=== PATIENT | female | born 1985 | race Caucasian/White ===

== ENCOUNTER 2016-12-15 10:30 | Outpatient (RCR) | payer MEDICAID, SELFPAY | END 2016-12-20 | disposition home or self-care (01) | LOC: DC 10:30 | PROVIDERS: Family Provider Student in an Organized Health Care Education/Training Program; PCP Student in an Organized Health Care Education/Training Program; Visit Provider Obstetrics & Gynecology | DX: O24.410 Gestational diabetes mellitus in pregnancy, diet controlled (principal); Z3A.00 Weeks of gestation of pregnancy not specified; Z71.3 Dietary counseling and surveillance | CPT/HCPCS: 97802; G0108 ==

== ENCOUNTER 2017-05-26 07:15 | Inpatient (IN) | payer MEDICAID, SELFPAY ==
[2017-05-26] VITALS (8 sets, daily range): BP systolic 101–162; BP diastolic 57–87; PULSE 74–90; RESP 16–20; TEMP 36.1–36.6; O2SAT 93–97; BMI 40.2
[2017-05-26] MEDS: Lactated Ringers 1,000 ML 50 ML IV (07:40)
[2017-05-26] MEDS: Oxytocin 30 units/NS 500 ml 30 UNITS/500 ML IV.SOLN IV (07:50)
[2017-05-26 07:51] LABS: Hemoglobin 11.7 g/dl (12.0-15.0); Mean Corp Hgb Conc 33.4 g/gl (32-36); Mean Corpuscular Hgb 29.2 pg (27.0-32.0); Mean Corpuscular Volume 87.3 fL (81-99); Mean Platelet Vol. 9.9 fl (6.2-12.0); Platelet Count 323 K/mm3 (150-450); RBC Distribution Width CV 14.9 % (11.6-14.6); RBC Distribution Width SD 47.1 fl (35.1-43.9); Red Blood Count 4.01 M/mm3 (4.2-5.4); White Blood Count 20.8 K/mm3 (4.4-11.0)
[2017-05-26 07:52] LABS: Scan Indicated on CBC? Y/N NO
[2017-05-26 08:21] LABS: Bedside Glucose 97 mg/dL (70-110)
[2017-05-26] MEDS: Amnioinfusion- 0.9% NS 1,000 ML IV.SOLN. INTRA-UTER (11:00)
[2017-05-26] MEDS: Oxytocin 10 UNITS/ML Vial IM (11:20)
--- NOTE | 2017-05-26 11:30 | PLAC_PTH ---
PATIENT: TRENA LOC: [facility] U#:[id number] AGE/SX: 31/F ROOM: WP001 RE05/26/[address]: Dr. Leatha Kumar MD : [id number] BED: 1 DIS: 05/28/2017 SPEC #: [id number] RECD: 05/26/17 12:02 STATUS: DAYSI JAIRO #: [id number] MONA: 05/26/17 11:[address]: Leatha Kumar DEPT: SURGICAL PATHOLOGY RECD BY: Umesh Fong ENTERED: 05/26/17 13:35 SP TYPE: PLACENTA OTHR DR: Dr. Bertin Pearson, DO Tissues: Placenta, NOS Procedures: Surgery Specimen Level V HEADER OPERATION: Vaginal delivery PRE-OP DIAGNOSIS: Gestational diabetes, TISSUE SUBMITTED: Placenta MICROSCOPIC DIAGNOSIS Zhong placenta (469 gm): Umbilical cord ? trivascular with no inflammation. Placental membranes ? mild chronic deciduitis. Placental disc ? Shane-Salas change and mildly increased intraparenchymal microcalcifications. AM:nuris 05/27/17 MICROSCOPIC DESCRIPTION Slides are reviewed. GROSS DESCRIPTION SPECIMEN: PLACENTA / CLINICAL INFORMATION: A. Weight: 3.227 kg B. Gestational Age: 39 weeks C. Sex: Male PLACENTAL WEIGHT (POST FIXATION): 469 gm PLACENTAL DIMENSIONS: 18 x 13 x 2.8 cm PLACENTAL SHAPE: Usual ovoid PLACENTAL WEIGHT FOR GESTATIONAL AGE: Within 10-99th percentile MEMBRANES - Present A. Insertion: Marginal B. Site of rupture from edge: 4 cm from edge of placental disc C. Color of membrane: [place] D. Abnormalities: None UMBILICAL CORD ? Present. The cord is received in two fragments. The largest fragment contains a true knot. A. Color: [place] B. Insertion: Near central C. Length: 46 cm D. Diameter: 1.3 cm E. Number of vessels: Three F. Abnormalities: None PLACENTAL DISC - Present A. Color of surface: [place] B. surface abnormalities: None C. Maternal cotyledons: Intact with minimal tears D. Attached retro placental clot: No clot E. Cut surface: Dark red and spongy F. Lesions: None G. Separate clot: Absent SECTIONS SUBMITTED: 1. Membrane roll and umbilical cord ( end notched) 2. Placental disc, and maternal surfaces 3. Placental disc, and maternal surfaces 4. Placental disc, and maternal surfaces AM:nuris 05/26/17 TC:3 CPT: 52549
--- NOTE | 2017-05-26 11:45 | PCM.HP.OB ---
History Date of Admission: 05/26/17 Final JENNIFER: 06/02/17 Final JENNIFER Source: US <20 weeks Gestational age: 39 Weeks and 0 Days History of this : 31-year-old 7 para 5 AB 1 female presents at 39 weeks gestation with EDC of 06/02/2017 by LMP confirmed by first trimester ultrasound presents for induction of labor due to gestational diabetes. She is class A1 gestational diabetic, but she has had some elevated blood sugars and has not been lately adherent to the diabetic diet. She denies any headache, visual changes, or epigastric pain. He had good movements and irregular contractions. Past medical history is significant for obesity, nicotine dependence, and vomiting of , gestational diabetes class A1, history of depression, headaches. She also has a history of abnormal Pap smears and gestational hypertension with 1 of her previous pregnancies. Family medical history is noncontributory. Obstetrical history: She has had 5 previous vaginal deliveries and 1 spontaneous miscarriage largest infant was 9 lbs. 1 oz. without complications. Surgical history: D&C for miscarriage Allergies Bleach (Sodium Hypochlorite) Allergy (Verified 07/12/16 09:06) Hives citalopram hydrobromide [From Celexa] Allergy (Verified 07/12/16 09:06) Mood mood changes amoxicillin [Amoxicillin] Adverse Reaction (Verified 07/12/16 09:06) Rash Current Medications Acetaminophen (Tylenol) 325 - 650 mg PO Q4H PRN PRN PRN Reason: PAIN OR FEVER >100.4F Al Hydroxide/Mg Hydroxide (Mylanta Ii) 15 - 30 ml PO Q4H PRN PRN PRN Reason: INDIGESTION Citric Acid/Sodium Citrate (Bicitra) 30 ml PO UD PRN Dextrose (D50w Syringe) 0 gm IV X1 PRN; Protocol PRN Reason: Hypoglycemia Glucagon () 1 mg IM .X1 PRN PRN Reason: Hypoglycemia Lactated Ringer's () 1,000 mls @ 50 mls/hr IV .Q20H [facility] Last Admin: 05/26/17 07:40 Dose: 50 mls/hr Oxytocin/Sodium Chloride () 30 units in 500 mls @ 1 mls/hr IV .Q500H [facility] Last Admin: 05/26/17 07:50 Dose: 1 mls/hr Naloxone HCl 4 mg/ Dextrose 504 mls @ 0 mls/hr IV PRN PRN; Protocol PRN Reason: TO MAINTAIN RR>10 Nalbuphine HCl (Nubain) 5 - 10 mg IV Q3H PRN PRN PRN Reason: PAIN (4-10/10) Nalbuphine HCl (Nubain) 5 mg IV Q3H PRN PRN Reason: ITCHING Stop: 05/27/17 11:00 Naloxone HCl (Narcan) 0.2 mg IV Q1M PRN PRN Reason: RR<10 AND PT UNRESPONSIVE Stop: 05/27/17 11:00 Ondansetron HCl (Zofran) 4 mg IV Q8H PRN PRN PRN Reason: NAUSEA Promethazine HCl (Phenergan (Ll)) 6.25 - 12.5 mg IV Q4H PRN PRN; Protocol PRN Reason: IF NAUSEA PERSISTS Sodium Chloride () 5 - 15 ml IV UD KEELY Smoking Status: Current every day smoker Alcohol: None Drug Use: none Number of Fetus(es): 1 Review of Systems Constitutional: Denies: Chills, Fever Eyes: Denies: Blurred vision Cardiovascular: Denies: Chest Pain Respiratory: Denies: Cough Gastrointestinal: Reports: Abdominal Pain Skin: Denies: Rash Physical Exam General: Alert, Cooperative, No apparent distress Cardiovascular: Regular rate Lungs: Normal air movement Abdomen: Soft, Non Tender, Non-Distended, Appropriate for Gestational Age Extremities:: Other - edema 1+ Estimated gestational size: Appropriate for gestational size Presentation: Cephalic Cervix Dilation (cm): 3 - arom w/ moderate clear fluid Station: -2 Effacement (%): 70 Assessment/Plan 81-year-old 7 para 5 AB 1 female at 39 weeks gestation for induction due to gestational diabetes. May weight is less than 4500 g and pelvis is clinically adequate to expect vaginal delivery. Will proceed with Pitocin and AROM induction of labor. Epidural if desires. Desires sterilization. Will see with OR team and manager immunology if we will be able to accommodate this today after delivery.
--- NOTE | 2017-05-26 11:52 | HP.PCM_ITS ---
History Date of Admission: 05/26/17 Final JENNIFER: 06/02/17 Final JENNIFER Source: US <20 weeks Gestational age: 39 Weeks and 0 Days History of this : 31-year-old 7 para 5 AB 1 female presents at 39 weeks gestation with EDC of 06/02/2017 by LMP confirmed by first trimester ultrasound presents for induction of labor due to gestational diabetes. She is class A1 gestational diabetic, but she has had some elevated blood sugars and has not been lately adherent to the diabetic diet. She denies any headache, visual changes, or epigastric pain. He had good movements and irregular contractions. Past medical history is significant for obesity, nicotine dependence, and vomiting of , gestational diabetes class A1, history of depression, headaches. She also has a history of abnormal Pap smears and gestational hypertension with 1 of her previous pregnancies. Family medical history is noncontributory. Obstetrical history: She has had 5 previous vaginal deliveries and 1 spontaneous miscarriage largest infant was 9 lbs. 1 oz. without complications. Surgical history: D&C for miscarriage Allergies Bleach (Sodium Hypochlorite) Allergy (Verified 07/12/16 09:06) Hives citalopram hydrobromide [From Celexa] Allergy (Verified 07/12/16 09:06) Mood mood changes amoxicillin [Amoxicillin] Adverse Reaction (Verified 07/12/16 09:06) Rash Current Medications Acetaminophen (Tylenol) 325 - 650 mg PO Q4H PRN PRN PRN Reason: PAIN OR FEVER >100.4F Al Hydroxide/Mg Hydroxide (Mylanta Ii) 15 - 30 ml PO Q4H PRN PRN PRN Reason: INDIGESTION Citric Acid/Sodium Citrate (Bicitra) 30 ml PO UD PRN Dextrose (D50w Syringe) 0 gm IV X1 PRN; Protocol PRN Reason: Hypoglycemia Glucagon () 1 mg IM .X1 PRN PRN Reason: Hypoglycemia Lactated Ringer's () 1,000 mls @ 50 mls/hr IV .Q20H [facility] Last Admin: 05/26/17 07:40 Dose: 50 mls/hr Oxytocin/Sodium Chloride () 30 units in 500 mls @ 1 mls/hr IV .Q500H [facility] Last Admin: 05/26/17 07:50 Dose: 1 mls/hr Naloxone HCl 4 mg/ Dextrose 504 mls @ 0 mls/hr IV PRN PRN; Protocol PRN Reason: TO MAINTAIN RR>10 Nalbuphine HCl (Nubain) 5 - 10 mg IV Q3H PRN PRN PRN Reason: PAIN (4-10/10) Nalbuphine HCl (Nubain) 5 mg IV Q3H PRN PRN Reason: ITCHING Stop: 05/27/17 11:00 Naloxone HCl (Narcan) 0.2 mg IV Q1M PRN PRN Reason: RR<10 AND PT UNRESPONSIVE Stop: 05/27/17 11:00 Ondansetron HCl (Zofran) 4 mg IV Q8H PRN PRN PRN Reason: NAUSEA Promethazine HCl (Phenergan (Ll)) 6.25 - 12.5 mg IV Q4H PRN PRN; Protocol PRN Reason: IF NAUSEA PERSISTS Sodium Chloride () 5 - 15 ml IV UD KEELY Smoking Status: Current every day smoker Alcohol: None Drug Use: none Number of Fetus(es): 1 Review of Systems Constitutional: Denies: Chills, Fever Eyes: Denies: Blurred vision Cardiovascular: Denies: Chest Pain Respiratory: Denies: Cough Gastrointestinal: Reports: Abdominal Pain Skin: Denies: Rash Physical Exam General: Alert, Cooperative, No apparent distress Cardiovascular: Regular rate Lungs: Normal air movement Abdomen: Soft, Non Tender, Non-Distended, Appropriate for Gestational Age Extremities:: Other - edema 1+ Estimated gestational size: Appropriate for gestational size Presentation: Cephalic Cervix Dilation (cm): 3 - arom w/ moderate clear fluid Station: -2 Effacement (%): 70 Assessment/Plan 81-year-old 7 para 5 AB 1 female at 39 weeks gestation for induction due to gestational diabetes. May weight is less than 4500 g and pelvis is clinically adequate to expect vaginal delivery. Will proceed with Pitocin and AROM induction of labor. Epidural if desires. Desires sterilization. Will see with OR team and market relationship manager if we will be able to accommodate this today after delivery.
--- NOTE | 2017-05-26 11:52 | PCM.OB.VAG ---
Vaginal Delivery Maternal Presentation: Medically Indicated Induction Method of Induction: Pitocin, Amniotomy Medical Reason for Induction: - - Gest DM Amniotic Membrane Rupture Type: Artificial Amniotic Fluid Description: Clear Final JENNIFER: 06/02/17 Final JENNIFER Source: US <20 weeks Gestational age: 39 Weeks and 0 Days Date of Procedure: 05/26/17 Pre-Operative Diagnosis: labor, GDM A1 Post-Operative Diagnosis: same Surgery/ Procedure Performed: Spontaneous Vaginal Delivery Type of Anesthesia: Epidural Description of Procedure: A vigorous male infant was delivered [CAROLINA] over intact perineum.. The remainder the infant was delivered with maternal pushing and gentle traction only in less than 15 seconds after repositioning the maternal legs. The cord was clamped and cut [after 1 minute]. The was attended to by the waiting nursing staff. The placenta was delivered spontaneously and intact. A true knot ?1 in the cord was visible. A section of cord gases were clamped and cord glasses were collected. The cervix and vagina were intact. Sponge and needle counts were correct. A vaginal sweep was completed by me. Presentation: CAROLINA Placental Delivery Description: Spontaneous Placenta Disposition: [facility] Cord Vessel Description: 3 Vessels Cord Entanglement: True Knot(s) - x1 Drain: Dunbar to straight drain Estimated Blood Loss: 300cc A gender: Male Episiotomy Description: None Laceration: None Medications given after delivery: IV Pitocin Complications: None
[2017-05-26 14:36] LABS: Bedside Glucose 89 mg/dL (70-110)
[2017-05-26] MEDS: Bupivacaine Mpf 0.5% 30 ML VIAL (17:18)
--- NOTE | 2017-05-26 17:26 | PCM.OPRPT ---
Report of Operation Date of Procedure: 05/26/17 Pre-Operative Diagnosis: sterilization request Post-Operative Diagnosis: same Surgery/Procedure Performed:: tubal ligation with filshie clips Description of Surgical Findings:: normal tubes and ovaries electroplating worker: alex Recio Type of Anesthesia:: Epidural/Supplement Anesthesiologist: Tanmay Awan Special Medications: none Specimen's removed: none Drains: none Estimated Blood Loss (mL): 10 Fluids Replaced: 400 cc lR Description of Procedure: Patient was taken to the operating room where she is prepped and draped in dorsal supine position epidural was dosed. She was given some supplemental medications and her IV and half percent Marcaine was used to infiltrate the skin under the umbilicus. 4 cm incision was made under the umbilicus in a U-shaped fashion and carried through to underlying layer fascia with scalpel and Bovie. The fascia was grasped with clamps and tented up and entered sharply with the scalpel. The incision was extended laterally and it was tagged with 0 Vicryl sutures. The patient was placed in Trendelenburg and tilted to one side and the right tube was identified and followed out to the fimbriated end. It was then tented up with a Leming clamp and the Filshie clip was placed across the tubal lumen ensuring that the entire tubal lumen was contained within the clip. It was clamped down slowly and steadily and gentle pressure was held for 5 seconds and then the clip applicator was removed gently. Adequate placement was noted and the site was hemostatic. The procedure is performed on the contralateral side and again excellent placement was noted is near to the cornual insertion of the tube is possible. The site was hemostatic. The fascia was then closed with 0 Vicryl suture in a running standard fashion. Subcutaneous tissue was hemostatic and the skin was closed in subcuticular fashion. I performed the entire procedure with assistance. The needle counts were correct. Steri-Strips and bandage were placed on by the surgical scrub the patient was taken to the recovery room in stable condition. Grafts/Implants Used: filshie clips - Complications none - Admit VTE Documentation VTE Present on Admission: No VTE Mechan Device Prophylaxis: SCD's VTE Pharm Prophylaxis ordered?: No Reason prophylaxis not ordered:: Procedure Not Indicated
--- NOTE | 2017-05-26 17:32 | OP.PCM_ITS ---
Report of Operation Date of Procedure: 05/26/17 Pre-Operative Diagnosis: sterilization request Post-Operative Diagnosis: same Surgery/Procedure Performed:: tubal ligation with filshie clips Description of Surgical Findings:: normal tubes and ovaries outpatient surgery rn: alex Recio Type of Anesthesia:: Epidural/Supplement Anesthesiologist: Tanmay Awan Special Medications: none Specimen's removed: none Drains: none Estimated Blood Loss (mL): 10 Fluids Replaced: 400 cc lR Description of Procedure: Patient was taken to the operating room where she is prepped and draped in dorsal supine position epidural was dosed. She was given some supplemental medications and her IV and half percent Marcaine was used to infiltrate the skin under the umbilicus. 4 cm incision was made under the umbilicus in a U- shaped fashion and carried through to underlying layer fascia with scalpel and Bovie. The fascia was grasped with clamps and tented up and entered sharply with the scalpel. The incision was extended laterally and it was tagged with 0 Vicryl sutures. The patient was placed in Trendelenburg and tilted to one side and the right tube was identified and followed out to the fimbriated end. It was then tented up with a Ami clamp and the Filshie clip was placed across the tubal lumen ensuring that the entire tubal lumen was contained within the clip. It was clamped down slowly and steadily and gentle pressure was held for 5 seconds and then the clip applicator was removed gently. Adequate placement was noted and the site was hemostatic. The procedure is performed on the contralateral side and again excellent placement was noted is near to the cornual insertion of the tube is possible. The site was hemostatic. The fascia was then closed with 0 Vicryl suture in a running standard fashion. Subcutaneous tissue was hemostatic and the skin was closed in subcuticular fashion. I performed the entire procedure with assistance. The needle counts were correct. Steri-Strips and bandage were placed on by the surgical scrub the patient was taken to the recovery room in stable condition. Grafts/Implants Used: filshie clips - Complications none - Admit VTE Documentation VTE Present on Admission: No VTE Mechan Device Prophylaxis: SCD's VTE Pharm Prophylaxis ordered?: No Reason prophylaxis not ordered:: Procedure Not Indicated
[2017-05-26] MEDS: oxyCODONE 5 MG Tablet 10 MG PO (19:00)
--- NOTE | 2017-05-26 20:49 | NURSING ---
Dr. Kumar updated on elevated bp's x3, and pt wanting to go outside to smoke. Orders given to give Labatelol 100mg PO and then recheck bp in 30 mins, if stable ok to go outside to smoke.
[2017-05-26] MEDS: Labetalol 100 MG Tablet PO (20:53)
--- NOTE | 2017-05-26 23:07 | DCINST_ITS ---
Discharge Diet: No Restrictions Discharge Activity: Return to Normal Activity, May not drive while taking narcotic pain medications., May Shower May shower in (days): 0 May resume sexual activity in: 4-6 weeks Additional Activity Instructions:: Nothing in the vagina for 4-6 weeks. You may return to work/school in 6 weeks. Call your doctor if your incision/area has: Continuous Slow Oozing, Sudden Increased Bleeding, Increased Pain/ Swelling, Increased Redness, Foul Smelling Discharge Remove Dressing in (days):: 7 - steri strips off in 7 days Cleanse incision/area with: Soap & Water Additional Instructions: If you experience any of the following, contact your healthcare provider. * Bleeding that soaks a pad every hour for 2 hours * Fever 100.4 or higher * Unrelieved incision or abdominal pain * Swelling, redness, discharge or bleeding from your incision or episiotomy site * Your incision begins to separate * Problems urinating (including inability to urinate or burning while urinating) . * Visual changes * Severe headache * Flu-like symptoms * Pain or redness in one of both of your breasts * Pain, warmth, tenderness or swelling in your legs, especially the calf area * Frequent nausea and vomiting * Symptoms of depression or anxiety If you experience any of the following, call 911 or go to the nearest Emergency Room. * Chest pain * Problems breathing * Seizure activity * Partial or complete paralysis of a body part, slurred speech, weakness or drooping of the face, or a sudden inability to walk or hold your balance Allergies/Adverse Reactions: Allergies Bleach (Sodium Hypochlorite) Allergy (Verified 07/12/16 09:06) Hives citalopram hydrobromide [From Celexa] Allergy (Verified 07/12/16 09:06) Mood mood changes amoxicillin [Amoxicillin] Adverse Reaction (Verified 07/12/16 09:06) Rash Medications to take at Discharge Fluoxetine HCl 40 mg PO DAILY 06/30/16 Propranolol HCl [Inderal LA (Beta Vandana)] 60 mg PO DAILY 06/30/16 Folic Acid 05/26/17 Ibuprofen [Motrin] 600 mg PO Q6H PRN #60 tab 05/26/17 Oxycodone HCl/Acetaminophen [Percocet 5/325] 1 - 2 tablet PO Q8 PRN 4 Days #14 tablet 05/26/17 The following prescriptions were given: Oxycodone HCl/Acetaminophen [Percocet 5/325] 1 - 2 tablet PO Q8 PRN 4 Days #14 tablet PRN Reason: Pain Ibuprofen [Motrin] 600 mg PO Q6H PRN #60 tab PRN Reason: Pain Please Follow Up With: Leatha Kumar MD - [phone] When: Call to make an appointment with your doctor in 6 weeks. If you had elevated Blood Pressure or 4th degree laceration you will need to be seen in 2 weeks. Primary Care Physician: Bertin Pearson DO [Primary Care Provider] -
[2017-05-27 00:17] VITALS: BP 133/64
[2017-05-27 02:00] VITALS: BP 130/60; PULSE 79; RESP 20; TEMP 36.6
[2017-05-27] MEDS: Senna/Docusate Sodium 1 Tablet PO (03:23)
[2017-05-27] MEDS: oxyCODONE 5 MG Tablet 10 MG PO ×4 (03:24→22:11)
--- NOTE | 2017-05-27 09:09 | PN.OBGYN_ITS ---
Subjective: pain controlled, average lochia, no N/V - Physical Exam General: Alert, Cooperative, No apparent distress Abdomen: Soft, Distended - moderately, Tender - appropriately Extremities: Edema - 1+ Skin: Incision - bandage clean, dry and intact Vital Signs Temp Pulse Resp BP Pulse Ox 97.9 F 79 20 H 130/60 H 97 05/27/17 02:00 05/27/17 02:00 05/27/17 02:00 05/27/17 02:00 05/26/17 19:36 Oxygen Delivery Method Room Air Weight: 116.573 kg Body Mass Index (BMI) 40.2 Intake and Output for Last 24 Hours 05/25/17 05/26/17 05/27/17 23:59 23:59 23:59 Intake Total 1200 / 1200 Output Total 950 / 950 Balance 250 / 250 Laboratory Tests Past 24 Hrs 05/26/17 07:40 Blood Type O POSITIVE Antibody Screen NEGATIVE POC Glucose 05/26/17 14:30 POC Glucose 89 Assessment/Plan POD#1 s/p tubal, PPD#1 s/p routine care infant in [facility] for hypogylcemia
[2017-05-27 10:05] VITALS: BP 143/89; PULSE 91; RESP 20; TEMP 35.9
[2017-05-27] MEDS: Labetalol 100 MG Tablet PO ×2 (10:05→22:10)
[2017-05-27] MEDS: FLUoxetine 20 MG Capsule 40 MG PO (10:06)
[2017-05-27] MEDS: Naproxen 250 MG Tablet PO (11:30)
[2017-05-27 14:05] VITALS: BP 133/83; PULSE 89; TEMP 35.9
[2017-05-27 15:48] LABS: Pathology Specimen OB SEE PATHOLOGY REPORT
[2017-05-27 20:45] VITALS: BP 138/65; PULSE 84; RESP 18; TEMP 36.4; O2SAT 97
[2017-05-28 02:10] VITALS: BP 140/58; PULSE 89; RESP 18; TEMP 36.4; O2SAT 97
--- NOTE | 2017-05-28 07:32 | DCINST_ITS ---
Discharge Diet: No Restrictions Discharge Activity: Return to Normal Activity, May not drive while taking narcotic pain medications., May Shower May shower in (days): 0 May resume sexual activity in: 4-6 weeks Additional Activity Instructions:: Nothing in the vagina for 4-6 weeks. You may return to work/school in 6 weeks. Call your doctor if your incision/area has: Continuous Slow Oozing, Sudden Increased Bleeding, Increased Pain/ Swelling, Increased Redness, Foul Smelling Discharge Remove Dressing in (days):: 7 - steri strips off in 7 days Cleanse incision/area with: Soap & Water Additional Instructions: If you experience any of the following, contact your healthcare provider. * Bleeding that soaks a pad every hour for 2 hours * Fever 100.4 or higher * Unrelieved incision or abdominal pain * Swelling, redness, discharge or bleeding from your incision or episiotomy site * Your incision begins to separate * Problems urinating (including inability to urinate or burning while urinating) . * Visual changes * Severe headache * Flu-like symptoms * Pain or redness in one of both of your breasts * Pain, warmth, tenderness or swelling in your legs, especially the calf area * Frequent nausea and vomiting * Symptoms of depression or anxiety If you experience any of the following, call 911 or go to the nearest Emergency Room. * Chest pain * Problems breathing * Seizure activity * Partial or complete paralysis of a body part, slurred speech, weakness or drooping of the face, or a sudden inability to walk or hold your balance Allergies/Adverse Reactions: Allergies Bleach (Sodium Hypochlorite) Allergy (Verified 07/12/16 09:06) Hives citalopram hydrobromide [From Celexa] Allergy (Verified 07/12/16 09:06) Mood mood changes amoxicillin [Amoxicillin] Adverse Reaction (Verified 07/12/16 09:06) Rash Medications to take at Discharge Fluoxetine HCl 40 mg PO DAILY 06/30/16 Propranolol HCl [Inderal LA (Beta Vandana)] 60 mg PO DAILY 06/30/16 Folic Acid 05/26/17 Ibuprofen [Motrin] 600 mg PO Q6H PRN #60 tab 05/26/17 Oxycodone HCl/Acetaminophen [Percocet 5/325] 1 - 2 tablet PO Q8 PRN 4 Days #14 tablet 05/26/17 Ibuprofen [Motrin] 600 mg PO Q6H PRN #60 tab 05/28/17 Oxycodone HCl/Acetaminophen [Percocet 5/325] 1 - 2 tablet PO Q6H PRN PRN 3 Days #12 tablet 05/28/17 The following prescriptions were given: Oxycodone HCl/Acetaminophen [Percocet 5/325] 1 - 2 tablet PO Q6H PRN PRN 3 Days #12 tablet PRN Reason: Pain Oxycodone HCl/Acetaminophen [Percocet 5/325] 1 - 2 tablet PO Q8 PRN 4 Days #14 tablet PRN Reason: Pain Ibuprofen [Motrin] 600 mg PO Q6H PRN #60 tab PRN Reason: Pain Ibuprofen [Motrin] 600 mg PO Q6H PRN #60 tab PRN Reason: Pain Please Follow Up With: Leatha Kumar MD - [phone] When: Call to make an appointment with your doctor in 6 weeks. If you had elevated Blood Pressure or 4th degree laceration you will need to be seen in 2 weeks. Primary Care Physician: Bertin Pearson DO [Primary Care Provider] -
--- NOTE | 2017-05-28 07:32 | PCM.PN.OB ---
Subjective: pain controlled, average lochia, - Physical Exam General: Alert, Cooperative, No apparent distress Abdomen: Soft, Distended - moderately, Tender - appropriately Extremities: Edema - 1+ Skin: Incision - bandage clean, dry and intact Vital Signs Temp Pulse Resp BP Pulse Ox 97.5 F L 89 18 140/58 H 97 05/28/17 02:10 05/28/17 02:10 05/28/17 02:10 05/28/17 02:10 05/28/17 02:10 Oxygen Delivery Method Room Air Weight: 116.573 kg Body Mass Index (BMI) 40.2 Intake and Output for Last 24 Hours 05/26/17 05/27/17 05/28/17 23:59 23:59 23:59 Intake Total 1200 / 1200 Output Total 950 / 950 Balance 250 / 250 Assessment/Plan POD#2 s/p tubal PPD#2 s/p doing well routine care d/c to [facility]
[2017-05-28] MEDS: oxyCODONE 5 MG Tablet 10 MG PO (08:07)
[2017-05-28 08:18] VITALS: BP 141/88; PULSE 82; RESP 16; TEMP 36.2
[2017-05-28] MEDS: FLUoxetine 20 MG Capsule 40 MG PO (10:58)
[2017-05-28] MEDS: Propranolol LA 60 MG Capsule PO (10:58)
[2017-05-28 14:30] VITALS: BP 154/77; PULSE 83; RESP 18; TEMP 36.6
--- NOTE | 2017-05-28 16:00 | CASEMGMT ---
Social Work - Labor and Delivery Unit Social Work Assessment completed today. Reason for referral: Verbal referral from nursing staff regarding mother of baby (MOB) history of depression, currently on medication. Second notification from nursing staff that MOB triggered need for PHQ9 due to answers given on PHQ2. PSYCHOSOCIAL HISTORY: Presenting situation: Patient/mother of baby (MOB) delivered 6th baby at [facility]. MOB with a PHQ9 score of 8 at this time, with a no answer to thoughts of suicide. MOB's baby, Daniel Nickerson, was admitted to [facility] after for hypoglycemia issues. History obtained from: Medical record and MOB. Educated MOB that this senior writer is the social work nurse for the labor and delivery unit at the hospital of delivery, and for continuity of care for families on the [facility] this senior writer also provides the social work to the [facility]. Educated MOB that assessment information being gathered for both [facility] and [facility] Household composition: MOB, father of baby (FOB) Gonzalez Portillo, and Daniel's 5 older siblings. MOB reports home situation is safe and adequate. Patient's parent/guardian status: MOB (age 33) and FOB (age 37) have been together for 3 years. MOB denies any safety concerns in this marriage, denies any form of abuse. Daniel is the second child for MOB and FOB together. Minor children in the home are: Cate (born 10/1999) Channing (born 2004) Tayler (born 12/2005) Lisbet (born 06/2008) Jeffry Portillo (born 12/29/2014) The 4 older children have the same father, and go to visit their father every other weekend. Medical History: MOB is G7, P5 to 6 after delivering Daniel. History of one previous miscarriage in 2003. care started at 10 weeks gestation. Daniel was born weighing 7 pounds 2 ounces, with Apgars of 6 and 8 at 1 and 5 minutes of life. MOB with gestational diabetes this . Educational Status: MOB reports graduated from high school, denies any problems with learning, reading, or writing. 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 Supplies: MOB reports to have needed supplies including crib, bassinet, car seat, formula, bottles, clothing, diapers, and wipes. Childcare/Caregiver(s): MOB will be primary caregiver to . Transportation: No reported issues. Programs/Agencies Involved: S for food and medical. Involved with WIC. Denies any current or past involvement with children services. History: The counseling center for counseling, not current. Behavioral Health Issues: MOB reports history of depression and anxiety since 2008. MOB admits to depression after each , so knows there is strong likelihood of this happening again. MOB denies any history of suicidal thoughts, plans, or attempts; denies any such thoughts during or since delivery. MOB reports has tried counseling in the past, but did not find this really to be helpful. MOB admits has been having some depression during this , that this was the hardest for MOB of all the pregnancies. MOB currently on Prozac and Buspar, and plans to remain on this medication in the period. MOB reports to feel currently managing depression and anxiety. MOB denies any substance use or abuse issues. MOB reports to have a sister who is a heroin addict, which reinforces to MOB importance of not getting involved in substance use. Family Stressors: MOB is now a mother to 6 children, reports limited support from family and friend, but that does get some support from FOB and MOB's older children. MOB reports to have stresses at times, vague as to what stressors may be, but denies any current stressors at this time. MOB indicates that times for self is one thing that is limited for MOB, usually getting time alone each day when the kids go to bed. Support Systems: MOB reports FOB is a support, and MOB's older children are a support. MOB reports there are family members around, but MOB does not rely on them. MOB reports to have a neighbor who has also offered to help out. Assessment MOB cooperative with social work visit, answered questions. MOB acknowledges to have a limited support, and indicates time is something that MOB doesn't perceive to have, to do extra things for self. MOB reports to feel managing her depression at this time, reports plan to stay on medication, as well denies any thoughts of suicide. MOB reports depression history came in the form of feeling overwhelmed and usually lasted for a couple of months, but depends on what else is going on at the time in personal life. At this time MOB is not reporting any new or current stressors, other than worry for Baby Daniel and when may be able to go home. MOB did hold appropriate eye contact, appropriate affect to content. MOB reports receptivity to having some information on community resources, and did appear interested when social work nurse educated MOB to some online resources and supports for depression, which MOB could access from home and not have to worry about childcare. MOB not interested in referral to counseling at this time. Plan Will follow up with MOB on 05-29-17 with resource information, as MOB remains in a courtesy room on the labor and delivery unit while baby is hospitalized in the [facility]. -SNEHA Ross, INSURANCE HEALTHCARE CONSULTANT
--- NOTE | 2017-05-29 12:10 | CASEMGMT ---
Social Work - Labor and Delivery Unit Reason for follow-up:Communication with patient/mother of baby (MOB) Martina Nickerson Summary of Family/Staff/Agency Contact: Followed up with MOB to provide resources for community support after discharge. Met with MOB at infant's bedside to discuss and review local mom's support group, community action program services, and home based therapy services through [email or web address], should MOB ever want to pursue counseling again. Assessment: MOB holding baby, attentive, smiling at baby, and working on feeding baby a bottle. MOB with appropriate affect and mood to content. MOB expressed interest in resources given today. MOB denies other needs, reports hope for baby to be discharged later today, and reports to feel ready for discharge. Plan: Continue to follow patient and family, No further intervention indicated MOB has been given resource lists for services in Psychiatric MOB has been given a packet on depression and services/support for such Information on home based therapy options locally Information on home based early intervention services for baby and toddler sibling; moms support group information also given -SNEHA Ross, POLICE GUARD
== END 2017-05-28 14:30 | disposition home or self-care (01) | DRG 374 ==
PROVIDERS: Admitting Provider Obstetrics & Gynecology; Family Provider Student in an Organized Health Care Education/Training Program; PCP Student in an Organized Health Care Education/Training Program; Visit Provider Obstetrics & Gynecology
PROC: 0UL70ZZ Occlusion of Bilateral Fallopian Tubes, Open Approach (ICD-10-PCS; principal; 2017-05-26 15:45)
DX: O99.334 Smoking (tobacco) complicating childbirth (principal); Z68.41 Body mass index [BMI] 40.0-44.9, adult; O24.429 Gestational diabetes mellitus in childbirth, unspecified control; F41.9 Anxiety disorder, unspecified; O99.344 Other mental disorders complicating childbirth; O99.214 Obesity complicating childbirth; O69.2XX0 Labor and delivery complicated by other cord entanglement, with compression, not applicable or unspecified; Z3A.39 39 weeks gestation of pregnancy; Z37.0 Single live birth; Z79.899 Other long term (current) drug therapy
CPT/HCPCS: 59025; 59050; 82962; 85027; 86850; 86900; 88307; 99218; J7030; J7120; G0378; J2405

== ENCOUNTER 2017-12-15 13:03 | Outpatient (RCR) | payer MEDICAID, SELFPAY ==
--- NOTE | 2017-12-15 14:03 | HP.PTEVAL ---
Patient's Visit Information JEAN MARIE JERONIMO is a 32 year old F referred to Physical Therapy by Mireya Burton NP with a diagnosis of TENDONITIS. Date of Evaluation: 12/15/17 Physical Therapist: Megan Clemens - Visit Plan Frequency: 2-3x /Week Duration: 4-6 Weeks Plan: POSTURE CORRECTION/STRENGTHENING, INSTRUCTION IN APPROPRIATE BODY MECHANICS AND ACTIVITY MODIFICATIONS. RIGHT UE ROM, STRETCHING AND STRENGTHENING. HEP INSTRUCTION. - Subjective Subjective: Diagnosis: RIGHT ARM TENDONITIS. 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 Disability: NO - FILED THOUGH FOR OTHER HEALTH ISSUES. Present symptoms: RIGHT SHOULDER PAIN THAT SHOOTS DOWN ARM TO FOREARM (NOT HAND) AND UP INTO NECK - ITS HORRIBLE. RIGHT HAND GOES TO SLEEP. WHOLE RIGHT UE GOES NUMB. Present since: ABOUT 6 MONTHS AGO. Pain Scale: Worst - 8/10Least - 5/10. Currently: 09/29. Commenced as a result of: NO APPARENT REASON. WOKE UP WITH IT ONE MORNING AND PATIENT REPORTS SHE THOUGHT SHE JUST SLEPT ON IT WRONG. Symptoms at onset: RIGHT SHOULDER. Worse: USING IT FOR ANYTHING, DRIVING/USING THE STEARING WHEEL. LIFTING, PUSHING, PULLING, EVEN LETTING ARM HANG. Better: NOTHING. Disturbed sleep: YES. Previous history/Previous treatment: NO HISTORY OF RIGHT ARM PROBLEMS IN THE PAST. PATIENT ALSO DENIES ANY HISTORY OF NECK PROBLEMS OR TREATMENTS. Dizziness: SOMETIMES. Tinnitis: A LITTLE BIT. Nausea: SOMETIMES - PATIENT REPORTS IT IS MAYBE FROM SOME OF HER MEDICATIONS. ALSO WHEN HER ARM PAIN GETS BAD IT MAKES HER SICK TO HER STOMACH. Difficulty Swollowing: NO. Gait: INDEP GAIT WITHOUT ASSISTIVE DEVICES. Accidents: NO. Unexplained weight loss: NO. Imaging: RIGHT ARM X-RAY ABOUT A MONTH AGO AT [facility]. PATIENT REPORTS THEY TOLD HER THEY DIDN'T SEE ANYTHING ON THE X-RAY. NO MRI. NO NECK X-RAY. PMH/Recent major surgery: ANXIETY, DEPRESSION, HTN, CHRONIC MIGRAINES. NO MAJOR SURGERIES. OTHER: PATIENT REPORTS SHE HAS BEEN PRESCRIBED MALOXACAM BUT SHE ISN'T TAKING IT BECAUSE IT DOESN'T WORK. PATIENT STATES SHE WAS FIRST SEEN FOR THIS IN URGENT CARE. - Objective Sitting Posture/Standing Posture: POOR. Active Correction of posture: BETTER - RELIEVES RIGHT UE SX'S A LITTLE BIT PER PATIENT REPORT. Other Observations: INDEP GAIT INTO PT HOLDING RIGHT UE AGAINST ABDOMEN. PATIENT OBSERVED RUBBING RIGHT SHOULDER OFF AND ON DURING SESSION. Motor deficit: (PATIENT IS RIGHT HAND DOMINANT). RIGHT UE WFL. 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 PATIENT DENIES PAIN WITH LUE TESTING. Sensory deficit: DECREASED LIGHT TOUCH SENSATION OF RIGHT ARM AND FOREARM COMPARED TO LEFT BUT LIGHT TOUCH OF DAYANNA HANDS IS INTACT AND SYMMETRICAL. ROM deficit: LEFT UE WFL. RIGHT SHOULDER ACTIVE FLEX IN SITTING TO 140 DEG. ACTIVE RIGHT SHOULDER ABD TO 115. PAIN DURING MVMT AND AT END RANGE WITH RIGHT SHOULDER ROM TESTING. PATIENTS AROM OF HER RIGHT ELBOW, FOREARM, WRIST AND HAND IS FULL BUT PATIENT C/O INCRASED RIGHT ARM PAIN WITH AROM TESTING OF RIGHT ELBOW, FOREARM AND WRIST. Reflexes: LEFT UE 2/3,. Dural Signs: POSSIBLE POSSITIVE RIGHT UE BUT DIFFICULT TO TEST DUE TO PATIENTS C/O'S OF PAIN. Cervical Mvmt Loss: Flex: NIL +. Pro: NIL. Ext: MIN +. Ret: MOD +. RSB: MIN +. LSB: NIL. R Rot: NIL. L Rot: MIN +. (+ = PRODUCES INCREASED PAIN IN RIGHT UE). Postural strength: POOR. Palpation: PATIENT WITH COMPLAINT OF TENDERNESS WITH PALPATION THROUGHOUT THE ENTIRE RIGHT UE EXCEPT HER HAND. SHE IS ALSO TENDER WITH LIGHT PALPATION FROM HER UPPER THORACIC SPINE INTO HER CERVICAL SPINE AND THE ENTRIE RIGHT SHOULDER REGION AND UPPER ARM. SHE IS NOT TENDER ALONG THE OCCIPUT. OTHER: INSTRUCTED PATIENT TO RETURN TO THE DOCTOR IF HER SX'S WORSEN. DISTRACTION: UNABLE TO TEST CERVICAL DISTRACTION DUE TO PATIENTS C/O INCREASED PAIN JUST WITH HAND PLACEMENT FOR TESTING. - Goals Goal 1:: DECREASE C/O NECK AND RIGHT UE SX'S. Goal Time Frame: 4-6 Weeks Goal 2:: IMPROVE SLEEP, RIGHT UE REACHING, PUSHING, PULLIING AND LIFTING FUNCTION. Goal Time Frame: 4-6 Weeks Goal 3:: INSTRUCT IN PROPHYLAXIS Goal Time Frame: 4-6 Weeks - Rehabilitation Potential Rehabilitation Potential: Fair - Anticipated Interventions Patient/Client Instruction: Educate patient on: Condition, Plan of Care, Risk Factors, Benefits of Fitness Program For the Purpose of:: To improve self management Therapeutic Exercise to Include: Strength training, Body mechanics, Postural training, Active ROM, Scapular Strength/Stabilization For the Purpose of:: To decrease pain, To increase ROM, To improve muscle performance and motor function, To increase tolerance to activity/condition/position, To improve ability of physical actions for home/community/work/leisure Manual Therapy Techniques to Include: Passive ROM, Soft tissue mobilization For the Purpose of:: To decrease pain, To increase ROM, To improve nutrient delivery to tissue TENS: Yes IF ES: Yes Cryotherapy (ice pack, ice massage): Yes Thermo therapy (hot pack): Yes Ultrasound (thermal/non thermal): Yes For the Purpose of:: To decrease pain, To increase ROM, To improve nutrient delivery to tissue Thank you for the opportunity to evaluate your patient. For Medicare and Medicare HMO plans, please review the plan of care and approve it. It will need to be FAXED BACK to us at [phone] for Medicare purposes. Please let me know if there are questions or concerns regarding this plan of care. Physician Signature: Date:
--- NOTE | 2018-01-07 11:48 | HP.PTDCNRP_ITS ---
HP - Discharge Summary (1) - Patient Information JEAN MARIE JERONIMO was seen in my office for initial evaluation on 12/15/17. The following Plan of Care was established for this patient: Initial Frequency: 2-3x /Week Initial Duration: 4-6 Weeks - Anticipated Interventions Patient/Client Instruction: Educate patient on: Condition, Plan of Care, Risk Factors, Benefits of Fitness Program For the Purpose of:: To improve self management Therapeutic Exercise to Include: Strength training, Body mechanics, Postural training, Active ROM, Scapular Strength/Stabilization For the Purpose of:: To decrease pain, To increase ROM, To improve muscle performance and motor function, To increase tolerance to activity/condition/position, To improve ability of physical actions for ho me/community/work/leisure Manual Therapy Techniques to Include: Passive ROM, Soft tissue mobilization For the Purpose of:: To decrease pain, To increase ROM, To improve nutrient delivery to tissue TENS: Yes IF ES: Yes Cryotherapy (ice pack, ice massage): Yes Thermo therapy (hot pack): Yes Ultrasound (thermal/non thermal): Yes For the Purpose of:: To decrease pain, To increase ROM, To improve nutrient delivery to tissue This patient was last seen in our office . Pertinent comments regarding their Physical therapy will appear below: This patient has not returned to Physical Therapy and is appropriate to return to MD for further follow-up as needed. At this point I will be discontinuing this patient from physical therapy. I would be happy to see this patient again in the future if found appropriate by the physician. Thank you! Megan Clemens
== END 2017-12-15 19:00 | disposition home or self-care (01) ==
LOC: PT 13:03
PROVIDERS: Family Provider Student in an Organized Health Care Education/Training Program; PCP Student in an Organized Health Care Education/Training Program; Visit Provider Nurse Practitioner Adult Health
DX: M77.9 Enthesopathy, unspecified (principal)
CPT/HCPCS: 97162; 97530

== ENCOUNTER 2018-07-15 05:34 | Day surgery (SDC) | payer MEDICAID, SELFPAY ==
--- NOTE | 2018-06-14 17:01 | PCM.HP.BLA ---
History and Physical Date of Admission: 06/24/18 Pre-Op History and Physical HPI: The patient is a 32 year old female presenting for pre-operative visit. She is scheduled for LAVH, for LAVH on 06/24/18. Procedure discussed along with risks, benefits and complications. Other alternatives discussed for management. Consent form signed? Yes. PAST MEDICAL HISTORY Diagnosis Date ? Anxiety ? Dysthymic disorder Depression (non-psychotic) ? Gestational diabetes mellitus, class A1 11/17/2016 ? gestational hypertension ? Pap smear abnormality of cervix with ASCUS favoring benign 02/05/2015 ? depression ? Tobacco abuse 04/12/2012 PAST SURGICAL HISTORY Procedure Laterality Date ? D&C, DIAG AND/OR THERAPEUTIC 2004 Dilation & curettage ? TUBAL LIGATION 2018 w/ Filshie clips Current Outpatient Medications: propranolol ER (INDERAL LA) 60 mg 24 hr capsule Take 1 capsule by mouth once daily. Disp: 90 capsule Rfl: 1 albuterol HFA (VENTOLIN HFA) 90 mcg/actuation inhaler Inhale 2 Puffs as instructed every 4 hours as needed for Wheezing/Shortness of Breath. Disp: 1 Inhaler Rfl: 5 naproxen (NAPROSYN) 500 mg tablet Take 1 tablet by mouth twice daily as needed. Take with food. Disp: 60 tablet Rfl: 0 loratadine (CLARITIN) 10 mg tablet TAKE 1 TABLET ONCE DAILY NEEDED FOR ALLERGY SYMPTOMS Disp: 30 tablet Rfl: 3 rosuvastatin (CRESTOR) 5 mg tablet Take 1 tablet by mouth daily at bedtime. Disp: 30 tablet Rfl: 5 amitriptyline (ELAVIL) 10 mg tablet Take 1 tablet by mouth daily at bedtime. Disp: 30 tablet Rfl: 3 rOPINIRole (REQUIP) 0.5 mg tablet 1/2 tablet at bedtime for 2 days; then increase to a whole pill at bedtime X 5 days. If still not controlled, can take 2 pills at bedtime. Disp: 60 tablet Rfl: 1 Cholecalciferol, Vitamin D3, 5,000 unit cap Take 1 capsule by mouth once daily. Disp: 90 capsule Rfl: 1 fluticasone (FLONASE) 50 mcg/actuation nasal spray Use 2 Sprays in each nostril once daily. Rinse mouth after use. Disp: 1 Bottle Rfl: 0 FLUoxetine HCl (PROZAC) 40 mg capsule TAKE 1 CAPSULE EVERY DAY Disp: 90 capsule Rfl: 1 SUMAtriptan (IMITREX) 50 mg tablet take 1 tablet as needed. May repeat in 2 hours if needed Disp: 9 tablet Rfl: 1 No current facility-administered medications for this visit. 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 PT COUNSELED ADL RESPONSE: No ADL RESPONSE: No ADL RESPONSE: Yes DOES SBE. PT COUNSELED Social History Narrative had vasectomy for BC FAMILY HISTORY: FAMILY HISTORY Problem Relation Age of Onset ? Thyroid Mother Hypothyroidism ? Diabetes Mother ? other (cellulitis) Mother ? Diabetes Maternal Grandfather ? Hypertension Maternal Grandfather ? Heart Maternal Grandfather PACEMAKER ? Hypertension Maternal Aunt REVIEW OF SYMPTOMS: GENERAL: denies fevers or chills ENDOCRINOLOGY: has not been on steroids Cardiology : denies palpitations or chest pain Respiratory: denies SOB or cough Hematology: denies history of prolonged bleeding or easy bruising or VTE Allergy: Denies history of personal or family history of allergy to anesthesia PHYSICAL EXAMINATION: VITALS: Height 5' 7.5 (1.715 m), weight 254 lb (115.2 kg), last menstrual period 05/03/2018, not currently . GENERAL: The patient is well nourished, well hydrated in no acute distress. , The patient is oriented to time, place, and person. NECK: Supple. No lynphadenopathy, normal thyroid, no thyromegaly. LUNGS: Clear to auscultation bilaterally. no wheezes, rhonchi or rales HEART: Regular rate and rhythm, Normal heart sounds and No murmurs or gallops GENITALIA: Normal external genitalia, Urethral meatus normal, Bladder nontender, normal vagina and normal vaginal tone, normal cervix, normal uterus, size and consistency, normal adnexa without masses or tenderness, perineum WNL and first degree uterine prolapse IMPRESSION: menorrhagia, dysmenorrhea PLAN: The risks/benefits/alternatives and personal involved for the planned LAVH were reviewed with the patient. Her questions were answered to her satisfaction and she desires to proceed. Consent was signed. I reviewed with her postop instructions and expectations. I have reviewed and updated past medical and surgical history, medications and allergies H&P performed in my office 06/09/18 Leatha Kumar M.D.
--- NOTE | 2018-07-14 13:48 | PCM.HP.BLA ---
History and Physical Date of Admission: 07/15/18 32-year-old female who's completed her childbearing and undergone a previous tubal ligation presents today for hysterectomy due to chronic pelvic pain, dysmenorrhea and menorrhagia. She's had to take tramadol along with anti-inflammatories because of the severity of her pain. Seems to be getting worse with each cycle. She denies any fevers or chills, abnormal vaginal discharge, itching or burning. Review of systems: General: No fevers or chills Heme: No history of prolonged bleeding or easy bruising Cardiac: No chest pain or palpitations Respiratory: No shortness of breath or chest pain. Physical exam: Gen.: Awake and alert in no acute distress Skin: Warm dry and intact Lungs: Clear to all station bilaterally Heart: S1 and S2 regular rate and rhythm PIT SUPERVISOR: Not repeated from previous exam see previous H&P Assessment and plan: 32-year-old female who's completed her childbearing and undergone previous sterilization procedure presents for definitive therapy for her chronic pelvic pain, dysmenorrhea and menorrhagia in the form of total vaginal hysterectomy. Possible uterosacral ligament fixation for uterine prolapse. Risk benefits and alternatives to this is been discussed with the patient, questions were answered to her satisfaction and consent was signed. No clinically relevant updates since entered. Plan TVH, possible USLF and cystoscopy.
--- NOTE | 2018-07-14 13:51 | HP.PCM_ITS ---
History and Physical Date of Admission: 07/15/18 32-year-old female who's completed her childbearing and undergone a previous tubal ligation presents today for hysterectomy due to chronic pelvic pain, dysmenorrhea and menorrhagia. She's had to take tramadol along with anti- inflammatories because of the severity of her pain. Seems to be getting worse with each cycle. She denies any fevers or chills, abnormal vaginal discharge, itching or burning. Review of systems: General: No fevers or chills Heme: No history of prolonged bleeding or easy bruising Cardiac: No chest pain or palpitations Respiratory: No shortness of breath or chest pain. 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 Possible uterosacral ligament fixation for uterine prolapse. Risk benefits and alternatives to this is been discussed with the patient, questions were answered to her satisfaction and consent was signed. No clinically relevant updates since entered. Plan TVH, possible USLF and cystoscopy.
[2018-07-15] VITALS (9 sets, daily range): BP systolic 92–133; BP diastolic 52–93; PULSE 61–102; RESP 16–18; TEMP 35.7–37.6; O2SAT 95–100; BMI 40.3
--- NOTE | 2018-07-15 | HYST_PTH ---
PATIENT: TRENA LOC: [facility] [place] U#:[id number] AGE/SX: 32/F ROOM: RE07/15/[address]: Dr. Leatha Kumar MD : [id number] BED: DIS: 07/15/2018 SPEC #: [id number] RECD: 07/15/18 09:56 STATUS: DAYSI JAIRO #: [id number] MONA: 07/15/18 00:[address]: Leatha Kumar DEPT: SURGICAL PATHOLOGY RECD BY: Miguel Quinteros ENTERED: 07/15/18 12:47 SP TYPE: HYSTERECT OTHR DR: Dr. Bertin Pearson DO Tissues: Uterus, NOS Procedures: Surgery Specimen Level V HEADER OPERATION: ERAS, vaginal hysterectomy PRE-OP DIAGNOSIS: Chronic pelvic pain; dysmenorrhea; menorrhagia TISSUE SUBMITTED: Uterus, cervix MICROSCOPIC DIAGNOSIS Uterus and cervix, vaginal hysterectomy: Cervix - chronic cystic cervicitis and squamous metaplasia. Endometrium - proliferative endometrium with focal cystic changes. Myometrium - focal superficial adenomyosis. - An intramural leiomyoma (0.7 cm in diameter). JOHNY:nuris 07/16/18 MICROSCOPIC DESCRIPTION Slides are reviewed. GROSS DESCRIPTION Received in fixative is one container labeled with the patient's name and designated uterus, cervix. The specimen consists of a hysterectomy specimen consisting of uterus with cervix weighing 125 gm and measures 10 x 7 x 5 cm. The serosal surface is ragged with numerous instrumentation mcconnell with focal area of defect at the serosal surface. The ectocervical mucosa is unremarkable. The external os is oval and patulous in contour. The endocervical canal measures 4.5 cm in length and the endocervical mucosa is robin, glistening and unremarkable. Sections of the cervix reveal a cyst filled with mucoid material. The triangular endometrial cavity measures 5 cm in length and up to 4 cm in width. The endometrium is congested without any lesion and measures 0.1 cm in thickness. Sections of the uterine wall do not reveal any mass lesion and it measures up to 2.5 cm in thickness. Automatic Buffer sections are submitted in six cassettes as follows: 1 - anterior cervix, 2 - posterior cervix, 3 & 4 - anterior uterine wall, 5 & 6 - posterior uterine wall. / JOHNY:nuris 07/15/18 TC:5 CPT: 39192
[2018-07-15 05:55] LABS: Internal QC Validated? YES +Cl - CLEAR BKGD; Pregnancy, Urine Negative Negative
[2018-07-15] MEDS: Acetaminophen 500 MG Tablet 1000 MG PO (06:09)
[2018-07-15] MEDS: Celecoxib 200 MG Capsule 400 MG PO (06:10)
[2018-07-15] MEDS: Phenazopyridine 95 MG Tablet 190 MG PO (06:11)
[2018-07-15] MEDS: Gabapentin 600 MG Tablet PO (06:11)
[2018-07-15] MEDS: Scopolamine 1mg/72hr Patch 1 PATCH TRANSDERM. (06:12)
[2018-07-15] MEDS: Enoxaparin 40 MG/0.4 ML Syringe SC (06:12)
[2018-07-15 06:20] LABS: Hematocrit 42.8 % (37-47); Hemoglobin 14.3 g/dl (12.0-15.0); Mean Corp Hgb Conc 33.4 g/gl (32-36); Mean Corpuscular Hgb 28.6 pg (27.0-32.0); Mean Corpuscular Volume 85.6 fL (81-99); Mean Platelet Vol. 9.9 fl (6.2-12.0); Platelet Count 254 K/mm3 (150-450); RBC Distribution Width CV 14.3 % (11.6-14.6); RBC Distribution Width SD 43.7 fl (35.1-43.9); White Blood Count 10.2 K/mm3 (4.4-11.0)
[2018-07-15 06:26] LABS: Scan Indicated on CBC? Y/N NO
[2018-07-15] MEDS: Magnesium Sulfate 4gm/100mL 4 GM/100 ML IV.SOLN. IV (06:41)
[2018-07-15] MEDS: Lactated Ringers 1,000 ML 40 ML IV (06:42)
[2018-07-15 07:11] LABS: Bedside Glucose 79 mg/dL (70-110)
[2018-07-15] MEDS: Cefazolin 2 GM in 0.9% Normal Saline 100 ML IV (07:33)
--- NOTE | 2018-07-15 09:12 | OP.PCM_ITS ---
Report of Operation Date of Procedure: 07/15/18 Pre-Operative Diagnosis: menorrhagia, dysmenorrhea, pelvic pain Post-Operative Diagnosis: same Surgery/Procedure Performed:: Total vaginal hysterectomy with cystoscopy office nurse practitioner: Jacy Rodriguez office nurse practitioner: Migel Hendrickson Type of Anesthesia:: General Special Medications: none Specimen's removed: uterus Drains: none Estimated Blood Loss (mL): 50 Fluids Replaced: 1000cc LR Description of Procedure: The patient was taken to the operating room where she was prepped and draped in the normal sterile fashion in the dorsal lithotomy position. A weighted speculum was placed in the vagina and the anterior lip of the cervix was grasped with a Clement clamp. There is a lot of redundancy of the lower vagina, but there was actually very minimal prolapse of the uterine cervix and the decision was made that we would not proceed with a uterosacral ligament fixation, but a Dotterline type hysterectomy to leave as much apical support as possible. The vaginal epithelium was infiltrated circumferentially around the cervix with 1% Xylocaine solution. An incision was made across the anterior cervix from 3-9 o'clock with a scalpel and the vaginal epithelium was dissected back with blunt and sharp dissection. The anterior colpotomy incision was made sharply. Entry into the anterior cul-de-sac was confirmed by visualization of the uterine fundus and bowel behind the uterus. The first pedicle of the vaginal epithelium around the posterior cervix and lateral cervix was taken with Brooke clamp, it was clamped, transected and suture-ligated. On the left side the tissue was so attenuated that the suture actually tore through the vaginal tissue itself and another attempt was made to place a suture around the area. It took 3 attempts to get a suture to stay around the tissue and not completely pulled through the tissue. A second Brooke clamp was placed slightly more cephalad containing the uterine arteries clamped directly up against the uterus, was transected and suture-ligated. The pedicles were hemostatic. Again, had to be very careful that the clamps did not pull away from the tissue because of the tissue quality. I brought the uterine fundus through the anterior colpotomy incision. The utero-ovarian ligaments on each side were clamped, transected and suture-ligated. The uterosacral ligaments and the remainder of the broad ligament were clamped with Brooke clamps, transected and suture-ligated in the uterus and cervix were removed from the uterus. Is noted that we incidentally ruptured a small right ovarian cyst. This was hemostatic by the time the cuff was closed. Because of the tissue quality and redundancy of the vaginal hurst, and very cephalad location of the ovaries and tubes, I did not remove the remaining fimbria from the ovaries. Was felt that the risk of bleeding or the tissue tearing through with higher than the risk of leaving the tubal remnants. The pedicles were all examined again and found to be hemostatic. The vaginal cuff was then reapproximated horizontally with interrupted 0 Vicryl [id number] sutures. Care was taken to make sure that the vaginal cuff was secured to the uterosacral ligaments. the vaginal cuff was hemostatic and excellent support was noted. The Dunbar catheter was removed, a cystoscopy was performed. The bladder itself was intact. Both ureteral jets were noted. The bladder otherwise was normal and the cystoscope and fluid was removed. Dunbar was replaced. The vaginal sweep was completed by me. All sponge lap and needle counts were correct. Patient was awakened and taken to theher recovery room in stable condition. Grafts/Implants Used: none - Complications none - Admit VTE Documentation VTE Present on Admission: No VTE Mechan Device Prophylaxis: SCD's VTE Pharm Prophylaxis ordered?: No Reason prophylaxis not ordered:: Procedure Not Indicated
[2018-07-15] MEDS: Ondansetron 4 MG/2 ML Vial IV (09:24)
[2018-07-15] MEDS: HYDROcodone Bitartrate/Apap 5/325 Tablet PO (10:57)
--- NOTE | 2018-07-15 11:41 | DCINST_ITS ---
Discharge Diet: No Restrictions Discharge Activity: Return to Normal Activity, May Not Drive - while taking narcotic pain medications., May Shower May resume sexual activity in: 6-8 weeks Call your doctor if your incision/area has: Continuous Slow Oozing, Sudden Increased Bleeding, Increased Pain/ Swelling, Increased Redness, Foul Smelling Discharge Call your doctor if you observe: Fever of 101 or Higher, Inability to urinate, Inability to have a bowel movement, Using more than one pad per hour Additional Instructions: no lifting > 20 lbs x 6 weeks Allergies/Adverse Reactions: Allergies Bleach (Sodium Hypochlorite) Allergy (Verified 06/17/18 16:00) Hives citalopram hydrobromide [From Celexa] Allergy (Verified 06/17/18 16:00) Mood mood changes amoxicillin [Amoxicillin] Adverse Reaction (Verified 06/17/18 16:00) Rash Medications to take at Discharge Fluoxetine HCl 40 mg PO DAILY 06/30/16 Propranolol HCl [Inderal LA (Beta Vandana)] 60 mg PO DAILY 06/30/16 Albuterol Sulfate [Ventolin Hfa] 2 puff IH 4X/DAY PRN PRN 06/17/18 Amitriptyline HCl [Elavil] 10 mg PO QHS 06/17/18 Cholecalciferol (Vitamin D3) [Vitamin D3] 5,000 unit PO DAILY 06/17/18 Fluticasone 0.05% [Flonase Nasal [place]] 1 spray NASAL DAILY PRN 06/17/18 Loratadine [Claritin] 10 mg PO DAILY 06/17/18 Ropinirole HCl [Requip] 2 tab PO QHS 06/17/18 Rosuvastatin Calcium [Crestor] 5 mg PO QHS 06/17/18 Ibuprofen [Motrin] 600 mg PO Q6H PRN #60 tablet 07/15/18 Oxycodone HCl/Acetaminophen [Percocet 5-325] 1 - 2 tablet PO Q8 PRN 7 Days #28 tablet 07/15/18 The following prescriptions were given: Oxycodone HCl/Acetaminophen [Percocet 5-325] 1 - 2 tablet PO Q8 PRN 7 Days #28 tablet PRN Reason: Moderate-Severe pain Ibuprofen [Motrin] 600 mg PO Q6H PRN #60 tablet PRN Reason: Pain Primary Care Physician: Bertin Pearson DO [Primary Care Provider] - Test Results: Test results from this visit will be discussed in further detail at your follow- up appointment, if applicable. Please Follow Up With: Leatha Kumar MD - [phone] When: 1-2 and 6 weeks or as needed
[2018-07-15 12:02] LABS: Hematocrit 41.3 % (37-47); Hemoglobin 13.5 g/dl (12.0-15.0); Mean Corp Hgb Conc 32.7 g/gl (32-36); Mean Corpuscular Hgb 28.8 pg (27.0-32.0); Mean Corpuscular Volume 88.1 fL (81-99); Mean Platelet Vol. 9.6 fl (6.2-12.0); Platelet Count 237 K/mm3 (150-450); RBC Distribution Width CV 14.5 % (11.6-14.6); RBC Distribution Width SD 46.1 fl (35.1-43.9); Red Blood Count 4.69 M/mm3 (4.2-5.4); White Blood Count 16.2 K/mm3 (4.4-11.0)
[2018-07-15 12:08] LABS: Scan Indicated on CBC? Y/N NO
== END 2018-07-15 12:35 | disposition home or self-care (01) ==
LOC: SDC 05:34 → AC 05:36
PROVIDERS: Family Provider Student in an Organized Health Care Education/Training Program; PCP Student in an Organized Health Care Education/Training Program; Referring Provider Obstetrics & Gynecology; Visit Provider Obstetrics & Gynecology
PROC: (CPT 58260; principal; 2018-07-15 07:10)
DX: N92.0 Excessive and frequent menstruation with regular cycle (principal); N94.6 Dysmenorrhea, unspecified; N72 Inflammatory disease of cervix uteri; N87.9 Dysplasia of cervix uteri, unspecified; N80.0 Endometriosis of uterus; D25.1 Intramural leiomyoma of uterus; N83.291 Other ovarian cyst, right side; R10.2 Pelvic and perineal pain; G89.29 Other chronic pain; I10 Essential (primary) hypertension; E78.00 Pure hypercholesterolemia, unspecified; F41.9 Anxiety disorder, unspecified; G25.81 Restless legs syndrome; F17.210 Nicotine dependence, cigarettes, uncomplicated; Z79.899 Other long term (current) drug therapy
CPT/HCPCS: 00944; 58260; 81025; 82962; 85027; 86850; 86900; 88307; J7120; J2405

== ENCOUNTER 2018-07-16 17:04 | Emergency (ER) | payer MEDICAID, SELFPAY ==
[2018-07-15 05:57] VITALS: BMI 40.3
[2018-07-16] VITALS (14 sets, daily range): BP systolic 81–208; BP diastolic 55–131; PULSE 72–110; RESP 12–60; TEMP 37.4–39.6; O2SAT 47–93; BMI 36.8
--- NOTE | 2018-07-16 17:21 | EKG12_ITS ---
Test Reason : SOB Blood Pressure : / mmHG Vent. Rate : 104 BPM Atrial Rate : 104 BPM P-R Int : 154 ms QRS Dur : 084 ms QT Int : 352 ms P-R-T Axes : 039 -15 002 degrees QTc Int : 462 ms Sinus tachycardia Leftward [place] Poor R-Wave Progression Confirmed by VIDHYA WYMAN, NAI ([id number]), web editor ANDRE ABDUL ([id number]) on 07/19/2018 11:46:08 AM Referred By: SHYAM Confirmed By:NAI KEE MD
[2018-07-16] MEDS: 0.9% Normal Saline 1,000 ML 1000 ML IV (17:25)
--- NOTE | 2018-07-16 17:25 | RAD_ITS ---
STUDY: X-RAY CHEST REASON FOR EXAM: Female, 32 years old. Extreme dyspnea. TECHNIQUE: Single AP portable view of the chest. COMPARISON: Prior comparison studies are not available for review at this time. FINDINGS: Limited by patient's size and underexposure. Low lung volumes. Marked diffuse pulmonary density consistent with pulmonary edema and/or multifocal pneumonia. Effusions are not excluded. Heart size cannot be determined because of the adjacent RAD/Chest 1 View (Portable) IMPRESSION: Low lung volumes with diffuse pulmonary density. Electronically Signed: Reinaldo Prasad MD at 18:01 EDT , Service support ,
[2018-07-16] MEDS: LORazepam 2 MG/ML Syringe 1 MG IV (17:26)
[2018-07-16 17:35] LABS: Bedside Glucose 157 mg/dL (70-110)
--- NOTE | 2018-07-16 17:45 | RAD_ITS ---
STUDY: X-RAY CHEST REASON FOR EXAM: Female, 32 years old. RESPIRATORY DISTRESS, REEVALUATE POSSIBLE FLASH EDEMA PER ORDERING DOCTOR DUE TO EXPOSURE FACTORS OF PREVIOUS CHEST XRAY TECHNIQUE: Single AP portable view of the chest. COMPARISON: Radiograph of the same day, 3 minutes prior. FINDINGS: Improved exposure but the study is still limited by patient's size and some under exposure. As indicated on the prior exam, there is extensive widespread pulmonary density most consistent with extensive pulmonary edema. Multifocal pneumonia not excluded. Effusion is not excluded. There is mild cardiac enlargement. Normal visualized thoracic spine. Normal visualized ribs, clavicles, and shoulders. There is no demonstrated abnormality of the visualized soft tissue structures of the upper abdomen. RAD/Chest 1 View (Portable) IMPRESSION: Continued suboptimal exam because of patient size. Widespread pulmonary infiltrates most likely pulmonary edema. Electronically Signed: Reinaldo Prasad MD at 18:24 EDT , Service support ,
[2018-07-16 17:50] LABS: Anion Gap 15 (5-15); BUN 21 mg/dL (7-18); BUN/Creat Ratio 16.4 RATIO (10-20); Calcium,Total 8.4 mg/dL (8.5-10.1); Chloride 101 mmol/L (98-107); Creatinine, Serum 1.28 mg/dL (0.55-1.02); EST Glomerular Filtration Rate 51 mL/min (>60); Est Glom Filt Rate - Afr Amer 61 mL/min (>60); Estimated Creatinine Clearance 60.22 ml/min; Glucose 175 mg/dL (74-106); Potassium 5.4 mmol/L (3.5-5.1); Sodium Level 133 mmol/L (136-145)
[2018-07-16 17:55] LABS: Base Excess -10 mmol/L (-2 to +2); Bicarbonate 16.2 mmol/L (22-26); Blood Gas Specimen Type ART; O2 Delivery Device NRB Mask; PO2 35 mmHG (75-100); SITE L Brachial; SO2 64 % (95-99); Time Given 1733; Total Carbon Dioxide 17 mmol/L; pCO2 31.3 mmHg (35-45); pH 7.32 (7.35-7.45)
--- NOTE | 2018-07-16 18:00 | ED.RN ---
KVO IV FLUIDS.
[2018-07-16 18:04] LABS: Hematocrit 42.7 % (37-47); Hemoglobin 14.1 g/dl (12.0-15.0); Mean Corpuscular Hgb 28.7 pg (27.0-32.0); Mean Platelet Vol. 10.2 fl (6.2-12.0); Platelet Count 317 K/mm3 (150-450); RBC Distribution Width CV 14.9 % (11.6-14.6); RBC Distribution Width SD 47.1 fl (35.1-43.9); Red Blood Count 4.91 M/mm3 (4.2-5.4)
[2018-07-16] MEDS: Furosemide 20 MG/2 ML VIAL IV (18:09)
[2018-07-16 18:11] LABS: Lactic Acid 8.8 mmol/L (0.4-2.0)
[2018-07-16 18:25] LABS: Differential Indicated MANUAL DIFF; POSITIVE COUNT YES; POSITIVE DIFFERENTIAL YES; POSITIVE MORPHOLOGY YES
[2018-07-16 18:26] LABS: White Blood Count 32.6 K/mm3 (4.4-11.0)
--- NOTE | 2018-07-16 18:26 | ED.RN ---
LAB RESULTED WBC IS 32.2, PHYSICIAN NOTIFIED
[2018-07-16 18:32] LABS: Basophil 1 % (0-1); Blast 1 % (0-0); Lymphocyte 12 % (19-41); Metamyelocyte 1 % (0-1); Myelocyte 2 (0-0); Neutrophil-Band 1 % (0-5); Neutrophil-Segmented 82 % (47-70); Total Cells Counted 100 (MANUAL DIFF)
[2018-07-16 18:37] LABS: Anisocytosis RARE; Differential Comment SEE COMMENTS; Platelet Estimate ADEQUATE (ADEQ)
[2018-07-16 18:40] LABS: Absolute Neutrophil Count 27.1 X10^3/uL (2.0-7.7)
--- NOTE | 2018-07-16 18:54 | PCM.HP.STD ---
Problem List (1) Septic shock Status: Acute (2) Acute respiratory failure with hypoxia Status: Acute (3) Pneumonia Status: Acute Qualifiers: Pneumonia type: due to unspecified organism Laterality: bilateral (4) SANTANA (acute kidney injury) Status: Acute (5) Cardiac enzymes elevated Status: Acute (6) HLD (hyperlipidemia) Status: Chronic Qualifiers: Hyperlipidemia type: pure hypercholesterolemia Qualified Code(s): E78.00 - Pure hypercholesterolemia, unspecified; E78.0 - Pure hypercholesterolemia (7) Hypertension Status: Chronic Qualifiers: Hypertension type: essential hypertension Qualified Code(s): I10 - Essential (primary) hypertension (8) Anxiety Status: Chronic History of Present Illness Date of Admission: 07/16/18 Chief Complaint: Fatigue, Weakness, Dyspnea, Recent Cough, F/C The patient is a 32 y/o F w/ PMHx: HTN, HLD, Obesity, Anxiety and Depression, Tobacco use, Chronic Pelvic Pain s/p 07/15/18 Total vaginal hysterectomy with cystoscopy who now presents to the [facility] ED on 07/16/18 with severe dyspnea, fatigue, lethargy, confusion w/ family reported 2-3 history prior to recent surgery onset cough, mildly productive but not bringing anything up, subjective fever and chills, congestion, worsened cough following operative intervention on day prior but no marked coughing on day of current presentation but worsened appearance. Discussed case with Solar System Designer and they noted operative intervention went well with no untoward events with minimal blood loss. Work-up in the ED included T up to 103, heart rate 110, BP initially 121/55 but decreased to 81/66, respiratory rate up to 60, initially 80% on a nonrebreather--> transition to CPAP with ongoing tachypnea, maintaining maximally 88 to 93% on this current regimen, CBC with WBC 32.6, heme globin 14.1, platelet 317 without differential resulted as of yet, ABG with pH 7.32, Bicarb 16.2, O2 saturation 64, pCO2 31.3, pO2 35, NRB 15, BMP w/ Na 133, K 5.4, CO2 17, BUN/Cr 21/1.28, glucose 175, LA 8.8, trop 0.051, EKG with sinus tachycardia without acute evidence of ischemia, CXR w/ widespread pulmonary infiltrates versus pulmonary edema. Discussed case and updated patient information services manager, Leatha Kumar about patient admission and current events as courtesy, physician not formally consulted. Past Medical History Past Medical History (Chronic Problems): Chronic Problems HLD (hyperlipidemia) (Chronic) Pre-syncope (Chronic) Pure hypercholesterolemia (Chronic) Hypertension (Chronic) Anxiety (Chronic) Allergies Bleach (Sodium Hypochlorite) Allergy (Verified 07/16/18 17:14) Hives amoxicillin [Amoxicillin] Adverse Reaction (Verified 07/16/18 17:14) Rash citalopram hydrobromide [From Celexa] Adverse Reaction (Verified 07/16/18 18:46) Mood mood changes Home Medications: Ambulatory Orders Medication Instructions Recorded Fluoxetine HCl 40 mg PO DAILY 06/30/16 Propranolol HCl [Inderal LA (Beta 60 mg PO DAILY 06/30/16 Vandana)] Albuterol Sulfate [Ventolin Hfa] 2 puff IH 4X/DAY PRN PRN 06/17/18 Amitriptyline HCl [Elavil] 10 mg PO QHS 06/17/18 Cholecalciferol (Vitamin D3) 5,000 unit PO DAILY 06/17/18 [Vitamin D3] Fluticasone 0.05% [Flonase Nasal 1 spray NASAL DAILY PRN 06/17/18 [place]] Loratadine [Claritin] 10 mg PO DAILY 06/17/18 Ropinirole HCl [Requip] 2 tab PO QHS 06/17/18 Rosuvastatin Calcium [Crestor] 5 mg PO QHS 06/17/18 Ibuprofen [Motrin] 600 mg PO Q6H PRN #60 tablet 07/15/18 Oxycodone HCl/Acetaminophen 1 - 2 tablet PO Q8 PRN 7 Days #28 07/15/18 [Percocet 5-325] tablet Surgical History: dilatation and curettage, - - Recent total vaginal hysterectomy, D&C, bilateral tubal ligation. Psychiatric History: Anxiety, Depression RELIEF OPERATOR History: No pertinent RELIEF OPERATOR history Lives: Spouse/ Significant Other Smoking Status: Current every day smoker - 1 pack/day cigarette tobacco usage. Tobacco Use: Cigarettes Alcohol: Occasional Drugs: None - *Family History Maternal History Items: Diabetes, - Paternal History Items: - - Patient denies any paternal family history including heart disease, diabetes or cancer. Review of Systems Constitutional: Reports: Anorexia, Chills, Fever, Malaise, Weakness, Fatigue. Denies: Weight Change HEENT: Reports: Nasal Congestion, Sinus Congestion, Sinus Drainage. Denies: Head Aches Cardiovascular: Denies: Chest Pain, Palpitations Respiratory: Reports: Cough, Shortness of Breath, Shortness of breath at rest, Shortness of breath upon exertion, Sputum production Gastrointestinal: Reports: Abdominal Pain. Denies: Nausea, Vomiting Genitourinary: Denies: Dysuria Gynecological: Reports: Vaginal bleeding, - Musculoskeletal: Reports: Back Pain, Joint Pain. Denies: Joint Tenderness Skin: Denies: Rash, Wounds Neurological: Reports: Confusion. Denies: Focal weakness, Numbness, Tingling Psychiatric: Reports: Anxiety, Depression. Denies: Homicidal Ideations, Suicidal Ideations Hematologic/ Lymphatic: Denies: Easy Bruising, Easy Bleeding VTE Information - Inpt Only VTE Present on Admission: No VTE Mechan Device Prophylaxis: SCD's VTE Pharm Prophylaxis ordered?: Yes Patient Problems: Active and Suspected Problems Septic shock (Acute) Acute respiratory failure with hypoxia (Acute) Pneumonia (Acute) SANTANA (acute kidney injury) (Acute) Cardiac enzymes elevated (Acute) Subjective: Seated upright in ED bed, obvious acute respiratory distress, increased respiratory rate, accessory muscle usage, unable to speak in full sentences, lethargic and confused. Objective: Physical Examination: General: awake, markedly alert, lethargic, unable to answer orientation questions well, remains mildly cooperative, seated upright in ED bed, increased respiratory rate, accessory muscle usage, currently on CPAP but pending arrangement for intubation. Skin: normal color, turgor, no icterus, cyanosis. HEENT: AT/NC, EOMI, PERRLA, dry MM, no carotid bruits or JVD noted; however thickened neck makes examination difficult. Lungs: Diffusely diminished breath sounds throughout, coarse, rhonchorous, increased respiratory rate, accessory muscle usage, CPAP currently placed but pending intubation. Heart: Tachycardic with regular rhythm; no gallop, rub audible. Abdomen: soft, obese, expected tenderness given recent hysterectomy (vaginal), difficult to assess distention given habitus, normal bowel sounds, difficult to assess HSM secondary to habitus. Extremities: no cyanosis, clubbing, or edema. Neurological: awake, markedly alert, lethargic, unable to answer orientation questions well, remains mildly cooperative, seated upright in ED bed, increased respiratory rate, accessory muscle usage, currently on CPAP but pending arrangement for intubation; cognitive function not baseline intact; pupils equally reactive to light and accomodation; cranial nerves II-XII grossly normal, moving all 4 extremities, strength severely global decrease secondary to her acute presentation. Psychiatric: affect appears fatigued, lethargic, no acute evidence of depressive or anxiety feelings. - Physical Exam Vital Signs Temp Pulse Resp BP Pulse Ox 103 F H 99 58 H 81/66 L 91 07/16/18 18:31 07/16/18 18:31 07/16/18 18:31 07/16/18 18:31 07/16/18 18:31 Oxygen Flow Rate (L/min) 15 Oxygen Delivery Method CPAP Weight: 235 lb Body Mass Index (BMI) 36.8 Laboratory Tests Past 24 Hrs 07/16/18 07/16/18 07/16/18 17:15 17:15 17:15 WBC 32.6 H* RBC 4.91 Hgb 14.1 Hct 42.7 MCV 87.0 MCH 28.7 MCHC 33.0 RDW 14.9 H RDW Differential 47.1 H Plt Count 317 MPV 10.2 Neut % (Auto) Not Reportable Absolute Neuts (auto) 27.1 H Absolute Lymphs (auto) 3.90 Total Counted 100 Neutrophils % (Manual) 82 H Band Neutrophils % 1 Lymphocytes % (Manual) 12 L Basophils % (Manual) 1 Metamyelocytes % 1 Myelocytes % 2 H Blast Cells % 1 H* Differential Comment SEE COMMENTS Diff Path Review May foll Platelet Estimate ADEQUATE Anisocytosis RARE Specimen Type Sample Site pH Bicarbonate Actual POC Total CO2 Base Excess O2 Saturation ABG pCO2 ABG pO2 Homero Test O2 Delivery Device Liter Flow Blood Gas Notified Whom Blood Gas Notified Time Sodium 133 L Potassium 5.4 H Chloride 101 Carbon Dioxide 17.0 L Anion Gap 15 BUN 21 H Creatinine 1.28 H Estim Creat Clear Calc 60.22 Est GFR (MDRD) Af Amer 61 Est GFR (MDRD) Non-Af 51 L BUN/Creatinine Ratio 16.4 Glucose 175 H Lactic Acid 8.8 H* Calcium 8.4 L Troponin I 0.051 H B-Natriuretic Peptide 07/16/18 07/16/18 17:15 17:34 WBC RBC Hgb Hct MCV MCH MCHC RDW RDW Differential Plt Count MPV Neut % (Auto) Absolute Neuts (auto) Absolute Lymphs (auto) Total Counted Neutrophils % (Manual) Band Neutrophils % Lymphocytes % (Manual) Basophils % (Manual) Metamyelocytes % Myelocytes % Blast Cells % Differential Comment Diff Path Review Platelet Estimate Anisocytosis Specimen Type ART Sample Site L Brachial pH 7.32 L Bicarbonate Actual 16.2 L POC Total CO2 17 Base Excess -10 L O2 Saturation 64 L ABG pCO2 31.3 L ABG pO2 35 L* Homero Test NA O2 Delivery Device NRB Mask Liter Flow 15.0 Blood Gas Notified Whom ED MD Blood Gas Notified Time 1733 Sodium Potassium Chloride Carbon Dioxide Anion Gap BUN Creatinine Estim Creat Clear Calc Est GFR (MDRD) Af Amer Est GFR (MDRD) Non-Af BUN/Creatinine Ratio Glucose Lactic Acid Calcium Troponin I B-Natriuretic Peptide Pending POC Glucose 07/16/18 17:30 POC Glucose 157 H Assessment/Plan All Active Problems Septic shock (Acute) Acute respiratory failure with hypoxia (Acute) Pneumonia (Acute) SANTANA (acute kidney injury) (Acute) Cardiac enzymes elevated (Acute) UTI (urinary tract infection) (Acute) The patient is a 32 y/o F w/ PMHx: HTN, HLD, Obesity, Anxiety and Depression, Tobacco use, Chronic Pelvic Pain s/p 07/15/18 Total vaginal hysterectomy with cystoscopy who now presents to the [facility] ED on 07/16/18 with severe dyspnea, fatigue, lethargy, confusion w/ family reported 2-3 history prior to recent surgery onset cough, mildly productive but not bringing anything up, subjective fever and chills, congestion, worsened cough following operative intervention on day prior but no marked coughing on day of current presentation but worsened appearance. (1) Acute Septic Shock secondary to Acute Encephalopathy (Infectious, Metabolic) secondary to Acute Hypoxic Respiratory Failure secondary to Suspected Pneumonia with possible ARDS component: Evidence of sepsis-induced organ dysfunction/tissue hypoperfusion and sepsis induced hypotension. Work-up in the ED included T up to 103, heart rate 110, BP initially 121/55 but decreased to 81/66, respiratory rate up to 60, initially 80% on a nonrebreather--> transition to CPAP with ongoing tachypnea, maintaining maximally 88 to 93% on this current regimen, CBC with WBC 32.6, heme globin 14.1, platelet 317 without differential resulted as of yet, ABG with pH 7.32, Bicarb 16.2, O2 saturation 64, pCO2 31.3, pO2 35, NRB 15, BMP w/ Na 133, K 5.4, CO2 17, BUN/Cr 21/1.28, glucose 175, LA 8.8, trop 0.051, EKG with sinus tachycardia without acute evidence of ischemia, CXR w/ widespread pulmonary infiltrates versus pulmonary edema. Currently being intubated in the ED. Will admit patient to the ICU, maintain on cardiac monitoring, continue IVF bolus per protocol (30 ml/kg within 3 hours of initial septic shock presentation) per discussion with ED following ED intubation, trend LA, if following bolus BP remains low would initiate pressor therapy, maintain on IV abx regimen w/ vanc and zosyn, Bld Cx x 2 obtained in the ED, will obtain urine antigens as well as sputum Cx. Following intubation will initiate propofol as well as fentanyl with alterations as needed pending BP response. ICU physician consulted and discussed case. (2) Acute kidney injury: Secondary to acute presentation, #1. Admission BUN/Cr 21/1.28, prior baseline creatinine noted to be 0.5. Will hydrate, hold nephrotoxic medications and repeat chemistry in AM. If no improvement would plan FeNa and renal US assessment. (3) indeterminate cardiac enzymes w/ Elevated BNP, ? Pulmonary Edema Component: EKG in ED sinus tachycardia with no acute evidence of ischemia, CXR w/ diffuse infiltrates versus volume overload as noted suspected more likely etiology of pneumonia with possible ARDS, initial trop 0.051. Dr. Castro currently in the emergency room performing a bedside echocardiogram. Will place on a monitored bed to assure no acute myocardial infarction with serial cardiac enzymes and EKGs. Ordered formal ECHO also. ASA, NG, morphine. FLP in AM. Mag pending. Chronic Pelvic Pain: Recent hysterectomy as noted on day prior to current presentation, review of hemoglobin similar to prior, updated patient information services manager of current status. Formal consult not placed as from a surgical post hysterectomy standpoint no discharge, lochia minimal but if needed may place consultation. (4) Hypertension: Given acute presentation as noted #1, holding. (5) Hyperlipidemia: Holding oral regimen. (6) Obesity: Weight loss and lifestyle changes encouraged. (7) Tobacco Abuse: Encouraged cessation, inpatient consultation per RT, NR if desired. Critical Care Time: 55 minutes, time from 6:30 pm-7:25 pm, were spent addressing patients acute presentation, discussion with specialists, discussion with ED with transition to intubated, sedated status, alteration of abx therapy, update to Field Control Inspector, review of all data in collaboration with care team in addition to discussion with family. Code Visit Procedures: [id number] [facility]
[2018-07-16] MEDS: 0.9% Normal Saline 1,000 ML 999 ML IV ×2 (19:00→19:26)
[2018-07-16] MEDS: Etomidate 20 MG/10 ML Vial IV (19:01)
[2018-07-16] MEDS: Succinylcholine Chloride 200 MG/10 ML Vial 100 MG IV (19:02)
[2018-07-16 19:08] LABS: BNP,B-Type NATRIURETIC PEPTIDE 239.7 pg/mL (0-100)
[2018-07-16] MEDS: LORazepam 2 MG/ML Syringe IV (19:12)
--- NOTE | 2018-07-16 19:12 | HP.PCM_ITS ---
Problem List (1) Septic shock Status: Acute (2) Acute respiratory failure with hypoxia Status: Acute (3) Pneumonia Status: Acute Qualifiers: Pneumonia type: due to unspecified organism Laterality: bilateral (4) SANTANA (acute kidney injury) Status: Acute (5) Cardiac enzymes elevated Status: Acute (6) HLD (hyperlipidemia) Status: Chronic Qualifiers: Hyperlipidemia type: pure hypercholesterolemia Qualified Code(s): E78.00 - Pure hypercholesterolemia, unspecified; E78.0 - Pure hypercholesterolemia (7) Hypertension Status: Chronic Qualifiers: Hypertension type: essential hypertension Qualified Code(s): I10 - Essential (primary) hypertension (8) Anxiety Status: Chronic History of Present Illness Date of Admission: 07/16/18 Chief Complaint: Fatigue, Weakness, Dyspnea, Recent Cough, F/C The patient is a 32 y/o F w/ PMHx: HTN, HLD, Obesity, Anxiety and Depression, Tobacco use, Chronic Pelvic Pain s/p 07/15/18 Total vaginal hysterectomy with cystoscopy who now presents to the [facility] ED on 07/16/18 with severe dyspnea, fatigue, lethargy, confusion w/ family reported 2-3 history prior to recent surgery onset cough, mildly productive but not bringing anything up, subjective fever and chills, congestion, worsened cough following operative intervention on day prior but no marked coughing on day of current presentation but worsened appearance. Discussed case with School Based Therapist and they noted operative intervention went well with no untoward events with minimal blood loss. Work-up in the ED included T up to 103, heart rate 110, BP initially 121/55 but decreased to 81/66, respiratory rate up to 60, initially 80% on a nonrebreather--> transition to CPAP with ongoing tachypnea, maintaining maximally 88 to 93% on this current regimen, CBC with WBC 32.6, heme globin 14.1, platelet 317 without differential resulted as of yet, ABG with pH 7.32, Bicarb 16.2, O2 saturation 64, pCO2 31.3, pO2 35, NRB 15, BMP w/ Na 133, K 5.4, CO2 17, BUN/Cr 21/1.28, glucose 175, LA 8.8, trop 0.051, EKG with sinus tachycardia without acute evidence of ischemia, CXR w/ widespread pulmonary infiltrates versus pulmonary edema. Discussed case and updated patient dental associate, Leatha Kumar about patient admission and c urrent events as courtesy, physician not formally consulted. Past Medical History Past Medical History (Chronic Problems): Chronic Problems HLD (hyperlipidemia) (Chronic) Pre-syncope (Chronic) Pure hypercholesterolemia (Chronic) Hypertension (Chronic) Anxiety (Chronic) Allergies Bleach (Sodium Hypochlorite) Allergy (Verified 07/16/18 17:14) Hives amoxicillin [Amoxicillin] Adverse Reaction (Verified 07/16/18 17:14) Rash citalopram hydrobromide [From Celexa] Adverse Reaction (Verified 07/16/18 18:46) Mood mood changes Home Medications: Ambulatory Orders Medication Instructions Recorded Fluoxetine HCl 40 mg PO DAILY 06/30/16 Propranolol HCl [Inderal LA (Beta 60 mg PO DAILY 06/30/16 Vandana)] Albuterol Sulfate [Ventolin Hfa] 2 puff IH 4X/DAY PRN PRN 06/17/18 Amitriptyline HCl [Elavil] 10 mg PO QHS 06/17/18 Cholecalciferol (Vitamin D3) 5,000 unit PO DAILY 06/17/18 [Vitamin D3] Fluticasone 0.05% [Flonase Nasal 1 spray NASAL DAILY PRN 06/17/18 [place]] Loratadine [Claritin] 10 mg PO DAILY 06/17/18 Ropinirole HCl [Requip] 2 tab PO QHS 06/17/18 Rosuvastatin Calcium [Crestor] 5 mg PO QHS 06/17/18 Ibuprofen [Motrin] 600 mg PO Q6H PRN #60 tablet 07/15/18 Oxycodone HCl/Acetaminophen 1 - 2 tablet PO Q8 PRN 7 Days #28 07/15/18 [Percocet 5-325] tablet Surgical History: dilatation and curettage, - - Recent total vaginal hysterectomy, D&C, bilateral tubal ligation. Psychiatric History: Anxiety, Depression [employer]PER[employer] History: No pertinent [employer] history Lives: Spouse/ Significant Other Smoking Status: Current every day smoker - 1 pack/day cigarette tobacco usage. Tobacco Use: Cigarettes Alcohol: Occasional Drugs: None - *Family History Maternal History Items: Diabetes, - Paternal History Items: - - Patient denies any paternal family history including heart disease, diabetes or cancer. Review of Systems Constitutional: Reports: Anorexia, Chills, Fever, Malaise, Weakness, Fatigue. Denies: Weight Change HEENT: Reports: Nasal Congestion, Sinus Congestion, Sinus Drainage. Denies: Head Aches Cardiovascular: Denies: Chest Pain, Palpitations Respiratory: Reports: Cough, Shortness of Breath, Shortness of breath at rest, Shortness of breath upon exertion, Sputum production Gastrointestinal: Reports: Abdominal Pain. Denies: Nausea, Vomiting Genitourinary: Denies: Dysuria Gynecological: Reports: Vaginal bleeding, - Musculoskeletal: Reports: Back Pain, Joint Pain. Denies: Joint Tenderness Skin: Denies: Rash, Wounds Neurological: Reports: Confusion. Denies: Focal weakness, Numbness, Tingling Psychiatric: Reports: Anxiety, Depression. Denies: Homicidal Ideations, Suicidal Ideations Hematologic/ Lymphatic: Denies: Easy Bruising, Easy Bleeding VTE Information - Inpt Only VTE Present on Admission: No VTE Mechan Device Prophylaxis: SCD's VTE Pharm Prophylaxis ordered?: Yes Patient Problems: Active and Suspected Problems Septic shock (Acute) Acute respiratory failure with hypoxia (Acute) Pneumonia (Acute) SANTANA (acute kidney injury) (Acute) Cardiac enzymes elevated (Acute) Subjective: Seated upright in ED bed, obvious acute respiratory distress, increased respiratory rate, accessory muscle usage, unable to speak in full sentences, lethargic and confused. Objective: Physical Examination: General: awake, markedly alert, lethargic, unable to answer orientation question s well, remains mildly cooperative, seated upright in ED bed, increased respiratory rate, accessory muscle usage, currently on CPAP but pending arrangement for intubation. Skin: normal color, turgor, no icterus, cyanosis. HEENT: AT/NC, EOMI, PERRLA, dry MM, no carotid bruits or JVD noted; however thickened neck makes examination difficult. Lungs: Diffusely diminished breath sounds throughout, coarse, rhonchorous, increased respiratory rate, accessory muscle usage, CPAP currently placed but pending intubation. Heart: Tachycardic with regular rhythm; no gallop, rub audible. Abdomen: soft, obese, expected tenderness given recent hysterectomy (vaginal), difficult to assess distention given habitus, normal bowel sounds, difficult to assess HSM secondary to habitus. Extremities: no cyanosis, clubbing, or edema. Neurological: awake, markedly alert, lethargic, unable to answer orientation questions well, remains mildly cooperative, seated upright in ED bed, increased respiratory rate, accessory muscle usage, currently on CPAP but pending arrangement for intubation; cognitive function not baseline intact; pupils equally reactive to light and accomodation; cranial nerves II-XII grossly no rmal, moving all 4 extremities, strength severely global decrease secondary to her acute presentation. Psychiatric: affect appears fatigued, lethargic, no acute evidence of depressive or anxiety feelings. - Physical Exam Vital Signs Temp Pulse Resp BP Pulse Ox 103 F H 99 58 H 81/66 L 91 07/16/18 18:31 07/16/18 18:31 07/16/18 18:31 07/16/18 18:31 07/16/18 18:31 Oxygen Flow Rate (L/min) 15 Oxygen Delivery Method CPAP Weight: 235 lb Body Mass Index (BMI) 36.8 Laboratory Tests Past 24 Hrs 07/16/18 07/16/18 07/16/18 17:15 17:15 17:15 WBC 32.6 H* RBC 4.91 Hgb 14.1 Hct 42.7 MCV 87.0 MCH 28.7 MCHC 33.0 RDW 14.9 H RDW Differential 47.1 H Plt Count 317 MPV 10.2 Neut % (Auto) Not Reportable Absolute Neuts (auto) 27.1 H Absolute Lymphs (auto) 3.90 Total Counted 100 Neutrophils % (Manual) 82 H Band Neutrophils % 1 Lymphocytes % (Manual) 12 L Basophils % (Manual) 1 Metamyelocytes % 1 Myelocytes % 2 H Blast Cells % 1 H* Differential Comment SEE COMMENTS Diff Path Review May foll Platelet Estimate ADEQUATE Anisocytosis RARE Specimen Type Sample Site pH Bicarbonate Actual POC Total CO2 Base Excess O2 Saturation ABG pCO2 ABG pO2 Homero Test O2 Delivery Device Liter Flow Blood Gas Notified Whom Blood Gas Notified Time Sodium 133 L Potassium 5.4 H Chloride 101 Carbon Dioxide 17.0 L Anion Gap 15 BUN 21 H Creatinine 1.28 H Estim Creat Clear Calc 60.22 Est GFR (MDRD) Af Amer 61 Est GFR (MDRD) Non-Af 51 L BUN/Creatinine Ratio 16.4 Glucose 175 H Lactic Acid 8.8 H* Calcium 8.4 L Troponin I 0.051 H B-Natriuretic Peptide 07/16/18 07/16/18 17:15 17:34 WBC RBC Hgb Hct MCV MCH MCHC RDW RDW Differential Plt Count MPV Neut % (Auto) Absolute Neuts (auto) Absolute Lymphs (auto) Total Counted Neutrophils % (Manual) Band Neutrophils % Lymphocytes % (Manual) Basophils % (Manual) Metamyelocytes % Myelocytes % Blast Cells % Differential Comment Diff Path Review Platelet Estimate Anisocytosis Specimen Type ART Sample Site L Brachial pH 7.32 L Bicarbonate Actual 16.2 L POC Total CO2 17 Base Excess -10 L O2 Saturation 64 L ABG pCO2 31.3 L ABG pO2 35 L* Homero Test NA O2 Delivery Device NRB Mask Liter Flow 15.0 Blood Gas Notified Whom ED MD Blood Gas Notified Time 1733 Sodium Potassium Chloride Carbon Dioxide Anion Gap BUN Creatinine Estim Creat Clear Calc Est GFR (MDRD) Af Amer Est GFR (MDRD) Non-Af BUN/Creatinine Ratio Glucose Lactic Acid Calcium Troponin I B-Natriuretic Peptide Pending POC Glucose 07/16/18 17:30 POC Glucose 157 H Assessment/Plan All Active Problems Septic shock (Acute) Acute respiratory failure with hypoxia (Acute) Pneumonia (Acute) SANTANA (acute kidney injury) (Acute) Cardiac enzymes elevated (Acute) UTI (urinary tract infection) (Acute) The patient is a 32 y/o F w/ PMHx: HTN, HLD, Obesity, Anxiety and Depression, Tobacco use, Chronic Pelvic Pain s/p 07/15/18 Total vaginal hysterectomy with cystoscopy who now presents to the [facility] ED on 07/16/18 with severe dyspnea, fatigue, lethargy, confusion w/ family reported 2-3 history prior to recent surgery onset cough, mildly productive but not bringing anything up, subjective fever and chills, congestion, worsened cough following operative intervention on day prior but no marked coughing on day of current presentation but worsened appearance. (1) Acute Septic Shock secondary to Acute Encephalopathy (Infectious, Metabolic) secondary to Acute Hypoxic Respiratory Failure secondary to Suspected Pneumonia with possible ARDS component: Evidence of sepsis-induced organ dysfunction/tissue hypoperfusion and sepsis induced hypotension. Work-up in the ED included T up to 103, heart rate 110, BP initially 121/55 but decreased to 81/66, respiratory rate up to 60, initially 80% on a nonrebreather--> transition to CPAP with ongoing tachypnea, maintaining maximally 88 to 93% on this current regimen, CBC with WBC 32.6, heme globin 14.1, platelet 317 without differential resulted as of yet, ABG with pH 7.32, Bicarb 16.2, O2 saturation 64, pCO2 31.3, pO2 35, NRB 15, BMP w/ Na 133, K 5.4, CO2 17, BUN/Cr 21/1.28, glucose 175, LA 8.8, trop 0.051, EKG with sinus tachycardia without acute evidence of ischemia, CXR w/ widespread pulmonary infiltrates versus pulmonary edema. Currently being intubated in the ED. Will admit patient to the ICU, maintain on cardiac monitoring, continue IVF bolus per protocol (30 ml/kg within 3 hours of initial septic shock presentation) per discussion with ED following ED intubation, trend LA, if following bolus BP remains low would initiate pressor therapy, maintain on IV abx regimen w/ vanc and zosyn, Bld Cx x 2 obtained in the ED, will obtain urine antigens as well as sputum Cx. Following intubation will initiate propofol as well as fentanyl with alterations as needed pending BP response. ICU physician consulted and discussed case. (2) Acute kidney injury: Secondary to acute presentation, #1. Admission BUN/Cr 21/1.28, prior baseline creatinine noted to be 0.5. Will hydrate, hold nephrotoxic medications and repeat chemistry in AM. If no improvement would plan FeNa and renal US assessment. (3) indeterminate cardiac enzymes w/ Elevated BNP, ? Pulmonary Edema Component: EKG in ED sinus tachycardia with no acute evidence of ischemia, CXR w/ diffuse infiltrates versus volume overload as noted suspected more likely etiology of pneumonia with possible ARDS, initial trop 0.051. Dr. Castro currently in the emergency room performing a bedside echocardiogram. Will place on a monitored bed to assure no acute myocardial infarction with serial cardiac enzymes and EKGs. Ordered formal ECHO also. ASA, NG, morphine. FLP in AM. Mag pending. Chronic Pelvic Pain: Recent hysterectomy as noted on day prior to current presentation, review of hemoglobin similar to prior, updated patient dental associate of current status. Formal consult not placed as from a surgical post hysterectomy standpoint no discharge, lochia minimal but if needed may place consultation. (4) Hypertension: Given acute presentation as noted #1, holding. (5) Hyperlipidemia: Holding oral regimen. (6) Obesity: Weight loss and lifestyle changes encouraged. (7) Tobacco Abuse: Encouraged cessation, inpatient consultation per RT, NR if desired. Critical Care Time: 55 minutes, time from 6:30 pm-7:25 pm, were spent addressing patients acute presentation, discussion with specialists, discussion with ED with transition to intubated, sedated status, alteration of abx therapy, update to Slot Operations Manager, review of all data in collaboration with care team in addition to discussion with family. Code Visit Procedures: [id number] [facility] 1st Hr
--- NOTE | 2018-07-16 19:20 | RAD_ITS ---
STUDY: X-RAY CHEST REASON FOR EXAM: Female, 32 years old. Endotracheal tube placement. TECHNIQUE: Single AP portable view of the chest. COMPARISON: Same day, 5:48 PM. FINDINGS: Endotracheal tube terminates 4.6 cm above the jeovany. Nasogastric tube is seen through the esophagus and into the stomach. The tip is not seen. Bilateral diffuse pulmonary densities seen consistent with pulmonary edema, improved since previous exam of earlier today. Electronically Signed: Reinaldo Prasad MD at 19:40 EDT , Service support , RAD/Chest 1 View (Portable)
--- NOTE | 2018-07-16 19:22 | ED.VISSUMM ---
- ER Visit Summary Date of Service: 07/16/18 Chief Complaint: Shortness of breath History of Present Illness: The patient is a 32 F past medical history of hypertension and anxiety. Patient underwent a vaginal hysterectomy yesterday. Did well during the course of surgery and at discharge. Last night her said she was restless. And then today she was confused and seems short of breath. He does state that she had a cough prior to surgery for the last several days. No chest pain. No hemoptysis. Reportedly she was treated with Lovenox at the time of surgery. Physical Examination: Young female initial blood pressure was 121/55. Temperature 99.4 heart rate 110. Respiratory 38. Her pulse ox was in the 60s. Obviously hypoxic. She was in respiratory distress. HEENT exam unremarkable. Airway patent. No swelling of the lips or tongue. Neck nontender no JVD no lymphadenopathy. Lungs diminished bilaterally. But no obvious rales, rhonchi or wheezing. Heart tachycardic rate about 110 no murmur. Abdomen soft and nontender. No peritoneal signs. Nondistended. Extremities moving all 4. Calves nontender without edema. Equal symmetrical radial pulses. Neurologically she is awake. She is very anxious. She answers limited questions and is confused. Test Results: Initial white count is 32,600. Hemoglobin 14. Electrolytes: sodium of 133. Potassium of 5.4. BUN 21 creatinine 1.2. Troponin slightly elevated 0.051. Lactic acid elevated 8.8. EKG sinus tachycardia rate of 104 no signs of NC or ischemia. Initial chest x-ray portable one view shows bilateral either pulmonary edema or bilateral severe pneumonias and/or ARDS. Almost a white out bilaterally. . ABG showed a pH 7.32 with a PCO2 of 31 and PO2 of 35 and a bicarb of 16 that was with a sat of 64%. Patient was placed on BiPAP was having labored breathing and decision was made to have her intubated. I discussed this with her and her family. Also with the hospitalist. She was given etomidate and succinylcholine. Intubated on the first attempt with a 7.5 ET tube at about 24-25 at the lips and was pulled back 1 cm. She had bilateral breath sounds. Stomach was nondistended. And good vapor change. On chest x-ray post intubation the infiltrates and/or edema is slightly improved. With positive pressure. ET tube in good position above the jeovany. Emergency Department Course and Treatment: Patient is being treated for septic shock. She is receiving IV fluids. Initially she did get a small dose of IV Lasix thinking this was pulmonary edema but as she had a Dunbar catheter with a thermometer she developed a fever of 103. The chest x-ray findings I am now more concerned now that this is bilateral severe pneumonia with ARDS. She will be started on IV Zosyn and vancomycin weight-based. She is also receiving Tylenol. Ativan for sedation. She did receive succinylcholine and etomidate. She will be placed on a propofol drip for sedation now that her pressure is well above 100 systolically. Treatment Plan: ICU admission. I have already spoken to the hospitalist. She has spoken to the boat patcher plastic Dr. Godwin. I had Dr. Castro design drafter on-call come down evaluate the patient and he does not see any obvious signs of a poor ejection fraction on portable ultrasound. Due to the patient's severe respiratory status and her pulse ox being in the 60s this quite different ventilation management changes I feel she needs a care of a higher level ICU I spoken to the hospitalist about this and a design drafter and were all in agreement. I also discussed this with the family. I spoke to [facility] Dr. Chan and he has accepted her and she will go there by [employer] helicopter per his request. Disposition: ICU admission transferred to [facility]. Impression: Septic shock Respiratory failure Intubated by ER Bilateral pneumonia ARDS Lactic acidosis 8.8. Critical care time 35 minutes Leukocytosis Fever This note was generated with [employer] dictation software. It may contain incorrect words, spelling, and punctuation that were not noted in review of the chart prior to signing ED Disposition - Plan for ED Patient: Disposition: [facility] Referrals: Bertin Pearson DO [Primary Care Provider] -
[2018-07-16] MEDS: Vecuronium Bromide 10 MG/10 ML Vial IV (19:28)
[2018-07-16 19:34] LABS: International Normalized Ratio 1.1; Prothrombin Time (Protime)PT. 14.3 SECONDS (11.7-14.9)
--- NOTE | 2018-07-16 19:34 | ED.DCSUM_ITS ---
- ER Visit Summary Date of Service: 07/16/18 Chief Complaint: Shortness of breath History of Present Illness: The patient is a 32 F past medical history of hypertension and anxiety. Patient underwent a vaginal hysterectomy yesterday. Did well during the course of surgery and at discharge. Last night her said she was restless. And then today she was confused and seems short of breath. He does state that she had a cough prior to surgery for the last several days. No chest pain. No hemoptysis. Reportedly she was treated with Lovenox at the time of surgery. Physical Examination: Young female initial blood pressure was 121/55. Temperature 99.4 heart rate 110. Respiratory 38. Her pulse ox was in the 60s. Obviously hypoxic. She was in respiratory distress. HEENT exam unremarkable. Airway patent. No swelling of the lips or tongue. Neck nontender no JVD no l ymphadenopathy. Lungs diminished bilaterally. But no obvious rales, rhonchi or wheezing. Heart tachycardic rate about 110 no murmur. Abdomen soft and nontender. No peritoneal signs. Nondistended. Extremities moving all 4. Calves nontender without edema. Equal symmetrical radial pulses. Neurologically she is awake. She is very anxious. She answers limited questions and is confused. Test Results: Initial white count is 32,600. Hemoglobin 14. Electrolytes: sodium of 133. Potassium of 5.4. BUN 21 creatinine 1.2. Troponin slightly elevated 0.051. Lactic acid elevated 8.8. EKG sinus tachycardia rate of [address] or ischemia. Initial chest x-ray portable one view shows bilateral either pulmonary edema or bilateral severe pneumonias and/or ARDS. Almost a white out bilaterally. . ABG showed a pH 7.32 with a PCO2 of 31 and PO2 of 35 and a bicarb of 16 that was with a sat of 64%. Patient was placed on BiPAP was having labored breathing and decision was made to have her intubated. I discussed this with her and her family. Also with the hospitalist. She was given etomidate and succinylcholine. Intubated on the first attempt with a 7.5 ET tube at about 24-25 at the lips and was pulled back 1 cm. She had bilateral breath sounds. Stomach was nondistended. And good vapor change. On chest x-ray post intubation the infiltrates and/or edema is slightly improved. With positive pressure. ET tube in good position above the jeovany. Emergency Department Course and Treatment: Patient is being treated for septic shock. She is receiving IV fluids. Initially she did get a small dose of IV Lasix thinking this was pulmonary edema but as she had a Dunbar catheter with a thermometer she developed a fever of 103. The chest x-ray findings I am now more concerned now that this is bilateral severe pneumonia with ARDS. She will be started on IV Zosyn and vancomycin weight-based. She is also receiving Tylenol. Ativan for sedation. She did receive succinylcholine and etomidate. She will be placed on a propofol drip for sedation now that her pressure is well above 100 systolically. Treatment Plan: ICU admission. I have already spoken to the hospitalist. She has spoken to the chainstitch hemmer Dr. Godwin. I had Dr. Castro test manager on- call come down evaluate the patient and he does not see any obvious signs of a poor ejection fraction on portable ultrasound. Due to the patient's severe respiratory status and her pulse ox being in the 60s this quite different ventilation management changes I feel she needs a care of a higher level ICU I spoken to the hospitalist about this and a test manager and were all in agreement. I also discussed this with the family. I spoke to [facility] Dr. Chan and he has accepted her and she will go there by [employer] helicopter per his request. Disposition: ICU admission transferred to [facility]. Impression: Septic shock Respiratory failure Intubated by ER Bilateral pneumonia ARDS Lactic acidosis 8.8. Critical care time 35 minutes Leukocytosis Fever This note was generated with [employer] dictation software. It may contain incorrect words, spelling, and punctuation that were not noted in review of the chart prior to signing ED Disposition - Plan for ED Patient: Disposition: [facility] Referrals: Bertin Pearson DO [Primary Care Provider] -
[2018-07-16 19:35] LABS: Partial Thromboplast Time 21.9 Seconds (24.1-36.2)
--- NOTE | 2018-07-16 19:40 | PCM.CONS.C ---
Problem List (1) Septic shock Status: Acute (2) Acute respiratory failure with hypoxia Status: Acute (3) Pneumonia Status: Acute Qualifiers: Pneumonia type: due to unspecified organism Laterality: bilateral (4) SANTANA (acute kidney injury) Status: Acute (5) Cardiac enzymes elevated Status: Acute (6) Pure hypercholesterolemia Status: Chronic (7) HLD (hyperlipidemia) Status: Chronic Qualifiers: Hyperlipidemia type: pure hypercholesterolemia Qualified Code(s): E78.00 - Pure hypercholesterolemia, unspecified; E78.0 - Pure hypercholesterolemia (8) S/P hysterectomy Status: Acute Reason for Consult Date of Consultation: 07/16/18 History of Present Illness: The patient is a 32 year old white female who was referred by the [facility] emergency department staff for evaluation of sepsis, acute respiratory failure with hypoxia, pneumonia/possible ARDS, acute renal insufficiency, indeterminate cardiac enzymes/troponin I level, hyperlipidemia, hypertension, status post vaginal hysterectomy (07-15-18) for cardiovascular evaluation. The patient, status post history from the patient and the [facility] medical staff present, apparently, in retrospect, has noted a cough and potentially subjective fevers recently. However she presented to [facility] on 07-15-18 for her vaginal hysterectomy procedure which was reported as proceeding without obvious adverse concerns/complication. She was released home for continued outpatient follow-up. However today she has had progressive shortness of breath/dyspnea, fatigue, and confusion. She presented to the [facility] emergency department for further evaluation. Status post evaluation she was found to be in acute respiratory failure with hypoxia, a fever of approximately 103, an elevated WBC of approximately 32,000 with elevated neutrophils and 1% blasts, and elevated creatinine level, indeterminate troponin I level (0.051), and BNP of 239.7, elevated lactic acid level, and ECG demonstrating sinus tachycardia with a leftward axis with poor R wave progression, and a chest x-ray demonstrating bilateral pulmonary infiltrates. The patient was treated medically. She was given IV antibiotics. She received IV diuretics. She was noted to have subsequent transient hypotension requiring IV fluids. Based upon her acute respiratory failure/hypoxemia she subsequently required mechanical intubation/ventilation. A quick look bedside hand-held limited transthoracic echocardiogram was attempted to evaluate the patient's left ventricular wall motion and systolic function. This was considered a very technically diminished quality study secondary to the patient's body habitus and her underlying pulmonary disease process. Based upon the limited views obtained there appeared to be grossly normal left ventricular size, wall motion, and systolic function, however, not all LV wall segments were well visualized and thus additional comments regarding regional wall motion abnormalities and/or overall LV systolic function could not be made. The patient has denied any concerns of ongoing chest discomfort or pain. There has been no report of previous orthopnea or PND or worsening peripheral pitting edema. There is been no report of near syncope or syncope. Of note, it appears the patient did have a transthoracic echocardiogram performed on 09-20-12. At that time per the report the patient was noted to have normal left ventricular size, wall motion, and systolic function with an estimated LVEF of 60% with no valvular abnormalities being reported. [] Past Medical History Allergies/Adverse Reactions: Allergies Bleach (Sodium Hypochlorite) Allergy (Verified 07/16/18 17:14) Hives amoxicillin [Amoxicillin] Adverse Reaction (Verified 07/16/18 17:14) Rash citalopram hydrobromide [From Celexa] Adverse Reaction (Verified 07/16/18 18:46) Mood mood changes Home Medications: Ambulatory Orders Medication Instructions Recorded Fluoxetine HCl 40 mg PO DAILY 06/30/16 Propranolol HCl [Inderal LA (Beta 60 mg PO DAILY 06/30/16 [place])] Albuterol Sulfate [Ventolin Hfa] 2 puff IH 4X/DAY PRN PRN 06/17/18 Amitriptyline HCl [Elavil] 10 mg PO QHS 06/17/18 Cholecalciferol (Vitamin D3) 5,000 unit PO DAILY 06/17/18 [Vitamin D3] Fluticasone 0.05% [Flonase Nasal 1 spray NASAL DAILY PRN 06/17/18 [place]] Loratadine [Claritin] 10 mg PO DAILY 06/17/18 Ropinirole HCl [Requip] 2 tab PO QHS 06/17/18 Rosuvastatin Calcium [Crestor] 5 mg PO QHS 06/17/18 Ibuprofen [Motrin] 600 mg PO Q6H PRN #60 tablet 07/15/18 Oxycodone HCl/Acetaminophen 1 - 2 tablet PO Q8 PRN 7 Days #28 07/15/18 [Percocet 5-325] tablet Past Medical History (Chronic Problems): Chronic Problems HLD (hyperlipidemia) (Chronic) Pre-syncope (Chronic) Pure hypercholesterolemia (Chronic) Hypertension (Chronic) Anxiety (Chronic) Surgical History: dilatation and curettage, - - Recent total vaginal hysterectomy, D&C, bilateral tubal ligation. 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 Lives: Spouse/ Significant Other Smoking Status: Current every day smoker Tobacco Use: Cigarettes Alcohol: Occasional Drugs: None Review of Systems - Review of Systems General: Reports: Fever, Fatigue. Denies: Night Sweats Cardiovascular: Reports: Shortness of Breath. Denies: Chest Discomfort, Orthopnea, PND, Peripheral Edema, Palpitations, Lightheadedness, Dizziness, Near Syncope, Syncope Respiratory: Reports: Cough, Shortness of Breath. Denies: Hemoptysis Gastrointestinal: Denies: Hematemesis, Hematochezia, Melena Genitourinary: Denies: Dysuria, Hematuria Skin: Denies: Rash Subjectve: This is a 32-year-old obese white female who is now mechanically intubated and ventilated. Objective: Vital Signs Temp Pulse Resp BP Pulse Ox 102.9 F H 72 33 H 139/126 H 47 07/16/18 19:00 07/16/18 19:00 07/16/18 19:00 07/16/18 19:00 07/16/18 19:00 Oxygen Flow Rate (L/min) 15 Oxygen Delivery Method Bi-pap Weight: 235 lb Body Mass Index (BMI) 36.8 Lungs: Rhonchi - Scattered Cardiovascular: Regular Rhythm, Normal S1, Normal S2 - Diminished heart tones Abdomen: Bowel Sounds Present, Soft, Non Tender Extremities: No edema 07/16/18 17:15: WBC 32.6 H*, RBC 4.91, Hgb 14.1, Hct 42.7, MCV 87.0, MCH 28.7, MCHC 33.0, RDW 14.9 H, RDW Differential 47.1 H, Plt Count 317, MPV 10.2, Neut % (Auto) Not Reportable, Absolute Neuts (auto) 27.1 H, Total Counted 100, Neutrophils % (Manual) 82 H, Band Neutrophils % 1, Lymphocytes % (Manual) 12 L, Basophils % (Manual) 1, Metamyelocytes % 1, Myelocytes % 2 H, Blast Cells % 1 H* 07/16/18 17:15: Sodium 133 L, Potassium 5.4 H, Chloride 101, Carbon Dioxide 17.0 L, Anion Gap 15, BUN 21 H, Creatinine 1.28 H, Est GFR (MDRD) Af Amer 61, Est GFR (MDRD) Non-Af 51 L, BUN/Creatinine Ratio 16.4, Glucose 175 H, Calcium 8.4 L, Troponin I 0.051 H 07/16/18 17:15: Lactic Acid 8.8 H* 07/16/18 17:15: B-Natriuretic Peptide 239.7 H 07/16/18 17:15: PT 14.3, INR 1.1, APTT 21.9 L 07/16/18 17:34: pH 7.32 L, Bicarbonate Actual 16.2 L, POC Total CO2 17, Base Excess -10 L, O2 Saturation 64 L, ABG pCO2 31.3 L, ABG pO2 35 L*, Homero Test NA Rhythm: Sinus rhythm/sinus tachycardia EKG: As noted above ECHO: As noted above CXR: As noted above Assessment/Plan 1. Sepsis syndrome Based upon the history obtained and the objective data obtained there is concern that patient has developed an underlying infectious disease process and subsequently has sepsis syndrome. The concern is the patient developed an underlying pulmonary infectious disease process and potentially has ARDS. At the present time the patient is being supported with IV fluids. She may require, depending upon her hemodynamics, IV vasopressor agents. She is currently mechanically intubated and ventilated. She is receiving IV antibiotics. 2. Acute respiratory failure/hypoxemia Again based upon the history obtained and the objective data the concern is the patient has demonstrated an underlying infectious disease process with a form of a pneumonitis and potentially development of ARDS. At the present time she continues her evaluation. She is being supported with mechanical intubation/ventilation. She has been placed on IV antibiotics. However, if the patient does not respond with respect to her oxygenation level in an appropriate manner despite aggressive medical support/ventilator support, etc. she may have to be considered for transfer to a tertiary care center for alternative systems to assist with oxygenation such as ECMO. 3. Pneumonia Again the concern is the patient has developed a form of underlying pneumonia and possibly ARDS. She is being evaluated by the emerge department staff and internal medicine. The emergency department staff has discussed her case with Dr. Godwin of pulmonology and critical care medicine. She is receiving IV antibiotics. She is receiving mechanical intubation/ventilation. However, as noted above, if the patient does not improve with her oxygenation that she may need to be considered for evaluation at tertiary care center for other forms to assist with oxygenation such as ECMO. 4. Acute renal insufficiency The patient's creatinine level is somewhat elevated. This may be secondary to her acute illness and a sepsis process. Her renal function will need to be followed during her hospitalization. 5. Indeterminate cardiac enzyme levels The patient's troponin I level is indeterminate. Her ECG does not appear to demonstrate any acute ECG changes. There would be concerned that her indeterminate troponin I levels may be secondary to her ongoing noncardiac related illness and a subsequent supply demand related effect. Her cardiac enzymes will be followed. Her ECG will be followed. A request has been placed for a formal transthoracic echocardiogram for additional evaluation and care. In the interim she will continue medical management and support for her underlying concerns of sepsis syndrome and an underlying pulmonary related process. Of note, the patient's home medications list that the patient has been on medical therapy with Inderal LA/propranolol long-acting. This reportedly is being used for noncardiovascular conditions. However this may impact the patient's cardiac rate, etc. The present time, as she is not receiving her beta-robin therapy, based upon her current acute condition with alteration in her pulmonary status and her hemodynamics, her cardiac rate and rhythm and blood pressures will need to be monitored. 6. Hyperlipidemia She reportedly has a history of hyperlipidemia. She will need further evaluation care as deemed appropriate as her clinical course progresses. 7. Hypertension She reportedly has a history of hypertension. Her blood pressures will be followed. 8. Status post hysterectomy The patient is now status post hysterectomy. She will continue evaluation care by WOOD PANEL INSPECTOR as deemed appropriate. Comment: The patient's case was discussed and reviewed with Dr. Ramírez from the [facility] emergency department staff and Dr. Haney from the [facility] staff. This note was generated with [employer] software. It may contain incorrect words, spelling, and punctuation that were not noted in checking the note before signing.
[2018-07-16 19:48] LABS: Bacteria 0 SEEN /hpf (None Seen); Mucous, Urine 0 SEEN /hpf (<or=2+); Squamous Epithelial Cells - UA 0 SEEN /hpf (5-10); White Blood Cells 0 SEEN /hpf (0-5)
--- NOTE | 2018-07-16 19:49 | CON.PCM_ITS ---
Problem List (1) Septic shock Status: Acute (2) Acute respiratory failure with hypoxia Status: Acute (3) Pneumonia Status: Acute Qualifiers: Pneumonia type: due to unspecified organism Laterality: bilateral (4) SANTANA (acute kidney injury) Status: Acute (5) Cardiac enzymes elevated Status: Acute (6) Pure hypercholesterolemia Status: Chronic (7) HLD (hyperlipidemia) Status: Chronic Qualifiers: Hyperlipidemia type: pure hypercholesterolemia Qualified Code(s): E78.00 - Pure hypercholesterolemia, unspecified; E78.0 - Pure hypercholesterolemia (8) S/P hysterectomy Status: Acute Reason for Consult Date of Consultation: 07/16/18 History of Present Illness: The patient is a 32 year old white female who was referred by the [facility] emergency department staff for evaluation of sepsis, acute respiratory failure with hypoxia, pneumonia/possible ARDS, acute renal insufficiency, indeterminate cardiac enzymes/troponin I level, hyperlipidemia, hypertension, status post vaginal hysterectomy (07-15-18) for cardiovascular evaluation. The patient, status post history from the patient and the [facility] medical staff present, apparently, in retrospect, has noted a cough and potentially subjective fevers recently. However she presented to [facility] on 07-15-18 for her vaginal hysterectomy procedure which was reported as proceeding without obvious adverse concerns/complication. She was released home for continued outpatient follow-up. However today she has had progressive shortness of breath/dyspnea, fatigue, and confusion. She presented to the [facility] emergency department for further evaluation. Status post evaluation she was found to be in acute respiratory failure with hypoxia, a fever of approximately 103, an elevated WBC of approximately 32,000 with elevated neutrophils and 1% blasts, and elevated creatinine level, indeterminate troponin I level (0.051), and BNP of 239.7, elevated lactic acid level, and ECG demonstrating sinus tachycardia with a leftward axis with poor R wave progression, and a chest x-ray demonstrating bilateral pulmonary infiltrates. The patient was treated medically. She was given IV antibiotics. She received IV diuretics. She was noted to have subsequent transient hypotension requiring IV fluids. Based upon her acute respiratory failure/hypoxemia she subsequently required mechanical intubation/ventilation. A quick look bedside hand-held limited transthoracic echocardiogram was attempted to evaluate the patient's left ventricular wall motion and systolic function. This was considered a very technically diminished quality study secondary to the patient's body habitus and her underlying pulmonary disease process. Based upon the limited views obtained there appeared to be grossly normal left ventricular size, wall motion, and systolic function, however, not all LV wall segments were well visualized and thus additional comments regarding regional wall motion abnormalities and/or overall LV systolic function could not be made. The patient has denied any concerns of ongoing chest discomfort or pain. There has been no report of previous orthopnea or PND or worsening peripheral pitting edema. There is been no report of near syncope or syncope. Of note, it appears the patient did have a transthoracic echocardiogram performed on 09-20-12. At that time per the report the patient was noted to have normal left ventricular size, wall motion, and systolic function with an estimated LVEF of 60% with no valvular abnormalities being reported. [] Past Medical History Allergies/Adverse Reactions: Allergies Bleach (Sodium Hypochlorite) Allergy (Verified 07/16/18 17:14) Hives amoxicillin [Amoxicillin] Adverse Reaction (Verified 07/16/18 17:14) Rash citalopram hydrobromide [From Celexa] Adverse Reaction (Verified 07/16/18 18:46) Mood mood changes Home Medications: Ambulatory Orders Medication Instructions Recorded Fluoxetine HCl 40 mg PO DAILY 06/30/16 Propranolol HCl [Inderal LA (Beta 60 mg PO DAILY 06/30/16 [place])] Albuterol Sulfate [Ventolin Hfa] 2 puff IH 4X/DAY PRN PRN 06/17/18 Amitriptyline HCl [Elavil] 10 mg PO QHS 06/17/18 Cholecalciferol (Vitamin D3) 5,000 unit PO DAILY 06/17/18 [Vitamin D3] Fluticasone 0.05% [Flonase Nasal 1 spray NASAL DAILY PRN 06/17/18 [place]] Loratadine [Claritin] 10 mg PO DAILY 06/17/18 Ropinirole HCl [Requip] 2 tab PO QHS 06/17/18 Rosuvastatin Calcium [Crestor] 5 mg PO QHS 06/17/18 Ibuprofen [Motrin] 600 mg PO Q6H PRN #60 tablet 07/15/18 Oxycodone HCl/Acetaminophen 1 - 2 tablet PO Q8 PRN 7 Days #28 07/15/18 [Percocet 5-325] tablet Past Medical History (Chronic Problems): Chronic Problems HLD (hyperlipidemia) (Chronic) Pre-syncope (Chronic) Pure hypercholesterolemia (Chronic) Hypertension (Chronic) Anxiety (Chronic) Surgical History: dilatation and curettage, - - Recent total vaginal hysterectomy, D&C, bilateral tubal ligation. 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 Lives: Spouse/ Significant Other Smoking Status: Current every day smoker Tobacco Use: Cigarettes Alcohol: Occasional Drugs: None Review of Systems - Review of Systems General: Reports: Fever, Fatigue. Denies: Night Sweats Cardiovascular: Reports: Shortness of Breath. Denies: Chest Discomfort, Orthopnea, PND, Peripheral Edema, Palpitations, Lightheadedness, Dizziness, Near Syncope, Syncope Respiratory: Reports: Cough, Shortness of Breath. Denies: Hemoptysis Gastrointestinal: Denies: Hematemesis, Hematochezia, Melena Genitourinary: Denies: Dysuria, Hematuria Skin: Denies: Rash Subjectve: This is a 32-year-old obese white female who is now mechanically intubated and ventilated. Objective: Vital Signs Temp Pulse Resp BP Pulse Ox 102.9 F H 72 33 H 139/126 H 47 07/16/18 19:00 07/16/18 19:00 07/16/18 19:00 07/16/18 19:00 07/16/18 19:00 Oxygen Flow Rate (L/min) 15 Oxygen Delivery Method Bi-pap Weight: 235 lb Body Mass Index (BMI) 36.8 Lungs: Rhonchi - Scattered Cardiovascular: Regular Rhythm, Normal S1, Normal S2 - Diminished heart tones Abdomen: Bowel Sounds Present, Soft, Non Tender Extremities: No edema 07/16/18 17:15: WBC 32.6 H*, RBC 4.91, Hgb 14.1, Hct 42.7, MCV 87.0, MCH 28.7, MCHC 33.0, RDW 14.9 H, RDW Differential 47.1 H, Plt Count 317, MPV 10.2, Neut % (Auto) Not Reportable, Absolute Neuts (auto) 27.1 H, Total Counted 100, Neut rophils % (Manual) 82 H, Band Neutrophils % 1, Lymphocytes % (Manual) 12 L, Basophils % (Manual) 1, Metamyelocytes % 1, Myelocytes % 2 H, Blast Cells % 1 H* 07/16/18 17:15: Sodium 133 L, Potassium 5.4 H, Chloride 101, Carbon Dioxide 17.0 L, Anion Gap 15, BUN 21 H, Creatinine 1.28 H, Est GFR (MDRD) Af Amer 61, Est GFR (MDRD) Non-Af 51 L, BUN/Creatinine Ratio 16.4, Glucose 175 H, Calcium 8.4 L, Troponin I 0.051 H 07/16/18 17:15: Lactic Acid 8.8 H* 07/16/18 17:15: B-Natriuretic Peptide 239.7 H 07/16/18 17:15: PT 14.3, INR 1.1, APTT 21.9 L 07/16/18 17:34: pH 7.32 L, Bicarbonate Actual 16.2 L, POC Total CO2 17, Base Excess -10 L, O2 Saturation 64 L, ABG pCO2 31.3 L, ABG pO2 35 L*, Homero Test NA Rhythm: Sinus rhythm/sinus tachycardia EKG: As noted above ECHO: As noted above CXR: As noted above Assessment/Plan 1. Sepsis syndrome Based upon the history obtained and the objective data obtained there is concern that patient has developed an underlying infectious disease process and subsequently has sepsis syndrome. The concern is the patient developed an underlying pulmonary infectious disease process and potentially has ARDS. At the present time the patient is being supported with IV fluids. She may require, depending upon her hemodynamics, IV vasopressor agents. She is currently mechanically intubated and ventilated. She is receiving IV antibiotics. 2. Acute respiratory failure/hypoxemia Again based upon the history obtained and the objective data the concern is the patient has demonstrated an underlying infectious disease process with a form of a pneumonitis and potentially development of ARDS. At the present time she continues her evaluation. She is being supported with mechanical intubation/ventilation. She has been placed on IV antibiotics. However, if the patient does not respond with respect to her oxygenation level in an appropriate manner despite aggressive medical support/ventilator support, etc. she may have to be considered for transfer to a tertiary care center for alternative systems to assist with oxygenation such as ECMO. 3. Pneumonia Again the concern is the patient has developed a form of underlying pneumonia and possibly ARDS. She is being evaluated by the emerge department staff and internal medicine. The emergency department staff has discussed her case with Dr. Godwin of pulmonology and critical care medicine. She is receiving IV antibiotics. She is receiving mechanical intubation/ventilation. However, as noted above, if the patient does not improve with her oxygenation that she may need to be considered for evaluation at tertiary care center for other forms to assist with oxygenation such as ECMO. 4. Acute renal insufficiency The patient's creatinine level is somewhat elevated. This may be secondary to her acute illness and a sepsis process. Her renal function will need to be followed during her hospitalization. 5. Indeterminate cardiac enzyme levels The patient's troponin I level is indeterminate. Her ECG does not appear to demonstrate any acute ECG changes. There would be concerned that her indeterminate troponin I levels may be secondary to her ongoing noncardiac related illness and a subsequent supply demand related effect. Her cardiac enzymes will be followed. Her ECG will be followed. A request has been placed for a formal transthoracic echocardiogram for additional evaluation and care. In the interim she will continue medical management and support for her underlying concerns of sepsis syndrome and an underlying pulmonary related process. Of note, the patient's home medications list that the patient has been on medical therapy with Inderal LA/propranolol long-acting. This reportedly is being used for noncardiovascular conditions. However this may impact the patient's cardiac rate, etc. The present time, as she is not receiving her beta-robin therapy, based upon her current acute condition with alteration in her pulmonary status and her hemodynamics, her cardiac rate and rhythm and blood pressures will need to be monitored. 6. Hyperlipidemia She reportedly has a history of hyperlipidemia. She will need further evaluation care as deemed appropriate as her clinical course progresses. 7. Hypertension She reportedly has a history of hypertension. Her blood pressures will be followed. 8. Status post hysterectomy The patient is now status post hysterectomy. She will continue evaluation care by CORE ASSEMBLY SUPERVISOR as deemed appropriate. Comment: The patient's case was discussed and reviewed with Dr. Raímrez from the [facility] emergency department staff and Dr. Haney from the [facility] staff. This note was generated with [employer] software. It may contain incorrect words, spelling, and punctuation that were not noted in checking the note before signing.
[2018-07-16 19:52] LABS: Color, Urine Yellow (Yellow); Glucose, Dipstick Normal (Normal); Ketone-Dipstick Negative (Negative); Leukocyte Esterase-Dipstick Negative /ul (Negative); Nitrite-Dipstick Negative (Negative); Occult Blood-Urine 25 /ul (Negative); Protein-Dipstick 30 mg/dl (Negative); Urine Bilirubin Dipstick Negative (Negative); Urine Clarity Clear (Clear); Urine Urobilinogen Normal (Normal)
[2018-07-16 19:55] LABS: Allen Test POS; Base Excess -6 mmol/L (-2 to +2); Blood Gas Specimen Type ART; FI02 100; Mode A-C; O2 Delivery Device Vent; PEEP 15; PO2 39 mmHG (75-100); RR 16; SITE R Brachial; SO2 60 % (95-99); Time Given 1940; Total Carbon Dioxide 24 mmol/L; Vt 400; pCO2 56.5 mmHg (35-45)
[2018-07-16] MEDS: Propofol 10MG/Ml 1,000 MG/100 ML Bottle 6.396 MG CONT INF (19:57)
[2018-07-16 19:58] LABS: Red Blood Cells-Urine 0-5 SEEN /hpf (0-5)
--- NOTE | 2018-07-16 20:57 | ED.RN ---
BEDSIDE REPORT GIVEN TO [facility]. PT TRANSFERRED TO THEIR CARE
[2018-07-16 21:28] LABS: Reflex Lactate? Y
[2018-07-19 14:37] LABS: Pathologist Review Reviewed
== END 2018-07-16 20:57 | disposition short-term general hospital (02) ==
LOC: ED 17:54
PROVIDERS: Emergency Provider Emergency Medicine; Family Provider Student in an Organized Health Care Education/Training Program; PCP Student in an Organized Health Care Education/Training Program; Visit Provider Family Medicine
DX: A41.9 Sepsis, unspecified organism (principal); J18.9 Pneumonia, unspecified organism; J96.01 Acute respiratory failure with hypoxia; J81.1 Chronic pulmonary edema; R65.21 Severe sepsis with septic shock; N17.9 Acute kidney failure, unspecified; E87.2 Acidosis; D72.829 Elevated white blood cell count, unspecified; E78.00 Pure hypercholesterolemia, unspecified; R74.8 Abnormal levels of other serum enzymes; I10 Essential (primary) hypertension; I95.89 Other hypotension; F41.9 Anxiety disorder, unspecified; F17.210 Nicotine dependence, cigarettes, uncomplicated; Z90.710 Acquired absence of both cervix and uterus; Z79.899 Other long term (current) drug therapy
CPT/HCPCS: 31500; 31720; 36600; 51702; 71045; 80048; 81001; 82803; 82962; 83605; 83880; 84484; 85025; 85610; 85730; 87040; 87804; 93005; 94002; 96361; 96365; 96367; 96375; 99251; 99285; J7030; J7040; A4216; G0463; J0330; J1940

== ENCOUNTER → 2018-10-26 17:09 | Outpatient (CLI) | payer MEDICAID, SELFPAY ==
[2018-07-16 17:06] VITALS: BMI 36.8
[2018-10-26 17:45] LABS: International Normalized Ratio 1.6; Prothrombin Time (Protime)PT. 19.1 SECONDS (11.7-14.9)
== END ==
PROVIDERS: Family Provider Student in an Organized Health Care Education/Training Program; PCP Student in an Organized Health Care Education/Training Program; Referring Provider Family Medicine; Visit Provider Family Medicine
DX: I82.4Y9 Acute embolism and thrombosis of unspecified deep veins of unspecified proximal lower extremity (principal)
CPT/HCPCS: 85610

== ENCOUNTER 2018-12-03 18:07 | Emergency (ER) | payer MEDICAID, SELFPAY ==
[2018-07-16 17:06] VITALS: BMI 36.8
[2018-12-03 18:08] VITALS: BP 161/101; PULSE 104; RESP 19; TEMP 37.3; O2SAT 97; BMI 36.0
--- NOTE | 2018-12-03 18:29 | RAD_ITS ---
STUDY: X-RAY CHEST REASON FOR EXAM: Female, 32 years old. Chest pain TECHNIQUE: Single AP portable view of the chest. COMPARISON: Prior chest radiograph of November 15, 2018. FINDINGS: Bilateral diffuse infiltrates thought to be pulmonary edema have essentially resolved from the prior exam. However, there remains a rounded opacity in the axillary portion of the right lung base which measures approximately 2.3 cm with somewhat ill-defined borders and a zone of atelectasis just below. This was not visualized on the preceding exam. Negative for substantial pleural effusion. Normal size heart. Normal mediastinum and araceli. Normal visualized pulmonary arteries. Normal visualized aortic arch and descending thoracic aorta. Normal visualized thoracic spine. Normal visualized ribs, clavicles, and shoulders. There is no demonstrated abnormality of the visualized soft tissue structures of the upper abdomen. RAD/Chest 1 View (Portable) IMPRESSION: Roundish opacity at the right lung base in the axillary region with adjacent atelectatic changes. Likely to be a rounded pneumonia. Otherwise the diffuse process present on the prior exam has resolved. Heart size is within normal limits. Negative for substantial pleural effusion. Electronically Signed: Zarina Brooks MD at 18:50 EDT , Service support ,
--- NOTE | 2018-12-03 18:29 | EKG12_ITS ---
Test Reason : CP Blood Pressure : / mmHG Vent. Rate : 099 BPM Atrial Rate : 099 BPM P-R Int : 182 ms QRS Dur : 082 ms QT Int : 366 ms P-R-T Axes : 032 -14 106 degrees QTc Int : 469 ms Normal sinus rhythm Nonspecific T wave abnormality Prolonged QT Abnormal ECG Confirmed by MYRIAM WYMAN, DAVIAN ([id number]), image editor MACIEJ NOLAN ([id number]) on 12/07/2018 12:00:58 PM Referred By: CARIDAD/JOLENE Confirmed By:SIOBHAN MIGUEL MD
--- NOTE | 2018-12-03 18:29 | ED.VIS.GEN ---
History of Present Illness Chief Complaint: Chest Pain Informant: Patient Onset: Days - 3 Current Severity: Moderate Maximum Severity: Moderate Narrative: Patient presents with intermittent chest pain over the past 3 days. It is in her neck, left upper chest region and back. There is some shoulder pain. She has no trauma. She has no fever chills cough or congestion. She has no difficulty breathing. She has no leg pain or calf pain she has no travel history. No back pain or tearing sensation Past Medical History - Allergies and Home Meds Allergies/Adverse Reactions: Allergies Bleach (Sodium Hypochlorite) Allergy (Verified 07/16/18 17:14) Hives amoxicillin [Amoxicillin] Adverse Reaction (Verified 07/16/18 17:14) Rash citalopram hydrobromide [From Celexa] Adverse Reaction (Verified 07/16/18 18:46) Mood mood changes Primary Care Physician: Bertin Pearson DO [NON CLINICAL AFFILIATE] - Past Medical History: - - Patient had a recent hospitalization to an ICU for respiratory failure status post a hysterectomy Surgical History: dilatation and curettage, - - Recent total vaginal hysterectomy, D&C, bilateral tubal ligation. Smoking Status: Former smoker - Family History Maternal Family History: Reports: Diabetes, - Paternal Family History: Reports: - - Patient denies any paternal family history including heart disease, diabetes or cancer. Review of Systems All systems negative except as indicated General: Denies: Fever Eyes: Denies: Visual changes - bilaterally Cardiovascular: Reports: Chest pain. Denies: Palpitations Respiratory: Denies: Dyspnea, Cough Gastrointestinal: Denies: Nausea Musculoskeletal: Reports: Neck pain Skin: Denies: Wounds Neurological: Denies: Weakness Psych: Reports: Anxiety Physical Exam Vital Signs/Narrative: Vital Signs Temp Pulse Resp BP Pulse Ox 12/03/18 18:08 99.2 F H 104 H 19 H 161/101 H 97 General: Well nourished, Well developed Head: Normocephalic Eyes: Perrl, EOMI ENT: Moist mucous membranes Neck: Supple Cardiovascular: Regular rate, Regular rhythm Respiratory: No distress, CTA bilaterally Abdomen: Soft, Nontender, Nondistended Back: Nontender, Normal Inspection Extremities: Nontender, No edema. Negative for: Tenderness Skin: Normal color Neurological: Alert, Oriented x3, Normal Sensation Diagnostic/Tx/Re-eval - Rhythm Strip Rhythm Strip: Sinus Rhythm Rate: 99 Ectopy: None - EKG Initial EKG Interpretation: Sinus Rhythm, - - Normal [place] normal QTC intervals. Nonspecific ST changes. Interpreted by emergency doctor - Medical Decision Making Patient has a normal work-up. She improved with Ativan. I am unsure about the etiology of her symptoms but she has a normal troponin chest x-ray and blood work. I believe she is stable for discharge she ambulates quite well around the emergency department. Discharge stable condition ED Disposition - Plan for ED Patient: Disposition: Home or Assisted Living Instructions: CHEST PAIN, Uncertain Cause Referrals: Bertin Pearson DO [NON CLINICAL AFFILIATE] - 3-5 Days
[2018-12-03 18:48] VITALS: O2SAT 99
[2018-12-03 18:48] LABS: Absolute Lymphocyte Count 10.12 X10^3/uL (0.83-4.51); Absolute Neutrophil Count 5.2 X10^3/uL (2.0-7.7); Basophil# 0.07 X10^3/uL; Basophil% 0.4 % (0-1); Eosinophils% 1.2 % (0-5); Hematocrit 39.2 % (37-47); Lymphocyte # 10.12 X10^3/ul (4.0); Lymphocyte % 60.5 % (19-41); Mean Corp Hgb Conc 33.2 g/dL (32-36); Mean Corpuscular Hgb 28.6 pg (27.0-32.0); Mean Corpuscular Volume 86.3 fL (81-99); Mean Platelet Vol. 9.3 fl (6.2-12.0); Monocyte# 0.84 X10^3/uL; NRBC Flagged by Analyzer 0 % (0-5); Neutrophil # 5.18 X10^3/uL (2.7-7.7); POSITIVE DIFFERENTIAL YES; Platelet Count 361 K/mm3 (150-450); RBC Distribution Width CV 13.2 % (11.6-14.6); RBC Distribution Width SD 41.2 fl (35.1-43.9); Red Blood Count 4.54 M/mm3 (4.2-5.4); White Blood Count 16.7 K/mm3 (4.4-11.0)
[2018-12-03] MEDS: LORazepam 2 MG/ML Syringe 0.5 MG IV (18:53)
[2018-12-03] MEDS: Aspirin 81 MG TAB.CHEW 324 MG PO (18:54)
[2018-12-03 19:03] LABS: Anion Gap 5 (5-15); BUN 16 mg/dL (7-18); BUN/Creat Ratio 13.9 RATIO (10-20); Calcium,Total 9.3 mg/dL (8.5-10.1); Chloride 105 mmol/L (98-107); Creatinine, Serum 1.15 mg/dL (0.55-1.02); EST Glomerular Filtration Rate 57 mL/min (>60); Est Glom Filt Rate - Afr Amer 69 mL/min (>60); Estimated Creatinine Clearance 67.03 ml/min; Glucose 150 mg/dL (74-106); Potassium 3.4 mmol/L (3.5-5.1); Sodium Level 136 mmol/L (136-145)
[2018-12-03 19:08] VITALS: BP 121/80; PULSE 95; RESP 20; O2SAT 100
[2018-12-03 19:30] LABS: Differential Indicated SCAN CRITERIA MET
[2018-12-03 19:32] LABS: Platelet Estimate ADEQUATE (ADEQ)
[2018-12-03 19:33] LABS: Anisocytosis 1+; Red Cell Morphology N CHROM NORMAL (NORM C&C)
[2018-12-03 19:37] VITALS: BP 115/78; PULSE 87; RESP 17; O2SAT 100
[2018-12-03 19:57] VITALS: BP 115/78; PULSE 87; RESP 17; O2SAT 100
== END 2018-12-03 19:58 | disposition home or self-care (01) ==
PROVIDERS: Emergency Provider Emergency Medicine; Family Provider Family Medicine; PCP Family Medicine
DX: R07.9 Chest pain, unspecified (principal); Z87.891 Personal history of nicotine dependence
CPT/HCPCS: 71045; 80048; 84484; 85025; 93005; 96374; 99285; A4216

== ENCOUNTER 2019-03-07 16:21 | Emergency (ER) | payer MEDICAID, SELFPAY ==
[2019-03-07 16:23] VITALS: BP 125/81; PULSE 110; RESP 16; TEMP 36.9; O2SAT 96; BMI 39.9
--- NOTE | 2019-03-07 16:40 | RAD_ITS ---
STUDY: X-RAY - LEFT TIBIA AND FIBULA REASON FOR EXAM: Female, 33 years old. Trauma TECHNIQUE: 2 view(s) of the tibia and fibula were obtained. COMPARISON: Prior study of 06/30/2016 FINDINGS: Normal visualized tibia. Normal visualized fibula. The soft tissue structures are unremarkable. RAD/Tibia & Fibula 2 Views IMPRESSION: Normal x-ray examination of the tibia and fibula. Electronically Signed: Dante Elmore MD at 17:20 EST , Service support ,
--- NOTE | 2019-03-07 16:41 | RAD_ITS ---
STUDY: X-RAY - LEFT FOOT CLINICAL: Female, 33 years old. Trauma TECHNIQUE: 3 view(s) of the foot. COMPARISON: Prior study of 06/30/2016 FINDINGS: Normal talus, calcaneus, and tarsal bones. Normal visualized subtalar, talonavicular, calcaneocuboid, tarsal and tarsometatarsal articulations. Normal metatarsi. Normal metatarsophalangeal joint of the great toe. Normal tibial and fibular sesamoid bones. Normal interphalangeal joint of the great toe. Normal phalanges of the great toe. Normal second through fifth metatarsophalangeal joints. Normal interphalangeal joints and phalanges of the lesser toes. The soft tissue structures are unremarkable. RAD/Foot min 3 Views IMPRESSION: Normal x-ray examination of the foot. Electronically Signed: Dante Elmore MD at 17:18 EST , Service support ,
--- NOTE | 2019-03-07 17:48 | ED.DCSUM_ITS ---
- ER Visit Summary Date of Service: 03/07/19 Chief Complaint: Fall History of Present Illness: The patient is a [address] Hines. She reports that this morning she was walking the dog and she is not sure what happened. She thinks she may have tripped over the leash. She fell onto her left leg. She reports that she has left knee pain is 7 out of 10 in severity, left ankle pain that is 10 out of 10 severity, and left foot pain that is 10 out of 10 in severity. She denies any blow to the head or loss of consciousness. She is not on anticoagulants. She denies any neck, back, shoulder, wrist, or hip pain. Physical Examination: Vitals: Stable. Afebrile. Neck: No vertebral tenderness. Full ROM without difficulty. Cleared by NEXUS criteria. Back: No vertebral tenderness. General: A&O x 3. NAD. Cardiovascular exam: Regular rate and rhythm, no murmur, rub or gallop. Respiratory exam: Chest nontender. No crepitus. Clear to auscultation bilaterally. No wheezes or stridor. Abdominal exam: Soft, nontender, nondistended, normal bowel sounds. No pain in RUQ or LUQ specifically. No peritoneal signs. Extremity: Abrasion to the anterior lateral left knee. Is moderately tender to palpation. No appreciable joint effusion. She has full range of motion without difficulty. Pain, but no ligamentous instability with anterior/posterior drawer and medial/lateral stress. She has mild diffuse tenderness palpation over her tibia. Moderate tenderness palpation over the lateral malleolus. No pain over the medial malleolus. She has mild diffuse pain over her foot. There is a contusion to her third toe. 2+ dorsalis pedis pulse. Test Results: Clinical Impression(s) from Imaging Studies Tibia/Fibula X-Ray 03/07/19 16:40 IMPRESSION: Normal x-ray examination of the tibia and fibula. Electronically Signed: Dante Elmore MD at 17:20 EST , Service support , Foot X-Ray 03/07/19 16:41 IMPRESSION: Normal x-ray examination of the foot. Electronically Signed: Dante Elmore MD at 17:18 EST , Service support , Emergency Department Course and Treatment: Patient refused pain medications. She is resting comfortably. Treatment Plan: Patient will be discharged with a walking boot. Instructed to follow-up with her primary care physician and/or Dr. Guillermo in 1 week if not improving. Return to the emergency department for any worsening symptoms. Disposition: To home in improved and stable condition. Impression: 1. Fall. 2. Left knee pain, acute. 3. Left ankle sprain. 4. Left foot sprain. This note was generated with [employer] dictation software. It may contain incorrect words, spelling, and punctuation that were not noted in review of the chart prior to signing ED Disposition - Plan for ED Patient: Instructions: KNEE PAIN, Uncertain Cause, Sprain, Ankle, with X-Ray Referrals: Peter Robertson MD [Primary Care Provider] - 1 Week if not improving Keon Guillermo DPM [STAFF PHYSICIAN] - As Needed
== END 2019-03-07 18:18 | disposition home or self-care (01) ==
LOC: ED 17:04
PROVIDERS: Emergency Provider Emergency Medicine; Family Provider Family Medicine; PCP Family Medicine
DX: S93.402A Sprain of unspecified ligament of left ankle, initial encounter (principal); S93.602A Unspecified sprain of left foot, initial encounter; M25.562 Pain in left knee; W18.09XA Striking against other object with subsequent fall, initial encounter; Y93.K1 Activity, walking an animal; I10 Essential (primary) hypertension; Z79.899 Other long term (current) drug therapy
CPT/HCPCS: 73590; 73630; 99285

== ENCOUNTER 2019-08-27 16:47 | Emergency (ER) | payer MEDICAID, SELFPAY ==
[2019-08-27 16:48] VITALS: BP 159/99; PULSE 118; RESP 16; TEMP 36.9; O2SAT 98; BMI 40.7
--- NOTE | 2019-08-27 17:05 | EKG12_ITS ---
Test Reason : DIZZINESS Blood Pressure : / mmHG Vent. Rate : 095 BPM Atrial Rate : 095 BPM P-R Int : 178 ms QRS Dur : 092 ms QT Int : 378 ms P-R-T Axes : 050 -15 063 degrees QTc Int : 475 ms Normal sinus rhythm Nonspecific T wave abnormality Prolonged QT Abnormal ECG Confirmed by STACY WYMAN, TERENCE ([id number]), restaurant expeditor ANDRE ABDUL ([id number]) on 08/29/2019 1:21:43 PM Referred By: LINDA Confirmed By:TERENCE KUMAR MD
--- NOTE | 2019-08-27 17:07 | ED.VIS.GEN ---
History of Present Illness Informant: Patient Onset: Today Context: Sudden Onset Timing: Continuous Quality: near syncope Location: head Current Severity: Moderate Maximum Severity: Severe Worsened by: being outside in heat Relieved by: nothing Associated Symptoms: lightheaded Narrative: 33-year-old female presents complaining of near syncope. She was at her daughter's baby shower. She felt like she was in a pass out like her heart was racing she was having palpitations and was nauseated. She had to go inside and rest. At first she thought it was due to the heat but symptoms did not resolve and now she presents to the emergency department. She denies any current chest pain she does not feel short of breath she has been feeling well up until this other than being diagnosed with a UTI last week which she took her last antibiotic today. She is no longer having urinary symptoms. No vomiting or diarrhea. No symptoms of bleeding. No fevers. No myalgias. No cough. Patient not concerned for coronavirus and she states that she has not been around anyone who is tested positive for coronavirus Prior similar symptoms: Yes Recent Illness/Hospitalization: No <Ramos Bergeron - Last Filed: 08/27/19 17:18> <Caden Braden - Last Filed: 08/27/19 18:13> Chief Complaint: Anxiety Past Medical History Prior records reviewed: Yes Past Medical History: - - anxiety Surgical History: dilatation and curettage, hysterectomy, - - Recent total vaginal hysterectomy, D&C, bilateral tubal ligation. Smoking Status: Former smoker - Family History Maternal Family History: Reports: Diabetes, - Paternal Family History: Reports: - - Patient denies any paternal family history including heart disease, diabetes or cancer. <Ramos Bergeron - Last Filed: 08/27/19 17:18> <Caden Braden - Last Filed: 08/27/19 18:13> - Allergies and Home Meds Allergies/Adverse Reactions: Allergies Bleach (Sodium Hypochlorite) Allergy (Verified 08/27/19 16:48) Hives heparin Allergy (Verified 08/27/19 16:48) Other amoxicillin [Amoxicillin] Adverse Reaction (Verified 08/27/19 16:48) Rash citalopram hydrobromide [From Celexa] Adverse Reaction (Verified 08/27/19 16:48) Mood mood changes Primary Care Physician: Peter Robertson MD [Primary Care Provider] - Review of Systems All systems negative except as indicated General: Denies: Chills, Fever, Sweats Eyes: Denies: Visual changes - bilaterally, Diplopia ENT: Denies: Rhinorrhea, Sore throat Cardiovascular: Denies: Chest pain, Palpitations Respiratory: Denies: Dyspnea, Cough, Dyspnea on exertion Gastrointestinal: Denies: Abdominal pain, Nausea, Vomiting, Diarrhea, Melena, Hematochezia Genitourinary: Denies: Dysuria, Hematuria, Frequency Musculoskeletal: Denies: Back pain, Extremity Pain Skin: Denies: Rash, Wounds Neurological: Denies: Headache, Weakness, Numbness <Ramos Bergeron - Last Filed: 08/27/19 17:18> Physical Exam Vital Signs/Narrative: Vital Signs Temp Pulse Resp BP Pulse Ox 08/27/19 16:48 98.5 F 118 H 16 159/99 H 98 Inital Vital Signs reviewed: Yes General: Well nourished, Well developed, Obese, No Acute Distress Head: Normocephalic, Atraumatic Eyes: Perrl, EOMI ENT: Moist mucous membranes, No rhinorrhea Neck: Supple, Nontender Cardiovascular: Regular rate, Regular rhythm, No murmurs Respiratory: No distress, CTA bilaterally, Chest nontender Abdomen: Soft, Nontender, Nondistended, Normal bowel sounds Back: Nontender, Normal Inspection Extremities: Nontender, No edema Skin: Normal color, No rash Neurological: Alert, Oriented x3, Cranial nerves II-XII grossly intact, Normal Strength, Normal Sensation, Normal Gait Psychological: Normal affect, Normal Mood <Ramos Bergeron - Last Filed: 08/27/19 17:18> Vital Signs/Narrative: Vital Signs Temp Pulse Resp BP Pulse Ox 08/27/19 16:48 98.5 F 118 H 16 159/99 H 98 <Caden Braden - Last Filed: 08/27/19 18:13> Diagnostic/Tx/Re-eval - Medical Decision Making Dr. Braden dictating patient seen with Ramos agree with history and physical as above presents with basically feeling lightheaded was out in the heat lit very little to eat or drink, no head neck chest or abdominal pain, on exam her vital signs she is slightly tachycardic to 110 she denies fever cough chest pain shortness of breath or abdominal pain her physical exam shows an unremarkable HEENT head neck chest abdominal exam abdomen soft nontender upper lower extremities normal she is awake alert moving all 4 extremities this time she underwent ED evaluation her EKG showed a sinus rhythm rate 95 no acute injury pattern, her screening ED evaluation labs and chest x-ray are unremarkable she is had no exposures to coronavirus she is received IV fluids her creatinine returned slightly elevated at 1.2 potassium 3.0 supplemented, she is comfortable with discharge home to continue to follow with her outpatient providers and avoid the heat exposure Home stable Impression transient lightheadedness dehydration heat exposure <Caden Braden - Last Filed: 08/27/19 18:13> ED Disposition <Ramos Bergeron - Last Filed: 08/27/19 17:18> <Caden Braden - Last Filed: 08/27/19 18:13> - Plan for ED Patient: Diagnosis: Lightheaded, Pre-syncope Instructions: ED Near Syncope Vasovagal, ED Fainting Uncertain Cause, First Aid: Heat Exposure Referrals: Peter Robertson MD [Primary Care Provider] -
[2019-08-27] MEDS: 0.9% Normal Saline 1,000 ML 1000 ML IV (17:25)
--- NOTE | 2019-08-27 17:30 | RAD_ITS ---
STUDY: X-RAY CHEST REASON FOR EXAM: Female, 33 years old. ANXIETY -- HX OF DOUBLE PNEUMONIA LAST YEAR- HOSPITALIZED FOR 2.5 MONTHS TECHNIQUE: Single AP portable view of the chest. COMPARISON: 07/16/2018 FINDINGS: Interval removal of endotracheal tube and nasogastric tube. The lungs are clear and expanded. There is no demonstrated pleural abnormality. Normal size heart. Normal mediastinum and araceli. Normal visualized pulmonary arteries. Normal visualized aortic arch and descending thoracic aorta. Normal visualized thoracic spine. Normal visualized ribs, clavicles, and shoulders. There is no demonstrated abnormality of the visualized soft tissue structures of the upper abdomen. RAD/Chest 1 View (Portable) IMPRESSION: Normal x-ray examination of the chest. Electronically Signed: Karl Lucio MD at 17:43 EDT Tel , Service support ,
[2019-08-27 17:31] LABS: Absolute Lymphocyte Count 8.16 X10^3/uL (0.83-4.51); Absolute Neutrophil Count 4.4 X10^3/uL (2.0-7.7); Basophil# 0.05 X10^3/uL; Basophil% 0.4 % (0-1); Eosinophil# 0.22 X10^3/uL; Eosinophils% 1.6 % (0-5); Hematocrit 40.4 % (37-47); Hemoglobin 13.7 g/dL (12.0-15.0); Lymphocyte # 8.16 X10^3/ul (4.0); Lymphocyte % 59.6 % (19-41); Mean Corp Hgb Conc 33.9 g/dL (32-36); Mean Corpuscular Volume 88.4 fL (81-99); Mean Platelet Vol. 9.7 fl (6.2-12.0); Monocyte# 0.68 X10^3/uL; NRBC Flagged by Analyzer 0 % (0-5); Neutrophil # 4.43 X10^3/uL (2.7-7.7); Neutrophil % 32.2 % (47-70); POSITIVE DIFFERENTIAL YES; POSITIVE MORPHOLOGY YES; Platelet Count 271 K/mm3 (150-450); RBC Distribution Width SD 41.9 fl (35.1-43.9); Red Blood Count 4.57 M/mm3 (4.2-5.4); White Blood Count 13.7 K/mm3 (4.4-11.0)
[2019-08-27] MEDS: LORazepam 2 MG/ML Syringe 0.5 MG IV (17:36)
[2019-08-27 17:39] LABS: Differential Indicated SCAN CRITERIA MET
[2019-08-27 17:53] LABS: Anion Gap 10 (5-15); BUN 14 mg/dL (7-18); BUN/Creat Ratio 12.6 RATIO (10-20); Calcium,Total 8.8 mg/dL (8.5-10.1); Chloride 102 mmol/L (98-107); Creatinine, Serum 1.11 mg/dL (0.55-1.02); EST Glomerular Filtration Rate 59 mL/min (>60); Est Glom Filt Rate - Afr Amer 72 mL/min (>60); Estimated Creatinine Clearance 68.79 ml/min; Glucose 127 mg/dL (74-106); Sodium Level 136 mmol/L (136-145)
[2019-08-27 17:54] LABS: Red Blood Cells-Urine 0 SEEN /hpf (0-5)
[2019-08-27 18:04] LABS: Color, Urine Yellow (Yellow); Glucose, Dipstick Normal (Normal); Ketone-Dipstick 5 mg/dl (Negative); Leukocyte Esterase-Dipstick Negative /ul (Negative); Nitrite-Dipstick Negative (Negative); Occult Blood-Urine Negative /ul (Negative); Protein-Dipstick 30 mg/dl (Negative); Specific Gravity, Urine 1.015 (1.002-1.030); Urine Bilirubin Dipstick Negative (Negative); Urine Clarity Cloudy (Clear); Urine Urobilinogen Normal (Normal)
[2019-08-27 18:08] LABS: Differential Comment SCANNED
[2019-08-27 18:13] LABS: Squamous Epithelial Cells - UA 5-10 SEEN /hpf (5-10)
[2019-08-27 18:14] LABS: Bacteria 1+ /hpf (None Seen); Mucous, Urine RARE /hpf (<or=2+)
[2019-08-27 19:22] LABS: White Blood Cells 0 SEEN /hpf (0-5)
[2019-08-27 19:31] VITALS: PULSE 81; RESP 16; O2SAT 99
== END 2019-08-27 19:35 | disposition home or self-care (01) ==
LOC: ED 18:01
PROVIDERS: Emergency Provider Physician Assistant Medical; PCP Family Medicine
DX: R42 Dizziness and giddiness (principal); R55 Syncope and collapse; E66.9 Obesity, unspecified; Z87.891 Personal history of nicotine dependence
CPT/HCPCS: 71045; 80048; 81001; 85025; 93005; 96361; 96374; 99283; J7030

== ENCOUNTER 2019-10-13 15:09 | Emergency (ER) | payer MEDICAID, SELFPAY ==
[2019-10-13 15:11] VITALS: BP 126/92; PULSE 109; RESP 16; TEMP 36.6; O2SAT 97; BMI 40.7
--- NOTE | 2019-10-13 16:00 | RAD_ITS ---
STUDY: X-RAY - LEFT KNEE REASON FOR EXAM: Female, 33 years old. Fall 3 weeks ago. Generalized left knee pain. TECHNIQUE: 4 view(s) of the knee. COMPARISON: None. FINDINGS: Normal visualized distal femur. Normal visualized proximal tibia and fibula. Normal proximal tibiofibular articulation. Normal medial femorotibial compartment. Normal lateral femorotibial compartment. Normal patellofemoral articulation. The soft tissue structures are unremarkable. RAD/Knee 4 or More Views IMPRESSION: Normal x-ray examination of the knee. Electronically Signed: Karl Lucio MD at 16:23 EDT Tel , Service support ,
--- NOTE | 2019-10-13 16:23 | ED.VISSUMM ---
- ER Visit Summary Date of Service: 10/13/19 Chief Complaint: Bilateral leg pain and right breast abscess History of Present Illness: The patient is a 33 F presenting with bilateral leg pain which has been ongoing for over a year. She states she has been diagnosed with neuropathy but does not believe this diagnosis. She states she has been on multiple medications such as gabapentin in the past but was taken off of it. She is now taking Tylenol and ibuprofen. She states she developed a boil on her right breast 3 days ago. History of same. She denies fever. States she fell approximately 3 weeks ago and has been having left knee pain. She is able to ambulate. She denies bowel or bladder incontinence. Denies other complaints. Physical Examination: Vitals are stable. Patient is afebrile. Alert no acute distress. HEENT exam is unremarkable. Neck is supple. Lungs are clear and equal bilaterally. Right breast abscess 2.5 cm with fluctuance Heart is regular rate and rhythm. Abdomen is soft nontender nondistended. Extremities mild left anterior knee tenderness with active full range of motion. Normal distal pulses bilaterally Skin is warm and dry. No focal neurologic deficit. Remainder of exam is unremarkable. Emergency Department Course and Treatment: Discussed with Dr. Oliva and she will see her for follow-up. I&D was performed. Anesthetized with lidocaine. Abscess was aspirated with 18-gauge needle. Moderate amount of pus was drained. Area was irrigated. She was put on Bactrim and Keflex. She will follow-up. She is advised return to ED for worsening complaints. Disposition: Discharge home Impression: Chronic bilateral lower extremity pain, right breast abscess, I&D This note was generated with [employer] dictation software. It may contain incorrect words, spelling, and punctuation that were not noted in review of the chart prior to signing ED Disposition - Plan for ED Patient: Instructions: ED Abscess Incision And Drainage, ED Chronic Pain Prescriptions: Smz/Tmp Ds [Bactrim Ds] 1 tab PO BID #14 tab Prescription Printed Cephalexin [Keflex] 500 mg PO Q6 #40 cap Prescription Printed Referrals: Peter Robertson MD [Primary Care Provider] - Lydia Ayala MD [STAFF PHYSICIAN] -
--- NOTE | 2019-10-13 16:37 | ED.DEP ---
ED Disposition - Plan for ED Patient: Instructions: ED Abscess Incision And Drainage, ED Chronic Pain Prescriptions: Smz/Tmp Ds [Bactrim Ds] 1 tablet PO BID #14 tablet Cephalexin [Keflex] 500 mg PO Q6 #40 capsule Referrals: Peter Robertson MD [Primary Care Provider] - Lydia Ayala MD [STAFF PHYSICIAN] -
--- NOTE | 2019-10-13 16:48 | ED.DEP ---
ED Disposition - Plan for ED Patient: Instructions: ED Abscess Incision And Drainage, ED Chronic Pain Prescriptions: Smz/Tmp Ds [Bactrim Ds] 1 tab PO BID #14 tab Prescription Printed Ibuprofen 600 mg PO TID PRN PRN #30 tablet PRN Reason: Pain Or Fever Cephalexin [Keflex] 500 mg PO Q6 #40 cap Prescription Printed Referrals: Peter Robertson MD [Primary Care Provider] - Lydia Ayala MD [STAFF PHYSICIAN] -
== END 2019-10-13 16:58 | disposition home or self-care (01) ==
LOC: ED 15:54
PROVIDERS: Emergency Provider Emergency Medicine; PCP Family Medicine
DX: M79.605 Pain in left leg (principal); M79.604 Pain in right leg; G89.29 Other chronic pain; N61.1 Abscess of the breast and nipple; I10 Essential (primary) hypertension; E11.9 Type 2 diabetes mellitus without complications
CPT/HCPCS: 10060; 73564; 99283

== ENCOUNTER 2020-01-11 18:45 | Emergency (ER) | payer MEDICAID, SELFPAY ==
[2020-01-11 18:46] VITALS: BP 157/118; PULSE 121; RESP 16; TEMP 36.1; O2SAT 99; BMI 43.8
--- NOTE | 2020-01-11 19:56 | ED.DCSUM_ITS ---
- ER Visit Summary Date of Service: 01/11/20 Chief Complaint: Bilateral rib pain and neck pain History of Present Illness: The patient is a 34 F who presents with bilateral rib pain and neck pain that has been getting worse over the past 4 to 5 days. Patient saw her primary care physician who prescribed her doxycycline for sinus infection. Patient is currently taking doxycycline. Patient states that the pain is over the mid and lower ribs bilaterally but worse in the back. Patient states pain radiates up into the left side of her neck. Patient states nothing makes it better or worse. Patient denies any cough or shortness of breath. Patient does admit to some rhinorrhea. Physical Examination: Vital signs are stable. Patient is afebrile. Patient is in no acute distress. Oral mucosa is pink and moist. Oropharynx is clear. Neck is supple. Trachea is midline. There is no JVD. Heart was regular rate and rhythm. Lungs were diminished in the bases bilaterally. There is adequate respiratory effort. Abdomen is soft. Bowel sounds are normal. There is no tenderness. Cranial nerves II through XII are intact. There are no focal motor or sensory deficits noted. There is mild tenderness over the thoracic paraspinal muscles. There is no midline tenderness. There is no bony crepitance or step-off. Test Results: Portable chest x-ray was obtained. There is no acute cardiopulmonary process noted. This was interpreted by the radiologist and reviewed by myself. Emergency Department Course and Treatment: Patient was advised of her findings. Patient was instructed to take Tylenol or ibuprofen as needed for pain. Patient was instructed to continue her doxycycline as prescribed until gone. Patient was instructed to follow-up with her primary care physician in 5 to 7 days. Patient understood and was agreeable with the plan. All questions were answered. Disposition: Discharge home Impression: Chest wall pain This note was generated with [employer] dictation software. It may contain incorrect words, spelling, and punctuation that were not noted in review of the chart prior to signing ED Disposition - Plan for ED Patient: Disposition: Home or Assisted Living Diagnosis: Chest wall pain Instructions: ED Back Pain Acute or Chronic Referrals: Peter Robertson MD [Primary Care Provider] - 5-7 Days
--- NOTE | 2020-01-11 19:56 | RAD_ITS ---
HISTORY: RIB PAIN THAT RADIATES TO LEFT SIDE OF NECK EXAM: XR Chest 1 View: COMPARISON: August 27, 2019 FINDINGS: # of images incl. paperwork: 1 Lungs are clear. Heart is not enlarged. No acute osseous pathology perceived. Pulmonary vascularity is distinct. No effusions. RAD/Chest 1 View (Portable) IMPRESSION: Normal. at 2020 Reported and signed by: Paulino Leiva MD Electronically Signed: Paulino Leiva MD at 20:19 EDT Tel , Service support ,
== END 2020-01-11 21:22 | disposition home or self-care (01) ==
PROVIDERS: Emergency Provider Emergency Medicine; PCP Family Medicine
DX: R07.89 Other chest pain (principal); Z72.0 Tobacco use
CPT/HCPCS: 71045; 99282

== ENCOUNTER 2020-03-02 15:03 | Emergency (ER) | payer MEDICAID, SELFPAY ==
[2020-03-02 15:04] VITALS: BP 144/92; PULSE 105; RESP 18; TEMP 36.3; O2SAT 99; BMI 43.8
--- NOTE | 2020-03-02 15:26 | ED.DCSUM_ITS ---
History of Present Illness Informant: Patient Onset: Days Narrative: 34-year-old female with past medical history of hypertension presents with fatigue and dry mouth. She states for the last week she has been fatigued and had no energy. Over the last few days she had a dry mouth and she was treated for thrush with nystatin mouth wash and oral diflucan and she states it improved. Occasionally she has nausea and had 2-3 episodes of diarrhea this week but none today. She is still eating and drinking a normal amount. She was tested for Covid when symptoms started 1 week ago and it was negative. 3 days ago she increased her amitriptyline from 25 mg to 50 mg which she takes at bedtime for sleep. Denies fevers, chills, loss of taste or smell, vomiting, chest pain, shortness of breath, cough, abdominal pain, urinary symptoms, or blood in stool. <Carlyn Lara - Last Filed: 03/02/20 17:28> <Peggy Solitario - Last Filed: 03/02/20 23:37> Chief Complaint: General Illness Past Medical History Surgical History: dilatation and curettage, hysterectomy, - - Recent total vaginal hysterectomy, D&C, bilateral tubal ligation. Smoking Status: Current some day smoker - Family History Maternal Family History: Reports: Diabetes, - Paternal Family History: Reports: - - Patient denies any paternal family history including heart disease, diabetes or cancer. <Carlyn Lara - Last Filed: 03/02/20 17:28> <Peggy Solitario - Last Filed: 03/02/20 23:37> - Allergies and Home Meds Allergies/Adverse Reactions: Allergies Bleach (Sodium Hypochlorite) Allergy (Verified 03/02/20 15:07) Hives heparin Allergy (Verified 03/02/20 15:07) Other amoxicillin [Amoxicillin] Adverse Reaction (Verified 03/02/20 15:07) Rash citalopram hydrobromide [From Celexa] Adverse Reaction (Verified 03/02/20 15:07) Mood mood changes Primary Care Physician: Peter Robertson MD [Primary Care Provider] - Vanita Sheppard MD [STAFF PHYSICIAN] - Review of Systems General: Reports: Malaise. Denies: Chills, Fever, Sweats Eyes: Denies: Visual changes - bilaterally, Diplopia ENT: Reports: Bilateral ear pain. Denies: Rhinorrhea, Sore throat Cardiovascular: Denies: Chest pain, Palpitations Respiratory: Denies: Dyspnea, Cough, Dyspnea on exertion Gastrointestinal: Reports: Nausea, Diarrhea. Denies: Abdominal pain, Vomiting, Constipation, Melena, Hematochezia Genitourinary: Denies: Dysuria, Hematuria, Frequency Musculoskeletal: Denies: Back pain, Extremity Pain Skin: Denies: Rash, Wounds Neurological: Denies: Headache, Weakness, Parasthesia, Numbness <Carlyn Lara - Last Filed: 03/02/20 17:28> Physical Exam Vital Signs/Narrative: Vital Signs Temp Pulse Resp BP Pulse Ox 03/02/20 15:04 97.3 F L 105 H 18 144/92 H 99 General: Well nourished, Well developed, No Acute Distress Head: Normocephalic, Atraumatic Eyes: Perrl, EOMI ENT: Moist mucous membranes, No rhinorrhea, TM's clear, - Neck: Supple, Nontender Cardiovascular: Regular rate, Regular rhythm, No murmurs Respiratory: No distress, CTA bilaterally, Chest nontender Abdomen: Soft, Nontender, Nondistended, Normal bowel sounds Back: Normal Inspection Extremities: Nontender, No edema Skin: Normal color, No rash Neurological: Alert, Oriented x3, Cranial nerves II-XII grossly intact, Normal Strength, Normal Sensation Psychological: Normal affect, Normal Mood <Carlyn Lara - Last Filed: 03/02/20 17:28> Diagnostic/Tx/Re-eval Laboratory Data 03/02/20 03/02/20 03/02/20 15:45 15:45 15:45 WBC 15.1 H RBC 5.17 Hgb 16.1 H Hct 46.2 MCV 89.4 MCH 31.1 MCHC 34.8 RDW Std Deviation 42.8 RDW Coeff of Kendra 13.1 Plt Count 278 MPV 11.1 Immature Gran % (Auto) 0.900 Neut % (Auto) 35.6 L Lymph % (Auto) 56.3 H [place] % (Auto) 5.5 Eos % (Auto) 1.2 Baso % (Auto) 0.5 Absolute Neuts (auto) 5.4 Absolute Lymphs (auto) 8.51 H Nucleated RBC % 0 Sodium 136 Potassium 3.2 L Chloride 102 Carbon Dioxide 27.0 Anion Gap 7 BUN 16 Creatinine 1.07 H Estim Creat Clear Calc 70.68 Est GFR (MDRD) Af Amer 75 Est GFR (MDRD) Non-Af 62 BUN/Creatinine Ratio 15.0 Glucose 119 H Calcium 8.9 Urine Color Yellow Urine Clarity Clear Urine pH 6.0 Ur Specific [place] 1.010 Urine Protein 30 H Urine Glucose (UA) Normal Urine Ketones Negative Urine Occult Blood Negative Urine Nitrite Negative Urine Bilirubin Negative Urine Urobilinogen Normal Ur Leukocyte Esterase Negative Urine RBC 0 SEEN Urine WBC 0 SEEN Ur Squamous Epith Cells 0-5 SEEN Urine Bacteria 1+ Urine Mucus 0 SEEN - Medical Decision Making Patient presented with generalized fatigue, nausea, and dry mouth that started several days ago. She appears well nontoxic. Vital signs show tachycardia of 105, otherwise normal. Labs show leukocytosis of 15 which is within her baseline. Hgb mildly elevated at 16.1, hypokalemia of 3.2, otherwise normal electrolytes and renal function. Urinalysis negative. She has no respiratory symptoms or indication for imaging. She was given oral potassium replacement. She was advised to increase oral hydration and decrease her amitriptyline back to 25 mg as symptoms occurred around dosage increase and may be anticholinergic side effects. Follow up with PCP on Thursday. She was also given hematology referral for chronic leukocytosis. She was agreeable with this plan and discharged home in stable condition. <Carlyn Lara - Last Filed: 03/02/20 17:28> - Medical Decision Making Patient seen and evaluated with physicians regulatory affairs assistant. Patient was independently interviewed and examined. Patient presents with fatigue and dry mouth for the past several days. She was noted to have a recent increase in her amitriptyline dose. Patient sitting upright in bed no acute distress. She appears anxious and intermittently tearful. Head neck examination is unremarkable. Heart is regular rate and rhythm. Lung sounds are clear. Abdomen is soft and nontender. Lab work is reviewed with the patient. She does have an elevated white count to 15, however on review of her prior labs her white count has always been elevated. She states she is never seen a internal combustion engineer but I do recommend she follow-up with one regarding this. She also tells me that her mother has a chronically elevated white count of 18. Patient's potassium level is slightly low. This is replaced. I recommended decreasing her amitriptyline back down through the weekend and contacting her physician on Thursday for further in structions. <Peggy Solitario - Last Filed: 03/02/20 23:37> ED Disposition <Carlyn Lara - Last Filed: 03/02/20 17:28> <Peggy Solitario - Last Filed: 03/02/20 23:37> - Plan for ED Patient: Disposition: Home or Assisted Living Diagnosis: Fatigue, Dry mouth, unspecified, Medication side effects, Leukocytosis Instructions: ED ADVERSE DRUG REACTION Allergic Referrals: Peter Robertson MD [Primary Care Provider] - Vanita Sheppard MD [STAFF PHYSICIAN] -
[2020-03-02 16:14] LABS: Mucous, Urine 0 SEEN /hpf (<or=2+); Red Blood Cells-Urine 0 SEEN /hpf (0-5); White Blood Cells 0 SEEN /hpf (0-5)
[2020-03-02 16:19] LABS: Color, Urine Yellow (Yellow); Glucose, Dipstick Normal (Normal); Ketone-Dipstick Negative (Negative); Leukocyte Esterase-Dipstick Negative /ul (Negative); Nitrite-Dipstick Negative (Negative); Occult Blood-Urine Negative /ul (Negative); Protein-Dipstick 30 mg/dl (Negative); Urine Bilirubin Dipstick Negative (Negative); Urine Clarity Clear (Clear); Urine Urobilinogen Normal (Normal)
[2020-03-02 16:34] LABS: Anion Gap 7 (5-15); BUN 16 mg/dL (7-18); Calcium,Total 8.9 mg/dL (8.5-10.1); Chloride 102 mmol/L (98-107); Creatinine, Serum 1.07 mg/dL (0.55-1.02); EST Glomerular Filtration Rate 62 mL/min (>60); Est Glom Filt Rate - Afr Amer 75 mL/min (>60); Estimated Creatinine Clearance 70.68 ml/min; Glucose 119 mg/dL (74-106); Potassium 3.2 mmol/L (3.5-5.1); Sodium Level 136 mmol/L (136-145)
[2020-03-02 16:49] LABS: Absolute Lymphocyte Count 8.51 X10^3/uL (0.83-4.51); Absolute Neutrophil Count 5.4 X10^3/uL (2.0-7.7); Basophil# 0.07 X10^3/uL; Basophil% 0.5 % (0-1); Eosinophil# 0.18 X10^3/uL; Eosinophils% 1.2 % (0-5); Hematocrit 46.2 % (37-47); Hemoglobin 16.1 g/dL (12.0-15.0); Lymphocyte # 8.51 X10^3/ul (4.0); Lymphocyte % 56.3 % (19-41); Mean Corp Hgb Conc 34.8 g/dL (32-36); Mean Corpuscular Hgb 31.1 pg (27.0-32.0); Mean Corpuscular Volume 89.4 fL (81-99); Mean Platelet Vol. 11.1 fl (6.2-12.0); Monocyte# 0.83 X10^3/uL; Monocyte% 5.5 % (0-10); NRBC Flagged by Analyzer 0 % (0-5); Neutrophil # 5.39 X10^3/uL (2.7-7.7); Neutrophil % 35.6 % (47-70); POSITIVE DIFFERENTIAL YES; POSITIVE MORPHOLOGY YES; Platelet Count 278 K/mm3 (150-450); RBC Distribution Width CV 13.1 % (11.6-14.6); RBC Distribution Width SD 42.8 fl (35.1-43.9); Red Blood Count 5.17 M/mm3 (4.2-5.4); White Blood Count 15.1 K/mm3 (4.4-11.0)
[2020-03-02 16:50] LABS: Bacteria 1+ /hpf (None Seen); Squamous Epithelial Cells - UA 0-5 SEEN /hpf (5-10)
[2020-03-02 16:54] LABS: Differential Indicated SCAN CRITERIA MET
[2020-03-02 17:24] VITALS: BP 144/88; PULSE 89; RESP 16; O2SAT 98
[2020-03-02 17:49] LABS: Reactive Lymphocyte 2+
== END 2020-03-02 17:43 | disposition home or self-care (01) ==
PROVIDERS: Emergency Provider Physician Assistant; PCP Family Medicine
DX: R53.83 Other fatigue (principal); R68.2 Dry mouth, unspecified; T43.015A Adverse effect of tricyclic antidepressants, initial encounter; E87.6 Hypokalemia; D72.829 Elevated white blood cell count, unspecified; I10 Essential (primary) hypertension; F17.200 Nicotine dependence, unspecified, uncomplicated
CPT/HCPCS: 80048; 81001; 85025; 99282

== ENCOUNTER 2020-06-10 22:19 | Emergency (ER) | payer MEDICAID, SELFPAY ==
[2020-04-19 14:16] VITALS: BMI 43.7
[2020-06-10 22:20] VITALS: BP 141/93; PULSE 92; RESP 18; TEMP 36.2; O2SAT 95; BMI 43.2
--- NOTE | 2020-06-10 22:28 | ED.DCSUM_ITS ---
History of Present Illness Chief Complaint: Hypoglycemia Informant: Patient Onset: Today Context: Gradual Onset Timing: Continuous Current Severity: Mild Maximum Severity: Mild Narrative: The patient is a 34-year-old female with medical history significant for insulin-dependent diabetes who presents to the emergency department concern for low blood sugar. The patient states her blood sugar normally runs 90-1 10. She states that she did eat tonight at about 7:00. She states that shortly after, she took her blood pressure was 98. She then repeated it was down to 80. She states that she was very nervous because it has never been this low. She denies weakness, lightheadedness, or change in medications. She states she is otherwise been in her normal state of health. Prior similar symptoms: No Recent Illness/Hospitalization: No Past Medical History - Allergies and Home Meds Allergies/Adverse Reactions: Allergies Bleach (Sodium Hypochlorite) Allergy (Verified 04/19/20 14:13) Hives heparin Allergy (Verified 04/19/20 14:13) Other amoxicillin [Amoxicillin] Adverse Reaction (Verified 04/19/20 14:13) Rash citalopram hydrobromide [From Celexa] Adverse Reaction (Verified 04/19/20 14:13) Mood mood changes Primary Care Physician: Nallely Butler NP, SCREENING TECHNICIAN-C [Primary Care Provider] - Prior records reviewed: Yes Past Medical History: - - Diabetes, hypertension, anxiety, depression Surgical History: dilatation and curettage, hysterectomy, - - Recent total vaginal hysterectomy, D&C, bilateral tubal ligation. Smoking Status: Current some day smoker - Family History Maternal Family History: Family History (Last Reviewed 04/19/20 @ 14:13 by Cate Enamorado) Mother Diabetes Hypertension Asthma Sister Prediabetes Grandmother Kidney failure Family History: Reports: Diabetes, - Paternal Family History: Family History (Last Reviewed 04/19/20 @ 14:13 by Cate Enamorado) Mother Diabetes Hypertension Asthma Sister Prediabetes Grandmother Kidney failure Family History: Reports: - - Patient denies any paternal family history including heart disease, diabetes or cancer. Review of Systems General: Denies: Chills, Fever, Sweats Eyes: Denies: Visual changes - bilaterally, Diplopia ENT: Denies: Rhinorrhea, Sore throat Cardiovascular: Denies: Chest pain, Palpitations Respiratory: Denies: Dyspnea, Cough, Dyspnea on exertion Gastrointestinal: Denies: Abdominal pain, Nausea, Vomiting, Diarrhea, Melena, Hematochezia Genitourinary: Denies: Dysuria, Hematuria, Frequency Musculoskeletal: Denies: Back pain, Extremity Pain Skin: Denies: Rash, Wounds Neurological: Denies: Headache, Weakness, Numbness Physical Exam Vital Signs/Narrative: Vital Signs Temp Pulse Resp BP Pulse Ox 06/10/20 22:20 97.2 F L 92 18 141/93 H 95 Inital Vital Signs reviewed: Yes General: Well nourished, Well developed, No Acute Distress Head: Normocephalic, Atraumatic Eyes: Perrl, EOMI ENT: Moist mucous membranes, No rhinorrhea Neck: Supple, Nontender Cardiovascular: Regular rate, Regular rhythm, No murmurs Respiratory: No distress, CTA bilaterally, Chest nontender Abdomen: Soft, Nontender, Nondistended, Normal bowel sounds Back: Nontender, Normal Inspection Extremities: Nontender, No edema Skin: Normal color, No rash Neurological: Alert, Oriented x3, Cranial nerves II-XII grossly intact, Normal Strength, Normal Sensation Psychological: Normal affect, Normal Mood Diagnostic/Tx/Re-eval Abnormal Lab Results 06/10/20 06/10/20 22:35 22:35 WBC 21.7 H RBC 5.09 Hgb 15.8 H Hct 45.9 MCV 90.2 MCH 31.0 MCHC 34.4 RDW Std Deviation 43.5 RDW Coeff of Kendra 13.2 Plt Count 330 MPV 10.4 Immature Gran % (Auto) 1.500 H Neut % (Auto) 43.9 L Lymph % (Auto) 48.4 H [place] % (Auto) 4.6 Eos % (Auto) 1.1 Baso % (Auto) 0.5 Absolute Neuts (auto) 9.5 H Absolute Lymphs (auto) 10.51 H Nucleated RBC % 0 Differential Comment SCANNED Sodium 139 Potassium 3.2 L Chloride 102 Carbon Dioxide 28.0 Anion Gap 9 BUN 29 H Creatinine 1.40 H Estim Creat Clear Calc 54.02 Est GFR (MDRD) Af Amer 55 L Est GFR (MDRD) Non-Af 45 L BUN/Creatinine Ratio 20.7 H Glucose 94 Calcium 9.9 - Medical Decision Making The patient presents concerned that her blood sugar was low. She states the lowest reading she got was 80. I did consult with her that this is in the normal range. She states however she normally runs 90-1 10. She is totally asymptomatic. I did do blood work. She has mild chronic renal disease with no significant change. She does have a significant leukocytosis with lymphocytic predominance. In review of the records, she has had this multiple times. She is actually seen heme-onc as an outpatient with no significant cause found. The patient states that 10 days ago, she was prescribed a burst of prednisone for allergic reaction. She states she took it for 4 days but stopped because her sugars were going high. I do feel this is likely also contributing to her leukocytosis. Her blood sugar is 94. She is resting comfortably. At this point, I do not suspect a dangerous process. She is on no other renally cleared long acting antihyperglycemics. The patient be discharged home. Impression 1. Reported hypoglycemia ED Disposition - Plan for ED Patient: Instructions: ED DIABETES Hypoglycemia Oral Agent Referrals: Nallely Butler NP, SCREENING TECHNICIAN-C [Primary Care Provider] -
[2020-06-10 22:42] LABS: Absolute Lymphocyte Count 10.51 X10^3/uL (0.83-4.51); Absolute Neutrophil Count 9.5 X10^3/uL (2.0-7.7); Basophil# 0.11 X10^3/uL; Basophil% 0.5 % (0-1); Eosinophil# 0.23 X10^3/uL; Eosinophils% 1.1 % (0-5); Hematocrit 45.9 % (37-47); Hemoglobin 15.8 g/dL (12.0-15.0); Lymphocyte # 10.51 X10^3/ul (4.0); Lymphocyte % 48.4 % (19-41); Mean Corp Hgb Conc 34.4 g/dL (32-36); Mean Corpuscular Volume 90.2 fL (81-99); Mean Platelet Vol. 10.4 fl (6.2-12.0); Monocyte# 0.99 X10^3/uL; Monocyte% 4.6 % (0-10); NRBC Flagged by Analyzer 0 % (0-5); Neutrophil # 9.54 X10^3/uL (2.7-7.7); Neutrophil % 43.9 % (47-70); POSITIVE DIFFERENTIAL YES; Platelet Count 330 K/mm3 (150-450); RBC Distribution Width CV 13.2 % (11.6-14.6); RBC Distribution Width SD 43.5 fl (35.1-43.9); Red Blood Count 5.09 M/mm3 (4.2-5.4); White Blood Count 21.7 K/mm3 (4.4-11.0)
[2020-06-10 22:44] LABS: Differential Indicated SCAN CRITERIA MET
[2020-06-10 22:56] LABS: Differential Comment SCANNED
[2020-06-10 23:02] LABS: Anion Gap 9 (5-15); BUN 29 mg/dL (7-18); BUN/Creat Ratio 20.7 RATIO (10-20); Calcium,Total 9.9 mg/dL (8.5-10.1); Chloride 102 mmol/L (98-107); EST Glomerular Filtration Rate 45 mL/min (>60); Est Glom Filt Rate - Afr Amer 55 mL/min (>60); Estimated Creatinine Clearance 54.02 ml/min; Glucose 94 mg/dL (74-106); Potassium 3.2 mmol/L (3.5-5.1); Sodium Level 139 mmol/L (136-145)
[2020-06-10 23:23] VITALS: BP 142/65; PULSE 82; RESP 16; O2SAT 99
== END 2020-06-10 23:24 | disposition home or self-care (01) ==
LOC: ED 22:51
PROVIDERS: Emergency Provider Emergency Medicine; PCP Registered Nurse
DX: E11.649 Type 2 diabetes mellitus with hypoglycemia without coma (principal); I10 Essential (primary) hypertension; F17.200 Nicotine dependence, unspecified, uncomplicated; Z79.4 Long term (current) use of insulin
CPT/HCPCS: 80048; 85025; 96360; 99282; J7040; A4216

== ENCOUNTER 2020-09-03 15:25 | Emergency (ER) | payer MEDICAID, SELFPAY ==
[2020-09-03 15:26] VITALS: BP 131/95; PULSE 104; RESP 18; TEMP 36.1; O2SAT 97; BMI 44.0
--- NOTE | 2020-09-03 15:47 | EKG12_ITS ---
Test Reason : CP Blood Pressure : / mmHG Vent. Rate : 098 BPM Atrial Rate : 098 BPM P-R Int : 178 ms QRS Dur : 088 ms QT Int : 358 ms P-R-T Axes : 029 -19 014 degrees QTc Int : 457 ms Normal sinus rhythm Normal ECG Confirmed by STACY WYMAN, TERENCE ([id number]), managing editor ANDRE ABDUL ([id number]) on 09/06/2020 9:58:20 AM Referred By: DANGELO Confirmed By:TERENCE KUMAR MD
--- NOTE | 2020-09-03 16:15 | ED.VIS.CHEST ---
HPI History of Present Illness Chief Complaint: Chest Pain Onset/Context/Timing Onset: Days (3) Timing: Intermittent Quality: Positive for Sharp Location: Substernal and Right Chest Worsened By: Nothing Relieved By: Nothing Associated Symptoms: Negative for Nausea Narrative Narrative: Patient presenting for evaluation secondary chest pain. Patient states that over the course the last 3 days she has been having intermittent issues with chest pain. Is a sharp type pain that will be substernal and radiate to her right shoulder. No real exacerbating relieving factors this will happen both with exertion and at rest on its not associated with any sort of lightheadedness palpitations or shortness of breath. States she is never really had any prior similar episodes in the past she initially thought it was from her anxiety she was taking her Xanax for this. She denies any recent infectious signs or symptoms associated with this. Patient does have a history of hypertension diabetes and obesity and she smokes. No prior history of cardiovascular disease. She does have a prior history of a provoked DVT after a prolonged stay in the hospital after hysterectomy. She not currently anticoagulated. Patient also states that she was started on Topamax and Adipex about 3 weeks ago. [facility] Medical History DVT (deep venous thrombosis) Fatty liver Gallbladder problem Type 2 diabetes mellitus Home Medications albuterol sulfate [Ventolin HFA] 2 puff IH 4X/DAY PRN PRN 06/17/18 [History Last Taken Unknown] fluticasone propionate 1 spray NASAL DAILY PRN 06/17/18 [History Last Taken Unknown] atorvastatin 20 mg PO QHS 12/03/18 [History Last Taken Unknown] buspirone 7.5 mg PO BID 12/03/18 [History Last Taken Unknown] cetirizine 10 mg PO DAILY 12/03/18 [History Last Taken Unknown] famotidine 20 mg PO DAILY 12/03/18 [History Last Taken Unknown] ferrous sulfate 325 mg PO DAILY 12/03/18 [History Last Taken Unknown] hydrochlorothiazide 50 mg PO DAILY 12/03/18 [History Last Taken Unknown] metoprolol tartrate 12.5 mg PO BID 12/03/18 [History Last Taken Unknown] amitriptyline 10 mg PO QHS 08/27/19 [History Last Taken Unknown] pregabalin 75 mg PO BID 01/11/20 [History Last Taken Unknown] metformin 500 mg PO BID 03/29/20 [History Last Taken Unknown] ondansetron HCl 8 mg PO Q8H PRN PRN 03/29/20 [History Last Taken Unknown] sertraline 50 mg PO DAILY 04/19/20 [History Last Taken Unknown] alprazolam 0.5 mg PO QHS 06/10/20 [History Last Taken Unknown] Allergy/AdvReac Type Severity Reaction Status Date / Time Bleach (Sodium Hypochlorite) Allergy Hives Verified 09/03/20 15:26 heparin Allergy Other Verified 09/03/20 15:26 amoxicillin [Amoxicillin] AdvReac Rash Verified 09/03/20 15:26 citalopram hydrobromide AdvReac Mood Verified 09/03/20 15:26 [From Celexa] Family History Mother Diabetes Hypertension Asthma Sister Prediabetes Grandmother Kidney failure maternal Surgical History H/O dilation and curettage H/O tubal ligation History of partial hysterectomy Social History Smoking Status: Current every day smoker tobacco type: cigarettes ROS ROS ED Constitutional Constitutional ED: Denies fever(s) Eyes Eyes: Denies change in vision ENT ENT ED: Denies rhinorrhea or sore throat Cardiovascular Cardiovascular: Reports as per HPI Respiratory/Chest Respiratory/Chest: Denies cough, dyspnea or dyspnea on exertion Gastrointestinal Gastrointestinal: Denies abdominal pain, nausea or vomiting Genitourinary Genitourinary ED: Denies dysuria Musculoskeletal Musculoskeletal: Denies myalgias or neck pain Integumentary Denies rash Neurologic Neurologic: Denies headache(s), paresthesias or weakness Psychiatric Psychiatric: Denies depression Endocrine Endocrinology: Denies polydipsia or polyuria Hematologic/Lymphatic Hematologic/Lymphatic: Denies easy bleeding or easy bruising Allergic/Immunologic Allergic/Immunologic ED: Denies urticaria EXAM Physical Exam Const Vital Signs: 09/03/20 15:26 09/03/20 16:56 09/03/20 17:02 Temperature 97 F L Temperature Source Temporal Pulse Rate 104 H 99 Respiratory Rate 18 18 Blood Pressure 131/95 H 154/91 H Blood Pressure Mean 107 112 Pulse Ox 97 100 Oxygen Delivery Method Room Air Room Air Room Air Positive well nourished, well developed and obese General Appearance ED: well developed and NAD Nutritional Appearance: obese HEENT Reports moist mucous membranes normocephalic and atraumatic Eyes EOMs intact bilaterally Neck no lymphadenopathy, supple and no JVD Chest Wall inspection of chest normal and palpation of chest normal Chest Narrative: No evidence of vesicular rash Resp normal respiratory effort and clear to auscultation bilaterally Auscultation: Negative for rales, rhonchi or wheezes Cardio regular rate, regular rhythm, S1 normal heart sound, S2 normal heart sound and no murmurs Peripheral Pulses: radial pulses present and posterior tibial pulses present GI normal to inspection, nondistended, normoactive bowel sounds, soft to palpation and non-tender Extremity normal to inspection Extremity Narrative: Calves are supple no palpable cord General Extremety ED: Negative for edema or tenderness General Extremity: Negative for edema Neuro oriented x3 and no sensory deficits noted Sensorium / Orientation: awake and alert Motor Exam: strength abnormal Psych mental status grossly normal Skin no rashes or lesions noted Heart Score History: Slightly/Non-Suspicious ECG: Normal Age: </= 45 years Risk Factors: >/= 3 Risk Factors or History of CAD Troponin: </= Normal Limit Score: 2 MDM MDM MDM Narrative Medical decision making narrative: Patient presented with atypical sounding chest pain. EKG was found to be unremarkable. CBC unremarkable, chemistry shows the patient's creatinine at baseline at 1.4 no evidence of significant electrolyte derangements potassium mildly low at 3.3 troponin found to be negative. Chest x-ray by my personal review as well as radiology is found to be negative. Patient's heart score is a maximum of 2, this seems really atypical. I do not think this is cardiac chest pain. Patient does not have hypoxia or tachycardia do not think that this is a presentation of a PE and her last blood clot was a provoked blood clot and she has no provoking factors. I believe the patient can safely be discharged. Patient was given reassurance she was discharged in stable condition. Lab Data Labs: Laboratory Results - last 24 hr 09/03/20 09/03/20 16:05 16:05 WBC 11.0 RBC 5.10 Hgb 15.3 H Hct 45.6 MCV 89.4 MCH 30.0 MCHC 33.6 RDW Std Deviation 42.6 RDW Coeff of Kendra 13.0 Plt Count 311 MPV 10.0 Immature Gran % (Auto) 1.600 H Neut % (Auto) 37.5 L Lymph % (Auto) 53.5 H [place] % (Auto) 5.5 Eos % (Auto) 1.4 Baso % (Auto) 0.5 Absolute Neuts (auto) 4.1 Absolute Lymphs (auto) 5.89 H Nucleated RBC % 0 Differential Comment Platelet Estimate ADEQUATE RBC Morphology NORM C+C Sodium 139 Potassium 3.3 L Chloride 105 Carbon Dioxide 25.0 Anion Gap 9 BUN 18 Creatinine 1.43 H Estim Creat Clear Calc 52.89 Est GFR (MDRD) Af Amer 53 L Est GFR (MDRD) Non-Af 44 L BUN/Creatinine Ratio 12.6 Glucose 82 Calcium 9.8 Troponin I < 0.015 Radiography Chest X-Ray - ED: Read by ED Physician and Normal Diagnostic Testing: Radiology Impression Chest X-Ray 09/03/20 16:20 IMPRESSION: Normal x-ray examination of the chest. Electronically Signed: Karl Lucio MD at 16:37 EDT Tel , Service support , Discharge Plan Triage Chief Complaint: Chest Pain ED Provider: Gonzalez Crawford Dx/Rx/DC Orders Clinical Impression: Chest pain Instructions: ED Chest Pain, Noncardiac Prescriptions: No Action albuterol sulfate [Ventolin HFA] 18 GM HFA aerosol inhaler 2 puff IH 4X/DAY PRN PRN (Reason: Allergies) RF: 0 fluticasone propionate 1 SPRAY spray,suspension 1 spray NASAL DAILY PRN (Reason: Allergies) RF: 0 buspirone 5 MG tablet 7.5 mg PO BID RF: 0 atorvastatin 20 MG tablet 20 mg PO QHS RF: 0 famotidine 20 MG tablet 20 mg PO DAILY RF: 0 ferrous sulfate 325 MG tablet 325 mg PO DAILY RF: 0 hydrochlorothiazide 25 MG tablet 50 mg PO DAILY RF: 0 metoprolol tartrate 25 MG tablet 12.5 mg PO BID RF: 0 cetirizine 10 MG capsule 10 mg PO DAILY RF: 0 amitriptyline 10 MG tablet 10 mg PO QHS RF: 0 pregabalin 75 MG capsule 75 mg PO BID RF: 0 metformin 500 MG tablet 500 mg PO BID RF: 0 ondansetron HCl 8 MG tablet 8 mg PO Q8H PRN PRN (Reason: Nausea) RF: 0 sertraline 50 MG tablet 50 mg PO DAILY RF: 0 alprazolam 0.5 MG tablet 0.5 mg PO QHS RF: 0 Primary Care Provider: Nallely Butler NP Referrals: Nallely Butler NP, LEGAL TRANSCRIPTIONIST-C [Primary Care Provider] - 3-5 Days Disposition Disposition: Home, self care
[2020-09-03 16:17] LABS: Absolute Lymphocyte Count 5.89 X10^3/uL (0.83-4.51); Absolute Neutrophil Count 4.1 X10^3/uL (2.0-7.7); Basophil# 0.06 X10^3/uL; Basophil% 0.5 % (0-1); Eosinophil# 0.15 X10^3/uL; Eosinophils% 1.4 % (0-5); Hematocrit 45.6 % (37-47); Hemoglobin 15.3 g/dL (12.0-15.0); Lymphocyte # 5.89 X10^3/ul (0.83-4.51); Lymphocyte % 53.5 % (19-41); Mean Corp Hgb Conc 33.6 g/dL (32-36); Mean Corpuscular Volume 89.4 fL (81-99); Monocyte# 0.61 X10^3/uL; Monocyte% 5.5 % (0-10); NRBC Flagged by Analyzer 0 % (0-5); Neutrophil # 4.11 X10^3/uL (2.7-7.7); Neutrophil % 37.5 % (47-70); POSITIVE DIFFERENTIAL YES; Platelet Count 311 K/mm3 (150-450); RBC Distribution Width SD 42.6 fl (35.1-43.9)
[2020-09-03 16:19] LABS: Differential Indicated SCAN CRITERIA MET
--- NOTE | 2020-09-03 16:20 | RAD_ITS ---
STUDY: X-RAY CHEST REASON FOR EXAM: Female, 34 years old. chest pain TECHNIQUE: Single AP portable view of the chest. COMPARISON: 01/11/2020 FINDINGS: The lungs are clear and expanded. There is no demonstrated pleural abnormality. Normal size heart. Normal mediastinum and araceli. Normal visualized pulmonary arteries. Normal visualized aortic arch and descending thoracic aorta. Normal visualized thoracic spine. Normal visualized ribs, clavicles, and shoulders. There is no demonstrated abnormality of the visualized soft tissue structures of the upper abdomen. RAD/Chest 1 View (Portable) IMPRESSION: Normal x-ray examination of the chest. Electronically Signed: Karl Lucio MD at 16:37 EDT Tel , Service support ,
[2020-09-03 16:36] LABS: Anion Gap 9 (5-15); BUN 18 mg/dL (7-18); BUN/Creat Ratio 12.6 RATIO (10-20); Calcium,Total 9.8 mg/dL (8.5-10.1); Chloride 105 mmol/L (98-107); Creatinine, Serum 1.43 mg/dL (0.55-1.02); EST Glomerular Filtration Rate 44 mL/min (>60); Est Glom Filt Rate - Afr Amer 53 mL/min (>60); Estimated Creatinine Clearance 52.89 ml/min; Glucose 82 mg/dL (74-106); Potassium 3.3 mmol/L (3.5-5.1); Sodium Level 139 mmol/L (136-145)
[2020-09-03 17:02] VITALS: BP 154/91; PULSE 99; RESP 18; O2SAT 100
[2020-09-03 17:04] LABS: Platelet Estimate ADEQUATE (ADEQ); Red Cell Morphology NORM C+C NORMAL (NORM C&C)
[2020-09-03 18:14] VITALS: BP 131/60; PULSE 90; RESP 18; O2SAT 99
== END 2020-09-03 18:16 | disposition home or self-care (01) ==
PROVIDERS: Emergency Provider Emergency Medicine; PCP Registered Nurse
DX: R07.89 Other chest pain (principal); Z79.84 Long term (current) use of oral hypoglycemic drugs; Z79.899 Other long term (current) drug therapy; M25.511 Pain in right shoulder; E11.9 Type 2 diabetes mellitus without complications; I10 Essential (primary) hypertension; F41.9 Anxiety disorder, unspecified; E66.9 Obesity, unspecified; F17.210 Nicotine dependence, cigarettes, uncomplicated; Z86.718 Personal history of other venous thrombosis and embolism
CPT/HCPCS: 71045; 80048; 84484; 85025; 93005; 99284; A4216

== ENCOUNTER 2020-11-26 12:27 | Emergency (ER) | payer MEDICAID, SELFPAY ==
[2020-11-26 12:28] VITALS: BP 129/91; PULSE 87; RESP 16; TEMP 36.2; O2SAT 97; BMI 41.3
[2020-11-26 14:36] VITALS: BP 163/102; PULSE 87; RESP 18; O2SAT 99
--- NOTE | 2020-11-26 14:36 | RAD_ITS ---
INDICATION: sob EXAMINATION/TECHNIQUE: X-RAY - XR Chest 1 View COMPARISON: 09/03/2020. FINDINGS: Subtle patchy airspace opacities in the bilateral lower lobes. The cardiomediastinal silhouette is unremarkable. No pleural effusion or pneumothorax. No acute osseous abnormalities. RAD/Chest 1 View (Portable) IMPRESSION: Very subtle patchy airspace opacities in the bilateral lower lobes could represent infection and/or edema. Electronically Signed: Avtar Pop MD at 16:47 EDT Tel , Service support ,
--- NOTE | 2020-11-26 14:55 | EDS_ITS ---
HPI History of Present Illness Chief Complaint: General Illness Informant: patient Narrative Narrative: 34-year-old female presents to the emergency room out of concern that she may have COVID-19. Patient states that she has been feeling short of breath. She denies any significant cough or diarrhea. No fevers. She notes an earache. She has had 2 Covid test in the past 2 weeks. She states that she has had some Covid exposures. She is due to have another Covid test tomorrow and would like to not have one done today. [facility] Medical History DVT (deep venous thrombosis) Fatty liver Gallbladder problem Type 2 diabetes mellitus Home Medications albuterol sulfate [Ventolin HFA] 2 puff IH 4X/DAY PRN PRN 06/17/18 [History Last Taken Unknown] fluticasone propionate 1 spray NASAL DAILY PRN 06/17/18 [History Last Taken Unknown] atorvastatin 20 mg PO QHS 12/03/18 [History Last Taken Unknown] buspirone 7.5 mg PO BID 12/03/18 [History Last Taken Unknown] cetirizine 10 mg PO DAILY 12/03/18 [History Last Taken Unknown] famotidine 20 mg PO DAILY 12/03/18 [History Last Taken Unknown] ferrous sulfate 325 mg PO DAILY 12/03/18 [History Last Taken Unknown] hydrochlorothiazide 50 mg PO DAILY 12/03/18 [History Last Taken Unknown] metoprolol tartrate 12.5 mg PO BID 12/03/18 [History Last Taken Unknown] amitriptyline 10 mg PO QHS 08/27/19 [History Last Taken Unknown] pregabalin 75 mg PO BID 01/11/20 [History Last Taken Unknown] metformin 500 mg PO BID 03/29/20 [History Last Taken Unknown] ondansetron HCl 8 mg PO Q8H PRN PRN 03/29/20 [History Last Taken Unknown] sertraline 50 mg PO DAILY 04/19/20 [History Last Taken Unknown] alprazolam 0.5 mg PO QHS 06/10/20 [History Last Taken Unknown] Allergy/AdvReac Type Severity Reaction Status Date / Time Bleach (Sodium Hypochlorite) Allergy Hives Verified 11/26/20 12:28 heparin Allergy Other Verified 11/26/20 12:28 amoxicillin [Amoxicillin] AdvReac Rash Verified 11/26/20 12:28 citalopram hydrobromide AdvReac Mood Verified 11/26/20 12:28 [From Celexa] Family History Mother Diabetes Hypertension Asthma Sister Prediabetes Grandmother Kidney failure maternal Surgical History H/O dilation and curettage H/O tubal ligation History of partial hysterectomy Social History (Updated 11/26/20 @ 14:[address] Pramod Rivero DO) Smoking Status: Current every day smoker tobacco type: cigarettes substance use type: does not use ROS ROS ED Constitutional Constitutional ED: Denies chills or weight loss Eyes Eyes: Denies change in vision or diplopia ENT ENT ED: Denies ear pain, rhinorrhea or sore throat Cardiovascular Cardiovascular: Denies chest pain, orthopnea, palpitations or racing heartbeat Respiratory/Chest Respiratory/Chest: Denies cough, dyspnea or orthopnea Gastrointestinal Gastrointestinal: Denies abdominal pain, diarrhea, nausea or vomiting Genitourinary Genitourinary ED: Denies dysuria, hematuria or urinary frequency Musculoskeletal Musculoskeletal: Denies arthralgias or myalgias Integumentary Denies abscess or rash Neurologic Neurologic: Denies headache(s) or weakness Psychiatric Psychiatric: Denies anxiety, depression, suicidal ideation or suicidal thoughts Endocrine Endocrinology: Denies polydipsia, polyphagia or polyuria Allergic/Immunologic Allergic/Immunologic ED: Denies mouth swelling, tongue swelling or urticaria EXAM Physical Exam Const Vital Signs: 11/26/20 12:28 11/26/20 14:36 Temperature 97.1 F L Temperature Source Temporal Pulse Rate 87 87 Respiratory Rate 16 18 Blood Pressure 129/91 H 163/102 H Blood Pressure Mean 103 122 Pulse Ox 97 99 Oxygen Delivery Method Room Air Room Air Positive well nourished, well developed and obese General Appearance ED: well developed Nutritional Appearance: obese HEENT Reports normocephalic, head/scalp atraumatic and moist mucous membranes Eyes PERRL and EOMs intact bilaterally Neck no lymphadenopathy, supple and no JVD Resp normal respiratory effort and clear to auscultation bilaterally Cardio regular rate, regular rhythm and no murmurs GI normal to inspection, nondistended, normoactive bowel sounds and non-tender Palpation: soft Back/Spine no CVA tenderness and normal ROM Extremity normal to inspection General Extremety ED: Negative for edema General Extremity: Negative for edema Neuro oriented x3 and CN's II-XII intact bilaterally Sensorium / Orientation: alert Motor Exam: strength 5/5 throughout Psych mental status grossly normal Mood & Affect: Negative for depressed or tearful Skin no rashes or lesions noted and no wounds MDM MDM MDM Narrative Medical decision making narrative: My interpretation of the chest x-ray is no acute process. Think it is reasonable to wait on doing a another Covid test as the patient is to have 1 done tomorrow. Discharge Plan Triage Chief Complaint: General Illness ED Provider: Pramod Rivero Dx/Rx/DC Orders Clinical Impression: Acute dyspnea Instructions: ED Dyspnea Prescriptions: No Action albuterol sulfate [Ventolin HFA] 18 GM HFA aerosol inhaler 2 puff IH 4X/DAY PRN PRN (Reason: Allergies) RF: 0 fluticasone propionate 1 SPRAY spray,suspension 1 spray NASAL DAILY PRN (Reason: Allergies) RF: 0 buspirone 5 MG tablet 7.5 mg PO BID RF: 0 atorvastatin 20 MG tablet 20 mg PO QHS RF: 0 famotidine 20 MG tablet 20 mg PO DAILY RF: 0 ferrous sulfate 325 MG tablet 325 mg PO DAILY RF: 0 hydrochlorothiazide 25 MG tablet 50 mg PO DAILY RF: 0 metoprolol tartrate 25 MG tablet 12.5 mg PO BID RF: 0 cetirizine 10 MG capsule 10 mg PO DAILY RF: 0 amitriptyline 10 MG tablet 10 mg PO QHS RF: 0 pregabalin 75 MG capsule 75 mg PO BID RF: 0 metformin 500 MG tablet 500 mg PO BID RF: 0 ondansetron HCl 8 MG tablet 8 mg PO Q8H PRN PRN (Reason: Nausea) RF: 0 sertraline 50 MG tablet 50 mg PO DAILY RF: 0 alprazolam 0.5 MG tablet 0.5 mg PO QHS RF: 0 Primary Care Provider: Nallely Butler NP Referrals: Nallely Butler NP, [employer] [Primary Care Provider] - 1-2 Days if not improving Disposition Disposition: Home, Self Care
== END 2020-11-26 15:06 | disposition home or self-care (01) ==
LOC: ED 15:03
PROVIDERS: Emergency Provider Emergency Medicine; PCP Registered Nurse
DX: R06.02 Shortness of breath (principal); E11.9 Type 2 diabetes mellitus without complications; F17.210 Nicotine dependence, cigarettes, uncomplicated; Z20.822 Contact with and (suspected) exposure to COVID-19; Z79.84 Long term (current) use of oral hypoglycemic drugs
CPT/HCPCS: 71045; 99282

== ENCOUNTER 2021-05-17 07:17 | Emergency (ER) | payer MEDICAID, SELFPAY ==
[2021-05-17 07:18] VITALS: BP 141/87; PULSE 84; RESP 18; TEMP 36.2; O2SAT 96; BMI 42.3
--- NOTE | 2021-05-17 07:26 | EDS_ITS ---
HPI History of Present Illness HPI Narrative: Patient presents with right ankle injury that occurred this morning. Patient states she was walking down her steps when she fell and inverted her right ankle. Patient states she felt some snapping sensation in her ankle. Patient states her pain radiates up her right leg. Patient describes her pain as sharp and throbbing. Patient states it is worse with ambulation and weightbearing. Patient states nothing seems to help with the pain. Patient denies any paresthesias or weakness. Patient denies any head injury or loss of consciousness. Patient denies any other injuries. Chief Complaint: Lower Extremity Injury Informant: patient Onset/Context/Timing Onset: Today Context: Sudden Onset Timing: Continuous Quality of Pain: Sharp and Throbbing Worsened by: Ambulation Relieved by: Nothing PFSH PFSH Medical History DVT (deep venous thrombosis) Fatty liver Gallbladder problem Leukocytosis Type 2 diabetes mellitus Home Medications albuterol sulfate [Ventolin HFA] 2 puff IH 4X/DAY PRN PRN 06/17/18 [History Last Taken Unknown] ferrous sulfate 325 mg PO DAILY 12/03/18 [History Last Taken Unknown] metoprolol tartrate 12.5 mg PO BID 12/03/18 [History Last Taken Unknown] ondansetron HCl 8 mg PO Q8H PRN PRN 03/29/20 [History Last Taken Unknown] atorvastatin 40 mg tablet 40 mg PO QHS 05/15/21 [History Last Taken Unknown] cholecalciferol (vitamin D3) 1,250 mcg (50,000 unit) capsule 1,250 mcg PO QWEEK 05/15/21 [History Last Taken Unknown] fenofibrate nanocrystallized 145 mg tablet 145 mg PO DAILY 05/15/21 [History Last Taken Unknown] gabapentin 100 mg capsule 100 mg PO DAILY PRN 05/15/21 [History Last Taken Unknown] gabapentin 400 mg capsule 400 mg PO 4X/DAY cap 05/15/21 [History Last Taken Unknown] lorazepam 0.5 mg tablet 0.5 mg PO DAILY PRN 05/15/21 [History Last Taken Unknown] magnesium oxide 400 mg PO DAILY 05/15/21 [History Last Taken Unknown] quetiapine 50 mg tablet 50 mg PO QHS 05/15/21 [History Last Taken Unknown] riboflavin (vitamin B2) 400 mg tablet 400 mg PO DAILY 05/15/21 [History Last Taken Unknown] Allergy/AdvReac Type Severity Reaction Status Date / Time Bleach (Sodium Hypochlorite) Allergy Hives Verified 05/17/21 07:19 heparin Allergy Other Verified 05/17/21 07:19 amoxicillin [Amoxicillin] AdvReac Rash Verified 05/17/21 07:19 citalopram hydrobromide AdvReac Mood Verified 05/17/21 07:19 [From Celexa] Family History Mother Diabetes Hypertension Asthma Sister Prediabetes Grandmother Kidney failure maternal Surgical History H/O dilation and curettage H/O tubal ligation History of partial hysterectomy Social History Smoking Status: Current every day smoker tobacco type: cigarettes substance use type: does not use ROS ROS ED Constitutional Constitutional ED: Denies chills or fever(s) Eyes Eyes: Denies blurry vision or change in vision ENT ENT ED: Denies rhinorrhea or sore throat Cardiovascular Cardiovascular: Denies chest pain or palpitations Respiratory/Chest Respiratory/Chest: Denies cough or dyspnea Gastrointestinal Gastrointestinal: Reports nausea; Denies vomiting Genitourinary Genitourinary ED: Denies dysuria or hematuria Musculoskeletal Musculoskeletal: Denies back pain or neck pain Integumentary Denies abscess or rash Neurologic Neurologic: Denies headache(s) or weakness Allergic/Immunologic Allergic/Immunologic ED: Denies mouth swelling or urticaria EXAM Physical Exam Const Vital Signs: 05/17/21 07:18 Temperature 97.1 F L Temperature Source Temporal Pulse Rate 84 Respiratory Rate 18 Blood Pressure 141/87 H Blood Pressure Mean 105 Pulse Ox 96 Oxygen Delivery Method Room Air Positive well nourished, well developed and obese General Appearance ED: well developed and NAD Nutritional Appearance: obese HEENT Reports moist mucous membranes Neck full ROM Extremity Extremity Narrative: There is tenderness some mild edema over the lateral aspect of the right ankle. There is no ecchymosis. There is no obvious deformity noted. Range of motion was limited in all motions of the right ankle secondary to pain. There is no tenderness over the proximal fibula. There is some mild tenderness over the fifth metatarsal. There is 2+ pedal pulse noted. Sensation was intact to light touch in all digits. Capillary refill was less than 2 seconds in all digits. Neuro oriented x3, CN's II-XII intact bilaterally, moves all extremities and no sensory deficits noted Sensorium / Orientation: alert Motor Exam: strength 5/5 throughout Psych mental status grossly normal MDM MDM MDM Narrative Medical decision making narrative: Patient was given a dose of [place] here. X- rays of the right ankle were obtained. There are 3 views. On my interpretation, there is no acute fracture. There is no dislocation. There is some mild soft tissue swelling. Radiologist also interpreted the x-rays and agrees. Patient was given an Aircast. Patient was instructed to ice and elevate the right ankle. Patient was instructed to weight-bear as tolerated. Patient was instructed to take Tylenol or ibuprofen as needed for pain. Patient was instructed to follow-up with her primary care physician in 5 to 7 days. Patient understood and was agreeable with the plan. All questions were answer ed. Radiography Diagnostic Testing: Clinical Impression(s) from Imaging Studies Ankle X-Ray 05/17/21 07:35 IMPRESSION: Soft tissue swelling. Electronically Signed: Abilio Gutierrez MD at 7:47 EST , Discharge Plan Triage Chief Complaint: Lower Extremity Injury ED Provider: Maynor Garcia Dx/Rx/DC Orders Clinical Impression: Right ankle sprain Instructions: ED Ankle Sprain (Adult) Prescriptions: No Action magnesium oxide 400 mg magnesium capsule 400 mg PO DAILY RF: 0 cholecalciferol (vitamin D3) 1,250 mcg (50,000 unit) capsule 1,250 mcg PO QWEEK RF: 0 fenofibrate nanocrystallized [Tricor] 145 mg tablet 145 mg PO DAILY RF: 0 atorvastatin [Lipitor] 40 mg tablet 40 mg PO QHS RF: 0 riboflavin (vitamin B2) 400 mg tablet 400 mg PO DAILY RF: 0 quetiapine [Seroquel] 50 mg tablet 50 mg PO QHS RF: 0 gabapentin 100 mg capsule 100 mg PO DAILY PRNRF: 0 gabapentin 400 mg capsule 400 mg PO 4X/DAY RF: 0 lorazepam [Ativan] 0.5 mg tablet 0.5 mg PO DAILY PRNRF: 0 albuterol sulfate [Ventolin HFA] 18 GM HFA aerosol inhaler 2 puff IH 4X/DAY PRN PRN (Reason: Allergies) RF: 0 ferrous sulfate 325 MG tablet 325 mg PO DAILY RF: 0 metoprolol tartrate 25 MG tablet 12.5 mg PO BID RF: 0 ondansetron HCl 8 MG tablet 8 mg PO Q8H PRN PRN (Reason: Nausea) RF: 0 Primary Care Provider: Nallely Butler NP Referrals: Nallely Butler NP, [employer]ISTRATOR[employer] [Primary Care Provider] - 5-7 Days Disposition Disposition: Home, Self Care
--- NOTE | 2021-05-17 07:35 | RAD_ITS ---
STUDY: X-RAY - RIGHT ANKLE REASON FOR EXAM: Female, 35 years old. Injury/Pain TECHNIQUE: 3 view(s) of the ankle. COMPARISON: None. FINDINGS: Normal visualized distal tibia and fibula. Normal medial and lateral malleoli. Normal tibiotalar articulation and ankle mortise. A spur is seen at the insertion of the Achilles tendon. The visualized subtalar, talonavicular, calcaneocuboid and tarsal articulations are normal. Soft tissue swelling. RAD/Ankle min 3 Views IMPRESSION: Soft tissue swelling. Electronically Signed: Abilio Gutierrez MD at 7:47 EST ,
[2021-05-17] MEDS: HYDROcodone Bitartrate/Apap 5/325 Tablet PO (07:38)
[2021-05-17 08:24] VITALS: RESP 18
== END 2021-05-17 08:24 | disposition home or self-care (01) ==
PROVIDERS: Emergency Provider Emergency Medicine; PCP Registered Nurse; Visit Provider Emergency Medicine
DX: S93.401A Sprain of unspecified ligament of right ankle, initial encounter (principal); Z68.41 Body mass index [BMI] 40.0-44.9, adult; W10.9XXA Fall (on) (from) unspecified stairs and steps, initial encounter; Y93.01 Activity, walking, marching and hiking; Y99.8 Other external cause status; Y92.009 Unspecified place in unspecified non-institutional (private) residence as the place of occurrence of the external cause; E66.9 Obesity, unspecified; F17.210 Nicotine dependence, cigarettes, uncomplicated
CPT/HCPCS: 73610; 99285

== ENCOUNTER 2023-02-26 22:32 | Inpatient (IN) | payer MEDICAID, SELFPAY ==
--- NOTE | 2023-02-26 00:08 | RAD_ITS ---
INDICATION: Cough, shortness of breath, wheezing, RSV+ EXAMINATION: Frontal and lateral views of the chest. COMPARISON: Chest x-ray November 26, 2020. FINDINGS: Frontal and lateral views of the chest were obtained. The cardiac silhouette is not enlarged. Patchy opacities in the mid and lower lungs bilaterally. No pleural effusion or pneumothorax. RAD/Chest PA and Lateral IMPRESSION: Bilateral pulmonary opacities concerning for infection. Electronically Signed: Terence Braxton MD at 0:45 EST ,
[2023-02-26 22:33] VITALS: BP 126/94; PULSE 95; RESP 19; TEMP 36.6; O2SAT 94; BMI 36.0
[2023-02-26 22:52] VITALS: BP 165/96; PULSE 94; RESP 24; TEMP 37.6; O2SAT 86; O2SAT 93
[2023-02-26 22:56] VITALS: PULSE 111; RESP 34
[2023-02-26] MEDS: Ipratropium/Albuterol Sulfate 3 ML AMPUL.NEB INHALATION (22:56)
[2023-02-26 23:03] LABS: Absolute Lymphocyte Count 4.99 X10^3/uL (0.83-4.51); Absolute Neutrophil Count 13.5 X10^3/uL (2.0-7.7); Basophil# 0.05 X10^3/uL; Basophil% 0.3 % (0-1); Eosinophil# 0.14 X10^3/uL; Eosinophils% 0.7 % (0-5); Hematocrit 41.4 % (37-47); Hemoglobin 13.6 g/dL (12.0-15.0); Lymphocyte # 4.99 X10^3/ul (0.83-4.51); Lymphocyte % 25.6 % (19-41); Mean Corp Hgb Conc 32.9 g/dL (32-36); Mean Corpuscular Hgb 29.4 pg (27.0-32.0); Mean Corpuscular Volume 89.6 fL (81-99); Mean Platelet Vol. 10.4 fl (6.2-12.0); Monocyte# 0.66 X10^3/uL; Monocyte% 3.4 % (0-10); NRBC Flagged by Analyzer 0 % (0-5); Neutrophil # 13.47 X10^3/uL (2.7-7.7); Neutrophil % 69.2 % (47-70); Platelet Count 265 K/mm3 (150-450); RBC Distribution Width CV 13.8 % (11.6-14.6); RBC Distribution Width SD 45.1 fl (35.1-43.9); Red Blood Count 4.62 M/mm3 (4.2-5.4); White Blood Count 19.5 K/mm3 (4.4-11.0)
--- NOTE | 2023-02-26 23:14 | ED.VIS.DYS ---
HPI History of Present Illness Chief Complaint: Shortness of Breath Detail of Chief Complaint: Shortness of breath, cough, wheezing Informant: patient Onset/Context/Timing Onset: Weeks (Onset approximately 1 week ago) Context: sudden Timing: Continuous and Waxes and wanes Quality: Positive for Dyspnea on exertion and Wheezing; Negative for Orthopnea or PND Current Severity: Mild Maximum Severity: Severe Worsened by: Exertion and Coughing Relieved by: Nothing Associated Symptoms cough, rhinorrhea, post nasal drip, fever, sore throat, chills and clear sputum; Negative for ear pain, subjective, sweats, white sputum, yellow sputum or green sputum Chest Pain: Positive for None Narrative Narrative: Patient is a 37-year-old female with history of hypercholesterolemia, hypertension and anxiety who presents with shortness of breath that is gotten worse over the past week. She was diagnosed with RSV 1 week ago. She is a smoker of 1 pack/day. She smoked very little the last 2 days. She denies headache. She denies double vision, blurred vision or loss of vision. Eyes photophobia. Denies neck pain or neck stiffness. She does endorse rhinorrhea, congestion postnasal drainage and sore throat. Her cough is productive of colored sputum. She denies chest discomfort. She denies nausea, vomit or diarrhea. She denies dysuria, frequency, urgency or hematuria. She does endorse myalgias and arthralgias. She has not noted a rash. She denies history of diabetes. She reports allergy to amoxicillin with rash. PE Risk Factors: Positive for Prior DVT or PE; Negative for Cancer, OCP + Smoking + > 35, Recent immobilization, Recent surgery or Recent travel Prior similar symptoms: Yes Recent Illness/Hospitalization: Yes (Positive RSV) [facility] Medical History DVT (deep venous thrombosis) Fatty liver Gallbladder problem Leukocytosis Type 2 diabetes mellitus Home Medications albuterol sulfate 90 mcg/actuation aerosol inhaler (Ventolin HFA) 2 puff IH 4X/DAY PRN PRN Allergies 06/17/18 [History Last Taken Unknown] ferrous sulfate 325 mg (65 mg iron) tablet 325 mg PO DAILY 12/03/18 [History Last Taken Unknown] metoprolol tartrate 25 mg tablet 12.5 mg PO BID 09/13/19 [History Last Taken Unknown] ondansetron HCl 8 mg tablet 8 mg PO Q8H PRN PRN Nausea 03/29/20 [History Last Taken Unknown] atorvastatin 40 mg tablet (Lipitor) 40 mg PO QHS 05/15/21 [History Last Taken Unknown] cholecalciferol (vitamin D3) 1,250 mcg (50,000 unit) capsule 1,250 mcg PO QWEEK 05/15/21 [History Last Taken Unknown] fenofibrate nanocrystallized 145 mg tablet (Tricor) 145 mg PO DAILY 05/15/21 [History Last Taken Unknown] gabapentin 100 mg capsule 100 mg PO DAILY PRN 05/15/21 [History Last Taken Unknown] gabapentin 400 mg capsule 400 mg PO 4X/DAY 05/15/21 [History Last Taken Unknown] lorazepam 0.5 mg tablet (Ativan) 0.5 mg PO DAILY PRN 05/15/21 [History Last Taken Unknown] magnesium oxide 400 mg PO DAILY 05/15/21 [History Last Taken Unknown] quetiapine 50 mg tablet (Seroquel) 50 mg PO QHS 05/15/21 [History Last Taken Unknown] riboflavin (vitamin B2) 400 mg tablet 400 mg PO DAILY 05/15/21 [History Last Taken Unknown] Allergy/AdvReac Type Severity Reaction Status Date / Time Bleach (Sodium Hypochlorite) Allergy Hives Verified 05/17/21 07:19 heparin Allergy Other Verified 05/17/21 07:19 amoxicillin [Amoxicillin] AdvReac Rash Verified 05/17/21 07:19 citalopram hydrobromide AdvReac Mood Verified 05/17/21 07:19 [From Celexa] Family History Mother Diabetes Hypertension Asthma Sister Prediabetes Grandmother Kidney failure maternal Surgical History H/O dilation and curettage H/O tubal ligation History of partial hysterectomy Social History (Updated 02/26/23 @ 23:[address] Adithya Chan MD) household members: significant other and children Smoking Status: Current every day smoker tobacco type: cigarettes substance use type: does not use ROS ROS ED Constitutional Constitutional ED: Reports chills, fever(s) and sweats; Denies weight loss Eyes Eyes: Denies blurry vision, change in vision or diplopia ENT ENT ED: Reports rhinorrhea and sore throat; Denies ear pain Cardiovascular Cardiovascular: Denies chest pain, orthopnea, palpitations, paroxysmal nocturnal dyspnea or racing heartbeat Respiratory/Chest Respiratory/Chest: Reports cough, dyspnea, dyspnea on exertion and sputum; Denies orthopnea or paroxysmal nocturnal dyspnea Gastrointestinal Gastrointestinal: Denies abdominal pain, diarrhea, nausea or vomiting Genitourinary Genitourinary ED: Reports other Details: Patient endorses decreased urine output. ; Denies dysuria, hematuria or urinary frequency Musculoskeletal Musculoskeletal: Reports arthralgias and myalgias; Denies back pain or neck pain Integumentary Denies abscess or rash Neurologic Neurologic: Reports headache(s) and weakness; Denies paresthesias Psychiatric Psychiatric: Denies anxiety or depression Endocrine Endocrinology: Denies cold intolerance or heat intolerance Hematologic/Lymphatic Hematologic/Lymphatic: Denies easy bleeding or easy bruising EXAM Physical Exam Const Vital Signs: 02/26/23 22:33 02/26/23 22:52 02/26/23 22:52 Temperature 97.9 F 99.7 F H Temperature Source Temporal Oral Pulse Rate 95 94 Respiratory Rate 19 H 24 H Respiratory Effort Respiratory Depth Respiratory Pattern Blood Pressure 126/94 H 165/96 H Blood Pressure Mean 104 119 Pulse Ox 94 86 93 Oxygen Delivery Method Room Air Room Air Room Air Oxygen Flow Rate (L/min) 2 02/26/23 23:23 02/26/23 22:56 Temperature Temperature Source Pulse Rate 111 H Respiratory Rate 34 H Respiratory Effort Short of Breath Labored Accessory Muscle Use Respiratory Depth Shallow Respiratory Pattern Tachypnea Tachypnea Blood Pressure Blood Pressure Mean Pulse Ox Oxygen Delivery Method Room Air Oxygen Flow Rate (L/min) Positive well nourished, well developed and obese Constitutional Narrative: Patient is tachypneic but in 30+ times a minute and not 19 as document by triage. Her pulse ox was 86% on room air per bedside nurse. Patient is awake. She is slightly sleepy. General Appearance ED: well developed; Negative for pallor Nutritional Appearance: obese HEENT Reports moist mucous membranes HEENT Narrative: Ears are normal. Nares patent with clear discharge. Posterior pharynx out erythema or exudate. atraumatic Eyes PERRL and EOMs intact bilaterally General Eye ED: Negative for pale conjunctiva or scleral icterus Neck no lymphadenopathy, supple, no meningeal signs and no JVD Neck Narrative: Trachea is midline. There is no inspiratory or expiratory stridor. Resp No normal respiratory effort and No clear to auscultation bilaterally Resp Narrative: There is expiratory wheezing with forced expiration and prolonged expiratory phase. There is no rales or rhonchi noted. There are no retractions. Breath sounds are diminished bilaterally. Cardio regular rate, regular rhythm, S1 normal heart sound, S2 normal heart sound and no murmurs GI non-tender, non-distended and no masses Auscultation: normoactive bowel sounds Palpation: soft; Negative for hepatomegaly or splenomegaly Back/Spine no CVA tenderness and normal to inspection Extremity normal to inspection Extremity Narrative: There is no asymmetry, swelling, discoloration, leg vein distention, palpable cords or tenderness along the distribution of the deep venous system. General Extremety ED: Negative for edema or tenderness General Extremity: Negative for edema Neuro oriented x3, CN's II-XII intact bilaterally and no sensory deficits noted [place] Coma Scale: document GCS findings Spontaneous Obeys Commands Oriented 15 Speech: speech normal Psych mental status grossly normal Thought Process: normal thought process Skin no wounds and skin turgor normal General Skin Exam: Negative for jaundice or pallor Lesions: no lesions Rashes: no rashes MDM MDM MDM Narrative Medical decision making narrative: With history of positive RSV this may be acute bronchospasm/hyperactive airway disease due to to RSV. She was diagnosed over a week ago did also need to can consider bacterial superimposed pneumonia. Prior records were reviewed. She has history of dyspnea. She also has history of DVT. CBC was obtained to assess white count as well as H&H. Basic metabolic panel to assess for any endorgan dysfunction. Patient was treated with Solu-Medrol since she is tachypneic and DuoNeb followed by 2 albuterol treatments. Chest x-ray was obtained to assess for pneumonia. History & Record Review Additional record(s) reviewed:: Prior outpatient record, Prior ED visit and Prior labs Lab Data Attestation: I reviewed the patient's lab results. Lab results narrative: White count is elevated 19.5 thousand with no shift. Of note patient's had several elevated white counts. Basic metabolic panel reveals an elevated creatinine of 1.42 which is patient's baseline for over the past year. Glucose is slightly elevated 114 with a normal CO2 anion gap. Labs: Laboratory Results - last 24 hr 02/26/23 22:55 WBC 19.5 H RBC 4.62 Hgb 13.6 Hct 41.4 MCV 89.6 MCH 29.4 MCHC 32.9 RDW Std Deviation 45.1 H RDW Coeff of Kendra 13.8 Plt Count 265 MPV 10.4 Immature Gran % (Auto) 0.800 Neut % (Auto) 69.2 Lymph % (Auto) 25.6 [place] % (Auto) 3.4 Eos % (Auto) 0.7 Baso % (Auto) 0.3 Absolute Neuts (auto) 13.5 H Absolute Lymphs (auto) 4.99 H Nucleated RBC % 0 Sodium 136 Potassium 3.7 Chloride 107 Carbon Dioxide 21.0 Anion Gap 8 BUN 19 H Creatinine 1.42 H Estim Creat Clear Calc 51.72 Est GFR (MDRD) Af Amer 53 L Est GFR (MDRD) Non-Af 44 L BUN/Creatinine Ratio 13.4 Glucose 114 H Calcium 8.4 L Radiography Chest X-Ray - ED: 2 View (2 view chest x-ray was independent reviewed by me and compared to chest x-ray that was obtained September 03, 2020. Patient has a right middle lobe and left lower lobe infiltrate. Cardiac silhouette is obscured on the right. Cardiac size is normal. Perihilar region is normal. Osseous structures are ) EKG Initial EKG: Attestation: I personally reviewed and interpreted this EKG as follows: Interpretation: Sinus Tachycardia (Rate is 102. The EKG other than sinus tach is normal. [place] interval is 160 ms. QRS durations 82 ms. QT durations 120 ms. Grabill is normal.) Management Discussion w/another healthcare provider: Hospitalist (Hospitalist was paged for admission. Since patient is tachypneic, tachycardic, with high white count and bilateral pneumonia she will require admission. She is presently on oxygen.) Treatment and Re-Evaluation :: Because patient has 3 SIRS criteria lactate, blood cultures were ordered as well as antibiotics for community-acquired pneumonia. This most likely represents a post RSV and infectious pneumonia. Because she was hypoxic will call hospitalist for admission. Discharge Plan Dx/Rx/DC Orders Clinical Impression: Acute hypoxemic respiratory failure, Pure hypercholesterolemia, Sepsis without acute organ dysfunction, Bilateral interstitial pneumonia, Acute bronchospasm, Sinus tachycardia, History of hypertension Disposition Disposition: Acute Care Hospital [facility]
[2023-02-26 23:16] LABS: Anion Gap 8 (5-15); BUN 19 mg/dL (7-18); BUN/Creat Ratio 13.4 RATIO (10-20); Calcium,Total 8.4 mg/dL (8.5-10.1); Chloride 107 mmol/L (98-107); Creatinine, Serum 1.42 mg/dL (0.55-1.02); EST Glomerular Filtration Rate 44 mL/min (>60); Est Glom Filt Rate - Afr Amer 53 mL/min (>60); Estimated Creatinine Clearance 51.72 ml/min; Glucose 114 mg/dL (74-106); Potassium 3.7 mmol/L (3.5-5.1); Sodium Level 136 mmol/L (136-145)
[2023-02-26 23:23] VITALS: O2SAT 88
[2023-02-26] MEDS: Albuterol 2.5 MG/3 ML VIAL.NEB. INHALATION ×3 (23:24→23:52)
[2023-02-26] MEDS: MethylPREDNISolone 125 MG/2 ML Vial IV (23:36)
[2023-02-27] VITALS (33 sets, daily range): BP systolic 97–151; BP diastolic 32–137; PULSE 72–108; RESP 15–38; TEMP 35.9–38.1; O2SAT 90–100; BMI 39.9
--- NOTE | 2023-02-27 00:06 | CPS ---
x3 Albuterol given to pt. in ER as well
--- NOTE | 2023-02-27 00:33 | PCM.HP.STD ---
[facility] - General General Date of Admission: 02/27/23 Date of Service: 02/27/23 Chief Complaint: Shortness of breath and wheezing HPI Narrative JEAN MARIE PORTILLO, is a 37 F with past medical history of essential hypertension, hyperlipidemia, diabetes mellitus type 2; of unknown control, obesity with a BMI of 36 this admission, history of DVT, history of fatty liver disease, restless leg syndrome, iron deficiency anemia, depression with anxiety, ongoing tobacco abuse, history of pneumonia complicated by sepsis with septic shock requiring intubation and tracheostomy after being life flighted from here to a tertiary care hospital with a protracted and teodoro hospital course (2020) and recently diagnosed acute RSV infection about 1 week ago who presents to [facility] ER complaining of shortness of breath and wheezing. Ms. Portillo reports her symptoms began approximately 1 week prior to admission with the abrupt onset of a viral upper respiratory infection. Once she was diagnosed with RSV she was was not able to smoke her typical 1 pack/day and was down to only a few cigarettes. She admits to associated fever, chills, rhinorrhea postnasal drainage, sore throat and chest congestion. She also admits to a congested cough productive of yellowish sputum along with myalgias, arthralgias and malaise. She denies a history of nausea, vomiting, diarrhea, dysuria or rash. She verbally denies a history of diabetes but her chart shows she has been diagnosed with diabetes in the past. In the ER her x-rays were positive for multifocal pneumonia (with right middle lobe and left lower lobe infiltrates) that is likely a bacterial superinfection complicating her subacute RSV infection with leukocytosis of 19.5 present on admission in the unfortunate setting of ongoing tobacco abuse with clinical evidence of acute hypoxic respiratory insufficiency with a respiratory rate of approximately 30-35 breaths/min and oxygen saturations of 86% recorded in the ER with 3 positive SIRS criteria present on admission so lactate and blood cultures were ordered for suspected community-acquired pneumonia with clinical evidence of early sepsis. She was then admitted to the general medical floor for ongoing care for stay that is expected to be greater than 48 hours. [facility] Medical History DVT (deep venous thrombosis) Fatty liver Gallbladder problem Leukocytosis Type 2 diabetes mellitus Home Medications albuterol sulfate 90 mcg/actuation aerosol inhaler (Ventolin HFA) 2 puff IH 4X/DAY PRN PRN Allergies 06/17/18 [History Last Taken Unknown] ferrous sulfate 325 mg (65 mg iron) tablet 325 mg PO DAILY 12/03/18 [History Last Taken Unknown] metoprolol tartrate 25 mg tablet 12.5 mg PO BID 12/03/18 [History Last Taken Unknown] ondansetron HCl 8 mg tablet 8 mg PO Q8H PRN PRN Nausea 03/29/20 [History Last Taken Unknown] atorvastatin 40 mg tablet (Lipitor) 40 mg PO QHS 05/15/21 [History Last Taken Unknown] cholecalciferol (vitamin D3) 1,250 mcg (50,000 unit) capsule 1,250 mcg PO QWEEK 05/15/21 [History Last Taken Unknown] fenofibrate nanocrystallized 145 mg tablet (Tricor) 145 mg PO DAILY 05/15/21 [History Last Taken Unknown] gabapentin 100 mg capsule 100 mg PO DAILY PRN 05/15/21 [History Last Taken Unknown] gabapentin 400 mg capsule 400 mg PO 4X/DAY 05/15/21 [History Last Taken Unknown] lorazepam 0.5 mg tablet (Ativan) 0.5 mg PO DAILY PRN 05/15/21 [History Last Taken Unknown] magnesium oxide 400 mg PO DAILY 05/15/21 [History Last Taken Unknown] quetiapine 50 mg tablet (Seroquel) 50 mg PO QHS 05/15/21 [History Last Taken Unknown] riboflavin (vitamin B2) 400 mg tablet 400 mg PO DAILY 05/15/21 [History Last Taken Unknown] Allergy/AdvReac Type Severity Reaction Status Date / Time Bleach (Sodium Hypochlorite) Allergy Hives Verified 05/17/21 07:19 heparin Allergy Other Verified 05/17/21 07:19 amoxicillin [Amoxicillin] AdvReac Rash Verified 05/17/21 07:19 citalopram hydrobromide AdvReac Mood Verified 05/17/21 07:19 [From Celexa] Family History Mother Diabetes Hypertension Asthma Sister Prediabetes Grandmother Kidney failure maternal Surgical History H/O dilation and curettage H/O tubal ligation History of partial hysterectomy Social History household members: significant other and children Smoking Status: Current every day smoker tobacco type: cigarettes substance use type: does not use ROS ROS Narrative Review of systems: General: Patient admits to fevers, chills, sweats and malaise. HENT: Patient admits to rhinorrhea and sore throat. EYES: Denies changes in vision Resp: Admits to shortness of breath and cough productive of yellowish sputum. Cardiac: Denies chest pain GI: Denies abdominal pain, denies changes in bowel, had some nausea : Patient admits to decreased urinary output but denies dysuria, hematuria or urinary frequency. Extremity: Denies swelling Musculoskeletal: Patient admits to arthralgias and myalgias. Neuro: Patient admits to generalized tension type headache. Heme: Denies any bleeding or bruising Skin: Denies rashes Psychiatric: Patient is anxious about the declining state of her health and potentially repeating her previous multifocal pneumonia with sepsis admission from 2020 Endocrine: No polyuria The rest of the 14 point ROS was negative except for positives in HPI. Vital Signs Vital Signs Vital Signs: 02/26/23 22:33 02/26/23 22:52 02/26/23 22:52 Temperature 97.9 F 99.7 F H Temperature Source Temporal Oral Pulse Rate 95 94 Respiratory Rate 19 H 24 H Respiratory Effort Respiratory Depth Respiratory Pattern Blood Pressure 126/94 H 165/96 H Blood Pressure Mean 104 119 Pulse Ox 94 86 93 Oxygen Delivery Method Room Air Room Air Room Air Oxygen Flow Rate (L/min) 2 02/26/23 23:23 02/26/23 22:56 Temperature Temperature Source Pulse Rate 111 H Respiratory Rate 34 H Respiratory Effort Short of Breath Labored Accessory Muscle Use Respiratory Depth Shallow Respiratory Pattern Tachypnea Tachypnea Blood Pressure Blood Pressure Mean Pulse Ox Oxygen Delivery Method Room Air Oxygen Flow Rate (L/min) Weight Weight: 230 lb Body Mass Index (BMI) 36.0 Physical Exam Const alert and oriented x3 Constitutional Narrative: Patient is tachypneic breathing 30+ times per minute with obvious anxiety and [id number] lethargy. General Appearance: cooperative Orientation / Consciousness: lethargic HEENT normocephalic, head/scalp atraumatic, hearing grossly normal bilaterally and moist oral mucous membranes Eyes PERRL, EOMs intact bilaterally and conjunctivae normal Neck no lymphadenopathy and supple Resp Resp Narrative: Diminished breath sounds throughout with scattered rhonchi and wheezes. She also was noted to have prolonged expiratory phase. Cardio regular rate and regular rhythm GI normal to inspection, nondistended, normoactive bowel sounds, soft to palpation, non-tender and non-distended GI Narrative: Obese. Extremity normal to inspection, full ROM and no clubbing, cyanosis or edema Skin Skin Narrative: Patient has no evidence of rash at this time. Neuro oriented x3, CN's II-XII intact bilaterally, moves all extremities and no focal motor deficits Sensorium / Orientation: awake, alert, oriented to person, oriented to place and oriented to time Speech: speech normal Motor Exam: strength 5/5 throughout Psych Mood & Affect: anxious Results Medical Records Data Attestation: I reviewed the patient's medical records Lab / Micro Data Attestation: I reviewed the patient's lab results. 02/27/23 04:05 02/27/23 04:05 Labs: Laboratory Results - last 24 hr 02/26/23 22:55: WBC 19.5 H, RBC 4.62, Hgb 13.6, Hct 41.4, MCV 89.6, MCH 29.4, MCHC 32.9, RDW Std Deviation 45.1 H, RDW Coeff of Kendra 13.8, Plt Count 265, MPV 10.4, Immature Gran % (Auto) 0.800, Neut % (Auto) 69.2, Lymph % (Auto) 25.6, [place] % (Auto) 3.4, Eos % (Auto) 0.7, Baso % (Auto) 0.3, Absolute Neuts (auto) 13.5 H, Absolute Lymphs (auto) 4.99 H, Nucleated RBC % 0, Sodium 136, Potassium 3.7, Chloride 107, Carbon Dioxide 21.0, Anion Gap 8, BUN 19 H, Creatinine 1.42 H, Estim Creat Clear Calc 51.72, Est GFR (MDRD) Af Amer 53 L, Est GFR (MDRD) Non-Af 44 L, BUN/Creatinine Ratio 13.4, Glucose 114 H, Calcium 8.4 L Assessment & Plan Assessment/Plan (1) Sepsis without acute organ dysfunction: QUALIFIERS: Sepsis type: sepsis due to unspecified organism Qualified Code(s): A41.9 - Sepsis, unspecified organism (2) Bilateral interstitial pneumonia: (3) RSV (respiratory syncytial virus infection): (4) Acute bronchospasm: (5) Acute hypoxemic respiratory failure: PLAN: Plan 1. Sepsis due to multifocal bacterial pneumonia superinfection in the setting of subacute RSV pneumonitis and ongoing tobacco abuse - Admit to ICU for treatment under the sepsis protocol on contact and droplet precautions. Patient responded well to fluid bolus in the ER along with IV Rocephin and IV azithromycin plus nebulizer treatments. We will await culture and sensitivity data to potentially narrow antibiotic spectrum. Serial as lactates to ensure positive response to treatment regimen. Give scheduled Mucinex to mobilize secretions. Give Tylenol as needed pain or fever. Patient was very strongly encouraged to quit smoking with nicotine patch offered to control cravings. 2. Acute exacerbation of asthma causing severe persistent bronchospasm complicating #1 - Continue IV Solu-Medrol along with scheduled and as needed nebulizer treatments. 3. Acute hypoxic respiratory insufficiency arising from #1 & #2 - Wean supplemental oxygen as tolerated. 4. History of pneumonia complicated by sepsis with septic shock requiring intubation and tracheostomy after being life flighted from here to a tertiary care hospital with a protracted and teodoro hospital course (2020) causing significant anxiety about a potential repeat of a dark chapter of her medical history - She was strongly encouraged to come to the hospital and seek medical attention before she becomes critically ill in the future to minimize the risk of potential sepsis and respiratory failure. Her fianc? also was educated and encouraged to help her to seek medical attention sooner rather than later in the future. 5. Essential hypertension - Hold scheduled antihypertensives in light of #1. Give IV hydralazine as needed for systolic blood pressure greater than 160 mmHg. 6. Hyperlipidemia - Resume statin and check lipid profile this admission. 7. Diabetes mellitus type 2; of unknown control - ADA diet. Fingerstick blood sugars before every meal and at bedtime plus sliding scale insulin. Check hemoglobin A1c to objectively evaluate quality of diabetic control. 8. Obesity with a BMI of 36 this admission - Weight loss will be recommended. Check TSH. 9. History of DVT - Noted. 10. History of fatty liver disease - Stable. 11. Restless leg syndrome - Continue Requip as previous. 12. Iron deficiency anemia - Resume iron supplementation. 13. Depression with anxiety - Continue current regimen plus give prn Xanax for breakthrough symptoms. 14. DVT prophylaxis - Lovenox 40 mg sq daily plus SCD's. Total time: Approximately 75 minutes. Sepsis Attestation Sepsis Alert: Yes Sepsis Attestation: Agree w/Sepsis Date exam was performed: 02/27/23 Time exam was performed: 00:35 Possible Source of Sepsis: Pulmonary Sepsis Organ Dysfunction Criteria Present: Lactic Acid > 2 mmol/L Fluid Resuscitation Fluid resuscitation indicated?: Yes Fluid Resuscitation ordered: 30 ml/kg fluid bolus ordered Amount of fluid ordered: 3 Sepsis Note Date exam was performed: 02/27/23 Time exam was performed: 04:35 Sepsis Attestation: Sepsis re-evaluation was performed Response to fluids: Fluid responsive hypotension Charges/Coding Visit Charges Inpatient E&M: 58226 Init Hosp L3
[2023-02-27] MEDS: Acetaminophen 325 MG Tablet 650 MG PO (01:02)
[2023-02-27] MEDS: guaiFENesin/Codeine 5 ML UDC PO (01:03)
[2023-02-27] MEDS: Ceftriaxone 2 GM in 0.9% Normal Saline (50mL MB+) 50 ML IV (01:30)
[2023-02-27 01:32] LABS: Allen Test Positive; Base Excess -6 mmol/L (-2 to +2); Bicarbonate 18.5 mmol/L (22-26); Blood Gas Specimen Type ART; Mode Not entered; O2 Delivery Device Cannula; PO2 58 mmHG (75-100); SITE L Radial; SO2 91 % (95-99); Total Carbon Dioxide 19 mmol/L; pH 7.44 (7.35-7.45)
[2023-02-27 01:42] LABS: Lactic Acid 1.5 mmol/L (0.4-1.9)
[2023-02-27] MEDS: Azithromycin 500 MG in Dextrose 5%-Water (250mL Bag) 250 ML 250 MG IV ×2 (02:04→20:43)
[2023-02-27] MEDS: LORazepam 0.5 MG Tablet PO (02:48)
[2023-02-27] MEDS: Lactated Ringers 1,000 ML 999 ML IV ×3 (02:52→05:17)
[2023-02-27] MEDS: 0.9% Saline Lock 10 ML Syringe IV (04:04)
[2023-02-27 04:16] LABS: Absolute Lymphocyte Count 2.11 X10^3/uL (0.83-4.51); Absolute Neutrophil Count 19.8 X10^3/uL (2.0-7.7); Basophil# 0.05 X10^3/uL; Basophil% 0.2 % (0-1); Eosinophil# 0.01 X10^3/uL; Hematocrit 37.7 % (37-47); Hemoglobin 12.1 g/dL (12.0-15.0); Lymphocyte # 2.11 X10^3/ul (0.83-4.51); Lymphocyte % 9.4 % (19-41); Mean Corp Hgb Conc 32.1 g/dL (32-36); Mean Corpuscular Hgb 29.7 pg (27.0-32.0); Mean Corpuscular Volume 92.4 fL (81-99); Mean Platelet Vol. 10.4 fl (6.2-12.0); Monocyte% 1.3 % (0-10); NRBC Flagged by Analyzer 0 % (0-5); Neutrophil # 19.79 X10^3/uL (2.7-7.7); Neutrophil % 88.5 % (47-70); Platelet Count 270 K/mm3 (150-450); RBC Distribution Width CV 13.8 % (11.6-14.6); RBC Distribution Width SD 47.1 fl (35.1-43.9); Red Blood Count 4.08 M/mm3 (4.2-5.4); White Blood Count 22.4 K/mm3 (4.4-11.0)
[2023-02-27 04:44] LABS: ALB/GLOB Ratio 0.7 RATIO (0.9-2.4); AST(SGOT) 34 U/L (15-37); Alanine Aminotransfer ALT/SGPT 18 U/L (13-56); Albumin, Serum 2.6 g/dL (3.2-5.0); Alkaline Phosphatase 46 U/L (45-117); Anion Gap 9 (5-15); BUN 16 mg/dL (7-18); BUN/Creat Ratio 11.3 RATIO (10-20); Calcium,Total 7.9 mg/dL (8.5-10.1); Chloride 109 mmol/L (98-107); Creatinine, Serum 1.42 mg/dL (0.55-1.02); EST Glomerular Filtration Rate 44 mL/min (>60); Est Glom Filt Rate - Afr Amer 53 mL/min (>60); Estimated Creatinine Clearance 51.72 ml/min; Globulin 3.9 g/dL (2.2-4.2); Glucose 223 mg/dL (74-106); Potassium 3.5 mmol/L (3.5-5.1); Protein, Total 6.5 g/dL (6.4-8.2); Sodium Level 137 mmol/L (136-145)
[2023-02-27 05:02] LABS: Cholesterol 129 mg/dL (200); High Density Lipoprotein 14 mg/dL; Thyroid Stim Hormone (TSH) 0.55 uIU/mL (0.358-3.74); Triglycerides 210 mg/dL; Very Low Density Lipoprotein 42 mg/dL (5-40)
--- NOTE | 2023-02-27 05:23 | RAD_ITS ---
STUDY: X-RAY CHEST REASON FOR EXAM: Female, 37 years old. Fever and cough TECHNIQUE: Single AP portable view of the chest. COMPARISON: 02/26/2023 FINDINGS: EKG leads overlie the chest Lungs are expanded with progression/worsening of diffuse airspace opacifications in both lung aguiar since the previous study. Follow-up recommended to show resolution Normal size heart. Normal mediastinum and araceli. Normal visualized pulmonary arteries. Normal visualized aortic arch and descending thoracic aorta. Normal visualized thoracic spine. Normal visualized ribs, clavicles, and shoulders. There is no demonstrated abnormality of the visualized soft tissue structures of the upper abdomen. RAD/Chest 1 View (Portable) IMPRESSION: Progression/worsening of diffuse airspace opacifications in both lung aguiar without pleural effusions. This pattern of opacification can often be seen with Covid pneumonia. Follow-up recommended to assure resolution Electronically Signed: Junior Barcenas MD at 10:40 EST ,
[2023-02-27] MEDS: Albuterol 2.5 MG/3 ML VIAL.NEB. INHALATION (07:13)
--- NOTE | 2023-02-27 07:28 | PCM.PN.HOSP ---
Reason for Visit Reason for Visit: Diagnoses Sepsis, unspecified organism (02/27/23) Other specified viral diseases (02/27/23) Interstitial pulmonary disease, unspecified (02/27/23) Acute respiratory failure with hypoxia (02/27/23) Acute bronchospasm (02/27/23) Subjective Subjective 37-year-old lady with recent diagnosis of RSV presented with shortness of breath. Imaging studies demonstrated bilateral pulmonary opacities patient was also found to have leukocytosis. Admitted to a monitored bed for subsequent manage Objective Data Objective Data Vital Signs: Vital Signs Temp Pulse Resp BP Pulse Ox O2 Del Method O2 Flow Rate 97.3 F L 91 29 H 113/73 96 High Flow 10 02/27/23 02:35 02/27/23 07:18 02/27/23 07:18 02/27/23 07:00 02/27/23 07:18 02/27/23 07:18 02/27/23 07:18 Oxygen Flow Rate (L/min) 10 Oxygen Delivery Method High Flow Weight: 115.7 kg Body Mass Index (BMI) 39.9 Intake & Output: Intake and Output for Last 24 Hours 02/25/23 02/26/23 02/27/23 23:59 23:59 23:59 Intake Total 3505 / 3505 Output Total 1400 / 1400 Balance 2105 / 2105 Lab / Micro Data 02/27/23 04:05 02/27/23 04:05 Labs: Laboratory Results - last 24 hr 02/26/23 22:55: WBC 19.5 H, RBC 4.62, Hgb 13.6, Hct 41.4, MCV 89.6, MCH 29.4, MCHC 32.9, RDW Std Deviation 45.1 H, RDW Coeff of Kendra 13.8, Plt Count 265, MPV 10.4, Immature Gran % (Auto) 0.800, Neut % (Auto) 69.2, Lymph % (Auto) 25.6, [place] % (Auto) 3.4, Eos % (Auto) 0.7, Baso % (Auto) 0.3, Absolute Neuts (auto) 13.5 H, Absolute Lymphs (auto) 4.99 H, Nucleated RBC % 0, Sodium 136, Potassium 3.7, Chloride 107, Carbon Dioxide 21.0, Anion Gap 8, BUN 19 H, Creatinine 1.42 H, Estim Creat Clear Calc 51.72, Est GFR (MDRD) Af Amer 53 L, Est GFR (MDRD) Non-Af 44 L, BUN/Creatinine Ratio 13.4, Glucose 114 H, Calcium 8.4 L 02/27/23 01:12: Lactic Acid 1.5 02/27/23 04:05: WBC 22.4 H, RBC 4.08 L, Hgb 12.1, Hct 37.7, MCV 92.4, MCH 29.7, MCHC 32.1, RDW Std Deviation 47.1 H, RDW Coeff of Kendra 13.8, Plt Count 270, MPV 10.4, Immature Gran % (Auto) 0.600, Neut % (Auto) 88.5 H, Lymph % (Auto) 9.4 L, [place] % (Auto) 1.3, Eos % (Auto) 0.0, Baso % (Auto) 0.2, Absolute Neuts (auto) 19.8 H, Absolute Lymphs (auto) 2.11, Nucleated RBC % 0, Sodium 137, Potassium 3.5, Chloride 109 H, Carbon Dioxide 19.0 L, Anion Gap 9, BUN 16, Creatinine 1.42 H, Estim Creat Clear Calc 51.72, Est GFR (MDRD) Af Amer 53 L, Est GFR (MDRD) Non-Af 44 L, BUN/Creatinine Ratio 11.3, Glucose 223 H, Calcium 7.9 L, Total Bilirubin 0.30, AST 34, ALT 18, Alkaline Phosphatase 46, Total Protein 6.5, Albumin 2.6 L, Globulin 3.9, Albumin/Globulin Ratio 0.7 L, Triglycerides 210 H, Cholesterol 129, LDL Cholesterol 73, VLDL Cholesterol 42 H, HDL Cholesterol 14 L, TSH 0.55 Micro: Microbiology 02/27/23 02:55 Mucosa - Nasopharyngeal Respiratory Panel (PCR) - Final RSV B 02/27/23 03:25 Urine, Clean Catch Legionella Antigen - Final 02/27/23 03:25 Urine, Clean Catch Streptococcus pneumoniae Antigen (M - Final ABG Data ABG results: ABG 02/27/23 01:28 Specimen Type ART Sample Site L Radial pH 7.44 Bicarbonate Actual 18.5 L Total CO2 19 Base Excess -6 L O2 Saturation 91 L O2 % 2.0 ABG pCO2 27.0 L ABG pO2 58 L Homero Test Positive O2 Delivery Device Cannula Vent Mode Not entered Radiography Diagnostic Testing: Radiology Impression Chest X-Ray 02/26/23 00:08 IMPRESSION: Bilateral pulmonary opacities concerning for infection. Electronically Signed: Terence Braxton MD at 0:45 EST , Physical Exam Narrative GENERAL: cooperative but tachypneic at rest HEENT: Atraumatic; normocephalic EYES; Anicteric, Normal Conjunctiva NECK; supple, normal thyroid, RESPIRATORY: Diminished to auscultation tachypneic at rest CARDIOVASCULAR: Regular S1 S2, tachycardic GI: soft, normoactive bowel sounds, : No Renal angle tenderness; EXTREMITIES: No edema, no clubbing, MUSCULOSKELETAL: no muscle wasting NEURO: Awake; no lateralizing signs. SKIN: No Rash PSYCH; Flat affect Assessment & Plan Assessment/Plan (1) RSV (respiratory syncytial virus infection): PLAN: Plan 37-year-old lady with recent diagnosis of RSV presented with shortness of breath. Imaging studies demonstrated bilateral pulmonary opacities patient was also found to have leukocytosis. Admitted to a monitored bed for subsequent management 1. Sepsis secondary to RSV infection with superimposed pneumonia ? Evidence of sepsis leukocytosis, tachypnea as well as evidence of endorgan respiratory failure acute hypoxic respiratory failure 2. Recent RSV infection ? With suspected superimposed bacterial pneumonia. Patient admitted for symptomatic management in addition to antibiotic therapy with Rocephin and azithromycin in addition to supplemental oxygen 3. Acute hypoxic respiratory respiratory failure ? Secondary to RSV infection with superimposed bacterial pneumonia, asthma with acute exacerbation evidenced by patient being tachypneic with heart rate greater than 30, patient requiring 10 L flow of oxygen to maintain adequate saturation. Patient placed on supplemental oxygen consult placed to pulmonary medicine 4. Acute asthma exacerbation ? Per stated by patient's recent RSV infection manage bronchodilator treatments in addition to systemic steroids 5. Dyslipidemia -Patient is on statin therapy, continued at home dose 6. Hypertension - Blood pressure controlled, home medications continued with dose adjustment as needed 7. Class II obesity with BMI of 39.9 ? Complicating care weight loss advised 8. History of DVT ? Currently not any systemic anticoagulation 9. Nonalcoholic fatty liver disease ? Patient to follow-up with PCP for subsequent care 10. Depression with anxiety ? Did continue home meds 11. DVT prophylaxis - On enoxaparin Time spent in the patient's overall evaluation,decision-making process, review of diagnostic data, adjustment of management, discussion with other providers, nursing nursing and ancillary staff involved in patient's care documentation, 50 Minutes . Charges/Coding Visit Charges Inpatient E&M: [address] [facility] Hosp L3
[2023-02-27 09:03] LABS: M R Staph aureus DNA By PCR Negative (Negative); Probe Check PASS; Specimen Processing Control PASS
--- NOTE | 2023-02-27 10:08 | CON.PCM.CC_ITS ---
Assessment & Plan Assessment/Plan (1) RSV (respiratory syncytial virus infection): (2) Acute hypoxemic respiratory failure: (3) Bilateral interstitial pneumonia: (4) Sepsis without acute organ dysfunction: QUALIFIERS: Sepsis type: sepsis due to unspecified organism Anuragprince roman Code(s): A41.9 - Sepsis, unspecified organism PLAN: Plan RECOMMENDATIONS: 1. Transition to Airvo. CPAP with sleep 2. Continue empiric antibiotics pending cultures 3. Initiate scheduled bronchodilators 4. Initiate sliding scale insulin 5. No waylon given MRSA swab negative IMPRESSIONS: 1. Sepsis secondary to bilateral pneumonia Patient with 3 SIRS criteria and has been noted to have fever. Clinical course is suggestive of a secondary bacterial infection with RSV as an initiating factor. Patient is still positive for RSV, but 1 would expect this to be improving given clinical course. Patient's creatinine is slightly elevated, but this appears to be close to her baseline. Unfortunately, patient is developing respiratory failure as evidence of endorgan damage. Patient's blood pressure has been doing well at this time, so we will hold off on any pressors. 2. Acute hypoxic respiratory failure Patient with significant bilateral infiltrates. Patient's oxygen requirements have significantly worsened over the last 12 to 24 hours. Patient has been initiated on steroids, bronchodilators and antibiotics. Cultures are currently pending. Patient does have a history of tracheostomy, but does not appear to have a history of stridor or upper airway obstruction. Patient does have an extensive smoking history, so there is concern about an underlying obstructive lung disease such as asthma or COPD. Patient is on steroids at this time, but this does complicate her recovery and prognosis. Patient would b enefit from outpatient workup including pulmonary function test. Patient will need a walking oximetry prior to discharge. 3. Diabetes mellitus Patient reportedly has a history of type 2 diabetes mellitus that is under diet control. Unfortunately, patient does require steroids secondary to problem #2. Patient will be placed on a sliding scale insulin at this time, but cannot exclude the need for basal insulin moving forward. 4. ELLEN/hyperlipidemia/obesity/delayed presentation/anxiety/restless legs/history of fatty liver disease/iron deficiency anemia Complicates care, management, recovery and prognosis. Patient is on her baseline medications. Patient will be initiated on CPAP with sleep, but this may need to be transition to BiPAP given patient's current respiratory status. TIME: 32 minutes critical care time spent addressing patient's acute hypoxic respiratory failure, sepsis review of all data and collaboration with care team HPI Consult Data Date of Consult: 02/27/23 HPI Narrative Reason for Consultation: Respiratory failure HPI Narrative: JEAN MARIE ALBRECHT is a 37 F, with past medical history listed below, who presents to [facility] on 02/26/2023 secondary to approximately 1 week of sh ortness of breath, cough and wheezing that is progressing. Patient reportedly had been diagnosed with RSV a week ago and was using conservative therapy. Patient does have a significant smoking history despite young age. Patient stated that she had some rhinorrhea, postnasal drip and sore throat. Patient did have a cough productive of green to yellow sputum. Patient had denied any dysuria, frequency, urgency or hematuria. Patient did have myalgias. Patient reportedly has had issues with a rash with amoxicillin previously. Patient does use albuterol as needed, but no daily inhaler therapy. In the ER, patient was noted to have a temperature of 99.7 ?F and normotensive. Patient was also noted to be tachypneic at 34 breaths/min and had to be placed on supplemental oxygen to maintain saturations. Laboratory workup showed a white blood cell count of 19.5 with hemoglobin of 13.6 and platelets of 265. Chemistry showed a creatinine of 1.42 with a bicarbonate of 21 and glucose of 114. Chest x-ray showed right lower lobe infiltrate. Given concerns for superimposed bacterial infection, patient was placed on antibiotics, Solu-Medrol and bronchodilators. Patient was admitted to the intensive care unit for further evaluation. Since being in the intensive care unit, patient's oxygen requirements have significantly worsened. Patient did have a fever of 38.1 ?C overnight and oxyg en requirements have increased to 10 L/min. Chest x-ray does show progression of bilateral infiltrates. Patient's blood sugars have also been elevated at over 200. Patient reports initiation of smoking in her teens. Patient does have a history of previous respiratory failure requiring tracheostomy for 2 to 3 months. Patient states this was discontinued. Patient does not follow with a pulmono logist at baseline. Patient is not on any maintenance inhalers. Patient is unaware of any previous PFT. Patient does not use supplemental oxygen at baseline. Patient does report a history of ELLEN and uses CPAP of 7 cm of water. Patient reportedly is compliant with this therapy. Review of systems otherwise negative from a constitutional, HEENT, respiratory, cardiovascular, GI, genitourinary, musculoskeletal, skin, neurologic, psychiatric and hematologic system unless stated above. [facility]LY [facility] Medical History DVT (deep venous thrombosis) Fatty liver Gallbladder problem Leukocytosis Type 2 diabetes mellitus Home Medications albuterol sulfate 90 mcg/actuation aerosol inhaler (Ventolin HFA) 2 puff IH 4X/DAY PRN PRN Allergies 06/17/18 [History Last Taken Unknown] ferrous sulfate 325 mg (65 mg iron) tablet 325 mg PO DAILY 12/03/18 [History Last Taken Unknown] metoprolol tartrate 25 mg tablet 12.5 mg PO BID 12/03/18 [History Last Taken U nknown] ondansetron HCl 8 mg tablet 8 mg PO Q8H PRN PRN Nausea 03/29/20 [History Last Taken Unknown] atorvastatin 40 mg tablet (Lipitor) 40 mg PO QHS 05/15/21 [History Last Taken Unknown] cholecalciferol (vitamin D3) 1,250 mcg (50,000 unit) capsule 1,250 mcg PO QWEEK 05/15/21 [History Last Taken Unknown] fenofibrate nanocrystallized 145 mg tablet (Tricor) 145 mg PO DAILY 05/15/21 [History Last Taken Unknown] gabapentin 100 mg capsule 100 mg PO DAILY PRN 05/15/21 [History Last Taken Unknown] gabapentin 400 mg capsule 400 mg PO 4X/DAY 05/15/21 [History Last Taken Unknown] lorazepam 0.5 mg tablet (Ativan) 0.5 mg PO DAILY PRN 05/15/21 [History Last Taken Unknown] magnesium oxide 400 mg PO DAILY 05/15/21 [History Last Taken Unknown] quetiapine 50 mg tablet (Seroquel) 50 mg PO QHS 05/15/21 [History Last Taken Unknown] riboflavin (vitamin B2) 400 mg tablet 400 mg PO DAILY 05/15/21 [History Last Taken Unknown] Allergy/AdvReac Type Severity Reaction Status Date / Time Bleach (Sodium Hypochlorite) Allergy Hives Verified 05/17/21 07:19 heparin Allergy Other Verified 05/17/21 07:19 amoxicillin [Amoxicillin] AdvReac Rash Verified 05/17/21 07:19 citalopram hydrobromide AdvReac Mood Verified 05/17/21 07:19 [From Celexa] Family History Mother Diabetes Hypertension Asthma Sister Prediabetes Grandmother Kidney failure maternal Surgical History H/O dilation and curettage H/O tubal ligation History of partial hysterectomy Social History household members: significant other and children Smoking Status: Current every day smoker tobacco type: cigarettes substance use type: does not use ROS ROS Narrative See HPI Physical Exam Const alert and oriented x3 Constitutional Narrative: Patient is tachypneic with noted conversational dyspnea. Patient's mentation appears to be slightly improved compared to presentation General Appearance: cooperative HEENT normocephalic, head/scalp atraumatic, hearing grossly normal bilaterally and moist oral mucous membranes HEENT Narrative: Crowded posterior pharynx Eyes PERRL, EOMs intact bilaterally and conjunctivae normal Eyes Narrative: Glasses in place Neck no lymphadenopathy and supple Lymph Lymphatic Narrative: Cervical lymphadenopathy appreciated Resp Resp Narrative: No stridor appreciated Effort and Inspection: tachypneic Auscultation: rhonchi throughout, wheezes and diminished lung sounds Cardio regular rate, regular rhythm, S1 normal heart sound, S2 normal heart sound, no murmurs, no rub and no gallops GI normal to inspection, nondistended, normoactive bowel sounds Extremity normal to inspection, full ROM and no clubbing, cyanosis or edema Skin no rashes or lesions noted Neuro oriented x3, CN's II-XII intact bilaterally, moves all extremities and no focal motor deficits Psych Mood & Affect: anxious Medical Records Data Attestation: I reviewed the patient's medical records Lab / Micro Data Attestation: I reviewed the patient's lab results. 02/27/23 04:05 02/27/23 04:05 Labs: Laboratory Results - last 24 hr 02/26/23 22:55: WBC 19.5 H, RBC 4.62, Hgb 13.6, Hct 41.4, MCV 89.6, MCH 29.4, MCHC 32.9, RDW Std Deviation 45.1 H, RDW Coeff of Kendra 13.8, Plt Count 265, MPV 10.4, Immature Gran % (Auto) 0.800, Neut % (Auto) 69.2, Lymph % (Auto) 25.6, [place] % (Auto) 3.4, Eos % (Auto) 0.7, Baso % (Auto) 0.3, Absolute Neuts (auto) 13.5 H, Absolute Lymphs (auto) 4.99 H, Nucleated RBC % 0, Sodium 136, Potassium 3.7, Chloride 107, Carbon Dioxide 21.0, Anion Gap 8, BUN 19 H, Creatinine 1.42 H , Estim Creat Clear Calc 51.72, Est GFR (MDRD) Af Amer 53 L, Est GFR (MDRD) Non- Af 44 L, BUN/Creatinine Ratio 13.4, Glucose 114 H, Calcium 8.4 L 02/27/23 01:12: Lactic Acid 1.5 02/27/23 04:05: WBC 22.4 H, RBC 4.08 L, Hgb 12.1, Hct 37.7, MCV 92.4, MCH 29.7, MCHC 32.1, RDW Std Deviation 47.1 H, RDW Coeff of Kendra 13.8, Plt Count 270, MPV 10.4, Immature Gran % (Auto) 0.600, Neut % (Auto) 88.5 H, Lymph % (Auto) 9.4 L, [place] % (Auto) 1.3, Eos % (Auto) 0.0, Baso % (Auto) 0.2, Absolute Neuts (auto) 19.8 H, Absolute Lymphs (auto) 2.11, Nucleated RBC % 0, Sodium 137, Potassium 3.5, Chloride 109 H, Carbon Dioxide 19.0 L, Anion Gap 9, BUN 16, Creatinine 1.42 H, Estim Creat Clear Calc 51.72, Est GFR (MDRD) Af Amer 53 L, Est GFR (MDRD) Non-Af 44 L, BUN/Creatinine Ratio 11.3, Glucose 223 H, Calcium 7.9 L, Total Bilirubin 0.30, AST 34, ALT 18, Alkaline Phosphatase 46, Total Protein 6.5, Albumin 2.6 L, Globulin 3.9, Albumin/Globulin Ratio 0.7 L, Triglycerides 210 H, Cholesterol 129, LDL Cholesterol 73, VLDL Cholesterol 42 H, HDL Cholesterol 14 L , TSH 0.55 02/27/23 06:30: MRSA (PCR) Negative Micro: Microbiology 02/27/23 02:55 Mucosa - Nasopharyngeal Respiratory Panel (PCR) - Final RSV B 02/27/23 03:25 Urine, Clean Catch Legionella Antigen - Final 02/27/23 03:25 Urine, Clean Catch Streptococcus pneumoniae Antigen (M - Final ABG Data ABG results: ABG 02/27/23 01:28 Specimen Type ART Sample Site L Radial pH 7.44 Bicarbonate Actual 18.5 L Total CO2 19 Base Excess -6 L O2 Saturation 91 L O2 % 2.0 ABG pCO2 27.0 L ABG pO2 58 L Homero Test Positive O2 Delivery Device Cannula Vent Mode Not entered Attestation: I personally reviewed and interpreted this ABG as follows: (Partially compensated metabolic acidosis with increased AA gradient) Rhythm Strip Rhythm Strip: Sinus Rhythm Rate: 88 Ectopy: None Imagaing Radiology Impression Chest X-Ray 02/26/23 00:08 IMPRESSION: Bilateral pulmonary opacities concerning for infection. Electronically Signed: Terence Braxton MD at 0:45 EST , Charges/Coding Procedures Hospitalists Procedures: [id number] Critial Care 1st Hr
[2023-02-27] MEDS: Acetaminophen 500 MG Tablet 1000 MG PO ×2 (10:09→22:25)
[2023-02-27] MEDS: Ferrous Sulfate 325 MG Tablet PO (10:10)
[2023-02-27] MEDS: Fenofibrate 145 MG Tablet PO (10:11)
[2023-02-27] MEDS: Ascorbic Acid 500 MG Tablet 1000 MG PO (10:12)
[2023-02-27] MEDS: Gabapentin 400 MG Capsule PO ×3 (10:18→20:38)
[2023-02-27] MEDS: Enoxaparin 40 MG/0.4 ML Syringe SC (10:18)
--- NOTE | 2023-02-27 10:45 | ECHOCS_ITS ---
Reason For Study: Arrhythmia Procedure This was a 2D Doppler, Color Flow transthoracic echocardiogram. The study was technically difficult. Contrast injection was performed. Exam performed portable in ICU/CCU. Left Ventricle Normal size and thickness. The left ventricular ejection fraction is 55 %. No evidence for diastolic dysfunction. Right Ventricle Mildly dilated right ventricle. Mild global right ventricular systolic dysfunction. Atria The left and right atria are normal. Mitral Valve Trivial mitral valve insufficiency. Tricuspid Valve The tricuspid valve is not well visualized. No tricuspid valve insufficiency. Aortic Valve The aortic valve is not well visualized in the short axis view. There is no aortic stenosis. No aortic valve insufficiency. Pulmonic Valve The pulmonic valve is not well visualized. Great Vessels Normal sized aortic root. Pericardium/Pleural No pericardial effusion. Medication Diluted definity 3ml given slow IV push to enhance endocardial definition. MMode/2D Measurements & Calculations LVIDd: 5.0 cm IVSd: 1.1 cm Ao root diam: 3.4 cm LVIDs: 3.2 cm LVPWd: 1.1 cm LA dimension: 3.8 cm RVDd: 4.0 cm FS: 35.0 % LAV(MOD-bp): 31.4 ml LVAd ap4: 35.1 cm2 SV(MOD-sp4): 69.8 ml LAV(MOD-bp) Indexed: 14.0 ml/m2 LVLd ap4: 8.8 cm LAV(MOD-sp2): 36.4 ml EDV(MOD-sp4): 114.7 ml LAV(MOD-sp4): 23.4 ml EDV(sp4-el): 118.6 ml LVAs ap4: 18.9 cm2 LVLs ap4: 6.7 cm ESV(MOD-sp4): 44.9 ml ESV(sp4-el): 44.8 ml EF(MOD-sp4): 60.9 % EF(sp4-el): 62.2 % SV(sp4-el): 73.8 ml LA A4 area: 12.1 cm2 RA A4 area: 12.5 cm2 TAPSE: 2.1 cm Time Measurements MV dec time: 0.19 sec Doppler Measurements & Calculations MV E max ezequiel: 101.0 cm/sec Lat Peak E' Ezequiel: 15.0 cm/sec Med Peak E' Ezequiel: 13.9 cm/sec MV A max ezequiel: 84.6 cm/sec E/E' lat: 6.8 E/E' med: 7.3 MV E/A: 1.2 MV V2 max: 120.9 cm/sec MV P1/2t max ezequiel: 120.9 cm/sec Ao V2 max: 116.1 cm/sec MV max P.8 mmHg MV P1/2t: 67.5 msec Ao max P.4 mmHg MV V2 mean: 66.3 cm/sec Ao V2 mean: 86.6 cm/sec MV mean P.1 mmHg MV dec slope: 524.3 cm/sec2 Ao mean P.4 mmHg MV V2 VTI: 32.5 cm MVA(P1/2t): 3.3 cm2 Ao V2 VTI: 24.1 cm AV (velocity ratio): 1.1 LV V1 max: 118.6 cm/sec PA V2 max: 88.8 cm/sec LV V1 max P.6 mmHg LV V1 mean P.5 mmHg LV V1 mean: 89.0 cm/sec LV V1 VTI: 26.0 cm ECHO/Echo Complete W/ Contrast Interpretation Summary The left ventricular ejection fraction is 55 %. Mildly dilated right ventricle. Mild global right ventricular systolic dysfunction. The study was technically difficult. Ordering Physician: Lupillo Jovel Performed By: Miko Del Castillo RCS
[2023-02-27] MEDS: Ipratropium/Albuterol Sulfate 3 ML AMPUL.NEB INHALATION ×4 (11:08→22:42)
--- NOTE | 2023-02-27 11:30 | CASEMGMT ---
RN CM Face to Face with patient for initial transition planning/care coordination assessment. RN CM introduced self and role at [facility]. Patient lying in bed, alert and oriented. Patient willing to participate in assessment and is able to answer all questions appropriately. Care providers, pharmacy, and demographics verified. Patient wishes to discharge home, denies need for home health at this time. Patient states she has no further needs or concerns at this time. CM to follow for discharge planning needs that may arise. PCP: No PCP, list provided with information for [facility] Specialists: none Preferred Pharmacy: [facility] Insurance: [place] Prescription Benefit: yes Living Will/HPOA: none LNOK: fiance Living Arrangements: Patient lives fiance in a mobile home with 5 steps and railing to enter the home. Patient states she is independent at home. Transportation: self, fiance DME/HHC: Patient has cpap at home. No previous HHC or SNF. Will monitor for home oxygen and glucometer at discharge. Patient prefers [employer] for DME. Disposition Plan: Patient to discharge home with family support and follow-up plans in place. Luisana HERRERA, RN, CM
[2023-02-27 17:16] LABS: Bedside Glucose 147 mg/dL (74-106)
[2023-02-27] MEDS: Atorvastatin Calcium 40 MG Tablet PO (20:38)
[2023-02-27] MEDS: QUEtiapine 25 MG Tablet 50 MG PO (20:38)
[2023-02-27] MEDS: Ceftriaxone 1 GM in 0.9% Normal Saline (50mL MB+) 50 ML IV (20:38)
[2023-02-27 21:03] LABS: Bedside Glucose 98 mg/dL (74-106)
[2023-02-27] MEDS: guaiFENesin 10 ML UDC (200MG/10ML) PO (22:12)
--- NOTE | 2023-02-27 23:31 | CPS ---
Attempted CPAP with patient at current home settings. CPAP of 7 and nasal mask, however patient didn't tolerate this. Patient wanting to go back on airvo 50L and 60%
[2023-02-28] VITALS (32 sets, daily range): BP systolic 79–135; BP diastolic 46–87; PULSE 60–109; RESP 20–38; TEMP 36.4–37.8; O2SAT 30–96; BMI 40.2
[2023-02-28 03:48] LABS: Absolute Lymphocyte Count 3.19 X10^3/uL (0.83-4.51); Absolute Neutrophil Count 22.5 X10^3/uL (2.0-7.7); Basophil# 0.08 X10^3/uL; Basophil% 0.3 % (0-1); Differential Indicated SCAN CRITERIA MET; Hematocrit 38.2 % (37-47); Hemoglobin 12.2 g/dL (12.0-15.0); Lymphocyte # 3.19 X10^3/ul (0.83-4.51); Mean Corp Hgb Conc 31.9 g/dL (32-36); Mean Corpuscular Hgb 29.3 pg (27.0-32.0); Mean Corpuscular Volume 91.8 fL (81-99); Mean Platelet Vol. 10.3 fl (6.2-12.0); Monocyte# 0.45 X10^3/uL; Monocyte% 1.7 % (0-10); NRBC Flagged by Analyzer 0 % (0-5); Neutrophil % 84.5 % (47-70); POSITIVE DIFFERENTIAL YES; Platelet Count 305 K/mm3 (150-450); RBC Distribution Width CV 14.3 % (11.6-14.6); RBC Distribution Width SD 48.2 fl (35.1-43.9); Red Blood Count 4.16 M/mm3 (4.2-5.4); White Blood Count 26.6 K/mm3 (4.4-11.0)
[2023-02-28] MEDS: Ipratropium/Albuterol Sulfate 3 ML AMPUL.NEB INHALATION ×6 (03:48→22:30)
[2023-02-28 04:05] LABS: AST(SGOT) 34 U/L (15-37); Alanine Aminotransfer ALT/SGPT 18 U/L (13-56); Albumin, Serum 2.7 g/dL (3.2-5.0); Alkaline Phosphatase 49 U/L (45-117); Anion Gap 5 (5-15); BUN 15 mg/dL (7-18); BUN/Creat Ratio 14.2 RATIO (10-20); Bilirubin, Direct 0.17 mg/dL (0.00-0.30); Calcium,Total 8.8 mg/dL (8.5-10.1); Chloride 110 mmol/L (98-107); Creatinine, Serum 1.06 mg/dL (0.55-1.02); EST Glomerular Filtration Rate 61 mL/min (>60); Est Glom Filt Rate - Afr Amer 74 mL/min (>60); Estimated Creatinine Clearance 69.29 ml/min; Globulin 4.4 g/dL (2.2-4.2); Glucose 174 mg/dL (74-106); Magnesium 2.4 mg/dL (1.6-2.6); Phosphorus 3.5 mg/dL (2.5-4.9); Potassium 4.6 mmol/L (3.5-5.1); Protein, Total 7.1 g/dL (6.4-8.2); Sodium Level 137 mmol/L (136-145)
[2023-02-28 04:49] LABS: Differential Comment SCANNED
[2023-02-28] MEDS: 0.9% Saline Lock 10 ML Syringe IV ×3 (06:30→09:42)
--- NOTE | 2023-02-28 07:37 | PN.CC_ITS ---
Assessment & Plan Assessment/Plan (1) RSV (respiratory syncytial virus infection): (2) Acute hypoxemic respiratory failure: (3) Bilateral interstitial pneumonia: (4) Sepsis without acute organ dysfunction: QUALIFIERS: Sepsis type: sepsis due to unspecified organism Anurag roman Code(s): A41.9 - Sepsis, unspecified organism PLAN: Plan RECOMMENDATIONS: 1. Continue Airvo. Encourage CPAP with sleep 2. Continue empiric antibiotics pending cultures 3. Continue scheduled bronchodilators 4. Initiate sliding scale insulin 5. No vancomycin given MRSA swab negative IMPRESSIONS: 1. Sepsis secondary to bilateral pneumonia Patient with 3 SIRS criteria and has been noted to have fever. Clinical course is suggestive of a secondary bacterial infection with RSV as an initiating factor. Patient is still positive for RSV, but 1 would expect this to be improving given clinical course. Patient's creatinine is slightly elevated, but this appears to be close to her baseline. Unfortunately, patient is developing respiratory failure as evidence of endorgan damage. Patient's blood pressure has been doing well at this time, so we will hold off on any pressors. Blood pressure has dropped slightly with antibiotics, suggesting a possible bacterial component, but cultures are negative to this point. 2. Acute hypoxic respiratory failure Patient with significant bilateral infiltrates. Patient's oxygen requirements have significantly worsened over the last 12 to 24 hours. Patient has been initiated on steroids, bronchodilators and antibiotics. Cultures are currently pending. Patient does have a history of tracheostomy, but does not appear to have a history of stridor or upper airway obstruction. Patient does have an extensive smoking history, so there is concern about an underlying obstructive lung disease such as asthma or COPD. Patient is on empiric steroids at this time, but this does complicate her recovery and prognosis. Patient would benefit from outpatient workup including pulmonary function test. Patient will need a walking oximetry prior to discharge. 3. Diabetes mellitus Patient reportedly has a history of type 2 diabetes mellitus that is under diet control. Unfortunately, patient does require steroids secondary to problem #2. Patient will be placed on a sliding scale insulin at this time, but cannot exclude the need for basal insulin moving forward. 4. ELLEN/hyperlipidemia/obesity/delayed presentation/anxiety/restless legs/history of fatty liver disease/iron deficiency anemia Complicates care, management, recovery and prognosis. Patient is on her baseline medications. Patient will be initiated on CPAP with sleep, but this may need to be transition to BiPAP given patient's current respiratory status. Subjective Subjective Patient did okay overnight. Patient did refuse CPAP despite reported compliance at home. Patient states she feels much improved, but is requiring 50% FiO2 on Airvo to maintain saturations. Patient was able to make it to the chair yesterday. Objective Data Objective Data Vital Signs: Vital Signs Temp Pulse Resp BP Pulse Ox O2 Del Method O2 Flow Rate 36.6 C 72 29 H 111/74 30 Airvo 50 02/28/23 04:00 02/28/23 07:00 02/28/23 07:00 02/28/23 07:00 02/28/23 07:00 02/28/23 07:00 02/28/23 07:00 FiO2 65 02/28/23 07:00 Oxygen Flow Rate (L/min) 50 Oxygen Delivery Method Airvo Weight: 116.3 kg Body Mass Index (BMI) 40.2 Intake & Output: Intake and Output for Last 24 Hours 02/26/23 02/27/23 02/28/23 23:59 23:59 23:59 Intake Total 3810 / 4110 500 / 500 Output Total 1700 / 1700 Balance 2110 / 2410 500 / 500 Lab / Micro Data Attestation: I reviewed the patient's lab results. 02/28/23 03:39 02/28/23 03:39 Labs: Laboratory Results - last 24 hr 02/27/23 06:30: MRSA (PCR) Negative 02/27/23 16:52: POC Glucose 147 H 02/27/23 20:37: POC Glucose 98 02/28/23 03:39: WBC 26.6 H, RBC 4.16 L, Hgb 12.2, Hct 38.2, MCV 91.8, MCH 29.3, MCHC 31.9 L, RDW Std Deviation 48.2 H, RDW Coeff of Kendra 14.3, Plt Count 305, MPV 10.3, Immature Gran % (Auto) 1.500 H, Neut % (Auto) 84.5 H, Lymph % (Auto) 12.0 L, [place] % (Auto) 1.7, Eos % (Auto) 0.0, Baso % (Auto) 0.3, Absolute Neuts (auto) 22.5 H, Absolute Lymphs (auto) 3.19, Nucleated RBC % 0, Differential Comment SCANNED, Sodium 137, Potassium 4.6, Chloride 110 H, Carbon Dioxide 22.0, Anion Gap 5, BUN 15, Creatinine 1.06 H, Estim Creat Clear Calc 69.29, Est GFR (MDRD) Af Amer 74, Est GFR (MDRD) Non-Af 61, BUN/Creatinine Ratio 14.2, Glucose 174 H, Calcium 8.8, Phosphorus 3.5, Magnesium 2.4, Total Bilirubin 0.40, Direct Bilirubin 0.17, AST 34, ALT 18, Alkaline Phosphatase 49, Total Protein 7.1, Albumin 2.7 L, Globulin 4.4 H Micro: Microbiology 02/27/23 15:24 Mucosa - Nasopharyngeal Coronavirus COVID-19 PCR - Final 02/27/23 02:55 Mucosa - Nasopharyngeal Respiratory Panel (PCR) - Final RSV B 02/27/23 03:25 Urine, Clean Catch Legionella Antigen - Final 02/27/23 03:25 Urine, Clean Catch Streptococcus pneumoniae Antigen (M - Final Radiography Diagnostic Testing: Radiology Impression Chest X-Ray 02/27/23 05:23 IMPRESSION: Progression/worsening of diffuse airspace opacifications in both lung aguiar without pleural effusions. This pattern of opacification can often be seen with Covid pneumonia. Follow-up recommended to assure resolution Electronically Signed: Junior Barcenas MD at 10:40 EST , Echocardiogram 02/27/23 10:45 Interpretation Summary The left ventricular ejection fraction is 55 %. Mildly dilated right ventricle. Mild global right ventricular systolic dysfunction. The study was technically difficult. Ordering Physician: Lupillo Jovel Performed By: Miko Del Castillo RCS Rhythm Strip Rhythm Strip: Sinus Rhythm Rate: 88 Ectopy: None Physical Exam Const alert and oriented x3 Constitutional Narrative: On Airvo during my evaluation General Appearance: cooperative HEENT normocephalic, head/scalp atraumatic, hearing grossly normal bilaterally and moist oral mucous membranes Eyes PERRL, EOMs intact bilaterally and conjunctivae normal Eyes Narrative: Glasses in place Neck no lymphadenopathy and supple Lymph Lymphatic Narrative: Cervical lymphadenopathy appreciated Resp Resp Narrative: No stridor appreciated Effort and Inspection: Negative for tachypneic Auscultation: rhonchi throughout, wheezes and diminished lung sounds Cardio regular rate, regular rhythm, S1 normal heart sound, S2 normal heart sound, no murmurs, no rub and no gallops GI normal to inspection, nondistended, normoactive bowel sounds Extremity normal to inspection, full ROM and no clubbing, cyanosis or edema Skin no rashes or lesions noted Neuro oriented x3, CN's II-XII intact bilaterally, moves all extremities and no focal motor deficits Psych Mood & Affect: anxious Charges/Coding Visit Charges Inpatient E&M: 79462 Subs Hosp L3
--- NOTE | 2023-02-28 07:42 | PCM.PN.HOSP ---
Reason for Visit Reason for Visit: Diagnoses Sepsis, unspecified organism (02/27/23) Other specified viral diseases (02/27/23) Interstitial pulmonary disease, unspecified (02/27/23) Acute respiratory failure with hypoxia (02/27/23) Acute bronchospasm (02/27/23) Subjective Subjective Patient seen remains tachypneic with rising WBC count patient was placed on Airvo Objective Data Objective Data Vital Signs: Vital Signs Temp Pulse Resp BP Pulse Ox O2 Del Method O2 Flow Rate 97.9 F 72 29 H 111/74 30 Airvo 50 02/28/23 04:00 02/28/23 07:00 02/28/23 07:00 02/28/23 07:00 02/28/23 07:00 02/28/23 07:00 02/28/23 07:00 FiO2 65 02/28/23 07:00 Oxygen Flow Rate (L/min) 50 Oxygen Delivery Method Airvo Weight: 116.3 kg Body Mass Index (BMI) 40.2 Intake & Output: Intake and Output for Last 24 Hours 02/26/23 02/27/23 02/28/23 23:59 23:59 23:59 Intake Total 3810 / 4110 500 / 500 Output Total 1700 / 1700 Balance 2110 / 2410 500 / 500 Lab / Micro Data 02/28/23 03:39 02/28/23 03:39 Labs: Laboratory Results - last 24 hr 02/27/23 06:30: MRSA (PCR) Negative 02/27/23 16:52: POC Glucose 147 H 02/27/23 20:37: POC Glucose 98 02/28/23 03:39: WBC 26.6 H, RBC 4.16 L, Hgb 12.2, Hct 38.2, MCV 91.8, MCH 29.3, MCHC 31.9 L, RDW Std Deviation 48.2 H, RDW Coeff of Kendra 14.3, Plt Count 305, MPV 10.3, Immature Gran % (Auto) 1.500 H, Neut % (Auto) 84.5 H, Lymph % (Auto) 12.0 L, [place] % (Auto) 1.7, Eos % (Auto) 0.0, Baso % (Auto) 0.3, Absolute Neuts (auto) 22.5 H, Absolute Lymphs (auto) 3.19, Nucleated RBC % 0, Differential Comment SCANNED, Sodium 137, Potassium 4.6, Chloride 110 H, Carbon Dioxide 22.0, Anion Gap 5, BUN 15, Creatinine 1.06 H, Estim Creat Clear Calc 69.29, Est GFR (MDRD) Af Amer 74, Est GFR (MDRD) Non-Af 61, BUN/Creatinine Ratio 14.2, Glucose 174 H, Calcium 8.8, Phosphorus 3.5, Magnesium 2.4, Total Bilirubin 0.40, Direct Bilirubin 0.17, AST 34, ALT 18, Alkaline Phosphatase 49, Total Protein 7.1, Albumin 2.7 L, Globulin 4.4 H Micro: Microbiology 02/27/23 15:24 Mucosa - Nasopharyngeal Coronavirus COVID-19 PCR - Final 02/27/23 02:55 Mucosa - Nasopharyngeal Respiratory Panel (PCR) - Final RSV B 02/27/23 03:25 Urine, Clean Catch Legionella Antigen - Final 02/27/23 03:25 Urine, Clean Catch Streptococcus pneumoniae Antigen (M - Final Radiography Diagnostic Testing: Radiology Impression Chest X-Ray 02/27/23 05:23 IMPRESSION: Progression/worsening of diffuse airspace opacifications in both lung aguiar without pleural effusions. This pattern of opacification can often be seen with Covid pneumonia. Follow-up recommended to assure resolution Electronically Signed: Junior Barcenas MD at 10:40 EST , Echocardiogram 02/27/23 10:45 Interpretation Summary The left ventricular ejection fraction is 55 %. Mildly dilated right ventricle. Mild global right ventricular systolic dysfunction. The study was technically difficult. Ordering Physician: Lupillo Jovel Performed By: Miko Del Castillo RCS Rhythm Strip Rhythm Strip: Sinus Rhythm Rate: 88 Ectopy: None Physical Exam Narrative GENERAL: cooperative but tachypneic at rest HEENT: Atraumatic; normocephalic EYES; Anicteric, Normal Conjunctiva NECK; supple, normal thyroid, RESPIRATORY: Diminished to auscultation tachypneic at rest CARDIOVASCULAR: Regular S1 S2, tachycardic GI: soft, normoactive bowel sounds, : No Renal angle tenderness; EXTREMITIES: No edema, no clubbing, MUSCULOSKELETAL: no muscle wasting NEURO: Awake; no lateralizing signs. SKIN: No Rash PSYCH; Flat affect Assessment & Plan Assessment/Plan (1) RSV (respiratory syncytial virus infection): PLAN: Plan 37-year-old lady with recent diagnosis of RSV presented with shortness of breath. Imaging studies demonstrated bilateral pulmonary opacities patient was also found to have leukocytosis. Admitted to a monitored bed for subsequent management 1. Sepsis secondary to RSV infection with superimposed pneumonia ? Evidence of sepsis leukocytosis, tachypnea as well as evidence of endorgan respiratory failure acute hypoxic respiratory failure 2. Recent RSV infection ? With suspected superimposed bacterial pneumonia. Patient admitted for symptomatic management in addition to antibiotic therapy with Rocephin and azithromycin in addition to supplemental oxygen 3. Acute hypoxic respiratory respiratory failure ? Secondary to RSV infection with superimposed bacterial pneumonia, asthma with acute exacerbation evidenced by patient being tachypneic with heart rate greater than 30, patient requiring 10 L flow of oxygen to maintain adequate saturation. Patient placed on supplemental oxygen consult placed to pulmonary medicine ? 02/28/2023 patient placed on Airvo 4. Acute asthma exacerbation ? Per stated by patient's recent RSV infection manage bronchodilator treatments in addition to systemic steroids 5. Dyslipidemia -Patient is on statin therapy, continued at home dose 6. Hypertension - Blood pressure controlled, home medications continued with dose adjustment as needed 7. Class II obesity with BMI of 39.9 ? Complicating care weight loss advised 8. History of DVT ? Currently not any systemic anticoagulation 9. Nonalcoholic fatty liver disease ? Patient to follow-up with PCP for subsequent care 10. Depression with anxiety ? Did continue home meds 11. DVT prophylaxis - On enoxaparin Time spent in the patient's overall evaluation,decision-making process, review of diagnostic data, adjustment of management, discussion with other providers, nursing nursing and ancillary staff involved in patient's care documentation, 50 Minutes . Charges/Coding Visit Charges Inpatient E&M: 33434 Subs Hosp L3
[2023-02-28] MEDS: Enoxaparin 40 MG/0.4 ML Syringe SC (08:26)
[2023-02-28] MEDS: Fenofibrate 145 MG Tablet PO (08:26)
[2023-02-28] MEDS: LORazepam 0.5 MG Tablet PO (08:26)
[2023-02-28] MEDS: Gabapentin 400 MG Capsule PO ×4 (08:26→21:00)
[2023-02-28] MEDS: Ferrous Sulfate 325 MG Tablet PO (08:26)
[2023-02-28] MEDS: guaiFENesin 10 ML UDC (200MG/10ML) PO ×4 (08:27→21:09)
[2023-02-28 08:53] LABS: Bedside Glucose 144 mg/dL (74-106)
[2023-02-28] MEDS: Ondansetron 4 MG/2 ML Vial IV ×2 (09:42→21:09)
[2023-02-28] MEDS: Acetaminophen 500 MG Tablet 1000 MG PO (16:48)
[2023-02-28] MEDS: Atorvastatin Calcium 40 MG Tablet PO (21:00)
[2023-02-28] MEDS: QUEtiapine 25 MG Tablet 50 MG PO (21:00)
[2023-02-28] MEDS: Ceftriaxone 1 GM in 0.9% Normal Saline (50mL MB+) 50 ML IV (21:01)
[2023-02-28 21:22] LABS: Bedside Glucose 113 mg/dL (74-106)
[2023-02-28] MEDS: Azithromycin 500 MG in Dextrose 5%-Water (250mL Bag) 250 ML 250 MG IV (22:26)
--- NOTE | 2023-02-28 22:52 | CPS ---
Patient wearing Home CPAP with 4L Oxygen bled in
[2023-03-01] VITALS (35 sets, daily range): BP systolic 95–131; BP diastolic 55–87; PULSE 67–97; RESP 16–38; TEMP 36.7–37.2; O2SAT 85–98; BMI 39.4
--- NOTE | 2023-03-01 02:23 | CPS ---
Patient RR increase, [employer] requested Patient wear Home CPAP while asleep, 7L oxygen bled in at this time
--- NOTE | 2023-03-01 02:25 | CPS ---
7L oxygen bled into Home CPAP
[2023-03-01] MEDS: Acetaminophen 500 MG Tablet 1000 MG PO ×2 (05:05→15:37)
[2023-03-01 05:46] LABS: Absolute Neutrophil Count 17.9 X10^3/uL (2.0-7.7); Basophil# 0.13 X10^3/uL; Basophil% 0.6 % (0-1); Eosinophil# 0.04 X10^3/uL; Eosinophils% 0.2 % (0-5); Hematocrit 38.1 % (37-47); Hemoglobin 12.3 g/dL (12.0-15.0); Lymphocyte % 17.7 % (19-41); Mean Corp Hgb Conc 32.3 g/dL (32-36); Mean Corpuscular Hgb 29.4 pg (27.0-32.0); Mean Corpuscular Volume 90.9 fL (81-99); Mean Platelet Vol. 10.3 fl (6.2-12.0); Monocyte# 0.35 X10^3/uL; Monocyte% 1.5 % (0-10); NRBC Flagged by Analyzer 0 % (0-5); Neutrophil # 17.91 X10^3/uL (2.7-7.7); Neutrophil % 77.4 % (47-70); Platelet Count 358 K/mm3 (150-450); RBC Distribution Width CV 14.2 % (11.6-14.6); RBC Distribution Width SD 47.7 fl (35.1-43.9); Red Blood Count 4.19 M/mm3 (4.2-5.4); White Blood Count 23.1 K/mm3 (4.4-11.0)
[2023-03-01 05:59] LABS: Anion Gap 3 (5-15); BUN 20 mg/dL (7-18); BUN/Creat Ratio 17.2 RATIO (10-20); Calcium,Total 8.9 mg/dL (8.5-10.1); Chloride 107 mmol/L (98-107); Creatinine, Serum 1.16 mg/dL (0.55-1.02); EST Glomerular Filtration Rate 55 mL/min (>60); Est Glom Filt Rate - Afr Amer 67 mL/min (>60); Estimated Creatinine Clearance 63.32 ml/min; Glucose 154 mg/dL (74-106); Potassium 4.2 mmol/L (3.5-5.1); Sodium Level 137 mmol/L (136-145)
--- NOTE | 2023-03-01 07:06 | PCM.PN.INT ---
Assessment & Plan Assessment/Plan (1) RSV (respiratory syncytial virus infection): (2) Acute hypoxemic respiratory failure: (3) Bilateral interstitial pneumonia: (4) Sepsis without acute organ dysfunction: QUALIFIERS: Sepsis type: sepsis due to unspecified organism Qualified Code(s): A41.9 - Sepsis, unspecified organism PLAN: Plan RECOMMENDATIONS: 1. Attempt high flow nasal cannula during the day. Encourage CPAP with sleep 2. Continue empiric antibiotics to complete a 5-day course 3. Continue scheduled bronchodilators 4. Continue sliding scale insulin 5. Walking oximetry prior to discharge 6. Possible transfer from the intensive care unit pending response to nasal cannula during the day 7. Outpatient pulmonary follow-up following discharge. IMPRESSIONS: 1. Sepsis secondary to bilateral pneumonia Patient with 3 SIRS criteria and has been noted to have fever. Clinical course is suggestive of a secondary bacterial infection with RSV as an initiating factor. Patient is still positive for RSV, but 1 would expect this to be improving given clinical course. Patient's creatinine was slightly elevated, but this appears to be close to her baseline. Unfortunately, patient is developing respiratory failure as evidence of endorgan damage. Patient has not required any pressors during hospitalization. Blood pressure has dropped slightly with antibiotics, suggesting a possible bacterial component, but cultures are negative to this point. Anticipate a 5-day course of antibiotics is likely sufficient as RSV may be leading to respiratory status. 2. Acute hypoxic respiratory failure Patient with significant bilateral infiltrates. Patient's oxygen requirements have significantly worsened over the last 12 to 24 hours. Patient has been initiated on steroids, bronchodilators and antibiotics. Cultures are currently pending. Patient does have a history of tracheostomy, but does not appear to have a history of stridor or upper airway obstruction. Patient does have an extensive smoking history, so there is concern about an underlying obstructive lung disease such as asthma or COPD. Patient is on empiric steroids at this time, but this does complicate her recovery and prognosis. Likely wean steroids once patient starts to improve from an oxygenation standpoint. Patient would benefit from outpatient workup including pulmonary function test. Patient will need a walking oximetry prior to discharge. 3. Diabetes mellitus Patient reportedly has a history of type 2 diabetes mellitus that is under diet control. Unfortunately, patient does require steroids secondary to problem #2. Patient will be placed on a sliding scale insulin at this time, but cannot exclude the need for basal insulin moving forward. 4. ELLEN/hyperlipidemia/obesity/delayed presentation/anxiety/restless legs/history of fatty liver disease/iron deficiency anemia Complicates care, management, recovery and prognosis. Patient is on her baseline medications. Patient will be continued on CPAP with sleep. Lower concern for BiPAP requirements given hospital course. Subjective Subjective Patient did okay over the last 24 hours. Patient continues to have a cough and was on Airvo during the day. Patient did tolerate her nasal CPAP overnight, but had to have a 10 L bleed. Patient subjectively feels improved compared to yesterday. Patient has had some intermittent nausea, but associates this with the use of steroids. Objective Data Objective Data Vital Signs: Vital Signs Temp Pulse Resp BP Pulse Ox O2 Del Method O2 Flow Rate 36.9 C 69 28 H 107/71 94 CPAP 10 03/01/23 05:00 03/01/23 06:00 03/01/23 06:00 03/01/23 06:00 03/01/23 06:00 03/01/23 06:00 03/01/23 04:12 FiO2 76 03/01/23 01:55 Oxygen Flow Rate (L/min) 10 Oxygen Delivery Method CPAP Weight: 114.2 kg Body Mass Index (BMI) 39.4 Intake & Output: Intake and Output for Last 24 Hours 02/27/23 02/28/23 03/01/23 23:59 23:59 23:59 Intake Total 3810 / 4110 1900 / 1900 255 / 255 Output Total 1700 / 1700 Balance 2110 / 2410 1900 / 1900 255 / 255 Lab / Micro Data Attestation: I reviewed the patient's lab results. 03/01/23 05:35 03/01/23 05:35 Labs: Laboratory Results - last 24 hr 02/28/23 08:23: POC Glucose 144 H 02/28/23 20:58: POC Glucose 113 H 03/01/23 05:35: WBC 23.1 H, RBC 4.19 L, Hgb 12.3, Hct 38.1, MCV 90.9, MCH 29.4, MCHC 32.3, RDW Std Deviation 47.7 H, RDW Coeff of Kendra 14.2, Plt Count 358, MPV 10.3, Immature Gran % (Auto) 2.600 H, Neut % (Auto) 77.4 H, Lymph % (Auto) 17.7 L, [place] % (Auto) 1.5, Eos % (Auto) 0.2, Baso % (Auto) 0.6, Absolute Neuts (auto) 17.9 H, Absolute Lymphs (auto) 4.10, Nucleated RBC % 0, Sodium 137, Potassium 4.2, Chloride 107, Carbon Dioxide 27.0, Anion Gap 3 L, BUN 20 H, Creatinine 1.16 H, Estim Creat Clear Calc 63.32, Est GFR (MDRD) Af Amer 67, Est GFR (MDRD) Non-Af 55 L, BUN/Creatinine Ratio 17.2, Glucose 154 H, Calcium 8.9 Micro: Microbiology 02/27/23 15:24 Mucosa - Nasopharyngeal Coronavirus COVID-19 PCR - Final 02/27/23 02:55 Mucosa - Nasopharyngeal Respiratory Panel (PCR) - Final RSV B 02/27/23 03:25 Urine, Clean Catch Legionella Antigen - Final 02/27/23 03:25 Urine, Clean Catch Streptococcus pneumoniae Antigen (M - Final Rhythm Strip Rhythm Strip: Sinus Rhythm Rate: 82 Ectopy: None Physical Exam Const alert and oriented x3 Constitutional Narrative: On nasal CPAP during my evaluation. General Appearance: cooperative HEENT normocephalic, head/scalp atraumatic, hearing grossly normal bilaterally and moist oral mucous membranes Eyes PERRL, EOMs intact bilaterally and conjunctivae normal Eyes Narrative: Glasses in place Neck no lymphadenopathy and supple Lymph Lymphatic Narrative: Cervical lymphadenopathy appreciated Resp Resp Narrative: No stridor appreciated Effort and Inspection: Negative for tachypneic Auscultation: diminished lung sounds; Negative for rhonchi or wheezes Cardio regular rate, regular rhythm, S1 normal heart sound, S2 normal heart sound, no murmurs, no rub and no gallops GI normal to inspection, nondistended, normoactive bowel sounds Extremity normal to inspection, full ROM and no clubbing, cyanosis or edema Skin no rashes or lesions noted Neuro oriented x3, CN's II-XII intact bilaterally, moves all extremities and no focal motor deficits Psych Mood & Affect: anxious Charges/Coding Visit Charges Inpatient E&M: 26864 Subs Hosp L3
--- NOTE | 2023-03-01 07:13 | PCM.PN.HOSP ---
Reason for Visit Reason for Visit: Diagnoses Sepsis, unspecified organism (02/27/23) Other specified viral diseases (02/27/23) Interstitial pulmonary disease, unspecified (02/27/23) Acute respiratory failure with hypoxia (02/27/23) Acute bronchospasm (02/27/23) Subjective Subjective Patient seen WBC count remains elevated. Patient was on her CPAP at night and Airvo during the day. She requested resumption of her psychotropic medications. Did resume her Topamax, diazepam and Prozac. Objective Data Objective Data Vital Signs: Vital Signs Temp Pulse Resp BP Pulse Ox O2 Del Method O2 Flow Rate 98.5 F 69 26 H 105/68 97 CPAP 10 03/01/23 05:00 03/01/23 07:00 03/01/23 07:00 03/01/23 07:00 03/01/23 07:00 03/01/23 07:00 03/01/23 04:12 FiO2 76 03/01/23 01:55 Oxygen Flow Rate (L/min) 10 Oxygen Delivery Method CPAP Weight: 114.2 kg Body Mass Index (BMI) 39.4 Intake & Output: Intake and Output for Last 24 Hours 02/27/23 02/28/23 03/01/23 23:59 23:59 23:59 Intake Total 3810 / 4110 1900 / 1900 255 / 255 Output Total 1700 / 1700 Balance 2110 / 2410 1900 / 1900 255 / 255 Lab / Micro Data 03/01/23 05:35 03/01/23 05:35 Labs: Laboratory Results - last 24 hr 02/28/23 08:23: POC Glucose 144 H 02/28/23 20:58: POC Glucose 113 H 03/01/23 05:35: WBC 23.1 H, RBC 4.19 L, Hgb 12.3, Hct 38.1, MCV 90.9, MCH 29.4, MCHC 32.3, RDW Std Deviation 47.7 H, RDW Coeff of Kendra 14.2, Plt Count 358, MPV 10.3, Immature Gran % (Auto) 2.600 H, Neut % (Auto) 77.4 H, Lymph % (Auto) 17.7 L, [place] % (Auto) 1.5, Eos % (Auto) 0.2, Baso % (Auto) 0.6, Absolute Neuts (auto) 17.9 H, Absolute Lymphs (auto) 4.10, Nucleated RBC % 0, Sodium 137, Potassium 4.2, Chloride 107, Carbon Dioxide 27.0, Anion Gap 3 L, BUN 20 H, Creatinine 1.16 H, Estim Creat Clear Calc 63.32, Est GFR (MDRD) Af Amer 67, Est GFR (MDRD) Non-Af 55 L, BUN/Creatinine Ratio 17.2, Glucose 154 H, Calcium 8.9 Micro: Microbiology 02/27/23 15:24 Mucosa - Nasopharyngeal Coronavirus COVID-19 PCR - Final 02/27/23 02:55 Mucosa - Nasopharyngeal Respiratory Panel (PCR) - Final RSV B 02/27/23 03:25 Urine, Clean Catch Legionella Antigen - Final 02/27/23 03:25 Urine, Clean Catch Streptococcus pneumoniae Antigen (M - Final Rhythm Strip Rhythm Strip: Sinus Rhythm Rate: 82 Ectopy: None Physical Exam Narrative GENERAL: cooperative but tachypneic at rest HEENT: Atraumatic; normocephalic EYES; Anicteric, Normal Conjunctiva NECK; supple, normal thyroid, RESPIRATORY: Diminished to auscultation tachypneic at rest CARDIOVASCULAR: Regular S1 S2, tachycardic GI: soft, normoactive bowel sounds, : No Renal angle tenderness; EXTREMITIES: No edema, no clubbing, MUSCULOSKELETAL: no muscle wasting NEURO: Awake; no lateralizing signs. SKIN: No Rash PSYCH; Flat affect Assessment & Plan Assessment/Plan (1) RSV (respiratory syncytial virus infection): PLAN: Plan 37-year-old lady with recent diagnosis of RSV presented with shortness of breath. Imaging studies demonstrated bilateral pulmonary opacities patient was also found to have leukocytosis. Admitted to a monitored bed for subsequent management 1. Sepsis secondary to RSV infection with superimposed pneumonia ? Evidence of sepsis leukocytosis, tachypnea as well as evidence of endorgan respiratory failure acute hypoxic respiratory failure. ? 03/01/2023 patient WBC count remains elevated. Cultures pending so far negative to date except for being positive for RSV B 2. Recent RSV infection ? With suspected superimposed bacterial pneumonia. Patient admitted for symptomatic management in addition to antibiotic therapy with Rocephin and azithromycin in addition to supplemental oxygen 3. Acute hypoxic respiratory respiratory failure ? Secondary to RSV infection with superimposed bacterial pneumonia, asthma with acute exacerbation evidenced by patient being tachypneic with heart rate greater than 30, patient requiring 10 L flow of oxygen to maintain adequate saturation. Patient placed on supplemental oxygen consult placed to pulmonary medicine ? 02/28/2023 patient placed on Airvo ? 03/01/2023;Patient seen WBC count remains elevated. Patient was on her CPAP at night and Airvo during the day 4. Acute asthma exacerbation ? Per stated by patient's recent RSV infection manage bronchodilator treatments in addition to systemic steroids 5. Dyslipidemia -Patient is on statin therapy, continued at home dose 6. Hypertension - Blood pressure controlled, home medications continued with dose adjustment as needed 7. Class II obesity with BMI of 39.9 ? Complicating care weight loss advised 8. History of DVT ? Currently not any systemic anticoagulation 9. Nonalcoholic fatty liver disease ? Patient to follow-up with PCP for subsequent care 10. Depression with anxiety ? Did continue home meds 11. DVT prophylaxis - On enoxaparin Time spent in the patient's overall evaluation,decision-making process, review of diagnostic data, adjustment of management, discussion with other providers, nursing nursing and ancillary staff involved in patient's care documentation, 50 Minutes . Charges/Coding Visit Charges Inpatient E&M: 97820 [facility] Hosp L3
[2023-03-01] MEDS: Ipratropium/Albuterol Sulfate 3 ML AMPUL.NEB INHALATION ×5 (07:40→23:13)
[2023-03-01 08:25] LABS: Bedside Glucose 121 mg/dL (74-106)
[2023-03-01 08:37] LABS: Bedside Glucose 110 mg/dL (74-106)
[2023-03-01] MEDS: Ondansetron 4 MG/2 ML Vial IV ×2 (09:36→20:58)
[2023-03-01] MEDS: 0.9% Saline Lock 10 ML Syringe IV (09:43)
[2023-03-01] MEDS: Enoxaparin 40 MG/0.4 ML Syringe SC (09:44)
[2023-03-01] MEDS: guaiFENesin 10 ML UDC (200MG/10ML) PO ×3 (09:44→20:57)
[2023-03-01] MEDS: Fenofibrate 145 MG Tablet PO (09:44)
[2023-03-01] MEDS: Gabapentin 400 MG Capsule PO ×4 (09:44→20:59)
[2023-03-01] MEDS: LORazepam 0.5 MG Tablet PO (09:44)
[2023-03-01] MEDS: Ferrous Sulfate 325 MG Tablet PO (09:48)
[2023-03-01] MEDS: Topiramate 50 MG Tablet PO (10:42)
[2023-03-01] MEDS: Sodium Chloride 0.65% 1 SPRAY SPRAY.BTL NASAL (10:42)
[2023-03-01] MEDS: Famotidine 20 MG Tablet PO (10:42)
[2023-03-01] MEDS: Fluoxetine HCl 40 MG CAPSULE PO (10:42)
[2023-03-01 12:21] LABS: Bedside Glucose 103 mg/dL (74-106)
[2023-03-01] MEDS: Atorvastatin Calcium 40 MG Tablet PO (20:59)
[2023-03-01] MEDS: Ceftriaxone 1 GM/50 mL Premix Q24 IV (20:59)
[2023-03-01] MEDS: QUEtiapine 25 MG Tablet 50 MG PO (20:59)
[2023-03-01] MEDS: diazePAM 5 MG Tablet 2.5 MG PO (20:59)
[2023-03-01] MEDS: Azithromycin 500 MG in Dextrose 5%-Water (250mL Bag) 250 ML 250 MG IV (21:46)
--- NOTE | 2023-03-01 23:19 | CPS ---
10L oxygen ran through Home CPAP
[2023-03-02] VITALS (19 sets, daily range): BP systolic 93–127; BP diastolic 49–82; PULSE 63–84; RESP 18–30; TEMP 36.4–36.8; O2SAT 92–98; BMI 39.3
[2023-03-02 03:30] LABS: Hematocrit 37.6 % (37-47); Hemoglobin 11.9 g/dL (12.0-15.0); Mean Corp Hgb Conc 31.6 g/dL (32-36); Mean Corpuscular Hgb 29.6 pg (27.0-32.0); Mean Corpuscular Volume 93.5 fL (81-99); Mean Platelet Vol. 10.4 fl (6.2-12.0); POSITIVE COUNT YES; POSITIVE MORPHOLOGY YES; Platelet Count 379 K/mm3 (150-450); RBC Distribution Width CV 14.1 % (11.6-14.6); RBC Distribution Width SD 48.4 fl (35.1-43.9); Red Blood Count 4.02 M/mm3 (4.2-5.4); White Blood Count 16.8 K/mm3 (4.4-11.0)
[2023-03-02 03:35] LABS: Differential Indicated MANUAL DIFF
[2023-03-02 03:43] LABS: Anion Gap 5 (5-15); BUN 20 mg/dL (7-18); Calcium,Total 8.4 mg/dL (8.5-10.1); Chloride 107 mmol/L (98-107); Creatinine, Serum 1.11 mg/dL (0.55-1.02); EST Glomerular Filtration Rate 58 mL/min (>60); Est Glom Filt Rate - Afr Amer 70 mL/min (>60); Estimated Creatinine Clearance 66.17 ml/min; Glucose 148 mg/dL (74-106); Potassium 4.3 mmol/L (3.5-5.1); Sodium Level 139 mmol/L (136-145)
[2023-03-02] MEDS: Ipratropium/Albuterol Sulfate 3 ML AMPUL.NEB INHALATION ×6 (03:51→23:12)
[2023-03-02 03:54] LABS: Myelocyte 1 % (0-0); Neutrophil-Segmented 71 % (47-70); Total Cells Counted 100 (MANUAL DIFF)
[2023-03-02 03:55] LABS: Eosinophil 1 % (0-5); Lymphocyte 22 % (19-41); Monocyte 2 % (0-10)
[2023-03-02 03:57] LABS: Absolute Neutrophil Count 12.4 X10^3/uL (2.0-7.7)
--- NOTE | 2023-03-02 07:50 | PN.CC_ITS ---
Assessment & Plan Assessment/Plan (1) RSV (respiratory syncytial virus infection): (2) Acute hypoxemic respiratory failure: (3) Bilateral interstitial pneumonia: (4) Sepsis without acute organ dysfunction: QUALIFIERS: Sepsis type: sepsis due to unspecified organism Anurag lified Code(s): A41.9 - Sepsis, unspecified organism PLAN: Plan RECOMMENDATIONS: 1. Continue to wean supplemental oxygen to maintain saturations at or above 90%. 2. Continue nocturnal CPAP therapy. 3. Continue antimicrobials to complete treatment course. 4. Continue bronchodilators and steroids. Okay from my perspective to transition to prednisone today. 5. Perform walking oximetry study prior to consideration for discharge home. IMPRESSIONS: 1. Sepsis secondary to bilateral pneumonia The patient continues to demonstrate favorable clinical response to antimic robials, which will be continued to complete treatment course for underlying pneumonia. The patient remains hemodynamically stable. 2. Acute hypoxic respiratory failure Appears to be multifactorial with RSV and bacterial pneumonia contributing. The patient is responding favorably to antibiotics, bronchodilators and steroids. Plan to transition from IV Solu-Medrol to prednisone 40 mg daily today. The patient does have an extensive tobacco abuse history so there would be concern for underlying obstructive lung disease and/or asthma. Continue supplemental oxygen to maintain saturations at or above 90%. The patient would benefit from outpatient pulmonary workup after discharge. 3. Diabetes mellitus/ELLEN/hyperlipidemia/obesity/delayed present ation/anxiety/restless legs/history of fatty liver disease/iron deficiency anemia Complicates care, management, recovery and prognosis. Continue home medications as indicated. This note was generated with [employer] dictation software. It may contain incorrect words, spelling, and punctuation that were not noted in checking the note before signing. Subjective Subjective The patient was seen and examined at the bedside this morning. Events from the last 24 hours have been reviewed. The patient is currently afebrile, hemodynamically stable and maintaining appropriate oxygen saturations on her home CPAP therapy. Previously, the patient was on 10 L/min high flow nasal cannula. Despite this, she does report feeling less short of breath with improvement in her cough. She is currently documented to be overall net +4.8 L for the hospitalization. White count has improved to 16,000. Objective Data Objective Data The patient's most recent lab work, culture data and imaging studies have all been personally reviewed. Surface echocardiogram demonstrated normal LV size and function with an ejection fraction of 55%. Respiratory viral panel was positive for RSV on February 27. COVID PCR was negative. Strep and urine Legionella antigens were negative. Vital Signs: Vital Signs Temp Pulse Resp BP Pulse Ox O2 Del Method O2 Flow Rate 98 F 67 20 H 118/70 98 CPAP 10 03/02/23 03:00 03/02/23 07:18 03/02/23 07:18 03/02/23 07:00 03/02/23 07:17 03/02/23 07:17 03/02/23 07:17 FiO2 10 03/01/23 23:00 Oxygen Flow Rate (L/min) 10 Oxygen Delivery Method CPAP Weight: 251 lb 1.704 oz Body Mass Index (BMI) 39.3 Intake & Output: Intake and Output for Last 24 Hours 02/28/23 03/01/23 03/02/23 23:59 23:59 23:59 Intake Total 1900 / 1900 1060 / 1060 Output Total 200 / 200 Balance 1900 / 1900 860 / 860 Lab / Micro Data 03/02/23 03:15 03/02/23 03:15 Labs: Laboratory Results - last 24 hr 02/28/23 16:42: POC Glucose 110 H 03/01/23 08:05: POC Glucose 121 H 03/01/23 12:03: POC Glucose 103 03/02/23 03:15: WBC 16.8 H, RBC 4.02 L, Hgb 11.9 L, Hct 37.6, MCV 93.5, MCH 29.6, MCHC 31.6 L, RDW Std Deviation 48.4 H, RDW Coeff of Kendra 14.1, Plt Count 379, MPV 10.4, Neut % (Auto) Not Reportable, Absolute Neuts (auto) 12.4 H, Absolute Lymphs (auto) 3.70, Total Counted 100, Neutrophils % (Manual) 71 H, Lymphocytes % (Manual) 22, Monocytes % (Manual) 2, Eosinophils % (Manual) 1, Myelocytes % 1 H, Diff Path Review July, Sodium 139, Potassium 4.3, Chloride 107, Carbon Dioxide 27.0, Anion Gap 5, BUN 20 H, Creatinine 1.11 H, Estim Creat Clear Calc 66.17, Est GFR (MDRD) Af Amer 70, Est GFR (MDRD) Non-Af 58 L, BUN/Creatinine Ratio 18.0, Glucose 148 H, Calcium 8.4 L Micro: Microbiology 02/27/23 01:22 Blood Culture (Wb) - Right Forearm Blood Culture - Preliminary No growth in 48 hours. 02/27/23 01:12 Blood Culture (Wb) - Anticubital Left Blood Culture - Preliminary No growth in 48 hours. 02/27/23 15:24 Mucosa - Nasopharyngeal Coronavirus COVID-19 PCR - Final 02/27/23 02:55 Mucosa - Nasopharyngeal Respiratory Panel (PCR) - Final RSV B 02/27/23 03:25 Urine, Clean Catch Legionella Antigen - Final 02/27/23 03:25 Urine, Clean Catch Streptococcus pneumoniae Antigen (M - Fin al Rhythm Strip Rhythm Strip: Sinus Rhythm Rate: 82 Ectopy: None Physical Exam Const alert and no apparent distress General Appearance: cooperative HEENT normocephalic, head/scalp atraumatic and moist oral mucous membranes Eyes PERRL, EOMs intact bilaterally and conjunctivae normal Neck supple General: trachea midline Chest inspection of chest normal Resp normal respiratory effort Auscultation: Negative for rales, rhonchi or wheezes Cardio regular rate and regular rhythm GI normal to inspection, nondistended, normoactive bowel sounds Extremity no clubbing, cyanosis or edema Skin no rashes or lesions noted Neuro oriented x3, CN's II-XII intact bilaterally and moves all extremities Psych cooperative and affect normal Charges/Coding Visit Charges Inpatient E&M: 89392 Subs Hosp L2
[2023-03-02] MEDS: diazePAM 5 MG Tablet 2.5 MG PO ×2 (08:59→20:51)
[2023-03-02] MEDS: Zinc Sulfate 50 mg zinc (220 mg) ORAL capsule PO (09:00)
[2023-03-02] MEDS: Ferrous Sulfate 325 MG Tablet PO (09:00)
[2023-03-02] MEDS: Topiramate 50 MG Tablet PO (09:00)
[2023-03-02] MEDS: Fluoxetine HCl 40 MG CAPSULE PO (09:00)
[2023-03-02] MEDS: Fenofibrate 145 MG Tablet PO (09:00)
[2023-03-02] MEDS: Gabapentin 400 MG Capsule PO ×4 (09:01→20:51)
[2023-03-02] MEDS: Ondansetron 4 MG/2 ML Vial IV ×2 (09:01→21:02)
[2023-03-02] MEDS: Famotidine 20 MG Tablet PO (09:01)
[2023-03-02] MEDS: Magnesium Chloride 64 MG Delay Rel.Tablet 128 MG PO (09:01)
[2023-03-02] MEDS: guaiFENesin 10 ML UDC (200MG/10ML) PO ×2 (09:01→22:11)
[2023-03-02] MEDS: 0.9% Saline Lock 10 ML Syringe IV ×3 (09:02→21:06)
[2023-03-02] MEDS: Enoxaparin 40 MG/0.4 ML Syringe SC (09:02)
[2023-03-02] MEDS: predniSONE 20 MG Tablet 40 MG PO (09:02)
[2023-03-02] MEDS: oxyCODONE 5 MG Tablet PO (11:31)
--- NOTE | 2023-03-02 11:36 | PN_ITS ---
Subjective Subjective Patient seen an examined. She complained of headache. She feels her breathing is improving. She denies any cough, chest pain, palpitations, dizziness, nausea, vomiting or any other symptoms. REview of systems is otherwise negative. She was on 10L of oxygen at time I reviewed her this morning, but she is now down to 8L. Review of systems is otherwise negative. Objective Data Objective Data Vital Signs: Vital Signs Temp Pulse Resp BP Pulse Ox O2 Del Method O2 Flow Rate 97.9 F 81 20 H 118/70 97 Nasal Cannula 8 03/02/23 07:00 03/02/23 10:57 03/02/23 10:57 03/02/23 07:00 03/02/23 10:57 03/02/23 10:57 03/02/23 10:57 FiO2 10 03/01/23 23:00 Oxygen Flow Rate (L/min) 8 Oxygen Delivery Method Nasal Cannula Weight: 251 lb 1.704 oz Body Mass Index (BMI) 39.3 Intake & Output: Intake and Output for Last 24 Hours 02/28/23 03/01/23 03/02/23 23:59 23:59 23:59 Intake Total 1900 / 1900 1060 / 1060 Output Total 200 / 200 Balance 1900 / 1900 860 / 860 Lab / Micro Data 03/02/23 03:15 03/02/23 03:15 Labs: Laboratory Results - last 24 hr 03/01/23 12:03: POC Glucose 103 03/02/23 03:15: WBC 16.8 H, RBC 4.02 L, Hgb 11.9 L, Hct 37.6, MCV 93.5, MCH 29.6, MCHC 31.6 L, RDW Std Deviation 48.4 H, RDW Coeff of Kendra 14.1, Plt Count 379, MPV 10.4, Neut % (Auto) Not Reportable, Absolute Neuts (auto) 12.4 H, Absolute Lymphs (auto) 3.70, Total Counted 100, Neutrophils % (Manual) 71 H, Lymphocytes % (Manual) 22, Monocytes % (Manual) 2, Eosinophils % (Manual) 1, Myelocytes % 1 H, Diff Path Review July, Sodium 139, Potassium 4.3, Chloride 107, Carbon Dioxide 27.0, Anion Gap 5, BUN 20 H, Creatinine 1.11 H, Estim Creat Clear Calc 66.17, Est GFR (MDRD) Af Amer 70, Est GFR (MDRD) Non-Af 58 L, BUN/Creatinine Ratio 18.0, Glucose 148 H, Calcium 8.4 L Micro: Microbiology 02/27/23 01:22 Blood Culture (Wb) - Right Forearm Blood Culture - Preliminary No growth in 48 hours. 02/27/23 01:12 Blood Culture (Wb) - Anticubital Left Blood Culture - Preliminary No growth in 48 hours. 02/27/23 15:24 Mucosa - Nasopharyngeal Coronavirus COVID-19 PCR - Final 02/27/23 02:55 Mucosa - Nasopharyngeal Respiratory Panel (PCR) - Final RSV B 02/27/23 03:25 Urine, Clean Catch Legionella Antigen - Final 02/27/23 03:25 Urine, Clean Catch Streptococcus pneumoniae Antigen (M - Final Rhythm Strip Rhythm Strip: Sinus Rhythm Rate: 82 Ectopy: None Physical Exam Const alert, oriented x3 and no apparent distress General Appearance: cooperative HEENT normocephalic, head/scalp atraumatic, moist oral mucous membranes and oropharynx normal Eyes PERRL and EOMs intact bilaterally Neck no lymphadenopathy and supple Lymph Lymphatic: no lymphadenopathy noted and no lymphedema noted Resp Resp Narrative: diminished breath sounds bibasally, no wheezes, few crackles. On 8L of oxygen by nasal canula Cardio regular rate, regular rhythm, S1 normal heart sound, S2 normal heart sound and no murmurs GI normal to inspection, nondistended, normoactive bowel sounds, soft to palpation, non-tender and non-distended Extremity normal capillary refill, no clubbing, cyanosis or edema and no calf tenderness General Extremity: no tenderness to palpation of joints or extremities Skin General Skin Exam: no breakdown Neuro CN's II-XII intact bilaterally, no focal motor deficits, no sensory deficits noted and deep tendon reflexes 2+ bilaterally Motor Exam: strength 5/5 throughout and general weakness Psych thought process normal and cooperative Appearance: appropriate Assessment & Plan Assessment/Plan (1) RSV (respiratory syncytial virus infection): (2) Bilateral interstitial pneumonia: (3) Acute hypoxemic respiratory failure: PLAN: Plan #Acute hypoxic respiratory failure due to RSV infection with superimposed pneumonia * now on 8L of oxygen. * wbc still elevated, but has trended down to 16.8 * titrate oxygen to maintain sats >90% * breathing treatment with bronchodilators. * critical care on board * #Sepsis due to bilateral pneumonia: as above #RSV infection: as above #Hyperlipidemia: on statin and fenofibrate #Hypertension; #History of DVT: currently not any blood thinners. #Hypertension: #NOn alcoholic fatty liver disease: #Depression with anxiety: on fluoxetine and seroquel DVT prophylaxis: lovenox Charges/Coding Visit Charges Inpatient E&M: 62596 Subs Hosp L3
[2023-03-02] MEDS: Ceftriaxone 1 GM/50 mL Premix Q24 IV (20:51)
[2023-03-02] MEDS: Azithromycin 500 MG in Dextrose 5%-Water (250mL Bag) 250 ML 250 MG IV (20:51)
[2023-03-02] MEDS: QUEtiapine 25 MG Tablet 50 MG PO (20:58)
[2023-03-02] MEDS: Atorvastatin Calcium 40 MG Tablet PO (20:58)
[2023-03-03] VITALS (13 sets, daily range): BP systolic 83–120; BP diastolic 60–77; PULSE 67–87; RESP 18–22; TEMP 36.4–36.6; O2SAT 2–97; BMI 39.2
[2023-03-03] MEDS: Ipratropium/Albuterol Sulfate 3 ML AMPUL.NEB INHALATION ×6 (02:18→23:32)
[2023-03-03 04:56] LABS: Hematocrit 41.6 % (37-47); Mean Corp Hgb Conc 31.3 g/dL (32-36); Mean Corpuscular Hgb 29.3 pg (27.0-32.0); Mean Corpuscular Volume 93.7 fL (81-99); Mean Platelet Vol. 10.1 fl (6.2-12.0); POSITIVE COUNT YES; POSITIVE DIFFERENTIAL YES; POSITIVE MORPHOLOGY YES; Platelet Count 428 K/mm3 (150-450); RBC Distribution Width CV 14.1 % (11.6-14.6); RBC Distribution Width SD 48.4 fl (35.1-43.9); Red Blood Count 4.44 M/mm3 (4.2-5.4); White Blood Count 19.1 K/mm3 (4.4-11.0)
[2023-03-03 05:14] LABS: Anion Gap 8 (5-15); BUN 21 mg/dL (7-18); BUN/Creat Ratio 21.4 RATIO (10-20); Calcium,Total 8.6 mg/dL (8.5-10.1); Chloride 107 mmol/L (98-107); Creatinine, Serum 0.98 mg/dL (0.55-1.02); EST Glomerular Filtration Rate 67 mL/min (>60); Est Glom Filt Rate - Afr Amer 81 mL/min (>60); Estimated Creatinine Clearance 74.95 ml/min; Glucose 84 mg/dL (74-106); Potassium 3.5 mmol/L (3.5-5.1); Sodium Level 140 mmol/L (136-145)
[2023-03-03 05:59] LABS: Differential Indicated MANUAL DIFF
[2023-03-03 06:18] LABS: Absolute Neutrophil Count 10.9 X10^3/uL (2.0-7.7)
[2023-03-03 06:19] LABS: Absolute Lymphocyte Count 6.87 X10^3/uL (0.83-4.51); Eosinophil 1 % (0-5); Lymphocyte 36 % (19-41); Metamyelocyte 1 % (0-1); Monocyte 3 % (0-10); Myelocyte 2 % (0-0); Neutrophil-Segmented 57 % (47-70); Total Cells Counted 100 (MANUAL DIFF)
[2023-03-03 06:20] LABS: Differential Comment SCANNED; Reactive Lymphocyte 2+
--- NOTE | 2023-03-03 06:59 | PCM.PN.INT ---
Assessment & Plan Assessment/Plan (1) RSV (respiratory syncytial virus infection): (2) Acute hypoxemic respiratory failure: (3) Bilateral interstitial pneumonia: (4) Sepsis without acute organ dysfunction: QUALIFIERS: Sepsis type: sepsis due to unspecified organism Qualified Code(s): A41.9 - Sepsis, unspecified organism PLAN: Plan RECOMMENDATIONS: 1. Continue to wean supplemental oxygen to maintain saturations at or above 90%. 2. Continue nocturnal CPAP therapy. 3. Continue antimicrobials to complete treatment course. 4. Continue bronchodilators and steroids. Continue prednisone 40 mg daily x 5 days. 5. Perform walking oximetry study prior to consideration for discharge home. 6. Will sign off from a critical care perspective. Please call with any additional questions. IMPRESSIONS: 1. Sepsis secondary to bilateral pneumonia The patient continues to demonstrate favorable clinical response to antimicrobials, which will be continued to complete treatment course for underlying pneumonia. The patient remains hemodynamically stable. 2. Acute hypoxic respiratory failure Appears to be multifactorial with RSV and bacterial pneumonia contributing. The patient is responding favorably to antibiotics, bronchodilators and steroids. Plan to transition from IV Solu-Medrol to prednisone 40 mg daily today. The patient does have an extensive tobacco abuse history so there would be concern for underlying obstructive lung disease and/or asthma. Continue supplemental oxygen to maintain saturations at or above 90%. The patient would benefit from outpatient pulmonary workup after discharge. 3. Diabetes mellitus/ELLEN/hyperlipidemia/obesity/delayed presentation/anxiety/restless legs/history of fatty liver disease/iron deficiency anemia Complicates care, management, recovery and prognosis. Continue home medications as indicated. This note was generated with [employer] dictation software. It may contain incorrect words, spelling, and punctuation that were not noted in checking the note before signing. Subjective Subjective The patient was seen and examined at the bedside this morning. Events from the last 24 hours have been reviewed. The patient is currently afebrile, hemodynamically stable and maintaining appropriate oxygen saturations on 2 L/min via nasal cannula. No overnight issues were identified by the nursing staff. Objective Data Objective Data The patient's most recent lab work, culture data and imaging studies have all been personally reviewed. Surface echocardiogram demonstrated normal LV size and function with an ejection fraction of 55%. Respiratory viral panel was positive for RSV on February 27. COVID PCR was negative. Strep and urine Legionella antigens were negative. Vital Signs: Vital Signs Temp Pulse Resp BP Pulse Ox O2 Del Method O2 Flow Rate 97.8 F 76 18 110/73 97 Nasal Cannula 2 03/03/23 03:00 03/03/23 03:00 03/03/23 03:00 03/03/23 03:00 03/03/23 03:00 03/03/23 03:00 03/03/23 03:00 FiO2 10 03/01/23 23:00 Oxygen Flow Rate (L/min) 2 Oxygen Delivery Method Nasal Cannula Weight: 250 lb 3.594 oz Body Mass Index (BMI) 39.2 Intake & Output: Intake and Output for Last 24 Hours 03/01/23 03/02/23 03/03/23 23:59 23:59 23:59 Intake Total 1060 / 1060 305 / 305 Output Total 200 / 200 Balance 860 / 860 305 / 305 Lab / Micro Data Attestation: I reviewed the patient's lab results. 03/03/23 04:50 03/03/23 04:50 Labs: Laboratory Results - last 24 hr 03/03/23 04:50: WBC 19.1 H, RBC 4.44, Hgb 13.0, Hct 41.6, MCV 93.7, MCH 29.3, MCHC 31.3 L, RDW Std Deviation 48.4 H, RDW Coeff of Kendra 14.1, Plt Count 428, MPV 10.1, Neut % (Auto) Not Reportable, Absolute Neuts (auto) 10.9 H, Absolute Lymphs (auto) 6.87 H, Total Counted 100, Neutrophils % (Manual) 57, Lymphocytes % (Manual) 36, Monocytes % (Manual) 3, Eosinophils % (Manual) 1, Metamyelocytes % 1, Myelocytes % 2 H, Differential Comment SCANNED, Diff Path Review May foll, Reactive Lymphocytes 2+, Sodium 140, Potassium 3.5, Chloride 107, Carbon Dioxide 25.0, Anion Gap 8, BUN 21 H, Creatinine 0.98, Estim Creat Clear Calc 74.95, Est GFR (MDRD) Af Amer 81, Est GFR (MDRD) Non-Af 67, BUN/Creatinine Ratio 21.4 H, Glucose 84, Calcium 8.6 Micro: Microbiology 02/27/23 01:22 Blood Culture (Wb) - Right Forearm Blood Culture - Preliminary No growth in 48 hours. 02/27/23 01:12 Blood Culture (Wb) - Anticubital Left Blood Culture - Preliminary No growth in 48 hours. 02/27/23 15:24 Mucosa - Nasopharyngeal Coronavirus COVID-19 PCR - Final 02/27/23 02:55 Mucosa - Nasopharyngeal Respiratory Panel (PCR) - Final RSV B 02/27/23 03:25 Urine, Clean Catch Legionella Antigen - Final 02/27/23 03:25 Urine, Clean Catch Streptococcus pneumoniae Antigen (M - Final Rhythm Strip Rhythm Strip: Sinus Rhythm Rate: 82 Ectopy: None Physical Exam Const alert and no apparent distress General Appearance: cooperative HEENT normocephalic, head/scalp atraumatic and moist oral mucous membranes Eyes PERRL, EOMs intact bilaterally and conjunctivae normal Neck supple General: trachea midline Chest inspection of chest normal Resp normal respiratory effort Auscultation: Negative for rales, rhonchi or wheezes Cardio regular rate and regular rhythm GI normal to inspection, nondistended, normoactive bowel sounds Extremity no clubbing, cyanosis or edema Skin no rashes or lesions noted Neuro oriented x3, CN's II-XII intact bilaterally and moves all extremities Psych cooperative and affect normal Charges/Coding Visit Charges Inpatient E&M: 93905 Subs Hosp L2
[2023-03-03 07:32] LABS: Pathologist Review Reviewed
[2023-03-03] MEDS: Enoxaparin 40 MG/0.4 ML Syringe SC (08:36)
[2023-03-03] MEDS: Sodium Chloride 0.65% 1 SPRAY SPRAY.BTL NASAL ×2 (08:36→12:22)
[2023-03-03] MEDS: Zinc Sulfate 50 mg zinc (220 mg) ORAL capsule PO (08:38)
[2023-03-03] MEDS: Famotidine 20 MG Tablet PO (08:38)
[2023-03-03] MEDS: Fluoxetine HCl 40 MG CAPSULE PO (08:38)
[2023-03-03] MEDS: predniSONE 20 MG Tablet 40 MG PO (08:38)
[2023-03-03] MEDS: Fenofibrate 145 MG Tablet PO (08:39)
[2023-03-03] MEDS: Ferrous Sulfate 325 MG Tablet PO (08:39)
[2023-03-03] MEDS: diazePAM 5 MG Tablet 2.5 MG PO ×2 (08:39→21:01)
[2023-03-03] MEDS: Gabapentin 400 MG Capsule PO ×4 (08:40→21:00)
[2023-03-03] MEDS: Magnesium Chloride 64 MG Delay Rel.Tablet 128 MG PO (08:40)
[2023-03-03] MEDS: Topiramate 50 MG Tablet PO (08:40)
[2023-03-03] MEDS: guaiFENesin 10 ML UDC (200MG/10ML) PO ×2 (09:23→21:00)
--- NOTE | 2023-03-03 10:47 | CASEMGMT ---
Discharge Planning A list of PCP providers including quality and resource use data and consistent with the patient's preferred geographic region, medical needs, and insurance network was created from the [facility] website. This list was provided to the RN CM. Katarina Coughlin, Discharge Planning Asst.
[2023-03-03 13:01] LABS: Pathologist Review Reviewed
--- NOTE | 2023-03-03 14:54 | PN_ITS ---
Subjective Subjective Patient seen and examined. She said she felt much better. She is down to 1L of oxygen. She denied any cough, chest pain, palpitations, dizziness, nausea, vomiting or any other symptoms. Review of systems is otherwise negative. Objective Data Objective Data Vital Signs: Vital Signs Temp Pulse Resp BP Pulse Ox O2 Del Method O2 Flow Rate 97.5 F L 79 20 H 83/60 L 89 Nasal Cannula 1 03/03/23 08:48 03/03/23 11:45 03/03/23 11:45 03/03/23 08:48 03/03/23 11:15 03/03/23 08:48 03/03/23 11:15 FiO2 10 03/01/23 23:00 Oxygen Flow Rate (L/min) [ 89 AMBULATING with Oxygen #2] Oxygen Flow Rate (L/min) [ 1 AMBULATING with Oxygen #1] Oxygen Flow Rate (L/min) 2 Oxygen Delivery Method Nasal Cannula Weight: 250 lb 3.594 oz Body Mass Index (BMI) 39.2 Intake & Output: Intake and Output for Last 24 Hours 03/01/23 03/02/23 03/03/23 23:59 23:59 23:59 Intake Total 1060 / 1060 305 / 305 300 / 300 Output Total 200 / 200 Balance 860 / 860 305 / 305 300 / 300 Lab / Micro Data 03/03/23 04:50 03/03/23 04:50 Labs: Laboratory Results - last 24 hr 03/02/23 03:15: Diff Path Review Reviewed 03/03/23 04:50: WBC 19.1 H, RBC 4.44, Hgb 13.0, Hct 41.6, MCV 93.7, MCH 29.3, MCHC 31.3 L, RDW Std Deviation 48.4 H, RDW Coeff of Kendra 14.1, Plt Count 428, MPV 10.1, Neut % (Auto) Not Reportable, Absolute Neuts (auto) 10.9 H, Absolute Lymphs (auto) 6.87 H, Total Counted 100, Neutrophils % (Manual) 57, Lymphocytes % (Manual) 36, Monocytes % (Manual) 3, Eosinophils % (Manual) 1, Metamyelocytes % 1, Myelocytes % 2 H, Differential Comment SCANNED, Diff Path Review Reviewed, Reactive Lymphocytes 2+, Sodium 140, Potassium 3.5, Chloride 107, Carbon Dioxide 25.0, Anion Gap 8, BUN 21 H, Creatinine 0.98, Estim Creat Clear Calc 74.95, Est GFR (MDRD) Af Amer 81, Est GFR (MDRD) Non-Af 67, BUN/Creatinine Ratio 21.4 H, Glucose 84, Calcium 8.6 Micro: Microbiology 02/27/23 01:22 Blood Culture (Wb) - Right Forearm Blood Culture - Preliminary No growth in 48 hours. 02/27/23 01:12 Blood Culture (Wb) - Anticubital Left Blood Culture - Preliminary No growth in 48 hours. 02/27/23 15:24 Mucosa - Nasopharyngeal Coronavirus COVID-19 PCR - Final 02/27/23 02:55 Mucosa - Nasopharyngeal Respiratory Panel (PCR) - Final RSV B 02/27/23 03:25 Urine, Clean Catch Legionella Antigen - Final 02/27/23 03:25 Urine, Clean Catch Streptococcus pneumoniae Antigen (M - Final Rhythm Strip Rhythm Strip: Sinus Rhythm Rate: 82 Ectopy: None Physical Exam Const alert, oriented x3 and no apparent distress General Appearance: cooperative Orientation / Consciousness: lethargic HEENT normocephalic, head/scalp atraumatic, hearing grossly normal bilaterally, moist oral mucous membranes and oropharynx normal Eyes PERRL, EOMs intact bilaterally and conjunctivae normal Neck no lymphadenopathy and supple Lymph Lymphatic: no lymphadenopathy noted and no lymphedema noted Resp Resp Narrative: diminished breath sounds bibasally, no wheezes, few crackles. On 1L of oxygen by nasal canula Cardio regular rate, regular rhythm, S1 normal heart sound, S2 normal heart sound and no murmurs GI normal to inspection, nondistended, normoactive bowel sounds, soft to palpation, non-tender and non-distended GI Narrative: Obese. Extremity normal to inspection, full ROM, normal capillary refill, no clubbing, cyanosis or edema and no calf tenderness General Extremity: no tenderness to palpation of joints or extremities Skin Skin Narrative: Patient has no evidence of rash at this time. General Skin Exam: no breakdown Neuro oriented x3, CN's II-XII intact bilaterally, moves all extremities, no focal motor deficits, no sensory deficits noted and deep tendon reflexes 2+ bilaterally Sensorium / Orientation: awake, alert, oriented to person, oriented to place and oriented to time Speech: speech normal Motor Exam: strength 5/5 throughout and general weakness Psych thought process normal and cooperative Appearance: appropriate Assessment & Plan Assessment/Plan (1) RSV (respiratory syncytial virus infection): (2) Bilateral interstitial pneumonia: (3) Acute hypoxemic respiratory failure: PLAN: Plan #Acute hypoxic respiratory failure due to RSV infection with superimposed pneumonia * now down to 1L of oxygen * wbc still elevated, but has trended down to 16.8 * titrate oxygen to maintain sats >90% * breathing treatment with bronchodilators. * she had a walking pulse ox which showed that she desturated to 78% on room air, and was 89% on 2L of oxygen. * will keep patient one more day to further optimise her. * #Sepsis due to bilateral pneumonia: as above #RSV infection: as above #Hyperlipidemia: on statin and fenofibrate #History of DVT: currently not any blood thinners. #NOn alcoholic fatty liver disease: stable. #Depression with anxiety: on fluoxetine and seroquel DVT prophylaxis: lovenox Disposition; for likely dc tomorrow Charges/Coding Visit Charges Inpatient E&M: 50284 Subs Hosp L2
--- NOTE | 2023-03-03 15:57 | CASEMGMT ---
RN CM NOTE: Pt provided w/list of local PCP's in network w/her insurance that was prepared by process plannerKatarina. Pt was also provided w/script for glucometer and supplies. Questions answered. Pt made aware to ask for CM or assistant corporate secretary if she needs assistance w/getting an appt to get established w/a PCP. She denies having other discharge planning needs or concerns at this time. Delano HERRERA RN CM
[2023-03-03] MEDS: Azithromycin 500 MG in Dextrose 5%-Water (250mL Bag) 250 ML 250 MG IV (20:50)
[2023-03-03] MEDS: 0.9% Saline Lock 10 ML Syringe IV ×2 (20:50→20:56)
[2023-03-03] MEDS: Ondansetron 4 MG/2 ML Vial IV (20:56)
[2023-03-03] MEDS: Atorvastatin Calcium 40 MG Tablet PO (21:00)
[2023-03-03] MEDS: QUEtiapine 25 MG Tablet 50 MG PO (21:01)
[2023-03-03] MEDS: Ceftriaxone 1 GM/50 mL Premix Q24 IV (22:18)
[2023-03-04] VITALS (7 sets, daily range): BP systolic 102–136; BP diastolic 59–80; PULSE 70–87; RESP 18–21; TEMP 36.6; O2SAT 85–94; BMI 39.1
[2023-03-04] MEDS: Ipratropium/Albuterol Sulfate 3 ML AMPUL.NEB INHALATION ×2 (02:08→07:30)
[2023-03-04 03:42] LABS: Hematocrit 41.1 % (37-47); Hemoglobin 12.8 g/dL (12.0-15.0); Mean Corp Hgb Conc 31.1 g/dL (32-36); Mean Corpuscular Volume 93.2 fL (81-99); Mean Platelet Vol. 9.9 fl (6.2-12.0); POSITIVE COUNT YES; POSITIVE DIFFERENTIAL YES; POSITIVE MORPHOLOGY YES; Platelet Count 455 K/mm3 (150-450); RBC Distribution Width CV 13.9 % (11.6-14.6); RBC Distribution Width SD 47.1 fl (35.1-43.9); Red Blood Count 4.41 M/mm3 (4.2-5.4); White Blood Count 22.2 K/mm3 (4.4-11.0)
[2023-03-04 03:57] LABS: Anion Gap 6 (5-15); BUN 24 mg/dL (7-18); Calcium,Total 8.5 mg/dL (8.5-10.1); Chloride 110 mmol/L (98-107); EST Glomerular Filtration Rate 66 mL/min (>60); Est Glom Filt Rate - Afr Amer 80 mL/min (>60); Estimated Creatinine Clearance 73.45 ml/min; Glucose 92 mg/dL (74-106); Potassium 3.7 mmol/L (3.5-5.1); Sodium Level 140 mmol/L (136-145)
[2023-03-04 04:25] LABS: Differential Indicated MANUAL DIFF
[2023-03-04 04:35] LABS: Basophil 1 % (0-1); Lymphocyte 41 % (19-41); Metamyelocyte 7 % (0-1); Monocyte 1 % (0-10); Myelocyte 1 % (0-0); Neutrophil-Segmented 49 % (47-70); Total Cells Counted 100 (MANUAL DIFF)
[2023-03-04 04:36] LABS: Absolute Neutrophil Count 12.7 X10^3/uL (2.0-7.7); Neutrophil # 12.67 X10^3/uL (2.7-7.7)
[2023-03-04 04:37] LABS: Absolute Lymphocyte Count 9.11 X10^3/uL (0.83-4.51); Lymphocyte # 9.11 X10^3/ul (0.83-4.51)
[2023-03-04 04:38] LABS: Differential Comment MANUAL DIFF
[2023-03-04 04:39] LABS: Red Cell Morphology NORM C+C NORMAL (NORM C&C)
[2023-03-04 04:40] LABS: Platelet Estimate SLT INC (ADEQ)
[2023-03-04] MEDS: Enoxaparin 40 MG/0.4 ML Syringe SC (08:53)
[2023-03-04] MEDS: Famotidine 20 MG Tablet PO (08:53)
[2023-03-04] MEDS: predniSONE 20 MG Tablet 40 MG PO (08:54)
[2023-03-04] MEDS: Ferrous Sulfate 325 MG Tablet PO (08:54)
[2023-03-04] MEDS: Magnesium Chloride 64 MG Delay Rel.Tablet 128 MG PO (08:54)
[2023-03-04] MEDS: Zinc Sulfate 50 mg zinc (220 mg) ORAL capsule PO (08:54)
[2023-03-04] MEDS: Fluoxetine HCl 40 MG CAPSULE PO (08:55)
[2023-03-04] MEDS: Topiramate 50 MG Tablet PO (08:55)
[2023-03-04] MEDS: diazePAM 5 MG Tablet 2.5 MG PO (08:55)
[2023-03-04] MEDS: Fenofibrate 145 MG Tablet PO (08:55)
[2023-03-04] MEDS: Gabapentin 400 MG Capsule PO ×2 (10:13→13:08)
--- NOTE | 2023-03-04 13:34 | PCM.DC.SUM ---
Providers Date of Admission: 02/27/23 Date of Discharge: 03/04/23 Primary Care Physician: KIMBERLEY Olivo Consultations 02/27/23 02:34 Consult: [employer] / Pulmonary Medicine Routine Consulting Provider: Pulmonary Medicine thelma Madera Reason for Consult: Sepsis with multifocal bacterial pneumonia and RSV infection EMERGENT Consult: No MD Notified: Yes Date Notified: 02/27/23 Time Notified: 00:59 Method of Notification: Text Reason For Visit: SEPSIS, MULTIFOCAL PNEUMONIA, RSV & ACUTE HYPOXIC Diagnosis Discharge Diagnosis (1) RSV (respiratory syncytial virus infection): Status: Acute Code(s): B33.8 - Other specified viral diseases (2) Bilateral interstitial pneumonia: Status: Acute Code(s): J84.9 - Interstitial pulmonary disease, unspecified (3) Acute hypoxemic respiratory failure: Status: Acute Code(s): J96.01 - Acute respiratory failure with hypoxia Plan #Acute hypoxic respiratory failure due to RSV infection with superimposed pneumonia now down to 1L of oxygen wbc still elevated, but has trended down to 16.8 titrate oxygen to maintain sats >90% breathing treatment with bronchodilators. she had a walking pulse ox which showed that she desturated to 78% on room air, and was 89% on 2L of oxygen. will keep patient one more day to further optimise her. #Sepsis due to bilateral pneumonia: as above #RSV infection: as above #Hyperlipidemia: on statin and fenofibrate #History of DVT: currently not any blood thinners. #NOn alcoholic fatty liver disease: stable. #Depression with anxiety: on fluoxetine and seroquel DVT prophylaxis: lovenox Disposition; for likely dc tomorrow Medications at Discharge Home Medications albuterol sulfate 90 mcg/actuation aerosol inhaler (Ventolin HFA) 2 puff IH 4X/DAY PRN PRN Allergies 06/17/18 ferrous sulfate 325 mg (65 mg iron) tablet 325 mg PO DAILY Suppleme 12/03/18 metoprolol tartrate 25 mg tablet 12.5 mg PO BID Blood pressure 12/03/18 ondansetron HCl 8 mg tablet 8 mg PO Q8H PRN PRN Nausea 03/29/20 atorvastatin 40 mg tablet (Lipitor) 40 mg PO QHS Cholestrol 05/15/21 fenofibrate nanocrystallized 145 mg tablet (Tricor) 145 mg PO DAILY Cholestrol 05/15/21 gabapentin 100 mg capsule 100 mg PO DAILY PRN Neuropathy 05/15/21 gabapentin 400 mg capsule 400 mg PO 4X/DAY Neuropathy 05/15/21 quetiapine 50 mg tablet (Seroquel) 50 mg PO QHS Anxiety 05/15/21 riboflavin (vitamin B2) 400 mg tablet 400 mg PO DAILY Supplement 05/15/21 diazepam 5 mg tablet (Valium) 2.5 mg PO BID Anxiety 02/27/23 famotidine 20 mg tablet 20 mg PO DAILY Gerd 02/27/23 fluoxetine 40 mg capsule (Prozac) 40 mg PO DAILY Depression 02/27/23 topiramate 50 mg tablet 50 mg PO DAILY depression 02/27/23 levofloxacin 750 mg tablet 750 mg PO DAILY #5 tabs 03/04/23 prednisone 20 mg tablet 40 mg (2 x 20 mg) PO BREAKFAST #2 tabs 03/04/23 Hospital Course Operations None Procedures None Summary of Care Provided Minutes Spent on Discharge: 55 Hospital Course: Patient is a 37-year-old female with a past medical history as outlined was admitted through the ED on 02/27/2023 with a complaint of shortness of breath, cough and wheezing which have been going on for about 1 week. She had been diagnosed with RSV a week prior to admission and was being treated conservatively. His symptoms worsened and she was not improving as she had a cough productive of greenish to yellowish sputum. She was therefore brought into the ED. She was tachypneic in the ED and placed on supplemental oxygen. WBC was elevated at 19.5 and chest x-ray showed right lower lobe infiltrate. He was admitted initially to the ICU due to worsening respiratory distress. She required up to 10 L of oxygen. She had an extensive history of smoking. She was managed for sepsis due to bilateral pneumonia as well as acute hypoxic respiratory failure due to RSV infection and superimposed bilateral pneumonia. Sputum cultures were negative. She did test positive again for RSV. Oxygen requirements gradually improved and her breathing improved. She was eventually weaned down to 1 L of oxygen. She had walking pulse ox which showed that she required 2 L of oxygen. Patient was discharged home on 03/04/2023 on 2 L of oxygen. She was given a 5-day course of p.o. Levaquin 750 mg daily as well as p.o. prednisone to complete a 5-day course. She is to follow-up with her primary care doctor and to follow-up with pulmonology on outpatient basis. She was counseled to quit smoking. Patient seen and examined prior to discharge. She had no active events and felt much better. She was eager to be discharged. Review of systems otherwise negative. Labs and vitals reviewed. Home medication reviewed and reconciled. Physical Exam Const alert, oriented x3 and no apparent distress General Appearance: cooperative Orientation / Consciousness: lethargic HEENT normocephalic, head/scalp atraumatic, hearing grossly normal bilaterally, moist oral mucous membranes and oropharynx normal Eyes PERRL, EOMs intact bilaterally and conjunctivae normal Neck no lymphadenopathy and supple Lymph Lymphatic: no lymphadenopathy noted and no lymphedema noted Resp Resp Narrative: diminished breath sounds bibasally, no wheezes, few crackles. On 1L of oxygen by nasal canula Cardio regular rate, regular rhythm, S1 normal heart sound, S2 normal heart sound and no murmurs GI normal to inspection, nondistended, normoactive bowel sounds, soft to palpation, non-tender and non-distended GI Narrative: Obese. Extremity normal to inspection, full ROM, normal capillary refill, no clubbing, cyanosis or edema and no calf tenderness General Extremity: no tenderness to palpation of joints or extremities Skin General Skin Exam: no breakdown Neuro oriented x3, CN's II-XII intact bilaterally, moves all extremities, no focal motor deficits, no sensory deficits noted and deep tendon reflexes 2+ bilaterally Sensorium / Orientation: awake, alert, oriented to person, oriented to place and oriented to time Speech: speech normal Motor Exam: strength 5/5 throughout and general weakness Psych thought process normal and cooperative Appearance: appropriate Weight / BMI Weight Weight: 250 lb Body Mass Index (BMI) 39.1 ABG / Lab / Microbiology Data 03/04/23 03:25 03/04/23 03:25 Laboratory: Laboratory Results - last 24 hr 03/04/23 03:25: WBC 22.2 H, RBC 4.41, Hgb 12.8, Hct 41.1, MCV 93.2, MCH 29.0, MCHC 31.1 L, RDW Std Deviation 47.1 H, RDW Coeff of Kendra 13.9, Plt Count 455 H, MPV 9.9, Neut % (Auto) Not Reportable, Absolute Neuts (auto) 12.7 H, Absolute Lymphs (auto) 9.11 H, Total Counted 100, Neutrophils % (Manual) 49, Lymphocytes % (Manual) 41, Monocytes % (Manual) 1, Basophils % (Manual) 1, Metamyelocytes % 7 H, Myelocytes % 1 H, Differential Comment MANUAL DIFF, Diff Path Review May foll, Platelet Estimate SLT INC, RBC Morphology NORM C+C, Sodium 140, Potassium 3.7, Chloride 110 H, Carbon Dioxide 24.0, Anion Gap 6, BUN 24 H, Creatinine 1.00, Estim Creat Clear Calc 73.45, Est GFR (MDRD) Af Amer 80, Est GFR (MDRD) Non-Af 66, BUN/Creatinine Ratio 24.0 H, Glucose 92, Calcium 8.5 Microbiology: Microbiology 02/27/23 01:22 Blood Culture (Wb) - Right Forearm Blood Culture - Final No growth in 5 days. 02/27/23 01:12 Blood Culture (Wb) - Anticubital Left Blood Culture - Final No growth in 5 days. 02/27/23 15:24 Mucosa - Nasopharyngeal Coronavirus COVID-19 PCR - Final 02/27/23 02:55 Mucosa - Nasopharyngeal Respiratory Panel (PCR) - Final RSV B 02/27/23 03:25 Urine, Clean Catch Legionella Antigen - Final 02/27/23 03:25 Urine, Clean Catch Streptococcus pneumoniae Antigen (M - Final D/C Instructions Discharge Diet: Low fat / Low cholesterol Discharge Activity: Return to Normal Activity Weight Bearing Status: Weight bearing as tolerated Call your doctor if you observe: Fever of 101 or Higher, Shortness of breath, Dizziness, Swelling in the ankles and Chest pain Meaningful Use Info Meaningful Use Diagnoses (Choose all that apply): None applicable Discharge Plan Admission Admit Date/Time: 02/27/23 00:53 Primary Reason for Your Visit: acute hypoxic respiratory failure, pneumonia Attending Provider: Radha Rodríguez Primary Care Provider: Nallely Butler NP Consulting Providers: Asaf Johnston; Asaf Bernal Instructions Patient Instructions: RSV (Respiratory Syncytial Virus), ED Pneumonia (Adult) Additional Instructions / Restrictions: use oxygen 2L as needed for shortness of breath Discharge Orders/Prescriptions Prescriptions: New prednisone 20 mg Tablet 40 mg PO BREAKFAST Qty: 2 0RF levofloxacin 750 mg tablet 750 mg PO DAILY Qty: 5 0RF Continued fenofibrate nanocrystallized [Tricor] 145 mg tablet 145 mg PO DAILY atorvastatin [Lipitor] 40 mg tablet 40 mg PO QHS riboflavin (vitamin B2) 400 mg tablet 400 mg PO DAILY quetiapine [Seroquel] 50 mg tablet 50 mg PO QHS gabapentin 100 mg capsule 100 mg PO DAILY PRN (Reason: Neuropathy) gabapentin 400 mg capsule 400 mg PO 4X/DAY albuterol sulfate [Ventolin HFA] 18 GM HFA aerosol inhaler 2 puff IH 4X/DAY PRN PRN (Reason: Allergies) ferrous sulfate 325 MG tablet 325 mg PO DAILY metoprolol tartrate 25 MG tablet 12.5 mg PO BID ondansetron HCl 8 MG tablet 8 mg PO Q8H PRN PRN (Reason: Nausea) diazepam [Valium] 5 mg tablet 2.5 mg PO BID fluoxetine [Prozac] 40 mg capsule 40 mg PO DAILY Rx Instructions: administer in the morning and at noon/midday famotidine 20 mg tablet 20 mg PO DAILY Patient Comments: TAKE 1 TABLET BY MOUTH TWICE DAILY NEEDED topiramate 50 mg tablet 50 mg PO DAILY Patient Comments: Take 1 tablet by mouth once daily. Referrals / Follow Up: Nallely Butler NP, COLLATERAL CLERK-C [Primary Care Provider] - Within 2 Weeks Disposition Disposition (needs filled in before D/C Order can be placed): Home, Self Care Charges/Coding Visit Charges Inpatient E&M: 40904 Disch Hosp >30min
--- NOTE | 2023-03-04 14:41 | CASEMGMT ---
WHITNEY CHEATHAM NOTE: Pt being discharged and qualifies for O2 @ 2l/m w/exertion. Script obtained from Dr Rodríguez and sent to [facility] via [employer]. Call to Melania @ [facility] and she was made aware pt is discharging home today and will need O2 delivered to her room. Delano NOGUEIRAN RN CM
[2023-03-05 08:48] LABS: Pathologist Review Reviewed
== END 2023-03-04 16:30 | disposition home or self-care (01) | DRG 139 ==
LOC: ED 02-27 00:27 → ICU 02-27 01:13
PROVIDERS: Internal Medicine; Admitting Provider Internal Medicine; Emergency Provider Emergency Medicine; PCP Registered Nurse; Visit Provider Student in an Organized Health Care Education/Training Program
DX: J18.9 Pneumonia, unspecified organism (principal); J45.901 Unspecified asthma with (acute) exacerbation; B97.4 Respiratory syncytial virus as the cause of diseases classified elsewhere; E11.65 Type 2 diabetes mellitus with hyperglycemia; D50.9 Iron deficiency anemia, unspecified; B97.89 Other viral agents as the cause of diseases classified elsewhere; K76.0 Fatty (change of) liver, not elsewhere classified; I10 Essential (primary) hypertension; F32.A Depression, unspecified; G25.81 Restless legs syndrome; E66.9 Obesity, unspecified; E78.00 Pure hypercholesterolemia, unspecified; F17.210 Nicotine dependence, cigarettes, uncomplicated; F41.9 Anxiety disorder, unspecified; G47.33 Obstructive sleep apnea (adult) (pediatric); Z68.39 Body mass index [BMI] 39.0-39.9, adult; Z79.899 Other long term (current) drug therapy; Z86.718 Personal history of other venous thrombosis and embolism
CPT/HCPCS: 36600; 71045; 71046; 80048; 80053; 80061; 80076; 82803; 82962; 83605; 83735; 84100; 84443; 85025; 87040; 87449; 87633; 87635; 87641; 93005; 93306; 94640; 94660; 94668; 94762; 99285; 99406; Q9957; A4216; C8929; J0696; J2405

== ENCOUNTER 2023-05-20 09:22 | Emergency (ER) | payer MEDICAID, SELFPAY ==
[2023-05-20 09:23] VITALS: BP 131/89; PULSE 64; RESP 18; TEMP 36.2; O2SAT 98; BMI 38.8
--- NOTE | 2023-05-20 09:38 | EX.ED.UPPERE ---
HPI History of Present Illness HPI Narrative: Patient presents with left wrist pain that began after a fall today. Patient states she slipped on her steps and fell onto her left wrist. Patient also admits to some mild pain in her right thigh. Patient denies any head injury or loss of consciousness. Patient states her pain is mainly over the ulnar aspect of her left wrist and forearm. Patient states it is worse with pressure. Patient states it is better with rest. Patient describes her pain as burning. Patient denies any paresthesias or weakness. Patient denies any head injury or loss of consciousness. Chief Complaint: Upper Extremity Injury Informant: patient Occured/Mechanism Mechanism/Context: Yes fall Onset/Context/Timing Onset: Today Context: Sudden Onset Timing: Continuous Quality of Pain: Burning Location: Left wrist and forearm Worsened by: Pressure and palpation Relieved by: Rest Associated Symptoms Associated Symptoms: Negative for Parasthesia, Weakness or Loss of Funtion [facility] Medical History Acute bronchospasm Acute hypoxemic respiratory failure Bilateral interstitial pneumonia DVT (deep venous thrombosis) Fatty liver Gallbladder problem History of hypertension Leukocytosis Pure hypercholesterolemia RSV (respiratory syncytial virus infection) Sepsis without acute organ dysfunction Sinus tachycardia Type 2 diabetes mellitus Home Medications albuterol sulfate 90 mcg/actuation aerosol inhaler (Ventolin HFA) 2 puff IH 4X/DAY PRN PRN Allergies 06/17/18 [History Last Taken Unknown] ferrous sulfate 325 mg (65 mg iron) tablet 325 mg PO DAILY Suppleme 12/03/18 [History Last Taken Unknown] metoprolol tartrate 25 mg tablet 12.5 mg PO BID Blood pressure 12/03/18 [History Last Taken Unknown] ondansetron HCl 8 mg tablet 8 mg PO Q8H PRN PRN Nausea 03/29/20 [History Last Taken Unknown] atorvastatin 40 mg tablet (Lipitor) 40 mg PO QHS Cholestrol 05/15/21 [History Last Taken Unknown] fenofibrate nanocrystallized 145 mg tablet (Tricor) 145 mg PO DAILY Cholestrol 05/15/21 [History Last Taken Unknown] gabapentin 100 mg capsule 100 mg PO DAILY PRN Neuropathy 05/15/21 [History Last Taken Unknown] gabapentin 400 mg capsule 400 mg PO 4X/DAY Neuropathy 05/15/21 [History Last Taken Unknown] quetiapine 50 mg tablet (Seroquel) 50 mg PO QHS Anxiety 05/15/21 [History Last Taken Unknown] riboflavin (vitamin B2) 400 mg tablet 400 mg PO DAILY Supplement 05/15/21 [History Last Taken Unknown] diazepam 5 mg tablet (Valium) 2.5 mg PO BID Anxiety 02/27/23 [History Last Taken Unknown] famotidine 20 mg tablet 20 mg PO DAILY Gerd 02/27/23 [History Last Taken Unknown] fluoxetine 40 mg capsule (Prozac) 40 mg PO DAILY Depression 02/27/23 [History Last Taken Unknown] topiramate 50 mg tablet 50 mg PO DAILY depression 02/27/23 [History Last Taken Unknown] levofloxacin 750 mg tablet 750 mg PO DAILY #5 tabs 03/04/23 [Rx Last Taken Unknown] prednisone 20 mg tablet 40 mg (2 x 20 mg) PO BREAKFAST #2 tabs 03/04/23 [Rx Last Taken Unknown] Allergy/AdvReac Type Severity Reaction Status Date / Time Bleach (Sodium Hypochlorite) Allergy Hives Verified 05/17/21 07:19 heparin Allergy Other Verified 05/17/21 07:19 amoxicillin [Amoxicillin] AdvReac Rash Verified 05/17/21 07:19 citalopram hydrobromide AdvReac Mood Verified 05/17/21 07:19 [From Celexa] Family History Mother Diabetes Hypertension Asthma Sister Prediabetes Grandmother Kidney failure maternal Surgical History H/O dilation and curettage H/O tubal ligation History of partial hysterectomy Social History household members: significant other and children Smoking Status: Current every day smoker tobacco type: cigarettes substance use type: does not use ROS ROS ED Constitutional Constitutional ED: Denies chills or fever(s) Eyes Eyes: Denies blurry vision or change in vision ENT ENT ED: Denies rhinorrhea or sore throat Cardiovascular Cardiovascular: Denies chest pain or palpitations Respiratory/Chest Respiratory/Chest: Denies cough or dyspnea Gastrointestinal Gastrointestinal: Denies nausea or vomiting Genitourinary Genitourinary ED: Denies dysuria or hematuria Musculoskeletal Musculoskeletal: Denies back pain or neck pain Integumentary Denies abscess or rash Neurologic Neurologic: Denies headache(s) or weakness Allergic/Immunologic Allergic/Immunologic ED: Denies mouth swelling or urticaria EXAM Physical Exam Const Vital Signs: 05/20/23 09:23 Temperature 97.1 F L Temperature Source Temporal Pulse Rate 64 Respiratory Rate 18 Blood Pressure 131/89 H Blood Pressure Mean 103 Pulse Ox 98 Oxygen Delivery Method Room Air Positive well nourished, well developed and obese General Appearance ED: well developed and NAD Nutritional Appearance: obese HEENT Reports moist mucous membranes Neck full ROM and supple Extremity Extremity Narrative: There is tenderness over the ulnar aspect of the left wrist and forearm. There is mild tenderness of the elbow. Range of motion was limited in all motions of the left elbow and left wrist secondary to pain. Radial pulses are equal bilateral. Sensation was intact to light touch in the radial, median, and ulnar areas. Strength is 5/5 in the radial, median, and ulnar areas. Neuro oriented x3, CN's II-XII intact bilaterally, moves all extremities, no focal motor deficits and no sensory deficits noted Sensorium / Orientation: alert Motor Exam: strength 5/5 throughout Psych mental status grossly normal MDM MDM MDM Narrative Medical decision making narrative: Differential diagnosis includes contusion, fracture, and sprain. X-rays of the left forearm and left wrist will be obtained to assess for fracture. Radiography Diagnostic Testing: X-rays of the left wrist were obtained. There are 3 views. On my independent interpretation, there is no acute fracture or dislocation noted. Radiologist also interpreted the x-rays and agrees. X-rays of the left forearm were obtained. There are 2 views. On my independent interpretation, there is no acute fracture or dislocation noted. Radiologist also interpreted the x-rays and agrees. Treatment and Re-Evaluation Narrative: Patient was advised of her findings. Patient was given a Velcro wrist splint. Patient was instructed to ice and elevate her left wrist. Patient was instructed to follow-up with her primary care physician in 5 to 7 days. Patient understood and was agreeable with the plan. All questions were answered. Discharge Plan Triage Chief Complaint: Upper Extremity Injury ED Provider: Maynor Garcia Dx/Rx/DC Orders Clinical Impression: Fall, Contusion of left wrist, initial encounter Instructions: ED Contusion, Upper Extremity Prescriptions: No Action fenofibrate nanocrystallized [Tricor] 145 mg tablet 145 mg PO DAILY atorvastatin [Lipitor] 40 mg tablet 40 mg PO QHS riboflavin (vitamin B2) 400 mg tablet 400 mg PO DAILY quetiapine [Seroquel] 50 mg tablet 50 mg PO QHS gabapentin 100 mg capsule 100 mg PO DAILY PRN (Reason: Neuropathy) gabapentin 400 mg capsule 400 mg PO 4X/DAY albuterol sulfate [Ventolin HFA] 18 GM HFA aerosol inhaler 2 puff IH 4X/DAY PRN PRN (Reason: Allergies) ferrous sulfate 325 MG tablet 325 mg PO DAILY metoprolol tartrate 25 MG tablet 12.5 mg PO BID ondansetron HCl 8 MG tablet 8 mg PO Q8H PRN PRN (Reason: Nausea) diazepam [Valium] 5 mg tablet 2.5 mg PO BID fluoxetine [Prozac] 40 mg capsule 40 mg PO DAILY Rx Instructions: administer in the morning and at noon/midday famotidine 20 mg tablet 20 mg PO DAILY Patient Comments: TAKE 1 TABLET BY MOUTH TWICE DAILY NEEDED topiramate 50 mg tablet 50 mg PO DAILY Patient Comments: Take 1 tablet by mouth once daily. prednisone 20 mg Tablet 40 mg PO BREAKFAST Qty: 2 0RF levofloxacin 750 mg tablet 750 mg PO DAILY Qty: 5 0RF Primary Care Provider: Winston Flores Referrals: Nallely Butler NP, MACHINE STACKER-C [Non-Staff] - 5-7 Days Winston Flores, MACHINE STACKER-C [Primary Care Provider] - 5-7 Days Disposition Disposition: Home, Self Care
--- NOTE | 2023-05-20 09:39 | RAD_ITS ---
STUDY: X-RAY - LEFT WRIST REASON FOR EXAM: Female, 37 years old. Injury/Pain TECHNIQUE: 3 view(s) of the wrist were obtained. COMPARISON: None. FINDINGS: Normal visualized distal radius and ulna. Normal radiocarpal articulation. Normal distal radioulnar articulation. Normal carpal bones. Normal carpal articulations. Normal carpometacarpal articulation of the thumb. Normal second through fifth carpometacarpal articulations. Normal visualized metacarpal bones. The soft tissue structures are unremarkable. RAD/Wrist min 3 Views IMPRESSION: Normal x-ray examination of the wrist. Electronically Signed: Abilio Gutierrez MD at 11:05 EST ,
--- NOTE | 2023-05-20 09:50 | RAD_ITS ---
STUDY: X-RAY - LEFT RADIUS AND ULNA REASON FOR EXAM: Female, 37 years old. Injury/Pain TECHNIQUE: 2 view(s) of the forearm. COMPARISON: None. FINDINGS: There is no demonstrated soft tissue swelling. Normal visualized radius. Normal visualized ulna. RAD/Forearm 2 Views IMPRESSION: Normal x-ray examination of the radius and ulna. Electronically Signed: Abilio Gutierrez MD at 11:06 EST ,
[2023-05-20 11:32] VITALS: BP 123/67; PULSE 59; RESP 16; TEMP 36.6; O2SAT 98
== END 2023-05-20 11:36 | disposition home or self-care (01) ==
PROVIDERS: Emergency Provider Emergency Medicine; PCP Nurse Practitioner Family; Visit Provider Emergency Medicine
DX: S60.212A Contusion of left wrist, initial encounter (principal); W10.8XXA Fall (on) (from) other stairs and steps, initial encounter; E66.9 Obesity, unspecified; F17.210 Nicotine dependence, cigarettes, uncomplicated; Z68.38 Body mass index [BMI] 38.0-38.9, adult
CPT/HCPCS: 73090; 73110; 99283

== ENCOUNTER → 2024-01-20 | Outpatient (CLI) | payer MEDICAID, SELFPAY ==
[2024-01-20 13:16] LABS: Absolute Lymphocyte Count 5.95 X10^3/uL (0.83-4.51); Absolute Neutrophil Count 6.2 X10^3/uL (2.0-7.7); Basophil% 0.7 % (0-1); Eosinophil# 0.29 X10^3/uL; Eosinophils% 2.2 % (0-5); Hematocrit 46.5 % (37-47); Hemoglobin 15.2 g/dL (12.0-15.0); Lymphocyte # 5.95 X10^3/ul (0.83-4.51); Lymphocyte % 44.2 % (19-41); Mean Corp Hgb Conc 32.7 g/dL (32-36); Mean Corpuscular Hgb 29.5 pg (27.0-32.0); Mean Corpuscular Volume 90.3 fL (81-99); Mean Platelet Vol. 9.9 fl (6.2-12.0); Monocyte# 0.71 X10^3/uL; Monocyte% 5.3 % (0-10); NRBC Flagged by Analyzer 0 % (0-5); Neutrophil # 6.24 X10^3/uL (2.7-7.7); Neutrophil % 46.4 % (47-70); POSITIVE DIFFERENTIAL YES; POSITIVE MORPHOLOGY YES; Platelet Count 328 K/mm3 (150-450); RBC Distribution Width CV 13.3 % (11.6-14.6); RBC Distribution Width SD 44.4 fl (35.1-43.9); Red Blood Count 5.15 M/mm3 (4.2-5.4); White Blood Count 13.5 K/mm3 (4.4-11.0)
[2024-01-20 13:23] LABS: Differential Indicated SCAN CRITERIA MET
[2024-01-20 13:40] LABS: ALB/GLOB Ratio 0.9 RATIO (0.9-2.4); AST(SGOT) 31 U/L (15-37); Alanine Aminotransfer ALT/SGPT 42 U/L (13-56); Albumin, Serum 3.7 g/dL (3.2-5.0); Alkaline Phosphatase 59 U/L (45-117); Anion Gap 6 (5-15); BUN 17 mg/dL (7-18); BUN/Creat Ratio 13.6 RATIO (10-20); Calcium,Total 9.4 mg/dL (8.5-10.1); Chloride 108 mmol/L (98-107); Cholesterol 200 mg/dL (200); Creatinine, Serum 1.25 mg/dL (0.55-1.02); EST Glomerular Filtration Rate 50 mL/min (>60); Est Glom Filt Rate - Afr Amer 61 mL/min (>60); Globulin 3.9 g/dL (2.2-4.2); Glucose 96 mg/dL (74-106); High Density Lipoprotein 35 mg/dL; Potassium 4.3 mmol/L (3.5-5.1); Protein, Total 7.6 g/dL (6.4-8.2); Sodium Level 138 mmol/L (136-145); Triglycerides 272 mg/dL; Very Low Density Lipoprotein 54 mg/dL (5-40)
[2024-01-20 14:02] LABS: Differential Comment SCANNED
[2024-01-20 14:17] LABS: Vitamin B12 350 pg/mL (211-911)
== END | disposition home or self-care (01) ==
LOC: VSLAB 12:04
PROVIDERS: PCP Nurse Practitioner Family; Visit Provider Nurse Practitioner Family
DX: E11.9 Type 2 diabetes mellitus without complications (principal); E56.9 Vitamin deficiency, unspecified
CPT/HCPCS: 36415; 80053; 80061; 82043; 82306; 82607; 84443; 85025

== ENCOUNTER → 2024-04-21 | Outpatient (CLI) | payer MEDICAID, SELFPAY ==
[2024-04-21 12:44] LABS: Absolute Lymphocyte Count 4.97 X10^3/uL (0.83-4.51); Basophil# 0.07 X10^3/uL; Basophil% 0.5 % (0-1); Eosinophil# 0.26 X10^3/uL; Hematocrit 45.7 % (37-47); Hemoglobin 14.8 g/dL (12.0-15.0); Lymphocyte # 4.97 X10^3/ul (0.83-4.51); Lymphocyte % 37.9 % (19-41); Mean Corp Hgb Conc 32.4 g/dL (32-36); Mean Corpuscular Hgb 29.4 pg (27.0-32.0); Mean Corpuscular Volume 90.9 fL (81-99); Mean Platelet Vol. 10.4 fl (6.2-12.0); Monocyte# 0.59 X10^3/uL; Monocyte% 4.5 % (0-10); NRBC Flagged by Analyzer 0 % (0-5); Neutrophil # 6.99 X10^3/uL (2.7-7.7); Neutrophil % 53.3 % (47-70); Platelet Count 326 K/mm3 (150-450); RBC Distribution Width CV 13.9 % (11.6-14.6); RBC Distribution Width SD 46.4 fl (35.1-43.9); Red Blood Count 5.03 M/mm3 (4.2-5.4); White Blood Count 13.1 K/mm3 (4.4-11.0)
[2024-04-21 13:28] LABS: Microalbumin,Random Urine 9.2 mg/L (NO RANGE EST.)
[2024-04-21 13:34] LABS: AST(SGOT) 23 U/L (15-37); Alanine Aminotransfer ALT/SGPT 33 U/L (13-56); Albumin, Serum 3.5 g/dL (3.2-5.0); Alkaline Phosphatase 92 U/L (45-117); Anion Gap 8 (5-15); BUN 13 mg/dL (7-18); BUN/Creat Ratio 10.4 RATIO (10-20); Calcium,Total 9.3 mg/dL (8.5-10.1); Chloride 111 mmol/L (98-107); Cholesterol 194 mg/dL (200); Creatinine, Serum 1.25 mg/dL (0.55-1.02); EST Glomerular Filtration Rate 50 mL/min (>60); Est Glom Filt Rate - Afr Amer 61 mL/min (>60); Globulin 3.6 g/dL (2.2-4.2); Glucose 152 mg/dL (74-106); High Density Lipoprotein 35 mg/dL; Protein, Total 7.1 g/dL (6.4-8.2); Sodium Level 139 mmol/L (136-145); Triglycerides 414 mg/dL
== END | disposition home or self-care (01) ==
LOC: VSLAB 11:29
PROVIDERS: PCP Nurse Practitioner Family; Visit Provider Nurse Practitioner Family
DX: E11.9 Type 2 diabetes mellitus without complications (principal)
CPT/HCPCS: 36415; 80053; 80061; 82043; 84443; 85025

== ENCOUNTER → 2025-01-26 | Outpatient (CLI) | payer MEDICAID, SELFPAY ==
--- NOTE | 2025-01-26 15:24 | RAD_ITS ---
PROCEDURE: RAD/Chest PA and Lateral
== END | disposition home or self-care (01) ==
LOC: MTRAD 15:24
PROVIDERS: PCP Nurse Practitioner Family; Referring Provider Physician Assistant Surgical; Visit Provider Physician Assistant Surgical
DX: R05.9 Cough, unspecified (principal)
CPT/HCPCS: 71046

== ENCOUNTER 2025-01-29 17:59 | Emergency (ER) | payer MEDICAID, SELFPAY ==
[2025-01-29 18:00] VITALS: BP 139/98; PULSE 100; RESP 20; TEMP 36.8; O2SAT 100; BMI 41.2
--- NOTE | 2025-01-29 19:19 | EX.ED.DYSGE1 ---
HPI History of Present Illness Chief Complaint: Cold Sx Informant: patient Onset/Context/Timing Onset: Weeks (1.5) Context: Gradual Onset Timing: Continuous Quality: Congested Location: Chest Worsened by: Nothing Relieved by: Nothing Narrative Narrative: Patient presents with cough and upper respiratory congestion that has been getting worse over the past 1-1/2 weeks. Patient states it is gradually getting worse. Patient states she feels congested in her chest. Patient also admits to headache and sinus pressure. Patient admits to some shortness of breath. Patient admits to a cough with green sputum. Patient admits to sore throat and rhinorrhea. Patient denies any fevers or chills. Patient states nothing makes her symptoms better and nothing makes them worse. Patient states she was seen at urgent care. Patient states she had a COVID and influenza swab done at that time which was negative. Patient states she went to a different urgent care a week ago and was given doxycycline and steroids. Patient states this has not helped. [facility] Medical History RSV (respiratory syncytial virus infection) History of hypertension Sinus tachycardia Acute bronchospasm Bilateral interstitial pneumonia Sepsis without acute organ dysfunction Acute hypoxemic respiratory failure Leukocytosis Gallbladder problem DVT (deep venous thrombosis) Fatty liver Type 2 diabetes mellitus Pure hypercholesterolemia Home Medications Medication Instructions Recorded Last Taken Type albuterol sulfate 90 mcg/actuation 2 puff IH 4X/DAY PRN PRN Allergies 06/17/18 Unknown History aerosol inhaler (Ventolin HFA) ferrous sulfate 325 mg (65 mg 325 mg PO DAILY Suppleme 12/03/18 Unknown History iron) tablet metoprolol tartrate 25 mg tablet 12.5 mg PO BID Blood pressure 12/03/18 Unknown History ondansetron HCl 8 mg tablet 8 mg PO Q8H PRN PRN Nausea 03/29/20 Unknown History atorvastatin 40 mg tablet (Lipitor) 40 mg PO QHS Cholestrol 05/15/21 Unknown History fenofibrate nanocrystallized 145 145 mg PO DAILY Cholestrol 05/15/21 Unknown History mg tablet (Tricor) gabapentin 100 mg capsule 100 mg PO DAILY PRN Neuropathy 05/15/21 Unknown History gabapentin 400 mg capsule 400 mg PO 4X/DAY Neuropathy 05/15/21 Unknown History quetiapine 50 mg tablet (Seroquel) 50 mg PO QHS Anxiety 05/15/21 Unknown History riboflavin (vitamin B2) 400 mg 400 mg PO DAILY Supplement 05/15/21 Unknown History tablet diazepam 5 mg tablet (Valium) 2.5 mg PO BID Anxiety 02/27/23 Unknown History famotidine 20 mg tablet 20 mg PO DAILY Gerd 02/27/23 Unknown History fluoxetine 40 mg capsule (Prozac) 40 mg PO DAILY Depression 02/27/23 Unknown History topiramate 50 mg tablet 50 mg PO DAILY depression 02/27/23 Unknown History levofloxacin 750 mg tablet 750 mg PO DAILY #5 tabs 03/04/23 Unknown Rx prednisone 20 mg tablet 40 mg (2 x 20 mg) PO BREAKFAST #2 03/04/23 Unknown Rx tabs ipratropium 0.5 mg-albuterol 3 mg 3 ml inhalation Q6H 5 days #90 mL 01/26/25 Unknown Rx (2.5 mg base)/3 mL nebulization soln pseudoephedrine 60 mg-DM 15 1 tab PO Q4-6H PRN cold symptoms 01/26/25 Unknown Rx mg-guaifenesin 400 mg tablet #20 tabs (Capmist DM) Allergy/AdvReac Type Severity Reaction Status Date / Time Bleach (Sodium Hypochlorite) Allergy Hives Verified 01/29/25 18:03 heparin Allergy Other Verified 01/29/25 18:03 amoxicillin (Amoxicillin) AdvReac Rash Verified 01/29/25 18:03 citalopram hydrobromide AdvReac Mood Verified 01/29/25 18:03 (From Celexa) Family History Mother Diabetes Hypertension Asthma Sister Prediabetes Grandmother Kidney failure maternal Surgical History H/O dilation and curettage History of partial hysterectomy H/O tubal ligation Social History household members: significant other and children Smoking Status: Current every day smoker tobacco type: cigarettes substance use type: does not use ROS ROS ED Constitutional Constitutional ED: Denies chills or fever(s) Eyes Eyes: Denies blurry vision or change in vision ENT ENT ED: Reports rhinorrhea and sore throat Cardiovascular Cardiovascular: Denies chest pain or palpitations Respiratory/Chest Respiratory/Chest: Reports cough and dyspnea Gastrointestinal Gastrointestinal: Denies nausea or vomiting Genitourinary Genitourinary ED: Denies dysuria or hematuria Musculoskeletal Musculoskeletal: Reports back pain; Denies neck pain Integumentary Denies abscess or rash Neurologic Neurologic: Reports headache(s); Denies weakness Allergic/Immunologic Allergic/Immunologic ED: Denies mouth swelling or urticaria EXAM Physical Exam Const Vital Signs: 01/29/25 18:00 01/29/25 18:37 Temperature 98.2 F Temperature Source Oral Pulse Rate 100 Respiratory Rate 20 H Respiratory Effort Non-Labored Blood Pressure 139/98 H Blood Pressure Mean 111 Pulse Ox 100 Oxygen Delivery Method Room Air Positive well nourished and well developed Constitutional Narrative: BMI is 41.2. General Appearance ED: well developed and NAD HEENT Reports moist mucous membranes Neck supple and no JVD Resp normal respiratory effort Auscultation: rhonchi left lower and right lower Cardio regular rate and regular rhythm GI non-tender and non-distended Palpation: soft Neuro oriented x3, CN's II-XII intact bilaterally and no sensory deficits noted Sensorium / Orientation: alert Motor Exam: strength 5/5 throughout Psych mental status grossly normal MDM MDM MDM Narrative Medical decision making narrative: Differential diagnosis includes pneumonia, bronchitis, viral illness, electrolyte abnormality, and anxiety. Chest x-ray will be obtained to assess for pneumonia or bronchitis. CBC will be obtained to assess for leukocytosis and anemia. Basic metabolic profile will be obtained to assess for electrolyte abnormality and renal function. History & Record Review Additional record(s) reviewed:: Prior outpatient record, Prior ED visit and Prior labs Lab Data Attestation: I reviewed the patient's lab results. Lab results narrative: CBC was reviewed. There is a mild leukocytosis of 14.4. This is consistent with previous results. There is a lymphocytic shift. Hemoglobin was mildly elevated at 16.3 and hematocrit was 47.5. Platelets were normal. Basic metabolic profile was reviewed and was within normal limits. Radiography Chest X-Ray - ED: 2 View, Read by ED Physician, Read by Radiologist and No Acute Disease Diagnostic Testing: PA and lateral chest x-ray was obtained. There are 2 views. On my independent interpretation, lung aguiar are clear. There is normal cardiac silhouette. Bony thorax is normal. There is no acute process noted. Radiologist also interpreted the x-ray and agrees. Treatment and Re-Evaluation :: Patient was given IV fluids. Patient was given an albuterol aerosol. Patient was advised of her findings. Patient was advised that this is most likely a viral illness. Patient was advised that there is no antibiotics or antiviral medicine that we will make this resolve any sooner. Patient was able to ambulate to the bathroom without difficulty. Patient was instructed to drink plenty of fluids. Patient was instructed to take Tylenol or ibuprofen as needed for pain or fevers. Patient was instructed to follow-up with her primary care physician in 5 to 7 days. Patient understood and was agreeable with the plan. All questions were answered. Discharge Plan Triage Chief Complaint: Cold Sx ED Provider: Maynor Garcia Dx/Rx/DC Orders Clinical Impression: Viral upper respiratory tract infection, Tobacco use Instructions: ED URI, Viral, No Abx (Adult) Prescriptions: No Action fenofibrate nanocrystallized [Tricor] 145 mg tablet 145 mg PO DAILY atorvastatin [Lipitor] 40 mg tablet 40 mg PO QHS riboflavin (vitamin B2) 400 mg tablet 400 mg PO DAILY quetiapine [Seroquel] 50 mg tablet 50 mg PO QHS gabapentin 100 mg capsule 100 mg PO DAILY PRN (Reason: Neuropathy) gabapentin 400 mg capsule 400 mg PO 4X/DAY ipratropium-albuterol 0.5 mg-3 mg(2.5 mg base)/3 mL solution for nebulization 3 ml inhalation Q6H 5 Days Qty: 90 0RF Capmist DM 60-15-400 mg tablet 1 tab PO Q4-6H PRN (Reason: cold symptoms) Qty: 20 0RF Rx Instructions: do not exceed 4 doses per 24 hrs albuterol sulfate [Ventolin HFA] 18 GM HFA aerosol inhaler 2 puff IH 4X/DAY PRN PRN (Reason: Allergies) ferrous sulfate 325 MG tablet 325 mg PO DAILY metoprolol tartrate 25 MG tablet 12.5 mg PO BID ondansetron HCl 8 MG tablet 8 mg PO Q8H PRN PRN (Reason: Nausea) diazepam [Valium] 5 mg tablet 2.5 mg PO BID fluoxetine [Prozac] 40 mg capsule 40 mg PO DAILY Rx Instructions: administer in the morning and at noon/midday famotidine 20 mg tablet 20 mg PO DAILY Patient Comments: TAKE 1 TABLET BY MOUTH TWICE DAILY NEEDED topiramate 50 mg tablet 50 mg PO DAILY Patient Comments: Take 1 tablet by mouth once daily. prednisone 20 mg Tablet 40 mg PO BREAKFAST Qty: 2 0RF levofloxacin 750 mg tablet 750 mg PO DAILY Qty: 5 0RF Primary Care Provider: Winston Flores Referrals: Winston Flores, [facility] [Primary Care Provider, Family Practice] - 5-7 Days Print Language: Malay Disposition Disposition: Home, Self Care
--- NOTE | 2025-01-29 19:31 | RAD_ITS ---
PROCEDURE: CHEST PA AND LATERAL 01/29/2025 REASON FOR EXAM: COUGH TECHNIQUE: Procedure Code: RADCXR Modality: DX Procedure: CHEST PA AND LATERAL COMPARISON: 01/26/2025 FINDINGS: Lungs/Pleura: No appreciable focal consolidation, pneumothorax or pleural effusion. Heart/Mediastinum: Within normal limits. Bones/Soft tissues: No significant abnormality. RAD/Chest PA and Lateral IMPRESSION: No evidence of acute pulmonary disease. Reading Location: [id number]
[2025-01-29] MEDS: Albuterol 2.5 MG/3 ML VIAL.NEB. INHALATION (19:43)
[2025-01-29] MEDS: 0.9% Normal Saline (1000mL) 1,000 ML 1000 ML IV (19:43)
[2025-01-29 19:47] VITALS: PULSE 102; RESP 18
[2025-01-29 19:53] LABS: Hematocrit 47.5 % (37-47); Hemoglobin 16.3 g/dL (12.0-15.0); Immature Granulocytes Count 0.590 X10^3/uL (0.0-0.0); Mean Corp Hgb Conc 34.3 g/dL (32-36); Mean Corpuscular Volume 90.0 fL (81-99); Mean Platelet Vol. 9.5 fl (6.2-12.0); NRBC Flagged by Analyzer 0 % (0-5); POSITIVE DIFFERENTIAL YES; POSITIVE MORPHOLOGY YES; Platelet Count 329 K/mm3 (150-450); RBC Distribution Width CV 13.9 % (11.6-14.6); RBC Distribution Width SD 46.2 fl (35.1-43.9); Red Blood Count 5.28 M/mm3 (4.2-5.4); White Blood Count 14.4 K/mm3 (4.4-11.0)
[2025-01-29 20:00] VITALS: PULSE 77; RESP 18; O2SAT 99
[2025-01-29 20:05] LABS: Anion Gap 11 (5-15); BUN 23 mg/dL (4-19); BUN/Creat Ratio 22.1 RATIO (10-20); Calcium,Total 8.8 mg/dL (7.6-11.0); Carbon Dioxide 22.1 mmol/L (21.0-32.0); Chloride 106 mmol/L (98-108); Estimated Creatinine Clearance 97.88 ml/min (50-250); Glucose 94 mg/dL (70-99); Potassium 3.9 mmol/L (3.3-5.1)
[2025-01-29 20:08] LABS: Differential Indicated SCAN CRITERIA MET
[2025-01-29 20:09] LABS: Red Cell Morphology NORM C+C NORMAL (NORM C&C)
--- OUTSIDE RECORDS SUMMARY | 2025-01-29 20:14 | XMS RPT_ITS | CCD ---
Author Organization [facility] Care Team Providers Care Die Inspector Name Role Phone PHYSICIAN, NONE Primary Care Physician Unavailab Avtar Crystal MD Unavailable Jason Alcaraz MD Unavailable Reyes Mancilla MD Unavailable Haagen CATTLE SORTER.MARIE, Nallely Primary Care Provider Avtar Robertson MD Unavailable Jason Alcaraz MD Unavailable Reyes Mancilla MD Unavailable Haagen CATTLE SORTER.Nallely SALAZAR Primary Care Provider Avtar Robertson MD Unavailable Jason Alcaraz MD Unavailable Hacecilia CATTLE SORTER.Nallely SALAZAR Primary Care Provider Avtar Robertson MD Unavailable Jason Alcaraz MD Unavailable Reyes Mancilla MD Unavailable Haagen CATTLE SORTER.Nallely SALAZAR Primary Care Provider Carrie SAND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, SAND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-C Nallely Primary Care Provider Dr. Adithya Chan Emergency Provider [phone] Asaf Johnston Admit Provider Unavailabl e Dr. Asaf Johnston Other Provider Unavailabl e Dr. Lupillo Jovel Attending Provider Dr. Lupillo Jovel Other Provider Tato, Dr. Jennings Other Provider Dr. Katerina Ruiz Other Provider Unavailable Isabel, Dr. Noriega Other Provider Unavailab radha De SAND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, SAND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-C Jessy Other Provider Dr. Asaf Bernal Other Provider Unavailable Omar, Dr. Corrales Attending Provider Dr. Asaf Bernal Attending Provider Unavailable Dr. Dick Godwin Attending Provider Koram, Dr. Radha Reyes Other Provider Koram, Dr. Radha Reyes Attending Provider Koram, Dr. Radha Reyes Referring Provider [phone] Carrie CATTLE SORTER.MARIE, Nallely Primary Care Provider [facility], DR ESTEPHANIA BARLOW Primary Care Physic marisol Unavailable BISHOP WYMAN, DR PINTO Attending Unavailab radha MIRELES DO, DR ESTEPHANIA BARLOW Primary Care Harika wood Robertson MD, Avtar Montgomery Primary Care Provider Granados HAMMER SETTER, Ana Primary Care Provider Kieran WYMAN, Jason Unavailable CLUTTER, ANA Referring Unavailable GRANADOS, ANA Primary Care Unavailable GRANADOS, ANA Primary Care Unavailable GRANADOS, ANA Primary Care Unavailable JONAS, LELA Attending Unavailable JONAS, LELA Referring Unavailable GRANADOS, ANA Primary Care Unavailable MARY, MOSHE Attending Unavailable JONAS, LELA Referring Unavailable GRANADOS, ANA Primary Care Unavailable MARY, MOSHE Referring Unavailable GRANADOS, ANA Primary Care Unavailable MOSHE YOU Attending Unavailable MARY, MOSHE Referring Unavailable GRANADOS, ANA Primary Care Unavailable GRANADOS, ANA Primary Care Unavailable CLUTTER, ANA Attending Unavailable Granados VSC, Ana Primary Care Unavailable Granados VSC, Ana Referring Unavailable Juan Meng Attending Unavailable Granados VSC, Ana Primary Care Unavailable Granados VSC, Ana Attending Unavailable Granados VSC, Ana Primary Care Unavailable Juan Meng Attending Unavailable Juan Meng Referring Unavailable Allergies Allergy Classification Reported Allergen(s) Allergy Type Date of Onset Reaction(s) Facility heparin (1 source) heparin Drug Allergy 05-17-20 19 Other: See Comments [facility] Work Phone: Hypochlorite (1 source) Hypochlorite Drug Allergy 07-18-[address] [facility] Penicillins (antibiotic) (1 source) Amoxicillin Drug Allergy 05-20-19 14 [facility] Serotonin Reuptake Inhibitors (SSRIs) (1 source) Citalopram Drug Allergy 04-14-19 23 Mental Status Change [facility] Sulfamethoxazole / Trimethoprim (1 source) Sulfamethoxazole / Trimethoprim Drug Allergy 07-06-19 21 GI Upset [facility] (20 sources) Amoxicillin; Translations: [AMOXICILLIN] Drug Allergy 05-20-19 14 [facility] (20 sources) heparin; Translations: [HEPARIN] Drug Allergy 08-07-19 19 Other: See Comments [facility] Work Phone: (20 sources) Hypochlorite; Translations: [BLEACH (SODIUM HYPOCHLORITE)] Drug Allergy 07-18-[address] [facility] (20 sources) Sulfamethoxazole / Trimethoprim; Translations: [SULFAMETHOXAZOLE-TR IMETHOPRIM] Drug Allergy 07-06-19 21 Other: See Comments, GI [facility] Work Phone: (20 sources) Citalopram; Translations: [CITALOPRAM] Drug Allergy 04-14-19 23 Mental Status Change [facility] (4 sources) Citalopram; Translations: [citalopram hydrobromide] Drug Allergy 05-17-19 22 Mood [facility] (1 source) Amoxicillin Drug Allergy 01-27-20 25 [facility] (1 source) heparin Drug Allergy 01-27-20 25 [facility] (1 source) Bleach (Sodium Hypochlorite) Drug allergy (disorder) 01-27-20 25 [facility] Medications Current Medications Medication Drug Class(es) Dates Sig (Normalized) Sig (Original) acetaminophen 325 mg / HYDROcodone bitartrate 5 mg oral tablet (3 sources) Opioid Agonist Start: 01-04-2014 End: 05-22-2021 take 1 tablet by mouth every six hours [place] 325- 5 mg oral tablet Dose = 1 tab(s), Oral, q6h, # 20 tab(s), 0 Refill(s) Start Date: 01/04/14 Status: Ordered [id number] 200 actuat albuterol 0.09 mg/actuat metered dose inhaler (20 sources) beta2-Adrenergic Agonist Start: 07-08-2022 take 2 puff(s) by inhalation every four hours as needed for wheezing albuterol HFA (PROVENTIL HFA, VENTOLIN HFA) 90 mcg/actuation inhaler Inhale 2 Puffs as instructed every 4 hours as needed for wheezing/shortnes s of breath. 18 g 1 07/08/2022 Active Start: 04-08-2021 End: 04-21-2022 take 2 puff(s) by inhalation every four hours as needed for wheezing albuterol HFA (PROVENTIL HFA, VENTOLIN HFA) 90 mcg/actuation inhaler Inhale 2 Puffs as instructed every 4 hours as needed for wheezing/shortness of breath. 18 g 1 04/21/2022 Active Start: 07-11-2019 End: 07-05-2020 take 2 puff(s) by inhalation every four hours as needed for wheezing albuterol HFA (PROVENTIL HFA, VENTOLIN HFA) 90 mcg/actuation inhaler Inhale 2 Puffs as instructed every 4 hours as needed for Wheezing/Shortness of Breath. 1 Inhaler 5 07/11/2019 07/05/2020 Discontinued Start: 06-17-2018 take 1 puff(s) by in halation four times daily as needed Albuterol Sulfate (Ventolin Hfa) 18 GM HFA aerosol inhaler Active 2 PUFF IH 4 TIMES DAILY NEEDED June 16, 2018 11:00pm Comment on above: Inhale 2 Puffs as in structed every 4 hours as needed for wheezing/shortness of breath. atorvastatin 40 mg oral tablet (20 sources) HMG-CoA Reductase Inhibitor Start: 2020 End: 2023 take 1 tablet by mouth once daily at bedtime for hyperlipidemia atorvastatin (LIPITOR) 40 mg tablet Indications: Hyperlipidemia, mixed Take 1 tablet by mouth daily at bedtime. For cholesterol. 90 tablet 3 03/25/2022 Active Start: 12-03-2018 End: 05-15-2021 take 1 tablet by mouth once daily at bedtime for hyperlipidemia atorvastatin (LIPITOR) 20 mg tablet Indications: Hyperlipidemia, mixed Take 1 tablet by mouth daily at bedtime. For cholesterol. 30 tablet 5 10/21/2019 04/03/2020 Discontinued Comment on above: Take 1 tablet by hernandez th daily at bedtime. For cholesterol. busPIRone hydrochloride 7.5 mg oral tablet (18 sources) Start: End: take 1 tablet by mouth three times daily busPIRone (BUSPAR) 7.5 mg tablet Take 1 tablet by mouth three times a day. 90 tablet 0 08/10/2023 09/09/2023 Active Start: 05-15-2022 End: 06-14-2022 take 1 tablet by mouth once daily at bedtime, then take 0.5 tablet by mouth twice daily busPIRone (BUSPAR) 15 mg tablet Take 1 tablet by mouth daily at bedtime AND 0.5 tablets twice daily. 60 tablet 2 05/15/2022 06/14/2022 Active Start: 03-20-2022 End: 04-19-2022 take 1 tablet by mouth three times daily busPIRone (BUSPAR) 15 mg tablet Take 1 tablet by mouth three times daily. 90 tablet 1 03/20/2022 04/19/2022 Active Start: 12-25-2019 End: 03-21-2020 take 1 tablet by mouth twice daily busPIRone (BUSPAR) 10 mg tablet Indications: Anxiety with depression Take 1 tablet by mouth twice daily. 60 tablet 2 12/25/2019 03/21/2020 Discontinued Start: 12-03-2018 End: 05-15-2021 take 7.5 mg by mouth twice daily Buspirone Discontinue d 7.5 MG PO TWICE A DAY December 02, 2018 11:00pm May 15, 2021 3:57pm Comment on above: Take 1 tablet by hernandez th three times daily. Take 1 tablet by hernandez th daily at bedtime AND 0.5 tablets twice daily. cefdinir 300 mg oral capsule (10 sources) Cephalosporin Antibacterial Start: 06-06-2023 End: 06-13-2023 take 1 capsule by mouth twice daily cefdinir (OMNICEF) 300 mg capsule Take 1 capsule by mouth two times a day for 7 days. 14 capsule 0 06/06/2023 06/13/2023 Active Start: 04-14-2022 End: 04-24-2022 take 1 capsule by mouth twice daily cefdinir (OMNICEF) 300 mg capsule Indications: Acute otitis media, right Take 1 capsule by mouth twice daily for 10 days. 20 capsule 0 04/14/2022 04/24/2022 Active Comment on above: Take 1 capsule by mo [facility] twice daily for 10 days. Take 1 capsule by mo [facility] two times a day for 7 days. cetirizine hydrochloride 10 mg oral tablet (20 sources) Histamine-1 Receptor Antagonist Start: 2 End: 3 take 1 tablet by mouth once daily cetirizine (ZYRTEC) 10 mg tablet Take 1 tablet by mouth once daily. 30 tablet 11 05/27/2022 Active Start: 11-30-2021 take 1 tablet by hernandez once daily cetirizine (ZYRTEC) 10 mg tablet Indications: Acute effusion of left ear Take 1 tablet by mouth once daily. 30 tablet 0 11/30/2021 Active Start: 10-21-2019 End: 05-20-2020 take 1 tablet by mouth once daily cetirizine (ZYRTEC) 10 mg tablet Take 1 tablet by mouth once daily. 30 tablet 5 10/21/2019 05/20/2020 Discontinued Start: 12-03-2018 End: 05-15-2021 take 10 mg by mouth once daily Cetirizine Discontinued 10 MG PO DAILY December 02, 2018 11:00pm May 15, 2021 3:57pm Comment on above: Take 1 tablet by hernandez once daily. CPAP (20 sources) Start: 09-26-19 21 CPAP CPAP 7 cm H2O. Formal mask refitting & work with RT, chin strap, head gear, humidity, heated tubing(GWENDOLYN), lifetime supplies. G47.33 ELLEN 1 Device 11 09/25/2020 Active Comment on above: CPAP 7 cm H2O. Forma l mask refitting & work with RT, chin strap, head gear, humidity, heated tubing(GWENDOLYN), lifetime supplies. G47.33 ELLEN dapagliflozin 10 mg oral tablet (2 sources) Sodium-Glucose Cotransporter 2 Inhibitor Start: 01-22-20 24 take 1 tablet by mouth once FARXIGA 10 mg tablet Take 1 tablet by mouth every afternoon. 01/22/2024 Active diazePAM 5 mg oral tablet (16 sources) Benzodiazepine Start: 04-08-19 End: 05-28-19 take 0.5 tablet by mouth twice daily as needed for anxiety diazePAM (VALIUM) 5 mg tablet Indications: Panic disorder with agoraphobia Take 0.5 tablets by mouth two times a day as needed for muscle spasm or anxiety for up to 30 days. 30 tablet 0 04/28/2023 05/28/2023 Active Start: 03-04-2023 End: 04-03-2023 take 0.5 tablet by mouth twice daily as needed for anxiety diazePAM (VALIUM) 5 mg tablet Indications: Panic disorder with agoraphobia Take 0.5 tablets by mouth two times a day as needed for muscle spasm or anxiety for up to 30 days. 30 tablet 0 03/04/2023 04/03/2023 Active Start: 02-27-2023 take 2.5 mg by mouth twice daily Diazepam (Valium) 5 mg tablet Active 2.5 MG PO TWICE A DAY February 27, 2023 12:00am Start: 12-24-2022 End: 02-20-2023 take 0.5 tablet by mouth twice daily as needed for anxiety diazePAM (VALIUM) 5 mg tablet Indications: Panic disorder with agoraphobia Take 0.5 tablets by mouth two times a day as needed for muscle spasm or anxiety for up to 30 days. 30 tablet 0 01/21/2023 02/20/2023 Active Start: 09-12-2022 End: 11-12-2022 take 0.5 tablet by mouth twice daily as needed for anxiety diazePAM (VALIUM) 5 mg tablet Indications: Panic disorder with agoraphobia Take 0.5 tablets by mouth twice daily as needed for muscle spasm or anxiety for up to 30 days. 30 tablet 0 10/13/2022 11/12/2022 Active Start: 07-14-2022 End: 08-13-2022 take 0.5 tablet by mouth twice daily as needed for anxiety diazePAM (VALIUM) 5 mg tablet Indications: Panic disorder with agoraphobia Take 0.5 tablets by mouth twice daily as needed for muscle spasm or anxiety for up to 30 days. 30 tablet 0 07/14/2022 08/13/2022 Active Comment on above: Take 0.5 tablets by mouth twice daily as needed for muscle spasm or anxiety for up to 30 days. Take 0.5 tablets by mouth two times a day as needed for muscle spasm or anxiety for up to 30 days. doxycycline hyclate 100 mg oral tablet (5 sources) Tetracycline-clas s Drug Start: End: take 1 tablet by mouth twice daily doxycycline (VIBRA-TABS) 100 mg tablet Indications: Sinobronchitis , Acute otitis media, bilateral Take 1 tablet by mouth two times a day for 7 days. 14 tablet 02/24/2024 03/02/2024 Active Start: 10-04-2022 End: 10-11-2022 take 1 tablet by mouth twice daily doxycycline monohydrate 100 mg tablet Indications: Lower resp. tract infection Take 1 tablet by mouth twice daily for 7 days. 14 tablet 0 10/04/2022 10/11/2022 Active Start: 07-08-2022 End: 07-13-2022 take 1 tablet by mouth twice daily doxycycline monohydrate 100 mg tablet Take 1 tablet by mouth twice daily for 5 days. 10 tablet 0 07/08/2022 07/13/2022 Active Start: 06-04-2022 End: 06-11-2022 take 1 tablet by mouth twice daily doxycycline monohydrate 100 mg tablet Indications: Bacterial sinusitis Take 1 tablet by mouth twice daily for 7 days. 14 tablet 0 06/04/2022 06/11/2022 Active Comment on above: Take 1 tablet by hernandez th twice daily for 7 days. Take 1 tablet by hernandez th twice daily for 5 days. 0.5 ml dulaglutide 3 mg/ml auto-injector (20 sources) GLP-1 Receptor Agonist Start: 10-28-2022 dulaglutide (TRULICITY) 1.5 mg/0.5 mL pen injector Indications: Obesity, Class III, BMI 40-49.9 (morbid obesity) ([facility]) , Type 2 diabetes mellitus without complication, without long-term current use of insulin ([facility]) Inject 1.5 mg subcutaneously one time a week. Inject once per week. Discard Pen After 2 mL 5 10/28/2022 Active Start: 04-14-2022 End: 10-28-2022 inject 0.75 mg by subcutaneous injection every week dulaglutide (TRULICITY) 0.75 mg/0.5 mL pen injector Indications: Type 2 diabetes mellitus without complication, without long-term current use of insulin ([facility]) Inject 0.75 mg subcutaneously one time a week. Inject dose once per week. Discard Pen After 4 Each 1 08/26/2022 10/28/2022 Discontinued Comment on above: Inject 0.75 mg subcu taneously one time a week. Inject dose once per week. Discard Pen After Inject 1.5 mg subcut aneously one time a week. Inject once per week. Discard Pen After famotidine 20 mg oral tablet (20 sources) Histamine-2 Receptor Antagonist Start: take 20 mg by mouth once daily Famotidine Active 20 MG PO DAILY February 27, 2023 12:00am Start: 08-06-2022 take 1 tablet by hernandez th twice daily as needed famotidine (PEPCID) 20 mg tablet Indications: Heartburn Take 1 tablet by mouth twice daily as needed. 60 tablet 3 08/06/2022 Active Start: 12-03-2018 End: 05-15-2021 take 1 tablet by mouth once daily famotidine (PEPCID) 20 mg tablet Take 1 tablet by mouth once daily. 90 tablet 1 06/29/2019 01/20/2020 Discontinued Comment on above: Take 1 tablet by hernandez th once daily. Take 1 tablet by hernandez th twice daily as needed. fenofibrate 145 mg oral tablet (20 sources) Peroxisome Proliferator Receptor alpha Agonist Start: 03-11-20 End: 03-25-19 take 1 tablet by mouth once daily fenofibrate nanocrystallized (TRICOR) 145 mg tablet Indications: Hyperlipidemia, mixed Take 1 tablet by mouth once daily. 90 tablet 3 03/25/2022 Active Comment on above: Take 1 tablet by hernandez th once daily. ferrous sulfate 325 mg oral tablet (20 sources) Start: 08-09-19 take 1 tablet by mouth twice daily ferrous sulfate 325 mg (65 mg iron) tablet Take 1 tablet by mouth twice daily. 180 tablet 08/08/2022 Active Start: 07-17-2022 take 1 tablet by hernandez th twice daily ferrous sulfate 325 mg (65 mg iron) tablet Take 1 tablet by mouth twice daily. 180 tablet 0 07/17/2022 Active Start: 12-16-2021 take 1 tablet by hernandez th twice daily ferrous sulfate 325 mg (65 mg iron) tablet Take 1 tablet by mouth twice daily. 180 tablet 0 12/16/2021 Active Start: 03-26-2021 take 1 tablet by hernandez twice daily ferrous sulfate 325 mg (65 mg iron) tablet Take 1 tablet by mouth twice daily. 180 tablet 0 03/26/2021 Active Start: 12-19-2019 End: 03-20-2020 take 1 tablet by mouth twice daily ferrous sulfate 325 mg (65 mg iron) tablet Take 1 tablet by mouth twice daily. 180 tablet 12/19/2019 03/20/2020 Discontinued Start: 12-03-2018 take 325 mg by mouth once mk y Ferrous Sulfate Active 325 MG PO DAILY December 02, 2018 11:00pm Comment on above: Take 1 tablet by hernandez twice daily. FLUoxetine 20 mg oral capsule (20 sources) Serotonin Reuptake Inhibitor Start: 06-08-2023 End: 11-08-2023 take 1 capsule by mouth once daily FLUoxetine (PROZAC) 20 mg capsule Take 1 capsule by mouth once daily. Take with 40 mg dose. 90 capsule 08/10/2023 Active Start: 12-24-2022 End: 11-08-2023 take 1 capsule by mouth once daily FLUoxetine (PROZAC) 40 mg capsule Take 1 capsule by mouth once daily. Take with 20 mg dose. 90 capsule 08/10/2023 Active Start: 09-15-2022 End: 12-14-2022 take 1 capsule by mouth once daily FLUoxetine (PROZAC) 20 mg capsule Take 1 capsule by mouth once daily. 30 capsule 2 09/15/2022 Active Start: 07-14-2022 End: 09-11-2022 take 1 capsule by mouth once daily FLUoxetine (PROZAC) 20 mg capsule Take 1 capsule by mouth once daily. 30 capsule 1 07/14/2022 09/11/2022 Discontinued Comment on above: Take 1 capsule by [facility] once daily. Take 1 capsule by [facility] once daily. Take with 20 mg dose. Take 1 capsule by mo [facility] once daily. Take with 40 mg dose. fluticasone propionate 0.05 mg/actuat metered dose nasal spray (20 sources) Corticosteroid Start: take 2 spray(s) by mouth once daily fluticasone (FLONASE) 50 mcg/actuation nasal spray Indications: Acute otitis media, bilateral Use 2 Sprays in each nostril once daily. Rinse mouth after use. 1 Each 1 02/24/2024 Active Start: 10-24-2021 End: 01-30-2022 take 1 spray(s) nasal route once daily fluticasone (FLONASE) 50 mcg/actuation nasal spray Indications: Viral sinusitis Use 1 [place] in each nostril once daily. 1 Each 5 10/24/2021 01/30/2022 Discontinued Start: 06-25-2020 End: 06-21-2021 take 1 spray(s) nasal route once daily fluticasone (FLONASE) 50 mcg/actuation nasal spray Indications: Viral sinusitis Use 1 [place] in each nostril once daily. 1 Each 5 06/21/2021 Active Start: 07-29-2019 End: 09-07-2020 take 2 spray(s) by mouth once daily fluticasone (FLONASE) 50 mcg/actuation nasal spray Indications: Viral sinusitis Use 2 Sprays in each nostril once daily. Rinse mouth after use. 1 Bottle 1 07/29/2019 09/07/2020 Discontinued (Other) Start: 06-17-2018 End: 05-15-2021 Fluticasone Propionate Disco ntinued 1 SPRAY NASAL DAILY June 16, 2018 11:00pm May 15, 2021 3:58pm Comment on above: Use 1 [place] in each nostril once daily. Use 1 [place] in each nostril daily at bedtime. Use 2 Sprays in each nostril once daily. Rinse mouth after use. gabapentin 400 mg oral capsule (20 sources) Anti-epileptic Agent Start: 10-13-2022 End: 10-25-2023 gabapentin (NEURONTIN) 400 mg capsule Take one capsule in the morning, and 3 capsules in the evening. 120 capsule 2 08/05/2023 Active Start: 05-15-2021 take 100 mg by mouth once mk y Gabapentin Active 100 MG PO DAILY May 15, 2021 12:00am Start: 05-09-2021 End: 04-23-2022 take 2 capsules by mouth once daily gabapentin (NEURONTIN) 100 mg capsule Take 2 capsules by mouth once daily for 90 days. This prescription is in additional to the 400 mg dosing prescription. 60 capsule 2 01/23/2022 03/20/2022 Discontinued (Course of therapy completed) Start: 04-09-2021 End: 10-05-2022 gabapentin (NEURONTIN) 400 m g capsule Take one capsule in the morning, and 3 capsules in the evening. 120 capsule 2 07/17/2022 10/05/2022 Active Comment on above: Take one capsule in the morning, and 3 capsules in the evening. Do not start before April 09, 2021. Take 2 capsules by m outh once daily for 90 days. This prescription is in additional to the 400 mg dosing prescription. Take one capsule in the morning, and 3 capsules in the evening. lactobacillus rhamnosus gg [id number] unt oral capsule (20 sources) Start: 06-05-19 take 1 capsule by mouth once daily lactobacillus rhamnosus (CULTURELLE) 10 billion cell capsule Take 1 capsule by mouth once daily. 30 capsule 06/04/2022 Active Comment on above: Take 1 capsule by mo [facility] once daily. levoFLOXacin 750 mg oral tablet (2 sources) Quinolone Antimicrobial Start: 03-04-20 take 750 mg by mouth once daily Levofloxacin Active 750 MG PO DAILY March 04, 2023 12:00am LORazepam 0.5 mg oral tablet (20 sources) Benzodiazepine Start: 06-08-19 End: 09-09-19 take 1 tablet by mouth twice daily as needed LORazepam (ATIVAN) 0.5 mg Indications: Panic disorder with agoraphobia Take 1 tablet by mouth two times a day as needed for up to 30 days. 30 tablet 1 08/10/2023 09/09/2023 Active Start: 05-15-2021 End: 02-27-2023 take 1 tablet by mouth once daily as needed LORazepam (ATIVAN) 0.5 mg Indications: Panic disorder with agoraphobia Take 1 tablet by mouth once daily as needed for up to 30 days. 30 tablet 0 11/26/2021 12/26/2021 Active Comment on above: Take 1 tablet by hernandez th once daily as needed for up to 30 days. Take 1 tablet by hernandez th two times a day as needed for up to 30 days. Take 1 tablet by hernandez th two times a day as needed for up to 30 days. Do not start before July 07, 2023. magnesium oxide 400 mg oral tablet (20 sources) Start: 04-03-2022 take 1 tablet by mouth once daily magnesium oxide (MAG-OX) 400 mg (241.3 mg magnesium) tablet Indications: Migraine without aura, intractable, without status migrainosus Take 1 tablet by mouth once daily. 30 tablet 5 04/03/2022 Active Start: 09-24-2021 take 1 tablet by hernandez th once daily magnesium oxide (MAG-OX) 400 mg (241.3 mg magnesium) tablet Indications: Migraine without aura, intractable, without status migrainosus Take 1 tablet by mouth once daily. 30 tablet 5 09/24/2021 Active Start: 07-15-2021 End: 08-20-2021 take 1 tablet by mouth once daily magnesium oxide (MAG-OX) 400 mg (241.3 mg magnesium) tablet Indications: Migraine without aura, intractable, without status migrainosus Take 1 tablet by mouth once daily. 30 tablet 1 08/20/2021 Active Start: 05-15-2021 End: 02-27-2023 take 400 mg by mouth once daily Magnesium Oxide Discon tinued 400 MG PO DAILY May 15, 2021 12:00am February 27, 2023 5:16pm Start: 05-13-2021 End: 07-13-2021 take 1 tablet by mouth once daily magnesium oxide (MAG-OX) 400 mg (241.3 mg magnesium) tablet Indications: Migraine without aura, intractable, without status migrainosus Take 1 tablet by mouth once daily. 30 tablet 1 05/13/2021 07/13/2021 Discontinued Comment on above: Take 1 tablet by hernandez th once daily. metoprolol tartrate 25 mg oral tablet (20 sources) beta-Adrenergic Vandana Start: 10-13-2022 End: 2022 take 0.5 tablet by mouth every twelve hours metoprolol tartrate, short acting, (LOPRESSOR) 25 mg tablet Indications: Tachycardia Take 0.5 tablets by mouth every 12 hours. 30 tablet 5 10/13/2022 Active Start: 04-03-2022 End: 06-03-2022 take 0.5 tablet by mouth every twelve hours metoprolol tartrate, short acting, (LOPRESSOR) 25 mg tablet Indications: Tachycardia Take 0.5 tablets by mouth every 12 hours. 30 tablet 5 04/03/2022 Active Start: 05-29-2021 End: 11-24-2021 take 0.5 tablet by mouth every twelve hours metoprolol tartrate, short acting, (LOPRESSOR) 25 mg tablet Indications: Tachycardia Take 0.5 tablets by mouth every 12 hours. 30 tablet 5 09/24/2021 Active Start: 11-21-2019 End: 01-20-2020 take 0.5 tablet by mouth every twelve hours metoprolol tartrate, short acting, (LOPRESSOR) 25 mg tablet Indications: Tachycardia Take 0.5 tablets by mouth every 12 hours. 30 tablet 1 11/21/2019 01/20/2020 Discontinued Start: 12-03-2018 take 12.5 mg by mout h twice daily Metoprolol Tartrate Active 12.5 MG PO TWICE A DAY December 02, 2018 11:00pm Comment on above: Take 0.5 tablets by mouth every 12 hours. metroNIDAZOLE 500 mg oral tablet (3 sources) Nitroimidazole Antimicrobial Start: 05-01-19 End: 05-08-19 take 1 tablet by mouth twice daily metroNIDAZOLE (FLAGYL) 500 mg tablet Take 1 tablet by mouth twice daily for 7 days. 14 tablet 0 05/01/2022 05/08/2022 Active Start: 12-01-2021 End: 12-09-2021 take 1 tablet by mouth twice daily metroNIDAZOLE (FLAGYL) 500 mg tablet Take 1 tablet by mouth twice daily for 7 days. 14 tablet 0 12/02/2021 12/09/2021 Active Comment on above: Take 1 tablet by hernandez th twice daily for 7 days. miconazole nitrate 40 mg/ml vaginal cream (4 sources) Azole Antifungal Start: 05-22-2023 End: 05-25-2023 Miconazole Nitrate (MONISTAT 3) 200 mg/5 gram (4 %) crea Use 1 Applicator vaginally once daily for 3 days. 25 g 0 05/22/2023 05/25/2023 Active Start: 01-23-2013 End: 04-21-2013 Miconazole Nitrate (Monistat 3) 15 GM Crm.Pf.Alejandro Discontinued 15 GM VG DAILY January 22, 2013 11:00pm April 21, 2013 12:24pm Comment on above: Use 1 Applicator vag inally once daily for 3 days. Naprosyn (2 sources) Nonsteroidal Anti-inflammatory Drug Start: 01-05-20 Naprosyn Oral, BID Start Date: 01/04/14 Status: Ordered phentermine hydrochloride 37.5 mg oral tablet (20 sources) Sympathomimetic Amine Anorectic Start: 10-29-19 End: 12-28-19 take 1 tablet by mouth once daily Phentermine HCl (ADIPEX-P) 37.5 mg tablet Indications: Obesity, Class III, BMI 40-49.9 (morbid obesity) ([facility]) Take 1 tablet by mouth once daily for 60 days. 30 tablet 1 10/28/2022 12/27/2022 Active Start: 01-02-2022 End: 03-05-2022 take 1 tablet by mouth once daily Phentermine HCl (ADIPEX-P) 37.5 mg tablet Indications: Obesity, Class III, BMI 40-49.9 (morbid obesity) (HCC) Take 1 tablet by mouth once daily for 30 days. 30 tablet 0 02/03/2022 03/05/2022 Active Comment on above: Take 1 tablet by hernandez th once daily for 30 days. Take 1 tablet by hernandez th once daily for 60 days. predniSONE 20 mg oral tablet (20 sources) Start: 02-24-2024 End: 02-29-2024 take 2 tablets by mouth once daily predniSONE (DELTASONE) 20 mg tablet Indications: Sinobronchitis Take 2 tablets by mouth once daily for 5 days. 10 tablet 02/24/2024 02/29/2024 Active Start: 03-04-2023 take 40 mg by mouth at [facility] Prednisone Active 40 MG PO WITH BREAKFAST March 04, 2023 12:00am Start: 10-04-2022 End: 10-09-2022 take 2 tablets by mouth once daily predniSONE (DELTASONE) 20 mg tablet Indications: Lower resp. tract infection Take 2 tablets by mouth once daily for 5 days. 10 tablet 0 10/04/2022 10/09/2022 Active Start: 07-08-2022 End: 07-13-2022 take 2 tablets by mouth once daily predniSONE (DELTASONE) 20 mg tablet Take 2 tablets by mouth once daily for 5 days. 10 tablet 0 07/08/2022 07/13/2022 Active Start: 11-28-2021 End: 02-25-2022 predniSONE (DELTASONE) 10 mg tablet Take 4 tabs daily for 3 days, then 2 tabs daily for 3 days, then 1 tab daily for 3 days with food. 21 tablet 0 11/28/2021 02/25/2022 Discontinued (Course of therapy completed) Comment on above: Take 4 tabs daily fo r 3 days, then 2 tabs daily for 3 days, then 1 tab daily for 3 days with food. Take 2 tablets by mo uth once daily for 5 days. QUEtiapine 50 mg oral tablet (20 sources) Atypical Antipsychotic Start: 2 End: 4 take 1 tablet by mouth once daily at bedtime QUEtiapine (SEROQUEL) 50 mg tablet Take 1 tablet by mouth daily at bedtime. 90 tablet 08/10/2023 Active Comment on above: Take 1 tablet by hernandez th daily at bedtime. riboflavin 400 mg oral tablet (20 sources) Start: 3 take 1 tablet by mouth once daily riboflavin, vitamin B2, 400 mg tab Indications: Migraine without aura, intractable, without status migrainosus Take 1 tablet by mouth once daily. 30 tablet 5 10/13/2022 Active Start: 04-08-2021 End: 03-21-2022 take 1 tablet by mouth once daily riboflavin, vitamin B2, 400 mg tab Indications: Migraine without aura, intractable, without status migrainosus Take 1 tablet by mouth once daily. 30 tablet 5 10/13/2022 Active Comment on above: Take 1 tablet by hernandez th once daily. topiramate 50 mg oral tablet (20 sources) Start: 10-13-2022 End: 11-08-2023 take 1 tablet by mouth once daily topiramate (TOPAMAX) 50 mg tablet Take 1 tablet by mouth once daily. 90 tablet 08/10/2023 Active Start: 08-08-2022 take 1 tablet by hernandez th once daily topiramate (TOPAMAX) 50 mg tablet Indications: Obesity, Class III, BMI 40-49.9 (morbid obesity) (HCC) , Dysthymic disorder , Anxiety Take 1 tablet by mouth once daily. 30 tablet 1 08/08/2022 Active Start: 02-03-2022 End: 06-09-2022 take 1 tablet by mouth once daily topiramate (TOPAMAX) 50 mg tablet Indications: Obesity, Class III, BMI 40-49.9 (morbid obesity) (HCC) , Dysthymic disorder , Anxiety Take 1 tablet by mouth once daily. 30 tablet 1 06/09/2022 Active Comment on above: Take 1 tablet by hernandez th once daily. traZODone hydrochloride 100 mg oral tablet (20 sources) Serotonin Reuptake Inhibitor Start: End: take 1 tablet by mouth once daily at bedtime traZODone (DESYREL) 100 mg tablet Take 1 tablet by mouth daily at bedtime. 30 tablet 1 12/24/2022 02/22/2023 Active Start: 09-15-2022 End: 11-12-2022 take 1 tablet by mouth once daily at bedtime traZODone (DESYREL) 100 mg tablet Take 1 tablet by mouth daily at bedtime. 30 tablet 1 10/13/2022 11/12/2022 Active Start: 07-14-2022 End: 08-13-2022 take 1 tablet by mouth once daily at bedtime traZODone (DESYREL) 100 mg tablet Take 1 tablet by mouth daily at bedtime. 30 tablet 1 07/14/2022 08/13/2022 Active Start: 04-21-2022 End: 06-14-2022 take 1 tablet by mouth once daily at bedtime traZODone (DESYREL) 100 mg tablet Take 1 tablet by mouth daily at bedtime. 30 tablet 1 05/15/2022 06/14/2022 Active Start: 03-20-2022 End: 04-19-2022 take 1 tablet by mouth once daily at bedtime traZODone (DESYREL) 100 mg tablet Take 1 tablet by mouth daily at bedtime. 30 tablet 1 03/20/2022 04/19/2022 Active Start: 12-16-2021 End: 01-15-2022 take 1 tablet by mouth once daily at bedtime traZODone (DESYREL) 50 mg tablet Take 1 tablet by mouth daily at bedtime. 30 tablet 1 12/16/2021 01/15/2022 Active Start: 07-29-2021 End: 08-28-2021 take 1 tablet by mouth once daily at bedtime traZODone (DESYREL) 100 mg tablet Take 1 tablet by mouth daily at bedtime. 30 tablet 0 07/29/2021 08/28/2021 Active Start: 06-03-2021 End: 07-03-2021 take 1 tablet by mouth once daily at bedtime traZODone (DESYREL) 100 mg tablet Take 1 tablet by mouth daily at bedtime. 30 tablet 0 06/03/2021 07/03/2021 Active Comment on above: Take 1 tablet by hernandez th daily at bedtime. Vitamin B Complex oral tablet (2 sources) Start: 01-04-2014 take 1 tablet by mouth once daily Vitamin B Complex oral tablet Dose = 1 tab(s), Oral, Daily Start Date: 01/04/14 Status: Ordered Completed/Discontinued Medications Medication Drug Class(es) Dates Sig (Normalized) Sig (Original) acetaminophen 325 mg / oxyCODONE hydrochloride 5 mg oral tablet (3 sources) Opioid Agonist Start: 07-15-2018 End: 07-22-2018 take 1 tablet by mouth every eight hours Oxycodone-Acetamin ophen Discontinued 1 - 2 TABLET PO EVERY 8 HOURS 28 July 14, 2018 11:00pm July 21, 2018 11:08pm albuterol 0.833 mg/ml / ipratropium bromide 0.167 mg/ml inhalation solution (1 source) Anticholinergic, beta2-Adrenergic Agonist Start: 02-10-2019 End: 05-01-2020 take 3 mL by inhalation three times daily ipratropium-albute rol (DUONEB) 0.5 mg-3 mg(2.5 mg base)/3 mL nebu Inhale 3 mL as instructed three times daily. 30 Vial 1 02/10/2019 05/01/2020 Discontinued ALPRAZolam 0.5 mg oral tablet (3 sources) Benzodiazepine Start: 06-10-2020 End: 05-15-2021 take 0.5 mg by mouth at bedtime Alprazolam Discontinued 0.5 MG PO AT BEDTIME June 09, 2020 11:00pm May 15, 2021 3:57pm amitriptyline hydrochloride 25 mg oral tablet (4 sources) Tricyclic Antidepressant Start: 12-19-2019 End: 02-08-2020 take 1 tablet by mouth once daily at bedtime amitriptyline (ELAVIL) 25 mg tablet Take 1 tablet by mouth daily at bedtime. 30 tablet 1 12/19/2019 02/08/2020 Discontinued (Cost of medication) Start: 08-27-2019 End: 05-15-2021 take 10 mg by mouth at bedtime Amitriptyline Discontin ued 10 MG PO AT BEDTIME August 26, 2019 11:00pm May 15, 2021 3:57pm benzonatate 100 mg oral capsule (8 sources) Non-narcotic Antitussive Start: 10-04-2022 End: 03-04-2023 take 2 capsules by mouth three times daily as needed benzonatate (TESSALON PERLE) 100 mg capsule Indications: Lower resp. tract infection Take 2 capsules by mouth three times daily as needed. 30 capsule 0 10/04/2022 03/04/2023 Discontinued (Course of therapy completed) Comment on above: Take 2 capsules by m outh three times daily as needed. brompheniramine maleate 0.4 mg/ml / dextromethorphan hydrobromide 2 mg/ml / pseudoephedrine hydrochloride 6 mg/ml oral solution (20 sources) alpha-Adrenergic Agonist, Uncompetitive I-bdudlh-D-asparta te Receptor Antagonist, Sigma-1 Agonist Start: 07-09-2022 End: 08-10-2023 take 5 mL by mouth four times daily as needed Brompheniramine-P seudoeph-DM (BROMFED DM) 2-30-10 mg/5 mL syrup Indications: Viral upper respiratory tract infection Take 5 mL by mouth four times daily as needed. 118 mL 0 07/09/2022 08/10/2023 Discontinued (Course of therapy completed) Start: 04-14-2022 take 5 mL by mouth f our times daily as needed Thxebfyavcfisav-Yglamtqwq-ZC (BROMFED DM ) 2-30-10 mg/5 mL syrup Indications: Viral upper respiratory tract infection Take 5 mL by mouth four times daily as needed. 118 mL 0 04/14/2022 Active Comment on above: Take 5 mL by mouth f our times daily as needed. cephalexin 500 mg oral capsule (3 sources) Cephalosporin Antibacterial Start: End: take 1 capsule by mouth four times daily Cephalexin (Keflex) 500 MG capsule Discontinued 500 MG PO 4 TIMES DAILY January 06, 2013 11:00pm January 23, 2013 1:21pm cholecalciferol 1.25 mg oral capsule (20 sources) Vitamin D Start: End: take 1250 ug by mouth every week Cholecalciferol (Vitamin D3) Discontinued 1250 MCG PO EVERY WEEK May 15, 2021 12:00am February 27, 2023 5:15pm Start: 05-10-2021 take 1 capsule by [facility] every week cholecalciferol, Vitamin D3, (VITAMIN D3) 1,250 mcg (50,000 unit) cap capsule Take 1 capsule by mouth one time a week. 8 capsule 0 05/10/2021 Active Start: 01-07-2013 End: 04-21-2013 take 1 tablet by mouth once daily Cholecalciferol (Vitamin D3) (Vitamin D3) 2,000 UNIT tablet Discontinued 2000 UNIT PO DAILY January 06, 2013 11:00pm April 21, 2013 12:24pm Comment on above: Take 1 capsule by [facility] one time a week. ciprofloxacin 250 mg oral tablet (3 sources) Quinolone Antimicrobial Start: End: take 250 mg by mouth twice daily Ciprofloxacin Hcl Discontinued 250 MG PO TWICE A DAY January 22, 2013 11:00pm April 21, 2013 12:24pm clindamycin 150 mg oral capsule (2 sources) Lincosamide Antibacterial Start: End: clindamycin 150 mg oral capsule Dose : 150 mg = 1 cap(s), Oral, q6h, # 28 cap(s), 0 Refill(s) Start Date: 01/04/14 Stop Date: 01/11/14 Status: Ordered clonazePAM 0.5 mg oral tablet (20 sources) Benzodiazepine Start: End: take 1 tablet by mouth once daily as needed clonazePAM (KLONOPIN) 0.5 mg tablet Indications: Panic disorder with agoraphobia Take 1 tablet by mouth once daily as needed for up to 30 days. 30 tablet 0 07/08/2022 07/14/2022 Discontinued (Lack of Efficacy) Comment on above: Take 1 tablet by [facility] once daily as needed for up to 30 days. Compression Knee Highs (1 source) Start: End: 021 Compression Knee Highs KNEE HIGH COMPRESSION STOCKINGS 30-40 MM. DX: EDEMA 1 Each 10/25/2018 05/01/2020 Discontinued cyclobenzaprine hydrochloride 10 mg oral tablet (20 sources) Muscle Relaxant Start: 022 End: 023 take 1 tablet by mouth every eight hours as needed cyclobenzaprine (FLEXERIL) 10 mg tablet Take 1 tablet by mouth three times daily as needed for muscle spasm. 18 tablet 0 11/28/2021 03/04/2023 Discontinued (Course of therapy completed) Start: 01-18-2019 End: 05-01-2020 take 1 tablet by mouth every twelve hours as needed cyclobenzaprine (FLEXERIL) 10 mg tablet Take 1 tablet by mouth twice daily as needed for Muscle Spasm. 30 tablet 01/18/2019 05/01/2020 Discontinued Comment on above: Take 1 tablet by hernandez th three times daily as needed for muscle spasm. 12 hr dextromethorphan hydrobromide 30 mg / guaiFENesin 600 mg extended release oral tablet (20 sources) Uncompetitive G-cwzthh-A-aspartate Receptor Antagonist, Sigma-1 Agonist Start: 07-09-19 23 End: 08-10-19 24 take 1 tablet by mouth twice daily dextromethorphan-gu aiFENesin (MUCINEX DM) 30-600 mg per tablet Take 1 tablet by mouth twice daily. 20 tablet 0 07/08/2022 08/10/2023 Discontinued (Course of therapy completed) Comment on above: Take 1 tablet by hernandez th twice daily. dextromethorphan hydrobromide 3 mg/ml / promethazine hydrochloride 1.25 mg/ml oral solution (18 sources) Phenothiazine, Uncompetitive R-ezuvmf-R-aspartate Receptor Antagonist, Sigma-1 Agonist Start: 10-11-19 End: 08-10-19 24 take 5 mL by mouth every six hours as needed Promethazine-DM (PHENERGAN-DM) 6.25-15 mg/5 mL syrup Take 5 mL by mouth four times daily as needed. 240 mL 0 10/10/2022 08/10/2023 Discontinued (Course of therapy completed) Comment on above: Take 5 mL by mouth f our times daily as needed. escitalopram 20 mg oral tablet (19 sources) Serotonin Reuptake Inhibitor Start: 12-17-19 End: 01-03-20 take 1 tablet by mouth once daily escitalopram oxalate (LEXAPRO) 20 mg tablet Take 1 tablet by mouth once daily. 30 tablet 1 12/16/2021 01/02/2022 Discontinued Start: 08-30-2021 End: 12-01-2021 take 1 tablet by mouth once daily escitalopram oxalate (LEXAPRO) 20 mg tablet Take 1 tablet by mouth once daily. 30 tablet 1 11/01/2021 Active Start: 06-03-2021 End: 08-30-2021 take 1 tablet by mouth once daily escitalopram oxalate (LEXAPRO) 10 mg tablet Take 1 tablet by mouth once daily. 30 tablet 1 06/03/2021 08/30/2021 Discontinued Comment on above: Take 1 tablet by hernandez th once daily. hydroCHLOROthiazide 50 mg oral tablet (4 sources) Thiazide Diuretic Start: End: take 1 tablet by mouth once daily hydroCHLOROthiazide (HYDRODIURIL, ESIDRIX) 50 mg tablet Indications: Hypertension, essential Take 1 tablet by mouth once daily. 30 tablet 3 11/10/2019 03/20/2020 Discontinued Start: 12-03-2018 End: 05-15-2021 take 50 mg by mouth once daily Hydrochlorothiazide Discontinued 50 MG PO DAILY December 02, 2018 11:00pm May 15, 2021 3:58pm hydrOXYzine pamoate 25 mg oral capsule (1 source) Antihistamine Start: 09-12-2019 End: 05-01-2020 take 1 capsule by mouth every twelve hours as needed hydrOXYzine pamoate (VISTARIL) 25 mg capsule Take 1 capsule by mouth twice daily as needed for Anxiety. 30 capsule 1 09/12/2019 05/01/2020 Discontinued ketotifen 0.25 mg/ml ophthalmic solution (1 source) Histamine-1 Receptor Inhibitor Start: 10-25-2018 End: 05-01-2020 ketotifen fumarate (ZADITOR) 0.025 % (0.035 %) ophthalmic solution Indications: Allergic conjunctivitis of both eyes Use 1 Drop in both eyes twice daily. 1 Bottle 1 10/25/2018 05/01/2020 Discontinued lactobacillus acidophilus 460 mg oral capsule (1 source) Start: 03-30-2019 End: 05-01-2020 take 1 capsule by mouth once daily Lactobacillus acidophilus (FLORAJEN) 460 mg (20 billion cell) cap Take 1 capsule by mouth once daily. 30 capsule 03/30/2019 05/01/2020 Discontinued loratadine 10 mg oral tablet (20 sources) Start: 07-15-2021 End: 11-30-2021 take 1 tablet by mouth once daily loratadine (CLARITIN) 10 mg tablet Indications: Environmental allergies Take 1 tablet by mouth once daily. 30 tablet 11 07/15/2021 11/30/2021 Discontinued (Changing Therapy/Dosage Form) Start: 07-04-2020 End: 07-13-2021 take 1 tablet by mouth once daily loratadine (CLARITIN) 10 mg tablet Indications: Environmental allergies Take 1 tablet by mouth once daily. 30 tablet 11 07/04/2020 07/13/2021 Discontinued Comment on above: Take 1 tablet by hernandez once daily. metFORMIN hydrochloride 500 mg oral tablet (3 sources) Biguanide Start: End: take 500 mg by mouth twice daily Metformin Discontinued 500 MG PO TWICE A DAY March 29, 2020 12:00am May 15, 2021 3:58pm Nebulizer (1 source) Start: End: Nebulizer 1 Device every 4 hours as needed (cough, wheezing). NEBULIZER FOR HOME USE. DX: ARDS, pneumonia, wheezing 1 Device 09/20/2018 05/01/2020 Discontinued nitrofurantoin, macrocrystals 25 mg / nitrofurantoin, monohydrate 75 mg oral capsule (1 source) Nitrofuran Antibacterial Start: End: take 1 capsule by mouth twice daily at mealtime nitrofurantoin monohydrate and macrocrystal (MACROBID) 100 mg capsule Take 1 capsule by mouth twice daily with meals for 7 days. 14 capsule 12/26/2019 01/02/2020 ondansetron 4 mg disintegrating oral tablet (20 sources) Serotonin-3 Receptor Antagonist Start: 023 End: take 1 tablet by mouth every eight hours as needed ondansetron orally disintegrating (ZOFRAN ODT) 4 mg disintegrating tablet Take 1 tablet by mouth every 8 hours as needed. 20 tablet 0 12/15/2022 08/10/2023 Discontinued (Course of therapy completed) Start: 07-17-2022 take 1 tablet by hernandez th every eight hours as needed ondansetron orally disintegrating (ZOFRAN ODT) 4 mg disintegrating tablet Take 1 tablet by mouth every 8 hours as needed. 20 tablet 0 07/17/2022 Active Start: 10-21-2021 End: 04-21-2022 take 1 tablet by mouth every eight hours as needed ondansetron orally disintegrating (ZOFRAN ODT) 4 mg disintegrating tablet Take 1 tablet by mouth every 8 hours as needed. 20 tablet 0 04/21/2022 Active Start: 07-15-2021 End: 09-10-2021 take 1 tablet by mouth every eight hours as needed ondansetron orally disintegrating (ZOFRAN ODT) 4 mg disintegrating tablet Take 1 tablet by mouth every 8 hours as needed. 20 tablet 0 09/10/2021 Active Start: 05-06-2021 End: 07-13-2021 take 1 tablet by mouth every eight hours as needed ondansetron orally disintegrating (ZOFRAN ODT) 4 mg disintegrating tablet Take 1 tablet by mouth every 8 hours as needed. 20 tablet 0 05/06/2021 07/13/2021 Discontinued Start: 08-15-2019 End: 05-01-2020 take 1 tablet by mouth every eight hours as needed for nausea ondansetron orally disintegrating (ZOFRAN ODT) 8 mg disintegrating tablet Indications: Urinary frequency Take 1 tablet by mouth every 8 hours as needed for Nausea/Vomiting. 30 tablet 08/15/2019 05/01/2020 Discontinued Start: 02-10-2019 End: 05-01-2020 take 8 mg by mouth every eight hours as needed Ondansetron Hcl Active 8 MG PO EVERY 8 HOURS NEEDED March 29, 2020 12:00am Start: 01-07-2013 End: 04-21-2013 take 4 mg by mouth every eight hours as needed Ondansetron Discontinued 4 MG PO EVERY 8 HOURS NEEDED January 07, 2013 10:05am April 21, 2013 12:24pm Comment on above: Take 1 tablet by hernandez th every 8 hours as needed. phenazopyridine hydrochloride 200 mg oral tablet (10 sources) Start: 11-29-19 take 1 tablet by mouth every eight hours as needed phenazopyridine (PYRIDIUM) 200 mg tablet Take 1 tablet by mouth three times daily as needed. 6 tablet 0 11/28/2021 Active Start: 08-15-2019 End: 03-14-2020 take 1 tablet by mouth three times daily as needed for pain phenazopyridine (PYRIDIUM) 200 mg tablet Indications: Urinary frequency Take 1 tablet by mouth three times daily as needed for Pain. 30 tablet 08/15/2019 03/14/2020 Discontinued Start: 01-07-2013 End: 04-21-2013 take 200 mg by mouth three times daily Phenazopyridine Discontinued 200 MG PO THREE TIMES A DAY January 06, 2013 11:00pm April 21, 2013 12:24pm Comment on above: Take 1 tablet by hernandez three times daily as needed. pregabalin 75 mg oral capsule (4 sources) Start: 09-29-2019 End: 05-15-2021 take 75 mg by mouth twice daily Pregabalin Discontinued 75 MG PO TWICE A DAY January 10, 2020 11:00pm May 15, 2021 3:59pm sertraline 50 mg oral tablet (5 sources) Serotonin Reuptake Inhibitor Start: 04-19-2020 End: 05-15-2021 take 50 mg by mouth once daily Sertraline Discontinued 50 MG PO DAILY April 19, 2020 12:00am May 15, 2021 3:59pm Start: 01-04-2014 Zoloft 100 mg oral tablet Dose : 100 mg = 1 tab(s), Oral, Daily, 0 Refill(s) Start Date: 01/04/14 Status: Ordered Problems Active Problems Problem Classification Problem Date Documented Date Episodic/Chronic Anxiety disorders (20 sources) Anxiety; Translations: [Anxiety disorder, unspecified] Onset: 04-12-2012 08-23-2018 Chronic Cardiac dysrhythmias (7 sources) Tachycardia; Translations: [Tachycardia, unspecified] Episodic Chronic kidney disease (20 sources) Chronic kidney disease stage 3A ; Translations: [Stage 3a chronic kidney disease (HCC)] Onset: 04-14-2022 Chronic Complications of surgical procedures or medical care (3 sources) Drug therapy finding; Translations: [Unspecified adverse effect of drug or medicament, initial encounter] 03-03-2020 Episodic Diabetes mellitus without complication (20 sources) Type 2 diabetes mellitus without complication; Translations: [Type 2 diabetes mellitus without complications] Onset: 03-13-2020 03-13-2020 Chronic Diabetes mellitus without complication (2 sources) Hyperglycemia; Translations: [Hyperglycemia, unspecified] Episodic Diseases of mouth; excluding dental (3 sources) Xerostomia; Translations: [Dry mouth, unspecified] 03-03-2020 Episodic Diseases of white blood cells (20 sources) Leukocytosis; Translations: [Elevated white blood cell count, unspecified] Onset: 07-26-2020 06-03-2021 Chronic Disorders of lipid metabolism (11 sources) Hyperlipidemia; Translations: [Mixed hyperlipidemia] 06-19-2013 Chronic E Codes: Adverse effects of medical drugs (3 sources) Adverse reaction to drug; Translations: [Adverse effect of unspecified drugs, medicaments and biological substances, initial encounter] 07-16-2018 Episodic E Codes: Fall (1 source) Fall; Translations: [Unspecified fall, initial encounter] 05-20-2023 Episodic Essential hypertension (20 sources) Benign hypertension; Translations: [Hypertensive disorder] 06-19-2013 Chronic Fracture of lower limb (1 source) Closed fracture of foot; Translations: [Unspecified fracture of unspecified foot, initial encounter for closed fracture] Onset: 05-19-2021 Episodic Headache; including migraine (3 sources) Refractory migraine without aura; Translations: [Migraine without aura, intractable, without status migrainosus] Chronic Immunizations and screening for infectious disease (2 sources) Contact with or exposure to other viral diseases; Translations: [Close exposure to COVID-19 virus] Episodic Inflammatory diseases of female pelvic organs (1 source) Acute vaginitis; Translations: [Acute vaginitis] Episodic Malaise and fatigue (3 sources) Fatigue; Translations: [Other fatigue] 03-03-2020 Episodic Mood disorders (20 sources) Dysthymia; Translations: [Dysthymic disorder] Onset: 04-12-2012 08-23-2018 Chronic Nonspecific chest pain (6 sources) Chest wall pain; Translations: [Other chest pain] 01-12-2020 Episodic Nutritional deficiencies (1 source) Vitamin D deficiency; Translations: [Vitamin D deficiency, unspecified] Chronic Osteoarthritis (1 source) Primary osteoarthritis, right shoulder; Translations: [Primary osteoarthritis, right shoulder] Onset: 01-06-2025 Chronic Other circulatory disease (3 sources) H/O: hypertension; Translations: [Personal history of other diseases of the circulatory system] 02-27-2023 Episodic Other circulatory disease (2 sources) Personal history of other diseases of the circulatory system; Translations: [Personal history of other diseases of circulatory system] 02-27-2023 Episodic Other connective tissue disease (1 source) Foot pain; Translations: [Pain in unspecified foot] Onset: 12-21-2023 Episodic Other connective tissue disease (1 source) Pain in left foot; Translations: [Pain in left foot] 12-28-2019 Episodic Other connective tissue disease (1 source) Unspecified disorder of synovium and tendon, right shoulder; Translations: [Rotator cuff disorder, right] Onset: 01-06-2025 Episodic Other connective tissue disease (1 source) Bursitis of right shoulder; Translations: [Bursitis of right shoulder] Onset: 01-06-2025 Episodic Other connective tissue disease (1 source) Ganglion, unspecified site; Translations: [Ganglion, unspecified site] Onset: 12-27-2024 Episodic Other diseases of bladder and urethra (20 sources) Overactive bladder; Translations: [Overactive bladder] Onset: 08-28-2020 08-28-2020 Chronic Other female genital disorders (3 sources) Vaginal discharge; Translations: [Other specified noninflammatory disorders of vagina] Episodic Other female genital disorders (1 source) Vaginal odor; Translations: [Other specified noninflammatory disorders of vagina] Episodic Other female genital disorders (1 source) Vaginal irritation; Translations: [Other specified noninflammatory disorders of vagina] Episodic Other female genital disorders (1 source) Burning sensation of vagina; Translations: [Unspecified condition associated with female genital organs and menstrual cycle] Episodic Other liver diseases (20 sources) Steatosis of liver; Translations: [Fatty (change of) liver, not elsewhere classified] Onset: 03-30-2020 03-30-2020 Chronic Other liver diseases (3 sources) Raised cardiac enzyme or marker; Translations: [Abnormal levels of other serum enzymes] 03-29-2020 Episodic Other lower respiratory disease (3 sources) Interstitial pneumonia; Translations: [Interstitial pulmonary disease, unspecified] 02-27-2023 Chronic Other lower respiratory disease (2 sources) Interstitial pulmonary disease, unspecified; Translations: [Other specified alveolar and parietoalveolar pneumonopathies] 02-27-2023 Chronic Other lower respiratory disease (1 source) Lower respiratory tract infection; Translations: [Unspecified acute lower respiratory infection] 10-04-2022 Episodic Other lower respiratory disease (3 sources) Dyspnea; Translations: [Dyspnea, unspecified] 11-26-2020 Episodic Other lower respiratory disease (1 source) Wheezing; Translations: [Wheezing] Onset: 01-23-2025 Episodic Other nervous system disorders (20 sources) Neuropathy; Translations: [Polyneuropathy, unspecified] Onset: 04-25-2020 04-25-2020 Chronic Other non-traumatic joint disorders (2 sources) Pain in left knee; Translations: [Pain in joint, lower leg] Episodic Other non-traumatic joint disorders (1 source) Pain in right shoulder; Translations: [Acute pain of right shoulder] Onset: 12-22-2024 Episodic Other nutritional; endocrine; and metabolic disorders (20 sources) Obese class II; Translations: [Obesity, unspecified] Onset: 08-19-2017 07-24-2018 Chronic Other nutritional; endocrine; and metabolic disorders (20 sources) Body mass index 40+ - severely obese; Translations: [Morbid (severe) obesity due to excess calories] Onset: 07-19-2018 08-05-2018 Chronic Other screening for suspected conditions (not mental disorders or infectious disease) (1 source) Abnormal findings on diagnostic imaging of limbs; Translations: [Abnormal x-ray of extremity] Onset: 12-27-2024 Episodic Other upper respiratory disease (1 source) Nasal sinus problem; Translations: [Other specified disorders of nose and nasal sinuses] Episodic Other upper respiratory disease (3 sources) Acute bronchospasm; Translations: [Acute bronchospasm] 02-27-2023 Episodic Other upper respiratory disease (2 sources) Acute bronchospasm; Translations: [Acute bronchospasm] 02-27-2023 Episodic Other upper respiratory infections (3 sources) Viral sinusitis; Translations: [Chronic sinusitis, unspecified] Chronic Other upper respiratory infections (7 sources) Sore throat symptom; Translations: [Acute pharyngitis, unspecified] Onset: 01-23-2025 Episodic Otitis media and related conditions (6 sources) Acute transudative otitis media; Translations: [Other acute nonsuppurative otitis media, left ear] Episodic Pneumonia (except that caused by tuberculosis or sexually transmitted disease) (20 sources) Pneumonia; Translations: [Pneumonia, unspecified organism] Onset: 07-16-2018 Resolved: 04-05-2019 03-29-2020 Episodic Residual codes; unclassified (20 sources) Obstructive sleep apnea syndrome; Translations: [Obstructive sleep apnea (adult) (pediatric)] Onset: 09-11-2021 Chronic Residual codes; unclassified (1 source) Treatment not available; Translations: [Procedure and treatment not carried out for other reasons] Episodic Residual codes; unclassified (1 source) Did not attend; Translations: [No-show for appointment] 12-01-2022 Episodic Spondylosis; intervertebral disc disorders; other back problems (1 source) Low back pain; Translations: [Lumbar pain] Episodic Sprains and strains (3 sources) Sprain of ankle; Translations: [Sprain of unspecified ligament of right ankle, initial encounter] 05-25-2021 Episodic Superficial injury; contusion (1 source) Contusion of left wrist; Translations: [Contusion of left wrist, initial encounter] 05-20-2023 Episodic Syncope (3 sources) Near syncope; Translations: [Syncope and collapse] 03-29-2020 Episodic Unclassified (2 sources) Acknowledging anxiety 06-19-2013 Unclassified (2 sources) Cough, unspecified; Translations: [Cough, unspecified] Onset: 01-26-2025 Viral infection (6 sources) Disease caused by 2019-nCoV; Translations: [COVID-19] Episodic Past or Other Problems Problem Classification Problem Date Documented Da te Episodic/Chronic Abdominal pain (19 sources) Generalized abdominal pain; Translations: [Generalized abdominal pain] Onset: 02-21-2013 Resolved: 07-03-2014 07-03-2014 Episodic Acute and unspecified renal failure (20 sources) Acute renal failure syndrome; Translations: [Acute kidney failure, unspecified] Onset: 08-05-2018 Resolved: 09-16-2018 03-29-2020 Episodic Biliary tract disease (20 sources) Cholecystitis without calculus; Translations: [Cholecystitis, unspecified] Onset: 09-12-2018 09-15-2018 Episodic Cancer of cervix (20 sources) Cervical atypism; Translations: [Atypical squamous cells of undetermined significance on cytologic smear of cervix (ASC-US)] Onset: 02-05-2015 11-17-2016 Episodic Coagulation and hemorrhagic disorders (19 sources) Heparin-induced thrombocytopenia; Translations: [HIT (heparin-induced thrombocytopenia)] Onset: 08-05-2018 Resolved: 04-05-2019 04-05-2019 Chronic Contraceptive and procreative management (19 sources) Sterilization requested; Translations: [Encounter for sterilization] Onset: 06-30-2014 Resolved: 05-18-2015 03-18-2021 Episodic Diabetes or abnormal glucose tolerance complicating ; childbirth; or the puerperium (20 sources) Abnormal glucose level; Translations: [Abnormal glucose complicating ] Onset: 10-12-2014 Resolved: 07-07-2017 11-17-2016 Episodic Early or threatened labor (19 sources) False labor; Translations: [False labor, unspecified] Onset: 11-29-2005 Resolved: 01-14-2006 01-14-2006 Episodic Genitourinary symptoms and ill-defined conditions (20 sources) Microscopic hematuria; Translations: [Other microscopic hematuria] Onset: 02-21-2013 Resolved: 07-03-2014 02-21-2013 Episodic Headache; including migraine (19 sources) Medication overuse headache; Translations: [Drug-induced headache, not elsewhere classified, not intractable] Onset: 04-12-2012 Resolved: 01-22-2015 01-22-2015 Episodic Other aftercare (20 sources) Patient encounter status; Translations: [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] Onset: 03-11-2017 Resolved: 03-19-2018 Episodic Other complications of (19 sources) Maternal obesity complicating , childbirth and the puerperium, antepartum; Translations: [Obesity complicating , unspecified trimester] Onset: 05-26-2014 Resolved: 01-22-2015 03-18-2021 Chronic Other complications of (19 sources) Obesity; Translations: [Obesity complicating , unspecified trimester] Onset: 11-03-2016 Resolved: 07-07-2017 07-07-2017 Chronic Other complications of (20 sources) High risk ; Translations: [Supervision of high risk , unspecified, unspecified trimester] Onset: 06-19-2008 Resolved: 01-22-2015 04-12-2012 Episodic Other complications of (19 sources) Pain in female pelvis; Translations: [Other specified related conditions, unspecified trimester] Onset: 02-21-2013 Resolved: 07-05-2013 07-05-2013 Episodic Other complications of (18 sources) Anxiety in ; Translations: [Other mental disorders complicating , unspecified trimester] Onset: 05-26-2014 Resolved: 01-22-2015 03-18-2021 Episodic Other complications of (19 sources) Maternal tobacco use in ; Translations: [Smoking (tobacco) complicating , unspecified trimester] Onset: 05-26-2014 Resolved: 01-22-2015 03-18-2021 Episodic Other complications of (19 sources) Maternal tobacco use; Translations: [Smoking (tobacco) complicating , unspecified trimester] Onset: 11-03-2016 Resolved: 07-07-2017 07-07-2017 Episodic Other complications of (10 sources) Nausea and vomiting; Translations: [Vomiting of , unspecified] Onset: 11-03-2016 Resolved: 07-07-2017 07-07-2017 Episodic Other complications of (9 sources) Vomiting of , unspecified; Translations: [Unspecified vomiting of , unspecified as to episode of care or not applicable] Onset: 11-03-2016 Resolved: 07-07-2017 07-07-2017 Episodic Other complications of (1 source) Other mental disorders complicating , unspecified trimester; Translations: [Mental disorders of mother, antepartum condition or complication] Onset: 05-26-2014 Resolved: 01-22-2015 03-18-2021 Episodic Other connective tissue disease (20 sources) Muscle weakness; Translations: [Muscle weakness (generalized)] Onset: 08-28-2020 08-28-2020 Episodic Other lower respiratory disease (20 sources) Cavitation of lung; Translations: [Other disorders of lung] Onset: 08-09-2018 09-15-2018 Episodic Other nervous system disorders (19 sources) Disorder of brain; Translations: [Encephalopathy, unspecified] Onset: 07-16-2018 Resolved: 08-23-2018 08-23-2018 Chronic Other nutritional; endocrine; and metabolic disorders (19 sources) Obese class I; Translations: [Obesity, unspecified] Onset: 04-12-2012 Resolved: 08-19-2017 08-19-2017 Chronic Other and delivery including normal (20 sources) Normal ; Translations: [Encounter for supervision of other normal , unspecified trimester] Onset: 08-07-2005 Resolved: 07-07-2017 01-14-2006 Episodic Phlebitis; thrombophlebitis and thromboembolism (20 sources) Deep venous thrombosis; Translations: [Acute embolism and thrombosis of unspecified deep veins of unspecified lower extremity] Onset: 09-12-2018 09-15-2018 Episodic Residual codes; unclassified (19 sources) Tobacco user; Translations: [Tobacco use] Onset: 04-12-2012 Resolved: 07-03-2014 07-03-2014 Episodic Respiratory failure; insufficiency; arrest (adult) (20 sources) Acute respiratory failure; Translations: [Acute respiratory failure with hypoxia] Onset: 07-16-2018 Resolved: 04-05-2019 03-29-2020 Episodic Screening and history of mental health and substance abuse codes (20 sources) H/O: depression; Translations: [Personal history of other mental and behavioral disorders] Onset: 11-03-2016 07-24-2018 Episodic Septicemia (except in labor) (20 sources) Septic shock; Translations: [Sepsis, unspecified organism] Onset: 07-16-2018 Resolved: 04-05-2019 03-29-2020 Episodic Substance-related disorders (19 sources) Nicotine dependence; Translations: [Nicotine dependence, unspecified, uncomplicated] Onset: 07-19-2018 Resolved: 04-05-2019 04-05-2019 Chronic Unclassified (19 sources) NO SHOW Onset: 01-12-2013 Resolved: 07-03-2014 07-03-2014 Urinary tract infections (20 sources) Recurrent urinary tract infection; Translations: [Urinary tract infection, site not specified] Onset: 06-05-2020 06-05-2020 Episodic Results Test Name Value Interpretation Reference Range Facility Chest PA and Lateralon 01-26 Chest PA and Lateral [facility] [address] [place] [address] Chest PA and Lateral MR#: [id number] Acct: [id number] Name: TRENAJune Rep #: [id number] : 1985 F 39 From: Shayna Macias MD PCP: KIMBERLEY Sampson Status: REG CLI Study: Chest PA and Lateral Date of Exam: 01/26/25 Exam# [id number] Ordering Dr: Juan Alcocer PROCEDURE: CHEST PA AND LATERAL 01/26/2025 REASON FOR EXAM: COUGH TECHNIQUE: Procedure Code: RADCXR Modality: DX Procedure: CHEST PA AND LATERAL COMPARISON: 02/27/2023 FINDINGS: LUNGS AND PLEURA: The lungs are clear. No pleural effusion or pneumothorax. HEART AND MEDIASTINUM: The heart size and mediastinal contours are normal. BONES: No acute osseous abnormality. RAD/Chest PA and Lateral IMPRESSION: NO ACUTE FINDINGS. Reading [facility] CC: KIMBERLEY Granados; TIM Barragan Sld Teacher: Signed Normal [facility] Urgent Care Visit Reporton 1 03-28-2024 Urgent Care Visit Report [facility] [address], [address] [place] [id number] OFFICE VISIT Date of Service: 01/26/25 MR#: [id number] Acct: [id number] Name: TRENA Rep #: [id number] : 1985 Provider: TIM Barragan Age/Sex: 39/F Location: [email or web address] Status: Signed Intake Vital Signs 05/20/23 09:23 01/26/25 15:25 Height 5 ft 7 in 5 ft 7.5 in Weight: 258 lb 8 oz BMI 39.9 BP 110/68 Position Sitting Respiration 18 Pulse 89 Temp 98.3 F Pulse Oximetry (%) 98 Oxygen Delivery Method room air Intake Visit Reasons: COUGH, EAR PAIN, CONGESTION , SORE THROAT Chief Complaint: cough,ST,ear pain and congestion Accompanied by: Self Allergies Bleach (Sodium Hypochlorite) Allergy (Verified 01/26/25 15:20) Hives heparin Allergy (Verified 01/26/25 15:20) Other amoxicillin (Amoxicillin) Adverse Reaction (Verified 01/26/25 15:20) Rash citalopram hydrobromide (From Celexa) Adverse Reaction (Verified 11/06/25 15:20) Mood [facility] Medical History Acute bronchospasm Acute hypoxemic respiratory failure Bilateral interstitial pneumonia DVT (deep venous thrombosis) Fatty liver Gallbladder problem History of hypertension Leukocytosis Pure hypercholesterolemia RSV (respiratory syncytial virus infection) Sepsis without acute organ dysfunction Sinus tachycardia Type 2 diabetes mellitus Surgical History H/O dilation and curettage H/O tubal ligation History of partial hysterectomy Family History Mother Diabetes Hypertension Asthma Sister Prediabetes Grandmother Kidney failure maternal Social History household members: significant other and children Smoking Status: Current every day smoker tobacco type: cigarettes substance use type: does not use HPI HPI Chief Complaint: cough,ST,ear pain and congestion Details: MARTINA ALBRECHT, is a 39 F who presents to the office today for cough,ear pain and congestion and sore throat starting 6 days ago. Patient went to a Urgent care on Thursday and states that she was treated for pneumonia including doxycycline and a steroid along with Tessalon Perles however states this has not helped. Patient denies hemoptysis, shortness of breath or difficulty breathing. No fever, chills, sweats. No nausea, vomiting, diarrhea. No other associated symptoms or alleviating/aggravatin g factors. ROS Const Constitutional: No other (6 system ROS completed with pertinent findings in the HPI otherwise normal.) Exam Const General: cooperative and well developed [facility] Head: normal to inspection and atraumatic Ears: hearing grossly normal bilaterally Nose: nasal discharge clear Face and sinus: normal facial exam Mouth: oral mucosae normal Throat: abnormal tonsil bilaterally hypertrophy 1+ Resp Effort Inspection: normal respiratory effort and no audible wheezes Auscultation: Bilateral: Clear to Auscultation Cardio Rate: regular rate Rhythm: regular rhythm Neuro General: patient alert Psych Appearance: grossly normal Mental Status: mental status grossly normal Coding Level of Care Code Off vis,new,level 4 Diagnoses Acute bronchitis J20.9 Assessment and Plan Assessment and Plan (1) Acute bronchitis: Status: Acute Plan: 2 view chest x-ray read and interpreted by myself find no acute cardiopulmonary disease, awaiting radiology interpretation at time of patient discharge. Patient given a prescription for a nebulizer along with DuoNebs and Capmist. Encouraged to get plenty of rest, drink lots of clear liquids, and use Tylenol or Ibuprofen (unless contraindicated) for fever and comfort. Patient also educated on other symptomatic management techniques. To be seen in 7-10 days if no improvement; sooner if worsening of symptoms. Patient advised of potential red flags and when appropriate to report to the ED. Patient verbalized understanding and agreement with all the above. Orders: Orders Chest PA and Lateral 01/26/25 R05.9 - Cough, unspecified DME 01/26/25 J20.9 - Acute bronchitis, unspecified Medications: New ipratropium-albuterol 0.5 mg-3 mg(2.5 mg base)/3 mL 3 mL inhalation Q6H 90 mL 0RF 5 days tbtqozvyqwbohvp-KB-[id number] ifenesin 60-15-400 mg (Capmist DM) do not exceed 4 doses per 24 hrs 1 TAB PO Q4-6H PRN 20 tabs 0RF cold symptoms 01/27/25 07 Date Juan Shankar Signature: Date (if applicable) CC: Normal [facility] CNOVon 01-23-2025 [facility] Office Visit (TREE) TRENA,June ([id number]) 1985 F Date Time Provider Department 01/23/25 11:30 AM ANA BABIN During your visit today, we recorded the following information about you: Temperature Pulse Respiration Blood pressure 97.4 degrees 94/minute 18/minute 110/80 Weight 117.7 kg Ana Babin PA-C 01/23/2025 12:22 PM Signed [facility] Subjective June Trena is a 39 year old female. Patient presents with: Nasal Congestion: chest congestion, cough, ear pain, sore throat and headache x 4 days Patient is a 39-year-old female who complains of worsening congestion, sore throat and cough that she has been experiencing for the past 4 days. Patient also states that she is experiencing persistent episodes of wheezing. Patient has no history of asthma or COPD and does not smoke. Patient reports no fever but has developed chills and myalgia. Patient is requesting testing for influenza and COVID-19. Nasal Congestion Associated symptoms include chills, congestion, coughing and a sore throat. Review of Systems Constitutional: Positive for chills. HENT: Positive for congestion and sore throat. Respiratory: Positive for cough and wheezing. Musculoskeletal: Positive for myalgias. All other systems reviewed and are negative. Objective BP 110/80 Pulse 94 Temp 36.3 ?C (97.4 ?F) Resp 18 Wt 117.7 kg (259 lb 7.7 oz) LMP 05/03/2018 (Within Days) SpO2 96% BMI 40.64 kg/m? Physical Exam Vitals and nursing note reviewed. Constitutional: Appearance: Normal appearance. She is normal weight. HENT: Head: Normocephalic and atraumatic. Right Ear: Tympanic membrane, ear canal and external ear normal. Left Ear: Tympanic membrane, ear canal and external ear normal. Nose: Nose normal. Mouth/Throat: Mouth: Mucous membranes are moist. Pharynx: Oropharynx is clear. Eyes: Extraocular Movements: Extraocular movements intact. Conjunctiva/sclera: Conjunctivae normal. Pupils: Pupils are equal, round, and reactive to light. Cardiovascular: Rate and Rhythm: Normal rate and regular rhythm. Pulses: Normal pulses. Heart sounds: Normal heart sounds. Pulmonary: Effort: Pulmonary effort is normal. Breath sounds: Wheezing present. Comments: Slight rhonchi with wheezing is noted to the bilateral lungs most pronounced to the right. Respiratory effort is relaxed and the patient demonstrates a frequent, loose cough. Pulse oximeter saturation is 96% on room air. Musculoskeletal: Cervical back: Normal range of motion and neck supple. Skin: General: Skin is warm and dry. Capillary Refill: Capillary refill takes less than 2 seconds. Neurological: General: No focal deficit present. Mental Status: She is alert and oriented to person, place, and time. Psychiatric: Mood and Affect: Mood normal. Behavior: Behavior normal. Thought Content: Thought content normal. Judgment: Judgment normal. MDM Physical exam findings as noted above. Rapid strep test is negative. Influenza A/B/SARS-CoV-2/RSV PCR was ordered and the patient was advised that results will be available tomorrow. Chest x-ray was obtained and demonstrates peribronchial cuffing as well as linear opacities in the right upper lobe. Radiologist does state that the opacities likely represent atelectasis and/or scarring, however given the patient's clinical presentation and physical exam findings pneumonia is a distinct concern. Patient was provided with prescriptions for doxycycline 100 mg, prednisone 20 mg and Tessalon 100 mg. Patient was very clearly instructed to report to an emergency department if she notes any acute worsening symptoms. Patient states that she does have an albuterol MDI at home from a previous respiratory illness and does not require a prescription today for same. CLINICAL IMPRESSION: Bronchopneumonia ASSESSMENT/PLAN: 1. Sore throat - ICD9: 462, ICD10: J02.9 (primary diagnosis) - STREP A MOLECULAR (POC) - COVID AND INFLUENZA A/B AND RSV PCR, ROUTINE 2. Wheezing - ICD9: 786.07, ICD10: R06.2 - XR CHEST 2V FRONTAL/LAT 3. Bronchopneumonia - ICD9: 485, ICD10: J18.0 [facility] Amount and/or Complexity of Data Reviewed Clinical lab tests: ordered and reviewed Tests in the radiology section of CPT?: ordered and reviewed Risk of Complications, Morbidity, and/or Mortality Presenting problems: moderate Diagnostic procedures: low Management options: soham Babin PA-C Allergies As of Date: 01/23/2025 Noted Allergy Reaction AMOXICILLIN 05/20/2013 4 - Hives BACTRIM (SULFAMETHOXAZOLE-TRIM ETH*07/05/2020 8 - GI Upset Comments: Nausea CELEXA (CITALOPRAM) 04/14/2022 1 - Mental Status Change Comments: Suicidal per pt HEPARIN 08/06/2018 14 - Other: See Comments Comments: HIT BLEACH (SODIUM HYPOCHLORITE) 07/17/2018 2 - Rash Comments: Skin irritation, itching Date Reviewed: (more content not included)... Normal [facility] XR CHEST 2V FRONTAL/LATon XR CHEST 2V FRONTAL/LAT * * *Final Repor t* * * DATE OF EXAM: Jan 23 2025 12:04PM WOX [id number] - XR CHEST 2V FRONTAL/LAT / PROCEDURE REASON: Wheezing * * * * Physician Interpretation * * * * EXAMINATION: CHEST RADIOGRAPH (2 VIEW FRONTAL and LATERAL) CLINICAL HISTORY: Cough with wheezing MQ: [id number] EXAM DATE/TIME: 01/23/2025 12:04 PM COMPARISON: Chest x-ray dated 12/09/2018 RESULT: Lines, tubes, and devices: None. Lungs and pleura: Mild central peribronchial cuffing. Linear opacities in the right upper lobe. No consolidation. No lung mass. No pleural effusion. No pneumothorax. Cardiomediastinal silhouette: Stable cardiomediastinal silhouette. Bones and soft tissues: Degenerative changes are present within the thoracic spine. IMPRESSION: Mild central peribronchial cuffing which may be related to small airways inflammation/bronchiti s. Linear opacities in the right upper lobe, likely atelectasis and/or scarring. Sld Teacher: BERONICA Transcribe Date/Time: Jan 23 2025 12:04P Dictated by : NELLA TINSLEY MD This examination was interpreted and the report reviewed and electronically signed by: NELLA TINSLEY MD on Jan 23 2025 12:06PM EST [id number] Normal [facility] CNCOon 01-06-2025 CNCO Letter Text Normal [facility] CNOVon 01-06-2025 CNOV Office Visit ([facility]FHWS ) MARTINA ALBRECHT ([id number]) 1985 F Date Time Provider Department 01/06/25 3:00 PM MOSHE YOU V [facility]WS During your visit today, we recorded the following information about you: JudyZahra MA 01/06/2025 3:12 PM Signed AMB ROOMING INTAKE FLOWSHEET DATA Pain Pain Level: 5 Pain Location: Shoulder-Right Description: Aching, Shooting, Stabbing Duration Amount of Time: (ongoing) Duration Units: Weeks Frequency: Continuous Intervention/Comfort measure: Medication, Relaxation, Reposition Moshe You V, DO 01/06/2025 3:12 PM Signed Subjective Martina is a 39-year-old female presenting for follow-up on right shoulder pain. Martina reports persistent right shoulder pain, which is exacerbated at night and interferes with sleep. She also experiences increased pain when using the shoulder at work. She denies any acute injury or trauma to the shoulder. She has a known sensitivity to medications, which has limited her ability to manage the pain effectively. Recent MRI results revealed a partial tear of the rotator cuff, inflammation of the bursa, and early arthritis in the joint. Martina expresses concern about the need for major interventions and is seeking guidance on appropriate treatment options. Constitutional: (+) sleep disturbance Gastrointestinal: (+) diarrhea Musculoskeletal: (+) right shoulder pain Psychiatric: (+) anxiety Objective Last menstrual period 05/03/2018. General: No acute distress. Imaging: - MRI Shoulder: Partial-thickness undersurface rotator cuff tear; bursitis; joint inflammation with effusion; early arthritis. - X-ray Shoulder: Prior shadow considered incidental; humeral head normal. Assessment AND Plan 1. Rotator cuff disorder, right (M67.911) 2. Bursitis of right shoulder (M75.51) 3. Primary osteoarthritis, right shoulder (M19.011) MRI revealed a partial undersurface tear of the right rotator cuff tendon, bursitis, and early osteoarthritis. No evidence of complete tear or acute injury; findings are consistent with chronic degenerative changes. - Administered corticosteroid injection to the right shoulder to reduce inflammation and alleviate pain. - Discussed expected course of relief: immediate effect from local anesthetic, with corticosteroid effect beginning within 24 hours and lasting approximately 6-8 weeks. - Referred to physical therapy to restore motion and strength. - Provided work note for light duty for 2 weeks, restricting repetitive lifting or lifting over 5 pounds with the right arm. - Educated patient on the chronic, degenerative nature of the tear, bursitis, and arthritis, and the importance of physical therapy for optimal recovery. Large Joint Arthro/Inj: R subacromial bursa 01/06/2025 3:11 PM The procedure site was prepped in the usual sterile fashion. Site: R subacromial bursa Medications: 40 mg triamcinolone acetonide 40 mg/mL Anesthetics: 4 mL lidocaine (PF) 10 mg/mL (1 %); 4 mL BUPivacaine (PF) 0.5 % (5 mg/mL) Outcome: Tolerated well, no immediate complications Post-injection instructions were reviewed with the patient and the patient voiced understanding of these instructions. Informed Consent Consent Obtained: Verbal [place] Protocol SIGN IN TIME OUT Recording using [employer] software for draft documentation of the visit was discussed with the patient/authorized plastic products sales representative; all questions welcomed and answered. Patient/authorized plastic products sales representative agreed to proceed Referring Provider: MOSHE YOU V [[id number]] Allergies As of Date: 01/06/2025 Noted Allergy Reaction AMOXICILLIN 05/20/2013 4 - Hives BACTRIM (SULFAMETHOXAZOLE-TRIM ETH*07/05/2020 8 - GI Upset Comments: Nausea CELEXA (CITALOPRAM) 04/14/2022 1 - Mental Status Change Comments: Suicidal per pt HEPARIN 08/06/2018 14 - Other: See Comments Comments: HIT BLEACH (SODIUM HYPOCHLORITE) 07/17/2018 2 - Rash Comments: Skin irritation, itching Date Reviewed: 01/06/2025 Reviewed by: Zahra Kim MA - Fully Assessed Reason for Visit: right shoulder pain - wants injection [Other] Primary Visit Diagnosis:Rotator cuff disorder, right [M67.911] Other Visit Diagnoses:Bursitis of right shoulder [M75.51] Primary osteoarthritis, right shoulder [M19.011] Order(s):CONSULT TO PHYSICAL THERAPY [8996] Order #: [id number]: 1 FUTURE Large Joint Arthro/Inj: R subacromial bursa [GVF134] Order #: [id number] [] BUPivacaine (PF) 0.5 % (5 mg/mL) 4 mL injectionDisp: Rfl: [] lidocaine (PF) 10 mg/mL (1 %) 4 mL injection (XYLOCAINE)Disp: Rfl: [] triamcinolone acetonide 40 mg injection (KeNALog 40)Disp: Rfl: Prescriptions as of 01/06/2025 - diclofenac, EC, (VOLTAREN) 75 mg EC tablet Take 1 tablet by mouth two times a day. for pain. - FARXIGA 10 mg tablet Take 1 tablet by mouth every afternoon. - fluticasone (more content not included)... Normal [facility] MRI SHOULDER WO IVCON RTon 1 MRI SHOULDER WO IVCON RT * * *Final Report* * * DATE OF EXAM: Jan 04 2025 12:20PM WRM 0240 - MRI SHOULDER WO IVCON RT / PROCEDURE REASON: Abnormal x-ray of extremity * * * * Physician Interpretation * * * * EXAMINATION: MRI SHOULDER WO IVCON RT HISTORY: Right shoulder warmth; pain with abduction and elevation; pain with resisted forward flexion; Rotator cuff strength testing hindered by pain. TECHNIQUE: Routine non-contrast MRI of the shoulder. MQ: MRS_1A COMPARISON: Shoulder radiograph 12/22/2024. RESULT: TENDONS: Rotator cuff tendons: -Supraspinatus: Low grade partial thickness (less than 50%) articular surface tear involving the posterior third of the tendon and bursal surface fraying with background tendinosis -Infraspinatus: Low grade partial thickness (less than 50%) articular surface tear involving nearly the entire width of the tendon with background tendinosis -Subscapularis: Intact with mild tendinosis -Teres Minor: Intact tendon Biceps (Long head) Tendon: Intact , with normal course MUSCLES: Rotator cuff muscles: -Supraspinatus: Preserved bulk and no fatty changes. -Infraspinatus: Preserved bulk and no fatty changes. -Subscapularis: Preserved bulk and no fatty changes. -Teres Minor: Preserved bulk and no fatty changes. Other muscles: Preserved signal and bulk in the deltoid. JOINTS: Glenohumeral Joint: -Labrum: Degeneration and fraying without discrete tear in the posterior labrum -Cartilage: Mild cartilage loss/fissuring -Joint Fluid: No effusion . No synovitis. Acromioclavicular Joint: Mild to moderate hypertrophic degenerative changes BONES AND MARROW: No evidence of fracture or suspicious bone marrow replacing process . Reactive subcortical cystic changes at the greater tuberosity. OTHER: Subdeltoid/Subacromial Bursa: Mild bursal distention with synovial thickening/proliferati on. Other: No other significant findings. Localizer images: No additional findings. IMPRESSION: Low-grade partial tearing of the supraspinatus and infraspinatus. Glenohumeral and AC joint osteoarthritis. Mild subdeltoid/subacromial bursitis. Sld Teacher: BERONICA Transcribe Date/Time: Jan 04 2025 1:51P Dictated by : NICHOLE CARLOS MD This examination was interpreted and the report reviewed and electronically signed by: IRIS CHIRINOS MD on Jan 04 2025 2:59PM EST [id number] Normal [facility] CNOVon 12-27-2024 CNOV Office Visit (FRFHWS ) MARTINA ALBRECHT ([id number]) 1985 F Date Time Provider Department 12/27/24 1:00 PM [facility] During your visit today, we recorded the following information about you: Zahra Kim MA 12/27/2024 1:18 PM Signed AMB ROOMING INTAKE FLOWSHEET DATA Pain Pain Level: 4 Pain Location: Shoulder-Right Description: Aching, Radiating Duration Amount of Time: (couple weeks) Duration Units: Weeks Frequency: Continuous Intervention/Comfort measure: Medication Moshe You V, DO 12/27/2024 1:18 PM Signed Subjective Martina is a 39-year-old female presenting for evaluation of right shoulder pain. Martina reports a few week history of right shoulder pain that began insidiously upon waking one morning and has progressively worsened. She was evaluated at an urgent care facility, where an x-ray revealed an ill-defined lucency in the greater tuberosity of the humerus. She was prescribed a course of prednisone, which provided temporary relief, but the pain has recurred after completing the medication today. The pain is localized to the greater tuberosity and radiates down the arm. It is exacerbated by lifting the arm, applying pressure, and lying on the affected side, which has disrupted her sleep. She also experiences significant pain when reaching behind her head or back, and reports difficulty performing daily activities such as brushing her hair. She denies noticeable paresthesia in the hand. She has tried [id number] medications, including ibuprofen and Tylenol, without relief. She is able to tolerate these medications without gastrointestinal issues. 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 She is right-handed and notes that the pain is in her dominant arm. Gastrointestinal: (-) abdominal pain Musculoskeletal: (+) right shoulder pain, (+) limited range of motion of right shoulder, (-) foot pain Skin: (+) foot mass Neurological: (-) numbness, (-) tingling Objective Last menstrual period 05/03/2018. General: No acute distress. MSK/Ext: Right shoulder warmth; pain with abduction and elevation; pain with resisted forward flexion; Rotator cuff strength testing hindered by pain. Hawkin's test is positive. Drop arm test is positive for pain on right. compressible mass on dorsal aspect of foot, compressible mass on ankle consistent with ganglion cyst. Imaging: - Shoulder X-ray: Ill-defined lucency at the greater tuberosity of the humerus; Assessment AND Plan 1. Acute pain of right shoulder (M25.511) 2. Abnormal x-ray of extremity (R93.6) Acute right shoulder pain with limited ROM and nocturnal discomfort. X-ray revealed an ill-defined lucency at the greater tuberosity; differential includes rotator cuff tendinitis or bursitis. - Order MRI of the right shoulder for further evaluation. - Start diclofenac for pain and inflammation. - Educated patient on the limitations of X-ray imaging and the need for MRI to clarify findings. 3. Ganglion, unspecified site (M67.40) Exam findings consistent with ganglion cysts on the foot and ankle. - Educated patient that ganglion cysts are benign and may resolve spontaneously; surgical removal is an option if they become painful or problematic. Recording using [employer] software for draft documentation of the visit was discussed with the patient/authorized plastic products sales representative; all questions welcomed and answered. Patient/authorized plastic products sales representative agreed to proceed Referring Provider: LELA MCDANIEL [[id number]] Allergies As of Date: 12/27/2024 Noted Allergy Reaction AMOXICILLIN 05/20/2013 4 - Hives BACTRIM (SULFAMETHOXAZOLE-TRIM ETH*07/05/2020 8 - GI Upset Comments: Nausea CELEXA (CITALOPRAM) 04/14/2022 1 - Mental Status Change Comments: Suicidal per pt HEPARIN 08/06/2018 14 - Other: See Comments Comments: HIT BLEACH (SODIUM HYPOCHLORITE) 07/17/2018 2 - Rash Comments: Skin irritation, itching Date Reviewed: 12/27/2024 Reviewed by: Zahra Kim MA - Fully Assessed Reason for Visit: right shoulder pain [Other] Primary Visit Diagnosis:Abnormal x-ray of extremity [R93.6] Other Visit Diagnoses:Acute pain of right shoulder [M25.511] Ganglion, unspecified site [M67.40] Order(s):CONSULT TO ORTHOPAEDICS [9026] Order #: [id number]: 1 diclofenac, EC, (VOLTAREN) 75 mg EC tabletTake 1 tablet by mouth two times a day. for pain.Disp: 30 tabletRfl: 0 MRI SHOULDER WO IVCON RIGHT [[id number]] Order #: [id number] FUTURE Prescriptions as of 12/27/2024 - diclofenac, EC, (VOLTAREN) 75 mg EC tablet Take 1 tablet by mouth two times a day. for pain. - predniSONE (DELTASONE) 20 mg tablet Take 2 tablets by mouth once daily for 5 days. Take daily with food. - FARXIGA 10 mg tablet Take 1 tabl (more content not included)... Normal [facility] CNOVon 12-22-2024 CNOV Office Visit (WOUCA) TRENAJune ([id number]) 1985 F Date Time Provider Department 12/22/24 1:15 PM LELA MCDANIEL During your visit today, we recorded the following information about you: Temperature Pulse Respiration Blood pressure 97 degrees 86/minute 20/minute 127/76 Weight 117 kg Lela Mcdaniel APRN.CNP 12/22/2024 4:08 PM Signed [facility] Subjective HPI HPI Martina Trena is a 39 year old female who presents today for CC of right shoulder pain radiating to right arm. This started 2 weeks ago. Has tried otc medication for relief. Symptoms are worsened by rom of shoulder. Denies injury, numbness/tingling. 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 Hypertension Iron deficiency anemia Neuropathy bilateral lower ext Obesity (BMI 30-39.9) ELLEN (obstructive sleep apnea) 09/11/2021 Pap smear abnormality of cervix with ASCUS favoring benign 02/05/2015 Pneumonia 2019 MSSA, pseudomonas depression Type 2 diabetes mellitus without complication, without long-term current use of insulin ([facility]) 03/13/2020 PAST SURGICAL HISTORY Procedure Laterality Date DILATION AND CURETTAGE DXAND/THER NONOBSTETRIC 2004 Dilation AND curettage MIDLINE INSERTION/CONSULT 09/16/2018 TUBAL LIGATION 2018 w/ Filshie clips VAGINAL HYSTERECTOMY UTERUS 250 GM/< 07/15/2018 [facility] ALLERGIES Amoxicillin, Bactrim [Sulfamethoxazole-Trim ethoprim], Celexa [Citalopram], Heparin, and Bleach (Sodium Hypochlorite) MEDICATIONS FARXIGA 10 mg tablet Take 1 tablet by mouth every afternoon. fluticasone (FLONASE) 50 mcg/actuation nasal spray Use 2 Sprays in each nostril once daily. Rinse mouth after use. FLUoxetine (PROZAC) 40 mg capsule Take 1 capsule by mouth once daily. Take with 20 mg dose. FLUoxetine (PROZAC) 20 mg capsule Take 1 capsule by mouth once daily. Take with 40 mg dose. QUEtiapine (SEROQUEL) 50 mg tablet Take 1 tablet by mouth daily at bedtime. topiramate (TOPAMAX) 50 mg tablet Take 1 tablet by mouth once daily. gabapentin (NEURONTIN) 400 mg capsule Take one capsule in the morning, and 3 capsules in the evening. metoprolol tartrate, short acting, (LOPRESSOR) 25 mg tablet Take 0.5 tablets by mouth every 12 hours. riboflavin, vitamin B2, 400 mg tab Take 1 tablet by mouth once daily. ferrous sulfate 325 mg (65 mg iron) tablet Take 1 tablet by mouth twice daily. famotidine (PEPCID) 20 mg tablet Take 1 tablet by mouth twice daily as needed. albuterol HFA (PROVENTIL HFA, VENTOLIN HFA) 90 mcg/actuation inhaler Inhale 2 Puffs as instructed every 4 hours as needed for wheezing/shortness of breath. lactobacillus rhamnosus (CULTURELLE) 10 billion cell capsule Take 1 capsule by mouth once daily. cetirizine (ZYRTEC) 10 mg tablet Take 1 tablet by mouth once daily. magnesium oxide (MAG-OX) 400 mg (241.3 mg magnesium) tablet Take 1 tablet by mouth once daily. atorvastatin (LIPITOR) 40 mg tablet Take 1 tablet by mouth daily at bedtime. For cholesterol. fenofibrate nanocrystallized (TRICOR) 145 mg tablet Take 1 tablet by mouth once daily. Lancets lancets Test blood sugar(s) 1 times daily. Dx: Type 2 DM - Controlled E11.9 Insulin: No blood sugar diagnostic (BLOOD GLUCOSE TEST) test strip Test blood sugar(s) 1 times daily. Dx: Other DM Code R73.03 Insulin: No CPAP CPAP 7 cm H2O. Formal mask refitting AND work with RT, chin strap, head gear, humidity, heated tubing(GWENDOLYN), lifetime supplies. G47.33 ELLEN blood sugar diagnostic (BLOOD GLUCOSE TEST) test strip Test blood sugar(s) 1 times daily. Dx: Type 2 DM - Controlled E11.9 Insulin: No fluticasone (FLONASE) 50 mcg/actuation nasal spray Use 2 Sprays in each nostril once daily. Rinse mouth after use. dulaglutide (TRULICITY) 1.5 mg/0.5 mL pen injector Inject 1.5 mg subcutaneously one time a week. Inject once per week. Discard Pen After fluticasone (FLONASE) 50 mcg/actuation nasal spray Use 2 Sprays in each nostril once daily. Rinse mouth after use. FAMILY HISTORY Problem Relation Age of Onset Anxiety disorder Mother Thyroid Mother Hypothyroidism Diabetes Mother other (cellulitis) Mother Bipolar disorder Sister Schizophrenia Sister Hypertension Maternal Aunt Diabetes Maternal Grandfather Hypertension Maternal Grandfather Heart Maternal Grandfather PACEMAKER No Ocular Disease No Family History SOCIAL HISTORY[1] Review of Systems Objective BP 127/76 Pulse 86 Temp 36.1 ?C (97 (more content not included)... Normal [facility] XR SHLDR >/=3V AP/DARVIN AP/OTH R RTon 12-22-2024 XR SHLDR >/=3V AP/DARVIN AP/OTHR RT * * *Final Report* * * DATE OF EXAM: Dec 22 2024 1:53PM WOX 5253 - XR SHLDR >/=3V AP/DARVIN AP/OTHR RT / PROCEDURE REASON: Acute pain of right shoulder * * * * Physician Interpretation * * * * EXAM TITLE: XR SHLDR >/=3V AP/DARVIN AP/OTHR RT EXAM DATE/TIME: 12/22/2024 1:53 PM COMPARISON: None. CLINICAL INDICATION/HISTORY: Acute shoulder pain. TECHNIQUE: AP, true AP and axial views of the right shoulder are presented FINDINGS: No acute fractures or subluxations are noted. The acromioclavicular and glenohumeral joint spaces are well preserved. There appears be a 2.5 cm ill-defined lucency along the greater tuberosity. Normal acromiohumeral interval. The mineralization of the bones is normal. There is no significant soft tissue swelling. IMPRESSION: 2.5 cm ill-defined lucency in the greater tuberosity. Please clinically correlate. Sld Teacher: PSCB Transcribe Date/Time: Dec 22 2024 1:58P Dictated by : AGNIESZKA CARVALHO MD This examination was interpreted and the report reviewed and electronically signed by: AGNIESZKA CARVALHO MD on Dec 22 2024 2:03PM EST [id number] Normal [facility] CNPDasha 08-24-2024 CNPN Telephone ([facility]) TRENA,June ([id number]) 1985 F Date Time Provider Department 08/24/24 TREV JUNE During your visit today, we recorded the following information about you: Peggy Perez MA 08/24/2024 8:23 AM Signed Received [facility] medical necessity CPAP supplies needs signed and fax to janey at [phone] Peggy Perez MA 09/02/2024 2:55 PM Signed Fax last office note date of 05/09/2021 Allergies As of Date: 08/24/2024 Noted Allergy Reaction AMOXICILLIN 05/20/2013 4 - Hives BACTRIM (SULFAMETHOXAZOLE-TRIM ETH*07/05/2020 8 - GI Upset Comments: Nausea CELEXA (CITALOPRAM) 04/14/2022 1 - Mental Status Change Comments: Suicidal per pt HEPARIN 08/06/2018 14 - Other: See Comments Comments: HIT BLEACH (SODIUM HYPOCHLORITE) 07/17/2018 2 - Rash Comments: Skin irritation, itching Date Reviewed: 02/24/2024 Reviewed by: Reina Maloney LPN - Fully Assessed Reason for Visit: Patient Update [1234] Orders [681] Cmt: [facility] CPAP order Prescriptions as of 09/07/2024 - FARXIGA 10 mg tablet Take 1 tablet by mouth every afternoon. - fluticasone (FLONASE) 50 mcg/actuation nasal spray Use 2 Sprays in each nostril once daily. Rinse mouth after use. - FLUoxetine (PROZAC) 40 mg capsule Take 1 capsule by mouth once daily. Take with 20 mg dose. - FLUoxetine (PROZAC) 20 mg capsule Take 1 capsule by mouth once daily. Take with 40 mg dose. - QUEtiapine (SEROQUEL) 50 mg tablet Take 1 tablet by mouth daily at bedtime. - topiramate (TOPAMAX) 50 mg tablet Take 1 tablet by mouth once daily. - gabapentin (NEURONTIN) 400 mg capsule Take one capsule in the morning, and 3 capsules in the evening. - fluticasone (FLONASE) 50 mcg/actuation nasal spray Use 2 Sprays in each nostril once daily. Rinse mouth after use. - dulaglutide (TRULICITY) 1.5 mg/0.5 mL pen injector Inject 1.5 mg subcutaneously one time a week. Inject once per week. Discard Pen After - metoprolol tartrate, short acting, (LOPRESSOR) 25 mg tablet Take 0.5 tablets by mouth every 12 hours. - riboflavin, vitamin B2, 400 mg tab Take 1 tablet by mouth once daily. - ferrous sulfate 325 mg (65 mg iron) tablet Take 1 tablet by mouth twice daily. - famotidine (PEPCID) 20 mg tablet Take 1 tablet by mouth twice daily as needed. - albuterol HFA (PROVENTIL HFA, VENTOLIN HFA) 90 mcg/actuation inhaler Inhale 2 Puffs as instructed every 4 hours as needed for wheezing/shortness of breath. - fluticasone (FLONASE) 50 mcg/actuation nasal spray Use 2 Sprays in each nostril once daily. Rinse mouth after use. - lactobacillus rhamnosus (CULTURELLE) 10 billion cell capsule Take 1 capsule by mouth once daily. - cetirizine (ZYRTEC) 10 mg tablet Take 1 tablet by mouth once daily. - magnesium oxide (MAG-OX) 400 mg (241.3 mg magnesium) tablet Take 1 tablet by mouth once daily. - atorvastatin (LIPITOR) 40 mg tablet Take 1 tablet by mouth daily at bedtime. For cholesterol. - fenofibrate nanocrystallized (TRICOR) 145 mg tablet Take 1 tablet by mouth once daily. - Lancets lancets Test blood sugar(s) 1 times daily. Dx: Type 2 DM - Controlled E11.9 Insulin: No - blood sugar diagnostic (BLOOD GLUCOSE TEST) test strip Test blood sugar(s) 1 times daily. Dx: Other DM Code R73.03 Insulin: No - CPAP CPAP 7 cm H2O. Formal mask refitting AND work with RT, chin strap, head gear, humidity, heated tubing(GWENDOLYN), lifetime supplies. G47.33 ELLEN - blood sugar diagnostic (BLOOD GLUCOSE TEST) test strip Test blood sugar(s) 1 times daily. Dx: Type 2 DM - Controlled E11.9 Insulin: No Meds Comments as of 05/21/2023: 09/17/18 Severe interaction identified between warfarin and Prozac. Notified Dr. Avtar Robertson of same. Leatha Narvaez RN Problem List As Of Date 08/24/2024 Noted Resolved SUPERVIS OTHER NORMAL PREG [Z34.80] 08/07/2005 01/14/2006 THREAT LABOR NEC-UNSPEC [O47.9] 11/29/2005 01/14/2006 SUPERVIS OTHER NORMAL PREG [Z34.80] 12/07/2007 06/19/2008 Unspecified high-risk [O09.90] 06/19/2008 04/12/2012 Tobacco abuse [Z72.0] 04/12/2012 07/03/2014 Obesity (BMI 30.0-34.9) [E66.811] 04/12/2012 08/19/2017 Dysthymic disorder [F34.1] 04/12/2012 Anxiety [F41.9] 04/12/2012 Rebound headache [G44.40] 04/12/2012 01/22/2015 NO SHOW [990941] 01/12/2013 07/03/2014 Microscopic hematuria [R31.29] 02/21/2013 Dysuria [R30.0] 02/21/2013 Generalized abdominal pain [R10.84] 02/21/2013 07/03/2014 Pelvic pain complicating [O26.899, R1*02/21/2013 07/05/2013 Frequency of urination [R35.0] 02/21/2013 07/03/2014 Anxiety in , antepartum [O99.340, F41.*05/26/2014 01/22/2015 Poor support system complicating [O09*05/26/2014 01/22/2015 Tobacco use during [O99.330] 05/26/2014 01/22/2015 Obesity complicating [O99.210] 05/26/2014 01/22/2015 Request for sterilization [Z30.2] 06/30/2014 (more content not included)... Normal [facility] CBC W/Diff, Automatedon 01- 0-2024 Absolute Lymph 4.97 X10 3/uL High 0.83-4.51 [facility] Comment on above: Performed By: #### L 500.4100, L501.9520, L500.4050, L502.0500, L100.0100 #### [facility] [address] [place], [address] Absolute Neut 7.0 X10 3/uL Normal 2.0-7.7 [facility] Comment on above: Performed By: #### L 500.4100, L501.9520, L500.4050, L502.0500, L100.0100 #### [facility] [address] [place], [address] Basophils/100 WBC (Bld) 0.5 % Normal 0-1 [facility] Comment on above: Performed By: #### L 500.4100, L501.9520, L500.4050, L502.0500, L100.0100 #### [facility] [address] [place], [address] Eosinophils/100 WBC (Bld) 2.0 % Normal 0-5 [facility] Comment on above: Performed By: #### L 500.4100, L501.9520, L500.4050, L502.0500, L100.0100 #### [facility] [address] [place], [address] Erythrocyte distribution width (RBC) [Ratio] 13.9 % Normal 11.6-14.6 [facility] Comment on above: Performed By: #### L 500.4100, L501.9520, L500.4050, L502.0500, L100.0100 #### [facility] [address] [place], [address] Hematocrit (Bld) [Volume fraction] 45.7 % Normal 37-47 [facility] Comment on above: Performed By: #### L 500.4100, L501.9520, L500.4050, L502.0500, L100.0100 #### [facility] [address] [place], [address] Hemoglobin (Bld) [Mass/Vol] 14.8 g/dL Normal 12.0-15.0 [facility] Comment on above: Performed By: #### L 500.4100, L501.9520, L500.4050, L502.0500, L100.0100 #### [facility] [address] [place], [address] IG% 1.800 High 0.0-0.9 [facility] Comment on above: Result Comment: IG% - Immature Granulocytes (promyelocytes, myelocytes and metamyelocytes) > 1% indicates that a LEFT SHIFT is Present. Performed By: #### L 500.4100, L501.9520, L500.4050, L502.0500, L100.0100 #### [facility] [address] [place], [address] Lymphocytes/100 WBC (Bld) 37.9 % Normal 19-41 [facility] Comment on above: Performed By: #### L 500.4100, L501.9520, L500.4050, L502.0500, L100.0100 #### [facility] [address] [place], [address] MCH (RBC) [Entitic mass] 29.4 pg Normal 27.0-32.0 [facility] Comment on above: Performed By: #### L 500.4100, L501.9520, L500.4050, L502.0500, L100.0100 #### [facility] [facility] [address] [place], [address] MCHC (RBC) [Mass/Vol] 32.4 g/dL Normal 32-36 [facility] Comment on above: Performed By: #### L 500.4100, L501.9520, L500.4050, L502.0500, L100.0100 #### [facility] [address] [place], [address] MCV (RBC) [Entitic vol] 90.9 fL Normal 81-99 [facility] Comment on above: Performed By: #### L 500.4100, L501.9520, L500.4050, L502.0500, L100.0100 #### [facility] [address] [place], [address] Monocytes/100 WBC (Bld) 4.5 % Normal 0-10 [facility] Comment on above: Performed By: #### L 500.4100, L501.9520, L500.4050, L502.0500, L100.0100 #### [facility] [address] [place], [address] Neutrophils/100 WBC (Bld) 53.3 % Normal 47-70 [facility] Comment on above: Performed By: #### L 500.4100, L501.9520, L500.4050, L502.0500, L100.0100 #### [facility] [address] [place], [address] Nucleated RBC (Bld) [#/Vol] 0 10*3/uL Normal 0-5 [facility] Comment on above: Performed By: #### L 500.4100, L501.9520, L500.4050, L502.0500, L100.0100 #### [facility] [address] [place], [address] Platelet mean volume (Bld) [Entitic vol] 10.4 fL Normal 6.2-12.0 [facility] Comment on above: Performed By: #### L 500.4100, L501.9520, L500.4050, L502.0500, L100.0100 #### [facility] [address] [place], [address] Platelets (Bld) [#/Vol] 326 10*3/uL Normal 150-450 [facility] Comment on above: Performed By: #### L 500.4100, L501.9520, L500.4050, L502.0500, L100.0100 #### [facility] [address] [place], [address] RBC (Bld) [#/Vol] 5.03 10*6/uL Normal 4.2-5.4 [facility] Comment on above: Performed By: #### L 500.4100, L501.9520, L500.4050, L502.0500, L100.0100 #### [facility] [address] [place], [address] RDW SD 46.4 fl High 35.1-43.9 [facility] Comment on above: Performed By: #### L 500.4100, L501.9520, L500.4050, L502.0500, L100.0100 #### [facility] [address] [place], [address] WBC (Bld) [#/Vol] 13.1 10*3/uL High 4.4-11.0 [facility] Comment on above: Performed By: #### L 500.4100, L501.9520, L500.4050, L502.0500, L100.0100 #### [facility] [address] [place], [address] Comprehensive Metabolic [facility] 04-21-2024 Albumin [Mass/Vol] 3.5 g/dL Normal 3.2-5.0 [facility] Comment on above: Performed By: #### L 500.4100, L501.9520, L500.4050, L502.0500, L100.0100 #### [facility] [address] [place], [address] Albumin/Globulin [Mass ratio] 1.0 {ratio} Normal 0.9-2.4 [facility] Comment on above: Performed By: #### L 500.4100, L501.9520, L500.4050, L502.0500, L100.0100 #### [facility] [address] [place], [address] ALK P 92 U/L Normal 45-117 [facility] Comment on above: Performed By: #### L 500.4100, L501.9520, L500.4050, L502.0500, L100.0100 #### [facility] [address] [place], [address] ALT [Catalytic activity/Vol] 33 U/L Normal 13-56 [facility] Comment on above: Performed By: #### L 500.4100, L501.9520, L500.4050, L502.0500, L100.0100 #### [facility] [address] [place], [address] AST [Catalytic activity/Vol] 23 U/L Normal 15-37 [facility] Comment on above: Performed By: #### L 500.4100, L501.9520, L500.4050, L502.0500, L100.0100 #### [facility] [address] [place], [address] Bilirubin [Mass/Vol] 0.30 mg/dL Normal 0.20-1.00 [facility] Comment on above: Result Comment: For patients on eltrombopag therapy, use of Dimension [place] TBIL is not recommended. Performed By: #### L 500.4100, L501.9520, L500.4050, L502.0500, L100.0100 #### [facility] [address] [place], [address] BUN/CRE 10.4 RATIO Normal 10-20 [facility] Comment on above: Performed By: #### L 500.4100, L501.9520, L500.4050, L502.0500, L100.0100 #### [facility] [address] [place], [address] CA,Total 9.3 mg/dL Normal 8.5-10.1 [facility] Comment on above: Performed By: #### L 500.4100, L501.9520, L500.4050, L502.0500, L100.0100 #### [facility] [address] [place], [address] Chloride [Moles/Vol] 111 mmol/L High 98-107 [facility] Comment on above: Performed By: #### L 500.4100, L501.9520, L500.4050, L502.0500, L100.0100 #### [facility] [address] [place], [address] CO2 [Moles/Vol] 20.0 mmol/L Low 21.0-32.0 [facility] Comment on above: Performed By: #### L 500.4100, L501.9520, L500.4050, L502.0500, L100.0100 #### [facility] [address] [place], [address] Creatinine [Mass/Vol] 1.25 mg/dL High 0.55-1.02 [facility] Comment on above: Result Comment: The validity of the calculated GFR GFRAA in patients over 70 years has not been determined. Clinical correlation is essential. Performed By: #### L 500.4100, L501.9520, L500.4050, L502.0500, L100.0100 #### [facility] [address] [place], [address] EST GFR - AA 61 mL/min Normal >60 [facility] Comment on above: Result Comment: Afri can Moldovan GFR Calc Performed By: #### L 500.4100, L501.9520, L500.4050, L502.0500, L100.0100 #### [facility] [address] [place], [address] GAP 8 Normal 5-15 [facility] Comment on above: Performed By: #### L 500.4100, L501.9520, L500.4050, L502.0500, L100.0100 #### [facility] [address] [place], [address] GFR/1.73 sq M.predicted among non-blacks MDRD (S/P/Bld) [Vol rate/Area] 50 mL/min/{1.73_m2} Low >60 [facility] Comment on above: Result Comment: Non- GFR Calc Performed By: #### L 500.4100, L501.9520, L500.4050, L502.0500, L100.0100 #### [facility] [address] [place], [address] Globulin (S) [Mass/Vol] 3.6 g/dL Normal 2.2-4.2 [facility] Comment on above: Performed By: #### L 500.4100, L501.9520, L500.4050, L502.0500, L100.0100 #### [facility] [address] [place], [address] Glucose [Mass/Vol] 152 mg/dL High 74-106 [facility] Comment on above: Result Comment: Fast ing Glucose result greater than or equal to 126 mg/dL suggests DIABETES MELLITUS per A.D.A. criteria. Performed By: #### L 500.4100, L501.9520, L500.4050, L502.0500, L100.0100 #### [facility] [address] [place], [address] Potassium [Moles/Vol] 4.0 mmol/L Normal 3.5-5.1 [facility] Comment on above: Performed By: #### L 500.4100, L501.9520, L500.4050, L502.0500, L100.0100 #### [facility] [address] [place], [address] Sodium [Moles/Vol] 139 mmol/L Normal 136-145 [facility] Comment on above: Performed By: #### L 500.4100, L501.9520, L500.4050, L502.0500, L100.0100 #### [facility] [address] [place], [address] T PROT 7.1 g/dL Normal 6.4-8.2 [facility] Comment on above: Performed By: #### L 500.4100, L501.9520, L500.4050, L502.0500, L100.0100 #### [facility] [address] [place], [address] Urea nitrogen [Mass/Vol] 13 mg/dL Normal 7-18 [facility] Comment on above: Performed By: #### L 500.4100, L501.9520, L500.4050, L502.0500, L100.0100 #### [facility] [address] [place], [address] Lipid Profileon 04-21-2024 Cholesterol [Mass/Vol] 194 mg/dL Normal 200 [facility] Comment on above: Result Comment: <200 mg/dL Desirable 200-240 mg/dL Borderline >240 mg/dL High Risk Performed By: #### L 500.4100, L501.9520, L500.4050, L502.0500, L100.0100 #### [facility] [address] [place], [address] Cholesterol in HDL [Mass/Vol] 35 mg/dL Low [facility] Comment on above: Result Comment: The drugs N-Acetylcysteine and Metamizole may falsely depress this assay. Reference Range HDL <40 mg/dL Low HDL Cholesterol HDL >or= 60 mg/dL High HDL Cholesterol Performed By: #### L 500.4100, L501.9520, L500.4050, L502.0500, L100.0100 #### [facility] [address] [place], [address] LDL TNP Normal 0-130 [facility] Comment on above: Performed By: #### L 500.4100, L501.9520, L500.4050, L502.0500, L100.0100 #### [facility] [address] [place], [address] Triglyceride [Mass/Vol] 414 mg/dL High [facility] Comment on above: Result Comment: The drugs N-Acetylcysteine and Metamizole may falsely depress this assay. TRIGLYCERIDE IS GREATER THAN 400 mg/dL. LDL RESULT IS INVALID AND WILL NOT BE REPORTED. Serum Triglycerides Reference Interval Normal <150 mg/dL Borderline high 150 - 199 mg/dL High 200 - 499 mg/dL Very High > or = 500 mg/dL Performed By: #### L 500.4100, L501.9520, L500.4050, L502.0500, L100.0100 #### [facility] [address] [place], [address] VLDL TNP Normal 5-40 [facility] Comment on above: Performed By: #### L 500.4100, L501.9520, L500.4050, L502.0500, L100.0100 #### [facility] [address] [place], [address] Microalbumin,Random Urineon 04-21-2024 MICROALBUMIN,UR 9.2 mg/L Normal NO RANGE EST. [facility] Comment on above: Performed By: #### L 500.4100, L501.9520, L500.4050, L502.0500, L100.0100 #### [facility] [address] [place], [address] Thyroid Stim Hormone (TSH)on 04-21-2024 TSH 1.410 uIU/mL Normal 0.358-3.740 [facility] Comment on above: Performed By: #### L 500.4100, L501.9520, L500.4050, L502.0500, L100.0100 #### [facility] [address] [place], [address] CNOVon 02-24-2024 CNOV Office Visit (UCWSTR ) TRENAJune ([id number]) 1985 F Date Time Provider Department 02/24/24 11:15 AM LELA MCDANIEL [facility] During your visit today, we recorded the following information about you: Temperature Pulse Respiration Blood pressure 97.8 degrees 86/minute 18/minute 118/76 Weight 114.2 kg Lela Mcdaniel APRN.CNP 02/24/2024 11:48 AM Signed Subjective HPI HPI June Trena is a 38 year old female who presents today for CC of cough, sinus pressure, ear pain. This started 3-4 days ago/worsening. Has tried otc medication for relief. Symptoms are worsened by nothing. Risk factors multiple exposures to pneumonia at home. smoker. .Patient presents with: Cough: Cough, congestion, bilateral ear pain and ST x 3 days PAST MEDICAL HISTORY Diagnosis Date Acalculous cholecystitis SANTANA (acute kidney injury) ([facility]) 08/05/2018 Anxiety DVT (deep venous thrombosis) ([facility]) 2018 Dysthymic disorder Depression (non-psychotic) Fatty liver 03/30/2020 Gestational diabetes mellitus, class A1 11/17/2016 gestational hypertension History of tobacco use 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 Hypertension Iron deficiency anemia Neuropathy bilateral lower ext Obesity (BMI 30-39.9) ELLEN (obstructive sleep apnea) 09/11/2021 Pap smear abnormality of cervix with ASCUS favoring benign 02/05/2015 Pneumonia 2019 MSSA, pseudomonas depression Type 2 diabetes mellitus without complication, without long-term current use of insulin ([facility]) 03/13/2020 PAST SURGICAL HISTORY Procedure Laterality Date DILATION AND CURETTAGE DXAND/THER NONOBSTETRIC 2004 Dilation AND curettage MIDLINE INSERTION/CONSULT 09/16/2018 TUBAL LIGATION 2018 w/ Filshie clips VAGINAL HYSTERECTOMY UTERUS 250 GM/< 07/15/2018 [facility] ALLERGIES Amoxicillin, Bactrim [Sulfamethoxazole-Trim ethoprim], Celexa [Citalopram], Heparin, and Bleach (Sodium Hypochlorite) MEDICATIONS FARXIGA 10 mg tablet Take 1 tablet by mouth every afternoon. QUEtiapine (SEROQUEL) 50 mg tablet Take 1 tablet by mouth daily at bedtime. topiramate (TOPAMAX) 50 mg tablet Take 1 tablet by mouth once daily. gabapentin (NEURONTIN) 400 mg capsule Take one capsule in the morning, and 3 capsules in the evening. fluticasone (FLONASE) 50 mcg/actuation nasal spray Use 2 Sprays in each nostril once daily. Rinse mouth after use. dulaglutide (TRULICITY) 1.5 mg/0.5 mL pen injector Inject 1.5 mg subcutaneously one time a week. Inject once per week. Discard Pen After metoprolol tartrate, short acting, (LOPRESSOR) 25 mg tablet Take 0.5 tablets by mouth every 12 hours. riboflavin, vitamin B2, 400 mg tab Take 1 tablet by mouth once daily. ferrous sulfate 325 mg (65 mg iron) tablet Take 1 tablet by mouth twice daily. famotidine (PEPCID) 20 mg tablet Take 1 tablet by mouth twice daily as needed. albuterol HFA (PROVENTIL HFA, VENTOLIN HFA) 90 mcg/actuation inhaler Inhale 2 Puffs as instructed every 4 hours as needed for wheezing/shortness of breath. fluticasone (FLONASE) 50 mcg/actuation nasal spray Use 2 Sprays in each nostril once daily. Rinse mouth after use. lactobacillus rhamnosus (CULTURELLE) 10 billion cell capsule Take 1 capsule by mouth once daily. cetirizine (ZYRTEC) 10 mg tablet Take 1 tablet by mouth once daily. magnesium oxide (MAG-OX) 400 mg (241.3 mg magnesium) tablet Take 1 tablet by mouth once daily. atorvastatin (LIPITOR) 40 mg tablet Take 1 tablet by mouth daily at bedtime. For cholesterol. fenofibrate nanocrystallized (TRICOR) 145 mg tablet Take 1 tablet by mouth once daily. Lancets lancets Test blood sugar(s) 1 times daily. Dx: Type 2 DM - Controlled E11.9 Insulin: No blood sugar diagnostic (BLOOD GLUCOSE TEST) test strip Test blood sugar(s) 1 times daily. Dx: Other DM Code R73.03 Insulin: No CPAP CPAP 7 cm H2O. Formal mask refitting AND work with RT, chin strap, head gear, humidity, heated tubing(GWENDOLYN), lifetime supplies. G47.33 ELLEN blood sugar diagnostic (BLOOD GLUCOSE TEST) test strip Test blood sugar(s) 1 times daily. Dx: Type 2 DM - Controlled E11.9 Insulin: No doxycycline (VIBRA-TABS) 100 mg tablet Take 1 tablet by mouth two times a day for 7 days. predniSONE (DELTASONE) 20 mg tablet Take 2 tablets by mouth once daily for 5 days. fluticasone (FLONASE) 50 mcg/actuation nasal spray Use 2 Sprays in each nostril once daily. Rinse mouth after use. FLUoxetine (PROZAC) 40 mg capsule Take 1 capsule by mouth once daily. Take with 20 mg dose. FLUoxetine (PROZAC) 20 mg capsule Take 1 capsule by mouth once daily. Take with 40 mg dose. FAMILY HISTORY Problem Relation Age of Onset Anxiety disorder Mother Thyroid Mother Hypothyroidism Diabetes Mother other (cellulitis) Mother Bipolar disorder Sister Schizophrenia Sister Hypertension Maternal Aunt Diabetes Maternal Grandfather Hypertension Matern (more content not included)... Normal [facility] XR FOOT MINIMUM 3 VIEWS RIG Ton 12-21-2023 XR FOOT MINIMUM 3 VIEWS RIGHT ORIGINAL EXAMINATION: THREE XRAY VIEWS OF THE RIGHT FOOT12/21/2023 9:17 am COMPARISON: May 19, 2021 HISTORY: ORDERING SYSTEM PROVIDED HISTORY: RT FOOT PAIN, SWELLING FOR A COUPLE OF DAYS. NKI pain FINDINGS: No new acute fracture or joint dislocation is seen. The previously suspected anterior calcaneus fracture is difficult to visualize. Joint spaces are maintained. There is an ossicle near the medial malleolus. Minor spurring is present at the dorsal navicular bone. There is an enthesophyte near the Achilles tendon insertion. No unusual soft tissue calcifications are seen. IMPRESSION: The previously suspected anterior calcaneus fracture is difficult to visualize. No new acute fracture or joint dislocation is seen. Minor spurring at the dorsal navicular bone. Ossicle near the medial malleolus. Interpreted by: Kashif Cao MD Preliminary Report By: Kashif Cao MD Electronically signed By Kashif Cao MD Dictated Date: 12/21/2023 9:34:07 AM Prelim Date: 12/21/2023 9:46:44 AM Sign Date: 12/21/2023 9:46:44 AM Ordering Provider: BLAIR ALAS [facility] STREP A MOLECULAR (POC)on Procedural Control Valid [facility] Strep A (POCT) Negative Negative [facility] UA DIP, URINE (POC)on 2023 BILIRUBIN UA (POCT) Negative Negative [facility] CLARITY UA (POCT) Clear [facility] COLOR UA (POCT) Yellow [facility] GLUCOSE UA (POCT) Negative Negative mg/dL [facility] Hemoglobin Ql (U) Negative Negative [facility] KETONE UA (POCT) Negative Negative mg/dL [facility] LEUKOCYTES UA (POCT) Negative Negative [facility] NITRITE UA (POCT) Negative Negative [facility] PH UA (POCT) 6.0 4.5 - 8.0 [facility] Protein Ql (U) Negative Negative mg/dL [facility] SPECIFIC GRAVITY UA (POCT) 1.015 1.005 - 1.030 [facility] UROBILINOGEN UA (POCT) 0.2 Esperanza l E.U./dL [facility] Location:[address], [place], [address] [facility] POINT OF CARE [facility] UA DIP, URINE (POC)on 2023 BILIRUBIN UA (POCT) Negative Negative [facility] CLARITY UA (POCT) Clear [facility] COLOR UA (POCT) Yellow [facility] GLUCOSE UA (POCT) Negative Negative mg/dL [facility] Hemoglobin Ql (U) Negative Negative [facility] KETONE UA (POCT) Negative Negative mg/dL [facility] LEUKOCYTES UA (POCT) Negative Negative [facility] NITRITE UA (POCT) Negative Negative [facility] PH UA (POCT) 7.5 4.5 - 8.0 [facility] Protein Ql (U) Negative Negative mg/dL [facility] SPECIFIC GRAVITY UA (POCT) 1.020 1.005 - 1.030 [facility] UROBILINOGEN UA (POCT) 1.0 E.U./dL [place]peranza l E.U./dL [facility] Absolute lymphocyte countOrd ered By: Radha Rodríguez on 03-04-2023 Lymphocytes Auto (Unsp spec) [#/Vol] 9.11 10*3/uL 0.83-4.51 [facility] Basophil percentageOrdered B y: Radha Rodríguez on 03-04-2023 Basophil percentage Not Reportable [facility] Chloride [Moles/Vol] 110 mmol/L 98-107 [facility] Glucose [Mass/Vol] 92 mg/dL 74-106 [facility] Neutrophils (Bld) [#/Vol] 12.7 10*3/uL 2.0-7.7 [facility] Potassium [Moles/Vol] 3.7 mmol/L 3.5-5.1 [facility] Sodium [Moles/Vol] 140 mmol/L 136-145 [facility] WBC (Bld) [#/Vol] 22.2 10*3/uL 4.4-11.0 [facility] Blood basophils/100 leukocyt esOrdered By: Radha Rodríguez on 03-04-2023 Basophils/100 WBC (Bld) 1 % 0-1 [facility] Blood erythrocytes count (nu mber/volume)Ordered By: Radha Rodríguez on 03-04-2023 RBC (Bld) [#/Vol] 4.41 10*6/uL 4.2-5.4 [facility] Blood hemoglobin measurement (mass/volume)Ordered By: Radha Rodríguez on 03-04-2023 Hemoglobin (Bld) [Mass/Vol] 12.8 g/dL 12.0-15.0 [facility] Blood lymphocytes/100 leukoc ytesOrdered By: Radha Rodríguez on 03-04-2023 Lymphocytes/100 WBC (Bld) 41 % 19-41 [facility] Blood manual differential co mment interpretation (narrative result)Ordered By: Radha Rodríguez on 03-04-2023 Manual differential comment Hussein (Bld) [Interp] MANUAL DIFF [facility] Blood metamyelocytes/100 shae kocytesOrdered By: Radha Rodríguez on 03-04-2023 Metamyelocytes/100 WBC (Bld) 7 % 0-1 [facility] Blood monocytes/100 leukocyt esOrdered By: Radha Rodríguez on 03-04-2023 Monocytes/100 WBC (Bld) 1 % 0-10 [facility] Blood platelet adequacy dete ction by light microscopyOrdered By: Radha Rodríguez on 03-04-2023 Platelets LM Ql (Bld) SLT INC ADEQ [facility] Blood platelet mean volumeOr dered By: Radha Rodríguez on 03-04-2023 Platelet mean volume (Bld) [Entitic vol] 9.9 fL 6.2-12.0 [facility] Blood segmented neutrophils/ 100 leukocytesOrdered By: Radha Rodríguez on 03-04-2023 Segmented neutrophils/100 WBC (Bld) 49 % 47-70 [facility] Determination of erythrocyte mean corpuscular volume (MCV)Ordered By: Radha Rodríguez on 03-04-2023 MCV (RBC) [Entitic vol] 93.2 fL 81-99 [facility] Hematocrit Auto (Bld) [Volum e fraction]Ordered By: Radha Rodríguez on 03-04-2023 Hematocrit (Bld) [Volume fraction] 41.1 % 37-47 [facility] - Chemistry and C hemistry - challengeOrdered By: Radha Rodríguez on 03-04-2023 CO2 [Moles/Vol] 24.0 mmol/L 21.0-32.0 [facility] Urea nitrogen/Creatinine [Mass ratio] 24.0 mg/mg 10-20 [facility] - Hematology and Cell countsOrdered By: Radha Rodríguez on 03-04-2023 Erythrocyte distribution width (RBC) [Entitic vol] 47.1 fL 35.1-43.9 [facility] Erythrocyte distribution width (RBC) [Ratio] 13.9 % 11.6-14.6 [facility] MCH (RBC) [Entitic mass] 29.0 pg 27.0-32.0 [facility] Myelocytes/100 WBC (Bld) 1 % 0-0 [facility] MCHC Auto (RBC) [Mass/Vol]Or dered By: Radha Rodríguez on 03-04-2023 MCHC (RBC) [Mass/Vol] 31.1 g/dL 32-36 [facility] No Panel InformationOrdered By: Radha Rodríguez on 03-04-2023 Estimated Creatinine Clearance Calc 73.45 ml/min [facility] Estimated GFR (MDRD) Amer 80 mL/min >60 [facility] Comment on above: GFR Calc Estimated GFR (MDRD) Non-Af Amer 66 mL/min >60 [facility] Comment on above: Non- GFR Calc Platelets bldOrdered By: Hannah Rodríguez on 03-04-2023 Platelets (Bld) [#/Vol] 455 10*3/uL 150-450 [facility] RBC morphologyOrdered By: Erna Rodríguez on 03-04-2023 RBC morphology finding Nom (Bld) NORM C+C NORMAL NORM C&C [facility] Review by pathologistOrdered By: Radha Rodríguez on 03-04-2023 Pathologist review Hussein (Unsp spec) [Interp] Nadya falcon [facility] Pathologist review Hussein (Unsp spec) [Interp] Reviewed [facility] Comment on above: Previous reported re sult: Nadya falcon Edited by: AYAAN on 03/05/23:0847Leukocytosis with left shift.Thrombocytosis.Clinical correlation necessary.Domenico Torres M.D. 03/05/23 AMENDED REPORT 03/05/23 0847 PATH REV previously reported as: Nadya falcon Serum or plasma calcium mariana urement (mass/volume)Ordered By: Radha Rodríguez on 03-04-2023 Calcium [Mass/Vol] 8.5 mg/dL 8.5-10.1 [facility] Serum or plasma creatinine m easurement (mass/volume)Ordered By: Radha Rodríguez on 03-04-2023 Creatinine [Mass/Vol] 1.00 mg/dL 0.55-1.02 [facility] Comment on above: The validity of the calculated GFR & GFRAA in patients over 70 years has not been determined. Clinical correlation is essential. Serum or plasma urea nitroge n measurement (mass/volume)Ordered By: Radha Rodríguez on 03-04-2023 Urea nitrogen [Mass/Vol] 24 mg/dL 7-18 [facility] Thin prep Papanicolaou smear with manual screeningOrdered By: Radha Rodríguez on 03-04-2023 Thin prep Papanicolaou smear with manual screening 6 5-15 [facility] [facility] Total cell countOrdered By: Radha Rodríguez on 03-04-2023 Cells counted Molgen (Bld/Tiss) [#] 100 MANUAL DIFF [facility] Blood eosinophils/100 leukoc ytesOrdered By: Radha Rodríguez on 03-03-2023 Eosinophils/100 WBC (Bld) 1 % 0-5 [facility] No Panel InformationOrdered By: Radha Rodríguez on 03-03-2023 Reactive Lymphocytes 2+ [facility] Basophil percentageOrdered B y: Asaf Bernal on 03-01-2023 Basophils/100 WBC (Bld) 0.6 % 0-1 [facility] Eosinophils/100 WBC (Bld) 0.2 % 0-5 [facility] Blood lymphocytes/100 leukoc ytesOrdered By: Asaf Bernal on 03-01-2023 Lymphocytes/100 WBC (Bld) 17.7 % 19-41 [facility] Blood monocytes/100 leukocyt esOrdered By: Asaf Bernal on 03-01-2023 Monocytes/100 WBC (Bld) 1.5 % 0-10 [facility] Glucose Glucometer (BldC) [M ass/Vol]Ordered By: Asaf Bernal on 03-01-2023 Glucose [Mass/Vol] 103 mg/dL 74-106 [facility] Comment on above: MANAGEMENT OF PATIEN T CARE PER NURSING PROTOCOL Laboratory - Hematology and Cell countsOrdered By: Asaf Bernal on 03-01-2023 Immature granulocytes/100 WBC (Bld) 2.600 % 0.0-0.9 [facility] Comment on above: IG% - Immature Granu locytes (promyelocytes, myelocytes and metamyelocytes) > 1% indicates that a LEFT SHIFT is Present. Nucleated RBC/100 WBC (Bld) [Ratio] 0 % 0-5 [facility] Basophil percentageOrdered B y: Asaf Bernal on 02-28-2023 Basophil percentage 3.5 mg/dL 2.5-4.9 [facility] Bilirubin [Mass/Vol] 0.40 mg/dL 0.20-1.00 [facility] Comment on above: For patients on eltr ombopag therapy, use of Dimension [place] TBIL is not recommended. Protein [Mass/Vol] 7.1 g/dL 6.4-8.2 [facility] Direct bilirubinOrdered By: Asaf Bernal on 02-28-2023 Bilirubin.direct [Mass/Vol] 0.17 mg/dL 0.00-0.30 [facility] Laboratory - Chemistry and C hemistry - challengeOrdered By: Asaf Bernal on 02-28-2023 ALP [Catalytic activity/Vol] 49 U/L 45-117 [facility] ALT [Catalytic activity/Vol] 18 U/L 13-56 [facility] Globulin (S) [Mass/Vol] 4.4 g/dL 2.2-4.2 [facility] Magnesium [Mass/Vol] 2.4 mg/dL 1.6-2.6 [facility] Serum or plasma albumin mariana urement (mass/volume)Ordered By: Asaf Bernal on 02-28-2023 Albumin [Mass/Vol] 2.7 g/dL 3.2-5.0 [facility] Thin prep Papanicolaou smear with manual screeningOrdered By: Asaf Bernal on 02-28-2023 Thin prep Papanicolaou smear with manual screening 34 U/L 15-37 [facility] Assessment of wrist artery p atency prior to arterial punctureOrdered By: Asaf Perez on 02-27-2023 Arterial patency Wrist artery --pre arterial puncture Positive [facility] Base excessOrdered By: Asaf Perez on 02-27-2023 Base excess Calc (BldV) [Moles/Vol] -6 mmol/L -2-2 [facility] Basophil percentageOrdered B y: Asaf Perez on 02-27-2023 Cholesterol [Mass/Vol] 129 mg/dL <200 [facility] Comment on above: <200 mg/dL Desirable 200-240 mg/dL Borderline >240 mg/dL High Risk Triglyceride [Mass/Vol] 210 mg/dL <199 [facility] Comment on above: The drugs N-Acetylcy steine and Metamizole may falsely depress this assay.Serum Triglycerides Reference Interval Normal <150 mg/dL Borderline high 150 - 199 mg/dL High 200 - 499 mg/dL Very High > or = 500 mg/dL Basophil percentage 18.5 mmol/L 22-26 [facility] Basophils/100 WBC (Bld) 91 % 95-99 [facility] Basophil percentageOrdered B y: Adithya Chan on 02-27-2023 Lactate [Moles/Vol] 1.5 mmol/L 0.4-2.0 [facility] CO2 (BldA) [Partial pressure ]Ordered By: Asaf Perez on 02-27-2023 CO2 (Bld) [Partial pressure] 27.0 mm[Hg] 35-45 [facility] Laboratory - Microbiology an d Antimicrobial susceptibilityOrdered By: Lupillo Jovel on 02-27-2023 SARS-CoV-2 (COVID-19) RNA LYN+probe Ql (Unsp spec) [facility] Laboratory - Microbiology an d Antimicrobial susceptibilityOrdered By: Adithya Chan on 02-27-2023 Bacteria identified Cx Nom (Bld) No growth in 5 days. [facility] No Panel InformationOrdered By: Asaf Perez on 02-27-2023 Methicillin-Resist S.aureus DNA PCR Negative Negative [facility] Thyroid Stimulating Hormone (TSH) 0.55 uIU/mL 0.358-3.74 [facility] Streptococcus pneumoniae Antigen (M [facility] Blood Gas Oxygen Percent 2.0 [facility] Blood Gas Sample Site L Radial [facility] Blood Gas Specimen Type ART [facility] Blood Gas Total CO2 19 mmol/L [facility] Blood Gas Vent Mode Not entered [facility] Oxygen Delivery Device Cannula [facility] Oxygen (BldA) [Partial press ure]Ordered By: Asaf Perez on 02-27-2023 Oxygen (Bld) [Partial pressure] 58 mmHG 75-100 [facility] Serum or plasma albumin/glob ulin mass ratioOrdered By: Asaf Perez on 12-08-2023 Albumin/Globulin [Mass ratio] 0.7 {ratio} 0.9-2.4 [facility] Serum or plasma cholesterol in HDL measurement (mass/volume)Ordered By: Asaf Perez on 02-27-2023 Cholesterol in HDL [Mass/Vol] 14 mg/dL >40 [facility] Comment on above: The drugs N-Acetylcy steine and Metamizole may falsely depress this assay. Reference Range HDL <40 mg/dL Low HDL Cholesterol HDL >or= 60 mg/dL High HDL Cholesterol Serum or plasma cholesterol in VLDL measurement (mass/volume)Ordered By: Asaf Perez on 02-27-2023 Cholesterol in VLDL [Mass/Vol] 42 mg/dL 5-40 [facility] Serum or plasma low density lipoprotein (LDL) cholesterol measurement (mass/volume)Ordered By: Asaf Perez on 02-27-2023 Cholesterol in LDL [Mass/Vol] 73 mg/dL 0-130 [facility] Urine Legionella pneumophila antigen detectionOrdered By: Asaf Perez on 02-27-2023 L. pneumophila Ag Ql (U) [facility] pH measurementOrdered By: Uli Perez on 02-27-2023 pH (Unsp spec) 7.44 [pH] 7.35-7.45 [facility] Absolute lymphocyte countOrd ered By: Adithya Chan on 02-26-2023 Lymphocytes Auto (Unsp spec) [#/Vol] 4.99 10*3/uL 0.83-4.51 [facility] Basophil percentageOrdered B y: Adithya Chan on 02-26-2023 Basophils/100 WBC (Bld) 0.3 % 0-1 [facility] Chloride [Moles/Vol] 107 mmol/L 98-107 [facility] Eosinophils/100 WBC (Bld) 0.7 % 0-5 [facility] Glucose [Mass/Vol] 114 mg/dL 74-106 [facility] Comment on above: Fasting Glucose resu lt from 100 to 125 mg/dL suggests IMPAIRED HOMEOSTASIS per A.D.A. criteria. Neutrophils (Bld) [#/Vol] 13.5 10*3/uL 2.0-7.7 [facility] Neutrophils/100 WBC (Bld) 69.2 % 47-70 [facility] Potassium [Moles/Vol] 3.7 mmol/L 3.5-5.1 [facility] Sodium [Moles/Vol] 136 mmol/L 136-145 [facility] WBC (Bld) [#/Vol] 19.5 10*3/uL 4.4-11.0 [facility] Blood erythrocytes count (nu mber/volume)Ordered By: Adithya Chan on 02-26-2023 RBC (Bld) [#/Vol] 4.62 10*6/uL 4.2-5.4 [facility] Blood hemoglobin measurement (mass/volume)Ordered By: Adithyanajma Chan on 02-26-2023 Hemoglobin (Bld) [Mass/Vol] 13.6 g/dL 12.0-15.0 [facility] Blood lymphocytes/100 leukoc ytesOrdered By: Adithya Chan on 02-26-2023 Lymphocytes/100 WBC (Bld) 25.6 % 19-41 [facility] Blood monocytes/100 leukocyt esOrdered By: Adithyanajma Chan on 02-26-2023 Monocytes/100 WBC (Bld) 3.4 % 0-10 [facility] Blood platelet mean volumeOr dered By: Adithya Chan on 02-26-2023 Platelet mean volume (Bld) [Entitic vol] 10.4 fL 6.2-12.0 [facility] Determination of erythrocyte mean corpuscular volume (MCV)Ordered By: Adithya Chan on 02-26-2023 MCV (RBC) [Entitic vol] 89.6 fL 81-99 [facility] Hematocrit Auto (Bld) [Volum e fraction]Ordered By: Adithya Chan on 02-26-2023 Hematocrit (Bld) [Volume fraction] 41.4 % 37-47 [facility] Laboratory - Chemistry and C hemistry - challengeOrdered By: Adithya Chan on 02-26-2023 CO2 [Moles/Vol] 21.0 mmol/L 21.0-32.0 [facility] Urea nitrogen/Creatinine [Mass ratio] 13.4 mg/mg 10-20 [facility] Laboratory - Hematology and Cell countsOrdered By: Adithya Chan on 02-26-2023 Erythrocyte distribution width (RBC) [Entitic vol] 45.1 fL 35.1-43.9 [facility] Erythrocyte distribution width (RBC) [Ratio] 13.8 % 11.6-14.6 [facility] Immature granulocytes/100 WBC (Bld) 0.800 % 0.0-0.9 [facility] Comment on above: IG% - Immature Granu locytes (promyelocytes, myelocytes and metamyelocytes) > 1% indicates that a LEFT SHIFT is Present. MCH (RBC) [Entitic mass] 29.4 pg 27.0-32.0 [facility] Nucleated RBC/100 WBC (Bld) [Ratio] 0 % 0-5 [facility] MCHC Auto (RBC) [Mass/Vol]Or dered By: Adithya Chan on 02-26-2023 MCHC (RBC) [Mass/Vol] 32.9 g/dL 32-36 [facility] No Panel InformationOrdered By: Adithya hCan on 02-26-2023 Estimated Creatinine Clearance Calc 51.72 ml/min [facility] Estimated GFR (MDRD) Amer 53 mL/min >60 [facility] Comment on above: GFR Calc Estimated GFR (MDRD) Non-Af Amer 44 mL/min >60 [facility] Comment on above: Non- GFR Calc Platelets bldOrdered By: Adithya Chan on 02-26-2023 Platelets (Bld) [#/Vol] 265 10*3/uL 150-450 [facility] Serum or plasma calcium mariana urement (mass/volume)Ordered By: Adithya Chan on 02-26-2023 Calcium [Mass/Vol] 8.4 mg/dL 8.5-10.1 [facility] Serum or plasma creatinine m easurement (mass/volume)Ordered By: Adithya Chan on 02-26-2023 Creatinine [Mass/Vol] 1.42 mg/dL 0.55-1.02 [facility] Comment on above: The validity of the calculated GFR & GFRAA in patients over 70 years has not been determined. Clinical correlation is essential. Serum or plasma urea nitroge n measurement (mass/volume)Ordered By: Adithya Chan on 02-26-2023 Urea nitrogen [Mass/Vol] 19 mg/dL 7-18 [facility] Thin prep Papanicolaou smear with manual screeningOrdered By: Adithya Chan on 02-26-2023 Thin prep Papanicolaou smear with manual screening 8 -15 [facility] STREP A MOLECULAR (POC)on Procedural Control Valid [facility] Strep A (POCT) Negative Negative [facility] UA DIP, URINE (POC)on 2022 BILIRUBIN UA (POCT) Negative Negative [facility] CLARITY UA (POCT) Clear [facility] COLOR UA (POCT) Yellow [facility] GLUCOSE UA (POCT) Negative Negative mg/dL [facility] HEMOGLOBIN/BLOOD UA (POCT) Negative Negative [facility] KETONE UA (POCT) Negative Negative mg/dL [facility] LEUKOCYTES UA (POCT) Negative Negative [facility] NITRITE UA (POCT) Negative Negative [facility] PH UA (POCT) 6.0 4.5 - 8.0 [facility] Protein Ql (U) Negative Negative mg/dL [facility] SPECIFIC GRAVITY UA (POCT) 1.025 1.005 - 1.030 [facility] UROBILINOGEN UA (POCT) 0.2 E.U./dL [place] E.U./dL [facility] UA DIP, URINE (POC)on 2022 BILIRUBIN UA (POCT) Negative Negative [facility] CLARITY UA (POCT) Clear [facility] COLOR UA (POCT) Yellow [facility] GLUCOSE UA (POCT) Negative Negative mg/dL [facility] HEMOGLOBIN/BLOOD UA (POCT) Negative Negative [facility] KETONE UA (POCT) Negative Negative mg/dL [facility] LEUKOCYTES UA (POCT) Negative Negative [facility] NITRITE UA (POCT) Negative Negative [facility] PH UA (POCT) 7.0 4.5 - 8.0 [facility] Protein Ql (U) Negative Negative mg/dL [facility] SPECIFIC GRAVITY UA (POCT) 1.020 1.005 - 1.030 [facility] UROBILINOGEN UA (POCT) 0.2 E.U./dL [place] E.U./dL [facility] HEMOGLOBIN A1C (POC)on 04-14 HbA1c (Bld) [Mass fraction] 6.6 % Abnormal 4.2 - 5.6 % [facility] STREP A MOLECULAR (POC)on Procedural Control Valid [facility] Strep A (POCT) Negative Negative [facility] CBC panel Auto (Bld)on 04-04 Erythrocyte distribution width (RBC) [Ratio] 14.2 % 11.5 - 15.0 % [facility] Hematocrit (Bld) [Volume fraction] 44.0 % 36.0 - 46.0 % [facility] Hemoglobin (Bld) [Mass/Vol] 14.0 g/dL 11.5 - 15.5 g/dL [facility] MCH (RBC) [Entitic mass] 29.7 pg 26.0 - 34.0 pg [facility] MCHC (RBC) [Mass/Vol] 31.8 g/dL 30.5 - 36.0 g/dL [facility] MCV (RBC) [Entitic vol] 93.2 fL 80.0 - 100.0 fL [facility] Nucleated RBC (Bld) [#/Vol] <0.01 k/uL [facility] Platelet mean volume (Bld) [Entitic vol] 10.4 fL 9.0 - 12.7 fL [facility] Platelets (Bld) [#/Vol] 290 10*3/uL 150 - 400 k/uL [facility] RBC (Bld) [#/Vol] 4.72 10*6/uL 3.90 - 5.2 0 m/uL [facility] WBC (Bld) [#/Vol] 12.41 10*3/uL High 3.70 - 11 .00 k/uL [facility] XR Knee - left 4 [facility] IMPRESSION: NORMAL LEFT KNEE Sld Teacher: BERONICA Transcribe Date/Time: Feb 27 2022 12:59P Dictated by : ANDREA REEDER MD This examination was interpreted and the report reviewed and electronically signed by: ANDREA REEDER MD on Feb 27 2022 1:00PM [facility] DIVISION OF RADIOLOGY * * *Final Report* * * DATE OF EXAM: Feb 25 2022 3:06PM WOX 5202 - XR KNEE 4V AP/PA BOTH+LAT/ROBBY LT / PROCEDURE REASON: Acute pain of left knee * * * * Physician Interpretation * * * * Examination: XR KNEE 4V AP/PA BOTH+LAT/ROBBY LT History: Acute pain of left knee Technique: XR KNEE 4V AP/PA BOTH+LAT/ROBBY LT Comparison: None RESULT: Normal mineralization and alignment are seen. Joint spaces are maintained. No fracture or focal bony abnormality. No evidence of effusion DIVISION OF RADIOLOGY Provider, Vivienne Coffman [facility] - 02/27/2022 * * *Final Report* * * DATE OF EXAM: Feb 25 2022 3:06PM WOX 5202 - XR KNEE 4V AP/PA BOTH+LAT/ROBBY LT / PROCEDURE REASON: Acute pain of left knee * * * * Physician Interpretation * * * * Examination: XR KNEE 4V AP/PA BOTH+LAT/ROBBY LT History: Acute pain of left knee Technique: XR KNEE 4V AP/PA BOTH+LAT/ROBBY LT Comparison: None RESULT: Normal mineralization and alignment are seen. Joint spaces are maintained. No fracture or focal bony abnormality. No evidence of effusion IMPRESSION IMPRESSION: NORMAL LEFT KNEE Sld Teacher: [facility] Transcribe Date/Time: Feb 27 2022 12:59P Dictated by : ANDREA REEDER MD This examination was interpreted and the report reviewed and electronically signed by: ANDREA REEDER MD on Feb 27 2022 1:00PM EST [facility] XR Knee - left 4 ViewsOrdere d By: [facility] Provider on 02-27-2022 [facility] XR Knee - left 4 [facility] Radiology Study observation (narrative) [facility] UA DIP, URINE (POC)on 2021 BILIRUBIN UA (POCT) Negative Negative [facility] CLARITY UA (POCT) Clear [facility] COLOR UA (POCT) Yellow [facility] GLUCOSE UA (POCT) Negative Negative mg/dL [facility] HEMOGLOBIN/BLOOD UA (POCT) Negative Negative [facility] KETONE UA (POCT) Negative Negative mg/dL [facility] LEUKOCYTES UA (POCT) Negative Negative [facility] NITRITE UA (POCT) Negative Negative [facility] PH UA (POCT) 5.5 4.5 - 8.0 [facility] Protein Ql (U) Negative Negative mg/dL [facility] SPECIFIC GRAVITY UA (POCT) 1.015 1.005 - 1.030 [facility] UROBILINOGEN UA (POCT) 0.2 E.U./dL [place] E.U./dL [facility] UA DIP, URINE (POC)on 2021 BILIRUBIN UA (POCT) Negative Negative [facility] CLARITY UA (POCT) Clear [facility] COLOR UA (POCT) Yellow [facility] GLUCOSE UA (POCT) Negative Negative mg/dL [facility] HEMOGLOBIN/BLOOD UA (POCT) Negative Negative [facility] KETONE UA (POCT) Negative Negative mg/dL [facility] LEUKOCYTES UA (POCT) Negative Negative [facility] NITRITE UA (POCT) Negative Negative [facility] PH UA (POCT) 6.0 4.5 - 8.0 [facility] Protein Ql (U) Negative Negative mg/dL [facility] SPECIFIC GRAVITY UA (POCT) 1.020 1.005 - 1.030 [facility] UROBILINOGEN UA (POCT) 0.2 E.U./dL [place] E.U./dL [facility] XR ANKLE AND FOOT 6 VIEWS RI [facility] 05-19-2021 XR ANKLE AND FOOT 6 VIEWS RIGHT ORIGINAL EXAMINATION: 6 XRAY VIEWS OF THE right lower EXTREMITY 05/19/2021 12:58 pm COMPARISON: None. HISTORY: ORDERING SYSTEM PROVIDED HISTORY: Reason for Exam: pain FINDINGS: There is a crescentic osseous structure lateral to the aspect of what appears to be the calcaneus on the AP radiograph of the ankle. Well corticated ossicle at the tip of the medial malleolus. No additional acute fractures or dislocation. There is calcaneal enthesopathy. There is soft tissue swelling about the ankle. No radiopaque foreign body. IMPRESSION: Suspect fracture of the lateral process of the distal calcaneus at the articulation with the midfoot. Soft tissue swelling about the ankle and dorsum of the foot. Interpreted by: Terra Alcocer MD Preliminary Report By: Terra Alcocer MD Electronically signed By Terra Alcocer MD Dictated Date: 05/19/2021 1:36:50 PM Prelim Date: 05/19/2021 1:43:03 PM Sign Date: 05/19/2021 1:43:03 PM Ordering Provider: ESTEPHANIA Fontanez [facility] ([place]) PROGRESSon 06-05-2020 PROGRESS HNO ID: [id number] Author: Sena Meeks Service: ? Author Type: Nurse Practitioner Type: Progress Notes Filed: 06/05/2020 4:54 PM Note Text: ESTABLISHED PATIENT TELEPHONE ENCOUNTER HISTORY OF PRESENT ILLNESS June Trena is a 34 year old female who presents today for telephone encounter. Previous note 01/18/20: Patient c/o increased frequency and dysuria and back/bladder pain when she has UTI. She states the recurrent UTI sx started after her partial hyster 1 year ago Patient reports 4-5 UTIs this year Reports she usually will get UTI sx after intercourse. Last UTI 3 weeks ago tx with Macrobid sx resolved ? No h/o stones Occasional UUI + leakage Rare STALIN Drinks 2 bottles water daily Drinks sweet tea daily and 1 cup coffee in the morning No fever or chills No gross hematuria Can be constipated at times. 6 vaginal births Denies prolapse or budge She feels like she at times does not completely empty and urgency even after she voids. PVR 37cc today PLAN - Trial oxybutynin daily - Start vit C and cranberry - Increase water - Post-coital Keflex - Follow up in 4 weeks ? Today's note: She stopped taking oxybutynin - stopped due to side effects Has new diagnosis of diabetes taking metformin. She has increased water intake Keflex not helping post-coitally Stopped vit C - interacts with other meds She has modified her diet. No soda. No caffeine. No etoh. No spicy foods. No chocolate. No foods high in preservatives. Last 2 urine cultures have been negative but she is still having UTI symptoms that "are driving her nuts" The urgency and frequency are increased. No fever or chills 'No gross hematuria We discussed IC and how PFT helps with both OAB and IC We discussed bladder instills, hydro distention and botox Will place PFT consult Rx for uribel sent to pharmacy Will order cystoscopy. LAB RESULTS Creatinine Date Value Ref Range Status 03/12/2020 1.00 (H) 0.58 - 0.96 mg/dL Final No results found for: PSA Color (no units) Date Value 03/28/2020 Yellow Clarity (no units) Date Value 03/28/2020 Slightly Cloudy Glucose, Urine (mg/dL) Date Value 03/28/2020 Negative Bilirubin, Urine (no units) Date Value 03/28/2020 Negative Ketones, Urine (no units) Date Value 03/28/2020 Negative Specific [place], Ur (no units) Date Value 03/28/2020 1.013 Hemoglobin/Blood,Ur ( ) Date Value 03/28/2020 Negative pH, Urine (no units) Date Value 03/28/2020 6.0 Protein, Urine (no units) Date Value 03/28/2020 1+ Urobilinogen (E.U./dL) Date Value 03/28/2020 Negative Nitrites (no units) Date Value 03/28/2020 Negative Leukest (no units) Date Value 03/28/2020 Negative MEDICATIONS: triamcinolone acetonide (KENALOG) 0.1 % cream Apply 1 application to affected area three times daily for 7 days. Apply sparingly to area for rash/itching. metoprolol tartrate, short acting, (LOPRESSOR) 25 mg tablet Take 0.5 tablets by mouth every 12 hours. sertraline (ZOLOFT) 100 mg tablet Take 1 tablet by mouth once daily. ALPRAZolam (XANAX) 0.5 mg tablet Take 1 tablet by mouth once daily as needed for up to 30 days. doxepin capsule 25 mg Take 1 capsule by mouth daily at bedtime. cetirizine (ZYRTEC) 10 mg tablet Take 1 tablet by mouth once daily. amitriptyline (ELAVIL) 25 mg tablet Take 2 tablets by mouth daily at bedtime. liraglutide (VICTOZA) 0.6 mg/ 0.1 ml subcutaneous pen injector Inject 0.6 mg daily via pen X 1 week; then increase to 1.2 mg daily. insulin needles, DISPOSABLE, (PEN NEEDLE) 31 gauge x 5/16" Use one needle per dose. 1 per day for victoza. metFORMIN ER (GLUCOPHAGE XR) 500 mg 24 hr tablet Take 1 tablet by mouth twice daily before meals. pregabalin (LYRICA) 75 mg capsule Take one capsule in the morning and two capsules in the evening. blood sugar diagnostic (BLOOD GLUCOSE TEST) test strip Test blood sugar(s) 1 times daily. Dx: Other DM Code R73.03 Insulin: No atorvastatin (LIPITOR) 40 mg tablet Take 1 tablet by mouth daily at bedtime. For cholesterol. fenofibrate nanocrystallized (TRICOR) 145 mg tablet Take 1 tablet by mouth once daily. busPIRone (BUSPAR) 10 mg tablet Take 1 tablet by mouth twice daily. May take 1/2 tab in the afternoon, if needed. hydroCHLOROthiazide (HYDRODIURIL, ESIDRIX) 50 mg tablet Take 1 tablet by mouth once daily. ferrous sulfate 325 mg (65 mg iron) tablet Take 1 tablet by mouth twice daily. blood sugar diagnostic (BLOOD GLUCOSE TEST) test strip Test blood sugar(s) 1 times daily. Dx: Type 2 DM - Controlled E11.9 Insulin: No Lancets lancets Test blood sugar(s) 1 times daily. Dx: Type 2 DM - Controlled E11.9 Insulin: No famotidine (PEPCID) 20 mg tablet Take 1 tablet by mouth once daily. fluticasone (FLONASE) 50 mcg/actuation nasal spray Use 1 [place] in each nostril daily at bedtime. Lancets lancets Test blood sugar(s) 1 times daily. Dx: Other DM Code R73.03 Insulin: No fluticasone (FLONASE) 50 mcg/actuation nasal spray Use 2 Sprays in each nostril once daily. Rinse mouth after use. albuterol HFA (PROVENTIL HFA, VENTOLIN HFA) 90 mcg/actuation inhaler Inhale 2 Puffs as instructed every 4 hours as needed for Wheezing/Shortness of Breath. [DISCONTINUED] hydrALAZINE (APRESOLINE) 25 mg tablet Take 75 mg by mouth three times daily. REVIEW OF SYSTEMS CONSTITUTIONAL: Patient reports no recent fever or weight loss CARDIOVASCULAR: No chest pain, palpitations or ankle edema. 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 - Hypertension - Iron deficiency anemia - Neuropathy bilateral lower ext - Obesity (BMI 30-39.9) - Pap smear abnormality of cervix with ASCUS favoring benign 02/05/2015 - Pneumonia 2018 MSSA, pseudomonas - depression - Type 2 diabetes mellitus without complication, without long-term current use of insulin (HCC) 03/13/2020 FAMILY HISTORY Problem Relation Age of Onset - Thyroid Mother Hypothyroidism - Diabetes Mother - other (cellulitis) Mother - Diabetes Maternal Grandfather - Hypertension Maternal Grandfather - Heart Maternal Grandfather PACEMAKER - Hypertension Maternal Aunt - No Ocular Disease No Family History PAST SURGICAL HISTORY Procedure Laterality Date - DANDC, DIAG AND/OR THERAPEUTIC 2004 Dilation AND curettage - MIDLINE INSERTION/CONSULT 09/16/2018 - TUBAL LIGATION 2018 w/ Filshie clips - VAGINAL HYSTERECTOMY 07/15/2018 [facility] SOCIAL HISTORY Social History Tobacco Use - Smoking status: Former Smoker Packs/day: 0.50 Years: 15.00 Pack years: 7.50 Types: Cigarettes Quit date: 07/16/2018 Years since quittin.8 - Smokeless tobacco: Never Used Substance Use Topics - Alcohol use: No - Drug use: No PHYSICAL EXAMINATION General appearance: NA BACK: NA MUSCULOSKELETAL: NA RESPIRATORY:NA SKIN: : See HPI ASSESSMENT/PLAN: 1. Recurrent UTI - ICD9: 599.0, ICD10: N39.0 (primary diagnosis) - CYSTO.PANENDO - Uribel 2. OAB (overactive bladder) - ICD9: 596.51, ICD10: N32.81 - CONSULT TO PHYSICAL THERAPY Sena Meeks APRN.HAMMER SETTER Normal [facility] XR Foot - left AP and Latera l and obliqueon 12-28-2019 IMPRESSION: No radiographic evidence of acute osseous injury. Sld Teacher: PSCB Transcribe Date/Time: Dec 28 2019 3:48P Dictated by : NELLA TINSLEY MD This examination was interpreted and the report reviewed and electronically signed by: NELLA TINSLEY MD on Dec 28 2019 3:49PM [facility] DIVISION OF RADIOLOGY * * *Final Report* * * DATE OF EXAM: Dec 28 2019 3:45PM WOX [id number] - XR FOOT 3V AP/LAT/OBL LT / PROCEDURE REASON: Foot pain, left * * * * Physician Interpretation * * * * CLINICAL INDICATION: Foot pain TECHNIQUE: 3 view radiographic study of the left foot with inclusion of a single frontal view of the right foot for purposes of comparison/symmetry. COMPARISON: None FINDINGS: No fracture or dislocation identified. Mild hypertrophic change along the dorsal navicular. Plantar calcaneal enthesophyte. DIVISION OF RADIOLOGY Provider, [facility] Meghna maki [place] - 12/28/2019 * * *Final Report* * * DATE OF EXAM: Dec 28 2019 3:45PM WOX [id number] - XR FOOT 3V AP/LAT/OBL LT / PROCEDURE REASON: Foot pain, left * * * * Physician Interpretation * * * * CLINICAL INDICATION: Foot pain TECHNIQUE: 3 view radiographic study of the left foot with inclusion of a single frontal view of the right foot for purposes of comparison/symmetry. COMPARISON: None FINDINGS: No fracture or dislocation identified. Mild hypertrophic change along the dorsal navicular. Plantar calcaneal enthesophyte. IMPRESSION IMPRESSION: No radiographic evidence of acute osseous injury. Sld Teacher: BERONICA Transcribe Date/Time: Dec 28 2019 3:48P Dictated by : NELLA TINSLEY MD This examination was interpreted and the report reviewed and electronically signed by: NELLA TINSLEY MD on Dec 28 2019 3:49PM [facility] Radiology Study observation (narrative) [facility] XR Foot - left AP and Latera l and obliqueOrdered By: Ccf Provider on 12-28-2019 [facility] CNCOon 10-21-2019 CNCO Letter Text Normal [facility] Basic Panelon 09-16-2018 Creatinine [Mass/Vol] 0.96 mg/dL High 0.51-0.95 [facility] Comment on above: Performed By: #### P 14 #### [address] [address] Anion gap [Moles/Vol] 11 mmol/L Normal 8-16 [facility] Comment on above: Performed By: #### P 14 #### [facility] [address] [place], [place] [address] CO2 [Moles/Vol] 24 mmol/L Normal 21-32 [facility] Comment on above: Performed By: #### P 14 #### [address] [address] Glucose [Mass/Vol] 90 mg/dL Normal 70-99 [facility] Comment on above: Performed By: #### P 14 #### [facility] [address] [place], [place] [address] Urea nitrogen [Mass/Vol] 10 mg/dL Normal 7-18 [facility] Comment on above: Performed By: #### P 14 #### [facility] [address] [place], [place] [address] Calcium [Mass/Vol] 8.7 mg/dL Normal 8.5-10.1 [facility] Comment on above: Performed By: #### P 14 #### [facility] [address] [place], [place] [address] Chloride [Moles/Vol] 105 mmol/L Normal 98-[address] [facility] Comment on above: Performed By: #### P 14 #### [facility] [address] [place], [place] [address] Potassium [Moles/Vol] 3.5 mmol/L Normal 3.5-5.1 [facility] Comment on above: Performed By: #### P 14 #### [facility] [address] [place], [place] [address] Sodium [Moles/Vol] 136 mmol/L Normal 136-145 [facility] Comment on above: Performed By: #### P 14 #### [facility] [address] [place], [place] [address] Glucose Meteron 09-16-2018 Glucose [Mass/Vol] 86 mg/dL Normal 70-99 [facility] Comment on above: Result Comment: WHITNEY FULLER Performed By: #### P 14 #### [facility] [address] [place], [place] [address] Hemogramon 09-16-2018 Erythrocyte distribution width (RBC) [Ratio] 15.6 % High 11.7-14.4 [facility] Comment on above: Performed By: #### P 14 #### [facility] [address] [place], [place] [address] Hematocrit (Bld) [Volume fraction] 23.5 % Low 34.1-44.9 [facility] Comment on above: Performed By: #### P 14 #### [facility] [address] [place], [place] [address] Hemoglobin (Bld) [Mass/Vol] 7.4 g/dL Low 11.2-15.7 [facility] Comment on above: Performed By: #### P 14 #### [facility] [address] [place] [address] MCH (RBC) [Entitic mass] 28.8 pg Normal 25.6-32.2 [facility] Comment on above: Performed By: #### P 14 #### [facility] [address] [place] [address] MCHC (RBC) [Mass/Vol] 31.5 % Low 31.6-34.8 [facility] Comment on above: Performed By: #### P 14 #### [facility] [address] [place] [address] MCV (RBC) [Entitic vol] 91.4 fL Normal 79.4-94.8 [facility] Comment on above: Performed By: #### P 14 #### [facility] [address] [place] [address] Platelet mean volume (Bld) [Entitic vol] 9.2 fL Low 9.4-12.3 [facility] Comment on above: Performed By: #### P 14 #### [facility] [address] [place] [address] Platelets (Bld) [#/Vol] 386 thou/cmm High 182-369 [facility] Comment on above: Performed By: #### P 14 #### [facility] [address] [place] [address] RBC (Bld) [#/Vol] 2.57 mil/cmm Low 3.93-5.22 [facility] Comment on above: Performed By: #### P 14 #### [facility] [address] [place] [address] RDW SD 52.1 fl High 36.4-46.3 [facility] Comment on above: Performed By: #### P 14 #### [facility] [address] [place] [address] WBC (Bld) [#/Vol] 14.73 thou/cmm High 3.98-10.04 [facility] Comment on above: Performed By: #### P 14 #### [facility] [address] [place], [place] [address] MDRD GFRon 09-16-2018 GFR/1.73 sq M predicted among non-blacks MDRD (S/P/Bld) [Vol rate/Area] mL/min/{1.73_m2} Normal >60mL/min/1.7 3m2 [facility] Comment on above: Result Comment: If t he patient is , multiply the result by 1.210. Performed By: #### P 14 #### [facility] [address] [place] [id number] Protimeon 09-16-2018 INR Coag (PPP) [Relative time] 1.44 {INR} High 0.90-1.30 [facility] Comment on above: Result Comment: Celina min K Antagonist (VKA) Therapeutic Range: INR 2 to 3 (Target INR of 2.5) Note: For patients treated with VKA drugs, such as warfarin, the [place] [employer] 2012 Guideline recommends a therapeutic INR range of 2 to 3 (target INR of 2.5). This recommendation includes high-risk patients with antiphospholipid syndrome with previous arterial or venous thromboembolism, current-generation mechanical or bioprosthetic aortic heart valve replacement. VKA Therapeutic Range for some Mechanical Valve Replacement: INR 2.5 to 3.5 (Target INR of 3) Note: Patients with mechanical aortic valve replacement and additional risk factors for thromboembolic events (atrial fibrillation, previous thromboembolism, LV dysfunction, hypercoagulable conditions) or an older generation mechanical AVR (i.e., ball in-Cage) or any mechanical MVR should have a INR therapeutic range of 2.5 to 3.5 target INR of 3). Heidi GH, et al. Chest 2012; 141:7S-47S Miranda RA et al. JACC 2017; 70: 252-289 Performed By: #### P 14 #### [facility] [address] [place] [id number] PT Coag (PPP) [Time] 14.6 s High 9.7-13.[address] [facility] Comment on above: Performed By: #### P 14 #### [facility] [address] [place], [place] [address] Basic Panelon 09-15-2018 Creatinine [Mass/Vol] 1.08 mg/dL High 0.51-0.95 [facility] Comment on above: Performed By: #### P 14 #### [facility] [address] [place], [place] [address] Anion gap [Moles/Vol] 15 mmol/L Normal 8-16 [facility] Comment on above: Performed By: #### P 14 #### [facility] [address] [place], [place] [address] Calcium [Mass/Vol] 8.6 mg/dL Normal 8.5-10.1 [facility] Comment on above: Performed By: #### P 14 #### [facility] [address] [place], [place] [address] CO2 [Moles/Vol] 22 mmol/L Normal 21-32 [facility] Comment on above: Performed By: #### P 14 #### [facility] [address] [place], [place] [address] Glucose [Mass/Vol] 92 mg/dL Normal 70-99 [facility] Comment on above: Performed By: #### P 14 #### [facility] [address] [place], [place] [address] Urea nitrogen [Mass/Vol] 9 mg/dL Normal 7-18 [facility] Comment on above: Performed By: #### P 14 #### [facility] [address] [place], [place] [address] Chloride [Moles/Vol] 105 mmol/L Normal 98-[address] [facility] Comment on above: Performed By: #### P 14 #### [facility] [address] [place], [place] [address] Potassium [Moles/Vol] 3.6 mmol/L Normal 3.5-5.1 [facility] Comment on above: Performed By: #### P 14 #### [facility] [address] [place], [place] [address] Sodium [Moles/Vol] 138 mmol/L Normal 136-145 [facility] Comment on above: Performed By: #### P 14 #### [facility] [address] [place], [place] [address] Hemogramon 09-15-2018 Erythrocyte distribution width (RBC) [Ratio] 15.5 % High 11.7-14.4 [facility] Comment on above: Performed By: #### P 14 #### [facility] [address] [place] [address] Hematocrit (Bld) [Volume fraction] 23.6 % Low 34.1-44.9 [facility] Comment on above: Performed By: #### P 14 #### [facility] [address] [place] [address] Hemoglobin (Bld) [Mass/Vol] 7.4 g/dL Low 11.2-15.7 [facility] Comment on above: Performed By: #### P 14 #### [facility] [address] [place] [address] MCH (RBC) [Entitic mass] 28.7 pg Normal 25.6-32.2 [facility] Comment on above: Performed By: #### P 14 #### [facility] [address] [place] [address] MCHC (RBC) [Mass/Vol] 31.4 % Low 31.6-34.8 [facility] Comment on above: Performed By: #### P 14 #### [facility] [address] [place] [address] MCV (RBC) [Entitic vol] 91.5 fL Normal 79.4-94.8 [facility] Comment on above: Performed By: #### P 14 #### [facility] [address] [place] [address] Platelet mean volume (Bld) [Entitic vol] 9.3 fL Low 9.4-12.3 [facility] Comment on above: Performed By: #### P 14 #### [facility] [address] [place], [place] [address] Platelets (Bld) [#/Vol] 376 thou/cmm High 182-369 [facility] Comment on above: Performed By: #### P 14 #### [facility] [address] [place] [id number] RBC (Bld) [#/Vol] 2.58 mil/cmm Low 3.93-5.22 [facility] Comment on above: Performed By: #### P 14 #### [facility] [address] [place] [address] RDW SD 52.1 fl High 36.4-46.3 [facility] Comment on above: Performed By: #### P 14 #### [facility] [address] [place] [id number] WBC (Bld) [#/Vol] 16.88 thou/cmm High 3.98-10.04 [facility] Comment on above: Performed By: #### P 14 #### [facility] [address] [place] [address] Protimeon 09-15-2018 INR Coag (PPP) [Relative time] 1.58 {INR} High 0.90-1.30 [facility] Comment on above: Result Comment: Celina min K Antagonist (VKA) Therapeutic Range: INR 2 to 3 (Target INR of 2.5) Note: For patients treated with VKA drugs, such as warfarin, the [place] [employer] 2012 Guideline recommends a therapeutic INR range of 2 to 3 (target INR of 2.5). This recommendation includes high-risk patients with antiphospholipid syndrome with previous arterial or venous thromboembolism, current-generation mechanical or bioprosthetic aortic heart valve replacement. VKA Therapeutic Range for some Mechanical Valve Replacement: INR 2.5 to 3.5 (Target INR of 3) Note: Patients with mechanical aortic valve replacement and additional risk factors for thromboembolic events (atrial fibrillation, previous thromboembolism, LV dysfunction, hypercoagulable conditions) or an older generation mechanical AVR (i.e., ball in-Cage) or any mechanical MVR should have a INR therapeutic range of 2.5 to 3.5 target INR of 3). Heidi GH, et al. Chest 2012; 141:7S-47S Miranda [place] et al. JAC 2017; 70: 252-289 Performed By: #### P 14 #### [facility] [address] [place] [address] PT Coag (PPP) [Time] 15.9 s High 9.7-13.[address] [facility] Comment on above: Performed By: #### P 14 #### [facility] [address] [place], [place] [address] Basic Panelon 09-14-2018 Creatinine [Mass/Vol] 1.10 mg/dL High 0.51-0.95 [facility] Comment on above: Performed By: #### P 14 #### [facility] [address] [place], [place] [address] Anion gap [Moles/Vol] 11 mmol/L Normal 8-16 [facility] Comment on above: Performed By: #### P 14 #### [facility] [address] [place], [place] [address] Calcium [Mass/Vol] 8.6 mg/dL Normal 8.5-10.1 [facility] Comment on above: Performed By: #### P 14 #### [facility] [address] [place], [place] [address] CO2 [Moles/Vol] 23 mmol/L Normal 21-32 [facility] Comment on above: Performed By: #### P 14 #### [facility] [address] [place], [place] [address] Glucose [Mass/Vol] 115 mg/dL High 70-99 [facility] Comment on above: Performed By: #### P 14 #### [facility] [address] [place], [place] [address] Urea nitrogen [Mass/Vol] 14 mg/dL Normal 7-18 [facility] Comment on above: Performed By: #### P 14 #### [facility] [address] [place], [place] [address] Chloride [Moles/Vol] 106 mmol/L Normal 98-[address] [facility] Comment on above: Performed By: #### P 14 #### [facility] [address] [place], [place] [address] Potassium [Moles/Vol] 3.2 mmol/L Low 3.5-5.1 [facility] Comment on above: Performed By: #### P 14 #### [facility] [address] [place], [place] [address] Sodium [Moles/Vol] 137 mmol/L Normal 136-145 [facility] Comment on above: Performed By: #### P 14 #### [facility] [address] [place] [address] Cult Bloodon 09-14-2018 Cult Blood Test performed at [facility] No growth Normal [facility] Comment on above: Performed By: #### P 14 #### [facility] [address] [place] [address] Hemogramon 09-14-2018 Erythrocyte distribution width (RBC) [Ratio] 15.5 % High 11.7-14.4 [facility] Comment on above: Performed By: #### P 14 #### [facility] [address] [place] [address] Hematocrit (Bld) [Volume fraction] 24.4 % Low 34.1-44.9 [facility] Comment on above: Performed By: #### P 14 #### [facility] [address] [place] [address] Hemoglobin (Bld) [Mass/Vol] 7.6 g/dL Low 11.2-15.7 [facility] Comment on above: Performed By: #### P 14 #### [facility] [address] [place] [address] MCH (RBC) [Entitic mass] 28.5 pg Normal 25.6-32.2 [facility] Comment on above: Performed By: #### P 14 #### [facility] [address] [place] [address] MCHC (RBC) [Mass/Vol] 31.1 % Low 31.6-34.8 [facility] Comment on above: Performed By: #### P 14 #### [facility] [address] [place] [address] MCV (RBC) [Entitic vol] 91.4 fL Normal 79.4-94.8 [facility] Comment on above: Performed By: #### P 14 #### [facility] [address] [place] [address] Platelet mean volume (Bld) [Entitic vol] 9.5 fL Normal 9.4-12.3 [facility] Comment on above: Performed By: #### P 14 #### [facility] [address] [place] [id number] Platelets (Bld) [#/Vol] 343 thou/cmm Normal 182-369 [facility] Comment on above: Performed By: #### P 14 #### [facility] [address] [place] [address] RBC (Bld) [#/Vol] 2.67 mil/cmm Low 3.93-5.22 [facility] Comment on above: Performed By: #### P 14 #### [facility] [address] [place] [address] RDW SD 51.8 fl High 36.4-46.3 [facility] Comment on above: Performed By: #### P 14 #### [facility] [address] [place] [address] WBC (Bld) [#/Vol] 17.19 thou/cmm High 3.98-10.04 [facility] Comment on above: Performed By: #### P 14 #### [facility] [address] [place] [address] Protimeon 09-14-2018 INR Coag (PPP) [Relative time] 2.03 {INR} High 0.90-1.30 [facility] Comment on above: Result Comment: Celina min K Antagonist (VKA) Therapeutic Range: INR 2 to 3 (Target INR of 2.5) Note: For patients treated with VKA drugs, such as warfarin, the [place] [employer] 2012 Guideline recommends a therapeutic INR range of 2 to 3 (target INR of 2.5). This recommendation includes high-risk patients with antiphospholipid syndrome with previous arterial or venous thromboembolism, current-generation mechanical or bioprosthetic aortic heart valve replacement. VKA Therapeutic Range for some Mechanical Valve Replacement: INR 2.5 to 3.5 (Target INR of 3) Note: Patients with mechanical aortic valve replacement and additional risk factors for thromboembolic events (atrial fibrillation, previous thromboembolism, LV dysfunction, hypercoagulable conditions) or an older generation mechanical AVR (i.e., ball in-Cage) or any mechanical MVR should have a INR therapeutic range of 2.5 to 3.5 target INR of 3). Heidi GH, et al. Chest 2012; 141:7S-47S Miranda RA, et al. [facility] 2017; 70: 252-289 Performed By: #### P 14 #### [facility] [address] [place], [place] [address] PT Coag (PPP) [Time] 20.0 s High 9.7-13.[address] [facility] Comment on above: Performed By: #### P 14 #### [facility] [address] [place], [place] [address] Basic Panelon 09-13-2018 Creatinine [Mass/Vol] 1.32 mg/dL High 0.51-0.95 [facility] Comment on above: Performed By: #### P 14 #### [facility] [address] [place], [place] [address] Urea nitrogen [Mass/Vol] 20 mg/dL High 7-18 [facility] Comment on above: Performed By: #### P 14 #### [facility] [address] [place], [place] [address] Anion gap [Moles/Vol] 12 mmol/L Normal 8-16 [facility] Comment on above: Performed By: #### P 14 #### [facility] [address] [place], [place] [address] Calcium [Mass/Vol] 9.1 mg/dL Normal 8.5-10.1 [facility] Comment on above: Performed By: #### P 14 #### [facility] [address] [place], [place] [address] CO2 [Moles/Vol] 26 mmol/L Normal 21-32 [facility] Comment on above: Performed By: #### P 14 #### [facility] [address] [place], [place] [address] Glucose [Mass/Vol] 105 mg/dL High 70-99 [facility] Comment on above: Performed By: #### P 14 #### [facility] [address] [place], [place] [address] Chloride [Moles/Vol] 101 mmol/L Normal 98-[address] [facility] Comment on above: Performed By: #### P 14 #### [facility] [address] [place] [address] Potassium [Moles/Vol] 3.5 mmol/L Normal 3.5-5.1 [facility] Comment on above: Performed By: #### P 14 #### [facility] [address] [place] [address] Sodium [Moles/Vol] 135 mmol/L Low 136-145 [facility] Comment on above: Performed By: #### P 14 #### [facility] [address] [place] [address] Hemogramon 09-13-2018 Erythrocyte distribution width (RBC) [Ratio] 15.5 % High 11.7-14.4 [facility] Comment on above: Performed By: #### P 14 #### [facility] [address] [place] [address] Hematocrit (Bld) [Volume fraction] 24.8 % Low 34.1-44.9 [facility] Comment on above: Performed By: #### P 14 #### [facility] [address] [place] [address] Hemoglobin (Bld) [Mass/Vol] 7.7 g/dL Low 11.2-15.7 [facility] Comment on above: Performed By: #### P 14 #### [facility] [address] [place] [address] MCH (RBC) [Entitic mass] 28.7 pg Normal 25.6-32.2 [facility] Comment on above: Performed By: #### P 14 #### [facility] [address] [place] [address] MCHC (RBC) [Mass/Vol] 31.0 % Low 31.6-34.8 [facility] Comment on above: Performed By: #### P 14 #### [facility] [address] [place] [id number] MCV (RBC) [Entitic vol] 92.5 fL Normal 79.4-94.8 [facility] Comment on above: Performed By: #### P 14 #### [facility] [address] [place], [place] [address] Platelet mean volume (Bld) [Entitic vol] 9.5 fL Normal 9.4-12.3 [facility] Comment on above: Performed By: #### P 14 #### [facility] [address] [place], [place] [address] Platelets (Bld) [#/Vol] 349 thou/cmm Normal 182-369 [facility] Comment on above: Performed By: #### P 14 #### [facility] [address] [place], [place] [address] RBC (Bld) [#/Vol] 2.68 mil/cmm Low 3.93-5.22 [facility] Comment on above: Performed By: #### P 14 #### [facility] [address] [place], [place] [address] RDW SD 52.8 fl High 36.4-46.3 [facility] Comment on above: Performed By: #### P 14 #### [facility] [address] [place], [place] [address] WBC (Bld) [#/Vol] 15.67 thou/cmm High 3.98-10.04 [facility] Comment on above: Performed By: #### P 14 #### [facility] [address] [place], [place] [address] Hemogram/Diffon 09-13-2018 Interpreted by See below Normal [facility] Comment on above: Result Comment: Maynor Bowers M.D., Pathologist Performed By: #### P 14 #### [facility] [address] [place], [place] [address] Protimeon 09-13-2018 INR Coag (PPP) [Relative time] 2.30 {INR} High 0.90-1.30 [facility] Comment on above: Result Comment: Celina min K Antagonist (VKA) Therapeutic Range: INR 2 to 3 (Target INR of 2.5) Note: For patients treated with VKA drugs, such as warfarin, the [place] [employer] 2012 Guideline recommends a therapeutic INR range of 2 to 3 (target INR of 2.5). This recommendation includes high-risk patients with antiphospholipid syndrome with previous arterial or venous thromboembolism, current-generation mechanical or bioprosthetic aortic heart valve replacement. VKA Therapeutic Range for some Mechanical Valve Replacement: INR 2.5 to 3.5 (Target INR of 3) Note: Patients with mechanical aortic valve replacement and additional risk factors for thromboembolic events (atrial fibrillation, previous thromboembolism, LV dysfunction, hypercoagulable conditions) or an older generation mechanical AVR (i.e., ball in-Cage) or any mechanical MVR should have a INR therapeutic range of 2.5 to 3.5 target INR of 3). Heidi BOSCH, et al. Chest 2012; 141:7S-47S Miranda RA, et al. JACC 2017; 70: 252-289 Performed By: #### P 14 #### [address] [address] PT Coag (PPP) [Time] 22.5 s High 9.7-13.[address] [facility] Comment on above: Performed By: #### P 14 #### [place] [address] Hepatic Panelon 09-12-2018 ALP [Catalytic activity/Vol] 147 U/L High 45-117 [facility] Comment on above: Performed By: #### P 14 #### [address] [address] Bilirubin [Mass/Vol] 0.8 mg/dL Normal 0.2-1.[address] [facility] Comment on above: Performed By: #### P 14 #### [address] [address] Protein [Mass/Vol] 6.7 g/dL Normal 6.4-8.2 [facility] Comment on above: Performed By: #### P 14 #### [facility] [address] [place], [place] [address] ALT [Catalytic activity/Vol] 31 U/L Normal 12-78 [facility] Comment on above: Performed By: #### P 14 #### [facility] [address] [place], [place] [address] AST [Catalytic activity/Vol] 15 U/L Normal 15-37 [facility] Comment on above: Performed By: #### P 14 #### [facility] [address] [place], [place] [address] Bilirubin [Mass/Vol] 0.37 mg/dL High 0.00-0.[address] [facility] Comment on above: Performed By: #### P 14 #### [facility] [address] [place], [place] [address] Albumin [Mass/Vol] 2.6 g/dL Low 3.4-5.0 [facility] Comment on above: Performed By: #### P 14 #### [facility] [address] [place], [place] [address] Activated PTTon 09-11-2018 aPTT Coag (Bld) [Time] 35.2 s High 23.0-32.4 [facility] Comment on above: Result Comment: Unfr actionated Heparin Therapeutic Ranges: Standard Heparin Nomogram: 53 to 78 seconds (anti-Xa level of 0.3 to 0.7 U/mL) Low Dose/ACS Nomogram: 49 to 67 seconds (anti-Xa level of 0.2 to 0.5 U/mL) Stroke Treatment Nomogram: 49 to 67 seconds (anti-Xa level of 0.2 to 0.5 U/mL) Note: The APTT therapeutic range has been determined for the current lot of laboratory APTT reagent in use throughout the [facility]. Performed By: #### P 14 #### [facility] [address] [place], [place] [address] Basic Panelon 09-11-2018 Creatinine [Mass/Vol] 1.09 mg/dL High 0.51-0.95 [facility] Comment on above: Performed By: #### P 14 #### [facility] [address] [place], [place] [address] Anion gap [Moles/Vol] 16 mmol/L Normal 8-16 [facility] Comment on above: Performed By: #### P 14 #### [facility] [address] [place], [place] [address] CO2 [Moles/Vol] 22 mmol/L Normal 21-32 [facility] Comment on above: Performed By: #### P 14 #### [facility] [address] [place], [place] [address] Glucose [Mass/Vol] 98 mg/dL Normal 70-99 [facility] Comment on above: Performed By: #### P 14 #### [facility] [address] [place] [address] Urea nitrogen [Mass/Vol] 17 mg/dL Normal 7-18 [facility] Comment on above: Performed By: #### P 14 #### [facility] [address] [place] [address] Calcium [Mass/Vol] 9.1 mg/dL Normal 8.5-10.1 [facility] Comment on above: Performed By: #### P 14 #### [facility] [address] [place] [address] Chloride [Moles/Vol] 96 mmol/L Low 98-[address] [facility] Comment on above: Performed By: #### P 14 #### [facility] [address] [place] [address] Potassium [Moles/Vol] 3.8 mmol/L Normal 3.5-5.1 [facility] Comment on above: Performed By: #### P 14 #### [facility] [address] [place] [address] Sodium [Moles/Vol] 130 mmol/L Low 136-145 [facility] Comment on above: Performed By: #### P 14 #### [facility] [address] [place] [address] Comprehensive Panelon 2018 Bilirubin [Mass/Vol] 1.2 mg/dL High 0.2-1.[address] [facility] Comment on above: Performed By: #### P 14 #### [facility] [address] [place] [address] AST [Catalytic activity/Vol] 40 U/L High 15-37 [facility] Comment on above: Performed By: #### P 14 #### [facility] [address] [place], [place] [address] Creatinine [Mass/Vol] 1.17 mg/dL High 0.51-0.95 [facility] Comment on above: Performed By: #### P 14 #### [facility] [address] [place], [place] [address] ALP [Catalytic activity/Vol] 152 U/L High 45-117 [facility] Comment on above: Performed By: #### P 14 #### [facility] [address] [place], [place] [address] Protein [Mass/Vol] 8.4 g/dL High 6.4-8.2 [facility] Comment on above: Performed By: #### P 14 #### [facility] [address] [place], [place] [address] ALT [Catalytic activity/Vol] 61 U/L Normal 12-78 [facility] Comment on above: Performed By: #### P 14 #### [facility] [address] [place], [place] [address] Albumin [Mass/Vol] 3.7 g/dL Normal 3.4-5.0 [facility] Comment on above: Performed By: #### P 14 #### [facility] [address] [place], [place] [address] Anion gap [Moles/Vol] 15 mmol/L Normal 8-16 [facility] Comment on above: Performed By: #### P 14 #### [facility] [address] [place], [place] [address] CO2 [Moles/Vol] 23 mmol/L Normal 21-32 [facility] Comment on above: Performed By: #### P 14 #### [facility] [address] [place], [place] [address] Glucose [Mass/Vol] 117 mg/dL High 70-99 [facility] Comment on above: Performed By: #### P 14 #### [facility] [address] [place], [place] [address] Calcium [Mass/Vol] 9.4 mg/dL Normal 8.5-10.1 [facility] Comment on above: Performed By: #### P 14 #### [facility] [address] [place], [place] [address] Urea nitrogen [Mass/Vol] 19 mg/dL High 7-18 [facility] Comment on above: Performed By: #### P 14 #### [facility] [address] [place] [address] Chloride [Moles/Vol] 96 mmol/L Low 98-[address] [facility] Comment on above: Performed By: #### P 14 #### [facility] [address] [place] [address] Potassium [Moles/Vol] 4.0 mmol/L Normal 3.5-5.1 [facility] Comment on above: Performed By: #### P 14 #### [facility] [address] [place] [address] Sodium [Moles/Vol] 130 mmol/L Low 136-145 [facility] Comment on above: Performed By: #### P 14 #### [facility] [address] [place] [address] Cult Bloodon 09-11-2018 Cult Blood Test performed at [facility] No growth Normal [facility] Comment on above: Performed By: #### P 14 #### [facility] [address] [place] [address] Cult Blood Test performed at [facility] No growth The blood cultures are under-filled. Adding volumes lower or higher than the property claims adjuster?s recommended volume* may adversely affect recovery and/or detection of organisms. (*refer to individual bottle labels for correct volumes). Normal [facility] Comment on above: Performed By: #### P 14 #### [facility] [address] [place] [address] Cult Urineon 09-11-2018 Cult Urine Test performed at [facility] ORGANISM: *Klebsiella pneumoniae (ID: 1) 50,000-99,000 CFU/ml CLSI breakpoints for therapy of uncomplicated UTI due to E. coli, K. pneumoniae or P. mirabilis were applied and may be used to predict the activity of oral agents (cefdinir, cefpodoxime, cefuroxime, and cephalexin). Normal [facility] Comment on above: Performed By: #### P 14 #### [facility] [address] [place] [address] ECU Troponin Ion 09-11-2018 Troponin I.cardiac [Mass/Vol] ng/mL Normal 0.015-0.045 [facility] Comment on above: Performed By: #### P 14 #### [facility] [address] [place] [address] Hemogramon 09-11-2018 Erythrocyte distribution width (RBC) [Ratio] 15.6 % High 11.7-14.4 [facility] Comment on above: Performed By: #### P 14 #### [facility] [address] [place] [address] Hematocrit (Bld) [Volume fraction] 27.0 % Low 34.1-44.9 [facility] Comment on above: Performed By: #### P 14 #### [facility] [address] [place] [address] Hemoglobin (Bld) [Mass/Vol] 8.8 g/dL Low 11.2-15.7 [facility] Comment on above: Performed By: #### P 14 #### [facility] [address] [place] [address] MCH (RBC) [Entitic mass] 28.7 pg Normal 25.6-32.2 [facility] Comment on above: Performed By: #### P 14 #### [facility] [address] [place] [address] MCHC (RBC) [Mass/Vol] 32.6 % Normal 31.6-34.8 [facility] Comment on above: Performed By: #### P 14 #### [facility] [address] [place] [address] MCV (RBC) [Entitic vol] 87.9 fL Normal 79.4-94.8 [facility] Comment on above: Performed By: #### P 14 #### [facility] [address] [place] [address] Platelet mean volume (Bld) [Entitic vol] 9.2 fL Low 9.4-12.3 [facility] Comment on above: Performed By: #### P 14 #### [facility] [address] [place] [id number] Platelets (Bld) [#/Vol] 393 thou/cmm High 182-369 [facility] Comment on above: Performed By: #### P 14 #### [facility] [address] [place] [address] RBC (Bld) [#/Vol] 3.07 mil/cmm Low 3.93-5.22 [facility] Comment on above: Performed By: #### P 14 #### [facility] [address] [place] [address] RDW SD 50.2 fl High 36.4-46.3 [facility] Comment on above: Performed By: #### P 14 #### [facility] [address] [place] [address] WBC (Bld) [#/Vol] 29.63 thou/cmm Critically high 3.98-10.0 4 [facility] Comment on above: Performed By: #### P 14 #### [facility] [address] [place] [address] Hemogram/Diffon 09-11-2018 Abs Neut (ANC) 18.74 thou/cmm High 1.56-6.13 [facility] Comment on above: Performed By: #### P 14 #### [facility] [address] [place] [address] Abs. Baso 0.31 thou/cmm High 0.01-0.08 [facility] Comment on above: Performed By: #### P 14 #### [facility] [address] [place] [address] Abs. [place] 1.56 thou/cmm High 0.27-0.70 [facility] Comment on above: Performed By: #### P 14 #### [facility] [address] [place] [address] Atypical Lymph 2.0 % Normal [facility] Comment on above: Performed By: #### P 14 #### [facility] [address] [place] [address] Basophils/100 WBC (Bld) 1.0 % Normal [facility] Comment on above: Performed By: #### P 14 #### [facility] [address] [place] [address] Eosinophils (Bld) [#/Vol] 0.00 thou/cmm Normal 0.00-0.31 [facility] Comment on above: Performed By: #### P 14 #### [facility] [address] [place], [place] [address] Eosinophils/100 WBC (Bld) 0.0 % Normal [facility] Comment on above: Performed By: #### P 14 #### [facility] [address] [place], [place] [address] Lymphocytes (Bld) [#/Vol] 10.62 thou/cmm High 1.18-3.74 [facility] Comment on above: Performed By: #### P 14 #### [facility] [address] [place], [place] [address] Lymphocytes/100 WBC (Bld) 32.0 % Normal [facility] Comment on above: Performed By: #### P 14 #### [facility] [address] [place] [address] Macro-ovalocyte Few Normal [facility] Comment on above: Performed By: #### P 14 #### [facility] [address] [place], [place] [address] Monocytes/100 WBC (Bld) 5.0 % Normal [facility] Comment on above: Performed By: #### P 14 #### [facility] [address] [place], [place] [address] Platelet Morphology Normal Normal [facility] Comment on above: Performed By: #### P 14 #### [facility] [address] [place], [place] [address] Polychromasia Few Normal [facility] Comment on above: Performed By: #### P 14 #### [facility] [address] [place], [place] [address] RBC morphology finding Nom (Bld) Present Normal [facility] Comment on above: Performed By: #### P 14 #### [facility] [address] [place] [address] Seg Neutrophil 60.0 % Normal [facility] Comment on above: Performed By: #### P 14 #### [facility] [address] [place] [address] Erythrocyte distribution width (RBC) [Ratio] 15.7 % High 11.7-14.4 [facility] Comment on above: Performed By: #### P 14 #### [facility] [address] [place] [address] Hematocrit (Bld) [Volume fraction] 28.2 % Low 34.1-44.9 [facility] Comment on above: Performed By: #### P 14 #### [facility] [address] [place] [address] Hemoglobin (Bld) [Mass/Vol] 9.1 g/dL Low 11.2-15.7 [facility] Comment on above: Performed By: #### P 14 #### [facility] [address] [place] [address] MCH (RBC) [Entitic mass] 28.3 pg Normal 25.6-32.2 [facility] Comment on above: Performed By: #### P 14 #### [facility] [address] [place] [address] MCHC (RBC) [Mass/Vol] 32.3 % Normal 31.6-34.8 [facility] Comment on above: Performed By: #### P 14 #### [facility] [address] [place] [address] MCV (RBC) [Entitic vol] 87.6 fL Normal 79.4-94.8 [facility] Comment on above: Performed By: #### P 14 #### [facility] [address] [place] [address] Platelet mean volume (Bld) [Entitic vol] 9.4 fL Normal 9.4-12.3 [facility] Comment on above: Performed By: #### P 14 #### [facility] [address] [place], [place] [address] Platelets (Bld) [#/Vol] 481 thou/cmm High 182-369 [facility] Comment on above: Performed By: #### P 14 #### [facility] [address] [place], [place] [address] RBC (Bld) [#/Vol] 3.22 mil/cmm Low 3.93-5.22 [facility] Comment on above: Performed By: #### P 14 #### [facility] [address] [place] [address] RDW SD 50.1 fl High 36.4-46.3 [facility] Comment on above: Performed By: #### P 14 #### [facility] [address] [place], [place] [address] WBC (Bld) [#/Vol] 31.23 thou/cmm Critically high 3.98-10.0 4 [facility] Comment on above: Performed By: #### P 14 #### [facility] [address] [place] [address] Lactic Acidon 09-11-2018 Lactate [Moles/Vol] 1.5 mmol/L Normal 0.4-2.0 [facility] Comment on above: Performed By: #### P 14 #### [facility] [address] [place] [address] Lactate [Moles/Vol] 1.6 mmol/L Normal 0.5-2.2 [facility] Comment on above: Performed By: #### P 14 #### [facility] [address] [place], [place] [address] Lipase Bloodon 09-11-2018 Lipase Blood 732 U/L High 73-393 [facility] Comment on above: Performed By: #### P 14 #### [facility] [address] [place] [address] MRSA Screenon 09-11-2018 MRSA DNA LYN+probe Ql (Unsp spec) Test performed at [facility] No MRSA detected. Normal [facility] Comment on above: Performed By: #### P 14 #### [facility] [address] [place] [address] Protimeon 09-11-2018 INR Coag (PPP) [Relative time] 1.90 {INR} High 0.90-1.30 [facility] Comment on above: Result Comment: Celina min K Antagonist (VKA) Therapeutic Range: INR 2 to 3 (Target INR of 2.5) Note: For patients treated with VKA drugs, such as warfarin, the [place] [employer] 2012 Guideline recommends a therapeutic INR range of 2 to 3 (target INR of 2.5). This recommendation includes high-risk patients with antiphospholipid syndrome with previous arterial or venous thromboembolism, current-generation mechanical or bioprosthetic aortic heart valve replacement. VKA Therapeutic Range for some Mechanical Valve Replacement: INR 2.5 to 3.5 (Target INR of 3) Note: Patients with mechanical aortic valve replacement and additional risk factors for thromboembolic events (atrial fibrillation, previous thromboembolism, LV dysfunction, hypercoagulable conditions) or an older generation mechanical AVR (i.e., ball in-Cage) or any mechanical MVR should have a INR therapeutic range of 2.5 to 3.5 target INR of 3). Cosmett GH, et al. Chest 2012; 141:7S-47S Miranda RA et al. [facility] 2017; 70: 252-289 Performed By: #### P 14 #### [place] [address] PT Coag (PPP) [Time] 18.8 s High 9.7-13.[address] [facility] Comment on above: Performed By: #### P 14 #### [place] [address] Urinalysis Routineon 019 Bacteria LM.HPF (Urine sed) [#/Area] NONE Normal None [facility] Comment on above: Performed By: #### P 14 #### [place] [address] Ep Cells Urine 3.2 /hpf Normal 0.0-5.0 [facility] Comment on above: Performed By: #### P 14 #### [place] [address] Hyaline Cast 1.4 /lpf High 0.0-1.0 [facility] Comment on above: Performed By: #### P 14 #### [place] [address] RBC LM.HPF (Urine sed) [#/Area] 4.2 /[HPF] Normal 0.0-5.0 [facility] Comment on above: Performed By: #### P 14 #### [address], [place] [address] WBC LM.HPF (Urine sed) [#/Area] 3.4 /[HPF] Normal 0.0-5.0 [facility] Comment on above: Performed By: #### P 14 #### [facility] [address] [place] [address] Appearance (U) CLEAR Normal [facility] Comment on above: Performed By: #### P 14 #### [facility] [address] [place] [address] Bilirubin (U) [Mass/Vol] Negative Normal Negative [facility] Comment on above: Performed By: #### P 14 #### [facility] [address] [place] [address] Color (U) YELLOW Normal [facility] Comment on above: Performed By: #### P 14 #### [facility] [address] [place] [address] Glucose Ql (U) Negative Normal Negative [facility] Comment on above: Performed By: #### P 14 #### [facility] [address] [place] [address] Hemoglobin,Urine Negative Normal Negative [facility] Comment on above: Performed By: #### P 14 #### [facility] [address] [place] [address] Ketone Urine Negative Normal Negative [facility] Comment on above: Performed By: #### P 14 #### [facility] [address] [place] [address] Leukocytes Esterase Negative Normal Negative [facility] Comment on above: Performed By: #### P 14 #### [facility] [address] [place] [address] Nitrites Urine Negative Normal Negative [facility] Comment on above: Performed By: #### P 14 #### [facility] [address] [place] [address] pH (U) 7.0 [pH] Normal 5.0-8.0 [facility] Comment on above: Performed By: #### P 14 #### [facility] [address] [place] [address] Protein (U) [Mass/Vol] 100 mg/dL Abnormal Negative [facility] Comment on above: Performed By: #### P 14 #### [facility] [address] [place] [address] Specific [place], Ur 1.016 Normal 1.005-1.030 [facility] Comment on above: Performed By: #### P 14 #### [facility] [address] [place] [address] Urobilinogen,Ur 0.2 EU/dL Normal 0.2-1.0 [facility] Comment on above: Performed By: #### P 14 #### [facility] [address] [place] [address] Venous Blood Gason 9 Base Excess -1.0 mEq/L Normal -3.0-3.0 [facility] Comment on above: Performed By: #### P 14 #### [facility] [address] [place] [address] HCO3 (Bld) [Moles/Vol] 21.9 mmol/L Normal 21.0-30.0 [facility] Comment on above: Performed By: #### P 14 #### [facility] [address] [place] [address] PCO2 Venous 31.4 mm Hg Low 40.6-60.0 [facility] Comment on above: Performed By: #### P 14 #### [facility] [address] [place] [address] pH Venous 7.458 High 7.320-7.430 [facility] Comment on above: Performed By: #### P 14 #### [facility] [address] [place] [address] PO2 Venous 93.7 mm Hg High 15.9-37.5 [facility] Comment on above: Performed By: #### P 14 #### [facility] [address] [place] [address] [address] Abdomen/Pelvis w/o Contra ston 09-10-2018 CT Abdomen/Pelvis w/o Contrast Patient Name: TRENA JUNE CT Exam Date/Time 09/10/2018 18:19:[address] Abdomen/Pelvis (No PO, No IV) Ordering Physician Joao CASTILLO JEFFREY D Accession Number [id number] CPT4 Codes 78340 (CT Abdomen/Pelvis (No PO, No IV)) Reason For Exam oral only--abd pain after lili tube removed Report CT ABDOMEN AND PELVIS WITHOUT CONTRAST CLINICAL INDICATION: oral only--abd pain after lili tube removed TECHNIQUE: CT scan of the abdomen and pelvis, without IV contrast. Multiplanar reformations. COMPARISON: None. FINDINGS: Abdomen: Solid organ evaluation limited due to lack of IV contrast. Visualized lung bases show minimal right basilar atelectasis and probable pleural fluid. Partially rounded and lobular, pleural-based opacity in left lung base measuring approximately 2.4 cm, with some central lucencies or possible cavitation. Additional, smaller cystic focus in the inferolateral lingula. No radiopaque gallstones. Liver grossly unremarkable. Trace perihepatic fluid incidentally noted. Spleen grossly unremarkable. Pancreas grossly unremarkable. Rounded A densities off bilateral kidneys measuring up to 1.5 cm on the right. No apparent renal calcifications or significant hydronephrosis. Adrenal glands grossly unremarkable. Pelvis: Bowel grossly unremarkable. Appendix within normal limits. Small amount of nonspecific, free pelvic fluid. No loculated fluid collection. Abdominal aorta is nonaneurysmal. Axial skeleton grossly intact. IMPRESSION: 1. Probable bibasilar atelectasis and pleural-based, nodular densities in the left lung base and lingula, with some central cystic change or cavitation may represent rounded atelectasis versus infectious or inflammatory change, including septic emboli. Neoplastic or metastatic disease not completely excluded, and follow-up to resolution suggested. 2. Bilateral renal hypodensities possibly representing cyst(s), but nonspecific. Correlation with renal ultrasound may be confirmatory, as clinically indicated. 3. Small amount of nonspecific, free fluid in the abdomen and pelvis. Report Dictated on Final Dictated: 09/10/2018 6:35 pm Dictating Physician: MD FALCON WENDELL Signed Date and Time: 09/10/2018 6:47 pm Signed by: MD FALCON WENDELL Transcribed Date and Time: 09/10/2018 6:35 Normal [facility] X-W-Vyaogocv 08-24-2018 Glucose [Mass/Vol] SEE BELOW Normal [facility] Comment on above: Result Comment: Donald itell Assay Positive AB Reference range: Negative (NOTE) INTERPRETIVE INFORMATION: (1,3)-skdx-P-gyiezm (Fungitell) Less than 31 pg/mL ................... Negative 31-59 pg/mL .......................... Negative 60-79 pg/mL .......................... Indeterminate Greater than or equal to 80 pg/mL .... Positive The Fungitell test is indicated for presumptive diagnosis of fungal infection and should be used in conjunction with other diagnostic procedures. This test does not detect certain fungal species such as Cryptococcus, which produce very low levels of (1,3)-wavv-J-uvkero. This test will not detect the zygomycetes, such as Absidia, Mucor, and Rhizopus, which are not known to produce (1,3)-zsjp-D-bxskdb. In addition, the yeast phase of Blastomyces dermatitidis produces little (1,3)-pgfk-X-unstue and may not be detected by the assay. Performed by [employer] [address] [place] [id number] [email or web address] Roger Paiz MD, Lab. Director Hussain Comments 144 Unit: pg/mL Performing Laboratory: Performed By: #### P 14 #### [place] [address] Activated PTTon 08-23-2018 aPTT Coag (Bld) [Time] 136.1 s Critically high 23.0-32. 4 [facility] Comment on above: Result Comment: RESU LT RECHECKED Testing performed on alternate platform (Electro-Lumin[employer]). CORRECTED: Previous result = 136.1 RESULT RECHECKED, verified at 21:32 on 08/23/18. Unfractionated Heparin Therapeutic Ranges: Standard Heparin Nomogram: 53 to 78 seconds (anti-Xa level of 0.3 to 0.7 U/mL) Low Dose/ACS Nomogram: 49 to 67 seconds (anti-Xa level of 0.2 to 0.5 U/mL) Stroke Treatment Nomogram: 49 to 67 seconds (anti-Xa level of 0.2 to 0.5 U/mL) Note: The APTT therapeutic range has been determined for the current lot of laboratory APTT reagent in use throughout the [facility]. Performed By: #### P 14 #### [place] [id number] aPTT Coag (Bld) [Time] 28.1 s Normal 23.0-32.4 [facility] Comment on above: Result Comment: Unfr actionated Heparin Therapeutic Ranges: Standard Heparin Nomogram: 53 to 78 seconds (anti-Xa level of 0.3 to 0.7 U/mL) Low Dose/ACS Nomogram: 49 to 67 seconds (anti-Xa level of 0.2 to 0.5 U/mL) Stroke Treatment Nomogram: 49 to 67 seconds (anti-Xa level of 0.2 to 0.5 U/mL) Note: The APTT therapeutic range has been determined for the current lot of laboratory APTT reagent in use throughout the [facility]. Performed By: #### P 14 #### [place] [id number] aPTT Coag (Bld) [Time] 30.8 s Normal 23.0-32.4 [facility] Comment on above: Result Comment: Unfr actionated Heparin Therapeutic Ranges: Standard Heparin Nomogram: 53 to 78 seconds (anti-Xa level of 0.3 to 0.7 U/mL) Low Dose/ACS Nomogram: 49 to 67 seconds (anti-Xa level of 0.2 to 0.5 U/mL) Stroke Treatment Nomogram: 49 to 67 seconds (anti-Xa level of 0.2 to 0.5 U/mL) Note: The APTT therapeutic range has been determined for the current lot of laboratory APTT reagent in use throughout the [facility]. Performed By: #### P 14 #### [address] [address] Basic Panelon 08-23-2018 Creatinine [Mass/Vol] 2.47 mg/dL High 0.51-0.95 [facility] Comment on above: Performed By: #### P 14 #### [facility] [address] [place], [place] [address] Anion gap [Moles/Vol] 11 mmol/L Normal 8-16 [facility] Comment on above: Performed By: #### P 14 #### [facility] [address] [place], [place] [address] CO2 [Moles/Vol] 26 mmol/L Normal 21-32 [facility] Comment on above: Performed By: #### P 14 #### [facility] [address] [place], [place] [address] Glucose [Mass/Vol] 105 mg/dL High 70-99 [facility] Comment on above: Performed By: #### P 14 #### [facility] [address] [place], [place] [address] Urea nitrogen [Mass/Vol] 26 mg/dL High 7-18 [facility] Comment on above: Performed By: #### P 14 #### [facility] [address] [place], [place] [address] Calcium [Mass/Vol] 8.7 mg/dL Normal 8.5-10.1 [facility] Comment on above: Performed By: #### P 14 #### [facility] [address] [place], [place] [address] Chloride [Moles/Vol] 104 mmol/L Normal 98-[address] [facility] Comment on above: Performed By: #### P 14 #### [facility] [address] [place], [place] [address] Potassium [Moles/Vol] 3.4 mmol/L Low 3.5-5.1 [facility] Comment on above: Performed By: #### P 14 #### [facility] [address] [place], [place] [address] Sodium [Moles/Vol] 138 mmol/L Normal 136-145 [facility] Comment on above: Performed By: #### P 14 #### [facility] [address] [place], [place] [address] Creatinine Bloodon 9 Creatinine [Mass/Vol] 1.87 mg/dL High 0.51-0.95 [facility] Comment on above: Performed By: #### P 14 #### [facility] [address] [place] [address] Hemogramon 08-23-2018 Erythrocyte distribution width (RBC) [Ratio] 15.4 % High 11.7-14.4 [facility] Comment on above: Performed By: #### P 14 #### [facility] [address] [place] [address] Hematocrit (Bld) [Volume fraction] 24.2 % Low 34.1-44.9 [facility] Comment on above: Performed By: #### P 14 #### [facility] [address] [place] [address] Hemoglobin (Bld) [Mass/Vol] 8.0 g/dL Low 11.2-15.7 [facility] Comment on above: Performed By: #### P 14 #### [facility] [address] [place] [address] MCH (RBC) [Entitic mass] 29.1 pg Normal 25.6-32.2 [facility] Comment on above: Performed By: #### P 14 #### [facility] [address] [place] [address] MCHC (RBC) [Mass/Vol] 33.1 % Normal 31.6-34.8 [facility] Comment on above: Performed By: #### P 14 #### [facility] [address] [place] [address] MCV (RBC) [Entitic vol] 88.0 fL Normal 79.4-94.8 [facility] Comment on above: Performed By: #### P 14 #### [facility] [address] [place] [address] Platelet mean volume (Bld) [Entitic vol] 10.2 fL Normal 9.4-12.3 [facility] Comment on above: Performed By: #### P 14 #### [facility] [address] [place] [address] Platelets (Bld) [#/Vol] 273 thou/cmm Normal 182-369 [facility] Comment on above: Performed By: #### P 14 #### [facility] [address] [place] [address] RBC (Bld) [#/Vol] 2.75 mil/cmm Low 3.93-5.22 [facility] Comment on above: Performed By: #### P 14 #### [facility] [address] [place] [address] RDW SD 49.0 fl High 36.4-46.3 [facility] Comment on above: Performed By: #### P 14 #### [facility] [address] [place] [address] WBC (Bld) [#/Vol] 25.86 thou/cmm Critically high 3.98-10.0 4 [facility] Comment on above: Performed By: #### P 14 #### [facility] [address] [place] [address] Erythrocyte distribution width (RBC) [Ratio] 15.3 % High 11.7-14.4 [facility] Comment on above: Performed By: #### P 14 #### [facility] [address] [place] [address] Hematocrit (Bld) [Volume fraction] 24.3 % Low 34.1-44.9 [facility] Comment on above: Performed By: #### P 14 #### [facility] [address] [place] [address] Hemoglobin (Bld) [Mass/Vol] 7.5 g/dL Low 11.2-15.7 [facility] Comment on above: Performed By: #### P 14 #### [facility] [address] [place] [address] MCH (RBC) [Entitic mass] 28.1 pg Normal 25.6-32.2 [facility] Comment on above: Performed By: #### P 14 #### [facility] [address] [place] [address] MCHC (RBC) [Mass/Vol] 30.9 % Low 31.6-34.8 [facility] Comment on above: Performed By: #### P 14 #### [facility] [address] [place] [id number] MCV (RBC) [Entitic vol] 91.0 fL Normal 79.4-94.8 [facility] Comment on above: Performed By: #### P 14 #### [facility] [address] [place] [id number] Platelet mean volume (Bld) [Entitic vol] 10.6 fL Normal 9.4-12.3 [facility] Comment on above: Performed By: #### P 14 #### [facility] [address] [place] [id number] Platelets (Bld) [#/Vol] 299 thou/cmm Normal 182-369 [facility] Comment on above: Performed By: #### P 14 #### [facility] [address] [place] [id number] RBC (Bld) [#/Vol] 2.67 mil/cmm Low 3.93-5.22 [facility] Comment on above: Performed By: #### P 14 #### [facility] [address] [place] [address] RDW SD 50.5 fl High 36.4-46.3 [facility] Comment on above: Performed By: #### P 14 #### [facility] [address] [place] [id number] WBC (Bld) [#/Vol] 14.82 thou/cmm High 3.98-10.04 [facility] Comment on above: Performed By: #### P 14 #### [facility] [address] [place] [address] MDRD GFRon 08-23-2018 GFR/1.73 sq M predicted among non-blacks MDRD (S/P/Bld) [Vol rate/Area] 30.69 mL/min/{1.73_m2} Normal >60mL/min/1.7 3m2 [facility] Comment on above: Result Comment: If t he patient is , multiply the result by 1.210. Performed By: #### A PTT #### [facility] [address] [place] [address] Protimeon 08-23-2018 INR Coag (PPP) [Relative time] 1.27 {INR} Normal 0.90-1.30 [facility] Comment on above: Result Comment: Celina min K Antagonist (VKA) Therapeutic Range: INR 2 to 3 (Target INR of 2.5) Note: For patients treated with VKA drugs, such as warfarin, the [place] [employer] 2012 Guideline recommends a therapeutic INR range of 2 to 3 (target INR of 2.5). This recommendation includes high-risk patients with antiphospholipid syndrome with previous arterial or venous thromboembolism, current-generation mechanical or bioprosthetic aortic heart valve replacement. VKA Therapeutic Range for some Mechanical Valve Replacement: INR 2.5 to 3.5 (Target INR of 3) Note: Patients with mechanical aortic valve replacement and additional risk factors for thromboembolic events (atrial fibrillation, previous thromboembolism, LV dysfunction, hypercoagulable conditions) or an older generation mechanical AVR (i.e., ball in-Cage) or any mechanical MVR should have a INR therapeutic range of 2.5 to 3.5 target INR of 3). Heidi GH, et al. Chest 2012; 141:7S-47S Miranda RA et al. [facility] 2017; 70: 252-289 Performed By: #### P 14 #### [facility] [address] [place], [place] [address] PT Coag (PPP) [Time] 13.0 s Normal 9.7-13.[address] [facility] Comment on above: Performed By: #### P 14 #### [facility] [address] [place], [place] [address] Activated PTTon 08-22-2018 aPTT Coag (Bld) [Time] 72.5 s High 23.0-32.4 [facility] Comment on above: Result Comment: Unfr actionated Heparin Therapeutic Ranges: Standard Heparin Nomogram: 53 to 78 seconds (anti-Xa level of 0.3 to 0.7 U/mL) Low Dose/ACS Nomogram: 49 to 67 seconds (anti-Xa level of 0.2 to 0.5 U/mL) Stroke Treatment Nomogram: 49 to 67 seconds (anti-Xa level of 0.2 to 0.5 U/mL) Note: The APTT therapeutic range has been determined for the current lot of laboratory APTT reagent in use throughout the [facility]. Performed By: #### P 14 #### [facility] [address] [place], [place] [address] Basic Panelon 08-22-2018 Anion gap [Moles/Vol] 11 mmol/L Normal 8-16 [facility] Comment on above: Performed By: #### P 14 #### [facility] [address] [place], [place] [address] Potassium [Moles/Vol] 3.5 mmol/L Normal 3.5-5.1 [facility] Comment on above: Result Comment: SPEC IMEN SLIGHTLY HEMOLYZED Performed By: #### P 14 #### [facility] [address] [place], [place] [address] Creatinine [Mass/Vol] 2.36 mg/dL High 0.51-0.95 [facility] Comment on above: Performed By: #### P 14 #### [facility] [address] [place], [place] [address] CO2 [Moles/Vol] 27 mmol/L Normal 21-32 [facility] Comment on above: Performed By: #### P 14 #### [facility] [address] [place], [place] [address] Glucose [Mass/Vol] 122 mg/dL High 70-99 [facility] Comment on above: Performed By: #### P 14 #### [facility] [address] [place], [place] [address] Urea nitrogen [Mass/Vol] 20 mg/dL High 7-18 [facility] Comment on above: Performed By: #### P 14 #### [facility] [address] [place], [place] [address] Calcium [Mass/Vol] 8.4 mg/dL Low 8.5-10.1 [facility] Comment on above: Performed By: #### P 14 #### [facility] [address] [place], [place] [address] Chloride [Moles/Vol] 104 mmol/L Normal 98-[address] [facility] Comment on above: Performed By: #### P 14 #### [facility] [address] [place] [address] Sodium [Moles/Vol] 138 mmol/L Normal 136-145 [facility] Comment on above: Performed By: #### P 14 #### [facility] [address] [place] [address] Hemogramon 08-22-2018 Erythrocyte distribution width (RBC) [Ratio] 15.3 % High 11.7-14.4 [facility] Comment on above: Performed By: #### P 14 #### [facility] [address] [place] [address] Hematocrit (Bld) [Volume fraction] 23.6 % Low 34.1-44.9 [facility] Comment on above: Performed By: #### P 14 #### [facility] [address] [place] [address] Hemoglobin (Bld) [Mass/Vol] 7.6 g/dL Low 11.2-15.7 [facility] Comment on above: Performed By: #### P 14 #### [facility] [address] [place] [address] MCH (RBC) [Entitic mass] 28.8 pg Normal 25.6-32.2 [facility] Comment on above: Performed By: #### P 14 #### [facility] [address] [place] [address] MCHC (RBC) [Mass/Vol] 32.2 % Normal 31.6-34.8 [facility] Comment on above: Performed By: #### P 14 #### [facility] [address] [place] [address] MCV (RBC) [Entitic vol] 89.4 fL Normal 79.4-94.8 [facility] Comment on above: Performed By: #### P 14 #### [facility] [address] [place] [address] Platelet mean volume (Bld) [Entitic vol] 10.1 fL Normal 9.4-12.3 [facility] Comment on above: Performed By: #### P 14 #### [facility] [address] [place] [id number] Platelets (Bld) [#/Vol] 234 thou/cmm Normal 182-369 [facility] Comment on above: Performed By: #### P 14 #### [facility] [address] [place], [place] [address] RBC (Bld) [#/Vol] 2.64 mil/cmm Low 3.93-5.22 [facility] Comment on above: Performed By: #### P 14 #### [facility] [address] [place], [place] [address] RDW SD 49.1 fl High 36.4-46.3 [facility] Comment on above: Performed By: #### P 14 #### [facility] [address] [place], [place] [address] WBC (Bld) [#/Vol] 14.41 thou/cmm High 3.98-10.04 [facility] Comment on above: Performed By: #### P 14 #### [facility] [address] [place] [address] Protimeon 08-22-2018 INR Coag (PPP) [Relative time] 3.06 {INR} High 0.90-1.30 [facility] Comment on above: Result Comment: Celina min K Antagonist (VKA) Therapeutic Range: INR 2 to 3 (Target INR of 2.5) Note: For patients treated with VKA drugs, such as warfarin, the [place] [employer] 2012 Guideline recommends a therapeutic INR range of 2 to 3 (target INR of 2.5). This recommendation includes high-risk patients with antiphospholipid syndrome with previous arterial or venous thromboembolism, current-generation mechanical or bioprosthetic aortic heart valve replacement. VKA Therapeutic Range for some Mechanical Valve Replacement: INR 2.5 to 3.5 (Target INR of 3) Note: Patients with mechanical aortic valve replacement and additional risk factors for thromboembolic events (atrial fibrillation, previous thromboembolism, LV dysfunction, hypercoagulable conditions) or an older generation mechanical AVR (i.e., ball in-Cage) or any mechanical MVR should have a INR therapeutic range of 2.5 to 3.5 target INR of 3). Heidi GH, et al. Chest 2012; 141:7S-47S Miranda RA et al. JACC 2017; 70: 252-289 Performed By: #### P 14 #### [facility] [address] [place], [place] [address] PT Coag (PPP) [Time] 29.3 s High 9.7-13.[address] [facility] Comment on above: Performed By: #### P 14 #### [facility] [address] [place], [place] [address] Activated PTTon 08-21-2018 aPTT Coag (Bld) [Time] 78.1 s High 23.0-32.4 [facility] Comment on above: Result Comment: Unfr actionated Heparin Therapeutic Ranges: Standard Heparin Nomogram: 53 to 78 seconds (anti-Xa level of 0.3 to 0.7 U/mL) Low Dose/ACS Nomogram: 49 to 67 seconds (anti-Xa level of 0.2 to 0.5 U/mL) Stroke Treatment Nomogram: 49 to 67 seconds (anti-Xa level of 0.2 to 0.5 U/mL) Note: The APTT therapeutic range has been determined for the current lot of laboratory APTT reagent in use throughout the [facility]. Performed By: #### P 14 #### [facility] [address] [place], [place] [address] aPTT Coag (Bld) [Time] 72.6 s High 23.0-32.4 [facility] Comment on above: Result Comment: Unfr actionated Heparin Therapeutic Ranges: Standard Heparin Nomogram: 53 to 78 seconds (anti-Xa level of 0.3 to 0.7 U/mL) Low Dose/ACS Nomogram: 49 to 67 seconds (anti-Xa level of 0.2 to 0.5 U/mL) Stroke Treatment Nomogram: 49 to 67 seconds (anti-Xa level of 0.2 to 0.5 U/mL) Note: The APTT therapeutic range has been determined for the current lot of laboratory APTT reagent in use throughout the [facility]. Performed By: #### P 14 #### [facility] [address] [place], [place] [address] aPTT Coag (Bld) [Time] 59.0 s High 23.0-32.4 [facility] Comment on above: Result Comment: Unfr actionated Heparin Therapeutic Ranges: Standard Heparin Nomogram: 53 to 78 seconds (anti-Xa level of 0.3 to 0.7 U/mL) Low Dose/ACS Nomogram: 49 to 67 seconds (anti-Xa level of 0.2 to 0.5 U/mL) Stroke Treatment Nomogram: 49 to 67 seconds (anti-Xa level of 0.2 to 0.5 U/mL) Note: The APTT therapeutic range has been determined for the current lot of laboratory APTT reagent in use throughout the [facility]. Performed By: #### P 14 #### [place] [address] aPTT Coag (Bld) [Time] 60.6 s High 23.0-32.4 [facility] Comment on above: Result Comment: Unfr actionated Heparin Therapeutic Ranges: Standard Heparin Nomogram: 53 to 78 seconds (anti-Xa level of 0.3 to 0.7 U/mL) Low Dose/ACS Nomogram: 49 to 67 seconds (anti-Xa level of 0.2 to 0.5 U/mL) Stroke Treatment Nomogram: 49 to 67 seconds (anti-Xa level of 0.2 to 0.5 U/mL) Note: The APTT therapeutic range has been determined for the current lot of laboratory APTT reagent in use throughout the [facility]. Performed By: #### P 14 #### [place] [address] aPTT Coag (Bld) [Time] 55.4 s High 23.0-32.4 [facility] Comment on above: Result Comment: Unfr actionated Heparin Therapeutic Ranges: Standard Heparin Nomogram: 53 to 78 seconds (anti-Xa level of 0.3 to 0.7 U/mL) Low Dose/ACS Nomogram: 49 to 67 seconds (anti-Xa level of 0.2 to 0.5 U/mL) Stroke Treatment Nomogram: 49 to 67 seconds (anti-Xa level of 0.2 to 0.5 U/mL) Note: The APTT therapeutic range has been determined for the current lot of laboratory APTT reagent in use throughout the [facility]. Performed By: #### P 14 #### [place] [address] Basic Panelon 08-21-2018 Creatinine [Mass/Vol] 2.51 mg/dL High 0.51-0.95 [facility] Comment on above: Performed By: #### P 14 #### [facility] [address] [place], [place] [address] Anion gap [Moles/Vol] 12 mmol/L Normal 8-16 [facility] Comment on above: Performed By: #### P 14 #### [facility] [address] [place], [place] [address] CO2 [Moles/Vol] 27 mmol/L Normal 21-32 [facility] Comment on above: Performed By: #### P 14 #### [facility] [address] [place], [place] [address] Urea nitrogen [Mass/Vol] 20 mg/dL High 7-18 [facility] Comment on above: Performed By: #### P 14 #### [facility] [address] [place], [place] [address] Calcium [Mass/Vol] 8.6 mg/dL Normal 8.5-10.1 [facility] Comment on above: Performed By: #### P 14 #### [facility] [address] [place], [place] [address] Glucose [Mass/Vol] 104 mg/dL High 70-99 [facility] Comment on above: Performed By: #### P 14 #### [facility] [address] [place], [place] [address] Chloride [Moles/Vol] 103 mmol/L Normal 98-[address] [facility] Comment on above: Performed By: #### P 14 #### [facility] [address] [place], [place] [address] Potassium [Moles/Vol] 2.8 mmol/L Low 3.5-5.1 [facility] Comment on above: Performed By: #### P 14 #### [facility] [address] [place], [place] [address] Sodium [Moles/Vol] 139 mmol/L Normal 136-145 [facility] Comment on above: Performed By: #### P 14 #### [facility] [address] [place] [address] Hemogramon 08-21-2018 Erythrocyte distribution width (RBC) [Ratio] 15.1 % High 11.7-14.4 [facility] Comment on above: Performed By: #### P 14 #### [facility] [address] [place] [address] Hematocrit (Bld) [Volume fraction] 23.3 % Low 34.1-44.9 [facility] Comment on above: Performed By: #### P 14 #### [facility] [address] [place] [address] Hemoglobin (Bld) [Mass/Vol] 7.3 g/dL Low 11.2-15.7 [facility] Comment on above: Performed By: #### P 14 #### [facility] [address] [place] [address] MCH (RBC) [Entitic mass] 28.4 pg Normal 25.6-32.2 [facility] Comment on above: Performed By: #### P 14 #### [facility] [address] [place] [address] MCHC (RBC) [Mass/Vol] 31.3 % Low 31.6-34.8 [facility] Comment on above: Performed By: #### P 14 #### [facility] [address] [place] [address] MCV (RBC) [Entitic vol] 90.7 fL Normal 79.4-94.8 [facility] Comment on above: Performed By: #### P 14 #### [facility] [address] [place] [address] Platelet mean volume (Bld) [Entitic vol] 10.4 fL Normal 9.4-12.3 [facility] Comment on above: Performed By: #### P 14 #### [facility] [address] [place], [place] [address] Platelets (Bld) [#/Vol] 217 thou/cmm Normal 182-369 [facility] Comment on above: Performed By: #### P 14 #### [facility] [address] [place] [id number] RBC (Bld) [#/Vol] 2.57 mil/cmm Low 3.93-5.22 [facility] Comment on above: Performed By: #### P 14 #### [facility] [address] [place], [place] [address] RDW SD 49.1 fl High 36.4-46.3 [facility] Comment on above: Performed By: #### P 14 #### [facility] [address] [place], [place] [address] WBC (Bld) [#/Vol] 13.97 thou/cmm High 3.98-10.04 [facility] Comment on above: Performed By: #### P 14 #### [facility] [address] [place], [place] [address] Immunodeficiency [facility] 08-21 Immunodeficiency [facility] SEE BELOW Normal [facility] Comment on above: Result Comment: CD3+ T Cell % 95 H 60-89 % Specimen age is outside of the required limit of the IVD status reagent employed in this test. However, studies have been performed by the Flow Cytometry laboratory at the [facility] showing acceptable correlations within 48 hours of draw. LYMPHOCYTE VIABILITY WAS 98% CD3+ T Cell No. 7259 H [phone] Cells/uL CD4+CD3+ T Cell % 29 L 34-61 % CD4+CD3+ T Cell No. 2191 H [phone] Cells/uL CD3+CD8+ T Cell % 64 H 10-41 % CD3+CD8+ T Cell No. 4933 H 175-958 Cells/uL CD19+ B Cell % 2 L 5-22 % CD19+ B Cell No. 167 75-660 Cells/uL NK Cell % 3 L 5-25 % NK Cell No. 196 102-565 Cells/uL CD4/CD8 Ratio 0.44 L 1.10-3.25 Immunodef. Comment SEE BELOW Clinical interpretation of lymphocyte subsets must be made with caution. Relative and absolute values may be profoundly affected by immunosuppressive or cytotoxic therapy, and be abnormal in a wide variety of infectious, inflammatory, autoimmune and neoplastic disorders. The following number of cluster designated antibodies were used for the definition of the above reported populations: CD3, CD4, CD8, CD16, CD19, and CD56. This test was developed and its performance characteristics determined by [facility]'s [facility] [place] ([facility]). It has not been cleared or approved by the FDA. [facility] is regulated under CLIA as qualified to perform high complexity testing. This test is used for clinical purposes. It should not be regarded as investigational or for research. Performing Laboratory: [facility] [address] [place] [address] Performed By: #### P 14 #### [place] [address] Misc. Teston 08-21-2018 Misc. Test Result SEE BELOW Normal [facility] Comment on above: Result Comment: CD3+ T Cell % SEE BELOW 60-89 % Duplicate request SEE [id number] FOR RESULTS Performing Laboratory: [facility] [address] [place] [address] Performed By: #### A PTT #### [place] [address] Protimeon 08-21-2018 INR Coag (PPP) [Relative time] 1.86 {INR} High 0.90-1.30 [facility] Comment on above: Result Comment: Celina min K Antagonist (VKA) Therapeutic Range: INR 2 to 3 (Target INR of 2.5) Note: For patients treated with VKA drugs, such as warfarin, the [place] [employer] 2012 Guideline recommends a therapeutic INR range of 2 to 3 (target INR of 2.5). This recommendation includes high-risk patients with antiphospholipid syndrome with previous arterial or venous thromboembolism, current-generation mechanical or bioprosthetic aortic heart valve replacement. VKA Therapeutic Range for some Mechanical Valve Replacement: INR 2.5 to 3.5 (Target INR of 3) Note: Patients with mechanical aortic valve replacement and additional risk factors for thromboembolic events (atrial fibrillation, previous thromboembolism, LV dysfunction, hypercoagulable conditions) or an older generation mechanical AVR (i.e., ball in-Cage) or any mechanical MVR should have a INR therapeutic range of 2.5 to 3.5 target INR of 3). Heidi BOSCH, et al. Chest 2012; 141:7S-47S Miranda [place] et al. JACC 2017; 70: 252-289 Performed By: #### P 14 #### [address] [place], [place] [address] PT Coag (PPP) [Time] 18.5 s High 9.7-13.[address] [facility] Comment on above: Performed By: #### P 14 #### [facility] [address] [place], [place] [address] Activated PTTon 08-20-2018 aPTT Coag (Bld) [Time] 48.5 s High 23.0-32.4 [facility] Comment on above: Result Comment: Unfr actionated Heparin Therapeutic Ranges: Standard Heparin Nomogram: 53 to 78 seconds (anti-Xa level of 0.3 to 0.7 U/mL) Low Dose/ACS Nomogram: 49 to 67 seconds (anti-Xa level of 0.2 to 0.5 U/mL) Stroke Treatment Nomogram: 49 to 67 seconds (anti-Xa level of 0.2 to 0.5 U/mL) Note: The APTT therapeutic range has been determined for the current lot of laboratory APTT reagent in use throughout the [facility]. Performed By: #### P 14 #### [address] [address] aPTT Coag (Bld) [Time] 40.7 s High 23.0-32.4 [facility] Comment on above: Result Comment: Unfr actionated Heparin Therapeutic Ranges: Standard Heparin Nomogram: 53 to 78 seconds (anti-Xa level of 0.3 to 0.7 U/mL) Low Dose/ACS Nomogram: 49 to 67 seconds (anti-Xa level of 0.2 to 0.5 U/mL) Stroke Treatment Nomogram: 49 to 67 seconds (anti-Xa level of 0.2 to 0.5 U/mL) Note: The APTT therapeutic range has been determined for the current lot of laboratory APTT reagent in use throughout the [facility]. Performed By: #### P 14 #### [facility] [address] [place], [place] [address] aPTT Coag (Bld) [Time] 41.4 s High 23.0-32.4 [facility] Comment on above: Result Comment: Unfr actionated Heparin Therapeutic Ranges: Standard Heparin Nomogram: 53 to 78 seconds (anti-Xa level of 0.3 to 0.7 U/mL) Low Dose/ACS Nomogram: 49 to 67 seconds (anti-Xa level of 0.2 to 0.5 U/mL) Stroke Treatment Nomogram: 49 to 67 seconds (anti-Xa level of 0.2 to 0.5 U/mL) Note: The APTT therapeutic range has been determined for the current lot of laboratory APTT reagent in use throughout the [facility]. Performed By: #### A PTT #### [place] [address] aPTT Coag (Bld) [Time] 27.6 s Normal 23.0-32.4 [facility] Comment on above: Result Comment: Unfr actionated Heparin Therapeutic Ranges: Standard Heparin Nomogram: 53 to 78 seconds (anti-Xa level of 0.3 to 0.7 U/mL) Low Dose/ACS Nomogram: 49 to 67 seconds (anti-Xa level of 0.2 to 0.5 U/mL) Stroke Treatment Nomogram: 49 to 67 seconds (anti-Xa level of 0.2 to 0.5 U/mL) Note: The APTT therapeutic range has been determined for the current lot of laboratory APTT reagent in use throughout the [facility]. Performed By: #### A PTT #### [place] [address] Basic Panelon 08-20-2018 Creatinine [Mass/Vol] 2.64 mg/dL High 0.51-0.95 [facility] Comment on above: Performed By: #### A PTT #### [place] [address] Anion gap [Moles/Vol] 12 mmol/L Normal 8-16 [facility] Comment on above: Performed By: #### A PTT #### [place] [address] Potassium [Moles/Vol] 3.6 mmol/L Normal 3.5-5.1 [facility] Comment on above: Result Comment: SPEC IMEN SLIGHTLY HEMOLYZED Performed By: #### A PTT #### [place] [address] CO2 [Moles/Vol] 28 mmol/L Normal 21-32 [facility] Comment on above: Performed By: #### A PTT #### [facility] [address] [place], [place] [address] Glucose [Mass/Vol] 87 mg/dL Normal 70-99 [facility] Comment on above: Performed By: #### A PTT #### [facility] [address] [place], [place] [address] Urea nitrogen [Mass/Vol] 19 mg/dL High 7-18 [facility] Comment on above: Performed By: #### A PTT #### [facility] [address] [place], [place] [address] Calcium [Mass/Vol] 8.3 mg/dL Low 8.5-10.1 [facility] Comment on above: Performed By: #### A PTT #### [facility] [address] [place], [place] [address] Chloride [Moles/Vol] 101 mmol/L Normal 98-[address] [facility] Comment on above: Performed By: #### A PTT #### [facility] [address] [place], [place] [address] Sodium [Moles/Vol] 137 mmol/L Normal 136-145 [facility] Comment on above: Performed By: #### A PTT #### [facility] [address] [place], [place] [address] Cult Bloodon 08-20-2018 Cult Blood Test performed at [facility] No growth Normal [facility] Comment on above: Performed By: #### P 14 #### [facility] [address] [place], [place] [address] Cult and Smr Respiratoryon 0 08-20-2018 Cult and Smr Respiratory Test performed at [facility] Absence of normal oropharyngeal reynaldo No organisms seen Many Polymorphonuclear leukocytes Few Mononuclear cells Few Squamous epithelial cells ORGANISM: *Yeast not Love albicans or Cryptococcus neoformans (ID: 1) Rare Normal [facility] Comment on above: Performed By: #### P 14 #### [facility] [address] [place], [place] [address] Hemogramon 08-20-2018 Erythrocyte distribution width (RBC) [Ratio] 15.5 % High 11.7-14.4 [facility] Comment on above: Performed By: #### A PTT #### [facility] [address] [place] [address] Hematocrit (Bld) [Volume fraction] 22.6 % Low 34.1-44.9 [facility] Comment on above: Performed By: #### A PTT #### [facility] [address] [place] [address] Hemoglobin (Bld) [Mass/Vol] 7.2 g/dL Low 11.2-15.7 [facility] Comment on above: Performed By: #### A PTT #### [facility] [address] [place] [address] MCH (RBC) [Entitic mass] 28.7 pg Normal 25.6-32.2 [facility] Comment on above: Performed By: #### A PTT #### [place] [address] MCHC (RBC) [Mass/Vol] 31.9 % Normal 31.6-34.8 [facility] Comment on above: Performed By: #### A PTT #### [facility] [address] [place] [address] MCV (RBC) [Entitic vol] 90.0 fL Normal 79.4-94.8 [facility] Comment on above: Performed By: #### A PTT #### [facility] [address] [place] [address] Platelet mean volume (Bld) [Entitic vol] 10.6 fL Normal 9.4-12.3 [facility] Comment on above: Performed By: #### A PTT #### [facility] [address] [place] [address] Platelets (Bld) [#/Vol] 210 thou/cmm Normal 182-369 [facility] Comment on above: Performed By: #### A PTT #### [facility] [address] [place], [place] [address] RBC (Bld) [#/Vol] 2.51 mil/cmm Low 3.93-5.22 [facility] Comment on above: Performed By: #### A PTT #### [facility] [address] [place] [address] RDW SD 50.4 fl High 36.4-46.3 [facility] Comment on above: Performed By: #### A PTT #### [facility] [address] [place] [address] WBC (Bld) [#/Vol] 14.23 thou/cmm High 3.98-10.04 [facility] Comment on above: Performed By: #### A PTT #### [facility] [address] [place] [address] Micro Miscellaneouson 2018 Micro Miscellaneous Test performed at [facility] Pneumocystis jirovecii,Qualitative Real-Time PCR: \\X09\\ \\X09\\ P JIROVECII DNA QL PCR: \\X09\\NOT DETECTED REFERENCE RANGE: NOT DETECTED This test was developed and its analytical performance characteristics have been determined by [facility]. It has not been cleared or approved by FDA. This assay has been validated pursuant to the CLIA regulations and is used for clinical purposes. Test performed by [facility] Normal [facility] Comment on above: Performed By: #### P 14 #### [place] [address] Misc. Teston 08-20-2018 [facility] Order Code CD4ABS Normal [facility] Comment on above: Performed By: #### A PTT #### [place] [address] Test Name CD4 Count Normal [facility] Comment on above: Performed By: #### A PTT #### [place] [address] Protimeon 08-20-2018 INR Coag (PPP) [Relative time] 1.28 {INR} Normal 0.90-1.30 [facility] Comment on above: Result Comment: Celina min K Antagonist (VKA) Therapeutic Range: INR 2 to 3 (Target INR of 2.5) Note: For patients treated with VKA drugs, such as warfarin, the [place] [employer] 2012 Guideline recommends a therapeutic INR range of 2 to 3 (target INR of 2.5). This recommendation includes high-risk patients with antiphospholipid syndrome with previous arterial or venous thromboembolism, current-generation mechanical or bioprosthetic aortic heart valve replacement. VKA Therapeutic Range for some Mechanical Valve Replacement: INR 2.5 to 3.5 (Target INR of 3) Note: Patients with mechanical aortic valve replacement and additional risk factors for thromboembolic events (atrial fibrillation, previous thromboembolism, LV dysfunction, hypercoagulable conditions) or an older generation mechanical AVR (i.e., ball in-Cage) or any mechanical MVR should have a INR therapeutic range of 2.5 to 3.5 target INR of 3). Heidi GH, et al. Chest 2012; 141:7S-47S Miranda RA, et al. [facility] 2017; 70: 252-289 Performed By: #### A PTT #### [facility] [address] [place], [place] [address] PT Coag (PPP) [Time] 13.1 s High 9.7-13.[address] [facility] Comment on above: Performed By: #### A PTT #### [address] [address] Activated PTTon 08-19-2018 aPTT Coag (Bld) [Time] 42.7 s High 23.0-32.4 [facility] Comment on above: Result Comment: Unfr actionated Heparin Therapeutic Ranges: Standard Heparin Nomogram: 53 to 78 seconds (anti-Xa level of 0.3 to 0.7 U/mL) Low Dose/ACS Nomogram: 49 to 67 seconds (anti-Xa level of 0.2 to 0.5 U/mL) Stroke Treatment Nomogram: 49 to 67 seconds (anti-Xa level of 0.2 to 0.5 U/mL) Note: The APTT therapeutic range has been determined for the current lot of laboratory APTT reagent in use throughout the [facility]. Performed By: #### A PTT #### [facility] [address] [place], [place] [address] Basic Panelon 08-19-2018 Creatinine [Mass/Vol] 3.34 mg/dL High 0.51-0.95 [facility] Comment on above: Performed By: #### A PTT #### [facility] [address] [place], [place] [address] Anion gap [Moles/Vol] 12 mmol/L Normal 8-16 [facility] Comment on above: Performed By: #### A PTT #### [facility] [address] [place], [place] [address] CO2 [Moles/Vol] 26 mmol/L Normal 21-32 [facility] Comment on above: Performed By: #### A PTT #### [facility] [address] [place], [place] [address] Glucose [Mass/Vol] 84 mg/dL Normal 70-99 [facility] Comment on above: Performed By: #### A PTT #### [facility] [address] [place], [place] [address] Urea nitrogen [Mass/Vol] 31 mg/dL High 7-18 [facility] Comment on above: Performed By: #### A PTT #### [facility] [address] [place], [place] [address] Calcium [Mass/Vol] 8.6 mg/dL Normal 8.5-10.1 [facility] Comment on above: Performed By: #### A PTT #### [facility] [address] [place], [place] [address] Chloride [Moles/Vol] 102 mmol/L Normal 98-[address] [facility] Comment on above: Performed By: #### A PTT #### [facility] [address] [place], [place] [address] Potassium [Moles/Vol] 3.3 mmol/L Low 3.5-5.1 [facility] Comment on above: Performed By: #### A PTT #### [facility] [address] [place], [place] [address] Sodium [Moles/Vol] 137 mmol/L Normal 136-145 [facility] Comment on above: Performed By: #### A PTT #### [facility] [address] [place], [place] [address] Blood Gas Arterialon 0530-2 019 FIO2 35 % Normal [facility] Comment on above: Performed By: #### A PTT #### [facility] [address] [place] [address] Base Excess 0.0 mmol/L Normal -3.0-3.0 [facility] Comment on above: Performed By: #### A PTT #### [facility] [address] [place] [address] HCO3 (Bld) [Moles/Vol] 22.7 mmol/L Normal 21.0-28.0 [facility] Comment on above: Performed By: #### A PTT #### [facility] [address] [place] [address] O2% Sat Arterial 88.7 % Low 96.0-100.0 [facility] Comment on above: Performed By: #### A PTT #### [facility] [address] [place] [address] PCO2 Arterial 30.7 mm Hg Low 35.0-45.0 [facility] Comment on above: Performed By: #### A PTT #### [facility] [address] [place] [address] pH Arterial 7.482 High 7.350-7.450 [facility] Comment on above: Performed By: #### A PTT #### [facility] [address] [place] [address] PO2 Arterial 54.2 mm Hg Low 83.0-108.0 [facility] Comment on above: Performed By: #### A PTT #### [facility] [address] [place] [address] Cult Bloodon 08-19-2018 Cult Blood Test performed at [facility] No growth Normal [facility] Comment on above: Performed By: #### P 14 #### [facility] [address] [place] [address] Frozen Plasma (Thawed Plasma )on 08-19-2018 FFP unit 1 Done Normal [facility] Comment on above: Performed By: #### A PTT #### [facility] [address] [place] [address] FFP unit 2 Done Normal [facility] Comment on above: Performed By: #### A PTT #### [place] [address] Hemogramon 08-19-2018 Erythrocyte distribution width (RBC) [Ratio] 15.2 % High 11.7-14.4 [facility] Comment on above: Performed By: #### A PTT #### [facility] [address] [place] [address] Hematocrit (Bld) [Volume fraction] 24.1 % Low 34.1-44.9 [facility] Comment on above: Performed By: #### A PTT #### [facility] [address] [place] [address] Hemoglobin (Bld) [Mass/Vol] 7.7 g/dL Low 11.2-15.7 [facility] Comment on above: Performed By: #### A PTT #### [facility] [address] [place] [address] MCH (RBC) [Entitic mass] 28.5 pg Normal 25.6-32.2 [facility] Comment on above: Performed By: #### A PTT #### [facility] [address] [place] [address] MCHC (RBC) [Mass/Vol] 32.0 % Normal 31.6-34.8 [facility] Comment on above: Performed By: #### A PTT #### [facility] [address] [place] [address] MCV (RBC) [Entitic vol] 89.3 fL Normal 79.4-94.8 [facility] Comment on above: Performed By: #### A PTT #### [facility] [address] [place] [address] Platelet mean volume (Bld) [Entitic vol] 10.5 fL Normal 9.4-12.3 [facility] Comment on above: Performed By: #### A PTT #### [facility] [address] [place] [address] Platelets (Bld) [#/Vol] 231 thou/cmm Normal 182-369 [facility] Comment on above: Performed By: #### A PTT #### [facility] [address] [place] [address] RBC (Bld) [#/Vol] 2.70 mil/cmm Low 3.93-5.22 [facility] Comment on above: Performed By: #### A PTT #### [facility] [address] [place], [place] [address] RDW SD 49.1 fl High 36.4-46.3 [facility] Comment on above: Performed By: #### A PTT #### [facility] [address] [place], [place] [address] WBC (Bld) [#/Vol] 19.07 thou/cmm High 3.98-10.04 [facility] Comment on above: Performed By: #### A PTT #### [facility] [address] [place], [place] [address] IgGon 08-19-2018 IgG [Mass/Vol] 997 mg/dL Normal 700-1600 [facility] Comment on above: Performed By: #### A PTT #### [facility] [address] [place] [address] Protimeon 08-19-2018 INR Coag (PPP) [Relative time] 1.70 {INR} High 0.90-1.30 [facility] Comment on above: Result Comment: Celina min K Antagonist (VKA) Therapeutic Range: INR 2 to 3 (Target INR of 2.5) Note: For patients treated with VKA drugs, such as warfarin, the [place] [employer] 2012 Guideline recommends a therapeutic INR range of 2 to 3 (target INR of 2.5). This recommendation includes high-risk patients with antiphospholipid syndrome with previous arterial or venous thromboembolism, current-generation mechanical or bioprosthetic aortic heart valve replacement. VKA Therapeutic Range for some Mechanical Valve Replacement: INR 2.5 to 3.5 (Target INR of 3) Note: Patients with mechanical aortic valve replacement and additional risk factors for thromboembolic events (atrial fibrillation, previous thromboembolism, LV dysfunction, hypercoagulable conditions) or an older generation mechanical AVR (i.e., ball in-Cage) or any mechanical MVR should have a INR therapeutic range of 2.5 to 3.5 target INR of 3). Heidi GH, et al. Chest 2012; 141:7S-47S Miranda RA et al. JACC 2017; 70: 252-289 Performed By: #### A PTT #### [facility] [address] [place] [address] PT Coag (PPP) [Time] 17.0 s High 9.7-13.[address] [facility] Comment on above: Performed By: #### A PTT #### [facility] [address] [place] [address] INR Coag (PPP) [Relative time] {INR} Critically high 0.90-1.30 [facility] Comment on above: Result Comment: Celina min K Antagonist (VKA) Therapeutic Range: INR 2 to 3 (Target INR of 2.5) Note: For patients treated with VKA drugs, such as warfarin, the [place] [employer] 2012 Guideline recommends a therapeutic INR range of 2 to 3 (target INR of 2.5). This recommendation includes high-risk patients with antiphospholipid syndrome with previous arterial or venous thromboembolism, current-generation mechanical or bioprosthetic aortic heart valve replacement. VKA Therapeutic Range for some Mechanical Valve Replacement: INR 2.5 to 3.5 (Target INR of 3) Note: Patients with mechanical aortic valve replacement and additional risk factors for thromboembolic events (atrial fibrillation, previous thromboembolism, LV dysfunction, hypercoagulable conditions) or an older generation mechanical AVR (i.e., ball in-Cage) or any mechanical MVR should have a INR therapeutic range of 2.5 to 3.5 target INR of 3). Heidi GH, et al. Chest 2012; 141:7S-47S Miranda RA et al. JACC 2017; 70: 252-289 Performed By: #### A PTT #### [facility] [address] [place] [address] PT Coag (PPP) [Time] 73.4 s High 9.7-13.[address] [facility] Comment on above: Performed By: #### A PTT #### [place] [address] Type and Screenon 08-19-2018 ABO group Nom (Bld) O [facility] Comment on above: Performed By: #### A PTT #### [place] [address] Comment See Below [facility] Comment on above: Result Comment: Scre en &/or Xmatch expires in 3 days at 12 midnight. Redraw patient at that time. Performed By: #### A PTT #### [facility] [address] [place] [address] RH Type Positive Normal [facility] Comment on above: Performed By: #### A PTT #### [facility] [address] [place] [address] Activated PTTon 08-18-2018 aPTT Coag (Bld) [Time] 73.2 s High 23.0-32.4 [facility] Comment on above: Result Comment: Unfr actionated Heparin Therapeutic Ranges: Standard Heparin Nomogram: 53 to 78 seconds (anti-Xa level of 0.3 to 0.7 U/mL) Low Dose/ACS Nomogram: 49 to 67 seconds (anti-Xa level of 0.2 to 0.5 U/mL) Stroke Treatment Nomogram: 49 to 67 seconds (anti-Xa level of 0.2 to 0.5 U/mL) Note: The APTT therapeutic range has been determined for the current lot of laboratory APTT reagent in use throughout the [facility]. Performed By: #### A PTT #### [facility] [address] [place] [address] Basic Panelon 08-18-2018 Creatinine [Mass/Vol] 3.77 mg/dL High 0.51-0.95 [facility] Comment on above: Performed By: #### A PTT #### [facility] [address] [place] [address] Anion gap [Moles/Vol] 12 mmol/L Normal 8-16 [facility] Comment on above: Performed By: #### A PTT #### [facility] [address] [place] [address] CO2 [Moles/Vol] 27 mmol/L Normal 21-32 [facility] Comment on above: Performed By: #### A PTT #### [facility] [address] [place] [address] Urea nitrogen [Mass/Vol] 36 mg/dL High 7-18 [facility] Comment on above: Performed By: #### A PTT #### [facility] [address] [place], [place] [address] Calcium [Mass/Vol] 8.1 mg/dL Low 8.5-10.1 [facility] Comment on above: Performed By: #### A PTT #### [facility] [address] [place], [place] [address] Glucose [Mass/Vol] 98 mg/dL Normal 70-99 [facility] Comment on above: Performed By: #### A PTT #### [facility] [address] [place] [address] Chloride [Moles/Vol] 102 mmol/L Normal 98-[address] [facility] Comment on above: Performed By: #### A PTT #### [facility] [address] [place] [address] Potassium [Moles/Vol] 3.3 mmol/L Low 3.5-5.1 [facility] Comment on above: Performed By: #### A PTT #### [facility] [address] [place] [address] Sodium [Moles/Vol] 138 mmol/L Normal 136-145 [facility] Comment on above: Performed By: #### A PTT #### [place] [address] Hemogramon 08-18-2018 Erythrocyte distribution width (RBC) [Ratio] 15.4 % High 11.7-14.4 [facility] Comment on above: Performed By: #### A PTT #### [facility] [address] [place] [address] Hematocrit (Bld) [Volume fraction] 23.7 % Low 34.1-44.9 [facility] Comment on above: Performed By: #### A PTT #### [facility] [address] [place] [address] Hemoglobin (Bld) [Mass/Vol] 7.5 g/dL Low 11.2-15.7 [facility] Comment on above: Performed By: #### A PTT #### [place] [address] MCH (RBC) [Entitic mass] 28.4 pg Normal 25.6-32.2 [facility] Comment on above: Performed By: #### A PTT #### [facility] [address] [place] [address] MCHC (RBC) [Mass/Vol] 31.6 % Normal 31.6-34.8 [facility] Comment on above: Performed By: #### A PTT #### [facility] [address] [place] [address] MCV (RBC) [Entitic vol] 89.8 fL Normal 79.4-94.8 [facility] Comment on above: Performed By: #### A PTT #### [place] [address] Platelet mean volume (Bld) [Entitic vol] 10.0 fL Normal 9.4-12.3 [facility] Comment on above: Performed By: #### A PTT #### [place] [address] Platelets (Bld) [#/Vol] 237 thou/cmm Normal 182-369 [facility] Comment on above: Performed By: #### A PTT #### [place] [address] RBC (Bld) [#/Vol] 2.64 mil/cmm Low 3.93-5.22 [facility] Comment on above: Performed By: #### A PTT #### [place] [address] RDW SD 49.8 fl High 36.4-46.3 [facility] Comment on above: Performed By: #### A PTT #### [place] [address] WBC (Bld) [#/Vol] 14.44 thou/cmm High 3.98-10.04 [facility] Comment on above: Performed By: #### A PTT #### [place] [address] Protimeon 08-18-2018 INR Coag (PPP) [Relative time] 5.22 {INR} Critically high 0.90-1.30 [facility] Comment on above: Result Comment: Celina min K Antagonist (VKA) Therapeutic Range: INR 2 to 3 (Target INR of 2.5) Note: For patients treated with VKA drugs, such as warfarin, the [place] [employer] 2012 Guideline recommends a therapeutic INR range of 2 to 3 (target INR of 2.5). This recommendation includes high-risk patients with antiphospholipid syndrome with previous arterial or venous thromboembolism, current-generation mechanical or bioprosthetic aortic heart valve replacement. VKA Therapeutic Range for some Mechanical Valve Replacement: INR 2.5 to 3.5 (Target INR of 3) Note: Patients with mechanical aortic valve replacement and additional risk factors for thromboembolic events (atrial fibrillation, previous thromboembolism, LV dysfunction, hypercoagulable conditions) or an older generation mechanical AVR (i.e., ball in-Cage) or any mechanical MVR should have a INR therapeutic range of 2.5 to 3.5 target INR of 3). Heidi GH, et al. Chest 2012; 141:7S-47S Miranda RA et al. [facility] 2017; 70: 252-289 Performed By: #### A PTT #### [facility] [address] [place], [place] [address] PT Coag (PPP) [Time] 48.0 s High 9.7-13.[address] [facility] Comment on above: Performed By: #### A PTT #### [facility] [address] [place], [place] [address] Activated PTTon 08-17-2018 aPTT Coag (Bld) [Time] 64.3 s High 23.0-32.4 [facility] Comment on above: Result Comment: Unfr actionated Heparin Therapeutic Ranges: Standard Heparin Nomogram: 53 to 78 seconds (anti-Xa level of 0.3 to 0.7 U/mL) Low Dose/ACS Nomogram: 49 to 67 seconds (anti-Xa level of 0.2 to 0.5 U/mL) Stroke Treatment Nomogram: 49 to 67 seconds (anti-Xa level of 0.2 to 0.5 U/mL) Note: The APTT therapeutic range has been determined for the current lot of laboratory APTT reagent in use throughout the [facility]. Performed By: #### A PTT #### [facility] [address] [place] [address] aPTT Coag (Bld) [Time] 63.7 s High 23.0-32.4 [facility] Comment on above: Result Comment: Unfr actionated Heparin Therapeutic Ranges: Standard Heparin Nomogram: 53 to 78 seconds (anti-Xa level of 0.3 to 0.7 U/mL) Low Dose/ACS Nomogram: 49 to 67 seconds (anti-Xa level of 0.2 to 0.5 U/mL) Stroke Treatment Nomogram: 49 to 67 seconds (anti-Xa level of 0.2 to 0.5 U/mL) Note: The APTT therapeutic range has been determined for the current lot of laboratory APTT reagent in use throughout the [facility]. Performed By: #### A PTT #### [place] [address] aPTT Coag (Bld) [Time] 75.7 s High 23.0-32.4 [facility] Comment on above: Result Comment: Unfr actionated Heparin Therapeutic Ranges: Standard Heparin Nomogram: 53 to 78 seconds (anti-Xa level of 0.3 to 0.7 U/mL) Low Dose/ACS Nomogram: 49 to 67 seconds (anti-Xa level of 0.2 to 0.5 U/mL) Stroke Treatment Nomogram: 49 to 67 seconds (anti-Xa level of 0.2 to 0.5 U/mL) Note: The APTT therapeutic range has been determined for the current lot of laboratory APTT reagent in use throughout the [facility]. Performed By: #### A PTT #### [place] [address] Basic Panelon 08-17-2018 Creatinine [Mass/Vol] 5.02 mg/dL High 0.51-0.95 [facility] Comment on above: Performed By: #### A PTT #### [place] [address] Anion gap [Moles/Vol] 14 mmol/L Normal 8-16 [facility] Comment on above: Performed By: #### A PTT #### [place] [address] CO2 [Moles/Vol] 24 mmol/L Normal 21-32 [facility] Comment on above: Performed By: #### A PTT #### [facility] [address] [place], [place] [address] Glucose [Mass/Vol] 111 mg/dL High 70-99 [facility] Comment on above: Performed By: #### A PTT #### [facility] [address] [place], [place] [address] Urea nitrogen [Mass/Vol] 56 mg/dL High 7-18 [facility] Comment on above: Performed By: #### A PTT #### [facility] [address] [place], [place] [address] Calcium [Mass/Vol] 8.6 mg/dL Normal 8.5-10.1 [facility] Comment on above: Performed By: #### A PTT #### [facility] [address] [place], [place] [address] Chloride [Moles/Vol] 104 mmol/L Normal 98-[address] [facility] Comment on above: Performed By: #### A PTT #### [facility] [address] [place], [place] [address] Potassium [Moles/Vol] 3.6 mmol/L Normal 3.5-5.1 [facility] Comment on above: Performed By: #### A PTT #### [facility] [address] [place], [place] [address] Sodium [Moles/Vol] 138 mmol/L Normal 136-145 [facility] Comment on above: Performed By: #### A PTT #### [facility] [address] [place], [place] [address] CRPon 08-17-2018 CRP [Mass/Vol] 6.38 mg/dL High 0.00-0.30 [facility] Comment on above: Performed By: #### A PTT #### [facility] [address] [place], [place] [address] Ferritinon 08-17-2018 Ferritin [Mass/Vol] 578.60 ng/mL High 8.00-252.00 [facility] Comment on above: Performed By: #### A PTT #### [facility] [address] [place] [address] Hemogramon 08-17-2018 Erythrocyte distribution width (RBC) [Ratio] 15.6 % High 11.7-14.4 [facility] Comment on above: Performed By: #### A PTT #### [facility] [address] [place] [address] Hematocrit (Bld) [Volume fraction] 24.3 % Low 34.1-44.9 [facility] Comment on above: Performed By: #### A PTT #### [facility] [address] [place] [address] Hemoglobin (Bld) [Mass/Vol] 7.8 g/dL Low 11.2-15.7 [facility] Comment on above: Performed By: #### A PTT #### [facility] [address] [place] [address] MCH (RBC) [Entitic mass] 28.8 pg Normal 25.6-32.2 [facility] Comment on above: Performed By: #### A PTT #### [facility] [address] [place] [address] MCHC (RBC) [Mass/Vol] 32.1 % Normal 31.6-34.8 [facility] Comment on above: Performed By: #### A PTT #### [facility] [address] [place] [address] MCV (RBC) [Entitic vol] 89.7 fL Normal 79.4-94.8 [facility] Comment on above: Performed By: #### A PTT #### [facility] [address] [place] [address] Platelet mean volume (Bld) [Entitic vol] 10.1 fL Normal 9.4-12.3 [facility] Comment on above: Performed By: #### A PTT #### [facility] [address] [place] [address] Platelets (Bld) [#/Vol] 269 thou/cmm Normal 182-369 [facility] Comment on above: Performed By: #### A PTT #### [facility] [address] [place] [address] RBC (Bld) [#/Vol] 2.71 mil/cmm Low 3.93-5.22 [facility] Comment on above: Performed By: #### A PTT #### [facility] [address] [place] [address] RDW SD 50.7 fl High 36.4-46.3 [facility] Comment on above: Performed By: #### A PTT #### [facility] [address] [place] [address] WBC (Bld) [#/Vol] 16.86 thou/cmm High 3.98-10.04 [facility] Comment on above: Performed By: #### A PTT #### [facility] [address] [place] [address] Ionized Calciumon 08-17-2018 Ionized Ca,PH7.4 4.76 mg/dL Normal 4.61-5.17 [facility] Comment on above: Performed By: #### A PTT #### [facility] [address] [place] [address] pH (Bld) 7.401 [pH] Normal 7.320-7.430 [facility] Comment on above: Performed By: #### A PTT #### [facility] [address] [place] [address] Ionized Calcium 4.76 mg/dL Normal 4.61-5.17 [facility] Comment on above: Performed By: #### A PTT #### [facility] [address] [place] [address] Magnesium Bloodon 08-17-2018 Magnesium [Mass/Vol] 2.4 mg/dL Normal 1.6-2.[address] [facility] Comment on above: Performed By: #### A PTT #### [facility] [address] [place] [address] Phosphorus Bloodon 9 Phosphate [Mass/Vol] 5.3 mg/dL High 2.5-4.[address] [facility] Comment on above: Performed By: #### A PTT #### [place] [address] Protimeon 08-17-2018 INR Coag (PPP) [Relative time] 3.23 {INR} High 0.90-1.30 [facility] Comment on above: Result Comment: Celina min K Antagonist (VKA) Therapeutic Range: INR 2 to 3 (Target INR of 2.5) Note: For patients treated with VKA drugs, such as warfarin, the [place] [employer] 2012 Guideline recommends a therapeutic INR range of 2 to 3 (target INR of 2.5). This recommendation includes high-risk patients with antiphospholipid syndrome with previous arterial or venous thromboembolism, current-generation mechanical or bioprosthetic aortic heart valve replacement. VKA Therapeutic Range for some Mechanical Valve Replacement: INR 2.5 to 3.5 (Target INR of 3) Note: Patients with mechanical aortic valve replacement and additional risk factors for thromboembolic events (atrial fibrillation, previous thromboembolism, LV dysfunction, hypercoagulable conditions) or an older generation mechanical AVR (i.e., ball in-Cage) or any mechanical MVR should have a INR therapeutic range of 2.5 to 3.5 target INR of 3). Heidi GH, et al. Chest 2012; 141:7S-47S Miranda RA et al. [facility] 2017; 70: 252-289 Performed By: #### A PTT #### [place] [address] PT Coag (PPP) [Time] 30.8 s High 9.7-13.[address] [facility] Comment on above: Performed By: #### A PTT #### [facility] [address] [place] [address] Sed Rateon 08-17-2018 Sed Rate 79 mm/hr High 0-20 [facility] Comment on above: Performed By: #### A PTT #### [place] [address] Activated PTTon 08-16-2018 aPTT Coag (Bld) [Time] 70.3 s High 23.0-32.4 [facility] Comment on above: Result Comment: Unfr actionated Heparin Therapeutic Ranges: Standard Heparin Nomogram: 53 to 78 seconds (anti-Xa level of 0.3 to 0.7 U/mL) Low Dose/ACS Nomogram: 49 to 67 seconds (anti-Xa level of 0.2 to 0.5 U/mL) Stroke Treatment Nomogram: 49 to 67 seconds (anti-Xa level of 0.2 to 0.5 U/mL) Note: The APTT therapeutic range has been determined for the current lot of laboratory APTT reagent in use throughout the [facility]. Performed By: #### A PTT #### [facility] [address] [place] [address] Basic Panelon 08-16-2018 Creatinine [Mass/Vol] 4.72 mg/dL High 0.51-0.95 [facility] Comment on above: Performed By: #### A PTT #### [place] [address] Anion gap [Moles/Vol] 10 mmol/L Normal 8-16 [facility] Comment on above: Performed By: #### A PTT #### [address] [address] CO2 [Moles/Vol] 27 mmol/L Normal 21-32 [facility] Comment on above: Performed By: #### A PTT #### [address] [address] Urea nitrogen [Mass/Vol] 49 mg/dL High 7-18 [facility] Comment on above: Performed By: #### A PTT #### [address] [address] Calcium [Mass/Vol] 8.5 mg/dL Normal 8.5-10.1 [facility] Comment on above: Performed By: #### A PTT #### [facility] [address] [place], [place] [address] Glucose [Mass/Vol] 124 mg/dL High 70-99 [facility] Comment on above: Performed By: #### A PTT #### [facility] [address] [place], [place] [address] Chloride [Moles/Vol] 103 mmol/L Normal 98-[address] [facility] Comment on above: Performed By: #### A PTT #### [address] [address] Potassium [Moles/Vol] 3.6 mmol/L Normal 3.5-5.1 [facility] Comment on above: Performed By: #### A PTT #### [place] [address] Sodium [Moles/Vol] 136 mmol/L Normal 136-145 [facility] Comment on above: Performed By: #### A PTT #### [place] [address] CPKon 08-16-2018 CK [Catalytic activity/Vol] 34 U/L Normal 26-192 [facility] Comment on above: Performed By: #### A PTT #### [place] [address] Hemogram/Diffon 08-16-2018 Abs Immature Grans 0.32 thou/cmm High 0.00-0.05 [facility] Comment on above: Performed By: #### A PTT #### [place] [address] Abs Neut (ANC) 6.17 thou/cmm High 1.56-6.13 [facility] Comment on above: Performed By: #### A PTT #### [place] [address] Abs. Baso 0.04 thou/cmm Normal 0.01-0.08 [facility] Comment on above: Result Comment: Smea r scanned; tech agrees with automated differential Performed By: #### A PTT #### [place] [address] Abs. [place] 0.83 thou/cmm High 0.27-0.70 [facility] Comment on above: Performed By: #### A PTT #### [place] [address] Basophils/100 WBC (Bld) 0.3 % Normal A [facility] Comment on above: Performed By: #### A PTT #### [place] [address] Eosinophils (Bld) [#/Vol] 0.43 thou/cmm High 0.00-0.31 [facility] Comment on above: Performed By: #### A PTT #### [facility] [address] [place], [place] [address] Eosinophils/100 WBC (Bld) 3.0 % Normal [facility] Comment on above: Performed By: #### A PTT #### [facility] [address] [place], [place] [address] Immature Grans 2.20 % Normal [facility] Comment on above: Performed By: #### A PTT #### [facility] [address] [place], [place] [address] Lymphocytes (Bld) [#/Vol] 6.69 thou/cmm High 1.18-3.74 [facility] Comment on above: Performed By: #### A PTT #### [facility] [address] [place], [place] [address] Lymphocytes/100 WBC (Bld) 46.2 % Normal [facility] Comment on above: Performed By: #### A PTT #### [facility] [address] [place], [place] [address] Monocytes/100 WBC (Bld) 5.7 % Normal [facility] Comment on above: Performed By: #### A PTT #### [facility] [address] [place], [place] [address] Seg Neutrophil 42.6 % Normal [facility] Comment on above: Performed By: #### A PTT #### [facility] [address] [place], [place] [address] Erythrocyte distribution width (RBC) [Ratio] 15.7 % High 11.7-14.4 [facility] Comment on above: Performed By: #### A PTT #### [facility] [address] [place], [place] [address] Hematocrit (Bld) [Volume fraction] 22.4 % Low 34.1-44.9 [facility] Comment on above: Performed By: #### A PTT #### [facility] [address] [place], [place] [address] Hemoglobin (Bld) [Mass/Vol] 6.9 g/dL Critically low 11.2-15.7 [facility] Comment on above: Result Comment: Repe ated AND verified Performed By: #### A PTT #### [facility] [address] [place] [address] MCH (RBC) [Entitic mass] 27.7 pg Normal 25.6-32.2 [facility] Comment on above: Performed By: #### A PTT #### [facility] [address] [place] [address] MCHC (RBC) [Mass/Vol] 30.8 % Low 31.6-34.8 [facility] Comment on above: Performed By: #### A PTT #### [facility] [address] [place] [address] MCV (RBC) [Entitic vol] 90.0 fL Normal 79.4-94.8 [facility] Comment on above: Performed By: #### A PTT #### [facility] [address] [place] [address] Platelet mean volume (Bld) [Entitic vol] 10.0 fL Normal 9.4-12.3 [facility] Comment on above: Performed By: #### A PTT #### [facility] [address] [place] [address] Platelets (Bld) [#/Vol] 241 thou/cmm Normal 182-369 [facility] Comment on above: Performed By: #### A PTT #### [facility] [address] [place] [address] RBC (Bld) [#/Vol] 2.49 mil/cmm Low 3.93-5.22 [facility] Comment on above: Performed By: #### A PTT #### [facility] [address] [place] [address] RDW SD 51.1 fl High 36.4-46.3 [facility] Comment on above: Performed By: #### A PTT #### [facility] [address] [place] [address] WBC (Bld) [#/Vol] 14.49 thou/cmm High 3.98-10.04 [facility] Comment on above: Performed By: #### A PTT #### [facility] [address] [place] [id number] Protimeon 08-16-2018 INR Coag (PPP) [Relative time] 2.29 {INR} High 0.90-1.30 [facility] Comment on above: Result Comment: Celina min K Antagonist (VKA) Therapeutic Range: INR 2 to 3 (Target INR of 2.5) Note: For patients treated with VKA drugs, such as warfarin, the [place] [employer] 2012 Guideline recommends a therapeutic INR range of 2 to 3 (target INR of 2.5). This recommendation includes high-risk patients with antiphospholipid syndrome with previous arterial or venous thromboembolism, current-generation mechanical or bioprosthetic aortic heart valve replacement. VKA Therapeutic Range for some Mechanical Valve Replacement: INR 2.5 to 3.5 (Target INR of 3) Note: Patients with mechanical aortic valve replacement and additional risk factors for thromboembolic events (atrial fibrillation, previous thromboembolism, LV dysfunction, hypercoagulable conditions) or an older generation mechanical AVR (i.e., ball in-Cage) or any mechanical MVR should have a INR therapeutic range of 2.5 to 3.5 target INR of 3). Candidoyasantiago GH, et al. Chest 2012; 141:7S-47S Miranda RA, et al. JAC 2017; 70: 252-289 Performed By: #### A PTT #### [facility] [address] [place] [address] PT Coag (PPP) [Time] 22.4 s High 9.7-13.[address] [facility] Comment on above: Performed By: #### A PTT #### [facility] [address] [place], [place] [address] RBC Productson 08-16-2018 Xmatch Unit 1 see below Normal [facility] Comment on above: Result Comment: Comp atible Performed By: #### A PTT #### [facility] [address] [place] [address] Activated PTTon 08-15-2018 aPTT Coag (Bld) [Time] 66.9 s High 23.0-32.4 [facility] Comment on above: Result Comment: Unfr actionated Heparin Therapeutic Ranges: Standard Heparin Nomogram: 53 to 78 seconds (anti-Xa level of 0.3 to 0.7 U/mL) Low Dose/ACS Nomogram: 49 to 67 seconds (anti-Xa level of 0.2 to 0.5 U/mL) Stroke Treatment Nomogram: 49 to 67 seconds (anti-Xa level of 0.2 to 0.5 U/mL) Note: The APTT therapeutic range has been determined for the current lot of laboratory APTT reagent in use throughout the [facility]. Performed By: #### A PTT #### [facility] [address] [place] [address] Basic Panelon 08-15-2018 Creatinine [Mass/Vol] 4.46 mg/dL High 0.51-0.95 [facility] Comment on above: Performed By: #### A PTT #### [place] [address] Urea nitrogen [Mass/Vol] 37 mg/dL High 7-18 [facility] Comment on above: Performed By: #### A PTT #### [place] [address] Anion gap [Moles/Vol] 11 mmol/L Normal 8-16 [facility] Comment on above: Performed By: #### A PTT #### [address] [address] Calcium [Mass/Vol] 8.4 mg/dL Low 8.5-10.1 [facility] Comment on above: Performed By: #### A PTT #### [place] [address] CO2 [Moles/Vol] 27 mmol/L Normal 21-32 [facility] Comment on above: Performed By: #### A PTT #### [facility] [address] [place], [place] [address] Glucose [Mass/Vol] 113 mg/dL High 70-99 [facility] Comment on above: Performed By: #### A PTT #### [address] [address] Chloride [Moles/Vol] 101 mmol/L Normal 98-[address] [facility] Comment on above: Performed By: #### A PTT #### [facility] [address] [place] [address] Potassium [Moles/Vol] 3.6 mmol/L Normal 3.5-5.1 [facility] Comment on above: Performed By: #### A PTT #### [facility] [address] [place] [address] Sodium [Moles/Vol] 135 mmol/L Low 136-145 [facility] Comment on above: Performed By: #### A PTT #### [facility] [address] [place] [address] Cult Bloodon 08-15-2018 Cult Blood Test performed at [facility] No growth Normal [facility] Comment on above: Performed By: #### A PTT #### [facility] [address] [place] [address] Hemogramon 08-15-2018 Erythrocyte distribution width (RBC) [Ratio] 15.9 % High 11.7-14.4 [facility] Comment on above: Performed By: #### A PTT #### [facility] [address] [place] [address] Hematocrit (Bld) [Volume fraction] 23.0 % Low 34.1-44.9 [facility] Comment on above: Performed By: #### A PTT #### [facility] [address] [place] [address] Hemoglobin (Bld) [Mass/Vol] 7.3 g/dL Low 11.2-15.7 [facility] Comment on above: Performed By: #### A PTT #### [facility] [address] [place] [address] MCH (RBC) [Entitic mass] 28.3 pg Normal 25.6-32.2 [facility] Comment on above: Performed By: #### A PTT #### [facility] [address] [place] [address] MCHC (RBC) [Mass/Vol] 31.7 % Normal 31.6-34.8 [facility] Comment on above: Performed By: #### A PTT #### [facility] [address] [place] [address] MCV (RBC) [Entitic vol] 89.1 fL Normal 79.4-94.8 [facility] Comment on above: Performed By: #### A PTT #### [facility] [address] [place] [address] Platelet mean volume (Bld) [Entitic vol] 10.1 fL Normal 9.4-12.3 [facility] Comment on above: Performed By: #### A PTT #### [facility] [address] [place] [address] Platelets (Bld) [#/Vol] 271 thou/cmm Normal 182-369 [facility] Comment on above: Performed By: #### A PTT #### [facility] [address] [place] [address] RBC (Bld) [#/Vol] 2.58 mil/cmm Low 3.93-5.22 [facility] Comment on above: Performed By: #### A PTT #### [facility] [address] [place] [address] RDW SD 52.2 fl High 36.4-46.3 [facility] Comment on above: Performed By: #### A PTT #### [facility] [address] [place] [address] WBC (Bld) [#/Vol] 17.38 thou/cmm High 3.98-10.04 [facility] Comment on above: Performed By: #### A PTT #### [facility] [address] [place] [address] Protimeon 08-15-2018 INR Coag (PPP) [Relative time] 2.38 {INR} High 0.90-1.30 [facility] Comment on above: Result Comment: Celina min K Antagonist (VKA) Therapeutic Range: INR 2 to 3 (Target INR of 2.5) Note: For patients treated with VKA drugs, such as warfarin, the [place] [employer] 2012 Guideline recommends a therapeutic INR range of 2 to 3 (target INR of 2.5). This recommendation includes high-risk patients with antiphospholipid syndrome with previous arterial or venous thromboembolism, current-generation mechanical or bioprosthetic aortic heart valve replacement. VKA Therapeutic Range for some Mechanical Valve Replacement: INR 2.5 to 3.5 (Target INR of 3) Note: Patients with mechanical aortic valve replacement and additional risk factors for thromboembolic events (atrial fibrillation, previous thromboembolism, LV dysfunction, hypercoagulable conditions) or an older generation mechanical AVR (i.e., ball in-Cage) or any mechanical MVR should have a INR therapeutic range of 2.5 to 3.5 target INR of 3). Heidi GH, et al. Chest 2012; 141:7S-47S Miranda [place] et al. [facility] 2017; 70: 252-289 Performed By: #### A PTT #### [facility] [address] [place] [address] PT Coag (PPP) [Time] 23.2 s High 9.7-13.[address] [facility] Comment on above: Performed By: #### A PTT #### [facility] [address] [place] [address] Vancomycin,Troughon 08-16-19 19 Vancomycin,Trough 21.6 mg/L Critically high 10.0-20.0 [facility] Comment on above: Performed By: #### A PTT #### [facility] [address] [place] [address] Activated PTTon 08-14-2018 aPTT Coag (Bld) [Time] 71.4 s High 23.0-32.4 [facility] Comment on above: Result Comment: Unfr actionated Heparin Therapeutic Ranges: Standard Heparin Nomogram: 53 to 78 seconds (anti-Xa level of 0.3 to 0.7 U/mL) Low Dose/ACS Nomogram: 49 to 67 seconds (anti-Xa level of 0.2 to 0.5 U/mL) Stroke Treatment Nomogram: 49 to 67 seconds (anti-Xa level of 0.2 to 0.5 U/mL) Note: The APTT therapeutic range has been determined for the current lot of laboratory APTT reagent in use throughout the [facility]. Performed By: #### A PTT #### [facility] [address] [place] [id number] aPTT Coag (Bld) [Time] 67.2 s High 23.0-32.4 [facility] Comment on above: Result Comment: Unfr actionated Heparin Therapeutic Ranges: Standard Heparin Nomogram: 53 to 78 seconds (anti-Xa level of 0.3 to 0.7 U/mL) Low Dose/ACS Nomogram: 49 to 67 seconds (anti-Xa level of 0.2 to 0.5 U/mL) Stroke Treatment Nomogram: 49 to 67 seconds (anti-Xa level of 0.2 to 0.5 U/mL) Note: The APTT therapeutic range has been determined for the current lot of laboratory APTT reagent in use throughout the [facility]. Performed By: #### A PTT #### [place] [address] Basic Panelon 08-14-2018 Creatinine [Mass/Vol] 3.78 mg/dL High 0.51-0.95 [facility] Comment on above: Performed By: #### A PTT #### [place] [address] Anion gap [Moles/Vol] 13 mmol/L Normal 8-16 [facility] Comment on above: Performed By: #### A PTT #### [place] [address] CO2 [Moles/Vol] 27 mmol/L Normal 21-32 [facility] Comment on above: Performed By: #### A PTT #### [place] [address] Glucose [Mass/Vol] 109 mg/dL High 70-99 [facility] Comment on above: Performed By: #### A PTT #### [place] [address] Urea nitrogen [Mass/Vol] 29 mg/dL High 7-18 [facility] Comment on above: Performed By: #### A PTT #### [place] [address] Calcium [Mass/Vol] 7.9 mg/dL Low 8.5-10.1 [facility] Comment on above: Performed By: #### A PTT #### [place] [address] Chloride [Moles/Vol] 100 mmol/L Normal 98-[address] [facility] Comment on above: Performed By: #### A PTT #### [facility] [address] [place] [address] Potassium [Moles/Vol] 3.6 mmol/L Normal 3.5-5.1 [facility] Comment on above: Performed By: #### A PTT #### [facility] [address] [place] [address] Sodium [Moles/Vol] 136 mmol/L Normal 136-145 [facility] Comment on above: Performed By: #### A PTT #### [facility] [address] [place] [address] Hemogramon 08-14-2018 Erythrocyte distribution width (RBC) [Ratio] 16.0 % High 11.7-14.4 [facility] Comment on above: Performed By: #### A PTT #### [facility] [address] [place] [address] Hematocrit (Bld) [Volume fraction] 23.3 % Low 34.1-44.9 [facility] Comment on above: Performed By: #### A PTT #### [facility] [address] [place] [address] Hemoglobin (Bld) [Mass/Vol] 7.3 g/dL Low 11.2-15.7 [facility] Comment on above: Performed By: #### A PTT #### [facility] [address] [place] [address] MCH (RBC) [Entitic mass] 28.2 pg Normal 25.6-32.2 [facility] Comment on above: Performed By: #### A PTT #### [facility] [address] [place] [address] MCHC (RBC) [Mass/Vol] 31.3 % Low 31.6-34.8 [facility] Comment on above: Performed By: #### A PTT #### [place] [address] MCV (RBC) [Entitic vol] 90.0 fL Normal 79.4-94.8 [facility] Comment on above: Performed By: #### A PTT #### [facility] [address] [place] [address] Platelet mean volume (Bld) [Entitic vol] 9.8 fL Normal 9.4-12.3 [facility] Comment on above: Performed By: #### A PTT #### [facility] [address] [place], [place] [address] Platelets (Bld) [#/Vol] 227 thou/cmm Normal 182-369 [facility] Comment on above: Performed By: #### A PTT #### [facility] [address] [place] [address] RBC (Bld) [#/Vol] 2.59 mil/cmm Low 3.93-5.22 [facility] Comment on above: Performed By: #### A PTT #### [facility] [address] [place] [address] RDW SD 52.5 fl High 36.4-46.3 [facility] Comment on above: Performed By: #### A PTT #### [facility] [address] [place] [address] WBC (Bld) [#/Vol] 15.68 thou/cmm High 3.98-10.04 [facility] Comment on above: Performed By: #### A PTT #### [facility] [address] [place] [address] Hgbon 08-14-2018 Hemoglobin (Bld) [Mass/Vol] 7.4 g/dL Low 11.2-15.7 [facility] Comment on above: Performed By: #### A PTT #### [facility] [address] [place] [address] Protimeon 08-14-2018 INR Coag (PPP) [Relative time] 2.35 {INR} High 0.90-1.30 [facility] Comment on above: Result Comment: Celina min K Antagonist (VKA) Therapeutic Range: INR 2 to 3 (Target INR of 2.5) Note: For patients treated with VKA drugs, such as warfarin, the [place] [employer] 2012 Guideline recommends a therapeutic INR range of 2 to 3 (target INR of 2.5). This recommendation includes high-risk patients with antiphospholipid syndrome with previous arterial or venous thromboembolism, current-generation mechanical or bioprosthetic aortic heart valve replacement. VKA Therapeutic Range for some Mechanical Valve Replacement: INR 2.5 to 3.5 (Target INR of 3) Note: Patients with mechanical aortic valve replacement and additional risk factors for thromboembolic events (atrial fibrillation, previous thromboembolism, LV dysfunction, hypercoagulable conditions) or an older generation mechanical AVR (i.e., ball in-Cage) or any mechanical MVR should have a INR therapeutic range of 2.5 to 3.5 target INR of 3). Heidi BOSCH, et al. Chest 2012; 141:7S-47S Miranda [place] et al. [facility] 2017; 70: 252-289 Performed By: #### A PTT #### [facility] [address] [place], [place] [address] PT Coag (PPP) [Time] 22.9 s High 9.7-13.[address] [facility] Comment on above: Performed By: #### A PTT #### [facility] [address] [place], [place] [address] INR Coag (PPP) [Relative time] 1.74 {INR} High 0.90-1.30 [facility] Comment on above: Result Comment: Celina min K Antagonist (VKA) Therapeutic Range: INR 2 to 3 (Target INR of 2.5) Note: For patients treated with VKA drugs, such as warfarin, the [place] [employer] 2012 Guideline recommends a therapeutic INR range of 2 to 3 (target INR of 2.5). This recommendation includes high-risk patients with antiphospholipid syndrome with previous arterial or venous thromboembolism, current-generation mechanical or bioprosthetic aortic heart valve replacement. VKA Therapeutic Range for some Mechanical Valve Replacement: INR 2.5 to 3.5 (Target INR of 3) Note: Patients with mechanical aortic valve replacement and additional risk factors for thromboembolic events (atrial fibrillation, previous thromboembolism, LV dysfunction, hypercoagulable conditions) or an older generation mechanical AVR (i.e., ball in-Cage) or any mechanical MVR should have a INR therapeutic range of 2.5 to 3.5 target INR of 3). Guyatt GH, et al. Chest 2012; 141:7S-47S Miranda [place] et al. JACC 2017; 70: 252-289 Performed By: #### A PTT #### [facility] [address] [place], [place] [address] PT Coag (PPP) [Time] 17.4 s High 9.7-13.[address] [facility] Comment on above: Performed By: #### A PTT #### [facility] [address] [place], [place] [address] INR Coag (PPP) [Relative time] 2.00 {INR} High 0.90-1.30 [facility] Comment on above: Result Comment: Celina min K Antagonist (VKA) Therapeutic Range: INR 2 to 3 (Target INR of 2.5) Note: For patients treated with VKA drugs, such as warfarin, the [place] [employer] 2012 Guideline recommends a therapeutic INR range of 2 to 3 (target INR of 2.5). This recommendation includes high-risk patients with antiphospholipid syndrome with previous arterial or venous thromboembolism, current-generation mechanical or bioprosthetic aortic heart valve replacement. VKA Therapeutic Range for some Mechanical Valve Replacement: INR 2.5 to 3.5 (Target INR of 3) Note: Patients with mechanical aortic valve replacement and additional risk factors for thromboembolic events (atrial fibrillation, previous thromboembolism, LV dysfunction, hypercoagulable conditions) or an older generation mechanical AVR (i.e., ball in-Cage) or any mechanical MVR should have a INR therapeutic range of 2.5 to 3.5 target INR of 3). Heidi BOSCH, et al. Chest 2012; 141:7S-47S Miranda [place] et al. JACC 2017; 70: 252-289 Performed By: #### A PTT #### [facility] [address] [place], [place] [address] PT Coag (PPP) [Time] 19.8 s High 9.7-13.[address] [facility] Comment on above: Performed By: #### A PTT #### [facility] [address] [place], [place] [address] Venous Blood Gason 9 Base Excess 1.2 mmol/L Normal -3.0-3.0 [facility] Comment on above: Performed By: #### A PTT #### [facility] [address] [place], [place] [address] HCO3 (Bld) [Moles/Vol] 27.0 mmol/L Normal 21.0-30.0 [facility] Comment on above: Performed By: #### A PTT #### [facility] [address] [place], [place] [address] O2% Sat Venous 78.0 % High 18.0-74.8 [facility] Comment on above: Performed By: #### A PTT #### [facility] [address] [place], [place] [address] PCO2 Venous 53.7 mm Hg Normal 40.6-60.0 [facility] Comment on above: Performed By: #### A PTT #### [facility] [address] [place] [address] pH Venous 7.322 Normal 7.320-7.430 [facility] Comment on above: Performed By: #### A PTT #### [facility] [address] [place], [place] [address] PO2 Venous 45.3 mm Hg High 15.9-37.5 [facility] Comment on above: Performed By: #### A PTT #### [facility] [address] [place] [address] Activated PTTon 08-13-2018 aPTT Coag (Bld) [Time] 71.6 s High 23.0-32.4 [facility] Comment on above: Result Comment: Unfr actionated Heparin Therapeutic Ranges: Standard Heparin Nomogram: 53 to 78 seconds (anti-Xa level of 0.3 to 0.7 U/mL) Low Dose/ACS Nomogram: 49 to 67 seconds (anti-Xa level of 0.2 to 0.5 U/mL) Stroke Treatment Nomogram: 49 to 67 seconds (anti-Xa level of 0.2 to 0.5 U/mL) Note: The APTT therapeutic range has been determined for the current lot of laboratory APTT reagent in use throughout the [facility]. Performed By: #### A PTT #### [facility] [address] [place] [address] aPTT Coag (Bld) [Time] 66.3 s High 23.0-32.4 [facility] Comment on above: Result Comment: Unfr actionated Heparin Therapeutic Ranges: Standard Heparin Nomogram: 53 to 78 seconds (anti-Xa level of 0.3 to 0.7 U/mL) Low Dose/ACS Nomogram: 49 to 67 seconds (anti-Xa level of 0.2 to 0.5 U/mL) Stroke Treatment Nomogram: 49 to 67 seconds (anti-Xa level of 0.2 to 0.5 U/mL) Note: The APTT therapeutic range has been determined for the current lot of laboratory APTT reagent in use throughout the [facility]. Performed By: #### A PTT #### [place] [address] Aspergillus Agon 08-13-2018 Aspergillus Ag SEE BELOW Normal [facility] Comment on above: Result Comment: Aspe r. Ag Ser,Qual Negative NEGAT Aspergillus galactomannan antigen not detected in this sample. A negative result may indicate that the patient's result is below the detectable level of the assay. Negative results do not rule out the diagnosis of Invasive Aspergillosis. Repeat testing is recommended if the result is negative,but the disease is suspected. Aspergillus Ag,Ser <0.50 Index Index Values are Interpreted as Follows: Negative specimens <0.50 Positive specimens >=0.50 Performing Laboratory: [id number] [place] [address] Performed By: #### A PTT #### [place] [address] Blood Gas Arterialon 019 Base Excess 0.4 mmol/L Normal -3.0-3.0 [facility] Comment on above: Performed By: #### A PTT #### [place] [id number] HCO3 (Bld) [Moles/Vol] 25.3 mmol/L Normal 21.0-28.0 [facility] Comment on above: Performed By: #### A PTT #### [place] [address] O2% Sat Arterial 99.1 % Normal 96.0-100.0 [facility] Comment on above: Performed By: #### A PTT #### [facility] [address] [place] [address] PCO2 Arterial 45.3 mm Hg High 35.0-45.0 [facility] Comment on above: Performed By: #### A PTT #### [facility] [address] [place] [address] pH Arterial 7.365 Normal 7.350-7.450 [facility] Comment on above: Performed By: #### A PTT #### [facility] [address] [place] [address] PO2 Arterial 145.0 mm Hg High 83.0-108.0 [facility] Comment on above: Performed By: #### A PTT #### [facility] [address] [place] [address] FIO2 70 % Normal [facility] Comment on above: Performed By: #### A PTT #### [facility] [address] [place] [address] Creatinine Bloodon 9 Creatinine [Mass/Vol] 4.88 mg/dL High 0.51-0.95 [facility] Comment on above: Performed By: #### A PTT #### [facility] [address] [place] [address] Cult Bloodon 08-13-2018 Cult Blood Test performed at [facility] No growth Normal [facility] Comment on above: Performed By: #### A PTT #### [facility] [address] [place] [address] Cult and Smr Body Fluidon Cult and Smr Body Fluid Test performed a t [facility] No growth at 1 day No growth at 2 days No cells or organisms seen Normal [facility] Comment on above: Performed By: #### A PTT #### [facility] [address] [place] [address] Cult and Smr Respiratoryon 0 08-13-2018 Cult and Smr Respiratory Test performed at [facility] Absence of normal oropharyngeal reynaldo No organisms seen Moderate Polymorphonuclear leukocytes ORGANISM: *Yeast not Love albicans or Cryptococcus neoformans (ID: 1) Rare Normal [facility] Comment on above: Performed By: #### A PTT #### [facility] [address] [place] [address] Hemogramon 08-13-2018 Erythrocyte distribution width (RBC) [Ratio] 15.9 % High 11.7-14.4 [facility] Comment on above: Performed By: #### A PTT #### [facility] [address] [place] [address] Hematocrit (Bld) [Volume fraction] 21.7 % Low 34.1-44.9 [facility] Comment on above: Performed By: #### A PTT #### [facility] [address] [place] [address] Hemoglobin (Bld) [Mass/Vol] 6.5 g/dL Critically low 11.2-15.7 [facility] Comment on above: Performed By: #### A PTT #### [place] [address] MCH (RBC) [Entitic mass] 28.0 pg Normal 25.6-32.2 [facility] Comment on above: Performed By: #### A PTT #### [facility] [address] [place] [address] MCHC (RBC) [Mass/Vol] 30.0 % Low 31.6-34.8 [facility] Comment on above: Performed By: #### A PTT #### [place] [address] MCV (RBC) [Entitic vol] 93.5 fL Normal 79.4-94.8 [facility] Comment on above: Performed By: #### A PTT #### [facility] [address] [place] [address] Platelet mean volume (Bld) [Entitic vol] 9.7 fL Normal 9.4-12.3 [facility] Comment on above: Performed By: #### A PTT #### [place] [address] Platelets (Bld) [#/Vol] 255 thou/cmm Normal 182-369 [facility] Comment on above: Performed By: #### A PTT #### [facility] [address] [place] [address] RBC (Bld) [#/Vol] 2.32 mil/cmm Low 3.93-5.22 [facility] Comment on above: Performed By: #### A PTT #### [facility] [address] [place] [address] RDW SD 54.3 fl High 36.4-46.3 [facility] Comment on above: Performed By: #### A PTT #### [facility] [address] [place] [address] WBC (Bld) [#/Vol] 18.41 thou/cmm High 3.98-10.04 [facility] Comment on above: Performed By: #### A PTT #### [facility] [address] [place] [address] MRSA Screenon 08-13-2018 MRSA DNA LYN+probe Ql (Unsp spec) Test performed at [facility] No MRSA detected. Normal [facility] Comment on above: Performed By: #### A PTT #### [facility] [address] [place] [address] Protimeon 08-13-2018 INR Coag (PPP) [Relative time] 2.59 {INR} High 0.90-1.30 [facility] Comment on above: Result Comment: Celina min K Antagonist (VKA) Therapeutic Range: INR 2 to 3 (Target INR of 2.5) Note: For patients treated with VKA drugs, such as warfarin, the [place] [employer] 2012 Guideline recommends a therapeutic INR range of 2 to 3 (target INR of 2.5). This recommendation includes high-risk patients with antiphospholipid syndrome with previous arterial or venous thromboembolism, current-generation mechanical or bioprosthetic aortic heart valve replacement. VKA Therapeutic Range for some Mechanical Valve Replacement: INR 2.5 to 3.5 (Target INR of 3) Note: Patients with mechanical aortic valve replacement and additional risk factors for thromboembolic events (atrial fibrillation, previous thromboembolism, LV dysfunction, hypercoagulable conditions) or an older generation mechanical AVR (i.e., ball in-Cage) or any mechanical MVR should have a INR therapeutic range of 2.5 to 3.5 target INR of 3). Heidi BOSCH, et al. Chest 2012; 141:7S-47S Miranda [place] et hillary. JAC 2017; 70: 252-289 Performed By: #### A PTT #### [facility] [address] [place], [place] [address] PT Coag (PPP) [Time] 25.1 s High 9.7-13.[address] [facility] Comment on above: Performed By: #### A PTT #### [facility] [address] [place], [place] [address] INR Coag (PPP) [Relative time] 2.31 {INR} High 0.90-1.30 [facility] Comment on above: Result Comment: Celina min K Antagonist (VKA) Therapeutic Range: INR 2 to 3 (Target INR of 2.5) Note: For patients treated with VKA drugs, such as warfarin, the [place] [employer] 2012 Guideline recommends a therapeutic INR range of 2 to 3 (target INR of 2.5). This recommendation includes high-risk patients with antiphospholipid syndrome with previous arterial or venous thromboembolism, current-generation mechanical or bioprosthetic aortic heart valve replacement. VKA Therapeutic Range for some Mechanical Valve Replacement: INR 2.5 to 3.5 (Target INR of 3) Note: Patients with mechanical aortic valve replacement and additional risk factors for thromboembolic events (atrial fibrillation, previous thromboembolism, LV dysfunction, hypercoagulable conditions) or an older generation mechanical AVR (i.e., ball in-Cage) or any mechanical MVR should have a INR therapeutic range of 2.5 to 3.5 target INR of 3). Heidi BOSCH, et al. Chest 2012; 141:7S-47S Miranda [place] et al. JAC 2017; 70: 252-289 Performed By: #### A PTT #### [facility] [address] [place], [place] [address] PT Coag (PPP) [Time] 22.6 s High 9.7-13.[address] [facility] Comment on above: Performed By: #### A PTT #### [facility] [address] [place], [place] [address] RBC Productson 08-13-2018 Xmatch Unit 1 see below Normal [facility] Comment on above: Result Comment: Comp atible Performed By: #### A PTT #### [facility] [address] [place] [address] Type and Screenon 08-13-2018 ABO group Nom (Bld) O Normal [facility] Comment on above: Performed By: #### A PTT #### [place] [address] Comment See Below Normal [facility] Comment on above: Result Comment: Scre en &/or Xmatch expires in 3 days at 12 midnight. Redraw patient at that time. Performed By: #### A PTT #### [place] [address] RH Type Positive Normal [facility] Comment on above: Performed By: #### A PTT #### [place] [address] Vancomycin,Randomon 08-14-19 19 INR Coag (Bld) [Relative time] 15.9 mg/L [facility] Comment on above: Result Comment: Trou gh 10.0-20.0 mg/L Peak 18.0-40.0 mg/L Performed By: #### A PTT #### [place] [address] Activated PTTon 08-12-2018 aPTT Coag (Bld) [Time] 69.6 s High 23.0-32.4 [facility] Comment on above: Result Comment: Unfr actionated Heparin Therapeutic Ranges: Standard Heparin Nomogram: 53 to 78 seconds (anti-Xa level of 0.3 to 0.7 U/mL) Low Dose/ACS Nomogram: 49 to 67 seconds (anti-Xa level of 0.2 to 0.5 U/mL) Stroke Treatment Nomogram: 49 to 67 seconds (anti-Xa level of 0.2 to 0.5 U/mL) Note: The APTT therapeutic range has been determined for the current lot of laboratory APTT reagent in use throughout the [facility]. Performed By: #### A PTT #### [place] [address] aPTT Coag (Bld) [Time] 70.9 s High 23.0-32.4 [facility] Comment on above: Result Comment: Unfr actionated Heparin Therapeutic Ranges: Standard Heparin Nomogram: 53 to 78 seconds (anti-Xa level of 0.3 to 0.7 U/mL) Low Dose/ACS Nomogram: 49 to 67 seconds (anti-Xa level of 0.2 to 0.5 U/mL) Stroke Treatment Nomogram: 49 to 67 seconds (anti-Xa level of 0.2 to 0.5 U/mL) Note: The APTT therapeutic range has been determined for the current lot of laboratory APTT reagent in use throughout the [facility]. Performed By: #### A PTT #### [place] [address] aPTT Coag (Bld) [Time] 57.9 s High 23.0-32.4 [facility] Comment on above: Result Comment: Unfr actionated Heparin Therapeutic Ranges: Standard Heparin Nomogram: 53 to 78 seconds (anti-Xa level of 0.3 to 0.7 U/mL) Low Dose/ACS Nomogram: 49 to 67 seconds (anti-Xa level of 0.2 to 0.5 U/mL) Stroke Treatment Nomogram: 49 to 67 seconds (anti-Xa level of 0.2 to 0.5 U/mL) Note: The APTT therapeutic range has been determined for the current lot of laboratory APTT reagent in use throughout the [facility]. Performed By: #### A PTT #### [place] [id number] 08-12-2018 Glucose [Mass/Vol] SEE BELOW Normal [facility] Comment on above: Result Comment: Donald itell Assay Positive AB Reference range: Negative (NOTE) INTERPRETIVE INFORMATION: (1,3)-hwhp-B-fxfsqc (Fungitell) Less than 31 pg/mL ................... Negative 31-59 pg/mL .......................... Negative 60-79 pg/mL .......................... Indeterminate Greater than or equal to 80 pg/mL .... Positive The Fungitell test is indicated for presumptive diagnosis of fungal infection and should be used in conjunction with other diagnostic procedures. This test does not detect certain fungal species such as Cryptococcus, which produce very low levels of (1,3)-zyui-B-vbhvrx. This test will not detect the zygomycetes, such as Absidia, Mucor, and Rhizopus, which are not known to produce (1,3)-pmuj-V-kjluki. In addition, the yeast phase of Blastomyces dermatitidis produces little (1,3)-spcv-N-zqrzdh and may not be detected by the assay. Performed by [employer] [address] [place] [id number] [email or web address], Roger Paiz MD, Lab. Director Fungitell Comments >500 Unit: pg/mL Performing Laboratory: Performed By: #### A PTT #### [address] [address] Basic Panelon 08-12-2018 Creatinine [Mass/Vol] 3.34 mg/dL High 0.51-0.95 [facility] Comment on above: Performed By: #### A PTT #### [address] [address] Anion gap [Moles/Vol] 10 mmol/L Normal 8-16 [facility] Comment on above: Performed By: #### A PTT #### [address] [address] CO2 [Moles/Vol] 28 mmol/L Normal 21-32 [facility] Comment on above: Performed By: #### A PTT #### [address] [address] Glucose [Mass/Vol] 95 mg/dL Normal 70-99 [facility] Comment on above: Performed By: #### A PTT #### [address] [address] Urea nitrogen [Mass/Vol] 27 mg/dL High 7-18 [facility] Comment on above: Performed By: #### A PTT #### [facility] [address] [place] [address] Calcium [Mass/Vol] 8.7 mg/dL Normal 8.5-10.1 [facility] Comment on above: Performed By: #### A PTT #### [facility] [address] [place] [address] Chloride [Moles/Vol] 101 mmol/L Normal 98-[address] [facility] Comment on above: Performed By: #### A PTT #### [facility] [address] [place] [address] Potassium [Moles/Vol] 3.8 mmol/L Normal 3.5-5.1 [facility] Comment on above: Performed By: #### A PTT #### [facility] [address] [place] [address] Sodium [Moles/Vol] 135 mmol/L Low 136-145 [facility] Comment on above: Performed By: #### A PTT #### [facility] [address] [place] [address] Hemogramon 08-12-2018 Erythrocyte distribution width (RBC) [Ratio] 15.4 % High 11.7-14.4 [facility] Comment on above: Performed By: #### A PTT #### [facility] [address] [place] [address] Hematocrit (Bld) [Volume fraction] 23.5 % Low 34.1-44.9 [facility] Comment on above: Performed By: #### A PTT #### [facility] [address] [place] [address] Hemoglobin (Bld) [Mass/Vol] 7.3 g/dL Low 11.2-15.7 [facility] Comment on above: Performed By: #### A PTT #### [facility] [address] [place] [address] MCH (RBC) [Entitic mass] 28.1 pg Normal 25.6-32.2 [facility] Comment on above: Performed By: #### A PTT #### [facility] [address] [place] [address] MCHC (RBC) [Mass/Vol] 31.1 % Low 31.6-34.8 [facility] Comment on above: Performed By: #### A PTT #### [facility] [address] [place] [address] MCV (RBC) [Entitic vol] 90.4 fL Normal 79.4-94.8 [facility] Comment on above: Performed By: #### A PTT #### [facility] [address] [place] [address] Platelet mean volume (Bld) [Entitic vol] 9.9 fL Normal 9.4-12.3 [facility] Comment on above: Performed By: #### A PTT #### [place] [address] Platelets (Bld) [#/Vol] 247 thou/cmm Normal 182-369 [facility] Comment on above: Performed By: #### A PTT #### [facility] [address] [place] [address] RBC (Bld) [#/Vol] 2.60 mil/cmm Low 3.93-5.22 [facility] Comment on above: Performed By: #### A PTT #### [place] [address] RDW SD 51.2 fl High 36.4-46.3 [facility] Comment on above: Performed By: #### A PTT #### [place] [address] WBC (Bld) [#/Vol] 13.70 thou/cmm High 3.98-10.04 [facility] Comment on above: Performed By: #### A PTT #### [facility] [address] [place] [address] MDRD GFRon 08-12-2018 GFR/1.73 sq M predicted among non-blacks MDRD (S/P/Bld) [Vol rate/Area] 15.72 mL/min/{1.73_m2} Normal >60mL/min/1.7 3m2 [facility] Comment on above: Result Comment: If t he patient is , multiply the result by 1.210. Performed By: #### G FR #### [facility] [address] [place], [place] [address] Phosphorus Bloodon 9 Phosphate [Mass/Vol] 4.9 mg/dL Normal 2.5-4.[address] [facility] Comment on above: Performed By: #### A PTT #### [facility] [address] [place] [address] Protimeon 08-12-2018 INR Coag (PPP) [Relative time] 1.93 {INR} High 0.90-1.30 [facility] Comment on above: Result Comment: Celina min K Antagonist (VKA) Therapeutic Range: INR 2 to 3 (Target INR of 2.5) Note: For patients treated with VKA drugs, such as warfarin, the [place] [employer] 2012 Guideline recommends a therapeutic INR range of 2 to 3 (target INR of 2.5). This recommendation includes high-risk patients with antiphospholipid syndrome with previous arterial or venous thromboembolism, current-generation mechanical or bioprosthetic aortic heart valve replacement. VKA Therapeutic Range for some Mechanical Valve Replacement: INR 2.5 to 3.5 (Target INR of 3) Note: Patients with mechanical aortic valve replacement and additional risk factors for thromboembolic events (atrial fibrillation, previous thromboembolism, LV dysfunction, hypercoagulable conditions) or an older generation mechanical AVR (i.e., ball in-Cage) or any mechanical MVR should have a INR therapeutic range of 2.5 to 3.5 target INR of 3). Heidi GH, et al. Chest 2012; 141:7S-47S Miranda RA et al. [facility] 2017; 70: 252-289 Performed By: #### A PTT #### [facility] [address] [place], [place] [address] PT Coag (PPP) [Time] 19.1 s High 9.7-13.[address] [facility] Comment on above: Performed By: #### A PTT #### [facility] [address] [place], [place] [address] Activated PTTon 08-11-2018 aPTT Coag (Bld) [Time] 40.7 s High 23.0-32.4 [facility] Comment on above: Result Comment: Unfr actionated Heparin Therapeutic Ranges: Standard Heparin Nomogram: 53 to 78 seconds (anti-Xa level of 0.3 to 0.7 U/mL) Low Dose/ACS Nomogram: 49 to 67 seconds (anti-Xa level of 0.2 to 0.5 U/mL) Stroke Treatment Nomogram: 49 to 67 seconds (anti-Xa level of 0.2 to 0.5 U/mL) Note: The APTT therapeutic range has been determined for the current lot of laboratory APTT reagent in use throughout the [facility]. Performed By: #### A PTT #### [place] [address] aPTT Coag (Bld) [Time] 65.6 s High 23.0-32.4 [facility] Comment on above: Result Comment: Unfr actionated Heparin Therapeutic Ranges: Standard Heparin Nomogram: 53 to 78 seconds (anti-Xa level of 0.3 to 0.7 U/mL) Low Dose/ACS Nomogram: 49 to 67 seconds (anti-Xa level of 0.2 to 0.5 U/mL) Stroke Treatment Nomogram: 49 to 67 seconds (anti-Xa level of 0.2 to 0.5 U/mL) Note: The APTT therapeutic range has been determined for the current lot of laboratory APTT reagent in use throughout the [facility]. Performed By: #### A PTT #### [place] [address] Basic Panelon 08-11-2018 Creatinine [Mass/Vol] 3.48 mg/dL High 0.51-0.95 [facility] Comment on above: Performed By: #### A PTT #### [place] [address] Anion gap [Moles/Vol] 11 mmol/L Normal 8-16 [facility] Comment on above: Performed By: #### A PTT #### [place] [address] CO2 [Moles/Vol] 26 mmol/L Normal 21-32 [facility] Comment on above: Performed By: #### A PTT #### [facility] [address] [place], [place] [address] Urea nitrogen [Mass/Vol] 31 mg/dL High 7-18 [facility] Comment on above: Performed By: #### A PTT #### [facility] [address] [place], [place] [address] Calcium [Mass/Vol] 8.3 mg/dL Low 8.5-10.1 [facility] Comment on above: Performed By: #### A PTT #### [facility] [address] [place], [place] [address] Glucose [Mass/Vol] 93 mg/dL Normal 70-99 [facility] Comment on above: Performed By: #### A PTT #### [facility] [address] [place] [address] Chloride [Moles/Vol] 98 mmol/L Normal 98-[address] [facility] Comment on above: Performed By: #### A PTT #### [place] [address] Potassium [Moles/Vol] 4.0 mmol/L Normal 3.5-5.1 [facility] Comment on above: Performed By: #### A PTT #### [place] [address] Sodium [Moles/Vol] 131 mmol/L Low 136-145 [facility] Comment on above: Performed By: #### A PTT #### [place] [address] Chromosome Karyo Bone Marrow on 08-11-2018 Result See Below Normal [facility] Comment on above: Result Comment: Preet ascencio Report to Follow Performed By: #### P T #### [place] [address] Hemogramon 08-11-2018 Erythrocyte distribution width (RBC) [Ratio] 15.6 % High 11.7-14.4 [facility] Comment on above: Performed By: #### A PTT #### [place] [address] Hematocrit (Bld) [Volume fraction] 23.9 % Low 34.1-44.9 [facility] Comment on above: Performed By: #### A PTT #### [facility] [address] [place] [address] Hemoglobin (Bld) [Mass/Vol] 7.5 g/dL Low 11.2-15.7 [facility] Comment on above: Performed By: #### A PTT #### [facility] [address] [place] [address] MCH (RBC) [Entitic mass] 28.5 pg Normal 25.6-32.2 [facility] Comment on above: Performed By: #### A PTT #### [facility] [address] [place] [address] MCHC (RBC) [Mass/Vol] 31.4 % Low 31.6-34.8 [facility] Comment on above: Performed By: #### A PTT #### [facility] [address] [place] [address] MCV (RBC) [Entitic vol] 90.9 fL Normal 79.4-94.8 [facility] Comment on above: Performed By: #### A PTT #### [facility] [address] [place] [address] Platelet mean volume (Bld) [Entitic vol] 10.2 fL Normal 9.4-12.3 [facility] Comment on above: Performed By: #### A PTT #### [place] [address] Platelets (Bld) [#/Vol] 270 thou/cmm Normal 182-369 [facility] Comment on above: Performed By: #### A PTT #### [facility] [address] [place] [address] RBC (Bld) [#/Vol] 2.63 mil/cmm Low 3.93-5.22 [facility] Comment on above: Performed By: #### A PTT #### [facility] [address] [place] [address] RDW SD 51.1 fl High 36.4-46.3 [facility] Comment on above: Performed By: #### A PTT #### [facility] [address] [place], [place] [address] WBC (Bld) [#/Vol] 13.82 thou/cmm High 3.98-10.04 [facility] Comment on above: Performed By: #### A PTT #### [facility] [address] [place], [place] [address] Hep B Core Ab,Totalon 2018 Hep B Core Ab,Total SEE BELOW Normal [facility] Comment on above: Result Comment: Hep B Core Ab,Total Negative NEGAT Performing Laboratory: [facility] [employer] [address] [place] [address] Performed By: #### A PTT #### [facility] [address] [place], [place] [address] Phosphorus Bloodon 9 Phosphate [Mass/Vol] 5.1 mg/dL High 2.5-4.[address] [facility] Comment on above: Performed By: #### A PTT #### [facility] [address] [place], [place] [address] Protimeon 08-11-2018 INR Coag (PPP) [Relative time] 1.93 {INR} High 0.90-1.30 [facility] Comment on above: Result Comment: Celina min K Antagonist (VKA) Therapeutic Range: INR 2 to 3 (Target INR of 2.5) Note: For patients treated with VKA drugs, such as warfarin, the [place] [employer] 2012 Guideline recommends a therapeutic INR range of 2 to 3 (target INR of 2.5). This recommendation includes high-risk patients with antiphospholipid syndrome with previous arterial or venous thromboembolism, current-generation mechanical or bioprosthetic aortic heart valve replacement. VKA Therapeutic Range for some Mechanical Valve Replacement: INR 2.5 to 3.5 (Target INR of 3) Note: Patients with mechanical aortic valve replacement and additional risk factors for thromboembolic events (atrial fibrillation, previous thromboembolism, LV dysfunction, hypercoagulable conditions) or an older generation mechanical AVR (i.e., ball in-Cage) or any mechanical MVR should have a INR therapeutic range of 2.5 to 3.5 target INR of 3). Heidi GH, et al. Chest 2012; 141:7S-47S Miranda [place] et al. [facility] 2017; 70: 252-289 Performed By: #### A PTT #### [facility] [address] [place], [place] [address] PT Coag (PPP) [Time] 19.1 s High 9.7-13.[address] [facility] Comment on above: Performed By: #### A PTT #### [facility] [address] [place], [place] [address] Activated PTTon 08-10-2018 aPTT Coag (Bld) [Time] 70.4 s High 23.0-32.4 [facility] Comment on above: Result Comment: Unfr actionated Heparin Therapeutic Ranges: Standard Heparin Nomogram: 53 to 78 seconds (anti-Xa level of 0.3 to 0.7 U/mL) Low Dose/ACS Nomogram: 49 to 67 seconds (anti-Xa level of 0.2 to 0.5 U/mL) Stroke Treatment Nomogram: 49 to 67 seconds (anti-Xa level of 0.2 to 0.5 U/mL) Note: The APTT therapeutic range has been determined for the current lot of laboratory APTT reagent in use throughout the [facility]. Performed By: #### A PTT #### [facility] [address] [place] [address] Basic Panelon 08-10-2018 Creatinine [Mass/Vol] 2.54 mg/dL High 0.51-0.95 [facility] Comment on above: Performed By: #### A PTT #### [facility] [address] [place] [address] Anion gap [Moles/Vol] 10 mmol/L Normal 8-16 [facility] Comment on above: Performed By: #### A PTT #### [facility] [address] [place], [place] [address] CO2 [Moles/Vol] 28 mmol/L Normal 21-32 [facility] Comment on above: Performed By: #### A PTT #### [facility] [address] [place], [place] [address] Glucose [Mass/Vol] 97 mg/dL Normal 70-99 [facility] Comment on above: Performed By: #### A PTT #### [facility] [address] [place], [place] [address] Urea nitrogen [Mass/Vol] 21 mg/dL High 7-18 [facility] Comment on above: Performed By: #### A PTT #### [facility] [address] [place], [place] [address] Calcium [Mass/Vol] 8.0 mg/dL Low 8.5-10.1 [facility] Comment on above: Performed By: #### A PTT #### [facility] [address] [place], [place] [address] Chloride [Moles/Vol] 99 mmol/L Normal 98-[address] [facility] Comment on above: Performed By: #### A PTT #### [facility] [address] [place] [address] Potassium [Moles/Vol] 3.8 mmol/L Normal 3.5-5.1 [facility] Comment on above: Performed By: #### A PTT #### [place] [address] Sodium [Moles/Vol] 133 mmol/L Low 136-145 [facility] Comment on above: Performed By: #### A PTT #### [place] [address] Glucose Meteron 08-10-2018 Glucose [Mass/Vol] 92 mg/dL Normal 70-99 [facility] Comment on above: Result Comment: WHITNEY FULLER Performed By: #### C BCD1 #### [place] [address] Hemogramon 08-10-2018 Erythrocyte distribution width (RBC) [Ratio] 16.1 % High 11.7-14.4 [facility] Comment on above: Performed By: #### A PTT #### [place] [address] Hematocrit (Bld) [Volume fraction] 23.7 % Low 34.1-44.9 [facility] Comment on above: Performed By: #### A PTT #### [place] [address] Hemoglobin (Bld) [Mass/Vol] 7.5 g/dL Low 11.2-15.7 [facility] Comment on above: Performed By: #### A PTT #### [facility] [address] [place] [address] MCH (RBC) [Entitic mass] 29.1 pg Normal 25.6-32.2 [facility] Comment on above: Performed By: #### A PTT #### [facility] [address] [place] [address] MCHC (RBC) [Mass/Vol] 31.6 % Normal 31.6-34.8 [facility] Comment on above: Performed By: #### A PTT #### [place] [address] MCV (RBC) [Entitic vol] 91.9 fL Normal 79.4-94.8 [facility] Comment on above: Performed By: #### A PTT #### [place] [address] Platelet mean volume (Bld) [Entitic vol] 10.3 fL Normal 9.4-12.3 [facility] Comment on above: Performed By: #### A PTT #### [place] [address] Platelets (Bld) [#/Vol] 219 thou/cmm Normal 182-369 [facility] Comment on above: Performed By: #### A PTT #### [place] [address] RBC (Bld) [#/Vol] 2.58 mil/cmm Low 3.93-5.22 [facility] Comment on above: Performed By: #### A PTT #### [facility] [address] [place] [address] RDW SD 53.3 fl High 36.4-46.3 [facility] Comment on above: Performed By: #### A PTT #### [place] [address] WBC (Bld) [#/Vol] 13.81 thou/cmm High 3.98-10.04 [facility] Comment on above: Performed By: #### A PTT #### [facility] [address] [place], [place] [address] Hep. B Surface Abon 08-11-19 19 Hep. B Surface Ab < 3.1 Normal [facility] Comment on above: Result Comment: Hep B. Antibody < 10.0 mIU/mL is negative. Hep B. Antibody > or = 10.0 mIU/mL is positive. Performed By: #### A PTT #### [facility] [address] [place], [place] [address] Hep. B Surface Agon 08-11-19 19 Hep.B Surface Ag Negative Normal Negative [facility] Comment on above: Performed By: #### A PTT #### [facility] [address] [place], [place] [address] Hepatic Panelon 08-10-2018 ALP [Catalytic activity/Vol] 101 U/L Normal 45-117 [facility] Comment on above: Performed By: #### A PTT #### [facility] [address] [place] [address] Bilirubin [Mass/Vol] 0.9 mg/dL Normal 0.2-1.[address] [facility] Comment on above: Performed By: #### A PTT #### [facility] [address] [place], [place] [address] Protein [Mass/Vol] 5.6 g/dL Low 6.4-8.2 [facility] Comment on above: Performed By: #### A PTT #### [facility] [address] [place], [place] [address] ALT [Catalytic activity/Vol] 47 U/L Normal 12-78 [facility] Comment on above: Performed By: #### A PTT #### [facility] [address] [place], [place] [address] AST [Catalytic activity/Vol] 44 U/L High 15-37 [facility] Comment on above: Performed By: #### A PTT #### [facility] [address] [place], [place] [address] Bilirubin [Mass/Vol] 0.62 mg/dL High 0.00-0.[address] [facility] Comment on above: Performed By: #### A PTT #### [facility] [address] [place], [place] [address] Albumin [Mass/Vol] 2.0 g/dL Low 3.4-5.0 [facility] Comment on above: Performed By: #### A PTT #### [facility] [address] [place], [place] [address] Phosphorus Bloodon 9 Phosphate [Mass/Vol] 4.1 mg/dL Normal 2.5-4.[address] [facility] Comment on above: Performed By: #### A PTT #### [facility] [address] [place], [place] [address] Protimeon 08-10-2018 INR Coag (PPP) [Relative time] 2.06 {INR} High 0.90-1.30 [facility] Comment on above: Result Comment: Celina min K Antagonist (VKA) Therapeutic Range: INR 2 to 3 (Target INR of 2.5) Note: For patients treated with VKA drugs, such as warfarin, the [place] [employer] 2012 Guideline recommends a therapeutic INR range of 2 to 3 (target INR of 2.5). This recommendation includes high-risk patients with antiphospholipid syndrome with previous arterial or venous thromboembolism, current-generation mechanical or bioprosthetic aortic heart valve replacement. VKA Therapeutic Range for some Mechanical Valve Replacement: INR 2.5 to 3.5 (Target INR of 3) Note: Patients with mechanical aortic valve replacement and additional risk factors for thromboembolic events (atrial fibrillation, previous thromboembolism, LV dysfunction, hypercoagulable conditions) or an older generation mechanical AVR (i.e., ball in-Cage) or any mechanical MVR should have a INR therapeutic range of 2.5 to 3.5 target INR of 3). Heidi GH, et al. Chest 2012; 141:7S-47S Miranda RA et al. J[facility] 2017; 70: 252-289 Performed By: #### A PTT #### [facility] [address] [place], [place] [address] PT Coag (PPP) [Time] 20.3 s High 9.7-13.[address] [facility] Comment on above: Performed By: #### A PTT #### [facility] [address] [place] [id number] Vancomycin,Randomon 08-11-19 19 INR Coag (Bld) [Relative time] 20.8 mg/L Normal [facility] Comment on above: Result Comment: Trou gh 10.0-20.0 mg/L Peak 18.0-40.0 mg/L Performed By: #### A PTT #### [facility] [address] [place] [address] Activated PTTon 08-09-2018 aPTT Coag (Bld) [Time] 72.3 s High 23.0-32.4 [facility] Comment on above: Result Comment: Unfr actionated Heparin Therapeutic Ranges: Standard Heparin Nomogram: 53 to 78 seconds (anti-Xa level of 0.3 to 0.7 U/mL) Low Dose/ACS Nomogram: 49 to 67 seconds (anti-Xa level of 0.2 to 0.5 U/mL) Stroke Treatment Nomogram: 49 to 67 seconds (anti-Xa level of 0.2 to 0.5 U/mL) Note: The APTT therapeutic range has been determined for the current lot of laboratory APTT reagent in use throughout the [facility]. Performed By: #### A PTT #### [facility] [address] [place] [address] aPTT Coag (Bld) [Time] 89.4 s Critically high 23.0-32. 4 [facility] Comment on above: Result Comment: Unfr actionated Heparin Therapeutic Ranges: Standard Heparin Nomogram: 53 to 78 seconds (anti-Xa level of 0.3 to 0.7 U/mL) Low Dose/ACS Nomogram: 49 to 67 seconds (anti-Xa level of 0.2 to 0.5 U/mL) Stroke Treatment Nomogram: 49 to 67 seconds (anti-Xa level of 0.2 to 0.5 U/mL) Note: The APTT therapeutic range has been determined for the current lot of laboratory APTT reagent in use throughout the [facility]. Performed By: #### P T #### [facility] [address] [place] [address] Basic Panelon 08-09-2018 Creatinine [Mass/Vol] 2.41 mg/dL High 0.51-0.95 [facility] Comment on above: Performed By: #### P T #### [facility] [address] [place], [place] [address] Anion gap [Moles/Vol] 9 mmol/L Normal 8-16 [facility] Comment on above: Performed By: #### P T #### [facility] [address] [place], [place] [address] Calcium [Mass/Vol] 8.4 mg/dL Low 8.5-10.1 [facility] Comment on above: Performed By: #### P T #### [facility] [address] [place], [place] [address] CO2 [Moles/Vol] 26 mmol/L Normal 21-32 [facility] Comment on above: Performed By: #### P T #### [facility] [address] [place], [place] [address] Glucose [Mass/Vol] 103 mg/dL High 70-99 [facility] Comment on above: Performed By: #### P T #### [facility] [address] [place], [place] [address] Urea nitrogen [Mass/Vol] 30 mg/dL High 7-18 [facility] Comment on above: Performed By: #### P T #### [facility] [address] [place], [place] [address] Chloride [Moles/Vol] 101 mmol/L Normal 98-[address] [facility] Comment on above: Performed By: #### P T #### [facility] [address] [place], [place] [address] Potassium [Moles/Vol] 4.5 mmol/L Normal 3.5-5.1 [facility] Comment on above: Performed By: #### P T #### [facility] [address] [place], [place] [address] Sodium [Moles/Vol] 131 mmol/L Low 136-145 [facility] Comment on above: Performed By: #### P T #### [address] [address] Hemogramon 08-09-2018 Erythrocyte distribution width (RBC) [Ratio] 16.4 % High 11.7-14.4 [facility] Comment on above: Performed By: #### P T #### [facility] [address] [place] [address] Hematocrit (Bld) [Volume fraction] 24.7 % Low 34.1-44.9 [facility] Comment on above: Performed By: #### P T #### [facility] [address] [place] [address] Hemoglobin (Bld) [Mass/Vol] 7.9 g/dL Low 11.2-15.7 [facility] Comment on above: Performed By: #### P T #### [facility] [address] [place] [address] MCH (RBC) [Entitic mass] 29.2 pg Normal 25.6-32.2 [facility] Comment on above: Performed By: #### P T #### [place] [address] MCHC (RBC) [Mass/Vol] 32.0 % Normal 31.6-34.8 [facility] Comment on above: Performed By: #### P T #### [place] [address] MCV (RBC) [Entitic vol] 91.1 fL Normal 79.4-94.8 [facility] Comment on above: Performed By: #### P T #### [place] [address] Platelet mean volume (Bld) [Entitic vol] 10.8 fL Normal 9.4-12.3 [facility] Comment on above: Performed By: #### P T #### [facility] [address] [place] [address] Platelets (Bld) [#/Vol] 228 thou/cmm Normal 182-369 [facility] Comment on above: Performed By: #### P T #### [place] [address] RBC (Bld) [#/Vol] 2.71 mil/cmm Low 3.93-5.22 [facility] Comment on above: Performed By: #### P T #### [facility] [address] [place] [address] RDW SD 53.8 fl High 36.4-46.3 [facility] Comment on above: Performed By: #### P T #### [facility] [address] [place] [address] WBC (Bld) [#/Vol] 18.89 thou/cmm High 3.98-10.04 [facility] Comment on above: Performed By: #### P T #### [facility] [address] [place] [address] Hgbon 08-09-2018 Hemoglobin (Bld) [Mass/Vol] 7.6 g/dL Low 11.2-15.7 [facility] Comment on above: Performed By: #### A PTT #### [facility] [address] [place] [address] Phosphorus Bloodon 9 Phosphate [Mass/Vol] 3.8 mg/dL Normal 2.5-4.[address] [facility] Comment on above: Performed By: #### A PTT #### [place] [address] Prealbuminon 08-09-2018 Prealbumin [Mass/Vol] 13.9 mg/dL Low 20.0-40.0 [facility] Comment on above: Performed By: #### A PTT #### [place] [address] Vancomycin,Randomon 08-10-19 19 INR Coag (Bld) [Relative time] 30.0 mg/L Normal [facility] Comment on above: Result Comment: Trou gh 10.0-20.0 mg/L Peak 18.0-40.0 mg/L Performed By: #### A PTT #### [facility] [address] [place] [address] Activated PTTon 08-08-2018 aPTT Coag (Bld) [Time] 67.8 s High 23.0-32.4 [facility] Comment on above: Result Comment: Unfr actionated Heparin Therapeutic Ranges: Standard Heparin Nomogram: 53 to 78 seconds (anti-Xa level of 0.3 to 0.7 U/mL) Low Dose/ACS Nomogram: 49 to 67 seconds (anti-Xa level of 0.2 to 0.5 U/mL) Stroke Treatment Nomogram: 49 to 67 seconds (anti-Xa level of 0.2 to 0.5 U/mL) Note: The APTT therapeutic range has been determined for the current lot of laboratory APTT reagent in use throughout the [facility]. Performed By: #### P T #### [facility] [address] [place] [address] Basic Panelon 08-08-2018 Creatinine [Mass/Vol] 1.42 mg/dL High 0.51-0.95 [facility] Comment on above: Performed By: #### P T #### [place] [address] Anion gap [Moles/Vol] 9 mmol/L Normal 8-16 [facility] Comment on above: Performed By: #### P T #### [facility] [address] [place], [place] [address] CO2 [Moles/Vol] 26 mmol/L Normal 21-32 [facility] Comment on above: Performed By: #### P T #### [facility] [address] [place], [place] [address] Glucose [Mass/Vol] 89 mg/dL Normal 70-99 [facility] Comment on above: Performed By: #### P T #### [facility] [address] [place], [place] [address] Urea nitrogen [Mass/Vol] 21 mg/dL High 7-18 [facility] Comment on above: Performed By: #### P T #### [facility] [address] [place], [place] [address] Calcium [Mass/Vol] 8.2 mg/dL Low 8.5-10.1 [facility] Comment on above: Performed By: #### P T #### [facility] [address] [place], [place] [address] Chloride [Moles/Vol] 105 mmol/L Normal 98-[address] [facility] Comment on above: Performed By: #### P T #### [facility] [address] [place] [address] Potassium [Moles/Vol] 4.8 mmol/L Normal 3.5-5.1 [facility] Comment on above: Performed By: #### P T #### [facility] [address] [place] [address] Sodium [Moles/Vol] 135 mmol/L Low 136-145 [facility] Comment on above: Performed By: #### P T #### [facility] [address] [place] [address] Blood Gas Arterialon 019 Base Excess 2.7 mmol/L Normal -3.0-3.0 [facility] Comment on above: Performed By: #### P T #### [facility] [address] [place] [address] FIO2 30 % Normal [facility] Comment on above: Performed By: #### P T #### [facility] [address] [place] [address] HCO3 (Bld) [Moles/Vol] 25.6 mmol/L Normal 21.0-28.0 [facility] Comment on above: Performed By: #### P T #### [facility] [address] [place] [address] O2% Sat Arterial 98.0 % Normal 96.0-100.0 [facility] Comment on above: Performed By: #### P T #### [facility] [address] [place] [address] PCO2 Arterial 33.5 mm Hg Low 35.0-45.0 [facility] Comment on above: Performed By: #### P T #### [facility] [address] [place] [address] pH Arterial 7.496 High 7.350-7.450 [facility] Comment on above: Performed By: #### P T #### [facility] [address] [place] [address] PO2 Arterial 90.2 mm Hg Normal 83.0-108.0 [facility] Comment on above: Performed By: #### P T #### [facility] [address] [place] [address] Cult Bloodon 08-08-2018 Cult Blood Test performed at [facility] No growth Normal [facility] Comment on above: Performed By: #### A PTT #### [facility] [address] [place] [address] Cult and Smr Respiratoryon 0 08-08-2018 Cult and Smr Respiratory Test performed at [facility] Absence of normal oropharyngeal reynaldo No organisms seen Many Polymorphonuclear leukocytes Few Mononuclear cells ORGANISM: *Yeast not Love albicans or Cryptococcus neoformans (ID: 1) Rare Strain 1 ORGANISM: *Yeast not Love albicans or Cryptococcus neoformans (ID: 2) Rare Strain 2 Normal [facility] Comment on above: Performed By: #### P T #### [facility] [address] [place] [address] Fungal Culture, Bloodon 07-21 Fungal Culture, Blood Test performed at [facility] No fungus (yeast or mold) cultured Normal [facility] Comment on above: Performed By: #### A PTT #### [facility] [address] [place] [address] Hemogramon 08-08-2018 Erythrocyte distribution width (RBC) [Ratio] 16.8 % High 11.7-14.4 [facility] Comment on above: Performed By: #### P T #### [facility] [address] [place] [address] Hematocrit (Bld) [Volume fraction] 23.9 % Low 34.1-44.9 [facility] Comment on above: Performed By: #### P T #### [facility] [address] [place] [address] Hemoglobin (Bld) [Mass/Vol] 7.5 g/dL Low 11.2-15.7 [facility] Comment on above: Performed By: #### P T #### [facility] [address] [place] [address] MCH (RBC) [Entitic mass] 28.1 pg Normal 25.6-32.2 [facility] Comment on above: Performed By: #### P T #### [facility] [address] [place] [address] MCHC (RBC) [Mass/Vol] 31.4 % Low 31.6-34.8 [facility] Comment on above: Performed By: #### P T #### [facility] [address] [place] [address] MCV (RBC) [Entitic vol] 89.5 fL Normal 79.4-94.8 [facility] Comment on above: Performed By: #### P T #### [facility] [address] [place] [address] Platelet mean volume (Bld) [Entitic vol] 11.5 fL Normal 9.4-12.3 [facility] Comment on above: Performed By: #### P T #### [facility] [address] [place] [address] Platelets (Bld) [#/Vol] 198 thou/cmm Normal 182-369 [facility] Comment on above: Performed By: #### P T #### [facility] [address] [place] [address] RBC (Bld) [#/Vol] 2.67 mil/cmm Low 3.93-5.22 [facility] Comment on above: Performed By: #### P T #### [facility] [address] [place] [address] RDW SD 54.2 fl High 36.4-46.3 [facility] Comment on above: Performed By: #### P T #### [facility] [address] [place] [address] WBC (Bld) [#/Vol] 20.61 thou/cmm High 3.98-10.04 [facility] Comment on above: Performed By: #### P T #### [facility] [address] [place] [address] Hgbon 08-08-2018 Hemoglobin (Bld) [Mass/Vol] 6.8 g/dL Critically low 11.2-15.7 [facility] Comment on above: Performed By: #### P T #### [facility] [address] [place] [address] Phosphorus Bloodon 9 Phosphate [Mass/Vol] 2.1 mg/dL Low 2.5-4.[address] [facility] Comment on above: Performed By: #### P T #### [place] [address] Procalcitoninon 08-08-2018 Procalcitonin 0.57 ng/mL Normal [facility] Comment on above: Result Comment: Leve ls <0.50 ng/mL represent a low risk of severe sepsis and/or septic shock, while levels >2.00 ng/mL represent an elevated risk of severe sepsis and/or septic shock. Levels <0.50 ng/mL do not exclude infection, as infections or systemic infections in early stages (<6hrs) can be associated with low concentrations. Levels between 0.50-2.00 ng/mL should be interpreted in the clinical context of the patient, as a variety of conditions such as ho, trauma, surgery and severe cardiogenic shock can cause procalcitonin elevations. Performed By: #### P T #### [place] [address] RBC Productson 08-08-2018 Xmatch Unit 1 see below Normal [facility] Comment on above: Result Comment: Comp atible Performed By: #### P T #### [place] [address] Type and Screenon 08-08-2018 Comment See Below Normal [facility] Comment on above: Result Comment: Scre en &/or Xmatch expires in 3 days at 12 midnight. Redraw patient at that time. Performed By: #### P T #### [place] [address] ABO group Nom (Bld) O Normal [facility] Comment on above: Performed By: #### P T #### [place] [address] RH Type Positive Normal [facility] Comment on above: Performed By: #### P T #### [place] [address] Urinalysis Routineon 019 RBC LM.HPF (Urine sed) [#/Area] 0.0-3 Normal 0.0-5.0 [facility] Comment on above: Performed By: #### P T #### [facility] [address] [place] [address] Renal Tubular Cells 2-5 Abnormal 0-5 [facility] Comment on above: Performed By: #### P T #### [place] [address] Bacteria LM.HPF (Urine sed) [#/Area] NONE Normal None [facility] Comment on above: Performed By: #### P T #### [place] [address] Ep Cells Urine 4.6 /hpf Normal 0.0-5.0 [facility] Comment on above: Performed By: #### P T #### [place] [address] Hyaline Cast 5.2 /lpf High 0.0-1.0 [facility] Comment on above: Performed By: #### P T #### [place] [address] WBC LM.HPF (Urine sed) [#/Area] 12.2 /[HPF] High 0.0-5.0 [facility] Comment on above: Performed By: #### P T #### [place] [address] Appearance (U) CLOUDY Normal [facility] Comment on above: Performed By: #### P T #### [place] [address] Bilirubin (U) [Mass/Vol] see below Abnormal Negative [facility] Comment on above: Result Comment: Dete cted (Unable to confirm). Performed By: #### P T #### [place] [address] Color (U) DK YELLOW Normal [facility] Comment on above: Performed By: #### P T #### [place] [address] Glucose Ql (U) Negative Normal Negative [facility] Comment on above: Performed By: #### P T #### [facility] [address] [place] [address] Hemoglobin,Urine Negative Normal Negative [facility] Comment on above: Performed By: #### P T #### [facility] [address] [place] [address] Ketone Urine Negative Normal Negative [facility] Comment on above: Performed By: #### P T #### [facility] [address] [place] [address] Leukocytes Esterase TRACE Abnormal Negative [facility] Comment on above: Performed By: #### P T #### [facility] [address] [place] [address] Nitrites Urine Negative Normal Negative [facility] Comment on above: Performed By: #### P T #### [place] [address] pH (U) 7.0 [pH] Normal 5.0-8.0 [facility] Comment on above: Performed By: #### P T #### [facility] [address] [place] [address] Protein (U) [Mass/Vol] 100 mg/dL Abnormal Negative [facility] Comment on above: Performed By: #### P T #### [facility] [address] [place] [address] Specific [place], Ur 1.014 Normal 1.005-1.030 [facility] Comment on above: Performed By: #### P T #### [facility] [address] [place] [address] Urobilinogen,Ur 0.2 EU/dL Normal 0.2-1.0 [facility] Comment on above: Performed By: #### P T #### [place] [address] Activated PTTon 08-07-2018 aPTT Coag (Bld) [Time] 66.1 s High 23.0-32.4 [facility] Comment on above: Result Comment: Unfr actionated Heparin Therapeutic Ranges: Standard Heparin Nomogram: 53 to 78 seconds (anti-Xa level of 0.3 to 0.7 U/mL) Low Dose/ACS Nomogram: 49 to 67 seconds (anti-Xa level of 0.2 to 0.5 U/mL) Stroke Treatment Nomogram: 49 to 67 seconds (anti-Xa level of 0.2 to 0.5 U/mL) Note: The APTT therapeutic range has been determined for the current lot of laboratory APTT reagent in use throughout the [facility]. Performed By: #### P T #### [facility] [address] [place] [address] Basic Panelon 08-07-2018 Creatinine [Mass/Vol] 1.47 mg/dL High 0.51-0.95 [facility] Comment on above: Performed By: #### P T #### [facility] [address] [place] [address] Anion gap [Moles/Vol] 7 mmol/L Low 8-16 [facility] Comment on above: Performed By: #### P T #### [address] [address] CO2 [Moles/Vol] 28 mmol/L Normal 21-32 [facility] Comment on above: Performed By: #### P T #### [facility] [address] [place], [place] [address] Glucose [Mass/Vol] 121 mg/dL High 70-99 [facility] Comment on above: Performed By: #### P T #### [facility] [address] [place], [place] [address] Urea nitrogen [Mass/Vol] 24 mg/dL High 7-18 [facility] Comment on above: Performed By: #### P T #### [facility] [address] [place], [place] [address] Calcium [Mass/Vol] 7.5 mg/dL Low 8.5-10.1 [facility] Comment on above: Performed By: #### P T #### [facility] [address] [place], [place] [address] Chloride [Moles/Vol] 105 mmol/L Normal 98-[address] [facility] Comment on above: Performed By: #### P T #### [facility] [address] [place] [address] Potassium [Moles/Vol] 4.2 mmol/L Normal 3.5-5.1 [facility] Comment on above: Performed By: #### P T #### [facility] [address] [place] [address] Sodium [Moles/Vol] 136 mmol/L Normal 136-145 [facility] Comment on above: Performed By: #### P T #### [facility] [address] [place] [address] Blood Gas Arterialon 08-07-2 019 Base Excess 1.8 mmol/L Normal -3.0-3.0 [facility] Comment on above: Performed By: #### P T #### [facility] [address] [place] [address] FIO2 40 % Normal [facility] Comment on above: Performed By: #### P T #### [facility] [address] [place] [address] HCO3 (Bld) [Moles/Vol] 25.4 mmol/L Normal 21.0-28.0 [facility] Comment on above: Performed By: #### P T #### [facility] [address] [place] [address] O2% Sat Arterial 99.5 % Normal 96.0-100.0 [facility] Comment on above: Performed By: #### P T #### [facility] [address] [place] [address] PCO2 Arterial 39.2 mm Hg Normal 35.0-45.0 [facility] Comment on above: Performed By: #### P T #### [facility] [address] [place] [address] pH Arterial 7.432 Normal 7.350-7.450 [facility] Comment on above: Performed By: #### P T #### [place] [address] PO2 Arterial 151.0 mm Hg High 83.0-108.0 [facility] Comment on above: Performed By: #### P T #### [facility] [address] [place] [address] Hemogramon 08-07-2018 Erythrocyte distribution width (RBC) [Ratio] 17.3 % High 11.7-14.4 [facility] Comment on above: Performed By: #### P T #### [facility] [address] [place] [address] Hematocrit (Bld) [Volume fraction] 24.5 % Low 34.1-44.9 [facility] Comment on above: Performed By: #### P T #### [facility] [address] [place] [address] Hemoglobin (Bld) [Mass/Vol] 7.4 g/dL Low 11.2-15.7 [facility] Comment on above: Performed By: #### P T #### [facility] [address] [place] [address] MCH (RBC) [Entitic mass] 27.6 pg Normal 25.6-32.2 [facility] Comment on above: Performed By: #### P T #### [facility] [address] [place] [address] MCHC (RBC) [Mass/Vol] 30.2 % Low 31.6-34.8 [facility] Comment on above: Performed By: #### P T #### [facility] [address] [place] [address] MCV (RBC) [Entitic vol] 91.4 fL Normal 79.4-94.8 [facility] Comment on above: Performed By: #### P T #### [facility] [address] [place], [place] [address] Platelet mean volume (Bld) [Entitic vol] 11.7 fL Normal 9.4-12.3 [facility] Comment on above: Performed By: #### P T #### [facility] [address] [place], [place] [address] Platelets (Bld) [#/Vol] 160 thou/cmm Low 182-369 [facility] Comment on above: Performed By: #### P T #### [facility] [address] [place] [id number] RBC (Bld) [#/Vol] 2.68 mil/cmm Low 3.93-5.22 [facility] Comment on above: Performed By: #### P T #### [facility] [address] [place] [id number] RDW SD 56.7 fl High 36.4-46.3 [facility] Comment on above: Performed By: #### P T #### [facility] [address] [place] [id number] WBC (Bld) [#/Vol] 15.28 thou/cmm High 3.98-10.04 [facility] Comment on above: Performed By: #### P T #### [facility] [address] [place] [id number] Hgbon 08-07-2018 Hemoglobin (Bld) [Mass/Vol] 7.6 g/dL Low 11.2-15.7 [facility] Comment on above: Performed By: #### P T #### [facility] [address] [place] [id number] Phosphorus Bloodon 9 Phosphate [Mass/Vol] 3.2 mg/dL Normal 2.5-4.[address] [facility] Comment on above: Performed By: #### P T #### [facility] [address] [place] [id number] Procalcitoninon 08-07-2018 Procalcitonin 0.39 ng/mL Normal [facility] Comment on above: Result Comment: Leve ls <0.50 ng/mL represent a low risk of severe sepsis and/or septic shock, while levels >2.00 ng/mL represent an elevated risk of severe sepsis and/or septic shock. Levels <0.50 ng/mL do not exclude infection, as infections or systemic infections in early stages (<6hrs) can be associated with low concentrations. Levels between 0.50-2.00 ng/mL should be interpreted in the clinical context of the patient, as a variety of conditions such as ho, trauma, surgery and severe cardiogenic shock can cause procalcitonin elevations. Performed By: #### P T #### [address] [address] Activated PTTon 08-06-2018 aPTT Coag (Bld) [Time] 65.4 s High 23.0-32.4 [facility] Comment on above: Result Comment: Unfr actionated Heparin Therapeutic Ranges: Standard Heparin Nomogram: 53 to 78 seconds (anti-Xa level of 0.3 to 0.7 U/mL) Low Dose/ACS Nomogram: 49 to 67 seconds (anti-Xa level of 0.2 to 0.5 U/mL) Stroke Treatment Nomogram: 49 to 67 seconds (anti-Xa level of 0.2 to 0.5 U/mL) Note: The APTT therapeutic range has been determined for the current lot of laboratory APTT reagent in use throughout the [facility]. Performed By: #### P T #### [place] [address] Basic Panelon 08-06-2018 Creatinine [Mass/Vol] 1.49 mg/dL High 0.51-0.95 [facility] Comment on above: Performed By: #### P T #### [address] [address] Anion gap [Moles/Vol] 6 mmol/L Low 8-16 [facility] Comment on above: Performed By: #### P T #### [address] [address] Calcium [Mass/Vol] 7.8 mg/dL Low 8.5-10.1 [facility] Comment on above: Performed By: #### P T #### [address] [address] CO2 [Moles/Vol] 28 mmol/L Normal 21-32 [facility] Comment on above: Performed By: #### P T #### [address] [address] Glucose [Mass/Vol] 128 mg/dL High 70-99 [facility] Comment on above: Performed By: #### P T #### [address] [address] Urea nitrogen [Mass/Vol] 23 mg/dL High 7-18 [facility] Comment on above: Performed By: #### P T #### [facility] [address] [place] [address] Chloride [Moles/Vol] 105 mmol/L Normal 98-[address] [facility] Comment on above: Performed By: #### P T #### [facility] [address] [place], [place] [address] Potassium [Moles/Vol] 3.8 mmol/L Normal 3.5-5.1 [facility] Comment on above: Performed By: #### P T #### [facility] [address] [place] [address] Sodium [Moles/Vol] 135 mmol/L Low 136-145 [facility] Comment on above: Performed By: #### P T #### [facility] [address] [place] [address] Blood Gas Arterialon 019 FIO2 40 % Normal [facility] Comment on above: Performed By: #### P T #### [facility] [address] [place] [address] Base Excess 1.9 mmol/L Normal -3.0-3.0 [facility] Comment on above: Performed By: #### P T #### [facility] [address] [place] [address] HCO3 (Bld) [Moles/Vol] 25.3 mmol/L Normal 21.0-28.0 [facility] Comment on above: Performed By: #### P T #### [facility] [address] [place], [place] [address] O2% Sat Arterial 99.2 % Normal 96.0-100.0 [facility] Comment on above: Performed By: #### P T #### [facility] [address] [place], [place] [address] PCO2 Arterial 35.2 mm Hg Normal 35.0-45.0 [facility] Comment on above: Performed By: #### P T #### [facility] [address] [place] [address] pH Arterial 7.467 High 7.350-7.450 [facility] Comment on above: Performed By: #### P T #### [facility] [address] [place] [address] PO2 Arterial 131.0 mm Hg High 83.0-108.0 [facility] Comment on above: Performed By: #### P T #### [facility] [address] [place] [address] Hemogramon 08-06-2018 Erythrocyte distribution width (RBC) [Ratio] 17.2 % High 11.7-14.4 [facility] Comment on above: Performed By: #### P T #### [facility] [address] [place] [address] Hematocrit (Bld) [Volume fraction] 24.3 % Low 34.1-44.9 [facility] Comment on above: Performed By: #### P T #### [facility] [address] [place] [address] Hemoglobin (Bld) [Mass/Vol] 7.7 g/dL Low 11.2-15.7 [facility] Comment on above: Performed By: #### P T #### [facility] [address] [place] [address] MCH (RBC) [Entitic mass] 28.7 pg Normal 25.6-32.2 [facility] Comment on above: Performed By: #### P T #### [facility] [address] [place] [address] MCHC (RBC) [Mass/Vol] 31.7 % Normal 31.6-34.8 [facility] Comment on above: Performed By: #### P T #### [facility] [address] [place] [address] MCV (RBC) [Entitic vol] 90.7 fL Normal 79.4-94.8 [facility] Comment on above: Performed By: #### P T #### [facility] [address] [place] [address] Platelet mean volume (Bld) [Entitic vol] 11.4 fL Normal 9.4-12.3 [facility] Comment on above: Performed By: #### P T #### [facility] [address] [place], [place] [address] Platelets (Bld) [#/Vol] 111 thou/cmm Low 182-369 [facility] Comment on above: Performed By: #### P T #### [facility] [address] [place], [place] [address] RBC (Bld) [#/Vol] 2.68 mil/cmm Low 3.93-5.22 [facility] Comment on above: Performed By: #### P T #### [facility] [address] [place] [address] RDW SD 56.5 fl High 36.4-46.3 [facility] Comment on above: Performed By: #### P T #### [facility] [address] [place] [address] WBC (Bld) [#/Vol] 13.87 thou/cmm High 3.98-10.04 [facility] Comment on above: Performed By: #### P T #### [facility] [address] [place] [address] Hgbon 08-06-2018 Hemoglobin (Bld) [Mass/Vol] 7.1 g/dL Low 11.2-15.7 [facility] Comment on above: Performed By: #### P T #### [facility] [address] [place] [address] Magnesium Bloodon 08-06-2018 Magnesium [Mass/Vol] 2.5 mg/dL Normal 1.6-2.[address] [facility] Comment on above: Performed By: #### P T #### [facility] [address] [place], [place] [address] Phosphorus Bloodon 9 Phosphate [Mass/Vol] 2.0 mg/dL Low 2.5-4.[address] [facility] Comment on above: Performed By: #### P T #### [facility] [address] [place] [address] Activated PTTon 08-05-2018 aPTT Coag (Bld) [Time] 71.7 s High 23.0-32.4 [facility] Comment on above: Result Comment: Unfr actionated Heparin Therapeutic Ranges: Standard Heparin Nomogram: 53 to 78 seconds (anti-Xa level of 0.3 to 0.7 U/mL) Low Dose/ACS Nomogram: 49 to 67 seconds (anti-Xa level of 0.2 to 0.5 U/mL) Stroke Treatment Nomogram: 49 to 67 seconds (anti-Xa level of 0.2 to 0.5 U/mL) Note: The APTT therapeutic range has been determined for the current lot of laboratory APTT reagent in use throughout the [facility]. Performed By: #### P T #### [place] [address] aPTT Coag (Bld) [Time] 69.2 s High 23.0-32.4 [facility] Comment on above: Result Comment: Unfr actionated Heparin Therapeutic Ranges: Standard Heparin Nomogram: 53 to 78 seconds (anti-Xa level of 0.3 to 0.7 U/mL) Low Dose/ACS Nomogram: 49 to 67 seconds (anti-Xa level of 0.2 to 0.5 U/mL) Stroke Treatment Nomogram: 49 to 67 seconds (anti-Xa level of 0.2 to 0.5 U/mL) Note: The APTT therapeutic range has been determined for the current lot of laboratory APTT reagent in use throughout the [facility]. Performed By: #### P T #### [place] [address] Basic Panelon 08-05-2018 Creatinine [Mass/Vol] 1.65 mg/dL High 0.51-0.95 [facility] Comment on above: Performed By: #### P T #### [address] [address] Anion gap [Moles/Vol] 7 mmol/L Low 8-16 [facility] Comment on above: Performed By: #### P T #### [address] [address] CO2 [Moles/Vol] 28 mmol/L Normal 21-32 [facility] Comment on above: Performed By: #### P T #### [place] [id number] Glucose [Mass/Vol] 109 mg/dL High 70-99 [facility] Comment on above: Performed By: #### P T #### [facility] [address] [place] [address] Urea nitrogen [Mass/Vol] 22 mg/dL High 7-18 [facility] Comment on above: Performed By: #### P T #### [facility] [address] [place] [address] Calcium [Mass/Vol] 7.6 mg/dL Low 8.5-10.1 [facility] Comment on above: Performed By: #### P T #### [facility] [address] [place] [address] Chloride [Moles/Vol] 104 mmol/L Normal 98-[address] [facility] Comment on above: Performed By: #### P T #### [facility] [address] [place] [address] Potassium [Moles/Vol] 4.2 mmol/L Normal 3.5-5.1 [facility] Comment on above: Performed By: #### P T #### [facility] [address] [place] [address] Sodium [Moles/Vol] 135 mmol/L Low 136-145 [facility] Comment on above: Performed By: #### P T #### [facility] [address] [place] [address] Flow Cytometry Leukemia/Lymp homaon 08-05-2018 Result See Below Normal [facility] Comment on above: Result Comment: Deta iled Report to Follow Performed By: #### P T #### [facility] [address] [place] [address] Hemogramon 08-05-2018 Erythrocyte distribution width (RBC) [Ratio] 17.9 % High 11.7-14.4 [facility] Comment on above: Performed By: #### P T #### [facility] [address] [place], [place] [address] Hematocrit (Bld) [Volume fraction] 25.6 % Low 34.1-44.9 [facility] Comment on above: Performed By: #### P T #### [facility] [address] [place] [address] Hemoglobin (Bld) [Mass/Vol] 7.9 g/dL Low 11.2-15.7 [facility] Comment on above: Performed By: #### P T #### [facility] [address] [place] [address] MCH (RBC) [Entitic mass] 28.4 pg Normal 25.6-32.2 [facility] [facility] Comment on above: Performed By: #### P T #### [facility] [address] [place] [address] MCHC (RBC) [Mass/Vol] 30.9 % Low 31.6-34.8 [facility] Comment on above: Performed By: #### P T #### [facility] [address] [place] [address] MCV (RBC) [Entitic vol] 92.1 fL Normal 79.4-94.8 [facility] Comment on above: Performed By: #### P T #### [facility] [address] [place] [address] Platelet mean volume (Bld) [Entitic vol] 11.9 fL Normal 9.4-12.3 [facility] Comment on above: Performed By: #### P T #### [facility] [address] [place] [address] Platelets (Bld) [#/Vol] 112 thou/cmm Low 182-369 [facility] Comment on above: Performed By: #### P T #### [facility] [address] [place] [address] RBC (Bld) [#/Vol] 2.78 mil/cmm Low 3.93-5.22 [facility] Comment on above: Performed By: #### P T #### [facility] [address] [place] [address] RDW SD 58.8 fl High 36.4-46.3 [facility] Comment on above: Performed By: #### P T #### [facility] [address] [place] [address] WBC (Bld) [#/Vol] 12.31 thou/cmm High 3.98-10.04 [facility] Comment on above: Performed By: #### P T #### [facility] [address] [place], [place] [address] Hgbon 08-05-2018 Hemoglobin (Bld) [Mass/Vol] 7.8 g/dL Low 11.2-15.7 [facility] Comment on above: Performed By: #### P T #### [facility] [address] [place] [address] LD,Total Bloodon 08-05-2018 LD,Total Blood 439 U/L High 84-246 [facility] Comment on above: Performed By: #### P T #### [facility] [address] [place] [address] Misc. Teston 08-05-2018 Misc. Test Result SEE BELOW Normal [facility] Comment on above: Result Comment: Inte rleukin-2 Recepto 21452 H Reference range: <=1033 Unit: pg/mL (NOTE) Diluted and confirmed. INTERPRETIVE INFORMATION: Cytokines Results are used to understand the pathophysiology of immune, infectious, or inflammatory disorders, or may be used for research purposes. Test developed and characteristics determined by [employer] See Compliance Statement B: [email or web address]CS Performed by [employer] [address] [place] [id number] [email or web address], Roger Paiz MD, Lab. Director Performing Laboratory: Performed By: #### P T #### [facility] [address] [place] [address] Phosphorus Bloodon 9 Phosphate [Mass/Vol] 1.9 mg/dL Critically low 2.5-4.9 [facility] Comment on above: Performed By: #### P T #### [facility] [address] [place] [address] Prealbuminon 08-05-2018 Prealbumin [Mass/Vol] 12.1 mg/dL Low 20.0-40.0 [facility] Comment on above: Performed By: #### P T #### [facility] [address] [place], [place] [address] Serotonin Serumon 08-05-2018 Serotonin Serum SEE BELOW Normal [facility] Comment on above: Result Comment: Sero tonin Serum <10 L Reference range: 50 to 220 Unit: ng/mL (NOTE) TEST INFORMATION: Serotonin, Serum Test developed and characteristics determined by [employer] See Compliance Statement B: [employer] Performed by [employer] [address] [place] [id number] [email or web address], Roger Paiz MD, Lab. Director Performing Laboratory: Performed By: #### P T #### [facility] [address] [place], [place] [address] Activated PTTon 08-04-2018 aPTT Coag (Bld) [Time] 65.7 s High 23.0-32.4 [facility] Comment on above: Result Comment: Unfr actionated Heparin Therapeutic Ranges: Standard Heparin Nomogram: 53 to 78 seconds (anti-Xa level of 0.3 to 0.7 U/mL) Low Dose/ACS Nomogram: 49 to 67 seconds (anti-Xa level of 0.2 to 0.5 U/mL) Stroke Treatment Nomogram: 49 to 67 seconds (anti-Xa level of 0.2 to 0.5 U/mL) Note: The APTT therapeutic range has been determined for the current lot of laboratory APTT reagent in use throughout the [facility]. Performed By: #### P T #### [address] [address] aPTT Coag (Bld) [Time] 58.0 s High 23.0-32.4 [facility] Comment on above: Result Comment: Unfr actionated Heparin Therapeutic Ranges: Standard Heparin Nomogram: 53 to 78 seconds (anti-Xa level of 0.3 to 0.7 U/mL) Low Dose/ACS Nomogram: 49 to 67 seconds (anti-Xa level of 0.2 to 0.5 U/mL) Stroke Treatment Nomogram: 49 to 67 seconds (anti-Xa level of 0.2 to 0.5 U/mL) Note: The APTT therapeutic range has been determined for the current lot of laboratory APTT reagent in use throughout the [facility]. Performed By: #### P T #### [facility] [address] [place], [place] [address] aPTT Coag (Bld) [Time] 54.4 s High 23.0-32.4 [facility] Comment on above: Result Comment: Unfr actionated Heparin Therapeutic Ranges: Standard Heparin Nomogram: 53 to 78 seconds (anti-Xa level of 0.3 to 0.7 U/mL) Low Dose/ACS Nomogram: 49 to 67 seconds (anti-Xa level of 0.2 to 0.5 U/mL) Stroke Treatment Nomogram: 49 to 67 seconds (anti-Xa level of 0.2 to 0.5 U/mL) Note: The APTT therapeutic range has been determined for the current lot of laboratory APTT reagent in use throughout the [facility]. Performed By: #### P T #### [facility] [address] [place], [place] [address] aPTT Coag (Bld) [Time] 53.3 s High 23.0-32.4 [facility] Comment on above: Result Comment: Unfr actionated Heparin Therapeutic Ranges: Standard Heparin Nomogram: 53 to 78 seconds (anti-Xa level of 0.3 to 0.7 U/mL) Low Dose/ACS Nomogram: 49 to 67 seconds (anti-Xa level of 0.2 to 0.5 U/mL) Stroke Treatment Nomogram: 49 to 67 seconds (anti-Xa level of 0.2 to 0.5 U/mL) Note: The APTT therapeutic range has been determined for the current lot of laboratory APTT reagent in use throughout the [facility]. Performed By: #### P T #### [address] [address] Anti Plt Factor 4 Abon 08-04 Anti Plt Factor 4 Ab SEE BELOW Normal [facility] Comment on above: Result Comment: Plas ma+PF4 Complex 1.341 Called to Emily Marte at [place] [address], 07/31/18 by [employer] OD < 0.400 is negative Plas+PF4 Hi Dose Hep 0.125 % Inhibition 100 Interpretation Positive The anti-platelet factor 4 IgG antibody XIOMARA assay result is positive. This is consistent with the presence of anti-PF4/heparin antibodies in the patient's plasma. This result alone is not sufficient for a diagnosis of heparin-induced thrombocytopenia (HIT), as a positive test result may be seen in patients with the antibody who do not have the clinical syndrome of HIT. This diagnosis must be made in conjunction with clinical features and with other confirmatory tests, such as the HIPA or serotonin release. Anti-PF4 Review SEE BELOW Reviewed by Malorie Bunch MD ([id number]) Performing Laboratory: [facility] [address] [place] [address] Performed By: #### P T #### [address] [address] Basic Panelon 08-04-2018 Creatinine [Mass/Vol] 1.69 mg/dL High 0.51-0.95 [facility] Comment on above: Performed By: #### P T #### [address] [address] Anion gap [Moles/Vol] 9 mmol/L Normal 8-16 [facility] Comment on above: Performed By: #### P T #### [address] [address] CO2 [Moles/Vol] 26 mmol/L Normal 21-32 [facility] Comment on above: Performed By: #### P T #### [address] [address] Urea nitrogen [Mass/Vol] 27 mg/dL High 7-18 [facility] Comment on above: Performed By: #### P T #### [address] [address] Calcium [Mass/Vol] 7.8 mg/dL Low 8.5-10.1 [facility] Comment on above: Performed By: #### P T #### [address] [address] Glucose [Mass/Vol] 89 mg/dL Normal 70-99 [facility] Comment on above: Performed By: #### P T #### [address] [address] Chloride [Moles/Vol] 103 mmol/L Normal 98-[address] [facility] Comment on above: Performed By: #### P T #### [facility] [address] [place] [address] Potassium [Moles/Vol] 4.4 mmol/L Normal 3.5-5.1 [facility] Comment on above: Performed By: #### P T #### [facility] [address] [place] [address] Sodium [Moles/Vol] 134 mmol/L Low 136-145 [facility] Comment on above: Performed By: #### P T #### [facility] [address] [place] [address] C. difficile by PCRon 2018 C. difficile by PCR Test performed at [facility] NEGATIVE for Toxigenic C. difficile Normal [facility] Comment on above: Performed By: #### P T #### [facility] [address] [place] [address] HCG, Qual. Serumon 9 HCG, Qual. Serum Negative Normal Negative [facility] Comment on above: Performed By: #### P T #### [facility] [address] [place] [address] Hemogramon 08-04-2018 Erythrocyte distribution width (RBC) [Ratio] 18.2 % High 11.7-14.4 [facility] Comment on above: Performed By: #### P T #### [facility] [address] [place] [address] Hematocrit (Bld) [Volume fraction] 27.0 % Low 34.1-44.9 [facility] Comment on above: Performed By: #### P T #### [facility] [address] [place] [address] Hemoglobin (Bld) [Mass/Vol] 8.6 g/dL Low 11.2-15.7 [facility] Comment on above: Performed By: #### P T #### [facility] [address] [place] [address] MCH (RBC) [Entitic mass] 29.1 pg Normal 25.6-32.2 [facility] Comment on above: Performed By: #### P T #### [facility] [address] [place] [address] MCHC (RBC) [Mass/Vol] 31.9 % Normal 31.6-34.8 [facility] Comment on above: Performed By: #### P T #### [facility] [address] [place] [address] MCV (RBC) [Entitic vol] 91.2 fL Normal 79.4-94.8 [facility] Comment on above: Performed By: #### P T #### [facility] [address] [place] [address] Platelet mean volume (Bld) [Entitic vol] 12.1 fL Normal 9.4-12.3 [facility] Comment on above: Performed By: #### P T #### [facility] [address] [place] [address] Platelets (Bld) [#/Vol] 117 thou/cmm Low 182-369 [facility] Comment on above: Performed By: #### P T #### [facility] [address] [place] [address] RBC (Bld) [#/Vol] 2.96 mil/cmm Low 3.93-5.22 [facility] Comment on above: Performed By: #### P T #### [facility] [address] [place] [address] RDW SD 59.0 fl High 36.4-46.3 [facility] Comment on above: Performed By: #### P T #### [facility] [address] [place] [address] WBC (Bld) [#/Vol] 12.21 thou/cmm High 3.98-10.04 [facility] Comment on above: Performed By: #### P T #### [facility] [address] [place] [address] Hgbon 08-04-2018 Hemoglobin (Bld) [Mass/Vol] 7.7 g/dL Low 11.2-15.7 [facility] Comment on above: Performed By: #### P T #### [facility] [address] [place], [place] [address] Phosphorus Bloodon 9 Phosphate [Mass/Vol] 1.3 mg/dL Critically low 2.5-4.9 [facility] Comment on above: Performed By: #### P T #### [facility] [address] [place], [place] [address] Platelet Ab/Heparinon 2018 Platelet Ab/Heparin SEE BELOW Normal [facility] Comment on above: Result Comment: Plt Ab/Heparin Indeterminate AB NEGAT This test was developed and its performance characteristics determined by [facility]'s [facility] [place] ([facility]). It has not been cleared or approved by the FDA. [facility] is regulated under CLIA as qualified to perform high complexity testing. This test is used for clinical purposes. It should not be regarded as investigational or for research. Interpretation (NOTE) Performing Pathologist: Dr. Haile Odell MD Interpretation: Abnormal - see comment below. The anti-platelet factor 4 IgG antibody XIOMARA assay result is positive. This is consistent with the presence of anti-PF4/heparin antibodies in the patient's plasma. The heparin-induced platelet aggregation assay result is indeterminate. Taken together, these results are consistent with a heparin-associated platelet antibody and suggest a diagnosis of heparin-induced thrombocytopenia (HIT), if the clinical findings are supportive. Please correlate these laboratory results with clinical findings and medication history. Performing Laboratory: [facility] [address] [place] [address] Performed By: #### P T #### [facility] [address] [place], [place] [address] Triglyceride Bloodon 019 Triglyceride [Mass/Vol] 457 mg/dL High 0-149 [facility] Comment on above: Result Comment: < 20 0 Desirable Result invalid if not a fasting specimen. Performed By: #### P T #### [facility] [address] [place], [place] [address] Activated PTTon 08-03-2018 aPTT Coag (Bld) [Time] 68.6 s High 23.0-32.4 [facility] Comment on above: Result Comment: Unfr actionated Heparin Therapeutic Ranges: Standard Heparin Nomogram: 53 to 78 seconds (anti-Xa level of 0.3 to 0.7 U/mL) Low Dose/ACS Nomogram: 49 to 67 seconds (anti-Xa level of 0.2 to 0.5 U/mL) Stroke Treatment Nomogram: 49 to 67 seconds (anti-Xa level of 0.2 to 0.5 U/mL) Note: The APTT therapeutic range has been determined for the current lot of laboratory APTT reagent in use throughout the [facility]. Performed By: #### P T #### [facility] [address] [place] [address] Basic Panelon 08-03-2018 Creatinine [Mass/Vol] 2.18 mg/dL High 0.51-0.95 [facility] Comment on above: Performed By: #### P T #### [place] [address] Anion gap [Moles/Vol] 8 mmol/L Normal 8-16 [facility] Comment on above: Performed By: #### P T #### [facility] [address] [place] [address] CO2 [Moles/Vol] 27 mmol/L Normal 21-32 [facility] Comment on above: Performed By: #### P T #### [facility] [address] [place], [place] [address] Glucose [Mass/Vol] 136 mg/dL High 70-99 [facility] Comment on above: Performed By: #### P T #### [facility] [address] [place], [place] [address] Urea nitrogen [Mass/Vol] 28 mg/dL High 7-18 [facility] Comment on above: Performed By: #### P T #### [facility] [address] [place], [place] [address] Calcium [Mass/Vol] 8.0 mg/dL Low 8.5-10.1 [facility] Comment on above: Performed By: #### P T #### [place] [address] Chloride [Moles/Vol] 104 mmol/L Normal 98-[address] [facility] Comment on above: Performed By: #### P T #### [facility] [address] [place], [place] [address] Potassium [Moles/Vol] 4.6 mmol/L Normal 3.5-5.1 [facility] Comment on above: Performed By: #### P T #### [facility] [address] [place], [place] [address] Sodium [Moles/Vol] 134 mmol/L Low 136-145 [facility] Comment on above: Performed By: #### P T #### [facility] [address] [place], [place] [address] CMV IgM Abon 08-03-2018 CMV IgM Ab SEE BELOW Normal [facility] Comment on above: Result Comment: CMV IgM, Qual Positive AB NEGAT Presence of detectable CMV IgM antibodies indicates acute infection, reactivation, or persistent IgM production. CMV IgM Antibody 136.0 AU/mL AU/mL values are interpreted as follows: Negative: <30.0 Equivocal: >=30.0 to <35.0 Positive: >=35.0 The magnitude of the measured result is not indicative of the amount of antibody present. Performing Laboratory: [facility] [address] [place] [address] Performed By: #### P T #### [facility] [address] [place] [address] EBV Panelon 08-03-2018 EBV Panel SEE BELOW Normal [facility] Comment on above: Result Comment: EBV VCA IgG, Qual Positive AB NEGAT Specimen is positive for EBV VCA IgG antibody. A positive test result presumes a current or past infection with EBV. Other EBV serology assays such as the EBV VCA IgM should be performed to confirm serologic status, active acute, past or indeterminate infection for EBV-associated infectious mononucleosis. EBV VCA IgG >8.0 AI AI VALUES ARE INTERPRETED FOLLOWS: NEGATIVE SPECIMENS <=0.8 EQUIVOCAL SPECIMENS 0.9 TO 1.0 POSITIVE SPECIMENS >=1.1 Antibody index (AI) values reflect qualitative changes in antibody concentration that cannot be associated with clinical condition or disease state. EBV VCA IgM, Qual Positive AB NEGAT Specimen is positive for EBV VCA IgM antibody. A positive test result presumes a current or reactivated infection with EBV. Other EBV serology assays such as EBV VCA IgG should be performed to confirm serologic status, active acute, past or indeterminate infection for EBV-associated infectious mononucleosis. EBV VCA IgM 1.3 AI AI VALUES ARE INTERPRETED FOLLOWS: NEGATIVE SPECIMENS <=0.8 EQUIVOCAL SPECIMENS 0.9 TO 1.0 POSITIVE SPECIMENS >=1.1 The magnitude of the reported IgM level cannot be correlated to an endpoint titer (or clinical status). EBV EA Ab, Qual Negative NEGAT EBV EA-D IgG antibodies are not detectable. If the result is negative and exposure to Vic-Benavidez virus is suspected, a second sample should be collected and tested no less than one to two weeks later. EBV EA Antibody <0.2 AI AI VALUES ARE INTERPRETED FOLLOWS: NEGATIVE SPECIMENS <=0.8 EQUIVOCAL SPECIMENS 0.9 TO 1.0 POSITIVE SPECIMENS >=1.1 Antibody index(AI) values reflect qualitative changes in antibody concentration that cannot be associated with clinical condition or disease state. EBV NA Ab, Qual Positive AB NEGAT Specimen is positive for EBV NA-1 IgG antibody. A positive test result presumes a current or past infection with EBV. Other EBV serology assays such as the EBV VCA IgM should be performed to confirm serologic status, active acute, past or indeterminate infection for EBV-associated infectious mononucleosis. EBV NA Antibody >8.0 AI AI VALUES ARE INTERPRETED FOLLOWS: NEGATIVE SPECIMENS <=0.8 EQUIVOCAL SPECIMENS 0.9 TO 1.0 POSITIVE SPECIMENS >=1.1 Antibody index(AI) values reflect qualitative changes in antibody concentration that cannot be associated with clinical condition or disease state. EBV Interpretation See below (NOTE) Syndrome EBV VCA EBV VCA EBV EA EBV NA IgM IgG No EBV Neg Neg Neg Neg Acute Infection Pos Pos Pos Pos Past Infection Neg Pos Neg Pos Reactivation Pos or Neg Pos Pos or Neg Pos Note: EBV NA appears last in acute infection Performing Laboratory: [facility] [employer] [address] [place] [address] Performed By: #### P T #### [address] [address] Hemogramon 08-03-2018 Erythrocyte distribution width (RBC) [Ratio] 18.1 % High 11.7-14.4 [facility] Comment on above: Performed By: #### P T #### [address] [address] Hematocrit (Bld) [Volume fraction] 27.2 % Low 34.1-44.9 [facility] Comment on above: Performed By: #### P T #### [facility] [address] [place] [address] Hemoglobin (Bld) [Mass/Vol] 8.5 g/dL Low 11.2-15.7 [facility] Comment on above: Performed By: #### P T #### [facility] [address] [place] [address] MCH (RBC) [Entitic mass] 28.7 pg Normal 25.6-32.2 [facility] Comment on above: Performed By: #### P T #### [facility] [address] [place] [address] MCHC (RBC) [Mass/Vol] 31.3 % Low 31.6-34.8 [facility] Comment on above: Performed By: #### P T #### [place] [address] MCV (RBC) [Entitic vol] 91.9 fL Normal 79.4-94.8 [facility] Comment on above: Performed By: #### P T #### [place] [address] Platelet mean volume (Bld) [Entitic vol] 12.7 fL High 9.4-12.3 [facility] Comment on above: Performed By: #### P T #### [place] [address] Platelets (Bld) [#/Vol] 95 thou/cmm Low 182-369 [facility] Comment on above: Result Comment: ea r scanned tech agrees with platelet count Performed By: #### P T #### [place] [address] RBC (Bld) [#/Vol] 2.96 mil/cmm Low 3.93-5.22 [facility] Comment on above: Performed By: #### P T #### [place] [address] RDW SD 59.0 fl High 36.4-46.3 [facility] Comment on above: Performed By: #### P T #### [facility] [address] [place], [place] [address] WBC (Bld) [#/Vol] 10.15 thou/cmm High 3.98-10.04 [facility] Comment on above: Performed By: #### P T #### [facility] [address] [place], [place] [address] Hgbon 08-03-2018 Hemoglobin (Bld) [Mass/Vol] 8.5 g/dL Low 11.2-15.7 [facility] Comment on above: Performed By: #### P T #### [facility] [address] [place], [place] [address] Parvovirus B19 Abson 019 Parvovirus B19 Abs SEE BELOW Normal [facility] Comment on above: Result Comment: Parv o B19 IgG, Qual Positive AB NEGAT The presence of IgG antibodies to B19 virus is detected. Parvovirus B19 IgG 6.79 Index values are interpreted as follows: Negative specimens <0.9 Equivocal specimens 0.9 to 1.1 Positive specimens >1.1 Results were obtained with the [employer] Parvovirus B19 IgG Enzyme Immunoassay. Values obtained with different manufacturers' assay methods may not be used interchangeably. The magnitude of the reported IgG level cannot be correlated to an endpoint titer. Parvo B19 IgM, Qual Negative NEGAT Absence of any detectable IgM antibodies to the B19 virus. Parvovirus B19 IgM 0.44 Index values are interpreted as follows: Negative specimens <0.9 Equivocal specimens 0.9 to 1.1 Positive specimens >1.1 Results were obtained with the [employer] Parvovirus B19 IgM Enzyme Immunoassay. Values obtained with different manufacturers' assay methods may not be used interchangeably. The magnitude of the reported IgM level cannot be correlated to an endpoint titer. Performing Laboratory: [facility] [employer] [address] [place] [address] Performed By: #### P T #### [facility] [address] [place], [place] [address] Phosphorus Bloodon 9 Phosphate [Mass/Vol] 2.4 mg/dL Low 2.5-4.[address] [facility] Comment on above: Performed By: #### P T #### [facility] [address] [place] [address] Activated PTTon 08-02-2018 aPTT Coag (Bld) [Time] 63.3 s High 23.0-32.4 [facility] Comment on above: Result Comment: Unfr actionated Heparin Therapeutic Ranges: Standard Heparin Nomogram: 53 to 78 seconds (anti-Xa level of 0.3 to 0.7 U/mL) Low Dose/ACS Nomogram: 49 to 67 seconds (anti-Xa level of 0.2 to 0.5 U/mL) Stroke Treatment Nomogram: 49 to 67 seconds (anti-Xa level of 0.2 to 0.5 U/mL) Note: The APTT therapeutic range has been determined for the current lot of laboratory APTT reagent in use throughout the [facility]. Performed By: #### P T #### [facility] [address] [place] [address] aPTT Coag (Bld) [Time] 64.9 s High 23.0-32.4 [facility] Comment on above: Result Comment: Unfr actionated Heparin Therapeutic Ranges: Standard Heparin Nomogram: 53 to 78 seconds (anti-Xa level of 0.3 to 0.7 U/mL) Low Dose/ACS Nomogram: 49 to 67 seconds (anti-Xa level of 0.2 to 0.5 U/mL) Stroke Treatment Nomogram: 49 to 67 seconds (anti-Xa level of 0.2 to 0.5 U/mL) Note: The APTT therapeutic range has been determined for the current lot of laboratory APTT reagent in use throughout the [facility]. Performed By: #### P T #### [facility] [address] [place] [address] Basic Panelon 08-02-2018 Creatinine [Mass/Vol] 2.79 mg/dL High 0.51-0.95 [facility] Comment on above: Performed By: #### P T #### [facility] [address] [place] [address] Anion gap [Moles/Vol] 10 mmol/L Normal 8-16 [facility] Comment on above: Performed By: #### P T #### [facility] [address] [place], [place] [address] Calcium [Mass/Vol] 7.6 mg/dL Low 8.5-10.1 [facility] Comment on above: Performed By: #### P T #### [facility] [address] [place], [place] [address] CO2 [Moles/Vol] 25 mmol/L Normal 21-32 [facility] Comment on above: Performed By: #### P T #### [facility] [address] [place], [place] [address] Glucose [Mass/Vol] 104 mg/dL High 70-99 [facility] Comment on above: Performed By: #### P T #### [facility] [address] [place], [place] [address] Urea nitrogen [Mass/Vol] 27 mg/dL High 7-18 [facility] Comment on above: Performed By: #### P T #### [facility] [address] [place], [place] [address] Chloride [Moles/Vol] 103 mmol/L Normal 98-[address] [facility] Comment on above: Performed By: #### P T #### [facility] [address] [place], [place] [address] Potassium [Moles/Vol] 4.6 mmol/L Normal 3.5-5.1 [facility] Comment on above: Performed By: #### P T #### [facility] [address] [place], [place] [address] Sodium [Moles/Vol] 133 mmol/L Low 136-145 [facility] Comment on above: Performed By: #### P T #### [facility] [address] [place], [place] [address] Blood Gas Arterialon 019 Base Excess -0.8 mmol/L Normal -3.0-3.0 [facility] Comment on above: Performed By: #### P T #### [facility] [address] [place], [place] [address] HCO3 (Bld) [Moles/Vol] 24.2 mmol/L Normal 21.0-28.0 [facility] Comment on above: Performed By: #### P T #### [facility] [address] [place], [place] [address] O2% Sat Arterial 93.6 % Low 96.0-100.0 [facility] Comment on above: Performed By: #### P T #### [facility] [address] [place], [place] [address] PCO2 Arterial 44.4 mm Hg Normal 35.0-45.0 [facility] Comment on above: Performed By: #### P T #### [facility] [address] [place], [place] [address] pH Arterial 7.356 Normal 7.350-7.450 [facility] Comment on above: Performed By: #### P T #### [facility] [address] [place], [place] [address] PO2 Arterial 68.2 mm Hg Low 83.0-108.0 [facility] Comment on above: Performed By: #### P T #### [facility] [address] [place], [place] [address] FIO2 40 % Normal [facility] Comment on above: Performed By: #### P T #### [facility] [address] [place], [place] [address] FIO2 50 % Normal [facility] Comment on above: Performed By: #### P T #### [facility] [address] [place], [place] [address] Base Excess -1.6 mmol/L Normal -3.0-3.0 [facility] Comment on above: Performed By: #### P T #### [facility] [address] [place], [place] [address] HCO3 (Bld) [Moles/Vol] 24.3 mmol/L Normal 21.0-28.0 [facility] Comment on above: Performed By: #### P T #### [facility] [address] [place], [place] [address] O2% Sat Arterial 98.0 % Normal 96.0-100.0 [facility] Comment on above: Performed By: #### P T #### [facility] [address] [place] [address] PCO2 Arterial 53.1 mm Hg High 35.0-45.0 [facility] Comment on above: Performed By: #### P T #### [facility] [address] [place] [id number] pH Arterial 7.290 Low 7.350-7.450 [facility] Comment on above: Performed By: #### P T #### [facility] [address] [place] [address] PO2 Arterial 143.0 mm Hg High 83.0-108.0 [facility] Comment on above: Performed By: #### P T #### [facility] [address] [place] [address] Bone Marrow Examon 9 Bone Marrow Exam Test performed at [place] [address] [facility] REQUEST[facility]: JESSICA ACOSTA M.D. COPY TO: TUMOR REGISTRY; ANIMAL IMPERSONATOR SUPPLEMENTAL INFORMATION A: PER OUTSIDE REPORT FROM [facility], CYTOGENETIC STUDIES SHOW A NORMAL FEMALE KARYOTYPE: [id number]]. SEE OUTSIDE REPORT FOR FULL DETAILS. ADALID CLOUD M.D.,PATHOLOGIST (Electronic signature on file) Signed out: 08/12/2018 07:45 DIAGNOSIS: A&B) BONE MARROW BIOPSY, ASPIRATE, CLOT SECTION AND PERIPHERAL BLOOD - HYPERCELLULAR MARROW WITH TRILINEAGE HEMATOPOIESIS SHOWING ERYTHROID HYPERPLASIA. NEGATIVE FOR DYSPLASIA AND MALIGNANCY (SEE NOTE). DECREASED STORAGE IRON. 1+ RETICULIN FIBROSIS. PERIPHERAL BLOOD WITH NORMOCYTIC NORMOCHROMIC ANEMIA, THROMBOCYTOPENIA, ABSOLUTE MONOCYTOSIS AND ABSOLUTE LYMPHOCYTOSIS. PER OUTSIDE REPORT FROM [facility], FLOW CYTOMETRY STUDIES SHOW NO EVIDENCE OF INVOLVEMENT BY A LYMPHOPROLIFERATIVE DISORDER, PLASMA CELL NEOPLASM OR ABNORMAL BLAST POPULATION. SEE OUTSIDE REPORT FOR FULL DETAILS. NOTE: The clinical concern for hemophagocytic lymphohistiocytosis (HLH) is noted. There are very rare phagocytic cells with ingested material, but not present to a degree that would appear supportive of HLH. Clinical correlation and correlation with pending cytogenetics studies is recommended. The case was reviewed by Dr. Luisana Miner who agrees with the diagnosis. GROSS DESCRIPTION: A) Core 0.9 cm B) Clot KVB:hlm OPERATIVE PROCEDURE: Bone marrow biopsy CLINICAL INFORMATION: Patient is a 32 year old female with history of hypertension, morbid obesity and hyperlipidemia who presented to [facility] emergency department with shortness of breath, fatigue and confusion and ultimately diagnosed with sepsis secondary to hospital acquired pneumonia with cultures positive for MSSA and pseudomonas. 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 EBV VCA IgM and CMV IgM serologies are positive. Ferritin is elevated at 1,049 ng/mL (reference range: 8-252 ng/mL). CBC: WBC 13.6, RBC 3.04, hemoglobin 8.7, hematocrit 28, MCV 92.1, MCH 28.9, MCHC 31.4, platelets 60, neutrophils #3.81, immature granulocytes #1.4, lymphocytes #8.02, monocytes #1.36, eosinophils #0.27, basophils #0. MICROSCOPIC DESCRIPTION: Ramírez stained peripheral blood smear shows normocytic normochromic anemia, thrombocytopenia, absolute monocytosis and absolute lymphocytosis. There are few smudge cells and reactive lymphocytes identified. There is mild polychromasia. No abnormal circulating cells or blasts are seen. Ramírez stained aspirate smears are cellular with spicules showing trilineage hematopoiesis and the following 500 cell count differential: granulocytes 18%, erythroids 55.6%, lymphocytes 19%, eosinophils 2.8%, monocytes 1.8%, plasma cells 2.6% and blasts 0.2%. Erythroid and granulocytic lineages show full maturation without dysplasia. Megakaryocytes appear normal in morphology. There is erythroid hyperplasia. H&E stained, decalcified core biopsy is small and appears hypercellular for age (approximately 80-85% cellularity). No atypical or malignant infiltrates are seen. No lymphoid aggregates or granulomas are seen. Erythroid hyperplasia is appreciated. Megakaryocytes appear normal in number. There is abnormal localization of immature precursors. The H&E stained clot section shows few particles with similar findings. Iron stain of core biopsy shows no definite stainable iron. Iron stain of aspirate smear shows trace stainable iron and no ring sideroblasts. Reticulin stain of core biopsy shows 1+ reticulin fibrosis (scale: 0-4+). PAS stain of core biopsy shows findings similar to the H&E stained biopsy, highlighting megakaryocytes and granulocytes. MARIAA/alfredo CLOUD M.D.,PATHOLOGIST (Electronic signature on file) Signed out: 08/06/2018 14:09 PRINTED: 08/12/2018 Page 1 of 1 Normal [facility] Comment on above: Performed By: #### P T #### [facility] [address] [place] [address] Chromosome Karyo Bone Marrow on 08-02-2018 Chromosome Karyo Bn Marrow Karyo Bn Marrow Normal [facility] Comment on above: Performed By: #### P T #### [place] [address] Lab Name/Address See below Normal [facility] Comment on above: Result Comment: [place] [address] Performed By: #### P T #### [place] [address] Flow Cytometry Leukemia/Lymp homaon 08-02-2018 Flow Cytometry Leuk/Lymp See Below Normal [facility] Comment on above: Result Comment: Flow Cytometry Leukemia/Lymphoma Bone Marrow Performed By: #### P T #### [place] [address] Lab Name/Address See below Normal [facility] Comment on above: Result Comment: [place] [address] Performed By: #### P T #### [place] [address] Hemogram/Diffon 08-02-2018 Abs Neut (ANC) 2.00 thou/cmm Normal 1.56-6.13 [facility] Comment on above: Performed By: #### P T #### [place] [address] Abs. Baso 0.25 thou/cmm High 0.01-0.08 [facility] Comment on above: Performed By: #### P T #### [place] [address] Abs. [place] 0.50 thou/cmm Normal 0.27-0.70 [facility] Comment on above: Performed By: #### P T #### [facility] [address] [place], [place] [address] Atypical Lymph 1.0 % Normal [facility] Comment on above: Performed By: #### P T #### [facility] [address] [place], [place] [address] Basophils/100 WBC (Bld) 2.0 % Normal [facility] Comment on above: Performed By: #### P T #### [facility] [address] [place], [place] [address] Blast and BI # 0.63 thou/cmm Normal [facility] Comment on above: Performed By: #### P T #### [facility] [address] [place], [place] [address] Blast Cells 5.0 % Normal [facility] Comment on above: Performed By: #### P T #### [facility] [address] [place] [address] Eosinophils (Bld) [#/Vol] 0.25 thou/cmm Normal 0.00-0.31 [facility] Comment on above: Performed By: #### P T #### [facility] [address] [place], [place] [address] Eosinophils/100 WBC (Bld) 2.0 % Normal [facility] Comment on above: Performed By: #### P T #### [facility] [address] [place], [place] [address] Erythrocyte distribution width (RBC) [Ratio] 18.6 % High 11.7-14.4 [facility] Comment on above: Performed By: #### P T #### [facility] [address] [place], [place] [address] Hematocrit (Bld) [Volume fraction] 25.0 % Low 34.1-44.9 [facility] Comment on above: Performed By: #### P T #### [facility] [address] [place], [place] [address] Hemoglobin (Bld) [Mass/Vol] 7.8 g/dL Low 11.2-15.7 [facility] Comment on above: Performed By: #### P T #### [facility] [address] [place], [place] [address] Lymphocytes (Bld) [#/Vol] 8.90 thou/cmm High 1.18-3.74 [facility] Comment on above: Performed By: #### P T #### [facility] [address] [place], [place] [address] Lymphocytes/100 WBC (Bld) 70.0 % Normal [facility] Comment on above: Performed By: #### P T #### [facility] [address] [place], [place] [address] MCH (RBC) [Entitic mass] 28.8 pg Normal 25.6-32.2 [facility] Comment on above: Performed By: #### P T #### [facility] [address] [place], [place] [address] MCHC (RBC) [Mass/Vol] 31.2 % Low 31.6-34.8 [facility] Comment on above: Performed By: #### P T #### [facility] [address] [place], [place] [address] MCV (RBC) [Entitic vol] 92.3 fL Normal 79.4-94.8 [facility] Comment on above: Performed By: #### P T #### [facility] [address] [place], [place] [address] Monocytes/100 WBC (Bld) 4.0 % Normal [facility] Comment on above: Performed By: #### P T #### [facility] [address] [place], [place] [address] Platelet mean volume (Bld) [Entitic vol] 13.2 fL High 9.4-12.3 [facility] Comment on above: Performed By: #### P T #### [facility] [address] [place], [place] [address] Platelets (Bld) [#/Vol] 74 thou/cmm Low 182-369 [facility] Comment on above: Performed By: #### P T #### [facility] [address] [place], [place] [address] RBC (Bld) [#/Vol] 2.71 mil/cmm Low 3.93-5.22 [facility] Comment on above: Performed By: #### P T #### [facility] [address] [place] [address] RBC morphology finding Nom (Bld) Normal Normal [facility] Comment on above: Performed By: #### P T #### [facility] [address] [place] [address] RDW SD 59.8 fl High 36.4-46.3 [facility] Comment on above: Performed By: #### P T #### [facility] [address] [place] [address] Seg Neutrophil 16.0 % Normal [facility] Comment on above: Performed By: #### P T #### [facility] [address] [place] [address] WBC (Bld) [#/Vol] 12.53 thou/cmm High 3.98-10.04 [facility] Comment on above: Performed By: #### P T #### [facility] [address] [place] [address] Hgbon 08-02-2018 Hemoglobin (Bld) [Mass/Vol] 8.7 g/dL Low 11.2-15.7 [facility] Comment on above: Performed By: #### P T #### [facility] [address] [place] [address] Phosphorus Bloodon 9 Phosphate [Mass/Vol] 2.2 mg/dL Low 2.5-4.[address] [facility] Comment on above: Performed By: #### P T #### [facility] [address] [place] [address] Prealbuminon 08-02-2018 Prealbumin [Mass/Vol] 5.8 mg/dL Low 20.0-40.0 [facility] Comment on above: Performed By: #### P T #### [facility] [address] [place] [address] Vancomycin,Randomon 08-03-19 19 INR Coag (Bld) [Relative time] 17.4 mg/L Normal [facility] Comment on above: Result Comment: Trou gh 10.0-20.0 mg/L Peak 18.0-40.0 mg/L Performed By: #### P T #### [facility] [address] [place], [place] [address] Activated PTTon 08-01-2018 aPTT Coag (Bld) [Time] 75.8 s High 23.0-32.4 [facility] Comment on above: Result Comment: Unfr actionated Heparin Therapeutic Ranges: Standard Heparin Nomogram: 53 to 78 seconds (anti-Xa level of 0.3 to 0.7 U/mL) Low Dose/ACS Nomogram: 49 to 67 seconds (anti-Xa level of 0.2 to 0.5 U/mL) Stroke Treatment Nomogram: 49 to 67 seconds (anti-Xa level of 0.2 to 0.5 U/mL) Note: The APTT therapeutic range has been determined for the current lot of laboratory APTT reagent in use throughout the [facility]. Performed By: #### P T #### [facility] [address] [place], [place] [address] aPTT Coag (Bld) [Time] 74.3 s High 23.0-32.4 [facility] Comment on above: Result Comment: Unfr actionated Heparin Therapeutic Ranges: Standard Heparin Nomogram: 53 to 78 seconds (anti-Xa level of 0.3 to 0.7 U/mL) Low Dose/ACS Nomogram: 49 to 67 seconds (anti-Xa level of 0.2 to 0.5 U/mL) Stroke Treatment Nomogram: 49 to 67 seconds (anti-Xa level of 0.2 to 0.5 U/mL) Note: The APTT therapeutic range has been determined for the current lot of laboratory APTT reagent in use throughout the [facility]. Performed By: #### P T #### [facility] [address] [place], [place] [address] aPTT Coag (Bld) [Time] 56.1 s High 23.0-32.4 [facility] Comment on above: Result Comment: Unfr actionated Heparin Therapeutic Ranges: Standard Heparin Nomogram: 53 to 78 seconds (anti-Xa level of 0.3 to 0.7 U/mL) Low Dose/ACS Nomogram: 49 to 67 seconds (anti-Xa level of 0.2 to 0.5 U/mL) Stroke Treatment Nomogram: 49 to 67 seconds (anti-Xa level of 0.2 to 0.5 U/mL) Note: The APTT therapeutic range has been determined for the current lot of laboratory APTT reagent in use throughout the [facility]. Performed By: #### P T #### [place] [address] aPTT Coag (Bld) [Time] 58.0 s High 23.0-32.4 [facility] Comment on above: Result Comment: Unfr actionated Heparin Therapeutic Ranges: Standard Heparin Nomogram: 53 to 78 seconds (anti-Xa level of 0.3 to 0.7 U/mL) Low Dose/ACS Nomogram: 49 to 67 seconds (anti-Xa level of 0.2 to 0.5 U/mL) Stroke Treatment Nomogram: 49 to 67 seconds (anti-Xa level of 0.2 to 0.5 U/mL) Note: The APTT therapeutic range has been determined for the current lot of laboratory APTT reagent in use throughout the [facility]. Performed By: #### P T #### [place] [address] Basic Panelon 08-01-2018 Creatinine [Mass/Vol] 3.63 mg/dL High 0.51-0.95 [facility] Comment on above: Performed By: #### P T #### [place] [address] Glucose [Mass/Vol] 82 mg/dL Normal 70-99 [facility] Comment on above: Performed By: #### P T #### [place] [address] Urea nitrogen [Mass/Vol] 29 mg/dL High 7-18 [facility] Comment on above: Performed By: #### P T #### [place] [address] Anion gap [Moles/Vol] 11 mmol/L Normal 8-16 [facility] Comment on above: Performed By: #### P T #### [facility] [address] [place], [place] [address] Calcium [Mass/Vol] 7.4 mg/dL Low 8.5-10.1 [facility] Comment on above: Performed By: #### P T #### [facility] [address] [place], [place] [address] CO2 [Moles/Vol] 24 mmol/L Normal 21-32 [facility] Comment on above: Performed By: #### P T #### [facility] [address] [place] [address] Chloride [Moles/Vol] 102 mmol/L Normal 98-[address] [facility] Comment on above: Performed By: #### P T #### [facility] [address] [place] [address] Potassium [Moles/Vol] 5.4 mmol/L High 3.5-5.1 [facility] Comment on above: Performed By: #### P T #### [facility] [address] [place], [place] [address] Sodium [Moles/Vol] 132 mmol/L Low 136-145 [facility] Comment on above: Performed By: #### P T #### [facility] [address] [place], [place] [address] Blood Gas Arterialon 019 Base Excess -2.0 mmol/L Normal -3.0-3.0 [facility] Comment on above: Performed By: #### P T #### [facility] [address] [place], [place] [address] FIO2 50 % Normal [facility] Comment on above: Performed By: #### P T #### [facility] [address] [place], [place] [address] HCO3 (Bld) [Moles/Vol] 24.5 mmol/L Normal 21.0-28.0 [facility] Comment on above: Performed By: #### P T #### [facility] [address] [place], [place] [address] O2% Sat Arterial 95.9 % Low 96.0-100.0 [facility] Comment on above: Performed By: #### P T #### [facility] [address] [place], [place] [address] PCO2 Arterial 59.0 mm Hg High 35.0-45.0 [facility] Comment on above: Performed By: #### P T #### [facility] [address] [place], [place] [address] pH Arterial 7.253 Low 7.350-7.450 [facility] Comment on above: Performed By: #### P T #### [facility] [address] [place], [place] [address] PO2 Arterial 94.4 mm Hg Normal 83.0-108.0 [facility] Comment on above: Performed By: #### P T #### [facility] [address] [place], [place] [address] FIO2 50 % Normal [facility] Comment on above: Performed By: #### P T #### [facility] [address] [place], [place] [address] Base Excess -2.2 mmol/L Normal -3.0-3.0 [facility] Comment on above: Performed By: #### P T #### [facility] [address] [place], [place] [address] HCO3 (Bld) [Moles/Vol] 23.9 mmol/L Normal 21.0-28.0 [facility] Comment on above: Performed By: #### P T #### [facility] [address] [place], [place] [address] O2% Sat Arterial 98.3 % Normal 96.0-100.0 [facility] Comment on above: Performed By: #### P T #### [facility] [address] [place], [place] [address] PCO2 Arterial 51.6 mm Hg High 35.0-45.0 [facility] Comment on above: Performed By: #### P T #### [facility] [address] [place], [place] [address] pH Arterial 7.289 Low 7.350-7.450 [facility] Comment on above: Performed By: #### P T #### [facility] [address] [place] [address] PO2 Arterial 120.0 mm Hg High 83.0-108.0 [facility] Comment on above: Performed By: #### P T #### [facility] [address] [place] [address] Base Excess -2.8 mmol/L Normal -3.0-3.0 [facility] Comment on above: Performed By: #### P T #### [facility] [address] [place] [address] FIO2 Value Not Given Normal [facility] Comment on above: Performed By: #### P T #### [facility] [address] [place] [address] HCO3 (Bld) [Moles/Vol] 21.8 mmol/L Normal 21.0-28.0 [facility] Comment on above: Performed By: #### P T #### [place] [address] O2% Sat Arterial 99.1 % Normal 96.0-100.0 [facility] Comment on above: Performed By: #### P T #### [facility] [address] [place] [address] PCO2 Arterial 41.5 mm Hg Normal 35.0-45.0 [facility] Comment on above: Performed By: #### P T #### [facility] [address] [place] [address] pH Arterial 7.345 Low 7.350-7.450 [facility] Comment on above: Performed By: #### P T #### [facility] [address] [place] [address] PO2 Arterial 144.0 mm Hg High 83.0-108.0 [facility] Comment on above: Performed By: #### P T #### [facility] [address] [place] [address] HIV Screenon 08-01-2018 HIV Screen Nonreactive Normal Nonreactive [facility] Comment on above: Performed By: #### P T #### [place] [address] Hemogramon 08-01-2018 Erythrocyte distribution width (RBC) [Ratio] 18.4 % High 11.7-14.4 [facility] Comment on above: Performed By: #### P T #### [facility] [address] [place] [address] Hematocrit (Bld) [Volume fraction] 31.0 % Low 34.1-44.9 [facility] Comment on above: Performed By: #### P T #### [facility] [address] [place] [address] MCH (RBC) [Entitic mass] 28.9 pg Normal 25.6-32.2 [facility] Comment on above: Performed By: #### P T #### [facility] [address] [place] [address] MCHC (RBC) [Mass/Vol] 31.0 % Low 31.6-34.8 [facility] Comment on above: Performed By: #### P T #### [facility] [address] [place] [address] MCV (RBC) [Entitic vol] 93.4 fL Normal 79.4-94.8 [facility] Comment on above: Performed By: #### P T #### [facility] [address] [place] [address] Nucleated RBC (Bld) [#/Vol] 0.02 thou/cmm High 0.00-0.01 [facility] Comment on above: Performed By: #### P T #### [facility] [address] [place] [id number] Nucleated RBC/100 WBC (Bld) [Ratio] 0.1 % Normal 0.0-0.2 [facility] Comment on above: Performed By: #### P T #### [facility] [address] [place] [id number] Platelet mean volume (Bld) [Entitic vol] 13.7 fL High 9.4-12.3 [facility] Comment on above: Performed By: #### P T #### [facility] [address] [place] [id number] Platelets (Bld) [#/Vol] see below Normal 182-369 [facility] Comment on above: Result Comment: Plat elets are clumped but appear to be decreased on smear Performed By: #### P T #### [facility] [address] [place] [address] RBC (Bld) [#/Vol] 3.32 mil/cmm Low 3.93-5.22 [facility] Comment on above: Performed By: #### P T #### [facility] [address] [place] [address] RDW SD 58.8 fl High 36.4-46.3 [facility] Comment on above: Performed By: #### P T #### [facility] [address] [place] [address] WBC (Bld) [#/Vol] 16.29 thou/cmm High 3.98-10.04 [facility] Comment on above: Performed By: #### P T #### [place] [address] Hemoglobin (Bld) [Mass/Vol] 9.7 g/dL Low 11.2-15.7 [facility] Comment on above: Performed By: #### P T #### [place] [address] Hgbon 08-01-2018 Hemoglobin (Bld) [Mass/Vol] 8.9 g/dL Low 11.2-15.7 [facility] Comment on above: Performed By: #### P T #### [place] [address] Hemoglobin (Bld) [Mass/Vol] 9.7 g/dL Low 11.2-15.7 [facility] Comment on above: Performed By: #### P T #### [place] [address] Lactic Acidon 08-01-2018 Lactate [Moles/Vol] 0.4 mmol/L Normal 0.4-2.0 [facility] Comment on above: Performed By: #### P T #### [place] [address] Phosphorus Bloodon 9 Phosphate [Mass/Vol] 3.7 mg/dL Normal 2.5-4.[address] [facility] Comment on above: Performed By: #### P T #### [facility] [address] [place], [place] [address] Plateleton 08-01-2018 Platelets (Bld) [#/Vol] 48 thou/cmm Critically low 182-369 [facility] Comment on above: Result Comment: Repe ated AND verified Performed By: #### P T #### [facility] [address] [place] [address] Vancomycin,Randomon 08-02-19 19 INR Coag (Bld) [Relative time] 17.6 mg/L Normal [facility] Comment on above: Result Comment: Trou gh 10.0-20.0 mg/L Peak 18.0-40.0 mg/L Performed By: #### P T #### [place] [address] HUEY by IFA Screenon 08-01-19 19 HUEY by IFA Screen SEE BELOW Normal [facility] Comment on above: Result Comment: HUEY Negative NEGAT Normal range : negative at <1:80 serum dilution. Approximately 6% of patients with connective tissue diseases with low positive EIA values are negative by IFA. Recommend follow-up with specific antinuclear antibodies if clinically indicated. HUEY Titer Negative NEGAT Normal range : negative at <1:80 serum dilution. HUEY Pattern SEE BELOW Not applicable for negative result. Performing Laboratory: [facility] [employer] [place] [address] Performed By: #### P T #### [facility] [address] [place] [address] ANCA Screenon 07-31-2018 ANCA Screen SEE BELOW Normal [facility] Comment on above: Result Comment: C-AN CA Fluorescence Negative NEGAT P-ANCA Fluorescence Negative NEGAT Proteinase-3 Ab SEE BELOW <1.0 AI Test not performed on samples negative by immunofluorescence. Myeloperoxidase Ab SEE BELOW <1.0 AI Test not performed on samples negative by immunofluorescence. ANCA Interpretation SEE BELOW Negative for C-ANCA and P-ANCA by indirect immunofluorescence. Staff Review SEE BELOW Staff review not performed on samples negative by immunofluorescence. Performing Laboratory: [facility] [address] [place] [address] Performed By: #### P T #### [facility] [address] [place], [place] [address] Activated PTTon 07-31-2018 aPTT Coag (Bld) [Time] 62.1 s High 23.0-32.4 [facility] Comment on above: Result Comment: Unfr actionated Heparin Therapeutic Ranges: Standard Heparin Nomogram: 53 to 78 seconds (anti-Xa level of 0.3 to 0.7 U/mL) Low Dose/ACS Nomogram: 49 to 67 seconds (anti-Xa level of 0.2 to 0.5 U/mL) Stroke Treatment Nomogram: 49 to 67 seconds (anti-Xa level of 0.2 to 0.5 U/mL) Note: The APTT therapeutic range has been determined for the current lot of laboratory APTT reagent in use throughout the [facility]. Performed By: #### P T #### [address] [address] aPTT Coag (Bld) [Time] 62.4 s High 23.0-32.4 [facility] Comment on above: Result Comment: Unfr actionated Heparin Therapeutic Ranges: Standard Heparin Nomogram: 53 to 78 seconds (anti-Xa level of 0.3 to 0.7 U/mL) Low Dose/ACS Nomogram: 49 to 67 seconds (anti-Xa level of 0.2 to 0.5 U/mL) Stroke Treatment Nomogram: 49 to 67 seconds (anti-Xa level of 0.2 to 0.5 U/mL) Note: The APTT therapeutic range has been determined for the current lot of laboratory APTT reagent in use throughout the [facility]. Performed By: #### C BCD1 #### [facility] [address] [place], [place] [address] aPTT Coag (Bld) [Time] 57.9 s High 23.0-32.4 [facility] Comment on above: Result Comment: Unfr actionated Heparin Therapeutic Ranges: Standard Heparin Nomogram: 53 to 78 seconds (anti-Xa level of 0.3 to 0.7 U/mL) Low Dose/ACS Nomogram: 49 to 67 seconds (anti-Xa level of 0.2 to 0.5 U/mL) Stroke Treatment Nomogram: 49 to 67 seconds (anti-Xa level of 0.2 to 0.5 U/mL) Note: The APTT therapeutic range has been determined for the current lot of laboratory APTT reagent in use throughout the [facility]. Performed By: #### C BCD1 #### [place] [address] aPTT Coag (Bld) [Time] 50.3 s High 23.0-32.4 [facility] Comment on above: Result Comment: Unfr actionated Heparin Therapeutic Ranges: Standard Heparin Nomogram: 53 to 78 seconds (anti-Xa level of 0.3 to 0.7 U/mL) Low Dose/ACS Nomogram: 49 to 67 seconds (anti-Xa level of 0.2 to 0.5 U/mL) Stroke Treatment Nomogram: 49 to 67 seconds (anti-Xa level of 0.2 to 0.5 U/mL) Note: The APTT therapeutic range has been determined for the current lot of laboratory APTT reagent in use throughout the [facility]. Performed By: #### C BCD1 #### [place] [address] Basic Panelon 07-31-2018 Creatinine [Mass/Vol] 4.70 mg/dL High 0.51-0.95 [facility] Comment on above: Performed By: #### C BCD1 #### [place] [address] Anion gap [Moles/Vol] 12 mmol/L Normal 8-16 [facility] Comment on above: Performed By: #### C BCD1 #### [place] [address] CO2 [Moles/Vol] 23 mmol/L Normal 21-32 [facility] Comment on above: Performed By: #### C BCD1 #### [place] [address] Calcium [Mass/Vol] 7.3 mg/dL Low 8.5-10.1 [facility] Comment on above: Performed By: #### C BCD1 #### [address] [place], [place] [address] Glucose [Mass/Vol] 120 mg/dL High 70-99 [facility] Comment on above: Performed By: #### C BCD1 #### [facility] [address] [place], [place] [address] Urea nitrogen [Mass/Vol] 34 mg/dL High 7-18 [facility] Comment on above: Performed By: #### C BCD1 #### [facility] [address] [place], [place] [address] Chloride [Moles/Vol] 102 mmol/L Normal 98-[address] [facility] Comment on above: Performed By: #### C BCD1 #### [facility] [address] [place], [place] [address] Potassium [Moles/Vol] 4.3 mmol/L Normal 3.5-5.1 [facility] Comment on above: Performed By: #### C BCD1 #### [facility] [address] [place], [place] [address] Sodium [Moles/Vol] 133 mmol/L Low 136-145 [facility] Comment on above: Performed By: #### C BCD1 #### [facility] [address] [place], [place] [address] Blood Gas Arterialon 019 FIO2 45 % Normal [facility] Comment on above: Performed By: #### C BCD1 #### [facility] [address] [place], [place] [address] Base Excess -3.3 mmol/L Low -3.0-3.0 [facility] Comment on above: Performed By: #### C BCD1 #### [facility] [address] [place], [place] [address] HCO3 (Bld) [Moles/Vol] 22.3 mmol/L Normal 21.0-28.0 [facility] Comment on above: Performed By: #### C BCD1 #### [facility] [address] [place], [place] [address] O2% Sat Arterial 97.9 % Normal 96.0-100.0 [facility] Comment on above: Performed By: #### C BCD1 #### [facility] [address] [place], [place] [address] PCO2 Arterial 49.7 mm Hg High 35.0-45.0 [facility] Comment on above: Performed By: #### C BCD1 #### [facility] [address] [place], [place] [address] pH Arterial 7.282 Low 7.350-7.450 [facility] Comment on above: Performed By: #### C BCD1 #### [facility] [address] [place] [address] PO2 Arterial 115.0 mm Hg High 83.0-108.0 [facility] Comment on above: Performed By: #### C BCD1 #### [facility] [address] [place] [address] Glom. Bas. Mem Ab IgGon 07-21 Glom. Bas. Mem Ab IgG SEE BELOW Normal [facility] Comment on above: Result Comment: GBM Ab, IgG (Bead) 0 Reference range: 0 to 19 Unit: AU/mL (NOTE) INTERPRETIVE INFORMATION: GBM Ab, IgG by Multiplex Bead Assay 19 AU/mL or Less ......... Negative 20-25 AU/mL .............. Equivocal 26 AU/mL or Greater ...... Positive The presence of anti-glomerular basement membrane (GBM) antibodies by Multiplex Bead Assay may aid in the diagnosis of Goodpasture syndrome. False positive results may occur due to reactivity against other chains of type IV collagen. If Multiplex Bead Assay is negative but there is a strong suspicion for disease, renal biopsy may be indicated. A renal biopsy may also be essential in suspected Goodpasture disease with renal involvement, allowing diagnostic confirmation and assessment of renal prognosis. Performed by [employer] [address] [place] [address],[place] [address] [email or web address] Roger Paiz MD, Lab. Director Performing Laboratory: Performed By: #### P T #### [facility] [address] [place] [address] Hemogram/Diffon 07-31-2018 Abs Immature Grans 0.09 thou/cmm High 0.00-0.05 [facility] Comment on above: Performed By: #### C BCD1 #### [facility] [address] [place] [address] Abs Neut (ANC) 4.36 thou/cmm Normal 1.56-6.13 [facility] Comment on above: Performed By: #### C BCD1 #### [facility] [address] [place] [address] Abs. Baso 0.05 thou/cmm Normal 0.01-0.08 [facility] Comment on above: Result Comment: Smea r scanned; tech agrees with automated differential Performed By: #### C BCD1 #### [facility] [address] [place] [address] Abs. [place] 1.64 thou/cmm High 0.27-0.70 [facility] Comment on above: Performed By: #### C BCD1 #### [facility] [address] [place] [address] Basophils/100 WBC (Bld) 0.3 % Normal [facility] Comment on above: Performed By: #### C BCD1 #### [facility] [address] [place] [address] Eosinophils (Bld) [#/Vol] 0.51 thou/cmm High 0.00-0.31 [facility] Comment on above: Performed By: #### C BCD1 #### [place] [address] Eosinophils/100 WBC (Bld) 3.3 % Normal [facility] Comment on above: Performed By: #### C BCD1 #### [facility] [address] [place] [address] Immature Grans 0.60 % Normal [facility] Comment on above: Performed By: #### C BCD1 #### [facility] [address] [place] [address] Lymphocytes (Bld) [#/Vol] 8.70 thou/cmm High 1.18-3.74 [facility] Comment on above: Performed By: #### C BCD1 #### [facility] [address] [place], [place] [address] Lymphocytes/100 WBC (Bld) 56.7 % Normal [facility] Comment on above: Performed By: #### C BCD1 #### [facility] [address] [place], [place] [address] Monocytes/100 WBC (Bld) 10.7 % Normal [facility] Comment on above: Performed By: #### C BCD1 #### [facility] [address] [place] [address] Seg Neutrophil 28.4 % Normal [facility] Comment on above: Performed By: #### C BCD1 #### [facility] [address] [place] [address] Erythrocyte distribution width (RBC) [Ratio] 18.8 % High 11.7-14.4 [facility] Comment on above: Performed By: #### C BCD1 #### [facility] [address] [place] [address] Hematocrit (Bld) [Volume fraction] 21.5 % Low 34.1-44.9 [facility] Comment on above: Performed By: #### C BCD1 #### [facility] [address] [place] [address] Hemoglobin (Bld) [Mass/Vol] 6.8 g/dL Critically low 11.2-15.7 [facility] Comment on above: Result Comment: Repe ated AND verified Performed By: #### C BCD1 #### [facility] [address] [place] [address] MCH (RBC) [Entitic mass] 28.8 pg Normal 25.6-32.2 [facility] Comment on above: Performed By: #### C BCD1 #### [facility] [address] [place] [address] MCHC (RBC) [Mass/Vol] 31.6 % Normal 31.6-34.8 [facility] Comment on above: Performed By: #### C BCD1 #### [facility] [address] [place] [address] MCV (RBC) [Entitic vol] 91.1 fL Normal 79.4-94.8 [facility] Comment on above: Performed By: #### C BCD1 #### [facility] [address] [place], [place] [address] Nucleated RBC (Bld) [#/Vol] 0.03 thou/cmm High 0.00-0.01 [facility] Comment on above: Performed By: #### C BCD1 #### [facility] [address] [place], [place] [address] Nucleated RBC/100 WBC (Bld) [Ratio] 0.2 % Normal 0.0-0.2 [facility] Comment on above: Performed By: #### C BCD1 #### [facility] [address] [place] [address] Platelet mean volume (Bld) [Entitic vol] 12.1 fL Normal 9.4-12.3 [facility] Comment on above: Performed By: #### C BCD1 #### [facility] [address] [place] [address] Platelets (Bld) [#/Vol] 50 thou/cmm Critically low 182-369 [facility] Comment on above: Result Comment: [facility] agrees with platelet count Repeated AND verified Performed By: #### C BCD1 #### [facility] [address] [place] [address] RBC (Bld) [#/Vol] 2.36 mil/cmm Low 3.93-5.22 [facility] Comment on above: Performed By: #### C BCD1 #### [facility] [address] [place] [address] RDW SD 58.4 fl High 36.4-46.3 [facility] Comment on above: Performed By: #### C BCD1 #### [facility] [address] [place] [id number] WBC (Bld) [#/Vol] 15.35 thou/cmm High 3.98-10.04 [facility] Comment on above: Performed By: #### C BCD1 #### [facility] [address] [place] [address] Hgbon 07-31-2018 Hemoglobin (Bld) [Mass/Vol] 6.5 g/dL Critically low 11.2-15.7 [facility] Comment on above: Performed By: #### P T #### [facility] [address] [place] [address] Lactic Acidon 07-31-2018 Lactate [Moles/Vol] 0.4 mmol/L Normal 0.4-2.0 [facility] Comment on above: Performed By: #### P T #### [facility] [address] [place] [address] Lipase Bloodon 07-31-2018 Lipase Blood 718 U/L High 73-393 [facility] Comment on above: Performed By: #### P T #### [facility] [address] [place] [address] Misc. Teston 07-31-2018 [facility] Order Code [id number] [facility] Comment on above: Performed By: #### P T #### [facility] [address] [place] [address] Test Name CD25 Normal [facility] Comment on above: Performed By: #### P T #### [facility] [address] [place] [address] Phosphorus Bloodon 9 Phosphate [Mass/Vol] 3.1 mg/dL Normal 2.5-4.[address] [facility] Comment on above: Performed By: #### C BCD1 #### [place] [address] RBC Productson 07-31-2018 Xmatch Unit 1 see below Normal [facility] Comment on above: Result Comment: Comp atible Performed By: #### P T #### [facility] [address] [place] [address] Xmatch Unit 2 see below Normal [facility] Comment on above: Result Comment: Comp atible Performed By: #### P T #### [facility] [address] [place] [address] Xmatch Unit 1 see below Normal [facility] Comment on above: Result Comment: Comp atible Performed By: #### P T #### [facility] [address] [place], [place] [address] Triglyceride Bloodon 019 Triglyceride [Mass/Vol] 579 mg/dL High 0-149 [facility] Comment on above: Result Comment: < 20 0 Desirable Result invalid if not a fasting specimen. Performed By: #### C BCD1 #### [facility] [address] [place], [place] [address] Vancomycin,Randomon 08-01-19 19 INR Coag (Bld) [Relative time] 27.5 mg/L Normal [facility] Comment on above: Result Comment: Trou gh 10.0-20.0 mg/L Peak 18.0-40.0 mg/L Performed By: #### P T #### [facility] [address] [place] [address] Activated PTTon 07-30-2018 aPTT Coag (Bld) [Time] 59.1 s High 23.0-32.4 [facility] Comment on above: Result Comment: Unfr actionated Heparin Therapeutic Ranges: Standard Heparin Nomogram: 53 to 78 seconds (anti-Xa level of 0.3 to 0.7 U/mL) Low Dose/ACS Nomogram: 49 to 67 seconds (anti-Xa level of 0.2 to 0.5 U/mL) Stroke Treatment Nomogram: 49 to 67 seconds (anti-Xa level of 0.2 to 0.5 U/mL) Note: The APTT therapeutic range has been determined for the current lot of laboratory APTT reagent in use throughout the [facility]. Performed By: #### C BCD1 #### [facility] [address] [place], [place] [address] aPTT Coag (Bld) [Time] 60.6 s High 23.0-32.4 [facility] Comment on above: Result Comment: Unfr actionated Heparin Therapeutic Ranges: Standard Heparin Nomogram: 53 to 78 seconds (anti-Xa level of 0.3 to 0.7 U/mL) Low Dose/ACS Nomogram: 49 to 67 seconds (anti-Xa level of 0.2 to 0.5 U/mL) Stroke Treatment Nomogram: 49 to 67 seconds (anti-Xa level of 0.2 to 0.5 U/mL) Note: The APTT therapeutic range has been determined for the current lot of laboratory APTT reagent in use throughout the [facility]. Performed By: #### C BCD1 #### [facility] [address] [place] [id number] aPTT Coag (Bld) [Time] 62.0 s High 23.0-32.4 [facility] Comment on above: Result Comment: Unfr actionated Heparin Therapeutic Ranges: Standard Heparin Nomogram: 53 to 78 seconds (anti-Xa level of 0.3 to 0.7 U/mL) Low Dose/ACS Nomogram: 49 to 67 seconds (anti-Xa level of 0.2 to 0.5 U/mL) Stroke Treatment Nomogram: 49 to 67 seconds (anti-Xa level of 0.2 to 0.5 U/mL) Note: The APTT therapeutic range has been determined for the current lot of laboratory APTT reagent in use throughout the [facility]. Performed By: #### C BCD1 #### [place] [address] aPTT Coag (Bld) [Time] 58.0 s High 23.0-32.4 [facility] Comment on above: Result Comment: Unfr actionated Heparin Therapeutic Ranges: Standard Heparin Nomogram: 53 to 78 seconds (anti-Xa level of 0.3 to 0.7 U/mL) Low Dose/ACS Nomogram: 49 to 67 seconds (anti-Xa level of 0.2 to 0.5 U/mL) Stroke Treatment Nomogram: 49 to 67 seconds (anti-Xa level of 0.2 to 0.5 U/mL) Note: The APTT therapeutic range has been determined for the current lot of laboratory APTT reagent in use throughout the [facility]. Performed By: #### C BCD1 #### [address] [address] aPTT Coag (Bld) [Time] 52.7 s High 23.0-32.4 [facility] Comment on above: Result Comment: Unfr actionated Heparin Therapeutic Ranges: Standard Heparin Nomogram: 53 to 78 seconds (anti-Xa level of 0.3 to 0.7 U/mL) Low Dose/ACS Nomogram: 49 to 67 seconds (anti-Xa level of 0.2 to 0.5 U/mL) Stroke Treatment Nomogram: 49 to 67 seconds (anti-Xa level of 0.2 to 0.5 U/mL) Note: The APTT therapeutic range has been determined for the current lot of laboratory APTT reagent in use throughout the [facility]. Performed By: #### C BCD1 #### [facility] [address] [place] [address] aPTT Coag (Bld) [Time] 46.5 s High 23.0-32.4 [facility] Comment on above: Result Comment: Unfr actionated Heparin Therapeutic Ranges: Standard Heparin Nomogram: 53 to 78 seconds (anti-Xa level of 0.3 to 0.7 U/mL) Low Dose/ACS Nomogram: 49 to 67 seconds (anti-Xa level of 0.2 to 0.5 U/mL) Stroke Treatment Nomogram: 49 to 67 seconds (anti-Xa level of 0.2 to 0.5 U/mL) Note: The APTT therapeutic range has been determined for the current lot of laboratory APTT reagent in use throughout the [facility]. Performed By: #### C BCD1 #### [place] [address] BF Cell Count/Diffon 019 Body Fluid Interp See below Normal [facility] Comment on above: Result Comment: No m alignant cells identified. Performed By: #### C BCD1 #### [place] [address] Interp. by: See below Normal [facility] Comment on above: Result Comment: Emelyn Cloud M.D., Pathologist Performed By: #### C BCD1 #### [facility] [address] [place] [address] Basic Panelon 07-30-2018 Creatinine [Mass/Vol] 3.86 mg/dL High 0.51-0.95 [facility] Comment on above: Performed By: #### C BCD1 #### [place] [address] Anion gap [Moles/Vol] 13 mmol/L Normal 8-16 [facility] Comment on above: Performed By: #### C BCD1 #### [facility] [address] [place], [place] [address] CO2 [Moles/Vol] 24 mmol/L Normal 21-32 [facility] Comment on above: Performed By: #### C BCD1 #### [facility] [address] [place], [place] [address] Glucose [Mass/Vol] 118 mg/dL High 70-99 [facility] Comment on above: Performed By: #### C BCD1 #### [facility] [address] [place], [place] [address] Urea nitrogen [Mass/Vol] 30 mg/dL High 7-18 [facility] Comment on above: Performed By: #### C BCD1 #### [facility] [address] [place] [address] Calcium [Mass/Vol] 7.6 mg/dL Low 8.5-10.1 [facility] Comment on above: Performed By: #### C BCD1 #### [facility] [address] [place] [address] Chloride [Moles/Vol] 103 mmol/L Normal 98-[address] [facility] Comment on above: Performed By: #### C BCD1 #### [facility] [address] [place] [address] Potassium [Moles/Vol] 5.1 mmol/L Normal 3.5-5.1 [facility] Comment on above: Performed By: #### C BCD1 #### [facility] [address] [place] [address] Sodium [Moles/Vol] 135 mmol/L Low 136-145 [facility] Comment on above: Performed By: #### C BCD1 #### [facility] [address] [place] [address] Cult and Smr HUEY and AERon 0 07-30-2018 Cult and Smr HUEY and AER Test performed at [facility] No growth No organisms seen No WBC seen Normal [facility] Comment on above: Performed By: #### P T #### [place] [address] Cult and Smr Aerobicon 05-10 -2019 Cult and Smr Aerobic Test performed at [facility] Normal [facility] Ferritinon 07-30-2018 Ferritin [Mass/Vol] 1049.60 ng/mL High 8.00-252.00 [facility] Comment on above: Performed By: #### C BCD1 #### [facility] [address] [place] [address] Hemogramon 07-30-2018 Erythrocyte distribution width (RBC) [Ratio] 19.1 % High 11.7-14.4 [facility] Comment on above: Performed By: #### C BCD1 #### [facility] [address] [place] [address] Hematocrit (Bld) [Volume fraction] 25.4 % Low 34.1-44.9 [facility] Comment on above: Performed By: #### C BCD1 #### [facility] [address] [place] [address] Hemoglobin (Bld) [Mass/Vol] 7.7 g/dL Low 11.2-15.7 [facility] Comment on above: Performed By: #### C BCD1 #### [facility] [address] [place] [address] MCH (RBC) [Entitic mass] 28.0 pg Normal 25.6-32.2 [facility] Comment on above: Performed By: #### C BCD1 #### [facility] [address] [place] [address] MCHC (RBC) [Mass/Vol] 30.3 % Low 31.6-34.8 [facility] Comment on above: Performed By: #### C BCD1 #### [facility] [address] [place] [address] MCV (RBC) [Entitic vol] 92.4 fL Normal 79.4-94.8 [facility] Comment on above: Performed By: #### C BCD1 #### [facility] [address] [place] [address] Nucleated RBC (Bld) [#/Vol] 0.04 thou/cmm High 0.00-0.01 [facility] Comment on above: Performed By: #### C BCD1 #### [facility] [address] [place], [place] [address] Nucleated RBC/100 WBC (Bld) [Ratio] 0.2 % Normal 0.0-0.2 [facility] Comment on above: Performed By: #### C BCD1 #### [facility] [address] [place], [place] [address] Platelet mean volume (Bld) [Entitic vol] 12.9 fL High 9.4-12.3 [facility] Comment on above: Performed By: #### C BCD1 #### [facility] [address] [place], [place] [address] Platelets (Bld) [#/Vol] 38 thou/cmm Critically low 182-369 [facility] Comment on above: Result Comment: Repe ated AND verified Performed By: #### C BCD1 #### [facility] [address] [place], [place] [address] RBC (Bld) [#/Vol] 2.75 mil/cmm Low 3.93-5.22 [facility] Comment on above: Performed By: #### C BCD1 #### [facility] [address] [place], [place] [address] RDW SD 61.1 fl High 36.4-46.3 [facility] Comment on above: Performed By: #### C BCD1 #### [facility] [address] [place], [place] [address] WBC (Bld) [#/Vol] 22.83 thou/cmm High 3.98-10.04 [facility] Comment on above: Performed By: #### C BCD1 #### [facility] [address] [place], [place] [address] Hgbon 07-30-2018 Hemoglobin (Bld) [Mass/Vol] 7.1 g/dL Low 11.2-15.7 [facility] Comment on above: Performed By: #### C BCD1 #### [facility] [address] [place], [place] [address] Phosphorus Bloodon 9 Phosphate [Mass/Vol] 4.6 mg/dL Normal 2.5-4.[address] [facility] Comment on above: Performed By: #### C BCD1 #### [facility] [address] [place], [place] [address] Vancomycin,Troughon 07-31-19 19 Vancomycin,Trough 16.1 mg/L Normal 10.0-20.0 [facility] Comment on above: Performed By: #### C BCD1 #### [facility] [address] [place], [place] [address] Activated PTTon 07-29-2018 aPTT Coag (Bld) [Time] 44.1 s High 23.0-32.4 [facility] Comment on above: Result Comment: Unfr actionated Heparin Therapeutic Ranges: Standard Heparin Nomogram: 53 to 78 seconds (anti-Xa level of 0.3 to 0.7 U/mL) Low Dose/ACS Nomogram: 49 to 67 seconds (anti-Xa level of 0.2 to 0.5 U/mL) Stroke Treatment Nomogram: 49 to 67 seconds (anti-Xa level of 0.2 to 0.5 U/mL) Note: The APTT therapeutic range has been determined for the current lot of laboratory APTT reagent in use throughout the [facility]. Performed By: #### C BCD1 #### [facility] [address] [place], [place] [address] aPTT Coag (Bld) [Time] 62.1 s High 23.0-32.4 [facility] Comment on above: Result Comment: Unfr actionated Heparin Therapeutic Ranges: Standard Heparin Nomogram: 53 to 78 seconds (anti-Xa level of 0.3 to 0.7 U/mL) Low Dose/ACS Nomogram: 49 to 67 seconds (anti-Xa level of 0.2 to 0.5 U/mL) Stroke Treatment Nomogram: 49 to 67 seconds (anti-Xa level of 0.2 to 0.5 U/mL) Note: The APTT therapeutic range has been determined for the current lot of laboratory APTT reagent in use throughout the [facility]. Performed By: #### C BCD1 #### [facility] [address] [place], [place] [address] aPTT Coag (Bld) [Time] 34.0 s High 23.0-32.4 [facility] Comment on above: Result Comment: Unfr actionated Heparin Therapeutic Ranges: Standard Heparin Nomogram: 53 to 78 seconds (anti-Xa level of 0.3 to 0.7 U/mL) Low Dose/ACS Nomogram: 49 to 67 seconds (anti-Xa level of 0.2 to 0.5 U/mL) Stroke Treatment Nomogram: 49 to 67 seconds (anti-Xa level of 0.2 to 0.5 U/mL) Note: The APTT therapeutic range has been determined for the current lot of laboratory APTT reagent in use throughout the [facility]. Performed By: #### C BCD1 #### [place] [address] BF Cell Count/Diffon 019 BF/Others 20 % Normal [facility] Comment on above: Performed By: #### C BCD1 #### [place] [address] BF/Segs 75 % Normal [facility] Comment on above: Performed By: #### C BCD1 #### [place] [address] Lymphocytes/100 WBC (Bld) 5 % Normal [facility] Comment on above: Performed By: #### C BCD1 #### [place] [address] Appearance (U) Hazy Normal [facility] Comment on above: Performed By: #### C BCD1 #### [place] [address] BF/Nucleated Cells 400 /cmm Normal 0 [facility] Comment on above: Performed By: #### C BCD1 #### [place] [address] Body Fluid Color Colorless Normal [facility] Comment on above: Performed By: #### C BCD1 #### [place] [address] Specimen type Nom (Spec) Bronch. Wash Normal [facility] Comment on above: Performed By: #### C BCD1 #### [address] [place], [place] [address] Basic Panelon 07-29-2018 Creatinine [Mass/Vol] 3.69 mg/dL High 0.51-0.95 [facility] Comment on above: Performed By: #### C BCD1 #### [facility] [address] [place], [place] [address] Anion gap [Moles/Vol] 12 mmol/L Normal 8-16 [facility] Comment on above: Performed By: #### C BCD1 #### [facility] [address] [place], [place] [address] CO2 [Moles/Vol] 24 mmol/L Normal 21-32 [facility] Comment on above: Performed By: #### C BCD1 #### [facility] [address] [place], [place] [address] Glucose [Mass/Vol] 109 mg/dL High 70-99 [facility] Comment on above: Performed By: #### C BCD1 #### [facility] [address] [place], [place] [address] Urea nitrogen [Mass/Vol] 29 mg/dL High 7-18 [facility] Comment on above: Performed By: #### C BCD1 #### [facility] [address] [place], [place] [address] Calcium [Mass/Vol] 7.2 mg/dL Low 8.5-10.1 [facility] Comment on above: Performed By: #### C BCD1 #### [facility] [address] [place], [place] [address] Chloride [Moles/Vol] 104 mmol/L Normal 98-[address] [facility] Comment on above: Performed By: #### C BCD1 #### [facility] [address] [place], [place] [address] Potassium [Moles/Vol] 4.9 mmol/L Normal 3.5-5.1 [facility] Comment on above: Performed By: #### C BCD1 #### [facility] [address] [place], [place] [address] Sodium [Moles/Vol] 135 mmol/L Low 136-145 [facility] Comment on above: Performed By: #### C BCD1 #### [facility] [address] [place], [place] [address] CRPon 07-29-2018 CRP [Mass/Vol] 21.90 mg/dL High 0.00-0.30 [facility] Comment on above: Performed By: #### C BCD1 #### [facility] [address] [place], [place] [address] Creatinine Bloodon 9 Creatinine [Mass/Vol] 4.47 mg/dL High 0.51-0.95 [facility] Comment on above: Performed By: #### C BCD1 #### [facility] [address] [place] [address] Cult Fungalon 07-29-2018 Cult Fungal Test performed at [facility] ORGANISM: *Yeast not Love albicans or Cryptococcus neoformans (ID: 1) Few Normal [facility] Comment on above: Performed By: #### C BCD1 #### [facility] [address] [place] [address] Cult and [employer]r [employer] (TB)on Cult and Smr [employer] (TB) Test performed at [facility] No acid fast bacilli cultured No AFB by Fluorochrome stain Normal [facility] Comment on above: Performed By: #### C BCD1 #### [facility] [address] [place] [address] Cult and Smr Respiratoryon 07-29-2018 Cult and Smr Respiratory Test performed at [facility] Rare normal oropharyngeal reynaldo present No organisms seen No WBC seen Rare Squamous epithelial cells ORGANISM: *Yeast not Love albicans or Cryptococcus neoformans (ID: 1) Few Normal [facility] Comment on above: Performed By: #### C BCD1 #### [facility] [address] [place], [place] [address] Fibrinogenon 07-29-2018 Fibrinogen 191 mg/dL Low 200-400 [facility] Comment on above: Performed By: #### C BCD1 #### [facility] [address] [place] [address] Haptoglobinon 07-29-2018 Haptoglobin 84.8 mg/dL Normal 30.0-200.0 [facility] Comment on above: Performed By: #### C BCD1 #### [facility] [address] [place] [address] Hemogramon 07-29-2018 Erythrocyte distribution width (RBC) [Ratio] 18.0 % High 11.7-14.4 [facility] Comment on above: Performed By: #### C BCD1 #### [facility] [address] [place] [address] Hematocrit (Bld) [Volume fraction] 21.6 % Low 34.1-44.9 [facility] Comment on above: Performed By: #### C BCD1 #### [facility] [address] [place] [address] Hemoglobin (Bld) [Mass/Vol] 6.7 g/dL Critically low 11.2-15.7 [facility] Comment on above: Performed By: #### C BCD1 #### [facility] [address] [place] [address] MCH (RBC) [Entitic mass] 28.9 pg Normal 25.6-32.2 [facility] Comment on above: Performed By: #### C BCD1 #### [facility] [address] [place] [address] MCHC (RBC) [Mass/Vol] 31.0 % Low 31.6-34.8 [facility] Comment on above: Performed By: #### C BCD1 #### [facility] [address] [place] [address] MCV (RBC) [Entitic vol] 93.1 fL Normal 79.4-94.8 [facility] Comment on above: Performed By: #### C BCD1 #### [facility] [address] [place] [address] Nucleated RBC (Bld) [#/Vol] 0.09 thou/cmm High 0.00-0.01 [facility] Comment on above: Performed By: #### C BCD1 #### [facility] [address] [place] [address] Nucleated RBC/100 WBC (Bld) [Ratio] 0.3 % High 0.0-0.2 [facility] Comment on above: Performed By: #### C BCD1 #### [facility] [address] [place], [place] [address] Platelet mean volume (Bld) [Entitic vol] 13.2 fL High 9.4-12.3 [facility] Comment on above: Performed By: #### C BCD1 #### [facility] [address] [place], [place] [address] Platelets (Bld) [#/Vol] 43 thou/cmm Critically low 182-369 [facility] Comment on above: Performed By: #### C BCD1 #### [facility] [address] [place], [place] [address] RBC (Bld) [#/Vol] 2.32 mil/cmm Low 3.93-5.22 [facility] Comment on above: Performed By: #### C BCD1 #### [facility] [address] [place] [address] RDW SD 59.3 fl High 36.4-46.3 [facility] Comment on above: Performed By: #### C BCD1 #### [facility] [address] [place], [place] [address] WBC (Bld) [#/Vol] 26.24 thou/cmm Critically high 3.98-10.0 4 [facility] Comment on above: Performed By: #### C BCD1 #### [facility] [address] [place], [place] [address] Erythrocyte distribution width (RBC) [Ratio] 17.8 % High 11.7-14.4 [facility] Comment on above: Performed By: #### C BCD1 #### [facility] [address] [place], [place] [address] Hematocrit (Bld) [Volume fraction] 23.7 % Low 34.1-44.9 [facility] Comment on above: Performed By: #### C BCD1 #### [facility] [address] [place], [place] [address] Hemoglobin (Bld) [Mass/Vol] 7.4 g/dL Low 11.2-15.7 [facility] Comment on above: Performed By: #### C BCD1 #### [facility] [address] [place], [place] [address] MCH (RBC) [Entitic mass] 28.8 pg Normal 25.6-32.2 [facility] Comment on above: Performed By: #### C BCD1 #### [facility] [address] [place], [place] [address] MCHC (RBC) [Mass/Vol] 31.2 % Low 31.6-34.8 [facility] Comment on above: Performed By: #### C BCD1 #### [facility] [address] [place], [place] [address] MCV (RBC) [Entitic vol] 92.2 fL Normal 79.4-94.8 [facility] Comment on above: Performed By: #### C BCD1 #### [facility] [address] [place], [place] [address] Nucleated RBC (Bld) [#/Vol] 0.15 thou/cmm High 0.00-0.01 [facility] Comment on above: Performed By: #### C BCD1 #### [facility] [address] [place], [place] [address] Nucleated RBC/100 WBC (Bld) [Ratio] 0.5 % High 0.0-0.2 [facility] Comment on above: Performed By: #### C BCD1 #### [facility] [address] [place], [place] [address] Platelet mean volume (Bld) [Entitic vol] 12.3 fL Normal 9.4-12.3 [facility] Comment on above: Performed By: #### C BCD1 #### [facility] [address] [place], [place] [address] Platelets (Bld) [#/Vol] 40 thou/cmm Critically low 182-369 [facility] Comment on above: Result Comment: Smea r scanned tech agrees with platelet count Repeated AND verified Performed By: #### C BCD1 #### [facility] [address] [place], [place] [address] RBC (Bld) [#/Vol] 2.57 mil/cmm Low 3.93-5.22 [facility] Comment on above: Performed By: #### C BCD1 #### [facility] [address] [place] [address] RDW SD 58.1 fl High 36.4-46.3 [facility] Comment on above: Performed By: #### C BCD1 #### [facility] [address] [place] [address] WBC (Bld) [#/Vol] 32.15 thou/cmm Critically high 3.98-10.0 4 [facility] Comment on above: Result Comment: Repe ated AND verified Performed By: #### C BCD1 #### [facility] [address] [place] [address] Hepatic Panelon 07-29-2018 Bilirubin [Mass/Vol] see below Normal 0.00-0.[address] [facility] Comment on above: Result Comment: Hemo globin interference present. No direct bilirubin result reportable. Performed By: #### C BCD1 #### [facility] [address] [place] [address] ALP [Catalytic activity/Vol] 54 U/L Normal 46-116 [facility] Comment on above: Performed By: #### C BCD1 #### [facility] [address] [place] [address] Bilirubin [Mass/Vol] 1.3 mg/dL High 0.2-1.[address] [facility] Comment on above: Performed By: #### C BCD1 #### [facility] [address] [place] [address] Protein [Mass/Vol] 5.3 g/dL Low 6.4-8.2 [facility] Comment on above: Performed By: #### C BCD1 #### [facility] [address] [place] [address] ALT [Catalytic activity/Vol] 27 U/L Normal 12-78 [facility] Comment on above: Performed By: #### C BCD1 #### [facility] [address] [place] [address] AST [Catalytic activity/Vol] 46 U/L High 9-37 [facility] Comment on above: Performed By: #### C BCD1 #### [facility] [address] [place] [address] Albumin [Mass/Vol] 2.9 g/dL Low 3.4-5.0 [facility] Comment on above: Performed By: #### C BCD1 #### [facility] [address] [place], [place] [address] LD,Total Bloodon 07-29-2018 LD,Total Blood 495 U/L High 84-246 [facility] Comment on above: Performed By: #### C BCD1 #### [facility] [address] [place] [address] Lactic Acidon 07-29-2018 Lactate [Moles/Vol] 0.5 mmol/L Normal 0.4-2.0 [facility] Comment on above: Performed By: #### C BCD1 #### [facility] [address] [place] [address] Lipase Bloodon 07-29-2018 Lipase Blood 625 U/L High 73-393 [facility] Comment on above: Performed By: #### C BCD1 #### [facility] [address] [place] [address] Phosphorus Bloodon 9 Phosphate [Mass/Vol] 3.8 mg/dL Normal 2.5-4.[address] [facility] Comment on above: Performed By: #### C BCD1 #### [facility] [address] [place] [address] Prealbuminon 07-29-2018 Prealbumin [Mass/Vol] 7.5 mg/dL Low 20.0-40.0 [facility] Comment on above: Performed By: #### C BCD1 #### [facility] [address] [place] [address] Protimeon 07-29-2018 INR Coag (PPP) [Relative time] 1.26 {INR} Normal 0.90-1.30 [facility] Comment on above: Result Comment: Celina min K Antagonist (VKA) Therapeutic Range: INR 2 to 3 (Target INR of 2.5) Note: For patients treated with VKA drugs, such as warfarin, the [place] [employer] 2012 Guideline recommends a therapeutic INR range of 2 to 3 (target INR of 2.5). This recommendation includes high-risk patients with antiphospholipid syndrome with previous arterial or venous thromboembolism, current-generation mechanical or bioprosthetic aortic heart valve replacement. VKA Therapeutic Range for some Mechanical Valve Replacement: INR 2.5 to 3.5 (Target INR of 3) Note: Patients with mechanical aortic valve replacement and additional risk factors for thromboembolic events (atrial fibrillation, previous thromboembolism, LV dysfunction, hypercoagulable conditions) or an older generation mechanical AVR (i.e., ball in-Cage) or any mechanical MVR should have a INR therapeutic range of 2.5 to 3.5 target INR of 3). Heidi GH, et al. Chest 2012; 141:7S-47S Miranda RA et al. [facility] 2017; 70: 252-289 Performed By: #### C BCD1 #### [place] [address] PT Coag (PPP) [Time] 12.9 s Normal 9.7-13.[address] [facility] Comment on above: Performed By: #### C BCD1 #### [place] [address] RBC Productson 07-29-2018 Xmatch Unit 1 see below Normal [facility] Comment on above: Result Comment: Comp atible Performed By: #### C BCD1 #### [place] [address] Schistocyte Scanon 9 Schistocyte Scan None Normal None [facility] Comment on above: Performed By: #### C BCD1 #### [facility] [address] [place] [address] Sed Rateon 07-29-2018 Sed Rate 8 mm/hr Normal 0-20 [facility] Comment on above: Performed By: #### C BCD1 #### [facility] [address] [place] [address] Triglyceride Bloodon 019 Triglyceride [Mass/Vol] 630 mg/dL High 0-149 [facility] Comment on above: Result Comment: < 20 0 Desirable Result invalid if not a fasting specimen. Performed By: #### C BCD1 #### [facility] [address] [place] [address] Type and Screenon 07-29-2018 ABO group Nom (Bld) O Normal [facility] Comment on above: Performed By: #### C BCD1 #### [place] [address] Comment See Below Normal [facility] Comment on above: Result Comment: Scre en &/or Xmatch expires in 3 days at 12 midnight. Redraw patient at that time. Performed By: #### C BCD1 #### [facility] [address] [place] [address] RH Type Positive Normal [facility] Comment on above: Performed By: #### C BCD1 #### [facility] [address] [place] [address] Vancomycin,Randomon 07-30-19 19 INR Coag (Bld) [Relative time] 29.1 mg/L Normal [facility] Comment on above: Result Comment: Trou gh 10.0-20.0 mg/L Peak 18.0-40.0 mg/L Performed By: #### C BCD1 #### [place] [address] Basic Panelon 07-28-2018 Creatinine [Mass/Vol] 1.73 mg/dL High 0.51-0.95 [facility] Comment on above: Performed By: #### C BCD1 #### [place] [address] Anion gap [Moles/Vol] 11 mmol/L Normal 8-16 [facility] Comment on above: Performed By: #### C BCD1 #### [place] [address] CO2 [Moles/Vol] 24 mmol/L Normal 21-32 [facility] Comment on above: Performed By: #### C BCD1 #### [place] [address] Calcium [Mass/Vol] 7.4 mg/dL Low 8.5-10.1 [facility] Comment on above: Performed By: #### C BCD1 #### [facility] [address] [place], [place] [address] Urea nitrogen [Mass/Vol] 12 mg/dL Normal 7-18 [facility] Comment on above: Performed By: #### C BCD1 #### [facility] [address] [place], [place] [address] Glucose [Mass/Vol] 84 mg/dL Normal 70-99 [facility] Comment on above: Performed By: #### C BCD1 #### [facility] [address] [place] [address] Chloride [Moles/Vol] 107 mmol/L Normal 98-[address] [facility] Comment on above: Performed By: #### C BCD1 #### [facility] [address] [place] [address] Potassium [Moles/Vol] 4.2 mmol/L Normal 3.5-5.1 [facility] Comment on above: Performed By: #### C BCD1 #### [facility] [address] [place] [address] Sodium [Moles/Vol] 138 mmol/L Normal 136-145 [facility] Comment on above: Performed By: #### C BCD1 #### [facility] [address] [place] [address] Blood Gas Arterialon 019 Base Excess -0.3 mmol/L Normal -3.0-3.0 [facility] Comment on above: Performed By: #### C BCD1 #### [facility] [address] [place] [address] FIO2 Value Not Given Normal [facility] Comment on above: Performed By: #### C BCD1 #### [facility] [address] [place] [address] HCO3 (Bld) [Moles/Vol] 23.1 mmol/L Normal 21.0-28.0 [facility] Comment on above: Performed By: #### C BCD1 #### [facility] [address] [place] [address] O2% Sat Arterial 98.8 % Normal 96.0-100.0 [facility] Comment on above: Performed By: #### C BCD1 #### [facility] [address] [place] [address] PCO2 Arterial 36.8 mm Hg Normal 35.0-45.0 [facility] Comment on above: Performed By: #### C BCD1 #### [facility] [address] [place] [address] pH Arterial 7.422 Normal 7.350-7.450 [facility] Comment on above: Performed By: #### C BCD1 #### [facility] [address] [place] [address] PO2 Arterial 124.0 mm Hg High 83.0-108.0 [facility] Comment on above: Performed By: #### C BCD1 #### [facility] [address] [place] [address] C3on 07-28-2018 C3 60.6 mg/dL Low 90.0-180.0 [facility] Comment on above: Performed By: #### C BCD1 #### [facility] [address] [place] [address] C4on 07-28-2018 C4 12.0 mg/dL Normal 10.0-40.0 [facility] Comment on above: Performed By: #### C BCD1 #### [facility] [address] [place] [address] Hemogram/Diffon 07-28-2018 Abs Immature Grans 1.22 thou/cmm High 0.00-0.05 [facility] Comment on above: Performed By: #### C BCD1 #### [facility] [address] [place] [address] Abs Neut (ANC) 9.86 thou/cmm High 1.56-6.13 [facility] Comment on above: Performed By: #### C BCD1 #### [facility] [address] [place] [address] Abs. Baso 0.24 thou/cmm High 0.01-0.08 [facility] Comment on above: Result Comment: Smea r scanned; tech agrees with automated differential Performed By: #### C BCD1 #### [facility] [address] [place], [place] [address] Abs. [place] 4.69 thou/cmm High 0.27-0.70 [facility] Comment on above: Performed By: #### C BCD1 #### [facility] [address] [place], [place] [address] Basophils/100 WBC (Bld) 0.7 % Normal [facility] Comment on above: Performed By: #### C BCD1 #### [facility] [address] [place], [place] [address] Eosinophils (Bld) [#/Vol] 0.65 thou/cmm High 0.00-0.31 [facility] Comment on above: Performed By: #### C BCD1 #### [facility] [address] [place], [place] [address] Eosinophils/100 WBC (Bld) 1.9 % Normal [facility] Comment on above: Performed By: #### C BCD1 #### [facility] [address] [place], [place] [address] Immature Grans 3.60 % Normal [facility] Comment on above: Performed By: #### C BCD1 #### [facility] [address] [place], [place] [address] Lymphocytes (Bld) [#/Vol] 17.35 thou/cmm High 1.18-3.74 [facility] Comment on above: Performed By: #### C BCD1 #### [facility] [address] [place], [place] [address] Lymphocytes/100 WBC (Bld) 51.0 % Normal [facility] Comment on above: Performed By: #### C BCD1 #### [facility] [address] [place], [place] [address] Monocytes/100 WBC (Bld) 13.8 % Normal [facility] Comment on above: Performed By: #### C BCD1 #### [facility] [address] [place], [place] [address] Seg Neutrophil 29.0 % Normal [employer] [facility] Comment on above: Performed By: #### C BCD1 #### [facility] [address] [place], [place] [address] Erythrocyte distribution width (RBC) [Ratio] 17.3 % High 11.7-14.4 [facility] Comment on above: Performed By: #### C BCD1 #### [facility] [address] [place], [place] [address] Hematocrit (Bld) [Volume fraction] 26.4 % Low 34.1-44.9 [facility] Comment on above: Performed By: #### C BCD1 #### [facility] [address] [place], [place] [address] Hemoglobin (Bld) [Mass/Vol] 8.3 g/dL Low 11.2-15.7 [facility] Comment on above: Performed By: #### C BCD1 #### [facility] [address] [place] [address] MCH (RBC) [Entitic mass] 29.0 pg Normal 25.6-32.2 [facility] Comment on above: Performed By: #### C BCD1 #### [facility] [address] [place] [address] MCHC (RBC) [Mass/Vol] 31.4 % Low 31.6-34.8 [facility] Comment on above: Performed By: #### C BCD1 #### [facility] [address] [place] [address] MCV (RBC) [Entitic vol] 92.3 fL Normal 79.4-94.8 [facility] Comment on above: Performed By: #### C BCD1 #### [facility] [address] [place], [place] [address] Nucleated RBC (Bld) [#/Vol] 0.24 thou/cmm High 0.00-0.01 [facility] Comment on above: Performed By: #### C BCD1 #### [facility] [address] [place], [place] [address] Nucleated RBC/100 WBC (Bld) [Ratio] 0.7 % High 0.0-0.2 [facility] Comment on above: Performed By: #### C BCD1 #### [facility] [address] [place], [place] [address] Platelets (Bld) [#/Vol] 22 thou/cmm Critically low 182-369 [facility] Comment on above: Performed By: #### C BCD1 #### [facility] [address] [place], [place] [address] RBC (Bld) [#/Vol] 2.86 mil/cmm Low 3.93-5.22 [facility] Comment on above: Performed By: #### C BCD1 #### [facility] [address] [place], [place] [address] RDW SD 56.6 fl High 36.4-46.3 [facility] Comment on above: Performed By: #### C BCD1 #### [facility] [address] [place], [place] [address] WBC (Bld) [#/Vol] 34.01 thou/cmm Critically high 3.98-10.0 4 [facility] Comment on above: Performed By: #### C BCD1 #### [facility] [address] [place], [place] [address] Lipase Bloodon 07-28-2018 Lipase Blood 797 U/L High 73-393 [facility] Comment on above: Performed By: #### C BCD1 #### [facility] [address] [place], [place] [address] Phosphorus Bloodon 9 Phosphate [Mass/Vol] 1.7 mg/dL Critically low 2.5-4.9 [facility] Comment on above: Performed By: #### C BCD1 #### [facility] [address] [place], [place] [address] Triglyceride Bloodon 019 Triglyceride [Mass/Vol] 437 mg/dL High 0-149 [facility] Comment on above: Result Comment: < 20 0 Desirable Result invalid if not a fasting specimen. Performed By: #### C BCD1 #### [facility] [address] [place], [place] [address] Basic Panelon 07-27-2018 Urea nitrogen [Mass/Vol] 17 mg/dL Normal 7-18 [facility] Comment on above: Performed By: #### C BCD1 #### [facility] [address] [place], [place] [address] Creatinine [Mass/Vol] 1.90 mg/dL High 0.51-0.95 [facility] Comment on above: Performed By: #### C BCD1 #### [facility] [address] [place], [place] [address] Anion gap [Moles/Vol] 12 mmol/L Normal 8-16 [facility] Comment on above: Performed By: #### C BCD1 #### [facility] [address] [place], [place] [address] Calcium [Mass/Vol] 7.8 mg/dL Low 8.5-10.1 [facility] Comment on above: Performed By: #### C BCD1 #### [facility] [address] [place], [place] [address] CO2 [Moles/Vol] 24 mmol/L Normal 21-32 [facility] Comment on above: Performed By: #### C BCD1 #### [facility] [address] [place], [place] [address] Glucose [Mass/Vol] 93 mg/dL Normal 70-99 [facility] Comment on above: Performed By: #### C BCD1 #### [facility] [address] [place], [place] [address] Chloride [Moles/Vol] 105 mmol/L Normal 98-[address] [facility] Comment on above: Performed By: #### C BCD1 #### [facility] [address] [place], [place] [address] Potassium [Moles/Vol] 3.8 mmol/L Normal 3.5-5.1 [facility] Comment on above: Performed By: #### C BCD1 #### [facility] [address] [place], [place] [address] Sodium [Moles/Vol] 137 mmol/L Normal 136-145 [facility] Comment on above: Performed By: #### C BCD1 #### [facility] [address] [place], [place] [address] Blood Gas Arterialon 019 Base Excess 0.4 mmol/L Normal -3.0-3.0 [facility] Comment on above: Performed By: #### C BCD1 #### [facility] [address] [place] [address] HCO3 (Bld) [Moles/Vol] 24.3 mmol/L Normal 21.0-28.0 [facility] Comment on above: Performed By: #### C BCD1 #### [facility] [address] [place] [address] O2% Sat Arterial 83.6 % Low 96.0-100.0 [facility] Comment on above: Performed By: #### C BCD1 #### [facility] [address] [place] [address] PCO2 Arterial 37.9 mm Hg Normal 35.0-45.0 [facility] Comment on above: Performed By: #### C BCD1 #### [facility] [address] [place] [address] pH Arterial 7.422 Normal 7.350-7.450 [facility] Comment on above: Performed By: #### C BCD1 #### [facility] [address] [place] [address] PO2 Arterial 48.4 mm Hg Low 83.0-108.0 [facility] Comment on above: Performed By: #### C BCD1 #### [facility] [address] [place] [address] FIO2 40 % Normal [facility] Comment on above: Performed By: #### C BCD1 #### [facility] [address] [place] [address] Cult Bloodon 07-27-2018 Cult Blood Test performed at [facility] No growth Normal [facility] Comment on above: Performed By: #### C BCD1 #### [facility] [address] [place] [address] Cult Blood Test performed at [facility] No growth Normal [facility] Comment on above: Performed By: #### C BCD1 #### [facility] [address] [place] [address] Cult and Smr Respiratoryon 0 07-27-2018 Cult and Smr Respiratory Test performed at [facility] Absence of normal oropharyngeal reynaldo Few yeast Moderate Polymorphonuclear leukocytes Few Mononuclear cells Rare RBCs Few Squamous epithelial cells ORGANISM: *Yeast not Love albicans or Cryptococcus neoformans (ID: 1) Many Normal [facility] Comment on above: Performed By: #### C BCD1 #### [facility] [address] [place], [place] [address] Hemogram/Diffon 07-27-2018 Interpreted by See below Normal [facility] Comment on above: Result Comment: Emelyn Cloud M.D., Pathologist Performed By: #### C BCD1 #### [facility] [address] [place], [place] [address] Abs Neut (ANC) 8.71 thou/cmm High 1.56-6.13 [facility] Comment on above: Performed By: #### C BCD1 #### [address] [address] Abs. Baso 0.00 thou/cmm Low 0.01-0.08 [facility] Comment on above: Performed By: #### C BCD1 #### [facility] [address] [place], [place] [address] Abs. [place] 0.94 thou/cmm High 0.27-0.70 [facility] Comment on above: Performed By: #### C BCD1 #### [facility] [address] [place], [place] [address] Anisocytosis Ql (Bld) Few Normal [facility] Comment on above: Performed By: #### C BCD1 #### [facility] [address] [place], [place] [address] Basophils/100 WBC (Bld) 0.0 % Normal [facility] Comment on above: Performed By: #### C BCD1 #### [facility] [address] [place], [place] [address] Eosinophils (Bld) [#/Vol] 0.24 thou/cmm Normal 0.00-0.31 [facility] Comment on above: Performed By: #### C BCD1 #### [facility] [address] [place], [place] [address] Eosinophils/100 WBC (Bld) 1.0 % Normal [facility] Comment on above: Performed By: #### C BCD1 #### [facility] [address] [place] [address] Erythrocyte distribution width (RBC) [Ratio] 16.6 % High 11.7-14.4 [facility] Comment on above: Performed By: #### C BCD1 #### [facility] [address] [place] [address] Hematocrit (Bld) [Volume fraction] 27.3 % Low 34.1-44.9 [facility] Comment on above: Performed By: #### C BCD1 #### [facility] [address] [place] [address] Hemoglobin (Bld) [Mass/Vol] 8.8 g/dL Low 11.2-15.7 [facility] Comment on above: Performed By: #### C BCD1 #### [facility] [address] [place] [address] Lymphocytes (Bld) [#/Vol] 13.65 thou/cmm High 1.18-3.74 [facility] Comment on above: Performed By: #### C BCD1 #### [facility] [address] [place] [address] Lymphocytes/100 WBC (Bld) 58.0 % Normal [facility] Comment on above: Performed By: #### C BCD1 #### [facility] [address] [place] [address] MCH (RBC) [Entitic mass] 28.9 pg Normal 25.6-32.2 [facility] Comment on above: Performed By: #### C BCD1 #### [facility] [address] [place] [address] MCHC (RBC) [Mass/Vol] 32.2 % Normal 31.6-34.8 [facility] Comment on above: Performed By: #### C BCD1 #### [facility] [address] [place] [address] MCV (RBC) [Entitic vol] 89.5 fL Normal 79.4-94.8 [facility] Comment on above: Performed By: #### C BCD1 #### [facility] [address] [place], [place] [address] Monocytes/100 WBC (Bld) 4.0 % Normal [facility] Comment on above: Performed By: #### C BCD1 #### [facility] [address] [place], [place] [address] Nucleated RBC (Bld) [#/Vol] 0.15 thou/cmm High 0.00-0.01 [facility] Comment on above: Performed By: #### C BCD1 #### [facility] [address] [place], [place] [address] Nucleated RBC/100 WBC (Bld) [Ratio] 1.0 /100 WBC Normal [facility] Comment on above: Performed By: #### C BCD1 #### [facility] [address] [place], [place] [address] Nucleated RBC/100 WBC (Bld) [Ratio] 0.6 % High 0.0-0.2 [facility] Comment on above: Performed By: #### C BCD1 #### [facility] [address] [place], [place] [address] Platelet mean volume (Bld) [Entitic vol] 12.9 fL High 9.4-12.3 [facility] Comment on above: Performed By: #### C BCD1 #### [facility] [address] [place], [place] [address] Platelets (Bld) [#/Vol] 36 thou/cmm Critically low 182-369 [facility] Comment on above: Result Comment: Repe ated AND verified Performed By: #### C BCD1 #### [facility] [address] [place], [place] [address] RBC (Bld) [#/Vol] 3.05 mil/cmm Low 3.93-5.22 [facility] Comment on above: Performed By: #### C BCD1 #### [facility] [address] [place], [place] [address] RBC morphology finding Nom (Bld) Present Normal [facility] Comment on above: Performed By: #### C BCD1 #### [facility] [address] [place] [address] RDW SD 53.1 fl High 36.4-46.3 [facility] Comment on above: Performed By: #### C BCD1 #### [facility] [address] [place] [address] Seg Neutrophil 37.0 % Normal [facility] Comment on above: Performed By: #### C BCD1 #### [facility] [address] [place] [address] Smudge Cells Present Normal [facility] Comment on above: Performed By: #### C BCD1 #### [facility] [address] [place] [address] WBC (Bld) [#/Vol] 23.54 thou/cmm High 3.98-10.04 [facility] Comment on above: Performed By: #### C BCD1 #### [facility] [address] [place] [address] Hepatic Panelon 07-27-2018 ALP [Catalytic activity/Vol] 65 U/L Normal 46-116 [facility] Comment on above: Performed By: #### C BCD1 #### [facility] [address] [place] [address] Protein [Mass/Vol] 5.4 g/dL Low 6.4-8.2 [facility] Comment on above: Performed By: #### C BCD1 #### [facility] [address] [place] [address] ALT [Catalytic activity/Vol] 59 U/L Normal 12-78 [facility] Comment on above: Performed By: #### C BCD1 #### [facility] [address] [place] [address] Bilirubin [Mass/Vol] 1.55 mg/dL High 0.00-0.[address] [facility] Comment on above: Performed By: #### C BCD1 #### [facility] [address] [place] [address] Bilirubin [Mass/Vol] 2.1 mg/dL High 0.2-1.[address] [facility] Comment on above: Performed By: #### C BCD1 #### [facility] [address] [place], [place] [address] AST [Catalytic activity/Vol] 100 U/L High 9-37 [facility] Comment on above: Performed By: #### C BCD1 #### [facility] [address] [place], [place] [address] Albumin [Mass/Vol] 2.9 g/dL Low 3.4-5.0 [facility] Comment on above: Performed By: #### C BCD1 #### [facility] [address] [place], [place] [address] Lipase Bloodon 07-27-2018 Lipase Blood 1412 U/L High 73-393 [facility] Comment on above: Performed By: #### C BCD1 #### [facility] [address] [place], [place] [address] Phosphorus Bloodon 9 Phosphate [Mass/Vol] 0.9 mg/dL Critically low 2.5-4.9 [facility] Comment on above: Result Comment: RESU LT RECHECKED Performed By: #### C BCD1 #### [facility] [address] [place], [place] [address] Triglyceride Bloodon 019 Triglyceride [Mass/Vol] 854 mg/dL High 0-149 [facility] Comment on above: Result Comment: < 20 0 Desirable Result invalid if not a fasting specimen. Performed By: #### C BCD1 #### [facility] [address] [place], [place] [address] Basic Panelon 07-26-2018 Creatinine [Mass/Vol] 1.81 mg/dL High 0.51-0.95 [facility] Comment on above: Performed By: #### C BCD1 #### [facility] [address] [place], [place] [address] Anion gap [Moles/Vol] 12 mmol/L Normal 8-16 [facility] Comment on above: Performed By: #### C BCD1 #### [facility] [address] [place], [place] [address] CO2 [Moles/Vol] 25 mmol/L Normal 21-32 [facility] Comment on above: Performed By: #### C BCD1 #### [facility] [address] [place], [place] [address] Urea nitrogen [Mass/Vol] 16 mg/dL Normal 7-18 [facility] Comment on above: Performed By: #### C BCD1 #### [facility] [address] [place], [place] [address] Calcium [Mass/Vol] 7.7 mg/dL Low 8.5-10.1 [facility] Comment on above: Performed By: #### C BCD1 #### [facility] [address] [place], [place] [address] Glucose [Mass/Vol] 112 mg/dL High 70-99 [facility] Comment on above: Performed By: #### C BCD1 #### [facility] [address] [place] [address] Chloride [Moles/Vol] 106 mmol/L Normal 98-[address] [facility] Comment on above: Performed By: #### C BCD1 #### [facility] [address] [place] [address] Potassium [Moles/Vol] 4.1 mmol/L Normal 3.5-5.1 [facility] Comment on above: Performed By: #### C BCD1 #### [facility] [address] [place] [address] Sodium [Moles/Vol] 139 mmol/L Normal 136-145 [facility] Comment on above: Performed By: #### C BCD1 #### [facility] [address] [place], [place] [address] Blood Gas Arterialon 019 Base Excess -0.3 mmol/L Normal -3.0-3.0 [facility] Comment on above: Performed By: #### C BCD1 #### [facility] [address] [place], [place] [address] FIO2 60 % Normal [facility] Comment on above: Performed By: #### C BCD1 #### [facility] [address] [place], [place] [address] HCO3 (Bld) [Moles/Vol] 24.1 mmol/L Normal 21.0-28.0 [facility] Comment on above: Performed By: #### C BCD1 #### [facility] [address] [place], [place] [address] O2% Sat Arterial 99.2 % Normal 96.0-100.0 [facility] Comment on above: Performed By: #### C BCD1 #### [facility] [address] [place], [place] [address] PCO2 Arterial 40.8 mm Hg Normal 35.0-45.0 [facility] Comment on above: Performed By: #### C BCD1 #### [facility] [address] [place], [place] [address] pH Arterial 7.389 Normal 7.350-7.450 [facility] Comment on above: Performed By: #### C BCD1 #### [facility] [address] [place], [place] [address] PO2 Arterial 171.0 mm Hg High 83.0-108.0 [facility] Comment on above: Performed By: #### C BCD1 #### [facility] [address] [place], [place] [address] Base Excess -0.6 mmol/L Normal -3.0-3.0 [facility] Comment on above: Performed By: #### C BCD1 #### [facility] [address] [place], [place] [address] HCO3 (Bld) [Moles/Vol] 23.8 mmol/L Normal 21.0-28.0 [facility] Comment on above: Performed By: #### C BCD1 #### [facility] [address] [place], [place] [address] O2% Sat Arterial 99.3 % Normal 96.0-100.0 [facility] Comment on above: Performed By: #### C BCD1 #### [facility] [address] [place], [place] [address] PCO2 Arterial 40.3 mm Hg Normal 35.0-45.0 [facility] Comment on above: Performed By: #### C BCD1 #### [facility] [address] [place], [place] [address] pH Arterial 7.388 Normal 7.350-7.450 [facility] Comment on above: Performed By: #### C BCD1 #### [facility] [address] [place], [place] [address] PO2 Arterial 214.0 mm Hg High 83.0-108.0 [facility] Comment on above: Performed By: #### C BCD1 #### [facility] [address] [place], [place] [address] FIO2 60 % Normal [facility] Comment on above: Performed By: #### C BCD1 #### [facility] [address] [place] [address] Base Excess -1.4 mmol/L Normal -3.0-3.0 [facility] Comment on above: Performed By: #### C BCD1 #### [facility] [address] [place] [address] HCO3 (Bld) [Moles/Vol] 22.7 mmol/L Normal 21.0-28.0 [facility] Comment on above: Performed By: #### C BCD1 #### [facility] [address] [place] [address] O2% Sat Arterial 99.4 % Normal 96.0-100.0 [facility] Comment on above: Performed By: #### C BCD1 #### [facility] [address] [place] [address] PCO2 Arterial 38.0 mm Hg Normal 35.0-45.0 [facility] Comment on above: Performed By: #### C BCD1 #### [facility] [address] [place] [address] pH Arterial 7.394 Normal 7.350-7.450 [facility] Comment on above: Performed By: #### C BCD1 #### [facility] [address] [place] [address] PO2 Arterial 178.0 mm Hg High 83.0-108.0 [facility] Comment on above: Performed By: #### C BCD1 #### [facility] [address] [place] [address] FIO2 60 % Normal [facility] Comment on above: Performed By: #### C BCD1 #### [facility] [address] [place] [address] CPKon 07-26-2018 CK [Catalytic activity/Vol] 138 U/L Normal 26-192 [facility] Comment on above: Performed By: #### C BCD1 #### [facility] [address] [place] [address] Hemogram/Diffon 07-26-2018 Abs Immature Grans 1.07 thou/cmm High 0.00-0.05 [facility] Comment on above: Performed By: #### C BCD1 #### [facility] [address] [place] [address] Abs Neut (ANC) 9.20 thou/cmm High 1.56-6.13 [facility] Comment on above: Performed By: #### C ORESTESD1 #### [place] [address] Abs. Baso 0.07 thou/cmm Normal 0.01-0.08 [facility] Comment on above: Result Comment: Smea r scanned; tech agrees with automated differential Performed By: #### C BCD1 #### [place] [address] Abs. [place] 0.43 thou/cmm Normal 0.27-0.70 [facility] Comment on above: Performed By: #### C BCD1 #### [place] [address] Basophils/100 WBC (Bld) 0.4 % Normal [facility] Comment on above: Performed By: #### C BCD1 #### [place] [address] Eosinophils (Bld) [#/Vol] 0.18 thou/cmm Normal 0.00-0.31 [facility] Comment on above: Performed By: #### C BCD1 #### [place] [address] Eosinophils/100 WBC (Bld) 1.1 % Normal [facility] Comment on above: Performed By: #### C ORESTESD1 #### [place] [address] Erythrocyte distribution width (RBC) [Ratio] 16.2 % High 11.7-14.4 [facility] Comment on above: Performed By: #### C BCD1 #### [facility] [address] [place] [address] Hematocrit (Bld) [Volume fraction] 24.0 % Low 34.1-44.9 [facility] Comment on above: Performed By: #### C BCD1 #### [facility] [address] [place] [address] Hemoglobin (Bld) [Mass/Vol] 7.9 g/dL Low 11.2-15.7 [facility] Comment on above: Performed By: #### C BCD1 #### [facility] [address] [place] [address] Immature Grans 6.50 % Normal [facility] Comment on above: Performed By: #### C BCD1 #### [place] [address] Lymphocytes (Bld) [#/Vol] 5.51 thou/cmm High 1.18-3.74 [facility] Comment on above: Performed By: #### C BCD1 #### [place] [address] Lymphocytes/100 WBC (Bld) 33.5 % Normal [facility] Comment on above: Performed By: #### C BCD1 #### [facility] [address] [place] [address] MCH (RBC) [Entitic mass] 29.2 pg Normal 25.6-32.2 [facility] Comment on above: Performed By: #### C BCD1 #### [facility] [address] [place] [address] MCHC (RBC) [Mass/Vol] 32.9 % Normal 31.6-34.8 [facility] Comment on above: Performed By: #### C BCD1 #### [facility] [address] [place] [address] MCV (RBC) [Entitic vol] 88.6 fL Normal 79.4-94.8 [facility] Comment on above: Performed By: #### C BCD1 #### [facility] [address] [place], [place] [address] Monocytes/100 WBC (Bld) 2.6 % Normal [facility] Comment on above: Performed By: #### C BCD1 #### [facility] [address] [place], [place] [address] Nucleated RBC (Bld) [#/Vol] 0.09 thou/cmm High 0.00-0.01 [facility] Comment on above: Performed By: #### C BCD1 #### [facility] [address] [place], [place] [address] Nucleated RBC/100 WBC (Bld) [Ratio] 0.5 % High 0.0-0.2 [facility] Comment on above: Performed By: #### C BCD1 #### [facility] [address] [place] [address] Platelet mean volume (Bld) [Entitic vol] 12.6 fL High 9.4-12.3 [facility] Comment on above: Performed By: #### C BCD1 #### [facility] [address] [place] [address] Platelets (Bld) [#/Vol] 69 thou/cmm Low 182-369 [facility] Comment on above: Performed By: #### C BCD1 #### [facility] [address] [place] [address] RBC (Bld) [#/Vol] 2.71 mil/cmm Low 3.93-5.22 [facility] Comment on above: Performed By: #### C BCD1 #### [facility] [address] [place] [address] RDW SD 51.0 fl High 36.4-46.3 [facility] Comment on above: Performed By: #### C BCD1 #### [facility] [address] [place] [address] Seg Neutrophil 55.9 % Normal [facility] Comment on above: Performed By: #### C BCD1 #### [facility] [address] [place] [address] WBC (Bld) [#/Vol] 16.45 thou/cmm High 3.98-10.04 [facility] Comment on above: Performed By: #### C BCD1 #### [facility] [address] [place], [place] [address] Hgbon 07-26-2018 Hemoglobin (Bld) [Mass/Vol] 7.6 g/dL Low 11.2-15.7 [facility] Comment on above: Performed By: #### C BCD1 #### [facility] [address] [place], [place] [address] Hemoglobin (Bld) [Mass/Vol] 7.7 g/dL Low 11.2-15.7 [facility] Comment on above: Performed By: #### C BCD1 #### [facility] [address] [place], [place] [address] Lactic Acidon 07-26-2018 Lactate [Moles/Vol] 0.6 mmol/L Normal 0.4-2.0 [facility] Comment on above: Performed By: #### C BCD1 #### [facility] [address] [place], [place] [address] Lipase Bloodon 07-26-2018 Lipase Blood 350 U/L Normal 73-393 [facility] Comment on above: Performed By: #### C BCD1 #### [facility] [address] [place], [place] [address] Phosphorus Bloodon 9 Phosphate [Mass/Vol] 2.4 mg/dL Low 2.5-4.[address] [facility] Comment on above: Performed By: #### C BCD1 #### [facility] [address] [place], [place] [address] Triglyceride Bloodon 019 Triglyceride [Mass/Vol] 601 mg/dL High 0-149 [facility] Comment on above: Result Comment: < 20 0 Desirable Result invalid if not a fasting specimen. Performed By: #### C BCD1 #### [facility] [address] [place], [place] [address] Basic Panelon 07-25-2018 Creatinine [Mass/Vol] 2.33 mg/dL High 0.51-0.95 [facility] Comment on above: Performed By: #### C BCD1 #### [facility] [address] [place], [place] [address] Anion gap [Moles/Vol] 14 mmol/L Normal 8-16 [facility] Comment on above: Performed By: #### C BCD1 #### [facility] [address] [place], [place] [address] CO2 [Moles/Vol] 23 mmol/L Normal 21-32 [facility] Comment on above: Performed By: #### C BCD1 #### [facility] [address] [place], [place] [address] Urea nitrogen [Mass/Vol] 22 mg/dL High 7-18 [facility] Comment on above: Performed By: #### C BCD1 #### [facility] [address] [place], [place] [address] Calcium [Mass/Vol] 7.9 mg/dL Low 8.5-10.1 [facility] Comment on above: Performed By: #### C BCD1 #### [facility] [address] [place], [place] [address] Glucose [Mass/Vol] 119 mg/dL High 70-99 [facility] Comment on above: Performed By: #### C BCD1 #### [facility] [address] [place], [place] [address] Chloride [Moles/Vol] 106 mmol/L Normal 98-[address] [facility] Comment on above: Performed By: #### C BCD1 #### [facility] [address] [place], [place] [address] Potassium [Moles/Vol] 4.5 mmol/L Normal 3.5-5.1 [facility] Comment on above: Performed By: #### C BCD1 #### [facility] [address] [place], [place] [address] Sodium [Moles/Vol] 138 mmol/L Normal 136-145 [facility] Comment on above: Performed By: #### C BCD1 #### [facility] [address] [place], [place] [address] Blood Gas Arterialon 019 Base Excess -2.9 mmol/L Normal -3.0-3.0 [facility] Comment on above: Performed By: #### C BCD1 #### [facility] [address] [place] [address] HCO3 (Bld) [Moles/Vol] 21.3 mmol/L Normal 21.0-28.0 [facility] Comment on above: Performed By: #### C BCD1 #### [facility] [address] [place] [address] O2% Sat Arterial 95.9 % Low 96.0-100.0 [facility] Comment on above: Performed By: #### C BCD1 #### [facility] [address] [place] [address] PCO2 Arterial 36.7 mm Hg Normal 35.0-45.0 [facility] Comment on above: Performed By: #### C BCD1 #### [facility] [address] [place] [address] pH Arterial 7.381 Normal 7.350-7.450 [facility] Comment on above: Performed By: #### C BCD1 #### [facility] [address] [place] [address] PO2 Arterial 79.8 mm Hg Low 83.0-108.0 [facility] Comment on above: Performed By: #### C BCD1 #### [facility] [address] [place], [place] [address] FIO2 50 % Normal [facility] Comment on above: Performed By: #### C BCD1 #### [facility] [address] [place] [address] FIO2 60 % Normal [facility] Comment on above: Performed By: #### C BCD1 #### [facility] [address] [place] [address] Base Excess -5.2 mmol/L Low -3.0-3.0 [facility] Comment on above: Performed By: #### C BCD1 #### [facility] [address] [place] [address] HCO3 (Bld) [Moles/Vol] 19.8 mmol/L Low 21.0-28.0 [facility] Comment on above: Performed By: #### C BCD1 #### [facility] [facility] [place], [place] [address] O2% Sat Arterial 98.9 % Normal 96.0-100.0 [facility] Comment on above: Performed By: #### C BCD1 #### [facility] [address] [place], [place] [address] PCO2 Arterial 39.8 mm Hg Normal 35.0-45.0 [facility] Comment on above: Performed By: #### C BCD1 #### [facility] [address] [place], [place] [address] pH Arterial 7.318 Low 7.350-7.450 [facility] Comment on above: Performed By: #### C BCD1 #### [facility] [address] [place], [place] [address] PO2 Arterial 192.0 mm Hg High 83.0-108.0 [facility] Comment on above: Performed By: #### C BCD1 #### [facility] 1 [place] [address] Base Excess -5.7 mmol/L Low -3.0-3.0 [facility] Comment on above: Performed By: #### C BCD1 #### [facility] [address] [place], [place] [address] HCO3 (Bld) [Moles/Vol] 20.7 mmol/L Low 21.0-28.0 [facility] Comment on above: Performed By: #### C BCD1 #### [facility] [address] [place], [place] [address] O2% Sat Arterial 98.2 % Normal 96.0-100.0 [facility] Comment on above: Performed By: #### C BCD1 #### [facility] [address] [place], [place] [address] PCO2 Arterial 49.7 mm Hg High 35.0-45.0 [facility] Comment on above: Performed By: #### C BCD1 #### [facility] [address] [place], [place] [address] pH Arterial 7.244 Low 7.350-7.450 [facility] Comment on above: Performed By: #### C BCD1 #### [facility] 1 [place] [address] PO2 Arterial 126.0 mm Hg High 83.0-108.0 [facility] Comment on above: Performed By: #### C BCD1 #### [facility] [address] [place] [address] FIO2 60 % Normal [facility] Comment on above: Performed By: #### C BCD1 #### [facility] [address] [place] [address] CPKon 07-25-2018 CK [Catalytic activity/Vol] 177 U/L Normal 26-192 [facility] Comment on above: Performed By: #### C BCD1 #### [facility] [address] [place] [address] CK [Catalytic activity/Vol] 185 U/L Normal 26-192 [facility] Comment on above: Performed By: #### C BCD1 #### [facility] [address] [place] [address] Fecal Occult Bloodon 019 Fecal Occult Blood Negative Normal NEGATIVE [facility] Comment on above: Performed By: #### C BCD1 #### [facility] [address] [place] [address] Hemogram/Diffon 07-25-2018 Abs Neut (ANC) 11.82 thou/cmm High 1.56-6.13 [facility] Comment on above: Performed By: #### C BCD1 #### [facility] [address] [place] [address] Abs. Baso 0.00 thou/cmm Low 0.01-0.08 [facility] Comment on above: Performed By: #### C BCD1 #### [facility] [address] [place] [address] Abs. [place] 4.14 thou/cmm High 0.27-0.70 [facility] Comment on above: Performed By: #### C BCD1 #### [facility] [address] [place] [address] Basophils/100 WBC (Bld) 0.0 % Normal [facility] Comment on above: Performed By: #### C BCD1 #### [facility] [address] [place], [place] [address] Eosinophils (Bld) [#/Vol] 0.20 thou/cmm Normal 0.00-0.31 [facility] Comment on above: Performed By: #### C BCD1 #### [facility] [address] [place], [place] [address] Eosinophils/100 WBC (Bld) 1.0 % Normal [facility] Comment on above: Performed By: #### C BCD1 #### [facility] [address] [place], [place] [address] Lymphocytes (Bld) [#/Vol] 3.55 thou/cmm Normal 1.18-3.74 [facility] Comment on above: Performed By: #### C BCD1 #### [facility] [address] [place], [place] [address] Lymphocytes/100 WBC (Bld) 18.0 % Normal [facility] Comment on above: Performed By: #### C BCD1 #### [facility] [address] [place], [place] [address] Monocytes/100 WBC (Bld) 21.0 % Normal [facility] Comment on above: Performed By: #### C BCD1 #### [facility] [address] [place], [place] [address] Polychromasia Slight Normal [facility] Comment on above: Performed By: #### C BCD1 #### [facility] [address] [place], [place] [address] RBC morphology finding Nom (Bld) Present Normal [facility] Comment on above: Performed By: #### C BCD1 #### [facility] [address] [place], [place] [address] Seg Neutrophil 60.0 % Normal [facility] Comment on above: Performed By: #### C BCD1 #### [facility] [address] [place], [place] [address] Erythrocyte distribution width (RBC) [Ratio] 16.8 % High 11.7-14.4 [facility] Comment on above: Performed By: #### C BCD1 #### [facility] [address] [place], [place] [address] Hematocrit (Bld) [Volume fraction] 21.8 % Low 34.1-44.9 [facility] Comment on above: Performed By: #### C BCD1 #### [facility] [address] [place], [place] [address] Hemoglobin (Bld) [Mass/Vol] 6.9 g/dL Critically low 11.2-15.7 [facility] Comment on above: Performed By: #### C BCD1 #### [facility] [address] [place] [address] MCH (RBC) [Entitic mass] 28.9 pg Normal 25.6-32.2 [facility] Comment on above: Performed By: #### C BCD1 #### [facility] [address] [place] [address] MCHC (RBC) [Mass/Vol] 31.7 % Normal 31.6-34.8 [facility] Comment on above: Performed By: #### C BCD1 #### [facility] [address] [place] [address] MCV (RBC) [Entitic vol] 91.2 fL Normal 79.4-94.8 [facility] Comment on above: Performed By: #### C BCD1 #### [facility] [address] [place] [address] Nucleated RBC (Bld) [#/Vol] 0.04 thou/cmm High 0.00-0.01 [facility] Comment on above: Performed By: #### C BCD1 #### [facility] [address] [place], [place] [address] Nucleated RBC/100 WBC (Bld) [Ratio] 0.2 % Normal 0.0-0.2 [facility] Comment on above: Performed By: #### C BCD1 #### [facility] [address] [place], [place] [address] Platelet mean volume (Bld) [Entitic vol] 12.8 fL High 9.4-12.3 [facility] Comment on above: Performed By: #### C BCD1 #### [facility] [address] [place], [place] [address] Platelets (Bld) [#/Vol] 117 thou/cmm Low 182-369 [facility] Comment on above: Performed By: #### C BCD1 #### [facility] [address] [place] [address] RBC (Bld) [#/Vol] 2.39 mil/cmm Low 3.93-5.22 [facility] Comment on above: Performed By: #### C BCD1 #### [facility] [address] [place] [address] RDW SD 55.9 fl High 36.4-46.3 [facility] Comment on above: Performed By: #### C BCD1 #### [facility] [address] [place] [address] WBC (Bld) [#/Vol] 19.70 thou/cmm High 3.98-10.04 [facility] Comment on above: Performed By: #### C BCD1 #### [facility] [address] [place] [address] Hepatic Panelon 07-25-2018 ALP [Catalytic activity/Vol] 25 U/L Low 46-116 [facility] Comment on above: Performed By: #### C BCD1 #### [facility] [address] [place] [address] Bilirubin [Mass/Vol] 1.6 mg/dL High 0.2-1.[address] [facility] Comment on above: Performed By: #### C BCD1 #### [facility] [address] [place] [address] Protein [Mass/Vol] 6.0 g/dL Low 6.4-8.2 [facility] Comment on above: Performed By: #### C BCD1 #### [facility] [address] [place] [address] ALT [Catalytic activity/Vol] 32 U/L Normal 12-78 [facility] Comment on above: Performed By: #### C BCD1 #### [facility] [address] [place] [address] AST [Catalytic activity/Vol] 52 U/L High 9-37 [facility] Comment on above: Performed By: #### C BCD1 #### [facility] [address] [place], [place] [address] Bilirubin [Mass/Vol] 0.92 mg/dL High 0.00-0.[address] [facility] Comment on above: Performed By: #### C BCD1 #### [facility] [address] [place] [address] Albumin [Mass/Vol] 4.5 g/dL Normal 3.4-5.0 [facility] Comment on above: Performed By: #### C BCD1 #### [facility] [address] [place] [address] Hgbon 07-25-2018 Hemoglobin (Bld) [Mass/Vol] 7.2 g/dL Low 11.2-15.7 [facility] Comment on above: Performed By: #### C BCD1 #### [facility] [address] [place] [address] Hemoglobin (Bld) [Mass/Vol] 6.1 g/dL Critically low 11.2-15.7 [facility] Comment on above: Result Comment: Repe ated AND verified Performed By: #### C BCD1 #### [place] [address] Lactic Acidon 07-25-2018 Lactate [Moles/Vol] 0.8 mmol/L Normal 0.4-2.0 [facility] Comment on above: Performed By: #### C BCD1 #### [facility] [address] [place] [address] Lactate [Moles/Vol] 1.2 mmol/L Normal 0.4-2.0 [facility] Comment on above: Performed By: #### C BCD1 #### [facility] [address] [place], [place] [address] Lipase Bloodon 07-25-2018 Lipase Blood 284 U/L Normal 73-393 [facility] Comment on above: Performed By: #### C BCD1 #### [address] [address] Phosphorus Bloodon 9 Phosphate [Mass/Vol] 3.4 mg/dL Normal 2.5-4.[address] [facility] Comment on above: Performed By: #### C BCD1 #### [facility] [address] [place] [address] Protimeon 07-25-2018 INR Coag (PPP) [Relative time] 1.51 {INR} High 0.90-1.30 [facility] Comment on above: Result Comment: Celina min K Antagonist (VKA) Therapeutic Range: INR 2 to 3 (Target INR of 2.5) Note: For patients treated with VKA drugs, such as warfarin, the [place] [employer] 2012 Guideline recommends a therapeutic INR range of 2 to 3 (target INR of 2.5). This recommendation includes high-risk patients with antiphospholipid syndrome with previous arterial or venous thromboembolism, current-generation mechanical or bioprosthetic aortic heart valve replacement. VKA Therapeutic Range for some Mechanical Valve Replacement: INR 2.5 to 3.5 (Target INR of 3) Note: Patients with mechanical aortic valve replacement and additional risk factors for thromboembolic events (atrial fibrillation, previous thromboembolism, LV dysfunction, hypercoagulable conditions) or an older generation mechanical AVR (i.e., ball in-Cage) or any mechanical MVR should have a INR therapeutic range of 2.5 to 3.5 target INR of 3). Heidi GH, et al. Chest 2012; 141:7S-47S Miranda RA et al. JACC 2017; 70: 252-289 Performed By: #### C JANE #### [facility] [address] [place] [address] PT Coag (PPP) [Time] 15.2 s High 9.7-13.[address] [facility] Comment on above: Performed By: #### C ORESTESD1 #### [facility] [address] [place] [address] RBC Productson 07-25-2018 Xmatch Unit 1 see below Normal [facility] Comment on above: Result Comment: Comp atible Performed By: #### C BCMagali #### [facility] [address] [place] [address] Xmatch Unit 1 see below Normal [facility] Comment on above: Result Comment: Comp atible Performed By: #### C BCD1 #### [facility] [address] [place] [address] Triglyceride Bloodon 019 Triglyceride [Mass/Vol] 428 mg/dL High 0-149 [facility] Comment on above: Result Comment: < 20 0 Desirable Result invalid if not a fasting specimen. Performed By: #### C BCD1 #### [place] [address] Triglyceride [Mass/Vol] 476 mg/dL High 0-149 [facility] Comment on above: Result Comment: < 20 0 Desirable Result invalid if not a fasting specimen. Performed By: #### C BCD1 #### [place] [address] Type and Screenon 07-25-2018 ABO group Nom (Bld) O Normal [facility] Comment on above: Performed By: #### C BCD1 #### [place] [address] Comment See Below [facility] Comment on above: Result Comment: Scre en &/or Xmatch expires in 3 days at 12 midnight. Redraw patient at that time. Performed By: #### C BCD1 #### [place] [address] RH Type Positive Normal [facility] Comment on above: Performed By: #### C BCD1 #### [place] [address] Basic Panelon 07-24-2018 Urea nitrogen [Mass/Vol] 32 mg/dL High 7-18 [facility] Comment on above: Result Comment: RESU LT RECHECKED Performed By: #### A BG #### [place] [address] Creatinine [Mass/Vol] 3.32 mg/dL High 0.51-0.95 [facility] Comment on above: Performed By: #### A BG #### [place] [address] Anion gap [Moles/Vol] 12 mmol/L Normal 8-16 [facility] Comment on above: Performed By: #### A BG #### [facility] [address] [place], [place] [address] Calcium [Mass/Vol] 6.2 mg/dL Low 8.5-10.1 [facility] Comment on above: Performed By: #### A BG #### [facility] [address] [place], [place] [address] CO2 [Moles/Vol] 25 mmol/L Normal 21-32 [facility] Comment on above: Performed By: #### A BG #### [facility] [address] [place], [place] [address] Glucose [Mass/Vol] 129 mg/dL High 70-99 [facility] Comment on above: Performed By: #### A BG #### [facility] [address] [place], [place] [address] Chloride [Moles/Vol] 101 mmol/L Normal 98-[address] [facility] Comment on above: Performed By: #### A BG #### [facility] [address] [place], [place] [address] Potassium [Moles/Vol] 3.9 mmol/L Normal 3.5-5.1 [facility] Comment on above: Performed By: #### A BG #### [facility] [address] [place], [place] [address] Sodium [Moles/Vol] 134 mmol/L Low 136-145 [facility] Comment on above: Performed By: #### A BG #### [facility] [address] [place], [place] [address] Blood Gas Arterialon 019 Base Excess -2.2 mmol/L Normal -3.0-3.0 [facility] Comment on above: Performed By: #### A BG #### [facility] [address] [place], [place] [address] HCO3 (Bld) [Moles/Vol] 23.2 mmol/L Normal 21.0-28.0 [facility] Comment on above: Performed By: #### A BG #### [facility] [address] [place] [address] O2% Sat Arterial 97.4 % Normal 96.0-100.0 [facility] Comment on above: Performed By: #### A BG #### [facility] [address] [place] [address] PCO2 Arterial 50.1 mm Hg High 35.0-45.0 [facility] Comment on above: Performed By: #### A BG #### [facility] [address] [place] [address] pH Arterial 7.298 Low 7.350-7.450 [facility] Comment on above: Performed By: #### A BG #### [facility] [address] [place] [address] PO2 Arterial 204.0 mm Hg High 83.0-108.0 [facility] Comment on above: Performed By: #### A BG #### [facility] [address] [place] [address] FIO2 80 % Normal [facility] Comment on above: Performed By: #### A BG #### [facility] [address] [place] [address] C. difficile by PCRon 2018 C. difficile by PCR Test performed at [facility] NEGATIVE for Toxigenic C. difficile Normal [facility] Comment on above: Performed By: #### A BG #### [facility] [address] [place] [address] CPKon 07-24-2018 CK [Catalytic activity/Vol] 435 U/L High 26-192 [facility] Comment on above: Performed By: #### A BG #### [facility] [address] [place] [address] CK [Catalytic activity/Vol] 441 U/L High 26-192 [facility] Comment on above: Result Comment: SPEC IMEN SLIGHTLY HEMOLYZED Performed By: #### A BG #### [facility] [address] [place] [address] Cult Bloodon 07-24-2018 Cult Blood Test performed at [facility] No growth Normal [facility] Comment on above: Performed By: #### C BCD1 #### [facility] [address] [place] [address] Cult Blood Test performed at [facility] No growth Normal [facility] Comment on above: Performed By: #### C BCD1 #### [facility] [address] [place] [address] Cult and Smr Respiratoryon 0 07-24-2018 Cult and Smr Respiratory Test performed at [facility] Absence of normal oropharyngeal reynaldo Rare yeast Rare Polymorphonuclear leukocytes Few Mononuclear cells ORGANISM: *Yeast not Love albicans or Cryptococcus neoformans (ID: 1) Moderate Normal [facility] Comment on above: Performed By: #### A BG #### [place] [address] Hemogram/Diffon 07-24-2018 Abs Immature Grans 1.25 thou/cmm High 0.00-0.05 [facility] Comment on above: Performed By: #### A BG #### [place] [address] Abs Neut (ANC) 9.92 thou/cmm High 1.56-6.13 [facility] Comment on above: Performed By: #### A BG #### [place] [address] Abs. Baso 0.03 thou/cmm Normal 0.01-0.08 [facility] Comment on above: Result Comment: Smea r scanned; tech agrees with automated differential Performed By: #### A BG #### [place] [address] Abs. [place] 0.26 thou/cmm Low 0.27-0.70 [facility] Comment on above: Performed By: #### A BG #### [place] [address] Basophils/100 WBC (Bld) 0.2 % Normal [facility] Comment on above: Performed By: #### A BG #### [place] [address] Eosinophils (Bld) [#/Vol] 0.63 thou/cmm High 0.00-0.31 [facility] Comment on above: Performed By: #### A BG #### [facility] [address] [place], [place] [address] Eosinophils/100 WBC (Bld) 3.8 % Normal [facility] Comment on above: Performed By: #### A BG #### [facility] [address] [place], [place] [address] Immature Grans 7.60 % Normal [facility] Comment on above: Performed By: #### A BG #### [facility] [address] [place], [place] [address] Lymphocytes (Bld) [#/Vol] 4.41 thou/cmm High 1.18-3.74 [facility] Comment on above: Performed By: #### A BG #### [facility] [address] [place], [place] [address] Lymphocytes/100 WBC (Bld) 26.7 % Normal [facility] Comment on above: Performed By: #### A BG #### [facility] [address] [place], [place] [address] Monocytes/100 WBC (Bld) 1.6 % Normal [facility] Comment on above: Performed By: #### A BG #### [facility] [address] [place] [address] Seg Neutrophil 60.1 % Normal [facility] Comment on above: Performed By: #### A BG #### [facility] [address] [place] [address] Erythrocyte distribution width (RBC) [Ratio] 16.4 % High 11.7-14.4 [facility] Comment on above: Performed By: #### A BG #### [facility] [address] [place], [place] [address] Hematocrit (Bld) [Volume fraction] 24.9 % Low 34.1-44.9 [facility] Comment on above: Performed By: #### A BG #### [facility] [address] [place], [place] [address] Hemoglobin (Bld) [Mass/Vol] 9.0 g/dL Low 11.2-15.7 [facility] Comment on above: Performed By: #### A BG #### [facility] [address] [place], [place] [address] MCH (RBC) [Entitic mass] 32.1 pg Normal 25.6-32.2 [facility] Comment on above: Performed By: #### A BG #### [facility] [address] [place], [place] [address] MCHC (RBC) [Mass/Vol] 36.1 % High 31.6-34.8 [facility] Comment on above: Performed By: #### A BG #### [facility] [address] [place] [address] MCV (RBC) [Entitic vol] 88.9 fL Normal 79.4-94.8 [facility] Comment on above: Performed By: #### A BG #### [facility] [address] [place] [address] Nucleated RBC (Bld) [#/Vol] 0.04 thou/cmm High 0.00-0.01 [facility] Comment on above: Performed By: #### A BG #### [facility] [address] [place], [place] [address] Nucleated RBC/100 WBC (Bld) [Ratio] 0.2 % Normal 0.0-0.2 [facility] Comment on above: Performed By: #### A BG #### [facility] [address] [place], [place] [address] Platelet mean volume (Bld) [Entitic vol] 12.1 fL Normal 9.4-12.3 [facility] Comment on above: Performed By: #### A BG #### [facility] [address] [place], [place] [address] Platelets (Bld) [#/Vol] 151 thou/cmm Low 182-369 [facility] Comment on above: Performed By: #### A BG #### [facility] [address] [place], [place] [address] RBC (Bld) [#/Vol] 2.80 mil/cmm Low 3.93-5.22 [facility] Comment on above: Performed By: #### A BG #### [facility] [address] [place] [address] RDW SD 53.2 fl High 36.4-46.3 [facility] Comment on above: Performed By: #### A BG #### [place] [address] WBC (Bld) [#/Vol] 16.51 thou/cmm High 3.98-10.04 [facility] Comment on above: Performed By: #### A BG #### [place] [address] Hep B Core Ab,Totalon 2018 Hep B Core Ab,Total SEE BELOW Normal [facility] Comment on above: Result Comment: Hep B Core Ab,Total Negative NEGAT Performing Laboratory: [place] [address] [place] [address] Performed By: #### A BG #### [place] [address] Misc. Send Outon 07-24-2018 Lab Name/Address See below Normal [facility] Comment on above: Result Comment: Test ing performed at [facility] [place] [address] Performed By: #### A BG #### [place] [address] Result See below Normal [facility] Comment on above: Result Comment: Prot hrombin Time = 9.4 seconds Reference Range: 8.5-14.0 seconds INR = 1.0 Reference Range: 0.7-1.3 Activated PTT = 28.4 seconds Reference Range: 0.0-40.0 seconds Performed By: #### A BG #### [place] [address] Test Name PT PTT Normal [facility] Comment on above: Performed By: #### A BG #### [place] [address] Phosphorus Bloodon 9 Phosphate [Mass/Vol] 3.2 mg/dL Normal 2.5-4.[address] [facility] Comment on above: Performed By: #### A BG #### [address] [place], [place] [address] Triglyceride Bloodon 019 Triglyceride [Mass/Vol] 2375 mg/dL High 0-149 [facility] Comment on above: Result Comment: < 20 0 Desirable Result invalid if not a fasting specimen. Performed By: #### A BG #### [facility] [address] [place] [address] Triglyceride [Mass/Vol] 2356 mg/dL High 0-149 [facility] Comment on above: Result Comment: RESU LT RECHECKED < 200 Desirable Result invalid if not a fasting specimen. Performed By: #### A BG #### [place] [address] Troponin Ion 07-24-2018 Troponin I.cardiac [Mass/Vol] ng/mL Normal 0.015-0.045 [facility] Comment on above: Performed By: #### A BG #### [place] [address] Venous Blood Gason 9 Base Excess -4.3 mmol/L Low -3.0-3.0 [facility] Comment on above: Performed By: #### A BG #### [place] [address] HCO3 (Bld) [Moles/Vol] 22.6 mmol/L Normal 21.0-30.0 [facility] Comment on above: Performed By: #### A BG #### [place] [address] O2% Sat Venous 71.0 % Normal 18.0-74.8 [facility] Comment on above: Performed By: #### A BG #### [place] [address] PCO2 Venous 54.3 mm Hg Normal 40.6-60.0 [facility] Comment on above: Performed By: #### A BG #### [place] [address] pH Venous 7.242 Low 7.320-7.430 [facility] Comment on above: Performed By: #### A BG #### [facility] [address] [place], [place] [address] PO2 Venous 46.9 mm Hg High 15.9-37.5 [facility] Comment on above: Performed By: #### A BG #### [facility] [address] [place], [place] [address] Basic Panelon 07-23-2018 Glucose [Mass/Vol] 105 mg/dL High 70-99 [facility] Comment on above: Performed By: #### L AC #### [facility] [address] [place], [place] [address] Urea nitrogen [Mass/Vol] 52 mg/dL High 7-18 [facility] Comment on above: Performed By: #### L AC #### [facility] [address] [place], [place] [address] Creatinine [Mass/Vol] 4.40 mg/dL High 0.51-0.95 [facility] Comment on above: Performed By: #### L AC #### [facility] [address] [place], [place] [address] Anion gap [Moles/Vol] 12 mmol/L Normal 8-16 [facility] Comment on above: Performed By: #### L AC #### [facility] [address] [place], [place] [address] CO2 [Moles/Vol] 25 mmol/L Normal 21-32 [facility] Comment on above: Performed By: #### L AC #### [facility] [address] [place], [place] [address] Calcium [Mass/Vol] 6.3 mg/dL Low 8.5-10.1 [facility] Comment on above: Performed By: #### L AC #### [facility] [address] [place], [place] [address] Chloride [Moles/Vol] 99 mmol/L Normal 98-[address] [facility] Comment on above: Performed By: #### L AC #### [facility] [address] [place], [place] [address] Potassium [Moles/Vol] 4.1 mmol/L Normal 3.5-5.1 [facility] Comment on above: Performed By: #### L AC #### [facility] [address] [place], [place] [address] Sodium [Moles/Vol] 132 mmol/L Low 136-145 [facility] Comment on above: Performed By: #### L AC #### [facility] [address] [place], [place] [address] Blood Gas Arterialon 07-23-2 019 FIO2 60.0 % Normal [facility] Comment on above: Performed By: #### A BG #### [facility] [address] [place] [address] Base Excess -2.7 mmol/L Normal -3.0-3.0 [facility] Comment on above: Performed By: #### A BG #### [facility] [address] [place] [address] HCO3 (Bld) [Moles/Vol] 21.9 mmol/L Normal 21.0-28.0 [facility] Comment on above: Performed By: #### A BG #### [facility] [address] [place] [address] O2% Sat Arterial 96.1 % Normal 96.0-100.0 [facility] Comment on above: Performed By: #### A BG #### [facility] [address] [place] [address] PCO2 Arterial 39.3 mm Hg Normal 35.0-45.0 [facility] Comment on above: Performed By: #### A BG #### [facility] [address] [place] [address] pH Arterial 7.364 Normal 7.350-7.450 [facility] Comment on above: Performed By: #### A BG #### [facility] [address] [place] [address] PO2 Arterial 113.0 mm Hg High 83.0-108.0 [facility] Comment on above: Performed By: #### A BG #### [facility] [address] [place] [address] Base Excess -3.8 mmol/L Low -3.0-3.0 [facility] Comment on above: Performed By: #### A BG #### [facility] [address] [place] [address] HCO3 (Bld) [Moles/Vol] 22.2 mmol/L Normal 21.0-28.0 [facility] Comment on above: Performed By: #### A BG #### [facility] [address] [place] [address] O2% Sat Arterial 94.2 % Low 96.0-100.0 [facility] Comment on above: Performed By: #### A BG #### [facility] [address] [place] [address] PCO2 Arterial 48.1 mm Hg High 35.0-45.0 [facility] Comment on above: Performed By: #### A BG #### [place] [address] pH Arterial 7.286 Low 7.350-7.450 [facility] Comment on above: Performed By: #### A BG #### [place] [address] PO2 Arterial 93.2 mm Hg Normal 83.0-108.0 [facility] Comment on above: Performed By: #### A BG #### [place] [address] FIO2 60 % Normal [facility] Comment on above: Performed By: #### A BG #### [place] [address] Hemogram/Diffon 07-23-2018 Abs Immature Grans 1.56 thou/cmm High 0.00-0.05 [facility] Comment on above: Performed By: #### L AC #### [place] [address] Abs Neut (ANC) 10.31 thou/cmm High 1.56-6.13 [facility] Comment on above: Performed By: #### L AC #### [place] [address] Abs. Baso 0.07 thou/cmm Normal 0.01-0.08 [facility] Comment on above: Result Comment: Smea r scanned; tech agrees with automated differential Performed By: #### L AC #### [facility] [address] [place], [place] [address] Abs. [place] 0.36 thou/cmm Normal 0.27-0.70 [facility] Comment on above: Performed By: #### L AC #### [facility] [address] [place], [place] [address] Basophils/100 WBC (Bld) 0.4 % Normal [facility] Comment on above: Performed By: #### L AC #### [facility] [address] [place], [place] [address] Eosinophils (Bld) [#/Vol] 0.54 thou/cmm High 0.00-0.31 [facility] Comment on above: Performed By: #### L AC #### [facility] [address] [place], [place] [address] Eosinophils/100 WBC (Bld) 3.2 % Normal [facility] Comment on above: Performed By: #### L AC #### [facility] [address] [place] [address] Immature Grans 9.20 % Normal [facility] Comment on above: Performed By: #### L AC #### [address] [address] Lymphocytes (Bld) [#/Vol] 4.14 thou/cmm High 1.18-3.74 [facility] Comment on above: Performed By: #### L AC #### [facility] [address] [place], [place] [address] Lymphocytes/100 WBC (Bld) 24.4 % Normal [facility] Comment on above: Performed By: #### L AC #### [facility] [address] [place], [place] [address] Monocytes/100 WBC (Bld) 2.1 % Normal [facility] Comment on above: Performed By: #### L AC #### [address] [address] Seg Neutrophil 60.7 % Normal [facility] Comment on above: Performed By: #### L AC #### [facility] [address] [place], [place] [address] Erythrocyte distribution width (RBC) [Ratio] 16.1 % High 11.7-14.4 [facility] Comment on above: Performed By: #### L AC #### [facility] [address] [place], [place] [address] Hematocrit (Bld) [Volume fraction] 27.9 % Low 34.1-44.9 [facility] Comment on above: Performed By: #### L AC #### [facility] [address] [place] [address] Hemoglobin (Bld) [Mass/Vol] 10.0 g/dL Low 11.2-15.7 [facility] Comment on above: Performed By: #### L AC #### [facility] [address] [place] [address] MCH (RBC) [Entitic mass] 31.4 pg Normal 25.6-32.2 [facility] Comment on above: Performed By: #### L AC #### [facility] [address] [place] [address] MCHC (RBC) [Mass/Vol] 35.8 % High 31.6-34.8 [facility] Comment on above: Performed By: #### L AC #### [place] [address] MCV (RBC) [Entitic vol] 87.7 fL Normal 79.4-94.8 [facility] Comment on above: Performed By: #### L AC #### [facility] [address] [place], [place] [address] Nucleated RBC (Bld) [#/Vol] 0.03 thou/cmm High 0.00-0.01 [facility] Comment on above: Performed By: #### L AC #### [facility] [address] [place], [place] [address] Nucleated RBC/100 WBC (Bld) [Ratio] 0.2 % Normal 0.0-0.2 [facility] Comment on above: Performed By: #### L AC #### [address] [address] Platelet mean volume (Bld) [Entitic vol] 11.5 fL Normal 9.4-12.3 [facility] Comment on above: Performed By: #### L AC #### [facility] [address] [place] [address] Platelets (Bld) [#/Vol] 152 thou/cmm Low 182-369 [facility] Comment on above: Performed By: #### L AC #### [facility] [address] [place] [address] RBC (Bld) [#/Vol] 3.18 mil/cmm Low 3.93-5.22 [facility] Comment on above: Performed By: #### L AC #### [place] [address] RDW SD 51.9 fl High 36.4-46.3 [facility] Comment on above: Performed By: #### L AC #### [facility] [address] [place] [address] WBC (Bld) [#/Vol] 16.98 thou/cmm High 3.98-10.04 [facility] Comment on above: Performed By: #### L AC #### [place] [address] Hep. B Surface Abon 07-24-19 19 Hep. B Surface Ab < 3.1 Normal [facility] Comment on above: Result Comment: Hep B. Antibody < 10.0 mIU/mL is negative. Hep B. Antibody > or = 10.0 mIU/mL is positive. Performed By: #### A BG #### [facility] [address] [place] [address] Hep. B Surface Agon 07-24-19 19 Hep.B Surface Ag Negative Normal Negative [facility] Comment on above: Performed By: #### A BG #### [facility] [address] [place] [address] Lipase Bloodon 07-23-2018 Lipase Blood 550 U/L High 73-393 [facility] Comment on above: Performed By: #### A BG #### [address] [place], [place] [address] Phosphorus Bloodon 9 Phosphate [Mass/Vol] 5.0 mg/dL High 2.5-4.[address] [facility] Comment on above: Performed By: #### A BG #### [facility] [address] [place], [place] [address] Basic Panelon 07-22-2018 Glucose [Mass/Vol] 113 mg/dL High 70-99 [facility] Comment on above: Performed By: #### L AC #### [facility] [address] [place], [place] [address] Urea nitrogen [Mass/Vol] 89 mg/dL High 7-18 [facility] Comment on above: Performed By: #### L AC #### [facility] [address] [place], [place] [address] Creatinine [Mass/Vol] 7.24 mg/dL High 0.51-0.95 [facility] Comment on above: Performed By: #### L AC #### [facility] [address] [place], [place] [address] Anion gap [Moles/Vol] 21 mmol/L High 8-16 [facility] Comment on above: Performed By: #### L AC #### [facility] [address] [place], [place] [address] Calcium [Mass/Vol] 6.0 mg/dL Low 8.5-10.1 [facility] Comment on above: Performed By: #### L AC #### [facility] [address] [place], [place] [address] CO2 [Moles/Vol] 20 mmol/L Low 21-32 [facility] Comment on above: Performed By: #### L AC #### [facility] [address] [place], [place] [address] Chloride [Moles/Vol] 96 mmol/L Low 98-[address] [facility] Comment on above: Performed By: #### L AC #### [facility] [address] [place], [place] [address] Potassium [Moles/Vol] 3.6 mmol/L Normal 3.5-5.1 [facility] Comment on above: Performed By: #### L AC #### [facility] [address] [place], [place] [address] Sodium [Moles/Vol] 133 mmol/L Low 136-145 [facility] Comment on above: Performed By: #### L AC #### [facility] [address] [place], [place] [address] Blood Gas Arterialon 019 FIO2 60 % Normal [facility] Comment on above: Performed By: #### L AC #### [facility] [address] [place] [address] Base Excess -2.3 mmol/L Normal -3.0-3.0 [facility] Comment on above: Performed By: #### L AC #### [facility] [address] [place] [address] HCO3 (Bld) [Moles/Vol] 22.3 mmol/L Normal 21.0-28.0 [facility] Comment on above: Performed By: #### L AC #### [facility] [address] [place] [address] O2% Sat Arterial 93.9 % Low 96.0-100.0 [facility] Comment on above: Performed By: #### L AC #### [facility] [address] [place], [place] [address] PCO2 Arterial 39.6 mm Hg Normal 35.0-45.0 [facility] Comment on above: Performed By: #### L AC #### [facility] [address] [place] [address] pH Arterial 7.368 Normal 7.350-7.450 [facility] Comment on above: Performed By: #### L AC #### [facility] [address] [place], [place] [address] PO2 Arterial 77.1 mm Hg Low 83.0-108.0 [facility] Comment on above: Performed By: #### L AC #### [facility] [address] [place], [place] [address] Glucose Bloodon 07-22-2018 Glucose [Mass/Vol] 146 mg/dL High 70-99 [facility] Comment on above: Performed By: #### L AC #### [facility] [address] [place] [address] Hemogram/Diffon 07-22-2018 Interpreted by See below Normal [facility] Comment on above: Result Comment: Maynor Bowers M.D., Pathologist Performed By: #### L AC #### [facility] [address] [place] [address] Abs Neut (ANC) 7.22 thou/cmm High 1.56-6.13 [facility] Comment on above: Performed By: #### L AC #### [place] [address] Abs. Baso 0.00 thou/cmm Low 0.01-0.08 [facility] Comment on above: Performed By: #### L AC #### [place] [address] Abs. [place] 1.73 thou/cmm High 0.27-0.70 [facility] Comment on above: Performed By: #### L AC #### [address] [address] Basophils/100 WBC (Bld) 0.0 % Normal A [facility] Comment on above: Performed By: #### L AC #### [address] [address] Eosinophils (Bld) [#/Vol] 1.30 thou/cmm High 0.00-0.31 [facility] Comment on above: Performed By: #### L AC #### [place] [address] Eosinophils/100 WBC (Bld) 9.0 % Normal [facility] Comment on above: Performed By: #### L AC #### [place] [address] Immat Grans Abs calc 1.00 thou/cmm High 0.00-0.05 A [facility] Comment on above: Performed By: #### L AC #### [place] [address] Lymphocytes (Bld) [#/Vol] 3.18 thou/cmm Normal 1.18-3.74 [facility] Comment on above: Performed By: #### L AC #### [facility] [address] [place], [place] [address] Lymphocytes/100 WBC (Bld) 22.0 % Normal [facility] Comment on above: Performed By: #### L AC #### [facility] [address] [place], [place] [address] Metamyelocytes 6.0 % Normal [facility] Comment on above: Performed By: #### L AC #### [facility] [address] [place], [place] [address] Metamyelocytes/100 WBC (Bld) 1.0 % Normal [facility] Comment on above: Performed By: #### L AC #### [facility] [address] [place], [place] [address] Monocytes/100 WBC (Bld) 12.0 % Normal [facility] Comment on above: Performed By: #### L AC #### [facility] [address] [place], [place] [address] Nucleated RBC/100 WBC (Bld) [Ratio] 1.0 /100 WBC Normal [facility] Comment on above: Performed By: #### L AC #### [facility] [address] [place], [place] [address] Polychromasia Slight Normal [facility] Comment on above: Performed By: #### L AC #### [facility] [address] [place], [place] [address] RBC morphology finding Nom (Bld) Present Normal [facility] Comment on above: Performed By: #### L AC #### [facility] [address] [place], [place] [address] Seg Neutrophil 50.0 % Normal [facility] Comment on above: Performed By: #### L AC #### [facility] [address] [place], [place] [address] Erythrocyte distribution width (RBC) [Ratio] 15.7 % High 11.7-14.4 [facility] Comment on above: Performed By: #### L AC #### [facility] [address] [place], [place] [address] Hematocrit (Bld) [Volume fraction] 26.1 % Low 34.1-44.9 [facility] Comment on above: Performed By: #### L AC #### [facility] [address] [place], [place] [address] Hemoglobin (Bld) [Mass/Vol] 9.5 g/dL Low 11.2-15.7 [facility] Comment on above: Performed By: #### L AC #### [facility] [address] [place] [address] MCH (RBC) [Entitic mass] 31.4 pg Normal 25.6-32.2 [facility] Comment on above: Performed By: #### L AC #### [facility] [address] [place] [address] MCHC (RBC) [Mass/Vol] 36.4 % High 31.6-34.8 [facility] Comment on above: Performed By: #### L AC #### [facility] [address] [place] [address] MCV (RBC) [Entitic vol] 86.1 fL Normal 79.4-94.8 [facility] Comment on above: Performed By: #### L AC #### [facility] [address] [place] [address] Nucleated RBC (Bld) [#/Vol] 0.09 thou/cmm High 0.00-0.01 [facility] Comment on above: Performed By: #### L AC #### [facility] [address] [place] [address] Nucleated RBC/100 WBC (Bld) [Ratio] 0.6 % High 0.0-0.2 [facility] Comment on above: Performed By: #### L AC #### [facility] [address] [place], [place] [address] Platelet mean volume (Bld) [Entitic vol] 11.2 fL Normal 9.4-12.3 [facility] Comment on above: Performed By: #### L AC #### [facility] [address] [place] [address] Platelets (Bld) [#/Vol] 151 thou/cmm Low 182-369 [facility] Comment on above: Performed By: #### L AC #### [facility] [address] [place] [address] RBC (Bld) [#/Vol] 3.03 mil/cmm Low 3.93-5.22 [facility] Comment on above: Performed By: #### L AC #### [facility] [address] [place] [address] RDW SD 48.6 fl High 36.4-46.3 [facility] Comment on above: Performed By: #### L AC #### [facility] [address] [place] [address] WBC (Bld) [#/Vol] 14.44 thou/cmm High 3.98-10.04 [facility] Comment on above: Performed By: #### L AC #### [place] [address] Hepatic Panelon 07-22-2018 Protein [Mass/Vol] 5.0 g/dL Low 6.4-8.2 [facility] Comment on above: Result Comment: Georgette alma rosa specimen treated with LipoClear. Total protein may show up to 14% negative bias. Performed By: #### L AC #### [facility] [address] [place] [address] ALT [Catalytic activity/Vol] 163 U/L High 12-78 [facility] Comment on above: Performed By: #### L AC #### [facility] [address] [place] [address] AST [Catalytic activity/Vol] 88 U/L High 9-37 [facility] Comment on above: Performed By: #### L AC #### [facility] [address] [place] [address] ALP [Catalytic activity/Vol] 72 U/L Normal 46-116 [facility] Comment on above: Performed By: #### L AC #### [place] [address] Bilirubin [Mass/Vol] 1.4 mg/dL High 0.2-1.[address] [facility] Comment on above: Performed By: #### L AC #### [facility] [address] [place], [place] [address] Bilirubin [Mass/Vol] 0.73 mg/dL High 0.00-0.[address] [facility] Comment on above: Performed By: #### L AC #### [facility] [address] [place], [place] [address] Albumin [Mass/Vol] 1.8 g/dL Low 3.4-5.0 [facility] Comment on above: Performed By: #### L AC #### [facility] [address] [place], [place] [address] Triglyceride Bloodon 019 Triglyceride [Mass/Vol] 2288 mg/dL High 0-149 [facility] Comment on above: Result Comment: < 20 0 Desirable Result invalid if not a fasting specimen. Performed By: #### L AC #### [address] [address] Basic Panelon 07-21-2018 Urea nitrogen [Mass/Vol] 92 mg/dL High 7-18 [facility] Comment on above: Performed By: #### L AC #### [address] [address] Glucose [Mass/Vol] 114 mg/dL High 70-99 [facility] Comment on above: Performed By: #### L AC #### [address] [address] Creatinine [Mass/Vol] 6.79 mg/dL High 0.51-0.95 [facility] Comment on above: Performed By: #### L AC #### [facility] [address] [place], [place] [address] Anion gap [Moles/Vol] 19 mmol/L High 8-16 [facility] Comment on above: Performed By: #### L AC #### [address] [address] Calcium [Mass/Vol] 6.3 mg/dL Low 8.5-10.1 [facility] Comment on above: Performed By: #### L AC #### [facility] [address] [place], [place] [address] CO2 [Moles/Vol] 18 mmol/L Low 21-32 [facility] Comment on above: Performed By: #### L AC #### [facility] [address] [place], [place] [address] Chloride [Moles/Vol] 99 mmol/L Normal 98-[address] [facility] Comment on above: Performed By: #### L AC #### [facility] [address] [place], [place] [address] Potassium [Moles/Vol] 4.2 mmol/L Normal 3.5-5.1 [facility] Comment on above: Performed By: #### L AC #### [facility] [address] [place], [place] [address] Sodium [Moles/Vol] 132 mmol/L Low 136-145 [facility] Comment on above: Performed By: #### L AC #### [facility] [address] [place], [place] [address] Glucose [Mass/Vol] 107 mg/dL High 70-99 [facility] Comment on above: Performed By: #### G FR #### [facility] [address] [place], [place] [address] Urea nitrogen [Mass/Vol] 86 mg/dL High 7-18 [facility] Comment on above: Performed By: #### G FR #### [facility] [address] [place], [place] [address] Creatinine [Mass/Vol] 6.56 mg/dL High 0.51-0.95 [facility] Comment on above: Performed By: #### G FR #### [facility] [address] [place], [place] [address] Anion gap [Moles/Vol] 19 mmol/L High 8-16 [facility] Comment on above: Performed By: #### G FR #### [facility] [address] [place], [place] [address] CO2 [Moles/Vol] 17 mmol/L Low 21-32 [facility] Comment on above: Performed By: #### G FR #### [facility] [address] [place], [place] [address] Calcium [Mass/Vol] 6.3 mg/dL Low 8.5-10.1 [facility] Comment on above: Performed By: #### G FR #### [facility] [address] [place], [place] [address] Chloride [Moles/Vol] 98 mmol/L Normal 98-[address] [facility] Comment on above: Performed By: #### G FR #### [facility] [address] [place], [place] [address] Potassium [Moles/Vol] 4.3 mmol/L Normal 3.5-5.1 [facility] Comment on above: Performed By: #### G FR #### [facility] [address] [place], [place] [address] Sodium [Moles/Vol] 130 mmol/L Low 136-145 [facility] Comment on above: Performed By: #### G FR #### [facility] [address] [place] [address] Blood Gas Arterialon 07-21-2 019 FIO2 45 % Normal [facility] Comment on above: Performed By: #### G FR #### [facility] [address] [place], [place] [address] Base Excess -11.2 mmol/L Low -3.0-3.0 [facility] Comment on above: Performed By: #### G FR #### [facility] [address] [place], [place] [address] HCO3 (Bld) [Moles/Vol] 14.8 mmol/L Low 21.0-28.0 [facility] Comment on above: Performed By: #### G FR #### [facility] [address] [place], [place] [address] O2% Sat Arterial 95.5 % Low 96.0-100.0 [facility] Comment on above: Performed By: #### G FR #### [facility] [address] [place], [place] [address] PCO2 Arterial 35.3 mm Hg Normal 35.0-45.0 [facility] Comment on above: Performed By: #### G FR #### [facility] [address] [place] [address] pH Arterial 7.245 Low 7.350-7.450 [facility] Comment on above: Performed By: #### G FR #### [facility] [address] [place] [address] PO2 Arterial 94.5 mm Hg Normal 83.0-108.0 [facility] Comment on above: Performed By: #### G FR #### [facility] [address] [place] [address] Chloride,Urineon 07-21-2018 Chloride,Urine < 10 Low 110-250 [facility] Comment on above: Performed By: #### G FR #### [facility] [address] [place] [address] Creatinine,Urineon 9 Creatinine,Urine 104.0 mg/dL Normal [facility] Comment on above: Performed By: #### G FR #### [place] [address] Hemogram/Diffon 07-21-2018 Abs Neut (ANC) 11.33 thou/cmm High 1.56-6.13 [facility] Comment on above: Performed By: #### G FR #### [facility] [address] [place] [address] Abs. Baso 0.00 thou/cmm Low 0.01-0.08 [facility] Comment on above: Performed By: #### G FR #### [facility] [address] [place] [address] Abs. [place] 0.19 thou/cmm Low 0.27-0.70 [facility] Comment on above: Performed By: #### G FR #### [facility] [address] [place] [address] Anisocytosis Ql (Bld) Few Normal [facility] Comment on above: Performed By: #### G FR #### [place] [address] Basophils/100 WBC (Bld) 0.0 % Normal [facility] Comment on above: Performed By: #### G FR #### [facility] [address] [place], [place] [address] Eosinophils (Bld) [#/Vol] 1.13 thou/cmm High 0.00-0.31 [facility] Comment on above: Performed By: #### G FR #### [facility] [address] [place], [place] [address] Eosinophils/100 WBC (Bld) 6.0 % Normal [facility] Comment on above: Performed By: #### G FR #### [facility] [address] [place], [place] [address] Immat Grans Abs calc 1.30 thou/cmm High 0.00-0.05 [facility] Comment on above: Performed By: #### G FR #### [facility] [address] [place], [place] [address] Lymphocytes (Bld) [#/Vol] 4.91 thou/cmm High 1.18-3.74 [facility] Comment on above: Performed By: #### G FR #### [facility] [address] [place], [place] [address] Lymphocytes/100 WBC (Bld) 26.0 % Normal [facility] Comment on above: Performed By: #### G FR #### [facility] [address] [place], [place] [address] Metamyelocytes 4.0 % Normal [facility] Comment on above: Performed By: #### G FR #### [facility] [address] [place], [place] [address] Metamyelocytes/100 WBC (Bld) 3.0 % Normal [facility] Comment on above: Performed By: #### G FR #### [facility] [address] [place], [place] [address] Monocytes/100 WBC (Bld) 1.0 % Normal [facility] Comment on above: Performed By: #### G FR #### [facility] [address] [place], [place] [address] Nucleated RBC/100 WBC (Bld) [Ratio] 6.0 /100 WBC Normal [facility] Comment on above: Performed By: #### G FR #### [facility] [address] [place] [address] Polychromasia Few Normal [facility] Comment on above: Performed By: #### G FR #### [facility] [address] [place] [address] RBC morphology finding Nom (Bld) Present Normal [facility] Comment on above: Performed By: #### G FR #### [facility] [address] [place] [address] Seg Neutrophil 60.0 % Normal [facility] Comment on above: Performed By: #### G FR #### [facility] [address] [place] [address] Erythrocyte distribution width (RBC) [Ratio] 16.0 % High 11.7-14.4 [facility] Comment on above: Performed By: #### G FR #### [facility] [address] [place] [address] Hematocrit (Bld) [Volume fraction] 30.3 % Low 34.1-44.9 [facility] Comment on above: Performed By: #### G FR #### [facility] [address] [place] [address] Hemoglobin (Bld) [Mass/Vol] 10.8 g/dL Low 11.2-15.7 [facility] Comment on above: Performed By: #### G FR #### [facility] [address] [place] [address] MCH (RBC) [Entitic mass] 31.4 pg Normal 25.6-32.2 [facility] Comment on above: Performed By: #### G FR #### [facility] [address] [place] [address] MCHC (RBC) [Mass/Vol] 35.6 % High 31.6-34.8 [facility] Comment on above: Performed By: #### G FR #### [facility] [address] [place] [address] MCV (RBC) [Entitic vol] 88.1 fL Normal 79.4-94.8 [facility] Comment on above: Performed By: #### G FR #### [facility] [address] [place], [place] [address] Nucleated RBC (Bld) [#/Vol] 0.06 thou/cmm High 0.00-0.01 [facility] Comment on above: Performed By: #### G FR #### [facility] [address] [place], [place] [address] Nucleated RBC/100 WBC (Bld) [Ratio] 0.3 % High 0.0-0.2 [facility] Comment on above: Performed By: #### G FR #### [facility] [address] [place], [place] [address] Platelet mean volume (Bld) [Entitic vol] 11.1 fL Normal 9.4-12.3 [facility] Comment on above: Performed By: #### G FR #### [facility] [address] [place], [place] [address] Platelets (Bld) [#/Vol] 149 thou/cmm Low 182-369 [facility] Comment on above: Performed By: #### G FR #### [facility] [address] [place], [place] [address] RBC (Bld) [#/Vol] 3.44 mil/cmm Low 3.93-5.22 [facility] Comment on above: Performed By: #### G FR #### [facility] [address] [place] [address] RDW SD 50.9 fl High 36.4-46.3 [facility] Comment on above: Performed By: #### G FR #### [facility] [address] [place], [place] [address] WBC (Bld) [#/Vol] 18.89 thou/cmm High 3.98-10.04 [facility] Comment on above: Performed By: #### G FR #### [facility] [address] [place] [address] Sodium,Urineon 07-21-2018 Sodium (U) [Moles/Vol] 24 mmol/L Normal [facility] Comment on above: Performed By: #### G FR #### [facility] [address] [place], [place] [address] Venous Blood Gason 9 Base Excess -6.9 mmol/L Low -3.0-3.0 [facility] Comment on above: Performed By: #### L AC #### [facility] [address] [place] [address] HCO3 (Bld) [Moles/Vol] 18.9 mmol/L Low 21.0-30.0 [facility] Comment on above: Performed By: #### L AC #### [facility] [address] [place] [address] O2% Sat Venous 73.3 % Normal 18.0-74.8 [facility] Comment on above: Performed By: #### L AC #### [place] [address] PCO2 Venous 43.7 mm Hg Normal 40.6-60.0 [facility] Comment on above: Performed By: #### L AC #### [facility] [address] [place] [address] pH Venous 7.266 Low 7.320-7.430 [facility] Comment on above: Performed By: #### L AC #### [place] [address] PO2 Venous 48.8 mm Hg High 15.9-37.5 [facility] Comment on above: Performed By: #### L AC #### [place] [address] Basic Panelon 07-20-2018 Urea nitrogen [Mass/Vol] 74 mg/dL High 7-18 [facility] Comment on above: Result Comment: dwight ected report called to LP CORRECTED: Previous result = 28, verified at 07:14 on 07/20/18. Performed By: #### T ROP #### [place] [address] Creatinine [Mass/Vol] 5.18 mg/dL High 0.51-0.95 [facility] Comment on above: Performed By: #### T ROP #### [address] [address] Glucose [Mass/Vol] 127 mg/dL High 70-99 [facility] Comment on above: Performed By: #### T ROP #### [facility] [address] [place], [place] [address] Anion gap [Moles/Vol] 18 mmol/L High 8-16 [facility] Comment on above: Performed By: #### T ROP #### [facility] [address] [place], [place] [address] Calcium [Mass/Vol] 6.2 mg/dL Low 8.5-10.1 [facility] Comment on above: Performed By: #### T ROP #### [facility] [address] [place], [place] [address] CO2 [Moles/Vol] 20 mmol/L Low 21-32 [facility] Comment on above: Performed By: #### T ROP #### [address] [address] Chloride [Moles/Vol] 98 mmol/L Normal 98-[address] [facility] Comment on above: Performed By: #### T ROP #### [address] [address] Potassium [Moles/Vol] 3.6 mmol/L Normal 3.5-5.1 [facility] Comment on above: Performed By: #### T ROP #### [address] [address] Sodium [Moles/Vol] 132 mmol/L Low 136-145 [facility] Comment on above: Performed By: #### T ROP #### [facility] [address] [place], [place] [address] Blood Gas Arterialon 019 Base Excess -7.8 mmol/L Low -3.0-3.0 [facility] Comment on above: Performed By: #### G FR #### [facility] [address] [place], [place] [address] HCO3 (Bld) [Moles/Vol] 17.4 mmol/L Low 21.0-28.0 [facility] Comment on above: Performed By: #### G FR #### [facility] [address] [place] [address] O2% Sat Arterial 96.7 % Normal 96.0-100.0 [facility] Comment on above: Performed By: #### G FR #### [facility] [address] [place] [address] PCO2 Arterial 36.5 mm Hg Normal 35.0-45.0 [facility] Comment on above: Performed By: #### G FR #### [facility] [address] [place] [address] pH Arterial 7.300 Low 7.350-7.450 [facility] Comment on above: Performed By: #### G FR #### [facility] [address] [place] [address] PO2 Arterial 97.5 mm Hg Normal 83.0-108.0 [facility] Comment on above: Performed By: #### G FR #### [facility] [address] [place] [address] FIO2 40 % Normal [facility] Comment on above: Performed By: #### G FR #### [place] [address] Hemogram/Diffon 07-20-2018 Abs. Baso 0.00 thou/cmm Low 0.01-0.08 [facility] Comment on above: Performed By: #### T ROP #### [place] [address] Abs. [place] 0.38 thou/cmm Normal 0.27-0.70 [facility] Comment on above: Performed By: #### T ROP #### [place] [address] Abs. Neut (ANC) 7.94 thou/cmm High 1.56-6.13 [facility] Comment on above: Performed By: #### T ROP #### [place] [address] Anisocytosis Ql (Bld) Moderate Normal [facility] Comment on above: Performed By: #### T ROP #### [address] [place] [address] Basophils/100 WBC (Bld) 0.0 % Normal [facility] Comment on above: Performed By: #### T ROP #### [facility] [address] [place], [place] [address] Eosinophils (Bld) [#/Vol] 0.38 thou/cmm High 0.00-0.31 [facility] Comment on above: Performed By: #### T ROP #### [facility] [address] [place], [place] [address] Eosinophils/100 WBC (Bld) 3.0 % Normal [facility] Comment on above: Performed By: #### T ROP #### [facility] [address] [place], [place] [address] Immat Grans Abs calc 0.90 thou/cmm High 0.00-0.05 [facility] Comment on above: Performed By: #### T ROP #### [facility] [address] [place], [place] [address] Lymphocytes (Bld) [#/Vol] 3.20 thou/cmm Normal 1.18-3.74 [facility] Comment on above: Performed By: #### T ROP #### [facility] [address] [place], [place] [address] Lymphocytes/100 WBC (Bld) 25.0 % Normal [facility] Comment on above: Performed By: #### T ROP #### [facility] [address] [place], [place] [address] Metamyelocytes 3.0 % Normal [facility] Comment on above: Performed By: #### T ROP #### [facility] [address] [place], [place] [address] Metamyelocytes/100 WBC (Bld) 2.0 % Normal [facility] Comment on above: Performed By: #### T ROP #### [facility] [address] [place], [place] [address] Monocytes/100 WBC (Bld) 3.0 % Normal [facility] Comment on above: Performed By: #### T ROP #### [address] [address] Nucleated RBC/100 WBC (Bld) [Ratio] 2.0 /100 WBC Normal [facility] Comment on above: Performed By: #### T ROP #### [facility] [address] [place] [address] Platelet Morphology Normal Normal [facility] Comment on above: Performed By: #### T ROP #### [facility] [address] [place] [address] Polychromasia Few Normal [facility] Comment on above: Performed By: #### T ROP #### [facility] [address] [place] [address] Promyelocyte Abs calc. 0.26 thou/cmm Normal [facility] Comment on above: Performed By: #### T ROP #### [facility] [address] [place] [address] Promyelocytes 2.0 % Normal [facility] Comment on above: Performed By: #### T ROP #### [facility] [address] [place] [address] RBC morphology finding Nom (Bld) Present Normal [facility] Comment on above: Performed By: #### T ROP #### [facility] [address] [place] [address] Seg Neutrophil 62.0 % Normal [facility] Comment on above: Performed By: #### T ROP #### [facility] [address] [place] [address] Spherocytosis Marked Normal [facility] Comment on above: Performed By: #### T ROP #### [facility] [address] [place] [address] Tear drop cells Few Normal [facility] Comment on above: Performed By: #### T ROP #### [facility] [address] [place] [address] Toxic Vacuoles Few Normal [facility] Comment on above: Performed By: #### T ROP #### [facility] [address] [place] [address] Erythrocyte distribution width (RBC) [Ratio] 15.4 % High 11.7-14.4 [facility] Comment on above: Performed By: #### T ROP #### [facility] [address] [place], [place] [address] Hematocrit (Bld) [Volume fraction] 28.6 % Low 34.1-44.9 [facility] Comment on above: Performed By: #### T ROP #### [facility] [address] [place], [place] [address] Hemoglobin (Bld) [Mass/Vol] 10.0 g/dL Low 11.2-15.7 [facility] Comment on above: Performed By: #### T ROP #### [facility] [address] [place], [place] [address] MCH (RBC) [Entitic mass] 31.3 pg Normal 25.6-32.2 [facility] Comment on above: Performed By: #### T ROP #### [facility] [address] [place] [address] MCHC (RBC) [Mass/Vol] 35.0 % High 31.6-34.8 [facility] Comment on above: Performed By: #### T ROP #### [facility] [address] [place] [address] MCV (RBC) [Entitic vol] 89.7 fL Normal 79.4-94.8 [facility] Comment on above: Performed By: #### T ROP #### [facility] [address] [place] [address] Nucleated RBC (Bld) [#/Vol] 0.08 thou/cmm High 0.00-0.01 [facility] Comment on above: Performed By: #### T ROP #### [facility] [address] [place], [place] [address] Nucleated RBC/100 WBC (Bld) [Ratio] 0.6 % High 0.0-0.2 [facility] Comment on above: Performed By: #### T ROP #### [facility] [address] [place], [place] [address] Platelet mean volume (Bld) [Entitic vol] 10.6 fL Normal 9.4-12.3 [facility] Comment on above: Performed By: #### T ROP #### [facility] [address] [place], [place] [address] Platelets (Bld) [#/Vol] 134 thou/cmm Low 182-369 [facility] Comment on above: Performed By: #### T ROP #### [facility] [address] [place] [address] RBC (Bld) [#/Vol] 3.19 mil/cmm Low 3.93-5.22 [facility] Comment on above: Performed By: #### T ROP #### [place] [address] RDW SD 50.4 fl High 36.4-46.3 [facility] Comment on above: Performed By: #### T ROP #### [place] [address] WBC (Bld) [#/Vol] 12.80 thou/cmm High 3.98-10.04 [facility] Comment on above: Performed By: #### T ROP #### [place] [address] Hepatic Panelon 07-20-2018 Protein [Mass/Vol] 5.2 g/dL Low 6.4-8.2 [facility] Comment on above: Result Comment: Georgette alma rosa specimen treated with LipoClear. Total protein may show up to 14% negative bias. Performed By: #### T ROP #### [place] [address] ALT [Catalytic activity/Vol] 326 U/L High 12-78 [facility] Comment on above: Performed By: #### T ROP #### [place] [address] AST [Catalytic activity/Vol] 206 U/L High 9-37 [facility] Comment on above: Performed By: #### T ROP #### [place] [address] ALP [Catalytic activity/Vol] 65 U/L Normal 46-116 [facility] Comment on above: Performed By: #### T ROP #### [place] [address] Bilirubin [Mass/Vol] 1.5 mg/dL High 0.2-1.[address] [facility] Comment on above: Performed By: #### T ROP #### [facility] [address] [place] [address] Bilirubin [Mass/Vol] 0.84 mg/dL High 0.00-0.[address] [facility] Comment on above: Performed By: #### T ROP #### [facility] [address] [place] [address] Albumin [Mass/Vol] 2.4 g/dL Low 3.4-5.0 [facility] Comment on above: Performed By: #### T ROP #### [place] [address] Ionized Calciumon 07-20-2018 Ionized Ca,PH7.4 3.41 mg/dL Low 4.61-5.17 [facility] Comment on above: Performed By: #### G FR #### [place] [address] pH (Bld) 7.255 [pH] Low 7.320-7.430 [facility] Comment on above: Performed By: #### G FR #### [place] [address] Ionized Calcium 3.69 mg/dL Low 4.61-5.17 [facility] Comment on above: Performed By: #### G FR #### [place] [address] Misc. Send Outon 07-20-2018 Result See Below Normal [facility] Comment on above: Result Comment: NEGA TIVE: No organisms were detected. COMMENT-The Film Array Respiratory Panel detects DNA or RNA for the following organisms: Adenovirus Coronavirus(targets 229E,HKU1,NL63 and OC43) Human metapneumovirus Rhinovirus/Enterovirus Influenza A virus Influenza B virus Parainfluenza Virus 1 Parainfluenza Virus 2 Parainfluenza Virus 3 Parainfluenza Virus 4 Respiratory Syncyctial virus (RSV) Bordetella parapertussis Bordetella pertussis Chlamydophila pneumoniae Mycoplasma pneumoniae Performed By: #### G FR #### [facility] [address] [place] [address] Lab Name/Address See below Normal [facility] Comment on above: Result Comment: Test ing performed at [facility] [place] [address] Performed By: #### G FR #### [place] [address] Test Name Resp Film Array Normal [facility] Comment on above: Performed By: #### G FR #### [place] [address] Vancomycin,Randomon 07-21-19 19 INR Coag (Bld) [Relative time] 38.2 mg/L Normal [facility] Comment on above: Result Comment: Trou gh 10.0-20.0 mg/L Peak 18.0-40.0 mg/L Performed By: #### G FR #### [place] [address] Basic Panelon 07-19-2018 Glucose [Mass/Vol] 94 mg/dL Normal 70-99 [facility] Comment on above: Performed By: #### T ROP #### [place] [address] Urea nitrogen [Mass/Vol] 72 mg/dL High 7-18 [facility] Comment on above: Performed By: #### T ROP #### [place] [address] Creatinine [Mass/Vol] 4.76 mg/dL High 0.51-0.95 [facility] Comment on above: Performed By: #### T ROP #### [place] [address] Anion gap [Moles/Vol] 16 mmol/L Normal 8-16 [facility] Comment on above: Performed By: #### T ROP #### [place] [address] CO2 [Moles/Vol] 20 mmol/L Low 21-32 [facility] Comment on above: Performed By: #### T ROP #### [address] [place], [place] [address] Calcium [Mass/Vol] 6.5 mg/dL Low 8.5-10.1 [facility] Comment on above: Performed By: #### T ROP #### [facility] [address] [place], [place] [address] Chloride [Moles/Vol] 100 mmol/L Normal 98-[address] [facility] Comment on above: Performed By: #### T ROP #### [facility] [address] [place], [place] [address] Potassium [Moles/Vol] 3.6 mmol/L Normal 3.5-5.1 [facility] Comment on above: Performed By: #### T ROP #### [facility] [address] [place], [place] [address] Sodium [Moles/Vol] 132 mmol/L Low 136-145 [facility] Comment on above: Performed By: #### T ROP #### [facility] [address] [place], [place] [address] Creatinine [Mass/Vol] 4.20 mg/dL High 0.51-0.95 [facility] Comment on above: Performed By: #### T ROP #### [address] [address] Anion gap [Moles/Vol] 16 mmol/L Normal 8-16 [facility] Comment on above: Performed By: #### T ROP #### [address] [address] CO2 [Moles/Vol] 19 mmol/L Low 21-32 [facility] Comment on above: Performed By: #### T ROP #### [facility] [address] [place], [place] [address] Glucose [Mass/Vol] 119 mg/dL High 70-99 [facility] Comment on above: Performed By: #### T ROP #### [address] [address] Urea nitrogen [Mass/Vol] 61 mg/dL High 7-18 [facility] Comment on above: Performed By: #### T ROP #### [address] [place] [address] Calcium [Mass/Vol] 6.5 mg/dL Low 8.5-10.1 [facility] Comment on above: Performed By: #### T ROP #### [facility] [address] [place] [address] Chloride [Moles/Vol] 102 mmol/L Normal 98-[address] [facility] Comment on above: Performed By: #### T ROP #### [facility] [address] [place] [address] Potassium [Moles/Vol] 3.8 mmol/L Normal 3.5-5.1 [facility] Comment on above: Performed By: #### T ROP #### [facility] [address] [place] [address] Sodium [Moles/Vol] 133 mmol/L Low 136-145 [facility] Comment on above: Performed By: #### T ROP #### [facility] [address] [place] [address] Blood Gas Arterialon 07-19- 019 Base Excess -6.0 mmol/L Low -3.0-3.0 [facility] Comment on above: Performed By: #### T ROP #### [facility] [address] [place] [address] HCO3 (Bld) [Moles/Vol] 18.8 mmol/L Low 21.0-28.0 [facility] Comment on above: Performed By: #### T ROP #### [place] [address] O2% Sat Arterial 98.8 % Normal 96.0-100.0 [facility] Comment on above: Performed By: #### T ROP #### [place] [address] PCO2 Arterial 40.0 mm Hg Normal 35.0-45.0 [facility] Comment on above: Performed By: #### T ROP #### [place] [address] pH Arterial 7.305 Low 7.350-7.450 [facility] Comment on above: Performed By: #### T ROP #### [facility] [address] [place] [address] PO2 Arterial 150.0 mm Hg High 83.0-108.0 [facility] Comment on above: Performed By: #### T ROP #### [facility] [address] [place] [address] FIO2 50 % Normal [facility] Comment on above: Performed By: #### T ROP #### [facility] [address] [place] [address] Base Excess -6.0 mmol/L Low -3.0-3.0 [facility] Comment on above: Performed By: #### T ROP #### [facility] [address] [place] [address] HCO3 (Bld) [Moles/Vol] 18.7 mmol/L Low 21.0-28.0 [facility] Comment on above: Performed By: #### T ROP #### [facility] [address] [place] [address] O2% Sat Arterial 99.1 % Normal 96.0-100.0 [facility] Comment on above: Performed By: #### T ROP #### [place] [address] PCO2 Arterial 39.8 mm Hg Normal 35.0-45.0 [facility] Comment on above: Performed By: #### T ROP #### [place] [address] pH Arterial 7.306 Low 7.350-7.450 [facility] Comment on above: Performed By: #### T ROP #### [facility] [address] [place] [address] PO2 Arterial 256.0 mm Hg High 83.0-108.0 [facility] Comment on above: Performed By: #### T ROP #### [facility] [address] [place] [address] FIO2 60 % Normal [facility] Comment on above: Performed By: #### T ROP #### [place] [address] Creatinine,Urineon 04-29-201 9 Creatinine,Urine 129.0 mg/dL Normal [facility] Comment on above: Performed By: #### P 14 #### [place] [address] Hemogram/Diffon 07-19-2018 Interpreted by See below Normal [facility] Comment on above: Result Comment: Maynor Bowers M.D., Pathologist Performed By: #### C BCD1 #### [place] [address] Abs. Baso 0.00 thou/cmm Low 0.01-0.08 [facility] Comment on above: Performed By: #### T ROP #### [place] [address] Abs. [place] 0.56 thou/cmm Normal 0.27-0.70 [facility] Comment on above: Performed By: #### T ROP #### [place] [address] Abs. Neut (ANC) 10.97 thou/cmm High 1.56-6.13 [facility] Comment on above: Performed By: #### T ROP #### [place] [address] Basophils/100 WBC (Bld) 0.0 % Normal [facility] Comment on above: Performed By: #### T ROP #### [place] [address] Eosinophils (Bld) [#/Vol] 0.56 thou/cmm High 0.00-0.31 [facility] Comment on above: Performed By: #### T ROP #### [place] [address] Eosinophils/100 WBC (Bld) 4.0 % Normal [facility] Comment on above: Performed By: #### T ROP #### [place] [address] Lymphocytes (Bld) [#/Vol] 1.97 thou/cmm Normal 1.18-3.74 [facility] Comment on above: Performed By: #### T ROP #### [facility] [address] [place], [place] [address] Lymphocytes/100 WBC (Bld) 14.0 % Normal [facility] Comment on above: Performed By: #### T ROP #### [facility] [address] [place] [address] Monocytes/100 WBC (Bld) 4.0 % Normal [facility] Comment on above: Performed By: #### T ROP #### [facility] [address] [place] [address] RBC morphology finding Nom (Bld) Normal Normal [facility] Comment on above: Performed By: #### T ROP #### [facility] [address] [place] [address] Seg Neutrophil 78.0 % Normal [facility] Comment on above: Performed By: #### T ROP #### [facility] [address] [place] [address] Erythrocyte distribution width (RBC) [Ratio] 14.8 % High 11.7-14.4 [facility] Comment on above: Performed By: #### T ROP #### [facility] [address] [place] [address] Hematocrit (Bld) [Volume fraction] 29.6 % Low 34.1-44.9 [facility] Comment on above: Performed By: #### T ROP #### [facility] [address] [place] [address] Hemoglobin (Bld) [Mass/Vol] 10.1 g/dL Low 11.2-15.7 [facility] Comment on above: Performed By: #### T ROP #### [facility] [address] [place] [address] MCH (RBC) [Entitic mass] 30.4 pg Normal 25.6-32.2 [facility] Comment on above: Performed By: #### T ROP #### [facility] [address] [place] [address] MCHC (RBC) [Mass/Vol] 34.1 % Normal 31.6-34.8 [facility] Comment on above: Performed By: #### T ROP #### [facility] [address] [place], [place] [address] MCV (RBC) [Entitic vol] 89.2 fL Normal 79.4-94.8 [facility] Comment on above: Performed By: #### T ROP #### [facility] [address] [place], [place] [address] Nucleated RBC (Bld) [#/Vol] 0.10 thou/cmm High 0.00-0.01 [facility] Comment on above: Performed By: #### T ROP #### [facility] [address] [place] [address] Nucleated RBC/100 WBC (Bld) [Ratio] 0.7 % High 0.0-0.2 [facility] Comment on above: Performed By: #### T ROP #### [facility] [address] [place] [address] Platelet mean volume (Bld) [Entitic vol] 10.5 fL Normal 9.4-12.3 [facility] Comment on above: Performed By: #### T ROP #### [facility] [address] [place] [address] Platelets (Bld) [#/Vol] 163 thou/cmm Low 182-369 [facility] Comment on above: Performed By: #### T ROP #### [facility] [address] [place] [address] RBC (Bld) [#/Vol] 3.32 mil/cmm Low 3.93-5.22 [facility] Comment on above: Performed By: #### T ROP #### [facility] [address] [place] [address] RDW SD 47.8 fl High 36.4-46.3 [facility] Comment on above: Performed By: #### T ROP #### [facility] [address] [place], [place] [address] WBC (Bld) [#/Vol] 14.06 thou/cmm High 3.98-10.04 [facility] Comment on above: Performed By: #### T ROP #### [facility] [address] [place], [place] [address] Sodium,Urineon 07-19-2018 Sodium (U) [Moles/Vol] 15 mmol/L Normal [facility] Comment on above: Performed By: #### P 14 #### [facility] [address] [place], [place] [address] Urea Nitrogen Randomon 07-19 Urea nitrogen [Mass/Vol] 452 mg/dL Normal [facility] Comment on above: Performed By: #### P 14 #### [facility] [address] [place], [place] [address] Basic Panelon 07-18-2018 Creatinine [Mass/Vol] 3.97 mg/dL High 0.51-0.95 [facility] Comment on above: Performed By: #### P 14 #### [facility] [address] [place], [place] [address] Anion gap [Moles/Vol] 15 mmol/L Normal 8-16 [facility] Comment on above: Performed By: #### P 14 #### [facility] [address] [place], [place] [address] Calcium [Mass/Vol] 6.8 mg/dL Low 8.5-10.1 [facility] Comment on above: Performed By: #### P 14 #### [facility] [address] [place], [place] [address] CO2 [Moles/Vol] 21 mmol/L Normal 21-32 [facility] Comment on above: Performed By: #### P 14 #### [facility] [address] [place], [place] [address] Glucose [Mass/Vol] 116 mg/dL High 70-99 [facility] Comment on above: Performed By: #### P 14 #### [facility] [address] [place], [place] [address] Urea nitrogen [Mass/Vol] 60 mg/dL High 7-18 [facility] Comment on above: Performed By: #### P 14 #### [facility] [address] [place], [place] [address] Chloride [Moles/Vol] 102 mmol/L Normal 98-[address] [facility] Comment on above: Performed By: #### P 14 #### [facility] [address] [place], [place] [address] Potassium [Moles/Vol] 4.0 mmol/L Normal 3.5-5.1 [facility] Comment on above: Performed By: #### P 14 #### [facility] [address] [place], [place] [address] Sodium [Moles/Vol] 134 mmol/L Low 136-145 [facility] Comment on above: Performed By: #### P 14 #### [facility] [address] [place], [place] [address] Creatinine [Mass/Vol] 3.26 mg/dL High 0.51-0.95 [facility] Comment on above: Performed By: #### A PTT #### [facility] [address] [place], [place] [address] Anion gap [Moles/Vol] 16 mmol/L Normal 8-16 [facility] Comment on above: Performed By: #### A PTT #### [facility] [address] [place], [place] [address] Calcium [Mass/Vol] 7.4 mg/dL Low 8.5-10.1 [facility] Comment on above: Performed By: #### A PTT #### [facility] [address] [place], [place] [address] CO2 [Moles/Vol] 19 mmol/L Low 21-32 [facility] Comment on above: Performed By: #### A PTT #### [facility] [address] [place], [place] [address] Glucose [Mass/Vol] 199 mg/dL High 70-99 [facility] Comment on above: Performed By: #### A PTT #### [facility] [address] [place], [place] [address] Urea nitrogen [Mass/Vol] 49 mg/dL High 7-18 [facility] Comment on above: Performed By: #### A PTT #### [facility] [address] [place], [place] [address] Chloride [Moles/Vol] 102 mmol/L Normal 98-[address] [facility] Comment on above: Performed By: #### A PTT #### [facility] [address] [place], [place] [address] Potassium [Moles/Vol] 4.6 mmol/L Normal 3.5-5.1 [facility] Comment on above: Performed By: #### A PTT #### [facility] [address] [place], [place] [address] Sodium [Moles/Vol] 132 mmol/L Low 136-145 [facility] Comment on above: Performed By: #### A PTT #### [facility] [address] [place], [place] [address] Bld Gas Art and Ion Caon Base Excess -6.5 mmol/L Low -3.0-3.0 [facility] Comment on above: Performed By: #### A PTT #### [facility] [address] [place] [address] HCO3 (Bld) [Moles/Vol] 19.0 mmol/L Low 21.0-28.0 [facility] Comment on above: Performed By: #### A PTT #### [facility] [address] [place], [place] [address] Ionized Ca,PH7.4 4.20 mg/dL Low 4.61-5.17 [facility] Comment on above: Performed By: #### A PTT #### [facility] [address] [place], [place] [address] O2% Sat Arterial 97.8 % Normal 96.0-100.0 [facility] Comment on above: Performed By: #### A PTT #### [facility] [address] [place], [place] [address] PCO2 Arterial 42.1 mm Hg Normal 35.0-45.0 [facility] Comment on above: Performed By: #### A PTT #### [facility] [address] [place] [address] pH Arterial 7.283 Low 7.350-7.450 [facility] Comment on above: Performed By: #### A PTT #### [facility] [address] [place], [place] [address] PO2 Arterial 119.0 mm Hg High 83.0-108.0 [facility] Comment on above: Performed By: #### A PTT #### [facility] [address] [place] [address] FIO2 40 % Normal [facility] Comment on above: Performed By: #### A PTT #### [facility] [address] [place] [address] Ionized Calcium 4.44 mg/dL Low 4.61-5.17 [facility] Comment on above: Performed By: #### A PTT #### [facility] [address] [place] [address] Blood Gas Arterialon 07-18-2 019 Base Excess -5.6 mmol/L Low -3.0-3.0 [facility] Comment on above: Performed By: #### P 14 #### [facility] [address] [place] [address] HCO3 (Bld) [Moles/Vol] 19.4 mmol/L Low 21.0-28.0 [facility] Comment on above: Performed By: #### P 14 #### [facility] [address] [place] [address] O2% Sat Arterial 89.3 % Low 96.0-100.0 [facility] Comment on above: Performed By: #### P 14 #### [facility] [address] [place] [address] PCO2 Arterial 38.7 mm Hg Normal 35.0-45.0 [facility] Comment on above: Performed By: #### P 14 #### [facility] [address] [place] [address] pH Arterial 7.321 Low 7.350-7.450 [facility] Comment on above: Performed By: #### P 14 #### [facility] [address] [place] [address] PO2 Arterial 63.0 mm Hg Low 83.0-108.0 [facility] Comment on above: Performed By: #### P 14 #### [facility] [address] [place] [address] FIO2 60 % Normal [facility] Comment on above: Performed By: #### P 14 #### [facility] [address] [place] [address] Base Excess -5.8 mmol/L Low -3.0-3.0 [facility] Comment on above: Performed By: #### P 14 #### [facility] [address] [place] [address] FIO2 Value Not Given Normal [facility] Comment on above: Performed By: #### P 14 #### [facility] [address] [place] [address] HCO3 (Bld) [Moles/Vol] 18.7 mmol/L Low 21.0-28.0 [facility] Comment on above: Performed By: #### P 14 #### [facility] [address] [place] [address] O2% Sat Arterial 94.4 % Low 96.0-100.0 [facility] Comment on above: Performed By: #### P 14 #### [facility] [address] [place] [address] PCO2 Arterial 35.3 mm Hg Normal 35.0-45.0 [facility] Comment on above: Performed By: #### P 14 #### [facility] [address] [place] [address] pH Arterial 7.344 Low 7.350-7.450 [facility] Comment on above: Performed By: #### P 14 #### [facility] [address] [place] [address] PO2 Arterial 77.4 mm Hg Low 83.0-108.0 [facility] Comment on above: Performed By: #### P 14 #### [facility] [address] [place] [address] FIO2 40 % Normal [facility] Comment on above: Performed By: #### P 14 #### [facility] [address] [place] [address] Base Excess -6.5 mmol/L Low -3.0-3.0 [facility] Comment on above: Performed By: #### P 14 #### [facility] [address] [place] [address] HCO3 (Bld) [Moles/Vol] 19.0 mmol/L Low 21.0-28.0 [facility] Comment on above: Performed By: #### P 14 #### [facility] [address] [place], [place] [address] O2% Sat Arterial 96.3 % Normal 96.0-100.0 [facility] Comment on above: Performed By: #### P 14 #### [facility] [address] [place], [place] [address] PCO2 Arterial 40.5 mm Hg Normal 35.0-45.0 [facility] Comment on above: Performed By: #### P 14 #### [facility] [address] [place], [place] [address] pH Arterial 7.293 Low 7.350-7.450 [facility] Comment on above: Performed By: #### P 14 #### [facility] [address] [place], [place] [address] PO2 Arterial 91.4 mm Hg Normal 83.0-108.0 [facility] Comment on above: Performed By: #### P 14 #### [facility] [address] [place], [place] [address] Base Excess -6.6 mmol/L Low -3.0-3.0 [facility] Comment on above: Performed By: #### A PTT #### [facility] [address] [place], [place] [address] HCO3 (Bld) [Moles/Vol] 18.9 mmol/L Low 21.0-28.0 [facility] Comment on above: Performed By: #### A PTT #### [facility] [address] [place], [place] [address] O2% Sat Arterial 96.5 % Normal 96.0-100.0 [facility] Comment on above: Performed By: #### A PTT #### [facility] [address] [place], [place] [address] PCO2 Arterial 43.2 mm Hg Normal 35.0-45.0 [facility] Comment on above: Performed By: #### A PTT #### [facility] [address] [place], [place] [address] pH Arterial 7.275 Low 7.350-7.450 [facility] Comment on above: Performed By: #### A PTT #### [facility] [address] [place] [address] PO2 Arterial 107.0 mm Hg Normal 83.0-108.0 [facility] Comment on above: Performed By: #### A PTT #### [facility] [address] [place] [address] FIO2 40 % Normal [facility] Comment on above: Performed By: #### A PTT #### [facility] [address] [place] [address] Cult Bloodon 07-18-2018 Cult Blood Test performed at [facility] No growth Normal [facility] Comment on above: Performed By: #### T ROP #### [facility] [address] [place] [address] Cult Blood Test performed at [facility] No growth Normal [facility] Comment on above: Performed By: #### T ROP #### [place] [address] Hemogram/Diffon 07-18-2018 Abs. Baso 0.00 thou/cmm Low 0.01-0.08 [facility] Comment on above: Performed By: #### A PTT #### [facility] [address] [place] [address] Abs. [place] 0.16 thou/cmm Low 0.27-0.70 [facility] Comment on above: Performed By: #### A PTT #### [place] [address] Abs. Neut (ANC) 12.11 thou/cmm High 1.56-6.13 [facility] Comment on above: Performed By: #### A PTT #### [place] [address] Basophils/100 WBC (Bld) 0.0 % Normal [facility] Comment on above: Performed By: #### A PTT #### [place] [address] Eosinophils (Bld) [#/Vol] 0.00 thou/cmm Normal 0.00-0.31 [facility] Comment on above: Performed By: #### A PTT #### [facility] [address] [place], [place] [address] Eosinophils/100 WBC (Bld) 0.0 % Normal [facility] Comment on above: Performed By: #### A PTT #### [facility] [address] [place], [place] [address] Immat Grans Abs calc 0.32 thou/cmm High 0.00-0.05 [facility] Comment on above: Performed By: #### A PTT #### [facility] [address] [place], [place] [address] Lymphocytes (Bld) [#/Vol] 3.55 thou/cmm Normal 1.18-3.74 [facility] Comment on above: Performed By: #### A PTT #### [address] [address] Lymphocytes/100 WBC (Bld) 22.0 % Normal [facility] Comment on above: Performed By: #### A PTT #### [facility] [address] [place], [place] [address] Metamyelocytes 1.0 % Normal [facility] Comment on above: Performed By: #### A PTT #### [address] [address] Metamyelocytes/100 WBC (Bld) 1.0 % Normal [facility] Comment on above: Performed By: #### A PTT #### [address] [address] Monocytes/100 WBC (Bld) 1.0 % Normal [facility] Comment on above: Performed By: #### A PTT #### [facility] [address] [place], [place] [address] RBC morphology finding Nom (Bld) Normal Normal [facility] Comment on above: Performed By: #### A PTT #### [address] [address] Seg Neutrophil 75.0 % Normal [facility] Comment on above: Performed By: #### A PTT #### [place] [address] [place] [address] Smudge Cells Present Normal [facility] Comment on above: Performed By: #### A PTT #### [facility] [address] [place] [address] Erythrocyte distribution width (RBC) [Ratio] 14.8 % High 11.7-14.4 [facility] Comment on above: Performed By: #### A PTT #### [facility] [address] [place] [address] Hematocrit (Bld) [Volume fraction] 31.7 % Low 34.1-44.9 [facility] Comment on above: Performed By: #### A PTT #### [facility] [address] [place] [address] Hemoglobin (Bld) [Mass/Vol] 10.2 g/dL Low 11.2-15.7 [facility] Comment on above: Performed By: #### A PTT #### [place] [address] MCH (RBC) [Entitic mass] 29.4 pg Normal 25.6-32.2 [facility] Comment on above: Performed By: #### A PTT #### [place] [address] MCHC (RBC) [Mass/Vol] 32.2 % Normal 31.6-34.8 [facility] Comment on above: Performed By: #### A PTT #### [place] [address] MCV (RBC) [Entitic vol] 91.4 fL Normal 79.4-94.8 [facility] Comment on above: Performed By: #### A PTT #### [place] [address] Nucleated RBC (Bld) [#/Vol] 0.03 thou/cmm High 0.00-0.01 [facility] Comment on above: Performed By: #### A PTT #### [place] [address] Nucleated RBC/100 WBC (Bld) [Ratio] 0.2 % Normal 0.0-0.2 [facility] Comment on above: Performed By: #### A PTT #### [facility] [address] [place] [address] Platelet mean volume (Bld) [Entitic vol] 10.5 fL Normal 9.4-12.3 [facility] Comment on above: Performed By: #### A PTT #### [facility] [address] [place] [address] Platelets (Bld) [#/Vol] 187 thou/cmm Normal 182-369 [facility] Comment on above: Performed By: #### A PTT #### [facility] [address] [place] [address] RBC (Bld) [#/Vol] 3.47 mil/cmm Low 3.93-5.22 [facility] Comment on above: Performed By: #### A PTT #### [place] [address] RDW SD 49.8 fl High 36.4-46.3 [facility] Comment on above: Performed By: #### A PTT #### [facility] [address] [place] [address] WBC (Bld) [#/Vol] 16.14 thou/cmm High 3.98-10.04 [facility] Comment on above: Performed By: #### A PTT #### [place] [address] Hepatic Panelon 07-18-2018 ALT [Catalytic activity/Vol] 462 U/L High 12-78 [facility] Comment on above: Performed By: #### A PTT #### [facility] [address] [place] [address] ALP [Catalytic activity/Vol] 72 U/L Normal 46-116 [facility] Comment on above: Performed By: #### A PTT #### [facility] [address] [place] [address] Bilirubin [Mass/Vol] 0.6 mg/dL Normal 0.2-1.[address] [facility] Comment on above: Performed By: #### A PTT #### [facility] [address] [place] [address] Protein [Mass/Vol] 6.0 g/dL Low 6.4-8.2 [facility] Comment on above: Performed By: #### A PTT #### [facility] [address] [place] [address] AST [Catalytic activity/Vol] 347 U/L High 9-37 [facility] Comment on above: Performed By: #### A PTT #### [facility] [address] [place] [address] Bilirubin [Mass/Vol] 0.30 mg/dL High 0.00-0.[address] [facility] Comment on above: Performed By: #### A PTT #### [facility] [address] [place] [address] Albumin [Mass/Vol] 2.4 g/dL Low 3.4-5.0 [facility] Comment on above: Performed By: #### A PTT #### [facility] [address] [place] [address] Phosphorus Bloodon 9 Phosphate [Mass/Vol] 5.6 mg/dL High 2.5-4.[address] [facility] Comment on above: Performed By: #### A PTT #### [facility] [address] [place] [address] Urinalysis Routineon 019 RBC LM.HPF (Urine sed) [#/Area] 0.0-3 Normal 0.0-5.0 [facility] Comment on above: Performed By: #### P 14 #### [facility] [address] [place] [address] Renal Tubular Cells NONE Normal 0-5 [facility] Comment on above: Performed By: #### P 14 #### [place] [address] Yeast Urine NONE Normal None [facility] Comment on above: Performed By: #### P 14 #### [place] [address] Appearance (U) 1+ (HAZY) Normal [facility] Comment on above: Performed By: #### P 14 #### [facility] [address] [place], [place] [address] Color (U) STRAW Normal [facility] Comment on above: Performed By: #### P 14 #### [facility] [address] [place] [address] Bilirubin (U) [Mass/Vol] Negative Normal Negative [facility] Comment on above: Performed By: #### P 14 #### [facility] [address] [place] [address] Glucose Ql (U) Negative Normal Negative [facility] Comment on above: Performed By: #### P 14 #### [facility] [address] [place] [address] Hemoglobin,Urine LARGE Abnormal Negative [facility] Comment on above: Performed By: #### P 14 #### [facility] [address] [place] [address] Ketone Urine Negative Normal Negative [facility] Comment on above: Performed By: #### P 14 #### [facility] [address] [place] [address] Leukocytes Esterase Negative Normal Negative [facility] Comment on above: Performed By: #### P 14 #### [facility] [address] [place] [address] Nitrites Urine Negative Normal Negative [facility] Comment on above: Performed By: #### P 14 #### [facility] [address] [place] [address] pH (U) 5.5 [pH] Normal 5.0-8.0 [facility] Comment on above: Performed By: #### P 14 #### [facility] [address] [place] [address] Protein (U) [Mass/Vol] 30 mg/dL Abnormal Negative [facility] Comment on above: Performed By: #### P 14 #### [facility] [address] [place] [address] Specific [place], Ur 1.020 Normal 1.005-1.030 [facility] Comment on above: Performed By: #### P 14 #### [facility] [address] [place] [address] Urobilinogen,Ur 0.2 EU/dL Normal 0.0-1.0 [facility] Comment on above: Performed By: #### P 14 #### [facility] [address] [place] [address] Bacteria LM.HPF (Urine sed) [#/Area] NONE Normal None [facility] Comment on above: Performed By: #### P 14 #### [facility] [address] [place] [address] Ep Cells Urine 3.0 /hpf Normal 0.0-5.0 [facility] Comment on above: Performed By: #### P 14 #### [facility] [address] [place] [address] Hyaline Cast 1.4 /lpf High 0.0-1.0 [facility] Comment on above: Performed By: #### P 14 #### [facility] [address] [place] [address] WBC LM.HPF (Urine sed) [#/Area] 15.9 /[HPF] High 0.0-5.0 [facility] Comment on above: Performed By: #### P 14 #### [facility] [address] [place] [address] Vancomycin,Troughon 07-19-19 19 Vancomycin,Trough 15.4 mg/L Normal 10.0-20.0 [facility] Comment on above: Result Comment: RESU LT RECHECKED Performed By: #### A PTT #### [place] [address] Activated PTTon 07-17-2018 aPTT Coag (Bld) [Time] 25.4 s Normal 23.0-32.4 [facility] Comment on above: Result Comment: Unfr actionated Heparin Therapeutic Ranges: Standard Heparin Nomogram: 53 to 78 seconds (anti-Xa level of 0.3 to 0.7 U/mL) Low Dose/ACS Nomogram: 49 to 67 seconds (anti-Xa level of 0.2 to 0.5 U/mL) Stroke Treatment Nomogram: 49 to 67 seconds (anti-Xa level of 0.2 to 0.5 U/mL) Note: The APTT therapeutic range has been determined for the current lot of laboratory APTT reagent in use throughout the [facility]. Performed By: #### C BCD1 #### [place] [address] aPTT Coag (Bld) [Time] 22.2 s Low 23.0-32.4 [facility] Comment on above: Result Comment: Unfr actionated Heparin Therapeutic Ranges: Standard Heparin Nomogram: 53 to 78 seconds (anti-Xa level of 0.3 to 0.7 U/mL) Low Dose/ACS Nomogram: 49 to 67 seconds (anti-Xa level of 0.2 to 0.5 U/mL) Stroke Treatment Nomogram: 49 to 67 seconds (anti-Xa level of 0.2 to 0.5 U/mL) Note: The APTT therapeutic range has been determined for the current lot of laboratory APTT reagent in use throughout the [facility]. Performed By: #### A PTT #### [place] [address] Basic Panelon 07-17-2018 Creatinine [Mass/Vol] 2.77 mg/dL High 0.51-0.95 [facility] Comment on above: Performed By: #### A PTT #### [place] [address] Anion gap [Moles/Vol] 14 mmol/L Normal 8-16 [facility] Comment on above: Performed By: #### A PTT #### [place] [address] CO2 [Moles/Vol] 21 mmol/L Normal 21-32 [facility] Comment on above: Performed By: #### A PTT #### [place] [address] Glucose [Mass/Vol] 132 mg/dL High 70-99 [facility] Comment on above: Performed By: #### A PTT #### [place] [address] Urea nitrogen [Mass/Vol] 40 mg/dL High 7-18 [facility] Comment on above: Performed By: #### A PTT #### [facility] [address] [place], [place] [address] Calcium [Mass/Vol] 7.7 mg/dL Low 8.5-10.1 [facility] Comment on above: Performed By: #### A PTT #### [facility] [address] [place], [place] [address] Chloride [Moles/Vol] 103 mmol/L Normal 98-[address] [facility] Comment on above: Performed By: #### A PTT #### [facility] [address] [place], [place] [address] Potassium [Moles/Vol] 5.7 mmol/L High 3.5-5.1 [facility] Comment on above: Performed By: #### A PTT #### [facility] [address] [place], [place] [address] Sodium [Moles/Vol] 132 mmol/L Low 136-145 [facility] Comment on above: Performed By: #### A PTT #### [facility] [address] [place], [place] [address] Creatinine [Mass/Vol] 1.55 mg/dL High 0.51-0.95 [facility] Comment on above: Performed By: #### P T #### [facility] [address] [place], [place] [address] Anion gap [Moles/Vol] 11 mmol/L Normal 8-16 [facility] Comment on above: Performed By: #### P T #### [facility] [address] [place], [place] [address] Calcium [Mass/Vol] 6.6 mg/dL Low 8.5-10.1 [facility] Comment on above: Performed By: #### P T #### [facility] [address] [place], [place] [address] CO2 [Moles/Vol] 22 mmol/L Normal 21-32 [facility] Comment on above: Performed By: #### P T #### [facility] [address] [place], [place] [address] Glucose [Mass/Vol] 159 mg/dL High 70-99 [facility] Comment on above: Performed By: #### P T #### [facility] [address] [place], [place] [address] Urea nitrogen [Mass/Vol] 26 mg/dL High 7-18 [facility] Comment on above: Performed By: #### P T #### [facility] [address] [place], [place] [address] Chloride [Moles/Vol] 104 mmol/L Normal 98-[address] [facility] Comment on above: Performed By: #### P T #### [facility] [address] [place] [address] Potassium [Moles/Vol] 5.5 mmol/L High 3.5-5.1 [facility] Comment on above: Performed By: #### P T #### [facility] [address] [place] [address] Sodium [Moles/Vol] 131 mmol/L Low 136-145 [facility] Comment on above: Performed By: #### P T #### [facility] [address] [place] [address] Blood Gas Arterialon 07-17-2 019 Base Excess -7.6 mmol/L Low -3.0-3.0 [facility] Comment on above: Performed By: #### P T #### [facility] [address] [place] [address] HCO3 (Bld) [Moles/Vol] 19.1 mmol/L Low 21.0-28.0 [facility] Comment on above: Performed By: #### P T #### [facility] [address] [place], [place] [address] O2% Sat Arterial 96.6 % Normal 96.0-100.0 [facility] Comment on above: Performed By: #### P T #### [facility] [address] [place] [address] PCO2 Arterial 49.1 mm Hg High 35.0-45.0 [facility] Comment on above: Performed By: #### P T #### [facility] [address] [place], [place] [address] pH Arterial 7.223 Low 7.350-7.450 [facility] Comment on above: Performed By: #### P T #### [facility] [address] [place], [place] [address] PO2 Arterial 109.0 mm Hg High 83.0-108.0 [facility] Comment on above: Performed By: #### P T #### [facility] [address] [place], [place] [address] FIO2 45 % Normal [facility] Comment on above: Performed By: #### P T #### [facility] [address] [place] [address] Base Excess -7.3 mmol/L Low -3.0-3.0 [facility] Comment on above: Performed By: #### P T #### [facility] [address] [place] [address] FIO2 Value Not Given Normal [facility] Comment on above: Performed By: #### P T #### [facility] [address] [place] [address] HCO3 (Bld) [Moles/Vol] 19.8 mmol/L Low 21.0-28.0 [facility] Comment on above: Performed By: #### P T #### [facility] [address] [place], [place] [address] O2% Sat Arterial 94.9 % Low 96.0-100.0 [facility] Comment on above: Performed By: #### P T #### [facility] [address] [place], [place] [address] PCO2 Arterial 49.0 mm Hg High 35.0-45.0 [facility] Comment on above: Performed By: #### P T #### [facility] [address] [place], [place] [address] pH Arterial 7.231 Low 7.350-7.450 [facility] Comment on above: Performed By: #### P T #### [facility] [address] [place], [place] [address] PO2 Arterial 86.5 mm Hg Normal 83.0-108.0 [facility] Comment on above: Performed By: #### P T #### [facility] [address] [place] [address] Base Excess -7.5 mmol/L Low -3.0-3.0 [facility] Comment on above: Performed By: #### P T #### [facility] [address] [place] [address] HCO3 (Bld) [Moles/Vol] 19.6 mmol/L Low 21.0-28.0 [facility] Comment on above: Performed By: #### P T #### [facility] [address] [place] [address] O2% Sat Arterial 98.2 % Normal 96.0-100.0 [facility] Comment on above: Performed By: #### P T #### [facility] [address] [place] [address] PCO2 Arterial 52.5 mm Hg High 35.0-45.0 [facility] Comment on above: Performed By: #### P T #### [facility] [address] [place] [address] pH Arterial 7.208 Low 7.350-7.450 [facility] Comment on above: Performed By: #### P T #### [facility] [address] [place] [address] PO2 Arterial 141.0 mm Hg High 83.0-108.0 [facility] Comment on above: Performed By: #### P T #### [facility] [address] [place] [address] FIO2 50 % Normal [facility] Comment on above: Performed By: #### P T #### [facility] [address] [place] [address] FIO2 80 % Normal [facility] Comment on above: Performed By: #### P T #### [facility] [address] [place] [address] Base Excess -7.8 mmol/L Low -3.0-3.0 [facility] Comment on above: Performed By: #### P T #### [facility] [address] [place] [address] HCO3 (Bld) [Moles/Vol] 20.2 mmol/L Low 21.0-28.0 [facility] Comment on above: Performed By: #### P T #### [facility] [address] [place], [place] [address] O2% Sat Arterial 99.3 % Normal 96.0-100.0 [facility] Comment on above: Performed By: #### P T #### [facility] [address] [place], [place] [address] PCO2 Arterial 53.8 mm Hg High 35.0-45.0 [facility] Comment on above: Performed By: #### P T #### [facility] [address] [place], [place] [address] pH Arterial 7.199 Critically low 7.350-7.450 [facility] Comment on above: Result Comment: RESU LT RECHECKED Performed By: #### P T #### [facility] [address] [place], [place] [address] PO2 Arterial 283.0 mm Hg High 83.0-108.0 [facility] Comment on above: Performed By: #### P T #### [facility] [address] [place], [place] [address] FIO2 Value Not Given Normal [facility] Comment on above: Performed By: #### P T #### [facility] [address] [place], [place] [address] Base Excess -6.8 mmol/L Low -3.0-3.0 [facility] Comment on above: Performed By: #### P T #### [facility] [address] [place], [place] [address] HCO3 (Bld) [Moles/Vol] 19.4 mmol/L Low 21.0-28.0 [facility] Comment on above: Performed By: #### P T #### [facility] [address] [place], [place] [address] O2% Sat Arterial 91.6 % Low 96.0-100.0 [facility] Comment on above: Performed By: #### P T #### [facility] [address] [place], [place] [address] PCO2 Arterial 43.9 mm Hg Normal 35.0-45.0 [facility] Comment on above: Performed By: #### P T #### [facility] [address] [place] [address] pH Arterial 7.268 Low 7.350-7.450 [facility] Comment on above: Performed By: #### P T #### [facility] [address] [place] [address] PO2 Arterial 71.6 mm Hg Low 83.0-108.0 [facility] Comment on above: Performed By: #### P T #### [facility] [address] [place] [address] Base Excess -6.2 mmol/L Low -3.0-3.0 [facility] Comment on above: Performed By: #### C BCD1 #### [facility] [address] [place] [address] HCO3 (Bld) [Moles/Vol] 20.4 mmol/L Low 21.0-28.0 [facility] Comment on above: Performed By: #### C BCD1 #### [facility] [address] [place] [address] O2% Sat Arterial 98.5 % Normal 96.0-100.0 [facility] Comment on above: Performed By: #### C BCD1 #### [facility] [address] [place] [address] PCO2 Arterial 47.0 mm Hg High 35.0-45.0 [facility] Comment on above: Performed By: #### C BCD1 #### [facility] [address] [place] [address] pH Arterial 7.260 Low 7.350-7.450 [facility] Comment on above: Performed By: #### C BCD1 #### [facility] [address] [place] [address] PO2 Arterial 167.0 mm Hg High 83.0-108.0 [facility] Comment on above: Performed By: #### C BCD1 #### [facility] [address] [place] [address] FIO2 100 % Normal [facility] Comment on above: Performed By: #### A BG #### [facility] [address] [place] [address] Performed By: #### C BCD1 #### [facility] [address] [place] [address] Base Excess -5.2 mmol/L Low -3.0-3.0 [facility] Comment on above: Performed By: #### A BG #### [facility] [address] [place] [address] HCO3 (Bld) [Moles/Vol] 20.2 mmol/L Low 21.0-28.0 [facility] Comment on above: Performed By: #### A BG #### [facility] [address] [place] [address] O2% Sat Arterial 95.3 % Low 96.0-100.0 [facility] Comment on above: Performed By: #### A BG #### [facility] [address] [place] [address] PCO2 Arterial 41.2 mm Hg Normal 35.0-45.0 [facility] Comment on above: Performed By: #### A BG #### [facility] [address] [place] [address] pH Arterial 7.311 Low 7.350-7.450 [facility] Comment on above: Performed By: #### A BG #### [facility] [address] [place] [address] PO2 Arterial 86.5 mm Hg Normal 83.0-108.0 [facility] Comment on above: Performed By: #### A BG #### [facility] [address] [place] [address] Base Excess -6.9 mmol/L Low -3.0-3.0 [facility] Comment on above: Performed By: #### A BG #### [facility] [address] [place] [address] HCO3 (Bld) [Moles/Vol] 21.8 mmol/L Normal 21.0-28.0 [facility] Comment on above: Performed By: #### A BG #### [facility] [address] [place] [address] O2% Sat Arterial 88.5 % Low 96.0-100.0 [facility] Comment on above: Performed By: #### A BG #### [facility] [address] [place] [address] PCO2 Arterial 60.2 mm Hg High 35.0-45.0 [facility] Comment on above: Performed By: #### A BG #### [facility] [address] [place] [address] pH Arterial 7.185 Critically low 7.350-7.450 [facility] Comment on above: Performed By: #### A BG #### [facility] [address] [place] [address] PO2 Arterial 71.7 mm Hg Low 83.0-108.0 [facility] Comment on above: Performed By: #### A BG #### [facility] [address] [place] [address] FIO2 100 % Normal [facility] Comment on above: Performed By: #### A BG #### [facility] [address] [place] [address] Comprehensive Panelon 2018 Anion gap [Moles/Vol] 12 mmol/L Normal 8-16 [facility] Comment on above: Performed By: #### P 14 #### [facility] [address] [place] [address] AST [Catalytic activity/Vol] 159 U/L High 9-37 [facility] Comment on above: Result Comment: SPEC IMEN SLIGHTLY HEMOLYZED Performed By: #### P 14 #### [facility] [address] [place] [address] Potassium [Moles/Vol] 5.7 mmol/L High 3.5-5.1 [facility] Comment on above: Result Comment: SPEC IMEN SLIGHTLY HEMOLYZED Performed By: #### P 14 #### [facility] [address] [place] [address] ALP [Catalytic activity/Vol] 95 U/L Normal 46-116 [facility] Comment on above: Performed By: #### P 14 #### [facility] [address] [place] [address] Bilirubin [Mass/Vol] 0.7 mg/dL Normal 0.2-1.[address] [facility] Comment on above: Performed By: #### P 14 #### [facility] [address] [place], [place] [address] Protein [Mass/Vol] 6.2 g/dL Low 6.4-8.2 [facility] Comment on above: Performed By: #### P 14 #### [facility] [address] [place], [place] [address] ALT [Catalytic activity/Vol] 69 U/L Normal 12-78 [facility] Comment on above: Performed By: #### P 14 #### [facility] [address] [place], [place] [address] Creatinine [Mass/Vol] 1.08 mg/dL High 0.51-0.95 [facility] Comment on above: Performed By: #### P 14 #### [facility] [address] [place], [place] [address] Albumin [Mass/Vol] 2.4 g/dL Low 3.4-5.0 [facility] Comment on above: Performed By: #### P 14 #### [facility] [address] [place], [place] [address] Calcium [Mass/Vol] 6.7 mg/dL Low 8.5-10.1 [facility] Comment on above: Performed By: #### P 14 #### [facility] [address] [place], [place] [address] CO2 [Moles/Vol] 23 mmol/L Normal 21-32 [facility] Comment on above: Performed By: #### P 14 #### [facility] [address] [place], [place] [address] Glucose [Mass/Vol] 173 mg/dL High 70-99 [facility] Comment on above: Performed By: #### P 14 #### [facility] [address] [place], [place] [address] Urea nitrogen [Mass/Vol] 20 mg/dL High 7-18 [facility] Comment on above: Performed By: #### P 14 #### [facility] [address] [place], [place] [address] Chloride [Moles/Vol] 106 mmol/L Normal 98-[address] [facility] Comment on above: Performed By: #### P 14 #### [facility] [address] [place] [address] Sodium [Moles/Vol] 135 mmol/L Low 136-145 [facility] Comment on above: Performed By: #### P 14 #### [facility] [address] [place] [address] Cult Bloodon 07-17-2018 Cult Blood Test performed at [facility] No growth Normal [facility] Comment on above: Performed By: #### A PTT #### [place] [address] Cult and Smr Respiratoryon 0 07-17-2018 Cult and Smr Respiratory Test performed at [facility] Few normal oropharyngeal reynaldo present Few Gram positive cocci Rare Gram negative bacilli Many Mononuclear cells Moderate Polymorphonuclear leukocytes Few Squamous epithelial cells ORGANISM: *Staphylococcus aureus (ID: 1) Rare ORGANISM: *Pseudomonas aeruginosa (ID: 2) Rare Normal [facility] Comment on above: Performed By: #### P 14 #### [facility] [address] [place] [address] Hemogram/Diffon 07-17-2018 Abs. Baso 0.00 thou/cmm Low 0.01-0.08 [facility] Comment on above: Performed By: #### C BCD1 #### [place] [address] Abs. [place] 0.47 thou/cmm Normal 0.27-0.70 [facility] Comment on above: Performed By: #### C BCD1 #### [facility] [address] [place] [address] Abs. Neut (ANC) 17.30 thou/cmm High 1.56-6.13 [facility] Comment on above: Performed By: #### C BCD1 #### [facility] [address] [place] [address] Atypical Lymph 3.0 % Normal [facility] Comment on above: Performed By: #### C BCD1 #### [place] [address] Basophils/100 WBC (Bld) 0.0 % Normal [facility] Comment on above: Performed By: #### C BCD1 #### [facility] [address] [place], [place] [address] Eosinophils (Bld) [#/Vol] 0.00 thou/cmm Normal 0.00-0.31 [facility] Comment on above: Performed By: #### C BCD1 #### [facility] [address] [place], [place] [address] Eosinophils/100 WBC (Bld) 0.0 % Normal [facility] Comment on above: Performed By: #### C BCD1 #### [facility] [address] [place], [place] [address] Immat Grans Abs calc 0.70 thou/cmm High 0.00-0.05 [facility] Comment on above: Performed By: #### C BCD1 #### [facility] [address] [place], [place] [address] Lymphocytes (Bld) [#/Vol] 4.91 thou/cmm High 1.18-3.74 [facility] Comment on above: Performed By: #### C BCD1 #### [facility] [address] [place], [place] [address] Lymphocytes/100 WBC (Bld) 18.0 % Normal [facility] Comment on above: Performed By: #### C BCD1 #### [facility] [address] [place], [place] [address] Metamyelocytes 1.0 % Normal [facility] Comment on above: Performed By: #### C BCD1 #### [facility] [address] [place], [place] [address] Metamyelocytes/100 WBC (Bld) 1.0 % Normal [facility] Comment on above: Performed By: #### C BCD1 #### [facility] [address] [place], [place] [address] Monocytes/100 WBC (Bld) 2.0 % Normal [facility] Comment on above: Performed By: #### C BCD1 #### [facility] [address] [place], [place] [address] Nucleated RBC/100 WBC (Bld) [Ratio] 1.0 /100 WBC Normal [facility] Comment on above: Performed By: #### C BCD1 #### [facility] [address] [place] [address] Promyelocyte Abs calc. 0.23 thou/cmm Normal [facility] Comment on above: Performed By: #### C BCD1 #### [facility] [address] [place] [address] Promyelocytes 1.0 % Normal [facility] Comment on above: Performed By: #### C BCD1 #### [facility] [address] [place] [address] RBC morphology finding Nom (Bld) Normal Normal [facility] Comment on above: Performed By: #### C BCD1 #### [facility] [address] [place] [address] Seg Neutrophil 74.0 % Normal [facility] Comment on above: Performed By: #### C BCD1 #### [facility] [address] [place] [address] Erythrocyte distribution width (RBC) [Ratio] 14.9 % High 11.7-14.4 [facility] Comment on above: Performed By: #### C BCD1 #### [facility] [address] [place] [address] Hematocrit (Bld) [Volume fraction] 37.2 % Normal 34.1-44.9 [facility] Comment on above: Performed By: #### C BCD1 #### [facility] [address] [place] [address] Hemoglobin (Bld) [Mass/Vol] 11.8 g/dL Normal 11.2-15.7 [facility] Comment on above: Performed By: #### C BCD1 #### [facility] [address] [place] [address] MCH (RBC) [Entitic mass] 29.1 pg Normal 25.6-32.2 [facility] Comment on above: Performed By: #### C BCD1 #### [facility] [address] [place] [address] MCHC (RBC) [Mass/Vol] 31.7 % Normal 31.6-34.8 [facility] Comment on above: Performed By: #### C BCD1 #### [facility] [address] [place] [address] MCV (RBC) [Entitic vol] 91.6 fL Normal 79.4-94.8 [facility] Comment on above: Performed By: #### C BCD1 #### [facility] [address] [place] [address] Nucleated RBC (Bld) [#/Vol] 0.04 thou/cmm High 0.00-0.01 [facility] Comment on above: Performed By: #### C BCD1 #### [facility] [address] [place] [address] Nucleated RBC/100 WBC (Bld) [Ratio] 0.2 % Normal 0.0-0.2 [facility] Comment on above: Performed By: #### C BCD1 #### [facility] [address] [place] [address] Platelet mean volume (Bld) [Entitic vol] 10.0 fL Normal 9.4-12.3 [facility] Comment on above: Performed By: #### C BCD1 #### [facility] [address] [place] [address] Platelets (Bld) [#/Vol] 224 thou/cmm Normal 182-369 [facility] Comment on above: Performed By: #### C BCD1 #### [facility] [address] [place] [address] RBC (Bld) [#/Vol] 4.06 mil/cmm Normal 3.93-5.22 [facility] Comment on above: Performed By: #### C BCD1 #### [facility] [address] [place] [address] RDW SD 50.5 fl High 36.4-46.3 [facility] Comment on above: Performed By: #### C BCD1 #### [facility] [address] [place] [address] WBC (Bld) [#/Vol] 23.38 thou/cmm High 3.98-10.04 [facility] Comment on above: Performed By: #### C BCD1 #### [facility] [address] [place] [address] Abs Immature Grans 0.88 thou/cmm High 0.00-0.05 [facility] Comment on above: Performed By: #### C BCD1 #### [facility] [address] [place] [address] Abs. Baso 0.09 thou/cmm High 0.01-0.08 [facility] Comment on above: Result Comment: Smea r scanned; tech agrees with automated differential Performed By: #### C BCD1 #### [facility] [address] [place] [address] Abs. [place] 0.35 thou/cmm Normal 0.27-0.70 [facility] Comment on above: Performed By: #### C BCD1 #### [place] [address] Abs. Neut (ANC) 24.03 thou/cmm High 1.56-6.13 [facility] Comment on above: Performed By: #### C BCD1 #### [place] [address] Basophils/100 WBC (Bld) 0.3 % Normal [facility] Comment on above: Performed By: #### C BCD1 #### [place] [address] Eosinophils (Bld) [#/Vol] 0.03 thou/cmm Normal 0.00-0.31 [facility] Comment on above: Performed By: #### C BCD1 #### [place] [address] Eosinophils/100 WBC (Bld) 0.1 % Normal [facility] Comment on above: Performed By: #### C BCD1 #### [place] [address] Erythrocyte distribution width (RBC) [Ratio] 14.7 % High 11.7-14.4 [facility] Comment on above: Performed By: #### C BCD1 #### [facility] [address] [place] [address] Hematocrit (Bld) [Volume fraction] 36.5 % Normal 34.1-44.9 [facility] Comment on above: Performed By: #### C BCD1 #### [facility] [address] [place] [address] Hemoglobin (Bld) [Mass/Vol] 11.4 g/dL Normal 11.2-15.7 [facility] Comment on above: Performed By: #### C BCD1 #### [facility] [address] [place] [address] Immature Grans 3.00 % Normal [facility] Comment on above: Performed By: #### C BCD1 #### [facility] [address] [place] [address] Lymphocytes (Bld) [#/Vol] 4.00 thou/cmm High 1.18-3.74 [facility] Comment on above: Performed By: #### C BCD1 #### [facility] [address] [place] [address] Lymphocytes/100 WBC (Bld) 13.6 % Normal [facility] Comment on above: Performed By: #### C BCD1 #### [facility] [address] [place] [address] MCH (RBC) [Entitic mass] 29.0 pg Normal 25.6-32.2 [facility] Comment on above: Performed By: #### C BCD1 #### [facility] [address] [place] [address] MCHC (RBC) [Mass/Vol] 31.2 % Low 31.6-34.8 [facility] Comment on above: Performed By: #### C BCD1 #### [facility] [address] [place] [address] MCV (RBC) [Entitic vol] 92.9 fL Normal 79.4-94.8 [facility] Comment on above: Performed By: #### C BCD1 #### [facility] [address] [place], [place] [address] Monocytes/100 WBC (Bld) 1.2 % Normal [facility] Comment on above: Performed By: #### C BCD1 #### [facility] [address] [place], [place] [address] Nucleated RBC (Bld) [#/Vol] 0.03 thou/cmm High 0.00-0.01 [facility] Comment on above: Performed By: #### C BCD1 #### [facility] [address] [place], [place] [address] Nucleated RBC/100 WBC (Bld) [Ratio] 0.1 % Normal 0.0-0.2 [facility] Comment on above: Performed By: #### C BCD1 #### [facility] [address] [place] [address] Platelet mean volume (Bld) [Entitic vol] 10.4 fL Normal 9.4-12.3 [facility] Comment on above: Performed By: #### C BCD1 #### [facility] [address] [place] [id number] Platelets (Bld) [#/Vol] 236 thou/cmm Normal 182-369 [facility] Comment on above: Performed By: #### C BCD1 #### [facility] [address] [place], [place] [address] RBC (Bld) [#/Vol] 3.93 mil/cmm Normal 3.93-5.22 [facility] Comment on above: Performed By: #### C BCD1 #### [facility] [address] [place] [address] RDW SD 50.4 fl High 36.4-46.3 [facility] Comment on above: Performed By: #### C BCD1 #### [facility] [address] [place] [address] Seg Neutrophil 81.8 % Normal [facility] Comment on above: Performed By: #### C BCD1 #### [facility] [address] [place], [place] [address] WBC (Bld) [#/Vol] 29.38 thou/cmm Critically high 3.98-10.0 4 [facility] Comment on above: Performed By: #### C BCD1 #### [facility] [address] [place] [address] Ionized Calciumon 07-17-2018 Ionized Ca,PH7.4 3.75 mg/dL Low 4.61-5.17 [facility] Comment on above: Performed By: #### C BCD1 #### [facility] [address] [place] [address] pH (Bld) 7.330 [pH] Normal 7.320-7.430 [facility] Comment on above: Performed By: #### C BCD1 #### [facility] [address] [place] [address] Ionized Calcium 3.90 mg/dL Low 4.61-5.17 [facility] Comment on above: Performed By: #### C BCD1 #### [place] [address] Lactic Acidon 07-17-2018 Lactate [Moles/Vol] 1.3 mmol/L Normal 0.4-2.0 [facility] Comment on above: Performed By: #### P T #### [place] [address] Lactate [Moles/Vol] 1.6 mmol/L Normal 0.4-2.0 [facility] Comment on above: Performed By: #### C BCD1 #### [place] [address] Lactate [Moles/Vol] 2.5 mmol/L Critically high 0.4-2.0 [facility] Comment on above: Performed By: #### L AC #### [facility] [address] [place] [address] Legionella Ag, Urineon 07-17 Legionella Ag, Urine Test performed at [facility] Presumptive negative for L. pneumophilia serogroup 1 antigen in urine, suggesting no recent or current infection. Infection due to Legionella cannot be ruled out since other serogroups and species may cause disease, antigen may not be present in urine in early infection, and the level of antigen present in the urine may be below the detection limit of the test. Normal [facility] Comment on above: Performed By: #### P T #### [facility] [address] [place] [address] MRSA Screenon 07-17-2018 MRSA DNA LYN+probe Ql (Unsp spec) Test performed at [facility] No MRSA detected. Normal [facility] Comment on above: Performed By: #### P 14 #### [facility] [address] [place] [address] Magnesium Bloodon 07-17-2018 Magnesium [Mass/Vol] 2.1 mg/dL Normal 1.6-2.[address] [facility] Comment on above: Performed By: #### C BCD1 #### [facility] [address] [place] [address] Phosphorus Bloodon 9 Phosphate [Mass/Vol] 3.4 mg/dL Normal 2.5-4.[address] [facility] Comment on above: Performed By: #### C BCD1 #### [facility] [address] [place] [address] Procalcitoninon 07-17-2018 Procalcitonin 28.37 ng/mL Normal [facility] Comment on above: Result Comment: Leve ls <0.50 ng/mL represent a low risk of severe sepsis and/or septic shock, while levels >2.00 ng/mL represent an elevated risk of severe sepsis and/or septic shock. Levels <0.50 ng/mL do not exclude infection, as infections or systemic infections in early stages (<6hrs) can be associated with low concentrations. Levels between 0.50-2.00 ng/mL should be interpreted in the clinical context of the patient, as a variety of conditions such as ho, trauma, surgery and severe cardiogenic shock can cause procalcitonin elevations. Performed By: #### C BCD1 #### [facility] [address] [place] [address] Protimeon 07-17-2018 INR Coag (PPP) [Relative time] 1.08 {INR} Normal 0.90-1.30 [facility] Comment on above: Result Comment: Celina min K Antagonist (VKA) Therapeutic Range: INR 2 to 3 (Target INR of 2.5) Note: For patients treated with VKA drugs, such as warfarin, the [place] [employer] 2012 Guideline recommends a therapeutic INR range of 2 to 3 (target INR of 2.5). This recommendation includes high-risk patients with antiphospholipid syndrome with previous arterial or venous thromboembolism, current-generation mechanical or bioprosthetic aortic heart valve replacement. VKA Therapeutic Range for some Mechanical Valve Replacement: INR 2.5 to 3.5 (Target INR of 3) Note: Patients with mechanical aortic valve replacement and additional risk factors for thromboembolic events (atrial fibrillation, previous thromboembolism, LV dysfunction, hypercoagulable conditions) or an older generation mechanical AVR (i.e., ball in-Cage) or any mechanical MVR should have a INR therapeutic range of 2.5 to 3.5 target INR of 3). Heidi GH, et al. Chest 2012; 141:7S-47S Miranda [place] et al. [facility] 2017; 70: 252-289 Performed By: #### C BCD1 #### [facility] [address] [place], [place] [address] PT Coag (PPP) [Time] 11.2 s Normal 9.7-13.[address] [facility] Comment on above: Performed By: #### C BCD1 #### [facility] [address] [place], [place] [address] INR Coag (PPP) [Relative time] 1.13 {INR} Normal 0.90-1.30 [facility] Comment on above: Result Comment: Celina min K Antagonist (VKA) Therapeutic Range: INR 2 to 3 (Target INR of 2.5) Note: For patients treated with VKA drugs, such as warfarin, the [place] [employer] 2012 Guideline recommends a therapeutic INR range of 2 to 3 (target INR of 2.5). This recommendation includes high-risk patients with antiphospholipid syndrome with previous arterial or venous thromboembolism, current-generation mechanical or bioprosthetic aortic heart valve replacement. VKA Therapeutic Range for some Mechanical Valve Replacement: INR 2.5 to 3.5 (Target INR of 3) Note: Patients with mechanical aortic valve replacement and additional risk factors for thromboembolic events (atrial fibrillation, previous thromboembolism, LV dysfunction, hypercoagulable conditions) or an older generation mechanical AVR (i.e., ball in-Cage) or any mechanical MVR should have a INR therapeutic range of 2.5 to 3.5 target INR of 3). Heidi GH, et al. Chest 2012; 141:7S-47S Miranda RA et al. [facility] 2017; 70: 252-289 Performed By: #### P T #### [place] [address] PT Coag (PPP) [Time] 11.6 s Normal 9.7-13.[address] [facility] Comment on above: Performed By: #### P T #### [place] [address] Strep pneumoniae Agon 2018 Strep pneumoniae Ag Test performed at [facility] Negative for Streptococcus pneumoniae antigen. Presumptive negative for pneumococcal pneumonia, suggesting no current or recent pneumococcal infection. Infection due to S. pneumoniae cannot be ruled out since the antigen present in the sample may be below the detection limit of the test. Normal [facility] Comment on above: Performed By: #### P T #### [place] [address] Troponin Ion 07-17-2018 Troponin I.cardiac [Mass/Vol] 0.419 ng/mL High 0.015-0.045 [facility] Comment on above: Performed By: #### P T #### [place] [address] Troponin I.cardiac [Mass/Vol] 0.135 ng/mL High 0.015-0.045 [facility] Comment on above: Performed By: #### T ROP #### [place] [address] Venous Blood Gason 9 Base Excess -6.9 mmol/L Low -3.0-3.0 [facility] Comment on above: Performed By: #### V BG #### [place] [id number] HCO3 (Bld) [Moles/Vol] 22.9 mmol/L Normal 21.0-30.0 [facility] Comment on above: Performed By: #### V BG #### [facility] [address] [place], [place] [address] O2% Sat Venous 44.2 % Normal 18.0-74.8 [facility] Comment on above: Performed By: #### V BG #### [facility] [address] [place], [place] [address] PCO2 Venous 69.4 mm Hg High 40.6-60.0 [facility] Comment on above: Performed By: #### V BG #### [facility] [address] [place], [place] [address] pH Venous 7.145 Critically low 7.320-7.430 [facility] Comment on above: Performed By: #### V BG #### [facility] [address] [place], [place] [address] PO2 Venous 34.1 mm Hg Normal 15.9-37.5 [facility] Comment on above: Performed By: #### V BG #### [facility] [address] [place], [place] [address] Vital Signs Date Time Vital Sign Value Performing Clinician Facility 02-24-2024 11:09-0500 Body mass index (BMI) [Ratio] 39.43 kg/m2 Lela Mcdaniel APRN.HAMMER SETTER Work Phone: [facility] 02-24-2024 11:09-0500 Body temperature 97.81 [degF] Lela Mcdaniel APRN.HAMMER SETTER Work Phone: [facility] 02-24-2024 11:09-0500 Body weight 114.2 kg Lela Mcdaniel APRN.HAMMER SETTER Work Phone: [facility] 02-24-2024 11:09-0500 Diastolic blood pressure 76 mm[Hg] Lela Mcdaniel APRN.HAMMER SETTER Work Phone: [facility] 02-24-2024 11:09-0500 Heart rate 86 /min Lela Mcdaniel APRN.HAMMER SETTER Work Phone: [facility] 02-24-2024 11:09-0500 Respiratory rate 18 /min Lela Mcdaniel APRN.HAMMER SETTER Work Phone: [facility] 02-24-2024 11:09-0500 SaO2% (BldA) [Mass fraction] 98 % Lela Mcdaniel APRN.HAMMER SETTER Work Phone: [facility] 02-24-2024 11:09-0500 Systolic blood pressure 118 mm[Hg] Lela Mcdaniel APRN.HAMMER SETTER Work Phone: [facility] 12-21-2023 10:16-0400 Heart rate 87 /min DR BLAIR ALAS MD [facility] 12-21-2023 10:16-0400 Respiratory rate 16 /min DR BLAIR ALAS MD [facility] 12-21-2023 08:48-0400 Body height 170.[address] BLAIR ALAS MD [facility] 12-21-2023 08:48-0400 Body temperature 98.06 [degF] DR BLAIR ALAS MD [facility] 12-21-2023 08:48-0400 Body weight 127.[address] BLAIR ALAS MD [facility] 12-21-2023 08:48-0400 Diastolic Blood Pressure Non-Invasive 96 mm[Hg] DR BLAIR ALAS MD [facility] 12-21-2023 08:48-0400 Heart rate 99 /min DR BLAIR ALAS MD [facility] 12-21-2023 08:48-0400 Respiratory rate 16 /min DR BLAIR ALAS MD [facility] 12-21-2023 08:48-0400 Systolic Blood Pressure Non-Invasive 144 mm[Hg] DR BLAIR ALAS MD [facility] 09-02-2023 10:57-0400 Body mass index (BMI) [Ratio] 38.88 kg/m2 Jonathon Cartagena MD Work Phone: [facility] 09-02-2023 10:57-0400 Body temperature 97 [degF] Jonathon Cartagena MD Work Phone: [facility] 09-02-2023 10:57-0400 Body weight 112.6 kg Jonathon Cartagena MD Work Phone: [facility] 09-02-2023 10:57-0400 Diastolic blood pressure 70 mm[Hg] Jonathon Cartagena MD Work Phone: [facility] 09-02-2023 10:57-0400 Heart rate 80 /min Jonathon Cartagena MD Work Phone: [facility] 09-02-2023 10:57-0400 Respiratory rate 21 /min Jonathon Cartagena MD Work Phone: [facility] 09-02-2023 10:57-0400 SaO2% (BldA) [Mass fraction] 99 % Jonathon Cartagena MD Work Phone: [facility] 09-02-2023 10:57-0400 Systolic blood pressure 110 mm[Hg] Jonathon Cartagena MD Work Phone: [facility] 07-14-2023 16:45-0400 Body mass index (BMI) [Ratio] 37.98 kg/m2 Bárbara Lazo APRN.HAMMER SETTER Work Phone: [facility] 07-14-2023 16:45-0400 Body temperature 97.11 [degF] Bárbara Emery-Fred CATTLE SORTER.HAMMER SETTER Work Phone: [facility] 07-14-2023 16:45-0400 Body weight 110 kg Bárbara Lazo CATTLE SORTER.HAMMER SETTER Work Phone: [facility] 07-14-2023 16:45-0400 Diastolic blood pressure 72 mm[Hg] Bárbara Lazo APRN.HAMMER SETTER Work Phone: [facility] 07-14-2023 16:45-0400 Heart rate 86 /min Bárbara Praisler-Wood CATTLE SORTER.HAMMER SETTER Work Phone: [facility] 07-14-2023 16:45-0400 Respiratory rate 16 /min Bárbara Praisler-Wood CATTLE SORTER.HAMMER SETTER Work Phone: [facility] 07-14-2023 16:45-0400 SaO2% (BldA) [Mass fraction] 96 % Bárbara Praisler-Wood CATTLE SORTER.HAMMER SETTER Work Phone: [facility] 07-14-2023 16:45-0400 Systolic blood pressure 112 mm[Hg] Bárbara Praisler-Wood CATTLE SORTER.HAMMER SETTER Work Phone: [facility] 06-06-2023 10:52-0400 Body temperature 97.59 [degF] Krislyn Aberegg PA Work Phone: [facility] 06-06-2023 10:52-0400 Body weight 111.9 kg Krislyn Aberegg PA Work Phone: [facility] 06-06-2023 10:52-0400 Diastolic blood pressure 78 mm[Hg] Krislyn Aberegg PA Work Phone: [facility] 06-06-2023 10:52-0400 Heart rate 78 /min Krislyn Aberegg PA Work Phone: [facility] 06-06-2023 10:52-0400 Respiratory rate 18 /min Krislyn Aberegg PA Work Phone: [facility] 06-06-2023 10:52-0400 SaO2% (BldA) [Mass fraction] 99 % Krislyn Aberegg PA Work Phone: [facility] 06-06-2023 10:52-0400 Systolic blood pressure 110 mm[Hg] Krislyn Aberegg PA Work Phone: [facility] 05-21-2023 14:28-0500 Body temperature 98.4 [degF] Judith Brown APRN.HAMMER SETTER Work Phone: [facility] 05-21-2023 14:28-0500 Body weight 112.49 kg Judith Brown APRN.HAMMER SETTER Work Phone: [facility] 05-21-2023 14:28-0500 Diastolic blood pressure 81 mm[Hg] Judith Brown APRN.HAMMER SETTER Work Phone: [facility] 05-21-2023 14:28-0500 Heart rate 78 /min Judith Brown APRN.HAMMER SETTER Work Phone: [facility] 05-21-2023 14:28-0500 Respiratory rate 18 /min Judith Brown APRN.HAMMER SETTER Work Phone: [facility] 05-21-2023 14:28-0500 SaO2% (BldA) [Mass fraction] 99 % Judith Brown APRN.HAMMER SETTER Work Phone: [facility] 05-21-2023 14:28-0500 Systolic blood pressure 115 mm[Hg] Judith Brown APRN.HAMMER SETTER Work Phone: [facility] 05-20-2023 11:32-0500 Body temperature 97.8 [degF] 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-C Nallely Butler [employer]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 Work Phone: [facility] 05-20-2023 11:32-0500 Diastolic blood pressure 67 mm[Hg] [employer]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-C Nallely Butler S[employer]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 Work Phone: [facility] 05-20-2023 11:32-0500 Heart rate 59 /min 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-C Nallely Butler S[employer]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 Work Phone: [facility] 05-20-2023 11:32-0500 Respiratory rate 16 /min 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-C Nallely Butler S[employer]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 Work Phone: [facility] 05-20-2023 11:32-0500 SaO2% (BldA) [Mass fraction] 98 % 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-C Nallely Butler [employer]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 Work Phone: [facility] 05-20-2023 11:32-0500 Systolic blood pressure 123 mm[Hg] 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-C Nallely Butler [employer]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 Work Phone: 0(091)595-800[address] [place] [address] 05-20-2023 09:23-0500 Body height 170.18 cm 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-Ryder Butler [employer]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 Work Phone: 9(068)284-729898 [place] [address] 05-20-2023 09:23-0500 Body mass index (BMI) [Ratio] 38.8 kg/m2 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-Ryder Butler [employer]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 Work Phone: 7(422)564-264498 [place] [address] 05-20-2023 09:23-0500 Body weight 112.44 kg 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-C Nallely Butler [employer]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 Work Phone: 0(091)046-208998 [place] [address] 03-04-2023 15:50-0500 Body temperature 98 [degF] 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-C Nallely Butler [employer]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 Work Phone: 6(892)197-012898 [place] [address] 03-04-2023 15:50-0500 Diastolic blood pressure 80 mm[Hg] S[employer]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-Ryder Butler [employer]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 Work Phone: 1(413)158-801798 [place] [address] 03-04-2023 15:50-0500 Heart rate 87 /min 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-C Nallely Butler [employer]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 Work Phone: 0(961)878-126698 [place] [address] 03-04-2023 15:50-0500 Respiratory rate 19 /min 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-C Nallely Butler [employer]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 Work Phone: 4(510)641-090798 [place] [address] 03-04-2023 15:50-0500 SaO2% (BldA) [Mass fraction] 91 % 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-Ryder Butler 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 Work Phone: 9(335)299-959798 [place] [address] 03-04-2023 15:50-0500 Systolic blood pressure 136 mm[Hg] S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-C Nallely Butler [employer]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 Work Phone: 3(521)243-651798 [place] [address] 03-04-2023 10:00-0500 Inhaled oxygen flow rate 2 L/min 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-Ryder Butler 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 Work Phone: 7(945)498-867098 [place] [address] 03-04-2023 05:07-0500 Body mass index (BMI) [Ratio] 39.1 kg/m2 S[employer]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-Ryder Butler S[employer]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 Work Phone: [facility] 03-04-2023 05:07-0500 Body weight 113.39 kg S[employer]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-Ryder Butler S[employer]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 Work Phone: [facility] 03-02-2023 09:51-0500 Body height 170.18 cm S[employer]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-Ryder Butler S[employer]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 Work Phone: [facility] 03-01-2023 23:00-0500 Inhaled oxygen concentration 10 % S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-Ryder Butler S[employer]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 Work Phone: [facility] 02-27-2023 02:35-0500 Body height 170.18 cm [facility] 02-27-2023 02:35-0500 Body mass index (BMI) [Ratio] 39.9 kg/m2 [facility] 02-27-2023 02:35-0500 Body temperature 97.3 [degF] [facility] 02-27-2023 02:35-0500 Body weight 115.7 kg [facility] 02-27-2023 02:35-0500 Diastolic blood pressure 128 mm[Hg] [facility] 02-27-2023 02:35-0500 Heart rate 96 /min [facility] 02-27-2023 02:35-0500 Inhaled oxygen flow rate 3 L/min [facility] 02-27-2023 02:35-0500 Respiratory rate 31 /min [facility] 02-27-2023 02:35-0500 SaO2% (BldA) [Mass fraction] 92 % [facility] 02-27-2023 02:35-0500 Systolic blood pressure 139 mm[Hg] [facility] 10-28-2022 15:43-0400 Body weight 122.06 kg Ana Kingsley MD Work Phone: [facility] 10-28-2022 15:43-0400 Diastolic blood pressure 74 mm[Hg] Ana Kingsley MD Work Phone: [facility] 10-28-2022 15:43-0400 Heart rate 98 /min Ana Kingsley MD Work Phone: [facility] 10-28-2022 15:43-0400 Respiratory rate 16 /min Ana Kingsley MD Work Phone: [facility] 10-28-2022 15:43-0400 Systolic blood pressure 126 mm[Hg] Ana Kingsley MD Work Phone: [facility] 10-04-2022 11:56-0400 Body temperature 96.91 [degF] Lela Mcdaniel CATTLE SORTER.HAMMER SETTER Work Phone: [facility] 10-04-2022 11:56-0400 Body weight 121.56 kg Lela Mcdaniel CATTLE SORTER.HAMMER SETTER Work Phone: [facility] 10-04-2022 11:56-0400 Diastolic blood pressure 78 mm[Hg] Lela Mcdaniel CATTLE SORTER.HAMMER SETTER Work Phone: [facility] 10-04-2022 11:56-0400 Heart rate 90 /min Lela Mcdaniel CATTLE SORTER.HAMMER SETTER Work Phone: [facility] 10-04-2022 11:56-0400 Respiratory rate 20 /min Lela Mcdaniel CATTLE SORTER.HAMMER SETTER Work Phone: [facility] 10-04-2022 11:56-0400 SaO2% (BldA) [Mass fraction] 98 % Lela Mcdaniel CATTLE SORTER.HAMMER SETTER Work Phone: [facility] 10-04-2022 11:56-0400 Systolic blood pressure 100 mm[Hg] Lela Mcdaniel CATTLE SORTER.HAMMER SETTER Work Phone: [facility] 05-13-2022 15:27-0500 Body weight 131.09 kg Shayna Davis CATTLE SORTER.CNM Work Phone: [facility] 05-13-2022 15:27-0500 Diastolic blood pressure 70 mm[Hg] Shayna Davis CATTLE SORTER.CNM Work Phone: [facility] 05-13-2022 15:27-0500 Systolic blood pressure 118 mm[Hg] Shayna Davis CATTLE SORTER.CNM Work Phone: [facility] 04-30-2022 15:54-0500 Body height 170.2 cm Shayna Davis CATTLE SORTER.CNM Work Phone: [facility] 04-30-2022 15:54-0500 Body weight 130.09 kg Shayna Davis CATTLE SORTER.CNM Work Phone: [facility] 04-30-2022 15:54-0500 Diastolic blood pressure 88 mm[Hg] Shayna Davis CATTLE SORTER.CNM Work Phone: [facility] 04-30-2022 15:54-0500 Systolic blood pressure 122 mm[Hg] Shayna Davis CATTLE SORTER.CNM Work Phone: [facility] 04-17-2022 16:45-0500 Body temperature 97.5 [degF] Judith Brown APRN.HAMMER SETTER Work Phone: [facility] 04-17-2022 16:45-0500 Body weight 129.37 kg Judith Brown APRN.HAMMER SETTER Work Phone: [facility] 04-17-2022 16:45-0500 Diastolic blood pressure 82 mm[Hg] Judith Brown APRN.HAMMER SETTER Work Phone: [facility] 04-17-2022 16:45-0500 Heart rate 106 /min Judith Brown APRN.HAMMER SETTER Work Phone: [facility] 04-17-2022 16:45-0500 Respiratory rate 18 /min Judith Brown APRN.HAMMER SETTER Work Phone: [facility] 04-17-2022 16:45-0500 SaO2% (BldA) [Mass fraction] 99 % Judith Brown APRN.HAMMER SETTER Work Phone: [facility] 04-17-2022 16:45-0500 Systolic blood pressure 118 mm[Hg] Judith Brown APRN.HAMMER SETTER Work Phone: [facility] 04-14-2022 15:20-0500 Body weight 129.73 kg Nallely Butler CATTLE SORTER.HAMMER SETTER Work Phone: [facility] 04-14-2022 15:20-0500 Diastolic blood pressure 82 mm[Hg] Nallely Haagen CATTLE SORTER.HAMMER SETTER Work Phone: [facility] 04-14-2022 15:20-0500 Heart rate 106 /min Nallely Haagen CATTLE SORTER.HAMMER SETTER Work Phone: [facility] 04-14-2022 15:20-0500 Respiratory rate 18 /min Nallely Haagen CATTLE SORTER.HAMMER SETTER Work Phone: [facility] 04-14-2022 15:20-0500 SaO2% (BldA) [Mass fraction] 97 % Nallely Haagen CATTLE SORTER.HAMMER SETTER Work Phone: [facility] 04-14-2022 15:20-0500 Systolic blood pressure 118 mm[Hg] Nallely Haagen CATTLE SORTER.HAMMER SETTER Work Phone: [facility] 02-25-2022 14:21-0500 Body weight 127.46 kg Marcela Podlogar CATTLE SORTER.HAMMER SETTER Work Phone: [facility] 02-25-2022 14:21-0500 Diastolic blood pressure 80 mm[Hg] Marcela Podlogar CATTLE SORTER.HAMMER SETTER Work Phone: [facility] 02-25-2022 14:21-0500 Heart rate 92 /min Marcela Podlogar CATTLE SORTER.HAMMER SETTER Work Phone: [facility] 02-25-2022 14:21-0500 SaO2% (BldA) [Mass fraction] 97 % Marcela Podlogar CATTLE SORTER.HAMMER SETTER Work Phone: [facility] 02-25-2022 14:21-0500 Systolic blood pressure 132 mm[Hg] Marcela Podlogar CATTLE SORTER.HAMMER SETTER Work Phone: [facility] 02-03-2022 16:31-0500 Body weight 125.65 kg Ana Kingsley MD Work Phone: [facility] 02-03-2022 16:31-0500 Diastolic blood pressure 82 mm[Hg] Ana Kingsley MD Work Phone: [facility] 02-03-2022 16:31-0500 Heart rate 80 /min Ana Kingsley MD Work Phone: [facility] 02-03-2022 16:31-0500 Respiratory rate 16 /min Ana Kingsley MD Work Phone: [facility] 02-03-2022 16:31-0500 Systolic blood pressure 118 mm[Hg] Ana Kingsley MD Work Phone: [facility] 01-30-2022 13:34-0500 Body temperature 97.5 [degF] Lela Jonas CATTLE SORTER.HAMMER SETTER Work Phone: [facility] 01-30-2022 13:34-0500 Body weight 127.55 kg Lela Jonas CATTLE SORTER.HAMMER SETTER Work Phone: [facility] 01-30-2022 13:34-0500 Diastolic blood pressure 78 mm[Hg] Lela Jonas CATTLE SORTER.HAMMER SETTER Work Phone: [facility] 01-30-2022 13:34-0500 Heart rate 102 /min Lela Jonas CATTLE SORTER.HAMMER SETTER Work Phone: [facility] 01-30-2022 13:34-0500 Respiratory rate 16 /min Lela Jonas CATTLE SORTER.HAMMER SETTER Work Phone: [facility] 01-30-2022 13:34-0500 SaO2% (BldA) [Mass fraction] 97 % Lela Jonas CATTLE SORTER.HAMMER SETTER Work Phone: [facility] 01-30-2022 13:34-0500 Systolic blood pressure 112 mm[Hg] Lela Jonas CATTLE SORTER.HAMMER SETTER Work Phone: [facility] 01-02-2022 11:44-0400 Body height 171.5 cm Ana Kingsley MD Work Phone: [facility] 01-02-2022 11:44-0400 Body weight 127.1 kg Ana Kingsley MD Work Phone: [facility] 01-02-2022 11:44-0400 Diastolic blood pressure 78 mm[Hg] Ana Kingsley MD Work Phone: [facility] 01-02-2022 11:44-0400 Heart rate 78 /min Ana Kingsley MD Work Phone: [facility] 01-02-2022 11:44-0400 Respiratory rate 16 /min Ana Kingsley MD Work Phone: [facility] 01-02-2022 11:44-0400 Systolic blood pressure 120 mm[Hg] Ana Kingsley MD Work Phone: [facility] 11-30-2021 13:50-0400 Body temperature 97.11 [degF] Sarah Chrissy CATTLE SORTER.HAMMER SETTER Work Phone: [facility] 11-30-2021 13:50-0400 Body weight 120.66 kg Sarah Chrissy CATTLE SORTER.HAMMER SETTER Work Phone: [facility] 11-30-2021 13:50-0400 Diastolic blood pressure 82 mm[Hg] Sarah Chrissy CATTLE SORTER.HAMMER SETTER Work Phone: [facility] 11-30-2021 13:50-0400 Heart rate 90 /min Sarah Chrissy CATTLE SORTER.HAMMER SETTER Work Phone: [facility] 11-30-2021 13:50-0400 Respiratory rate 18 /min Sarah Chrissy CATTLE SORTER.HAMMER SETTER Work Phone: [facility] 11-30-2021 13:50-0400 SaO2% (BldA) [Mass fraction] 97 % Sarah Chrissy CATTLE SORTER.HAMMER SETTER Work Phone: [facility] 11-30-2021 13:50-0400 Systolic blood pressure 118 mm[Hg] Sarah Chrissy CATTLE SORTER.HAMMER SETTER Work Phone: [facility] 11-28-2021 15:33-0400 Body temperature 98.4 [degF] Mackenzie Hunt CATTLE SORTER.HAMMER SETTER Work Phone: [facility] 11-28-2021 15:33-0400 Body weight 122.11 kg Mackenzie Hunt CATTLE SORTER.HAMMER SETTER Work Phone: [facility] 11-28-2021 15:33-0400 Diastolic blood pressure 80 mm[Hg] Mackenzie Hunt CATTLE SORTER.HAMMER SETTER Work Phone: [facility] 11-28-2021 15:33-0400 Heart rate 96 /min Mackenzie Hunt CATTLE SORTER.HAMMER SETTER Work Phone: [facility] 11-28-2021 15:33-0400 Respiratory rate 18 /min Mackenzie Hunt CATTLE SORTER.HAMMER SETTER Work Phone: [facility] 11-28-2021 15:33-0400 SaO2% (BldA) [Mass fraction] 98 % Mackenzie Hunt CATTLE SORTER.HAMMER SETTER Work Phone: [facility] 11-28-2021 15:33-0400 Systolic blood pressure 130 mm[Hg] Mackenzie Hunt CATTLE SORTER.HAMMER SETTER Work Phone: [facility] 11-11-2021 12:55-0400 Body temperature 97.9 [degF] Lela Jonas CATTLE SORTER.HAMMER SETTER Work Phone: [facility] 11-11-2021 12:55-0400 Body weight 117.94 kg Lela Jonas CATTLE SORTER.HAMMER SETTER Work Phone: [facility] 11-11-2021 12:55-0400 Diastolic blood pressure 76 mm[Hg] Lela Jonas CATTLE SORTER.HAMMER SETTER Work Phone: [facility] 11-11-2021 12:55-0400 Heart rate 101 /min Lela Jonas CATTLE SORTER.HAMMER SETTER Work Phone: [facility] 11-11-2021 12:55-0400 Respiratory rate 24 /min Lela Jonas CATTLE SORTER.HAMMER SETTER Work Phone: [facility] 11-11-2021 12:55-0400 SaO2% (BldA) [Mass fraction] 95 % Lela Jonas CATTLE SORTER.HAMMER SETTER Work Phone: [facility] 11-11-2021 12:55-0400 Systolic blood pressure 118 mm[Hg] Lela Jonas CATTLE SORTER.HAMMER SETTER Work Phone: [facility] 11-06-2021 18:33-0400 Body temperature 97.81 [degF] Judith Brown APRN.HAMMER SETTER Work Phone: [facility] 11-06-2021 18:33-0400 Body weight 119.48 kg Judith Brown APRN.HAMMER SETTER Work Phone: [facility] 11-06-2021 18:33-0400 Diastolic blood pressure 82 mm[Hg] Judith Brown APRN.HAMMER SETTER Work Phone: [facility] 11-06-2021 18:33-0400 Heart rate 103 /min Judith Brown APRN.HAMMER SETTER Work Phone: [facility] 11-06-2021 18:33-0400 Respiratory rate 18 /min Judith Brown APRN.HAMMER SETTER Work Phone: [facility] 11-06-2021 18:33-0400 SaO2% (BldA) [Mass fraction] 97 % Judith Brown APRN.HAMMER SETTER Work Phone: [facility] 11-06-2021 18:33-0400 Systolic blood pressure 124 mm[Hg] Judith Brown APRN.HAMMER SETTER Work Phone: [facility] 05-19-2021 12:25-0500 Body temperature 98.24 [degF] ESTEPHANIA CESPEDES MD [facility] 05-19-2021 12:25-0500 Diastolic blood pressure 86 mm[Hg] ESTEPHANIA CESPEDES MD [facility] 05-19-2021 12:25-0500 Heart rate 96 /min ESTEPHANIA CESPEDES MD [facility] 05-19-2021 12:25-0500 Respiratory rate 20 /min ESTEPHANIA CESPEDES MD [facility] 05-19-2021 12:25-0500 Systolic blood pressure 135 mm[Hg] ESTEPHANIA CESPEDES MD [facility] 08-19-2018 07:52-0400 Body temperature 37.1 Deg [facility] Comment on above: Performed By: #### APTT #### [place] [address] 08-14-2018 05:49-0400 Body temperature 36.9 Deg [facility] Comment on above: Performed By: #### APTT #### [place] [address] 08-13-2018 23:31-0400 Body temperature 36.9 Deg [facility] Comment on above: Performed By: #### APTT #### [place] [address] 08-08-2018 13:15-0400 Body temperature 37.0 Deg [facility] Comment on above: Performed By: #### PT #### [place] [address] 08-07-2018 11:49-0400 Body temperature 38.0 Deg [facility] Comment on above: Performed By: #### PT #### [place] [address] 08-06-2018 11:03-0400 Body temperature 36.6 Deg [facility] Comment on above: Performed By: #### PT #### [place] [address] 08-02-2018 05:37-0400 Body temperature 38.4 Deg [facility] Comment on above: Performed By: #### PT #### [place] [address] 08-02-2018 02:21-0400 Body temperature 38.2 Deg [facility] Comment on above: Performed By: #### PT #### [place] [address] 08-01-2018 23:49-0400 Body temperature 38.7 Deg [facility] Comment on above: Performed By: #### PT #### [facility] [address] [place] [id number] 08-01-2018 22:13-0400 Body temperature 38.2 Deg [facility] Comment on above: Performed By: #### PT #### [place] [address] 08-01-2018 13:14-0400 Body temperature 38.0 Deg [facility] Comment on above: Performed By: #### PT #### [place] [address] 07-31-2018 04:00-0400 Body temperature 38.3 Deg [facility] Comment on above: Performed By: #### CBCD1 #### [place] [address] 07-28-2018 12:40-0400 Body temperature 38.5 Deg [facility] Comment on above: Performed By: #### CBCD1 #### [place] [address] 07-27-2018 05:33-0400 Body temperature 37.0 Deg [facility] Comment on above: Performed By: #### CBCD1 #### [place] [address] 07-26-2018 12:19-0400 Body temperature 37.0 Deg [facility] Comment on above: Performed By: #### CBCD1 #### [place] [address] 07-26-2018 06:42-0400 Body temperature 37.0 Deg [facility] Comment on above: Performed By: #### CBCD1 #### [place] [address] 07-26-2018 00:38-0400 Body temperature 37.0 Deg [facility] Comment on above: Performed By: #### CBCD1 #### [place] [address] 07-25-2018 19:47-0400 Body temperature 37.0 Deg [facility] Comment on above: Performed By: #### CBCD1 #### [place] [address] 07-25-2018 11:41-0400 Body temperature 37.0 Deg [facility] Comment on above: Performed By: #### CBCD1 #### [place] [address] 07-25-2018 06:18-0400 Body temperature 37.0 Deg [facility] Comment on above: Performed By: #### CBCD1 #### [place] [address] 07-24-2018 14:27-0400 Body temperature 37.0 Deg [facility] Comment on above: Performed By: #### ABG #### [place] [address] 07-24-2018 05:22-0400 Body temperature 38.8 Deg [facility] Comment on above: Performed By: #### ABG #### [place] [address] 07-23-2018 14:43-0400 Body temperature 37.0 Deg [facility] Comment on above: Performed By: #### ABG #### [place] [address] 07-23-2018 07:39-0400 Body temperature 37 Deg [facility] Comment on above: Performed By: #### ABG #### [place] [address] 07-22-2018 13:38-0400 Body temperature 37.0 Deg [facility] Comment on above: Performed By: #### LAC #### [place] [address] 07-21-2018 19:46-0400 Body temperature 38.0 Deg [facility] Comment on above: Performed By: #### LAC #### [place] [address] 07-21-2018 10:41-0400 Body temperature 37.0 Deg [facility] Comment on above: Performed By: #### GFR #### [place] [address] 07-20-2018 07:59-0400 Body temperature 37.0 Deg [facility] Comment on above: Performed By: #### GFR #### [place] [address] 07-19-2018 05:41-0400 Body temperature 38.6 Deg [facility] Comment on above: Performed By: #### TROP #### [place] [address] 07-19-2018 03:13-0400 Body temperature 38.9 Deg [facility] Comment on above: Performed By: #### TROP #### [place] [address] 07-18-2018 22:09-0400 Body temperature 38.8 Deg [facility] Comment on above: Performed By: #### P14 #### [place] [address] 07-18-2018 12:23-0400 Body temperature 37.0 Deg [facility] Comment on above: Performed By: #### P14 #### [place] [address] 07-18-2018 11:51-0400 Body temperature 37.0 Deg [facility] Comment on above: Performed By: #### P14 #### [place] [address] 07-18-2018 05:58-0400 Body temperature 38.1 Deg [facility] Comment on above: Performed By: #### APTT #### [place] [address] 07-18-2018 02:15-0400 Body temperature 38.6 Deg [facility] Comment on above: Performed By: #### APTT #### [place] [address] 07-17-2018 22:08-0400 Body temperature 38.2 Deg [facility] Comment on above: Performed By: #### PT #### [facility] [address] [place] [address] 07-17-2018 19:25-0400 Body temperature 37.0 Deg [facility] Comment on above: Performed By: #### PT #### [place] [address] 07-17-2018 16:50-0400 Body temperature 38.4 Deg [facility] Comment on above: Performed By: #### PT #### [place] [address] 07-17-2018 13:58-0400 Body temperature 37.0 Deg [facility] Comment on above: Performed By: #### PT #### [place] [address] 07-17-2018 10:50-0400 Body temperature 37.0 Deg [facility] Comment on above: Performed By: #### PT #### [place] [address] 07-17-2018 00:52-0400 Body temperature 38.8 Deg [facility] Comment on above: Performed By: #### CBCD1 #### [place] [address] 07-17-2018 00:45-0400 Body temperature 37 Deg [facility] Comment on above: Performed By: #### ABG #### [place] [address] 07-17-2018 00:24-0400 Body temperature 37 Deg [facility] Comment on above: Performed By: #### ABG #### [place] [address] 07-16-2018 23:55-0400 Body temperature 37.0 Deg [facility] Comment on above: Performed By: #### VBG #### [place] [address] Encounters Encounter Date Encounter Type Care Provider Facility Start: 01-26-2025 End: 01-26-[address] [facility] Facility:[facility] Start: 01-23-2025 End: 01-23-2025 ambulatory ANA GRANADOS Facility:[facility] Start: 01-06-2025 End: 01-06-2025 ambulatory MOSHE YOU Facility:[facility] Start: 01-04-2025 ambulatory MOSHE MARY Facility:[facility] Start: 12-27-2024 End: 12-27-2024 ambulatory MOSHE YOU Facility:[facility] Start: 12-22-2024 End: 12-22-2024 ambulatory ANA GRANADOS Facility:[facility] Start: 08-24-2024 End: 09-07-2024 Telephone encounter Trev June APRN.HAMMER SETTER Work Phone: Neurology Comment on above: Patient Update; Mack rs ([facility] CPAP order ) Start: 04-21-2024 End: 04-21-[address] [facility] Facility:[facility] Start: 02-24-2024 End: 02-24-2024 ambulatory [place]NA [place] Facility:[facility] Start: 02-24-2024 End: 02-24-2024 Patient encounter procedure Lela Mcdaniel APRN.HAMMER SETTER Work Phone: [facility] Comment on above: Sinobronchitis (Prim marie Dx); Acute otitis media, bilateral; Pneumonia exposure Start: 12-21-2023 End: 12-21-2023 Emergency department patient visit DR BLAIR ALAS MD [facility] Start: 12-11-2023 End: 12-11-2023 Telephone encounter Trev June APRN.HAMMER SETTER Work Phone: Neurology Comment on above: Orders (Faxed most r ecent office note (05/09/2021) to Carolann leslie [facility] at [phone]. Informed DME that this note is the last and most recent for the patient. /) Start: 11-06-2023 Refill Lisbet Carpenter APRN.HAMMER SETTER Work Phone: [facility] Comment on above: Refill Request Start: 09-22-2023 Telephone encounter Trev Darnell APRN.HAMMER SETTER Work Phone: Neurology Comment on above: Orders (Faxed signed CPAP order attention [facility] at [facility]. Received confirmation. //[phone]/) Appointment Start: 09-18-2023 Telephone encounter Trev Darnell APRN.HAMMER SETTER Work Phone: Neurology Comment on above: Orders (Received req uest from [facility] for re-signing of previously sent order due to paperwork. Placed on [employer] desk for signature and review. /) Start: 09-15-2023 Telephone encounter Trev Darnell APRN.HAMMER SETTER Work Phone: Neurology Comment on above: Orders (Faxed and re ceived confirmation of signed CMN and office note attention to divine at [facility] on 09.14.23 at [phone]/) Start: 09-11-2023 Telephone encounter Trev Darnell APRN.HAMMER SETTER Work Phone: Neurology Comment on above: Orders (Received fax ed request for office note and signed CMN from [facility]. Placed on [employer] for signature and review. /) Start: 09-02-2023 End: 09-02-2023 Office outpatient visit 15 minutes Jonathon Cartagena MD Work Phone: [facility] Comment on above: Sore throat (Primary Dx) Start: 08-10-2023 End: 08-10-2023 [facility] Elin Dotson CATTLE SORTER.HAMMER SETTER Work Phone: Psychiatry Comment on above: Recurrent major depr essive disorder, in partial remission (HCC) (Primary Dx); Panic disorder with agoraphobia Start: 08-07-2023 Telephone encounter Trev Darnell APRN.HAMMER SETTER Work Phone: Neurology Comment on above: Orders (Received fax from Janey at [facility] for updated CPAP Rx. //Faxed to Sleep Medicine at [facility] per provider request. Provider back in office 08/24/23) Start: 08-04-2023 Refill Elin villalba CATTLE SORTER.HAMMER SETTER Work Phone: Psychiatry Comment on above: Refill Request Start: 07-14-2023 End: 07-14-2023 Patient encounter procedure Bárbara Lazo CATTLE SORTER.HAMMER SETTER Work Phone: [facility] Comment on above: Urinary frequency (P rimary Dx) Start: 07-02-2023 Refill Elin villalba CATTLE SORTER.HAMMER SETTER Work Phone: Psychiatry Comment on above: Refill Request Start: 06-08-2023 End: 06-08-2023 [facility] Elin Dotson CATTLE SORTER.HAMMER SETTER Work Phone: Psychiatry Comment on above: Major depressive dis order, recurrent episode, moderate (HCC) (Primary Dx); Panic disorder with agoraphobia Start: 06-07-2023 Telephone encounter Ruchi DUMONT Work Phone: [facility] Comment on above: Results Start: 06-06-2023 End: 06-06-2023 Patient encounter procedure Ruchi DUMONT Work Phone: [facility] Comment on above: URI, acute (Primary Dx); Acute otitis media, bilateral Start: 05-22-2023 Telephone encounter Judith Brown APRN.HAMMER SETTER Work Phone: [facility] Comment on above: Results Start: 05-21-2023 End: 05-21-2023 Patient encounter procedure Judith Brown APRN.HAMMER SETTER Work Phone: [facility] Comment on above: Urinary frequency (P rimary Dx); Vaginal discharge Start: 05-20-2023 End: 05-20-2023 Emergency department patient visit SAND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Boo Butler SAND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 Work Phone: [facility] Work Phone: Start: 04-28-2023 Refill Elin villalba CATTLE SORTER.HAMMER SETTER Work Phone: Psychiatry Comment on above: Refill Request Start: 03-04-2023 Non-patient / Non-visit [employer]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-C C hristy Haagen SAND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 Work Phone: [facility] Work Phone: Start: 03-04-2023 End: 03-04-2023 [facility] Elin Dotson CATTLE SORTER.HAMMER SETTER Work Phone: Psychiatry Comment on above: Recurrent major depr essive disorder, in partial remission (HCC) (Primary Dx); Panic disorder with agoraphobia Start: 03-03-2023 Non-patient / Non-visit SAND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-C C hristy Haagen SAND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 Work Phone: [facility] Work Phone: Start: 03-03-2023 Non-patient / Non-visit S[employer]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-C C hristy Haagen SAND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 Work Phone: [facility] Start: 03-02-2023 Non-patient / Non-visit [employer]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-C C hristy Haagen SAND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 Work Phone: [facility] Work Phone: Start: 03-02-2023 Non-patient / Non-visit [employer]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-C C hristy Haagen SAND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 Work Phone: [facility] Start: 03-01-2023 Non-patient / Non-visit S[employer]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-C C hristy Haagen SAND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 Work Phone: [facility] Work Phone: Start: 02-28-2023 Non-patient / Non-visit S[employer]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-C C hristy Haagen SAND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 Work Phone: [facility] Work Phone: Start: 02-27-2023 Non-patient / Non-visit S[employer]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-C C hristy Haagen SAND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 Work Phone: [facility] Start: 02-27-2023 Non-patient / Non-visit S[employer]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-C Ryder Butler SAND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 Work Phone: [facility] Start: 02-27-2023 End: 03-04-2023 [facility]: Start: 02-23-2023 Telephone encounter Keon grant CATTLE SORTER.HAMMER SETTER Work Phone: [facility] Comment on above: Results Start: 01-20-2023 Refill Lisbet Carpenter CATTLE SORTER.HAMMER SETTER Work Phone: [facility] Comment on above: Refill Request Start: 12-14-2022 Refill Lisbet Carpenter CATTLE SORTER.HAMMER SETTER Work Phone: [facility] Comment on above: Refill Request Start: 12-01-2022 End: 12-01-2022 Patient encounter procedure Elin Dotson APRN.HAMMER SETTER Work Phone: Psychiatry Comment on above: No-show for appointm ent (Primary Dx) Start: 12-01-2022 End: 12-01-2022 Telemedicine consultation with patient Elin Dotson APRN.HAMMER SETTER Work Phone: [facility] Start: 10-28-2022 End: 10-28-2022 Patient encounter procedure Ana Kingsley MD Work Phone: [facility] Comment on above: Type 2 diabetes sofya itus without complication, without long- term current use of insulin (HCC) (Primary Dx); Obesity, Class III, BMI 40-49.9 (morbid obesity) (HCC) Start: 10-04-2022 End: 10-04-2022 Patient encounter procedure Lela Mcdaniel APRN.HAMMER SETTER Work Phone: [facility] Comment on above: Lower resp. tract in fection (Primary Dx); Sore throat Start: 09-11-2022 ambulatory Elin villalba APRN.HAMMER SETTER Work Phone: Psychiatry Comment on above: Medication Start: 09-08-2022 Get Medical Advice Nallely Butler APRN.HAMMER SETTER Work Phone: [facility] Comment on above: Valium refill Start: 08-26-2022 Refill Nallely Butler APRN.HAMMER SETTER Work Phone: [facility] Comment on above: Refill Request Start: 08-22-2022 Refill Elin Khris Hoanggur u CATTLE SORTER.HAMMER SETTER Work Phone: Psychiatry Comment on above: Refill Request; Refi ll Request Start: 08-06-2022 Telephone encounter Trev Darnell APRN.HAMMER SETTER Work Phone: Neurology Comment on above: CMN- PAP supplies ([employer]-) Start: 07-21-2022 ambulatory Ana marie MD Work Phone: [facility] [place] Comment on above: Medication Start: 07-14-2022 End: 07-14-2022 [facility] Elin Dotson CATTLE SORTER.HAMMER SETTER Work Phone: Psychiatry Comment on above: Major depressive dis order, recurrent episode, moderate (HCC) (Primary Dx); Panic disorder with agoraphobia Start: 07-08-2022 Refill Nallely Butler APRN.HAMMER SETTER Work Phone: [facility] [place] Comment on above: Refill Request Start: 06-09-2022 Refill Elin Khris Hoanggur u CATTLE SORTER.HAMMER SETTER Work Phone: Psychiatry Comment on above: Refill Request Start: 06-03-2022 ambulatory Carline MCKEON RN.HAMMER SETTER Work Phone: Telemedicine Comment on above: Treatment not availa ble (Primary Dx) Start: 05-26-2022 Refill Elin J Rajgur u CATTLE SORTER.HAMMER SETTER Work Phone: Psychiatry Comment on above: Refill Request Start: 05-15-2022 End: 05-15-2022 [facility] Elin Khris Hoangguprateek CATTLE SORTER.HAMMER SETTER Work Phone: Psychiatry Comment on above: Major depressive dis order, recurrent episode, moderate (HCC) (Primary Dx); Panic disorder with agoraphobia Start: 05-13-2022 End: 05-13-2022 Patient encounter procedure Shayna Davis CATTLE SORTER.CNM Work Phone: OB/Gynecology Comment on above: Vaginal irritation ( Primary Dx); Vaginal burning Start: 05-11-2022 ambulatory Shayna castillo CATTLE SORTER.CNM Work Phone: [facility] Start: 05-11-2022 Follow-up encounter Shayna beckham CATTLE SORTER.CNM Work Phone: OB/Gynecology Comment on above: Follow up Start: 05-06-2022 ambulatory Shayna castillo CATTLE SORTER.CNM Work Phone: OB/Gynecology Comment on above: Question Start: 04-30-2022 End: 04-30-2022 Patient encounter procedure Shayna Davis CATTLE SORTER.CNM Work Phone: OB/Gynecology Comment on above: Encounter for gyneco logical examination (general) (routine) without abnormal findings (Primary Dx); Vaginal discharge; Vaginal odor Start: 04-30-2022 End: 04-30-2022 Patient encounter status Shayna Davis CATTLE SORTER.CNM Work Phone: OB/Gynecology Start: 04-21-2022 Refill Elin villalba CATTLE SORTER.HAMMER SETTER Work Phone: Psychiatry Comment on above: Refill Request Start: 04-18-2022 Telephone encounter Marta laws PA-C Work Phone: [facility] Comment on above: Results Start: 04-17-2022 End: 04-17-2022 Patient encounter procedure Judith Brown CATTLE SORTER.HAMMER SETTER Work Phone: [facility] Comment on above: Urinary frequency (P rimary Dx) Start: 04-14-2022 End: 04-14-2022 Office outpatient visit 25 minutes Nallely Butler CATTLE SORTER.HAMMER SETTER Work Phone: [facility] Comment on above: Type 2 diabetes sofya itus without complication, without long- term current use of insulin (HCC) (Primary Dx); Sore throat; Viral upper respiratory tract infection; Acute otitis media, right; Stage 3a chronic kidney disease (HCC); Anxiety Start: 04-02-2022 Refill Ana marie MD Work Phone: [facility] Comment on above: Refill Request Start: 03-21-2022 Refill Lisbet Souzahof CATTLE SORTER.HAMMER SETTER Work Phone: [facility] Comment on above: Refill Request Start: 03-20-2022 End: 03-20-2022 [facility] Elin Dotson CATTLE SORTER.HAMMER SETTER Work Phone: Psychiatry Comment on above: Major depressive dis order, recurrent episode, moderate (HCC) (Primary Dx); Panic disorder with agoraphobia Start: 03-07-2022 ambulatory Ana marie MD Work Phone: [facility] Start: 03-07-2022 Patient encounter procedure Ana Kingsley MD Work Phone: [facility] Comment on above: Appointment Start: 03-02-2022 Refill Lisbet Souzahof CATTLE SORTER.HAMMER SETTER Work Phone: [facility] Comment on above: Refill Request Start: 02-28-2022 Telephone encounter Marcela rivas APRN.HAMMER SETTER Work Phone: [facility] Comment on above: Results Start: 02-27-2022 ambulatory Marcela Lynn APRN.HAMMER SETTER Work Phone: [facility] [place] Comment on above: X-ray Start: 02-25-2022 End: 02-25-2022 Subsequent hospital visit by physician Xr [facility] [place] Work Phone: Radiology Comment on above: Acute pain of left k nee [M25.562] Start: 02-25-2022 End: 02-25-2022 Patient encounter procedure Marcela Bustoslogmaria luisa CATTLE SORTER.HAMMER SETTER Work Phone: [facility] Comment on above: Acute pain of left k nee (Primary Dx) Start: 02-18-2022 Refill Elin J Rajgur u CATTLE SORTER.HAMMER SETTER Work Phone: Psychiatry Comment on above: Refill Request Start: 02-03-2022 End: 02-03-2022 Patient encounter procedure Ana Kingsley MD Work Phone: [facility] Comment on above: Obesity, Class III, BMI 40-49.9 (morbid obesity) (HCC) (Primary Dx) Start: 01-30-2022 End: 01-30-2022 Patient encounter procedure Lela Mcdaniel APRN.HAMMER SETTER Work Phone: [facility] Comment on above: Sinus pressure (Prim marie Dx); ETD (Eustachian tube dysfunction), bilateral Start: 01-21-2022 Refill Trev sarmiento CATTLE SORTER.HAMMER SETTER Work Phone: Neurology Comment on above: Refill Request Question Start: 01-20-2022 Refill Elin Portillor u CATTLE SORTER.HAMMER SETTER Work Phone: Psychiatry Comment on above: Refill Request Start: 01-20-2022 Refill Elin Portillor u CATTLE SORTER.HAMMER SETTER Work Phone: Psychiatry Comment on above: Refill Request Start: 01-15-2022 Refill Trev sarmiento CATTLE SORTER.HAMMER SETTER Work Phone: Neurology Comment on above: Refill Request Start: 01-02-2022 End: 01-02-2022 Patient encounter procedure Ana Kingsley MD Work Phone: [facility] Comment on above: Obesity, Class II, B IA 35-39.9 (Primary Dx); Major depressive disorder, recurrent episode, moderate (HCC); Type 2 diabetes mellitus without complication, without long-term current use of insulin (HCC); Primary hypertension; Anxiety Start: 12-02-2021 Telephone encounter Sarah Lowe APRN.HAMMER SETTER Work Phone: [facility] Comment on above: Results Refill Request Start: 11-30-2021 ambulatory Anu Pino RN NURSE COUNTER SALES REPRESENTATIVE Comment on above: Urinary Problem Start: 11-30-2021 End: 11-30-2021 Patient encounter procedure Sarah Chrissy CATTLE SORTER.HAMMER SETTER Work Phone: [facility] Comment on above: Vaginal discharge (P rimary Dx); Urinary frequency; Acute vaginitis; Acute effusion of left ear Start: 11-29-2021 Telephone encounter Sarah Lowe CATTLE SORTER.HAMMER SETTER Work Phone: [facility] Comment on above: Results; Orders Start: 11-28-2021 End: 11-28-2021 Patient encounter procedure Mackenzie Hunt CATTLE SORTER.HAMMER SETTER Work Phone: [facility] Comment on above: Urinary frequency (P rimary Dx); Lumbar pain Start: 11-25-2021 Refill Elin villalba CATTLE SORTER.HAMMER SETTER Work Phone: Psychiatry Comment on above: Refill Request Start: 11-11-2021 End: 11-11-2021 Patient encounter procedure Lela Jonas CATTLE SORTER.HAMMER SETTER Work Phone: [facility] Comment on above: COVID-19 (Primary Dx ) Start: 11-07-2021 ambulatory Nallely Butler CATTLE SORTER.HAMMER SETTER Work Phone: [facility] Comment on above: Symptoms Start: 11-06-2021 End: 11-06-2021 Patient encounter procedure Judith Kevin CATTLE SORTER.HAMMER SETTER Work Phone: [facility] Comment on above: Close exposure to [place] VID-19 virus (Primary Dx) Start: 10-24-2021 ambulatory Elin villalba CATTLE SORTER.HAMMER SETTER Work Phone: Psychiatry Comment on above: Medicine Start: 10-20-2021 Refill Trev sarmiento CATTLE SORTER.HAMMER SETTER Work Phone: Neurology Comment on above: Refill Request Start: 09-11-2021 Telephone encounter Trev Darnell CATTLE SORTER.HAMMER SETTER Work Phone: Neurology Comment on above: CMN- PAP supplies (F reshAIre) Start: 09-10-2021 Refill Lisbet Carpenter CATTLE SORTER.HAMMER SETTER Work Phone: [facility] Comment on above: Refill Request Start: 08-30-2021 End: 08-30-2021 [facility] Elin Dotson CATTLE SORTER.HAMMER SETTER Work Phone: Psychiatry Comment on above: Encounter for long-t erm (current) use of medications (Primary Dx); Panic disorder with agoraphobia; Major depressive disorder, recurrent episode, moderate (HCC) Start: 08-21-2021 Refill Elin villalba CATTLE SORTER.HAMMER SETTER Work Phone: Psychiatry Comment on above: Refill Request Start: 08-18-2021 Refill Lisbet Carpenter CATTLE SORTER.HAMMER SETTER Work Phone: [facility] Comment on above: Refill Request Start: 07-27-2021 Refill Trev sarmiento CATTLE SORTER.HAMMER SETTER Work Phone: Neurology Comment on above: Refill Request Start: 07-20-2021 Get Medical Advice Elin Dotson CATTLE SORTER.HAMMER SETTER Work Phone: Psychiatry Comment on above: Refill Start: 07-13-2021 Refill Trev sarmiento CATTLE SORTER.HAMMER SETTER Work Phone: Neurology Comment on above: Refill Request Start: 06-20-2021 Get Medical Advice Nallely Butler CATTLE SORTER.HAMMER SETTER Work Phone: [facility] Comment on above: Refill Start: 05-19-2021 End: 05-19-2021 Emergency department patient visit ESTEPHANIA CESPEDES MD [facility] Start: 12-28-2019 End: 12-28-2019 Subsequent hospital visit by physician Xr [facility] Work Phone: Radiology Comment on above: Foot pain, left [[id number]] Procedures Date Procedure Procedure Detail Performing Clinician Start: 09-02-2023 STREP A MOLECULAR (POC) Mackenzie Hunt CATTLE SORTER.HAMMER SETTER Work Phone: Start: 07-14-2023 Urnls dip stick/tabl et rgnt auto w/o microscopy Bárbara Lazo CATTLE SORTER.HAMMER SETTER Work Phone: Start: 05-21-2023 Urnls dip stick/tabl et rgnt auto w/o microscopy Marta Carlson PA-C Work Phone: Start: 05-20-2023 X-ray of radius and ulna [employer]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-C Nallely Hacecilia SAND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 Work Phone: Start: 05-20-2023 Plain x-ray of wrist 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 -C Nallely Hacecilia SAND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 Work Phone: Start: 02-27-2023 Bacteria identified in Blood by Culture [employer]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-C Nallely Hacecilia SAND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 Work Phone: Start: 02-27-2023 Coronavirus COVID-19 PCR 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-C Nallely Mahmoodcecilia SAND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 Work Phone: Start: 02-27-2023 Legionella pneumophi la antigen assay 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-C Nallely Hacecilia SAND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 Work Phone: Start: 02-27-2023 Streptococcus pneumo niae Antigen (M 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-C Nallely Mahmoodcecilia SAND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 Work Phone: Start: 02-27-2023 Plain chest X-ray 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-C Nallely Mahmoodcecilia SAND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 Work Phone: Start: 02-26-2023 Plain chest X-ray Start: 10-04-2022 STREP A MOLECULAR (POC) Ruchi Painter PA Work Phone: Start: 05-13-2022 Urnls dip stick/tabl et rgnt auto w/o microscopy Shayna Davis CATTLE SORTER.CNM Work Phone: Start: 04-17-2022 Urnls dip stick/tabl et rgnt auto w/o microscopy Marta Carlson PA-C Work Phone: Start: 04-14-2022 STREP A MOLECULAR (POC) Nallely Butler CATTLE SORTER.HAMMER SETTER Work Phone: Start: 04-14-2022 Hemoglobin A1c/Hemoglobin.total in Blood Nallely Butler CATTLE SORTER.HAMMER SETTER Work Phone: Start: 02-25-2022 Radiologic exam knee complete 4/more views Marcela Lynn CATTLE SORTER.HAMMER SETTER Work Phone: Start: 11-30-2021 Urnls dip stick/tabl et rgnt auto w/o microscopy Sarah Lowe CATTLE SORTER.HAMMER SETTER Work Phone: Start: 11-28-2021 Urnls dip stick/tabl et rgnt auto w/o microscopy Mackenzie Hunt CATTLE SORTER.HAMMER SETTER Work Phone: Start: 12-28-2019 Radex foot complete minimum 3 views Marta Carlson PA-C Work Phone: Start: 08-19-2018 Antibody screen Comment on above: Performed By: #### A PTT #### [place] [id number] Start: 08-13-2018 Antibody screen Comment on above: Performed By: #### A PTT #### [place] [id number] Start: 08-08-2018 Antibody screen Comment on above: Performed By: #### P T #### [place] [id number] Start: 07-29-2018 Antibody screen Comment on above: Performed By: #### C BCD1 #### [place] [id number] Start: 07-25-2018 Antibody screen Comment on above: Performed By: #### C BCD1 #### [place] [id number] Start: 07-16-2018 H/O: hysterectomy History of hystere ctomy Nallely Butler CATTLE SORTER.HAMMER SETTER Work Phone: H/O: hysterectomy ESTEPHANIA CREWS MD Plan of Treatment Date Care Activity Detail Author Start: 02-23-2025 BP Controlled (<130/80) BP Controlle d (<130/80) [facility] Start: 11-21-2024 Influenza vaccination Influenz a Vaccine (Season Ended) [facility] Start: 10-11-2024 Urine microalbumin profile [facility] Start: 09-01-2024 BP Controlled (<130/80) BP Controlle d (<130/80) [facility] Start: 07-13-2024 BP Controlled (<130/80) BP Controlle d (<130/80) [facility] Start: 06-05-2024 BP Controlled (<130/80) BP Controlle d (<130/80) [facility] Start: 02-24-2024 BP Controlled (<130/80) BP Controlle d (<130/80) [facility] Start: 2023 Screening for malign ant neoplasm of breast Mammogram Screening [facility] Start: 11-22-2023 Covid-19 Vaccine ( season) Covid-19 Vaccine () [facility] Start: 11-22-2023 Covid-19 Vaccine () Covid-19 Vaccine () [facility] Start: 11-22-2023 Influenza vaccination [facility] Start: 10-29-2023 ANNUAL PCP TEAM [employer] PROJECT MANAGER FRANSISCA DISEASE VISIT ANNUAL PCP TEAM CHRONIC DISEASE VISIT [facility] Start: 10-29-2023 BP CONTROLLED (<130/80) BP CONTROLLE D (<130/80) [facility] Start: 10-05-2023 BP CONTROLLED (<130/80) BP CONTROLLE D (<130/80) [facility] Start: 08-10-2023 End: 08-10-2023 Follow-up encounter 08/10/2023 8:30 AM EDT [facility] [address] [place] [address] Elin Dotson, CATTLE SORTER.HAMMER SETTER [address] [place] [address] 2 MONTH FOLLOW UP Psychiatry Comment on above: 2 MONTH FOLLOW UP Start: 08-07-2023 ANNUAL PCP TEAM [employer] PROJECT MANAGER FRANSISCA DISEASE VISIT ANNUAL PCP TEAM CHRONIC DISEASE VISIT [facility] Start: 06-05-2023 BP CONTROLLED (<130/80) BP CONTROLLE D (<130/80) [facility] Start: 05-20-2023 [facility] Start: 05-13-2023 BP CONTROLLED (<130/80) BP CONTROLLE D (<130/80) [facility] Start: 04-14-2023 ANNUAL PCP TEAM [employer] PROJECT MANAGER FRANSISCA DISEASE VISIT ANNUAL PCP TEAM CHRONIC DISEASE VISIT [facility] Start: 04-04-2023 Complete blood count Hemoglobin/Mode tocrit [facility] Start: 04-04-2023 Creatinine measurement Serum Creatin ine [facility] Start: 04-04-2023 HEMOGLOBIN/HEMATOCRIT HEMOGLOBIN/HEM ATOCRIT [facility] Start: 04-04-2023 Hepatitis B surface antibody level LDL CHOLESTEROL [facility] Start: 04-04-2023 SERUM CREATININE SERUM CREATININE Cl [facility] Start: 03-19-2023 HPV TESTING HPV TESTING [facility] Start: 03-19-2023 PAP TESTING PAP TESTING [facility] Start: 03-19-2023 Screening for malign ant neoplasm of cervix [facility] Start: 03-10-2023 Blood chemistry [facility] Start: 03-09-2023 Blood chemistry [facility] Start: 03-08-2023 BP CONTROLLED (<130/80) BP CONTROLLE D (<130/80) [facility] Start: 03-08-2023 Blood chemistry [facility] Start: 03-07-2023 Blood chemistry [facility] Start: 03-06-2023 Blood chemistry [facility] Start: 03-05-2023 Blood chemistry [facility] Start: 03-04-2023 Patient discharge [facility] Start: 03-02-2023 Care planning and pr oblem solving actions [facility] Start: 02-28-2023 Physiotherapy of chest [facility] Start: 02-27-2023 Bacteria identified in Blood by Culture Blood Culture [facility] Start: 02-27-2023 Continuous pulse oximetry [facility] Start: 02-27-2023 Incentive spirometry [facility] Start: 02-27-2023 Plain chest X-ray Chest 1 View (Port able) [facility] Start: 02-27-2023 Oxygen therapy [facility] Start: 02-27-2023 Following clinical pathway protocol [facility] Start: 02-27-2023 Cardiac monitoring [facility] Start: 02-27-2023 Catheterization of vein [facility] Start: 02-27-2023 Consultation [facility] Start: 02-27-2023 Continuous pulse oximetry [facility] Start: 02-27-2023 Notification of physician [facility] Start: 02-27-2023 [facility] Start: 02-27-2023 Taking nasal swab [facility] Start: 02-27-2023 Bacterial nucleic ac id assay [facility] Start: 02-27-2023 End: 02-27-2023 Blood culture [facility] Start: 02-27-2023 Contact precautions [facility] Start: 02-27-2023 Respiratory secretio n precautions [facility] Start: 02-27-2023 Streptococcus pneumo niae antigen assay [facility] Start: 02-27-2023 Admission procedure [facility] Start: 02-27-2023 Continuous positive airway pressure ventilation treatment [facility] Start: 02-27-2023 Dual pressure sponta neous ventilation support [facility] Start: 02-27-2023 Inhalation therapy procedure [facility] Start: 02-26-2023 [facility] Start: 02-25-2023 ANNUAL PCP TEAM [employer] PROJECT MANAGER FRANSISCA DISEASE VISIT ANNUAL PCP TEAM CHRONIC DISEASE VISIT [facility] Start: 02-03-2023 ANNUAL PCP TEAM [employer] PROJECT MANAGER FRANSISCA DISEASE VISIT ANNUAL PCP TEAM CHRONIC DISEASE VISIT [facility] Start: 01-30-2023 BP CONTROLLED (<130/80) BP CONTROLLE D (<130/80) [facility] Start: 01-02-2023 ANNUAL PCP TEAM [employer] PROJECT MANAGER FRANSISCA DISEASE VISIT ANNUAL PCP TEAM CHRONIC DISEASE VISIT [facility] Start: 01-02-2023 BP CONTROLLED (<130/80) BP CONTROLLE D (<130/80) [facility] Start: 11-21-2022 Covid-19 Vaccine ( season) Covid-19 Vaccine ( season) [facility] Start: 11-21-2022 Influenza vaccination C [facility] Start: 11-11-2022 BP CONTROLLED (<130/80) BP CONTROLLE D (<130/80) [facility] Start: 10-12-2022 Hemoglobin A1c measurement HbA1C [facility] Start: 10-12-2022 Hemoglobin A1c/Hemoglobin.total in Blood HBA1C [facility] Start: 06-03-2022 3 comp foot exam completed DIABETIC FOOT EXAM [facility] Start: 06-03-2022 ANNUAL PCP TEAM [employer] PROJECT MANAGER FRANSISCA DISEASE VISIT ANNUAL PCP TEAM CHRONIC DISEASE VISIT [facility] Start: 06-03-2022 Diabetic foot examination Diabetic F oot Exam [facility] Start: 04-04-2022 End: 06-04-2022 Hemoglobin A1c in Blood HGB A1C Lab Routine Obesity, Class III, BMI 40-49.9 (morbid obesity) (HCC) Type 2 diabetes mellitus without complication, without long-term current use of insulin (HCC) Expected: 04/04/2022 (Approximate), Expires: 06/04/2022 [facility] Work Phone: Comment on above: Expected: 04/04/2022 (Approximate), Expires: 06/04/2022 Start: 04-04-2022 End: 06-04-2022 Lipid 1996 panel - Serum or Plasma LIPID PANEL BASIC Lab Routine Type 2 diabetes mellitus without complication, without long-term current use of insulin (HCC) Expected: 04/04/2022, Expires: 06/04/2022 [facility] Work Phone: Comment on above: Expected: 04/04/2022 , Expires: 06/04/2022 Start: 04-03-2022 End: 06-03-2022 Comprehensive metabolic 2000 panel - Serum or Plasma COMP METABOLIC PANEL Lab Routine Dysthymic disorder Anxiety Expected: 04/03/2022, Expires: 06/03/2022 [facility] Work Phone: Comment on above: Expected: 04/03/2022 , Expires: 06/03/2022 Start: 12-24-2021 COVID-19 VACCINE (#1) COVID-19 VACCI NE (#1) [facility] Comment on above: Postponed from 12/12 (Declined at this time) Postponed from 06/11 (Declined at this time) Start: 12-24-2021 COVID-19 VACCINE (1) COVID-19 VACCIN E (1) [facility] Comment on above: Postponed from 12/12 (Declined at this time) Start: 11-30-2021 End: 01-30-2022 Bacteria identified in Urine by Culture [facility] Work Phone: Comment on above: Expected: 11/30/2021 , Expires: 01/30/2022 Start: 11-21-2021 Influenza vaccination C [facility] Start: 11-06-2021 Hemoglobin A1c/Hemoglobin.total in Blood HBA1C [facility] Start: 11-06-2021 End: 11-20-2021 Influenza virus A and B RNA and SARS-CoV-2 (COVID-19) N gene panel - Respiratory specimen by LYN with probe detection COVID WITH FLUA+B, ROUTINE Microbiology Routine Close exposure to COVID-19 virus Expected: 11/06/2021, Expires: 11/20/2021 [facility] Work Phone: Comment on above: Expected: 11/06/2021 , Expires: 11/20/2021 Start: 07-29-2021 End: 09-28-2021 VITAMIN D 25 HYDROXY VITAMIN D 25 HYDROXY Lab Routine Vitamin D deficiency Expected: 07/29/2021, Expires: 09/28/2021 [facility] Work Phone: Comment on above: Expected: 07/29/2021 , Expires: 09/28/2021 Start: 07-23-2021 Hepatitis B surface antibody level LDL CHOLESTEROL [facility] Start: 04-02-2021 Hepatitis B screening URINE ALBUMIN:CREATININE RATIO [facility] Start: 03-20-2021 Glaucoma screening Dilated Retinal E xam [facility] Start: 03-20-2021 Hepatitis C antibody , confirmatory test DILATED RETINAL EXAM [facility] Start: 10-29-2019 PNEUMOCOCCAL (2 - PCV) PNEUMOCOCCAL (2 - PCV) [facility] Start: 12-12-2002 HEPATITIS B (1 of 3 - Risk 3-dose series) HEPATITIS B (1 of 3 - Risk 3-dose series) [facility] Start: 12-12-2002 Hepatitis B Vaccine (1 of 3 - 19+ 3-dose series) Hepatitis B Vaccine (1 of 3 - 19+ 3-dose series) [facility] Start: 12-12-2001 BP CONTROLLED (<130/80) BP CONTROLLE D (<130/80) [facility] Start: 06-11-1984 COVID-19 VACCINE (#1) COVID-19 VACCI NE (#1) [facility] Start: 1983 HEPATITIS B (1 of 3 - 3-dose series) HEPATITIS B (1 of 3 - 3-dose series) [facility] Start: 1983 Hepatitis B Vaccine (1 of 3 - 3-dose series) Hepatitis B Vaccine (1 of 3 - 3-dose series) [facility] Bacteria identified in Urine by Culture URINE CULTURE Microbiology Routine Urinary frequency 11/28/2021 4:11 PM EDT [facility] Work Phone: Bacteria identified in Urine by Culture URINE CULTURE Microbiology Routine Urinary frequency Ordered: 04/17/2022 [facility] Work Phone: Comment on above: Ordered: 04/17/2022 Bacteria identified in Urine by Culture URINE CULTURE Microbiology Routine Urinary frequency 05/21/2023 2:47 PM EST [facility] Work Phone: Bacteria identified in Urine by Culture URINE CULTURE Microbiology Routine Urinary frequency 07/14/2023 5:07 PM EDT [facility] Work Phone: BACTERIAL VAGINOSIS AMPLIFICATION BACTERIAL VAGINOSIS AMPLIFICATION Lab Routine Vaginal discharge Acute vaginitis Ordered: 11/30/2021 [facility] Work Phone: Comment on above: Ordered: 11/30/2021 BACTERIAL VAGINOSIS AMPLIFICATION BACTERIAL VAGINOSIS AMPLIFICATION Lab Routine Urinary frequency Ordered: 04/17/2022 [facility] Work Phone: Comment on above: Ordered: 04/17/2022 BACTERIAL VAGINOSIS AMPLIFICATION BACTERIAL VAGINOSIS AMPLIFICATION Lab Routine Vaginal discharge Vaginal odor 04/30/2022 4:27 PM EST [facility] Work Phone: BACTERIAL VAGINOSIS AMPLIFICATION BACTERIAL VAGINOSIS AMPLIFICATION Lab Routine Vaginal irritation 05/13/2022 3:54 PM EST [facility] Work Phone: BACTERIAL VAGINOSIS NAAT BACTERI AL VAGINOSIS NAAT Lab Routine Urinary frequency 05/21/2023 2:47 PM EST [facility] Work Phone: LOVE / TRICHOMONA S AMPLIFICATION LOVE / TRICHOMONAS AMPLIFICATION Microbiology Routine Vaginal discharge Acute vaginitis Ordered: 11/30/2021 [facility] Work Phone: Comment on above: Ordered: 11/30/2021 LOVE / TRICHOMONA S AMPLIFICATION LOVE / TRICHOMONAS AMPLIFICATION Microbiology Routine Urinary frequency Ordered: 04/17/2022 [facility] Work Phone: Comment on above: Ordered: 04/17/2022 LOVE / TRICHOMONA S AMPLIFICATION LOVE / TRICHOMONAS AMPLIFICATION Microbiology Routine Vaginal discharge Vaginal odor 04/30/2022 4:27 PM [facility] Work Phone: LOVE / TRICHOMONA S AMPLIFICATION LOVE / TRICHOMONAS AMPLIFICATION Microbiology Routine Vaginal irritation 05/13/2022 3:54 PM [facility] Work Phone: LOVE/TRICHOMONAS NAAT LOVE /TRICHOMONAS NAAT Lab Routine Vaginal discharge 05/21/2023 2:47 PM [facility] Work Phone: Chlamydia trachomatis+Neisseria gonorrhoeae DNA [Presence] in Unspecified specimen by LYN with probe detection GC/CHLAMYDIA DNA DET Lab Routine Vaginal discharge Acute vaginitis Ordered: 11/30/2021 [facility] Work Phone: Comment on above: Ordered: 11/30/2021 Chlamydia trachomatis+Neisseria gonorrhoeae DNA [Presence] in Unspecified specimen by LYN with probe detection GC/CHLAMYDIA DNA DET Lab Routine Urinary frequency Ordered: 04/17/2022 [facility] Work Phone: Comment on above: Ordered: 04/17/2022 Chlamydia trachomatis+Neisseria gonorrhoeae DNA [Presence] in Unspecified specimen by LYN with probe detection GC/CHLAMYDIA DNA DET Lab Routine Vaginal irritation 05/13/2022 3:54 PM [facility] Work Phone: Comprehensive metabo lic 2000 panel - Serum or Plasma COMP METABOLIC PANEL Lab Routine Dysthymic disorder Anxiety 04/04/2022 7:17 AM [facility] Work Phone: COVID & INFLUENZA A/ B & RSV NAAT, ROUTINE COVID & INFLUENZA A/B & RSV NAAT, ROUTINE Microbiology Routine URI, acute Ordered: 06/06/2023 [facility] Work Phone: Comment on above: Ordered: 06/06/2023 End: 08-30-2022 ECG COMPLETE ECG COMPLETE ECG Routine Panic disorder with agoraphobia Encounter for long-term (current) use of medications 1 Occurrences starting 08/30/2021 until 08/30/2022 [facility] Work Phone: Comment on above: 1 Occurrences starti ng 08/30/2021 until 08/30/2022 Influenza virus A an d B and Respiratory syncytial virus RNA panel - Upper respiratory specimen by LYN with probe detection [facility] Influenza virus A an d B RNA and SARS-CoV-2 (COVID-19) N gene panel - Respiratory specimen by LYN with probe detection COVID WITH FLUA+B, ROUTINE Microbiology Routine Sinus pressure Ordered: 01/30/2022 [facility] Work Phone: Comment on above: Ordered: 01/30/2022 Influenza virus A an d B RNA and SARS-CoV-2 (COVID-19) N gene panel - Respiratory specimen by LYN with probe detection COVID WITH FLUA+B, ROUTINE Microbiology Routine Sore throat Viral upper respiratory tract infection 04/14/2022 4:18 PM [facility] Work Phone: Legionella pneumophi la Ag [Presence] in Urine [facility] Patient Education [facility] Work Phone: Patient referral [facility] Work Phone: Respiratory pathogen s DNA and RNA panel - Respiratory specimen by LYN with probe detection [facility] End: 03-27-2023 XR KNEE GENERAL 4V AP BOTH/PA BOTH/LAT/MERC LEFT XR KNEE GENERAL 4V AP BOTH/PA BOTH/LAT/MERC LEFT Radiology Routine Acute pain of left knee 1 Occurrences starting 02/25/2022 until 03/27/2023 [facility] Work Phone: Comment on above: 1 Occurrences starti ng 02/25/2022 until 03/27/2023 XR KNEE GENERAL 4V A P BOTH/PA BOTH/LAT/MERC LEFT XR KNEE GENERAL 4V AP BOTH/PA BOTH/LAT/MERC LEFT Radiology Routine Acute pain of left knee 02/25/2022 3:06 PM EST [facility] Work Phone: [facility] Immunizations Immunization Date Immunization Notes Care Provider Fa [facility] 08-06-2022 pneumococcal (PCV20) vaccine, 20 valent (PREVNAR 20) Trev June CATTLE SORTER.HAMMER SETTER Work Phone: [facility] 08-06-2022 pneumococcal 20-flip nt conjugate vaccine DR BLAIR ALAS MD [facility] 10-28-2018 pneumococcal polysaccharide vaccine, 23 valent Nallely Haagen CATTLE SORTER.HAMMER SETTER Work Phone: [facility] 02-16-2018 influenza virus vaccine, unspecified formulation Lisbet Carpenter CATTLE SORTER.HAMMER SETTER Work Phone: [facility] 10-11-2014 tetanus toxoid, redu vadim diphtheria toxoid, and acellular pertussis vaccine, adsorbed Nallely Haagen CATTLE SORTER.HAMMER SETTER Work Phone: [facility] 05-27-2013 tuberculin skin test ; purified protein derivative solution, intradermal Trev Chenlin CATTLE SORTER.HAMMER SETTER Work Phone: [facility] 05-20-2013 tuberculin skin test ; purified protein derivative solution, intradermal Trev Chenlin CATTLE SORTER.HAMMER SETTER Work Phone: [facility] 02-02-2008 influenza virus vaccine, unspecified formulation Nallely Haagen CATTLE SORTER.HAMMER SETTER Work Phone: [facility] 02-23-2006 influenza virus vaccine, unspecified formulation Nallely Butler APRN.HAMMER SETTER Work Phone: [facility] Payers Date Payer Category Payer Self-pay [id number] 2022 Unknown [id number] 2018 Medicaid [place] [id number] 2018-Present [phone] [address] [place] [address] Medicaid [id number] 2018 Medicaid [id number] 1983 Unknown [id number] Unknown [id number] Unknown [id number] Unknown [id number] Social History Date Type Detail Facility Start: 07-17-2003 End: 02-24-2024 Light tobacco smoker (finding) [facility] Sex Assigned At [facility] Start: 07-17-2003 End: 07-16-2018 History of tobacco use Cigarette Smoker [facility] Work Phone: Start: 09-18-2020 End: 08-06-2022 Cigarettes smoked current (pack per day) - Reported 0.5 [facility] Start: 09-18-2020 End: 02-24-2024 Tobacco use and exposure Smokeless tobacco non-user [facility] Work Phone: Start: 06-03-2021 End: 02-24-2024 Alcohol intake Current non-drinker of alcohol (finding) [facility] Start: 06-03-2021 End: 02-25-2022 History SDOH Alcohol Frequency 1 [facility] Start: 06-03-2021 End: 02-25-2022 History SDOH Social Connections Phone 3 [facility] Start: 06-03-2021 End: 02-25-2022 History SDOH Social Connections Membership 2 [facility] Start: 06-03-2021 History SDOH Physica l Activity DPW 7 [facility] Start: 06-03-2021 History SDOH Physica l Activity MPS 15 [facility] Start: 06-03-2021 End: 02-25-2022 History SDOH Stress 5 [facility] Start: 01-31-2020 End: 02-25-2022 Education 9 [facility] Start: 09-18-2020 End: 11-06-2021 Tobacco Comment with anxiety [facility] Start: 1985 Sex Assigned At Not on file C [facility] Start: 11-28-2019 End: 02-03-2022 Exposure to SARS-CoV-2 (event) Not sure [facility] Start: 10-22-2021 End: 11-01-2021 Exposure to SARS-CoV-2 (event) Unable to assess [facility] Work Phone: Start: 02-25-2022 History SDOH Alcohol Std Drinks 0 [facility] Start: 02-25-2022 History SDOH Social Connections Living 6 [facility] Start: 02-25-2022 End: 08-06-2022 Social connection and isolation panel [facility] Do you belong to any clubs or organizations such as yarsanism groups, unions, fraternal or athletic groups, or school groups? No [facility] Are you now , , , , never or living with a partner? [facility] How often to you hav e a drink containing alcohol? Never [facility] How many standard dr inks containing alcohol do you have on a typical day? Patient does not drink [facility] How hard is it for y ou to pay for the very basics like food, housing, medical care, and heating Somewhat hard [facility] Do you feel stress - tense, restless, nervous, or anxious, or unable to sleep at night because your mind is troubled all the time - these days [OSQ] Very much [facility] (I/We) worried kristyn er (my/our) food would run out before (I/we) got money to buy more. Sometimes true [facility] The food that (I/we) bought just didn't last, and (I/we) didn't have money to get more. Never true [facility] Start: 02-27-2023 End: 05-20-2023 Tobacco smoking status NMIS Unknown if ever smoked [facility] Start: 09-03-2020 None [facility] Start: 09-03-2020 Homeless [facility] Start: 04-19-2020 Cigarettes [facility] Start: 1985 Sex Assigned At Female [facility] Start: 09-20-2018 Tobacco smoking stat us NMIS Ex-smoker [facility] Start: 07-17-2003 End: 07-16-2018 History of tobacco use Current smoker [facility] In the past 12 month s, was there a time when you were not able to pay the mortgage or rent on time? Yes [facility] Start: 09-12-2019 Education 8 [facility] NEGATED: Highlighted row [facility] Medical Equipment Procedure Code Equipment Code Equipment Origin al Text Equipment Identifier Dates Tube Shiley Tracheosoft Xlt 11mm 6mm 6 Xl 95mm Tracheostomy Extended Length - [id number] Start: 08-04-2018 [id number], [id number], [id number], [id number], [id number] Start: 08-23-2019 End: 03-02-2022 Comment on above: Test blood sugar(s) 1 times daily. Dx: Type 2 DM - Controlled E11.9 Insulin: No Test blood sugar(s) 1 times daily. Dx: Other DM Code R73.03 Insulin: No CLIP,FILSHIE SYSTEM FDA Start : 05-26-2017 CLIP,FILSHIE SYSTEM FDA Start : 05-26-2017 CLIP,FILSHIE SYSTEM FDA Start : 05-26-2017 Goals Date Patient Goal Desired Activity /State Personal health goal Personal health goal Functional Status Date Assessment Result Facility 12-21-2023 Functional Status Awake Madeline hassan [facility] 12-21-2023 Functional Status Room check performed [facility] 03-04-2023 Functional status Up ad ryan [facility] Work Phone: 03-03-2023 Functional status None [facility] Work Phone: 09-16-2018 Are you deaf, or do you have serious difficulty hearing No 09/16/2018 2:14 PM EDT Alessandro Garvin, RN No [facility] 09-16-2018 Are you blind, or do you have serious difficulty seeing, even when wearing glasses No 09/16/2018 2:14 PM EDAlessandro Orosco, RN No [facility] 09-16-2018 Do you have serious difficulty walking or climbing stairs No 09/16/2018 2:14 PM EDT Alessandro Garvin, WHITNEY No [facility] 09-16-2018 Do you have difficul ty dressing or bathing No 09/16/2018 2:14 PM EDT Alessandro Garvin, RN No [facility] 09-16-2018 Because of a physica l, mental, or emotional condition, do you have difficulty doing errands alone such as visiting a physician's office or shopping No 09/16/2018 2:14 PM EDT Alessandro Garvin, RN No [facility] Mental Status Date Assessment Result Facility 12-21-2023 Mental Status Orientation Oriented x 4 [facility] 12-21-2023 Mental Status [facility] 03-04-2023 Cognitive function Voice/Name [facility] Work Phone: 09-16-2018 Because of a physica l, mental, or emotional condition, do you have serious difficulty concentrating, remembering, or making decisions No 09/16/2018 2:14 PM EDAlessandro Orosco, RN No [facility] Clinical Notes 09-11-2018 to 01-23-2025 Telephone Encounter - Peggy Perez MA - 09/02/2024 2:55 PM EDTTelephone Encounter - Peggy Perez MA - 09/02/2024 2:55 PM Lela Garcia APRN.CNP - 02/24/2024 11:41 AM EST Note Date & Type Note Facility 01-23-2025 Note HNO ID: [id number] Author: ZOE DANIELS RT(R) Service: ? Author Type: Jewelry Bench Molder Type: Progress Notes Filed: 01/23/2025 12:03 Note Text: Radiology Service Progress Note PATIENT NAME: Martina Albrecht DATE OF SERVICE: January 23, 2025 TIME: 11:57 AM PATIENT IDENTITY VERIFICATION COMPLETED USING TWO (2) IDENTIFIERS: Name and Date of confirmed by patient verbally. FALL SCREENING: Has the patient had 2 falls in the last year or 1 fall with injury or currently using an Ambulatory Assistive Device (Walker, Cane, Wheelchair, Crutches, etc.)? No PATIENT GENDER DATA: Assigned female at . status: : No status: NO. PATIENT RELEVANT IMPLANT DATA REVIEWED: Yes PATIENT PRESENTS WITH AN IMPLANTABLE OR ATTACHED CEMENT GRINDING MILL OPERATOR: No RADIOLOGY DEPARTMENT: General X-ray: Exam(s) Completed: Chest X-Ray PERIPHERAL IV DATA: Not applicable SIGNED BY: RT Jenifer(R) January 23, 2025 11:[address] [facility] 01-23-2025 Note HNO ID: [id number] Author: ANA BABIN PA-C Service: ? Author Type: Physician Complaint Investigations Officer Type: Progress Notes Filed: 01/23/2025 12:22 Note Text: URGENT CARE [facility]Y Subjective Martina Albrecht is a 39 year old female. Patient presents with: Nasal Congestion: chest congestion, cough, ear pain, sore throat and headache x 4 days Patient is a 39-year-old female who complains of worsening congestion, sore throat and cough that she has been experiencing for the past 4 days. Patient also states that she is experiencing persistent episodes of wheezing. Patient has no history of asthma or COPD and does not smoke. Patient reports no fever but has developed chills and myalgia. Patient is requesting testing for influenza and COVID-19. Nasal Congestion Associated symptoms include chills, congestion, coughing and a sore throat. Review of Systems Constitutional: Positive for chills. HENT: Positive for congestion and sore throat. Respiratory: Positive for cough and wheezing. Musculoskeletal: Positive for myalgias. All other systems reviewed and are negative. Objective BP 110/80 Pulse 94 Temp 36.3 ?C (97.4 ?F) Resp 18 Wt 117.7 kg (259 lb 7.7 oz) LMP 05/03/2018 (Within Days) SpO2 96% BMI 40.64 kg/m? Physical Exam Vitals and nursing note reviewed. Constitutional: Appearance: Normal appearance. She is normal weight. HENT: Head: Normocephalic and atraumatic. Right Ear: Tympanic membrane, ear canal and external ear normal. Left Ear: Tympanic membrane, ear canal and external ear normal. Nose: Nose normal. Mouth/Throat: Mouth: Mucous membranes are moist. Pharynx: Oropharynx is clear. Eyes: Extraocular Movements: Extraocular movements intact. Conjunctiva/sclera: Conjunctivae normal. Pupils: Pupils are equal, round, and reactive to light. Cardiovascular: Rate and Rhythm: Normal rate and regular rhythm. Pulses: Normal pulses. Heart sounds: Normal heart sounds. Pulmonary: Effort: Pulmonary effort is normal. Breath sounds: Wheezing present. Comments: Slight rhonchi with wheezing is noted to the bilateral lungs most pronounced to the right. Respiratory effort is relaxed and the patient demonstrates a frequent, loose cough. Pulse oximeter saturation is 96% on room air. Musculoskeletal: Cervical back: Normal range of motion and neck supple. Skin: General: Skin is warm and dry. Capillary Refill: Capillary refill takes less than 2 seconds. Neurological: General: No focal deficit present. Mental Status: She is alert and oriented to person, place, and time. Psychiatric: Mood and Affect: Mood normal. Behavior: Behavior normal. Thought Content: Thought content normal. Judgment: Judgment normal. MDM Physical exam findings as noted above. Rapid strep test is negative. Influenza A/B/SARS-CoV-2/RSV PCR was ordered and the patient was advised that results will be available tomorrow. Chest x-ray was obtained and demonstrates peribronchial cuffing as well as linear opacities in the right upper lobe. Radiologist does state that the opacities likely represent atelectasis and/or scarring, however given the patient's clinical presentation and physical exam findings pneumonia is a distinct concern. Patient was provided with prescriptions for doxycycline 100 mg, prednisone 20 mg and Tessalon 100 mg. Patient was very clearly instructed to report to an emergency department if she notes any acute worseningsymptoms. Patient states that she does have an albuterol MDI at home from a previous respiratory illness and does not require a prescription today for same. CLINICAL IMPRESSION: Bronchopneumonia ASSESSMENT/PLAN: 1. Sore throat - ICD9: 462, ICD10: J02.9 (primary diagnosis) - STREP A MOLECULAR (POC) - COVID AND INFLUENZA A/B AND RSV PCR, ROUTINE 2. Wheezing - ICD9: 786.07, ICD10: R06.2 - XR CHEST 2V FRONTAL/LAT 3. Bronchopneumonia - ICD9: 485, ICD10: J18.0 MDM Amount and/or Complexity of Data Reviewed Clinical lab tests: ordered and reviewed Tests in the radiology section of CPT?: ordered and reviewed Risk of Complications, Morbidity, and/or Mortality Presenting problems: moderate Diagnostic procedures: low Management options: soham Babin PA-C [facility] 01-23-2025 Note SARS-COV-2 (AGENT OF COVID-19) RNA: Not detected INFLUENZA A RNA: Not detected INFLUENZA B RNA: Not detected RESPIRATORY SYNCYTIAL VIRUS (RSV) RNA: Not detected [facility] Comment on above: Performed By: #### [id number] ####[facility] LABCLIA [id number] [address] [place] 01-06-2025 Note HNO ID: [id number] Author: MOSHE YOU, DO Service: ? Author Type: Physician Type: Progress Notes Filed: 01/06/2025 15:12 Note Text: Subjective Martina is a 39-year-old female presenting for follow-up on right shoulder pain. Martina reports persistent right shoulder pain, which is exacerbated at night and interferes with sleep. She also experiences increased pain when using the shoulder at work. She denies any acute injury or trauma to the shoulder. She has a known sensitivity to medications, which has limited her ability to manage the pain effectively. Recent MRI results revealed a partial tear of the rotator cuff, inflammation of the bursa, and early arthritis in the joint. Martina expresses concern about the need for major interventions and is seeking guidance on appropriate treatment options. Constitutional: (+) sleep disturbance Gastrointestinal: (+) diarrhea Musculoskeletal: (+) right shoulder pain Psychiatric: (+) anxiety Objective Last menstrual period 05/03/2018. General: No acute distress. Imaging: - MRI Shoulder: Partial-thickness undersurface rotator cuff tear; bursitis; joint inflammation with effusion; early arthritis. - X-ray Shoulder: Prior shadow considered incidental; humeral head normal. Assessment AND Plan 1. Rotator cuff disorder, right (M67.911) 2. Bursitis of right shoulder (M75.51) 3. Primary osteoarthritis, right shoulder (M19.011) MRI revealed a partial undersurface tear of the right rotator cuff tendon, bursitis, and early osteoarthritis. No evidence of complete tear or acute injury; findings are consistent with chronic degenerative changes. - Administered corticosteroid injection to the right shoulder to reduce inflammation and alleviate pain. - Discussed expected course of relief: immediate effect from local anesthetic, with corticosteroid effect beginning within 24 hours and lasting approximately 6-8 weeks. - Referred to physical therapy to restore motion and strength. - Provided work note for light duty for 2 weeks, restricting repetitive lifting or lifting over 5 pounds with the right arm. - Educated patient on the chronic, degenerative nature of the tear, bursitis, and arthritis, and the importance of physical therapy for optimal recovery. Large Joint Arthro/Inj: R subacromial bursa 01/06/2025 3:11 PM The procedure site was prepped in the usual sterile fashion. Site: R subacromial bursa Medications: 40 mg triamcinolone acetonide 40 mg/mL Anesthetics: 4 mL lidocaine (PF) 10 mg/mL (1 %); 4 mL BUPivacaine (PF) 0.5 % (5 mg/mL) Outcome: Tolerated well, no immediate complications Post-injection instructions were reviewed with the patient and the patient voiced understanding of these instructions. Informed Consent Consent Obtained: Verbal [place] Protocol SIGN IN TIME OUT Recording using [employer] software for draft documentation of the visit was discussed with the patient/authorized plastic products sales representative; all questions welcomed and answered. Patient/authorized plastic products sales representative agreed to proceed [facility] 01-06-2025 Note HNO ID: [id number] Author: ZAHRA KIM MA Service: ? Author Type: Anodizing Line Operator Type: Progress Notes Filed: 01/06/2025 15:12 Note Text: AMB ROOMING INTAKE FLOWSHEET DATA Pain Pain Level: 5 Pain Location: Shoulder-Right Description: Aching, Shooting, Stabbing Duration Amount of Time: (ongoing) Duration Units: Weeks Frequency: Continuous Intervention/Comfort measure: Medication, Relaxation, Reposition [facility] 01-04-2025 Note HNO ID: [id number] Author: ELSA SPENCER RT(R) Service: ? Author Type: Technologist Type: Progress Notes Filed: 01/04/2025 12:04 Note Text: Radiology Service Progress Note PATIENT NAME: Martina Albrecht DATE OF SERVICE: January 04, 2025 TIME: 11:53 AM PATIENT IDENTITY VERIFICATION COMPLETED USING TWO (2) IDENTIFIERS: Name and Date of confirmed by patient verbally. FALL SCREENING: Has the patient had 2 falls in the last year or 1 fall with injury or currently using an Ambulatory Assistive Device (Walker, Cane, Wheelchair, Crutches, etc.)? No PATIENT GENDER DATA: Assigned female at . status: : No status: NO. PATIENT RELEVANT IMPLANT DATA REVIEWED: Yes PATIENT PRESENTS WITH AN IMPLANTABLE OR ATTACHED CEMENT GRINDING MILL OPERATOR: No RADIOLOGY DEPARTMENT: MR; Exam(s) Completed: Upper MSK: Shoulder, right . Anesthesia: No. Aromatherapy Administered: No PERIPHERAL IV DATA: Not applicable SIGNED BY: RT Tereza(R) January 04, 2025 11:[address] [facility] 12-27-2024 Note HNO ID: [id number] Author: MOSHE YOU, Service: ? Author Type: Physician Type: Progress Notes Filed: 12/27/2024 13:18 Note Text: Subjective Martina is a 39-year-old female presenting for evaluation of right shoulder pain. Martina reports a few week history of right shoulder pain that began insidiously upon waking one morning and has progressively worsened. She was evaluated at an urgent care facility, where an x-ray revealed an ill-defined lucency in the greater tuberosity of the humerus. She was prescribed a course of prednisone, which provided temporary relief, but the pain has recurred after completing the medication today. The pain is localized to the greater tuberosity and radiates down the arm. It is exacerbated by lifting the arm, applying pressure, and lying on the affected side, which has disrupted her sleep. She also experiences significant pain when reaching behind her head or back, and reports difficulty performing daily activities such as brushing her hair. She denies noticeable paresthesia in the hand. She has tried ntvf-gxv-jhryzhh medications, including ibuprofen and Tylenol, without relief. She is able to tolerate these medications without gastrointestinal issues. 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 She is right-handed and notes that the pain is in her dominant arm. Gastrointestinal: (-) abdominal pain Musculoskeletal: (+) right shoulder pain, (+) limited range of motion of right shoulder, (-) foot pain Skin: (+) foot mass Neurological: (-) numbness, (-) tingling Objective Last menstrual period 05/03/2018. General: No acute distress. MSK/Ext: Right shoulder warmth; pain with abduction and elevation; pain with resisted forward flexion; Rotator cuff strength testing hindered by pain. Hawkin's test is positive. Drop arm test is positive for pain on right. compressible mass on dorsal aspect of foot, compressible mass on ankle consistent with ganglion cyst. Imaging: - Shoulder X-ray: Ill-defined lucency at the greater tuberosity of the humerus; Assessment AND Plan 1. Acute pain of right shoulder (M25.511) 2. Abnormal x-ray of extremity (R93.6) Acute right shoulder pain with limited ROM and nocturnal discomfort. X-ray revealed an ill-defined lucency at the greater tuberosity; differential includes rotator cuff tendinitis or bursitis. - Order MRI of the right shoulder for further evaluation. - Start diclofenac for pain and inflammation. - Educated patient on the limitations of X-ray imaging and the need for MRI to clarify findings. 3. Ganglion, unspecified site (M67.40) Exam findings consistent with ganglion cysts on the foot and ankle. - Educated patient that ganglion cysts are benign and may resolve spontaneously; surgical removal is an option if they become painful or problematic. Recording using [employer] software for draft documentation of the visit was discussed with the patient/authorized plastic products sales representative; all questions welcomed and answered. Patient/authorized plastic products sales representative agreed to proceed [facility] 12-27-2024 Note HNO ID: [id number] Author: ZAHRA KIM MA Service: ? Author Type: Anodizing Line Operator Type: Progress Notes Filed: 12/27/2024 13:18 Note Text: AMB ROOMING INTAKE FLOWSHEET DATA Pain Pain Level: 4 Pain Location: Shoulder-Right Description: Aching, Radiating Duration Amount of Time: (couple weeks) Duration Units: Weeks Frequency: Continuous Intervention/Comfort measure: Medication [facility] 12-22-2024 Note HNO ID: [id number] Author: LELA MCDANIEL APRN.HAMMER SETTER Service: ? Author Type: Nurse Practitioner Type: Progress Notes Filed: 12/22/2024 16:08 Note Text: URGENT CARE [facility]ASSY Subjective HPI HPI June Trena is a 39 year old female who presents today for CC of right shoulder pain radiating to right arm. This started 2 weeks ago. Has tried otc medication for relief. Symptoms are worsened by rom of shoulder. Denies injury, numbness/tingling. 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 Hypertension Iron deficiency anemia Neuropathy bilateral lower ext Obesity (BMI 30-39.9) ELLEN (obstructive sleep apnea) 09/11/2021 Pap smear abnormality of cervix with ASCUS favoring benign 02/05/2015 Pneumonia 2019 MSSA, pseudomonas depression Type 2 diabetes mellitus without complication, without long-term current use of insulin ([facility]) 03/13/2020 PAST SURGICAL HISTORY Procedure Laterality Date DILATION AND CURETTAGE DXAND/THER NONOBSTETRIC 2004 Dilation AND curettage MIDLINE INSERTION/CONSULT 09/16/2018 TUBAL LIGATION 2018 w/ Filshie clips VAGINAL HYSTERECTOMY UTERUS 250 GM/< 07/15/2018 [facility] ALLERGIES Amoxicillin, Bactrim [Sulfamethoxazole-Trimethoprim], Celexa [Citalopram], Heparin, and Bleach (Sodium Hypochlorite) MEDICATIONS FARXIGA 10 mg tablet Take 1 tablet by mouth every afternoon. fluticasone (FLONASE) 50 mcg/actuation nasal spray Use 2 Sprays in each nostril once daily. Rinse mouth after use. FLUoxetine (PROZAC) 40 mg capsule Take 1 capsule by mouth once daily. Take with 20 mg dose. FLUoxetine (PROZAC) 20 mg capsule Take 1 capsule by mouth once daily. Take with 40 mg dose. QUEtiapine (SEROQUEL) 50 mg tablet Take 1 tablet by mouth daily at bedtime. topiramate (TOPAMAX) 50 mg tablet Take 1 tablet by mouth once daily. gabapentin (NEURONTIN) 400 mg capsule Take one capsule in the morning, and 3 capsules in the evening. metoprolol tartrate, short acting, (LOPRESSOR) 25 mg tablet Take 0.5 tablets by mouth every 12 hours. riboflavin, vitamin B2, 400 mg tab Take 1 tablet by mouth once daily. ferrous sulfate 325 mg (65 mg iron) tablet Take 1 tablet by mouth twice daily. famotidine (PEPCID) 20 mg tablet Take 1 tablet by mouth twice daily as needed. albuterol HFA (PROVENTIL HFA, VENTOLIN HFA) 90 mcg/actuation inhaler Inhale 2 Puffs as instructed every 4 hours as needed for wheezing/shortness of breath. lactobacillus rhamnosus (CULTURELLE) 10 billion cell capsule Take 1 capsule by mouth once daily. cetirizine (ZYRTEC) 10 mg tablet Take 1 tablet by mouth once daily. magnesium oxide (MAG-OX) 400 mg (241.3 mg magnesium) tablet Take 1 tablet by mouth once daily. atorvastatin (LIPITOR) 40 mg tablet Take 1 tablet by mouth daily at bedtime. For cholesterol. fenofibrate nanocrystallized (TRICOR) 145 mg tablet Take 1 tablet by mouth once daily. Lancets lancets Test blood sugar(s) 1 times daily. Dx: Type 2 DM - Controlled E11.9 Insulin: No blood sugar diagnostic (BLOOD GLUCOSE TEST) test strip Test blood sugar(s) 1 times daily. Dx: Other DM Code R73.03 Insulin: No CPAP CPAP 7 cm H2O. Formal mask refitting AND work with RT, chin strap, head gear, humidity, heated tubing(GWENDOLYN), lifetime supplies. G47.33 ELLEN blood sugar diagnostic (BLOOD GLUCOSE TEST) test strip Test blood sugar(s) 1 times daily. Dx: Type 2 DM - Controlled E11.9 Insulin: No fluticasone (FLONASE) 50 mcg/actuation nasal spray Use 2 Sprays in each nostril once daily. Rinse mouth after use. dulaglutide (TRULICITY) 1.5 mg/0.5 mL pen injector Inject 1.5 mg subcutaneously one time a week. Inject once per week. Discard Pen After fluticasone (FLONASE) 50 mcg/actuation nasal spray Use 2 Sprays in each nostril once daily. Rinse mouth after use. FAMILY HISTORY Problem Relation Age of Onset Anxiety disorder Mother Thyroid Mother Hypothyroidism Diabetes Mother other (cellulitis) Mother Bipolar disorder Sister Schizophrenia Sister Hypertension Maternal Aunt Diabetes Maternal Grandfather Hypertension Maternal Grandfather Heart Maternal Grandfather PACEMAKER No Ocular Disease No Family History SOCIAL HISTORY[1] Review of Systems Objective BP 127/76 Pulse 86 Temp 36.1 ?C (97 ?F) Resp 20 Wt 117 kg (257 lb 15 oz) LMP 05/03/2018 (Within Days) SpO2 99% BMI 40.40 kg/m? Physical Exam Constitutional: General: She is not in acute distress. Appearance: She is not toxic-appearing or diaphoretic. HENT: Head: Normocephalic and atraumatic. Pu (more content not included)... [facility] 12-22-2024 Note HNO ID: [id number] Author: TREV YOU Tech Service: ? Author Type: Jewelry Bench Molder Type: Progress Notes Filed: 12/22/2024 13:52 Note Text: Radiology Service Progress Note PATIENT NAME: Martina Albrecht DATE OF SERVICE: December 22, 2024 TIME: 1:51 PM PATIENT IDENTITY VERIFICATION COMPLETED USING TWO (2) IDENTIFIERS: Name and Date of confirmed by patient verbally. FALL SCREENING: Has the patient had 2 falls in the last year or 1 fall with injury or currently using an Ambulatory Assistive Device (Walker, Cane, Wheelchair, Crutches, etc.)? No PATIENT GENDER DATA: Assigned female at . status: : No status: NO. 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 09-02-2024 Telephone encounter Note Fax last office note date of 05/09/2021 [facility] 09-02-2024 Miscellaneous Notes Fax last office note date of 05/09/2021 Received [employer] CPAP supplies needs signed and fax to janey at [phone] documented in this encounter [facility] 08-24-2024 Telephone encounter Note Received [employer] CPAP supplies needs signed and fax to janey at [phone] [facility] 02-24-2024 Note HNO ID: [id number] Author: LELA MCDANIEL APRN.HAMMER SETTER Service: ? Author Type: Nurse Practitioner Type: Progress Notes Filed: 02/24/2024 11:48 Note Text: Subjective HPI HPI June Trena is a 38 year old female who presents today for CC of cough, sinus pressure, ear pain. This started 3-4 days ago/worsening. Has tried otc medication for relief. Symptoms are worsened by nothing. Risk factors multiple exposures to pneumonia at home. smoker. .Patient presents with: Cough: Cough, congestion, bilateral ear pain and ST x 3 days PAST MEDICAL HISTORY Diagnosis Date Acalculous cholecystitis SANTANA (acute kidney injury) ([facility]) 08/05/2018 Anxiety DVT (deep venous thrombosis) ([facility]) 2018 Dysthymic disorder Depression (non-psychotic) Fatty liver 03/30/2020 Gestational diabetes mellitus, class A1 11/17/2016 gestational hypertension History of tobacco use 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 Hypertension Iron deficiency anemia Neuropathy bilateral lower ext Obesity (BMI 30-39.9) ELLEN (obstructive sleep apnea) 09/11/2021 Pap smear abnormality of cervix with ASCUS favoring benign 02/05/2015 Pneumonia 2019 MSSA, pseudomonas depression Type 2 diabetes mellitus without complication, without long-term current use of insulin ([facility]) 03/13/2020 PAST SURGICAL HISTORY Procedure Laterality Date DILATION AND CURETTAGE DXAND/THER NONOBSTETRIC 2004 Dilation AND curettage MIDLINE INSERTION/CONSULT 09/16/2018 TUBAL LIGATION 2018 w/ Filshie clips VAGINAL HYSTERECTOMY UTERUS 250 GM/< 07/15/2018 [facility] ALLERGIES Amoxicillin, Bactrim [Sulfamethoxazole-Trimethoprim], Celexa [Citalopram], Heparin, and Bleach (Sodium Hypochlorite) MEDICATIONS FARXIGA 10 mg tablet Take 1 tablet by mouth every afternoon. QUEtiapine (SEROQUEL) 50 mg tablet Take 1 tablet by mouth daily at bedtime. topiramate (TOPAMAX) 50 mg tablet Take 1 tablet by mouth once daily. gabapentin (NEURONTIN) 400 mg capsule Take one capsule in the morning, and 3 capsules in the evening. fluticasone (FLONASE) 50 mcg/actuation nasal spray Use 2 Sprays in each nostril once daily. Rinse mouth after use. dulaglutide (TRULICITY) 1.5 mg/0.5 mL pen injector Inject 1.5 mg subcutaneously one time a week. Inject once per week. Discard Pen After metoprolol tartrate, short acting, (LOPRESSOR) 25 mg tablet Take 0.5 tablets by mouth every 12 hours. riboflavin, vitamin B2, 400 mg tab Take 1 tablet by mouth once daily. ferrous sulfate 325 mg (65 mg iron) tablet Take 1 tablet by mouth twice daily. famotidine (PEPCID) 20 mg tablet Take 1 tablet by mouth twice daily as needed. albuterol HFA (PROVENTIL HFA, VENTOLIN HFA) 90 mcg/actuation inhaler Inhale 2 Puffs as instructed every 4 hours as needed for wheezing/shortness of breath. fluticasone (FLONASE) 50 mcg/actuation nasal spray Use 2 Sprays in each nostril once daily. Rinse mouth after use. lactobacillus rhamnosus (CULTURELLE) 10 billion cell capsule Take 1 capsule by mouth once daily. cetirizine (ZYRTEC) 10 mg tablet Take 1 tablet by mouth once daily. magnesium oxide (MAG-OX) 400 mg (241.3 mg magnesium) tablet Take 1 tablet by mouth once daily. atorvastatin (LIPITOR) 40 mg tablet Take 1 tablet by mouth daily at bedtime. For cholesterol. fenofibrate nanocrystallized (TRICOR) 145 mg tablet Take 1 tablet by mouth once daily. Lancets lancets Test blood sugar(s) 1 times daily. Dx: Type 2 DM - Controlled E11.9 Insulin: No blood sugar diagnostic (BLOOD GLUCOSE TEST) test strip Test blood sugar(s) 1 times daily. Dx: Other DM Code R73.03 Insulin: No CPAP CPAP 7 cm H2O. Formal mask refitting AND work with RT, chin strap, head gear, humidity, heated tubing(GWENDOLYN), lifetime supplies. G47.33 ELLEN blood sugar diagnostic (BLOOD GLUCOSE TEST) test strip Test blood sugar(s) 1 times daily. Dx: Type 2 DM - Controlled E11.9 Insulin: No doxycycline (VIBRA-TABS) 100 mg tablet Take 1 tablet by mouth two times a day for 7 days. predniSONE (DELTASONE) 20 mg tablet Take 2 tablets by mouth once daily for 5 days. fluticasone (FLONASE) 50 mcg/actuation nasal spray Use 2 Sprays in each nostril once daily. Rinse mouth after use. FLUoxetine (PROZAC) 40 mg capsule Take 1 capsule by mouth once daily. Take with 20 mg dose. FLUoxetine (PROZAC) 20 mg capsule Take 1 capsule by mouth once daily. Take with 40 mg dose. FAMILY HISTORY Problem Relation Age of Onset Anxiety disorder Mother Thyroid Mother Hypothyroidism Diabetes Mother other (cellulitis) Mother Bipolar disorder Sister Schizophrenia Sister Hypertension Maternal Aunt Diabetes Maternal Grandfather Hypertension Maternal Grandfather Heart Maternal Grandfather PACEMAKER No Ocular Disease No Family History Social History Tobacco Use Smoking status: Light Smoker Current packs/day: 0.00 Average packs/day: 0.5 packs/day for 15.0 years (7.5 ttl pk-yrs) Types: Cigarettes Start date: 07/17/2003 (more content not included)... [facility] 02-24-2024 History of Presen t illness Narrative Subjective HPI HPI June Trena is a 38 year old female who presents today for CC of cough, sinus pressure, ear pain. This started 3-4 days ago/worsening. Has tried otc medication for relief. Symptoms are worsened by nothing. Risk factors multiple exposures to pneumonia at home. smoker. .Patient presents with: Cough: Cough, congestion, bilateral ear pain and ST x 3 days PAST MEDICAL HISTORY Diagnosis Date Acalculous cholecystitis SANTANA (acute kidney injury) ([facility]) 08/05/2018 Anxiety DVT (deep venous thrombosis) ([facility]) 2018 Dysthymic disorder Depression (non-psychotic) Fatty liver 03/30/2020 Gestational diabetes mellitus, class A1 11/17/2016 gestational hypertension History of tobacco use 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 Hypertension Iron deficiency anemia Neuropathy bilateral lower ext Obesity (BMI 30-39.9) ELLEN (obstructive sleep apnea) 09/11/2021 Pap smear abnormality of cervix with ASCUS favoring benign 02/05/2015 Pneumonia 2019 MSSA, pseudomonas depression Type 2 diabetes mellitus without complication, without long-term current use of insulin ([facility]) 03/13/2020 PAST SURGICAL HISTORY Procedure Laterality Date DILATION & CURETTAGE DX&/THER NONOBSTETRIC 2004 Dilation & curettage MIDLINE INSERTION/CONSULT 09/16/2018 TUBAL LIGATION 2018 w/ Filshie clips VAGINAL HYSTERECTOMY UTERUS 250 GM/< 07/15/2018 [facility] ALLERGIES Amoxicillin, Bactrim [Sulfamethoxazole-Trimethoprim], Celexa [Citalopram], Heparin, and Bleach (Sodium Hypochlorite) MEDICATIONS FARXIGA 10 mg tablet Take 1 tablet by mouth every afternoon. QUEtiapine (SEROQUEL) 50 mg tablet Take 1 tablet by mouth daily at bedtime. topiramate (TOPAMAX) 50 mg tablet Take 1 tablet by mouth once daily. gabapentin (NEURONTIN) 400 mg capsule Take one capsule in the morning, and 3 capsules in the evening. fluticasone (FLONASE) 50 mcg/actuation nasal spray Use 2 Sprays in each nostril once daily. Rinse mouth after use. dulaglutide (TRULICITY) 1.5 mg/0.5 mL pen injector Inject 1.5 mg subcutaneously one time a week. Inject once per week. Discard Pen After metoprolol tartrate, short acting, (LOPRESSOR) 25 mg tablet Take 0.5 tablets by mouth every 12 hours. riboflavin, vitamin B2, 400 mg tab Take 1 tablet by mouth once daily. ferrous sulfate 325 mg (65 mg iron) tablet Take 1 tablet by mouth twice daily. famotidine (PEPCID) 20 mg tablet Take 1 tablet by mouth twice daily as needed. albuterol HFA (PROVENTIL HFA, VENTOLIN HFA) 90 mcg/actuation inhaler Inhale 2 Puffs as instructed every 4 hours as needed for wheezing/shortness of breath. fluticasone (FLONASE) 50 mcg/actuation nasal spray Use 2 Sprays in each nostril once daily. Rinse mouth after use. lactobacillus rhamnosus (CULTURELLE) 10 billion cell capsule Take 1 capsule by mouth once daily. cetirizine (ZYRTEC) 10 mg tablet Take 1 tablet by mouth once daily. magnesium oxide (MAG-OX) 400 mg (241.3 mg magnesium) tablet Take 1 tablet by mouth once daily. atorvastatin (LIPITOR) 40 mg tablet Take 1 tablet by mouth daily at bedtime. For cholesterol. fenofibrate nanocrystallized (TRICOR) 145 mg tablet Take 1 tablet by mouth once daily. Lancets lancets Test blood sugar(s) 1 times daily. Dx: Type 2 DM - Controlled E11.9 Insulin: No blood sugar diagnostic (BLOOD GLUCOSE TEST) test strip Test blood sugar(s) 1 times daily. Dx: Other DM Code R73.03 Insulin: No CPAP CPAP 7 cm H2O. Formal mask refitting & work with RT, chin strap, head gear, humidity, heated tubing(GWENDOLYN), lifetime supplies. G47.33 ELLEN blood sugar diagnostic (BLOOD GLUCOSE TEST) test strip Test blood sugar(s) 1 times daily. Dx: Type 2 DM - Controlled E11.9 Insulin: No doxycycline (VIBRA-TABS) 100 mg tablet Take 1 tablet by mouth two times a day for 7 days. predniSONE (DELTASONE) 20 mg tablet Take 2 tablets by mouth once daily for 5 days. fluticasone (FLONASE) 50 mcg/actuation nasal spray Use 2 Sprays in each nostril once daily. Rinse mouth after use. FLUoxetine (PROZAC) 40 mg capsule Take 1 capsule by mouth once daily. Take with 20 mg dose. FLUoxetine (PROZAC) 20 mg capsule Take 1 capsule by mouth once daily. Take with 40 mg dose. FAMILY HISTORY Problem Relation Age of Onset Anxiety disorder Mother Thyroid Mother Hypothyroidism Diabetes Mother other (cellulitis) Mother Bipolar disorder Sister Schizophrenia Sister Hypertension Maternal Aunt Diabetes Maternal Grandfather Hypertension Maternal Grandfather Heart Maternal Grandfather PACEMAKER No Ocular Disease No Family History Social History Tobacco Use Smoking status: Light Smoker Current packs/day: 0.00 Average packs/day: 0.5 packs/day for 15.0 years (7.5 ttl pk-yrs) Types: Cigarettes Start date: 07/17/2003 Last attempt to quit: 07/16/2018 Years since quittin.6 Smokeless tobacco: Never Tobacco comments: with anxiety Vaping Use Vaping status: Never Used Substance Use Topics Alcohol use: No Drug use: No Review of Systems Constitutional: Negative for fever. HENT: Positive for congestion, ear pain and sore throat. Negative for ear discharge and nosebleeds. Respiratory: Positive for cough. Negative for shortness of breath and wheezing. Musculoskeletal: Negative for neck pain. Skin: Negative for itching and rash. Neurological: Positive for dizziness. Objective Blood pressure 118/76, pulse 86, temperature 36.6 C (97.8 F), temperature source Tympanic, resp. rate 18, weight 114.2 kg (251 lb 12.3 oz), last menstrual period 05/03/2018, SpO2 98%. Physical Exam Constitutional: General: She is not in acute distress. Appearance: She is not toxic-appearing or diaphoretic. HENT: Head: Normocephalic and atraumatic. Right Ear: Hearing, ear canal and external ear normal. Tympanic membrane is erythematous. Tympanic membrane is not perforated or bulging. Left Ear: Hearing, ear canal and external ear normal. Tympanic membrane is erythematous. Tympanic membrane is not perforated or bulging. Nose: Nose normal. Mouth/Throat: Pharynx: Uvula midline. No pharyngeal swelling, oropharyngeal exudate, posterior oropharyngeal erythema or uvula swelling. Eyes: General: Lids are normal. No scleral icterus. Right eye: No discharge. Left eye: No discharge. Conjunctiva/sclera: Conjunctivae normal. Pupils: Pupils are equal, round, and reactive to light. Neck: Trachea: Trachea normal. Cardiovascular: Rate and Rhythm: Normal rate and regular rhythm. Heart sounds: Normal heart sounds. Pulmonary: Effort: Pulmonary effort is normal. Breath sounds: Normal breath sounds. Musculoskeletal: Cervical back: Normal range of motion and neck supple. Lymphadenopathy: Cervical: No cervical adenopathy. Right cervical: No superficial cervical adenopathy. Left cervical: No superficial cervical adenopathy. Skin: Findings: No rash. Neurological: Mental Status: She is alert and oriented to person, place, and time. ASSESSMENT/PLAN: 1. Sinobronchitis - ICD9: 473.9, 490, ICD10: J32.9, J40 (primary diagnosis) - Will begin treatment with as per antibiotic as written, see orders - Supportive care with plenty of fluids, rest, and analgesia prn. - Follow up in 3-5 days if symptoms persist or worsen. - DOXYCYCLINE HYCLATE 100 MG TABLET - PREDNISONE 20 MG TABLET 2. Acute otitis media, bilateral - ICD9: 382.9, ICD10: H66.93 - Will begin treatment with Doxycycline - Supportive care with plenty of fluids, rest, and analgesia prn. - Follow up in 3-5 days if symptoms persist or worsen. - DOXYCYCLINE HYCLATE 100 MG TABLET - FLUTICASONE PROPIONATE 50 MCG/ACTUATION NASAL SPRAY,SUSPENSION 3. Pneumonia exposure - ICD9: V01.89, ICD10: Z20.89 Lela Mcdaniel APRN.HAMMER SETTER documented in this encounter [facility] 12-21-2023 Hospital Discharg e instructions Patient Education 12/21/2023 10:01:43 Pain, Acute, Uncertain Cause Acute Pain, Uncertain Cause Pain can be caused by many conditions that range from very minor to very serious. In some cases, though, pain comes and goes with no apparent cause. We were not able to find the exact cause for your pain. At this time there is no sign of any serious illness causing your pain. More tests may be needed to determine the cause. In many cases, pain like this goes away by itself. Home care Take any medicines as prescribed. If another medicine was not prescribed for pain, you can take an oyje-qbh-rixsdcj pain medicine such as ibuprofen or acetaminophen. Use these as directed on the label. Follow-up care Follow up with your healthcare provider or our staff as directed. When to seek medical advice Call your healthcare provider for any of the following: Pain changes in pattern Pain doesn't lessen or gets worse New symptoms appear Fever of 100.4 F (38 C) or higher, or as directed by your healthcare provider [phone] The [employer]. [address] [place] [address], [place] [address]. All rights reserved. This information is not intended as a substitute for professional medical care. Always follow your healthcare professional's instructions. 12/21/2023 10:01:28 Wearing Proper Shoes Wearing Proper Shoes You walk on your feet every day, forcing them to support the weight of your body. Repeated stress on your feet can cause damage over time. The right shoes can help protect your feet. The wrong shoes can cause more foot problems. Read the information below to help you find a shoe that fits your foot needs. A good shoe fit will cover your foot outline. A shoe that doesn t cover the outline is a bad fit. What s your foot shape? To get a good fit, you need to know the shape of your foot. Do this simple test: While standing, place your foot on a piece of paper and trace around it. Is your foot straight or curved? Do you have a foot problem, such as a bunion, that causes your foot outline to show a bulge on the side of your big toe? Finding your fit Bring your foot outline to the shoe store to help you find the right shoe. Place a shoe you like on top of the outline to see if it matches the shape. The shoe should cover the outline. (If you have a bunion, the shoe may not cover the bulge on the outline. Look for soft leather shoes to stretch over the bunion.) Once you ve found a pair of proper shoes, put them on. Walk around. Be sure the shoes don t rub or pinch. If the shoes feel good, you ve found your fit! The right shoe for you A good shoe has features that provide comfort and support. It must also be the right size and shape for your feet. Look for a shoe made of breathable fabric and lining, such as leather or canvas. Be sure that shoes have enough tread to prevent slipping. Go to a good shoe store for help finding the right shoe. Good shoe features An ideal shoe has the following: Laces for support. If tying laces is a problem for you, try shoes with Velcro fasteners or jh. A front of the shoe (toe box) with inch space in front of your longest toes. An arch shape that supports your foot. No more than 1 inches of heel. A stiff, snug back of the shoe to keep your foot from sliding around. A smooth lining with no rough seams. Shoe shopping tips Below are some do s and don ts for when you go to the shoe store. Do: Select the shoes that feel right. Wear them around the house. Then bring them to your foot healthcare provider to check for fit. If they don t fit well, return them. Shop late in the day, when your feet will be slightly bigger. Each time you buy shoes, have both your feet measured while you are standing. Foot size changes with time. Pick shoes to suit their purpose. High heels are OK for an occasional night on the town. But for everyday wear, choose a more sensible shoe. Try on shoes while wearing any inserts specially made for your feet (orthoses). Try on both the right and left shoes. If your feet are different sizes, pick a pair that fits the larger foot. Don t: Don t buy shoes based on shoe size alone. Always try on shoes, as sizes differ from brand to brand and within brands. Don t expect shoes to break in. If they don t fit at the store, don t buy them. Don t buy a shoe that doesn t match your foot shape. What about socks? Always wear socks with shoes. Socks help absorb sweat and reduce friction and blistering. When shopping for shoes, choose soft, padded socks with seams that don t irritate your feet. If you have foot problems Some foot problems cause deformities. This can make it hard to find a good fit. Look for shoes made of soft leather to stretch over the deformity. If you have bunions, buy shoes with a wider toe box. To fit hammertoes, look for shoes with a tall toe box. If you have arch problems, you may need inserts. In some cases, you ll need to have custom footwear or orthoses made for your feet. Suggested footwear Ask your healthcare provider what kind of footwear you need. He or she may recommend a certain brand or shoestore. [id number] [employer] [address] [place] [address]. All rights reserved. This information is not intended as a substitute for professional medical care. Always follow your healthcare professional's instructions. Follow Up Care 12/21/2023 08:41:51 With:ADALID DESIR DPM, Surgery Address: [address] [place] [address], [address] [facility] [place], [place] [id number]- When:2-4 days [facility] 12-21-2023 Note Discharge Instructions Thank you for allowing [facility] to assist you with your healthcare needs. The following is important discharge information regarding your hospital visit. Diagnosis from Today's Visit Foot pain What to Do Next Instructions from Your Care Team No qualifying data available. Post Acute Orders No qualifying data available. You Need to Schedule the Following Appointments Follow Up with ADALID DESIR DPM, Surgery When:Within 2-4 days Where:[address] [place] [address], [address] [facility] [place], [place] [id number]- Allergies NKA Medications Please ask your primary doctor or pharmacist before taking any other medication not listed, including over the counter drugs, herbal medications, vitamins and or supplements as they may interact with your home medications. What How Much When Instructions Last Dose Unchanged acetaminophen-HYDROcodone ([place] 325- 5 mg oral tablet) 1 tab(s) by mouth Every 6 hours Unchanged clindamycin (clindamycin 150 mg oral capsule) 1 cap by mouth Every 6 hours Duration: 7 Days Unchanged multivitamin (Vitamin B Complex oral tablet) 1 tab(s) by mouth Every day Unchanged naproxen (Naprosyn) by mouth Two (2) times a day Unchanged sertraline (Zoloft 100 mg oral tablet) 1 tab(s) by mouth Every day Please take this list to your next doctor s visit. Bring all medications you take, including over the counter medications, herbals and other supplements with you to your doctor s visit. Patients and families are reminded to discard old lists and to update any records with all medication providers or retail pharmacies. Education Materials Acute Pain, Uncertain Cause Pain can be caused by many conditions that range from very minor to very serious. In some cases, though, pain comes and goes with no apparent cause. We were not able to find the exact cause for your pain. At this time there is no sign of any serious illness causing your pain. More tests may be needed to determine the cause. In many cases, pain like this goes away by itself. Home care Take any medicines as prescribed. If another medicine was not prescribed for pain, you can take an tpuq-pao-lqjnuoi pain medicine such as ibuprofen or acetaminophen. Use these as directed on the label. Follow-up care Follow up with your healthcare provider or our staff as directed. When to seek medical advice Call your healthcare provider for any of the following: Pain changes in pattern Pain doesn't lessen or gets worse New symptoms appear Fever of 100.4 F (38 C) or higher, or as directed by your healthcare provider [id number] The [employer]. [address] [place] [address]. All rights reserved. This information is not intended as a substitute for professional medical care. Always follow your healthcare professional's instructions. Wearing Proper Shoes You walk on your feet every day, forcing them to support the weight of your body. Repeated stress on your feet can cause damage over time. The right shoes can help protect your feet. The wrong shoes can cause more foot problems. Read the information below to help you find a shoe that fits your foot needs. A good shoe fit will cover your foot outline. A shoe that doesn t cover the outline is a bad fit. What s your foot shape? To get a good fit, you need to know the shape of your foot. Do this simple test: While standing, place your foot on a piece of paper and trace around it. Is your foot straight or curved? Do you have a foot problem, such as a bunion, that causes your foot outline to show a bulge on the side of your big toe? Finding your fit Bring your foot outline to the shoe store to help you find the right shoe. Place a shoe you like on top of the outline to see if it matches the shape. The shoe should cover the outline. (If you have a bunion, the shoe may not cover the bulge on the outline. Look for soft leather shoes to stretch over the bunion.) Once you ve found a pair of proper shoes, put them on. Walk around. Be sure the shoes don t rub or pinch. If the shoes feel good, you ve found your fit! The right shoe for you A good shoe has features that provide comfort and support. It must also be the right size and shape for your feet. Look for a shoe made of breathable fabric and lining, such as leather or canvas. Be sure that shoes have enough tread to prevent slipping. Go to a good shoe store for help finding the right shoe. Good shoe features An ideal shoe has the following: Laces for support. If tying laces is a problem for you, try shoes with Velcro fasteners or jh. A front of the shoe (toe box) with inch space in front of your longest toes. An arch shape that supports your foot. No more than 1 inches of heel. A stiff, snug back of the shoe to keep your foot from sliding around. A smooth lining with no rough seams. Shoe shopping tips Below are some do s and don ts for when you go to the shoe store. Do: Select the shoes that feel right. Wear them around the house. Then bring them to your foot healthcare provider to check for fit. If they don t fit well, return them. Shop late in the day, when your feet will be slightly bigger. Each time you buy shoes, have both your feet measured while you are standing. Foot size changes with time. Pick shoes to suit their purpose. High heels are OK for an occasional night on the town. But for everyday wear, choose a more sensible shoe. Try on shoes while wearing any inserts specially made for your feet (orthoses). Try on both the right and left shoes. If your feet are different sizes, pick a pair that fits the larger foot. Don t: Don t buy shoes based on shoe size alone. Always try on shoes, as sizes differ from brand to brand and within brands. Don t expect shoes to break in. If they don t fit at the store, don t buy them. Don t buy a shoe that doesn t match your foot shape. What about socks? Always wear socks with shoes. Socks help absorb sweat and reduce friction and blistering. When shopping for shoes, choose soft, padded socks with seams that don t irritate your feet. If you have foot problems Some foot problems cause deformities. This can make it hard to find a good fit. Look for shoes made of soft leather to stretch over the deformity. If you have bunions, buy shoes with a wider toe box. To fit hammertoes, look for shoes with a tall toe box. If you have arch problems, you may need inserts. In some cases, you ll need to have custom footwear or orthoses made for your feet. Suggested footwear Ask your healthcare provider what kind of footwear you need. He or she may recommend a certain brand or shoestore. [id number] [employer]. [address] [place] [address], [place] [address]. All rights reserved. This information is not intended as a substitute for professional medical care. Always follow your healthcare professional's instructions. Additional Information VACCINATE! IT SAVES LIVES! Members of the community who have not yet received the COVID-19 vaccine and would like to receive it can visit one of [facility] vaccine clinics. There are many vaccine clinic locations within the [facility]. For locations and available times, please visit [email or web address] It is important to note that some COVID mobile vaccine clinics are held outdoors and may be canceled in rainy or stormy conditions. To learn more about pediatric vaccinations (ages 5-11), we invite you to visit the [facility] webpage. [email or web address]/p [email or web address]-Uvmeu-Gccxtirzuvt-Freq [email or web address]-[email or web address].html To learn more about the COVID-19 vaccine, we invite you to visit the CDC website for a list of frequently asked questions. https://www.cdc.gov/coronavirus/ 2019-ncov/vaccines/faq.html [facility] Patient Portal Access Instructions: Stay connected with your healthcare team and access your personal medical information anytime with the [facility] Patient Portal. If you would like a full copy of your medical records please contact the [facility] Medical Records Department Thursday through Thursday between 8a.m. and 4:30p.m. Please follow the directions below to access the portal: 1.Access the email account you provided upon registration to the [facility].2.Look for an invitation email from [facility].3.Open the email and access the invitation link: Accept Invitation to [facility].Fill in the required aguiar to create your account. Sign into [email or web address] with your username and password that you created in the above steps to stay up to date. You can then view a summary of results, a summary of your visits, and the ability to download your summaries to your computer or send the information securely to a physician. Remember that your healthcare information is confidential, so carefully consider who you will allow to register on the [facility] Patient Portal for access to your information. You can also access the [facility] Patient Portal on the [employer]. Simply click on "Health Records" under "Health Data" and then click on the [facility] logo. HOW TO SAFELY DISPOSE OF PRESCRIPTION MEDICATIONS Please use one of the following methods to safely dispose of your unused medications. 1.Use a drug disposal kit: the drug disposal pouch allows you to safely discard your old and unused drugs. Ask your nurse to give you one when you are discharged.2.Visit a local take-back location: Many local pharmacies and police departments have programs that collect old and unwanted prescription drugs. Call your local pharmacy or go to http://[employer]/7L3Sk7n to find one close to you.3.Make use of household items: Use cat litter or old coffee grounds to dispose medications if other options are not available. Mix your drugs with these household products, seal them in an airtight container and throw it into the garbage. Call [facility]: [phone] to be sure your drugs can be disposed of in this way. Some medicines may require a different approach.4.Never flush your medications down the toilet. IF YOU HAVE BEEN PRESCRIBED AN OPIOIDS FOR PAIN If you have been prescribed an opioid (such as hydrocodone, oxycodone or morphine), it is critical to understand the possible side effects and risks of opioid pain medications. Even when taken as directed, opioids can have several side effects including: Tolerance, meaning you might need to take more of a medication for the same pain relief. Nausea, vomiting and/or constipation. Sleepiness, dizziness, dry mouth, confusion, depression or itching. Physical dependence, meaning you have withdrawal symptoms when a medication is stopped ? this can develop within a few days. KNOW YOUR RESPONSIBILITIES It is important to know exactly how much and how often to take the opioid pain medications you are prescribed. Never take opioids in higher amounts or more often than prescribed. Do not combine opioids with alcohol or other drugs that cause drowsiness, such as benzodiazepines, also known as benzos, including diazepam and alprazolam, muscle relaxants or sleep aids. Never sell or share prescription opioids. This is illegal. Store opioids in a secure place and out of reach of others (including children, family, friends and visitors). The last page(s) of this document has been signed and retained as a CHART COPY Signatures Patient Education Materials Pain, Acute, Uncertain Cause Wearing Proper Shoes Medication Leaflets My discharge plan and instructions have been reviewed and explained to me and ITRENA APRIL D understand my current condition and have read and understand these discharge instructions. I have received a written copy of the plan/instructions. If I have questions, I am aware that I should contact my doctor. 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 NKI pain FINDINGS: No new acute fracture or joint dislocation is seen. The previously suspected anterior calcaneus fracture is difficult to visualize. Joint spaces are maintained. There is an ossicle near the medial malleolus. Minor spurring is present at the dorsal navicular bone. There is an enthesophyte near the Achilles tendon insertion. No unusual soft tissue calcifications are seen. IMPRESSION: The previously suspected anterior calcaneus fracture is difficult to visualize. No new acute fracture or joint dislocation is seen. Minor spurring at the dorsal navicular bone. Ossicle near the medial malleolus. Interpreted by: Kashif Cao MD Preliminary Report By: Kashif Cao MD Electronically signed By Kashif Cao MD Dictated Date: 12/21/2023 9:34:07 AM Prelim Date: 12/21/2023 9:46:44 AM Sign Date: 12/21/2023 9:46:44 AM Ordering Provider: BLAIR ALAS [facility] 12-11-2023 Telephone encounter Note Faxed most recent [facility]09[facility]2021[phone]. Informed DME that this note is the last and most recent for the patient. [facility] 12-11-2023 Miscellaneous Notes Faxed most recent office note (05/09/2021) [facility] [phone]. Informed DME that this note is the last and most recent for the patient. documented in this encounter [facility] 09-25-2023 Telephone encounter Note [employer] message last read by Martina Albrecht at 10:27 AM on 09/22/2023. Oksana Graves [facility] 09-25-2023 Miscellaneous Notes [employer] message last read by Martina Albrecht at 10:27 AM on 09/22/2023. Oksana Graves Called Patient-no answer. Unable to leave voicemail (not set up). Message sent to Patient via [employer]. Oksana Graves ----- Message from GEOVANI Prasad sent at 09/22/2023 9:44 AM EDT ----- Regarding: appointment Good morning, Would it be possible to schedule an appointment with Trev? Patient has not been seen since 05.09.2021. Thank you! Zuri documented in this encounter [facility] 09-22-2023 Telephone encounter Note Faxed signed CPAP order attention Janey at [facility]. Received confirmation. [phone] [facility] 09-22-2023 Miscellaneous Notes Faxed signed CPAP order attention Janey at [facility]. Received confirmation. [phone] documented in this encounter [facility] 09-22-2023 Telephone encounter Note Called Patient-no answer. Unable to leave voicemail (not set up). Message sent to Patient via [employer]. Oksana Graves [facility] 09-22-2023 Telephone encounter Note ----- Message from GEOVANI Prasad sent at 09/22/2023 9:44 AM EDT ----- Regarding: appointment Good morning, Would it be possible to schedule an appointment with Trev? Patient has not been seen since 05.09.2021. Thank you! Zuri [facility] 09-18-2023 Telephone encounter Note Received request from [facility] for re-signing of previously sent order due to paperwork. Placed on [employer] desk for signature and review. [facility] 09-18-2023 Miscellaneous Notes Received request from [facility] for re-signing of previously sent order due to paperwork. Placed on [employer] desk for signature and review. documented in this encounter [facility] 09-15-2023 Telephone encounter Note Faxed and received confirmation of signed CMN and office note attention to Kayela at [facility] on 09.14.23 at [phone] [facility] 09-15-2023 Miscellaneous Notes Faxed and received confirmation of signed CMN and office note attention to Kayela at [facility] on 09.14.23 at [phone] documented in this encounter [facility] 09-11-2023 Telephone encounter Note Received faxed request for office note and signed CMN from [facility]. Placed on [employer] for signature and review. [facility] 09-11-2023 Miscellaneous Notes Received faxed request for office note and signed CMN from [facility]. Placed on [employer] desk for signature and review. documented in this encounter [facility] 09-02-2023 History of Presen t illness Narrative Patient presents with: Sore Throat: Congestion, bilateral ear issues x 2 days HPI: Feeling sick for 3 days Positive symptoms: Sore throat, Earache, Sinus pressure, Nasal Congestion, Negative symptoms: Cough, Rhinorrhea, Fever, OTC: Lozenges, throat spray MEDICATIONS: Current Outpatient Medications Medication Sig busPIRone (BUSPAR) 7.5 mg tablet Take 1 tablet by mouth three times a day. FLUoxetine (PROZAC) 40 mg capsule Take 1 capsule by mouth once daily. Take with 20 mg dose. FLUoxetine (PROZAC) 20 mg capsule Take 1 capsule by mouth once daily. Take with 40 mg dose. QUEtiapine (SEROQUEL) 50 mg tablet Take 1 tablet by mouth daily at bedtime. LORazepam (ATIVAN) 0.5 mg Take 1 tablet by mouth two times a day as needed for up to 30 days. topiramate (TOPAMAX) 50 mg tablet Take 1 tablet by mouth once daily. gabapentin (NEURONTIN) 400 mg capsule Take one capsule in the morning, and 3 capsules in the evening. fluticasone (FLONASE) 50 mcg/actuation nasal spray Use 2 Sprays in each nostril once daily. Rinse mouth after use. dulaglutide (TRULICITY) 1.5 mg/0.5 mL pen injector Inject 1.5 mg subcutaneously one time a week. Inject once per week. Discard Pen After metoprolol tartrate, short acting, (LOPRESSOR) 25 mg tablet Take 0.5 tablets by mouth every 12 hours. riboflavin, vitamin B2, 400 mg tab Take 1 tablet by mouth once daily. ferrous sulfate 325 mg (65 mg iron) tablet Take 1 tablet by mouth twice daily. famotidine (PEPCID) 20 mg tablet Take 1 tablet by mouth twice daily as needed. albuterol HFA (PROVENTIL HFA, VENTOLIN HFA) 90 mcg/actuation inhaler Inhale 2 Puffs as instructed every 4 hours as needed for wheezing/shortness of breath. fluticasone (FLONASE) 50 mcg/actuation nasal spray Use 2 Sprays in each nostril once daily. Rinse mouth after use. lactobacillus rhamnosus (CULTURELLE) 10 billion cell capsule Take 1 capsule by mouth once daily. cetirizine (ZYRTEC) 10 mg tablet Take 1 tablet by mouth once daily. magnesium oxide (MAG-OX) 400 mg (241.3 mg magnesium) tablet Take 1 tablet by mouth once daily. atorvastatin (LIPITOR) 40 mg tablet Take 1 tablet by mouth daily at bedtime. For cholesterol. fenofibrate nanocrystallized (TRICOR) 145 mg tablet Take 1 tablet by mouth once daily. Lancets lancets Test blood sugar(s) 1 times daily. Dx: Type 2 DM - Controlled E11.9 Insulin: No blood sugar diagnostic (BLOOD GLUCOSE TEST) test strip Test blood sugar(s) 1 times daily. Dx: Other DM Code R73.03 Insulin: No CPAP CPAP 7 cm H2O. Formal mask refitting & work with RT, chin strap, head gear, humidity, heated tubing(GWENDOLYN), lifetime supplies. G47.33 ELLEN blood sugar diagnostic (BLOOD GLUCOSE TEST) test strip Test blood sugar(s) 1 times daily. Dx: Type 2 DM - Controlled E11.9 Insulin: No No current facility-administered medications for this visit. ALLERGIES: ALLERGIES Allergen Reactions Amoxicillin Hives Bactrim [Sulfametho* GI Upset Nausea Celexa [Citalopram] Mental Status Change Suicidal per pt Heparin Other: See Comments HIT Bleach (Sodium Hypo* Rash Skin irritation, itching VITALS: BP 110/70 Pulse 80 Temp 36.1 C (97 F) Resp 21 Wt 112.6 kg (248 lb 3.8 oz) LMP 05/03/2018 (Within Days) SpO2 99% BMI 38.88 kg/m PHYSICAL EXAM: GEN: mildly ill appearing, pleasant, alert HEENT: PERRL, EOMI, conjunctiva clear Ears: canals clear. TMs without erythema, bulge, or effusion Sinuses: non-tender frontal sinus, pressure over maxillary sinuses Throat: moist mucous membranes, pharyngeal erythema, small shallow ulcerations on tonsils/soft palate Neck: supple, no thyromegaly, mild anterior lymphadenopathy HEART: regular rate and rhythm, no murmurs LUNGS: clear to auscultation, no wheezes or crackles, no increased WOB ASSESSMENT/PLAN: 1. Sore throat - ICD9: 462, ICD10: J02.9 - STREP A MOLECULAR (POC) - negative. - suspect viral URI - Discussed supportive care treatment with rest, lozenges, and analgesia. Jonathon Cartagena MD documented in this encounter [facility] 08-10-2023 History of Presen t illness Narrative Images from the original note were not included. FOLLOW UP - PSYCHIATRIC PROGRESS NOTE PATIENT: Martina Fabiano Albrecht DATE: August 10, 2023 Visit Type: Virtual Visit utilizing two-way audio and video for at least a portion of the visit. Consent for virtual visit obtained verbally. Confidentiality limitations with virtual visits reviewed with the patient and guardian, if present, who have accepted the risk verbally prior to proceeding with encounter. I have communicated my name and active licensure. The patient's identity and physical location were verified at the time of this visit. 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 All information is from Patient report except when noted. This evaluation is NOT intended for forensic, disability or child custody purposes. Some elements were copied from the previous note which have been updated where appropriate and reflect current decision making from today August 10, 2023. CC: Presenting today for follow up regarding psychiatric medication management. HPI: Treatment Plan from Last Visit on 06/08/2023: 1. Discontinue Diazepam due to lack of efficacy. 2. Utilize Ativan instead to help with severe anxiety symptoms. 3. Increase Prozac to address anxiety symptoms. 4. Continue Seroquel at the same dose. 5. Patient also uses Topamax to manage headaches and Gabapentin to help with neuropathy. Since patient has a new PCP at the [facility], we discussed asking them to take over these prescriptions. 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 Today June shares that she been tolerating the medication change better. I feel like my anxiety has not been bad". Denies side effects. Ends up taking Ativan in the afternoon on work days around 11 am and 12 pm. Attributes it to things getting busy and overwhelmed at work. She has not been able to have [facility] take over her Topamax and Gabapentin yet. She sees her provider there every 2 weeks. Anxiety is triggered when she is at stores. She notices physical symptoms of anxiety. Big crowds are still difficult to manage. Anxiety is better at home then when she is outside. The panic symptoms last about 20 minutes even after she removes herself from the situation. Continues to use Seroquel at bedtime for sleep. Able to fall asleep but finds herself waking up frequently around 3 to 4 times at night. Interval Progress: Same PATIENT DATA: Generalized Anxiety Disorder Scale (BECCA-7) 04/08/2023 06/08/2023 08/10/2023 BECCA - 7 SCORES Score 6 7 7 (0-4) minimal anxiety, (5-9) mild anxiety, (10-14) moderate anxiety, (15-21) severe anxiety Patient Health Questionnaire (PHQ-9) 04/08/2023 06/08/2023 08/10/2023 PHQ-9 Score 7 8 7 (0-4) minimal depression, (5-9) mild depression, (10-14) moderate depression, (15-19) moderately severe depression, (20-27) severe depression PAST MEDICAL HISTORY Diagnosis Date Acalculous cholecystitis SANTANA (acute kidney injury) ([facility]) 08/05/2018 Anxiety DVT (deep venous thrombosis) ([facility]) 2019 Dysthymic disorder Depression (non-psychotic) Fatty liver 03/30/2020 Gestational diabetes mellitus, class A1 11/17/2016 gestational hypertension History of tobacco use 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 Hypertension Iron deficiency anemia Neuropathy bilateral lower ext Obesity (BMI 30-39.9) ELLEN (obstructive sleep apnea) 09/11/2021 Pap smear abnormality of cervix with ASCUS favoring benign 02/05/2015 Pneumonia 2019 MSSA, pseudomonas depression Type 2 diabetes mellitus without complication, without long-term current use of insulin ([facility]) 03/13/2020 PAST SURGICAL HISTORY Procedure Laterality Date DILATION & CURETTAGE DX&/THER NONOBSTETRIC 2004 Dilation & curettage MIDLINE INSERTION/CONSULT 09/16/2018 TUBAL LIGATION 2018 w/ Filshie clips VAGINAL HYSTERECTOMY UTERUS 250 GM/< 07/15/2018 [facility] ALLERGIES Allergen Reactions Amoxicillin Hives Bactrim [Sulfametho* GI Upset Nausea Celexa [Citalopram] Mental Status Change Suicidal per pt Heparin Other: See Comments HIT Bleach (Sodium Hypo* Rash Skin irritation, itching Current Outpatient Medications on File Prior to Visit Medication Sig gabapentin (NEURONTIN) 400 mg capsule Take one capsule in the morning, and 3 capsules in the evening. LORazepam (ATIVAN) 0.5 mg Take 1 tablet by mouth two times a day as needed for up to 30 days. FLUoxetine (PROZAC) 40 mg capsule Take 1 capsule by mouth once daily. Take with 20 mg dose. FLUoxetine (PROZAC) 20 mg capsule Take 1 capsule by mouth once daily. Take with 40 mg dose. QUEtiapine (SEROQUEL) 50 mg tablet Take 1 tablet by mouth daily at bedtime. fluticasone (FLONASE) 50 mcg/actuation nasal spray Use 2 Sprays in each nostril once daily. Rinse mouth after use. topiramate (TOPAMAX) 50 mg tablet Take 1 tablet by mouth once daily. ondansetron orally disintegrating (ZOFRAN ODT) 4 mg disintegrating tablet Take 1 tablet by mouth every 8 hours as needed. (Patient not taking: Reported on 05/21/2023) dulaglutide (TRULICITY) 1.5 mg/0.5 mL pen injector Inject 1.5 mg subcutaneously one time a week. Inject once per week. Discard Pen After metoprolol tartrate, short acting, (LOPRESSOR) 25 mg tablet Take 0.5 tablets by mouth every 12 hours. riboflavin, vitamin B2, 400 mg tab Take 1 tablet by mouth once daily. Promethazine-DM (PHENERGAN-DM) 6.25-15 mg/5 mL syrup Take 5 mL by mouth four times daily as needed. (Patient not taking: Reported on 05/21/2023) ferrous sulfate 325 mg (65 mg iron) tablet Take 1 tablet by mouth twice daily. famotidine (PEPCID) 20 mg tablet Take 1 tablet by mouth twice daily as needed. Ejjlufwxokitars-Xbrlolunu-OP (BROMFED DM) 2-30-10 mg/5 mL syrup Take 5 mL by mouth four times daily as needed. (Patient not taking: Reported on 05/21/2023) albuterol HFA (PROVENTIL HFA, VENTOLIN HFA) 90 mcg/actuation inhaler Inhale 2 Puffs as instructed every 4 hours as needed for wheezing/shortness of breath. dextromethorphan-guaiFENesin (MUCINEX DM) 30-600 mg per tablet Take 1 tablet by mouth twice daily. (Patient not taking: Reported on 05/21/2023) fluticasone (FLONASE) 50 mcg/actuation nasal spray Use 2 Sprays in each nostril once daily. Rinse mouth after use. lactobacillus rhamnosus (CULTURELLE) 10 billion cell capsule Take 1 capsule by mouth once daily. cetirizine (ZYRTEC) 10 mg tablet Take 1 tablet by mouth once daily. magnesium oxide (MAG-OX) 400 mg (241.3 mg magnesium) tablet Take 1 tablet by mouth once daily. atorvastatin (LIPITOR) 40 mg tablet Take 1 tablet by mouth daily at bedtime. For cholesterol. fenofibrate nanocrystallized (TRICOR) 145 mg tablet Take 1 tablet by mouth once daily. Lancets lancets Test blood sugar(s) 1 times daily. Dx: Type 2 DM - Controlled E11.9 Insulin: No blood sugar diagnostic (BLOOD GLUCOSE TEST) test strip Test blood sugar(s) 1 times daily. Dx: Other DM Code R73.03 Insulin: No CPAP CPAP 7 cm H2O. Formal mask refitting & work with RT, chin strap, head gear, humidity, heated tubing(GWENDOLYN), lifetime supplies. G47.33 ELLEN blood sugar diagnostic (BLOOD GLUCOSE TEST) test strip Test blood sugar(s) 1 times daily. Dx: Type 2 DM - Controlled E11.9 Insulin: No No current facility-administered medications on file prior to visit. ROS: See HPI PFSH: See HPI VITAL SIGNS: There were no vitals filed for this visit. Last 3 Encounter BP Readings: Date: BP: 07/14/2023 112/72 06/06/2023 110/78 05/21/2023 115/81 MENTAL STATUS EXAMINATION: Mental Status Exam General/Sensorium: Alert Orientation: AAOx3 Appearance: Casually dressed Eye contact: Appropriate Demeanor: Superficially cooperative Motor activity: Normal Speech: - restricted and flat Mood: Anxious Affect: Congruent with mood Thought process: [place] and vague Associations: Normal Thought content: Lyxt-vszvzxt-jpku-rejecting and discussing stressors Suicidal ideation: SI: no Plan: no Intent: no Homicidal ideation: HI: no Plan: no Intent: no Abnormal/psychotic thoughts: Absent Perceptions: She does not appear internally stimulated. Intelligence: Average Attention: Intact Memory: Short-term: Intact Long-term: Intact Language: Intact Fund of knowledge: Fair Insight: Poor Judgment: Poor Gait: Not observed Station: Sitting DATA REVIEWED: Psychiatric scales, Electronic medical record, Labs, and PDMP report. PDMP website checked and validated. All prescriptions have been APPROPRIATELY filled. No suspicious activity was identified. 08/10/2023 by Elin Dotson APRN.HAMMER SETTER DIAGNOSIS: Panic disorder with agoraphobia MDD, recurrent, in partial remission GAF: -60-51 Moderate symptoms or moderate difficulty in social, occupational or school functioning. TREATMENT PLAN: Continue Prozac and Seroquel at the same dose. Utilize Ativan as needed to manage severe anxiety and panic symptoms. Patient notified this provider that Buspar was restarted by her PCP at [facility]. Per this provider's discussion with the patient in December 2022, she found Buspar to be ineffective and it was discontinued. Discussed the importance of all the providers on her treatment team being aware of the changes to medications so medication related discussions are made safely. Encouraged her to have a discussion with her provider at [facility] about taking over her psychiatric medications or referring her to another provider at [place] who is able to manage psychiatric medications. Have her new PCP take over the Topamax prescription as it was prescribed for headaches and Gabapentin for neuropathy. This was managed in the past by her old PCP at [facility] and this provider was just providing bridge refills for the patient. Encouraged patient to seriously consider psychotherapy as she has been utilizing Ativan every day when she works to address anxiety symptoms. MEDICATION CHANGES: Current medication regimen unchanged. Risks and benefits of the medication, including any black box warnings, were discussed with the patient. Patient is aware to reach out with any questions, concerns, or worsening of symptoms prior to the next appointment. Patient educated on risks of substance use in combination with medications and advised that any substance use along with medications may alter their effectiveness. Patient denies involuntary movement related side effects. Follow Up: Based on her discussion with the [facility] provider. I spent a total of 40 minutes on the date of the service which included preparing to see the patient, zcaj-cg-pogl patient care, completing clinical documentation, and counseling and educating the patient/family/caregiver, ordering medications/labs. ADD ON PSYCHOTHERAPY CODE : No SIGNATURE: Elin Dotson APRN.CNP PATIENT NAME: June Trena DATE: August 10, 2023 TIME: 8:43 AM documented in this encounter [facility] 08-07-2023 Telephone encounter Note Received fax from [facility] for updated CPAP Rx. Faxed to Sleep Medicine at [facility] per provider request. Provider back in office 08/24/23. [facility] 08-07-2023 Miscellaneous Notes Received fax from [facility] for updated CPAP Rx. Faxed to Sleep Medicine [facility] per provider request. Provider back in office 08/24/23. documented in this encounter [facility] 08-05-2023 Telephone encounter Note Prescription Refill Information The patient has been identified by name and date of : Yes Caregiver verified no other encounters exist for this prescription request: Yes Caregiver confirmed with patient/requestor that no other refills are due, in the near future, with this provider at this time: Yes Does the patient have a future office visit with this provider/department: Yes Requested Prescriptions Pending Prescriptions Disp Refills gabapentin (NEURONTIN) 400 mg capsule 120 capsule 2 Sig: Take one capsule in the morning, and 3 capsules in the evening. LORazepam (ATIVAN) 0.5 mg 30 tablet 0 Sig: Take 1 tablet by mouth two times a day as needed for up to 30 days. Jordana Cisse LPN August 05, 2023 8:12 AM [facility] 08-05-2023 Miscellaneous Notes Prescription Refill Information The patient has been identified by name and date of : Yes Caregiver verified no other encounters exist for this prescription request: Yes Caregiver confirmed with patient/requestor that no other refills are due, in the near future, with this provider at this time: Yes Does the patient have a future office visit with this provider/department: Yes Requested Prescriptions Pending Prescriptions Disp Refills gabapentin (NEURONTIN) 400 mg capsule 120 capsule 2 Sig: Take one capsule in the morning, and 3 capsules in the evening. LORazepam (ATIVAN) 0.5 mg 30 tablet 0 Sig: Take 1 tablet by mouth two times a day as needed for up to 30 days. Jordana Cisse LPN August 05, 2023 8:12 AM documented in this encounter [facility] 07-14-2023 History of Presen t illness Narrative Subjective HPI June Trena is a 37 year old female who presents with 2 days of dysuria, frequency, and lower back pain. She denies hematuria, fever or abdominal pain. She has not taken any medication for her symptoms. Review of Systems Constitutional: Negative for chills and fever. Respiratory: Negative. Cardiovascular: Negative. Gastrointestinal: Negative for abdominal pain, nausea and vomiting. Genitourinary: Positive for dysuria and frequency. Musculoskeletal: Positive for back pain. BP 112/72 Pulse 86 Temp 36.2 C (97.1 F) Resp 16 Wt 110 kg (242 lb 8.1 oz) LMP 05/03/2018 (Within Days) SpO2 96% BMI 37.98 kg/m PAST MEDICAL HISTORY Diagnosis Date Acalculous cholecystitis SANTANA (acute kidney injury) ([facility]) 08/05/2018 Anxiety DVT (deep venous thrombosis) ([facility]) 2019 Dysthymic disorder Depression (non-psychotic) Fatty liver 03/30/2020 Gestational diabetes mellitus, class A1 11/17/2016 gestational hypertension History of tobacco use HIT (heparin-induced thrombocytopenia) ([facility]) 2019 Hypertension Iron deficiency anemia Neuropathy bilateral lower ext Obesity (BMI 30-39.9) ELLEN (obstructive sleep apnea) 09/11/2021 Pap smear abnormality of cervix with ASCUS favoring benign 02/05/2015 Pneumonia 2019 MSSA, pseudomonas depression Type 2 diabetes mellitus without complication, without long-term current use of insulin ([facility]) 03/13/2020 PAST SURGICAL HISTORY Procedure Laterality Date DILATION & CURETTAGE DX&/THER NONOBSTETRIC 2004 Dilation & curettage MIDLINE INSERTION/CONSULT 09/16/2018 TUBAL LIGATION 2018 w/ Filshie clips VAGINAL HYSTERECTOMY UTERUS 250 GM/< 07/15/2018 [facility] ALLERGIES Amoxicillin, Bactrim [Sulfamethoxazole-Trimethoprim], Celexa [Citalopram], Heparin, and Bleach (Sodium Hypochlorite) MEDICATIONS FLUoxetine (PROZAC) 40 mg capsule Take 1 capsule by mouth once daily. Take with 20 mg dose. FLUoxetine (PROZAC) 20 mg capsule Take 1 capsule by mouth once daily. Take with 40 mg dose. LORazepam (ATIVAN) 0.5 mg Take 1 tablet by mouth two times a day as needed for up to 30 days. Do not start before July 07, 2023. QUEtiapine (SEROQUEL) 50 mg tablet Take 1 tablet by mouth daily at bedtime. gabapentin (NEURONTIN) 400 mg capsule Take one capsule in the morning, and 3 capsules in the evening. fluticasone (FLONASE) 50 mcg/actuation nasal spray Use 2 Sprays in each nostril once daily. Rinse mouth after use. topiramate (TOPAMAX) 50 mg tablet Take 1 tablet by mouth once daily. dulaglutide (TRULICITY) 1.5 mg/0.5 mL pen injector Inject 1.5 mg subcutaneously one time a week. Inject once per week. Discard Pen After metoprolol tartrate, short acting, (LOPRESSOR) 25 mg tablet Take 0.5 tablets by mouth every 12 hours. riboflavin, vitamin B2, 400 mg tab Take 1 tablet by mouth once daily. ferrous sulfate 325 mg (65 mg iron) tablet Take 1 tablet by mouth twice daily. famotidine (PEPCID) 20 mg tablet Take 1 tablet by mouth twice daily as needed. albuterol HFA (PROVENTIL HFA, VENTOLIN HFA) 90 mcg/actuation inhaler Inhale 2 Puffs as instructed every 4 hours as needed for wheezing/shortness of breath. fluticasone (FLONASE) 50 mcg/actuation nasal spray Use 2 Sprays in each nostril once daily. Rinse mouth after use. lactobacillus rhamnosus (CULTURELLE) 10 billion cell capsule Take 1 capsule by mouth once daily. cetirizine (ZYRTEC) 10 mg tablet Take 1 tablet by mouth once daily. magnesium oxide (MAG-OX) 400 mg (241.3 mg magnesium) tablet Take 1 tablet by mouth once daily. atorvastatin (LIPITOR) 40 mg tablet Take 1 tablet by mouth daily at bedtime. For cholesterol. fenofibrate nanocrystallized (TRICOR) 145 mg tablet Take 1 tablet by mouth once daily. Lancets lancets Test blood sugar(s) 1 times daily. Dx: Type 2 DM - Controlled E11.9 Insulin: No blood sugar diagnostic (BLOOD GLUCOSE TEST) test strip Test blood sugar(s) 1 times daily. Dx: Other DM Code R73.03 Insulin: No CPAP CPAP 7 cm H2O. Formal mask refitting & work with RT, chin strap, head gear, humidity, heated tubing(GWENDOLYN), lifetime supplies. G47.33 ELLEN blood sugar diagnostic (BLOOD GLUCOSE TEST) test strip Test blood sugar(s) 1 times daily. Dx: Type 2 DM - Controlled E11.9 Insulin: No ondansetron orally disintegrating (ZOFRAN ODT) 4 mg disintegrating tablet Take 1 tablet by mouth every 8 hours as needed. (Patient not taking: Reported on 05/21/2023) Promethazine-DM (PHENERGAN-DM) 6.25-15 mg/5 mL syrup Take 5 mL by mouth four times daily as needed. (Patient not taking: Reported on 05/21/2023) Xizlidyryuunzuk-Mmkanxsyp-XM (BROMFED DM) 2-30-10 mg/5 mL syrup Take 5 mL by mouth four times daily as needed. (Patient not taking: Reported on 05/21/2023) dextromethorphan-guaiFENesin (MUCINEX DM) 30-600 mg per tablet Take 1 tablet by mouth twice daily. (Patient not taking: Reported on 05/21/2023) FAMILY HISTORY Problem Relation Age of Onset Anxiety disorder Mother Thyroid Mother Hypothyroidism Diabetes Mother other (cellulitis) Mother Bipolar disorder Sister Schizophrenia Sister Hypertension Maternal Aunt Diabetes Maternal Grandfather Hypertension Maternal Grandfather Heart Maternal Grandfather PACEMAKER No Ocular Disease No Family History Social History Tobacco Use Smoking status: Light Smoker Packs/day: 0.50 Years: 15.00 Additional pack years: 0.00 Total pack years: 7.50 Types: Cigarettes Last attempt to quit: 07/16/2018 Years since quittin.9 Smokeless tobacco: Never Tobacco comments: with anxiety Vaping Use Vaping Use: Never used Substance Use Topics Alcohol use: No Drug use: No Objective Physical Exam Vitals and nursing note reviewed. Constitutional: General: She is not in acute distress. Appearance: Normal appearance. She is obese. She is not ill-appearing. Cardiovascular: Rate and Rhythm: Normal rate and regular rhythm. Heart sounds: Normal heart sounds. Pulmonary: Effort: Pulmonary effort is normal. No respiratory distress. Breath sounds: Normal breath sounds. No wheezing or rales. Skin: General: Skin is warm and dry. Neurological: Mental Status: She is alert. ASSESSMENT/PLAN: 1. Urinary frequency - ICD9: 788.41, ICD10: R35.0 acute - UA negative in office today. - UA DIP, URINE (POC) - URINE CULTURE - treat if indicated by culture. Bárbara Lazo APRN.CNP documented in this encounter [facility] 07-14-2023 Instructions Bárbara Lazo APRN.CNP - 07/14/2023 5:00 PM EDT ASSESSMENT/PLAN: 1. Urinary frequency - ICD9: 788.41, ICD10: R35.0 acute - UA negative in office today. - UA DIP, URINE (POC) - URINE CULTURE - treat if indicated by culture. Bárbara Lazo APRN.HAMMER SETTER documented in this encounter [facility] 07-02-2023 Miscellaneous Notes Patient has been identified by name and date of : Yes Requested Prescriptions Pending Prescriptions Disp Refills FLUoxetine (PROZAC) 40 mg capsule 30 capsule 1 Sig: Take 1 capsule by mouth once daily. Take with 20 mg dose. FLUoxetine (PROZAC) 20 mg capsule 30 capsule 1 Sig: Take 1 capsule by mouth once daily. Take with 40 mg dose. LORazepam (ATIVAN) 0.5 mg 30 tablet 0 Sig: Take 1 tablet by mouth two times a day as needed for up to 30 days. RX INSTRUCTIONS: Patient aware RX will be sent to pharmacy. No need to notify patient. Follow up 08/10/2023. Jordana Cisse LPN documented in this encounter [facility] 06-08-2023 Miscellaneous Notes Seen in mychart and provider looked at results. Megan Bernard MA Unable to reach patient. Mailbox full/Mailbox not set up/ Number incorrect. Please try again later. Megan Bernard MA Please let patient know she tested positive for COVID-19. She needs to isolate until she is 24 hours fever free. She needs to mask for 5 days after this. documented in this encounter [facility] 06-08-2023 History of Presen t illness Narrative FOLLOW UP - PSYCHIATRIC PROGRESS NOTE Visit Type:Virtual Visit utilizing two-way audio and video for at least a portion of the visit. Consent for virtual visit obtained verbally. Confidentiality limitations with virtual visits reviewed with the patient and guardian, if present, who have accepted the risk verbally prior to proceeding with encounter. I have communicated my name and active licensure. The patient's identity and physical location were verified at the time of this visit. 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 Reason for Visit: Outpatient follow-up and safety monitoring of previously prescribed psychiatric medication, psychotherapy or other treatment CC: Follow up for psychiatric medication management HPI: Treatment plan from last visit on 04/08/2023: 1. Continue Prozac, Seroquel, Gabapentin and Topamax at the same dose. 2. Utilize Diazepam as needed to manage anxiety and panic symptoms. 3. Encouraged smoking cessation and utilization of Chantix as recommended by her new PCP. Today June shares that she has been diagnosed with COVID-19. She is home sick right now. A lot of people at her work have been diagnosed with COVID-19. Prior to that she had an ear infection and was prescribed an anti-biotic. My life is crazy right now and its been like that for a long time". Feels that something keeps happening and it never settles now per patient. 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 Having a hard time coping. Still going to work everyday. Her feet have been bothering her a lot . She is not sure if the Gabapentin is helping her anymore. Her PCP is now at the [facility] and he is waiting for her records. Patient aware that she can citrus picker a list of her updated medication list. She has been able to adjust to the Prozac well. Denies any side effects from the Prozac. Continues to struggle with anxiety. 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 She starts to feel shaky and thinks she is going to have a panic attacks. Attempts to use Diazepam at work but feels like it is not beneficial. She felt that it helped in the beginning but not much. Similar tolerance issues occurred with Ativan and Klonopin in the past. Has been struggling with more difficulty staying asleep. She is not taking trazodone anymore and does not wish to take it anymore. Has been waking up and tossing and turning. Takes the Seroquel around 8 and 9 pm. Before she was able to sleep through the night on the current dose of Seroquel. Noticing more panic symptoms in the morning since recovering from pneumonia. Also noticing anxiety symptoms around the end of her shift. Does not interfere with her ability to do things. Has been there before but has gotten worse. Notices that anxiety causes irritability. Takes Topamax to help with her migraines. That continues to help. Discussed the importance of engaging in psychotherapy. She is planning on seeing her PCP during the first week of June. Risks and benefits of the medication, including any black box warnings, were discussed with the patient. Interval Progress: Slightly worse PATIENT DATA: Generalized Anxiety Disorder Scale (BECCA-7) 03/04/2023 04/08/2023 06/08/2023 BECCA - 7 SCORES Score 7 6 7 (0-4) minimal anxiety, (5-9) mild anxiety, (10-14) moderate anxiety, (15-21) severe anxiety Patient Health Questionnaire (PHQ-9) 06/08/2023 04/08/2023 03/04/2023 PHQ-9 Score 8 7 7 (0-4) minimal depression, (5-9) mild depression, (10-14) moderate depression, (15-19) moderately severe depression, (20-27) severe depression PROMIS Global Health 10/07/2022 03/04/2023 06/08/2023 PROMIS Global Health - (T-Scores - the mean of general population = 50. Five points is a clinically meaningful difference.) Physical T-Score 32.4 32.4 39.8 39.8 Mental T-Score 33.8 33.8 36.3 33.8 PAST MEDICAL HISTORY Diagnosis Date Acalculous cholecystitis SANTANA (acute kidney injury) ([facility]) 08/05/2018 Anxiety DVT (deep venous thrombosis) ([facility]) 2019 Dysthymic disorder Depression (non-psychotic) Fatty liver 03/30/2020 Gestational diabetes mellitus, class A1 11/17/2016 gestational hypertension History of tobacco use 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 Hypertension Iron deficiency anemia Neuropathy bilateral lower ext Obesity (BMI 30-39.9) ELLEN (obstructive sleep apnea) 09/11/2021 Pap smear abnormality of cervix with ASCUS favoring benign 02/05/2015 Pneumonia 2019 MSSA, pseudomonas depression Type 2 diabetes mellitus without complication, without long-term current use of insulin ([facility]) 03/13/2020 PAST SURGICAL HISTORY Procedure Laterality Date DILATION & CURETTAGE DX&/THER NONOBSTETRIC 2004 Dilation & curettage MIDLINE INSERTION/CONSULT 09/16/2018 TUBAL LIGATION 2018 w/ Filshie clips VAGINAL HYSTERECTOMY UTERUS 250 GM/< 07/15/2018 TV Current Outpatient Medications Medication Sig Dispense Refill cefdinir (OMNICEF) 300 mg capsule Take 1 capsule by mouth two times a day for 7 days. 14 capsule 0 fluticasone (FLONASE) 50 mcg/actuation nasal spray Use 2 Sprays in each nostril once daily. Rinse mouth after use. 11.1 mL 0 QUEtiapine (SEROQUEL) 50 mg tablet Take 1 tablet by mouth daily at bedtime. 90 tablet 0 FLUoxetine (PROZAC) 40 mg capsule Take 1 capsule by mouth once daily. 30 capsule 1 gabapentin (NEURONTIN) 400 mg capsule Take one capsule in the morning, and 3 capsules in the evening. 120 capsule 2 topiramate (TOPAMAX) 50 mg tablet Take 1 tablet by mouth once daily. 30 tablet 5 ondansetron orally disintegrating (ZOFRAN ODT) 4 mg disintegrating tablet Take 1 tablet by mouth every 8 hours as needed. (Patient not taking: Reported on 05/21/2023) 20 tablet 0 dulaglutide (TRULICITY) 1.5 mg/0.5 mL pen injector Inject 1.5 mg subcutaneously one time a week. Inject once per week. Discard Pen After 2 mL 5 metoprolol tartrate, short acting, (LOPRESSOR) 25 mg tablet Take 0.5 tablets by mouth every 12 hours. 30 tablet 5 riboflavin, vitamin B2, 400 mg tab Take 1 tablet by mouth once daily. 30 tablet 5 Promethazine-DM (PHENERGAN-DM) 6.25-15 mg/5 mL syrup Take 5 mL by mouth four times daily as needed. (Patient not taking: Reported on 05/21/2023) 240 mL 0 ferrous sulfate 325 mg (65 mg iron) tablet Take 1 tablet by mouth twice daily. 180 tablet 0 famotidine (PEPCID) 20 mg tablet Take 1 tablet by mouth twice daily as needed. 60 tablet 3 Xjknqwclukpsiit-Diewsjhxm-PU (BROMFED DM) 2-30-10 mg/5 mL syrup Take 5 mL by mouth four times daily as needed. (Patient not taking: Reported on 05/21/2023) 118 mL 0 albuterol HFA (PROVENTIL HFA, VENTOLIN HFA) 90 mcg/actuation inhaler Inhale 2 Puffs as instructed every 4 hours as needed for wheezing/shortness of breath. 18 g 1 dextromethorphan-guaiFENesin (MUCINEX DM) 30-600 mg per tablet Take 1 tablet by mouth twice daily. (Patient not taking: Reported on 05/21/2023) 20 tablet 0 fluticasone (FLONASE) 50 mcg/actuation nasal spray Use 2 Sprays in each nostril once daily. Rinse mouth after use. 1 Each 2 lactobacillus rhamnosus (CULTURELLE) 10 billion cell capsule Take 1 capsule by mouth once daily. 30 capsule 0 cetirizine (ZYRTEC) 10 mg tablet Take 1 tablet by mouth once daily. 30 tablet 11 magnesium oxide (MAG-OX) 400 mg (241.3 mg magnesium) tablet Take 1 tablet by mouth once daily. 30 tablet 5 atorvastatin (LIPITOR) 40 mg tablet Take 1 tablet by mouth daily at bedtime. For cholesterol. 90 tablet 3 fenofibrate nanocrystallized (TRICOR) 145 mg tablet Take 1 tablet by mouth once daily. 90 tablet 3 Lancets lancets Test blood sugar(s) 1 times daily. Dx: Type 2 DM - Controlled E11.9 Insulin: No 100 Each 11 blood sugar diagnostic (BLOOD GLUCOSE TEST) test strip Test blood sugar(s) 1 times daily. Dx: Other DM Code R73.03 Insulin: No 50 Strip 11 CPAP CPAP 7 cm H2O. Formal mask refitting & work with RT, chin strap, head gear, humidity, heated tubing(GWENDOLYN), lifetime supplies. G47.33 ELLEN 1 Device 11 blood sugar diagnostic (BLOOD GLUCOSE TEST) test strip Test blood sugar(s) 1 times daily. Dx: Type 2 DM - Controlled E11.9 Insulin: No 50 Strip 11 No current facility-administered medications for this visit. ROS: See HPI PFSH: See HPI VITAL SIGNS: There were no vitals filed for this visit. MENTAL STATUS EXAM: CONSTITUTIONAL: Casually dressed ORIENTATION: Person, Place, Time and Situation MEMORY: Recent intact, Remote intact, Immediate intact CONCENTRATION: Normal MOOD: irritable AFFECT: Restricted SPEECH : Clear & distinct LANGUAGE : Normal ASSOCIATIONS: Intact THOUGHT PROCESS : Logical, Coherent, and Rational PROGRESSION : There was no evidence of disturbance in thought perception or progression. FUND OF KNOWLEDGE : Appropriate and Adequate SUICIDE: None HOMICIDE: None DATA REVIEWED: Psychiatric scales and Electronic medical record DIAGNOSIS: PRIMARY: Panic disorder with agoraphobia Secondary : MDD, recurrent, moderate Other : none GAF: -60-51 Moderate symptoms or moderate difficulty in social, occupational or school functioning. TREATMENT PLAN: 1. Discontinue Diazepam due to lack of efficacy. 2. Utilize Ativan instead to help with severe anxiety symptoms. 3. Increase Prozac to address anxiety symptoms. 4. Continue Seroquel at the same dose. 5. Patient also uses Topamax to manage headaches and Gabapentin to help with neuropathy. Since patient has a new PCP at the [facility], we discussed asking them to take over these prescriptions. 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 MEDICATION CHANGES: - Stop Diazepam. - Start Ativan 0.5 mg - take 1 tablet up to twice daily as needed to manage severe anxiety symptoms. - Increase Prozac to 60 mg once daily. PDMP report was reviewed and found to be appropriate without any signs of misuse or diversion. Patient denies any involuntary movement related side effects. Follow Up: 2 months I spent a total of 45 minutes on the date of the service which included preparing to see the patient, ohjw-db-nwli patient care, completing clinical documentation, obtaining and/or reviewing separately obtained history, counseling and educating the patient/family/caregiver, ordering medications, tests, or procedures, communicating with other HCPs (not separately reported), independently interpreting results (not separately reported), and communicating results to the patient/family/caregiver. ADD ON PSYCHOTHERAPY CODE : No SIGNATURE: Elin Dotson APRN.MARIE PATIENT NAME: Martina Albrecht DATE: June 08, 2023 TIME: 2:09 PM documented in this encounter [facility] 06-06-2023 History of Presen t illness Narrative This note was created using [employer] ([employer]. Subjective Martina Albrecht is a 37 year old female. HPI 37-year-old female presents for sinus congestion, ear pain x 2 to 3 days. Patient states that 2 to 3 days ago she started getting sinus congestion. She states that she now has pressure and pain in both ears, worse on the right. She denies any fevers. No cough. No chest pain or shortness of breath. No history of COPD or asthma. She does have history of pneumonia in the past. No cough. She states that several people of tested positive for COVID at her work. PAST MEDICAL HISTORY Diagnosis Date Acalculous cholecystitis SANTANA (acute kidney injury) ([facility]) 08/05/2018 Anxiety DVT (deep venous thrombosis) ([facility]) 2019 Dysthymic disorder Depression (non-psychotic) Fatty liver 03/30/2020 Gestational diabetes mellitus, class A1 11/17/2016 gestational hypertension History of tobacco use HIT (heparin-induced thrombocytopenia) ([facility]) 2019 Hypertension Iron deficiency anemia Neuropathy bilateral lower ext Obesity (BMI 30-39.9) ELLEN (obstructive sleep apnea) 09/11/2021 Pap smear abnormality of cervix with ASCUS favoring benign 02/05/2015 Pneumonia 2019 MSSA, pseudomonas depression Type 2 diabetes mellitus without complication, without long-term current use of insulin ([facility]) 03/13/2020 PAST SURGICAL HISTORY Procedure Laterality Date DILATION & CURETTAGE DX&/THER NONOBSTETRIC 2004 Dilation & curettage MIDLINE INSERTION/CONSULT 09/16/2018 TUBAL LIGATION 2018 w/ Filshie clips VAGINAL HYSTERECTOMY UTERUS 250 GM/< 07/15/2018 TV[facility] ALLERGIES Amoxicillin, Bactrim [Sulfamethoxazole-Trimethoprim], Celexa [Citalopram], Heparin, and Bleach (Sodium Hypochlorite) MEDICATIONS QUEtiapine (SEROQUEL) 50 mg tablet Take 1 tablet by mouth daily at bedtime. FLUoxetine (PROZAC) 40 mg capsule Take 1 capsule by mouth once daily. gabapentin (NEURONTIN) 400 mg capsule Take one capsule in the morning, and 3 capsules in the evening. topiramate (TOPAMAX) 50 mg tablet Take 1 tablet by mouth once daily. dulaglutide (TRULICITY) 1.5 mg/0.5 mL pen injector Inject 1.5 mg subcutaneously one time a week. Inject once per week. Discard Pen After metoprolol tartrate, short acting, (LOPRESSOR) 25 mg tablet Take 0.5 tablets by mouth every 12 hours. riboflavin, vitamin B2, 400 mg tab Take 1 tablet by mouth once daily. ferrous sulfate 325 mg (65 mg iron) tablet Take 1 tablet by mouth twice daily. famotidine (PEPCID) 20 mg tablet Take 1 tablet by mouth twice daily as needed. albuterol HFA (PROVENTIL HFA, VENTOLIN HFA) 90 mcg/actuation inhaler Inhale 2 Puffs as instructed every 4 hours as needed for wheezing/shortness of breath. fluticasone (FLONASE) 50 mcg/actuation nasal spray Use 2 Sprays in each nostril once daily. Rinse mouth after use. lactobacillus rhamnosus (CULTURELLE) 10 billion cell capsule Take 1 capsule by mouth once daily. cetirizine (ZYRTEC) 10 mg tablet Take 1 tablet by mouth once daily. magnesium oxide (MAG-OX) 400 mg (241.3 mg magnesium) tablet Take 1 tablet by mouth once daily. fenofibrate nanocrystallized (TRICOR) 145 mg tablet Take 1 tablet by mouth once daily. Lancets lancets Test blood sugar(s) 1 times daily. Dx: Type 2 DM - Controlled E11.9 Insulin: No blood sugar diagnostic (BLOOD GLUCOSE TEST) test strip Test blood sugar(s) 1 times daily. Dx: Other DM Code R73.03 Insulin: No CPAP CPAP 7 cm H2O. Formal mask refitting & work with RT, chin strap, head gear, humidity, heated tubing(GWENDOLYN), lifetime supplies. G47.33 ELLEN blood sugar diagnostic (BLOOD GLUCOSE TEST) test strip Test blood sugar(s) 1 times daily. Dx: Type 2 DM - Controlled E11.9 Insulin: No cefdinir (OMNICEF) 300 mg capsule Take 1 capsule by mouth two times a day for 7 days. fluticasone (FLONASE) 50 mcg/actuation nasal spray Use 2 Sprays in each nostril once daily. Rinse mouth after use. ondansetron orally disintegrating (ZOFRAN ODT) 4 mg disintegrating tablet Take 1 tablet by mouth every 8 hours as needed. (Patient not taking: Reported on 05/21/2023) Promethazine-DM (PHENERGAN-DM) 6.25-15 mg/5 mL syrup Take 5 mL by mouth four times daily as needed. (Patient not taking: Reported on 05/21/2023) Somzlwqiocehxyj-Tokuiymvr-ML (BROMFED DM) 2-30-10 mg/5 mL syrup Take 5 mL by mouth four times daily as needed. (Patient not taking: Reported on 05/21/2023) dextromethorphan-guaiFENesin (MUCINEX DM) 30-600 mg per tablet Take 1 tablet by mouth twice daily. (Patient not taking: Reported on 05/21/2023) atorvastatin (LIPITOR) 40 mg tablet Take 1 tablet by mouth daily at bedtime. For cholesterol. FAMILY HISTORY Problem Relation Age of Onset Anxiety disorder Mother Thyroid Mother Hypothyroidism Diabetes Mother other (cellulitis) Mother Bipolar disorder Sister Schizophrenia Sister Hypertension Maternal Aunt Diabetes Maternal Grandfather Hypertension Maternal Grandfather Heart Maternal Grandfather PACEMAKER No Ocular Disease No Family History Social History Tobacco Use Smoking status: Light Smoker Packs/day: 0.50 Years: 15.00 Additional pack years: 0.00 Total pack years: 7.50 Types: Cigarettes Last attempt to quit: 07/16/2018 Years since quittin.8 Smokeless tobacco: Never Tobacco comments: with anxiety Vaping Use Vaping Use: Never used Substance Use Topics Alcohol use: No Drug use: No TIM Weinstein Review of Systems Constitutional: Negative for chills and fever. HENT: Positive for congestion and ear pain. Negative for sore throat. Respiratory: Negative for cough and shortness of breath. Cardiovascular: Negative for chest pain. Gastrointestinal: Negative for diarrhea and vomiting. Objective BP 110/78 Pulse 78 Temp 36.4 C (97.6 F) (Tympanic) Resp 18 Wt 111.9 kg (246 lb 11.1 oz) LMP 05/03/2018 (Within Days) SpO2 99% BMI 38.64 kg/m Physical Exam Vitals and nursing note reviewed. Constitutional: General: She is not in acute distress. Appearance: Normal appearance. She is not toxic-appearing. HENT: Right Ear: Ear canal normal. A middle ear effusion is present. Tympanic membrane is erythematous. Left Ear: Ear canal normal. A middle ear effusion is present. Tympanic membrane is erythematous. Nose: Congestion present. Mouth/Throat: Mouth: Mucous membranes are moist. Pharynx: No oropharyngeal exudate or posterior oropharyngeal erythema. Eyes: Conjunctiva/sclera: Conjunctivae normal. Cardiovascular: Rate and Rhythm: Normal rate and regular rhythm. Pulmonary: Effort: Pulmonary effort is normal. Breath sounds: Normal breath sounds. Neurological: Mental Status: She is alert. Assessment and Plan ASSESSMENT/PLAN: 1. URI, acute - ICD9: 465.9, ICD10: J06.9 (primary diagnosis) - Discussed viral etiology and rationale for treatment. - Symptomatic treatment with prn analgesia - Supportive care with fluids and rest - COVID & INFLUENZA A/B & RSV NAAT, ROUTINE -Out of window for Tamiflu, patient is a candidate for antiviral. She will contemplate whether she wants it or not if COVID-positive. 2. Acute otitis media, bilateral - ICD9: 382.9, ICD10: H66.93 - Will begin treatment with as per antibiotic as written, see orders. Omnicef ordered. Has tolerated cephalosporins in the past. -Rx for Flonase - Supportive care with plenty of fluids, rest, and analgesia prn. Diagnosis and treatment plan were discussed and questions were answered to the patient's satisfaction. Pt acknowledged understanding of concepts and follow up plan. Specific signs and symptoms that would indicate the need for higher level of care were discussed in detail warranting prompt ER evaluation. TIM Weinstein documented in this encounter [facility] 05-22-2023 Miscellaneous Notes Patient given results and verbalized understanding of instructions given. Zully Pratt LPN Please let patient know that she is negative for bacterial vaginosis and trichomonas. Patient is positive for yeast. At cream to treat this was called in to the pharmacy. Diflucan was not called in as it interacts with a lot of the medications patient is currently on. documented in this encounter [facility] 05-21-2023 History of Presen t illness Narrative CC: Patient presents with: Urinary Frequency: With low back pain, burning x1 day HPI June Trena is a 37 year old female who presents with complaint of possible UTI. These symptoms have been present for 1 days. Associated symptoms: burning, frequency, and abnormal vaginal discharge Denies: fever, chills, sweats, abdominal pain, and flank pain Treatments: nothing The ROS was otherwise negative. PMH, Medications, labs, allergies, and recent past visits with PCP were reviewed and updated as able. PHYSICAL EXAM: BP 115/81 Pulse 78 Temp 36.9 C (98.4 F) Resp 18 Wt 112.5 kg (248 lb) LMP 05/03/2018 (Within Days) SpO2 99% BMI 38.84 kg/m General: Well appearing and alert CV: Regular rate and rhythm without obvious murmur Lungs: clear to auscultation bilaterally Back: straight and symmetric Abdomen: soft, nontender, nondistended PAST MEDICAL HISTORY Diagnosis Date Acalculous cholecystitis SANTANA (acute kidney injury) ([facility]) 08/05/2018 Anxiety DVT (deep venous thrombosis) ([facility]) 2018 Dysthymic disorder Depression (non-psychotic) Fatty liver 03/30/2020 Gestational diabetes mellitus, class A1 11/17/2016 gestational hypertension History of tobacco use 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 Hypertension Iron deficiency anemia Neuropathy bilateral lower ext Obesity (BMI 30-39.9) ELLEN (obstructive sleep apnea) 09/11/2021 Pap smear abnormality of cervix with ASCUS favoring benign 02/05/2015 Pneumonia 2019 MSSA, pseudomonas depression Type 2 diabetes mellitus without complication, without long-term current use of insulin ([facility]) 03/13/2020 PAST SURGICAL HISTORY Procedure Laterality Date DILATION & CURETTAGE DX&/THER NONOBSTETRIC 2004 Dilation & curettage MIDLINE INSERTION/CONSULT 09/16/2018 TUBAL LIGATION 2018 w/ Filshie clips VAGINAL HYSTERECTOMY UTERUS 250 GM/< 07/15/2018 [facility] ALLERGIES Amoxicillin, Bactrim [Sulfamethoxazole-Trimethoprim], Celexa [Citalopram], Heparin, and Bleach (Sodium Hypochlorite) MEDICATIONS QUEtiapine (SEROQUEL) 50 mg tablet Take 1 tablet by mouth daily at bedtime. diazePAM (VALIUM) 5 mg tablet Take 0.5 tablets by mouth two times a day as needed for muscle spasm or anxiety for up to 30 days. FLUoxetine (PROZAC) 40 mg capsule Take 1 capsule by mouth once daily. gabapentin (NEURONTIN) 400 mg capsule Take one capsule in the morning, and 3 capsules in the evening. topiramate (TOPAMAX) 50 mg tablet Take 1 tablet by mouth once daily. dulaglutide (TRULICITY) 1.5 mg/0.5 mL pen injector Inject 1.5 mg subcutaneously one time a week. Inject once per week. Discard Pen After riboflavin, vitamin B2, 400 mg tab Take 1 tablet by mouth once daily. ferrous sulfate 325 mg (65 mg iron) tablet Take 1 tablet by mouth twice daily. famotidine (PEPCID) 20 mg tablet Take 1 tablet by mouth twice daily as needed. albuterol HFA (PROVENTIL HFA, VENTOLIN HFA) 90 mcg/actuation inhaler Inhale 2 Puffs as instructed every 4 hours as needed for wheezing/shortness of breath. fluticasone (FLONASE) 50 mcg/actuation nasal spray Use 2 Sprays in each nostril once daily. Rinse mouth after use. lactobacillus rhamnosus (CULTURELLE) 10 billion cell capsule Take 1 capsule by mouth once daily. cetirizine (ZYRTEC) 10 mg tablet Take 1 tablet by mouth once daily. magnesium oxide (MAG-OX) 400 mg (241.3 mg magnesium) tablet Take 1 tablet by mouth once daily. Lancets lancets Test blood sugar(s) 1 times daily. Dx: Type 2 DM - Controlled E11.9 Insulin: No blood sugar diagnostic (BLOOD GLUCOSE TEST) test strip Test blood sugar(s) 1 times daily. Dx: Other DM Code R73.03 Insulin: No CPAP CPAP 7 cm H2O. Formal mask refitting & work with RT, chin strap, head gear, humidity, heated tubing(GWENDOLYN), lifetime supplies. G47.33 ELLEN blood sugar diagnostic (BLOOD GLUCOSE TEST) test strip Test blood sugar(s) 1 times daily. Dx: Type 2 DM - Controlled E11.9 Insulin: No ondansetron orally disintegrating (ZOFRAN ODT) 4 mg disintegrating tablet Take 1 tablet by mouth every 8 hours as needed. (Patient not taking: Reported on 05/21/2023) metoprolol tartrate, short acting, (LOPRESSOR) 25 mg tablet Take 0.5 tablets by mouth every 12 hours. Promethazine-DM (PHENERGAN-DM) 6.25-15 mg/5 mL syrup Take 5 mL by mouth four times daily as needed. (Patient not taking: Reported on 05/21/2023) Qtovxpqsjyclsvp-Pgoskxakf-GD (BROMFED DM) 2-30-10 mg/5 mL syrup Take 5 mL by mouth four times daily as needed. (Patient not taking: Reported on 05/21/2023) dextromethorphan-guaiFENesin (MUCINEX DM) 30-600 mg per tablet Take 1 tablet by mouth twice daily. (Patient not taking: Reported on 05/21/2023) atorvastatin (LIPITOR) 40 mg tablet Take 1 tablet by mouth daily at bedtime. For cholesterol. fenofibrate nanocrystallized (TRICOR) 145 mg tablet Take 1 tablet by mouth once daily. FAMILY HISTORY Problem Relation Age of Onset Anxiety disorder Mother Thyroid Mother Hypothyroidism Diabetes Mother other (cellulitis) Mother Bipolar disorder Sister Schizophrenia Sister Hypertension Maternal Aunt Diabetes Maternal Grandfather Hypertension Maternal Grandfather Heart Maternal Grandfather PACEMAKER No Ocular Disease No Family History Social History Tobacco Use Smoking status: Light Smoker Packs/day: 0.50 Years: 15.00 Additional pack years: 0.00 Total pack years: 7.50 Types: Cigarettes Last attempt to quit: 07/16/2018 Years since quittin.8 Smokeless tobacco: Never Tobacco comments: with anxiety Vaping Use Vaping Use: Never used Substance Use Topics Alcohol use: No Drug use: No ASSESSMENT/PLAN: 1. Urinary frequency - ICD9: 788.41, ICD10: R35.0 (primary diagnosis) - UA DIP, URINE (POC) - URINE CULTURE - BACTERIAL VAGINOSIS NAAT- self swab 2. Vaginal discharge - ICD9: 623.5, ICD10: N89.8 - LOVE/TRICHOMONAS NAAT No treatment at this time. Judith Brown APRN.MARIE Prescription instructions reviewed with patient as applicable. Potential red flag symptoms discussed with the patient. Reviewed appropriate action plan to take if red flag symptoms occur. Patient agreeable to treatment plan. Judith Brown APRN.MARIE documented in this encounter [facility] 04-28-2023 Miscellaneous Notes Patient has been identified by name and date of : Yes Requested Prescriptions Pending Prescriptions Disp Refills QUEtiapine (SEROQUEL) 50 mg tablet 90 tablet 0 Sig: Take 1 tablet by mouth daily at bedtime. diazePAM (VALIUM) 5 mg tablet 30 tablet 0 Sig: Take 0.5 tablets by mouth two times a day as needed for muscle spasm or anxiety for up to 30 days. FLUoxetine (PROZAC) 40 mg capsule 30 capsule 1 Sig: Take 1 capsule by mouth once daily. gabapentin (NEURONTIN) 400 mg capsule 120 capsule 2 Sig: Take one capsule in the morning, and 3 capsules in the evening. RX INSTRUCTIONS: Patient aware RX will be sent to pharmacy. No need to notify patient. Follow up 06/08/2023. Jordana Cisse LPN documented in this encounter [facility] 03-04-2023 Discharge summary Note Date/Time March 04, 2023 1:34pm [facility] Medical Records Department [address] [place] [address] Instructions for Home/Discharge Instructions 03/04/23 1334 MR#: [id number] Acct: [id number] Name: TRENAJune Rep #:[id number] : 1985 37 From: Radha Rodríguez MD PCP: KIMBERLEY Olivo Status:ADM I N Discharge Instructions Diet Discharge Diet: Low fat / Low cholesterol Activity Discharge Activity: Return to Normal Activity Weight Bearing Status: Weight bearing as tolerated Dressing / Incision Call your doctor if you observe: Fever of 101 or Higher, Shortness of breath, Dizziness, Swelling in the ankles and Chest pain Follow Up Care Test Results: Test results from this visit will be discussed in further detail at your follow-up appointment, if applicable. Discharge Plan Admission Admit Date/Time: 02/27/23 00:53 Primary Reason for Your Visit: acute hypoxic respiratory failure, pneumonia Attending Provider: Radha Rodríguez Primary Care Provider: Nallely Butler NP Consulting Providers: Asaf Johnston; Asaf Bernal Instructions Patient Instructions: RSV (Respiratory Syncytial Virus), ED Pneumonia (Adult) Additional Instructions / Restrictions: use oxygen 2L as needed for shortness of breath Discharge Orders/Prescriptions Prescriptions: New prednisone 20 mg Tablet 40 mg PO BREAKFAST Qty: 2 0RF levofloxacin 750 mg tablet 750 mg PO DAILY Qty: 5 0RF Continued fenofibrate nanocrystallized [Tricor] 145 mg tablet 145 mg PO DAILY atorvastatin [Lipitor] 40 mg tablet 40 mg PO QHS riboflavin (vitamin B2) 400 mg tablet 400 mg PO DAILY quetiapine [Seroquel] 50 mg tablet 50 mg PO QHS gabapentin 100 mg capsule 100 mg PO DAILY PRN (Reason: Neuropathy) gabapentin 400 mg capsule 400 mg PO 4X/DAY albuterol sulfate [Ventolin HFA] 18 GM HFA aerosol inhaler 2 puff IH 4X/DAY PRN PRN (Reason: Allergies) ferrous sulfate 325 MG tablet 325 mg PO DAILY metoprolol tartrate 25 MG tablet 12.5 mg PO BID ondansetron HCl 8 MG tablet 8 mg PO Q8H PRN PRN (Reason: Nausea) diazepam [Valium] 5 mg tablet 2.5 mg PO BID fluoxetine [Prozac] 40 mg capsule 40 mg PO DAILY Rx Instructions: administer in the morning and at noon/midday famotidine 20 mg tablet 20 mg PO DAILY Patient Comments: TAKE 1 TABLET BY MOUTH TWICE DAILY NEEDED topiramate 50 mg tablet 50 mg PO DAILY Patient Comments: Take 1 tablet by mouth once daily. Referrals / Follow Up: Nallely Butler NP, NP-C [Primary Care Provider] - Within 2 Weeks Disposition Disposition (needs filled in before D/C Order can be placed): Home, Self Care 03/04/234<Electronically signed by Radha Rodríguez MD>Radha Rodríguez MD CC: JUSTIN-C Nallely Butler; Dr. Asaf Bernal MD; Dr. Asaf Johnston, DO ~ Signed [facility] Work Phone: 1(207) 910-407612-13-2023 Discharge summary Author [facility] March 04, 2023 3:30pm Note Date/Time March 04, 2023 1:34pm [facility] Medical Records Department [address] [place] [address] Discharge Summary 03/04/23 1334 MR#: [id number] Acct: [id number] Name: TRENAJune Rep #:[id number] : 1985 37 From: Radha Rodríguez MD PCP: KIMBERLEY Olivo Status:ADM I N Location: ICU CVICU20 1-1 Providers Date of Admission: 02/27/23 Date of Discharge: 03/04/23 Primary Care Physician: KIMBERLEY Olivo Consultations 02/27/23 02:34 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 / Pulmonary Medicine Routine Consulting Provider: [facility] Reason for Consult: Sepsis with multifocal bacterial pneumonia and RSV infection EMERGENT Consult: No MD Notified: Yes Date Notified: 02/27/23 Time Notified: 00:59 Method of Notification: Text Reason For Visit: SEPSIS, MULTIFOCAL PNEUMONIA, RSV & ACUTE HYPOXIC Diagnosis Discharge Diagnosis (1) RSV (respiratory syncytial virus infection): Status: Acute Code(s): B33.8 - Other specified viral diseases (2) Bilateral interstitial pneumonia: Status: Acute Code(s): J84.9 - Interstitial pulmonary disease, unspecified (3) Acute hypoxemic respiratory failure: Status: Acute Code(s): J96.01 - Acute respiratory failure with hypoxia Plan #Acute hypoxic respiratory failure due to RSV infection with superimposed pneumonia * now down to 1L of oxygen * wbc still elevated, but has trended down to 16.8 * titrate oxygen to maintain sats >90% * breathing treatment with bronchodilators. * she had a walking pulse ox which showed that she desturated to 78% on room air, and was 89% on 2L of oxygen. * will keep patient one more day to further optimise her. * #Sepsis due to bilateral pneumonia: as above #RSV infection: as above #Hyperlipidemia: on statin and fenofibrate #History of DVT: currently not any blood thinners. #NOn alcoholic fatty liver disease: stable. #Depression with anxiety: on fluoxetine and seroquel DVT prophylaxis: lovenox Disposition; for likely dc tomorrow Medications at Discharge Home Medications albuterol sulfate 90 mcg/actuation aerosol inhaler (Ventolin HFA) 2 puff IH 4X/DAY PRN PRN Allergies 06/17/18 ferrous sulfate 325 mg (65 mg iron) tablet 325 mg PO DAILY Suppleme 12/03/18 metoprolol tartrate 25 mg tablet 12.5 mg PO BID Blood pressure 12/03/18 ondansetron HCl 8 mg tablet 8 mg PO Q8H PRN PRN Nausea 03/29/20 atorvastatin 40 mg tablet (Lipitor) 40 mg PO QHS Cholestrol 05/15/21 fenofibrate nanocrystallized 145 mg tablet (Tricor) 145 mg PO DAILY Cholestrol 05/15/21 gabapentin 100 mg capsule 100 mg PO DAILY PRN Neuropathy 05/15/21 gabapentin 400 mg capsule 400 mg PO 4X/DAY Neuropathy 05/15/21 quetiapine 50 mg tablet (Seroquel) 50 mg PO QHS Anxiety 05/15/21 riboflavin (vitamin B2) 400 mg tablet 400 mg PO DAILY Supplement 05/15/21 diazepam 5 mg tablet (Valium) 2.5 mg PO BID Anxiety 02/27/23 famotidine 20 mg tablet 20 mg PO DAILY Gerd 02/27/23 fluoxetine 40 mg capsule (Prozac) 40 mg PO DAILY Depression 02/27/23 topiramate 50 mg tablet 50 mg PO DAILY depression 02/27/23 levofloxacin 750 mg tablet 750 mg PO DAILY #5 tabs 03/04/23 prednisone 20 mg tablet 40 mg (2 x 20 mg) PO BREAKFAST #2 tabs 03/04/23 Hospital Course Operations None Procedures None Summary of Care Provided Minutes Spent on Discharge: 55 Hospital Course: Patient is a 37-year-old female with a past medical history as outlined was admitted through the ED on 02/27/2023 with a complaint of shortness of breath, cough and wheezing which have been going on for about 1 week. She had been diagnosed with RSV a week prior to admission and was being treated conservatively. His symptoms worsened and she was not improving as she had a cough productive of greenish to yellowish sputum. She was therefore brought into the ED. She was tachypneic in the ED and placed on supplemental oxygen. WBC was elevated at 19.5 and chest x-ray showed right lower lobe infiltrate. Hewas admitted initially to the ICU due to worsening respiratory distress. She required up to 10 L of oxygen. She had an extensive history of smoking. She was managed for sepsis due to bilateral pneumonia as well as acute hypoxic respiratory failure due to RSV infection and superimposed bilateral pneumonia. Sputum cultures were negative. She did test positive again for RSV. Oxygen requirements gradually improved and her breathing improved. She was eventually weaned down to 1 L of oxygen. She had walking pulse ox which showed that she required 2 L of oxygen. Patient was discharged home on 03/04/2023 on 2 L of oxygen. She was given a 5-day course of p.o. Levaquin 750 mg daily as well as p.o. prednisone to complete a 5-day course. She is to follow-up with her primary care doctor and to follow-up with pulmonology on outpatient basis. She was counseled to quit smoking. Patient seen and examined prior to discharge. She had no active events and feltmuch better. She was eager to be discharged. Review of systems otherwise negative. Labs and vitals reviewed. Home medication reviewed and reconciled. Physical Exam Const alert, oriented x3 and no apparent distress General Appearance: cooperative Orientation / Consciousness: lethargic HEENT normocephalic, head/scalp atraumatic, hearing grossly normal bilaterally, moist oral mucous membranes and oropharynx normal Eyes PERRL, EOMs intact bilaterally and conjunctivae normal Neck no lymphadenopathy and supple Lymph Lymphatic: no lymphadenopathy noted and no lymphedema noted Resp Resp Narrative: diminished breath sounds bibasally, no wheezes, few crackles. On 1L of oxygen bynasal canula Cardio regular rate, regular rhythm, S1 normal heart sound, S2 normal heart sound and no murmurs GI normal to inspection, nondistended, normoactive bowel sounds, soft to palpation,non-tender and non-distended GI Narrative: Obese. Extremity normal to inspection, full ROM, normal capillary refill, no clubbing, cyanosis or edema and no calf tenderness General Extremity: no tenderness to palpation of joints or extremities Skin General Skin Exam: no breakdown Neuro oriented x3, CN's II-XII intact bilaterally, moves all extremities, no focal motor deficits, no sensory deficits noted and deep tendon reflexes 2+ bilaterally Sensorium / Orientation: awake, alert, oriented to person, oriented to place andoriented to time Speech: speech normal Motor Exam: strength 5/5 throughout and general weakness Psych thought process normal and cooperative Appearance: appropriate Weight / BMI Weight Weight: 250 lb Body Mass Index (BMI) 39.1 ABG / Lab / Microbiology Data 03/04/23 03:25 03/04/23 03:25 Laboratory: Laboratory Results - last 24 hr 03/04/23 03:25: WBC 22.2 H, RBC 4.41, Hgb 12.8, Hct 41.1, MCV 93.2, MCH 29.0, MCHC 31.1 L, RDW Std Deviation 47.1 H, RDW Coeff of Kendra 13.9, Plt Count 455 H, MPV 9.9, Neut % (Auto) Not Reportable, Absolute Neuts (auto) 12.7 H, Absolute Lymphs (auto) 9.11 H, Total Counted 100, Neutrophils % (Manual) 49, Lymphocytes % (Manual) 41, Monocytes % (Manual) 1, Basophils % (Manual) 1, Metamyelocytes % 7 H, Myelocytes % 1 H, Differential Comment MANUAL DIFF, Diff Path Review Nadya falcon, Platelet Estimate SLT INC, RBC Morphology NORM C+C, Sodium 140, Potassium 3.7, Chloride 110 H, Carbon Dioxide 24.0, Anion Gap 6, BUN 24 H, Creatinine 1.00, Estim Creat Clear Calc 73.45, Est GFR (MDRD) Af Amer 80, Est GFR (MDRD) Non-Af 66, BUN/Creatinine Ratio 24.0 H, Glucose 92, Calcium 8.5 Microbiology: Microbiology 02/27/23 01:22 Blood Culture (Wb) - Right Forearm Blood Culture - Final No growth in 5 days. 02/27/23 01:12 Blood Culture (Wb) - Anticubital Left Blood Culture - Final No growth in 5 days. 02/27/23 15:24 Mucosa - Nasopharyngeal Coronavirus COVID-19 PCR - Final 02/27/23 02:55 Mucosa - Nasopharyngeal Respiratory Panel (PCR) - Final RSV B 02/27/23 03:25 Urine, Clean Catch Legionella Antigen - Final 02/27/23 03:25 Urine, Clean Catch Streptococcus pneumoniae Antigen (M - Final D/C Instructions Discharge Diet: Low fat / Low cholesterol Discharge Activity: Return to Normal Activity Weight Bearing Status: Weight bearing as tolerated Call your doctor if you observe: Fever of 101 or Higher, Shortness of breath, Dizziness, Swelling in the ankles and Chest pain Meaningful Use Info Meaningful Use Diagnoses (Choose all that apply): None applicable Discharge Plan Admission Admit Date/Time: 02/27/23 00:53 Primary Reason for Your Visit: acute hypoxic respiratory failure, pneumonia Attending Provider: Radha Rodríguez Primary Care Provider: Nallely Butler NP Consulting Providers: Asaf Johnston; Asaf Bernal Instructions Patient Instructions: RSV (Respiratory Syncytial Virus), ED Pneumonia (Adult) Additional Instructions / Restrictions: use oxygen 2L as needed for shortness of breath Discharge Orders/Prescriptions Prescriptions: New prednisone 20 mg Tablet 40 mg PO BREAKFAST Qty: 2 0RF levofloxacin 750 mg tablet 750 mg PO DAILY Qty: 5 0RF Continued fenofibrate nanocrystallized [Tricor] 145 mg tablet 145 mg PO DAILY atorvastatin [Lipitor] 40 mg tablet 40 mg PO QHS riboflavin (vitamin B2) 400 mg tablet 400 mg PO DAILY quetiapine [Seroquel] 50 mg tablet 50 mg PO QHS gabapentin 100 mg capsule 100 mg PO DAILY PRN (Reason: Neuropathy) gabapentin 400 mg capsule 400 mg PO 4X/DAY albuterol sulfate [Ventolin HFA] 18 GM HFA aerosol inhaler 2 puff IH 4X/DAY PRN PRN (Reason: Allergies) ferrous sulfate 325 MG tablet 325 mg PO DAILY metoprolol tartrate 25 MG tablet 12.5 mg PO BID ondansetron HCl 8 MG tablet 8 mg PO Q8H PRN PRN (Reason: Nausea) diazepam [Valium] 5 mg tablet 2.5 mg PO BID fluoxetine [Prozac] 40 mg capsule 40 mg PO DAILY Rx Instructions: administer in the morning and at noon/midday famotidine 20 mg tablet 20 mg PO DAILY Patient Comments: TAKE 1 TABLET BY MOUTH TWICE DAILY NEEDED topiramate 50 mg tablet 50 mg PO DAILY Patient Comments: Take 1 tablet by mouth once daily. Referrals / Follow Up: Nallely Butler NP, 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 [Primary Care Provider] - Within 2 Weeks Disposition Disposition (needs filled in before D/C Order can be placed): Home, Self Care Charges/Coding Visit Charges Inpatient E&M: 43272 Disch Hosp >30min 03/04/23 1448 <Electronically signed by Radha Rodríguez MD> Cosigner Signature (if applicable): CC: KIMBERLEY Butler; Dr. Radha Rodríguez MD~ Signed ADDENDUM by Dr. Radha Rodríguez MD on 03/04/23 at 1530 Addendum Addendum: Patient is mobile in the home and community and required 2 L of oxygenat time of discharge. 03/04/23 1530<Electronically signed by Radha Rodríguez MD> Cosigner Signature (if applicable): cc: KIMBERLEY Butler; Dr. Radha Rodríguez MD ~* Signed [facility] Work Phone: 1(832) 606-151412-13-2023 History of Present illness Narrative* Elin Dotson, PRIMO.HAMMER SETTER - 03/04/2023 1:34 PM EST FOLLOW UP - PSYCHIATRIC PROGRESS NOTE Visit Type:Virtual Visit utilizing two-way audio and video for at least a portion of the visit. Consent for virtual visit obtained verbally. Confidentiality limitations with virtual visits reviewed with the patient and guardian, if present, who have accepted the risk verbally prior to proceeding with encounter. I have communicated my name and active licensure. The patient's identity and physical location were verified at the time of this visit. 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 Reason for Visit: Outpatient follow-up and safety monitoring of previously prescribed psychiatric medication, psychotherapy or other treatment CC: Follow up after increase in Prozac dose. HPI: Treatment plan from last appointment on 12/24/2022: Increase Prozac dose to address mood and anxiety symptoms. Continue Trazodone and Seroquel at the same dose. Utilize Diazepam only as need to for increased episodes of anxiety. Follow up in 2 months or sooner if needed. Today June shares that she has been in the [facility] for the past week. She had RSV and then double pneumonia. She had to be on 7 Liters of oxygen. Now when she is moving her oxygen is still dropping. They are not sure of the discharge plans for her yet. This has increased her anxiety. Theyhave been given her all her medications consistently at the hospital. Denies any side effects from her medications. She stopped her trazodone and has been able to sleep well with just the Seroquel. She is taking Diazepam while she is in the hospital. Has tolerated the increase in Prozac dose without any concerns. Notices it helping with her anxiety. Risks and benefits of the medication, including any black box warnings, were discussed with the patient. Interval Progress: Slightly improved PATIENT DATA: Generalized Anxiety Disorder Scale (BECCA-7) BECCA - 7 SCORES 10/07/2022 12/24/2022 03/04/2023 BECCA-7 Score 6 13 7 (0-4) minimal anxiety, (5-9) mild anxiety, (10-14) moderate anxiety, (15-21) severe anxiety Patient Health Questionnaire (PHQ-9) PHQ-9 10/07/2022 12/24/2022 03/04/2023 Score 6 14 7 (0-4) minimal depression, (5-9) mild depression, (10-14) moderate depression, (15-19) moderately severe depression, (20-27) severe depression PROMIS Global Health PROMIS Global Health - (T-Scores - the mean of general population = 50. 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 Hypertension Iron deficiency anemia Neuropathy bilateral lower ext Obesity (BMI 30-39.9) ELLEN (obstructive sleep apnea) 09/11/2021 Pap smear abnormality of cervix with ASCUS favoring benign 02/05/2015 Pneumonia 2019 MSSA, pseudomonas depression Type 2 diabetes mellitus without complication, without long-term current use of insulin ([facility]) 03/13/2020 PAST SURGICAL HISTORY Procedure Laterality Date DILATION & CURETTAGE DX&/THER NONOBSTETRIC 2004 Dilation & curettage MIDLINE INSERTION/CONSULT 09/16/2018 TUBAL LIGATION 2018 w/ Filshie clips VAGINAL HYSTERECTOMY UTERUS 250 GM/< 07/15/2018 [facility] Current Outpatient Medications Medication Sig Dispense Refill FLUoxetine (PROZAC) 40 mg capsule Take 1 capsule by mouth once daily. 30 capsule 1 gabapentin (NEURONTIN) 400 mg capsule Take one capsule in the morning, and 3 capsules in the evening. 120 capsule 2 QUEtiapine (SEROQUEL) 50 mg tablet Take 1 tablet by mouth daily at bedtime. 90 tablet 0 ondansetron orally disintegrating (ZOFRAN ODT) 4 mg disintegrating tablet Take 1 tablet by mouth every 8 hours as needed. 20 tablet 0 dulaglutide (TRULICITY) 1.5 mg/0.5 mL pen injector Inject 1.5 mg subcutaneously one time a week. Inject once per week. Discard Pen After 2 mL 5 metoprolol tartrate, short acting, (LOPRESSOR) 25 mg tablet Take 0.5 tablets by mouth every 12 hours. 30 tablet 5 topiramate (TOPAMAX) 50 mg tablet Take 1 tablet by mouth once daily. 30 tablet 5 riboflavin, vitamin B2, 400 mg tab Take 1 tablet by mouth once daily. 30 tablet 5 Promethazine-DM (PHENERGAN-DM) 6.25-15 mg/5 mL syrup Take 5 mL by mouth four times daily as needed.240 mL 0 benzonatate (TESSALON PERLE) 100 mg capsule Take 2 capsules by mouth three times daily as needed. (Patient not taking: Reported on 02/23/2023) 30 capsule 0 ferrous sulfate 325 mg (65 mg iron) tablet Take 1 tablet by mouth twice daily. 180 tablet 0 famotidine (PEPCID) 20 mg tablet Take 1 tablet by mouth twice daily as needed. 60 tablet 3 Jnhfhrttfdceuwj-Xrgvxyapr-FQ (BROMFED DM) 2-30-10 mg/5 mL syrup Take 5 mL by mouth four times dailyas needed. 118 mL 0 albuterol HFA (PROVENTIL HFA, VENTOLIN HFA) 90 mcg/actuation inhaler Inhale 2 Puffs as instructed every 4 hours as needed for wheezing/shortness of breath. 18 g 1 dextromethorphan-guaiFENesin (MUCINEX DM) 30-600 mg per tablet Take 1 tablet by mouth twice daily. 20 tablet 0 fluticasone (FLONASE) 50 mcg/actuation nasal spray Use 2 Sprays in each nostril once daily. Rinse mouth after use. 1 Each 2 lactobacillus rhamnosus (CULTURELLE) 10 billion cell capsule Take 1 capsule by mouth once daily. 30capsule 0 cetirizine (ZYRTEC) 10 mg tablet Take 1 tablet by mouth once daily. 30 tablet 11 magnesium oxide (MAG-OX) 400 mg (241.3 mg magnesium) tablet Take 1 tablet by mouth once daily. 30 tablet 5 atorvastatin (LIPITOR) 40 mg tablet Take 1 tablet by mouth daily at bedtime. For cholesterol. 90 tablet 3 fenofibrate nanocrystallized (TRICOR) 145 mg tablet Take 1 tablet by mouth once daily. 90 tablet 3 Lancets lancets Test blood sugar(s) 1 times daily. Dx: Type 2 DM - Controlled E11.9 Insulin: No 100Each 11 blood sugar diagnostic (BLOOD GLUCOSE TEST) test strip Test blood sugar(s) 1 times daily. Dx: OtherDM Code R73.03 Insulin: No 50 Strip 11 cyclobenzaprine (FLEXERIL) 10 mg tablet Take 1 tablet by mouth three times daily as needed for muscle spasm. (Patient not taking: Reported on 02/23/2023) 18 tablet 0 CPAP CPAP 7 cm H2O. Formal mask refitting & work with RT, chin strap, head gear, humidity, heated tubing(GWENDOLYN), lifetime supplies. G47.33 ELLEN 1 Device 11 blood sugar diagnostic (BLOOD GLUCOSE TEST) test strip Test blood sugar(s) 1 times daily. Dx: Type 2 DM - Controlled E11.9 Insulin: No 50 Strip 11 No current facility-administered medications for this visit. ROS: See HPI PFSH: See HPI VITAL SIGNS: There were no vitals filed for this visit. MENTAL STATUS EXAM: CONSTITUTIONAL: Appropriately dressed ORIENTATION: Person, Place, Time and Situation MEMORY: Recent intact, Remote intact, Immediate intact CONCENTRATION: Normal MOOD: euthymic AFFECT: Full and appropriate to topic SPEECH : Clear & distinct LANGUAGE : Normal ASSOCIATIONS: Intact THOUGHT PROCESS : Logical, Coherent, and Rational PROGRESSION : There was no evidence of disturbance in thought perception or progression. FUND OF KNOWLEDGE : Appropriate and Adequate SUICIDE: None HOMICIDE: None DATA REVIEWED: Psychiatric scales and Electronic medical record DIAGNOSIS: PRIMARY: Panic disorder with agoraphobia Secondary : MDD, recurrent, in partial remission GAF: -60-51 Moderate symptoms or moderate difficulty in social, occupational or school functioning. TREATMENT PLAN: 1. Discontinue Trazodone as patient has been able to sleep well with just the use of Seroquel. 2. Continue Prozac and Gabapentin at the same dose. 3. Utilize Diazepam as needed to manage anxiety symptoms and muscle spasms. 4. Discuss engagement in individual psychotherapy at the next visit. MEDICATION CHANGES: Trazodone discontinued. PDMP report was reviewed and found to be appropriate without any signs of misuse or diversion. Follow Up: 4 to 6 weeks I spent a total of 28 minutes on the date of the service which included preparing to see the patient, [id number]-[id number] patient care, completing clinical documentation, obtaining and/or reviewing separately obtained history, counseling and educating the patient/family/caregiver, ordering medications, joann ts, or procedures, independently interpreting results (not separately reported), and communicating results to the patient/family/caregiver. ADD ON PSYCHOTHERAPY CODE : No SIGNATURE: Elin Dotson APRN.CNP [facility] DATE: March 04, 2023 TIME: 1:34 PM [facility] Progress note Author Radha Rodríguez [facility] March 03, 2023 3:55pm Note Date/Time March 03, 2023 2:59pm [facility] Medical Records Department [address] [place] [address] Progress Note 03/03/23 1454 MR#: [id number] Acct: [id number] Name: TRENAJune Rep #:[id number] : 1985 37 From: Radha Rodríguez MD PCP: KIMBERLEY Olivo Status:ADM I N Location: ICU CVICU20 1-1 Subjective Subjective Patient seen and examined. She said she felt much better. She is down to 1L of oxygen. She denied any cough, chest pain, palpitations, dizziness, nausea, vomiting or any other symptoms. Review of systems is otherwise negative. Objective Data Objective Data Vital Signs: Vital Signs Temp Pulse Resp BP Pulse Ox O2 Del Method O2 Flow Rate 97.5 F L 79 20 H 83/60 L 89 Nasal Cannula 1 03/03/23 08:48 03/03/23 11:45 03/03/23 11:45 03/03/23 08:48 03/03/23 11:15 03/03/23 08:48 03/03/23 11:15 FiO2 10 03/01/23 23:00 Oxygen Flow Rate (L/min) [ 89 AMBULATING with Oxygen #2] Oxygen Flow Rate (L/min) [ 1 AMBULATING with Oxygen #1] Oxygen Flow Rate (L/min) 2 Oxygen Delivery Method Nasal Cannula Weight: 250 lb 3.594 oz Body Mass Index (BMI) 39.2 Intake & Output: Intake and Output for Last 24 Hours 03/01/23 03/02/23 03/03/23 23:59 23:59 23:59 Intake Total 1060 / 1060 305 / 305 300 / 300 Output Total 200 / 200 Balance 860 / 860 305 / 305 300 / 300 Lab / Micro Data 03/03/23 04:50 03/03/23 04:50 Labs: Laboratory Results - last 24 hr 03/02/23 03:15: Diff Path Review Reviewed 03/03/23 04:50: WBC 19.1 H, RBC 4.44, Hgb 13.0, Hct 41.6, MCV 93.7, MCH 29.3, MCHC 31.3 L, RDW Std Deviation 48.4 H, RDW Coeff of Kendra 14.1, Plt Count 428, MPV10.1, Neut % (Auto) Not Reportable, Absolute Neuts (auto) 10.9 H, Absolute Lymphs (auto) 6.87 H, Total Counted 100, Neutrophils % (Manual) 57, Lymphocytes % (Manual) 36, Monocytes % (Manual) 3, Eosinophils % (Manual) 1, Metamyelocytes % 1, Myelocytes % 2 H, Differential Comment SCANNED, Diff Path Review Reviewed, Reactive Lymphocytes 2+, Sodium 140, Potassium 3.5, Chloride 107, Carbon Ogzqrli27.0, Anion Gap 8, BUN 21 H, Creatinine 0.98, Estim Creat Clear Calc 74.95, Est GFR (MDRD) Af Amer 81, Est GFR (MDRD) Non-Af 67, BUN/Creatinine Ratio 21.4 H, Glucose 84, Calcium 8.6 Micro: Microbiology 02/27/23 01:22 Blood Culture (Wb) - Right Forearm Blood Culture - Preliminary No growth in 48 hours. 02/27/23 01:12 Blood Culture (Wb) - Anticubital Left Blood Culture - Preliminary No growth in 48 hours. 02/27/23 15:24 Mucosa - Nasopharyngeal Coronavirus COVID-19 PCR - Final 02/27/23 02:55 Mucosa - Nasopharyngeal Respiratory Panel (PCR) - Final RSV B 02/27/23 03:25 Urine, Clean Catch Legionella Antigen - Final 02/27/23 03:25 Urine, Clean Catch Streptococcus pneumoniae Antigen (M - Final Rhythm Strip Rhythm Strip: Sinus Rhythm Rate: 82 Ectopy: None Physical Exam Const alert, oriented x3 and no apparent distress General Appearance: cooperative Orientation / Consciousness: lethargic HEENT normocephalic, head/scalp atraumatic, hearing grossly normal bilaterally, moist oral mucous membranes and oropharynx normal Eyes PERRL, EOMs intact bilaterally and conjunctivae normal Neck no lymphadenopathy and supple Lymph Lymphatic: no lymphadenopathy noted and no lymphedema noted Resp Resp Narrative: diminished breath sounds bibasally, no wheezes, few crackles. On 1L of oxygen bynasal canula Cardio regular rate, regular rhythm, S1 normal heart sound, S2 normal heart sound and no murmurs GI normal to inspection, nondistended, normoactive bowel sounds, soft to palpation,non-tender and non-distended GI Narrative: Obese. Extremity normal to inspection, full ROM, normal capillary refill, no clubbing, cyanosis or edema and no calf tenderness General Extremity: no tenderness to palpation of joints or extremities Skin Skin Narrative: Patient has no evidence of rash at this time. General Skin Exam: no breakdown Neuro oriented x3, CN's II-XII intact bilaterally, moves all extremities, no focal motor deficits, no sensory deficits noted and deep tendon reflexes 2+ bilaterally Sensorium / Orientation: awake, alert, oriented to person, oriented to place andoriented to time Speech: speech normal Motor Exam: strength 5/5 throughout and general weakness Psych thought process normal and cooperative Appearance: appropriate Assessment & Plan Assessment/Plan (1) RSV (respiratory syncytial virus infection): (2) Bilateral interstitial pneumonia: (3) Acute hypoxemic respiratory failure: PLAN: Plan #Acute hypoxic respiratory failure due to RSV infection with superimposed pneumonia * now down to 1L of oxygen * wbc still elevated, but has trended down to 16.8 * titrate oxygen to maintain sats >90% * breathing treatment with bronchodilators. * she had a walking pulse ox which showed that she desturated to 78% on room air, and was 89% on 2L of oxygen. * will keep patient one more day to further optimise her. * #Sepsis due to bilateral pneumonia: as above #RSV infection: as above #Hyperlipidemia: on statin and fenofibrate #History of DVT: currently not any blood thinners. #NOn alcoholic fatty liver disease: stable. #Depression with anxiety: on fluoxetine and seroquel DVT prophylaxis: lovenox Disposition; for likely dc tomorrow Charges/Coding Visit Charges Inpatient E&M: 12582 Subs Hosp L2 03/03/23 6690 <Electronically signed by Radha Rodríguez MD> Radha Rodríguez MD Cosigner Signature (if applicable): CC: ~ Signed [facility] Work Phone: 1(996) 869-148612-12-2023 Progress note Author Dick Godwin [facility] March 03, 2023 8:49am Note Date/Time March 03, 2023 7:00am [facility] Medical Records Department [address] [place] [address] Progress Note - Machining Technician 03/03/23 0659 MR#: [id number] Acct: [id number] Name: TRENAJune Rep #:[id number] : 1985 37 From: Dick Godwin DO PCP: KIMBERLEY Olivo Status:ADM I N Location: ICU CVICU 1-1 Assessment & Plan Assessment/Plan (1) RSV (respiratory syncytial virus infection): (2) Acute hypoxemic respiratory failure: (3) Bilateral interstitial pneumonia: (4) Sepsis without acute organ dysfunction: QUALIFIERS: Sepsis type: sepsis due to unspecified organism Qualified Code(s): A41.9 - Sepsis, unspecified organism PLAN: Plan RECOMMENDATIONS: 1. Continue to wean supplemental oxygen to maintain saturations at or above 90%. 2. Continue nocturnal CPAP therapy. 3. Continue antimicrobials to complete treatment course. 4. Continue bronchodilators and steroids. Continue prednisone 40 mg daily x 5 days. 5. Perform walking oximetry study prior to consideration for discharge home. 6. Will sign off from a critical care perspective. Please call with any additional questions. IMPRESSIONS: 1. Sepsis secondary to bilateral pneumonia The patient continues to demonstrate favorable clinical response to antimicrobials, which will be continued to complete treatment course for underlying pneumonia. The patient remains hemodynamically stable. 2. Acute hypoxic respiratory failure Appears to be multifactorial with RSV and bacterial pneumonia contributing. Thepatient is responding favorably to antibiotics, bronchodilators and steroids. Plan to transition from IV Solu-Medrol to prednisone 40 mg daily today. The patient does have an extensive tobacco abuse history so there would be concern for underlying obstructive lung disease and/or asthma. Continue supplemental oxygen to maintain saturations at or above 90%. The patient would benefit from outpatient pulmonary workup after discharge. 3. Diabetes mellitus/ELLEN/hyperlipidemia/obesity/delayed presentation/anxiety/restless legs/history of fatty liver disease/iron deficiency anemia Complicates care, management, recovery and prognosis. Continue home medicationsas indicated. This note was generated with [employer]uitive Motion[employer] software. It may contain incorrectwords, spelling, and punctuation that were not noted in checking the note beforesigning. Subjective Subjective The patient was seen and examined at the bedside this morning. Events from the last 24 hours have been reviewed. The patient is currently afebrile, hemodynamically stable and maintaining appropriate oxygen saturations on 2 L/minvia nasal cannula. No overnight issues were identified by the nursing staff. Objective Data Objective Data The patient's most recent lab work, culture data and imaging studies have all been personally reviewed. Surface echocardiogram demonstrated normal LV size and function with an ejection fraction of 55%. Respiratory viral panel was positive for RSV on February 27. COVID PCR was negative. Strep and urine Legionella antigens were negative. Vital Signs: Vital Signs Temp Pulse Resp BP Pulse Ox O2 Del Method O2 Flow Rate 97.8 F 76 18 110/73 97 Nasal Cannula 2 03/03/23 03:00 03/03/23 03:00 03/03/23 03:00 03/03/23 03:00 03/03/23 03:00 03/03/23 03:00 03/03/23 03:00 FiO2 10 03/01/23 23:00 Oxygen Flow Rate (L/min) 2 Oxygen Delivery Method Nasal Cannula Weight: 250 lb 3.594 oz Body Mass Index (BMI) 39.2 Intake & Output: Intake and Output for Last 24 Hours 03/01/23 03/02/23 03/03/23 23:59 23:59 23:59 Intake Total 1060 / 1060 305 / 305 Output Total 200 / 200 Balance 860 / 860 305 / 305 Lab / Micro Data Attestation: I reviewed the patient's lab results. 03/03/23 04:50 03/03/23 04:50 Labs: Laboratory Results - last 24 hr 03/03/23 04:50: WBC 19.1 H, RBC 4.44, Hgb 13.0, Hct 41.6, MCV 93.7, MCH 29.3, MCHC 31.3 L, RDW Std Deviation 48.4 H, RDW Coeff of Kendra 14.1, Plt Count 428, MPV10.1, Neut % (Auto) Not Reportable, Absolute Neuts (auto) 10.9 H, Absolute Lymphs (auto) 6.87 H, Total Counted 100, Neutrophils % (Manual) 57, Lymphocytes % (Manual) 36, Monocytes % (Manual) 3, Eosinophils % (Manual) 1, Metamyelocytes % 1, Myelocytes % 2 H, Differential Comment SCANNED, Diff Path Review May foll, Reactive Lymphocytes 2+, Sodium 140, Potassium 3.5, Chloride 107, Carbon Evagszz62.0, Anion Gap 8, BUN 21 H, Creatinine 0.98, Estim Creat Clear Calc 74.95, Est GFR (MDRD) Af Amer 81, Est GFR (MDRD) Non-Af 67, BUN/Creatinine Ratio 21.4 H, Glucose 84, Calcium 8.6 Micro: Microbiology 02/27/23 01:22 Blood Culture (Wb) - Right Forearm Blood Culture - Preliminary No growth in 48 hours. 02/27/23 01:12 Blood Culture (Wb) - Anticubital Left Blood Culture - Preliminary No growth in 48 hours. 02/27/23 15:24 Mucosa - Nasopharyngeal Coronavirus COVID-19 PCR - Final 02/27/23 02:55 Mucosa - Nasopharyngeal Respiratory Panel (PCR) - Final RSV B 02/27/23 03:25 Urine, Clean Catch Legionella Antigen - Final 02/27/23 03:25 Urine, Clean Catch Streptococcus pneumoniae Antigen (M - Final Rhythm Strip Rhythm Strip: Sinus Rhythm Rate: 82 Ectopy: None Physical Exam Const alert and no apparent distress General Appearance: cooperative HEENT normocephalic, head/scalp atraumatic and moist oral mucous membranes Eyes PERRL, EOMs intact bilaterally and conjunctivae normal Neck supple General: trachea midline Chest inspection of chest normal Resp normal respiratory effort Auscultation: Negative for rales, rhonchi or wheezes Cardio regular rate and regular rhythm GI normal to inspection, nondistended, normoactive bowel sounds Extremity no clubbing, cyanosis or edema Skin no rashes or lesions noted Neuro oriented x3, CN's II-XII intact bilaterally and moves all extremities Psych cooperative and affect normal Charges/Coding Visit Charges Inpatient E&M: 70626 Subs Hosp L2 03/03/23 0849 <Electronically signed by Dick Godwin DO> Cosigner Signature (if applicable): CC: ~ Signed [facility] Work Phone: 1(910) 755-962812-11-2023 Progress note Author Radha Rodríguez [facility] March 02, 2023 4:47pm Note Date/Time March 02, 2023 11:47am [facility] Medical Records Department [address] [place] [address] Progress Note 03/02/23 1136 MR#: [id number] Acct: [id number] Name: TRENAJune Rep #:[id number] : 1985 37 From: Radha Rodríguez MD PCP: KIMBERLEY Olivo Status:ADM I N Location: ICU CVICU 1-1 Subjective Subjective Patient seen an examined. She complained of headache. She feels her breathing isimproving. She denies any cough, chest pain, palpitations, dizziness, nausea, vomiting or any other symptoms. REview of systems is otherwise negative. She wason 10L of oxygen at time I reviewed her this morning, but she is now down to 8L.Review of systems is otherwise negative. Objective Data Objective Data Vital Signs: Vital Signs Temp Pulse Resp BP Pulse Ox O2 Del Method O2 Flow Rate 97.9 F 81 20 H 118/70 97 Nasal Cannula 8 03/02/23 07:00 03/02/23 10:57 03/02/23 10:57 03/02/23 07:00 03/02/23 10:57 03/02/23 10:57 03/02/23 10:57 FiO2 10 03/01/23 23:00 Oxygen Flow Rate (L/min) 8 Oxygen Delivery Method Nasal Cannula Weight: 251 lb 1.704 oz Body Mass Index (BMI) 39.3 Intake & Output: Intake and Output for Last 24 Hours 02/28/23 03/01/23 03/02/23 23:59 23:59 23:59 Intake Total 1900 / 1900 1060 / 1060 Output Total 200 / 200 Balance 1900 / 1900 860 / 860 Lab / Micro Data 03/02/23 03:15 03/02/23 03:15 Labs: Laboratory Results - last 24 hr 03/01/23 12:03: POC Glucose 103 03/02/23 03:15: WBC 16.8 H, RBC 4.02 L, Hgb 11.9 L, Hct 37.6, MCV 93.5, MCH 29.6, MCHC 31.6 L, RDW Std Deviation 48.4 H, RDW Coeff of Kendra 14.1, Plt Count 379, MPV 10.4, Neut % (Auto) Not Reportable, Absolute Neuts (auto) 12.4 H, Absolute Lymphs (auto) 3.70, Total Counted 100, Neutrophils % (Manual) 71 H, Lymphocytes % (Manual) 22, Monocytes % (Manual) 2, Eosinophils % (Manual) 1, Myelocytes % 1 H, Diff Path Review May foll, Sodium 139, Potassium 4.3, [id number], Carbon Dioxide 27.0, Anion Gap 5, BUN 20 H, Creatinine 1.11 H, Estim Creat Clear Calc 66.17, Est GFR (MDRD) Af Amer 70, Est GFR (MDRD) Non-Af 58 L, BUN/Creatinine Ratio 18.0, Glucose 148 H, Calcium 8.4 L Micro: Microbiology 02/27/23 01:22 Blood Culture (Wb) - Right Forearm Blood Culture - Preliminary No growth in 48 hours. 02/27/23 01:12 Blood Culture (Wb) - Anticubital Left Blood Culture - Preliminary No growth in 48 hours. 02/27/23 15:24 Mucosa - Nasopharyngeal Coronavirus COVID-19 PCR - Final 02/27/23 02:55 Mucosa - Nasopharyngeal Respiratory Panel (PCR) - Final RSV B 02/27/23 03:25 Urine, Clean Catch Legionella Antigen - Final 02/27/23 03:25 Urine, Clean Catch Streptococcus pneumoniae Antigen (M - Final Rhythm Strip Rhythm Strip: Sinus Rhythm Rate: 82 Ectopy: None Physical Exam Const alert, oriented x3 and no apparent distress General Appearance: cooperative HEENT normocephalic, head/scalp atraumatic, moist oral mucous membranes and oropharynxnormal Eyes PERRL and EOMs intact bilaterally Neck no lymphadenopathy and supple Lymph Lymphatic: no lymphadenopathy noted and no lymphedema noted Resp Resp Narrative: diminished breath sounds bibasally, no wheezes, few crackles. On 8L of oxygen bynasal canula Cardio regular rate, regular rhythm, S1 normal heart sound, S2 normal heart sound and no murmurs GI normal to inspection, nondistended, normoactive bowel sounds, soft to palpation,non-tender and non-distended Extremity normal capillary refill, no clubbing, cyanosis or edema and no calf tenderness General Extremity: no tenderness to palpation of joints or extremities Skin General Skin Exam: no breakdown Neuro CN's II-XII intact bilaterally, no focal motor deficits, no sensory deficits noted and deep tendon reflexes 2+ bilaterally Motor Exam: strength 5/5 throughout and general weakness Psych thought process normal and cooperative Appearance: appropriate Assessment & Plan Assessment/Plan (1) RSV (respiratory syncytial virus infection): (2) Bilateral interstitial pneumonia: (3) Acute hypoxemic respiratory failure: PLAN: Plan #Acute hypoxic respiratory failure due to RSV infection with superimposed pneumonia * now on 8L of oxygen. * wbc still elevated, but has trended down to 16.8 * titrate oxygen to maintain sats >90% * breathing treatment with bronchodilators. * critical care on board * #Sepsis due to bilateral pneumonia: as above #RSV infection: as above #Hyperlipidemia: on statin and fenofibrate #Hypertension; #History of DVT: currently not any blood thinners. #Hypertension: #NOn alcoholic fatty liver disease: #Depression with anxiety: on fluoxetine and seroquel DVT prophylaxis: lovenox Charges/Coding Visit Charges Inpatient E&M: 31505 [facility] Hosp L3 03/02/23 1647 <Electronically signed by Radha Rodríguez MD> Radha Rodríguez MD Cosigner Signature (if applicable): CC: ~ Signed [facility] Work Phone: [phone]) 598-305612-11-2023 Progress note Author Dick Godwin [facility] March 02, 2023 7:58am Note Date/Time March 02, 2023 7:58am [facility] Medical Records Department [address] [place] [address] Progress Note - Machining Technician 03/02/23 0750 MR#: [id number] Acct: [id number] Name: TRENAJune Rep #:[id number] : 1985 37 From: Dick Godwin DO PCP: KIMBERLEY Olivo Status:ADM I N Location: ICU CVICU 1-1 Assessment & Plan Assessment/Plan (1) RSV (respiratory syncytial virus infection): (2) Acute hypoxemic respiratory failure: (3) Bilateral interstitial pneumonia: (4) Sepsis without acute organ dysfunction: QUALIFIERS: Sepsis type: sepsis due to unspecified organism Qualified Code(s): A41.9 - Sepsis, unspecified organism PLAN: Plan RECOMMENDATIONS: 1. Continue to wean supplemental oxygen to maintain saturations at or above 90%. 2. Continue nocturnal CPAP therapy. 3. Continue antimicrobials to complete treatment course. 4. Continue bronchodilators and steroids. Okay from my perspective to transition to prednisone today. 5. Perform walking oximetry study prior to consideration for discharge home. IMPRESSIONS: 1. Sepsis secondary to bilateral pneumonia The patient continues to demonstrate favorable clinical response to antimicrobials, which will be continued to complete treatment course for underlying pneumonia. The patient remains hemodynamically stable. 2. Acute hypoxic respiratory failure Appears to be multifactorial with RSV and bacterial pneumonia contributing. Thepatient is responding favorably to antibiotics, bronchodilators and steroids. Plan to transition from IV Solu-Medrol to prednisone 40 mg daily today. The patient does have an extensive tobacco abuse history so there would be concern for underlying obstructive lung disease and/or asthma. Continue supplemental oxygen to maintain saturations at or above 90%. The patient would benefit from outpatient pulmonary workup after discharge. 3. Diabetes mellitus/ELLEN/hyperlipidemia/obesity/delayed presentation/anxiety/restless legs/history of fatty liver disease/iron deficiency anemia Complicates care, management, recovery and prognosis. Continue home medicationsas indicated. This note was generated with [employer] dictation software. It may contain incorrectwords, spelling, and punctuation that were not noted in checking the note beforesigning. Subjective Subjective The patient was seen and examined at the bedside this morning. Events from the last 24 hours have been reviewed. The patient is currently afebrile, hemodynamically stable and maintaining appropriate oxygen saturations on her home CPAP therapy. Previously, the patient was on 10 L/min high flow nasal cannula. Despite this, she does report feeling less short of breath with improvement in her cough. She is currently documented to be overall net +4.8 L for the hospitalization. White count has improved to 16,000. Objective Data Objective Data The patient's most recent lab work, culture data and imaging studies have all been personally reviewed. Surface echocardiogram demonstrated normal LV size and function with an ejection fraction of 55%. Respiratory viral panel was positive for RSV on February 27. COVID PCR was negative. Strep and urine Legionella antigens were negative. Vital Signs: Vital Signs Temp Pulse Resp BP Pulse Ox O2 Del Method O2 Flow Rate 98 F 67 20 H 118/70 98 CPAP 10 03/02/23 03:00 03/02/23 07:18 03/02/23 07:18 03/02/23 07:00 03/02/23 07:17 03/02/23 07:17 03/02/23 07:17 FiO2 10 03/01/23 23:00 Oxygen Flow Rate (L/min) 10 Oxygen Delivery Method CPAP Weight: 251 lb 1.704 oz Body Mass Index (BMI) 39.3 Intake & Output: Intake and Output for Last 24 Hours 02/28/23 03/01/23 03/02/23 23:59 23:59 23:59 Intake Total 1900 / 1900 1060 / 1060 Output Total 200 / 200 Balance 1900 / 1900 860 / 860 Lab / Micro Data 03/02/23 03:15 03/02/23 03:15 Labs: Laboratory Results - last 24 hr 02/28/23 16:42: POC Glucose 110 H 03/01/23 08:05: POC Glucose 121 H 03/01/23 12:03: POC Glucose 103 03/02/23 03:15: WBC 16.8 H, RBC 4.02 L, Hgb 11.9 L, Hct 37.6, MCV 93.5, MCH 29.6, MCHC 31.6 L, RDW Std Deviation 48.4 H, RDW Coeff of Kendra 14.1, Plt Count 379, MPV 10.4, Neut % (Auto) Not Reportable, Absolute Neuts (auto) 12.4 H, Absolute Lymphs (auto) 3.70, Total Counted 100, Neutrophils % (Manual) 71 H, Lymphocytes % (Manual) 22, Monocytes % (Manual) 2, Eosinophils % (Manual) 1, Myelocytes % 1 H, Diff Path Review July, Sodium 139, Potassium 4.3, [id number], Carbon Dioxide 27.0, Anion Gap 5, BUN 20 H, Creatinine 1.11 H, Estim Creat Clear Calc 66.17, Est GFR (MDRD) Af Amer 70, Est GFR (MDRD) Non-Af 58 L, BUN/Creatinine Ratio 18.0, Glucose 148 H, Calcium 8.4 L Micro: Microbiology 02/27/23 01:22 Blood Culture (Wb) - Right Forearm Blood Culture - Preliminary No growth in 48 hours. 02/27/23 01:12 Blood Culture (Wb) - Anticubital Left Blood Culture - Preliminary No growth in 48 hours. 02/27/23 15:24 Mucosa - Nasopharyngeal Coronavirus COVID-19 PCR - Final 02/27/23 02:55 Mucosa - Nasopharyngeal Respiratory Panel (PCR) - Final RSV B 02/27/23 03:25 Urine, Clean Catch Legionella Antigen - Final 02/27/23 03:25 Urine, Clean Catch Streptococcus pneumoniae Antigen (M - Final Rhythm Strip Rhythm Strip: Sinus Rhythm Rate: 82 Ectopy: None Physical Exam Const alert and no apparent distress General Appearance: cooperative HEENT normocephalic, head/scalp atraumatic and moist oral mucous membranes Eyes PERRL, EOMs intact bilaterally and conjunctivae normal Neck supple General: trachea midline Chest inspection of chest normal Resp normal respiratory effort Auscultation: Negative for rales, rhonchi or wheezes Cardio regular rate and regular rhythm GI normal to inspection, nondistended, normoactive bowel sounds Extremity no clubbing, cyanosis or edema Skin no rashes or lesions noted Neuro oriented x3, CN's II-XII intact bilaterally and moves all extremities Psych cooperative and affect normal Charges/Coding Visit Charges Inpatient E&M: 69488 Subs Hosp L2 03/02/23 0758 <Electronically signed by Dick Godwin DO> Cosigner Signature (if applicable): CC: ~ Signed [facility] Work Phone: 1(334) 442-346912-10-2023 Progress note Author Lupillo Jovel [facility] March 01, 2023 9:51am Note Date/Time March 01, 2023 7:10am [facility] Medical Records Department [address] [place] [address] Progress Note - Machining Technician 03/01/23705 MR#: [id number] Acct: [id number] Name: TRENA Rep #:[id number] : 1985 37 From: Lupillo Jovel MD PCP: KIMBERLEY Olivo Status:ADM I N Location: ICU CVICU20 1-1 Assessment & Plan Assessment/Plan (1) RSV (respiratory syncytial virus infection): (2) Acute hypoxemic respiratory failure: (3) Bilateral interstitial pneumonia: (4) Sepsis without acute organ dysfunction: QUALIFIERS: Sepsis type: sepsis due to unspecified organism Qualified Code(s): A41.9 - Sepsis, unspecified organism PLAN: Plan RECOMMENDATIONS: 1. Attempt high flow nasal cannula during the day. Encourage CPAP with sleep 2. Continue empiric antibiotics to complete a 5-day course 3. Continue scheduled bronchodilators 4. Continue sliding scale insulin 5. Walking oximetry prior to discharge 6. Possible transfer from the intensive care unit pending response to nasal cannula during the day 7. Outpatient pulmonary follow-up following discharge. IMPRESSIONS: 1. Sepsis secondary to bilateral pneumonia Patient with 3 SIRS criteria and has been noted to have fever. Clinical course is suggestive of a secondary bacterial infection with RSV as an initiating factor. Patient is still positive for RSV, but 1 would expect this to be improving given clinical course. Patient's creatinine was slightly elevated, but this appears to be close to her baseline. Unfortunately, patient is developing respiratory failure as evidence of endorgan damage. Patient has not required any pressors during hospitalization. Blood pressure has dropped slightly with antibiotics, suggesting a possible bacterial component, but cultures are negative to this point. Anticipate a 5-day course of antibiotics is likely sufficient as RSV may be leading to respiratory status. 2. Acute hypoxic respiratory failure Patient with significant bilateral infiltrates. Patient's oxygen requirements have significantly worsened over the last 12 to 24 hours. Patient has been initiated on steroids, bronchodilators and antibiotics. Cultures are currently pending. Patient does have a history of tracheostomy, but does not appear to have a history of stridor or upper airway obstruction. Patient does have an extensive smoking history, so there is concern about an underlying obstructive lung disease such as asthma or COPD. Patient is on empiric steroidsat this time, but this does complicate her recovery and prognosis. Likely wean steroids once patient starts to improve from an oxygenation standpoint. Patientwould benefit from outpatient workup including pulmonary function test. Patientwill need a walking oximetry prior to discharge. 3. Diabetes mellitus Patient reportedly has a history of type 2 diabetes mellitus that is underdiet control. Unfortunately, patient does require steroids secondary to problem#2. Patient will be placed on a sliding scale insulin at this time, but cannot exclude the need for basal insulin moving forward. 4. ELLEN/hyperlipidemia/obesity/delayed presentation/anxiety/restless legs/history of fatty liver disease/iron deficiency anemia Complicates care, management, recovery and prognosis. Patient is on her baseline medications. Patient will be continued on CPAP with sleep. Lower concern for BiPAP requirements given hospital course. Subjective Subjective Patient did okay over the last 24 hours. Patient continues to have a cough and was on Airvo during the day. Patient did tolerate her nasal CPAP overnight, buthad to have a 10 L bleed. Patient subjectively feels improved compared to yesterday. Patient has had some intermittent nausea, but associates this with the use of steroids. Objective Data Objective Data Vital Signs: Vital Signs Temp Pulse Resp BP Pulse Ox O2 Del Method O2 Flow Rate 36.9 C 69 28 H 107/71 94 CPAP 10 03/01/23 05:00 03/01/23 06:00 03/01/23 06:00 03/01/23 06:00 03/01/23 06:00 03/01/23 06:00 03/01/23 04:12 FiO2 76 03/01/23 01:55 Oxygen Flow Rate (L/min) 10 Oxygen Delivery Method CPAP Weight: 114.2 kg Body Mass Index (BMI) 39.4 Intake & Output: Intake and Output for Last 24 Hours 02/27/23 02/28/23 03/01/23 23:59 23:59 23:59 Intake Total 3810 / 4110 1900 / 1900 255 / 255 Output Total 1700 / 1700 Balance 2110 / 2410 1900 / 1900 255 / 255 Lab / Micro Data Attestation: I reviewed the patient's lab results. 03/01/23 05:35 03/01/23 05:35 Labs: Laboratory Results - last 24 hr 02/28/23 08:23: POC Glucose 144 H 02/28/23 20:58: POC Glucose 113 H 03/01/23 05:35: WBC 23.1 H, RBC 4.19 L, Hgb 12.3, Hct 38.1, MCV 90.9, MCH 29.4, MCHC 32.3, RDW Std Deviation 47.7 H, RDW Coeff of Kendra 14.2, Plt Count 358, MPV 10.3, Immature Gran % (Auto) 2.600 H, Neut % (Auto) 77.4 H, Lymph % (Auto) 17.7 L, [place] % (Auto) 1.5, Eos % (Auto) 0.2, Baso % (Auto) 0.6, Absolute Neuts (auto)17.9 H, Absolute Lymphs (auto) 4.10, Nucleated RBC % 0, Sodium 137, Potassium 4.2, Chloride 107, Carbon Dioxide 27.0, Anion Gap 3 L, BUN 20 H, Creatinine 1.16H, Estim Creat Clear Calc 63.32, Est GFR (MDRD) Af Amer 67, Est GFR (MDRD) Non-Af 55 L, BUN/Creatinine Ratio 17.2, Glucose 154 H, Calcium 8.9 Micro: Microbiology 02/27/23 15:24 Mucosa - Nasopharyngeal Coronavirus COVID-19 PCR - Final 02/27/23 02:55 Mucosa - Nasopharyngeal Respiratory Panel (PCR) - Final RSV B 02/27/23 03:25 Urine, Clean Catch Legionella Antigen - Final 02/27/23 03:25 Urine, Clean Catch Streptococcus pneumoniae Antigen (M - Final Rhythm Strip Rhythm Strip: Sinus Rhythm Rate: 82 Ectopy: None Physical Exam Const alert and oriented x3 Constitutional Narrative: On nasal CPAP during my evaluation. General Appearance: cooperative HEENT normocephalic, head/scalp atraumatic, hearing grossly normal bilaterally and moist oral mucous membranes Eyes PERRL, EOMs intact bilaterally and conjunctivae normal Eyes Narrative: Glasses in place Neck no lymphadenopathy and supple Lymph Lymphatic Narrative: Cervical lymphadenopathy appreciated Resp Resp Narrative: No stridor appreciated Effort and Inspection: Negative for tachypneic Auscultation: diminished lung sounds; Negative for rhonchi or wheezes Cardio regular rate, regular rhythm, S1 normal heart sound, S2 normal heart sound, no murmurs, no rub and no gallops GI normal to inspection, nondistended, normoactive bowel sounds Extremity normal to inspection, full ROM and no clubbing, cyanosis or edema Skin no rashes or lesions noted Neuro oriented x3, CN's II-XII intact bilaterally, moves all extremities and no focal motor deficits Psych Mood & Affect: anxious Charges/Coding Visit Charges Inpatient E&M: 63790 Subs Hosp L3 03/01/23 0951 <Electronically signed by Lupillo Jovel MD> Cosigner Signature (if applicable): CC: ~ Signed [facility] Work Phone: 1(156) 232-457612-10-2023 Progress note Author Asaf Bernal [facility] March 01, 2023 9:33am Note Date/Time March 01, 2023 7:13am [facility] Medical Records Department [address] [place] [address] Progress Note - Hospitalist 03/01/23 0713 MR#: [id number] Acct: [id number] Name: TRENAJune Rep #:[id number] : 1985 37 From: Asaf Bernal MD PCP: KIMBERLEY Olivo Status:ADM I N Location: ICU CVICU20 1- Reason for Visit Reason for Visit: Diagnoses Sepsis, unspecified organism (02/27/23) Other specified viral diseases (02/27/23) Interstitial pulmonary disease, unspecified (02/27/23) Acute respiratory failure with hypoxia (02/27/23) Acute bronchospasm (02/27/23) Subjective Subjective Patient seen WBC count remains elevated. Patient was on her CPAP at night and Airvo during the day. She requested resumption of her psychotropic medications. Did resume her Topamax, diazepam and Prozac. Objective Data Objective Data Vital Signs: Vital Signs Temp Pulse Resp BP Pulse Ox O2 Del Method O2 Flow Rate 98.5 F 69 26 H 105/68 97 CPAP 10 03/01/23 05:00 03/01/23 07:00 03/01/23 07:00 03/01/23 07:00 03/01/23 07:00 03/01/23 07:00 03/01/23 04:12 FiO2 76 03/01/23 01:55 Oxygen Flow Rate (L/min) 10 Oxygen Delivery Method CPAP Weight: 114.2 kg Body Mass Index (BMI) 39.4 Intake & Output: Intake and Output for Last 24 Hours 02/27/23 02/28/23 03/01/23 23:59 23:59 23:59 Intake Total 3810 / 4110 1900 / 1900 255 / 255 Output Total 1700 / 1700 Balance 2110 / 2410 1900 / 1900 255 / 255 Lab / Micro Data 03/01/23 05:35 03/01/23 05:35 Labs: Laboratory Results - last 24 hr 02/28/23 08:23: POC Glucose 144 H 02/28/23 20:58: POC Glucose 113 H 03/01/23 05:35: WBC 23.1 H, RBC 4.19 L, Hgb 12.3, Hct 38.1, MCV 90.9, MCH 29.4, MCHC 32.3, RDW Std Deviation 47.7 H, RDW Coeff of Kendra 14.2, Plt Count 358, MPV 10.3, Immature Gran % (Auto) 2.600 H, Neut % (Auto) 77.4 H, Lymph % (Auto) 17.7 L, [place] % (Auto) 1.5, Eos % (Auto) 0.2, Baso % (Auto) 0.6, Absolute Neuts (auto)17.9 H, Absolute Lymphs (auto) 4.10, Nucleated RBC % 0, Sodium 137, Potassium 4.2, Chloride 107, Carbon Dioxide 27.0, Anion Gap 3 L, BUN 20 H, Creatinine 1.16H, Estim Creat Clear Calc 63.32, Est GFR (MDRD) Af Amer 67, Est GFR (MDRD) Non-Af 55 L, BUN/Creatinine Ratio 17.2, Glucose 154 H, Calcium 8.9 Micro: Microbiology 02/27/23 15:24 Mucosa - Nasopharyngeal Coronavirus COVID-19 PCR - Final 02/27/23 02:55 Mucosa - Nasopharyngeal Respiratory Panel (PCR) - Final RSV B 02/27/23 03:25 Urine, Clean Catch Legionella Antigen - Final 02/27/23 03:25 Urine, Clean Catch Streptococcus pneumoniae Antigen (M - Final Rhythm Strip Rhythm Strip: Sinus Rhythm Rate: 82 Ectopy: None Physical Exam Narrative GENERAL: cooperative but tachypneic at rest HEENT: Atraumatic; normocephalic EYES; Anicteric, Normal Conjunctiva NECK; supple, normal thyroid, RESPIRATORY: Diminished to auscultation tachypneic at rest CARDIOVASCULAR: Regular S1 S2, tachycardic GI: soft, normoactive bowel sounds, : No Renal angle tenderness; EXTREMITIES: No edema, no clubbing, MUSCULOSKELETAL: no muscle wasting NEURO: Awake; no lateralizing signs. SKIN: No Rash PSYCH; Flat affect Assessment & Plan Assessment/Plan (1) RSV (respiratory syncytial virus infection): PLAN: Plan 37-year-old lady with recent diagnosis of RSV presented with shortness of breath. Imaging studies demonstrated bilateral pulmonary opacities patient was also found to have leukocytosis. Admitted to a monitored bed for subsequent management 1. Sepsis secondary to RSV infection with superimposed pneumonia ? Evidence of sepsis leukocytosis, tachypnea as well as evidence of endorgan respiratory failure acute hypoxic respiratory failure. ? 03/01/2023 patient WBC count remains elevated. Cultures pending so far negative to date except for being positive for RSV B 2. Recent RSV infection ? With suspected superimposed bacterial pneumonia. Patient admitted for symptomatic management in addition to antibiotic therapy with Rocephin and azithromycin in addition to supplemental oxygen 3. Acute hypoxic respiratory respiratory failure ? Secondary to RSV infection with superimposed bacterial pneumonia, asthma with acute exacerbation evidenced by patient being tachypneic with heart rate greaterthan 30, patient requiring 10 L flow of oxygen to maintain adequate saturation. Patient placed on supplemental oxygen consult placed to pulmonary medicine ? 02/28/2023 patient placed on Airvo ? 03/01/2023;Patient seen WBC count remains elevated. Patient was on her CPAP at night and Airvo during the day 4. Acute asthma exacerbation ? Per stated by patient's recent RSV infection manage bronchodilator treatments in addition to systemic steroids 5. Dyslipidemia -Patient is on statin therapy, continued at home dose 6. Hypertension - Blood pressure controlled, home medications continued with dose adjustment as needed 7. Class II obesity with BMI of 39.9 ? Complicating care weight loss advised 8. History of DVT ? Currently not any systemic anticoagulation 9. Nonalcoholic fatty liver disease ? Patient to follow-up with PCP for subsequent care 10. Depression with anxiety ? Did continue home meds 11. DVT prophylaxis - On enoxaparin Time spent in the patient's overall evaluation,decision-making process, review of diagnostic data, adjustment of management, discussion with other providers, nursing nursing and ancillary staff involved in patient's care documentation, 50Minutes . Charges/Coding Visit Charges Inpatient E&M: 28587 Subs Hosp L3 03/01/2333 <Electronically signed by Asaf Bernal MD> Cosigner Signature (if applicable): CC: ~ Signed [facility] Work Phone: 1(680) 822-455612-09-2023 Progress note Author Asaf Bernal [facility] February 28, 2023 10:11am Note Date/Time February 28, 2023 7 :45am [facility] Medical Records Department [address] [place] [address] Progress Note - Hospitalist 02/28/23 0742 MR#: [id number] Acct: [id number] Name: TRENAJune Rep #:[id number] : 1985 37 From: Asaf Bernal MD PCP: KIMBERLEY Olivo Status:ADM I N Location: ICU CVICU20 1-1 Reason for Visit Reason for Visit: Diagnoses Sepsis, unspecified organism (02/27/23) Other specified viral diseases (02/27/23) Interstitial pulmonary disease, unspecified (02/27/23) Acute respiratory failure with hypoxia (02/27/23) Acute bronchospasm (02/27/23) Subjective Subjective Patient seen remains tachypneic with rising WBC count patient was placed on Airvo Objective Data Objective Data Vital Signs: Vital Signs Temp Pulse Resp BP Pulse Ox O2 Del Method O2 Flow Rate 97.9 F 72 29 H 111/74 30 Airvo 50 02/28/23 04:00 02/28/23 07:00 02/28/23 07:00 02/28/23 07:00 02/28/23 07:00 02/28/23 07:00 02/28/23 07:00 FiO2 65 02/28/23 07:00 Oxygen Flow Rate (L/min) 50 Oxygen Delivery Method Airvo Weight: 116.3 kg Body Mass Index (BMI) 40.2 Intake & Output: Intake and Output for Last 24 Hours 02/26/23 02/27/23 02/28/23 23:59 23:59 23:59 Intake Total 3810 / 4110 500 / 500 Output Total 1700 / 1700 Balance 2110 / 2410 500 / 500 Lab / Micro Data 02/28/23 03:39 02/28/23 03:39 Labs: Laboratory Results - last 24 hr 02/27/23 06:30: MRSA (PCR) Negative 02/27/23 16:52: POC Glucose 147 H 02/27/23 20:37: POC Glucose 98 02/28/23 03:39: WBC 26.6 H, RBC 4.16 L, Hgb 12.2, Hct 38.2, MCV 91.8, MCH 29.3, MCHC 31.9 L, RDW Std Deviation 48.2 H, RDW Coeff of Kendra 14.3, Plt Count 305, MPV10.3, Immature Gran % (Auto) 1.500 H, Neut % (Auto) 84.5 H, Lymph % (Auto) 12.0 L, [place] % (Auto) 1.7, Eos % (Auto) 0.0, Baso % (Auto) 0.3, Absolute Neuts (auto)22.5 H, Absolute Lymphs (auto) 3.19, Nucleated RBC % 0, Differential Comment SCANNED, Sodium 137, Potassium 4.6, Chloride 110 H, Carbon Dioxide 22.0, Anion Gap 5, BUN 15, Creatinine 1.06 H, Estim Creat Clear Calc 69.29, Est GFR (MDRD) Af Amer 74, Est GFR (MDRD) Non-Af 61, BUN/Creatinine Ratio 14.2, Glucose 174 H, Calcium 8.8, Phosphorus 3.5, Magnesium 2.4, Total Bilirubin 0.40, Direct Bilirubin 0.17, AST 34, ALT 18, Alkaline Phosphatase 49, Total Protein 7.1, Albumin 2.7 L, Globulin 4.4 H Micro: Microbiology 02/27/23 15:24 Mucosa - Nasopharyngeal Coronavirus COVID-19 PCR - Final 02/27/23 02:55 Mucosa - Nasopharyngeal Respiratory Panel (PCR) - Final RSV B 02/27/23 03:25 Urine, Clean Catch Legionella Antigen - Final 02/27/23 03:25 Urine, Clean Catch Streptococcus pneumoniae Antigen (M - Final Radiography Diagnostic Testing: Radiology Impression Chest X-Ray 02/27/23 05:23 IMPRESSION: Progression/worsening of diffuse airspace opacifications in both lung aguiar without pleural effusions. This pattern of opacification can often be seen with Covid pneumonia. Follow-up recommended to assure resolution Electronically Signed: Junior Barcenas MD at 10:40 EST , Echocardiogram 02/27/23 10:45 Interpretation Summary The left ventricular ejection fraction is 55 %. Mildly dilated right ventricle. Mild global right ventricular systolic dysfunction. The study was technically difficult. Ordering Physician: Lupillo Jovel Performed By: Miko Del Castillo RCS Rhythm Strip Rhythm Strip: Sinus Rhythm Rate: 88 Ectopy: None Physical Exam Narrative GENERAL: cooperative but tachypneic at rest HEENT: Atraumatic; normocephalic EYES; Anicteric, Normal Conjunctiva NECK; supple, normal thyroid, RESPIRATORY: Diminished to auscultation tachypneic at rest CARDIOVASCULAR: Regular S1 S2, tachycardic GI: soft, normoactive bowel sounds, : No Renal angle tenderness; EXTREMITIES: No edema, no clubbing, MUSCULOSKELETAL: no muscle wasting NEURO: Awake; no lateralizing signs. SKIN: No Rash PSYCH; Flat affect Assessment & Plan Assessment/Plan (1) RSV (respiratory syncytial virus infection): PLAN: Plan 37-year-old lady with recent diagnosis of RSV presented with shortness of breath. Imaging studies demonstrated bilateral pulmonary opacities patient was also found to have leukocytosis. Admitted to a monitored bed for subsequent management 1. Sepsis secondary to RSV infection with superimposed pneumonia ? Evidence of sepsis leukocytosis, tachypnea as well as evidence of endorgan respiratory failure acute hypoxic respiratory failure 2. Recent RSV infection ? With suspected superimposed bacterial pneumonia. Patient admitted for symptomatic management in addition to antibiotic therapy with Rocephin and azithromycin in addition to supplemental oxygen 3. Acute hypoxic respiratory respiratory failure ? Secondary to RSV infection with superimposed bacterial pneumonia, asthma with acute exacerbation evidenced by patient being tachypneic with heart rate greaterthan 30, patient requiring 10 L flow of oxygen to maintain adequate saturation. Patient placed on supplemental oxygen consult placed to pulmonary medicine ? 02/28/2023 patient placed on Airvo 4. Acute asthma exacerbation ? Per stated by patient's recent RSV infection manage bronchodilator treatments in addition to systemic steroids 5. Dyslipidemia -Patient is on statin therapy, continued at home dose 6. Hypertension - Blood pressure controlled, home medications continued with dose adjustment as needed 7. Class II obesity with BMI of 39.9 ? Complicating care weight loss advised 8. History of DVT ? Currently not any systemic anticoagulation 9. Nonalcoholic fatty liver disease ? Patient to follow-up with PCP for subsequent care 10. Depression with anxiety ? Did continue home meds 11. DVT prophylaxis - On enoxaparin Time spent in the patient's overall evaluation,decision-making process, review of diagnostic data, adjustment of management, discussion with other providers, nursing nursing and ancillary staff involved in patient's care documentation, 50Minutes . Charges/Coding Visit Charges Inpatient E&M: 72965 Subs Hosp L3 02/28/23 1011 <Electronically signed by Asaf Bernal MD> Cosigner Signature (if applicable): CC: ~ Signed [facility] Work Phone: 1(245) 785-805012-09-2023 Progress note Author Lupillo Jovel [facility] February 28, 2023 9:45am Note Date/Time February 28, 2023 7 :41am [facility] Medical Records Department [address] [place] [address] Progress Note - Machining Technician 02/28/23 0737 MR#: [id number] Acct: [id number] Name: TRENAJune Rep #:[id number] : 1985 37 From: Lupillo Jovel MD PCP: KIMBERLEY Olivo Status:ADM I N Location: ICU CVICU20 1-1 Assessment & Plan Assessment/Plan (1) RSV (respiratory syncytial virus infection): (2) Acute hypoxemic respiratory failure: (3) Bilateral interstitial pneumonia: (4) Sepsis without acute organ dysfunction: QUALIFIERS: Sepsis type: sepsis due to unspecified organism Qualified Code(s): A41.9 - Sepsis, unspecified organism PLAN: Plan RECOMMENDATIONS: 1. Continue Airvo. Encourage CPAP with sleep 2. Continue empiric antibiotics pending cultures 3. Continue scheduled bronchodilators 4. Initiate sliding scale insulin 5. No vancomycin given MRSA swab negative IMPRESSIONS: 1. Sepsis secondary to bilateral pneumonia Patient with 3 SIRS criteria and has been noted to have fever. Clinical course is suggestive of a secondary bacterial infection with RSV as an initiating factor. Patient is still positive for RSV, but 1 would expect this to be improving given clinical course. Patient's creatinine is slightly elevated, but this appears to be close to her baseline. Unfortunately, patient is developing respiratory failure as evidence of endorgan damage. Patient's blood pressure has been doing well at this time, so we will hold off on any pressors. Blood pressure has dropped slightly with antibiotics, suggesting a possible bacterial component, but cultures are negative to this point. 2. Acute hypoxic respiratory failure Patient with significant bilateral infiltrates. Patient's oxygen requirements have significantly worsened over the last 12 to 24 hours. Patient has been initiated on steroids, bronchodilators and antibiotics. Cultures are currently pending. Patient does have a history of tracheostomy, but does not appear to have a history of stridor or upper airway obstruction. Patient does have an extensive smoking history, so there is concern about an underlying obstructive lung disease such as asthma or COPD. Patient is on empiric steroids at this time, but this does complicate her recovery and prognosis. Patient would benefit from outpatient workup including pulmonary function test. Patient will need a walking oximetry prior to discharge. 3. Diabetes mellitus Patient reportedly has a history of type 2 diabetes mellitus that is underdiet control. Unfortunately, patient does require steroids secondary to problem#2. Patient will be placed on a sliding scale insulin at this time, but cannot exclude the need for basal insulin moving forward. 4. ELLEN/hyperlipidemia/obesity/delayed presentation/anxiety/restless legs/history of fatty liver disease/iron deficiency anemia Complicates care, management, recovery and prognosis. Patient is on her baseline medications. Patient will be initiated on CPAP with sleep, but this may need to be transition to BiPAP given patient's current respiratory status. Subjective Subjective Patient did okay overnight. Patient did refuse CPAP despite reported complianceat home. Patient states she feels much improved, but is requiring 50% FiO2 on Airvo to maintain saturations. Patient was able to make it to the chair yesterday. Objective Data Objective Data Vital Signs: Vital Signs Temp Pulse Resp BP Pulse Ox O2 Del Method O2 Flow Rate 36.6 C 72 29 H 111/74 30 Airvo 50 02/28/23 04:00 02/28/23 07:00 02/28/23 07:00 02/28/23 07:00 02/28/23 07:00 02/28/23 07:00 02/28/23 07:00 FiO2 65 02/28/23 07:00 Oxygen Flow Rate (L/min) 50 Oxygen Delivery Method Airvo Weight: 116.3 kg Body Mass Index (BMI) 40.2 Intake & Output: Intake and Output for Last 24 Hours 02/26/23 02/27/23 02/28/23 23:59 23:59 23:59 Intake Total 3810 / 4110 500 / 500 Output Total 1700 / 1700 Balance 2110 / 2410 500 / 500 Lab / Micro Data Attestation: I reviewed the patient's lab results. 02/28/23 03:39 02/28/23 03:39 Labs: Laboratory Results - last 24 hr 02/27/23 06:30: MRSA (PCR) Negative 02/27/23 16:52: POC Glucose 147 H 02/27/23 20:37: POC Glucose 98 02/28/23 03:39: WBC 26.6 H, RBC 4.16 L, Hgb 12.2, Hct 38.2, MCV 91.8, MCH 29.3, MCHC 31.9 L, RDW Std Deviation 48.2 H, RDW Coeff of Kendra 14.3, Plt Count 305, MPV10.3, Immature Gran % (Auto) 1.500 H, Neut % (Auto) 84.5 H, Lymph % (Auto) 12.0 L, [place] % (Auto) 1.7, Eos % (Auto) 0.0, Baso % (Auto) 0.3, Absolute Neuts (auto)22.5 H, Absolute Lymphs (auto) 3.19, Nucleated RBC % 0, Differential Comment SCANNED, Sodium 137, Potassium 4.6, Chloride 110 H, Carbon Dioxide 22.0, Anion Gap 5, BUN 15, Creatinine 1.06 H, Estim Creat Clear Calc 69.29, Est GFR (MDRD) Af Amer 74, Est GFR (MDRD) Non-Af 61, BUN/Creatinine Ratio 14.2, Glucose 174 H, Calcium 8.8, Phosphorus 3.5, Magnesium 2.4, Total Bilirubin 0.40, Direct Bilirubin 0.17, AST 34, ALT 18, Alkaline Phosphatase 49, Total Protein 7.1, Albumin 2.7 L, Globulin 4.4 H Micro: Microbiology 02/27/23 15:24 Mucosa - Nasopharyngeal Coronavirus COVID-19 PCR - Final 02/27/23 02:55 Mucosa - Nasopharyngeal Respiratory Panel (PCR) - Final RSV B 02/27/23 03:25 Urine, Clean Catch Legionella Antigen - Final 02/27/23 03:25 Urine, Clean Catch Streptococcus pneumoniae Antigen (M - Final Radiography Diagnostic Testing: Radiology Impression Chest X-Ray 02/27/23 05:23 IMPRESSION: Progression/worsening of diffuse airspace opacifications in both lung aguiar without pleural effusions. This pattern of opacification can often be seen with Covid pneumonia. Follow-up recommended to assure resolution Electronically Signed: Junior Barcenas MD at 10:40 EST , Echocardiogram 02/27/23 10:45 Interpretation Summary The left ventricular ejection fraction is 55 %. Mildly dilated right ventricle. Mild global right ventricular systolic dysfunction. The study was technically difficult. Ordering Physician: Lupillo Jovel Performed By: Miko Del Castillo RCS Rhythm Strip Rhythm Strip: Sinus Rhythm Rate: 88 Ectopy: None Physical Exam Const alert and oriented x3 Constitutional Narrative: On Airvo during my evaluation General Appearance: cooperative HEENT normocephalic, head/scalp atraumatic, hearing grossly normal bilaterally and moist oral mucous membranes Eyes PERRL, EOMs intact bilaterally and conjunctivae normal Eyes Narrative: Glasses in place Neck no lymphadenopathy and supple Lymph Lymphatic Narrative: Cervical lymphadenopathy appreciated Resp Resp Narrative: No stridor appreciated Effort and Inspection: Negative for tachypneic Auscultation: rhonchi throughout, wheezes and diminished lung sounds Cardio regular rate, regular rhythm, S1 normal heart sound, S2 normal heart sound, no murmurs, no rub and no gallops GI normal to inspection, nondistended, normoactive bowel sounds Extremity normal to inspection, full ROM and no clubbing, cyanosis or edema Skin no rashes or lesions noted Neuro oriented x3, CN's II-XII intact bilaterally, moves all extremities and no focal motor deficits Psych Mood & Affect: anxious Charges/Coding Visit Charges Inpatient E&M: 58657 Subs Hosp L3 02/28/23 0945 <Electronically signed by Lupillo Jovel MD> Cosigner Signature (if applicable): CC: ~ Signed [facility] Work Phone: 1([phone]) [phone] Consult note Author Lupillo Jovel [facility] February 27, 2023 1:15pm Note Date/Time February 27, 2023 1 0:23am [facility] Medical Records Department [address] [place] [address] Consultation - Machining Technician 02/27/23 1008 MR#: [id number] Acct: [id number] Name: TRENAJune Rep #:[id number] : 1985 37 From: Lupillo Jovel MD PCP: Nallely Butler 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 Status:ADM I N Location: ICU CVICU20 1-1 Assessment & Plan Assessment/Plan (1) RSV (respiratory syncytial virus infection): (2) Acute hypoxemic respiratory failure: (3) Bilateral interstitial pneumonia: (4) Sepsis without acute organ dysfunction: QUALIFIERS: Sepsis type: sepsis due to unspecified organism Qualified Code(s): A41.9 - Sepsis, unspecified organism PLAN: Plan RECOMMENDATIONS: 1. Transition to Airvo. CPAP with sleep 2. Continue empiric antibiotics pending cultures 3. Initiate scheduled bronchodilators 4. Initiate sliding scale insulin 5. No waylon given MRSA swab negative IMPRESSIONS: 1. Sepsis secondary to bilateral pneumonia Patient with 3 SIRS criteria and has been noted to have fever. Clinical course is suggestive of a secondary bacterial infection with RSV as an initiating factor. Patient is still positive for RSV, but 1 would expect this to be improving given clinical course. Patient's creatinine is slightly elevated, but this appears to be close to her baseline. Unfortunately, patient is developing respiratory failure as evidence of endorgan damage. Patient's blood pressure has been doing well at this time, so we will hold off on any pressors. 2. Acute hypoxic respiratory failure Patient with significant bilateral infiltrates. Patient's oxygen requirements have significantly worsened over the last 12 to 24 hours. Patient has been initiated on steroids, bronchodilators and antibiotics. Cultures are currently pending. Patient does have a history of tracheostomy, but does not appear to have a history of stridor or upper airway obstruction. Patient does have an extensive smoking history, so there is concern about an underlying obstructive lung disease such as asthma or COPD. Patient is on steroids at thistime, but this does complicate her recovery and prognosis. Patient would benefit from outpatient workup including pulmonary function test. Patient will need a walking oximetry prior to discharge. 3. Diabetes mellitus Patient reportedly has a history of type 2 diabetes mellitus that is underdiet control. Unfortunately, patient does require steroids secondary to problem#2. Patient will be placed on a sliding scale insulin at this time, but cannot exclude the need for basal insulin moving forward. 4. ELLEN/hyperlipidemia/obesity/delayed presentation/anxiety/restless legs/history of fatty liver disease/iron deficiency anemia Complicates care, management, recovery and prognosis. Patient is on her baseline medications. Patient will be initiated on CPAP with sleep, but this may need to be transition to BiPAP given patient's current respiratory status. TIME: 32 minutes critical care time spent addressing patient's acute hypoxic respiratory failure, sepsis review of all data and collaboration with care team HPI Consult Data Date of Consult: 02/27/23 HPI Narrative Reason for Consultation: Respiratory failure HPI Narrative: MARTINA TRENA is a 37 F, with past medical history listed below, who presents [facility] on 02/26/2023 secondary to approximately 1 week of shortness of breath, cough and wheezing that is progressing. Patient reportedly had been diagnosed with RSV a week ago and was using conservative therapy. Patient does have a significant smoking history despite young age. Patient stated that she had some rhinorrhea, postnasal drip and sore throat. Patient did have a cough productive of green to yellow sputum. Patient had denied any dysuria, frequency, urgency or hematuria. Patient did have myalgias. Patient reportedly has had issues with a rash with amoxicillin previously. Patient doesuse albuterol as needed, but no daily inhaler therapy. In the ER, patient was noted to have a temperature of 99.7 ?F and normotensive. Patient was also noted to be tachypneic at 34 breaths/min and had to be placed on supplemental oxygen to maintain saturations. Laboratory workup showed a white blood cell count of 19.5 with hemoglobin of 13.6 and platelets of 265. Chemistry showed a creatinine of 1.42 with a bicarbonate of 21 and glucose of 114. Chest x-ray showed right lower lobe infiltrate. Given concerns for superimposed bacterial infection, patient was placed on antibiotics, Solu-Medroland bronchodilators. Patient was admitted to the intensive care unit for further evaluation. Since being in the intensive care unit, patient's oxygen requirements have significantly worsened. Patient did have a fever of 38.1 ?C overnight and oxygen requirements have increased to 10 L/min. Chest x-ray does show progression of bilateral infiltrates. Patient's blood sugars have also been elevated at over 200. Patient reports initiation of smoking in her teens. Patient does have a historyof previous respiratory failure requiring tracheostomy for 2 to 3 months. Patient states this was discontinued. Patient does not follow with a rent collector at baseline. Patient is not on any maintenance inhalers. Patient is unaware of any previous PFT. Patient does not use supplemental oxygen at baseline. Patient does report a history of ELLEN and uses CPAP of 7 cm of water. Patient reportedly is compliant with this therapy. Review of systems otherwise negative from a constitutional, HEENT, respiratory, cardiovascular, GI, genitourinary, musculoskeletal, skin, neurologic, psychiatric and hematologic system unless stated above. [facility] Medical History DVT (deep venous thrombosis) Fatty liver Gallbladder problem Leukocytosis Type 2 diabetes mellitus Home Medications albuterol sulfate 90 mcg/actuation aerosol inhaler (Ventolin HFA) 2 puff IH 4X/DAY PRN PRN Allergies 06/17/18 [History Last Taken Unknown] ferrous sulfate 325 mg (65 mg iron) tablet 325 mg PO DAILY 12/03/18 [History Last Taken Unknown] metoprolol tartrate 25 mg tablet 12.5 mg PO BID 12/03/18 [History Last Taken Unknown] ondansetron HCl 8 mg tablet 8 mg PO Q8H PRN PRN Nausea 03/29/20 [History Last Taken Unknown] atorvastatin 40 mg tablet (Lipitor) 40 mg PO QHS 05/15/21 [History Last Taken Unknown] cholecalciferol (vitamin D3) 1,250 mcg (50,000 unit) capsule 1,250 mcg PO QWEEK 05/15/21 [History Last Taken Unknown] fenofibrate nanocrystallized 145 mg tablet (Tricor) 145 mg PO DAILY 05/15/21 [History Last Taken Unknown] gabapentin 100 mg capsule 100 mg PO DAILY PRN 05/15/21 [History Last Taken Unknown] gabapentin 400 mg capsule 400 mg PO 4X/DAY 05/15/21 [History Last Taken Unknown] lorazepam 0.5 mg tablet (Ativan) 0.5 mg PO DAILY PRN 05/15/21 [History Last Taken Unknown] magnesium oxide 400 mg PO DAILY 05/15/21 [History Last Taken Unknown] quetiapine 50 mg tablet (Seroquel) 50 mg PO QHS 05/15/21 [History Last Taken Unknown] riboflavin (vitamin B2) 400 mg tablet 400 mg PO DAILY 05/15/21 [History Last Taken Unknown] Allergy/AdvReac Type Severity Reaction Status Date / Time Bleach (Sodium Hypochlorite) Allergy Hives Verified 05/17/21 07:19 heparin Allergy Other Verified 05/17/21 07:19 amoxicillin [Amoxicillin] AdvReac Rash Verified 05/17/21 07:19 citalopram hydrobromide AdvReac Mood Verified 05/17/21 07:19 [From Celexa] Family History Mother Diabetes Hypertension Asthma Sister Prediabetes Grandmother Kidney failure maternal Surgical History H/O dilation and curettage H/O tubal ligation History of partial hysterectomy Social History household members: significant other and children Smoking Status: Current every day smoker tobacco type: cigarettes substance use type: does not use ROS ROS Narrative See HPI Physical Exam Const alert and oriented x3 Constitutional Narrative: Patient is tachypneic with noted conversational dyspnea. Patient's mentation appears to be slightly improved compared to presentation General Appearance: cooperative HEENT normocephalic, head/scalp atraumatic, hearing grossly normal bilaterally and moist oral mucous membranes HEENT Narrative: Crowded posterior pharynx Eyes PERRL, EOMs intact bilaterally and conjunctivae normal Eyes Narrative: Glasses in place Neck no lymphadenopathy and supple Lymph Lymphatic Narrative: Cervical lymphadenopathy appreciated Resp Resp Narrative: No stridor appreciated Effort and Inspection: tachypneic Auscultation: rhonchi throughout, wheezes and diminished lung sounds Cardio regular rate, regular rhythm, S1 normal heart sound, S2 normal heart sound, no murmurs, no rub and no gallops GI normal to inspection, nondistended, normoactive bowel sounds Extremity normal to inspection, full ROM and no clubbing, cyanosis or edema Skin no rashes or lesions noted Neuro oriented x3, CN's II-XII intact bilaterally, moves all extremities and no focal motor deficits Psych Mood & Affect: anxious Medical Records Data Attestation: I reviewed the patient's medical records Lab / Micro Data Attestation: I reviewed the patient's lab results. 02/27/23 04:05 02/27/23 04:05 Labs: Laboratory Results - last 24 hr 02/26/23 22:55: WBC 19.5 H, RBC 4.62, Hgb 13.6, Hct 41.4, MCV 89.6, MCH 29.4, MCHC 32.9, RDW Std Deviation 45.1 H, RDW Coeff of Kendra 13.8, Plt Count 265, MPV 10.4, Immature Gran % (Auto) 0.800, Neut % (Auto) 69.2, Lymph % (Auto) 25.6, [place] % (Auto) 3.4, Eos % (Auto) 0.7, Baso % (Auto) 0.3, Absolute Neuts (auto) 13.5 H, Absolute Lymphs (auto) 4.99 H, Nucleated RBC % 0, Sodium 136, Potassium 3.7, Chloride 107, Carbon Dioxide 21.0, Anion Gap 8, BUN 19 H, Creatinine 1.42 H, Estim Creat Clear Calc 51.72, Est GFR (MDRD) Af Amer 53 L, Est GFR (MDRD) Non-Af 44 L, BUN/Creatinine Ratio 13.4, Glucose 114 H, Calcium 8.4 L 02/27/23 01:12: Lactic Acid 1.5 02/27/23 04:05: WBC 22.4 H, RBC 4.08 L, Hgb 12.1, Hct 37.7, MCV 92.4, MCH 29.7, MCHC 32.1, RDW Std Deviation 47.1 H, RDW Coeff of Kendra 13.8, Plt Count 270, MPV 10.4, Immature Gran % (Auto) 0.600, Neut % (Auto) 88.5 H, Lymph % (Auto) 9.4 L, [place] % (Auto) 1.3, Eos % (Auto) 0.0, Baso % (Auto) 0.2, Absolute Neuts (auto) 19.8 H, Absolute Lymphs (auto) 2.11, Nucleated RBC % 0, Sodium 137, Potassium 3.5, Chloride 109 H, Carbon Dioxide 19.0 L, Anion Gap 9, BUN 16, Creatinine 1.42H, Estim Creat Clear Calc 51.72, Est GFR (MDRD) Af Amer 53 L, Est GFR (MDRD) Non-Af 44 L, BUN/Creatinine Ratio 11.3, Glucose 223 H, Calcium 7.9 L, Total Bilirubin 0.30, AST 34, ALT 18, Alkaline Phosphatase 46, Total Protein 6.5, Albumin 2.6 L, Globulin 3.9, Albumin/Globulin Ratio 0.7 L, Triglycerides 210 H, Cholesterol 129, LDL Cholesterol 73, VLDL Cholesterol 42 H, HDL Cholesterol 14 L, TSH 0.55 02/27/23 06:30: MRSA (PCR) Negative Micro: Microbiology 02/27/23 02:55 Mucosa - Nasopharyngeal Respiratory Panel (PCR) - Final RSV B 02/27/23 03:25 Urine, Clean Catch Legionella Antigen - Final 02/27/23 03:25 Urine, Clean Catch Streptococcus pneumoniae Antigen (M - Final ABG Data ABG results: ABG 02/27/23 01:28 Specimen Type ART Sample Site L Radial pH 7.44 Bicarbonate Actual 18.5 L Total CO2 19 Base Excess -6 L O2 Saturation 91 L O2 % 2.0 ABG pCO2 27.0 L ABG pO2 58 L Homero Test Positive O2 Delivery Device Cannula Vent Mode Not entered Attestation: I personally reviewed and interpreted this ABG as follows: (Partially compensated metabolic acidosis with increased AA gradient) Rhythm Strip Rhythm Strip: Sinus Rhythm Rate: 88 Ectopy: None Imagaing Radiology Impression Chest X-Ray 02/26/23 00:08 IMPRESSION: Bilateral pulmonary opacities concerning for infection. Electronically Signed: Terence Braxton MD at 0:45 EST , Charges/Coding Procedures Hospitalists Procedures: 65897 Critial Care 1st Hr 02/27/23 1315 <Electronically signed by Lupillo Jovel MD> Cosigner Signature (if applicable): CC: KIMBERLEY De; KIMBELREY Butler; Dr. Lupillo Jovel MD; Dr. Asaf Johnston DO; Dr. Dick Godwin DO; Dr. Katerina Ruiz MD; Dr. Hari Hall MD~ Signed [facility] Work Phone: 1(440) 232-991312-08-2023 Progress note Author Asaf Bernal [facility] February 27, 2023 10:56am Note Date/Time February 27, 2023 7 :38am [facility] Medical Records Department [address] [place] [address] Progress Note - Hospitalist 02/27/23 0728 MR#: [id number] Acct: [id number] Name: TRENAJune Rep #:[id number] : 1985 37 From: Asaf Bernal MD PCP: KIMBERLEY Olivo Status:ADM I N Location: [facility] Reason for Visit Reason for Visit: Diagnoses Sepsis, unspecified organism (02/27/23) Other specified viral diseases (02/27/23) Interstitial pulmonary disease, unspecified (02/27/23) Acute respiratory failure with hypoxia (02/27/23) Acute bronchospasm (02/27/23) Subjective Subjective 37-year-old lady with recent diagnosis of RSV presented with shortness of breath. Imaging studies demonstrated bilateral pulmonary opacities patient was also found to have leukocytosis. Admitted to a monitored bed for subsequent manage Objective Data Objective Data Vital Signs: Vital Signs Temp Pulse Resp BP Pulse Ox O2 Del Method O2 Flow Rate 97.3 F L 91 29 H 113/73 96 High Flow 10 02/27/23 02:35 02/27/23 07:18 02/27/23 07:18 02/27/23 07:00 02/27/23 07:18 02/27/23 07:18 02/27/23 07:18 Oxygen Flow Rate (L/min) 10 Oxygen Delivery Method High Flow Weight: 115.7 kg Body Mass Index (BMI) 39.9 Intake & Output: Intake and Output for Last 24 Hours 02/25/23 02/26/23 02/27/23 23:59 23:59 23:59 Intake Total 3505 / 3505 Output Total 1400 / 1400 Balance 2105 / 2105 Lab / Micro Data 02/27/23 04:05 02/27/23 04:05 Labs: Laboratory Results - last 24 hr 02/26/23 22:55: WBC 19.5 H, RBC 4.62, Hgb 13.6, Hct 41.4, MCV 89.6, MCH 29.4, MCHC 32.9, RDW Std Deviation 45.1 H, RDW Coeff of Kendra 13.8, Plt Count 265, MPV 10.4, Immature Gran % (Auto) 0.800, Neut % (Auto) 69.2, Lymph % (Auto) 25.6, [place] % (Auto) 3.4, Eos % (Auto) 0.7, Baso % (Auto) 0.3, Absolute Neuts (auto) 13.5 H, Absolute Lymphs (auto) 4.99 H, Nucleated RBC % 0, Sodium 136, Potassium 3.7, Chloride 107, Carbon Dioxide 21.0, Anion Gap 8, BUN 19 H, Creatinine 1.42 H, Estim Creat Clear Calc 51.72, Est GFR (MDRD) Af Amer 53 L, Est GFR (MDRD) Non-Af 44 L, BUN/Creatinine Ratio 13.4, Glucose 114 H, Calcium 8.4 L 02/27/23 01:12: Lactic Acid 1.5 02/27/23 04:05: WBC 22.4 H, RBC 4.08 L, Hgb 12.1, Hct 37.7, MCV 92.4, MCH 29.7, MCHC 32.1, RDW Std Deviation 47.1 H, RDW Coeff of Kendra 13.8, Plt Count 270, MPV 10.4, Immature Gran % (Auto) 0.600, Neut % (Auto) 88.5 H, Lymph % (Auto) 9.4 L, [place] % (Auto) 1.3, Eos % (Auto) 0.0, Baso % (Auto) 0.2, Absolute Neuts (auto) 19.8 H, Absolute Lymphs (auto) 2.11, Nucleated RBC % 0, Sodium 137, Potassium 3.5, Chloride 109 H, Carbon Dioxide 19.0 L, Anion Gap 9, BUN 16, Creatinine 1.42H, Estim Creat Clear Calc 51.72, Est GFR (MDRD) Af Amer 53 L, Est GFR (MDRD) Non-Af 44 L, BUN/Creatinine Ratio 11.3, Glucose 223 H, Calcium 7.9 L, Total Bilirubin 0.30, AST 34, ALT 18, Alkaline Phosphatase 46, Total Protein 6.5, Albumin 2.6 L, Globulin 3.9, Albumin/Globulin Ratio 0.7 L, Triglycerides 210 H, Cholesterol 129, LDL Cholesterol 73, VLDL Cholesterol 42 H, HDL Cholesterol 14 L, TSH 0.55 Micro: Microbiology 02/27/23 02:55 Mucosa - Nasopharyngeal Respiratory Panel (PCR) - Final RSV B 02/27/23 03:25 Urine, Clean Catch Legionella Antigen - Final 02/27/23 03:25 Urine, Clean Catch Streptococcus pneumoniae Antigen (M - Final ABG Data ABG results: ABG 02/27/23 01:28 Specimen Type ART Sample Site L Radial pH 7.44 Bicarbonate Actual 18.5 L Total CO2 19 Base Excess -6 L O2 Saturation 91 L O2 % 2.0 ABG pCO2 27.0 L ABG pO2 58 L Homero Test Positive O2 Delivery Device Cannula Vent Mode Not entered Radiography Diagnostic Testing: Radiology Impression Chest X-Ray 02/26/23 00:08 IMPRESSION: Bilateral pulmonary opacities concerning for infection. Electronically Signed: Terence Braxton MD at 0:45 EST , Physical Exam Narrative GENERAL: cooperative but tachypneic at rest HEENT: Atraumatic; normocephalic EYES; Anicteric, Normal Conjunctiva NECK; supple, normal thyroid, RESPIRATORY: Diminished to auscultation tachypneic at rest CARDIOVASCULAR: Regular S1 S2, tachycardic GI: soft, normoactive bowel sounds, : No Renal angle tenderness; EXTREMITIES: No edema, no clubbing, MUSCULOSKELETAL: no muscle wasting NEURO: Awake; no lateralizing signs. SKIN: No Rash PSYCH; Flat affect Assessment & Plan Assessment/Plan (1) RSV (respiratory syncytial virus infection): PLAN: Plan 37-year-old lady with recent diagnosis of RSV presented with shortness of breath. Imaging studies demonstrated bilateral pulmonary opacities patient was also found to have leukocytosis. Admitted to a monitored bed for subsequent management 1. Sepsis secondary to RSV infection with superimposed pneumonia ? Evidence of sepsis leukocytosis, tachypnea as well as evidence of endorgan respiratory failure acute hypoxic respiratory failure 2. Recent RSV infection ? With suspected superimposed bacterial pneumonia. Patient admitted for symptomatic management in addition to antibiotic therapy with Rocephin and azithromycin in addition to supplemental oxygen 3. Acute hypoxic respiratory respiratory failure ? Secondary to RSV infection with superimposed bacterial pneumonia, asthma with acute exacerbation evidenced by patient being tachypneic with heart rate greaterthan 30, patient requiring 10 L flow of oxygen to maintain adequate saturation. Patient placed on supplemental oxygen consult placed to pulmonary medicine 4. Acute asthma exacerbation ? Per stated by patient's recent RSV infection manage bronchodilator treatments in addition to systemic steroids 5. Dyslipidemia -Patient is on statin therapy, continued at home dose 6. Hypertension - Blood pressure controlled, home medications continued with dose adjustment as needed 7. Class II obesity with BMI of 39.9 ? Complicating care weight loss advised 8. History of DVT ? Currently not any systemic anticoagulation 9. Nonalcoholic fatty liver disease ? Patient to follow-up with PCP for subsequent care 10. Depression with anxiety ? Did continue home meds 11. DVT prophylaxis - On enoxaparin Time spent in the patient's overall evaluation,decision-making process, review of diagnostic data, adjustment of management, discussion with other providers, nursing nursing and ancillary staff involved in patient's care documentation, 50 Minutes . Charges/Coding Visit Charges Inpatient E&M: 72888 Subs Hosp 02/27/23 1056 <Electronically signed by Asaf Bernal MD> Cosigner Signature (if applicable): CC: ~ Signed [facility] Work Phone: 1(207) 223-203412-08-2023 History and physical note Author Asaf Perez [facility] February 27, 2023 6:19am Note Date/Time February 27, 2023 1 2:53am [facility] Medical Records Department [address] [place] [id number] H&P Exam - Hospitalist 02/27/23 0033 MR#: [id number] Acct: [id number] Name: TRENAJune Rep #:[id number] : 1985 37 From: Asaf Burks DO PCP: KIMBERLEY Olivo Status:ADM I N Location: ICU CVICU20 1-1 HPI - General General Date of Admission: 02/27/23 Date of Service: 02/27/23 Chief Complaint: Shortness of breath and wheezing HPI Narrative MARTINA ALBRECHT is a 37 F with past medical history of essential hypertension, hyperlipidemia, diabetes mellitus type 2; of unknown control, obesity with a BMIof 36 this admission, history of DVT, history of fatty liver disease, restless leg syndrome, iron deficiency anemia, depression with anxiety, ongoing tobacco abuse, history of pneumonia complicated by sepsis with septic shock requiring intubation and tracheostomy after being life flighted from here to a tertiary care hospital with a protracted and [place] hospital course (2020) and recently diagnosed acute RSV infection about 1 week ago who presents to [facility] ER complaining of shortness of breath and wheezing. Ms. Albrecht reports her symptoms began approximately 1 week prior to admission with the abrupt onset of a viral upper respiratory infection. Once she was diagnosed with RSV she was was not able to smoke her typical 1 pack/day and was down to only a few cigarettes. She admits to associated fever, chills, rhinorrhea postnasal drainage, sore throat and chest congestion. She also admits to a congested cough productive of yellowish sputum along with myalgias, arthralgias and malaise. She denies a history of nausea, vomiting, diarrhea, dysuria or rash. She verbally denies a history of diabetes but her chart shows she has been diagnosed with diabetes in the past. In the ER her x-rays were positive for multifocal pneumonia (with right middle lobe and left lower lobe infiltrates) that is likely a bacterial superinfection complicating her subacuteRSV infection with leukocytosis of 19.5 present on admission in the unfortunate setting of ongoing tobacco abuse with clinical evidence of acute hypoxic respiratory insufficiency with a respiratory rate of approximately 30-35 breaths/min and oxygen saturations of 86% recorded in the ER with 3 positive SIRS criteria present on admission so lactate and blood cultures were ordered for suspected community- acquired pneumonia with clinical evidence of early sepsis. She was then admitted to the general medical floor for ongoing care [facility] that is expected to be greater than 48 hours. [facility] Medical History DVT (deep venous thrombosis) Fatty liver Gallbladder problem Leukocytosis Type 2 diabetes mellitus Home Medications albuterol sulfate 90 mcg/actuation aerosol inhaler (Ventolin HFA) 2 puff IH 4X/DAY PRN PRN Allergies 06/17/18 [History Last Taken Unknown] ferrous sulfate 325 mg (65 mg iron) tablet 325 mg PO DAILY 12/03/18 [History Last Taken Unknown] metoprolol tartrate 25 mg tablet 12.5 mg PO BID 12/03/18 [History Last Taken Unknown] ondansetron HCl 8 mg tablet 8 mg PO Q8H PRN PRN Nausea 03/29/20 [History Last Taken Unknown] atorvastatin 40 mg tablet (Lipitor) 40 mg PO QHS 05/15/21 [History Last Taken Unknown] cholecalciferol (vitamin D3) 1,250 mcg (50,000 unit) capsule 1,250 mcg PO QWEEK 05/15/21 [History Last Taken Unknown] fenofibrate nanocrystallized 145 mg tablet (Tricor) 145 mg PO DAILY 05/15/21 [History Last Taken Unknown] gabapentin 100 mg capsule 100 mg PO DAILY PRN 05/15/21 [History Last Taken Unknown] gabapentin 400 mg capsule 400 mg PO 4X/DAY 05/15/21 [History Last Taken Unknown] lorazepam 0.5 mg tablet (Ativan) 0.5 mg PO DAILY PRN 05/15/21 [History Last Taken Unknown] magnesium oxide 400 mg PO DAILY 05/15/21 [History Last Taken Unknown] quetiapine 50 mg tablet (Seroquel) 50 mg PO QHS 05/15/21 [History Last Taken Unknown] riboflavin (vitamin B2) 400 mg tablet 400 mg PO DAILY 05/15/21 [History Last Taken Unknown] Allergy/AdvReac Type Severity Reaction Status Date / Time Bleach (Sodium Hypochlorite) Allergy Hives Verified 05/17/21 07:19 heparin Allergy Other Verified 05/17/21 07:19 amoxicillin [Amoxicillin] AdvReac Rash Verified 05/17/21 07:19 citalopram hydrobromide AdvReac Mood Verified 05/17/21 07:19 [From Celexa] Family History Mother Diabetes Hypertension Asthma Sister Prediabetes Grandmother Kidney failure maternal Surgical History H/O dilation and curettage H/O tubal ligation History of partial hysterectomy Social History household members: significant other and children Smoking Status: Current every day smoker tobacco type: cigarettes substance use type: does not use ROS ROS Narrative Review of systems: General: Patient admits to fevers, chills, sweats and malaise. HENT: Patient admits to rhinorrhea and sore throat. EYES: Denies changes in vision Resp: Admits to shortness of breath and cough productive of yellowish sputum. Cardiac: Denies chest pain GI: Denies abdominal pain, denies changes in bowel, had some nausea : Patient admits to decreased urinary output but denies dysuria, hematuria or urinary frequency. Extremity: Denies swelling Musculoskeletal: Patient admits to arthralgias and myalgias. Neuro: Patient admits to generalized tension type headache. Heme: Denies any bleeding or bruising Skin: Denies rashes Psychiatric: Patient is anxious about the declining state of her health and potentially repeating her previous multifocal pneumonia with sepsis admission from 2020 Endocrine: No polyuria The rest of the 14 point ROS was negative except for positives in HPI. Vital Signs Vital Signs Vital Signs: 02/26/23 22:33 02/26/23 22:52 02/26/23 22:52 Temperature 97.9 F 99.7 F H Temperature Source Temporal Oral Pulse Rate 95 94 Respiratory Rate 19 H 24 H Respiratory Effort Respiratory Depth Respiratory Pattern Blood Pressure 126/94 H 165/96 H Blood Pressure Mean 104 119 Pulse Ox 94 86 93 Oxygen Delivery Method Room Air Room Air Room Air Oxygen Flow Rate (L/min) 2 02/26/23 23:23 02/26/23 22:56 Temperature Temperature Source Pulse Rate 111 H Respiratory Rate 34 H Respiratory Effort Short of Breath Labored Accessory Muscle Use Respiratory Depth Shallow Respiratory Pattern Tachypnea Tachypnea Blood Pressure Blood Pressure Mean Pulse Ox Oxygen Delivery Method Room Air Oxygen Flow Rate (L/min) Weight Weight: 230 lb Body Mass Index (BMI) 36.0 Physical Exam Const alert and oriented x3 Constitutional Narrative: Patient is tachypneic breathing 30+ times per minute with obvious anxiety and [id number] lethargy. General Appearance: cooperative Orientation / Consciousness: lethargic HEENT normocephalic, head/scalp atraumatic, hearing grossly normal bilaterally and moist oral mucous membranes Eyes PERRL, EOMs intact bilaterally and conjunctivae normal Neck no lymphadenopathy and supple Resp Resp Narrative: Diminished breath sounds throughout with scattered rhonchi and wheezes. She also was noted to have prolonged expiratory phase. Cardio regular rate and regular rhythm GI normal to inspection, nondistended, normoactive bowel sounds, soft to palpation,non-tender and non-distended GI Narrative: Obese. Extremity normal to inspection, full ROM and no clubbing, cyanosis or edema Skin Skin Narrative: Patient has no evidence of rash at this time. Neuro oriented x3, CN's II-XII intact bilaterally, moves all extremities and no focal motor deficits Sensorium / Orientation: awake, alert, oriented to person, oriented to place andoriented to time Speech: speech normal Motor Exam: strength 5/5 throughout Psych Mood & Affect: anxious Results Medical Records Data Attestation: I reviewed the patient's medical records Lab / Micro Data Attestation: I reviewed the patient's lab results. 02/27/23 04:05 02/27/23 04:05 Labs: Laboratory Results - last 24 hr 02/26/23 22:55: WBC 19.5 H, RBC 4.62, Hgb 13.6, Hct 41.4, MCV 89.6, MCH 29.4, MCHC 32.9, RDW Std Deviation 45.1 H, RDW Coeff of Kendra 13.8, Plt Count 265, MPV 10.4, Immature Gran % (Auto) 0.800, Neut % (Auto) 69.2, Lymph % (Auto) 25.6, [place] % (Auto) 3.4, Eos % (Auto) 0.7, Baso % (Auto) 0.3, Absolute Neuts (auto) 13.5 H, Absolute Lymphs (auto) 4.99 H, Nucleated RBC % 0, Sodium 136, Potassium 3.7, Chloride 107, Carbon Dioxide 21.0, Anion Gap 8, BUN 19 H, Creatinine 1.42 H, Estim Creat Clear Calc 51.72, Est GFR (MDRD) Af Amer 53 L, Est GFR (MDRD) Non-Af 44 L, BUN/Creatinine Ratio 13.4, Glucose 114 H, Calcium 8.4 L Assessment & Plan Assessment/Plan (1) Sepsis without acute organ dysfunction: QUALIFIERS: Sepsis type: sepsis due to unspecified organism Qualified Code(s): A41.9 - Sepsis, unspecified organism (2) Bilateral interstitial pneumonia: (3) RSV (respiratory syncytial virus infection): (4) Acute bronchospasm: (5) Acute hypoxemic respiratory failure: PLAN: Plan 1. Sepsis due to multifocal bacterial pneumonia superinfection in the setting of subacute RSV pneumonitis and ongoing tobacco abuse - Admit to ICU for treatment under the sepsis protocol on contact and droplet precautions. Patientresponded well to fluid bolus in the ER along with IV Rocephin and IV azithromycin plus nebulizer treatments. We will await culture and sensitivity data to potentially narrow antibiotic spectrum. Serial as lactates to ensure positive response to treatment regimen. Give scheduled Mucinex to mobilize secretions. Give Tylenol as needed pain or fever. Patient was very strongly encouraged to quit smoking with nicotine patch offered to control cravings. 2. Acute exacerbation of asthma causing severe persistent bronchospasm complicating #1 - Continue IV Solu-Medrol along with scheduled and as needed nebulizer treatments. 3. Acute hypoxic respiratory insufficiency arising from #1 & #2 - Wean supplemental oxygen as tolerated. 4. History of pneumonia complicated by sepsis with septic shock requiring intubation and tracheostomy after being life flighted from here to a tertiary care hospital with a protracted and [place] hospital course (2020) causing significant anxiety about a potential repeat of a dark chapter of her medical history - She was strongly encouraged to come to the hospital and seek medical attention before she becomes critically ill in the future to minimize the risk of potential sepsis and respiratory failure. Her fianc? also was educated and encouraged to help her to seek medical attention sooner rather than later in thefuture. 5. Essential hypertension - Hold scheduled antihypertensives in light of #1. Give IV hydralazine as needed for systolic blood pressure greater than 160 mmHg. 6. Hyperlipidemia - Resume statin and check lipid profile this admission. 7. Diabetes mellitus type 2; of unknown control - ADA diet. Fingerstick blood sugars before every meal and at bedtime plus sliding scale insulin. Check hemoglobin A1c to objectively evaluate quality of diabetic control. 8. Obesity with a BMI of 36 this admission - Weight loss will be recommended. Check TSH. 9. History of DVT - Noted. 10. History of fatty liver disease - Stable. 11. Restless leg syndrome - Continue Requip as previous. 12. Iron deficiency anemia - Resume iron supplementation. 13. Depression with anxiety - Continue current regimen plus give prn Xanax for breakthrough symptoms. 14. DVT prophylaxis - Lovenox 40 mg sq daily plus SCD's. Total time: Approximately 75 minutes. Sepsis Attestation Sepsis Alert: Yes Sepsis Attestation: Agree w/Sepsis Date exam was performed: 02/27/23 Time exam was performed: 00:35 Possible Source of Sepsis: Pulmonary Sepsis Organ Dysfunction Criteria Present: Lactic Acid > 2 mmol/L Fluid Resuscitation Fluid resuscitation indicated?: Yes Fluid Resuscitation ordered: 30 ml/kg fluid bolus ordered Amount of fluid ordered: 3 Sepsis Note Date exam was performed: 02/27/23 Time exam was performed: 04:35 Sepsis Attestation: Sepsis re-evaluation was performed Response to fluids: Fluid responsive hypotension Charges/Coding Visit Charges Inpatient E&M: 59822 Init Hosp L3 02/27/23 0619 <Electronically signed by Asaf Johnston DO> Cosigner Signature (if applicable): CC: KIMBERLEY Butler; Dr. Asaf Johnston DO~ Signed [facility] Work Phone: 1(158) 737-483312-08-2023 Discharge summary Author Adithya Chan [facility] February 27, 2023 12:35am Note Date/Time February 26, 2023 1 1:21pm [facility] Medical Records Department [address] [place] [address] Emergency Department Summary 02/26/23 MR#: [id number] Acct: [id number] Name: TRENA Rep #:[id number] : 1985 37 From: Adithya Chan MD PCP: KIMBERLEY Olivo Status:REG E R Location: ED HPI History of Present Illness Chief Complaint: Shortness of Breath Detail of Chief Complaint: Shortness of breath, cough, wheezing Informant: patient Onset/Context/Timing Onset: Weeks (Onset approximately 1 week ago) Context: sudden Timing: Continuous and Waxes and wanes Quality: Positive for Dyspnea on exertion and Wheezing; Negative for Orthopnea or PND Current Severity: Mild Maximum Severity: Severe Worsened by: Exertion and Coughing Relieved by: Nothing Associated Symptoms cough, rhinorrhea, post nasal drip, fever, sore throat, chills and clear sputum;Negative for ear pain, subjective, sweats, white sputum, yellow sputum or green sputum Chest Pain: Positive for None Narrative Narrative: Patient is a 37-year-old female with history of hypercholesterolemia, hypertension and anxiety who presents with shortness of breath that is gotten worse over the past week. She was diagnosed with RSV 1 week ago. She is a smoker of 1 pack/day. She smoked very little the last 2 days. She denies headache. She denies double vision, blurred vision or loss of vision. Eyes photophobia. Denies neck pain or neck stiffness. She does endorse rhinorrhea, congestion postnasal drainage and sore throat. Her cough is productive of colored sputum. She denies chest discomfort. She denies nausea, vomit or diarrhea. She denies dysuria, frequency, urgency or hematuria. She does endorse myalgias and arthralgias. She has not noted a rash. She denies historyof diabetes. She reports allergy to amoxicillin with rash. PE Risk Factors: Positive for Prior DVT or PE; Negative for Cancer, OCP + Smoking + > 35, Recent immobilization, Recent surgery or Recent travel Prior similar symptoms: Yes Recent Illness/Hospitalization: Yes (Positive RSV) [facility] Medical History DVT (deep venous thrombosis) Fatty liver Gallbladder problem Leukocytosis Type 2 diabetes mellitus Home Medications albuterol sulfate 90 mcg/actuation aerosol inhaler (Ventolin HFA) 2 puff IH 4X/DAY PRN PRN Allergies 06/17/18 [History Last Taken Unknown] ferrous sulfate 325 mg (65 mg iron) tablet 325 mg PO DAILY 12/03/18 [History Last Taken Unknown] metoprolol tartrate 25 mg tablet 12.5 mg PO BID 12/03/18 [History Last Taken Unknown] ondansetron HCl 8 mg tablet 8 mg PO Q8H PRN PRN Nausea 03/29/20 [History Last Taken Unknown] atorvastatin 40 mg tablet (Lipitor) 40 mg PO QHS 05/15/21 [History Last Taken Unknown] cholecalciferol (vitamin D3) 1,250 mcg (50,000 unit) capsule 1,250 mcg PO QWEEK 05/15/21 [History Last Taken Unknown] fenofibrate nanocrystallized 145 mg tablet (Tricor) 145 mg PO DAILY 05/15/21 [History Last Taken Unknown] gabapentin 100 mg capsule 100 mg PO DAILY PRN 05/15/21 [History Last Taken Unknown] gabapentin 400 mg capsule 400 mg PO 4X/DAY 05/15/21 [History Last Taken Unknown] lorazepam 0.5 mg tablet (Ativan) 0.5 mg PO DAILY PRN 05/15/21 [History Last Taken Unknown] magnesium oxide 400 mg PO DAILY 05/15/21 [History Last Taken Unknown] quetiapine 50 mg tablet (Seroquel) 50 mg PO QHS 05/15/21 [History Last Taken Unknown] riboflavin (vitamin B2) 400 mg tablet 400 mg PO DAILY 05/15/21 [History Last Taken Unknown] Allergy/AdvReac Type Severity Reaction Status Date / Time Bleach (Sodium Hypochlorite) Allergy Hives Verified 05/17/21 07:19 heparin Allergy Other Verified 05/17/21 07:19 amoxicillin [Amoxicillin] AdvReac Rash Verified 05/17/21 07:19 citalopram hydrobromide AdvReac Mood Verified 05/17/21 07:19 [From Celexa] Family History Mother Diabetes Hypertension Asthma Sister Prediabetes Grandmother Kidney failure maternal Surgical History H/O dilation and curettage H/O tubal ligation History of partial hysterectomy Social History (Updated 02/26/23 @ 23:[address] Adithya Chan MD) household members: significant other and children Smoking Status: Current every day smoker tobacco type: cigarettes substance use type: does not use ROS ROS ED Constitutional Constitutional ED: Reports chills, fever(s) and sweats; Denies weight loss Eyes Eyes: Denies blurry vision, change in vision or diplopia ENT ENT ED: Reports rhinorrhea and sore throat; Denies ear pain Cardiovascular Cardiovascular: Denies chest pain, orthopnea, palpitations, paroxysmal nocturnaldyspnea or racing heartbeat Respiratory/Chest Respiratory/Chest: Reports cough, dyspnea, dyspnea on exertion and sputum; Denies orthopnea or paroxysmal nocturnal dyspnea Gastrointestinal Gastrointestinal: Denies abdominal pain, diarrhea, nausea or vomiting Genitourinary Genitourinary ED: Reports other Details: Patient endorses decreased urine output. ; Denies dysuria, hematuria or urinary frequency Musculoskeletal Musculoskeletal: Reports arthralgias and myalgias; Denies back pain or neck pain Integumentary Denies abscess or rash Neurologic Neurologic: Reports headache(s) and weakness; Denies paresthesias Psychiatric Psychiatric: Denies anxiety or depression Endocrine Endocrinology: Denies cold intolerance or heat intolerance Hematologic/Lymphatic Hematologic/Lymphatic: Denies easy bleeding or easy bruising EXAM Physical Exam Const Vital Signs: 02/26/23 22:33 02/26/23 22:52 02/26/23 22:52 Temperature 97.9 F 99.7 F H Temperature Source Temporal Oral Pulse Rate 95 94 Respiratory Rate 19 H 24 H Respiratory Effort Respiratory Depth Respiratory Pattern Blood Pressure 126/94 H 165/96 H Blood Pressure Mean 104 119 Pulse Ox 94 86 93 Oxygen Delivery Method Room Air Room Air Room Air Oxygen Flow Rate (L/min) 2 02/26/23 23:23 02/26/23 22:56 Temperature Temperature Source Pulse Rate 111 H Respiratory Rate 34 H Respiratory Effort Short of Breath Labored Accessory Muscle Use Respiratory Depth Shallow Respiratory Pattern Tachypnea Tachypnea Blood Pressure Blood Pressure Mean Pulse Ox Oxygen Delivery Method Room Air Oxygen Flow Rate (L/min) Positive well nourished, well developed and obese Constitutional Narrative: Patient is tachypneic but in 30+ times a minute and not 19 as document by triage. Her pulse ox was 86% on room air per bedside nurse. Patient is awake. She is slightly sleepy. General Appearance ED: well developed; Negative for pallor Nutritional Appearance: obese HEENT Reports moist mucous membranes HEENT Narrative: Ears are normal. Nares patent with clear discharge. Posterior pharynx out erythema or exudate. atraumatic Eyes PERRL and EOMs intact bilaterally General Eye ED: Negative for pale conjunctiva or scleral icterus Neck no lymphadenopathy, supple, no meningeal signs and no JVD Neck Narrative: Trachea is midline. There is no inspiratory or expiratory stridor. Resp No normal respiratory effort and No clear to auscultation bilaterally Resp Narrative: There is expiratory wheezing with forced expiration and prolonged expiratory phase. There is no rales or rhonchi noted. There are no retractions. Breath sounds are diminished bilaterally. Cardio regular rate, regular rhythm, S1 normal heart sound, S2 normal heart sound and no murmurs GI non-tender, non-distended and no masses Auscultation: normoactive bowel sounds Palpation: soft; Negative for hepatomegaly or splenomegaly Back/Spine no CVA tenderness and normal to inspection Extremity normal to inspection Extremity Narrative: There is no asymmetry, swelling, discoloration, leg vein distention, palpable cords or tenderness along the distribution of the deep venous system. General Extremety ED: Negative for edema or tenderness General Extremity: Negative for edema Neuro oriented x3, CN's II-XII intact bilaterally and no sensory deficits noted Tate Coma Scale: document GCS findings Spontaneous Obeys Commands Oriented 15 Speech: speech normal Psych mental status grossly normal Thought Process: normal thought process Skin no wounds and skin turgor normal General Skin Exam: Negative for jaundice or pallor Lesions: no lesions Rashes: no rashes MDM MDM MDM Narrative Medical decision making narrative: With history of positive RSV this may be acute bronchospasm/hyperactive airway disease due to to RSV. She was diagnosed over a week ago did also need to can consider bacterial superimposed pneumonia. Prior records were reviewed. She has history of dyspnea. She also has history of DVT. CBC was obtained to assess white count as well as H&H. Basic metabolic panel toassess for any endorgan dysfunction. Patient was treated with Solu-Medrol sinceshe is tachypneic and DuoNeb followed by 2 albuterol treatments. Chest x-ray was obtained to assess for pneumonia. History & Record Review Additional record(s) reviewed:: Prior outpatient record, Prior ED visit and Prior labs Lab Data Attestation: I reviewed the patient's lab results. Lab results narrative: White count is elevated 19.5 thousand with no shift. Of note patient's had several elevated white counts. Basic metabolic panel reveals an elevated creatinine of 1.42 which is patient's baseline for over the past year. Glucose is slightly elevated 114 with a normal CO2 anion gap. Labs: Laboratory Results - last 24 hr 02/26/23 22:55 WBC 19.5 H RBC 4.62 Hgb 13.6 Hct 41.4 MCV 89.6 MCH 29.4 MCHC 32.9 RDW Std Deviation 45.1 H RDW Coeff of Kendra 13.8 Plt Count 265 MPV 10.4 Immature Gran % (Auto) 0.800 Neut % (Auto) 69.2 Lymph % (Auto) 25.6 [place] % (Auto) 3.4 Eos % (Auto) 0.7 Baso % (Auto) 0.3 Absolute Neuts (auto) 13.5 H Absolute Lymphs (auto) 4.99 H Nucleated RBC % 0 Sodium 136 Potassium 3.7 Chloride 107 Carbon Dioxide 21.0 Anion Gap 8 BUN 19 H Creatinine 1.42 H Estim Creat Clear Calc 51.72 Est GFR (MDRD) Af Amer 53 L Est GFR (MDRD) Non-Af 44 L BUN/Creatinine Ratio 13.4 Glucose 114 H Calcium 8.4 L Radiography Chest X-Ray - ED: 2 View (2 view chest x-ray was independent reviewed by me and compared to chest x-ray that was obtained September 03, 2020. Patient has a right middle lobe and left lower lobe infiltrate. Cardiac silhouette is obscured on the right. Cardiac size is normal. Perihilar region is normal. Osseous structures are ) EKG Initial EKG: Attestation: I personally reviewed and interpreted this EKG as follows: Interpretation: Sinus Tachycardia (Rate is 102. The EKG other than sinus tach is normal. TX interval is 160 ms. QRS durations 82 ms. QT durations 120 ms. [place] is normal.) Management Discussion w/another healthcare provider: Hospitalist (Hospitalist was paged foradmission. Since patient is tachypneic, tachycardic, with high white count and bilateral pneumonia she will require admission. She is presently on oxygen.) Treatment and Re-Evaluation :: Because patient has 3 SIRS criteria lactate, blood cultures were ordered as wellas antibiotics for community-acquired pneumonia. This most likely represents a post RSV and infectious pneumonia. Because she was hypoxic will call hospitalist for admission. Discharge Plan Dx/Rx/DC Orders Clinical Impression: Acute hypoxemic respiratory failure, Pure hypercholesterolemia, Sepsis without acute organ dysfunction, Bilateral interstitial pneumonia, Acute bronchospasm, Sinus tachycardia, History of hypertension Disposition Disposition: Acute Care Hospital [facility] What to do if you have Problems For any increased pain, shortness of breath, bleeding, nausea or vomiting, chestpain, or any unexpected problems, contact your Primary Care Provider. Call [facility] ([phone]) or report to the closest Emergency Room. Call 911 if necessary. 02/27/2334 <Electronically signed by Adithya Chan MD> Cosigner Signature (if applicable): CC: KIMBERLEY Butler ~ Signed [facility] Work Phone: 1(229) 211-845112-08-2023 Discharge summary Author Adithya Chan [facility] February 27, 2023 12:35am Note Date/Time February 26, 2023 1 1:21pm [facility] Medical Records Department [address] [place] [address] Emergency Department Summary 02/26/23 MR#: [id number] Acct: [id number] Name: MARTINA ALBRECHT Rep #:[id number] : 1985 37 From: Adithya Chan MD PCP: TRUDI OlivoC Status:REG E R Location: ED HPI History of Present Illness Chief Complaint: Shortness of Breath Detail of Chief Complaint: Shortness of breath, cough, wheezing Informant: patient Onset/Context/Timing Onset: Weeks (Onset approximately 1 week ago) Context: sudden Timing: Continuous and Waxes and wanes Quality: Positive for Dyspnea on exertion and Wheezing; Negative for Orthopnea or PND Current Severity: Mild Maximum Severity: Severe Worsened by: Exertion and Coughing Relieved by: Nothing Associated Symptoms cough, rhinorrhea, post nasal drip, fever, sore throat, chills and clear sputum;Negative for ear pain, subjective, sweats, white sputum, yellow sputum or green sputum Chest Pain: Positive for None Narrative Narrative: Patient is a 37-year-old female with history of hypercholesterolemia, hypertension and anxiety who presents with shortness of breath that is gotten worse over the past week. She was diagnosed with RSV 1 week ago. She is a smoker of 1 pack/day. She smoked very little the last 2 days. She denies headache. She denies double vision, blurred vision or loss of vision. Eyes photophobia. Denies neck pain or neck stiffness. She does endorse rhinorrhea, congestion postnasal drainage and sore throat. Her cough is productive of colored sputum. She denies chest discomfort. She denies nausea, vomit or diarrhea. She denies dysuria, frequency, urgency or hematuria. She does endorse myalgias and arthralgias. She has not noted a rash. She denies historyof diabetes. She reports allergy to amoxicillin with rash. PE Risk Factors: Positive for Prior DVT or PE; Negative for Cancer, OCP + Smoking + > 35, Recent immobilization, Recent surgery or Recent travel Prior similar symptoms: Yes Recent Illness/Hospitalization: Yes (Positive RSV) [facility] Medical History DVT (deep venous thrombosis) Fatty liver Gallbladder problem Leukocytosis Type 2 diabetes mellitus Home Medications albuterol sulfate 90 mcg/actuation aerosol inhaler (Ventolin HFA) 2 puff IH 4X/DAY PRN PRN Allergies 06/17/18 [History Last Taken Unknown] ferrous sulfate 325 mg (65 mg iron) tablet 325 mg PO DAILY 12/03/18 [History Last Taken Unknown] metoprolol tartrate 25 mg tablet 12.5 mg PO BID 12/03/18 [History Last Taken Unknown] ondansetron HCl 8 mg tablet 8 mg PO Q8H PRN PRN Nausea 03/29/20 [History Last Taken Unknown] atorvastatin 40 mg tablet (Lipitor) 40 mg PO QHS 05/15/21 [History Last Taken Unknown] cholecalciferol (vitamin D3) 1,250 mcg (50,000 unit) capsule 1,250 mcg PO QWEEK 05/15/21 [History Last Taken Unknown] fenofibrate nanocrystallized 145 mg tablet (Tricor) 145 mg PO DAILY 05/15/21 [History Last Taken Unknown] gabapentin 100 mg capsule 100 mg PO DAILY PRN 05/15/21 [History Last Taken Unknown] gabapentin 400 mg capsule 400 mg PO 4X/DAY 05/15/21 [History Last Taken Unknown] lorazepam 0.5 mg tablet (Ativan) 0.5 mg PO DAILY PRN 05/15/21 [History Last Taken Unknown] magnesium oxide 400 mg PO DAILY 05/15/21 [History Last Taken Unknown] quetiapine 50 mg tablet (Seroquel) 50 mg PO QHS 05/15/21 [History Last Taken Unknown] riboflavin (vitamin B2) 400 mg tablet 400 mg PO DAILY 05/15/21 [History Last Taken Unknown] Allergy/AdvReac Type Severity Reaction Status Date / Time Bleach (Sodium Hypochlorite) Allergy Hives Verified 05/17/21 07:19 heparin Allergy Other Verified 05/17/21 07:19 amoxicillin [Amoxicillin] AdvReac Rash Verified 05/17/21 07:19 citalopram hydrobromide AdvReac Mood Verified 05/17/21 07:19 [From Celexa] Family History Mother Diabetes Hypertension Asthma Sister Prediabetes Grandmother Kidney failure maternal Surgical History H/O dilation and curettage H/O tubal ligation History of partial hysterectomy Social History (Updated 02/26/23 @ 23:[address] Adithya Chan MD) household members: significant other and children Smoking Status: Current every day smoker tobacco type: cigarettes substance use type: does not use ROS ROS ED Constitutional Constitutional ED: Reports chills, fever(s) and sweats; Denies weight loss Eyes Eyes: Denies blurry vision, change in vision or diplopia ENT ENT ED: Reports rhinorrhea and sore throat; Denies ear pain Cardiovascular Cardiovascular: Denies chest pain, orthopnea, palpitations, paroxysmal nocturnaldyspnea or racing heartbeat Respiratory/Chest Respiratory/Chest: Reports cough, dyspnea, dyspnea on exertion and sputum; Denies orthopnea or paroxysmal nocturnal dyspnea Gastrointestinal Gastrointestinal: Denies abdominal pain, diarrhea, nausea or vomiting Genitourinary Genitourinary ED: Reports other Details: Patient endorses decreased urine output. ; Denies dysuria, hematuria or urinary frequency Musculoskeletal Musculoskeletal: Reports arthralgias and myalgias; Denies back pain or neck pain Integumentary Denies abscess or rash Neurologic Neurologic: Reports headache(s) and weakness; Denies paresthesias Psychiatric Psychiatric: Denies anxiety or depression Endocrine Endocrinology: Denies cold intolerance or heat intolerance Hematologic/Lymphatic Hematologic/Lymphatic: Denies easy bleeding or easy bruising EXAM Physical Exam Const Vital Signs: 02/26/23 22:33 02/26/23 22:52 02/26/23 22:52 Temperature 97.9 F 99.7 F H Temperature Source Temporal Oral Pulse Rate 95 94 Respiratory Rate 19 H 24 H Respiratory Effort Respiratory Depth Respiratory Pattern Blood Pressure 126/94 H 165/96 H Blood Pressure Mean 104 119 Pulse Ox 94 86 93 Oxygen Delivery Method Room Air Room Air Room Air Oxygen Flow Rate (L/min) 2 02/26/23 23:23 02/26/23 22:56 Temperature Temperature Source Pulse Rate 111 H Respiratory Rate 34 H Respiratory Effort Short of Breath Labored Accessory Muscle Use Respiratory Depth Shallow Respiratory Pattern Tachypnea Tachypnea Blood Pressure Blood Pressure Mean Pulse Ox Oxygen Delivery Method Room Air Oxygen Flow Rate (L/min) Positive well nourished, well developed and obese Constitutional Narrative: Patient is tachypneic but in 30+ times a minute and not 19 as document by triage. Her pulse ox was 86% on room air per bedside nurse. Patient is awake. She is slightly sleepy. General Appearance ED: well developed; Negative for pallor Nutritional Appearance: obese HEENT Reports moist mucous membranes HEENT Narrative: Ears are normal. Nares patent with clear discharge. Posterior pharynx out erythema or exudate. atraumatic Eyes PERRL and EOMs intact bilaterally General Eye ED: Negative for pale conjunctiva or scleral icterus Neck no lymphadenopathy, supple, no meningeal signs and no JVD Neck Narrative: Trachea is midline. There is no inspiratory or expiratory stridor. Resp No normal respiratory effort and No clear to auscultation bilaterally Resp Narrative: There is expiratory wheezing with forced expiration and prolonged expiratory phase. There is no rales or rhonchi noted. There are no retractions. Breath sounds are diminished bilaterally. Cardio regular rate, regular rhythm, S1 normal heart sound, S2 normal heart sound and no murmurs GI non-tender, non-distended and no masses Auscultation: normoactive bowel sounds Palpation: soft; Negative for hepatomegaly or splenomegaly Back/Spine no CVA tenderness and normal to inspection Extremity normal to inspection Extremity Narrative: There is no asymmetry, swelling, discoloration, leg vein distention, palpable cords or tenderness along the distribution of the deep venous system. General Extremety ED: Negative for edema or tenderness General Extremity: Negative for edema Neuro oriented x3, CN's II-XII intact bilaterally and no sensory deficits noted Tate Coma Scale: document GCS findings Spontaneous Obeys Commands Oriented 15 Speech: speech normal Psych mental status grossly normal Thought Process: normal thought process Skin no wounds and skin turgor normal General Skin Exam: Negative for jaundice or pallor Lesions: no lesions Rashes: no rashes MDM MDM MDM Narrative Medical decision making narrative: With history of positive RSV this may be acute bronchospasm/hyperactive airway disease due to to RSV. She was diagnosed over a week ago did also need to can consider bacterial superimposed pneumonia. Prior records were reviewed. She has history of dyspnea. She also has history of DVT. CBC was obtained to assess white count as well as H&H. Basic metabolic panel toassess for any endorgan dysfunction. Patient was treated with Solu-Medrol sinceshe is tachypneic and DuoNeb followed by 2 albuterol treatments. Chest x-ray was obtained to assess for pneumonia. History & Record Review Additional record(s) reviewed:: Prior outpatient record, Prior ED visit and Prior labs Lab Data Attestation: I reviewed the patient's lab results. Lab results narrative: White count is elevated 19.5 thousand with no shift. Of note patient's had several elevated white counts. Basic metabolic panel reveals an elevated creatinine of 1.42 which is patient's baseline for over the past year. Glucose is slightly elevated 114 with a normal CO2 anion gap. Labs: Laboratory Results - last 24 hr 02/26/23 22:55 WBC 19.5 H RBC 4.62 Hgb 13.6 Hct 41.4 MCV 89.6 MCH 29.4 MCHC 32.9 RDW Std Deviation 45.1 H RDW Coeff of Kendra 13.8 Plt Count 265 MPV 10.4 Immature Gran % (Auto) 0.800 Neut % (Auto) 69.2 Lymph % (Auto) 25.6 [place] % (Auto) 3.4 Eos % (Auto) 0.7 Baso % (Auto) 0.3 Absolute Neuts (auto) 13.5 H Absolute Lymphs (auto) 4.99 H Nucleated RBC % 0 Sodium 136 Potassium 3.7 Chloride 107 Carbon Dioxide 21.0 Anion Gap 8 BUN 19 H Creatinine 1.42 H Estim Creat Clear Calc 51.72 Est GFR (MDRD) Af Amer 53 L Est GFR (MDRD) Non-Af 44 L BUN/Creatinine Ratio 13.4 Glucose 114 H Calcium 8.4 L Radiography Chest X-Ray - ED: 2 View (2 view chest x-ray was independent reviewed by me and compared to chest x-ray that was obtained September 03, 2020. Patient has a right middle lobe and left lower lobe infiltrate. Cardiac silhouette is obscured on the right. Cardiac size is normal. Perihilar region is normal. Osseous structures are ) EKG Initial EKG: Attestation: I personally reviewed and interpreted this EKG as follows: Interpretation: Sinus Tachycardia (Rate is 102. The EKG other than sinus tach is normal. TX interval is 160 ms. QRS durations 82 ms. QT durations 120 ms. [place] is normal.) Management Discussion w/another healthcare provider: Hospitalist (Hospitalist was paged foradmission. Since patient is tachypneic, tachycardic, with high white count and bilateral pneumonia she will require admission. She is presently on oxygen.) Treatment and Re-Evaluation :: Because patient has 3 SIRS criteria lactate, blood cultures were ordered as wellas antibiotics for community-acquired pneumonia. This most likely represents a post RSV and infectious pneumonia. Because she was hypoxic will call hospitalist for admission. Discharge Plan Dx/Rx/DC Orders Clinical Impression: Acute hypoxemic respiratory failure, Pure hypercholesterolemia, Sepsis without acute organ dysfunction, Bilateral interstitial pneumonia, Acute bronchospasm, Sinus tachycardia, History of hypertension Disposition Disposition: Acute Care Hospital [facility] What to do if you have Problems For any increased pain, shortness of breath, bleeding, nausea or vomiting, chestpain, or any unexpected problems, contact your Primary Care Provider. Call [facility] ([phone]) or report to the closest Emergency Room. Call 911 if necessary. 02/27/23 0035 <Electronically signed by Adithya Chan MD> Cosigner Signature (if applicable): CC: KIMBERLEY Butler ~ Signed [facility] Work Phone: 1(907) 629-129612-04-2023 Miscellaneous Notes* Telephone Encounter - eMgan Bernard - 02/23/2023 8:11 PM EST Patient given results and verbalized understanding of instructions given. Megan Bernard * Telephone Encounter - Keon Zheng APRN.CNP - 02/23/2023 8:05 PM EST Influenza COVID-19 test negative. RSV test was positive. This is a respiratory virus. Most contagious first 5 to 7 days of illness. Continue supportive therapies as discussed. Follow-up with PCP if symptoms or not improving. Keon Zheng APRN.CNP [facility] Miscellaneous Notes* Telephone Encounter - Jordana Cisse LPN - 01/21/2023 10:15 AM EDT Message left with information. * Telephone Encounter - Elin Dotson APRN.CNP - 01/21/2023 9:43 AM EDT Refilled patient's Valium. There are refills already sent to the pharmacy for the other medications. Please have the patient contact pharmacy to refill these medications for her. * Telephone Encounter - Jordana Cisse LPN - 01/21/2023 8:10 AM EDT Patient has been identified by name and date of : Yes Requested Prescriptions Pending Prescriptions Disp Refills QUEtiapine (SEROQUEL) 50 mg tablet 90 tablet 0 Sig: Take 1 tablet by mouth daily at bedtime. diazePAM (VALIUM) 5 mg tablet 30 tablet 0 Sig: Take 0.5 tablets by mouth two times a day as needed for muscle spasm or anxiety for up to 30 days. traZODone (DESYREL) 100 mg tablet 30 tablet 1 Sig: Take 1 tablet by mouth daily at bedtime. gabapentin (NEURONTIN) 400 mg capsule 120 capsule 2 Sig: Take one capsule in the morning, and 3 capsules in the evening. RX INSTRUCTIONS: Patient aware RX will be sent to pharmacy. No need to notify patient. Follow up 02/23/2023. Jordana Cisse LPN documented in this encounterPark[facility]-01-[facility]23 Miscellaneous Notes* Telephone Encounter - Jeremiah Ansari APRN.CNP - 01/21/2023 8:53 AM EDT Patient dismissed from department. Jeremiah Ansari APRN.CNP * Telephone Encounter - Precious Dash LPN - 01/21/2023 8:45 AM EDT Pt was dismissed form department. documented in this encounterParkview [facility]09-25-2023 Miscellaneous Notes* Telephone Encounter - Precious Dash LPN - 12/15/2022 8:42 AM EDT Patient phones requesting refills as follows: Requested Prescriptions Pending Prescriptions Disp Refills ondansetron orally disintegrating (ZOFRAN ODT) 4 mg disintegrating tablet 20 tablet 0 Sig: Take 1 tablet by mouth every 8 hours as needed. VITA-10/28/22 Labs-04/04/22 NOV-01/05/23 Please review and advise. Precious Dash LPN documented in this encounterParkview Health [facility]09-11-2023 History of Present illness Narrative* Elin Dotson APRN.HAMMER SETTER - 12/01/2022 11:46 AM EDT Patient did not log in for her virtual appointment with the provider today. She did not answer her phone when she was contacted. documented in this encounterParkview Health [facility]08-08-2023 History of Present illness Narrative* Ana Kingsley MD - 10/28/2022 3:40 PM EDT Chief Complaint Patient presents with: Weight Problem HPI June Trena is a 36 year old female who presents here today for obesity. Pt of Nallely cecilia. 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 Obesity: Pt wants to restart Adipex. Last rx was filled Jan 2022. She has lost 15 lbs on her own over the last 6 months by watching diet and portion sizes, walking occ on the treadmill. She toleratedthe Adipex well. She is using Trulicity 0.75 mg weekly to help with weight loss and manage her BS. Past medical history, appointments, medications, allergies reviewed. Previous Medical History PAST MEDICAL HISTORY Diagnosis Date Acalculous cholecystitis SANTANA (acute kidney injury) ([facility]) 08/05/2018 Anxiety DVT (deep venous thrombosis) ([facility]) 2018 Dysthymic disorder Depression (non-psychotic) Fatty liver 03/30/2020 Gestational diabetes mellitus, class A1 11/17/2016 gestational hypertension History of tobacco use 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 Hypertension Iron deficiency anemia Neuropathy bilateral lower ext Obesity (BMI 30-39.9) ELLEN (obstructive sleep apnea) 09/11/2021 Pap smear abnormality of cervix with ASCUS favoring benign 02/05/2015 Pneumonia 2019 MSSA, pseudomonas depression Type 2 diabetes mellitus without complication, without long-term current use of insulin ([facility]) 03/13/2020 Previous Surgical History PAST SURGICAL HISTORY Procedure Laterality Date DILATION & CURETTAGE DX&/THER NONOBSTETRIC 2004 Dilation & curettage MIDLINE INSERTION/CONSULT 09/16/2018 TUBAL LIGATION 2018 w/ Filshie clips VAGINAL HYSTERECTOMY UTERUS 250 GM/< 07/15/2018 TV[facility] Family History FAMILY HISTORY Problem Relation Age of Onset Anxiety disorder Mother Thyroid Mother Hypothyroidism Diabetes Mother other (cellulitis) Mother Bipolar disorder Sister Schizophrenia Sister Hypertension Maternal Aunt Diabetes Maternal Grandfather Hypertension Maternal Grandfather Heart Maternal Grandfather PACEMAKER No Ocular Disease No Family History Patient Allergies ALLERGIES Allergen Reactions Amoxicillin Hives Bactrim [Sulfametho* Other: See Comments nausea Celexa [Citalopram] Mental Status Change Suicidal per pt Heparin Other: See Comments HIT Bleach (Sodium Hypo* Rash Skin irritation, itching Current Medications Current Outpatient Medications on File Prior to Visit Medication Sig metoprolol tartrate, short acting, (LOPRESSOR) 25 mg tablet Take 0.5 tablets by mouth every 12 hours. topiramate (TOPAMAX) 50 mg tablet Take 1 tablet by mouth once daily. diazePAM (VALIUM) 5 mg tablet Take 0.5 tablets by mouth twice daily as needed for muscle spasm or anxiety for up to 30 days. traZODone (DESYREL) 100 mg tablet Take 1 tablet by mouth daily at bedtime. gabapentin (NEURONTIN) 400 mg capsule Take one capsule in the morning, and 3 capsules in the evening. riboflavin, vitamin B2, 400 mg tab Take 1 tablet by mouth once daily. Promethazine-DM (PHENERGAN-DM) 6.25-15 mg/5 mL syrup Take 5 mL by mouth four times daily as needed. benzonatate (TESSALON PERLE) 100 mg capsule Take 2 capsules by mouth three times daily as needed. FLUoxetine (PROZAC) 20 mg capsule Take 1 capsule by mouth once daily. QUEtiapine (SEROQUEL) 50 mg tablet Take 1 tablet by mouth daily at bedtime. dulaglutide (TRULICITY) 0.75 mg/0.5 mL pen injector Inject 0.75 mg subcutaneously one time a week. Inject dose once per week. Discard Pen After ferrous sulfate 325 mg (65 mg iron) tablet Take 1 tablet by mouth twice daily. ondansetron orally disintegrating (ZOFRAN ODT) 4 mg disintegrating tablet Take 1 tablet by mouth every 8 hours as needed. famotidine (PEPCID) 20 mg tablet Take 1 tablet by mouth twice daily as needed. Aqxmtuwjawivjrj-Pokvybxax-CE (BROMFED DM) 2-30-10 mg/5 mL syrup Take 5 mL by mouth four times dailyas needed. albuterol HFA (PROVENTIL HFA, VENTOLIN HFA) 90 mcg/actuation inhaler Inhale 2 Puffs as instructed every 4 hours as needed for wheezing/shortness of breath. dextromethorphan-guaiFENesin (MUCINEX DM) 30-600 mg per tablet Take 1 tablet by mouth twice daily. fluticasone (FLONASE) 50 mcg/actuation nasal spray Use 2 Sprays in each nostril once daily. Rinse mouth after use. lactobacillus rhamnosus (CULTURELLE) 10 billion cell capsule Take 1 capsule by mouth once daily. cetirizine (ZYRTEC) 10 mg tablet Take 1 tablet by mouth once daily. magnesium oxide (MAG-OX) 400 mg (241.3 mg magnesium) tablet Take 1 tablet by mouth once daily. atorvastatin (LIPITOR) 40 mg tablet Take 1 tablet by mouth daily at bedtime. For cholesterol. fenofibrate nanocrystallized (TRICOR) 145 mg tablet Take 1 tablet by mouth once daily. Lancets lancets Test blood sugar(s) 1 times daily. Dx: Type 2 DM - Controlled E11.9 Insulin: No blood sugar diagnostic (BLOOD GLUCOSE TEST) test strip Test blood sugar(s) 1 times daily. Dx: OtherDM Code R73.03 Insulin: No cyclobenzaprine (FLEXERIL) 10 mg tablet Take 1 tablet by mouth three times daily as needed for muscle spasm. CPAP CPAP 7 cm H2O. Formal mask refitting & work with RT, chin strap, head gear, humidity, heated tubing(GWENDOLYN), lifetime supplies. G47.33 ELLEN blood sugar diagnostic (BLOOD GLUCOSE TEST) test strip Test blood sugar(s) 1 times daily. Dx: Type 2 DM - Controlled E11.9 Insulin: No No current facility-administered medications on file prior to visit. Social History Social History Tobacco Use Smoking status: Light Smoker Packs/day: 0.50 Years: 15.00 Total pack years: 7.50 Types: Cigarettes Last attempt to quit: 07/16/2018 Years since quittin.2 Smokeless tobacco: Never Tobacco comments: with anxiety Vaping Use Vaping Use: Never used Substance Use Topics Alcohol use: No Drug use: No EXAM: BP 126/74 Pulse 98 Resp 16 Wt 122.1 kg (269 lb 1.6 oz) LMP 05/03/2018 (Within Days) BMI 42.15 kg/m General Appearance: Well appearing, alert, in no acute distress, well-hydrated, well nourished. andMorbidly obese. Lungs: Lungs clear to auscultation. No wheezing, rhonchi, rales.. Heart: RRR without murmur, gallop, or rubs. No ectopy. Health Maintenance List HEPATITIS B(1 of 3 - 3-dose series) Never done COVID-19 VACCINE(1) Never done BP CONTROLLED (<130/80) Never done DILATED RETINAL EXAM due on 03/20/2021 URINE ALBUMIN:CREATININE RATIO due on 04/02/2021 DIABETIC FOOT EXAM due on 06/03/2022 HBA1C due on 10/12/2022 PAP TESTING due on 03/19/2023 HPV TESTING due on 03/19/2023 INFLUENZA(1) due on 11/21/2022 LDL CHOLESTEROL due on 04/04/2023 SERUM CREATININE due on 04/04/2023 HEMOGLOBIN/HEMATOCRIT due on 04/04/2023 ANNUAL PCP TEAM CHRONIC DISEASE VISIT due on 10/11/2023 DTAP,TDAP,TD(2 - Td or Tdap) due on 10/11/2024 HEPATITIS C SCREENING Completed HIV SCREENING Completed PNEUMOCOCCAL Completed HPV VACCINE Aged Out Data reviewed Weight graph ASSESSMENT/PLAN: 1. Type 2 diabetes mellitus without complication, without long-term current use of insulin ([facility]) - ICD9: 250.00, ICD10: E11.9 (primary diagnosis) - Control undetermined, due for labs - Counseled on healthy diet and regular exercise - Discussed need for and benefit of weight loss. BMI 42.15 kg/(m^2) - Increase Trulicity to 1.5 mg weekly 2. Obesity, Class III, BMI 40-49.9 (morbid obesity) ([facility]) - ICD9: 278.01, ICD10: E66.01 Weight decreasing Restart Adipex Increase Trulicity to 1.5 mg weekly - PHENTERMINE 37.5 MG TABLET Follow up in 2 month; refill done on adipex due to provider not being in the office next month.. I agree with the Chief Complaint, ROS, and Past Histories independently gathered by the clinical phlebotomy support tech and the remaining scribed note accurately describes my personal service to the patient. Medical Decision Making: Problems: Low: Stable chronic illness Risk: Moderate: Drug management Medical Decision Making Level: 3 - Low Ana Kingsley MD The documentation for this note was completed by Natacha Buchanan Ma acting as scribe for Ana Kingsley MD. October 28, 2022 3:50 PM. Natacha Buchanan Ma documented in this encounterPark[facility]07-15-2023 History of Present illness Narrative* Lela Mcdaniel APRN.HAMMER SETTER - 10/04/2022 12:18 PM EDT Subjective HPI HPI June Trena is a 36 year old female who presents today for CC of cough, sinus pressure, earpain, st. This started 5 days ago. Has tried otc medication for relief. Symptoms are worsened by nothing. Risk factors smoker. Hx of pneumonia with sepsis. Denies possibility of being . .Patient presents with: Sinus Problem: Chest congestion, eye pain, sore throat x 5 days PAST MEDICAL HISTORY Diagnosis Date Acalculous cholecystitis SANTANA (acute kidney injury) ([facility]) 08/05/2018 Anxiety DVT (deep venous thrombosis) ([facility]) 2019 Dysthymic disorder Depression (non-psychotic) Fatty liver 03/30/2020 Gestational diabetes mellitus, class A1 11/17/2016 gestational hypertension History of tobacco use 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 Hypertension Iron deficiency anemia Neuropathy bilateral lower ext Obesity (BMI 30-39.9) ELLEN (obstructive sleep apnea) 09/11/2021 Pap smear abnormality of cervix with ASCUS favoring benign 02/05/2015 Pneumonia 2019 MSSA, pseudomonas depression Type 2 diabetes mellitus without complication, without long-term current use of insulin ([facility]) 03/13/2020 PAST SURGICAL HISTORY Procedure Laterality Date DILATION & CURETTAGE DX&/THER NONOBSTETRIC 2004 Dilation & curettage MIDLINE INSERTION/CONSULT 09/16/2018 TUBAL LIGATION 2018 w/ Filshie clips VAGINAL HYSTERECTOMY UTERUS 250 GM/< 07/15/2018 [facility] ALLERGIES Amoxicillin, Bactrim [Sulfamethoxazole-Trimethoprim], Celexa [Citalopram], Heparin, and Bleach (Sodium Hypochlorite) MEDICATIONS FLUoxetine (PROZAC) 20 mg capsule Take 1 capsule by mouth once daily. QUEtiapine (SEROQUEL) 50 mg tablet Take 1 tablet by mouth daily at bedtime. traZODone (DESYREL) 100 mg tablet Take 1 tablet by mouth daily at bedtime. diazePAM (VALIUM) 5 mg tablet Take 0.5 tablets by mouth twice daily as needed for muscle spasm or anxiety for up to 30 days. dulaglutide (TRULICITY) 0.75 mg/0.5 mL pen injector Inject 0.75 mg subcutaneously one time a week. Inject dose once per week. Discard Pen After topiramate (TOPAMAX) 50 mg tablet Take 1 tablet by mouth once daily. ferrous sulfate 325 mg (65 mg iron) tablet Take 1 tablet by mouth twice daily. ondansetron orally disintegrating (ZOFRAN ODT) 4 mg disintegrating tablet Take 1 tablet by mouth every 8 hours as needed. famotidine (PEPCID) 20 mg tablet Take 1 tablet by mouth twice daily as needed. gabapentin (NEURONTIN) 400 mg capsule Take one capsule in the morning, and 3 capsules in the evening. Fjfekcslwgoiuzw-Coarcytnf-TJ (BROMFED DM) 2-30-10 mg/5 mL syrup Take 5 mL by mouth four times dailyas needed. albuterol HFA (PROVENTIL HFA, VENTOLIN HFA) 90 mcg/actuation inhaler Inhale 2 Puffs as instructed every 4 hours as needed for wheezing/shortness of breath. dextromethorphan-guaiFENesin (MUCINEX DM) 30-600 mg per tablet Take 1 tablet by mouth twice daily. fluticasone (FLONASE) 50 mcg/actuation nasal spray Use 2 Sprays in each nostril once daily. Rinse mouth after use. lactobacillus rhamnosus (CULTURELLE) 10 billion cell capsule Take 1 capsule by mouth once daily. cetirizine (ZYRTEC) 10 mg tablet Take 1 tablet by mouth once daily. metoprolol tartrate, short acting, (LOPRESSOR) 25 mg tablet Take 0.5 tablets by mouth every 12 hours. magnesium oxide (MAG-OX) 400 mg (241.3 mg magnesium) tablet Take 1 tablet by mouth once daily. atorvastatin (LIPITOR) 40 mg tablet Take 1 tablet by mouth daily at bedtime. For cholesterol. fenofibrate nanocrystallized (TRICOR) 145 mg tablet Take 1 tablet by mouth once daily. riboflavin, vitamin B2, 400 mg tab Take 1 tablet by mouth once daily. Lancets lancets Test blood sugar(s) 1 times daily. Dx: Type 2 DM - Controlled E11.9 Insulin: No blood sugar diagnostic (BLOOD GLUCOSE TEST) test strip Test blood sugar(s) 1 times daily. Dx: OtherDM Code R73.03 Insulin: No cyclobenzaprine (FLEXERIL) 10 mg tablet Take 1 tablet by mouth three times daily as needed for muscle spasm. CPAP CPAP 7 cm H2O. Formal mask refitting & work with RT, chin strap, head gear, humidity, heated tubing(GWENDOLYN), lifetime supplies. G47.33 ELLEN blood sugar diagnostic (BLOOD GLUCOSE TEST) test strip Test blood sugar(s) 1 times daily. Dx: Type 2 DM - Controlled E11.9 Insulin: No doxycycline monohydrate 100 mg tablet Take 1 tablet by mouth twice daily for 7 days. benzonatate (TESSALON PERLE) 100 mg capsule Take 2 capsules by mouth three times daily as needed. predniSONE (DELTASONE) 20 mg tablet Take 2 tablets by mouth once daily for 5 days. FAMILY HISTORY Problem Relation Age of Onset Anxiety disorder Mother Thyroid Mother Hypothyroidism Diabetes Mother other (cellulitis) Mother Bipolar disorder Sister Schizophrenia Sister Hypertension Maternal Aunt Diabetes Maternal Grandfather Hypertension Maternal Grandfather Heart Maternal Grandfather PACEMAKER No Ocular Disease No Family History Social History Tobacco Use Smoking status: Light Smoker Packs/day: 0.50 Years: 15.00 Total pack years: 7.50 Types: Cigarettes Last attempt to quit: 07/16/2018 Years since quittin.2 Smokeless tobacco: Never Tobacco comments: with anxiety Vaping Use Vaping Use: Never used Substance Use Topics Alcohol use: No Drug use: No Review of Systems Constitutional: Negative for fever. HENT: Positive for congestion, ear pain, sinus pain and sore throat. Negative for ear discharge andnosebleeds. Respiratory: Positive for cough, sputum production and wheezing. Negative for shortness of breath. Gastrointestinal: Negative for abdominal pain and nausea. Musculoskeletal: Negative for neck pain. Objective Blood pressure 100/78, pulse 90, temperature 36.1 C (96.9 F), resp. rate 20, weight 121.6 kg (268 lb), last menstrual period 05/03/2018, SpO2 98 %. Physical Exam Constitutional: General: She is not in acute distress. Appearance: She is not toxic-appearing or diaphoretic. HENT: Head: Normocephalic and atraumatic. Right Ear: Hearing, tympanic membrane, ear canal and external ear normal. Left Ear: Hearing, tympanic membrane, ear canal and external ear normal. Nose: Nose normal. Mouth/Throat: Pharynx: Uvula midline. No pharyngeal swelling, oropharyngeal exudate, posterior oropharyngeal erythema or uvula swelling. Eyes: General: Lids are normal. No scleral icterus. Right eye: No discharge. Left eye: No discharge. Conjunctiva/sclera: Conjunctivae normal. Pupils: Pupils are equal, round, and reactive to light. Neck: Trachea: Trachea normal. Cardiovascular: Rate and Rhythm: Normal rate and regular rhythm. Heart sounds: Normal heart sounds. Pulmonary: Effort: Pulmonary effort is normal. Breath sounds: Normal breath sounds. Musculoskeletal: Cervical back: Normal range of motion and neck supple. Lymphadenopathy: Cervical: No cervical adenopathy. Right cervical: No superficial cervical adenopathy. Left cervical: No superficial cervical adenopathy. Skin: Findings: No rash. Neurological: Mental Status: She is alert and oriented to person, place, and time. ASSESSMENT/PLAN: 1. Lower resp. tract infection - ICD9: 519.8, ICD10: J22 (primary diagnosis) No xray at time of exam - Discussed supportive care - Limit exposure to smoke and other inhaled irritants - Discussed possible red flags and when to seek medical attention - Follow up in 3-5 days or sooner if no better or worse -If you experience chest pain/shortness of breath go to ER - DOXYCYCLINE MONOHYDRATE 100 MG TABLET - BENZONATATE 100 MG CAPSULE - PREDNISONE 20 MG TABLET 2. Sore throat - ICD9: 462, ICD10: J02.9 - STREP A MOLECULAR (POC) Lela Mcdaniel APRN.CNP documented in this encounterPark[facility]06-26-2023 Miscellaneous Notes* Telephone Encounter - rTev Acuna MA - 09/15/2022 11:38 AM EDT PLEASE SEE 09/11/22 MESSAGE. Trev Acuna MA * Telephone Encounter - Nallely Butler APRN.CNP - 09/09/2022 12:37 PM EDT I would presume that there is a covering pool for psych in Elin's absence. Can we please check into this? * Telephone Encounter - Emperatriz Bolden Ma - 09/08/2022 5:16 PM EDT Nallely pt is requesting Rx refills for Valium, this was started by Psych. Psych Nurse is decliningrefills with no messages routed back to pt. Are you wanting to fill this medication for pt or is there to be help with Provider being out? Emperatriz Bolden Ma * Telephone Encounter - Emperatriz Bolden Ma - 09/08/2022 5:11 PM EDT I see that pt is having Valium medication denied, this is the second request. Can you please let ptknow why. Route to Jordana Cisse. Emperatriz Bolden Ma documented in this encounterParkview [facility]06-22-2023 Miscellaneous Notes* Telephone Encounter - Radha Diane Ma - 09/11/2022 12:17 PM EDT Patient sent another mychart was routed to monogram and letter paster psych department See other message Radha Diane Ma documented in this encounterParkview [facility]06-22-2023 Miscellaneous Notes* Telephone Encounter - Radha Diane Ma - 09/11/2022 11:56 AM EDT Patient has sent several messages for valium refill that have not been addressed. Please advise Radha Diane Ma documented in this encounterParkview [facility]06-06-2023 Miscellaneous Notes* Telephone Encounter - Carlyn Conroy Ma - 08/26/2022 12:13 PM EDT Patient has been identified by name and date of : Yes Requested Prescriptions Pending Prescriptions Disp Refills dulaglutide (TRULICITY) 0.75 mg/0.5 mL pen injector 4 Each 1 Sig: Inject 0.75 mg subcutaneously one time a week. Inject dose once per week. Discard Pen After Patient's last visit within dept: 08/06/22 Next appt: 09/25/22 Last labs completed: 04/14/22, due to complete in RX INSTRUCTIONS: Patient aware RX will be sent to pharmacy. No need to notify patient. Carlyn Conroy Ma documented in this encounterParkview [facility]05-17-2023 Miscellaneous Notes* Telephone Encounter - Caro Castillo Ma - 08/06/2022 12:22 PM EDT Request completed and faxed. Confirmed and filed. Caro Castillo Ma * Telephone Encounter - Caro Castillo Ma - 08/06/2022 11:12 AM EDT Type of letter/form/fax request - Medical Necessity Form received from [facility] on 2c floor and placed on [facility] Trev June's desk for completion. Completed form needs to be faxed to [phone]. Route to [place] when form completed for processing documented in this encounterParkview Health [facility]05-01-2023 Miscellaneous Notes* Telephone Encounter - Emperatriz Bolden Ma - 07/21/2022 10:42 AM EDT See pt message. Last Rx given was January to February. Pt is currently on multiple medications, psych including Valium and was on Klonopin. She also takes Topamax and Trulicity. Generally it's 6 months. Advise. Emperatriz Bolden Ma documented in this encounterParkview Health [facility]04-24-2023 Instructions* Patient Instructions* Elin Dotson APRN.MARIE - 07/14/2022 2:08 PM EDT lo June, It was good to talk with you today. Below is a summary of the plan that we discussed during your appointment for reference. Of course, if you have any questions or concerns do not hesitate to reach out to me via a message or call. Elin Arceo APRN.MARIE PLAN AND FOLLOW UP: YOU SHOULD SEEK IMMEDIATE MEDICAL ATTENTION AT THE NEAREST EMERGENCY DEPARTMENT OR BY CALLING 911, IF ANY OF THE FOLLOWING OCCURS: - New or worsening thoughts of harming yourself (suicidal thoughts) or others (homicidal thoughts) - Not feeling safe at home or worrying about your ability to remain safe at home If you are having thoughts of harming yourself or others, then you can: - Call the National Suicide Hotline at 6-690-QSIYOED ( ) or 8-636-024-TALK (2758) - Text 4HOPE to 048787 Medication Update: Stop Klonopin and Buspar 2. Start Prozac 20 mg - take 1 capsule once daily. 3. Diazepam (Valium) 5 mg - take 1/2 tablet twice daily as needed to manage severe panic symptoms 4. Continue Trazodone and Seroquel at the same dose. -- Please call my nurse Jordana at [phone] or send me a message in EventWith with any questions or concerns between appointments. documented in this encounterParkview Health [facility]04-24-2023 History of Present illness Narrative* Elin Dotson APRN.CNP - 07/14/2022 1:35 PM EDT Images from the original note were not included. PSYC FOLLOW UP - PSYCHIATRIC PROGRESS NOTE DIAGNOSIS: Panic disorder with agoraphobia MDD, recurrent, moderate GAF: -60-51 Moderate symptoms or moderate difficulty in social, occupational or school functioning. TREATMENT PLAN: Discontinue Buspar due to lack of efficacy. Restart Prozac as patient has benefited from it in the past for her mood and anxiety symptoms. Discussed taking it with certain foods rich in potassium and good fats to help with nausea related side effect. Discontinue Klonopin due to lack of efficacy. Start Valium to help with panic symptoms and muscle spasms. Continue Trazodone and Seroquel at the same dose. Collaborate with her community provider. She has an intake appointment on July 25. Medication Update: Stop Klonopin and Buspar 2. Start Prozac 20 mg - take 1 capsule once daily. 3. Diazepam (Valium) 5 mg - take 1/2 tablet twice daily as needed to manage severe panic symptoms 4. Continue Trazodone and Seroquel at the same dose. The effects and side effects of all the medications were reviewed in detail with the patient. She is in agreement with the treatment plan and aware to reach out with any questions, concerns, or worsening of symptoms prior to the next appointment. PMDP report was reviewed and found to be appropriatewithout any signs of misuse or diversion. Patient denies any involuntary movement related side effects. CC: Follow up regarding mood and anxiety With the patient consent, visit was performed virtually. I have communicated my name and active licensure. The patient's identity and physical location wereverified at the time of this visit. Either the patient or their legal plastic products sales representative has been informed of the risks and benefits of -- and alternatives to -- treatment through a remote evaluation andconsents to proceed with the evaluation remotely. HPI: Martina Albrecht is a 36 year old Female with a history of Panic disorder and MDD presenting today for follow-up. Date of last visit: 05/15/2022 Plan from last visit: Change the time of Buspar to bedtime and trial a lower dose during the day. Continue the rest of the psychiatric medications at the same dose. Discussed referral to a community provider so that patient is able to engage in medication management and therapy with the same provider. She has been struggling with scheduling therapy for months now. Has significant psychosocial stressors which could be processed well in therapy. Follow up in June if unable to get an appointment with the community provider prior to that. Today Martina shares that she is at work currently. She has been concerned that her anxiety and depressive symptoms are getting worse. Does not feel that Buspar is helpful. She is feeling drowsy if shetakes it during the day. Does not feel Clonazepam is effective. She has been experiencing panic attacks during the day at work and at home. Has stress related to her 17 year son. He was staying with his father but since October has been staying with mother. "He is fighting with his father and taking it out on me". She is not sleeping well. Takes Seroquel and Trazodone. Difficulty staying asleep. Keeps waking up every 2 hours. Has noticed that she is having vivid night hunter. She has been concerned about musclespasms at night. She feels like she is on edge all day. Has been getting more aggravated at home. She does not want to snap at people, especially at home. She finds herself engaging in catastrophic thinking. Interval Progress: Slightly worse Risks and benefits of the medication, including any black box warnings, were discussed with the patient. Social History: See HPI PATIENT DATA: Generalized Anxiety Disorder Scale (BECCA-7) BECCA - 7 SCORES 12/16/2021 03/19/2022 05/15/2022 BECCA-7 Score 19 21 20 (0-4) minimal anxiety, (5-9) mild anxiety, (10-14) moderate anxiety, (15-21) severe anxiety Patient Health Questionnaire (PHQ-9) PHQ-9 03/19/2022 05/15/2022 07/14/2022 Score 18 24 22 (0-4) minimal depression, (5-9) mild depression, (10-14) moderate depression, (15-19) moderately severe depression, (20-27) severe depression ROS: See HPI General: Negative for fever, malaise, unintentional weight loss HEENT: Negative for recent changes in vision or hearing, no nasal drainage Respiratory: Negative for cough, wheezing or SOB Cardiovascular: Negative for chest pain GI: Negative for nausea, vomiting, change in bowel habits MUSCULOSKELETAL: Negative for acute back or joint pain SKIN: Negative for rash NEURO: Negative for headaches, seizures, focal neurological deficits All other systems negative. VITAL SIGNS: BP Temp Pulse Resp SpO2 MENTAL STATUS EXAMINATION: Appearance: Appropriately groomed, appears stated age Behavior: Appropriately engaged Psychomotor: No psychomotor agitation Cognition Level of Consciousness: Awake and alert. No fluctuation in wakefulness. Orientation: Grossly oriented Memory: Intact Attention/Concentration: Good Fund of Knowledge: Able to demonstrate an awareness of current events. Mood: Sad, Anxious Affect: Slightly tearful at times Speech/Language: Appropriate tone, prosody, day, phonetics, and syntax Thought Form: Goal-directed. No loosening of associations. Thought Content: No delusions noted or endorsed. Perceptual Disturbances: Did not appear to respond to auditory stimuli. Safety: Suicidal Ideations: No suicidal ideation, intent or plan. Homicidal Ideations: No homicidal ideation, intent or plan. Insight: Appropriate Judgment: Appropriate I spent a total of 38 minutes on the date of the service which included preparing to see the patient, [id number] patient care, completing clinical documentation, and counseling and educating the patient/family/caregiver, ordering medications/labs, and communicating with other health care providers. Elin Dotson APRN.HAMMER SETTER July 14, 2022 1:35 PM This note was partially generated using [employer] voice recognition system. Note was reviewed for accuracy. There may be minor misspellings or grammar miscues with [employer] voice recognition. documented in this encounterPark[facility] Miscellaneous Notes* Telephone Encounter - Natacha Buchanan Ma - 07/08/2022 8:30 AM EDT Last office visit: 04/14/22 F/u scheduled: none Natacha Buchanan Ma documented in this encounterPark[facility]03-20-2023 Miscellaneous Notes* Telephone Encounter - Martinez Vogel LPN - 06/09/2022 7:07 PM EDT Patient phones requesting refills as follows: Requested Prescriptions Pending Prescriptions Disp Refills topiramate (TOPAMAX) 50 mg tablet 30 tablet 1 Sig: Take 1 tablet by mouth once daily. Please review and advise. Martinez Vogel LPN documented in this [facility]03-14-2023 History of Present illness Narrative* Carline Hendrickson APRN.CNP - 06/03/2022 3:32 PM EDT This is an Express Care eVisit note for [facility] eVisit/Questionnaire reviewed The chief complaint for the visit - Patient presents with: Sinus Problem Recommendations/Treatment plan - See My Chart Message to patient Time spent <1 min Carline Hendrickson APRN.CNP documented in this [facility]03-07-2023 Miscellaneous Notes* Telephone Encounter - Jeremiah Ansari APRN.CNP - 05/27/2022 10:47 AM EST The following approved medication requests have been transmitted electronically. Requested Prescriptions Pending Prescriptions Disp Refills cetirizine (ZYRTEC) 10 mg tablet 30 tablet 11 Sig: Take 1 tablet by mouth once daily. Jeremiah Ansari APRN.MARIE * Telephone Encounter - Jordana Cisse LPN - 05/27/2022 8:00 AM EST Patient has been identified by name and date of : Yes Requested Prescriptions Pending Prescriptions Disp Refills cetirizine (ZYRTEC) 10 mg tablet 30 tablet 0 Sig: Take 1 tablet by mouth once daily. RX INSTRUCTIONS: Patient aware RX will be sent to pharmacy. No need to notify patient. Following up with community provider. Jordana Cisse LPN documented in this encounterPark[facility]02-23-2023 History of Present illness Narrative* Elin Dotson APRN.CNP - 05/15/2022 10:05 AM EST Images from the original note were not included. PSYC FOLLOW UP - PSYCHIATRIC PROGRESS NOTE DIAGNOSIS: Panic disorder with agoraphobia MDD, recurrent, moderate GAF: -60-51 Moderate symptoms or moderate difficulty in social, occupational or school functioning. TREATMENT PLAN: Change the time of Buspar to bedtime and trial a lower dose during the day. Continue the rest of the psychiatric medications at the same dose. Discussed referral to a community provider so that patient is able to engage in medication management and therapy with the same provider. She has been struggling with scheduling therapy for months now. Has significant psychosocial stressors which could be processed well in therapy. Follow up in June if unable to get an appointment with the community provider prior to that. The effects and side effects of all the medications were reviewed in detail with the patient. She is in agreement with the treatment plan and aware to reach out with any questions, concerns, or worsening of symptoms prior to the next appointment. She denies any involuntary movement related side effects. PDMP report was reviewed and found to be appropriate without any signs of misuse or diversion. CC: Follow up regarding mood and anxiety With the patient consent, visit was performed virtually. HPI: Martina Albrecht is a 36 year old Female with a history of Panic disorder and MDD presenting today for follow-up. Date of last visit: 03/20/2022 Plan from last visit: Trazodone 100 mg - take 1 tablet at bedtime. Buspar 15 mg - take 1 tablet three times daily. Continue Seroquel at the same dose. Utilize Klonopin only as needed for episodes of overwhelming anxiety. Today Martina shares that she is okay. She is still working a lot. Her stress has increased and she is not able to focus. She has not restarted Buspar as she experienced some daytime sedation with it. Her anxiety and panic attacks are getting worse. She is getting irritable and gets upset easy. She finally completed the blood work for her kidneys. Her levels improved. This is the best that ithas been in a year. She has a visit with a primary care provider in 2 weeks. She has been prescribed trulicity by her PCP but she had some anxiety starting it. She feels that weight loss would help her mood. She has not been able to look for a therapist. Has a lot of stress related to . He texts herfrequently with suicidal threats. He doesn't want to see the children. Her boys are 4 and 7 years old. Worries about them not having a male figure in their life. They have been for almost ayear. He is not willing to divorce her. She has been taking Klonopin daily to manage severe anxiety symptoms. Interval Progress: Same Risks and benefits of the medication, including any black box warnings, were discussed with the patient. Social History: See HPI PATIENT DATA: Generalized Anxiety Disorder Scale (BECCA-7) BECCA - 7 SCORES 12/16/2021 03/19/2022 05/15/2022 BECCA-7 Score 19 21 20 (0-4) minimal anxiety, (5-9) mild anxiety, (10-14) moderate anxiety, (15-21) severe anxiety Patient Health Questionnaire (PHQ-9) PHQ-9 02/25/2022 03/19/2022 05/15/2022 Score 21 18 24 (0-4) minimal depression, (5-9) mild depression, (10-14) moderate depression, (15-19) moderately severe depression, (20-27) severe depression ROS: See HPI General: Negative for fever, malaise, unintentional weight loss HEENT: Negative for recent changes in vision or hearing, no nasal drainage Respiratory: Negative for cough, wheezing or SOB Cardiovascular: Negative for chest pain GI: Negative for nausea, vomiting, change in bowel habits MUSCULOSKELETAL: Negative for acute back or joint pain SKIN: Negative for rash NEURO: Negative for headaches, seizures, focal neurological deficits All other systems negative. VITAL SIGNS: BP Temp Pulse Resp SpO2 MENTAL STATUS EXAMINATION: Appearance: Appropriately groomed, appears stated age Behavior: Appropriately engaged Psychomotor: No psychomotor agitation Cognition Level of Consciousness: Awake and alert. No fluctuation in wakefulness. Orientation: Grossly oriented Memory: Intact Attention/Concentration: Good Fund of Knowledge: Able to demonstrate an awareness of current events. Mood: Sad, Anxious Affect: Congruent to mood Speech/Language: Appropriate tone, prosody, day, phonetics, and syntax Thought Form: Goal-directed. No loosening of associations. Thought Content: No delusions noted or endorsed. Perceptual Disturbances: Did not appear to respond to auditory stimuli. Safety: Suicidal Ideations: No suicidal ideation, intent or plan. Homicidal Ideations: No homicidal ideation, intent or plan. Insight: Appropriate Judgment: Appropriate I spent a total of 38 minutes on the date of the service which included preparing to see the patient, [id number] patient care, completing clinical documentation, and counseling and educating the patient/family/caregiver, ordering medications/labs, and communication with other healthcare providers. Elin Dotson APRN.CNP May 15, 2022 10:05 AM This note was partially generated using [employer] voice recognition system. Note was reviewed for accuracy. There may be minor misspellings or grammar miscues with [employer] voice recognition. documented in this encounterPark[facility]02-21-2023 Instructions* Patient Instructions* Shayna Davis APRN.CN - 05/13/2022 3:42 PM EST Non-Hormonal Vaginal Lubricants & Vaginal Moisturizers Symptoms of vaginal dryness can be managed by the regular use of vaginal moisturizing agents with supplemental use of vaginal lubricants for sexual intercourse. . Use of vaginal moisturizers and lubricants alone is effective treatment for vaginal dryness or dyspareunia (pain with intercourse) in some patients. Vaginal lubrications- Vaginal lubricants are designed to reduce friction and discomfort from dryness during sexual intercourse. The lubricant is applied inside the vagina and/or on the partner's penis or fingers just before sex. Coconut, [place], Avocado or Peanut oil- natural oils are not recommended for use with latex condoms or diaphragms as they can damage the latex Astroglide- has both water and silicone based KY Jelly- water based Just like me - Pure Romance Almost Naked Good Clean Love - Bio Nude ultra-sensitive Pjur- silicone ID Millennium- silicone Vaginal Moisturizers- Vaginal moisturizers are intended for use routinely, typically two or three days per week, not just during sexual activity. These products are typically bioadhesives. Many moisturizer products are available in pharmacies and online. Restore- [employer] Replens Garrett Feminease Moist Again K-Y Liquid beads Products to assist with maintaining vaginal ph IsoFresh www.[employer] BiopHresh Rephresh documented in this encounterPark[facility]02-21-2023 History of Present illness Narrative* Shayna Davis APRN.CNM - 05/13/2022 3:25 PM EST Martina Albrecht is a 36 year old female who presents for problem visit of continued vaginal burningwith occasional itching. Seen in office 3 weeks ago for similar symptoms and was + for BV. Treated with Flagyl and completed medication but feeling symptoms have not resolved completely. Denies any vaginal discharge or odor. Some vaginal burning with and without voiding. [place] "itchy" for the past couple of days. Requesting vaginal swabs be repeated including STD screening today. No intercourse since March 2022. Stopped using scented toilet paper, wipes and soaps. 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 Comments: Sexual Activity: Yes; Male Contraception: Tubal Ligation PAST MEDICAL HISTORY Diagnosis Date Acalculous cholecystitis SANTANA (acute kidney injury) ([facility]) 08/05/2018 Anxiety DVT (deep venous thrombosis) ([facility]) 2019 Dysthymic disorder Depression (non-psychotic) Fatty liver 03/30/2020 Gestational diabetes mellitus, class A1 11/17/2016 gestational hypertension History of tobacco use 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 Hypertension Iron deficiency anemia Neuropathy bilateral lower ext Obesity (BMI 30-39.9) ELLEN (obstructive sleep apnea) 09/11/2021 Pap smear abnormality of cervix with ASCUS favoring benign 02/05/2015 Pneumonia 2019 MSSA, pseudomonas depression Type 2 diabetes mellitus without complication, without long-term current use of insulin ([facility]) 03/13/2020 PAST SURGICAL HISTORY Procedure Laterality Date DILATION & CURETTAGE DX&/THER NONOBSTETRIC 2004 Dilation & curettage MIDLINE INSERTION/CONSULT 09/16/2018 TUBAL LIGATION 2018 w/ Filshie clips VAGINAL HYSTERECTOMY UTERUS 250 GM/< 07/15/2018 [facility] FAMILY HISTORY Problem Relation Age of Onset Anxiety disorder Mother Thyroid Mother Hypothyroidism Diabetes Mother other (cellulitis) Mother Bipolar disorder Sister Schizophrenia Sister Hypertension Maternal Aunt Diabetes Maternal Grandfather Hypertension Maternal Grandfather Heart Maternal Grandfather PACEMAKER No Ocular Disease No Family History Social History Tobacco Use Smoking status: Light Smoker Packs/day: 0.50 Years: 15.00 Pack years: 7.50 Types: Cigarettes Last attempt to quit: 07/16/2018 Years since quittin.8 Smokeless tobacco: Never Tobacco comments: with anxiety Vaping Use Vaping Use: Never used Substance Use Topics Alcohol use: No Drug use: No Current Outpatient Medications Medication Sig cetirizine (ZYRTEC) 10 mg tablet Take 1 tablet by mouth once daily. albuterol HFA (PROVENTIL HFA, VENTOLIN HFA) 90 mcg/actuation inhaler Inhale 2 Puffs as instructed every 4 hours as needed for wheezing/shortness of breath. gabapentin (NEURONTIN) 400 mg capsule Take one capsule in the morning, and 3 capsules in the evening. traZODone (DESYREL) 100 mg tablet Take 1 tablet by mouth daily at bedtime. clonazePAM (KLONOPIN) 0.5 mg tablet Take 1 tablet by mouth once daily as needed for up to 30 days. ondansetron orally disintegrating (ZOFRAN ODT) 4 mg disintegrating tablet Take 1 tablet by mouth every 8 hours as needed. dulaglutide (TRULICITY) 0.75 mg/0.5 mL pen injector Inject 0.75 mg subcutaneously one time a week. Inject dose once per week. Discard Pen After Aulmgxbhucqhzld-Oaapaqsxn-IT (BROMFED DM) 2-30-10 mg/5 mL syrup Take 5 mL by mouth four times dailyas needed. topiramate (TOPAMAX) 50 mg tablet Take 1 tablet by mouth once daily. metoprolol tartrate, short acting, (LOPRESSOR) 25 mg tablet Take 0.5 tablets by mouth every 12 hours. magnesium oxide (MAG-OX) 400 mg (241.3 mg magnesium) tablet Take 1 tablet by mouth once daily. atorvastatin (LIPITOR) 40 mg tablet Take 1 tablet by mouth daily at bedtime. For cholesterol. fenofibrate nanocrystallized (TRICOR) 145 mg tablet Take 1 tablet by mouth once daily. riboflavin, vitamin B2, 400 mg tab Take 1 tablet by mouth once daily. QUEtiapine (SEROQUEL) 50 mg tablet Take 1 tablet by mouth daily at bedtime. Lancets lancets Test blood sugar(s) 1 times daily. Dx: Type 2 DM - Controlled E11.9 Insulin: No blood sugar diagnostic (BLOOD GLUCOSE TEST) test strip Test blood sugar(s) 1 times daily. Dx: OtherDM Code R73.03 Insulin: No fluticasone (FLONASE) 50 mcg/actuation nasal spray Use 2 Sprays in each nostril once daily. Rinse mouth after use. ferrous sulfate 325 mg (65 mg iron) tablet Take 1 tablet by mouth twice daily. cyclobenzaprine (FLEXERIL) 10 mg tablet Take 1 tablet by mouth three times daily as needed for muscle spasm. CPAP CPAP 7 cm H2O. Formal mask refitting & work with RT, chin strap, head gear, humidity, heated tubing(GWENDOLYN), lifetime supplies. G47.33 ELLEN blood sugar diagnostic (BLOOD GLUCOSE TEST) test strip Test blood sugar(s) 1 times daily. Dx: Type 2 DM - Controlled E11.9 Insulin: No No current facility-administered medications for this visit. Allergies As of Date: 05/13/2022 Allergen Noted Reaction AMOXICILLIN 05/20/2013 Hives BACTRIM [SULFAMETHOXAZOLE-TRIMETH*07/05/2020 Other: See Comments CELEXA [CITALOPRAM] 04/14/2022 Mental Status Change HEPARIN 08/06/2018 Other: See Comments BLEACH (SODIUM HYPOCHLORITE) 07/17/2018 Rash Fully Assessed 05/13/2022 REVIEW OF SYSTEMS Abdomen: No bloating, early satiety, indigestion, or increased flatulence. No abdominal pain, nausea, vomiting, diarrhea, or constipation. Bladder: No gross hematuria, urinary frequency, urinary urgency, or incontinence. POSITIVE for dysuria- burning with urination Breast: No breast lumps, nipple d/c, overlying skin changes, redness or skin retraction. Expanded ROS: N/A Allergies and current medication updated:Yes EXAM: BP 118/70 Wt 289 lb (131.1kg) LMP 05/03/2018 GENERAL: pleasant, female in no apparent distress HEENT: Normocephalic and atraumatic NECK: Supple and full range of motion DERMATOLOGY: Normal and without lesions BREAST: deferred CHEST: Normal inspiratory effort ABDOMEN: Deferred PELVIC: external genitalia normal, normal Bartholin's glands, urethra, [address]'s glands, no vulvar lesions, no cervical lesions, good vaginal support, physiologic discharge present, normal appearing perineal body and perianal region BIMANUAL: uterus normal size, shape and consistency, no adnexal masses, non- tender, and no cervicalmotion tenderness NEURO: alert and oriented x3,exam grossly non-focal EXTREMITIES: normal ASSESSMENT/PLAN: 1. Vaginal irritation - ICD9: 623.9, ICD10: N89.8 (primary diagnosis) - BACTERIAL VAGINOSIS AMPLIFICATION - LOVE / TRICHOMONAS AMPLIFICATION - GC/CHLAMYDIA DNA DET - T VAGINALIS AMPLIFICATION 2. Vaginal burning - ICD9: 625.8, ICD10: N94.9 - Urine dip- NEGATIVE If swabs negative- discussed trying vaginal moisturizer for dryness, irritation- possible vaginal estrogen? Reviewed vulvar hygiene Shayna Davis APRN.CNM documented in this encounterPark[facility]02-08-2023 Instructions* Patient Instructions* Shayna Davis APRN.CNM - 04/30/2022 4:16 PM EST LUME- products GENERAL VULVAR CARE The goal of vulvar therapy is to keep the vulva dry and free from irritants. Below is a list of items that should be done or avoided for vulvar hygiene. DO'S * Avoid soap when washing the vulva, warm water only. * Dry vulva with a blow dryer on cool setting. * Wear only WHITE, 100% cotton underpants. * Rinse underclothes carefully after washing. * Wash new underclothes before wearing. * Mild soap for washing underclothes - no detergents, especially Tide. * Use soft toilet tissue - WHITE ONLY. * Use tampons for menstrual flow - not deodorized. * Take Aveeno sitz baths daily, if prescribed by physician. DONT'S * Scratch * Use soap, detergents, or fabric softener (liquid or paper). * Use nylon or ventura acetate. * Wear panty hose or panty girdles. * Use perineal pads (Kotex, Modess, etc.). * Engage in activity that causes the perineum to remain wet. * Use Vaseline, oils, greases, bubble bath, bath oils, feminine sprays, etc. * Use talc or powder. * Use douches, unless prescribed by physician. Non-Hormonal Vaginal Lubricants & Vaginal Moisturizers Symptoms of vaginal dryness can be managed by the regular use of vaginal moisturizing agents with supplemental use of vaginal lubricants for sexual intercourse. . Use of vaginal moisturizers and lubricants alone is effective treatment for vaginal dryness or dyspareunia (pain with intercourse) in some patients. Vaginal lubrications- Vaginal lubricants are designed to reduce friction and discomfort from dryness during sexual intercourse. The lubricant is applied inside the vagina and/or on the partner's penis or fingers just before sex. Coconut, [place], Avocado or Peanut oil- natural oils are not recommended for use with latex condoms or diaphragms as they can damage the latex Astroglide- has both water and silicone based KY Jelly- water based Just like me - Pure Romance Almost Naked Good Clean Love - Bio Nude ultra-sensitive Pjur- silicone ID Millennium- silicone Vaginal Moisturizers- Vaginal moisturizers are intended for use routinely, typically two or three days per week, not just during sexual activity. These products are typically bioadhesives. Many moisturizer products are available in pharmacies and online. Restore- [email or web address] Replens Garrett Feminease Moist Again K-Y Liquid beads Products to assist with maintaining vaginal ph IsoFresh www.[employer] BiopHresh Rephresh documented in this encounterParkview [facility]02-08-2023 History of Present illness Narrative* Shayna Davis APRN.CNM - 04/30/2022 3:50 PM EST [place] [employer] offered: Patient declines. Martina is a 36 year old who presents for an annual gynecologic exam with complaints, vaginaldryness, vaginal itching, and vulvar irritation. Patient reports feeling irritation for the past month. She was seen at Urgent Care last week and had vaginal swabs done which returned negative. Usingbaby wipes at times and just recently changed toilet paper to scented paper. Menses: Hysterectomy. 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9) ELLEN (obstructive sleep apnea) 09/11/2021 Pap smear abnormality of cervix with ASCUS favoring benign 02/05/2015 Pneumonia 2019 MSSA, pseudomonas depression Type 2 diabetes mellitus without complication, without long-term current use of insulin ([facility]) 03/13/2020 PAST SURGICAL HISTORY Procedure Laterality Date DILATION & CURETTAGE DX&/THER NONOBSTETRIC 2004 Dilation & curettage MIDLINE INSERTION/CONSULT 09/16/2018 TUBAL LIGATION 2018 w/ Filshie clips VAGINAL HYSTERECTOMY UTERUS 250 GM/< 07/15/2018 [facility] FAMILY HISTORY Problem Relation Age of Onset Anxiety disorder Mother Thyroid Mother Hypothyroidism Diabetes Mother other (cellulitis) Mother Bipolar disorder Sister Schizophrenia Sister Hypertension Maternal Aunt Diabetes Maternal Grandfather Hypertension Maternal Grandfather Heart Maternal Grandfather PACEMAKER No Ocular Disease No Family History SOCIAL HISTORY Social History Tobacco Use Smoking status: Light Smoker Packs/day: 0.50 Years: 15.00 Pack years: 7.50 Types: Cigarettes Last attempt to quit: 07/16/2018 Years since quittin.7 Smokeless tobacco: Never Tobacco comments: with anxiety Vaping Use Vaping Use: Never used Substance Use Topics Alcohol use: No Drug use: No REVIEW OF SYSTEMS Abdomen: No abdominal pain, nausea, vomiting, diarrhea, or constipation. No bloating, early satiety, indigestion, or increased flatulence. Bladder: No dysuria, gross hematuria, urinary frequency, urinary urgency, or incontinence. Breast: No breast lumps, nipple d/c, overlying skin changes, redness or skin retraction. Allergies and current medication updated:Yes EXAM: BP 122/88 Ht 5' 7" (1.70m) Wt 286 lb 12.8 oz (130.1kg) LMP 05/03/2018 BMI 44.91 kg/(m^2). GENERAL: pleasant, female in no apparent distress HEENT: Normocephalic, atraumatic, and mucus membranes moist NECK: Supple and full range of motion DERMATOLOGY: Normal and without lesions BREAST: soft, non-tender, symmetric, no dominant mass, normal nipple-areolar complex, no lymphadenopathy, and no nipple discharge CHEST: Normal inspiratory effort ABDOMEN: soft, non-tender, and no masses PELVIC: external genitalia normal, normal Bartholin's glands, urethra, [address]'s glands, no vulvar lesions, good vaginal support, physiologic discharge present, normal appearing perineal body and perianal region BIMANUAL: no adnexal masses, non-tender, and uterus surgically absent RECTOVAGINAL: deferred. NEURO: alert and oriented x3,exam grossly non-focal EXTREMITIES: normal ASSESSMENT/PLAN: 1) Health maintenance: Pap/HPV- No longer needed- hysterectomy 2019 Nutrition, exercise and routine health maintenance exams reviewed. 2) Contraception: hysterectomy. 3) STD screening: Declined STD check. 4) Reviewed vulvar hygiene and starting PO probiotics Follow up one year or sooner as needed Will notify patient of results and any changes to plan of care Shayna Davis APRN.CNM documented in this [facility] Miscellaneous Notes* Telephone Encounter - Jordana Cisse LPN - 04/22/2022 8:00 AM EST Patient has been identified by name and date of : Yes Requested Prescriptions Pending Prescriptions Disp Refills cetirizine (ZYRTEC) 10 mg tablet 30 tablet 0 Sig: Take 1 tablet by mouth once daily. RX INSTRUCTIONS: Patient aware RX will be sent to pharmacy. No need to notify patient. Follow up 05/15/2022. Jordana Cisse LPN documented in this encounterPark[facility]01-30-2023 Miscellaneous Notes* Telephone Encounter - Martinez Vogel LPN - 04/21/2022 8:24 AM EST Patient phones requesting refills as follows: Requested Prescriptions Pending Prescriptions Disp Refills ondansetron orally disintegrating (ZOFRAN ODT) 4 mg disintegrating tablet 20 tablet 0 Sig: Take 1 tablet by mouth every 8 hours as needed. Please review and advise. Martinez Vogel LPN documented in this [facility]01-30-2023 Miscellaneous Notes* Telephone Encounter - Martinez Vogel LPN - 04/21/2022 8:23 AM EST Patient phones requesting refills as follows: Requested Prescriptions Pending Prescriptions Disp Refills albuterol HFA (PROVENTIL HFA, VENTOLIN HFA) 90 mcg/actuation inhaler 18 g 1 Sig: Inhale 2 Puffs as instructed every 4 hours as needed for wheezing/shortness of breath. Please review and advise. Martinez Vogel LPN documented in this [facility]01-27-2023 Miscellaneous Notes* Telephone Encounter - Reina Maloney LPN - 04/18/2022 12:45 PM EST Patient notified.Reina Maloney LPN * Telephone Encounter - Marta Carlson PA-C - 04/18/2022 11:59 AM EST Please call and let patient know her vaginal swabs were negative. Urine culture is still pending. We will call if that is positive. Follow-up with PCP if symptoms persist. documented in this [facility] Instructions* Patient Instructions* Judith Brown APRN.MARIE - 04/17/2022 5:29 PM EST You can take a probiotic that is meant for gut and vagina health pharmacies usually keep it in the fridge behind pharmacy once a day. Anytime the vaginal pH feels off you should insert boric acid suppository into the vagina or after intercourse. Wash with Dove sensitive skin soap only. documented in this encounterPark[facility]01-26-[facility]23 History of Present illness Narrative* Judith Brown APRN.MARIE - 04/17/2022 4:55 PM EST CC: Patient presents with: Urinary Frequency: Frequency, burning and back pain x 1 week HPI June Trena is a 36 year old female who presents with complaint of possible UTI. These symptomshave been present for 7 days. Associated symptoms: burning and frequency Denies: foul smelling urine, hematuria, pressure, fever, chills, sweats, abdominal pain, and flank pain Treatments: nothing The ROS was otherwise negative. PMH, Medications, labs, allergies, and recent past visits with PCP were reviewed and updated as able. PHYSICAL EXAM: BP 118/82 Pulse 106 Temp 36.4 C (97.5 F) (Tympanic) Resp 18 Wt 129.4 kg (285 lb 3.2 oz) LMP 05/03/2018 (Within Days) SpO2 99% BMI 44.01 kg/m General: Well appearing and alert CV: Regular rate and rhythm without obvious murmur Lungs: clear to auscultation bilaterally Back: straight and symmetric Abdomen: denies pain PAST MEDICAL HISTORY Diagnosis Date Acalculous cholecystitis SANTANA (acute kidney injury) ([facility]) 08/05/2018 Anxiety DVT (deep venous thrombosis) ([facility]) 2019 Dysthymic disorder Depression (non-psychotic) Fatty liver 03/30/2020 Gestational diabetes mellitus, class A1 11/17/2016 gestational hypertension History of tobacco use HIT (heparin-induced thrombocytopenia) 2018 Hypertension Iron deficiency anemia Neuropathy bilateral lower ext Obesity (BMI 30-39.9) ELLEN (obstructive sleep apnea) 09/11/2021 Pap smear abnormality of cervix with ASCUS favoring benign 02/05/2015 Pneumonia 2019 MSSA, pseudomonas depression Type 2 diabetes mellitus without complication, without long-term current use of insulin ([facility]) 03/13/2020 PAST SURGICAL HISTORY Procedure Laterality Date DILATION & CURETTAGE DX&/THER NONOBSTETRIC 2004 Dilation & curettage MIDLINE INSERTION/CONSULT 09/16/2018 TUBAL LIGATION 2018 w/ Filshie clips VAGINAL HYSTERECTOMY UTERUS 250 GM/< 07/15/2018 [facility] ALLERGIES Amoxicillin, Bactrim [Sulfamethoxazole-Trimethoprim], Celexa [Citalopram], Heparin, and Bleach (Sodium Hypochlorite) MEDICATIONS cefdinir (OMNICEF) 300 mg capsule Take 1 capsule by mouth twice daily for 10 days. dulaglutide (TRULICITY) 0.75 mg/0.5 mL pen injector Inject 0.75 mg subcutaneously one time a week. Inject dose once per week. Discard Pen After Vljhaxxxkcfpqdh-Bfjttbfzg-IS (BROMFED DM) 2-30-10 mg/5 mL syrup Take 5 mL by mouth four times dailyas needed. topiramate (TOPAMAX) 50 mg tablet Take 1 tablet by mouth once daily. metoprolol tartrate, short acting, (LOPRESSOR) 25 mg tablet Take 0.5 tablets by mouth every 12 hours. magnesium oxide (MAG-OX) 400 mg (241.3 mg magnesium) tablet Take 1 tablet by mouth once daily. atorvastatin (LIPITOR) 40 mg tablet Take 1 tablet by mouth daily at bedtime. For cholesterol. fenofibrate nanocrystallized (TRICOR) 145 mg tablet Take 1 tablet by mouth once daily. riboflavin, vitamin B2, 400 mg tab Take 1 tablet by mouth once daily. cetirizine (ZYRTEC) 10 mg tablet Take 1 tablet by mouth once daily. traZODone (DESYREL) 100 mg tablet Take 1 tablet by mouth daily at bedtime. busPIRone (BUSPAR) 15 mg tablet Take 1 tablet by mouth three times daily. clonazePAM (KLONOPIN) 0.5 mg tablet Take 1 tablet by mouth once daily as needed for up to 30 days. QUEtiapine (SEROQUEL) 50 mg tablet Take 1 tablet by mouth daily at bedtime. Lancets lancets Test blood sugar(s) 1 times daily. Dx: Type 2 DM - Controlled E11.9 Insulin: No blood sugar diagnostic (BLOOD GLUCOSE TEST) test strip Test blood sugar(s) 1 times daily. Dx: OtherDM Code R73.03 Insulin: No albuterol HFA (PROVENTIL HFA, VENTOLIN HFA) 90 mcg/actuation inhaler Inhale 2 Puffs as instructed every 4 hours as needed for wheezing/shortness of breath. ondansetron orally disintegrating (ZOFRAN ODT) 4 mg disintegrating tablet Take 1 tablet by mouth every 8 hours as needed. fluticasone (FLONASE) 50 mcg/actuation nasal spray Use 2 Sprays in each nostril once daily. Rinse mouth after use. ferrous sulfate 325 mg (65 mg iron) tablet Take 1 tablet by mouth twice daily. cyclobenzaprine (FLEXERIL) 10 mg tablet Take 1 tablet by mouth three times daily as needed for muscle spasm. CPAP CPAP 7 cm H2O. Formal mask refitting & work with RT, chin strap, head gear, humidity, heated tubing(GWENDOLYN), lifetime supplies. G47.33 ELLEN blood sugar diagnostic (BLOOD GLUCOSE TEST) test strip Test blood sugar(s) 1 times daily. Dx: Type 2 DM - Controlled E11.9 Insulin: No gabapentin (NEURONTIN) 400 mg capsule Take one capsule in the morning, and 3 capsules in the evening. FAMILY HISTORY Problem Relation Age of Onset Anxiety disorder Mother Thyroid Mother Hypothyroidism Diabetes Mother other (cellulitis) Mother Bipolar disorder Sister Schizophrenia Sister Hypertension Maternal Aunt Diabetes Maternal Grandfather Hypertension Maternal Grandfather Heart Maternal Grandfather PACEMAKER No Ocular Disease No Family History Social History Tobacco Use Smoking status: Light Smoker Packs/day: 0.50 Years: 15.00 Pack years: 7.50 Types: Cigarettes Last attempt to quit: 07/16/2018 Years since quittin.7 Smokeless tobacco: Never Tobacco comments: with anxiety Vaping Use Vaping Use: Never used Substance Use Topics Alcohol use: No Drug use: No ASSESSMENT/PLAN: 1. Urinary frequency - ICD9: 788.41, ICD10: R35.0 - UA DIP, URINE (POC) - URINE CULTURE - BACTERIAL VAGINOSIS AMPLIFICATION - LOVE / TRICHOMONAS AMPLIFICATION - GC/CHLAMYDIA DNA DET No treatment at this time please treat when test results come back. Prescription instructions reviewed with patient as applicable. Potential red flag symptoms discussed with the patient. Reviewed appropriate action plan to take if red flag symptoms occur. Patient agreeable to treatment plan. Judith Brown APRN.MARIE documented in this encounterPark[facility] Instructions* Patient Instructions* Nallely Butler APRN.CNP - 04/14/2022 4:15 PM EST Start the cefdinir. Let me know if trulicity is not covered. Brom-fed as needed. Recheck in 6 weeks. Home going instructions for Viral Upper Respiratory Infections In General: - Drink lots of fluids - at least one gallon of non-caffeinated liquids per day - Make sure you are eating well - Get plenty of rest - at least 8 hours of sleep per night for adults - ibuprofen 600mg every 8 hours as needed for discomfort - acetaminophen 500mg every 4-6 hours as needed for fever and discomfort. - may alternate ibuprofen and acetaminophen For nasal congestion try: -Vaporizers, Neti Pot, humidifiers, hot showers, and hot fluids help open respiratory and sinus passages. - [place] may offer relief of nasal and head congestion 2-3 times per day as needed. - Sudafed is a safe and effective decongestant for people who do not have high blood pressure. Do not take Sudafed if you have ever been told that you have high blood pressure or hypertension. General dosing guidelines: Immediate release: 60 mg every 4-6 hours; Extended release: 120 mg every 12 hours or 240 mg every 24 hours; maximum: 240 mg/24 hours. For Sore Throat try: - Salt water gargles every 2-3 hours as needed for discomfort - Chloraceptic spray or throat lozenges (Cepacol) For Cough and chest congestion try one of the following: - Mucinex or Robitussin are expectorants. You may take 200-400 mg every 4 hours to a not to exceed 2,400 mg/day OR Extended release tablet: 600-1200 mg every 12 hours, not to exceed 2,400 mg/day - Delsym is a cough suppressant: Oral: 10-20 mg every 4 hours or 30 mg every 6-8 hours OR Extended release: 60 mg twice daily; maximum: 120 mg/day - If you have high blood pressure or hypertension it is safe to take Coricidin HBP Cough & Cold. If you smoke it is advised that you quit smoking. CONTACT YOUR DOCTOR IF: You have fevers for longer than five days or a fever more than 102 degrees You are still sick after 10 days After several days you are getting worse rather than better 4. You develop nausea, vomiting, diarrhea, or a rash. Go to the ER if you - experience pressure or pain in your chest - experience difficulty swallowing - experience difficulty breathing Follow up in 7-10 days or before if your symptoms get worse. documented in this encounterPark[facility]01-[facility]23 History of Present illness Narrative* Nallely Butler APRN.CNP - 04/14/2022 3:32 PM EST This is a 36 year old female who presents today with: Patient presents with: Recheck: Follow up HISTORY OF PRESENT ILLNESS: June Trena is a 36 year old female. Patient presents with: Recheck: Follow up Pt presents today with URI symptoms. Head congestion. Sore throat. Fatigue. Екатерина seltzer cold/flu. Mood: Doing well with psychiatry. Happy with current medication regimen. HTN: Patient is compliant with meds Yes Monitors bp at home: Yes. Denies side effects: Yes. Chest pain: No. Dyspnea: No. Edema: No. Palpitations: No. Syncope: No. Headache: No. Dizziness: No. HYPERLIPIDEMIA: Patient is taking medications: Yes. Patient is watching diet: No. Patient denies myalgias: Yes. Patient denies gi upset: Yes Diabetes: A1C not ran with last labs. 6.6 today in office. PAST MEDICAL HISTORY: PAST MEDICAL HISTORY Diagnosis Date Acalculous cholecystitis SANTANA (acute kidney injury) ([facility]) 08/05/2018 Anxiety DVT (deep venous thrombosis) ([facility]) 2019 Dysthymic disorder Depression (non-psychotic) Fatty liver 03/30/2020 Gestational diabetes mellitus, class A1 11/17/2016 gestational hypertension History of tobacco use HIT (heparin-induced thrombocytopenia) 2018 Hypertension Iron deficiency anemia Neuropathy bilateral lower ext Obesity (BMI 30-39.9) ELLEN (obstructive sleep apnea) 09/11/2021 Pap smear abnormality of cervix with ASCUS favoring benign 02/05/2015 Pneumonia 2019 MSSA, pseudomonas depression Type 2 diabetes mellitus without complication, without long-term current use of insulin ([facility]) 03/13/2020 PAST SURGICAL HISTORY Procedure Laterality Date DILATION & CURETTAGE DX&/THER NONOBSTETRIC 2004 Dilation & curettage MIDLINE INSERTION/CONSULT 09/16/2018 TUBAL LIGATION 2018 w/ Filshie clips VAGINAL HYSTERECTOMY UTERUS 250 GM/< 07/15/2018 [facility] ALLERGIES Amoxicillin, Bactrim [Sulfamethoxazole-Trimethoprim], Celexa [Citalopram], Heparin, and Bleach (Sodium Hypochlorite) MEDICATIONS Current Outpatient Medications Medication Sig topiramate (TOPAMAX) 50 mg tablet Take 1 tablet by mouth once daily. metoprolol tartrate, short acting, (LOPRESSOR) 25 mg tablet Take 0.5 tablets by mouth every 12 hours. magnesium oxide (MAG-OX) 400 mg (241.3 mg magnesium) tablet Take 1 tablet by mouth once daily. atorvastatin (LIPITOR) 40 mg tablet Take 1 tablet by mouth daily at bedtime. For cholesterol. fenofibrate nanocrystallized (TRICOR) 145 mg tablet Take 1 tablet by mouth once daily. riboflavin, vitamin B2, 400 mg tab Take 1 tablet by mouth once daily. cetirizine (ZYRTEC) 10 mg tablet Take 1 tablet by mouth once daily. traZODone (DESYREL) 100 mg tablet Take 1 tablet by mouth daily at bedtime. busPIRone (BUSPAR) 15 mg tablet Take 1 tablet by mouth three times daily. clonazePAM (KLONOPIN) 0.5 mg tablet Take 1 tablet by mouth once daily as needed for up to 30 days. QUEtiapine (SEROQUEL) 50 mg tablet Take 1 tablet by mouth daily at bedtime. Lancets lancets Test blood sugar(s) 1 times daily. Dx: Type 2 DM - Controlled E11.9 Insulin: No blood sugar diagnostic (BLOOD GLUCOSE TEST) test strip Test blood sugar(s) 1 times daily. Dx: OtherDM Code R73.03 Insulin: No albuterol HFA (PROVENTIL HFA, VENTOLIN HFA) 90 mcg/actuation inhaler Inhale 2 Puffs as instructed every 4 hours as needed for wheezing/shortness of breath. ondansetron orally disintegrating (ZOFRAN ODT) 4 mg disintegrating tablet Take 1 tablet by mouth every 8 hours as needed. fluticasone (FLONASE) 50 mcg/actuation nasal spray Use 2 Sprays in each nostril once daily. Rinse mouth after use. gabapentin (NEURONTIN) 400 mg capsule Take one capsule in the morning, and 3 capsules in the evening. ferrous sulfate 325 mg (65 mg iron) tablet Take 1 tablet by mouth twice daily. cyclobenzaprine (FLEXERIL) 10 mg tablet Take 1 tablet by mouth three times daily as needed for muscle spasm. CPAP CPAP 7 cm H2O. Formal mask refitting & work with RT, chin strap, head gear, humidity, heated tubing(GWENDOLYN), lifetime supplies. G47.33 ELLEN blood sugar diagnostic (BLOOD GLUCOSE TEST) test strip Test blood sugar(s) 1 times daily. Dx: Type 2 DM - Controlled E11.9 Insulin: No No current facility-administered medications for this visit. FAMILY HISTORY Problem Relation Age of Onset Anxiety disorder Mother Thyroid Mother Hypothyroidism Diabetes Mother other (cellulitis) Mother Bipolar disorder Sister Schizophrenia Sister Hypertension Maternal Aunt Diabetes Maternal Grandfather Hypertension Maternal Grandfather Heart Maternal Grandfather PACEMAKER No Ocular Disease No Family History Social History Tobacco Use Smoking status: Light Smoker Packs/day: 0.50 Years: 15.00 Pack years: 7.50 Types: Cigarettes Last attempt to quit: 07/16/2018 Years since quittin.7 Smokeless tobacco: Never Tobacco comments: with anxiety Vaping Use Vaping Use: Never used Substance Use Topics Alcohol use: No Drug use: No EXAM: BP 118/82 Pulse 106 Resp 18 Wt 129.7 kg (286 lb) LMP 05/03/2018 (Within Days) SpO2 97% BMI 44.13 kg/m PHYSICAL EXAM: General Appearance: Well appearing, alert, in no acute distress, well-hydrated, well nourished.. Skin: Skin color, texture, turgor normal, no suspicious rashes or lesions. Head: Normocephalic, no masses, lesions, tenderness or abnormalities. Eyes: Anicteric sclera. Pupils are equally round and reactive to light. Extraocular movements are intact. Ears: External ears normal, canals clear, Positive findings: R TM: erythematous, L TM: air/fluid interface visualized. Oropharynx: Lips, mucosa, and tongue normal, teeth and gums normal, oropharynx with redness. Neck: Supple, mild anterior superficial cervical adenopathy. Lungs: Lungs clear to auscultation. No wheezing, rhonchi, rales.. Heart: RRR without murmur, gallop, or rubs. No ectopy. Abdomen: Abdomen soft, non-tender. Bowel sounds normal. No masses, organomegaly. Extremities: No deformities, edema, skin discoloration, clubbing or cyanosis. Good capillary refill. . Neurologic: Gait normal. ASSESSMENT/PLAN: 1. Type 2 diabetes mellitus without complication, without long-term current use of insulin (HCC) - ICD9: 250.00, ICD10: E11.9 (primary diagnosis) Controlled. - Add trulicity - HEMOGLOBIN A1C (POC) - TRULICITY 0.75 MG/0.5 ML SUBCUTANEOUS PEN INJECTOR 2. Sore throat - ICD9: 462, ICD10: J02.9 - suspect viral - Discussed supportive care treatment with fluids, rest and analgesia. - The patient may also use OTC cough and cold meds as needed. - STREP A MOLECULAR (POC) - COVID WITH FLUA+B, ROUTINE 3. Viral upper respiratory tract infection - ICD9: 465.9, ICD10: J06.9 - Discussed viral etiology and rationale for treatment. - Symptomatic treatment with prn analgesia - Supportive care with fluids and rest - The patient may also use OTC cough and cold meds as needed. - STREP A MOLECULAR (POC) - COVID WITH FLUA+B, ROUTINE - [id number] 2 MG-30 MG-10 MG/5 ML ORAL SYRUP 4. Acute otitis media, right - ICD9: 382.9, ICD10: H66.91 - Will begin treatment with as per antibiotic as written, see orders - CEFDINIR 300 MG CAPSULE 5. Stage 3a chronic kidney disease (HCC) - ICD9: 585.3, ICD10: N18.31 - eGFR: Stable - Counseled on avoiding regular use of NSAIDs, adequate hydration, potential risk of IV dye - Recommend maintaining A1c < 7% - Recommend maintaining blood pressure under 130/80 6. Anxiety - ICD9: 300.00, ICD10: F41.9 Stable. Continue per psychiatry. Discussed treatment plan and patient voices understanding. Patient's questions answered appropriately. Medications and potential side effects were discussed and patient voices understanding. Return to the office as scheduled or as needed for worsening/no improvement. Nallely Butler APRN.HAMMER SETTER documented in this encounterPark[facility]01-13-2023 Miscellaneous Notes* Telephone Encounter - Trev Acuna MA - 04/04/2022 12:47 PM EST Spoke to Client Lab Services-are able to add on A1C & Lipid panel to morning draw. Patient notified. Trev Acuna MA * Telephone Encounter - Ana Kingsley MD - 04/04/2022 11:16 AM EST A1c ordered; also I added Lipid profile Ana Kingsley MD * Telephone Encounter - Joanie Alves LPN - 04/03/2022 8:18 AM EST Pt requesting HGB A1C. Please let pt know when orders are in so she can get done before her apt. Joanie Alves LPN * Telephone Encounter - Migel Verdugo PA-C - 04/03/2022 6:44 AM EST Due to schedule with PCP Please complete fasting lab prior. Refill on 04/02/22 CBC COMP METABOLIC PANEL The following approved medication requests have been transmitted electronically. Requested Prescriptions Signed Prescriptions Disp Refills topiramate (TOPAMAX) 50 mg tablet 30 tablet 1 Sig: Take 1 tablet by mouth once daily. Authorizing Provider: Migel VERDUGO PA-C * Telephone Encounter - Precious Dash LPN - 04/02/2022 6:38 PM EST Patient phones requesting refills as follows: Requested Prescriptions Pending Prescriptions Disp Refills topiramate (TOPAMAX) 50 mg tablet 30 tablet 1 Sig: Take 1 tablet by mouth once daily. VITA-02/25/22 Labs-05/09/21 NOV-none med filled 02/03/22 Please review and advise. Precious Dash LPN documented in this encounterParkview [facility]01-03-2023 Miscellaneous Notes* Telephone Encounter - Lisbet Carpenter APRN.HAMMER SETTER - 03/25/2022 3:37 PM EST The following approved medication requests have been transmitted electronically. Requested Prescriptions Pending Prescriptions Disp Refills atorvastatin (LIPITOR) 40 mg tablet 90 tablet 3 Sig: Take 1 tablet by mouth daily at bedtime. For cholesterol. fenofibrate nanocrystallized (TRICOR) 145 mg tablet 90 tablet 3 Sig: Take 1 tablet by mouth once daily. Lisbet Carpenter APRN.HAMMER SETTER * Telephone Encounter - Nicolasa Au - 03/25/2022 1:37 PM EST Patient called to see if these scripts can be sent krish * Telephone Encounter - Katarina Ivey LPN - 03/21/2022 4:21 PM EST Patient phones requesting refills as follows: Requested Prescriptions Pending Prescriptions Disp Refills atorvastatin (LIPITOR) 40 mg tablet 90 tablet 3 Sig: Take 1 tablet by mouth daily at bedtime. For cholesterol. fenofibrate nanocrystallized (TRICOR) 145 mg tablet 90 tablet 3 Sig: Take 1 tablet by mouth once daily. VITA 02/25/22 NOV no upcoming appt noted Please review and advise. Katarina Ivey LPN documented in this encounterPark[facility] Miscellaneous Notes* Telephone Encounter - Lisbet Carpenter APRN.MARIE - 03/25/2022 3:35 PM EST The following approved medication requests have been transmitted electronically. Requested Prescriptions Pending Prescriptions Disp Refills riboflavin, vitamin B2, 400 mg tab 30 tablet 5 Sig: Take 1 tablet by mouth once daily. Lisbet Carpenter APRN.MARIE * Telephone Encounter - Nicolasa Au - 03/25/2022 1:36 PM EST Patient called to see if this rx can be sent krish * Telephone Encounter - Martinez Vogel LPN - 03/25/2022 10:23 AM EST Patient phones requesting refills as follows: Requested Prescriptions Pending Prescriptions Disp Refills riboflavin, vitamin B2, 400 mg tab 30 tablet 5 Sig: Take 1 tablet by mouth once daily. VITA 02/25/22 NOV no upcoming appt Please review and advise. Martinez Vogel LPN documented in this encounterPark[facility]12-29-2022 Instructions* Patient Instructions* Elin Dotson APRN.CNP - 03/20/2022 11:05 AM EST Hello June, It was good to talk with you today. Below is a summary of the plan that we discussed during your appointment for reference. Of course, if you have any questions or concerns do not hesitate to reach out to me via a message or call. Best, Elin Dotson APRN.CNP PLAN AND FOLLOW UP: YOU SHOULD SEEK IMMEDIATE MEDICAL ATTENTION AT THE NEAREST EMERGENCY DEPARTMENT OR BY CALLING 911, IF ANY OF THE FOLLOWING OCCURS: - New or worsening thoughts of harming yourself (suicidal thoughts) or others (homicidal thoughts) - Not feeling safe at home or worrying about your ability to remain safe at home If you are having thoughts of harming yourself or others, then you can: - Call the National Suicide Hotline at 2-787-RMKQKYW ( ) or 9-878-861-TALK (5990) - Text 4HBRM to 332485 Medication Update: Trazodone 100 mg - take 1 tablet at bedtime. Buspar 15 mg - take 1 tablet three times daily. Continue Seroquel at the same dose. Utilize Klonopin only as needed for episodes of overwhelming anxiety. Other: - You can go to [facility] to find a therapist in your area or a therapist who is willing to see patients virtually and accepts your insurance. Next appointment: --Schedule in 2 months or sooner if needed -- You may call the department appointment line at [phone] to schedule your appointment. -- Please call my nurse Jordana at [phone] or send me a message in [employer]With with any questions or concerns between appointments. documented in this encounterParkview Health [facility]12-29-2022 History of Present illness Narrative* Elin Dotson APRN.[facility] - 03/20/2022 10:34 AM EST Images from the original note were not included. PSYC FOLLOW UP - PSYCHIATRIC PROGRESS NOTE DIAGNOSIS: Panic disorder with agoraphobia MDD, recurrent, moderate GAF: -60-51 Moderate symptoms or moderate difficulty in social, occupational or school functioning. TREATMENT PLAN: Increase Trazodone to address sleep difficulties. Discontinue Lexapro due to side effects and as patient already stopped taking the medication. Restart Buspar to address patient's anxiety. Continue Seroquel at the same dose. Utilize Klonopin as needed for overwhelming episodes of anxiety. Follow up in 2 months. Medication Update: Trazodone 100 mg - take 1 tablet at bedtime. Buspar 15 mg - take 1 tablet three times daily. Continue Seroquel at the same dose. Utilize Klonopin only as needed for episodes of overwhelming anxiety. The effects and side effects of all the medications were reviewed in detail with the patient. She is in agreement with the treatment plan and aware to reach out with any questions, concerns, or worsening of symptoms prior to the next appointment. PDMP report was reviewed and found to be appropriatewithout any signs of misuse or diversion. CC: Follow up regarding mood and anxiety With the patient consent, visit was performed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 Anxiety disorder Mother Thyroid Mother Hypothyroidism Diabetes Mother other (cellulitis) Mother Bipolar disorder Sister Schizophrenia Sister Hypertension Maternal Aunt Diabetes Maternal Grandfather Hypertension Maternal Grandfather Heart Maternal Grandfather PACEMAKER No Ocular Disease No Family History Social History Tobacco Use Smoking status: Light Smoker Packs/day: 0.50 Years: 15.00 Pack years: 7.50 Types: Cigarettes Last attempt to quit: 07/16/2018 Years since quittin.5 Smokeless tobacco: Never Tobacco comments: with anxiety Vaping Use Vaping Use: Never used Substance Use Topics Alcohol use: No Drug use: No Review of Systems Constitutional: Negative for fever. HENT: Positive for congestion, ear pain and sinus pain. Negative for ear discharge, nosebleeds and sore throat. Respiratory: Negative for cough, shortness of breath and wheezing. Musculoskeletal: Negative for neck pain. Skin: Negative for itching and rash. Neurological: Positive for dizziness. Negative for headaches. Objective Blood pressure 112/78, pulse 102, temperature 36.4 C (97.5 F), temperature source Tympanic, resp. rate 16, weight 127.6 kg (281 lb 3.2 oz), last menstrual period 05/03/2018, SpO2 97 %. Physical Exam Constitutional: General: She is not in acute distress. Appearance: She is not toxic-appearing or diaphoretic. HENT: Head: Normocephalic and atraumatic. Right Ear: Hearing, ear canal and external ear normal. Tympanic membrane is erythematous (very slight incenter). Left Ear: Hearing, ear canal and external ear normal. Nose: Nose normal. Mouth/Throat: Pharynx: Uvula midline. No pharyngeal swelling, oropharyngeal exudate, posterior oropharyngeal erythema or uvula swelling. Eyes: General: Lids are normal. No scleral icterus. Right eye: No discharge. Left eye: No discharge. Conjunctiva/sclera: Conjunctivae normal. Pupils: Pupils are equal, round, and reactive to light. Neck: Trachea: Trachea normal. Cardiovascular: Rate and Rhythm: Normal rate and regular rhythm. Heart sounds: Normal heart sounds. Pulmonary: Effort: Pulmonary effort is normal. Breath sounds: Normal breath sounds. Musculoskeletal: Cervical back: Normal range of motion and neck supple. Lymphadenopathy: Cervical: No cervical adenopathy. Right cervical: No superficial cervical adenopathy. Left cervical: No superficial cervical adenopathy. Skin: Findings: No rash. Neurological: Mental Status: She is alert and oriented to person, place, and time. ASSESSMENT/PLAN: 1. Sinus pressure - ICD9: 478.19, ICD10: J34.89 (primary diagnosis) Start steroids and flonase and f/u if s/s persist/worsen - Supportive care with plenty of fluids, rest, and analgesia prn. - Follow up in 5-7 days if symptoms persist or worsen. - FLUTICASONE PROPIONATE 50 MCG/ACTUATION NASAL SPRAY,SUSPENSION 2. ETD (Eustachian tube dysfunction), bilateral - ICD9: 381.81, ICD10: H69.83 -use medication as prescribed -follow up if symptoms persist, worsen, change - FLUTICASONE PROPIONATE 50 MCG/ACTUATION NASAL SPRAY,SUSPENSION Lela Mcdaniel APRN.MARIE documented in this encounterPark[facility]11-01-2022 Miscellaneous Notes* Telephone Encounter - Martinez Vogel LPN - 01/21/2022 12:57 PM EDT Patient phones requesting refills as follows: Requested Prescriptions Pending Prescriptions Disp Refills albuterol HFA (PROVENTIL HFA, VENTOLIN HFA) 90 mcg/actuation inhaler 18 g 1 Sig: Inhale 2 Puffs as instructed every 4 hours as needed for wheezing/shortness of breath. Please review and advise. Martinez Vogel LPN documented in this encounterPark[facility]11-01-2022 Miscellaneous Notes* Telephone Encounter - Nathalia Alcocer LPN - 01/21/2022 12:51 PM EDT Patient has been identified by name and date of : Yes Patient phones for refill(s): Requested Prescriptions Pending Prescriptions Disp Refills ondansetron orally disintegrating (ZOFRAN ODT) 4 mg disintegrating tablet 20 tablet 0 Sig: Take 1 tablet by mouth every 8 hours as needed. Refused Prescriptions Disp Refills fluticasone (FLONASE) 50 mcg/actuation nasal spray 1 Each 5 Sig: Use 1 Meridian in each nostril once daily. Date of last office visit in primary care: 01/02/22 Please advise. Thank you. Nathalia Alcocer LPN documented in this encounterPark[facility]11-01-2022 Miscellaneous Notes* Telephone Encounter - Jordana Cisse LPN - 01/21/2022 12:50 PM EDT Patient has been identified by name and date of : Yes Requested Prescriptions Pending Prescriptions Disp Refills clonazePAM (KLONOPIN) 0.5 mg tablet 30 tablet 0 Sig: Take 1 tablet by mouth once daily as needed for up to 30 days. QUEtiapine (SEROQUEL) 50 mg tablet 90 tablet 0 Sig: Take 1 tablet by mouth daily at bedtime. RX INSTRUCTIONS: Patient aware RX will be sent to pharmacy. No need to notify patient. Follow up 03/20/2022. Jordana Cisse LPN documented in this encounterPark[facility]11-01-2022 Miscellaneous Notes* Telephone Encounter - Keke Viveros APRN.CNP - 01/21/2022 12:44 PM EDT Summary: GBPN 400 mg and 100 mg Refilled The following approved medication requests have been transmitted electronically. Requested Prescriptions Signed Prescriptions Disp Refills gabapentin (NEURONTIN) 100 mg capsule 60 capsule 2 Sig: Take 2 capsules by mouth once daily for 90 days. This prescription is in additional to the 400mg dosing prescription. Authorizing Provider: KEKE VIVEROS gabapentin (NEURONTIN) 400 mg capsule 120 capsule 2 Sig: Take one capsule in the morning, and 3 capsules in the evening. Authorizing Provider: KEKE VIVEROS APRN.CNP PDMP website checked and validated. All prescriptions have been APPROPRIATELY filled. No suspiciousactivity was identified. 01/21/2022 by Keke Viveros APRN.MARIE * Telephone Encounter - India Abel RN - 01/21/2022 12:24 PM EDT VITA 05/09/2021 [employer] message sent to patient to schedule follow up appointment IMPRESSION: Insomnia due to other mental disorder PDMP website checked and validated. All prescriptions have been APPROPRIATELY filled. No suspiciousactivity was identified. 05/09/2021 by Trev June APRN.MARIE Albrecht is a 35 year old female who presents for ELLEN on PAP therapy, but complains of a magnitude of symptoms including insomnia, hypersomnia, chronic pain throughout body including her legs,and RLS type symptoms. This is her initial follow up since establishing in sleep medicine June of last year. She has a psychiatrist and is currently taking Ativan, Lexapro, seroquel, & Trazodone. She states she is quite tired during the day in light of great sleep apnea control with nightly use of CPAP 7 cm H2O. PLAN: Ellen (obstructive sleep apnea) (primary encounter diagnosis) - Continue CPAP at 7 cmH2O. - Remember to clean your mask and equipment regularly, as directed. - You should be eligible for new supplies approximately every 3-6 months, depending on your insurance coverage. Contact your [employer] company for new supplies as needed. Rls (restless legs syndrome) Neuropathy Vitamin d deficiency Vitamin b deficiency Elevated ferritin - Nonmedical therapy for restless legs syndrome includes : cold/warm compresses, warm/hot baths or showers, gentle massage, mild leg stretching at nighttime, or magnesium supplements ( 250- 1000 mg at nighttime daily). Mentally alerting activities help too. Note the caffeine, alcohol, nicotine, antidepressants, anti-nausea meds and antihistamines can cause or worsen symptoms. - Continue Gabapentin 400 mg in the morning and 1200 mg HS - Add 100 mg twice daily for breakthrough symptoms at work - Discussed SE and ADRs - Additional labs ordered - Consult General neurology for further testing, I.e. EMG Chronic fatigue syndrome Hypersomnia due to medical condition Depression, unspecified depression type Class 3 severe obesity with body mass index (bmi) of 40.0 to 44.9 in adult, unspecified obesity type, unspecified whether serious comorbidity present (hcc) Consider the MSLT, but will need clearance from psychiatry. Patient will need to work with mental health provider if she was interested in this testing to be off of Ativan, Lexapro, seroquel, & Trazodone for 2 weeks prior to testing. With PHQ-9 score as elevated as it is, I do not feel comfortable allowing patient to stop her current medication regimen. Furthermore Narcolepsy triad is negative on assessment, making this differential dx of low probability. - Polysomnogram to evaluate for obstructive sleep apnea (and other sleep disorders) and to ensure adequate sleep, followed by a daytime sleep study (Multiple Sleep Latency Test - MSLT) to evaluate for narcolepsy or idiopathic hypersomnia. - Please fill out sleep logs for 2 weeks prior to sleep studies and bring them with you to give to the camera technician. - A urine tox screen will be done on morning before the daytime sleep study starts. - The MSLT will be canceled if the overnight sleep study shows significant sleep apnea or inadequate sleep. - Stop taking Ativan, Lexapro, seroquel, & Trazodone before the sleep studies, for at least 2 weeks. - Avoid driving if drowsy. Would recommend that if you are dozing off while driving, that you do not drive until your sleepiness is appropriately treated. - Will reach out to psychiatry team to review F/U 3 - 6 months Trev June APRN.HAMMER SETTER documented in this encounterPark[facility]11-01-2022 Miscellaneous Notes* Telephone Encounter - Phuong Lakhani - 01/21/2022 9:27 AM EDT 1 month supply sent yesterday 01/20/22 documented in this encounterPark[facility]10-26-2022 Miscellaneous Notes* Telephone Encounter - Gilberto Acosta RN - 01/15/2022 11:42 AM EDT Last Office Visit: 05.09.2021 with [facility] virtual Future Office Visit: not scheduled, MyChart message sent to patient. Multiple messages sent advising patient to follow up in person with any of the Nurse Practitioners. Trev also stated patient could have someone else manage refill, (PCP or psychiatry). IMPRESSION: Insomnia due to other mental disorder PDMP website checked and validated. All prescriptions have been APPROPRIATELY filled. No suspiciousactivity was identified. 05/09/2021 by Trev June APRN.HAMMER SETTER Martina Albrecht is a 35 year old female who presents for ELLEN on PAP therapy, but complains of a magnitude of symptoms including insomnia, hypersomnia, chronic pain throughout body including her legs,and RLS type symptoms. This is her initial follow up since establishing in sleep medicine June of last year. She has a psychiatrist and is currently taking Ativan, Lexapro, seroquel, & Trazodone. She states she is quite tired during the day in light of great sleep apnea control with nightly use of CPAP 7 cm H2O. PLAN: Ellen (obstructive sleep apnea) (primary encounter diagnosis) - Continue CPAP at 7 cmH2O. - Remember to clean your mask and equipment regularly, as directed. - You should be eligible for new supplies approximately every 3-6 months, depending on your insurance coverage. Contact your [employer] company for new supplies as needed. Rls (restless legs syndrome) Neuropathy Vitamin d deficiency Vitamin b deficiency Elevated ferritin - Nonmedical therapy for restless legs syndrome includes : cold/warm compresses, warm/hot baths or showers, gentle massage, mild leg stretching at nighttime, or magnesium supplements ( 250- 1000 mg at nighttime daily). Mentally alerting activities help too. Note the caffeine, alcohol, nicotine, antidepressants, anti-nausea meds and antihistamines can cause or worsen symptoms. - Continue Gabapentin 400 mg in the morning and 1200 mg HS - Add 100 mg twice daily for breakthrough symptoms at work - Discussed SE and ADRs - Additional labs ordered - Consult General neurology for further testing, I.e. EMG Chronic fatigue syndrome Hypersomnia due to medical condition Depression, unspecified depression type Class 3 severe obesity with body mass index (bmi) of 40.0 to 44.9 in adult, unspecified obesity type, unspecified whether serious comorbidity present (hcc) Consider the MSLT, but will need clearance from psychiatry. Patient will need to work with mental health provider if she was interested in this testing to be off of Ativan, Lexapro, seroquel, & Trazodone for 2 weeks prior to testing. With PHQ-9 score as elevated as it is, I do not feel comfortable allowing patient to stop her current medication regimen. Furthermore Narcolepsy triad is negative on assessment, making this differential dx of low probability. - Polysomnogram to evaluate for obstructive sleep apnea (and other sleep disorders) and to ensure adequate sleep, followed by a daytime sleep study (Multiple Sleep Latency Test - MSLT) to evaluate for narcolepsy or idiopathic hypersomnia. - Please fill out sleep logs for 2 weeks prior to sleep studies and bring them with you to give to the camera technician. - A urine tox screen will be done on morning before the daytime sleep study starts. - The MSLT will be canceled if the overnight sleep study shows significant sleep apnea or inadequate sleep. - Stop taking Ativan, Lexapro, seroquel, & Trazodone before the sleep studies, for at least 2 weeks. - Avoid driving if drowsy. Would recommend that if you are dozing off while driving, that you do not drive until your sleepiness is appropriately treated. - Will reach out to psychiatry team to review F/U 3 - 6 months Trev June APRN.HAMMER SETTER documented in this encounterParkview [facility]10-13-2022 History of Present illness Narrative* Ana Kingsley MD - 01/02/2022 11:40 AM EDT Chief Complaint Patient presents with: Weight Problem: Wants to restart Adipex HPI Martina Mario Trena is a 36 year old female who presents here today for weight loss. Established pt of Nallely Butler CNP here today to discuss weight loss. Previously seen in 2020. Weight: Pt requesting to restart Adipex and Topamax. Pt took this previously back in July 2020, but due to not following up as instructed with medication, she was not able to continue the medication. She felt that both the Adipex and Topamax worked well for her in the past. Concerned that the Seroquel might be contributing to the weight gain. She follows with Elin. No longer on the Lexapro. She doesn't feel that the Seroquel is even helpful (advised pt to discuss Seroquel with Elin). Believes that both the Seroquel and lexapro together caused weight gain. She does try to watch diet; limits fatty foods, no pop, limits carbs, drinks water and coffee with sugar free creamer. She states she does not eat a lot. Is eating high protein, fruits, vegetables, whole grains. No regular exercise regimen but is busy at work. 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 Past medical history, appointments, medications, allergies reviewed. Previous Medical History PAST MEDICAL HISTORY Diagnosis Date Acalculous cholecystitis SANTANA (acute kidney injury) ([facility]) 08/05/2018 Anxiety DVT (deep venous thrombosis) ([facility]) 2018 Dysthymic disorder Depression (non-psychotic) Fatty liver 03/30/2020 Gestational diabetes mellitus, class A1 11/17/2016 gestational hypertension History of tobacco use HIT (heparin-induced thrombocytopenia) 2018 Hypertension Iron deficiency anemia Neuropathy bilateral lower ext Obesity (BMI 30-39.9) ELLEN (obstructive sleep apnea) 09/11/2021 Pap smear abnormality of cervix with ASCUS favoring benign 02/05/2015 Pneumonia 2019 MSSA, pseudomonas depression Type 2 diabetes mellitus without complication, without long-term current use of insulin ([facility]) 03/13/2020 Previous Surgical History PAST SURGICAL HISTORY Procedure Laterality Date DILATION & CURETTAGE DX&/THER NONOBSTETRIC 2004 Dilation & curettage MIDLINE INSERTION/CONSULT 09/16/2018 TUBAL LIGATION 2018 w/ Filshie clips VAGINAL HYSTERECTOMY UTERUS 250 GM/< 07/15/2018 TV[facility] Family History FAMILY HISTORY Problem Relation Age of Onset Anxiety disorder Mother Thyroid Mother Hypothyroidism Diabetes Mother other (cellulitis) Mother Bipolar disorder Sister Schizophrenia Sister Hypertension Maternal Aunt Diabetes Maternal Grandfather Hypertension Maternal Grandfather Heart Maternal Grandfather PACEMAKER No Ocular Disease No Family History Patient Allergies ALLERGIES Allergen Reactions Amoxicillin Hives Bactrim [Sulfametho* Other: See Comments nausea Heparin Other: See Comments HIT Bleach (Sodium Hypo* Rash Skin irritation, itching Current Medications Current Outpatient Medications on File Prior to Visit Medication Sig ferrous sulfate 325 mg (65 mg iron) tablet Take 1 tablet by mouth twice daily. clonazePAM (KLONOPIN) 0.5 mg tablet Take 1 tablet by mouth once daily as needed for up to 30 days. cetirizine (ZYRTEC) 10 mg tablet Take 1 tablet by mouth once daily. traZODone (DESYREL) 50 mg tablet Take 1 tablet by mouth daily at bedtime. escitalopram oxalate (LEXAPRO) 20 mg tablet Take 1 tablet by mouth once daily. QUEtiapine (SEROQUEL) 50 mg tablet Take 1 tablet by mouth daily at bedtime. ondansetron orally disintegrating (ZOFRAN ODT) 4 mg disintegrating tablet Take 1 tablet by mouth every 8 hours as needed. albuterol HFA (PROVENTIL HFA, VENTOLIN HFA) 90 mcg/actuation inhaler Inhale 2 Puffs as instructed every 4 hours as needed for wheezing/shortness of breath. predniSONE (DELTASONE) 10 mg tablet Take 4 tabs daily for 3 days, then 2 tabs daily for 3 days, then 1 tab daily for 3 days with food. cyclobenzaprine (FLEXERIL) 10 mg tablet Take 1 tablet by mouth three times daily as needed for muscle spasm. fluticasone (FLONASE) 50 mcg/actuation nasal spray Use 1 Meridian in each nostril once daily. gabapentin (NEURONTIN) 400 mg capsule Take one capsule in the morning, and 3 capsules in the evening. metoprolol tartrate, short acting, (LOPRESSOR) 25 mg tablet Take 0.5 tablets by mouth every 12 hours. magnesium oxide (MAG-OX) 400 mg (241.3 mg magnesium) tablet Take 1 tablet by mouth once daily. riboflavin, vitamin B2, 400 mg tab Take 1 tablet by mouth once daily. Lancets lancets Test blood sugar(s) 1 times daily. Dx: Type 2 DM - Controlled E11.9 Insulin: No blood sugar diagnostic (BLOOD GLUCOSE TEST) test strip Test blood sugar(s) 1 times daily. Dx: OtherDM Code R73.03 Insulin: No gabapentin (NEURONTIN) 100 mg capsule Take 2 capsules by mouth once daily for 90 days. This prescription is in additional to the 400 mg dosing prescription. (Patient taking differently: Take 200 mg by mouth as needed. This prescription is in additional to the 400 mg dosing prescription.) atorvastatin (LIPITOR) 40 mg tablet Take 1 tablet by mouth daily at bedtime. For cholesterol. fenofibrate nanocrystallized (TRICOR) 145 mg tablet Take 1 tablet by mouth once daily. CPAP CPAP 7 cm H2O. Formal mask refitting & work with RT, chin strap, head gear, humidity, heated tubing(GWENDOLYN), lifetime supplies. G47.33 ELLEN blood sugar diagnostic (BLOOD GLUCOSE TEST) test strip Test blood sugar(s) 1 times daily. Dx: Type 2 DM - Controlled E11.9 Insulin: No No current facility-administered medications on file prior to visit. Social History Social History Tobacco Use Smoking status: Light Smoker Packs/day: 0.50 Years: 15.00 Pack years: 7.50 Types: Cigarettes Last attempt to quit: 07/16/2018 Years since quittin.4 Smokeless tobacco: Never Tobacco comments: with anxiety Vaping Use Vaping Use: Never used Substance Use Topics Alcohol use: No Drug use: No EXAM: BP 120/78 Pulse 78 Resp 16 Ht 171.5 cm (5' 7.5") Wt 127.1 kg (280 lb 3.2 oz) LMP 05/03/2018 (Within Days) BMI 43.24 kg/m General Appearance: Well appearing, alert, in no acute distress, well-hydrated, well nourished. andMorbidly obese. Lungs: Lungs clear to auscultation. No wheezing, rhonchi, rales.. Heart: RRR without murmur, gallop, or rubs. No ectopy. Health Maintenance List HEPATITIS B(1 of 3 - 3-dose series) Never done COVID-19 VACCINE(1) Never done BP CONTROLLED (<130/80) Never done PNEUMOCOCCAL(2 - PCV) due on 10/29/2019 DILATED RETINAL EXAM due on 03/20/2021 URINE ALBUMIN:CREATININE RATIO due on 04/02/2021 LDL CHOLESTEROL due on 07/23/2021 HBA1C due on 11/06/2021 INFLUENZA(1) due on 11/21/2021 DIABETIC FOOT EXAM due on 06/03/2022 ANNUAL PCP TEAM CHRONIC DISEASE VISIT due on 06/03/2022 PAP TESTING due on 03/19/2023 HPV TESTING due on 03/19/2023 DTAP,TDAP,TD(2 - Td or Tdap) due on 10/11/2024 HEPATITIS C SCREENING Completed HIV SCREENING Completed Data reviewed None ASSESSMENT/PLAN: 1. Obesity, Class II, BMI 35-39.9 - ICD9: 278.00, ICD10: E66.9 Weight increasing Start Adipex 37.5 mg daily Recommend healthy diet and exercise Follow up in 1 month. I agree with the Chief Complaint, ROS, and Past Histories independently gathered by the clinical phlebotomy support tech and the remaining scribed note accurately describes my personal service to the patient. Medical Decision Making: Problems: Low: Stable chronic illness Risk: Moderate: Drug management Medical Decision Making Level: 3 - Low Ana Kingsley MD The documentation for this note was completed by Natacha Buchanan Ma acting as scribe for Ana Kingsley MD. January 02, 2022 11:51 AM. Natacha Buchanan Ma documented in this encounterPark[facility] Miscellaneous Notes* Telephone Encounter - Sarah Lowe APRN.CNP - 12/02/2021 11:41 AM EDT Rx sent to pharmacy for flagyl. Sarah Lowe APRN.CNP documented in this encounterParkview [facility]09-12-2022 Miscellaneous Notes* Telephone Encounter - Martinez Vogel LPN - 12/02/2021 11:06 AM EDT Patient phones requesting refills as follows: Requested Prescriptions Pending Prescriptions Disp Refills albuterol HFA (PROVENTIL HFA, VENTOLIN HFA) 90 mcg/actuation inhaler 18 g 1 Sig: Inhale 2 Puffs as instructed every 4 hours as needed for wheezing/shortness of breath. VITA 06/03/21 *Pt no showed appt on 09/09/21 NOV no upcoming appt Please review and advise. Martinez Vogel LPN documented in this encounterParkview [facility]09-11-2022 Miscellaneous Notes* Telephone Encounter - Anamaria Alves LPN - 12/01/2021 12:01 PM EDT Phone call placed patient advised (see prior provider encounter) Patient verbalized understanding, agreed with plan of care. Anamaria Alves LPN * Telephone Encounter - Sarah Lowe APRN.CNP - 12/01/2021 11:28 AM EDT Please let patient know that one vaginal culture was positive for BV, not sexually transmitted. Rx sent to pharmacy [facility] - for metronidazole - do not use alcohol while taking. Follow up with [facility] if continues. Sarah Lowe APRN.CNP * Telephone Encounter - Sarah Lowe APRN.CNP - 11/30/2021 9:18 AM EDT Order created, patient can have done before noon today. Sarah Lowe APRN.CNP * Telephone Encounter - Anamaria Alves LPN - 11/29/2021 7:35 PM EDT Phone call placed patient advised (see prior provider encounter) Patient verbalized understanding, requested urine culture order to stop by the lab. Anamaria Alves LPN * Telephone Encounter - Sarah Lowe APRN.CNP - 11/29/2021 4:53 PM EDT Please notify patient that urine culture showed mixture of bacteria which suggests possible contamination upon collection. If still having symptoms she will need to return to provide another specimen. If improving with treatment for lower back pain, complete treatment follow up with PCP as needed. Thank you. Sarah Lowe CNP documented in this encounterPark[facility]09-10-2022 Instructions* Patient Instructions* Sarah Lowe APRN.CNP - 11/30/2021 2:13 PM EDT For ear: Zyrtec 10 mg By mouth daily at bedtime Flonase 2 sprays in each nostril once a day Will send vaginal cultures, and treat based on results Urine culture sent, will call if treatment needed. documented in this encounterParkview [facility]09-10-2022 History of Present illness Narrative* Sarah Lowe APRN.CNP - 11/30/2021 1:59 PM EDT Subjective The history is provided by the patient. No anglesmith helper was used. HPI June Trena is a 35 year old female who presents today for CC of vaginal discharge, with noodor or itching. She was in 2 days ago for UTI symptoms, with urine culture down that showed contamination - will repeat culture today. She states she was from for 4 months, desiresstd testing. No known exposure. She also is having left ear pressure, desires to have ear checked. BP 118/82 Pulse 90 Temp 36.2 C (97.1 F) Resp 18 Wt 120.7 kg (266 lb) LMP 05/03/2018 (Within Days) SpO2 97% BMI 40.45 kg/m Social History Tobacco Use Smoking status: Light Smoker Packs/day: 0.50 Years: 15.00 Pack years: 7.50 Types: Cigarettes Last attempt to quit: 07/16/2018 Years since quittin.3 Smokeless tobacco: Never Tobacco comments: with anxiety Vaping Use Vaping Use: Never used Substance Use Topics Alcohol use: No Drug use: No PAST MEDICAL HISTORY Diagnosis Date Acalculous cholecystitis SANTANA (acute kidney injury) ([facility]) 08/05/2018 Anxiety DVT (deep venous thrombosis) ([facility]) 2019 Dysthymic disorder Depression (non-psychotic) Fatty liver 03/30/2020 Gestational diabetes mellitus, class A1 11/17/2016 gestational hypertension History of tobacco use HIT (heparin-induced thrombocytopenia) ([facility]) 2019 Hypertension Iron deficiency anemia Neuropathy bilateral lower ext Obesity (BMI 30-39.9) ELLEN (obstructive sleep apnea) 09/11/2021 Pap smear abnormality of cervix with ASCUS favoring benign 02/05/2015 Pneumonia 2019 MSSA, pseudomonas depression Type 2 diabetes mellitus without complication, without long-term current use of insulin ([facility]) 03/13/2020 I have confirmed and edited as necessary, the [facility] Review of Systems Constitutional: Negative for chills and fever. HENT: Positive for ear pain. Negative for congestion and sinus pain. Respiratory: Negative for cough. Gastrointestinal: Negative for abdominal pain. Genitourinary: Negative for dysuria, flank pain, frequency, hematuria and urgency. Vaginal discharge Neurological: Negative for headaches. Objective Physical Exam Vitals and nursing note reviewed. Constitutional: Appearance: Normal appearance. HENT: Head: Normocephalic and atraumatic. Right Ear: Tympanic membrane, ear canal and external ear normal. Left Ear: Ear canal and external ear normal. A middle ear effusion (serous) is present. Tympanic membrane is bulging. Nose: No mucosal edema, congestion or rhinorrhea. Right Sinus: No maxillary sinus tenderness or frontal sinus tenderness. Left Sinus: No maxillary sinus tenderness or frontal sinus tenderness. Mouth/Throat: Pharynx: Uvula midline. No oropharyngeal exudate or posterior oropharyngeal erythema. Cardiovascular: Rate and Rhythm: Normal rate and regular rhythm. Heart sounds: Normal heart sounds. Pulmonary: Effort: Pulmonary effort is normal. Breath sounds: Normal breath sounds. Abdominal: General: Bowel sounds are normal. There is no abdominal bruit. Palpations: Abdomen is not rigid. There is no mass or pulsatile mass. Tenderness: There is no abdominal tenderness. There is no guarding or rebound. Negative signs include Hua's sign and McBurney's sign. Lymphadenopathy: Head: Right side of head: No submental, submandibular or tonsillar adenopathy. Left side of head: No submental, submandibular or tonsillar adenopathy. Cervical: No cervical adenopathy. Skin: General: Skin is warm and dry. Neurological: Mental Status: She is alert and oriented to person, place, and time. Psychiatric: Mood and Affect: Affect normal. ASSESSMENT/PLAN: 1. Vaginal discharge - ICD9: 623.5, ICD10: N89.8 (primary diagnosis) Will check cultures and treat based on results - UA DIP, URINE (POC) - BACTERIAL VAGINOSIS AMPLIFICATION - GC/CHLAMYDIA DNA DET - LOVE / TRICHOMONAS AMPLIFICATION 2. Urinary frequency - ICD9: 788.41, ICD10: R35.0 Repeat urine culture due to contamination 3. Acute vaginitis - ICD9: 616.10, ICD10: N76.0 - BACTERIAL VAGINOSIS AMPLIFICATION - GC/CHLAMYDIA DNA DET - LOVE / TRICHOMONAS AMPLIFICATION 4. Acute effusion of left ear - ICD9: 381.00, ICD10: H65.192 - Supportive care with plenty of fluids, rest, and analgesia prn. Zyrtec and flonase for 30 days - CETIRIZINE 10 MG TABLET Diagnosis and treatment plan were discussed and questions were answered to the patient's satisfaction. Pt acknowledged understanding of concepts and follow up plan. Specific signs and symptoms that would indicate the need for higher level of care were discussed indetail warranting prompt ER evaluation. Sarah Lowe APRN.CNP documented in this encounterPark[facility]09-10-2022 Miscellaneous Notes* Telephone Encounter - Anu Pino RN - 11/30/2021 12:12 PM EDT Reason: Urinary frequency, dysuria and vaginal discharge. Bilateral lower back pain. Outcome: See HCP within 4 hours. Patient states she will go to Urgent Care. Reason for Disposition Side (flank) or lower back pain present [1] Discomfort (pain, burning or stinging) when passing urine AND [2] female Answer Assessment - Initial Assessment Questions 1. SEVERITY: 5/10. 2. FREQUENCY: Burning with every void. 3. PATTERN: See above. 4. ONSET: 11-25-21. 5. FEVER: Denies. 6. PAST UTI: History of UTI. 7. CAUSE: Unsure. 8. OTHER SYMPTOMS: Vaginal discharge and lower back pain bilaterally. No blood in urine. States she was seen in UrgentCare on 11-27-21. They said urine was negative. Started her on a muscle relaxer and steroid. Continues to have urinary frequency and dysuria. 9. : Denies. Protocols used: Urinary [id number], Urination Pain - [id number] documented in this encounterPark[facility]09-08-2022 Instructions* Patient Instructions* Mackenzie Hunt APRN.CNP - 11/28/2021 3:43 PM EDT EMERGENCY DEPARTMENT LOW BACK PAIN GENERAL INFORMATION: Low back pain is located in the small of the back. The pain may be related to sprained muscles or ligaments, to muscle spasms, or to herniation of a spinal disc. There are many possible causes of back pain, but the most common causes are gradual wear and tear, physical and emotional stress, and weak or tense muscles from lack of proper exercise. The pain can develop quickly or overnight and may be caused by unusual exertion such as moving furniture or heavy lifting. Low back pain can be severe, and sometimes you may be unable to move without pain. INSTRUCTIONS: 1. During the first 24 hours, apply ice packs to your back for 10-20 minutes 3 to 4 times a day. Put the ice in a plastic bag and place a towel between the bag of ice and your skin. After 24 hours, apply heat to your back with a heating pad set on low or a warm water bottle for 30 minutes every 3 to 4 hours. A gentle massage and warm showers may also be helpful. 2. Stay in bed for 1 to 2 days. Then begin normal activities as you can tolerate without causing pain. 3. Bend at the hips and knees; never bend from the waist only. Lift with your legs, not your back. 4. Sleep on a firm mattress or put a to 1 inch piece of plywood between the mattress and box springs. Do not use a waterbed because it does not support your back correctly. Sleep with a pillow under your knees or sleep on your side with your knees bent. 5. Wear low-heeled shoes. 6. If you are overweight, losing weight will help prevent another attack. 7. Begin a program of back exercises to prevent future episodes of pain. Walking, swimming, and bicycling are good exercise. Avoid exercises that put stress on the back, such as rowing and jogging. CONTACT YOUR DOCTOR OR RETURN TO THE ED IF: 1. You have shooting pains into your buttocks, groin, or legs. 2. You have difficulty urinating or lose control of bowel or bladder function. 3. You have numbness or weakness in your legs or feet. documented in this encounterPark[facility]09-08-2022 History of Present illness Narrative* Mackenzie Hunt APRN.CNP - 11/28/2021 3:41 PM EDT This note was created using NoteWriter. Subjective Martina D Trena is a 35 year old female. 35 year old female with no PMH presents for possible UTI. Acute onset of symptoms was 2 days ago +burning +urgency +frequency States she is experiencing lower back pain Tight and cramp Denies vaginal discharge. Denies vaginal bleeding Denies inability to ambulate, unilateral weakness, IV drug usage. Denies trauma or injury. Denies fever or chills. The history is provided by the patient. No anglesmith helper was used. UTI This is a new problem. The current episode started 2 days ago. The problem occurs every urination. The problem has not changed since onset.The quality of the pain is described as burning. The pain isat a severity of 4/10. The pain is mild. There has been no fever. She is Sexually active. There is No history of pyelonephritis. Associated symptoms include frequency and urgency. Pertinent negativesinclude no chills, no sweats, no nausea, no vomiting, no discharge, no hematuria, no hesitancy, no possible and no flank pain. She has tried nothing for the symptoms. Her past medical history does not include kidney stones, single kidney, urological procedure, recurrent UTIs, urinary stasis or catheterization. Back Pain This is a new problem. The current episode started more than 2 days ago. The problem occurs constantly. The problem has not changed since onset.The pain is associated with no known injury. The pain is present in the lumbar spine. The quality of the pain is described as stabbing and cramping. The pain does not radiate. The pain is at a severity of 5/10. The pain is moderate. The symptoms are aggravated by bending and twisting. The pain is The same all the time. Stiffness is present All day. Associated symptoms include dysuria. Pertinent negatives include no chest pain, no fever, no numbness, no weight loss, no headaches, no abdominal pain, no abdominal swelling, no bowel incontinence, no perianal numbness, no bladder incontinence, no pelvic pain, no leg pain, no paresthesias, no paresis, no tingling and no weakness. She has tried nothing for the symptoms. The treatment provided no relief. Risk factors include obesity and poor posture. PAST MEDICAL HISTORY Diagnosis Date Acalculous cholecystitis SANTANA (acute kidney injury) ([facility]) 08/05/2018 Anxiety DVT (deep venous thrombosis) ([facility]) 2019 Dysthymic disorder Depression (non-psychotic) Fatty liver 03/30/2020 Gestational diabetes mellitus, class A1 11/17/2016 gestational hypertension History of tobacco use 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 Hypertension Iron deficiency anemia Neuropathy bilateral lower ext Obesity (BMI 30-39.9) ELLEN (obstructive sleep apnea) 09/11/2021 Pap smear abnormality of cervix with ASCUS favoring benign 02/05/2015 Pneumonia 2019 MSSA, pseudomonas depression Type 2 diabetes mellitus without complication, without long-term current use of insulin ([facility]) 03/13/2020 PAST SURGICAL HISTORY Procedure Laterality Date DILATION & CURETTAGE DX&/THER NONOBSTETRIC 2004 Dilation & curettage MIDLINE INSERTION/CONSULT 09/16/2018 TUBAL LIGATION 2018 w/ Filshie clips VAGINAL HYSTERECTOMY UTERUS 250 GM/< 07/15/2018 [facility] ALLERGIES Amoxicillin, Bactrim [Sulfamethoxazole-Trimethoprim], Heparin, and Bleach (Sodium Hypochlorite) MEDICATIONS LORazepam (ATIVAN) 0.5 mg Take 1 tablet by mouth once daily as needed for up to 30 days. escitalopram oxalate (LEXAPRO) 20 mg tablet Take 1 tablet by mouth once daily. QUEtiapine (SEROQUEL) 50 mg tablet Take 1 tablet by mouth daily at bedtime. fluticasone (FLONASE) 50 mcg/actuation nasal spray Use 1 [place] in each nostril once daily. ondansetron orally disintegrating (ZOFRAN ODT) 4 mg disintegrating tablet Take 1 tablet by mouth every 8 hours as needed. gabapentin (NEURONTIN) 400 mg capsule Take one capsule in the morning, and 3 capsules in the evening. magnesium oxide (MAG-OX) 400 mg (241.3 mg magnesium) tablet Take 1 tablet by mouth once daily. loratadine (CLARITIN) 10 mg tablet Take 1 tablet by mouth once daily. riboflavin, vitamin B2, 400 mg tab Take 1 tablet by mouth once daily. cholecalciferol, Vitamin D3, (VITAMIN D3) 1,250 mcg (50,000 unit) cap capsule Take 1 capsule by mouth one time a week. Lancets lancets Test blood sugar(s) 1 times daily. Dx: Type 2 DM - Controlled E11.9 Insulin: No blood sugar diagnostic (BLOOD GLUCOSE TEST) test strip Test blood sugar(s) 1 times daily. Dx: OtherDM Code R73.03 Insulin: No albuterol HFA (PROVENTIL HFA, VENTOLIN HFA) 90 mcg/actuation inhaler Inhale 2 Puffs as instructed every 4 hours as needed for wheezing/shortness of breath. ferrous sulfate 325 mg (65 mg iron) tablet Take 1 tablet by mouth twice daily. atorvastatin (LIPITOR) 40 mg tablet Take 1 tablet by mouth daily at bedtime. For cholesterol. fenofibrate nanocrystallized (TRICOR) 145 mg tablet Take 1 tablet by mouth once daily. famotidine (PEPCID) 20 mg tablet Take 1 tablet by mouth once daily. CPAP CPAP 7 cm H2O. Formal mask refitting & work with RT, chin strap, head gear, humidity, heated tubing(GWENDOLYN), lifetime supplies. G47.33 ELLEN blood sugar diagnostic (BLOOD GLUCOSE TEST) test strip Test blood sugar(s) 1 times daily. Dx: Type 2 DM - Controlled E11.9 Insulin: No predniSONE (DELTASONE) 10 mg tablet Take 4 tabs daily for 3 days, then 2 tabs daily for 3 days, then 1 tab daily for 3 days with food. cyclobenzaprine (FLEXERIL) 10 mg tablet Take 1 tablet by mouth three times daily as needed for muscle spasm. phenazopyridine (PYRIDIUM) 200 mg tablet Take 1 tablet by mouth three times daily as needed. metoprolol tartrate, short acting, (LOPRESSOR) 25 mg tablet Take 0.5 tablets by mouth every 12 hours. gabapentin (NEURONTIN) 100 mg capsule Take 2 capsules by mouth once daily for 90 days. This prescription is in additional to the 400 mg dosing prescription. (Patient taking differently: Take 200 mg by mouth as needed. This prescription is in additional to the 400 mg dosing prescription.) FAMILY HISTORY Problem Relation Age of Onset Anxiety disorder Mother Thyroid Mother Hypothyroidism Diabetes Mother other (cellulitis) Mother Bipolar disorder Sister Schizophrenia Sister Hypertension Maternal Aunt Diabetes Maternal Grandfather Hypertension Maternal Grandfather Heart Maternal Grandfather PACEMAKER No Ocular Disease No Family History Social History Tobacco Use Smoking status: Light Smoker Packs/day: 0.50 Years: 15.00 Pack years: 7.50 Types: Cigarettes Last attempt to quit: 07/16/2018 Years since quittin.3 Smokeless tobacco: Never Tobacco comments: with anxiety Vaping Use Vaping Use: Never used Substance Use Topics Alcohol use: No Drug use: No Review of Systems Constitutional: Negative for chills, fever and weight loss. Eyes: Negative for pain, discharge, redness and itching. Respiratory: Negative for apnea, cough, choking and chest tightness. Cardiovascular: Negative for chest pain, palpitations and leg swelling. Gastrointestinal: Negative for abdominal pain, bowel incontinence, nausea and vomiting. Genitourinary: Positive for dysuria, frequency and urgency. Negative for bladder incontinence, flank pain, hematuria, hesitancy and pelvic pain. Musculoskeletal: Positive for back pain. Skin: Negative for color change, pallor, rash and wound. Allergic/Immunologic: Negative for environmental allergies, food allergies and immunocompromised state. Neurological: Negative for tingling, weakness, numbness, headaches and paresthesias. Hematological: Negative for adenopathy. Does not bruise/bleed easily. Psychiatric/Behavioral: Negative for agitation and behavioral problems. Objective BP 130/80 Pulse 96 Temp 36.9 C (98.4 F) (Tympanic) Resp 18 Wt 122.1 kg (269 lb 3.2 oz) LMP 05/03/2018 (Within Days) SpO2 98% BMI 40.93 kg/m Physical Exam Vitals and nursing note reviewed. Constitutional: General: She is not in acute distress. Appearance: Normal appearance. She is normal weight. She is not ill-appearing, toxic-appearing or diaphoretic. HENT: Head: Normocephalic and atraumatic. Right Ear: Ear canal and external ear normal. Left Ear: Ear canal and external ear normal. Nose: Nose normal. No congestion or rhinorrhea. Mouth/Throat: Mouth: Mucous membranes are moist. Pharynx: No oropharyngeal exudate or posterior oropharyngeal erythema. Eyes: General: Right eye: No discharge. Left eye: No discharge. Extraocular Movements: Extraocular movements intact. Conjunctiva/sclera: Conjunctivae normal. Pupils: Pupils are equal, round, and reactive to light. Cardiovascular: Rate and Rhythm: Normal rate and regular rhythm. Pulses: Normal pulses. Heart sounds: Normal heart sounds. No murmur heard. No friction rub. Pulmonary: Effort: Pulmonary effort is normal. No respiratory distress. Breath sounds: Normal breath sounds. No stridor. No wheezing, rhonchi or rales. Chest: Chest wall: No tenderness. Abdominal: General: Abdomen is flat. There is no distension. Palpations: Abdomen is soft. There is no mass. Tenderness: There is no abdominal tenderness. There is no right CVA tenderness, left CVA tenderness, guarding or rebound. Hernia: No hernia is present. Musculoskeletal: General: Tenderness (bilateral lower lumbar paraspinal region with TTP. No midline cervical, thoracic or lumbar TTP) present. No swelling, deformity or signs of injury. Normal range of motion. Cervical back: Normal range of motion and neck supple. No rigidity. Right lower leg: No edema. Left lower leg: No edema. Lymphadenopathy: Cervical: No cervical adenopathy. Skin: General: Skin is warm and dry. Capillary Refill: Capillary refill takes less than 2 seconds. Coloration: Skin is not jaundiced or pale. Findings: No bruising, erythema, lesion or rash. Neurological: General: No focal deficit present. Mental Status: She is alert and oriented to person, place, and time. Cranial Nerves: No cranial nerve deficit. Sensory: No sensory deficit. Motor: No weakness. Coordination: Coordination normal. Gait: Gait normal. Psychiatric: Mood and Affect: Mood normal. Behavior: Behavior normal. Thought Content: Thought content normal. Judgment: Judgment normal. Assessment and Plan ASSESSMENT/PLAN: 1. Urinary frequency - ICD9: 788.41, ICD10: R35.0 (primary diagnosis) acute - UA negative - Send urine for culture Pyridium Increase fluids - Patient education for prevention given - UA DIP, URINE (POC) - URINE CULTURE 2. Lumbar pain - ICD9: 724.2, ICD10: M54.50 +TTP diffusely NO red flags Will provide RX for Prednisone, Flexeril Follow up with PCP Mackenzie Hunt APRN.MARIE documented in this encounterParkview [facility]08-22-[facility]22 History of Present illness Narrative* Lela Mcdaniel APRN.CNP - 11/11/2021 1:31 PM EDT Subjective HPI HPI Martina D Trena is a 35 year old female who presents today for CC of congestion, ear pressure, diarrhea, upset stomach, fatigue, intermittent dizziness. This started 6 days ago/positive for covid. Has tried otc medication for relief. Symptoms are worsened by nothing. Risk factors smoker, diabetic, overweight. Denies possibility of being . Tolerating fluids and solids well .Patient presents with: Diarrhea: Ear pressure in both ears, stomach pain x 1 week PAST MEDICAL HISTORY Diagnosis Date Acalculous cholecystitis SANTANA (acute kidney injury) ([facility]) 08/05/2018 Anxiety DVT (deep venous thrombosis) ([facility]) 2018 Dysthymic disorder Depression (non-psychotic) Fatty liver 03/30/2020 Gestational diabetes mellitus, class A1 11/17/2016 gestational hypertension History of tobacco use 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 Hypertension Iron deficiency anemia Neuropathy bilateral lower ext Obesity (BMI 30-39.9) ELLEN (obstructive sleep apnea) 09/11/2021 Pap smear abnormality of cervix with ASCUS favoring benign 02/05/2015 Pneumonia 2019 MSSA, pseudomonas depression Type 2 diabetes mellitus without complication, without long-term current use of insulin ([facility]) 03/13/2020 PAST SURGICAL HISTORY Procedure Laterality Date DILATION & CURETTAGE DX&/THER NONOBSTETRIC 2004 Dilation & curettage MIDLINE INSERTION/CONSULT 09/16/2018 TUBAL LIGATION 2018 w/ Filshie clips VAGINAL HYSTERECTOMY UTERUS 250 GM/< 07/15/2018 [facility] ALLERGIES Amoxicillin, Bactrim [Sulfamethoxazole-Trimethoprim], Heparin, and Bleach (Sodium Hypochlorite) MEDICATIONS LORazepam (ATIVAN) 0.5 mg Take 1 tablet by mouth once daily as needed for up to 30 days. escitalopram oxalate (LEXAPRO) 20 mg tablet Take 1 tablet by mouth once daily. QUEtiapine (SEROQUEL) 50 mg tablet Take 1 tablet by mouth daily at bedtime. fluticasone (FLONASE) 50 mcg/actuation nasal spray Use 1 Meridian in each nostril once daily. ondansetron orally disintegrating (ZOFRAN ODT) 4 mg disintegrating tablet Take 1 tablet by mouth every 8 hours as needed. gabapentin (NEURONTIN) 400 mg capsule Take one capsule in the morning, and 3 capsules in the evening. metoprolol tartrate, short acting, (LOPRESSOR) 25 mg tablet Take 0.5 tablets by mouth every 12 hours. magnesium oxide (MAG-OX) 400 mg (241.3 mg magnesium) tablet Take 1 tablet by mouth once daily. riboflavin, vitamin B2, 400 mg tab Take 1 tablet by mouth once daily. cholecalciferol, Vitamin D3, (VITAMIN D3) 1,250 mcg (50,000 unit) cap capsule Take 1 capsule by mouth one time a week. Lancets lancets Test blood sugar(s) 1 times daily. Dx: Type 2 DM - Controlled E11.9 Insulin: No blood sugar diagnostic (BLOOD GLUCOSE TEST) test strip Test blood sugar(s) 1 times daily. Dx: OtherDM Code R73.03 Insulin: No gabapentin (NEURONTIN) 100 mg capsule Take 2 capsules by mouth once daily for 90 days. This prescription is in additional to the 400 mg dosing prescription. (Patient taking differently: Take 200 mg by mouth as needed. This prescription is in additional to the 400 mg dosing prescription.) albuterol HFA (PROVENTIL HFA, VENTOLIN HFA) 90 mcg/actuation inhaler Inhale 2 Puffs as instructed every 4 hours as needed for wheezing/shortness of breath. ferrous sulfate 325 mg (65 mg iron) tablet Take 1 tablet by mouth twice daily. atorvastatin (LIPITOR) 40 mg tablet Take 1 tablet by mouth daily at bedtime. For cholesterol. fenofibrate nanocrystallized (TRICOR) 145 mg tablet Take 1 tablet by mouth once daily. famotidine (PEPCID) 20 mg tablet Take 1 tablet by mouth once daily. CPAP CPAP 7 cm H2O. Formal mask refitting & work with RT, chin strap, head gear, humidity, heated tubing(GWENDOLYN), lifetime supplies. G47.33 ELLEN blood sugar diagnostic (BLOOD GLUCOSE TEST) test strip Test blood sugar(s) 1 times daily. Dx: Type 2 DM - Controlled E11.9 Insulin: No loratadine (CLARITIN) 10 mg tablet Take 1 tablet by mouth once daily. FAMILY HISTORY Problem Relation Age of Onset Anxiety disorder Mother Thyroid Mother Hypothyroidism Diabetes Mother other (cellulitis) Mother Bipolar disorder Sister Schizophrenia Sister Hypertension Maternal Aunt Diabetes Maternal Grandfather Hypertension Maternal Grandfather Heart Maternal Grandfather PACEMAKER No Ocular Disease No Family History Social History Tobacco Use Smoking status: Light Smoker Packs/day: 0.50 Years: 15.00 Pack years: 7.50 Types: Cigarettes Last attempt to quit: 07/16/2018 Years since quittin.3 Smokeless tobacco: Never Tobacco comments: with anxiety Vaping Use Vaping Use: Never used Substance Use Topics Alcohol use: No Drug use: No ROS Objective Blood pressure 118/76, pulse 101, temperature 36.6 C (97.9 F), resp. rate 24, weight 117.9 kg (260 lb), last menstrual period 05/03/2018, SpO2 95 %. Physical Exam Constitutional: General: She is not in acute distress. Appearance: She is ill-appearing (mild). She is not toxic-appearing or diaphoretic. HENT: Head: Normocephalic and atraumatic. Right Ear: Hearing, tympanic membrane, ear canal and external ear normal. Left Ear: Hearing, tympanic membrane, ear canal and external ear normal. Nose: Nose normal. Mouth/Throat: Pharynx: Uvula midline. No pharyngeal swelling, oropharyngeal exudate, posterior oropharyngeal erythema or uvula swelling. Eyes: General: Lids are normal. No scleral icterus. Right eye: No discharge. Left eye: No discharge. Conjunctiva/sclera: Conjunctivae normal. Pupils: Pupils are equal, round, and reactive to light. Neck: Trachea: Trachea normal. Cardiovascular: Rate and Rhythm: Normal rate and regular rhythm. Heart sounds: Normal heart sounds. Pulmonary: Effort: Pulmonary effort is normal. Breath sounds: Normal breath sounds. Abdominal: General: Bowel sounds are normal. Palpations: Abdomen is soft. Tenderness: There is no abdominal tenderness. Musculoskeletal: Cervical back: Normal range of motion and neck supple. Lymphadenopathy: Cervical: No cervical adenopathy. Right cervical: No superficial cervical adenopathy. Left cervical: No superficial cervical adenopathy. Skin: Findings: No rash. Neurological: Mental Status: She is alert and oriented to person, place, and time. ASSESSMENT/PLAN: 1. COVID-19 - ICD9: 079.89, ICD10: U07.1 Push fluids Rest Past quarantine Will give few more days off work Worsening s/s go to ER. Agrees to plan Lela Mcdaniel APRN.MARIE documented in this encounterPark[facility]-17-[facility] Instructions* Patient Instructions* Judith Brown APRN.CNP - 11/06/2021 6:40 PM EDT How to Manage Common Symptoms Associated with COVID for Adults Fever- Fever is a temperature over 100.4 F and can occur when the body is fighting an infection. Tohelp treat a fever: Drink plenty of fluids and stay well hydrated. Eat small amounts of easy to digest food. Rest. Your body needs rest to recover, but getting up and moving around the house frequently is a good idea. You should try to continue doing your normal daily activities (bathing, toileting, grooming, cooking), though you will probably feel tired, and need to rest often. Avoid any heavy activity or exercise, as this will increase your body temperature. Dress in light clothing and stay covered in a light sheet. Keep the room temperature cool. Take a slightly warm (not cold or cool) bath, or apply damp washcloths to the forehead and wrists. Cough- Cough is a common symptom associated with COVID and can be bothersome. To help treat a cough: Stay well hydrated. Try warm water or tea with lemon and/or honey to help soothe the cough. Use a humidifier to add moisture to the air. Try a product with menthol, like a cough drop or a rub for your chest such as Vicks, which can helpreduce cough. Try cough drops. Avoid smoking and other strong odors or perfumes. Try breathing exercises to keep your lungs open and clear. Take a big deep breath through your noseand hold for 5 seconds before slowly releasing. Repeat frequently, while you are awake. Congestion- Runny nose or nasal congestion can occur with COVID. Treatment can help relieve symptoms: Try OTC nasal saline spray, or nasal saline rinse to relieve mucus congestion. Nasal strips can help keep nasal passages open, to increase airflow. Elevating your head with an extra pillow in bed can help reduce congestion. Using a humidifier can increase moisture in the air, and make breathing easier. Sore Throat- Another common symptom with COVID, can be managed at home by: Stay well hydrated. Gargle with salt water - mix teaspoon salt with 1 cup of warm water and gargle. This helps to loosen mucus in the back of the throat and may reduce discomfort. Try ice chips, popsicles or lozenges to soothe the throat. Nausea/Vomiting/Diarrhea- These are common symptoms, and staying hydrated is most important. If you are nauseous or vomiting, start with small sips of water every 10-15 minutes and increase astolerated. You can try sucking an ice cube too. If tolerating, you can try pedialyte or Gatorade, or flat sprite or patti-meka. Start slowly and increase as you are able to. Instead of meals, try smaller, more frequent snacks. Try eating bland foods like crackers, toast, rice, and applesauce. Avoid spicy, greasy or fried foods and dairy containing foods. Even if you aren't feeling hungry due to lack of smell or taste, it is important to try to take in some food when you are able. After drinking and eating, rest in an upright position for up to two hours as needed to help decrease nauseous feelings. Try closing your eyes, avoid moving and watching TV. Avoid strong odors that can make you feel more nauseated. When to seek emergency medical attention Look for emergency warning signs for COVID-19. If having any of these symptoms, seek emergency medical care immediately: Trouble breathing Persistent pain or pressure in the chest New confusion Inability to wake or stay awake Bluish lips or face *This list is not all possible symptoms. Please call your medical provider for any other symptoms that are severe or concerning to you. documented in this encounterParkview [facility]08-17-2022 History of Present illness Narrative* Judith Brown APRN.CNP - 11/06/2021 6:39 PM EDT CC: Patient presents with: Cough: Cough, congestion, ST, nausea and ear pain x 2 days HPI: June Trena is a 35 year old female who presents to the office with complaint of head congestion, cough, nonproductive, sore throat, and sinus symptoms for a few days. Symptoms are staying the same. Associated symptoms includes nausea. Denies fever, vomiting , and diarrhea. Treatments tried include nothing so far. with no relief of symptoms. Sick contacts: unknown. History of asthma, frequent episodes of bronchitis, chronic bronchitis, bronchiectasis or COPD: No Smoker: No Seasonal/environmental allergies: No The ROS is otherwise negative. The patient's pmh, medications, allergies, and past visits are reviewed. PHYSICAL EXAM: BP 124/82 Pulse 103 Temp 36.6 C (97.8 F) (Tympanic) Resp 18 Wt 119.5 kg (263 lb 6.4 oz) LMP 05/03/2018 (Within Days) SpO2 97% BMI 40.05 kg/m General appearance: alert, cooperative, pleasant, in no acute distress Head: Normocephalic Eyes: EOM's intact, conjunctiva pink and moist, no icterus, sclera white, non-injected Ears: Right ear: External ear/canal- Normal, TM - clear with good landmarks. Left ear: External ear/canal- Normal, TM - clear with good landmarks Oropharynx:moist without lesions, No erythema, exudates or tonsillar hypertrophy. Heart: Negative. RRR without obvious murmur, gallop, or rubs. No ectopy. 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 Hypertension Iron deficiency anemia Neuropathy bilateral lower ext Obesity (BMI 30-39.9) ELLEN (obstructive sleep apnea) 09/11/2021 Pap smear abnormality of cervix with ASCUS favoring benign 02/05/2015 Pneumonia 2019 MSSA, pseudomonas depression Type 2 diabetes mellitus without complication, without long-term current use of insulin ([facility]) 03/13/2020 PAST SURGICAL HISTORY Procedure Laterality Date DILATION & CURETTAGE DX&/THER NONOBSTETRIC 2003 Dilation & curettage MIDLINE INSERTION/CONSULT 09/16/2018 TUBAL LIGATION 2018 w/ Filshie clips VAGINAL HYSTERECTOMY UTERUS 250 GM/< 07/15/2018 [facility] ALLERGIES Amoxicillin, Bactrim [Sulfamethoxazole-Trimethoprim], Heparin, and Bleach (Sodium Hypochlorite) MEDICATIONS LORazepam (ATIVAN) 0.5 mg Take 1 tablet by mouth once daily as needed for up to 30 days. escitalopram oxalate (LEXAPRO) 20 mg tablet Take 1 tablet by mouth once daily. QUEtiapine (SEROQUEL) 50 mg tablet Take 1 tablet by mouth daily at bedtime. fluticasone (FLONASE) 50 mcg/actuation nasal spray Use 1 Meridian in each nostril once daily. ondansetron orally disintegrating (ZOFRAN ODT) 4 mg disintegrating tablet Take 1 tablet by mouth every 8 hours as needed. gabapentin (NEURONTIN) 400 mg capsule Take one capsule in the morning, and 3 capsules in the evening. metoprolol tartrate, short acting, (LOPRESSOR) 25 mg tablet Take 0.5 tablets by mouth every 12 hours. magnesium oxide (MAG-OX) 400 mg (241.3 mg magnesium) tablet Take 1 tablet by mouth once daily. loratadine (CLARITIN) 10 mg tablet Take 1 tablet by mouth once daily. riboflavin, vitamin B2, 400 mg tab Take 1 tablet by mouth once daily. cholecalciferol, Vitamin D3, (VITAMIN D3) 1,250 mcg (50,000 unit) cap capsule Take 1 capsule by mouth one time a week. Lancets lancets Test blood sugar(s) 1 times daily. Dx: Type 2 DM - Controlled E11.9 Insulin: No blood sugar diagnostic (BLOOD GLUCOSE TEST) test strip Test blood sugar(s) 1 times daily. Dx: OtherDM Code R73.03 Insulin: No albuterol HFA (PROVENTIL HFA, VENTOLIN HFA) 90 mcg/actuation inhaler Inhale 2 Puffs as instructed every 4 hours as needed for wheezing/shortness of breath. ferrous sulfate 325 mg (65 mg iron) tablet Take 1 tablet by mouth twice daily. atorvastatin (LIPITOR) 40 mg tablet Take 1 tablet by mouth daily at bedtime. For cholesterol. fenofibrate nanocrystallized (TRICOR) 145 mg tablet Take 1 tablet by mouth once daily. famotidine (PEPCID) 20 mg tablet Take 1 tablet by mouth once daily. CPAP CPAP 7 cm H2O. Formal mask refitting & work with RT, chin strap, head gear, humidity, heated tubing(GWENDOLYN), lifetime supplies. G47.33 ELLEN blood sugar diagnostic (BLOOD GLUCOSE TEST) test strip Test blood sugar(s) 1 times daily. Dx: Type 2 DM - Controlled E11.9 Insulin: No gabapentin (NEURONTIN) 100 mg capsule Take 2 capsules by mouth once daily for 90 days. This prescription is in additional to the 400 mg dosing prescription. (Patient taking differently: Take 200 mg by mouth as needed. This prescription is in additional to the 400 mg dosing prescription.) FAMILY HISTORY Problem Relation Age of Onset Anxiety disorder Mother Thyroid Mother Hypothyroidism Diabetes Mother other (cellulitis) Mother Bipolar disorder Sister Schizophrenia Sister Hypertension Maternal Aunt Diabetes Maternal Grandfather Hypertension Maternal Grandfather Heart Maternal Grandfather PACEMAKER No Ocular Disease No Family History Social History Tobacco Use Smoking status: Light Smoker Packs/day: 0.50 Years: 15.00 Pack years: 7.50 Types: Cigarettes Last attempt to quit: 07/16/2018 Years since quittin.3 Smokeless tobacco: Never Tobacco comments: with anxiety Vaping Use Vaping Use: Never used Substance Use Topics Alcohol use: No Drug use: No ASSESSMENT/PLAN: 1. Close exposure to COVID-19 virus - ICD9: V01.79, ICD10: Z20.822 - COVID WITH FLUA+B, ROUTINE Prescription instructions reviewed with patient as applicable. Potential red flag symptoms discussed with the patient. Reviewed appropriate action plan to take if red flag symptoms occur. Patient agreeable to treatment plan. Judith Brown APRN.CNP documented in this encounterPark[facility]08-12-2022 Miscellaneous Notes* Addendum Note - Elin Dotson APRN.CNP - 11/01/2021 1:42 PM EDTAddended by: ELIN DOTSON on: 11/01/2021 01:42 PM Modules accepted: Orders documented in this encounterPark[facility]08-01-2022 Miscellaneous Notes* Telephone Encounter - Trev June APRN.CNP - 10/21/2021 8:34 AM EDT PDMP website checked and validated. All prescriptions have been APPROPRIATELY filled. No suspiciousactivity was identified. 10/21/2021 by Trev June APRN.CNP Please schedule F/U, in office appointment must be completed for next visit. * Telephone Encounter - Gilberto Acosta RN - 10/21/2021 8:17 AM EDT Last Office Visit: 05/09/2021 Future Office Visit: EventWith message sent to patient. IMPRESSION: Insomnia due to other mental disorder PDMP website checked and validated. All prescriptions have been APPROPRIATELY filled. No suspiciousactivity was identified. 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 This is her initial follow up since establishing in sleep medicine June of last year. She has a psychiatrist and is currently taking Ativan, Lexapro, seroquel, & Trazodone. She states she is quite tired during the day in light of great sleep apnea control with nightly use of CPAP 7 cm H2O. PLAN: Ellen (obstructive sleep apnea) (primary encounter diagnosis) - Continue CPAP at 7 cmH2O. - Remember to clean your mask and equipment regularly, as directed. - You should be eligible for new supplies approximately every 3-6 months, depending on your insurance coverage. Contact your Durable Medical Equipment (DME) company for new supplies as needed. Rls (restless legs syndrome) Neuropathy Vitamin d deficiency Vitamin b deficiency Elevated ferritin - Nonmedical therapy for restless legs syndrome includes : cold/warm compresses, warm/hot baths or showers, gentle massage, mild leg stretching at nighttime, or magnesium supplements ( 250- 1000 mg at nighttime daily). Mentally alerting activities help too. Note the caffeine, alcohol, nicotine, antidepressants, anti-nausea meds and antihistamines can cause or worsen symptoms. - Continue Gabapentin 400 mg in the morning and 1200 mg HS - Add 100 mg twice daily for breakthrough symptoms at work - Discussed SE and ADRs - Additional labs ordered - Consult General neurology for further testing, I.e. EMG Chronic fatigue syndrome Hypersomnia due to medical condition Depression, unspecified depression type Class 3 severe obesity with body mass index (bmi) of 40.0 to 44.9 in adult, unspecified obesity type, unspecified whether serious comorbidity present (hcc) Consider the MSLT, but will need clearance from psychiatry. Patient will need to work with mental health provider if she was interested in this testing to be off of Ativan, Lexapro, seroquel, & Trazodone for 2 weeks prior to testing. With PHQ-9 score as elevated as it is, I do not feel comfortable allowing patient to stop her current medication regimen. Furthermore Narcolepsy triad is negative on assessment, making this differential dx of low probability. - Polysomnogram to evaluate for obstructive sleep apnea (and other sleep disorders) and to ensure adequate sleep, followed by a daytime sleep study (Multiple Sleep Latency Test - MSLT) to evaluate for narcolepsy or idiopathic hypersomnia. - Please fill out sleep logs for 2 weeks prior to sleep studies and bring them with you to give to the camera technician. - A urine tox screen will be done on morning before the daytime sleep study starts. - The MSLT will be canceled if the overnight sleep study shows significant sleep apnea or inadequate sleep. - Stop taking Ativan, Lexapro, seroquel, & Trazodone before the sleep studies, for at least 2 weeks. - Avoid driving if drowsy. Would recommend that if you are dozing off while driving, that you do not drive until your sleepiness is appropriately treated. - Will reach out to psychiatry team to review F/U 3 - 6 months Trev June APRN.MARIE documented in this encounterParkview [facility]06-22-2022 Miscellaneous Notes* Telephone Encounter - Caro Castillo Ma - 09/11/2021 2:01 PM EDT Request completed and faxed. Confirmed and filed. Caro Castillo Ma * Telephone Encounter - Caro Castillo Ma - 09/11/2021 11:55 AM EDT Type of letter/form/fax request - Medical Necessity Form received from [facility] on 2c floor and placed on MARIE June's desk for completion. Completed form needs to be faxed to [phone]. Route to [place] when form completed for processing documented in this encounterParkview Health [facility]06-21-2022 Miscellaneous Notes* Telephone Encounter - Nathalia Alcocer LPN - 09/10/2021 11:04 AM EDT Patient has been identified by name and date of : Yes Patient phones for refill(s): Pending Prescriptions Disp Refills ONDANSETRON 4 MG DISINTEGRATING TABLET 20 tablet 0 Sig: Take 1 tablet by mouth every 8 hours as needed. GWENDOLYN: No Date of last office visit in primary care: 06/03/21 Please advise. Thank you. Nathalia Aloccer LPN documented in this encounterParkview Health [facility]06-10-2022 History of Present illness Narrative* Elin Dotson APRN.HAMMER SETTER - 08/30/2021 10:33 AM EDT Images from the original note were not included. PSYC FOLLOW UP - PSYCHIATRIC PROGRESS NOTE DIAGNOSIS: 1. Panic disorder with agoraphobia. 2. MDD, recurrent, moderate GAF: -60-51 Moderate symptoms or moderate difficulty in social, occupational or school functioning. TREATMENT PLAN: 1. Increase Lexapro back to 20 mg as patient found that to be more beneficial and has been able to tolerate that without any significant side effects. 2. Encouraged patient to use the combination of Seroquel and trazodone for her sleep difficulties. The Seroquel has been helpful for negative racing thoughts and helping her fall asleep. We discussedthe role of trazodone in helping her maintain her sleep. 3. Continue to utilize Ativan as needed for increased episodes of panic. 4. Reach out to primary care provider to see if patient is a candidate to switch from metoprolol topropanolol to help with her physical symptoms of anxiety. 5. Discussed engaging in chair yoga to help with anxiety in the evening time. 6. Encouraged patient to schedule an appointment for individual psychotherapy to discuss increase in current stressors. 7. Follow-up with this provider in 4 to 6 weeks. The effects and side effects of all the medications were reviewed in detail with the patient. She is in agreement with the treatment plan. She denies any involuntary movement related side effects. Patient is aware to reach out with any questions, concerns, or worsening of symptoms prior to the nextappointment. PDMP report was reviewed and found to be appropriate without any signs of misuse or diversion. CC: Follow up regarding her mood and anxiety With the patient consent, visit was performed virtually. HPI: Martina Trena is a 35 year old Female with a history of Panic Disorder and MDD presenting today for follow-up. Date of last visit: Plan from last visit: 1. Decrease Lexapro due to fatigue and headache related side effects. 2. Encouraged patient to start trazodone for difficulty falling and maintaining sleep. 3. Continue Seroquel at the same dose. 4. Utilize Ativan as needed for increased episodes of anxiety. Today June she has had a busy week. She feels that her medications are not working on supporting her anxiety. She is going through a lot with her divorce. She has filed a restraining order against her . She never cut down her Lexapro and has been taking 20 mg. Struggling with physical symptoms of anxiety. We discussed reaching out to her PCP to see if it is appropriate to switch her Metoprolol to propranolol. Has not been engaging in any exercise. Open to chair yoga. Has not been engaging in therapy to manage her stress related to the marriage. Attributes it to herbusy work schedule. Discussed checking [facility] for availability of evening appointments. Expresses difficulty in maintaining sleep but has not tried taking Trazodone yet. Her anxiety related to taking medications were addressed. She is in agreement to try that. Interval Progress: Slightly improved Risks and benefits of the medication, including any black box warnings, were discussed with the patient. Social History: No change PATIENT DATA: Generalized Anxiety Disorder Scale (BECCA-7) BECCA - 7 SCORES 09/15/2020 06/03/2021 08/29/2021 BECCA-7 Score 18 12 21 (0-4) minimal anxiety, (5-9) mild anxiety, (10-14) moderate anxiety, (15-21) severe anxiety Patient Health Questionnaire (PHQ-9) PHQ-9 05/09/2021 06/03/2021 08/29/2021 Score 19 6 8 (0-4) minimal depression, (5-9) mild depression, (10-14) moderate depression, (15-19) moderately severe depression, (20-27) severe depression ROS: General: Negative for fever, malaise, unintentional weight loss HEENT: Negative for recent changes in vision or hearing, no nasal drainage Respiratory: Negative for cough, wheezing or SOB Cardiovascular: Negative for chest pain GI: Negative for nausea, vomiting, change in bowel habits MUSCULOSKELETAL: Negative for acute back or joint pain SKIN: Negative for rash NEURO: Negative for headaches, seizures, focal neurological deficits All other systems negative. VITAL SIGNS: None obtained due to virtual visit. BP Temp Pulse Resp SpO2 MENTAL STATUS EXAMINATION: Appearance: Appropriately groomed, appears stated age Behavior: Appropriately engaged Psychomotor: No psychomotor agitation Cognition Level of Consciousness: Awake and alert. No fluctuation in wakefulness. Orientation: Grossly oriented Memory: Intact Attention/Concentration: Good Fund of Knowledge: Able to demonstrate an awareness of current events. Mood: Anxious Affect: Congruent to mood Speech/Language: Appropriate tone, prosody, day, phonetics, and syntax Thought Form: Goal-directed. No loosening of associations. Thought Content: No delusions noted or endorsed. Perceptual Disturbances: Did not appear to respond to auditory stimuli. Safety: Suicidal Ideations: No suicidal ideation, intent or plan. Homicidal Ideations: No homicidal ideation, intent or plan. Insight: Appropriate Judgment: Appropriate I spent a total of 38 minutes on the date of the service which included preparing to see the patient, [id number] patient care, completing clinical documentation, and counseling and educating the patient/family/caregiver, ordering medications/labs and communicating with other health care providers. Elin Dotson APRN.MARIE August 30, 2021 10:33 AM documented in this encounterPark[facility] Miscellaneous Notes* Telephone Encounter - Martinez Vogel LPN - 08/20/2021 10:42 AM EDT Patient phones requesting refills as follows: Pending Prescriptions Disp Refills MAGNESIUM OXIDE 400 MG (241.3 MG MAGNESIUM) TABLET 30 tablet 1 Sig: Take 1 tablet by mouth once daily. GWENDOLYN: Yes VITA 06/03/21 NOV 09/09/21 Please review and advise. Martinez Vogel LPN documented in this encounterParkview [facility]05-09-2022 Miscellaneous Notes* Telephone Encounter - Gilberto Acosta RN - 07/29/2021 9:00 AM EDT Refill not appropriate at this time. Lab work needed first. [employer] message sent to patient. documented in this encounterParkview [facility]05-09-2022 Miscellaneous Notes* Telephone Encounter - Jordana Cisse LPN - 07/29/2021 8:39 AM EDT Patient has been identified by name and date of : Yes Pending Prescriptions Disp Refills QUETIAPINE 50 MG TABLET 90 tablet 0 Sig: Take 1 tablet by mouth daily at bedtime. GWENDOLYN: No RX INSTRUCTIONS: Patient aware RX will be sent to pharmacy. No need to notify patient. Follow up 08/30/2021. Jordana Cisse LPN documented in this encounterParkview [facility]04-26-2022 Miscellaneous Notes* Telephone Encounter - Trev June APRN.MARIE - 07/16/2021 8:51 AM EDT PDMP website checked and validated. All prescriptions have been APPROPRIATELY filled. No suspiciousactivity was identified. 07/16/2021 by Trev June APRN.MARIE * Telephone Encounter - Gilberto Acosta RN - 07/15/2021 4:17 PM EDT Last Office Visit: 05.09.2021 Future Office Visit: not scheduled at this time. The [employer] message sent to patient to schedule. IMPRESSION: Insomnia due to other mental disorder PDMP website checked and validated. All prescriptions have been APPROPRIATELY filled. No suspiciousactivity was identified. 05/09/2021 by Trev June APRN.HAMMER SETTER Martina Albrecht is a 35 year old female who presents for ELLEN on PAP therapy, but complains of a magnitude of symptoms including insomnia, hypersomnia, chronic pain throughout body including her legs,and RLS type symptoms. This is her initial follow up since establishing in sleep medicine June of last year. She has a psychiatrist and is currently taking Ativan, Lexapro, seroquel, & Trazodone. She states she is quite tired during the day in light of great sleep apnea control with nightly use of CPAP 7 cm H2O. PLAN: Ellen (obstructive sleep apnea) (primary encounter diagnosis) - Continue CPAP at 7 cmH2O. - Remember to clean your mask and equipment regularly, as directed. - You should be eligible for new supplies approximately every 3-6 months, depending on your insurance coverage. Contact your [employer] company for new supplies as needed. Rls (restless legs syndrome) Neuropathy Vitamin d deficiency Vitamin b deficiency Elevated ferritin - Nonmedical therapy for restless legs syndrome includes : cold/warm compresses, warm/hot baths or showers, gentle massage, mild leg stretching at nighttime, or magnesium supplements ( 250- 1000 mg at nighttime daily). Mentally alerting activities help too. Note the caffeine, alcohol, nicotine, antidepressants, anti-nausea meds and antihistamines can cause or worsen symptoms. - Continue Gabapentin 400 mg in the morning and 1200 mg HS - Add 100 mg twice daily for breakthrough symptoms at work - Discussed SE and ADRs - Additional labs ordered - Consult General neurology for further testing, I.e. EMG Chronic fatigue syndrome Hypersomnia due to medical condition Depression, unspecified depression type Class 3 severe obesity with body mass index (bmi) of 40.0 to 44.9 in adult, unspecified obesity type, unspecified whether serious comorbidity present (hcc) Consider the MSLT, but will need clearance from psychiatry. Patient will need to work with mental health provider if she was interested in this testing to be off of Ativan, Lexapro, seroquel, & Trazodone for 2 weeks prior to testing. With PHQ-9 score as elevated as it is, I do not feel comfortable allowing patient to stop her current medication regimen. Furthermore Narcolepsy triad is negative on assessment, making this differential dx of low probability. - Polysomnogram to evaluate for obstructive sleep apnea (and other sleep disorders) and to ensure adequate sleep, followed by a daytime sleep study (Multiple Sleep Latency Test - MSLT) to evaluate for narcolepsy or idiopathic hypersomnia. - Please fill out sleep logs for 2 weeks prior to sleep studies and bring them with you to give to the camera technician. - A urine tox screen will be done on morning before the daytime sleep study starts. - The MSLT will be canceled if the overnight sleep study shows significant sleep apnea or inadequate sleep. - Stop taking Ativan, Lexapro, seroquel, & Trazodone before the sleep studies, for at least 2 weeks. - Avoid driving if drowsy. Would recommend that if you are dozing off while driving, that you do not drive until your sleepiness is appropriately treated. - Will reach out to psychiatry team to review F/U 3 - 6 months Trev June APRN.HAMMER SETTER documented in this encounterPark[facility]02-27-2022 Hospital Discharge instructions Patient Education 05/19/2021 13:54:09 Fracture, Foot Foot Fracture You have a broken bone (fracture) in your foot. This will cause pain, swelling, and often bruising.It will usually take about 4 to 8 weeks to heal. A foot fracture may be treated with a special shoe, splint, cast, or boot. Home care Follow these guidelines when caring for yourself at home: You may be given a splint, cast, shoe, or boot to keep the injured area from moving. Unless you were told otherwise, use crutches or a walker. Don t put weight on the injured foot until your health care provider says you can do so. (You can rent crutches and a walker at many pharmacies and surgicalor orthopedic supply stores.) Don t put weight on a splint, or it will break. Keep your leg elevated to reduce pain and swelling. When sleeping, put a pillow under the injured leg. When sitting, support the injured leg so it is above your waist. This is very important during the first 2 days (48 hours). Put an ice pack on the injured area. Do this for 20 minutes every 1 to 2 hours the first day for pain relief. You can make an ice pack by wrapping a plastic bag of ice cubes in a thin towel. As the ice melts, be careful that the splint, cast, boot, or shoe doesn t get wet. You can place the ice pack directly over the splint or cast. Unless told otherwise, you can open the boot or shoe to apply the ice pack. Continue using the ice pack 3 to 4 times a day for the next 2 days. Then use the ice pack as needed to ease pain and swelling. Keep the splint, cast, boot, or shoe dry. When bathing, protect it with a large plastic bag, rubber-banded at the top end. If a fiberglass splint or cast or boot gets wet, you can dry it with a hair and makeup designer. Unless told otherwise, you can take off the boot or shoe to bathe. You may use acetaminophen or ibuprofen to control pain, unless another pain medicine was prescribed. If you have chronic liver or kidney disease, talk with your healthcare provider before using thesemedicines. Also talk with your provider if you ve had a stomach ulcer or gastrointestinal bleeding. Don t put creams or objects under the cast if you have itching. Follow-up care Follow up with your healthcare provider, or as advised. This is to make sure the bone is healing the way it should. If you were given a splint, it may be changed to a cast or boot at your follow-up visit. X-rays may be taken. You will be told of any new findings that may affect your care. When to seek medical advice Call your healthcare provider right away if any of these occur: The cast or splint cracks The plaster cast or splint becomes wet or soft The fiberglass cast or splint stays wet for more than 24 hours Bad odor from the cast or wound fluid stains the cast Tightness or pain under the cast or splint gets worse Toes become swollen, cold, blue, numb, or tingly You can t move your toes Skin around cast or splint becomes red Fever of 100.4 F (38 C) or higher, or as directed by your healthcare provider [id number] The [employer]. [address] [place] [address], [place] [address]. All rights reserved. This information is not intended as a substitute for professional medical care. Always follow yourwhite hospitalcare professional's instructions. Follow Up Care 05/19/2021 12:23:57 With:DO BINDU MITCHELL DO Address: When:2-4 days With:Go to emergency room if symptoms worsen Address:Unknown When:2-4 days [facility] 10-07-2020 History of Present illness Narrative* Mary PeñaRt)Minnie - 12/28/2019 3:40 PM EDT 3 Radiology Service Progress Note PATIENT NAME: June Trena DATE OF SERVICE: December 28, 2019 TIME: 3:45 PM PATIENT IDENTITY VERIFICATION COMPLETED USING TWO (2) IDENTIFIERS: Name and Date of confirmedby patient verbally. FALL SCREENING: Has the patient had 2 falls in the last year or 1 fall with injury or currently using an Ambulatory Assistive Device (Walker, Cane, Wheelchair, Crutches, etc.)? No PATIENT GENDER DATA: Female. status: : No status: NO. PATIENT RELEVANT IMPLANT DATA REVIEWED: Not Applicable RADIOLOGY DEPARTMENT: General X-ray: Exam(s) Completed: Lower Extremity X- Ray(s): Foot, Left and Wt. Bearing: PERIPHERAL IV DATA: Not applicable SIGNED BY: RT Paula December 28, 2019 3:45 PM documented in this encounterPark[facility]06-22-2019 History of Past illness Narrative* Problem Noted Date Resolved Date Severe sepsis 09/11/2018 04/05/2019 Last Assessment & Plan: -The patient was tachycardic, tachypnic, febrile, WBC 31 and LA 1.6. -S/p fluid resuscitation, BP is stable -likely 2/2 HCP, CT chest showed Interval decreased cavitary component and size of right upper lobe pulmonary opacities. Interval new cavitation involving left lower lobe opacities and Interval new region of consolidation within the right lower lobe, possible atelectasis/inflammation/infection. -BC is negative, UC is showing Klebsiella/Enterobacter (UA is clean and the patient is asymptomatic, less likely UTI) -Infectious disease is following, nasal MRSA is negative -Repeat blood culture negative -Continue with Meropenem through -Ordered for Midline Respiratory failure 08/13/2018 04/05/2019 HIT (heparin-induced thrombocytopenia) 9 04/05/2019 SANTANA (acute kidney injury) 08/05/20182018 Last Assessment & Plan: -AKD developed after her prolonged ICU course -Cr is improving -Daily BMP Nicotine use disorder, F17.2 07/19/2018 ARDS (adult respiratory distress syndrome) 07/1604/05/2019 Acute respiratory failure with hypoxia and hyper capnia 07/16/2018 04/05/2019 Pneumonia of both lower lobes due to infectious organism 07/16/2018 04/05/2019 Septic shock 07/16/2018 04/05/2019 Acute encephalopathy 07/16/2018 08/23/2018 Encounter for sterilization 03/11/201702/21 Overview: Risks, benefits and alternatives to sterilization have been discussed with the patient. She declines reversible options including LARC. She understands sterilization is permanent, irreversible, risks of failure, regret and ectopic. In addition she understands there are surgical risks as well. Her questions were answered to her satisfaction and consent was signed. Leatha Kumar MD Gestational diabetes mellitus, class A1 11/18/19 17 07/07/2017 Overview: November 17, 2016 Abnormal 3 hr at 11w. Leatha Kumar MD Unplanned 11/03/2016 07/07/2017 Overview: 11/03/2016This is a surprise . Patient states she got pregnanct on oral contraceptives.The FOB is the father of her previous son. Patient desires PPTL. TKRN Obesity in 11/03/2016 07/07/2017 Overview: 11/03/2016She is obese. Will plan on GCT @ [facility]. TKRN Tobacco use during , antepartum 017 07/07/2017 Overview: 11/03/2016Pt smokes 1/2 pack a day of cigarettes. Discussed risks of smoking during . Advised pt to quit.TKRN Nausea/vomiting in 11/03/2016 Overview: 11/03/2016 Patient is complaining of nausea and occasional vomiting in . Dietary considerations discussed. Patient has tried Vitamin B6 and unisom with little relief. Dr Kumar wrote order for Phenergan. Advised patient to call/come in if she is unable to keep any food or fluids down in a 24-hour period. TKRN Abnormal glucose complicating 10/13/19 15 11/17/2016 Overview: November 08, 2016 Needs 3 hr. Leatha Kumar MD Supervision of other high-risk 015 01/22/2015 Overview: July 03, 2014 elevated WBC at [facility], had infection at that time, trending down. monitor. Leatha Kumar MD Request for sterilization 06/30/20142015 Overview: June 30, 2014 Desires tubal. VALENTIN given. Leatha Kumar MD October 11, 2014 Signed tubal papers. Leatha Kumar MD Anxiety in , antepartum 05/26/2014 01/22/2015 Overview: 05/26/14 - discussed R/B/A & use of medication in , she will cont effexor, stop ativan - KJ Poor support system complicating 05/2601/22/2015 Overview: 05/26/14 - patient is from her - KJ Tobacco use during 05/26/201404/2014 Overview: 05/26/14 - advised on risks & cessation - KJ Obesity complicating 05/26/2014 1 03/24/2014 Overview: 05/26/14 - early GCT today - KJ Generalized abdominal pain 02/21/201307/03 Pelvic pain complicating 02/21/2013 07/05/2013 Frequency of urination 02/21/2013 5 NO SHOW 01/12/2013 07/03/2014 Tobacco abuse 04/12/2012 07/03/2014 Obesity (BMI 30.0-34.9) 04/12/2012 08/20/19 18 Rebound headache 04/12/2012 01/22/2015 Unspecified high-risk 06/19/2008 04/12/2012 Supervision of other normal 12/07/2007 06/19/2008 Other threatened labor, unspecified as to episod e of care 11/29/2005 01/14/2006 Supervision of other normal 08/07/2005 01/14/2006 documented as of this encounter (statuses as of 06/21/2021) [facility] History of Past illness Narrative* Problem Noted Date Resolved Date Severe sepsis 09/11/2018 04/05/2019 Last Assessment & Plan: -The patient was tachycardic, tachypnic, febrile, WBC 31 and LA 1.6. -S/p fluid resuscitation, BP is stable -likely 2/2 HCP, CT chest showed Interval decreased cavitary component and size of right upper lobe pulmonary opacities. Interval new cavitation involving left lower lobe opacities and Interval new region of consolidation within the right lower lobe, possible atelectasis/inflammation/infection. -BC is negative, UC is showing Klebsiella/Enterobacter (UA is clean and the patient is asymptomatic, less likely UTI) -Infectious disease is following, nasal MRSA is negative -Repeat blood culture negative -Continue with Meropenem through -Ordered for Midline Respiratory failure 08/13/2018 04/05/2019 HIT (heparin-induced thrombocytopenia) 9 04/05/2019 SANTANA (acute kidney injury) 08/05/20182018 Last Assessment & Plan: -AKD developed after her prolonged ICU course -Cr is improving -Daily BMP Nicotine use disorder, F17.2 07/19/2018 ARDS (adult respiratory distress syndrome) 07/1604/05/2019 Acute respiratory failure with hypoxia and hyper capnia 07/16/2018 04/05/2019 Pneumonia of both lower lobes due to infectious organism 07/16/2018 04/05/2019 Septic shock 07/16/2018 04/05/2019 Acute encephalopathy 07/16/2018 08/23/2018 Encounter for sterilization 03/11/201702/21 Overview: Risks, benefits and alternatives to sterilization have been discussed with the patient. She declines reversible options including LARC. She understands sterilization is permanent, irreversible, risks of failure, regret and ectopic. In addition she understands there are surgical risks as well. Her questions were answered to her satisfaction and consent was signed. Leatha Kumar MD Gestational diabetes mellitus, class A1 11/18/19 17 07/07/2017 Overview: November 17, 2016 Abnormal 3 hr at 11w. Leatha Kumar MD Unplanned 11/03/2016 07/07/2017 Overview: 11/03/2016This is a surprise . Patient states she got pregnanct on oral contraceptives.The FOB is the father of her previous son. Patient desires PPTL. TKRN Obesity in 11/03/2016 07/07/2017 Overview: 11/03/2016She is obese. Will plan on GCT @ [facility]. TKRN Tobacco use during , antepartum 017 07/07/2017 Overview: 11/03/2016Pt smokes 1/2 pack a day of cigarettes. Discussed risks of smoking during . Advised pt to quit.TKRN Nausea/vomiting in 11/03/2016 Overview: 11/03/2016 Patient is complaining of nausea and occasional vomiting in . Dietary considerations discussed. Patient has tried Vitamin B6 and unisom with little relief. Dr Kumar wrote order for Phenergan. Advised patient to call/come in if she is unable to keep any food or fluids down in a 24-hour period. TKRN Abnormal glucose complicating 10/13/19 15 11/17/2016 Overview: November 08, 2016 Needs 3 hr. Leatha Kumar MD Supervision of other high-risk 015 01/22/2015 Overview: July 03, 2014 elevated WBC at [facility], had infection at that time, trending down. monitor. Leatha Kumar MD Request for sterilization 06/30/20142015 Overview: June 30, 2014 Desires tubal. VALENTIN given. Leatha Kumar MD October 11, 2014 Signed tubal papers. Leatha Kumar MD Anxiety in , antepartum 05/26/2014 01/22/2015 Overview: 05/26/14 - discussed R/B/A & use of medication in , she will cont effexor, stop ativan - KJ Poor support system complicating 05/2601/22/2015 Overview: 05/26/14 - patient is from her - KJ Tobacco use during 05/26/201404/2014 Overview: 05/26/14 - advised on risks & cessation - KJ Obesity complicating 05/26/2014 1 03/24/2014 Overview: 05/26/14 - early GCT today - KJ Generalized abdominal pain 02/21/201307/03 Pelvic pain complicating 02/21/2013 07/05/2013 Frequency of urination 02/21/2013 5 NO SHOW 01/12/2013 07/03/2014 Tobacco abuse 04/12/2012 07/03/2014 Obesity (BMI 30.0-34.9) 04/12/2012 08/20/19 18 Rebound headache 04/12/2012 01/22/2015 Unspecified high-risk 06/19/2008 04/12/2012 Supervision of other normal 12/07/2007 06/19/2008 Other threatened labor, unspecified as to episod e of care 11/29/2005 01/14/2006 Supervision of other normal 08/07/2005 01/14/2006 documented as of this encounter (statuses as of 07/16/2021) [facility] of Past illness Narrative* Problem Noted Date Resolved Date Severe sepsis 09/11/2018 04/05/2019 Last Assessment & Plan: -The patient was tachycardic, tachypnic, febrile, WBC 31 and LA 1.6. -S/p fluid resuscitation, BP is stable -likely 2/2 HCP, CT chest showed Interval decreased cavitary component and size of right upper lobe pulmonary opacities. Interval new cavitation involving left lower lobe opacities and Interval new region of consolidation within the right lower lobe, possible atelectasis/inflammation/infection. -BC is negative, UC is showing Klebsiella/Enterobacter (UA is clean and the patient is asymptomatic, less likely UTI) -Infectious disease is following, nasal MRSA is negative -Repeat blood culture negative -Continue with Meropenem through -Ordered for Midline Respiratory failure 08/13/2018 04/05/2019 HIT (heparin-induced thrombocytopenia) 9 04/05/2019 SANTANA (acute kidney injury) 08/05/20182018 Last Assessment & Plan: -AKD developed after her prolonged ICU course -Cr is improving -Daily BMP Nicotine use disorder, F17.2 07/19/2018 ARDS (adult respiratory distress syndrome) 07/1604/05/2019 Acute respiratory failure with hypoxia and hyper capnia 07/16/2018 04/05/2019 Pneumonia of both lower lobes due to infectious organism 07/16/2018 04/05/2019 Septic shock 07/16/2018 04/05/2019 Acute encephalopathy 07/16/2018 08/23/2018 Encounter for sterilization 03/11/201702/21 Overview: Risks, benefits and alternatives to sterilization have been discussed with the patient. She declines reversible options including LARC. She understands sterilization is permanent, irreversible, risks of failure, regret and ectopic. In addition she understands there are surgical risks as well. Her questions were answered to her satisfaction and consent was signed. Leatha Kumar MD Gestational diabetes mellitus, class A1 11/18/19 17 07/07/2017 Overview: November 17, 2016 Abnormal 3 hr at 11w. Leatha Kumar MD Unplanned 11/03/2016 07/07/2017 Overview: 11/03/2016This is a surprise . Patient states she got pregnanct on oral contraceptives.The FOB is the father of her previous son. Patient desires PPTL. TKRN Obesity in 11/03/2016 07/07/2017 Overview: 11/03/2016She is obese. Will plan on GCT @ [facility]. TKRN Tobacco use during , antepartum 017 07/07/2017 Overview: 11/03/2016Pt smokes 1/2 pack a day of cigarettes. Discussed risks of smoking during . Advised pt to quit.TKRN Nausea/vomiting in 11/03/2016 Overview: 11/03/2016 Patient is complaining of nausea and occasional vomiting in . Dietary considerations discussed. Patient has tried Vitamin B6 and unisom with little relief. Dr Kumar wrote order for Phenergan. Advised patient to call/come in if she is unable to keep any food or fluids down in a 24-hour period. TKRN Abnormal glucose complicating 10/13/19 15 11/17/2016 Overview: November 08, 2016 Needs 3 hr. Leatha Kumar MD Supervision of other high-risk 015 01/22/2015 Overview: July 03, 2014 elevated WBC at [facility], had infection at that time, trending down. monitor. Leatha Kumar MD Request for sterilization 06/30/20142015 Overview: June 30, 2014 Desires tubal. VALENTIN given. Leatha Kumar MD October 11, 2014 Signed tubal papers. Leatha Kumar MD Anxiety in , antepartum 05/26/2014 01/22/2015 Overview: 05/26/14 - discussed R/B/A & use of medication in , she will cont effexor, stop ativan - KJ Poor support system complicating 05/2601/22/2015 Overview: 05/26/14 - patient is from her - KJ Tobacco use during 05/26/201404/2014 Overview: 05/26/14 - advised on risks & cessation - KJ Obesity complicating 05/26/2014 1 03/24/2014 Overview: 05/26/14 - early GCT today - KJ Generalized abdominal pain 02/21/201307/03 Pelvic pain complicating 02/21/2013 07/05/2013 Frequency of urination 02/21/2013 5 NO SHOW 01/12/2013 07/03/2014 Tobacco abuse 04/12/2012 07/03/2014 Obesity (BMI 30.0-34.9) 04/12/2012 08/20/19 18 Rebound headache 04/12/2012 01/22/2015 Unspecified high-risk 06/19/2008 04/12/2012 Supervision of other normal 12/07/2007 06/19/2008 Other threatened labor, unspecified as to episod e of care 11/29/2005 01/14/2006 Supervision of other normal 08/07/2005 01/14/2006 documented as of this encounter (statuses as of 07/22/2021) [facility] Past illness Narrative* Problem Noted Date Resolved Date Severe sepsis 09/11/2018 04/05/2019 Last Assessment & Plan: -The patient was tachycardic, tachypnic, febrile, WBC 31 and LA 1.6. -S/p fluid resuscitation, BP is stable -likely 2/2 HCP, CT chest showed Interval decreased cavitary component and size of right upper lobe pulmonary opacities. Interval new cavitation involving left lower lobe opacities and Interval new region of consolidation within the right lower lobe, possible atelectasis/inflammation/infection. -BC is negative, UC is showing Klebsiella/Enterobacter (UA is clean and the patient is asymptomatic, less likely UTI) -Infectious disease is following, nasal MRSA is negative -Repeat blood culture negative -Continue with Meropenem through -Ordered for Midline Respiratory failure 08/13/2018 04/05/2019 HIT (heparin-induced thrombocytopenia) 9 04/05/2019 SANTANA (acute kidney injury) 08/05/20182018 Last Assessment & Plan: -AKD developed after her prolonged ICU course -Cr is improving -Daily BMP Nicotine use disorder, F17.2 07/19/2018 ARDS (adult respiratory distress syndrome) 07/1604/05/2019 Acute respiratory failure with hypoxia and hyper capnia 07/16/2018 04/05/2019 Pneumonia of both lower lobes due to infectious organism 07/16/2018 04/05/2019 Septic shock 07/16/2018 04/05/2019 Acute encephalopathy 07/16/2018 08/23/2018 Encounter for sterilization 03/11/201702/21 Overview: Risks, benefits and alternatives to sterilization have been discussed with the patient. She declines reversible options including LARC. She understands sterilization is permanent, irreversible, risks of failure, regret and ectopic. In addition she understands there are surgical risks as well. Her questions were answered to her satisfaction and consent was signed. Leatha Kumar MD Gestational diabetes mellitus, class A1 11/18/1907/07/2017 Overview: November 17, 2016 Abnormal 3 hr at 11w. Leatha Kumar MD Unplanned 11/03/2016 07/07/2017 Overview: 11/03/2016This is a surprise . Patient states she got pregnanct on oral contraceptives.The FOB is the father of her previous son. Patient desires PPTL. TKRN Obesity in 11/03/2016 07/07/2017 Overview: 11/03/2016She is obese. Will plan on GCT @ [facility]. TKRN Tobacco use during , antepartum 017 07/07/2017 Overview: 11/03/2016Pt smokes 1/2 pack a day of cigarettes. Discussed risks of smoking during . Advised pt to quit.TKRN Nausea/vomiting in 11/03/2016 Overview: 11/03/2016 Patient is complaining of nausea and occasional vomiting in . Dietary considerations discussed. Patient has tried Vitamin B6 and unisom with little relief. Dr Kmuar wrote order for Phenergan. Advised patient to call/come in if she is unable to keep any food or fluids down in a 24-hour period. TKRN Abnormal glucose complicating 10/13/19 15 11/17/2016 Overview: November 08, 2016 Needs 3 hr. Leatha Kumar MD Supervision of other high-risk 015 01/22/2015 Overview: July 03, 2014 elevated WBC at [facility], had infection at that time, trending down. monitor. Leatha Kumar MD Request for sterilization 06/30/20142015 Overview: June 30, 2014 Desires tubal. VALENTIN given. Leatha Kumar MD October 11, 2014 Signed tubal papers. Leatha Kumar MD Anxiety in , antepartum 05/26/2014 01/22/2015 Overview: 05/26/14 - discussed R/B/A & use of medication in , she will cont effexor, stop ativan - KJ Poor support system complicating 05/2601/22/2015 Overview: 05/26/14 - patient is from her - KJ Tobacco use during 05/26/201404/2014 Overview: 05/26/14 - advised on risks & cessation - KJ Obesity complicating 05/26/201403/2403/24/2014 Overview: 05/26/14 - early GCT today - KJ Generalized abdominal pain 02/21/201307/03 Pelvic pain complicating 02/21/2013 07/05/2013 Frequency of urination 02/21/2013 5 NO SHOW 01/12/2013 07/03/2014 Tobacco abuse 04/12/2012 07/03/2014 Obesity (BMI 30.0-34.9) 04/12/2012 08/20/19 18 Rebound headache 04/12/2012 01/22/2015 Unspecified high-risk 06/19/2008 04/12/2012 Supervision of other normal 12/07/2007 06/19/2008 Other threatened labor, unspecified as to episod e of care 11/29/2005 01/14/2006 Supervision of other normal 08/07/2005 01/14/2006 documented as of this encounter (statuses as of 07/29/2021) [facility] History of Past illness Narrative* Problem Noted Date Resolved Date Severe sepsis 09/11/2018 04/05/2019 Last Assessment & Plan: -The patient was tachycardic, tachypnic, febrile, WBC 31 and LA 1.6. -S/p fluid resuscitation, BP is stable -likely 2/2 HCP, CT chest showed Interval decreased cavitary component and size of right upper lobe pulmonary opacities. Interval new cavitation involving left lower lobe opacities and Interval new region of consolidation within the right lower lobe, possible atelectasis/inflammation/infection. -BC is negative, UC is showing Klebsiella/Enterobacter (UA is clean and the patient is asymptomatic, less likely UTI) -Infectious disease is following, nasal MRSA is negative -Repeat blood culture negative -Continue with Meropenem through -Ordered for Midline Respiratory failure 08/13/2018 04/05/2019 HIT (heparin-induced thrombocytopenia) 9 04/05/2019 SANTANA (acute kidney injury) 08/05/20182018 Last Assessment & Plan: -AKD developed after her prolonged ICU course -Cr is improving -Daily BMP Nicotine use disorder, F17.2 07/19/2018 ARDS (adult respiratory distress syndrome) 07/1604/05/2019 Acute respiratory failure with hypoxia and hyper capnia 07/16/2018 04/05/2019 Pneumonia of both lower lobes due to infectious organism 07/16/2018 04/05/2019 Septic shock 07/16/2018 04/05/2019 Acute encephalopathy 07/16/2018 08/23/2018 Encounter for sterilization 03/11/201702/21 Overview: Risks, benefits and alternatives to sterilization have been discussed with the patient. She declines reversible options including LARC. She understands sterilization is permanent, irreversible, risks of failure, regret and ectopic. In addition she understands there are surgical risks as well. Her questions were answered to her satisfaction and consent was signed. Leatha Kumar MD Gestational diabetes mellitus, class A1 11/18/19 17 07/07/2017 Overview: November 17, 2016 Abnormal 3 hr at 11w. eLatha Kumar MD Unplanned 11/03/2016 07/07/2017 Overview: 11/03/2016This is a surprise . Patient states she got pregnanct on oral contraceptives.The FOB is the father of her previous son. Patient desires PPTL. TKRN Obesity in 11/03/2016 07/07/2017 Overview: 11/03/2016She is obese. Will plan on GCT @ [facility]. TKRN Tobacco use during , antepartum 017 07/07/2017 Overview: 11/03/2016Pt smokes 1/2 pack a day of cigarettes. Discussed risks of smoking during . Advised pt to quit.TKRN Nausea/vomiting in 11/03/2016 Overview: 11/03/2016 Patient is complaining of nausea and occasional vomiting in . Dietary considerations discussed. Patient has tried Vitamin B6 and unisom with little relief. Dr Kumar wrote order for Phenergan. Advised patient to call/come in if she is unable to keep any food or fluids down in a 24-hour period. TKRN Abnormal glucose complicating 10/13/19 15 11/17/2016 Overview: November 08, 2016 Needs 3 hr. Leatha Kumar MD Supervision of other high-risk 015 01/22/2015 Overview: July 03, 2014 elevated WBC at [facility], had infection at that time, trending down. monitor. Leatha Kumar MD Request for sterilization 06/30/20142015 Overview: June 30, 2014 Desires tubal. VALENTIN given. Leatha Kumar MD October 11, 2014 Signed tubal papers. Leatha Kumar MD Anxiety in , antepartum 05/26/2014 01/22/2015 Overview: 05/26/14 - discussed R/B/A & use of medication in , she will cont effexor, stop ativan - KJ Poor support system complicating 05/2601/22/2015 Overview: 05/26/14 - patient is from her - KJ Tobacco use during 05/26/201404/2014 Overview: 05/26/14 - advised on risks & cessation - KJ Obesity complicating 05/26/2014 1 03/24/2014 Overview: 05/26/14 - early GCT today - KJ Generalized abdominal pain 02/21/201307/03 Pelvic pain complicating 02/21/2013 07/05/2013 Frequency of urination 02/21/2013 5 NO SHOW 01/12/2013 07/03/2014 Tobacco abuse 04/12/2012 07/03/2014 Obesity (BMI 30.0-34.9) 04/12/2012 08/20/19 18 Rebound headache 04/12/2012 01/22/2015 Unspecified high-risk 06/19/2008 04/12/2012 Supervision of other normal 12/07/2007 06/19/2008 Other threatened labor, unspecified as to episod e of care 11/29/2005 01/14/2006 Supervision of other normal 08/07/2005 01/14/2006 documented as of this encounter (statuses as of 07/30/2021) [facility] History of Past illness Narrative* Problem Noted Date Resolved Date Severe sepsis 09/11/2018 04/05/2019 Last Assessment & Plan: -The patient was tachycardic, tachypnic, febrile, WBC 31 and LA 1.6. -S/p fluid resuscitation, BP is stable -likely 2/2 HCP, CT chest showed Interval decreased cavitary component and size of right upper lobe pulmonary opacities. Interval new cavitation involving left lower lobe opacities and Interval new region of consolidation within the right lower lobe, possible atelectasis/inflammation/infection. -BC is negative, UC is showing Klebsiella/Enterobacter (UA is clean and the patient is asymptomatic, less likely UTI) -Infectious disease is following, nasal MRSA is negative -Repeat blood culture negative -Continue with Meropenem through -Ordered for Midline Respiratory failure 08/13/2018 04/05/2019 HIT (heparin-induced thrombocytopenia) 9 04/05/2019 SANTANA (acute kidney injury) 08/05/20182018 Last Assessment & Plan: -AKD developed after her prolonged ICU course -Cr is improving -Daily BMP Nicotine use disorder, F17.2 07/19/2018 ARDS (adult respiratory distress syndrome) 07/1604/05/2019 Acute respiratory failure with hypoxia and hyper capnia 07/16/2018 04/05/2019 Pneumonia of both lower lobes due to infectious organism 07/16/2018 04/05/2019 Septic shock 07/16/2018 04/05/2019 Acute encephalopathy 07/16/2018 08/23/2018 Encounter for sterilization 03/11/201702/21 Overview: Risks, benefits and alternatives to sterilization have been discussed with the patient. She declines reversible options including LARC. She understands sterilization is permanent, irreversible, risks of failure, regret and ectopic. In addition she understands there are surgical risks as well. Her questions were answered to her satisfaction and consent was signed. Leatha Kumar MD Gestational diabetes mellitus, class A1 11/18/19 17 07/07/2017 Overview: November 17, 2016 Abnormal 3 hr at 11w. Leatha Kumar MD Unplanned 11/03/2016 07/07/2017 Overview: 11/03/2016This is a surprise . Patient states she got pregnanct on oral contraceptives.The FOB is the father of her previous son. Patient desires PPTL. TKRN Obesity in 11/03/2016 07/07/2017 Overview: 11/03/2016She is obese. Will plan on GCT @ [facility]. TKRN Tobacco use during , antepartum 017 07/07/2017 Overview: 11/03/2016Pt smokes 1/2 pack a day of cigarettes. Discussed risks of smoking during . Advised pt to quit.TKRN Nausea/vomiting in 11/03/2016 Overview: 11/03/2016 Patient is complaining of nausea and occasional vomiting in . Dietary considerations discussed. Patient has tried Vitamin B6 and unisom with little relief. Dr Kumar wrote order for Phenergan. Advised patient to call/come in if she is unable to keep any food or fluids down in a 24-hour period. TKRN Abnormal glucose complicating 10/13/19 15 11/17/2016 Overview: November 08, 2016 Needs 3 hr. Leatha Kumar MD Supervision of other high-risk 015 01/22/2015 Overview: July 03, 2014 elevated WBC at [facility], had infection at that time, trending down. monitor. Leatha Kumar MD Request for sterilization 06/30/20142015 Overview: June 30, 2014 Desires tubal. VALENTIN given. Leatha Kumar MD October 11, 2014 Signed tubal papers. Leatha Kumar MD Anxiety in , antepartum 05/26/2014 01/22/2015 Overview: 05/26/14 - discussed R/B/A & use of medication in , she will cont effexor, stop ativan - KJ Poor support system complicating 05/2601/22/2015 Overview: 05/26/14 - patient is from her - KJ Tobacco use during 05/26/201404/2014 Overview: 05/26/14 - advised on risks & cessation - KJ Obesity complicating 05/26/2014 1 03/24/2014 Overview: 05/26/14 - early GCT today - KJ Generalized abdominal pain 02/21/201307/03 Pelvic pain complicating 02/21/2013 07/05/2013 Frequency of urination 02/21/2013 5 NO SHOW 01/12/2013 07/03/2014 Tobacco abuse 04/12/2012 07/03/2014 Obesity (BMI 30.0-34.9) 04/12/2012 08/20/19 18 Rebound headache 04/12/2012 01/22/2015 Unspecified high-risk 06/19/2008 04/12/2012 Supervision of other normal 12/07/2007 06/19/2008 Other threatened labor, unspecified as to episod e of care 11/29/2005 01/14/2006 Supervision of other normal 08/07/2005 01/14/2006 documented as of this encounter (statuses as of 08/20/2021) [facility] History of Past illness Narrative* Problem Noted Date Resolved Date Severe sepsis 09/11/2018 04/05/2019 Last Assessment & Plan: -The patient was tachycardic, tachypnic, febrile, WBC 31 and LA 1.6. -S/p fluid resuscitation, BP is stable -likely 2/2 HCP, CT chest showed Interval decreased cavitary component and size of right upper lobe pulmonary opacities. Interval new cavitation involving left lower lobe opacities and Interval new region of consolidation within the right lower lobe, possible atelectasis/inflammation/infection. -BC is negative, UC is showing Klebsiella/Enterobacter (UA is clean and the patient is asymptomatic, less likely UTI) -Infectious disease is following, nasal MRSA is negative -Repeat blood culture negative -Continue with Meropenem through -Ordered for Midline Respiratory failure 08/13/2018 04/05/2019 HIT (heparin-induced thrombocytopenia) 9 04/05/2019 SANTANA (acute kidney injury) 08/05/20182018 Last Assessment & Plan: -AKD developed after her prolonged ICU course -Cr is improving -Daily BMP Nicotine use disorder, F17.2 07/19/2018 ARDS (adult respiratory distress syndrome) 07/1604/05/2019 Acute respiratory failure with hypoxia and hyper capnia 07/16/2018 04/05/2019 Pneumonia of both lower lobes due to infectious organism 07/16/2018 04/05/2019 Septic shock 07/16/2018 04/05/2019 Acute encephalopathy 07/16/2018 08/23/2018 Encounter for sterilization 03/11/201702/21 Overview: Risks, benefits and alternatives to sterilization have been discussed with the patient. She declines reversible options including LARC. She understands sterilization is permanent, irreversible, risks of failure, regret and ectopic. In addition she understands there are surgical risks as well. Her questions were answered to her satisfaction and consent was signed. Leatha Kumar MD Gestational diabetes mellitus, class A1 11/18/1907/07/2017 Overview: November 17, 2016 Abnormal 3 hr at 11w. Leatha Kumar MD Unplanned 11/03/2016 07/07/2017 Overview: 11/03/2016This is a surprise . Patient states she got pregnanct on oral contraceptives.The FOB is the father of her previous son. Patient desires PPTL. TKRN Obesity in 11/03/2016 07/07/2017 Overview: 11/03/2016She is obese. Will plan on GCT @ [facility]. TKRN Tobacco use during , antepartum 017 07/07/2017 Overview: 11/03/2016Pt smokes 1/2 pack a day of cigarettes. Discussed risks of smoking during . Advised pt to quit.TKRN Nausea/vomiting in 11/03/2016 Overview: 11/03/2016 Patient is complaining of nausea and occasional vomiting in . Dietary considerations discussed. Patient has tried Vitamin B6 and unisom with little relief. Dr Kumar wrote order for Phenergan. Advised patient to call/come in if she is unable to keep any food or fluids down in a 24-hour period. TKRN Abnormal glucose complicating 10/13/19 15 11/17/2016 Overview: November 08, 2016 Needs 3 hr. Leatha Kumar MD Supervision of other high-risk 015 01/22/2015 Overview: July 03, 2014 elevated WBC at [facility], had infection at that time, trending down. monitor. Leatha Kumar MD Request for sterilization 06/30/20142015 Overview: June 30, 2014 Desires tubal. VALENTIN given. Leatha Kumar MD October 11, 2014 Signed tubal papers. Leatha Kumar MD Anxiety in , antepartum 05/26/2014 01/22/2015 Overview: 05/26/14 - discussed R/B/A & use of medication in , she will cont effexor, stop ativan - KJ Poor support system complicating 05/2601/22/2015 Overview: 05/26/14 - patient is from her - KJ Tobacco use during 05/26/201404/2014 Overview: 05/26/14 - advised on risks & cessation - KJ Obesity complicating 05/26/2014 1 03/24/2014 Overview: 05/26/14 - early GCT today - KJ Generalized abdominal pain 02/21/201307/03 Pelvic pain complicating 02/21/2013 07/05/2013 Frequency of urination 02/21/2013 5 NO SHOW 01/12/2013 07/03/2014 Tobacco abuse 04/12/2012 07/03/2014 Obesity (BMI 30.0-34.9) 04/12/2012 08/20/19 18 Rebound headache 04/12/2012 01/22/2015 Unspecified high-risk 06/19/2008 04/12/2012 Supervision of other normal 12/07/2007 06/19/2008 Other threatened labor, unspecified as to episod e of care 11/29/2005 01/14/2006 Supervision of other normal 08/07/2005 01/14/2006 documented as of this encounter (statuses as of 08/21/2021) [facility] History of Past illness Narrative* Problem Noted Date Resolved Date Severe sepsis 09/11/2018 04/05/2019 Last Assessment & Plan: -The patient was tachycardic, tachypnic, febrile, WBC 31 and LA 1.6. -S/p fluid resuscitation, BP is stable -likely 2/2 HCP, CT chest showed Interval decreased cavitary component and size of right upper lobe pulmonary opacities. Interval new cavitation involving left lower lobe opacities and Interval new region of consolidation within the right lower lobe, possible atelectasis/inflammation/infection. -BC is negative, UC is showing Klebsiella/Enterobacter (UA is clean and the patient is asymptomatic, less likely UTI) -Infectious disease is following, nasal MRSA is negative -Repeat blood culture negative -Continue with Meropenem through -Ordered for Midline Respiratory failure 08/13/2018 04/05/2019 HIT (heparin-induced thrombocytopenia) 9 04/05/2019 SANTANA (acute kidney injury) 08/05/20182018 Last Assessment & Plan: -AKD developed after her prolonged ICU course -Cr is improving -Daily BMP Nicotine use disorder, F17.2 07/19/2018 ARDS (adult respiratory distress syndrome) 07/1604/05/2019 Acute respiratory failure with hypoxia and hyper capnia 07/16/2018 04/05/2019 Pneumonia of both lower lobes due to infectious organism 07/16/2018 04/05/2019 Septic shock 07/16/2018 04/05/2019 Acute encephalopathy 07/16/2018 08/23/2018 Encounter for sterilization 03/11/201702/21 Overview: Risks, benefits and alternatives to sterilization have been discussed with the patient. She declines reversible options including LARC. She understands sterilization is permanent, irreversible, risks of failure, regret and ectopic. In addition she understands there are surgical risks as well. Her questions were answered to her satisfaction and consent was signed. Leatha Kumar MD Gestational diabetes mellitus, class A1 11/18/1907/07/2017 Overview: November 17, 2016 Abnormal 3 hr at 11w. Leatha Kumar MD Unplanned 11/03/2016 07/07/2017 Overview: 11/03/2016This is a surprise . Patient states she got pregnanct on oral contraceptives.The FOB is the father of her previous son. Patient desires PPTL. TKRN Obesity in 11/03/2016 07/07/2017 Overview: 11/03/2016She is obese. Will plan on GCT @ [facility]. TKRN Tobacco use during , antepartum 017 07/07/2017 Overview: 11/03/2016Pt smokes 1/2 pack a day of cigarettes. Discussed risks of smoking during . Advised pt to quit.TKRN Nausea/vomiting in 11/03/2016 Overview: 11/03/2016 Patient is complaining of nausea and occasional vomiting in . Dietary considerations discussed. Patient has tried Vitamin B6 and unisom with little relief. Dr Kumar wrote order for Phenergan. Advised patient to call/come in if she is unable to keep any food or fluids down in a 24-hour period. TKRN Abnormal glucose complicating 10/13/19 15 11/17/2016 Overview: November 08, 2016 Needs 3 hr. Leatha Kumar MD Supervision of other high-risk 015 01/22/2015 Overview: July 03, 2014 elevated WBC at [facility], had infection at that time, trending down. monitor. Leatha Kumar MD Request for sterilization 06/30/20142015 Overview: June 30, 2014 Desires tubal. VALENTIN given. Leatha Kumar MD October 11, 2014 Signed tubal papers. Leatha Kumar MD Anxiety in , antepartum 05/26/2014 01/22/2015 Overview: 05/26/14 - discussed R/B/A & use of medication in , she will cont effexor, stop ativan - KJ Poor support system complicating 05/2601/22/2015 Overview: 05/26/14 - patient is from her - KJ Tobacco use during 05/26/201404/2014 Overview: 05/26/14 - advised on risks & cessation - KJ Obesity complicating 05/26/2014 1 03/24/2014 Overview: 05/26/14 - early GCT today - KJ Generalized abdominal pain 02/21/201307/03 Pelvic pain complicating 02/21/2013 07/05/2013 Frequency of urination 02/21/2013 5 NO SHOW 01/12/2013 07/03/2014 Tobacco abuse 04/12/2012 07/03/2014 Obesity (BMI 30.0-34.9) 04/12/2012 08/20/19 18 Rebound headache 04/12/2012 01/22/2015 Unspecified high-risk 06/19/2008 04/12/2012 Supervision of other normal 12/07/2007 06/19/2008 Other threatened labor, unspecified as to episod e of care 11/29/2005 01/14/2006 Supervision of other normal 08/07/2005 01/14/2006 documented as of this encounter (statuses as of 09/05/2021) [facility] History of Past illness Narrative* Problem Noted Date Resolved Date Severe sepsis 09/11/2018 04/05/2019 Last Assessment & Plan: -The patient was tachycardic, tachypnic, febrile, WBC 31 and LA 1.6. -S/p fluid resuscitation, BP is stable -likely 2/2 HCP, CT chest showed Interval decreased cavitary component and size of right upper lobe pulmonary opacities. Interval new cavitation involving left lower lobe opacities and Interval new region of consolidation within the right lower lobe, possible atelectasis/inflammation/infection. -BC is negative, UC is showing Klebsiella/Enterobacter (UA is clean and the patient is asymptomatic, less likely UTI) -Infectious disease is following, nasal MRSA is negative -Repeat blood culture negative -Continue with Meropenem through -Ordered for Midline Respiratory failure 08/13/2018 04/05/2019 HIT (heparin-induced thrombocytopenia) 9 04/05/2019 SANTANA (acute kidney injury) 08/05/20182018 Last Assessment & Plan: -AKD developed after her prolonged ICU course -Cr is improving -Daily BMP Nicotine use disorder, F17.2 07/19/2018 ARDS (adult respiratory distress syndrome) 07/1604/05/2019 Acute respiratory failure with hypoxia and hyper capnia 07/16/2018 04/05/2019 Pneumonia of both lower lobes due to infectious organism 07/16/2018 04/05/2019 Septic shock 07/16/2018 04/05/2019 Acute encephalopathy 07/16/2018 08/23/2018 Encounter for sterilization 03/11/201702/21 Overview: Risks, benefits and alternatives to sterilization have been discussed with the patient. She declines reversible options including LARC. She understands sterilization is permanent, irreversible, risks of failure, regret and ectopic. In addition she understands there are surgical risks as well. Her questions were answered to her satisfaction and consent was signed. Leatha Kumar MD Gestational diabetes mellitus, class A1 11/18/19 17 07/07/2017 Overview: November 17, 2016 Abnormal 3 hr at 11w. Leatha Kumar MD Unplanned 11/03/2016 07/07/2017 Overview: 11/03/2016This is a surprise . Patient states she got pregnanct on oral contraceptives.The FOB is the father of her previous son. Patient desires PPTL. TKRN Obesity in 11/03/2016 07/07/2017 Overview: 11/03/2016She is obese. Will plan on GCT @ [facility]. TKRN Tobacco use during , antepartum 017 07/07/2017 Overview: 11/03/2016Pt smokes 1/2 pack a day of cigarettes. Discussed risks of smoking during . Advised pt to quit.TKRN Nausea/vomiting in 11/03/2016 Overview: 11/03/2016 Patient is complaining of nausea and occasional vomiting in . Dietary considerations discussed. Patient has tried Vitamin B6 and unisom with little relief. Dr Kumar wrote order for Phenergan. Advised patient to call/come in if she is unable to keep any food or fluids down in a 24-hour period. TKRN Abnormal glucose complicating 10/13/19 15 11/17/2016 Overview: November 08, 2016 Needs 3 hr. Leatha Kumar MD Supervision of other high-risk 015 01/22/2015 Overview: July 03, 2014 elevated WBC at [facility], had infection at that time, trending down. monitor. Leatha Kumar MD Request for sterilization 06/30/20142015 Overview: June 30, 2014 Desires tubal. VALENTIN given. Leatha Kumar MD October 11, 2014 Signed tubal papers. Leatha Kumar MD Anxiety in , antepartum 05/26/2014 01/22/2015 Overview: 05/26/14 - discussed R/B/A & use of medication in , she will cont effexor, stop ativan - KJ Poor support system complicating 05/2601/22/2015 Overview: 05/26/14 - patient is from her - KJ Tobacco use during 05/26/201404/2014 Overview: 05/26/14 - advised on risks & cessation - KJ Obesity complicating 05/26/2014 1 03/24/2014 Overview: 05/26/14 - early GCT today - KJ Generalized abdominal pain 02/21/201307/03 Pelvic pain complicating 02/21/2013 07/05/2013 Frequency of urination 02/21/2013 5 NO SHOW 01/12/2013 07/03/2014 Tobacco abuse 04/12/2012 07/03/2014 Obesity (BMI 30.0-34.9) 04/12/2012 08/20/19 18 Rebound headache 04/12/2012 01/22/2015 Unspecified high-risk 06/19/2008 04/12/2012 Supervision of other normal 12/07/2007 06/19/2008 Other threatened labor, unspecified as to episod e of care 11/29/2005 01/14/2006 Supervision of other normal 08/07/2005 01/14/2006 documented as of this encounter (statuses as of 09/10/2021) [facility]2019 History of Past illness Narrative* Problem Noted Date Resolved Date Severe sepsis 09/11/2018 04/05/2019 Last Assessment & Plan: -The patient was tachycardic, tachypnic, febrile, WBC 31 and LA 1.6. -S/p fluid resuscitation, BP is stable -likely 2/2 HCP, CT chest showed Interval decreased cavitary component and size of right upper lobe pulmonary opacities. Interval new cavitation involving left lower lobe opacities and Interval new region of consolidation within the right lower lobe, possible atelectasis/inflammation/infection. -BC is negative, UC is showing Klebsiella/Enterobacter (UA is clean and the patient is asymptomatic, less likely UTI) -Infectious disease is following, nasal MRSA is negative -Repeat blood culture negative -Continue with Meropenem through -Ordered for Midline Respiratory failure 08/13/2018 04/05/2019 HIT (heparin-induced thrombocytopenia) 9 04/05/2019 SANTANA (acute kidney injury) 08/05/20182018 Last Assessment & Plan: -AKD developed after her prolonged ICU course -Cr is improving -Daily BMP Nicotine use disorder, F17.2 07/19/2018 ARDS (adult respiratory distress syndrome) 07/1604/05/2019 Acute respiratory failure with hypoxia and hyper capnia 07/16/2018 04/05/2019 Pneumonia of both lower lobes due to infectious organism 07/16/2018 04/05/2019 Septic shock 07/16/2018 04/05/2019 Acute encephalopathy 07/16/2018 08/23/2018 Encounter for sterilization 03/11/201702/21 Overview: Risks, benefits and alternatives to sterilization have been discussed with the patient. She declines reversible options including LARC. She understands sterilization is permanent, irreversible, risks of failure, regret and ectopic. In addition she understands there are surgical risks as well. Her questions were answered to her satisfaction and consent was signed. Leatha Kumar MD Gestational diabetes mellitus, class A1 11/18/19 17 07/07/2017 Overview: November 17, 2016 Abnormal 3 hr at 11w. Leatha Kumar MD Unplanned 11/03/2016 07/07/2017 Overview: 11/03/2016This is a surprise . Patient states she got pregnanct on oral contraceptives.The FOB is the father of her previous son. Patient desires PPTL. TKRN Obesity in 11/03/2016 07/07/2017 Overview: 11/03/2016She is obese. Will plan on GCT @ [facility]. TKRN Tobacco use during , antepartum 017 07/07/2017 Overview: 11/03/2016Pt smokes 1/2 pack a day of cigarettes. Discussed risks of smoking during . Advised pt to quit.TKRN Nausea/vomiting in 11/03/2016 Overview: 11/03/2016 Patient is complaining of nausea and occasional vomiting in . Dietary considerations discussed. Patient has tried Vitamin B6 and unisom with little relief. Dr Kumar wrote order for Phenergan. Advised patient to call/come in if she is unable to keep any food or fluids down in a 24-hour period. TKRN Abnormal glucose complicating 10/13/19 15 11/17/2016 Overview: November 08, 2016 Needs 3 hr. Leatha Kumar MD Supervision of other high-risk 015 01/22/2015 Overview: July 03, 2014 elevated WBC at [facility], had infection at that time, trending down. monitor. Leatha Kumar MD Request for sterilization 06/30/20142015 Overview: June 30, 2014 Desires tubal. VALENTIN given. Leatha Kumar MD October 11, 2014 Signed tubal papers. Leatha Kumar MD Anxiety in , antepartum 05/26/2014 01/22/2015 Overview: 05/26/14 - discussed R/B/A & use of medication in , she will cont effexor, stop ativan - KJ Poor support system complicating 05/2601/22/2015 Overview: 05/26/14 - patient is from her - KJ Tobacco use during 05/26/201404/2014 Overview: 05/26/14 - advised on risks & cessation - KJ Obesity complicating 05/26/2014 1 03/24/2014 Overview: 05/26/14 - early GCT today - KJ Generalized abdominal pain 02/21/201307/03 Pelvic pain complicating 02/21/2013 07/05/2013 Frequency of urination 02/21/2013 5 NO SHOW 01/12/2013 07/03/2014 Tobacco abuse 04/12/2012 07/03/2014 Obesity (BMI 30.0-34.9) 04/12/2012 08/20/19 18 Rebound headache 04/12/2012 01/22/2015 Unspecified high-risk 06/19/2008 04/12/2012 Supervision of other normal 12/07/2007 06/19/2008 Other threatened labor, unspecified as to episod e of care 11/29/2005 01/14/2006 Supervision of other normal 08/07/2005 01/14/2006 documented as of this encounter (statuses as of 09/11/2021) [facility] History of Past illness Narrative* Problem Noted Date Resolved Date Severe sepsis 09/11/2018 04/05/2019 Last Assessment & Plan: -The patient was tachycardic, tachypnic, febrile, WBC 31 and LA 1.6. -S/p fluid resuscitation, BP is stable -likely 2/2 HCP, CT chest showed Interval decreased cavitary component and size of right upper lobe pulmonary opacities. Interval new cavitation involving left lower lobe opacities and Interval new region of consolidation within the right lower lobe, possible atelectasis/inflammation/infection. -BC is negative, UC is showing Klebsiella/Enterobacter (UA is clean and the patient is asymptomatic, less likely UTI) -Infectious disease is following, nasal MRSA is negative -Repeat blood culture negative -Continue with Meropenem through -Ordered for Midline Respiratory failure 08/13/2018 04/05/2019 HIT (heparin-induced thrombocytopenia) 9 04/05/2019 SANTANA (acute kidney injury) 08/05/20182018 Last Assessment & Plan: -AKD developed after her prolonged ICU course -Cr is improving -Daily BMP Nicotine use disorder, F17.2 07/19/2018 ARDS (adult respiratory distress syndrome) 07/1604/05/2019 Acute respiratory failure with hypoxia and hyper capnia 07/16/2018 04/05/2019 Pneumonia of both lower lobes due to infectious organism 07/16/2018 04/05/2019 Septic shock 07/16/2018 04/05/2019 Acute encephalopathy 07/16/2018 08/23/2018 Encounter for sterilization 03/11/201702/21 Overview: Risks, benefits and alternatives to sterilization have been discussed with the patient. She declines reversible options including LARC. She understands sterilization is permanent, irreversible, risks of failure, regret and ectopic. In addition she understands there are surgical risks as well. Her questions were answered to her satisfaction and consent was signed. Leatha Kumar MD Gestational diabetes mellitus, class A1 11/18/19 17 07/07/2017 Overview: November 17, 2016 Abnormal 3 hr at 11w. Leatha Kumar MD Unplanned 11/03/2016 07/07/2017 Overview: 11/03/2016This is a surprise . Patient states she got pregnanct on oral contraceptives.The FOB is the father of her previous son. Patient desires PPTL. TKRN Obesity in 11/03/2016 07/07/2017 Overview: 11/03/2016She is obese. Will plan on GCT @ [facility]. TKRN Tobacco use during , antepartum 017 07/07/2017 Overview: 11/03/2016Pt smokes 1/2 pack a day of cigarettes. Discussed risks of smoking during . Advised pt to quit.TKRN Nausea/vomiting in 11/03/2016 Overview: 11/03/2016 Patient is complaining of nausea and occasional vomiting in . Dietary considerations discussed. Patient has tried Vitamin B6 and unisom with little relief. Dr Kumar wrote order for Phenergan. Advised patient to call/come in if she is unable to keep any food or fluids down in a 24-hour period. TKRN Abnormal glucose complicating 10/13/19 15 11/17/2016 Overview: November 08, 2016 Needs 3 hr. Leatha Kumar MD Supervision of other high-risk 015 01/22/2015 Overview: July 03, 2014 elevated WBC at [facility], had infection at that time, trending down. monitor. Leatha Kumar MD Request for sterilization 06/30/20142015 Overview: June 30, 2014 Desires tubal. VALENTIN given. Leatha Kumar MD October 11, 2014 Signed tubal papers. Leatha Kumar MD Anxiety in , antepartum 05/26/2014 01/22/2015 Overview: 05/26/14 - discussed R/B/A & use of medication in , she will cont effexor, stop ativan - KJ Poor support system complicating 05/2601/22/2015 Overview: 05/26/14 - patient is from her - KJ Tobacco use during 05/26/201404/2014 Overview: 05/26/14 - advised on risks & cessation - KJ Obesity complicating 05/26/2014 1 03/24/2014 Overview: 05/26/14 - early GCT today - KJ Generalized abdominal pain 02/21/201307/03 Pelvic pain complicating 02/21/2013 07/05/2013 Frequency of urination 02/21/2013 5 NO SHOW 01/12/2013 07/03/2014 Tobacco abuse 04/12/2012 07/03/2014 Obesity (BMI 30.0-34.9) 04/12/2012 08/20/19 18 Rebound headache 04/12/2012 01/22/2015 Unspecified high-risk 06/19/2008 04/12/2012 Supervision of other normal 12/07/2007 06/19/2008 Other threatened labor, unspecified as to episod e of care 11/29/2005 01/14/2006 Supervision of other normal 08/07/2005 01/14/2006 documented as of this encounter (statuses as of 10/21/2021) [facility] History of Past illness Narrative* Problem Noted Date Resolved Date Severe sepsis 09/11/2018 04/05/2019 Last Assessment & Plan: -The patient was tachycardic, tachypnic, febrile, WBC 31 and LA 1.6. -S/p fluid resuscitation, BP is stable -likely 2/2 HCP, CT chest showed Interval decreased cavitary component and size of right upper lobe pulmonary opacities. Interval new cavitation involving left lower lobe opacities and Interval new region of consolidation within the right lower lobe, possible atelectasis/inflammation/infection. -BC is negative, UC is showing Klebsiella/Enterobacter (UA is clean and the patient is asymptomatic, less likely UTI) -Infectious disease is following, nasal MRSA is negative -Repeat blood culture negative -Continue with Meropenem through -Ordered for Midline Respiratory failure 08/13/2018 04/05/2019 HIT (heparin-induced thrombocytopenia) 9 04/05/2019 SANTANA (acute kidney injury) 08/05/20182018 Last Assessment & Plan: -AKD developed after her prolonged ICU course -Cr is improving -Daily BMP Nicotine use disorder, F17.2 07/19/2018 ARDS (adult respiratory distress syndrome) 07/1604/05/2019 Acute respiratory failure with hypoxia and hyper capnia 07/16/2018 04/05/2019 Pneumonia of both lower lobes due to infectious organism 07/16/2018 04/05/2019 Septic shock 07/16/2018 04/05/2019 Acute encephalopathy 07/16/2018 08/23/2018 Encounter for sterilization 03/11/201702/21 Overview: Risks, benefits and alternatives to sterilization have been discussed with the patient. She declines reversible options including LARC. She understands sterilization is permanent, irreversible, risks of failure, regret and ectopic. In addition she understands there are surgical risks as well. Her questions were answered to her satisfaction and consent was signed. Leatha Kumar MD Gestational diabetes mellitus, class A1 11/18/19 17 07/07/2017 Overview: November 17, 2016 Abnormal 3 hr at 11w. Leatha Kumar MD Unplanned 11/03/2016 07/07/2017 Overview: 11/03/2016This is a surprise . Patient states she got pregnanct on oral contraceptives.The FOB is the father of her previous son. Patient desires PPTL. TKRN Obesity in 11/03/2016 07/07/2017 Overview: 11/03/2016She is obese. Will plan on GCT @ [facility]. TKRN Tobacco use during , antepartum 017 07/07/2017 Overview: 11/03/2016Pt smokes 1/2 pack a day of cigarettes. Discussed risks of smoking during . Advised pt to quit.TKRN Nausea/vomiting in 11/03/2016 Overview: 11/03/2016 Patient is complaining of nausea and occasional vomiting in . Dietary considerations discussed. Patient has tried Vitamin B6 and unisom with little relief. Dr Kumar wrote order for Phenergan. Advised patient to call/come in if she is unable to keep any food or fluids down in a 24-hour period. TKRN Abnormal glucose complicating 10/13/19 15 11/17/2016 Overview: November 08, 2016 Needs 3 hr. Leatha Kumar MD Supervision of other high-risk 015 01/22/2015 Overview: July 03, 2014 elevated WBC at [facility], had infection at that time, trending down. monitor. Leatha Kuamr MD Request for sterilization 06/30/20142015 Overview: June 30, 2014 Desires tubal. VALENTIN given. Leatha Kumar MD October 11, 2014 Signed tubal papers. Leatha Kumar MD Anxiety in , antepartum 05/26/2014 01/22/2015 Overview: 05/26/14 - discussed R/B/A & use of medication in , she will cont effexor, stop ativan - KJ Poor support system complicating 05/2601/22/2015 Overview: 05/26/14 - patient is from her - KJ Tobacco use during 05/26/201404/2014 Overview: 05/26/14 - advised on risks & cessation - KJ Obesity complicating 05/26/2014 1 03/24/2014 Overview: 05/26/14 - early GCT today - KJ Generalized abdominal pain 02/21/201307/03 Pelvic pain complicating 02/21/2013 07/05/2013 Frequency of urination 02/21/2013 5 NO SHOW 01/12/2013 07/03/2014 Tobacco abuse 04/12/2012 07/03/2014 Obesity (BMI 30.0-34.9) 04/12/2012 08/20/19 18 Rebound headache 04/12/2012 01/22/2015 Unspecified high-risk 06/19/2008 04/12/2012 Supervision of other normal 12/07/2007 06/19/2008 Other threatened labor, unspecified as to episod e of care 11/29/2005 01/14/2006 Supervision of other normal 08/07/2005 01/14/2006 documented as of this encounter (statuses as of 11/01/2021) [facility] History of Past illness Narrative* Problem Noted Date Resolved Date Severe sepsis 09/11/2018 04/05/2019 Last Assessment & Plan: -The patient was tachycardic, tachypnic, febrile, WBC 31 and LA 1.6. -S/p fluid resuscitation, BP is stable -likely 2/2 HCP, CT chest showed Interval decreased cavitary component and size of right upper lobe pulmonary opacities. Interval new cavitation involving left lower lobe opacities and Interval new region of consolidation within the right lower lobe, possible atelectasis/inflammation/infection. -BC is negative, UC is showing Klebsiella/Enterobacter (UA is clean and the patient is asymptomatic, less likely UTI) -Infectious disease is following, nasal MRSA is negative -Repeat blood culture negative -Continue with Meropenem through -Ordered for Midline Respiratory failure 08/13/2018 04/05/2019 HIT (heparin-induced thrombocytopenia) 9 04/05/2019 SANTANA (acute kidney injury) 08/05/20182018 Last Assessment & Plan: -AKD developed after her prolonged ICU course -Cr is improving -Daily BMP Nicotine use disorder, F17.2 07/19/2018 ARDS (adult respiratory distress syndrome) 07/1604/05/2019 Acute respiratory failure with hypoxia and hyper capnia 07/16/2018 04/05/2019 Pneumonia of both lower lobes due to infectious organism 07/16/2018 04/05/2019 Septic shock 07/16/2018 04/05/2019 Acute encephalopathy 07/16/2018 08/23/2018 Encounter for sterilization 03/11/201702/21 Overview: Risks, benefits and alternatives to sterilization have been discussed with the patient. She declines reversible options including LARC. She understands sterilization is permanent, irreversible, risks of failure, regret and ectopic. In addition she understands there are surgical risks as well. Her questions were answered to her satisfaction and consent was signed. Leatha Kumar MD Gestational diabetes mellitus, class A1 11/18/1907/07/2017 Overview: November 17, 2016 Abnormal 3 hr at 11w. Leatha Kumar MD Unplanned 11/03/2016 07/07/2017 Overview: 11/03/2016This is a surprise . Patient states she got pregnanct on oral contraceptives.The FOB is the father of her previous son. Patient desires PPTL. TKRN Obesity in 11/03/2016 07/07/2017 Overview: 11/03/2016She is obese. Will plan on GCT @ [facility]. TKRN Tobacco use during , antepartum 017 07/07/2017 Overview: 11/03/2016Pt smokes 1/2 pack a day of cigarettes. Discussed risks of smoking during . Advised pt to quit.TKRN Nausea/vomiting in 11/03/2016 Overview: 11/03/2016 Patient is complaining of nausea and occasional vomiting in . Dietary considerations discussed. Patient has tried Vitamin B6 and unisom with little relief. Dr Kumar wrote order for Phenergan. Advised patient to call/come in if she is unable to keep any food or fluids down in a 24-hour period. TKRN Abnormal glucose complicating 10/13/19 15 11/17/2016 Overview: November 08, 2016 Needs 3 hr. Leatha Kumar MD Supervision of other high-risk 015 01/22/2015 Overview: July 03, 2014 elevated WBC at [facility], had infection at that time, trending down. monitor. Leatha Kumar MD Request for sterilization 06/30/20142015 Overview: June 30, 2014 Desires tubal. VALENTIN given. Leatha Kumar MD October 11, 2014 Signed tubal papers. Leatha Kumar MD Anxiety in , antepartum 05/26/2014 01/22/2015 Overview: 05/26/14 - discussed R/B/A & use of medication in , she will cont effexor, stop ativan - KJ Poor support system complicating 05/2601/22/2015 Overview: 05/26/14 - patient is from her - KJ Tobacco use during 05/26/201404/2014 Overview: 05/26/14 - advised on risks & cessation - KJ Obesity complicating 05/26/2014 1 03/24/2014 Overview: 05/26/14 - early GCT today - KJ Generalized abdominal pain 02/21/201307/03 Pelvic pain complicating 02/21/2013 07/05/2013 Frequency of urination 02/21/2013 5 NO SHOW 01/12/2013 07/03/2014 Tobacco abuse 04/12/2012 07/03/2014 Obesity (BMI 30.0-34.9) 04/12/2012 08/20/19 18 Rebound headache 04/12/2012 01/22/2015 Unspecified high-risk 06/19/2008 04/12/2012 Supervision of other normal 12/07/2007 06/19/2008 Other threatened labor, unspecified as to episod e of care 11/29/2005 01/14/2006 Supervision of other normal 08/07/2005 01/14/2006 documented as of this encounter (statuses as of 11/06/2021) [facility] History of Past illness Narrative* Problem Noted Date Resolved Date Severe sepsis 09/11/2018 04/05/2019 Last Assessment & Plan: -The patient was tachycardic, tachypnic, febrile, WBC 31 and LA 1.6. -S/p fluid resuscitation, BP is stable -likely 2/2 HCP, CT chest showed Interval decreased cavitary component and size of right upper lobe pulmonary opacities. Interval new cavitation involving left lower lobe opacities and Interval new region of consolidation within the right lower lobe, possible atelectasis/inflammation/infection. -BC is negative, UC is showing Klebsiella/Enterobacter (UA is clean and the patient is asymptomatic, less likely UTI) -Infectious disease is following, nasal MRSA is negative -Repeat blood culture negative -Continue with Meropenem through -Ordered for Midline Respiratory failure 08/13/2018 04/05/2019 HIT (heparin-induced thrombocytopenia) 9 04/05/2019 SANTANA (acute kidney injury) 08/05/20182018 Last Assessment & Plan: -AKD developed after her prolonged ICU course -Cr is improving -Daily BMP Nicotine use disorder, F17.2 07/19/2018 ARDS (adult respiratory distress syndrome) 07/1604/05/2019 Acute respiratory failure with hypoxia and hyper capnia 07/16/2018 04/05/2019 Pneumonia of both lower lobes due to infectious organism 07/16/2018 04/05/2019 Septic shock 07/16/2018 04/05/2019 Acute encephalopathy 07/16/2018 08/23/2018 Encounter for sterilization 03/11/201702/21 Overview: Risks, benefits and alternatives to sterilization have been discussed with the patient. She declines reversible options including LARC. She understands sterilization is permanent, irreversible, risks of failure, regret and ectopic. In addition she understands there are surgical risks as well. Her questions were answered to her satisfaction and consent was signed. Leatha Kumar MD Gestational diabetes mellitus, class A1 11/18/19 17 07/07/2017 Overview: November 17, 2016 Abnormal 3 hr at 11w. Leatha Kumar MD Unplanned 11/03/2016 07/07/2017 Overview: 11/03/2016This is a surprise . Patient states she got pregnanct on oral contraceptives.The FOB is the father of her previous son. Patient desires PPTL. TKRN Obesity in 11/03/2016 07/07/2017 Overview: 11/03/2016She is obese. Will plan on GCT @ [facility]. TKRN Tobacco use during , antepartum 017 07/07/2017 Overview: 11/03/2016Pt smokes 1/2 pack a day of cigarettes. Discussed risks of smoking during . Advised pt to quit.TKRN Nausea/vomiting in 11/03/2016 Overview: 11/03/2016 Patient is complaining of nausea and occasional vomiting in . Dietary considerations discussed. Patient has tried Vitamin B6 and unisom with little relief. Dr Kumar wrote order for Phenergan. Advised patient to call/come in if she is unable to keep any food or fluids down in a 24-hour period. TKRN Abnormal glucose complicating 10/13/19 15 11/17/2016 Overview: November 08, 2016 Needs 3 hr. Leatha Kumar MD Supervision of other high-risk 015 01/22/2015 Overview: July 03, 2014 elevated WBC at [facility], had infection at that time, trending down. monitor. Leatha Kumar MD Request for sterilization 06/30/20142015 Overview: June 30, 2014 Desires tubal. VALENTIN given. Leatha Kumar MD October 11, 2014 Signed tubal papers. Leatha Kumar MD Anxiety in , antepartum 05/26/2014 01/22/2015 Overview: 05/26/14 - discussed R/B/A & use of medication in , she will cont effexor, stop ativan - KJ Poor support system complicating 05/2601/22/2015 Overview: 05/26/14 - patient is from her - KJ Tobacco use during 05/26/201404/2014 Overview: 05/26/14 - advised on risks & cessation - KJ Obesity complicating 05/26/2014 1 03/24/2014 Overview: 05/26/14 - early GCT today - KJ Generalized abdominal pain 02/21/201307/03 Pelvic pain complicating 02/21/2013 07/05/2013 Frequency of urination 02/21/2013 5 NO SHOW 01/12/2013 07/03/2014 Tobacco abuse 04/12/2012 07/03/2014 Obesity (BMI 30.0-34.9) 04/12/2012 08/20/19 18 Rebound headache 04/12/2012 01/22/2015 Unspecified high-risk 06/19/2008 04/12/2012 Supervision of other normal 12/07/2007 06/19/2008 Other threatened labor, unspecified as to episod e of care 11/29/2005 01/14/2006 Supervision of other normal 08/07/2005 01/14/2006 documented as of this encounter (statuses as of 11/07/2021) [facility] History of Past illness Narrative* Problem Noted Date Resolved Date Severe sepsis 09/11/2018 04/05/2019 Last Assessment & Plan: -The patient was tachycardic, tachypnic, febrile, WBC 31 and LA 1.6. -S/p fluid resuscitation, BP is stable -likely 2/2 HCP, CT chest showed Interval decreased cavitary component and size of right upper lobe pulmonary opacities. Interval new cavitation involving left lower lobe opacities and Interval new region of consolidation within the right lower lobe, possible atelectasis/inflammation/infection. -BC is negative, UC is showing Klebsiella/Enterobacter (UA is clean and the patient is asymptomatic, less likely UTI) -Infectious disease is following, nasal MRSA is negative -Repeat blood culture negative -Continue with Meropenem through -Ordered for Midline Respiratory failure 08/13/2018 04/05/2019 HIT (heparin-induced thrombocytopenia) 9 04/05/2019 SANTANA (acute kidney injury) 08/05/20182018 Last Assessment & Plan: -AKD developed after her prolonged ICU course -Cr is improving -Daily BMP Nicotine use disorder, F17.2 07/19/2018 ARDS (adult respiratory distress syndrome) 07/1604/05/2019 Acute respiratory failure with hypoxia and hyper capnia 07/16/2018 04/05/2019 Pneumonia of both lower lobes due to infectious organism 07/16/2018 04/05/2019 Septic shock 07/16/2018 04/05/2019 Acute encephalopathy 07/16/2018 08/23/2018 Encounter for sterilization 03/11/201702/21 Overview: Risks, benefits and alternatives to sterilization have been discussed with the patient. She declines reversible options including LARC. She understands sterilization is permanent, irreversible, risks of failure, regret and ectopic. In addition she understands there are surgical risks as well. Her questions were answered to her satisfaction and consent was signed. Leatha Kumar MD Gestational diabetes mellitus, class A1 11/18/19 17 07/07/2017 Overview: November 17, 2016 Abnormal 3 hr at 11w. Leatha Kumar MD Unplanned 11/03/2016 07/07/2017 Overview: 11/03/2016This is a surprise . Patient states she got pregnanct on oral contraceptives.The FOB is the father of her previous son. Patient desires PPTL. TKRN Obesity in 11/03/2016 07/07/2017 Overview: 11/03/2016She is obese. Will plan on GCT @ [facility]. TKRN Tobacco use during , antepartum 017 07/07/2017 Overview: 11/03/2016Pt smokes 1/2 pack a day of cigarettes. Discussed risks of smoking during . Advised pt to quit.TKRN Nausea/vomiting in 11/03/2016 Overview: 11/03/2016 Patient is complaining of nausea and occasional vomiting in . Dietary considerations discussed. Patient has tried Vitamin B6 and unisom with little relief. Dr Kumar wrote order for Phenergan. Advised patient to call/come in if she is unable to keep any food or fluids down in a 24-hour period. TKRN Abnormal glucose complicating 10/13/19 15 11/17/2016 Overview: November 08, 2016 Needs 3 hr. Leatha Kumar MD Supervision of other high-risk 015 01/22/2015 Overview: July 03, 2014 elevated WBC at [facility], had infection at that time, trending down. monitor. Leatha Kumar MD Request for sterilization 06/30/20142015 Overview: June 30, 2014 Desires tubal. VALENTIN given. Leatha Kumar MD October 11, 2014 Signed tubal papers. Leatha Kumar MD Anxiety in , antepartum 05/26/2014 01/22/2015 Overview: 05/26/14 - discussed R/B/A & use of medication in , she will cont effexor, stop ativan - KJ Poor support system complicating 05/2601/22/2015 Overview: 05/26/14 - patient is from her - KJ Tobacco use during 05/26/201404/2014 Overview: 05/26/14 - advised on risks & cessation - KJ Obesity complicating 05/26/2014 1 03/24/2014 Overview: 05/26/14 - early GCT today - KJ Generalized abdominal pain 02/21/201307/03 Pelvic pain complicating 02/21/2013 07/05/2013 Frequency of urination 02/21/2013 5 NO SHOW 01/12/2013 07/03/2014 Tobacco abuse 04/12/2012 07/03/2014 Obesity (BMI 30.0-34.9) 04/12/2012 08/20/19 18 Rebound headache 04/12/2012 01/22/2015 Unspecified high-risk 06/19/2008 04/12/2012 Supervision of other normal 12/07/2007 06/19/2008 Other threatened labor, unspecified as to episod e of care 11/29/2005 01/14/2006 Supervision of other normal 08/07/2005 01/14/2006 documented as of this encounter (statuses as of 11/11/2021) [facility] History of Past illness Narrative* Problem Noted Date Resolved Date Severe sepsis 09/11/2018 04/05/2019 Last Assessment & Plan: -The patient was tachycardic, tachypnic, febrile, WBC 31 and LA 1.6. -S/p fluid resuscitation, BP is stable -likely 2/2 HCP, CT chest showed Interval decreased cavitary component and size of right upper lobe pulmonary opacities. Interval new cavitation involving left lower lobe opacities and Interval new region of consolidation within the right lower lobe, possible atelectasis/inflammation/infection. -BC is negative, UC is showing Klebsiella/Enterobacter (UA is clean and the patient is asymptomatic, less likely UTI) -Infectious disease is following, nasal MRSA is negative -Repeat blood culture negative -Continue with Meropenem through -Ordered for Midline Respiratory failure 08/13/2018 04/05/2019 HIT (heparin-induced thrombocytopenia) 9 04/05/2019 SANTANA (acute kidney injury) 08/05/20182018 Last Assessment & Plan: -AKD developed after her prolonged ICU course -Cr is improving -Daily BMP Nicotine use disorder, F17.2 07/19/2018 ARDS (adult respiratory distress syndrome) 07/1604/05/2019 Acute respiratory failure with hypoxia and hyper capnia 07/16/2018 04/05/2019 Pneumonia of both lower lobes due to infectious organism 07/16/2018 04/05/2019 Septic shock 07/16/2018 04/05/2019 Acute encephalopathy 07/16/2018 08/23/2018 Encounter for sterilization 03/11/201702/21 Overview: Risks, benefits and alternatives to sterilization have been discussed with the patient. She declines reversible options including LARC. She understands sterilization is permanent, irreversible, risks of failure, regret and ectopic. In addition she understands there are surgical risks as well. Her questions were answered to her satisfaction and consent was signed. Leatha Kumar MD Gestational diabetes mellitus, class A1 11/18/19 17 07/07/2017 Overview: November 17, 2016 Abnormal 3 hr at 11w. Leatha Kumar MD Unplanned 11/03/2016 07/07/2017 Overview: 11/03/2016This is a surprise . Patient states she got pregnanct on oral contraceptives.The FOB is the father of her previous son. Patient desires PPTL. TKRN Obesity in 11/03/2016 07/07/2017 Overview: 11/03/2016She is obese. Will plan on GCT @ [facility]. TKRN Tobacco use during , antepartum 017 07/07/2017 Overview: 11/03/2016Pt smokes 1/2 pack a day of cigarettes. Discussed risks of smoking during . Advised pt to quit.TKRN Nausea/vomiting in 11/03/2016 Overview: 11/03/2016 Patient is complaining of nausea and occasional vomiting in . Dietary considerations discussed. Patient has tried Vitamin B6 and unisom with little relief. Dr Kumar wrote order for Phenergan. Advised patient to call/come in if she is unable to keep any food or fluids down in a 24-hour period. TKRN Abnormal glucose complicating 10/13/19 15 11/17/2016 Overview: November 08, 2016 Needs 3 hr. Leatha Kumar MD Supervision of other high-risk 015 01/22/2015 Overview: July 03, 2014 elevated WBC at [facility], had infection at that time, trending down. monitor. Leatha Kumar MD Request for sterilization 06/30/20142015 Overview: June 30, 2014 Desires tubal. VALENTIN given. Leatha Kumar MD October 11, 2014 Signed tubal papers. Leatha Kumar MD Anxiety in , antepartum 05/26/2014 01/22/2015 Overview: 05/26/14 - discussed R/B/A & use of medication in , she will cont effexor, stop ativan - KJ Poor support system complicating 05/2601/22/2015 Overview: 05/26/14 - patient is from her - KJ Tobacco use during 05/26/201404/2014 Overview: 05/26/14 - advised on risks & cessation - KJ Obesity complicating 05/26/2014 1 03/24/2014 Overview: 05/26/14 - early GCT today - KJ Generalized abdominal pain 02/21/201307/03 Pelvic pain complicating 02/21/2013 07/05/2013 Frequency of urination 02/21/2013 5 NO SHOW 01/12/2013 07/03/2014 Tobacco abuse 04/12/2012 07/03/2014 Obesity (BMI 30.0-34.9) 04/12/2012 08/20/19 18 Rebound headache 04/12/2012 01/22/2015 Unspecified high-risk 06/19/2008 04/12/2012 Supervision of other normal 12/07/2007 06/19/2008 Other threatened labor, unspecified as to episod e of care 11/29/2005 01/14/2006 Supervision of other normal 08/07/2005 01/14/2006 documented as of this encounter (statuses as of 11/26/2021) [facility] History of Past illness Narrative* Problem Noted Date Resolved Date Severe sepsis 09/11/2018 04/05/2019 Last Assessment & Plan: -The patient was tachycardic, tachypnic, febrile, WBC 31 and LA 1.6. -S/p fluid resuscitation, BP is stable -likely 2/2 HCP, CT chest showed Interval decreased cavitary component and size of right upper lobe pulmonary opacities. Interval new cavitation involving left lower lobe opacities and Interval new region of consolidation within the right lower lobe, possible atelectasis/inflammation/infection. -BC is negative, UC is showing Klebsiella/Enterobacter (UA is clean and the patient is asymptomatic, less likely UTI) -Infectious disease is following, nasal MRSA is negative -Repeat blood culture negative -Continue with Meropenem through -Ordered for Midline Respiratory failure 08/13/2018 04/05/2019 HIT (heparin-induced thrombocytopenia) 9 04/05/2019 SANTANA (acute kidney injury) 08/05/20182018 Last Assessment & Plan: -AKD developed after her prolonged ICU course -Cr is improving -Daily BMP Nicotine use disorder, F17.2 07/19/2018 ARDS (adult respiratory distress syndrome) 07/1604/05/2019 Acute respiratory failure with hypoxia and hyper capnia 07/16/2018 04/05/2019 Pneumonia of both lower lobes due to infectious organism 07/16/2018 04/05/2019 Septic shock 07/16/2018 04/05/2019 Acute encephalopathy 07/16/2018 08/23/2018 Encounter for sterilization 03/11/201702/21 Overview: Risks, benefits and alternatives to sterilization have been discussed with the patient. She declines reversible options including LARC. She understands sterilization is permanent, irreversible, risks of failure, regret and ectopic. In addition she understands there are surgical risks as well. Her questions were answered to her satisfaction and consent was signed. Leatha Kumar MD Gestational diabetes mellitus, class A1 11/18/19 17 07/07/2017 Overview: November 17, 2016 Abnormal 3 hr at 11w. Leatha Kumar MD Unplanned 11/03/2016 07/07/2017 Overview: 11/03/2016This is a surprise . Patient states she got pregnanct on oral contraceptives.The FOB is the father of her previous son. Patient desires PPTL. TKRN Obesity in 11/03/2016 07/07/2017 Overview: 11/03/2016She is obese. Will plan on GCT @ [facility]. TKRN Tobacco use during , antepartum 017 07/07/2017 Overview: 11/03/2016Pt smokes 1/2 pack a day of cigarettes. Discussed risks of smoking during . Advised pt to quit.TKRN Nausea/vomiting in 11/03/2016 Overview: 11/03/2016 Patient is complaining of nausea and occasional vomiting in . Dietary considerations discussed. Patient has tried Vitamin B6 and unisom with little relief. Dr Kumar wrote order for Phenergan. Advised patient to call/come in if she is unable to keep any food or fluids down in a 24-hour period. TKRN Abnormal glucose complicating 10/13/19 15 11/17/2016 Overview: November 08, 2016 Needs 3 hr. Leatha Kumar MD Supervision of other high-risk 015 01/22/2015 Overview: July 03, 2014 elevated WBC at [facility], had infection at that time, trending down. monitor. Leatha Kumar MD Request for sterilization 06/30/20142015 Overview: June 30, 2014 Desires tubal. VALENTIN given. Leatha Kumar MD October 11, 2014 Signed tubal papers. Leatha Kumar MD Anxiety in , antepartum 05/26/2014 01/22/2015 Overview: 05/26/14 - discussed R/B/A & use of medication in , she will cont effexor, stop ativan - KJ Poor support system complicating 05/2601/22/2015 Overview: 05/26/14 - patient is from her - KJ Tobacco use during 05/26/201404/2014 Overview: 05/26/14 - advised on risks & cessation - KJ Obesity complicating 05/26/2014 1 03/24/2014 Overview: 05/26/14 - early GCT today - KJ Generalized abdominal pain 02/21/201307/03 Pelvic pain complicating 02/21/2013 07/05/2013 Frequency of urination 02/21/2013 5 NO SHOW 01/12/2013 07/03/2014 Tobacco abuse 04/12/2012 07/03/2014 Obesity (BMI 30.0-34.9) 04/12/2012 08/20/19 18 Rebound headache 04/12/2012 01/22/2015 Unspecified high-risk 06/19/2008 04/12/2012 Supervision of other normal 12/07/2007 06/19/2008 Other threatened labor, unspecified as to episod e of care 11/29/2005 01/14/2006 Supervision of other normal 08/07/2005 01/14/2006 documented as of this encounter (statuses as of 11/28/2021) [facility] History of Past illness Narrative* Problem Noted Date Resolved Date Severe sepsis 09/11/2018 04/05/2019 Last Assessment & Plan: -The patient was tachycardic, tachypnic, febrile, WBC 31 and LA 1.6. -S/p fluid resuscitation, BP is stable -likely 2/2 HCP, CT chest showed Interval decreased cavitary component and size of right upper lobe pulmonary opacities. Interval new cavitation involving left lower lobe opacities and Interval new region of consolidation within the right lower lobe, possible atelectasis/inflammation/infection. -BC is negative, UC is showing Klebsiella/Enterobacter (UA is clean and the patient is asymptomatic, less likely UTI) -Infectious disease is following, nasal MRSA is negative -Repeat blood culture negative -Continue with Meropenem through -Ordered for Midline Respiratory failure 08/13/2018 04/05/2019 HIT (heparin-induced thrombocytopenia) 9 04/05/2019 SANTANA (acute kidney injury) 08/05/20182018 Last Assessment & Plan: -AKD developed after her prolonged ICU course -Cr is improving -Daily BMP Nicotine use disorder, F17.2 07/19/2018 ARDS (adult respiratory distress syndrome) 07/1604/05/2019 Acute respiratory failure with hypoxia and hyper capnia 07/16/2018 04/05/2019 Pneumonia of both lower lobes due to infectious organism 07/16/2018 04/05/2019 Septic shock 07/16/2018 04/05/2019 Acute encephalopathy 07/16/2018 08/23/2018 Encounter for sterilization 03/11/201702/21 Overview: Risks, benefits and alternatives to sterilization have been discussed with the patient. She declines reversible options including LARC. She understands sterilization is permanent, irreversible, risks of failure, regret and ectopic. In addition she understands there are surgical risks as well. Her questions were answered to her satisfaction and consent was signed. Leatha Kumar MD Gestational diabetes mellitus, class A1 11/18/19 17 07/07/2017 Overview: November 17, 2016 Abnormal 3 hr at 11w. Leatha Kumar MD Unplanned 11/03/2016 07/07/2017 Overview: 11/03/2016This is a surprise . Patient states she got pregnanct on oral contraceptives.The FOB is the father of her previous son. Patient desires PPTL. TKRN Obesity in 11/03/2016 07/07/2017 Overview: 11/03/2016She is obese. Will plan on GCT @ [facility]. TKRN Tobacco use during , antepartum 017 07/07/2017 Overview: 11/03/2016Pt smokes 1/2 pack a day of cigarettes. Discussed risks of smoking during . Advised pt to quit.TKRN Nausea/vomiting in 11/03/2016 Overview: 11/03/2016 Patient is complaining of nausea and occasional vomiting in . Dietary considerations discussed. Patient has tried Vitamin B6 and unisom with little relief. Dr Kumar wrote order for Phenergan. Advised patient to call/come in if she is unable to keep any food or fluids down in a 24-hour period. TKRN Abnormal glucose complicating 10/13/19 15 11/17/2016 Overview: November 08, 2016 Needs 3 hr. Leatha Kumar MD Supervision of other high-risk 015 01/22/2015 Overview: July 03, 2014 elevated WBC at [facility], had infection at that time, trending down. monitor. Leatha Kumar MD Request for sterilization 06/30/20142015 Overview: June 30, 2014 Desires tubal. VALENTIN given. Leatha Kumar MD October 11, 2014 Signed tubal papers. Leatha Kumar MD Anxiety in , antepartum 05/26/2014 01/22/2015 Overview: 05/26/14 - discussed R/B/A & use of medication in , she will cont effexor, stop ativan - KJ Poor support system complicating 05/2601/22/2015 Overview: 05/26/14 - patient is from her - KJ Tobacco use during 05/26/201404/2014 Overview: 05/26/14 - advised on risks & cessation - KJ Obesity complicating 05/26/2014 1 03/24/2014 Overview: 05/26/14 - early GCT today - KJ Generalized abdominal pain 02/21/201307/03 Pelvic pain complicating 02/21/2013 07/05/2013 Frequency of urination 02/21/2013 5 NO SHOW 01/12/2013 07/03/2014 Tobacco abuse 04/12/2012 07/03/2014 Obesity (BMI 30.0-34.9) 04/12/2012 08/20/19 18 Rebound headache 04/12/2012 01/22/2015 Unspecified high-risk 06/19/2008 04/12/2012 Supervision of other normal 12/07/2007 06/19/2008 Other threatened labor, unspecified as to episod e of care 11/29/2005 01/14/2006 Supervision of other normal 08/07/2005 01/14/2006 documented as of this encounter (statuses as of 11/30/2021) [facility] History of Past illness Narrative* Problem Noted Date Resolved Date Severe sepsis 09/11/2018 04/05/2019 Last Assessment & Plan: -The patient was tachycardic, tachypnic, febrile, WBC 31 and LA 1.6. -S/p fluid resuscitation, BP is stable -likely 2/2 HCP, CT chest showed Interval decreased cavitary component and size of right upper lobe pulmonary opacities. Interval new cavitation involving left lower lobe opacities and Interval new region of consolidation within the right lower lobe, possible atelectasis/inflammation/infection. -BC is negative, UC is showing Klebsiella/Enterobacter (UA is clean and the patient is asymptomatic, less likely UTI) -Infectious disease is following, nasal MRSA is negative -Repeat blood culture negative -Continue with Meropenem through -Ordered for Midline Respiratory failure 08/13/2018 04/05/2019 HIT (heparin-induced thrombocytopenia) 9 04/05/2019 SANTANA (acute kidney injury) 08/05/20182018 Last Assessment & Plan: -AKD developed after her prolonged ICU course -Cr is improving -Daily BMP Nicotine use disorder, F17.2 07/19/2018 ARDS (adult respiratory distress syndrome) 07/1604/05/2019 Acute respiratory failure with hypoxia and hyper capnia 07/16/2018 04/05/2019 Pneumonia of both lower lobes due to infectious organism 07/16/2018 04/05/2019 Septic shock 07/16/2018 04/05/2019 Acute encephalopathy 07/16/2018 08/23/2018 Encounter for sterilization 03/11/201702/21 Overview: Risks, benefits and alternatives to sterilization have been discussed with the patient. She declines reversible options including LARC. She understands sterilization is permanent, irreversible, risks of failure, regret and ectopic. In addition she understands there are surgical risks as well. Her questions were answered to her satisfaction and consent was signed. Leatha Kumar MD Gestational diabetes mellitus, class A1 11/18/19 17 07/07/2017 Overview: November 17, 2016 Abnormal 3 hr at 11w. Leatha Kumar MD Unplanned 11/03/2016 07/07/2017 Overview: 11/03/2016This is a surprise . Patient states she got pregnanct on oral contraceptives.The FOB is the father of her previous son. Patient desires PPTL. TKRN Obesity in 11/03/2016 07/07/2017 Overview: 11/03/2016She is obese. Will plan on GCT @ [facility]. TKRN Tobacco use during , antepartum 017 07/07/2017 Overview: 11/03/2016Pt smokes 1/2 pack a day of cigarettes. Discussed risks of smoking during . Advised pt to quit.TKRN Nausea/vomiting in 11/03/2016 Overview: 11/03/2016 Patient is complaining of nausea and occasional vomiting in . Dietary considerations discussed. Patient has tried Vitamin B6 and unisom with little relief. Dr Kumar wrote order for Phenergan. Advised patient to call/come in if she is unable to keep any food or fluids down in a 24-hour period. TKRN Abnormal glucose complicating 10/13/19 15 11/17/2016 Overview: November 08, 2016 Needs 3 hr. Leatha Kumar MD Supervision of other high-risk 015 01/22/2015 Overview: July 03, 2014 elevated WBC at [facility], had infection at that time, trending down. monitor. Leatha Kumar MD Request for sterilization 06/30/20142015 Overview: June 30, 2014 Desires tubal. VALENTIN given. Leatha Kumar MD October 11, 2014 Signed tubal papers. Leatha Kumar MD Anxiety in , antepartum 05/26/2014 01/22/2015 Overview: 3/6/15 - discussed R/B/A & use of medication in , she will cont effexor, stop ativan - KJ Poor support system complicating 05/2601/22/2015 Overview: 05/26/14 - patient is from her - KJ Tobacco use during 05/26/201404/2014 Overview: 05/26/14 - advised on risks & cessation - KJ Obesity complicating 05/26/2014 1 03/24/2014 Overview: 05/26/14 - early GCT today - KJ Generalized abdominal pain 02/21/201307/03 Pelvic pain complicating 02/21/2013 07/05/2013 Frequency of urination 02/21/2013 5 NO SHOW 01/12/2013 07/03/2014 Tobacco abuse 04/12/2012 07/03/2014 Obesity (BMI 30.0-34.9) 04/12/2012 08/20/19 18 Rebound headache 04/12/2012 01/22/2015 Unspecified high-risk 06/19/2008 04/12/2012 Supervision of other normal 12/07/2007 06/19/2008 Other threatened labor, unspecified as to episod e of care 11/29/2005 01/14/2006 Supervision of other normal 08/07/2005 01/14/2006 documented as of this encounter (statuses as of 11/30/2021) [facility] History of Past illness Narrative* Problem Noted Date Resolved Date Severe sepsis 09/11/2018 04/05/2019 Last Assessment & Plan: -The patient was tachycardic, tachypnic, febrile, WBC 31 and LA 1.6. -S/p fluid resuscitation, BP is stable -likely 2/2 HCP, CT chest showed Interval decreased cavitary component and size of right upper lobe pulmonary opacities. Interval new cavitation involving left lower lobe opacities and Interval new region of consolidation within the right lower lobe, possible atelectasis/inflammation/infection. -BC is negative, UC is showing Klebsiella/Enterobacter (UA is clean and the patient is asymptomatic, less likely UTI) -Infectious disease is following, nasal MRSA is negative -Repeat blood culture negative -Continue with Meropenem through -Ordered for Midline Respiratory failure 08/13/2018 04/05/2019 HIT (heparin-induced thrombocytopenia) 9 04/05/2019 SANTANA (acute kidney injury) 08/05/20182018 Last Assessment & Plan: -AKD developed after her prolonged ICU course -Cr is improving -Daily BMP Nicotine use disorder, F17.2 07/19/2018 ARDS (adult respiratory distress syndrome) 07/1604/05/2019 Acute respiratory failure with hypoxia and hyper capnia 07/16/2018 04/05/2019 Pneumonia of both lower lobes due to infectious organism 07/16/2018 04/05/2019 Septic shock 07/16/2018 04/05/2019 Acute encephalopathy 07/16/2018 08/23/2018 Encounter for sterilization 03/11/201702/21 Overview: Risks, benefits and alternatives to sterilization have been discussed with the patient. She declines reversible options including LARC. She understands sterilization is permanent, irreversible, risks of failure, regret and ectopic. In addition she understands there are surgical risks as well. Her questions were answered to her satisfaction and consent was signed. Leatha Kumar MD Gestational diabetes mellitus, class A1 11/18/19 17 07/07/2017 Overview: November 17, 2016 Abnormal 3 hr at 11w. Leatha Kumar MD Unplanned 11/03/2016 07/07/2017 Overview: 11/03/2016This is a surprise . Patient states she got pregnanct on oral contraceptives.The FOB is the father of her previous son. Patient desires PPTL. TKRN Obesity in 11/03/2016 07/07/2017 Overview: 11/03/2016She is obese. Will plan on GCT @ [facility]. TKRN Tobacco use during , antepartum 017 07/07/2017 Overview: 11/03/2016Pt smokes 1/2 pack a day of cigarettes. Discussed risks of smoking during . Advised pt to quit.TKRN Nausea/vomiting in 11/03/2016 Overview: 11/03/2016 Patient is complaining of nausea and occasional vomiting in . Dietary considerations discussed. Patient has tried Vitamin B6 and unisom with little relief. Dr Kumar wrote order for Phenergan. Advised patient to call/come in if she is unable to keep any food or fluids down in a 24-hour period. TKRN Abnormal glucose complicating 10/13/19 15 11/17/2016 Overview: November 08, 2016 Needs 3 hr. Leatha Kumar MD Supervision of other high-risk 015 01/22/2015 Overview: July 03, 2014 elevated WBC at [facility], had infection at that time, trending down. monitor. Leatha Kumar MD Request for sterilization 06/30/20142015 Overview: June 30, 2014 Desires tubal. VALENTIN given. Leatha Kumar MD October 11, 2014 Signed tubal papers. Leatha Kumar MD Anxiety in , antepartum 05/26/2014 01/22/2015 Overview: 05/26/14 - discussed R/B/A & use of medication in , she will cont effexor, stop ativan - KJ Poor support system complicating 05/2601/22/2015 Overview: 05/26/14 - patient is from her - KJ Tobacco use during 05/26/201404/2014 Overview: 05/26/14 - advised on risks & cessation - KJ Obesity complicating 05/26/2014 1 03/24/2014 Overview: 05/26/14 - early GCT today - KJ Generalized abdominal pain 02/21/201307/03 Pelvic pain complicating 02/21/2013 07/05/2013 Frequency of urination 02/21/2013 5 NO SHOW 01/12/2013 07/03/2014 Tobacco abuse 04/12/2012 07/03/2014 Obesity (BMI 30.0-34.9) 04/12/2012 08/20/19 18 Rebound headache 04/12/2012 01/22/2015 Unspecified high-risk 06/19/2008 04/12/2012 Supervision of other normal 12/07/2007 06/19/2008 Other threatened labor, unspecified as to episod e of care 11/29/2005 01/14/2006 Supervision of other normal 08/07/2005 01/14/2006 documented as of this encounter (statuses as of 12/01/2021) [facility] History of Past illness Narrative* Problem Noted Date Resolved Date Severe sepsis 09/11/2018 04/05/2019 Last Assessment & Plan: -The patient was tachycardic, tachypnic, febrile, WBC 31 and LA 1.6. -S/p fluid resuscitation, BP is stable -likely 2/2 HCP, CT chest showed Interval decreased cavitary component and size of right upper lobe pulmonary opacities. Interval new cavitation involving left lower lobe opacities and Interval new region of consolidation within the right lower lobe, possible atelectasis/inflammation/infection. -BC is negative, UC is showing Klebsiella/Enterobacter (UA is clean and the patient is asymptomatic, less likely UTI) -Infectious disease is following, nasal MRSA is negative -Repeat blood culture negative -Continue with Meropenem through -Ordered for Midline Respiratory failure 08/13/2018 04/05/2019 HIT (heparin-induced thrombocytopenia) 9 04/05/2019 SANTANA (acute kidney injury) 08/05/20182018 Last Assessment & Plan: -AKD developed after her prolonged ICU course -Cr is improving -Daily BMP Nicotine use disorder, F17.2 07/19/2018 ARDS (adult respiratory distress syndrome) 07/1604/05/2019 Acute respiratory failure with hypoxia and hyper capnia 07/16/2018 04/05/2019 Pneumonia of both lower lobes due to infectious organism 07/16/2018 04/05/2019 Septic shock 07/16/2018 04/05/2019 Acute encephalopathy 07/16/2018 08/23/2018 Encounter for sterilization 03/11/201702/21 Overview: Risks, benefits and alternatives to sterilization have been discussed with the patient. She declines reversible options including LARC. She understands sterilization is permanent, irreversible, risks of failure, regret and ectopic. In addition she understands there are surgical risks as well. Her questions were answered to her satisfaction and consent was signed. Leatha Kumar MD Gestational diabetes mellitus, class A1 11/18/1907/07/2017 Overview: November 17, 2016 Abnormal 3 hr at 11w. Leatha Kumar MD Unplanned 11/03/2016 07/07/2017 Overview: 11/03/2016This is a surprise . Patient states she got pregnanct on oral contraceptives.The FOB is the father of her previous son. Patient desires PPTL. TKRN Obesity in 11/03/2016 07/07/2017 Overview: 11/03/2016She is obese. Will plan on GCT @ [facility]. TKRN Tobacco use during , antepartum 017 07/07/2017 Overview: 11/03/2016Pt smokes 1/2 pack a day of cigarettes. Discussed risks of smoking during . Advised pt to quit.TKRN Nausea/vomiting in 11/03/2016 Overview: 11/03/2016 Patient is complaining of nausea and occasional vomiting in . Dietary considerations discussed. Patient has tried Vitamin B6 and unisom with little relief. Dr Kumar wrote order for Phenergan. Advised patient to call/come in if she is unable to keep any food or fluids down in a 24-hour period. TKRN Abnormal glucose complicating 10/13/19 15 11/17/2016 Overview: November 08, 2016 Needs 3 hr. Leatha Kumar MD Supervision of other high-risk 015 01/22/2015 Overview: July 03, 2014 elevated WBC at [facility], had infection at that time, trending down. monitor. Leatha Kumar MD Request for sterilization 06/30/20142015 Overview: June 30, 2014 Desires tubal. VALENTIN given. Leatha Kumar MD October 11, 2014 Signed tubal papers. Leatha Kumar MD Anxiety in , antepartum 05/26/2014 01/22/2015 Overview: 05/26/14 - discussed R/B/A & use of medication in , she will cont effexor, stop ativan - KJ Poor support system complicating 05/2601/22/2015 Overview: 05/26/14 - patient is from her - KJ Tobacco use during 05/26/201404/2014 Overview: 05/26/14 - advised on risks & cessation - KJ Obesity complicating 05/26/2014 1 03/24/2014 Overview: 05/26/14 - early GCT today - KJ Generalized abdominal pain 02/21/201307/03 Pelvic pain complicating 02/21/2013 07/05/2013 Frequency of urination 02/21/2013 5 NO SHOW 01/12/2013 07/03/2014 Tobacco abuse 04/12/2012 07/03/2014 Obesity (BMI 30.0-34.9) 04/12/2012 08/20/19 18 Rebound headache 04/12/2012 01/22/2015 Unspecified high-risk 06/19/2008 04/12/2012 Supervision of other normal 12/07/2007 06/19/2008 Other threatened labor, unspecified as to episod e of care 11/29/2005 01/14/2006 Supervision of other normal 08/07/2005 01/14/2006 documented as of this encounter (statuses as of 12/02/2021) [facility] History of Past illness Narrative* Problem Noted Date Resolved Date Severe sepsis 09/11/2018 04/05/2019 Last Assessment & Plan: -The patient was tachycardic, tachypnic, febrile, WBC 31 and LA 1.6. -S/p fluid resuscitation, BP is stable -likely 2/2 HCP, CT chest showed Interval decreased cavitary component and size of right upper lobe pulmonary opacities. Interval new cavitation involving left lower lobe opacities and Interval new region of consolidation within the right lower lobe, possible atelectasis/inflammation/infection. -BC is negative, UC is showing Klebsiella/Enterobacter (UA is clean and the patient is asymptomatic, less likely UTI) -Infectious disease is following, nasal MRSA is negative -Repeat blood culture negative -Continue with Meropenem through -Ordered for Midline Respiratory failure 08/13/2018 04/05/2019 HIT (heparin-induced thrombocytopenia) 9 04/05/2019 SANTANA (acute kidney injury) 08/05/20182018 Last Assessment & Plan: -AKD developed after her prolonged ICU course -Cr is improving -Daily BMP Nicotine use disorder, F17.2 07/19/2018 ARDS (adult respiratory distress syndrome) 07/1604/05/2019 Acute respiratory failure with hypoxia and hyper capnia 07/16/2018 04/05/2019 Pneumonia of both lower lobes due to infectious organism 07/16/2018 04/05/2019 Septic shock 07/16/2018 04/05/2019 Acute encephalopathy 07/16/2018 08/23/2018 Encounter for sterilization 03/11/201702/21 Overview: Risks, benefits and alternatives to sterilization have been discussed with the patient. She declines reversible options including LARC. She understands sterilization is permanent, irreversible, risks of failure, regret and ectopic. In addition she understands there are surgical risks as well. Her questions were answered to her satisfaction and consent was signed. Leatha Kumar MD Gestational diabetes mellitus, class A1 11/18/19 17 07/07/2017 Overview: November 17, 2016 Abnormal 3 hr at 11w. Leatha Kumar MD Unplanned 11/03/2016 07/07/2017 Overview: 11/03/2016This is a surprise . Patient states she got pregnanct on oral contraceptives.The FOB is the father of her previous son. Patient desires PPTL. TKRN Obesity in 11/03/2016 07/07/2017 Overview: 11/03/2016She is obese. Will plan on GCT @ [facility]. TKRN Tobacco use during , antepartum 017 07/07/2017 Overview: 11/03/2016Pt smokes 1/2 pack a day of cigarettes. Discussed risks of smoking during . Advised pt to quit.TKRN Nausea/vomiting in 11/03/2016 Overview: 11/03/2016 Patient is complaining of nausea and occasional vomiting in . Dietary considerations discussed. Patient has tried Vitamin B6 and unisom with little relief. Dr Kumar wrote order for Phenergan. Advised patient to call/come in if she is unable to keep any food or fluids down in a 24-hour period. TKRN Abnormal glucose complicating 10/13/19 15 11/17/2016 Overview: November 08, 2016 Needs 3 hr. Leatha Kumar MD Supervision of other high-risk 015 01/22/2015 Overview: July 03, 2014 elevated WBC at [facility], had infection at that time, trending down. monitor. Leatha Kumar MD Request for sterilization 06/30/20142015 Overview: June 30, 2014 Desires tubal. VALENTIN given. Leatha Kumar MD October 11, 2014 Signed tubal papers. Leatha Kumar MD Anxiety in , antepartum 05/26/2014 01/22/2015 Overview: 05/26/14 - discussed R/B/A & use of medication in , she will cont effexor, stop ativan - KJ Poor support system complicating 05/2601/22/2015 Overview: 05/26/14 - patient is from her - KJ Tobacco use during 05/26/201404/2014 Overview: 05/26/14 - advised on risks & cessation - KJ Obesity complicating 05/26/2014 1 03/24/2014 Overview: 05/26/14 - early GCT today - KJ Generalized abdominal pain 02/21/201307/03 Pelvic pain complicating 02/21/2013 07/05/2013 Frequency of urination 02/21/2013 5 NO SHOW 01/12/2013 07/03/2014 Tobacco abuse 04/12/2012 07/03/2014 Obesity (BMI 30.0-34.9) 04/12/2012 08/20/19 18 Rebound headache 04/12/2012 01/22/2015 Unspecified high-risk 06/19/2008 04/12/2012 Supervision of other normal 12/07/2007 06/19/2008 Other threatened labor, unspecified as to episod e of care 11/29/2005 01/14/2006 Supervision of other normal 08/07/2005 01/14/2006 documented as of this encounter (statuses as of 12/02/2021) [facility] History of Past illness Narrative* Problem Noted Date Resolved Date Severe sepsis 09/11/2018 04/05/2019 Last Assessment & Plan: -The patient was tachycardic, tachypnic, febrile, WBC 31 and LA 1.6. -S/p fluid resuscitation, BP is stable -likely 2/2 HCP, CT chest showed Interval decreased cavitary component and size of right upper lobe pulmonary opacities. Interval new cavitation involving left lower lobe opacities and Interval new region of consolidation within the right lower lobe, possible atelectasis/inflammation/infection. -BC is negative, UC is showing Klebsiella/Enterobacter (UA is clean and the patient is asymptomatic, less likely UTI) -Infectious disease is following, nasal MRSA is negative -Repeat blood culture negative -Continue with Meropenem through -Ordered for Midline Respiratory failure 08/13/2018 04/05/2019 HIT (heparin-induced thrombocytopenia) 9 04/05/2019 SANTANA (acute kidney injury) 08/05/20182018 Last Assessment & Plan: -AKD developed after her prolonged ICU course -Cr is improving -Daily BMP Nicotine use disorder, F17.2 07/19/2018 ARDS (adult respiratory distress syndrome) 07/1604/05/2019 Acute respiratory failure with hypoxia and hyper capnia 07/16/2018 04/05/2019 Pneumonia of both lower lobes due to infectious organism 07/16/2018 04/05/2019 Septic shock 07/16/2018 04/05/2019 Acute encephalopathy 07/16/2018 08/23/2018 Encounter for sterilization 03/11/201702/21 Overview: Risks, benefits and alternatives to sterilization have been discussed with the patient. She declines reversible options including LARC. She understands sterilization is permanent, irreversible, risks of failure, regret and ectopic. In addition she understands there are surgical risks as well. Her questions were answered to her satisfaction and consent was signed. Leatha Kumar MD Gestational diabetes mellitus, class A1 11/18/1907/07/2017 Overview: November 17, 2016 Abnormal 3 hr at 11w. Leatha Kumar MD Unplanned 11/03/2016 07/07/2017 Overview: 11/03/2016This is a surprise . Patient states she got pregnanct on oral contraceptives.The FOB is the father of her previous son. Patient desires PPTL. TKRN Obesity in 11/03/2016 07/07/2017 Overview: 11/03/2016She is obese. Will plan on GCT @ [facility]. TKRN Tobacco use during , antepartum 017 07/07/2017 Overview: 11/03/2016Pt smokes 1/2 pack a day of cigarettes. Discussed risks of smoking during . Advised pt to quit.TKRN Nausea/vomiting in 11/03/2016 Overview: 11/03/2016 Patient is complaining of nausea and occasional vomiting in . Dietary considerations discussed. Patient has tried Vitamin B6 and unisom with little relief. Dr Kumar wrote order for Phenergan. Advised patient to call/come in if she is unable to keep any food or fluids down in a 24-hour period. TKRN Abnormal glucose complicating 10/13/19 15 11/17/2016 Overview: November 08, 2016 Needs 3 hr. Leatha Kumar MD Supervision of other high-risk 015 01/22/2015 Overview: July 03, 2014 elevated WBC at [facility], had infection at that time, trending down. monitor. Leatha Kumar MD Request for sterilization 06/30/20142015 Overview: June 30, 2014 Desires tubal. VALENTIN given. Leatha Kumar MD October 11, 2014 Signed tubal papers. Leatha Kumar MD Anxiety in , antepartum 05/26/2014 01/22/2015 Overview: 05/26/14 - discussed R/B/A & use of medication in , she will cont effexor, stop ativan - KJ Poor support system complicating 05/2601/22/2015 Overview: 05/26/14 - patient is from her - KJ Tobacco use during 05/26/201404/2014 Overview: 05/26/14 - advised on risks & cessation - KJ Obesity complicating 05/26/2014 1 03/24/2014 Overview: 05/26/14 - early GCT today - KJ Generalized abdominal pain 02/21/201307/03 Pelvic pain complicating 02/21/2013 07/05/2013 Frequency of urination 02/21/2013 5 NO SHOW 01/12/2013 07/03/2014 Tobacco abuse 04/12/2012 07/03/2014 Obesity (BMI 30.0-34.9) 04/12/2012 08/20/19 18 Rebound headache 04/12/2012 01/22/2015 Unspecified high-risk 06/19/2008 04/12/2012 Supervision of other normal 12/07/2007 06/19/2008 Other threatened labor, unspecified as to episod e of care 11/29/2005 01/14/2006 Supervision of other normal 08/07/2005 01/14/2006 documented as of this encounter (statuses as of 01/02/2022) [facility] History of Past illness Narrative* Problem Noted Date Resolved Date Severe sepsis 09/11/2018 04/05/2019 Last Assessment & Plan: -The patient was tachycardic, tachypnic, febrile, WBC 31 and LA 1.6. -S/p fluid resuscitation, BP is stable -likely 2/2 HCP, CT chest showed Interval decreased cavitary component and size of right upper lobe pulmonary opacities. Interval new cavitation involving left lower lobe opacities and Interval new region of consolidation within the right lower lobe, possible atelectasis/inflammation/infection. -BC is negative, UC is showing Klebsiella/Enterobacter (UA is clean and the patient is asymptomatic, less likely UTI) -Infectious disease is following, nasal MRSA is negative -Repeat blood culture negative -Continue with Meropenem through -Ordered for Midline Respiratory failure 08/13/2018 04/05/2019 HIT (heparin-induced thrombocytopenia) 9 04/05/2019 SANTANA (acute kidney injury) 08/05/20182018 Last Assessment & Plan: -AKD developed after her prolonged ICU course -Cr is improving -Daily BMP Nicotine use disorder, F17.2 07/19/2018 ARDS (adult respiratory distress syndrome) 07/1604/05/2019 Acute respiratory failure with hypoxia and hyper capnia 07/16/2018 04/05/2019 Pneumonia of both lower lobes due to infectious organism 07/16/2018 04/05/2019 Septic shock 07/16/2018 04/05/2019 Acute encephalopathy 07/16/2018 08/23/2018 Encounter for sterilization 03/11/201702/21 Overview: Risks, benefits and alternatives to sterilization have been discussed with the patient. She declines reversible options including LARC. She understands sterilization is permanent, irreversible, risks of failure, regret and ectopic. In addition she understands there are surgical risks as well. Her questions were answered to her satisfaction and consent was signed. Leatha Kumar MD Gestational diabetes mellitus, class A1 11/18/19 17 07/07/2017 Overview: November 17, 2016 Abnormal 3 hr at 11w. Leatha Kumar MD Unplanned 11/03/2016 07/07/2017 Overview: 11/03/2016This is a surprise . Patient states she got pregnanct on oral contraceptives.The FOB is the father of her previous son. Patient desires PPTL. TKRN Obesity in 11/03/2016 07/07/2017 Overview: 11/03/2016She is obese. Will plan on GCT @ [facility]. TKRN Tobacco use during , antepartum 017 07/07/2017 Overview: 11/03/2016Pt smokes 1/2 pack a day of cigarettes. Discussed risks of smoking during . Advised pt to quit.TKRN Nausea/vomiting in 11/03/2016 Overview: 11/03/2016 Patient is complaining of nausea and occasional vomiting in . Dietary considerations discussed. Patient has tried Vitamin B6 and unisom with little relief. Dr Kumar wrote order for Phenergan. Advised patient to call/come in if she is unable to keep any food or fluids down in a 24-hour period. TKRN Abnormal glucose complicating 10/13/19 15 11/17/2016 Overview: November 08, 2016 Needs 3 hr. Leatha Kumar MD Supervision of other high-risk 015 01/22/2015 Overview: July 03, 2014 elevated WBC at [facility], had infection at that time, trending down. monitor. Leatha Kumar MD Request for sterilization 06/30/20142015 Overview: June 30, 2014 Desires tubal. VALENTIN given. Leatha Kumar MD October 11, 2014 Signed tubal papers. Leatha Kumar MD Anxiety in , antepartum 05/26/2014 01/22/2015 Overview: 05/26/14 - discussed R/B/A & use of medication in , she will cont effexor, stop ativan - KJ Poor support system complicating 05/2601/22/2015 Overview: 05/26/14 - patient is from her - KJ Tobacco use during 05/26/201404/2014 Overview: 05/26/14 - advised on risks & cessation - KJ Obesity complicating 05/26/2014 1 03/24/2014 Overview: 05/26/14 - early GCT today - KJ Generalized abdominal pain 02/21/201307/03 Pelvic pain complicating 02/21/2013 07/05/2013 Frequency of urination 02/21/2013 5 NO SHOW 01/12/2013 07/03/2014 Tobacco abuse 04/12/2012 07/03/2014 Obesity (BMI 30.0-34.9) 04/12/2012 08/20/19 18 Rebound headache 04/12/2012 01/22/2015 Unspecified high-risk 06/19/2008 04/12/2012 Supervision of other normal 12/07/2007 06/19/2008 Other threatened labor, unspecified as to episod e of care 11/29/2005 01/14/2006 Supervision of other normal 08/07/2005 01/14/2006 documented as of this encounter (statuses as of 01/15/2022) [facility] History of Past illness Narrative* Problem Noted Date Resolved Date Severe sepsis 09/11/2018 04/05/2019 Last Assessment & Plan: -The patient was tachycardic, tachypnic, febrile, WBC 31 and LA 1.6. -S/p fluid resuscitation, BP is stable -likely 2/2 HCP, CT chest showed Interval decreased cavitary component and size of right upper lobe pulmonary opacities. Interval new cavitation involving left lower lobe opacities and Interval new region of consolidation within the right lower lobe, possible atelectasis/inflammation/infection. -BC is negative, UC is showing Klebsiella/Enterobacter (UA is clean and the patient is asymptomatic, less likely UTI) -Infectious disease is following, nasal MRSA is negative -Repeat blood culture negative -Continue with Meropenem through -Ordered for Midline Respiratory failure 08/13/2018 04/05/2019 HIT (heparin-induced thrombocytopenia) 9 04/05/2019 SANTANA (acute kidney injury) 08/05/20182018 Last Assessment & Plan: -AKD developed after her prolonged ICU course -Cr is improving -Daily BMP Nicotine use disorder, F17.2 07/19/2018 ARDS (adult respiratory distress syndrome) 07/1604/05/2019 Acute respiratory failure with hypoxia and hyper capnia 07/16/2018 04/05/2019 Pneumonia of both lower lobes due to infectious organism 07/16/2018 04/05/2019 Septic shock 07/16/2018 04/05/2019 Acute encephalopathy 07/16/2018 08/23/2018 Encounter for sterilization 03/11/201702/21 Overview: Risks, benefits and alternatives to sterilization have been discussed with the patient. She declines reversible options including LARC. She understands sterilization is permanent, irreversible, risks of failure, regret and ectopic. In addition she understands there are surgical risks as well. Her questions were answered to her satisfaction and consent was signed. Leatha Kumar MD Gestational diabetes mellitus, class A1 11/18/19 17 07/07/2017 Overview: November 17, 2016 Abnormal 3 hr at 11w. Leatha Kumar MD Unplanned 11/03/2016 07/07/2017 Overview: 11/03/2016This is a surprise . Patient states she got pregnanct on oral contraceptives.The FOB is the father of her previous son. Patient desires PPTL. TKRN Obesity in 11/03/2016 07/07/2017 Overview: 11/03/2016She is obese. Will plan on GCT @ [facility]. TKRN Tobacco use during , antepartum 017 07/07/2017 Overview: 11/03/2016Pt smokes 1/2 pack a day of cigarettes. Discussed risks of smoking during . Advised pt to quit.TKRN Nausea/vomiting in 11/03/2016 Overview: 11/03/2016 Patient is complaining of nausea and occasional vomiting in . Dietary considerations discussed. Patient has tried Vitamin B6 and unisom with little relief. Dr Kumar wrote order for Phenergan. Advised patient to call/come in if she is unable to keep any food or fluids down in a 24-hour period. TKRN Abnormal glucose complicating 10/13/19 15 11/17/2016 Overview: November 08, 2016 Needs 3 hr. Leatha Kumar MD Supervision of other high-risk 015 01/22/2015 Overview: July 03, 2014 elevated WBC at [facility], had infection at that time, trending down. monitor. Leatha Kumar MD Request for sterilization 06/30/20142015 Overview: June 30, 2014 Desires tubal. VALENTIN given. Leatha Kumar MD October 11, 2014 Signed tubal papers. Leatha Kumar MD Anxiety in , antepartum 05/26/2014 01/22/2015 Overview: 05/26/14 - discussed R/B/A & use of medication in , she will cont effexor, stop ativan - KJ Poor support system complicating 05/2601/22/2015 Overview: 05/26/14 - patient is from her - KJ Tobacco use during 05/26/201404/2014 Overview: 05/26/14 - advised on risks & cessation - KJ Obesity complicating 05/26/2014 1 03/24/2014 Overview: 05/26/14 - early GCT today - KJ Generalized abdominal pain 02/21/201307/03 Pelvic pain complicating 02/21/2013 07/05/2013 Frequency of urination 02/21/2013 5 NO SHOW 01/12/2013 07/03/2014 Tobacco abuse 04/12/2012 07/03/2014 Obesity (BMI 30.0-34.9) 04/12/2012 08/20/19 18 Rebound headache 04/12/2012 01/22/2015 Unspecified high-risk 06/19/2008 04/12/2012 Supervision of other normal 12/07/2007 06/19/2008 Other threatened labor, unspecified as to episod e of care 11/29/2005 01/14/2006 Supervision of other normal 08/07/2005 01/14/2006 documented as of this encounter (statuses as of 01/21/2022) [facility] History of Past illness Narrative* Problem Noted Date Resolved Date Severe sepsis 09/11/2018 04/05/2019 Last Assessment & Plan: -The patient was tachycardic, tachypnic, febrile, WBC 31 and LA 1.6. -S/p fluid resuscitation, BP is stable -likely 2/2 HCP, CT chest showed Interval decreased cavitary component and size of right upper lobe pulmonary opacities. Interval new cavitation involving left lower lobe opacities and Interval new region of consolidation within the right lower lobe, possible atelectasis/inflammation/infection. -BC is negative, UC is showing Klebsiella/Enterobacter (UA is clean and the patient is asymptomatic, less likely UTI) -Infectious disease is following, nasal MRSA is negative -Repeat blood culture negative -Continue with Meropenem through -Ordered for Midline Respiratory failure 08/13/2018 04/05/2019 HIT (heparin-induced thrombocytopenia) 9 04/05/2019 SANTANA (acute kidney injury) 08/05/20182018 Last Assessment & Plan: -AKD developed after her prolonged ICU course -Cr is improving -Daily BMP Nicotine use disorder, F17.2 07/19/2018 ARDS (adult respiratory distress syndrome) 07/1604/05/2019 Acute respiratory failure with hypoxia and hyper capnia 07/16/2018 04/05/2019 Pneumonia of both lower lobes due to infectious organism 07/16/2018 04/05/2019 Septic shock 07/16/2018 04/05/2019 Acute encephalopathy 07/16/2018 08/23/2018 Encounter for sterilization 03/11/201702/21 Overview: Risks, benefits and alternatives to sterilization have been discussed with the patient. She declines reversible options including LARC. She understands sterilization is permanent, irreversible, risks of failure, regret and ectopic. In addition she understands there are surgical risks as well. Her questions were answered to her satisfaction and consent was signed. Leatha Kumar MD Gestational diabetes mellitus, class A1 11/18/1907/07/2017 Overview: November 17, 2016 Abnormal 3 hr at 11w. Leatha Kumar MD Unplanned 11/03/2016 07/07/2017 Overview: 11/03/2016This is a surprise . Patient states she got pregnanct on oral contraceptives.The FOB is the father of her previous son. Patient desires PPTL. TKRN Obesity in 11/03/2016 07/07/2017 Overview: 11/03/2016She is obese. Will plan on GCT @ [facility]. TKRN Tobacco use during , antepartum 017 07/07/2017 Overview: 11/03/2016Pt smokes 1/2 pack a day of cigarettes. Discussed risks of smoking during . Advised pt to quit.TKRN Nausea/vomiting in 11/03/2016 Overview: 11/03/2016 Patient is complaining of nausea and occasional vomiting in . Dietary considerations discussed. Patient has tried Vitamin B6 and unisom with little relief. Dr Kumar wrote order for Phenergan. Advised patient to call/come in if she is unable to keep any food or fluids down in a 24-hour period. TKRN Abnormal glucose complicating 10/13/19 15 11/17/2016 Overview: November 08, 2016 Needs 3 hr. Leatha Kumar MD Supervision of other high-risk 015 01/22/2015 Overview: July 03, 2014 elevated WBC at [facility], had infection at that time, trending down. monitor. Leatha Kumar MD Request for sterilization 06/30/20142015 Overview: June 30, 2014 Desires tubal. VALENTIN given. Leatha Kumar MD October 11, 2014 Signed tubal papers. Leatha Kumar MD Anxiety in , antepartum 05/26/2014 01/22/2015 Overview: 05/26/14 - discussed R/B/A & use of medication in , she will cont effexor, stop ativan - KJ Poor support system complicating 05/2601/22/2015 Overview: 05/26/14 - patient is from her - KJ Tobacco use during 05/26/201404/2014 Overview: 05/26/14 - advised on risks & cessation - KJ Obesity complicating 05/26/2014 1 03/24/2014 Overview: 05/26/14 - early GCT today - KJ Generalized abdominal pain 02/21/201307/03 Pelvic pain complicating 02/21/2013 07/05/2013 Frequency of urination 02/21/2013 5 NO SHOW 01/12/2013 07/03/2014 Tobacco abuse 04/12/2012 07/03/2014 Obesity (BMI 30.0-34.9) 04/12/2012 08/20/19 18 Rebound headache 04/12/2012 01/22/2015 Unspecified high-risk 06/19/2008 04/12/2012 Supervision of other normal 12/07/2007 06/19/2008 Other threatened labor, unspecified as to episod e of care 11/29/2005 01/14/2006 Supervision of other normal 08/07/2005 01/14/2006 documented as of this encounter (statuses as of 01/21/2022) [facility]2019 History of Past illness Narrative* Problem Noted Date Resolved Date Severe sepsis 09/11/2018 04/05/2019 Last Assessment & Plan: -The patient was tachycardic, tachypnic, febrile, WBC 31 and LA 1.6. -S/p fluid resuscitation, BP is stable -likely 2/2 HCP, CT chest showed Interval decreased cavitary component and size of right upper lobe pulmonary opacities. Interval new cavitation involving left lower lobe opacities and Interval new region of consolidation within the right lower lobe, possible atelectasis/inflammation/infection. -BC is negative, UC is showing Klebsiella/Enterobacter (UA is clean and the patient is asymptomatic, less likely UTI) -Infectious disease is following, nasal MRSA is negative -Repeat blood culture negative -Continue with Meropenem through -Ordered for Midline Respiratory failure 08/13/2018 04/05/2019 HIT (heparin-induced thrombocytopenia) 9 04/05/2019 SANTANA (acute kidney injury) 08/05/20182018 Last Assessment & Plan: -AKD developed after her prolonged ICU course -Cr is improving -Daily BMP Nicotine use disorder, F17.2 07/19/2018 ARDS (adult respiratory distress syndrome) 07/1604/05/2019 Acute respiratory failure with hypoxia and hyper capnia 07/16/2018 04/05/2019 Pneumonia of both lower lobes due to infectious organism 07/16/2018 04/05/2019 Septic shock 07/16/2018 04/05/2019 Acute encephalopathy 07/16/2018 08/23/2018 Encounter for sterilization 03/11/201702/21 Overview: Risks, benefits and alternatives to sterilization have been discussed with the patient. She declines reversible options including LARC. She understands sterilization is permanent, irreversible, risks of failure, regret and ectopic. In addition she understands there are surgical risks as well. Her questions were answered to her satisfaction and consent was signed. Leatha Kumar MD Gestational diabetes mellitus, class A1 11/18/1907/07/2017 Overview: November 17, 2016 Abnormal 3 hr at 11w. Leatha Kumar MD Unplanned 11/03/2016 07/07/2017 Overview: 11/03/2016This is a surprise . Patient states she got pregnanct on oral contraceptives.The FOB is the father of her previous son. Patient desires PPTL. TKRN Obesity in 11/03/2016 07/07/2017 Overview: 11/03/2016She is obese. Will plan on GCT @ [facility]. TKRN Tobacco use during , antepartum 017 07/07/2017 Overview: 11/03/2016Pt smokes 1/2 pack a day of cigarettes. Discussed risks of smoking during . Advised pt to quit.TKRN Nausea/vomiting in 11/03/2016 Overview: 11/03/2016 Patient is complaining of nausea and occasional vomiting in . Dietary considerations discussed. Patient has tried Vitamin B6 and unisom with little relief. Dr Kumar wrote order for Phenergan. Advised patient to call/come in if she is unable to keep any food or fluids down in a 24-hour period. TKRN Abnormal glucose complicating 10/13/19 15 11/17/2016 Overview: November 08, 2016 Needs 3 hr. Leatha Kumar MD Supervision of other high-risk 015 01/22/2015 Overview: July 03, 2014 elevated WBC at [facility], had infection at that time, trending down. monitor. Leatha Kumar MD Request for sterilization 06/30/20142015 Overview: June 30, 2014 Desires tubal. VALENTIN given. Leatha Kumar MD October 11, 2014 Signed tubal papers. Leatha Kumar MD Anxiety in , antepartum 05/26/2014 01/22/2015 Overview: 05/26/14 - discussed R/B/A & use of medication in , she will cont effexor, stop ativan - KJ Poor support system complicating 05/2601/22/2015 Overview: 05/26/14 - patient is from her - KJ Tobacco use during 05/26/201404/2014 Overview: 05/26/14 - advised on risks & cessation - KJ Obesity complicating 05/26/2014 1 03/24/2014 Overview: 05/26/14 - early GCT today - KJ Generalized abdominal pain 02/21/201307/03 Pelvic pain complicating 02/21/2013 07/05/2013 Frequency of urination 02/21/2013 5 NO SHOW 01/12/2013 07/03/2014 Tobacco abuse 04/12/2012 07/03/2014 Obesity (BMI 30.0-34.9) 04/12/2012 08/20/19 18 Rebound headache 04/12/2012 01/22/2015 Unspecified high-risk 06/19/2008 04/12/2012 Supervision of other normal 12/07/2007 06/19/2008 Other threatened labor, unspecified as to episod e of care 11/29/2005 01/14/2006 Supervision of other normal 08/07/2005 01/14/2006 documented as of this encounter (statuses as of 01/21/2022) [facility] History of Past illness Narrative* Problem Noted Date Resolved Date Severe sepsis 09/11/2018 04/05/2019 Last Assessment & Plan: -The patient was tachycardic, tachypnic, febrile, WBC 31 and LA 1.6. -S/p fluid resuscitation, BP is stable -likely 2/2 HCP, CT chest showed Interval decreased cavitary component and size of right upper lobe pulmonary opacities. Interval new cavitation involving left lower lobe opacities and Interval new region of consolidation within the right lower lobe, possible atelectasis/inflammation/infection. -BC is negative, UC is showing Klebsiella/Enterobacter (UA is clean and the patient is asymptomatic, less likely UTI) -Infectious disease is following, nasal MRSA is negative -Repeat blood culture negative -Continue with Meropenem through -Ordered for Midline Respiratory failure 08/13/2018 04/05/2019 HIT (heparin-induced thrombocytopenia) 9 04/05/2019 SANTANA (acute kidney injury) 08/05/20182018 Last Assessment & Plan: -AKD developed after her prolonged ICU course -Cr is improving -Daily BMP Nicotine use disorder, F17.2 07/19/2018 ARDS (adult respiratory distress syndrome) 07/1604/05/2019 Acute respiratory failure with hypoxia and hyper capnia 07/16/2018 04/05/2019 Pneumonia of both lower lobes due to infectious organism 07/16/2018 04/05/2019 Septic shock 07/16/2018 04/05/2019 Acute encephalopathy 07/16/2018 08/23/2018 Encounter for sterilization 03/11/201702/21 Overview: Risks, benefits and alternatives to sterilization have been discussed with the patient. She declines reversible options including LARC. She understands sterilization is permanent, irreversible, risks of failure, regret and ectopic. In addition she understands there are surgical risks as well. Her questions were answered to her satisfaction and consent was signed. Leatha Kumar MD Gestational diabetes mellitus, class A1 11/18/19 17 07/07/2017 Overview: November 17, 2016 Abnormal 3 hr at 11w. Leatha Kumar MD Unplanned 11/03/2016 07/07/2017 Overview: 11/03/2016This is a surprise . Patient states she got pregnanct on oral contraceptives.The FOB is the father of her previous son. Patient desires PPTL. TKRN Obesity in 11/03/2016 07/07/2017 Overview: 11/03/2016She is obese. Will plan on GCT @ [facility]. TKRN Tobacco use during , antepartum 017 07/07/2017 Overview: 11/03/2016Pt smokes 1/2 pack a day of cigarettes. Discussed risks of smoking during . Advised pt to quit.TKRN Nausea/vomiting in 11/03/2016 Overview: 11/03/2016 Patient is complaining of nausea and occasional vomiting in . Dietary considerations discussed. Patient has tried Vitamin B6 and unisom with little relief. Dr Kumar wrote order for Phenergan. Advised patient to call/come in if she is unable to keep any food or fluids down in a 24-hour period. TKRN Abnormal glucose complicating 10/13/19 15 11/17/2016 Overview: November 08, 2016 Needs 3 hr. Leatha Kumar MD Supervision of other high-risk 015 01/22/2015 Overview: July 03, 2014 elevated WBC at [facility], had infection at that time, trending down. monitor. Leatha Kumar MD Request for sterilization 06/30/20142015 Overview: June 30, 2014 Desires tubal. VALENTIN given. Leatha Kumar MD October 11, 2014 Signed tubal papers. Leatha Kumar MD Anxiety in , antepartum 05/26/2014 01/22/2015 Overview: 05/26/14 - discussed R/B/A & use of medication in , she will cont effexor, stop ativan - KJ Poor support system complicating 05/2601/22/2015 Overview: 05/26/14 - patient is from her - KJ Tobacco use during 05/26/201404/2014 Overview: 05/26/14 - advised on risks & cessation - KJ Obesity complicating 05/26/2014 1 03/24/2014 Overview: 05/26/14 - early GCT today - KJ Generalized abdominal pain 02/21/201307/03 Pelvic pain complicating 02/21/2013 07/05/2013 Frequency of urination 02/21/2013 5 NO SHOW 01/12/2013 07/03/2014 Tobacco abuse 04/12/2012 07/03/2014 Obesity (BMI 30.0-34.9) 04/12/2012 08/20/19 18 Rebound headache 04/12/2012 01/22/2015 Unspecified high-risk 06/19/2008 04/12/2012 Supervision of other normal 12/07/2007 06/19/2008 Other threatened labor, unspecified as to episod e of care 11/29/2005 01/14/2006 Supervision of other normal 08/07/2005 01/14/2006 documented as of this encounter (statuses as of 01/21/2022) [facility] History of Past illness Narrative* Problem Noted Date Resolved Date Severe sepsis 09/11/2018 04/05/2019 Last Assessment & Plan: -The patient was tachycardic, tachypnic, febrile, WBC 31 and LA 1.6. -S/p fluid resuscitation, BP is stable -likely 2/2 HCP, CT chest showed Interval decreased cavitary component and size of right upper lobe pulmonary opacities. Interval new cavitation involving left lower lobe opacities and Interval new region of consolidation within the right lower lobe, possible atelectasis/inflammation/infection. -BC is negative, UC is showing Klebsiella/Enterobacter (UA is clean and the patient is asymptomatic, less likely UTI) -Infectious disease is following, nasal MRSA is negative -Repeat blood culture negative -Continue with Meropenem through -Ordered for Midline Respiratory failure 08/13/2018 04/05/2019 HIT (heparin-induced thrombocytopenia) 9 04/05/2019 SANTANA (acute kidney injury) 08/05/20182018 Last Assessment & Plan: -AKD developed after her prolonged ICU course -Cr is improving -Daily BMP Nicotine use disorder, F17.2 07/19/2018 ARDS (adult respiratory distress syndrome) 07/1604/05/2019 Acute respiratory failure with hypoxia and hyper capnia 07/16/2018 04/05/2019 Pneumonia of both lower lobes due to infectious organism 07/16/2018 04/05/2019 Septic shock 07/16/2018 04/05/2019 Acute encephalopathy 07/16/2018 08/23/2018 Encounter for sterilization 03/11/201702/21 Overview: Risks, benefits and alternatives to sterilization have been discussed with the patient. She declines reversible options including LARC. She understands sterilization is permanent, irreversible, risks of failure, regret and ectopic. In addition she understands there are surgical risks as well. Her questions were answered to her satisfaction and consent was signed. Leatha Kumar MD Gestational diabetes mellitus, class A1 11/18/19 17 07/07/2017 Overview: November 17, 2016 Abnormal 3 hr at 11w. Leatha Kumar MD Unplanned 11/03/2016 07/07/2017 Overview: 11/03/2016This is a surprise . Patient states she got pregnanct on oral contraceptives.The FOB is the father of her previous son. Patient desires PPTL. TKRN Obesity in 11/03/2016 07/07/2017 Overview: 11/03/2016She is obese. Will plan on GCT @ [facility]. TKRN Tobacco use during , antepartum 017 07/07/2017 Overview: 11/03/2016Pt smokes 1/2 pack a day of cigarettes. Discussed risks of smoking during . Advised pt to quit.TKRN Nausea/vomiting in 11/03/2016 Overview: 11/03/2016 Patient is complaining of nausea and occasional vomiting in . Dietary considerations discussed. Patient has tried Vitamin B6 and unisom with little relief. Dr Kumar wrote order for Phenergan. Advised patient to call/come in if she is unable to keep any food or fluids down in a 24-hour period. TKRN Abnormal glucose complicating 10/13/19 15 11/17/2016 Overview: November 08, 2016 Needs 3 hr. Leatha Kumar MD Supervision of other high-risk 015 01/22/2015 Overview: July 03, 2014 elevated WBC at [facility], had infection at that time, trending down. monitor. Leatha Kumar MD Request for sterilization 06/30/20142015 Overview: June 30, 2014 Desires tubal. VALENTIN given. Leatha Kumar MD October 11, 2014 Signed tubal papers. Leatha Kumar MD Anxiety in , antepartum 05/26/2014 01/22/2015 Overview: 05/26/14 - discussed R/B/A & use of medication in , she will cont effexor, stop ativan - KJ Poor support system complicating 05/2601/22/2015 Overview: 05/26/14 - patient is from her - KJ Tobacco use during 05/26/201404/2014 Overview: 05/26/14 - advised on risks & cessation - KJ Obesity complicating 05/26/2014 1 03/24/2014 Overview: 05/26/14 - early GCT today - KJ Generalized abdominal pain 02/21/201307/03 Pelvic pain complicating 02/21/2013 07/05/2013 Frequency of urination 02/21/2013 5 NO SHOW 01/12/2013 07/03/2014 Tobacco abuse 04/12/2012 07/03/2014 Obesity (BMI 30.0-34.9) 04/12/2012 08/20/19 18 Rebound headache 04/12/2012 01/22/2015 Unspecified high-risk 06/19/2008 04/12/2012 Supervision of other normal 12/07/2007 06/19/2008 Other threatened labor, unspecified as to episod e of care 11/29/2005 01/14/2006 Supervision of other normal 08/07/2005 01/14/2006 documented as of this encounter (statuses as of 01/21/2022) [facility] History of Past illness Narrative* Problem Noted Date Resolved Date Severe sepsis 09/11/2018 04/05/2019 Last Assessment & Plan: -The patient was tachycardic, tachypnic, febrile, WBC 31 and LA 1.6. -S/p fluid resuscitation, BP is stable -likely 2/2 HCP, CT chest showed Interval decreased cavitary component and size of right upper lobe pulmonary opacities. Interval new cavitation involving left lower lobe opacities and Interval new region of consolidation within the right lower lobe, possible atelectasis/inflammation/infection. -BC is negative, UC is showing Klebsiella/Enterobacter (UA is clean and the patient is asymptomatic, less likely UTI) -Infectious disease is following, nasal MRSA is negative -Repeat blood culture negative -Continue with Meropenem through -Ordered for Midline Respiratory failure 08/13/2018 04/05/2019 HIT (heparin-induced thrombocytopenia) 9 04/05/2019 SANTANA (acute kidney injury) 08/05/20182018 Last Assessment & Plan: -AKD developed after her prolonged ICU course -Cr is improving -Daily BMP Nicotine use disorder, F17.2 07/19/2018 ARDS (adult respiratory distress syndrome) 07/1604/05/2019 Acute respiratory failure with hypoxia and hyper capnia 07/16/2018 04/05/2019 Pneumonia of both lower lobes due to infectious organism 07/16/2018 04/05/2019 Septic shock 07/16/2018 04/05/2019 Acute encephalopathy 07/16/2018 08/23/2018 Encounter for sterilization 03/11/201702/21 Overview: Risks, benefits and alternatives to sterilization have been discussed with the patient. She declines reversible options including LARC. She understands sterilization is permanent, irreversible, risks of failure, regret and ectopic. In addition she understands there are surgical risks as well. Her questions were answered to her satisfaction and consent was signed. Leatha Kumar MD Gestational diabetes mellitus, class A1 11/18/1907/07/2017 Overview: November 17, 2016 Abnormal 3 hr at 11w. Leatha Kumar MD Unplanned 11/03/2016 07/07/2017 Overview: 11/03/2016This is a surprise . Patient states she got pregnanct on oral contraceptives.The FOB is the father of her previous son. Patient desires PPTL. TKRN Obesity in 11/03/2016 07/07/2017 Overview: 11/03/2016She is obese. Will plan on GCT @ [facility]. TKRN Tobacco use during , antepartum 017 07/07/2017 Overview: 11/03/2016Pt smokes 1/2 pack a day of cigarettes. Discussed risks of smoking during . Advised pt to quit.TKRN Nausea/vomiting in 11/03/2016 Overview: 11/03/2016 Patient is complaining of nausea and occasional vomiting in . Dietary considerations discussed. Patient has tried Vitamin B6 and unisom with little relief. Dr Kumar wrote order for Phenergan. Advised patient to call/come in if she is unable to keep any food or fluids down in a 24-hour period. TKRN Abnormal glucose complicating 10/13/19 15 11/17/2016 Overview: November 08, 2016 Needs 3 hr. Leatha Kumar MD Supervision of other high-risk 015 01/22/2015 Overview: July 03, 2014 elevated WBC at [facility], had infection at that time, trending down. monitor. Leatha Kumar MD Request for sterilization 06/30/20142015 Overview: June 30, 2014 Desires tubal. VALENTIN given. Leatha Kumar MD October 11, 2014 Signed tubal papers. Leatha Kumar MD Anxiety in , antepartum 05/26/2014 01/22/2015 Overview: 05/26/14 - discussed R/B/A & use of medication in , she will cont effexor, stop ativan - KJ Poor support system complicating 05/2601/22/2015 Overview: 05/26/14 - patient is from her - KJ Tobacco use during 05/26/201404/2014 Overview: 05/26/14 - advised on risks & cessation - KJ Obesity complicating 05/26/2014 1 03/24/2014 Overview: 05/26/14 - early GCT today - KJ Generalized abdominal pain 02/21/201307/03 Pelvic pain complicating 02/21/2013 07/05/2013 Frequency of urination 02/21/2013 5 NO SHOW 01/12/2013 07/03/2014 Tobacco abuse 04/12/2012 07/03/2014 Obesity (BMI 30.0-34.9) 04/12/2012 08/20/19 18 Rebound headache 04/12/2012 01/22/2015 Unspecified high-risk 06/19/2008 04/12/2012 Supervision of other normal 12/07/2007 06/19/2008 Other threatened labor, unspecified as to episod e of care 11/29/2005 01/14/2006 Supervision of other normal 08/07/2005 01/14/2006 documented as of this encounter (statuses as of 01/24/2022) [facility] History of Past illness Narrative* Problem Noted Date Resolved Date Severe sepsis 09/11/2018 04/05/2019 Last Assessment & Plan: -The patient was tachycardic, tachypnic, febrile, WBC 31 and LA 1.6. -S/p fluid resuscitation, BP is stable -likely 2/2 HCP, CT chest showed Interval decreased cavitary component and size of right upper lobe pulmonary opacities. Interval new cavitation involving left lower lobe opacities and Interval new region of consolidation within the right lower lobe, possible atelectasis/inflammation/infection. -BC is negative, UC is showing Klebsiella/Enterobacter (UA is clean and the patient is asymptomatic, less likely UTI) -Infectious disease is following, nasal MRSA is negative -Repeat blood culture negative -Continue with Meropenem through -Ordered for Midline Respiratory failure 08/13/2018 04/05/2019 HIT (heparin-induced thrombocytopenia) 9 04/05/2019 SANTANA (acute kidney injury) 08/05/20182018 Last Assessment & Plan: -AKD developed after her prolonged ICU course -Cr is improving -Daily BMP Nicotine use disorder, F17.2 07/19/2018 ARDS (adult respiratory distress syndrome) 07/1604/05/2019 Acute respiratory failure with hypoxia and hyper capnia 07/16/2018 04/05/2019 Pneumonia of both lower lobes due to infectious organism 07/16/2018 04/05/2019 Septic shock 07/16/2018 04/05/2019 Acute encephalopathy 07/16/2018 08/23/2018 Encounter for sterilization 03/11/201702/21 Overview: Risks, benefits and alternatives to sterilization have been discussed with the patient. She declines reversible options including LARC. She understands sterilization is permanent, irreversible, risks of failure, regret and ectopic. In addition she understands there are surgical risks as well. Her questions were answered to her satisfaction and consent was signed. Leatha Kumar MD Gestational diabetes mellitus, class A1 11/18/19 17 07/07/2017 Overview: November 17, 2016 Abnormal 3 hr at 11w. Leatha Kumar MD Unplanned 11/03/2016 07/07/2017 Overview: 11/03/2016This is a surprise . Patient states she got pregnanct on oral contraceptives.The FOB is the father of her previous son. Patient desires PPTL. TKRN Obesity in 11/03/2016 07/07/2017 Overview: 11/03/2016She is obese. Will plan on GCT @ [facility]. TKRN Tobacco use during , antepartum 017 07/07/2017 Overview: 11/03/2016Pt smokes 1/2 pack a day of cigarettes. Discussed risks of smoking during . Advised pt to quit.TKRN Nausea/vomiting in 11/03/2016 Overview: 11/03/2016 Patient is complaining of nausea and occasional vomiting in . Dietary considerations discussed. Patient has tried Vitamin B6 and unisom with little relief. Dr Kumar wrote order for Phenergan. Advised patient to call/come in if she is unable to keep any food or fluids down in a 24-hour period. TKRN Abnormal glucose complicating 10/13/19 15 11/17/2016 Overview: November 08, 2016 Needs 3 hr. Leatha Kumar MD Supervision of other high-risk 015 01/22/2015 Overview: July 03, 2014 elevated WBC at [facility], had infection at that time, trending down. monitor. Leatha Kumar MD Request for sterilization 06/30/20142015 Overview: June 30, 2014 Desires tubal. VALENTIN given. Leatha Kumar MD October 11, 2014 Signed tubal papers. Leatha Kumar MD Anxiety in , antepartum 05/26/2014 01/22/2015 Overview: 05/26/14 - discussed R/B/A & use of medication in , she will cont effexor, stop ativan - KJ Poor support system complicating 05/2601/22/2015 Overview: 05/26/14 - patient is from her - KJ Tobacco use during 05/26/201404/2014 Overview: 05/26/14 - advised on risks & cessation - KJ Obesity complicating 05/26/2014 1 03/24/2014 Overview: 05/26/14 - early GCT today - KJ Generalized abdominal pain 02/21/201307/03 Pelvic pain complicating 02/21/2013 07/05/2013 Frequency of urination 02/21/2013 5 NO SHOW 01/12/2013 07/03/2014 Tobacco abuse 04/12/2012 07/03/2014 Obesity (BMI 30.0-34.9) 04/12/2012 08/20/19 18 Rebound headache 04/12/2012 01/22/2015 Unspecified high-risk 06/19/2008 04/12/2012 Supervision of other normal 12/07/2007 06/19/2008 Other threatened labor, unspecified as to episod e of care 11/29/2005 01/14/2006 Supervision of other normal 08/07/2005 01/14/2006 documented as of this encounter (statuses as of 01/30/2022) [facility] History of Past illness Narrative* Problem Noted Date Resolved Date Severe sepsis 09/11/2018 04/05/2019 Last Assessment & Plan: -The patient was tachycardic, tachypnic, febrile, WBC 31 and LA 1.6. -S/p fluid resuscitation, BP is stable -likely 2/2 HCP, CT chest showed Interval decreased cavitary component and size of right upper lobe pulmonary opacities. Interval new cavitation involving left lower lobe opacities and Interval new region of consolidation within the right lower lobe, possible atelectasis/inflammation/infection. -BC is negative, UC is showing Klebsiella/Enterobacter (UA is clean and the patient is asymptomatic, less likely UTI) -Infectious disease is following, nasal MRSA is negative -Repeat blood culture negative -Continue with Meropenem through -Ordered for Midline Respiratory failure 08/13/2018 04/05/2019 HIT (heparin-induced thrombocytopenia) 9 04/05/2019 SANTANA (acute kidney injury) 08/05/20182018 Last Assessment & Plan: -AKD developed after her prolonged ICU course -Cr is improving -Daily BMP Nicotine use disorder, F17.2 07/19/2018 ARDS (adult respiratory distress syndrome) 07/1604/05/2019 Acute respiratory failure with hypoxia and hyper capnia 07/16/2018 04/05/2019 Pneumonia of both lower lobes due to infectious organism 07/16/2018 04/05/2019 Septic shock 07/16/2018 04/05/2019 Acute encephalopathy 07/16/2018 08/23/2018 Encounter for sterilization 03/11/201702/21 Overview: Risks, benefits and alternatives to sterilization have been discussed with the patient. She declines reversible options including LARC. She understands sterilization is permanent, irreversible, risks of failure, regret and ectopic. In addition she understands there are surgical risks as well. Her questions were answered to her satisfaction and consent was signed. Leatha Kumar MD Gestational diabetes mellitus, class A1 11/18/1907/07/2017 Overview: November 17, 2016 Abnormal 3 hr at 11w. Leatha Kumar MD Unplanned 11/03/2016 07/07/2017 Overview: 11/03/2016This is a surprise . Patient states she got pregnanct on oral contraceptives.The FOB is the father of her previous son. Patient desires PPTL. TKRN Obesity in 11/03/2016 07/07/2017 Overview: 11/03/2016She is obese. Will plan on GCT @ [facility]. TKRN Tobacco use during , antepartum 017 07/07/2017 Overview: 11/03/2016Pt smokes 1/2 pack a day of cigarettes. Discussed risks of smoking during . Advised pt to quit.TKRN Nausea/vomiting in 11/03/2016 Overview: 11/03/2016 Patient is complaining of nausea and occasional vomiting in . Dietary considerations discussed. Patient has tried Vitamin B6 and unisom with little relief. Dr Kumar wrote order for Phenergan. Advised patient to call/come in if she is unable to keep any food or fluids down in a 24-hour period. TKRN Abnormal glucose complicating 10/13/19 15 11/17/2016 Overview: November 08, 2016 Needs 3 hr. Leatha Kumar MD Supervision of other high-risk 015 01/22/2015 Overview: July 03, 2014 elevated WBC at [facility], had infection at that time, trending down. monitor. Leatha Kumar MD Request for sterilization 06/30/20142015 Overview: June 30, 2014 Desires tubal. VALENTIN given. Leatha Kumar MD October 11, 2014 Signed tubal papers. Leatha Kumar MD Anxiety in , antepartum 05/26/2014 01/22/2015 Overview: 05/26/14 - discussed R/B/A & use of medication in , she will cont effexor, stop ativan - KJ Poor support system complicating 05/2601/22/2015 Overview: 05/26/14 - patient is from her - KJ Tobacco use during 05/26/201404/2014 Overview: 05/26/14 - advised on risks & cessation - KJ Obesity complicating 05/26/2014 1 03/24/2014 Overview: 05/26/14 - early GCT today - KJ Generalized abdominal pain 02/21/201307/03 Pelvic pain complicating 02/21/2013 07/05/2013 Frequency of urination 02/21/2013 5 NO SHOW 01/12/2013 07/03/2014 Tobacco abuse 04/12/2012 07/03/2014 Obesity (BMI 30.0-34.9) 04/12/2012 08/20/19 18 Rebound headache 04/12/2012 01/22/2015 Unspecified high-risk 06/19/2008 04/12/2012 Supervision of other normal 12/07/2007 06/19/2008 Other threatened labor, unspecified as to episod e of care 11/29/2005 01/14/2006 Supervision of other normal 08/07/2005 01/14/2006 documented as of this encounter (statuses as of 02/04/2022) [facility] History of Past illness Narrative* Problem Noted Date Resolved Date Severe sepsis 09/11/2018 04/05/2019 Last Assessment & Plan: -The patient was tachycardic, tachypnic, febrile, WBC 31 and LA 1.6. -S/p fluid resuscitation, BP is stable -likely 2/2 HCP, CT chest showed Interval decreased cavitary component and size of right upper lobe pulmonary opacities. Interval new cavitation involving left lower lobe opacities and Interval new region of consolidation within the right lower lobe, possible atelectasis/inflammation/infection. -BC is negative, UC is showing Klebsiella/Enterobacter (UA is clean and the patient is asymptomatic, less likely UTI) -Infectious disease is following, nasal MRSA is negative -Repeat blood culture negative -Continue with Meropenem through -Ordered for Midline Respiratory failure 08/13/2018 04/05/2019 HIT (heparin-induced thrombocytopenia) 9 04/05/2019 SANTANA (acute kidney injury) 08/05/20182018 Last Assessment & Plan: -AKD developed after her prolonged ICU course -Cr is improving -Daily BMP Nicotine use disorder, F17.2 07/19/2018 ARDS (adult respiratory distress syndrome) 07/1604/05/2019 Acute respiratory failure with hypoxia and hyper capnia 07/16/2018 04/05/2019 Pneumonia of both lower lobes due to infectious organism 07/16/2018 04/05/2019 Septic shock 07/16/2018 04/05/2019 Acute encephalopathy 07/16/2018 08/23/2018 Encounter for sterilization 03/11/201702/21 Overview: Risks, benefits and alternatives to sterilization have been discussed with the patient. She declines reversible options including LARC. She understands sterilization is permanent, irreversible, risks of failure, regret and ectopic. In addition she understands there are surgical risks as well. Her questions were answered to her satisfaction and consent was signed. Leatha Kumar MD Gestational diabetes mellitus, class A1 11/18/19 17 07/07/2017 Overview: November 17, 2016 Abnormal 3 hr at 11w. Leatha Kumar MD Unplanned 11/03/2016 07/07/2017 Overview: 11/03/2016This is a surprise . Patient states she got pregnanct on oral contraceptives.The FOB is the father of her previous son. Patient desires PPTL. TKRN Obesity in 11/03/2016 07/07/2017 Overview: 11/03/2016She is obese. Will plan on GCT @ [facility]. TKRN Tobacco use during , antepartum 017 07/07/2017 Overview: 11/03/2016Pt smokes 1/2 pack a day of cigarettes. Discussed risks of smoking during . Advised pt to quit.TKRN Nausea/vomiting in 11/03/2016 Overview: 11/03/2016 Patient is complaining of nausea and occasional vomiting in . Dietary considerations discussed. Patient has tried Vitamin B6 and unisom with little relief. Dr Kumar wrote order for Phenergan. Advised patient to call/come in if she is unable to keep any food or fluids down in a 24-hour period. TKRN Abnormal glucose complicating 10/13/19 15 11/17/2016 Overview: November 08, 2016 Needs 3 hr. Leatha Kumar MD Supervision of other high-risk 015 01/22/2015 Overview: July 03, 2014 elevated WBC at [facility], had infection at that time, trending down. monitor. Leatha Kumar MD Request for sterilization 06/30/20142015 Overview: June 30, 2014 Desires tubal. VALENTIN given. Leatha Kumar MD October 11, 2014 Signed tubal papers. Leatha Kumar MD Anxiety in , antepartum 05/26/2014 01/22/2015 Overview: 05/26/14 - discussed R/B/A & use of medication in , she will cont effexor, stop ativan - KJ Poor support system complicating 05/2601/22/2015 Overview: 05/26/14 - patient is from her - KJ Tobacco use during 05/26/201404/2014 Overview: 05/26/14 - advised on risks & cessation - KJ Obesity complicating 05/26/2014 1 03/24/2014 Overview: 05/26/14 - early GCT today - KJ Generalized abdominal pain 02/21/201307/03 Pelvic pain complicating 02/21/2013 07/05/2013 Frequency of urination 02/21/2013 5 NO SHOW 01/12/2013 07/03/2014 Tobacco abuse 04/12/2012 07/03/2014 Obesity (BMI 30.0-34.9) 04/12/2012 08/20/19 18 Rebound headache 04/12/2012 01/22/2015 Unspecified high-risk 06/19/2008 04/12/2012 Supervision of other normal 12/07/2007 06/19/2008 Other threatened labor, unspecified as to episod e of care 11/29/2005 01/14/2006 Supervision of other normal 08/07/2005 01/14/2006 documented as of this encounter (statuses as of 02/18/2022) [facility] History of Past illness Narrative* Problem Noted Date Resolved Date Severe sepsis 09/11/2018 04/05/2019 Last Assessment & Plan: -The patient was tachycardic, tachypnic, febrile, WBC 31 and LA 1.6. -S/p fluid resuscitation, BP is stable -likely 2/2 HCP, CT chest showed Interval decreased cavitary component and size of right upper lobe pulmonary opacities. Interval new cavitation involving left lower lobe opacities and Interval new region of consolidation within the right lower lobe, possible atelectasis/inflammation/infection. -BC is negative, UC is showing Klebsiella/Enterobacter (UA is clean and the patient is asymptomatic, less likely UTI) -Infectious disease is following, nasal MRSA is negative -Repeat blood culture negative -Continue with Meropenem through -Ordered for Midline Respiratory failure 08/13/2018 04/05/2019 HIT (heparin-induced thrombocytopenia) 9 04/05/2019 SANTANA (acute kidney injury) 08/05/20182018 Last Assessment & Plan: -AKD developed after her prolonged ICU course -Cr is improving -Daily BMP Nicotine use disorder, F17.2 07/19/2018 ARDS (adult respiratory distress syndrome) 07/1604/05/2019 Acute respiratory failure with hypoxia and hyper capnia 07/16/2018 04/05/2019 Pneumonia of both lower lobes due to infectious organism 07/16/2018 04/05/2019 Septic shock 07/16/2018 04/05/2019 Acute encephalopathy 07/16/2018 08/23/2018 Encounter for sterilization 03/11/201702/21 Overview: Risks, benefits and alternatives to sterilization have been discussed with the patient. She declines reversible options including LARC. She understands sterilization is permanent, irreversible, risks of failure, regret and ectopic. In addition she understands there are surgical risks as well. Her questions were answered to her satisfaction and consent was signed. Leatha Kumar MD Gestational diabetes mellitus, class A1 11/18/19 17 07/07/2017 Overview: November 17, 2016 Abnormal 3 hr at 11w. Leatha Kumar MD Unplanned 11/03/2016 07/07/2017 Overview: 11/03/2016This is a surprise . Patient states she got pregnanct on oral contraceptives.The FOB is the father of her previous son. Patient desires PPTL. TKRN Obesity in 11/03/2016 07/07/2017 Overview: 11/03/2016She is obese. Will plan on GCT @ [facility]. TKRN Tobacco use during , antepartum 017 07/07/2017 Overview: 11/03/2016Pt smokes 1/2 pack a day of cigarettes. Discussed risks of smoking during . Advised pt to quit.TKRN Nausea/vomiting in 11/03/2016 Overview: 11/03/2016 Patient is complaining of nausea and occasional vomiting in . Dietary considerations discussed. Patient has tried Vitamin B6 and unisom with little relief. Dr Kumar wrote order for Phenergan. Advised patient to call/come in if she is unable to keep any food or fluids down in a 24-hour period. TKRN Abnormal glucose complicating 10/13/19 15 11/17/2016 Overview: November 08, 2016 Needs 3 hr. Leatha Kumar MD Supervision of other high-risk 015 01/22/2015 Overview: July 03, 2014 elevated WBC at [facility], had infection at that time, trending down. monitor. Leatha Kumar MD Request for sterilization 06/30/20142015 Overview: June 30, 2014 Desires tubal. VALENTIN given. Leatha Kumar MD October 11, 2014 Signed tubal papers. Leatha Kumar MD Anxiety in , antepartum 05/26/2014 01/22/2015 Overview: 05/26/14 - discussed R/B/A & use of medication in , she will cont effexor, stop ativan - KJ Poor support system complicating 05/2601/22/2015 Overview: 05/26/14 - patient is from her - KJ Tobacco use during 05/26/201404/2014 Overview: 05/26/14 - advised on risks & cessation - KJ Obesity complicating 05/26/2014 1 03/24/2014 Overview: 05/26/14 - early GCT today - KJ Generalized abdominal pain 02/21/201307/03 Pelvic pain complicating 02/21/2013 07/05/2013 Frequency of urination 02/21/2013 5 NO SHOW 01/12/2013 07/03/2014 Tobacco abuse 04/12/2012 07/03/2014 Obesity (BMI 30.0-34.9) 04/12/2012 08/20/19 18 Rebound headache 04/12/2012 01/22/2015 Unspecified high-risk 06/19/2008 04/12/2012 Supervision of other normal 12/07/2007 06/19/2008 Other threatened labor, unspecified as to episod e of care 11/29/2005 01/14/2006 Supervision of other normal 08/07/2005 01/14/2006 documented as of this encounter (statuses as of 02/25/2022) [facility] History of Past illness Narrative* Problem Noted Date Resolved Date Severe sepsis 09/11/2018 04/05/2019 Last Assessment & Plan: -The patient was tachycardic, tachypnic, febrile, WBC 31 and LA 1.6. -S/p fluid resuscitation, BP is stable -likely 2/2 HCP, CT chest showed Interval decreased cavitary component and size of right upper lobe pulmonary opacities. Interval new cavitation involving left lower lobe opacities and Interval new region of consolidation within the right lower lobe, possible atelectasis/inflammation/infection. -BC is negative, UC is showing Klebsiella/Enterobacter (UA is clean and the patient is asymptomatic, less likely UTI) -Infectious disease is following, nasal MRSA is negative -Repeat blood culture negative -Continue with Meropenem through -Ordered for Midline Respiratory failure 08/13/2018 04/05/2019 HIT (heparin-induced thrombocytopenia) 9 04/05/2019 SANTANA (acute kidney injury) 08/05/20182018 Last Assessment & Plan: -AKD developed after her prolonged ICU course -Cr is improving -Daily BMP Nicotine use disorder, F17.2 07/19/2018 ARDS (adult respiratory distress syndrome) 07/1604/05/2019 Acute respiratory failure with hypoxia and hyper capnia 07/16/2018 04/05/2019 Pneumonia of both lower lobes due to infectious organism 07/16/2018 04/05/2019 Septic shock 07/16/2018 04/05/2019 Acute encephalopathy 07/16/2018 08/23/2018 Encounter for sterilization 03/11/201702/21 Overview: Risks, benefits and alternatives to sterilization have been discussed with the patient. She declines reversible options including LARC. She understands sterilization is permanent, irreversible, risks of failure, regret and ectopic. In addition she understands there are surgical risks as well. Her questions were answered to her satisfaction and consent was signed. Laetha Kumar MD Gestational diabetes mellitus, class A1 11/18/1907/07/2017 Overview: November 17, 2016 Abnormal 3 hr at 11w. Leatha Kumar MD Unplanned 11/03/2016 07/07/2017 Overview: 11/03/2016This is a surprise . Patient states she got pregnanct on oral contraceptives.The FOB is the father of her previous son. Patient desires PPTL. TKRN Obesity in 11/03/2016 07/07/2017 Overview: 11/03/2016She is obese. Will plan on GCT @ [facility]. TKRN Tobacco use during , antepartum 017 07/07/2017 Overview: 11/03/2016Pt smokes 1/2 pack a day of cigarettes. Discussed risks of smoking during . Advised pt to quit.TKRN Nausea/vomiting in 11/03/2016 Overview: 11/03/2016 Patient is complaining of nausea and occasional vomiting in . Dietary considerations discussed. Patient has tried Vitamin B6 and unisom with little relief. Dr Kumar wrote order for Phenergan. Advised patient to call/come in if she is unable to keep any food or fluids down in a 24-hour period. TKRN Abnormal glucose complicating 10/13/19 15 11/17/2016 Overview: November 08, 2016 Needs 3 hr. Leatha Kumar MD Supervision of other high-risk 015 01/22/2015 Overview: July 03, 2014 elevated WBC at [facility], had infection at that time, trending down. monitor. Leatha Kumar MD Request for sterilization 06/30/20142015 Overview: June 30, 2014 Desires tubal. VALENTIN given. Leatha Kumar MD October 11, 2014 Signed tubal papers. Leatha Kumar MD Anxiety in , antepartum 05/26/2014 01/22/2015 Overview: 05/26/14 - discussed R/B/A & use of medication in , she will cont effexor, stop ativan - KJ Poor support system complicating 05/2601/22/2015 Overview: 05/26/14 - patient is from her - KJ Tobacco use during 05/26/201404/2014 Overview: 05/26/14 - advised on risks & cessation - KJ Obesity complicating 05/26/2014 1 03/24/2014 Overview: 05/26/14 - early GCT today - KJ Generalized abdominal pain 02/21/201307/03 Pelvic pain complicating 02/21/2013 07/05/2013 Frequency of urination 02/21/2013 5 NO SHOW 01/12/2013 07/03/2014 Tobacco abuse 04/12/2012 07/03/2014 Obesity (BMI 30.0-34.9) 04/12/2012 08/20/19 18 Rebound headache 04/12/2012 01/22/2015 Unspecified high-risk 06/19/2008 04/12/2012 Supervision of other normal 12/07/2007 06/19/2008 Other threatened labor, unspecified as to episod e of care 11/29/2005 01/14/2006 Supervision of other normal 08/07/2005 01/14/2006 documented as of this encounter (statuses as of 02/27/2022) [facility] History of Past illness Narrative* Problem Noted Date Resolved Date Severe sepsis 09/11/2018 04/05/2019 Last Assessment & Plan: -The patient was tachycardic, tachypnic, febrile, WBC 31 and LA 1.6. -S/p fluid resuscitation, BP is stable -likely 2/2 HCP, CT chest showed Interval decreased cavitary component and size of right upper lobe pulmonary opacities. Interval new cavitation involving left lower lobe opacities and Interval new region of consolidation within the right lower lobe, possible atelectasis/inflammation/infection. -BC is negative, UC is showing Klebsiella/Enterobacter (UA is clean and the patient is asymptomatic, less likely UTI) -Infectious disease is following, nasal MRSA is negative -Repeat blood culture negative -Continue with Meropenem through -Ordered for Midline Respiratory failure 08/13/2018 04/05/2019 HIT (heparin-induced thrombocytopenia) 9 04/05/2019 SANTANA (acute kidney injury) 08/05/20182018 Last Assessment & Plan: -AKD developed after her prolonged ICU course -Cr is improving -Daily BMP Nicotine use disorder, F17.2 07/19/2018 ARDS (adult respiratory distress syndrome) 07/1604/05/2019 Acute respiratory failure with hypoxia and hyper capnia 07/16/2018 04/05/2019 Pneumonia of both lower lobes due to infectious organism 07/16/2018 04/05/2019 Septic shock 07/16/2018 04/05/2019 Acute encephalopathy 07/16/2018 08/23/2018 Encounter for sterilization 03/11/201702/21 Overview: Risks, benefits and alternatives to sterilization have been discussed with the patient. She declines reversible options including LARC. She understands sterilization is permanent, irreversible, risks of failure, regret and ectopic. In addition she understands there are surgical risks as well. Her questions were answered to her satisfaction and consent was signed. Leatha Kumar MD Gestational diabetes mellitus, class A1 11/18/19 17 07/07/2017 Overview: November 17, 2016 Abnormal 3 hr at 11w. Leatha Kumar MD Unplanned 11/03/2016 07/07/2017 Overview: 11/03/2016This is a surprise . Patient states she got pregnanct on oral contraceptives.The FOB is the father of her previous son. Patient desires PPTL. TKRN Obesity in 11/03/2016 07/07/2017 Overview: 11/03/2016She is obese. Will plan on GCT @ [facility]. TKRN Tobacco use during , antepartum 017 07/07/2017 Overview: 11/03/2016Pt smokes 1/2 pack a day of cigarettes. Discussed risks of smoking during . Advised pt to quit.TKRN Nausea/vomiting in 11/03/2016 Overview: 11/03/2016 Patient is complaining of nausea and occasional vomiting in . Dietary considerations discussed. Patient has tried Vitamin B6 and unisom with little relief. Dr Kumar wrote order for Phenergan. Advised patient to call/come in if she is unable to keep any food or fluids down in a 24-hour period. TKRN Abnormal glucose complicating 10/13/19 15 11/17/2016 Overview: November 08, 2016 Needs 3 hr. Leatha Kumar MD Supervision of other high-risk 015 01/22/2015 Overview: July 03, 2014 elevated WBC at [facility], had infection at that time, trending down. monitor. Leatha Kumar MD Request for sterilization 06/30/20142015 Overview: June 30, 2014 Desires tubal. VALENTIN given. Leatha Kumar MD October 11, 2014 Signed tubal papers. Leatha Kumar MD Anxiety in , antepartum 05/26/2014 01/22/2015 Overview: 05/26/14 - discussed R/B/A & use of medication in , she will cont effexor, stop ativan - KJ Poor support system complicating 05/2601/22/2015 Overview: 05/26/14 - patient is from her - KJ Tobacco use during 05/26/201404/2014 Overview: 05/26/14 - advised on risks & cessation - KJ Obesity complicating 05/26/2014 1 03/24/2014 Overview: 05/26/14 - early GCT today - KJ Generalized abdominal pain 02/21/201307/03 Pelvic pain complicating 02/21/2013 07/05/2013 Frequency of urination 02/21/2013 5 NO SHOW 01/12/2013 07/03/2014 Tobacco abuse 04/12/2012 07/03/2014 Obesity (BMI 30.0-34.9) 04/12/2012 08/20/19 18 Rebound headache 04/12/2012 01/22/2015 Unspecified high-risk 06/19/2008 04/12/2012 Supervision of other normal 12/07/2007 06/19/2008 Other threatened labor, unspecified as to episod e of care 11/29/2005 01/14/2006 Supervision of other normal 08/07/2005 01/14/2006 documented as of this encounter (statuses as of 02/28/2022) [facility] History of Past illness Narrative* Problem Noted Date Resolved Date Severe sepsis 09/11/2018 04/05/2019 Last Assessment & Plan: -The patient was tachycardic, tachypnic, febrile, WBC 31 and LA 1.6. -S/p fluid resuscitation, BP is stable -likely 2/2 HCP, CT chest showed Interval decreased cavitary component and size of right upper lobe pulmonary opacities. Interval new cavitation involving left lower lobe opacities and Interval new region of consolidation within the right lower lobe, possible atelectasis/inflammation/infection. -BC is negative, UC is showing Klebsiella/Enterobacter (UA is clean and the patient is asymptomatic, less likely UTI) -Infectious disease is following, nasal MRSA is negative -Repeat blood culture negative -Continue with Meropenem through -Ordered for Midline Respiratory failure 08/13/2018 04/05/2019 HIT (heparin-induced thrombocytopenia) 9 04/05/2019 SANTANA (acute kidney injury) 08/05/20182018 Last Assessment & Plan: -AKD developed after her prolonged ICU course -Cr is improving -Daily BMP Nicotine use disorder, F17.2 07/19/2018 ARDS (adult respiratory distress syndrome) 07/1604/05/2019 Acute respiratory failure with hypoxia and hyper capnia 07/16/2018 04/05/2019 Pneumonia of both lower lobes due to infectious organism 07/16/2018 04/05/2019 Septic shock 07/16/2018 04/05/2019 Acute encephalopathy 07/16/2018 08/23/2018 Encounter for sterilization 03/11/201702/21 Overview: Risks, benefits and alternatives to sterilization have been discussed with the patient. She declines reversible options including LARC. She understands sterilization is permanent, irreversible, risks of failure, regret and ectopic. In addition she understands there are surgical risks as well. Her questions were answered to her satisfaction and consent was signed. Leatha Kumar MD Gestational diabetes mellitus, class A1 11/18/19 17 07/07/2017 Overview: November 17, 2016 Abnormal 3 hr at 11w. Leatha Kumar MD Unplanned 11/03/2016 07/07/2017 Overview: 11/03/2016This is a surprise . Patient states she got pregnanct on oral contraceptives.The FOB is the father of her previous son. Patient desires PPTL. TKRN Obesity in 11/03/2016 07/07/2017 Overview: 11/03/2016She is obese. Will plan on GCT @ [facility]. TKRN Tobacco use during , antepartum 017 07/07/2017 Overview: 11/03/2016Pt smokes 1/2 pack a day of cigarettes. Discussed risks of smoking during . Advised pt to quit.TKRN Nausea/vomiting in 11/03/2016 Overview: 11/03/2016 Patient is complaining of nausea and occasional vomiting in . Dietary considerations discussed. Patient has tried Vitamin B6 and unisom with little relief. Dr Kumar wrote order for Phenergan. Advised patient to call/come in if she is unable to keep any food or fluids down in a 24-hour period. TKRN Abnormal glucose complicating 10/13/19 15 11/17/2016 Overview: November 08, 2016 Needs 3 hr. Leatha Kumar MD Supervision of other high-risk 015 01/22/2015 Overview: July 03, 2014 elevated WBC at [facility], had infection at that time, trending down. monitor. Leatha Kumar MD Request for sterilization 06/30/20142015 Overview: June 30, 2014 Desires tubal. VALENTIN given. Leatha Kumar MD October 11, 2014 Signed tubal papers. Leatha Kumar MD Anxiety in , antepartum 05/26/2014 01/22/2015 Overview: 05/26/14 - discussed R/B/A & use of medication in , she will cont effexor, stop ativan - KJ Poor support system complicating 05/2601/22/2015 Overview: 05/26/14 - patient is from her - KJ Tobacco use during 05/26/201404/2014 Overview: 05/26/14 - advised on risks & cessation - KJ Obesity complicating 05/26/2014 1 03/24/2014 Overview: 05/26/14 - early GCT today - KJ Generalized abdominal pain 02/21/201307/03 Pelvic pain complicating 02/21/2013 07/05/2013 Frequency of urination 02/21/2013 5 NO SHOW 01/12/2013 07/03/2014 Tobacco abuse 04/12/2012 07/03/2014 Obesity (BMI 30.0-34.9) 04/12/2012 08/20/19 18 Rebound headache 04/12/2012 01/22/2015 Unspecified high-risk 06/19/2008 04/12/2012 Supervision of other normal 12/07/2007 06/19/2008 Other threatened labor, unspecified as to episod e of care 11/29/2005 01/14/2006 Supervision of other normal 08/07/2005 01/14/2006 documented as of this encounter (statuses as of 03/03/2022) [facility] History of Past illness Narrative* Problem Noted Date Resolved Date Severe sepsis 09/11/2018 04/05/2019 Last Assessment & Plan: -The patient was tachycardic, tachypnic, febrile, WBC 31 and LA 1.6. -S/p fluid resuscitation, BP is stable -likely 2/2 HCP, CT chest showed Interval decreased cavitary component and size of right upper lobe pulmonary opacities. Interval new cavitation involving left lower lobe opacities and Interval new region of consolidation within the right lower lobe, possible atelectasis/inflammation/infection. -BC is negative, UC is showing Klebsiella/Enterobacter (UA is clean and the patient is asymptomatic, less likely UTI) -Infectious disease is following, nasal MRSA is negative -Repeat blood culture negative -Continue with Meropenem through -Ordered for Midline Respiratory failure 08/13/2018 04/05/2019 HIT (heparin-induced thrombocytopenia) 9 04/05/2019 SANTANA (acute kidney injury) 08/05/20182018 Last Assessment & Plan: -AKD developed after her prolonged ICU course -Cr is improving -Daily BMP Nicotine use disorder, F17.2 07/19/2018 ARDS (adult respiratory distress syndrome) 07/1604/05/2019 Acute respiratory failure with hypoxia and hyper capnia 07/16/2018 04/05/2019 Pneumonia of both lower lobes due to infectious organism 07/16/2018 04/05/2019 Septic shock 07/16/2018 04/05/2019 Acute encephalopathy 07/16/2018 08/23/2018 Encounter for sterilization 03/11/201702/21 Overview: Risks, benefits and alternatives to sterilization have been discussed with the patient. She declines reversible options including LARC. She understands sterilization is permanent, irreversible, risks of failure, regret and ectopic. In addition she understands there are surgical risks as well. Her questions were answered to her satisfaction and consent was signed. Leatha Kumar MD Gestational diabetes mellitus, class A1 11/18/19 17 07/07/2017 Overview: November 17, 2016 Abnormal 3 hr at 11w. Leatha Kumar MD Unplanned 11/03/2016 07/07/2017 Overview: 11/03/2016This is a surprise . Patient states she got pregnanct on oral contraceptives.The FOB is the father of her previous son. Patient desires PPTL. TKRN Obesity in 11/03/2016 07/07/2017 Overview: 11/03/2016She is obese. Will plan on GCT @ [facility]. TKRN Tobacco use during , antepartum 017 07/07/2017 Overview: 11/03/2016Pt smokes 1/2 pack a day of cigarettes. Discussed risks of smoking during . Advised pt to quit.TKRN Nausea/vomiting in 11/03/2016 Overview: 11/03/2016 Patient is complaining of nausea and occasional vomiting in . Dietary considerations discussed. Patient has tried Vitamin B6 and unisom with little relief. Dr Kumar wrote order for Phenergan. Advised patient to call/come in if she is unable to keep any food or fluids down in a 24-hour period. TKRN Abnormal glucose complicating 10/13/19 15 11/17/2016 Overview: November 08, 2016 Needs 3 hr. Leatha Kumar MD Supervision of other high-risk 015 01/22/2015 Overview: July 03, 2014 elevated WBC at [facility], had infection at that time, trending down. monitor. Leatha Kumar MD Request for sterilization 06/30/20142015 Overview: June 30, 2014 Desires tubal. VALENTIN given. Leatha Kumar MD October 11, 2014 Signed tubal papers. Leatha Kumar MD Anxiety in , antepartum 05/26/2014 01/22/2015 Overview: 05/26/14 - discussed R/B/A & use of medication in , she will cont effexor, stop ativan - KJ Poor support system complicating 05/2601/22/2015 Overview: 05/26/14 - patient is from her - KJ Tobacco use during 05/26/201404/2014 Overview: 05/26/14 - advised on risks & cessation - KJ Obesity complicating 05/26/2014 1 03/24/2014 Overview: 05/26/14 - early GCT today - KJ Generalized abdominal pain 02/21/201307/03 Pelvic pain complicating 02/21/2013 07/05/2013 Frequency of urination 02/21/2013 5 NO SHOW 01/12/2013 07/03/2014 Tobacco abuse 04/12/2012 07/03/2014 Obesity (BMI 30.0-34.9) 04/12/2012 08/20/19 18 Rebound headache 04/12/2012 01/22/2015 Unspecified high-risk 06/19/2008 04/12/2012 Supervision of other normal 12/07/2007 06/19/2008 Other threatened labor, unspecified as to episod e of care 11/29/2005 01/14/2006 Supervision of other normal 08/07/2005 01/14/2006 documented as of this encounter (statuses as of 03/03/2022) [facility] History of Past illness Narrative* Problem Noted Date Resolved Date Severe sepsis 09/11/2018 04/05/2019 Last Assessment & Plan: -The patient was tachycardic, tachypnic, febrile, WBC 31 and LA 1.6. -S/p fluid resuscitation, BP is stable -likely 2/2 HCP, CT chest showed Interval decreased cavitary component and size of right upper lobe pulmonary opacities. Interval new cavitation involving left lower lobe opacities and Interval new region of consolidation within the right lower lobe, possible atelectasis/inflammation/infection. -BC is negative, UC is showing Klebsiella/Enterobacter (UA is clean and the patient is asymptomatic, less likely UTI) -Infectious disease is following, nasal MRSA is negative -Repeat blood culture negative -Continue with Meropenem through -Ordered for Midline Respiratory failure 08/13/2018 04/05/2019 HIT (heparin-induced thrombocytopenia) 9 04/05/2019 SANTANA (acute kidney injury) 08/05/20182018 Last Assessment & Plan: -AKD developed after her prolonged ICU course -Cr is improving -Daily BMP Nicotine use disorder, F17.2 07/19/2018 ARDS (adult respiratory distress syndrome) 07/1604/05/2019 Acute respiratory failure with hypoxia and hyper capnia 07/16/2018 04/05/2019 Pneumonia of both lower lobes due to infectious organism 07/16/2018 04/05/2019 Septic shock 07/16/2018 04/05/2019 Acute encephalopathy 07/16/2018 08/23/2018 Encounter for sterilization 03/11/201702/21 Overview: Risks, benefits and alternatives to sterilization have been discussed with the patient. She declines reversible options including LARC. She understands sterilization is permanent, irreversible, risks of failure, regret and ectopic. In addition she understands there are surgical risks as well. Her questions were answered to her satisfaction and consent was signed. Leatha Kumar MD Gestational diabetes mellitus, class A1 11/18/19 17 07/07/2017 Overview: November 17, 2016 Abnormal 3 hr at 11w. Leatha Kumar MD Unplanned 11/03/2016 07/07/2017 Overview: 11/03/2016This is a surprise . Patient states she got pregnanct on oral contraceptives.The FOB is the father of her previous son. Patient desires PPTL. TKRN Obesity in 11/03/2016 07/07/2017 Overview: 11/03/2016She is obese. Will plan on GCT @ [facility]. TKRN Tobacco use during , antepartum 017 07/07/2017 Overview: 11/03/2016Pt smokes 1/2 pack a day of cigarettes. Discussed risks of smoking during . Advised pt to quit.TKRN Nausea/vomiting in 11/03/2016 Overview: 11/03/2016 Patient is complaining of nausea and occasional vomiting in . Dietary considerations discussed. Patient has tried Vitamin B6 and unisom with little relief. Dr Kumar wrote order for Phenergan. Advised patient to call/come in if she is unable to keep any food or fluids down in a 24-hour period. TKRN Abnormal glucose complicating 10/13/19 15 11/17/2016 Overview: November 08, 2016 Needs 3 hr. Leatha Kumar MD Supervision of other high-risk 015 01/22/2015 Overview: July 03, 2014 elevated WBC at [facility], had infection at that time, trending down. monitor. Leatha Kumar MD Request for sterilization 06/30/20142015 Overview: June 30, 2014 Desires tubal. VALENTIN given. Leatha Kumar MD October 11, 2014 Signed tubal papers. Leatha Kumar MD Anxiety in , antepartum 05/26/2014 01/22/2015 Overview: 05/26/14 - discussed R/B/A & use of medication in , she will cont effexor, stop ativan - KJ Poor support system complicating 05/2601/22/2015 Overview: 05/26/14 - patient is from her - KJ Tobacco use during 05/26/201404/2014 Overview: 05/26/14 - advised on risks & cessation - KJ Obesity complicating 05/26/2014 1 03/24/2014 Overview: 3/6/15 - early GCT today - KJ Generalized abdominal pain 02/21/201307/03 Pelvic pain complicating 02/21/2013 07/05/2013 Frequency of urination 02/21/2013 5 NO SHOW 01/12/2013 07/03/2014 Tobacco abuse 04/12/2012 07/03/2014 Obesity (BMI 30.0-34.9) 04/12/2012 08/20/19 18 Rebound headache 04/12/2012 01/22/2015 Unspecified high-risk 06/19/2008 04/12/2012 Supervision of other normal 12/07/2007 06/19/2008 Other threatened labor, unspecified as to episod e of care 11/29/2005 01/14/2006 Supervision of other normal 08/07/2005 01/14/2006 documented as of this encounter (statuses as of 03/03/2022) [facility] History of Past illness Narrative* Problem Noted Date Resolved Date Severe sepsis 09/11/2018 04/05/2019 Last Assessment & Plan: -The patient was tachycardic, tachypnic, febrile, WBC 31 and LA 1.6. -S/p fluid resuscitation, BP is stable -likely 2/2 HCP, CT chest showed Interval decreased cavitary component and size of right upper lobe pulmonary opacities. Interval new cavitation involving left lower lobe opacities and Interval new region of consolidation within the right lower lobe, possible atelectasis/inflammation/infection. -BC is negative, UC is showing Klebsiella/Enterobacter (UA is clean and the patient is asymptomatic, less likely UTI) -Infectious disease is following, nasal MRSA is negative -Repeat blood culture negative -Continue with Meropenem through -Ordered for Midline Respiratory failure 08/13/2018 04/05/2019 HIT (heparin-induced thrombocytopenia) 9 04/05/2019 SANTANA (acute kidney injury) 08/05/20182018 Last Assessment & Plan: -AKD developed after her prolonged ICU course -Cr is improving -Daily BMP Nicotine use disorder, F17.2 07/19/2018 ARDS (adult respiratory distress syndrome) 07/1604/05/2019 Acute respiratory failure with hypoxia and hyper capnia 07/16/2018 04/05/2019 Pneumonia of both lower lobes due to infectious organism 07/16/2018 04/05/2019 Septic shock 07/16/2018 04/05/2019 Acute encephalopathy 07/16/2018 08/23/2018 Encounter for sterilization 03/11/201702/21 Overview: Risks, benefits and alternatives to sterilization have been discussed with the patient. She declines reversible options including LARC. She understands sterilization is permanent, irreversible, risks of failure, regret and ectopic. In addition she understands there are surgical risks as well. Her questions were answered to her satisfaction and consent was signed. Leatha Kumar MD Gestational diabetes mellitus, class A1 11/18/1907/07/2017 Overview: November 17, 2016 Abnormal 3 hr at 11w. Leatha Kumar MD Unplanned 11/03/2016 07/07/2017 Overview: 11/03/2016This is a surprise . Patient states she got pregnanct on oral contraceptives.The FOB is the father of her previous son. Patient desires PPTL. TKRN Obesity in 11/03/2016 07/07/2017 Overview: 11/03/2016She is obese. Will plan on GCT @ [facility]. TKRN Tobacco use during , antepartum 017 07/07/2017 Overview: 11/03/2016Pt smokes 1/2 pack a day of cigarettes. Discussed risks of smoking during . Advised pt to quit.TKRN Nausea/vomiting in 11/03/2016 Overview: 11/03/2016 Patient is complaining of nausea and occasional vomiting in . Dietary considerations discussed. Patient has tried Vitamin B6 and unisom with little relief. Dr Kumar wrote order for Phenergan. Advised patient to call/come in if she is unable to keep any food or fluids down in a 24-hour period. TKRN Abnormal glucose complicating 10/13/19 15 11/17/2016 Overview: November 08, 2016 Needs 3 hr. Leatha Kumar MD Supervision of other high-risk 015 01/22/2015 Overview: July 03, 2014 elevated WBC at [facility], had infection at that time, trending down. monitor. Leatha Kumar MD Request for sterilization 06/30/20142015 Overview: June 30, 2014 Desires tubal. VALENTIN given. Leatha Kumar MD October 11, 2014 Signed tubal papers. Leatha Kumar MD Anxiety in , antepartum 05/26/2014 01/22/2015 Overview: 05/26/14 - discussed R/B/A & use of medication in , she will cont effexor, stop ativan - KJ Poor support system complicating 05/2601/22/2015 Overview: 05/26/14 - patient is from her - KJ Tobacco use during 05/26/201404/2014 Overview: 05/26/14 - advised on risks & cessation - KJ Obesity complicating 05/26/2014 1 03/24/2014 Overview: 05/26/14 - early GCT today - KJ Generalized abdominal pain 02/21/201307/03 Pelvic pain complicating 02/21/2013 07/05/2013 Frequency of urination 02/21/2013 5 NO SHOW 01/12/2013 07/03/2014 Tobacco abuse 04/12/2012 07/03/2014 Obesity (BMI 30.0-34.9) 04/12/2012 08/20/19 18 Rebound headache 04/12/2012 01/22/2015 Unspecified high-risk 06/19/2008 04/12/2012 Supervision of other normal 12/07/2007 06/19/2008 Other threatened labor, unspecified as to episod e of care 11/29/2005 01/14/2006 Supervision of other normal 08/07/2005 01/14/2006 documented as of this encounter (statuses as of 03/07/2022) [facility] History of Past illness Narrative* Problem Noted Date Resolved Date Severe sepsis 09/11/2018 04/05/2019 Last Assessment & Plan: -The patient was tachycardic, tachypnic, febrile, WBC 31 and LA 1.6. -S/p fluid resuscitation, BP is stable -likely 2/2 HCP, CT chest showed Interval decreased cavitary component and size of right upper lobe pulmonary opacities. Interval new cavitation involving left lower lobe opacities and Interval new region of consolidation within the right lower lobe, possible atelectasis/inflammation/infection. -BC is negative, UC is showing Klebsiella/Enterobacter (UA is clean and the patient is asymptomatic, less likely UTI) -Infectious disease is following, nasal MRSA is negative -Repeat blood culture negative -Continue with Meropenem through -Ordered for Midline Respiratory failure 08/13/2018 04/05/2019 HIT (heparin-induced thrombocytopenia) 9 04/05/2019 SANTANA (acute kidney injury) 08/05/20182018 Last Assessment & Plan: -AKD developed after her prolonged ICU course -Cr is improving -Daily BMP Nicotine use disorder, F17.2 07/19/2018 ARDS (adult respiratory distress syndrome) 07/1604/05/2019 Acute respiratory failure with hypoxia and hyper capnia 07/16/2018 04/05/2019 Pneumonia of both lower lobes due to infectious organism 07/16/2018 04/05/2019 Septic shock 07/16/2018 04/05/2019 Acute encephalopathy 07/16/2018 08/23/2018 Encounter for sterilization 03/11/201702/21 Overview: Risks, benefits and alternatives to sterilization have been discussed with the patient. She declines reversible options including LARC. She understands sterilization is permanent, irreversible, risks of failure, regret and ectopic. In addition she understands there are surgical risks as well. Her questions were answered to her satisfaction and consent was signed. Leatha Kumar MD Gestational diabetes mellitus, class A1 08/28/20 17 07/07/2017 Overview: November 17, 2016 Abnormal 3 hr at 11w. Leatha Kumar MD Unplanned 11/03/2016 07/07/2017 Overview: 11/03/2016This is a surprise . Patient states she got pregnanct on oral contraceptives.The FOB is the father of her previous son. Patient desires PPTL. TKRN Obesity in 11/03/2016 07/07/2017 Overview: 11/03/2016She is obese. Will plan on GCT @ [facility]. TKRN Tobacco use during , antepartum 017 07/07/2017 Overview: 11/03/2016Pt smokes 1/2 pack a day of cigarettes. Discussed risks of smoking during . Advised pt to quit.TKRN Nausea/vomiting in 11/03/2016 Overview: 11/03/2016 Patient is complaining of nausea and occasional vomiting in . Dietary considerations discussed. Patient has tried Vitamin B6 and unisom with little relief. Dr Kumar wrote order for Phenergan. Advised patient to call/come in if she is unable to keep any food or fluids down in a 24-hour period. TKRN Abnormal glucose complicating 10/13/19 15 11/17/2016 Overview: November 08, 2016 Needs 3 hr. Leatha Kumar MD Supervision of other high-risk 015 01/22/2015 Overview: July 03, 2014 elevated WBC at [facility], had infection at that time, trending down. monitor. Leatha Kumar MD Request for sterilization 06/30/20142015 Overview: June 30, 2014 Desires tubal. VALENTIN given. Leatha Kumar MD October 11, 2014 Signed tubal papers. Leatha Kumar MD Anxiety in , antepartum 05/26/2014 01/22/2015 Overview: 05/26/14 - discussed R/B/A & use of medication in , she will cont effexor, stop ativan - KJ Poor support system complicating 05/2601/22/2015 Overview: 05/26/14 - patient is from her - KJ Tobacco use during 05/26/201404/2014 Overview: 05/26/14 - advised on risks & cessation - KJ Obesity complicating 05/26/2014 1 03/24/2014 Overview: 05/26/14 - early GCT today - KJ Generalized abdominal pain 02/21/201307/03 Pelvic pain complicating 02/21/2013 07/05/2013 Frequency of urination 02/21/2013 5 NO SHOW 01/12/2013 07/03/2014 Tobacco abuse 04/12/2012 07/03/2014 Obesity (BMI 30.0-34.9) 04/12/2012 08/20/19 18 Rebound headache 04/12/2012 01/22/2015 Unspecified high-risk 06/19/2008 04/12/2012 Supervision of other normal 12/07/2007 06/19/2008 Other threatened labor, unspecified as to episod e of care 11/29/2005 01/14/2006 Supervision of other normal 08/07/2005 01/14/2006 documented as of this encounter (statuses as of 03/27/2022) [facility] History of Past illness Narrative* Problem Noted Date Resolved Date Severe sepsis 09/11/2018 04/05/2019 Last Assessment & Plan: -The patient was tachycardic, tachypnic, febrile, WBC 31 and LA 1.6. -S/p fluid resuscitation, BP is stable -likely 2/2 HCP, CT chest showed Interval decreased cavitary component and size of right upper lobe pulmonary opacities. Interval new cavitation involving left lower lobe opacities and Interval new region of consolidation within the right lower lobe, possible atelectasis/inflammation/infection. -BC is negative, UC is showing Klebsiella/Enterobacter (UA is clean and the patient is asymptomatic, less likely UTI) -Infectious disease is following, nasal MRSA is negative -Repeat blood culture negative -Continue with Meropenem through -Ordered for Midline Respiratory failure 08/13/2018 04/05/2019 HIT (heparin-induced thrombocytopenia) 9 04/05/2019 SANTANA (acute kidney injury) 08/05/20182018 Last Assessment & Plan: -AKD developed after her prolonged ICU course -Cr is improving -Daily BMP Nicotine use disorder, F17.2 07/19/2018 ARDS (adult respiratory distress syndrome) 07/1604/05/2019 Acute respiratory failure with hypoxia and hyper capnia 07/16/2018 04/05/2019 Pneumonia of both lower lobes due to infectious organism 07/16/2018 04/05/2019 Septic shock 07/16/2018 04/05/2019 Acute encephalopathy 07/16/2018 08/23/2018 Encounter for sterilization 03/11/201702/21 Overview: Risks, benefits and alternatives to sterilization have been discussed with the patient. She declines reversible options including LARC. She understands sterilization is permanent, irreversible, risks of failure, regret and ectopic. In addition she understands there are surgical risks as well. Her questions were answered to her satisfaction and consent was signed. Leatha Kumar MD Gestational diabetes mellitus, class A1 11/18/19 17 07/07/2017 Overview: November 17, 2016 Abnormal 3 hr at 11w. Leatha Kumar MD Unplanned 11/03/2016 07/07/2017 Overview: 11/03/2016This is a surprise . Patient states she got pregnanct on oral contraceptives.The FOB is the father of her previous son. Patient desires PPTL. TKRN Obesity in 11/03/2016 07/07/2017 Overview: 11/03/2016She is obese. Will plan on GCT @ [facility]. TKRN Tobacco use during , antepartum 017 07/07/2017 Overview: 11/03/2016Pt smokes 1/2 pack a day of cigarettes. Discussed risks of smoking during . Advised pt to quit.TKRN Nausea/vomiting in 11/03/2016 Overview: 11/03/2016 Patient is complaining of nausea and occasional vomiting in . Dietary considerations discussed. Patient has tried Vitamin B6 and unisom with little relief. Dr Kumar wrote order for Phenergan. Advised patient to call/come in if she is unable to keep any food or fluids down in a 24-hour period. TKRN Abnormal glucose complicating 10/13/19 15 11/17/2016 Overview: November 08, 2016 Needs 3 hr. Leatha Kumar MD Supervision of other high-risk 015 01/22/2015 Overview: July 03, 2014 elevated WBC at [facility], had infection at that time, trending down. monitor. Laetha Kumar MD Request for sterilization 06/30/20142015 Overview: June 30, 2014 Desires tubal. VALENTIN given. Leatha Kumar MD October 11, 2014 Signed tubal papers. Leatha Kumar MD Anxiety in , antepartum 05/26/2014 01/22/2015 Overview: 05/26/14 - discussed R/B/A & use of medication in , she will cont effexor, stop ativan - KJ Poor support system complicating 05/2601/22/2015 Overview: 05/26/14 - patient is from her - KJ Tobacco use during 05/26/201404/2014 Overview: 05/26/14 - advised on risks & cessation - KJ Obesity complicating 05/26/2014 1 03/24/2014 Overview: 05/26/14 - early GCT today - KJ Generalized abdominal pain 02/21/201307/03 Pelvic pain complicating 02/21/2013 07/05/2013 Frequency of urination 02/21/2013 5 NO SHOW 01/12/2013 07/03/2014 Tobacco abuse 04/12/2012 07/03/2014 Obesity (BMI 30.0-34.9) 04/12/2012 08/20/19 18 Rebound headache 04/12/2012 01/22/2015 Unspecified high-risk 06/19/2008 04/12/2012 Supervision of other normal 12/07/2007 06/19/2008 Other threatened labor, unspecified as to episod e of care 11/29/2005 01/14/2006 Supervision of other normal 08/07/2005 01/14/2006 documented as of this encounter (statuses as of 03/27/2022) [facility] History of Past illness Narrative* Problem Noted Date Resolved Date Severe sepsis 09/11/2018 04/05/2019 Last Assessment & Plan: -The patient was tachycardic, tachypnic, febrile, WBC 31 and LA 1.6. -S/p fluid resuscitation, BP is stable -likely 2/2 HCP, CT chest showed Interval decreased cavitary component and size of right upper lobe pulmonary opacities. Interval new cavitation involving left lower lobe opacities and Interval new region of consolidation within the right lower lobe, possible atelectasis/inflammation/infection. -BC is negative, UC is showing Klebsiella/Enterobacter (UA is clean and the patient is asymptomatic, less likely UTI) -Infectious disease is following, nasal MRSA is negative -Repeat blood culture negative -Continue with Meropenem through -Ordered for Midline Respiratory failure 08/13/2018 04/05/2019 HIT (heparin-induced thrombocytopenia) 9 04/05/2019 SANTANA (acute kidney injury) 08/05/20182018 Last Assessment & Plan: -AKD developed after her prolonged ICU course -Cr is improving -Daily BMP Nicotine use disorder, F17.2 07/19/2018 ARDS (adult respiratory distress syndrome) 07/1604/05/2019 Acute respiratory failure with hypoxia and hyper capnia 07/16/2018 04/05/2019 Pneumonia of both lower lobes due to infectious organism 07/16/2018 04/05/2019 Septic shock 07/16/2018 04/05/2019 Acute encephalopathy 07/16/2018 08/23/2018 Encounter for sterilization 03/11/201702/21 Overview: Risks, benefits and alternatives to sterilization have been discussed with the patient. She declines reversible options including LARC. She understands sterilization is permanent, irreversible, risks of failure, regret and ectopic. In addition she understands there are surgical risks as well. Her questions were answered to her satisfaction and consent was signed. Leatha Kumar MD Gestational diabetes mellitus, class A1 11/18/19 17 07/07/2017 Overview: November 17, 2016 Abnormal 3 hr at 11w. Leatha Kumar MD Unplanned 11/03/2016 07/07/2017 Overview: 11/03/2016This is a surprise . Patient states she got pregnanct on oral contraceptives.The FOB is the father of her previous son. Patient desires PPTL. TKRN Obesity in 11/03/2016 07/07/2017 Overview: 11/03/2016She is obese. Will plan on GCT @ [facility]. TKRN Tobacco use during , antepartum 017 07/07/2017 Overview: 11/03/2016Pt smokes 1/2 pack a day of cigarettes. Discussed risks of smoking during . Advised pt to quit.TKRN Nausea/vomiting in 11/03/2016 Overview: 11/03/2016 Patient is complaining of nausea and occasional vomiting in . Dietary considerations discussed. Patient has tried Vitamin B6 and unisom with little relief. Dr Kumar wrote order for Phenergan. Advised patient to call/come in if she is unable to keep any food or fluids down in a 24-hour period. TKRN Abnormal glucose complicating 10/13/19 15 11/17/2016 Overview: November 08, 2016 Needs 3 hr. Leatha Kumar MD Supervision of other high-risk 015 01/22/2015 Overview: July 03, 2014 elevated WBC at [facility], had infection at that time, trending down. monitor. Leatha Kumar MD Request for sterilization 06/30/20142015 Overview: June 30, 2014 Desires tubal. VALENTIN given. Leatha Kumar MD October 11, 2014 Signed tubal papers. Leatha Kumar MD Anxiety in , antepartum 05/26/2014 01/22/2015 Overview: 05/26/14 - discussed R/B/A & use of medication in , she will cont effexor, stop ativan - KJ Poor support system complicating 05/2601/22/2015 Overview: 05/26/14 - patient is from her - KJ Tobacco use during 05/26/201404/2014 Overview: 05/26/14 - advised on risks & cessation - KJ Obesity complicating 05/26/2014 1 03/24/2014 Overview: 05/26/14 - early GCT today - KJ Generalized abdominal pain 02/21/201307/03 Pelvic pain complicating 02/21/2013 07/05/2013 Frequency of urination 02/21/2013 5 NO SHOW 01/12/2013 07/03/2014 Tobacco abuse 04/12/2012 07/03/2014 Obesity (BMI 30.0-34.9) 04/12/2012 08/20/19 18 Rebound headache 04/12/2012 01/22/2015 Unspecified high-risk 06/19/2008 04/12/2012 Supervision of other normal 12/07/2007 06/19/2008 Other threatened labor, unspecified as to episod e of care 11/29/2005 01/14/2006 Supervision of other normal 08/07/2005 01/14/2006 documented as of this encounter (statuses as of 03/27/2022) [facility] of Past illness Narrative* Problem Noted Date Resolved Date Severe sepsis 09/11/2018 04/05/2019 Last Assessment & Plan: -The patient was tachycardic, tachypnic, febrile, WBC 31 and LA 1.6. -S/p fluid resuscitation, BP is stable -likely 2/2 HCP, CT chest showed Interval decreased cavitary component and size of right upper lobe pulmonary opacities. Interval new cavitation involving left lower lobe opacities and Interval new region of consolidation within the right lower lobe, possible atelectasis/inflammation/infection. -BC is negative, UC is showing Klebsiella/Enterobacter (UA is clean and the patient is asymptomatic, less likely UTI) -Infectious disease is following, nasal MRSA is negative -Repeat blood culture negative -Continue with Meropenem through -Ordered for Midline Respiratory failure 08/13/2018 04/05/2019 HIT (heparin-induced thrombocytopenia) 9 04/05/2019 SANTANA (acute kidney injury) 08/05/20182018 Last Assessment & Plan: -AKD developed after her prolonged ICU course -Cr is improving -Daily BMP Nicotine use disorder, F17.2 07/19/2018 ARDS (adult respiratory distress syndrome) 07/1604/05/2019 Acute respiratory failure with hypoxia and hyper capnia 07/16/2018 04/05/2019 Pneumonia of both lower lobes due to infectious organism 07/16/2018 04/05/2019 Septic shock 07/16/2018 04/05/2019 Acute encephalopathy 07/16/2018 08/23/2018 Encounter for sterilization 03/11/201702/21 Overview: Risks, benefits and alternatives to sterilization have been discussed with the patient. She declines reversible options including LARC. She understands sterilization is permanent, irreversible, risks of failure, regret and ectopic. In addition she understands there are surgical risks as well. Her questions were answered to her satisfaction and consent was signed. Leatha Kumar MD Gestational diabetes mellitus, class A1 11/18/19 17 07/07/2017 Overview: November 17, 2016 Abnormal 3 hr at 11w. Leatha Kumar MD Unplanned 11/03/2016 07/07/2017 Overview: 11/03/2016This is a surprise . Patient states she got pregnanct on oral contraceptives.The FOB is the father of her previous son. Patient desires PPTL. TKRN Obesity in 11/03/2016 07/07/2017 Overview: 11/03/2016She is obese. Will plan on GCT @ [facility]. TKRN Tobacco use during , antepartum 017 07/07/2017 Overview: 11/03/2016Pt smokes 1/2 pack a day of cigarettes. Discussed risks of smoking during . Advised pt to quit.TKRN Nausea/vomiting in 11/03/2016 Overview: 11/03/2016 Patient is complaining of nausea and occasional vomiting in . Dietary considerations discussed. Patient has tried Vitamin B6 and unisom with little relief. Dr Kumar wrote order for Phenergan. Advised patient to call/come in if she is unable to keep any food or fluids down in a 24-hour period. TKRN Abnormal glucose complicating 10/13/19 15 11/17/2016 Overview: November 08, 2016 Needs 3 hr. Leatha Kumar MD Supervision of other high-risk 015 01/22/2015 Overview: July 03, 2014 elevated WBC at [facility], had infection at that time, trending down. monitor. Leatha Kumar MD Request for sterilization 06/30/20142015 Overview: June 30, 2014 Desires tubal. VALENTIN given. Leatha Kumar MD October 11, 2014 Signed tubal papers. Leatha Kumar MD Anxiety in , antepartum 05/26/2014 01/22/2015 Overview: 05/26/14 - discussed R/B/A & use of medication in , she will cont effexor, stop ativan - KJ Poor support system complicating 05/2601/22/2015 Overview: 05/26/14 - patient is from her - KJ Tobacco use during 05/26/201404/2014 Overview: 05/26/14 - advised on risks & cessation - KJ Obesity complicating 05/26/2014 1 03/24/2014 Overview: 05/26/14 - early GCT today - KJ Generalized abdominal pain 02/21/201307/03 Pelvic pain complicating 02/21/2013 07/05/2013 Frequency of urination 02/21/2013 5 NO SHOW 01/12/2013 07/03/2014 Tobacco abuse 04/12/2012 07/03/2014 Obesity (BMI 30.0-34.9) 04/12/2012 08/20/19 18 Rebound headache 04/12/2012 01/22/2015 Unspecified high-risk 06/19/2008 04/12/2012 Supervision of other normal 12/07/2007 06/19/2008 Other threatened labor, unspecified as to episod e of care 11/29/2005 01/14/2006 Supervision of other normal 08/07/2005 01/14/2006 documented as of this encounter (statuses as of 04/04/2022) [facility] History of Past illness Narrative* Problem Noted Date Resolved Date Severe sepsis 09/11/2018 04/05/2019 Last Assessment & Plan: -The patient was tachycardic, tachypnic, febrile, WBC 31 and LA 1.6. -S/p fluid resuscitation, BP is stable -likely 2/2 HCP, CT chest showed Interval decreased cavitary component and size of right upper lobe pulmonary opacities. Interval new cavitation involving left lower lobe opacities and Interval new region of consolidation within the right lower lobe, possible atelectasis/inflammation/infection. -BC is negative, UC is showing Klebsiella/Enterobacter (UA is clean and the patient is asymptomatic, less likely UTI) -Infectious disease is following, nasal MRSA is negative -Repeat blood culture negative -Continue with Meropenem through -Ordered for Midline Respiratory failure 08/13/2018 04/05/2019 HIT (heparin-induced thrombocytopenia) 9 04/05/2019 SANTANA (acute kidney injury) 08/05/20182018 Last Assessment & Plan: -AKD developed after her prolonged ICU course -Cr is improving -Daily BMP Nicotine use disorder, F17.2 07/19/2018 ARDS (adult respiratory distress syndrome) 07/1604/05/2019 Acute respiratory failure with hypoxia and hyper capnia 07/16/2018 04/05/2019 Pneumonia of both lower lobes due to infectious organism 07/16/2018 04/05/2019 Septic shock 07/16/2018 04/05/2019 Acute encephalopathy 07/16/2018 08/23/2018 Encounter for sterilization 03/11/201702/21 Overview: Risks, benefits and alternatives to sterilization have been discussed with the patient. She declines reversible options including LARC. She understands sterilization is permanent, irreversible, risks of failure, regret and ectopic. In addition she understands there are surgical risks as well. Her questions were answered to her satisfaction and consent was signed. Leatha Kumar MD Gestational diabetes mellitus, class A1 11/18/1907/07/2017 Overview: November 17, 2016 Abnormal 3 hr at 11w. Leatha Kumar MD Unplanned 11/03/2016 07/07/2017 Overview: 11/03/2016This is a surprise . Patient states she got pregnanct on oral contraceptives.The FOB is the father of her previous son. Patient desires PPTL. TKRN Obesity in 11/03/2016 07/07/2017 Overview: 11/03/2016She is obese. Will plan on GCT @ [facility]. TKRN Tobacco use during , antepartum 017 07/07/2017 Overview: 11/03/2016Pt smokes 1/2 pack a day of cigarettes. Discussed risks of smoking during . Advised pt to quit.TKRN Nausea/vomiting in 11/03/2016 Overview: 11/03/2016 Patient is complaining of nausea and occasional vomiting in . Dietary considerations discussed. Patient has tried Vitamin B6 and unisom with little relief. Dr Kumar wrote order for Phenergan. Advised patient to call/come in if she is unable to keep any food or fluids down in a 24-hour period. TKRN Abnormal glucose complicating 10/13/19 15 11/17/2016 Overview: November 08, 2016 Needs 3 hr. Leatha Kumar MD Supervision of other high-risk 015 01/22/2015 Overview: July 03, 2014 elevated WBC at [facility], had infection at that time, trending down. monitor. Leatha Kumar MD Request for sterilization 06/30/20142015 Overview: June 30, 2014 Desires tubal. VALENTIN given. Leatha Kumar MD October 11, 2014 Signed tubal papers. Leatha Kumar MD Anxiety in , antepartum 05/26/2014 01/22/2015 Overview: 05/26/14 - discussed R/B/A & use of medication in , she will cont effexor, stop ativan - KJ Poor support system complicating 05/2601/22/2015 Overview: 05/26/14 - patient is from her - KJ Tobacco use during 05/26/201404/2014 Overview: 05/26/14 - advised on risks & cessation - KJ Obesity complicating 05/26/2014 1 03/24/2014 Overview: 05/26/14 - early GCT today - KJ Generalized abdominal pain 02/21/201307/03 Pelvic pain complicating 02/21/2013 07/05/2013 Frequency of urination 02/21/2013 5 NO SHOW 01/12/2013 07/03/2014 Tobacco abuse 04/12/2012 07/03/2014 Obesity (BMI 30.0-34.9) 04/12/2012 08/20/19 18 Rebound headache 04/12/2012 01/22/2015 Unspecified high-risk 06/19/2008 04/12/2012 Supervision of other normal 12/07/2007 06/19/2008 Other threatened labor, unspecified as to episod e of care 11/29/2005 01/14/2006 Supervision of other normal 08/07/2005 01/14/2006 documented as of this encounter (statuses as of 04/15/2022) [facility] History of Past illness Narrative* Problem Noted Date Resolved Date Severe sepsis 09/11/2018 04/05/2019 Last Assessment & Plan: -The patient was tachycardic, tachypnic, febrile, WBC 31 and LA 1.6. -S/p fluid resuscitation, BP is stable -likely 2/2 HCP, CT chest showed Interval decreased cavitary component and size of right upper lobe pulmonary opacities. Interval new cavitation involving left lower lobe opacities and Interval new region of consolidation within the right lower lobe, possible atelectasis/inflammation/infection. -BC is negative, UC is showing Klebsiella/Enterobacter (UA is clean and the patient is asymptomatic, less likely UTI) -Infectious disease is following, nasal MRSA is negative -Repeat blood culture negative -Continue with Meropenem through -Ordered for Midline Respiratory failure 08/13/2018 04/05/2019 HIT (heparin-induced thrombocytopenia) 9 04/05/2019 SANTANA (acute kidney injury) 08/05/20182018 Last Assessment & Plan: -AKD developed after her prolonged ICU course -Cr is improving -Daily BMP Nicotine use disorder, F17.2 07/19/2018 ARDS (adult respiratory distress syndrome) 07/1604/05/2019 Acute respiratory failure with hypoxia and hyper capnia 07/16/2018 04/05/2019 Pneumonia of both lower lobes due to infectious organism 07/16/2018 04/05/2019 Septic shock 07/16/2018 04/05/2019 Acute encephalopathy 07/16/2018 08/23/2018 Encounter for sterilization 03/11/201702/21 Overview: Risks, benefits and alternatives to sterilization have been discussed with the patient. She declines reversible options including LARC. She understands sterilization is permanent, irreversible, risks of failure, regret and ectopic. In addition she understands there are surgical risks as well. Her questions were answered to her satisfaction and consent was signed. Leatha Kumar MD Gestational diabetes mellitus, class A1 11/18/19 17 07/07/2017 Overview: November 17, 2016 Abnormal 3 hr at 11w. Leatha Kumar MD Unplanned 11/03/2016 07/07/2017 Overview: 11/03/2016This is a surprise . Patient states she got pregnanct on oral contraceptives.The FOB is the father of her previous son. Patient desires PPTL. TKRN Obesity in 11/03/2016 07/07/2017 Overview: 11/03/2016She is obese. Will plan on GCT @ [facility]. TKRN Tobacco use during , antepartum 017 07/07/2017 Overview: 11/03/2016Pt smokes 1/2 pack a day of cigarettes. Discussed risks of smoking during . Advised pt to quit.TKRN Nausea/vomiting in 11/03/2016 Overview: 11/03/2016 Patient is complaining of nausea and occasional vomiting in . Dietary considerations discussed. Patient has tried Vitamin B6 and unisom with little relief. Dr Kumar wrote order for Phenergan. Advised patient to call/come in if she is unable to keep any food or fluids down in a 24-hour period. TKRN Abnormal glucose complicating 10/13/19 15 11/17/2016 Overview: November 08, 2016 Needs 3 hr. Leatha Kumar MD Supervision of other high-risk 015 01/22/2015 Overview: July 03, 2014 elevated WBC at [facility], had infection at that time, trending down. monitor. Leatha Kumar MD Request for sterilization 06/30/20142015 Overview: June 30, 2014 Desires tubal. VALENTIN given. Leatha Kumar MD October 11, 2014 Signed tubal papers. Leatha Kumar MD Anxiety in , antepartum 05/26/2014 01/22/2015 Overview: 05/26/14 - discussed R/B/A & use of medication in , she will cont effexor, stop ativan - KJ Poor support system complicating 05/2601/22/2015 Overview: 05/26/14 - patient is from her - KJ Tobacco use during 05/26/201404/2014 Overview: 05/26/14 - advised on risks & cessation - KJ Obesity complicating 05/26/2014 1 03/24/2014 Overview: 05/26/14 - early GCT today - KJ Generalized abdominal pain 02/21/201307/03 Pelvic pain complicating 02/21/2013 07/05/2013 Frequency of urination 02/21/2013 5 NO SHOW 01/12/2013 07/03/2014 Tobacco abuse 04/12/2012 07/03/2014 Obesity (BMI 30.0-34.9) 04/12/2012 08/20/19 18 Rebound headache 04/12/2012 01/22/2015 Unspecified high-risk 06/19/2008 04/12/2012 Supervision of other normal 12/07/2007 06/19/2008 Other threatened labor, unspecified as to episod e of care 11/29/2005 01/14/2006 Supervision of other normal 08/07/2005 01/14/2006 documented as of this encounter (statuses as of 04/17/2022) [facility] History of Past illness Narrative* Problem Noted Date Resolved Date Severe sepsis 09/11/2018 04/05/2019 Last Assessment & Plan: -The patient was tachycardic, tachypnic, febrile, WBC 31 and LA 1.6. -S/p fluid resuscitation, BP is stable -likely 2/2 HCP, CT chest showed Interval decreased cavitary component and size of right upper lobe pulmonary opacities. Interval new cavitation involving left lower lobe opacities and Interval new region of consolidation within the right lower lobe, possible atelectasis/inflammation/infection. -BC is negative, UC is showing Klebsiella/Enterobacter (UA is clean and the patient is asymptomatic, less likely UTI) -Infectious disease is following, nasal MRSA is negative -Repeat blood culture negative -Continue with Meropenem through -Ordered for Midline Respiratory failure 08/13/2018 04/05/2019 HIT (heparin-induced thrombocytopenia) 9 04/05/2019 SANTANA (acute kidney injury) 08/05/20182018 Last Assessment & Plan: -AKD developed after her prolonged ICU course -Cr is improving -Daily BMP Nicotine use disorder, F17.2 07/19/2018 ARDS (adult respiratory distress syndrome) 07/1604/05/2019 Acute respiratory failure with hypoxia and hyper capnia 07/16/2018 04/05/2019 Pneumonia of both lower lobes due to infectious organism 07/16/2018 04/05/2019 Septic shock 07/16/2018 04/05/2019 Acute encephalopathy 07/16/2018 08/23/2018 Encounter for sterilization 03/11/201702/21 Overview: Risks, benefits and alternatives to sterilization have been discussed with the patient. She declines reversible options including LARC. She understands sterilization is permanent, irreversible, risks of failure, regret and ectopic. In addition she understands there are surgical risks as well. Her questions were answered to her satisfaction and consent was signed. Leatha Kumar MD Gestational diabetes mellitus, class A1 11/18/19 17 07/07/2017 Overview: November 17, 2016 Abnormal 3 hr at 11w. Leatha Kumar MD Unplanned 11/03/2016 07/07/2017 Overview: 11/03/2016This is a surprise . Patient states she got pregnanct on oral contraceptives.The FOB is the father of her previous son. Patient desires PPTL. TKRN Obesity in 11/03/2016 07/07/2017 Overview: 11/03/2016She is obese. Will plan on GCT @ [facility]. TKRN Tobacco use during , antepartum 017 07/07/2017 Overview: 11/03/2016Pt smokes 1/2 pack a day of cigarettes. Discussed risks of smoking during . Advised pt to quit.TKRN Nausea/vomiting in 11/03/2016 Overview: 11/03/2016 Patient is complaining of nausea and occasional vomiting in . Dietary considerations discussed. Patient has tried Vitamin B6 and unisom with little relief. Dr Kumar wrote order for Phenergan. Advised patient to call/come in if she is unable to keep any food or fluids down in a 24-hour period. TKRN Abnormal glucose complicating 10/13/19 15 11/17/2016 Overview: November 08, 2016 Needs 3 hr. Leatha Kumar MD Supervision of other high-risk 015 01/22/2015 Overview: July 03, 2014 elevated WBC at [facility], had infection at that time, trending down. monitor. Leatha Kumar MD Request for sterilization 06/30/20142015 Overview: June 30, 2014 Desires tubal. VALENTIN given. Leatha Kumar MD October 11, 2014 Signed tubal papers. Leatha Kumar MD Anxiety in , antepartum 05/26/2014 01/22/2015 Overview: 05/26/14 - discussed R/B/A & use of medication in , she will cont effexor, stop ativan - KJ Poor support system complicating 05/2601/22/2015 Overview: 05/26/14 - patient is from her - KJ Tobacco use during 05/26/201404/2014 Overview: 05/26/14 - advised on risks & cessation - KJ Obesity complicating 05/26/2014 1 03/24/2014 Overview: 05/26/14 - early GCT today - KJ Generalized abdominal pain 02/21/201307/03 Pelvic pain complicating 02/21/2013 07/05/2013 Frequency of urination 02/21/2013 5 NO SHOW 01/12/2013 07/03/2014 Tobacco abuse 04/12/2012 07/03/2014 Obesity (BMI 30.0-34.9) 04/12/2012 08/20/19 18 Rebound headache 04/12/2012 01/22/2015 Unspecified high-risk 06/19/2008 04/12/2012 Supervision of other normal 12/07/2007 06/19/2008 Other threatened labor, unspecified as to episod e of care 11/29/2005 01/14/2006 Supervision of other normal 08/07/2005 01/14/2006 documented as of this encounter (statuses as of 04/18/2022) [facility] History of Past illness Narrative* Problem Noted Date Resolved Date Severe sepsis 09/11/2018 04/05/2019 Last Assessment & Plan: -The patient was tachycardic, tachypnic, febrile, WBC 31 and LA 1.6. -S/p fluid resuscitation, BP is stable -likely 2/2 HCP, CT chest showed Interval decreased cavitary component and size of right upper lobe pulmonary opacities. Interval new cavitation involving left lower lobe opacities and Interval new region of consolidation within the right lower lobe, possible atelectasis/inflammation/infection. -BC is negative, UC is showing Klebsiella/Enterobacter (UA is clean and the patient is asymptomatic, less likely UTI) -Infectious disease is following, nasal MRSA is negative -Repeat blood culture negative -Continue with Meropenem through -Ordered for Midline Respiratory failure 08/13/2018 04/05/2019 HIT (heparin-induced thrombocytopenia) 9 04/05/2019 SANTANA (acute kidney injury) 08/05/20182018 Last Assessment & Plan: -AKD developed after her prolonged ICU course -Cr is improving -Daily BMP Nicotine use disorder, F17.2 07/19/2018 ARDS (adult respiratory distress syndrome) 07/1604/05/2019 Acute respiratory failure with hypoxia and hyper capnia 07/16/2018 04/05/2019 Pneumonia of both lower lobes due to infectious organism 07/16/2018 04/05/2019 Septic shock 07/16/2018 04/05/2019 Acute encephalopathy 07/16/2018 08/23/2018 Encounter for sterilization 03/11/201702/21 Overview: Risks, benefits and alternatives to sterilization have been discussed with the patient. She declines reversible options including LARC. She understands sterilization is permanent, irreversible, risks of failure, regret and ectopic. In addition she understands there are surgical risks as well. Her questions were answered to her satisfaction and consent was signed. Leatha Kumar MD Gestational diabetes mellitus, class A1 11/18/19 17 07/07/2017 Overview: November 17, 2016 Abnormal 3 hr at 11w. Leatha Kumar MD Unplanned 11/03/2016 07/07/2017 Overview: 11/03/2016This is a surprise . Patient states she got pregnanct on oral contraceptives.The FOB is the father of her previous son. Patient desires PPTL. TKRN Obesity in 11/03/2016 07/07/2017 Overview: 11/03/2016She is obese. Will plan on GCT @ [facility]. TKRN Tobacco use during , antepartum 017 07/07/2017 Overview: 11/03/2016Pt smokes 1/2 pack a day of cigarettes. Discussed risks of smoking during . Advised pt to quit.TKRN Nausea/vomiting in 11/03/2016 Overview: 11/03/2016 Patient is complaining of nausea and occasional vomiting in . Dietary considerations discussed. Patient has tried Vitamin B6 and unisom with little relief. Dr Kumar wrote order for Phenergan. Advised patient to call/come in if she is unable to keep any food or fluids down in a 24-hour period. TKRN Abnormal glucose complicating 10/13/19 15 11/17/2016 Overview: November 08, 2016 Needs 3 hr. Leatha Kumar MD Supervision of other high-risk 015 01/22/2015 Overview: July 03, 2014 elevated WBC at [facility], had infection at that time, trending down. monitor. Leatha Kumar MD Request for sterilization 06/30/20142015 Overview: June 30, 2014 Desires tubal. VALENTIN given. Leatha Kumar MD October 11, 2014 Signed tubal papers. Leatha Kumar MD Anxiety in , antepartum 05/26/2014 01/22/2015 Overview: 05/26/14 - discussed R/B/A & use of medication in , she will cont effexor, stop ativan - KJ Poor support system complicating 05/2601/22/2015 Overview: 05/26/14 - patient is from her - KJ Tobacco use during 05/26/201404/2014 Overview: 05/26/14 - advised on risks & cessation - KJ Obesity complicating 05/26/2014 1 03/24/2014 Overview: 05/26/14 - early GCT today - KJ Generalized abdominal pain 02/21/201307/03 Pelvic pain complicating 02/21/2013 07/05/2013 Frequency of urination 02/21/2013 5 NO SHOW 01/12/2013 07/03/2014 Tobacco abuse 04/12/2012 07/03/2014 Obesity (BMI 30.0-34.9) 04/12/2012 08/20/19 18 Rebound headache 04/12/2012 01/22/2015 Unspecified high-risk 06/19/2008 04/12/2012 Supervision of other normal 12/07/2007 06/19/2008 Other threatened labor, unspecified as to episod e of care 11/29/2005 01/14/2006 Supervision of other normal 08/07/2005 01/14/2006 documented as of this encounter (statuses as of 04/21/2022) [facility] History of Past illness Narrative* Problem Noted Date Resolved Date Severe sepsis 09/11/2018 04/05/2019 Last Assessment & Plan: -The patient was tachycardic, tachypnic, febrile, WBC 31 and LA 1.6. -S/p fluid resuscitation, BP is stable -likely 2/2 HCP, CT chest showed Interval decreased cavitary component and size of right upper lobe pulmonary opacities. Interval new cavitation involving left lower lobe opacities and Interval new region of consolidation within the right lower lobe, possible atelectasis/inflammation/infection. -BC is negative, UC is showing Klebsiella/Enterobacter (UA is clean and the patient is asymptomatic, less likely UTI) -Infectious disease is following, nasal MRSA is negative -Repeat blood culture negative -Continue with Meropenem through -Ordered for Midline Respiratory failure 08/13/2018 04/05/2019 HIT (heparin-induced thrombocytopenia) 9 04/05/2019 SANTANA (acute kidney injury) 08/05/20182018 Last Assessment & Plan: -AKD developed after her prolonged ICU course -Cr is improving -Daily BMP Nicotine use disorder, F17.2 07/19/2018 ARDS (adult respiratory distress syndrome) 07/1604/05/2019 Acute respiratory failure with hypoxia and hyper capnia 07/16/2018 04/05/2019 Pneumonia of both lower lobes due to infectious organism 07/16/2018 04/05/2019 Septic shock 07/16/2018 04/05/2019 Acute encephalopathy 07/16/2018 08/23/2018 Encounter for sterilization 03/11/201702/21 Overview: Risks, benefits and alternatives to sterilization have been discussed with the patient. She declines reversible options including LARC. She understands sterilization is permanent, irreversible, risks of failure, regret and ectopic. In addition she understands there are surgical risks as well. Her questions were answered to her satisfaction and consent was signed. Leatha Kumar MD Gestational diabetes mellitus, class A1 11/18/19 17 07/07/2017 Overview: November 17, 2016 Abnormal 3 hr at 11w. Leatha Kmuar MD Unplanned 11/03/2016 07/07/2017 Overview: 11/03/2016This is a surprise . Patient states she got pregnanct on oral contraceptives.The FOB is the father of her previous son. Patient desires PPTL. TKRN Obesity in 11/03/2016 07/07/2017 Overview: 11/03/2016She is obese. Will plan on GCT @ [facility]. TKRN Tobacco use during , antepartum 017 07/07/2017 Overview: 11/03/2016Pt smokes 1/2 pack a day of cigarettes. Discussed risks of smoking during . Advised pt to quit.TKRN Nausea/vomiting in 11/03/2016 Overview: 11/03/2016 Patient is complaining of nausea and occasional vomiting in . Dietary considerations discussed. Patient has tried Vitamin B6 and unisom with little relief. Dr Kumar wrote order for Phenergan. Advised patient to call/come in if she is unable to keep any food or fluids down in a 24-hour period. TKRN Abnormal glucose complicating 10/13/19 15 11/17/2016 Overview: November 08, 2016 Needs 3 hr. Leatha Kumar MD Supervision of other high-risk 015 01/22/2015 Overview: July 03, 2014 elevated WBC at [facility], had infection at that time, trending down. monitor. Leatha Kumar MD Request for sterilization 06/30/20142015 Overview: June 30, 2014 Desires tubal. VALENTIN given. Leatha Kumar MD October 11, 2014 Signed tubal papers. Leatha Kumar MD Anxiety in , antepartum 05/26/2014 01/22/2015 Overview: 05/26/14 - discussed R/B/A & use of medication in , she will cont effexor, stop ativan - KJ Poor support system complicating 05/2601/22/2015 Overview: 05/26/14 - patient is from her - KJ Tobacco use during 05/26/201404/2014 Overview: 05/26/14 - advised on risks & cessation - KJ Obesity complicating 05/26/2014 1 03/24/2014 Overview: 05/26/14 - early GCT today - KJ Generalized abdominal pain 02/21/201307/03 Pelvic pain complicating 02/21/2013 07/05/2013 Frequency of urination 02/21/2013 5 NO SHOW 01/12/2013 07/03/2014 Tobacco abuse 04/12/2012 07/03/2014 Obesity (BMI 30.0-34.9) 04/12/2012 08/20/19 18 Rebound headache 04/12/2012 01/22/2015 Unspecified high-risk 06/19/2008 04/12/2012 Supervision of other normal 12/07/2007 06/19/2008 Other threatened labor, unspecified as to episod e of care 11/29/2005 01/14/2006 Supervision of other normal 08/07/2005 01/14/2006 documented as of this encounter (statuses as of 04/21/2022) [facility] History of Past illness Narrative* Problem Noted Date Resolved Date Severe sepsis 09/11/2018 04/05/2019 Last Assessment & Plan: -The patient was tachycardic, tachypnic, febrile, WBC 31 and LA 1.6. -S/p fluid resuscitation, BP is stable -likely 2/2 HCP, CT chest showed Interval decreased cavitary component and size of right upper lobe pulmonary opacities. Interval new cavitation involving left lower lobe opacities and Interval new region of consolidation within the right lower lobe, possible atelectasis/inflammation/infection. -BC is negative, UC is showing Klebsiella/Enterobacter (UA is clean and the patient is asymptomatic, less likely UTI) -Infectious disease is following, nasal MRSA is negative -Repeat blood culture negative -Continue with Meropenem through -Ordered for Midline Respiratory failure 08/13/2018 04/05/2019 HIT (heparin-induced thrombocytopenia) 9 04/05/2019 SANTANA (acute kidney injury) 08/05/20182018 Last Assessment & Plan: -AKD developed after her prolonged ICU course -Cr is improving -Daily BMP Nicotine use disorder, F17.2 07/19/2018 ARDS (adult respiratory distress syndrome) 07/1604/05/2019 Acute respiratory failure with hypoxia and hyper capnia 07/16/2018 04/05/2019 Pneumonia of both lower lobes due to infectious organism 07/16/2018 04/05/2019 Septic shock 07/16/2018 04/05/2019 Acute encephalopathy 07/16/2018 08/23/2018 Encounter for sterilization 03/11/201702/21 Overview: Risks, benefits and alternatives to sterilization have been discussed with the patient. She declines reversible options including LARC. She understands sterilization is permanent, irreversible, risks of failure, regret and ectopic. In addition she understands there are surgical risks as well. Her questions were answered to her satisfaction and consent was signed. Leatha Kumar MD Gestational diabetes mellitus, class A1 11/18/19 17 07/07/2017 Overview: November 17, 2016 Abnormal 3 hr at 11w. Leatha Kumar MD Unplanned 11/03/2016 07/07/2017 Overview: 11/03/2016This is a surprise . Patient states she got pregnanct on oral contraceptives.The FOB is the father of her previous son. Patient desires PPTL. TKRN Obesity in 11/03/2016 07/07/2017 Overview: 11/03/2016She is obese. Will plan on GCT @ [facility]. TKRN Tobacco use during , antepartum 017 07/07/2017 Overview: 11/03/2016Pt smokes 1/2 pack a day of cigarettes. Discussed risks of smoking during . Advised pt to quit.TKRN Nausea/vomiting in 11/03/2016 Overview: 11/03/2016 Patient is complaining of nausea and occasional vomiting in . Dietary considerations discussed. Patient has tried Vitamin B6 and unisom with little relief. Dr Kumar wrote order for Phenergan. Advised patient to call/come in if she is unable to keep any food or fluids down in a 24-hour period. TKRN Abnormal glucose complicating 10/13/19 15 11/17/2016 Overview: November 08, 2016 Needs 3 hr. Leatha Kumar MD Supervision of other high-risk 015 01/22/2015 Overview: July 03, 2014 elevated WBC at [facility], had infection at that time, trending down. monitor. Leatha Kumar MD Request for sterilization 06/30/20142015 Overview: June 30, 2014 Desires tubal. VAELNTIN given. Leatha Kumar MD October 11, 2014 Signed tubal papers. Leatha Kumar MD Anxiety in , antepartum 05/26/2014 01/22/2015 Overview: 05/26/14 - discussed R/B/A & use of medication in , she will cont effexor, stop ativan - KJ Poor support system complicating 05/2601/22/2015 Overview: 05/26/14 - patient is from her - KJ Tobacco use during 05/26/201404/2014 Overview: 05/26/14 - advised on risks & cessation - KJ Obesity complicating 05/26/2014 1 03/24/2014 Overview: 05/26/14 - early GCT today - KJ Generalized abdominal pain 02/21/201307/03 Pelvic pain complicating 02/21/2013 07/05/2013 Frequency of urination 02/21/2013 5 NO SHOW 01/12/2013 07/03/2014 Tobacco abuse 04/12/2012 07/03/2014 Obesity (BMI 30.0-34.9) 04/12/2012 08/20/19 18 Rebound headache 04/12/2012 01/22/2015 Unspecified high-risk 06/19/2008 04/12/2012 Supervision of other normal 12/07/2007 06/19/2008 Other threatened labor, unspecified as to episod e of care 11/29/2005 01/14/2006 Supervision of other normal 08/07/2005 01/14/2006 documented as of this encounter (statuses as of 04/21/2022) [facility] History of Past illness Narrative* Problem Noted Date Resolved Date Severe sepsis 09/11/2018 04/05/2019 Last Assessment & Plan: -The patient was tachycardic, tachypnic, febrile, WBC 31 and LA 1.6. -S/p fluid resuscitation, BP is stable -likely 2/2 HCP, CT chest showed Interval decreased cavitary component and size of right upper lobe pulmonary opacities. Interval new cavitation involving left lower lobe opacities and Interval new region of consolidation within the right lower lobe, possible atelectasis/inflammation/infection. -BC is negative, UC is showing Klebsiella/Enterobacter (UA is clean and the patient is asymptomatic, less likely UTI) -Infectious disease is following, nasal MRSA is negative -Repeat blood culture negative -Continue with Meropenem through -Ordered for Midline Respiratory failure 08/13/2018 04/05/2019 HIT (heparin-induced thrombocytopenia) 9 04/05/2019 SANTANA (acute kidney injury) 08/05/20182018 Last Assessment & Plan: -AKD developed after her prolonged ICU course -Cr is improving -Daily BMP Nicotine use disorder, F17.2 07/19/2018 ARDS (adult respiratory distress syndrome) 07/1604/05/2019 Acute respiratory failure with hypoxia and hyper capnia 07/16/2018 04/05/2019 Pneumonia of both lower lobes due to infectious organism 07/16/2018 04/05/2019 Septic shock 07/16/2018 04/05/2019 Acute encephalopathy 07/16/2018 08/23/2018 Encounter for sterilization 03/11/201702/21 Overview: Risks, benefits and alternatives to sterilization have been discussed with the patient. She declines reversible options including LARC. She understands sterilization is permanent, irreversible, risks of failure, regret and ectopic. In addition she understands there are surgical risks as well. Her questions were answered to her satisfaction and consent was signed. Leatha Kumar MD Gestational diabetes mellitus, class A1 11/18/1907/07/2017 Overview: November 17, 2016 Abnormal 3 hr at 11w. Leatha Kumar MD Unplanned 11/03/2016 07/07/2017 Overview: 11/03/2016This is a surprise . Patient states she got pregnanct on oral contraceptives.The FOB is the father of her previous son. Patient desires PPTL. TKRN Obesity in 11/03/2016 07/07/2017 Overview: 11/03/2016She is obese. Will plan on GCT @ [facility]. TKRN Tobacco use during , antepartum 017 07/07/2017 Overview: 11/03/2016Pt smokes 1/2 pack a day of cigarettes. Discussed risks of smoking during . Advised pt to quit.TKRN Nausea/vomiting in 11/03/2016 Overview: 11/03/2016 Patient is complaining of nausea and occasional vomiting in . Dietary considerations discussed. Patient has tried Vitamin B6 and unisom with little relief. Dr Kumar wrote order for Phenergan. Advised patient to call/come in if she is unable to keep any food or fluids down in a 24-hour period. TKRN Abnormal glucose complicating 10/13/19 15 11/17/2016 Overview: November 08, 2016 Needs 3 hr. Leatha Kumar MD Supervision of other high-risk 015 01/22/2015 Overview: July 03, 2014 elevated WBC at [facility], had infection at that time, trending down. monitor. Leatha Kumar MD Request for sterilization 06/30/20142015 Overview: June 30, 2014 Desires tubal. VALENTIN given. Leatha Kumar MD October 11, 2014 Signed tubal papers. Leatha Kumar MD Anxiety in , antepartum 05/26/2014 01/22/2015 Overview: 05/26/14 - discussed R/B/A & use of medication in , she will cont effexor, stop ativan - KJ Poor support system complicating 05/2601/22/2015 Overview: 05/26/14 - patient is from her - KJ Tobacco use during 05/26/201404/2014 Overview: 05/26/14 - advised on risks & cessation - KJ Obesity complicating 05/26/2014 1 03/24/2014 Overview: 05/26/14 - early GCT today - KJ Generalized abdominal pain 02/21/201307/03 Pelvic pain complicating 02/21/2013 07/05/2013 Frequency of urination 02/21/2013 5 NO SHOW 01/12/2013 07/03/2014 Tobacco abuse 04/12/2012 07/03/2014 Obesity (BMI 30.0-34.9) 04/12/2012 08/20/19 18 Rebound headache 04/12/2012 01/22/2015 Unspecified high-risk 06/19/2008 04/12/2012 Supervision of other normal 12/07/2007 06/19/2008 Other threatened labor, unspecified as to episod e of care 11/29/2005 01/14/2006 Supervision of other normal 08/07/2005 01/14/2006 documented as of this encounter (statuses as of 04/22/2022) [facility] History of Past illness Narrative* Problem Noted Date Resolved Date Severe sepsis 09/11/2018 04/05/2019 Last Assessment & Plan: -The patient was tachycardic, tachypnic, febrile, WBC 31 and LA 1.6. -S/p fluid resuscitation, BP is stable -likely 2/2 HCP, CT chest showed Interval decreased cavitary component and size of right upper lobe pulmonary opacities. Interval new cavitation involving left lower lobe opacities and Interval new region of consolidation within the right lower lobe, possible atelectasis/inflammation/infection. -BC is negative, UC is showing Klebsiella/Enterobacter (UA is clean and the patient is asymptomatic, less likely UTI) -Infectious disease is following, nasal MRSA is negative -Repeat blood culture negative -Continue with Meropenem through -Ordered for Midline Respiratory failure 08/13/2018 04/05/2019 HIT (heparin-induced thrombocytopenia) 9 04/05/2019 SANTANA (acute kidney injury) 08/05/20182018 Last Assessment & Plan: -AKD developed after her prolonged ICU course -Cr is improving -Daily BMP Nicotine use disorder, F17.2 07/19/2018 ARDS (adult respiratory distress syndrome) 07/1604/05/2019 Acute respiratory failure with hypoxia and hyper capnia 07/16/2018 04/05/2019 Pneumonia of both lower lobes due to infectious organism 07/16/2018 04/05/2019 Septic shock 07/16/2018 04/05/2019 Acute encephalopathy 07/16/2018 08/23/2018 Encounter for sterilization 03/11/201702/21 Overview: Risks, benefits and alternatives to sterilization have been discussed with the patient. She declines reversible options including LARC. She understands sterilization is permanent, irreversible, risks of failure, regret and ectopic. In addition she understands there are surgical risks as well. Her questions were answered to her satisfaction and consent was signed. Leatha Kumar MD Gestational diabetes mellitus, class A1 11/18/19 17 07/07/2017 Overview: November 17, 2016 Abnormal 3 hr at 11w. Leatha Kumar MD Unplanned 11/03/2016 07/07/2017 Overview: 11/03/2016This is a surprise . Patient states she got pregnanct on oral contraceptives.The FOB is the father of her previous son. Patient desires PPTL. TKRN Obesity in 11/03/2016 07/07/2017 Overview: 11/03/2016She is obese. Will plan on GCT @ [facility]. TKRN Tobacco use during , antepartum 017 07/07/2017 Overview: 11/03/2016Pt smokes 1/2 pack a day of cigarettes. Discussed risks of smoking during . Advised pt to quit.TKRN Nausea/vomiting in 11/03/2016 Overview: 11/03/2016 Patient is complaining of nausea and occasional vomiting in . Dietary considerations discussed. Patient has tried Vitamin B6 and unisom with little relief. Dr Kumar wrote order for Phenergan. Advised patient to call/come in if she is unable to keep any food or fluids down in a 24-hour period. TKRN Abnormal glucose complicating 10/13/19 15 11/17/2016 Overview: November 08, 2016 Needs 3 hr. Leatha Kumar MD Supervision of other high-risk 015 01/22/2015 Overview: July 03, 2014 elevated WBC at [facility], had infection at that time, trending down. monitor. Leatha Kumar MD Request for sterilization 06/30/20142015 Overview: June 30, 2014 Desires tubal. VALENTIN given. Leatha Kumar MD October 11, 2014 Signed tubal papers. Leatha Kumar MD Anxiety in , antepartum 05/26/2014 01/22/2015 Overview: 05/26/14 - discussed R/B/A & use of medication in , she will cont effexor, stop ativan - KJ Poor support system complicating 05/2601/22/2015 Overview: 05/26/14 - patient is from her - KJ Tobacco use during 05/26/201404/2014 Overview: 05/26/14 - advised on risks & cessation - KJ Obesity complicating 05/26/2014 1 03/24/2014 Overview: 05/26/14 - early GCT today - KJ Generalized abdominal pain 02/21/201307/03 Pelvic pain complicating 02/21/2013 07/05/2013 Frequency of urination 02/21/2013 5 NO SHOW 01/12/2013 07/03/2014 Tobacco abuse 04/12/2012 07/03/2014 Obesity (BMI 30.0-34.9) 04/12/2012 08/20/19 18 Rebound headache 04/12/2012 01/22/2015 Unspecified high-risk 06/19/2008 04/12/2012 Supervision of other normal 12/07/2007 06/19/2008 Other threatened labor, unspecified as to episod e of care 11/29/2005 01/14/2006 Supervision of other normal 08/07/2005 01/14/2006 documented as of this encounter (statuses as of 05/01/2022) [facility] History of Past illness Narrative* Problem Noted Date Resolved Date Severe sepsis 09/11/2018 04/05/2019 Last Assessment & Plan: -The patient was tachycardic, tachypnic, febrile, WBC 31 and LA 1.6. -S/p fluid resuscitation, BP is stable -likely 2/2 HCP, CT chest showed Interval decreased cavitary component and size of right upper lobe pulmonary opacities. Interval new cavitation involving left lower lobe opacities and Interval new region of consolidation within the right lower lobe, possible atelectasis/inflammation/infection. -BC is negative, UC is showing Klebsiella/Enterobacter (UA is clean and the patient is asymptomatic, less likely UTI) -Infectious disease is following, nasal MRSA is negative -Repeat blood culture negative -Continue with Meropenem through -Ordered for Midline Respiratory failure 08/13/2018 04/05/2019 HIT (heparin-induced thrombocytopenia) 9 04/05/2019 SANTANA (acute kidney injury) 08/05/20182018 Last Assessment & Plan: -AKD developed after her prolonged ICU course -Cr is improving -Daily BMP Nicotine use disorder, F17.2 07/19/2018 ARDS (adult respiratory distress syndrome) 07/1604/05/2019 Acute respiratory failure with hypoxia and hyper capnia 07/16/2018 04/05/2019 Pneumonia of both lower lobes due to infectious organism 07/16/2018 04/05/2019 Septic shock 07/16/2018 04/05/2019 Acute encephalopathy 07/16/2018 08/23/2018 Encounter for sterilization 03/11/201702/21 Overview: Risks, benefits and alternatives to sterilization have been discussed with the patient. She declines reversible options including LARC. She understands sterilization is permanent, irreversible, risks of failure, regret and ectopic. In addition she understands there are surgical risks as well. Her questions were answered to her satisfaction and consent was signed. Leatha Kumar MD Gestational diabetes mellitus, class A1 11/18/19 17 07/07/2017 Overview: November 17, 2016 Abnormal 3 hr at 11w. Leatha Kumar MD Unplanned 11/03/2016 07/07/2017 Overview: 11/03/2016This is a surprise . Patient states she got pregnanct on oral contraceptives.The FOB is the father of her previous son. Patient desires PPTL. TKRN Obesity in 11/03/2016 07/07/2017 Overview: 11/03/2016She is obese. Will plan on GCT @ [facility]. TKRN Tobacco use during , antepartum 017 07/07/2017 Overview: 11/03/2016Pt smokes 1/2 pack a day of cigarettes. Discussed risks of smoking during . Advised pt to quit.TKRN Nausea/vomiting in 11/03/2016 Overview: 11/03/2016 Patient is complaining of nausea and occasional vomiting in . Dietary considerations discussed. Patient has tried Vitamin B6 and unisom with little relief. Dr Kumar wrote order for Phenergan. Advised patient to call/come in if she is unable to keep any food or fluids down in a 24-hour period. TKRN Abnormal glucose complicating 10/13/19 15 11/17/2016 Overview: November 08, 2016 Needs 3 hr. Leatha Kumar MD Supervision of other high-risk 015 01/22/2015 Overview: July 03, 2014 elevated WBC at [facility], had infection at that time, trending down. monitor. Leatha Kumar MD Request for sterilization 06/30/20142015 Overview: June 30, 2014 Desires tubal. VALENTIN given. Leatha Kumar MD October 11, 2014 Signed tubal papers. Leatha Kumar MD Anxiety in , antepartum 05/26/2014 01/22/2015 Overview: 05/26/14 - discussed R/B/A & use of medication in , she will cont effexor, stop ativan - KJ Poor support system complicating 05/2601/22/2015 Overview: 05/26/14 - patient is from her - KJ Tobacco use during 05/26/201404/2014 Overview: 05/26/14 - advised on risks & cessation - KJ Obesity complicating 05/26/2014 1 03/24/2014 Overview: 05/26/14 - early GCT today - KJ Generalized abdominal pain 02/21/201307/03 Pelvic pain complicating 02/21/2013 07/05/2013 Frequency of urination 02/21/2013 5 NO SHOW 01/12/2013 07/03/2014 Tobacco abuse 04/12/2012 07/03/2014 Obesity (BMI 30.0-34.9) 04/12/2012 08/20/19 18 Rebound headache 04/12/2012 01/22/2015 Unspecified high-risk 06/19/2008 04/12/2012 Supervision of other normal 12/07/2007 06/19/2008 Other threatened labor, unspecified as to episod e of care 11/29/2005 01/14/2006 Supervision of other normal 08/07/2005 01/14/2006 documented as of this encounter (statuses as of 05/07/2022) [facility] History of Past illness Narrative* Problem Noted Date Resolved Date Severe sepsis 09/11/2018 04/05/2019 Last Assessment & Plan: -The patient was tachycardic, tachypnic, febrile, WBC 31 and LA 1.6. -S/p fluid resuscitation, BP is stable -likely 2/2 HCP, CT chest showed Interval decreased cavitary component and size of right upper lobe pulmonary opacities. Interval new cavitation involving left lower lobe opacities and Interval new region of consolidation within the right lower lobe, possible atelectasis/inflammation/infection. -BC is negative, UC is showing Klebsiella/Enterobacter (UA is clean and the patient is asymptomatic, less likely UTI) -Infectious disease is following, nasal MRSA is negative -Repeat blood culture negative -Continue with Meropenem through -Ordered for Midline Respiratory failure 08/13/2018 04/05/2019 HIT (heparin-induced thrombocytopenia) 9 04/05/2019 SANTANA (acute kidney injury) 08/05/20182018 Last Assessment & Plan: -AKD developed after her prolonged ICU course -Cr is improving -Daily BMP Nicotine use disorder, F17.2 07/19/2018 ARDS (adult respiratory distress syndrome) 07/1604/05/2019 Acute respiratory failure with hypoxia and hyper capnia 07/16/2018 04/05/2019 Pneumonia of both lower lobes due to infectious organism 07/16/2018 04/05/2019 Septic shock 07/16/2018 04/05/2019 Acute encephalopathy 07/16/2018 08/23/2018 Encounter for sterilization 03/11/201702/21 Overview: Risks, benefits and alternatives to sterilization have been discussed with the patient. She declines reversible options including LARC. She understands sterilization is permanent, irreversible, risks of failure, regret and ectopic. In addition she understands there are surgical risks as well. Her questions were answered to her satisfaction and consent was signed. Leatha Kumar MD Gestational diabetes mellitus, class A1 11/18/19 17 07/07/2017 Overview: November 17, 2016 Abnormal 3 hr at 11w. Leatha Kumar MD Unplanned 11/03/2016 07/07/2017 Overview: 11/03/2016This is a surprise . Patient states she got pregnanct on oral contraceptives.The FOB is the father of her previous son. Patient desires PPTL. TKRN Obesity in 11/03/2016 07/07/2017 Overview: 11/03/2016She is obese. Will plan on GCT @ [facility]. TKRN Tobacco use during , antepartum 017 07/07/2017 Overview: 11/03/2016Pt smokes 1/2 pack a day of cigarettes. Discussed risks of smoking during . Advised pt to quit.TKRN Nausea/vomiting in 11/03/2016 Overview: 11/03/2016 Patient is complaining of nausea and occasional vomiting in . Dietary considerations discussed. Patient has tried Vitamin B6 and unisom with little relief. Dr Kumar wrote order for Phenergan. Advised patient to call/come in if she is unable to keep any food or fluids down in a 24-hour period. TKRN Abnormal glucose complicating 10/13/19 15 11/17/2016 Overview: November 08, 2016 Needs 3 hr. Leatha Kumar MD Supervision of other high-risk 015 01/22/2015 Overview: July 03, 2014 elevated WBC at [facility], had infection at that time, trending down. monitor. Leatha Kumar MD Request for sterilization 06/30/20142015 Overview: June 30, 2014 Desires tubal. VALENTIN given. Leatha Kumar MD October 11, 2014 Signed tubal papers. Leatha Kumar MD Anxiety in , antepartum 05/26/2014 01/22/2015 Overview: 05/26/14 - discussed R/B/A & use of medication in , she will cont effexor, stop ativan - KJ Poor support system complicating 05/2601/22/2015 Overview: 05/26/14 - patient is from her - KJ Tobacco use during 05/26/201404/2014 Overview: 05/26/14 - advised on risks & cessation - KJ Obesity complicating 05/26/2014 1 03/24/2014 Overview: 05/26/14 - early GCT today - KJ Generalized abdominal pain 02/21/201307/03 Pelvic pain complicating 02/21/2013 07/05/2013 Frequency of urination 02/21/2013 5 NO SHOW 01/12/2013 07/03/2014 Tobacco abuse 04/12/2012 07/03/2014 Obesity (BMI 30.0-34.9) 04/12/2012 08/20/19 18 Rebound headache 04/12/2012 01/22/2015 Unspecified high-risk 06/19/2008 04/12/2012 Supervision of other normal 12/07/2007 06/19/2008 Other threatened labor, unspecified as to episod e of care 11/29/2005 01/14/2006 Supervision of other normal 08/07/2005 01/14/2006 documented as of this encounter (statuses as of 05/12/2022) [facility] History of Past illness Narrative* Problem Noted Date Resolved Date Severe sepsis 09/11/2018 04/05/2019 Last Assessment & Plan: -The patient was tachycardic, tachypnic, febrile, WBC 31 and LA 1.6. -S/p fluid resuscitation, BP is stable -likely 2/2 HCP, CT chest showed Interval decreased cavitary component and size of right upper lobe pulmonary opacities. Interval new cavitation involving left lower lobe opacities and Interval new region of consolidation within the right lower lobe, possible atelectasis/inflammation/infection. -BC is negative, UC is showing Klebsiella/Enterobacter (UA is clean and the patient is asymptomatic, less likely UTI) -Infectious disease is following, nasal MRSA is negative -Repeat blood culture negative -Continue with Meropenem through 6/31 -Ordered for Midline Respiratory failure 08/13/2018 04/05/2019 HIT (heparin-induced thrombocytopenia) 9 04/05/2019 SANTANA (acute kidney injury) 08/05/20182018 Last Assessment & Plan: -AKD developed after her prolonged ICU course -Cr is improving -Daily BMP Nicotine use disorder, F17.2 07/19/2018 ARDS (adult respiratory distress syndrome) 07/1604/05/2019 Acute respiratory failure with hypoxia and hyper capnia 07/16/2018 04/05/2019 Pneumonia of both lower lobes due to infectious organism 07/16/2018 04/05/2019 Septic shock 07/16/2018 04/05/2019 Acute encephalopathy 07/16/2018 08/23/2018 Encounter for sterilization 03/11/201702/21 Overview: Risks, benefits and alternatives to sterilization have been discussed with the patient. She declines reversible options including LARC. She understands sterilization is permanent, irreversible, risks of failure, regret and ectopic. In addition she understands there are surgical risks as well. Her questions were answered to her satisfaction and consent was signed. Leatha Kumar MD Gestational diabetes mellitus, class A1 11/18/1907/07/2017 Overview: November 17, 2016 Abnormal 3 hr at 11w. Leatha Kumar MD Unplanned 11/03/2016 07/07/2017 Overview: 11/03/2016This is a surprise . Patient states she got pregnanct on oral contraceptives.The FOB is the father of her previous son. Patient desires PPTL. TKRN Obesity in 11/03/2016 07/07/2017 Overview: 11/03/2016She is obese. Will plan on GCT @ [facility]. TKRN Tobacco use during , antepartum 017 07/07/2017 Overview: 11/03/2016Pt smokes 1/2 pack a day of cigarettes. Discussed risks of smoking during . Advised pt to quit.TKRN Nausea/vomiting in 11/03/2016 Overview: 11/03/2016 Patient is complaining of nausea and occasional vomiting in . Dietary considerations discussed. Patient has tried Vitamin B6 and unisom with little relief. Dr Kumar wrote order for Phenergan. Advised patient to call/come in if she is unable to keep any food or fluids down in a 24-hour period. TKRN Abnormal glucose complicating 10/13/19 15 11/17/2016 Overview: November 08, 2016 Needs 3 hr. Leatha Kumar MD Supervision of other high-risk 015 01/22/2015 Overview: July 03, 2014 elevated WBC at [facility], had infection at that time, trending down. monitor. Leatha Kumar MD Request for sterilization 06/30/20142015 Overview: June 30, 2014 Desires tubal. VALENTIN given. Leatha Kumar MD October 11, 2014 Signed tubal papers. Leatha Kumar MD Anxiety in , antepartum 05/26/2014 01/22/2015 Overview: 05/26/14 - discussed R/B/A & use of medication in , she will cont effexor, stop ativan - KJ Poor support system complicating 05/2601/22/2015 Overview: 05/26/14 - patient is from her - KJ Tobacco use during 05/26/201404/2014 Overview: 05/26/14 - advised on risks & cessation - KJ Obesity complicating 05/26/2014 1 03/24/2014 Overview: 05/26/14 - early GCT today - KJ Generalized abdominal pain 02/21/201307/03 Pelvic pain complicating 02/21/2013 07/05/2013 Frequency of urination 02/21/2013 5 NO SHOW 01/12/2013 07/03/2014 Tobacco abuse 04/12/2012 07/03/2014 Obesity (BMI 30.0-34.9) 04/12/2012 08/20/19 18 Rebound headache 04/12/2012 01/22/2015 Unspecified high-risk 06/19/2008 04/12/2012 Supervision of other normal 12/07/2007 06/19/2008 Other threatened labor, unspecified as to episod e of care 11/29/2005 01/14/2006 Supervision of other normal 08/07/2005 01/14/2006 documented as of this encounter (statuses as of 05/13/2022) [facility] History of Past illness Narrative* Problem Noted Date Resolved Date Severe sepsis 09/11/2018 04/05/2019 Last Assessment & Plan: -The patient was tachycardic, tachypnic, febrile, WBC 31 and LA 1.6. -S/p fluid resuscitation, BP is stable -likely 2/2 HCP, CT chest showed Interval decreased cavitary component and size of right upper lobe pulmonary opacities. Interval new cavitation involving left lower lobe opacities and Interval new region of consolidation within the right lower lobe, possible atelectasis/inflammation/infection. -BC is negative, UC is showing Klebsiella/Enterobacter (UA is clean and the patient is asymptomatic, less likely UTI) -Infectious disease is following, nasal MRSA is negative -Repeat blood culture negative -Continue with Meropenem through -Ordered for Midline Respiratory failure 08/13/2018 04/05/2019 HIT (heparin-induced thrombocytopenia) 9 04/05/2019 SANTANA (acute kidney injury) 08/05/20182018 Last Assessment & Plan: -AKD developed after her prolonged ICU course -Cr is improving -Daily BMP Nicotine use disorder, F17.2 07/19/2018 ARDS (adult respiratory distress syndrome) 07/1604/05/2019 Acute respiratory failure with hypoxia and hyper capnia 07/16/2018 04/05/2019 Pneumonia of both lower lobes due to infectious organism 07/16/2018 04/05/2019 Septic shock 07/16/2018 04/05/2019 Acute encephalopathy 07/16/2018 08/23/2018 Encounter for sterilization 03/11/201702/21 Overview: Risks, benefits and alternatives to sterilization have been discussed with the patient. She declines reversible options including LARC. She understands sterilization is permanent, irreversible, risks of failure, regret and ectopic. In addition she understands there are surgical risks as well. Her questions were answered to her satisfaction and consent was signed. Leatha Kumar MD Gestational diabetes mellitus, class A1 11/18/19 17 07/07/2017 Overview: November 17, 2016 Abnormal 3 hr at 11w. Leatha Kumar MD Unplanned 11/03/2016 07/07/2017 Overview: 11/03/2016This is a surprise . Patient states she got pregnanct on oral contraceptives.The FOB is the father of her previous son. Patient desires PPTL. TKRN Obesity in 11/03/2016 07/07/2017 Overview: 11/03/2016She is obese. Will plan on GCT @ [facility]. TKRN Tobacco use during , antepartum 017 07/07/2017 Overview: 11/03/2016Pt smokes 1/2 pack a day of cigarettes. Discussed risks of smoking during . Advised pt to quit.TKRN Nausea/vomiting in 11/03/2016 Overview: 11/03/2016 Patient is complaining of nausea and occasional vomiting in . Dietary considerations discussed. Patient has tried Vitamin B6 and unisom with little relief. Dr Kumar wrote order for Phenergan. Advised patient to call/come in if she is unable to keep any food or fluids down in a 24-hour period. TKRN Abnormal glucose complicating 10/13/19 15 11/17/2016 Overview: November 08, 2016 Needs 3 hr. Leatha Kumar MD Supervision of other high-risk 015 01/22/2015 Overview: July 03, 2014 elevated WBC at [facility], had infection at that time, trending down. monitor. Leatha Kumar MD Request for sterilization 06/30/20142015 Overview: June 30, 2014 Desires tubal. VALENTIN given. Leatha Kumar MD October 11, 2014 Signed tubal papers. Leatha Kumar MD Anxiety in , antepartum 05/26/2014 01/22/2015 Overview: 05/26/14 - discussed R/B/A & use of medication in , she will cont effexor, stop ativan - KJ Poor support system complicating 05/2601/22/2015 Overview: 05/26/14 - patient is from her - KJ Tobacco use during 05/26/201404/2014 Overview: 05/26/14 - advised on risks & cessation - KJ Obesity complicating 05/26/2014 1 03/24/2014 Overview: 05/26/14 - early GCT today - KJ Generalized abdominal pain 02/21/201307/03 Pelvic pain complicating 02/21/2013 07/05/2013 Frequency of urination 02/21/2013 5 NO SHOW 01/12/2013 07/03/2014 Tobacco abuse 04/12/2012 07/03/2014 Obesity (BMI 30.0-34.9) 04/12/2012 08/20/19 18 Rebound headache 04/12/2012 01/22/2015 Unspecified high-risk 06/19/2008 04/12/2012 Supervision of other normal 12/07/2007 06/19/2008 Other threatened labor, unspecified as to episod e of care 11/29/2005 01/14/2006 Supervision of other normal 08/07/2005 01/14/2006 documented as of this encounter (statuses as of 05/23/2022) [facility] History of Past illness Narrative* Problem Noted Date Resolved Date Severe sepsis 09/11/2018 04/05/2019 Last Assessment & Plan: -The patient was tachycardic, tachypnic, febrile, WBC 31 and LA 1.6. -S/p fluid resuscitation, BP is stable -likely 2/2 HCP, CT chest showed Interval decreased cavitary component and size of right upper lobe pulmonary opacities. Interval new cavitation involving left lower lobe opacities and Interval new region of consolidation within the right lower lobe, possible atelectasis/inflammation/infection. -BC is negative, UC is showing Klebsiella/Enterobacter (UA is clean and the patient is asymptomatic, less likely UTI) -Infectious disease is following, nasal MRSA is negative -Repeat blood culture negative -Continue with Meropenem through -Ordered for Midline Respiratory failure 08/13/2018 04/05/2019 HIT (heparin-induced thrombocytopenia) 9 04/05/2019 SANTANA (acute kidney injury) 08/05/20182018 Last Assessment & Plan: -AKD developed after her prolonged ICU course -Cr is improving -Daily BMP Nicotine use disorder, F17.2 07/19/2018 ARDS (adult respiratory distress syndrome) 07/1604/05/2019 Acute respiratory failure with hypoxia and hyper capnia 07/16/2018 04/05/2019 Pneumonia of both lower lobes due to infectious organism 07/16/2018 04/05/2019 Septic shock 07/16/2018 04/05/2019 Acute encephalopathy 07/16/2018 08/23/2018 Encounter for sterilization 03/11/201702/21 Overview: Risks, benefits and alternatives to sterilization have been discussed with the patient. She declines reversible options including LARC. She understands sterilization is permanent, irreversible, risks of failure, regret and ectopic. In addition she understands there are surgical risks as well. Her questions were answered to her satisfaction and consent was signed. Leatha Kumar MD Gestational diabetes mellitus, class A1 11/18/19 17 07/07/2017 Overview: November 17, 2016 Abnormal 3 hr at 11w. Leatha Kumar MD Unplanned 11/03/2016 07/07/2017 Overview: 11/03/2016This is a surprise . Patient states she got pregnanct on oral contraceptives.The FOB is the father of her previous son. Patient desires PPTL. TKRN Obesity in 11/03/2016 07/07/2017 Overview: 11/03/2016She is obese. Will plan on GCT @ [facility]. TKRN Tobacco use during , antepartum 017 07/07/2017 Overview: 11/03/2016Pt smokes 1/2 pack a day of cigarettes. Discussed risks of smoking during . Advised pt to quit.TKRN Nausea/vomiting in 11/03/2016 Overview: 11/03/2016 Patient is complaining of nausea and occasional vomiting in . Dietary considerations discussed. Patient has tried Vitamin B6 and unisom with little relief. Dr Kumar wrote order for Phenergan. Advised patient to call/come in if she is unable to keep any food or fluids down in a 24-hour period. TKRN Abnormal glucose complicating 10/13/19 15 11/17/2016 Overview: November 08, 2016 Needs 3 hr. Leatha Kumar MD Supervision of other high-risk 015 01/22/2015 Overview: July 03, 2014 elevated WBC at [facility], had infection at that time, trending down. monitor. Leatha Kumar MD Request for sterilization 06/30/20142015 Overview: June 30, 2014 Desires tubal. VALENTIN given. Leatha Kumar MD October 11, 2014 Signed tubal papers. Leatha Kumar MD Anxiety in , antepartum 05/26/2014 01/22/2015 Overview: 05/26/14 - discussed R/B/A & use of medication in , she will cont effexor, stop ativan - KJ Poor support system complicating 05/2601/22/2015 Overview: 05/26/14 - patient is from her - KJ Tobacco use during 05/26/201404/2014 Overview: 05/26/14 - advised on risks & cessation - KJ Obesity complicating 05/26/2014 1 03/24/2014 Overview: 05/26/14 - early GCT today - KJ Generalized abdominal pain 02/21/201307/03 Pelvic pain complicating 02/21/2013 07/05/2013 Frequency of urination 02/21/2013 5 NO SHOW 01/12/2013 07/03/2014 Tobacco abuse 04/12/2012 07/03/2014 Obesity (BMI 30.0-34.9) 04/12/2012 08/20/19 18 Rebound headache 04/12/2012 01/22/2015 Unspecified high-risk 06/19/2008 04/12/2012 Supervision of other normal 12/07/2007 06/19/2008 Other threatened labor, unspecified as to episod e of care 11/29/2005 01/14/2006 Supervision of other normal 08/07/2005 01/14/2006 documented as of this encounter (statuses as of 05/27/2022) [facility] History of Past illness Narrative* Problem Noted Date Resolved Date Severe sepsis 09/11/2018 04/05/2019 Last Assessment & Plan: -The patient was tachycardic, tachypnic, febrile, WBC 31 and LA 1.6. -S/p fluid resuscitation, BP is stable -likely 2/2 HCP, CT chest showed Interval decreased cavitary component and size of right upper lobe pulmonary opacities. Interval new cavitation involving left lower lobe opacities and Interval new region of consolidation within the right lower lobe, possible atelectasis/inflammation/infection. -BC is negative, UC is showing Klebsiella/Enterobacter (UA is clean and the patient is asymptomatic, less likely UTI) -Infectious disease is following, nasal MRSA is negative -Repeat blood culture negative -Continue with Meropenem through -Ordered for Midline Respiratory failure 08/13/2018 04/05/2019 HIT (heparin-induced thrombocytopenia) 9 04/05/2019 SANTANA (acute kidney injury) 08/05/20182018 Last Assessment & Plan: -AKD developed after her prolonged ICU course -Cr is improving -Daily BMP Nicotine use disorder, F17.2 07/19/2018 ARDS (adult respiratory distress syndrome) 07/1604/05/2019 Acute respiratory failure with hypoxia and hyper capnia 07/16/2018 04/05/2019 Pneumonia of both lower lobes due to infectious organism 07/16/2018 04/05/2019 Septic shock 07/16/2018 04/05/2019 Acute encephalopathy 07/16/2018 08/23/2018 Encounter for sterilization 03/11/201702/21 Overview: Risks, benefits and alternatives to sterilization have been discussed with the patient. She declines reversible options including LARC. She understands sterilization is permanent, irreversible, risks of failure, regret and ectopic. In addition she understands there are surgical risks as well. Her questions were answered to her satisfaction and consent was signed. Leatha Kumar MD Gestational diabetes mellitus, class A1 11/18/19 17 07/07/2017 Overview: November 17, 2016 Abnormal 3 hr at 11w. Leatha Kumar MD Unplanned 11/03/2016 07/07/2017 Overview: 11/03/2016This is a surprise . Patient states she got pregnanct on oral contraceptives.The FOB is the father of her previous son. Patient desires PPTL. TKRN Obesity in 11/03/2016 07/07/2017 Overview: 11/03/2016She is obese. Will plan on GCT @ [facility]. TKRN Tobacco use during , antepartum 017 07/07/2017 Overview: 11/03/2016Pt smokes 1/2 pack a day of cigarettes. Discussed risks of smoking during . Advised pt to quit.TKRN Nausea/vomiting in 11/03/2016 Overview: 11/03/2016 Patient is complaining of nausea and occasional vomiting in . Dietary considerations discussed. Patient has tried Vitamin B6 and unisom with little relief. Dr Kumar wrote order for Phenergan. Advised patient to call/come in if she is unable to keep any food or fluids down in a 24-hour period. TKRN Abnormal glucose complicating 10/13/19 15 11/17/2016 Overview: November 08, 2016 Needs 3 hr. Leatha Kumar MD Supervision of other high-risk 015 01/22/2015 Overview: July 03, 2014 elevated WBC at [facility], had infection at that time, trending down. monitor. Leatha Kumar MD Request for sterilization 06/30/20142015 Overview: June 30, 2014 Desires tubal. VALENTIN given. Leatha Kumar MD October 11, 2014 Signed tubal papers. Leatha Kumar MD Anxiety in , antepartum 05/26/2014 01/22/2015 Overview: 05/26/14 - discussed R/B/A & use of medication in , she will cont effexor, stop ativan - KJ Poor support system complicating 05/2601/22/2015 Overview: 05/26/14 - patient is from her - KJ Tobacco use during 05/26/201404/2014 Overview: 05/26/14 - advised on risks & cessation - KJ Obesity complicating 05/26/2014 1 03/24/2014 Overview: 05/26/14 - early GCT today - KJ Generalized abdominal pain 02/21/201307/03 Pelvic pain complicating 02/21/2013 07/05/2013 Frequency of urination 02/21/2013 5 NO SHOW 01/12/2013 07/03/2014 Tobacco abuse 04/12/2012 07/03/2014 Obesity (BMI 30.0-34.9) 04/12/2012 08/20/19 18 Rebound headache 04/12/2012 01/22/2015 Unspecified high-risk 06/19/2008 04/12/2012 Supervision of other normal 12/07/2007 06/19/2008 Other threatened labor, unspecified as to episod e of care 11/29/2005 01/14/2006 Supervision of other normal 08/07/2005 01/14/2006 documented as of this encounter (statuses as of 06/03/2022) [facility] History of Past illness Narrative* Problem Noted Date Resolved Date Severe sepsis 09/11/2018 04/05/2019 Last Assessment & Plan: -The patient was tachycardic, tachypnic, febrile, WBC 31 and LA 1.6. -S/p fluid resuscitation, BP is stable -likely 2/2 HCP, CT chest showed Interval decreased cavitary component and size of right upper lobe pulmonary opacities. Interval new cavitation involving left lower lobe opacities and Interval new region of consolidation within the right lower lobe, possible atelectasis/inflammation/infection. -BC is negative, UC is showing Klebsiella/Enterobacter (UA is clean and the patient is asymptomatic, less likely UTI) -Infectious disease is following, nasal MRSA is negative -Repeat blood culture negative -Continue with Meropenem through -Ordered for Midline Respiratory failure 08/13/2018 04/05/2019 HIT (heparin-induced thrombocytopenia) 9 04/05/2019 SANTANA (acute kidney injury) 08/05/20182018 Last Assessment & Plan: -AKD developed after her prolonged ICU course -Cr is improving -Daily BMP Nicotine use disorder, F17.2 07/19/2018 ARDS (adult respiratory distress syndrome) 07/1604/05/2019 Acute respiratory failure with hypoxia and hyper capnia 07/16/2018 04/05/2019 Pneumonia of both lower lobes due to infectious organism 07/16/2018 04/05/2019 Septic shock 07/16/2018 04/05/2019 Acute encephalopathy 07/16/2018 08/23/2018 Encounter for sterilization 03/11/201702/21 Overview: Risks, benefits and alternatives to sterilization have been discussed with the patient. She declines reversible options including LARC. She understands sterilization is permanent, irreversible, risks of failure, regret and ectopic. In addition she understands there are surgical risks as well. Her questions were answered to her satisfaction and consent was signed. Leatha Kumar MD Gestational diabetes mellitus, class A1 11/18/1907/07/2017 Overview: November 17, 2016 Abnormal 3 hr at 11w. Leatha Kumar MD Unplanned 11/03/2016 07/07/2017 Overview: 11/03/2016This is a surprise . Patient states she got pregnanct on oral contraceptives.The FOB is the father of her previous son. Patient desires PPTL. TKRN Obesity in 11/03/2016 07/07/2017 Overview: 11/03/2016She is obese. Will plan on GCT @ [facility]. TKRN Tobacco use during , antepartum 017 07/07/2017 Overview: 11/03/2016Pt smokes 1/2 pack a day of cigarettes. Discussed risks of smoking during . Advised pt to quit.TKRN Nausea/vomiting in 11/03/2016 Overview: 11/03/2016 Patient is complaining of nausea and occasional vomiting in . Dietary considerations discussed. Patient has tried Vitamin B6 and unisom with little relief. Dr Kumar wrote order for Phenergan. Advised patient to call/come in if she is unable to keep any food or fluids down in a 24-hour period. TKRN Abnormal glucose complicating 10/13/19 15 11/17/2016 Overview: November 08, 2016 Needs 3 hr. Leatha Kumar MD Supervision of other high-risk 015 01/22/2015 Overview: July 03, 2014 elevated WBC at [facility], had infection at that time, trending down. monitor. Leatha Kumar MD Request for sterilization 06/30/20142015 Overview: June 30, 2014 Desires tubal. VALENTIN given. Leatha Kumar MD October 11, 2014 Signed tubal papers. Leatha Kumar MD Anxiety in , antepartum 05/26/2014 01/22/2015 Overview: 05/26/14 - discussed R/B/A & use of medication in , she will cont effexor, stop ativan - KJ Poor support system complicating 05/2601/22/2015 Overview: 05/26/14 - patient is from her - KJ Tobacco use during 05/26/201404/2014 Overview: 05/26/14 - advised on risks & cessation - KJ Obesity complicating 05/26/2014 1 03/24/2014 Overview: 05/26/14 - early GCT today - KJ Generalized abdominal pain 02/21/201307/03 Pelvic pain complicating 02/21/2013 07/05/2013 Frequency of urination 02/21/2013 5 NO SHOW 01/12/2013 07/03/2014 Tobacco abuse 04/12/2012 07/03/2014 Obesity (BMI 30.0-34.9) 04/12/2012 08/20/19 18 Rebound headache 04/12/2012 01/22/2015 Unspecified high-risk 06/19/2008 04/12/2012 Supervision of other normal 12/07/2007 06/19/2008 Other threatened labor, unspecified as to episod e of care 11/29/2005 01/14/2006 Supervision of other normal 08/07/2005 01/14/2006 documented as of this encounter (statuses as of 06/10/2022) [facility] History of Past illness Narrative* Problem Noted Date Resolved Date Severe sepsis 09/11/2018 04/05/2019 Last Assessment & Plan: -The patient was tachycardic, tachypnic, febrile, WBC 31 and LA 1.6. -S/p fluid resuscitation, BP is stable -likely 2/2 HCP, CT chest showed Interval decreased cavitary component and size of right upper lobe pulmonary opacities. Interval new cavitation involving left lower lobe opacities and Interval new region of consolidation within the right lower lobe, possible atelectasis/inflammation/infection. -BC is negative, UC is showing Klebsiella/Enterobacter (UA is clean and the patient is asymptomatic, less likely UTI) -Infectious disease is following, nasal MRSA is negative -Repeat blood culture negative -Continue with Meropenem through -Ordered for Midline Respiratory failure 08/13/2018 04/05/2019 HIT (heparin-induced thrombocytopenia) 9 04/05/2019 SANTANA (acute kidney injury) 08/05/20182018 Last Assessment & Plan: -AKD developed after her prolonged ICU course -Cr is improving -Daily BMP Nicotine use disorder, F17.2 07/19/2018 ARDS (adult respiratory distress syndrome) 07/1604/05/2019 Acute respiratory failure with hypoxia and hyper capnia 07/16/2018 04/05/2019 Pneumonia of both lower lobes due to infectious organism 07/16/2018 04/05/2019 Septic shock 07/16/2018 04/05/2019 Acute encephalopathy 07/16/2018 08/23/2018 Encounter for sterilization 03/11/201702/21 Overview: Risks, benefits and alternatives to sterilization have been discussed with the patient. She declines reversible options including LARC. She understands sterilization is permanent, irreversible, risks of failure, regret and ectopic. In addition she understands there are surgical risks as well. Her questions were answered to her satisfaction and consent was signed. Leatha Kumar MD Gestational diabetes mellitus, class A1 11/18/19 17 07/07/2017 Overview: November 17, 2016 Abnormal 3 hr at 11w. Leatha Kumar MD Unplanned 11/03/2016 07/07/2017 Overview: 11/03/2016This is a surprise . Patient states she got pregnanct on oral contraceptives.The FOB is the father of her previous son. Patient desires PPTL. TKRN Obesity in 11/03/2016 07/07/2017 Overview: 11/03/2016She is obese. Will plan on GCT @ [facility]. TKRN Tobacco use during , antepartum 017 07/07/2017 Overview: 11/03/2016Pt smokes 1/2 pack a day of cigarettes. Discussed risks of smoking during . Advised pt to quit.TKRN Nausea/vomiting in 11/03/2016 Overview: 11/03/2016 Patient is complaining of nausea and occasional vomiting in . Dietary considerations discussed. Patient has tried Vitamin B6 and unisom with little relief. Dr Kumar wrote order for Phenergan. Advised patient to call/come in if she is unable to keep any food or fluids down in a 24-hour period. TKRN Abnormal glucose complicating 10/13/19 15 11/17/2016 Overview: November 08, 2016 Needs 3 hr. Leatha Kumar MD Supervision of other high-risk 015 01/22/2015 Overview: July 03, 2014 elevated WBC at [facility], had infection at that time, trending down. monitor. Leatha Kumar MD Request for sterilization 06/30/20142015 Overview: June 30, 2014 Desires tubal. VALENTIN given. Leatha Kumar MD October 11, 2014 Signed tubal papers. Leatha Kumar MD Anxiety in , antepartum 05/26/2014 01/22/2015 Overview: 05/26/14 - discussed R/B/A & use of medication in , she will cont effexor, stop ativan - KJ Poor support system complicating 05/2601/22/2015 Overview: 05/26/14 - patient is from her - KJ Tobacco use during 05/26/201404/2014 Overview: 05/26/14 - advised on risks & cessation - KJ Obesity complicating 05/26/2014 1 03/24/2014 Overview: 05/26/14 - early GCT today - KJ Generalized abdominal pain 02/21/201307/03 Pelvic pain complicating 02/21/2013 07/05/2013 Frequency of urination 02/21/2013 5 NO SHOW 01/12/2013 07/03/2014 Tobacco abuse 04/12/2012 07/03/2014 Obesity (BMI 30.0-34.9) 04/12/2012 08/20/19 18 Rebound headache 04/12/2012 01/22/2015 Unspecified high-risk 06/19/2008 04/12/2012 Supervision of other normal 12/07/2007 06/19/2008 Other threatened labor, unspecified as to episod e of care 11/29/2005 01/14/2006 Supervision of other normal 08/07/2005 01/14/2006 documented as of this encounter (statuses as of 06/10/2022) [facility] History of Past illness Narrative* Problem Noted Date Resolved Date Severe sepsis 09/11/2018 04/05/2019 Last Assessment & Plan: -The patient was tachycardic, tachypnic, febrile, WBC 31 and LA 1.6. -S/p fluid resuscitation, BP is stable -likely 2/2 HCP, CT chest showed Interval decreased cavitary component and size of right upper lobe pulmonary opacities. Interval new cavitation involving left lower lobe opacities and Interval new region of consolidation within the right lower lobe, possible atelectasis/inflammation/infection. -BC is negative, UC is showing Klebsiella/Enterobacter (UA is clean and the patient is asymptomatic, less likely UTI) -Infectious disease is following, nasal MRSA is negative -Repeat blood culture negative -Continue with Meropenem through -Ordered for Midline Respiratory failure 08/13/2018 04/05/2019 HIT (heparin-induced thrombocytopenia) 9 04/05/2019 SANTANA (acute kidney injury) 08/05/20182018 Last Assessment & Plan: -AKD developed after her prolonged ICU course -Cr is improving -Daily BMP Nicotine use disorder, F17.2 07/19/2018 ARDS (adult respiratory distress syndrome) 07/1604/05/2019 Acute respiratory failure with hypoxia and hyper capnia 07/16/2018 04/05/2019 Pneumonia of both lower lobes due to infectious organism 07/16/2018 04/05/2019 Septic shock 07/16/2018 04/05/2019 Acute encephalopathy 07/16/2018 08/23/2018 Encounter for sterilization 03/11/201702/21 Overview: Risks, benefits and alternatives to sterilization have been discussed with the patient. She declines reversible options including LARC. She understands sterilization is permanent, irreversible, risks of failure, regret and ectopic. In addition she understands there are surgical risks as well. Her questions were answered to her satisfaction and consent was signed. Leatha Kumar MD Gestational diabetes mellitus, class A1 11/18/19 17 07/07/2017 Overview: November 17, 2016 Abnormal 3 hr at 11w. Leatha Kumar MD Unplanned 11/03/2016 07/07/2017 Overview: 11/03/2016This is a surprise . Patient states she got pregnanct on oral contraceptives.The FOB is the father of her previous son. Patient desires PPTL. TKRN Obesity in 11/03/2016 07/07/2017 Overview: 11/03/2016She is obese. Will plan on GCT @ [facility]. TKRN Tobacco use during , antepartum 017 07/07/2017 Overview: 11/03/2016Pt smokes 1/2 pack a day of cigarettes. Discussed risks of smoking during . Advised pt to quit.TKRN Nausea/vomiting in 11/03/2016 Overview: 11/03/2016 Patient is complaining of nausea and occasional vomiting in . Dietary considerations discussed. Patient has tried Vitamin B6 and unisom with little relief. Dr Kumar wrote order for Phenergan. Advised patient to call/come in if she is unable to keep any food or fluids down in a 24-hour period. TKRN Abnormal glucose complicating 10/13/19 15 11/17/2016 Overview: November 08, 2016 Needs 3 hr. Leatha Kumar MD Supervision of other high-risk 015 01/22/2015 Overview: July 03, 2014 elevated WBC at [facility], had infection at that time, trending down. monitor. Leatha Kumar MD Request for sterilization 06/30/20142015 Overview: June 30, 2014 Desires tubal. VALENTIN given. Leatha Kumar MD October 11, 2014 Signed tubal papers. Leatha Kumar MD Anxiety in , antepartum 05/26/2014 01/22/2015 Overview: 05/26/14 - discussed R/B/A & use of medication in , she will cont effexor, stop ativan - KJ Poor support system complicating 05/2601/22/2015 Overview: 05/26/14 - patient is from her - KJ Tobacco use during 05/26/201404/2014 Overview: 05/26/14 - advised on risks & cessation - KJ Obesity complicating 05/26/2014 1 03/24/2014 Overview: 05/26/14 - early GCT today - KJ Generalized abdominal pain 02/21/201307/03 Pelvic pain complicating 02/21/2013 07/05/2013 Frequency of urination 02/21/2013 5 NO SHOW 01/12/2013 07/03/2014 Tobacco abuse 04/12/2012 07/03/2014 Obesity (BMI 30.0-34.9) 04/12/2012 08/20/19 18 Rebound headache 04/12/2012 01/22/2015 Unspecified high-risk 06/19/2008 04/12/2012 Supervision of other normal 12/07/2007 06/19/2008 Other threatened labor, unspecified as to episod e of care 11/29/2005 01/14/2006 Supervision of other normal 08/07/2005 01/14/2006 documented as of this encounter (statuses as of 07/10/2022) [facility] History of Past illness Narrative* Problem Noted Date Resolved Date Severe sepsis 09/11/2018 04/05/2019 Last Assessment & Plan: -The patient was tachycardic, tachypnic, febrile, WBC 31 and LA 1.6. -S/p fluid resuscitation, BP is stable -likely 2/2 HCP, CT chest showed Interval decreased cavitary component and size of right upper lobe pulmonary opacities. Interval new cavitation involving left lower lobe opacities and Interval new region of consolidation within the right lower lobe, possible atelectasis/inflammation/infection. -BC is negative, UC is showing Klebsiella/Enterobacter (UA is clean and the patient is asymptomatic, less likely UTI) -Infectious disease is following, nasal MRSA is negative -Repeat blood culture negative -Continue with Meropenem through -Ordered for Midline Respiratory failure 08/13/2018 04/05/2019 HIT (heparin-induced thrombocytopenia) 9 04/05/2019 SANTANA (acute kidney injury) 08/05/20182018 Last Assessment & Plan: -AKD developed after her prolonged ICU course -Cr is improving -Daily BMP Nicotine use disorder, F17.2 07/19/2018 ARDS (adult respiratory distress syndrome) 07/1604/05/2019 Acute respiratory failure with hypoxia and hyper capnia 07/16/2018 04/05/2019 Pneumonia of both lower lobes due to infectious organism 07/16/2018 04/05/2019 Septic shock 07/16/2018 04/05/2019 Acute encephalopathy 07/16/2018 08/23/2018 Encounter for sterilization 03/11/201702/21 Overview: Risks, benefits and alternatives to sterilization have been discussed with the patient. She declines reversible options including LARC. She understands sterilization is permanent, irreversible, risks of failure, regret and ectopic. In addition she understands there are surgical risks as well. Her questions were answered to her satisfaction and consent was signed. Leatha Kumar MD Gestational diabetes mellitus, class A1 11/18/1907/07/2017 Overview: November 17, 2016 Abnormal 3 hr at 11w. Leatha Kumar MD Unplanned 11/03/2016 07/07/2017 Overview: 11/03/2016This is a surprise . Patient states she got pregnanct on oral contraceptives.The FOB is the father of her previous son. Patient desires PPTL. TKRN Obesity in 11/03/2016 07/07/2017 Overview: 11/03/2016She is obese. Will plan on GCT @ [facility]. TKRN Tobacco use during , antepartum 017 07/07/2017 Overview: 11/03/2016Pt smokes 1/2 pack a day of cigarettes. Discussed risks of smoking during . Advised pt to quit.TKRN Nausea/vomiting in 11/03/2016 Overview: 11/03/2016 Patient is complaining of nausea and occasional vomiting in . Dietary considerations discussed. Patient has tried Vitamin B6 and unisom with little relief. Dr Kumar wrote order for Phenergan. Advised patient to call/come in if she is unable to keep any food or fluids down in a 24-hour period. TKRN Abnormal glucose complicating 10/13/19 15 11/17/2016 Overview: November 08, 2016 Needs 3 hr. Leatha Kumar MD Supervision of other high-risk 015 01/22/2015 Overview: July 03, 2014 elevated WBC at [facility], had infection at that time, trending down. monitor. Leatha Kumar MD Request for sterilization 06/30/20142015 Overview: June 30, 2014 Desires tubal. VALENTIN given. Leatha Kumar MD October 11, 2014 Signed tubal papers. Leatha Kumar MD Anxiety in , antepartum 05/26/2014 01/22/2015 Overview: 05/26/14 - discussed R/B/A & use of medication in , she will cont effexor, stop ativan - KJ Poor support system complicating 05/2601/22/2015 Overview: 05/26/14 - patient is from her - KJ Tobacco use during 05/26/201404/2014 Overview: 05/26/14 - advised on risks & cessation - KJ Obesity complicating 05/26/2014 1 03/24/2014 Overview: 05/26/14 - early GCT today - KJ Generalized abdominal pain 02/21/201307/03 Pelvic pain complicating 02/21/2013 07/05/2013 Frequency of urination 02/21/2013 5 NO SHOW 01/12/2013 07/03/2014 Tobacco abuse 04/12/2012 07/03/2014 Obesity (BMI 30.0-34.9) 04/12/2012 08/20/19 18 Rebound headache 04/12/2012 01/22/2015 Unspecified high-risk 06/19/2008 04/12/2012 Supervision of other normal 12/07/2007 06/19/2008 Other threatened labor, unspecified as to episod e of care 11/29/2005 01/14/2006 Supervision of other normal 08/07/2005 01/14/2006 documented as of this encounter (statuses as of 07/14/2022) [facility] History of Past illness Narrative* Problem Noted Date Resolved Date Severe sepsis 09/11/2018 04/05/2019 Last Assessment & Plan: -The patient was tachycardic, tachypnic, febrile, WBC 31 and LA 1.6. -S/p fluid resuscitation, BP is stable -likely 2/2 HCP, CT chest showed Interval decreased cavitary component and size of right upper lobe pulmonary opacities. Interval new cavitation involving left lower lobe opacities and Interval new region of consolidation within the right lower lobe, possible atelectasis/inflammation/infection. -BC is negative, UC is showing Klebsiella/Enterobacter (UA is clean and the patient is asymptomatic, less likely UTI) -Infectious disease is following, nasal MRSA is negative -Repeat blood culture negative -Continue with Meropenem through -Ordered for Midline Respiratory failure 08/13/2018 04/05/2019 HIT (heparin-induced thrombocytopenia) 9 04/05/2019 SANTANA (acute kidney injury) 08/05/20182018 Last Assessment & Plan: -AKD developed after her prolonged ICU course -Cr is improving -Daily BMP Nicotine use disorder, F17.2 07/19/2018 ARDS (adult respiratory distress syndrome) 07/1604/05/2019 Acute respiratory failure with hypoxia and hyper capnia 07/16/2018 04/05/2019 Pneumonia of both lower lobes due to infectious organism 07/16/2018 04/05/2019 Septic shock 07/16/2018 04/05/2019 Acute encephalopathy 07/16/2018 08/23/2018 Encounter for sterilization 03/11/201702/21 Overview: Risks, benefits and alternatives to sterilization have been discussed with the patient. She declines reversible options including LARC. She understands sterilization is permanent, irreversible, risks of failure, regret and ectopic. In addition she understands there are surgical risks as well. Her questions were answered to her satisfaction and consent was signed. Leatha Kumar MD Gestational diabetes mellitus, class A1 11/18/19 17 07/07/2017 Overview: November 17, 2016 Abnormal 3 hr at 11w. Leatha Kumar MD Unplanned 11/03/2016 07/07/2017 Overview: 11/03/2016This is a surprise . Patient states she got pregnanct on oral contraceptives.The FOB is the father of her previous son. Patient desires PPTL. TKRN Obesity in 11/03/2016 07/07/2017 Overview: 11/03/2016She is obese. Will plan on GCT @ [facility]. TKRN Tobacco use during , antepartum 017 07/07/2017 Overview: 11/03/2016Pt smokes 1/2 pack a day of cigarettes. Discussed risks of smoking during . Advised pt to quit.TKRN Nausea/vomiting in 11/03/2016 Overview: 11/03/2016 Patient is complaining of nausea and occasional vomiting in . Dietary considerations discussed. Patient has tried Vitamin B6 and unisom with little relief. Dr Kumar wrote order for Phenergan. Advised patient to call/come in if she is unable to keep any food or fluids down in a 24-hour period. TKRN Abnormal glucose complicating 10/13/19 15 11/17/2016 Overview: November 08, 2016 Needs 3 hr. Leatha Kumar MD Supervision of other high-risk 015 01/22/2015 Overview: July 03, 2014 elevated WBC at [facility], had infection at that time, trending down. monitor. Leatha Kumar MD Request for sterilization 06/30/20142015 Overview: June 30, 2014 Desires tubal. VALENTIN given. Leatha Kumar MD October 11, 2014 Signed tubal papers. Leatha Kumar MD Anxiety in , antepartum 05/26/2014 01/22/2015 Overview: 05/26/14 - discussed R/B/A & use of medication in , she will cont effexor, stop ativan - KJ Poor support system complicating 05/2601/22/2015 Overview: 05/26/14 - patient is from her - KJ Tobacco use during 05/26/201404/2014 Overview: 05/26/14 - advised on risks & cessation - KJ Obesity complicating 05/26/2014 1 03/24/2014 Overview: 05/26/14 - early GCT today - KJ Generalized abdominal pain 02/21/201307/03 Pelvic pain complicating 02/21/2013 07/05/2013 Frequency of urination 02/21/2013 5 NO SHOW 01/12/2013 07/03/2014 Tobacco abuse 04/12/2012 07/03/2014 Obesity (BMI 30.0-34.9) 04/12/2012 08/20/19 18 Rebound headache 04/12/2012 01/22/2015 Unspecified high-risk 06/19/2008 04/12/2012 Supervision of other normal 12/07/2007 06/19/2008 Other threatened labor, unspecified as to episod e of care 11/29/2005 01/14/2006 Supervision of other normal 08/07/2005 01/14/2006 documented as of this encounter (statuses as of 07/21/2022) [facility] History of Past illness Narrative* Problem Noted Date Resolved Date Severe sepsis 09/11/2018 04/05/2019 Last Assessment & Plan: -The patient was tachycardic, tachypnic, febrile, WBC 31 and LA 1.6. -S/p fluid resuscitation, BP is stable -likely 2/2 HCP, CT chest showed Interval decreased cavitary component and size of right upper lobe pulmonary opacities. Interval new cavitation involving left lower lobe opacities and Interval new region of consolidation within the right lower lobe, possible atelectasis/inflammation/infection. -BC is negative, UC is showing Klebsiella/Enterobacter (UA is clean and the patient is asymptomatic, less likely UTI) -Infectious disease is following, nasal MRSA is negative -Repeat blood culture negative -Continue with Meropenem through -Ordered for Midline Respiratory failure 08/13/2018 04/05/2019 HIT (heparin-induced thrombocytopenia) 9 04/05/2019 SANTANA (acute kidney injury) 08/05/20182018 Last Assessment & Plan: -AKD developed after her prolonged ICU course -Cr is improving -Daily BMP Nicotine use disorder, F17.2 07/19/2018 ARDS (adult respiratory distress syndrome) 07/1604/05/2019 Acute respiratory failure with hypoxia and hyper capnia 07/16/2018 04/05/2019 Pneumonia of both lower lobes due to infectious organism 07/16/2018 04/05/2019 Septic shock 07/16/2018 04/05/2019 Acute encephalopathy 07/16/2018 08/23/2018 Encounter for sterilization 03/11/201702/21 Overview: Risks, benefits and alternatives to sterilization have been discussed with the patient. She declines reversible options including LARC. She understands sterilization is permanent, irreversible, risks of failure, regret and ectopic. In addition she understands there are surgical risks as well. Her questions were answered to her satisfaction and consent was signed. Leatha Kumar MD Gestational diabetes mellitus, class A1 11/18/1907/07/2017 Overview: November 17, 2016 Abnormal 3 hr at 11w. Leatha Kumar MD Unplanned 11/03/2016 07/07/2017 Overview: 11/03/2016This is a surprise . Patient states she got pregnanct on oral contraceptives.The FOB is the father of her previous son. Patient desires PPTL. TKRN Obesity in 11/03/2016 07/07/2017 Overview: 11/03/2016She is obese. Will plan on GCT @ [facility]. TKRN Tobacco use during , antepartum 017 07/07/2017 Overview: 11/03/2016Pt smokes 1/2 pack a day of cigarettes. Discussed risks of smoking during . Advised pt to quit.TKRN Nausea/vomiting in 11/03/2016 Overview: 11/03/2016 Patient is complaining of nausea and occasional vomiting in . Dietary considerations discussed. Patient has tried Vitamin B6 and unisom with little relief. Dr Kumar wrote order for Phenergan. Advised patient to call/come in if she is unable to keep any food or fluids down in a 24-hour period. TKRN Abnormal glucose complicating 10/13/19 15 11/17/2016 Overview: November 08, 2016 Needs 3 hr. Leatha Kumar MD Supervision of other high-risk 015 01/22/2015 Overview: July 03, 2014 elevated WBC at [facility], had infection at that time, trending down. monitor. Leatha Kumar MD Request for sterilization 06/30/20142015 Overview: June 30, 2014 Desires tubal. VALENTIN given. Leatha Kumar MD October 11, 2014 Signed tubal papers. Leatha Kumar MD Anxiety in , antepartum 05/26/2014 01/22/2015 Overview: 05/26/14 - discussed R/B/A & use of medication in , she will cont effexor, stop ativan - KJ Poor support system complicating 05/2601/22/2015 Overview: 05/26/14 - patient is from her - KJ Tobacco use during 05/26/201404/2014 Overview: 05/26/14 - advised on risks & cessation - KJ Obesity complicating 05/26/2014 1 03/24/2014 Overview: 05/26/14 - early GCT today - KJ Generalized abdominal pain 02/21/201307/03 Pelvic pain complicating 02/21/2013 07/05/2013 Frequency of urination 02/21/2013 5 NO SHOW 01/12/2013 07/03/2014 Tobacco abuse 04/12/2012 07/03/2014 Obesity (BMI 30.0-34.9) 04/12/2012 08/20/19 18 Rebound headache 04/12/2012 01/22/2015 Unspecified high-risk 06/19/2008 04/12/2012 Supervision of other normal 12/07/2007 06/19/2008 Other threatened labor, unspecified as to episod e of care 11/29/2005 01/14/2006 Supervision of other normal 08/07/2005 01/14/2006 documented as of this encounter (statuses as of 08/06/2022) [facility] History of Past illness Narrative* Problem Noted Date Resolved Date Severe sepsis 09/11/2018 04/05/2019 Last Assessment & Plan: -The patient was tachycardic, tachypnic, febrile, WBC 31 and LA 1.6. -S/p fluid resuscitation, BP is stable -likely 2/2 HCP, CT chest showed Interval decreased cavitary component and size of right upper lobe pulmonary opacities. Interval new cavitation involving left lower lobe opacities and Interval new region of consolidation within the right lower lobe, possible atelectasis/inflammation/infection. -BC is negative, UC is showing Klebsiella/Enterobacter (UA is clean and the patient is asymptomatic, less likely UTI) -Infectious disease is following, nasal MRSA is negative -Repeat blood culture negative -Continue with Meropenem through -Ordered for Midline Respiratory failure 08/13/2018 04/05/2019 HIT (heparin-induced thrombocytopenia) 9 04/05/2019 SANTANA (acute kidney injury) 08/05/20182018 Last Assessment & Plan: -AKD developed after her prolonged ICU course -Cr is improving -Daily BMP Nicotine use disorder, F17.2 07/19/2018 ARDS (adult respiratory distress syndrome) 07/1604/05/2019 Acute respiratory failure with hypoxia and hyper capnia 07/16/2018 04/05/2019 Pneumonia of both lower lobes due to infectious organism 07/16/2018 04/05/2019 Septic shock 07/16/2018 04/05/2019 Acute encephalopathy 07/16/2018 08/23/2018 Encounter for sterilization 03/11/201702/21 Overview: Risks, benefits and alternatives to sterilization have been discussed with the patient. She declines reversible options including LARC. She understands sterilization is permanent, irreversible, risks of failure, regret and ectopic. In addition she understands there are surgical risks as well. Her questions were answered to her satisfaction and consent was signed. Leatha Kumar MD Gestational diabetes mellitus, class A1 11/18/19 17 07/07/2017 Overview: November 17, 2016 Abnormal 3 hr at 11w. Leatha Kumar MD Unplanned 11/03/2016 07/07/2017 Overview: 11/03/2016This is a surprise . Patient states she got pregnanct on oral contraceptives.The FOB is the father of her previous son. Patient desires PPTL. TKRN Obesity in 11/03/2016 07/07/2017 Overview: 11/03/2016She is obese. Will plan on GCT @ [facility]. TKRN Tobacco use during , antepartum 017 07/07/2017 Overview: 11/03/2016Pt smokes 1/2 pack a day of cigarettes. Discussed risks of smoking during . Advised pt to quit.TKRN Nausea/vomiting in 11/03/2016 Overview: 11/03/2016 Patient is complaining of nausea and occasional vomiting in . Dietary considerations discussed. Patient has tried Vitamin B6 and unisom with little relief. Dr Kumar wrote order for Phenergan. Advised patient to call/come in if she is unable to keep any food or fluids down in a 24-hour period. TKRN Abnormal glucose complicating 10/13/19 15 11/17/2016 Overview: November 08, 2016 Needs 3 hr. Leatha Kumar MD Supervision of other high-risk 015 01/22/2015 Overview: July 03, 2014 elevated WBC at [facility], had infection at that time, trending down. monitor. Leatha Kumar MD Request for sterilization 06/30/20142015 Overview: June 30, 2014 Desires tubal. VALENTIN given. Leatha Kumar MD October 11, 2014 Signed tubal papers. Leatha Kumar MD Anxiety in , antepartum 05/26/2014 01/22/2015 Overview: 05/26/14 - discussed R/B/A & use of medication in , she will cont effexor, stop ativan - KJ Poor support system complicating 05/2601/22/2015 Overview: 05/26/14 - patient is from her - KJ Tobacco use during 05/26/201404/2014 Overview: 05/26/14 - advised on risks & cessation - KJ Obesity complicating 05/26/2014 1 03/24/2014 Overview: 05/26/14 - early GCT today - KJ Generalized abdominal pain 02/21/201307/03 Pelvic pain complicating 02/21/2013 07/05/2013 Frequency of urination 02/21/2013 5 NO SHOW 01/12/2013 07/03/2014 Tobacco abuse 04/12/2012 07/03/2014 Obesity (BMI 30.0-34.9) 04/12/2012 08/20/19 18 Rebound headache 04/12/2012 01/22/2015 Unspecified high-risk 06/19/2008 04/12/2012 Supervision of other normal 12/07/2007 06/19/2008 Other threatened labor, unspecified as to episod e of care 11/29/2005 01/14/2006 Supervision of other normal 08/07/2005 01/14/2006 documented as of this encounter (statuses as of 08/27/2022) [facility] History of Past illness Narrative* Problem Noted Date Resolved Date Severe sepsis 09/11/2018 04/05/2019 Last Assessment & Plan: -The patient was tachycardic, tachypnic, febrile, WBC 31 and LA 1.6. -S/p fluid resuscitation, BP is stable -likely 2/2 HCP, CT chest showed Interval decreased cavitary component and size of right upper lobe pulmonary opacities. Interval new cavitation involving left lower lobe opacities and Interval new region of consolidation within the right lower lobe, possible atelectasis/inflammation/infection. -BC is negative, UC is showing Klebsiella/Enterobacter (UA is clean and the patient is asymptomatic, less likely UTI) -Infectious disease is following, nasal MRSA is negative -Repeat blood culture negative -Continue with Meropenem through -Ordered for Midline Respiratory failure 08/13/2018 04/05/2019 HIT (heparin-induced thrombocytopenia) 9 04/05/2019 SANTANA (acute kidney injury) 08/05/20182018 Last Assessment & Plan: -AKD developed after her prolonged ICU course -Cr is improving -Daily BMP Nicotine use disorder, F17.2 07/19/2018 ARDS (adult respiratory distress syndrome) 07/1604/05/2019 Acute respiratory failure with hypoxia and hyper capnia 07/16/2018 04/05/2019 Pneumonia of both lower lobes due to infectious organism 07/16/2018 04/05/2019 Septic shock 07/16/2018 04/05/2019 Acute encephalopathy 07/16/2018 08/23/2018 Encounter for sterilization 03/11/201702/21 Overview: Risks, benefits and alternatives to sterilization have been discussed with the patient. She declines reversible options including LARC. She understands sterilization is permanent, irreversible, risks of failure, regret and ectopic. In addition she understands there are surgical risks as well. Her questions were answered to her satisfaction and consent was signed. Leatha Kumar MD Gestational diabetes mellitus, class A1 11/18/19 17 07/07/2017 Overview: November 17, 2016 Abnormal 3 hr at 11w. Leatha Kumar MD Unplanned 11/03/2016 07/07/2017 Overview: 11/03/2016This is a surprise . Patient states she got pregnanct on oral contraceptives.The FOB is the father of her previous son. Patient desires PPTL. TKRN Obesity in 11/03/2016 07/07/2017 Overview: 11/03/2016She is obese. Will plan on GCT @ [facility]. TKRN Tobacco use during , antepartum 017 07/07/2017 Overview: 11/03/2016Pt smokes 1/2 pack a day of cigarettes. Discussed risks of smoking during . Advised pt to quit.TKRN Nausea/vomiting in 11/03/2016 Overview: 11/03/2016 Patient is complaining of nausea and occasional vomiting in . Dietary considerations discussed. Patient has tried Vitamin B6 and unisom with little relief. Dr Kumar wrote order for Phenergan. Advised patient to call/come in if she is unable to keep any food or fluids down in a 24-hour period. TKRN Abnormal glucose complicating 10/13/19 15 11/17/2016 Overview: November 08, 2016 Needs 3 hr. Leatha Kumar MD Supervision of other high-risk 015 01/22/2015 Overview: July 03, 2014 elevated WBC at [facility], had infection at that time, trending down. monitor. Leatha Kumar MD Request for sterilization 06/30/20142015 Overview: June 30, 2014 Desires tubal. VALENTIN given. Leatha Kumar MD October 11, 2014 Signed tubal papers. Leatha Kumar MD Anxiety in , antepartum 05/26/2014 01/22/2015 Overview: 05/26/14 - discussed R/B/A & use of medication in , she will cont effexor, stop ativan - KJ Poor support system complicating 05/2601/22/2015 Overview: 05/26/14 - patient is from her - KJ Tobacco use during 05/26/201404/2014 Overview: 05/26/14 - advised on risks & cessation - KJ Obesity complicating 05/26/2014 1 03/24/2014 Overview: 05/26/14 - early GCT today - KJ Generalized abdominal pain 02/21/201307/03 Pelvic pain complicating 02/21/2013 07/05/2013 Frequency of urination 02/21/2013 5 NO SHOW 01/12/2013 07/03/2014 Tobacco abuse 04/12/2012 07/03/2014 Obesity (BMI 30.0-34.9) 04/12/2012 08/20/19 18 Rebound headache 04/12/2012 01/22/2015 Unspecified high-risk 06/19/2008 04/12/2012 Supervision of other normal 12/07/2007 06/19/2008 Other threatened labor, unspecified as to episod e of care 11/29/2005 01/14/2006 Supervision of other normal 08/07/2005 01/14/2006 documented as of this encounter (statuses as of 09/11/2022) [facility]2019 History of Past illness Narrative* Problem Noted Date Resolved Date Severe sepsis 09/11/2018 04/05/2019 Last Assessment & Plan: -The patient was tachycardic, tachypnic, febrile, WBC 31 and LA 1.6. -S/p fluid resuscitation, BP is stable -likely 2/2 HCP, CT chest showed Interval decreased cavitary component and size of right upper lobe pulmonary opacities. Interval new cavitation involving left lower lobe opacities and Interval new region of consolidation within the right lower lobe, possible atelectasis/inflammation/infection. -BC is negative, UC is showing Klebsiella/Enterobacter (UA is clean and the patient is asymptomatic, less likely UTI) -Infectious disease is following, nasal MRSA is negative -Repeat blood culture negative -Continue with Meropenem through -Ordered for Midline Respiratory failure 08/13/2018 04/05/2019 HIT (heparin-induced thrombocytopenia) 9 04/05/2019 SANTANA (acute kidney injury) 08/05/20182018 Last Assessment & Plan: -AKD developed after her prolonged ICU course -Cr is improving -Daily BMP Nicotine use disorder, F17.2 07/19/2018 ARDS (adult respiratory distress syndrome) 07/1604/05/2019 Acute respiratory failure with hypoxia and hyper capnia 07/16/2018 04/05/2019 Pneumonia of both lower lobes due to infectious organism 07/16/2018 04/05/2019 Septic shock 07/16/2018 04/05/2019 Acute encephalopathy 07/16/2018 08/23/2018 Encounter for sterilization 03/11/201702/21 Overview: Risks, benefits and alternatives to sterilization have been discussed with the patient. She declines reversible options including LARC. She understands sterilization is permanent, irreversible, risks of failure, regret and ectopic. In addition she understands there are surgical risks as well. Her questions were answered to her satisfaction and consent was signed. Leatha Kumar MD Gestational diabetes mellitus, class A1 11/18/19 17 07/07/2017 Overview: November 17, 2016 Abnormal 3 hr at 11w. Leatha Kumar MD Unplanned 11/03/2016 07/07/2017 Overview: 11/03/2016This is a surprise . Patient states she got pregnanct on oral contraceptives.The FOB is the father of her previous son. Patient desires PPTL. TKRN Obesity in 11/03/2016 07/07/2017 Overview: 11/03/2016She is obese. Will plan on GCT @ [facility]. TKRN Tobacco use during , antepartum 017 07/07/2017 Overview: 11/03/2016Pt smokes 1/2 pack a day of cigarettes. Discussed risks of smoking during . Advised pt to quit.TKRN Nausea/vomiting in 11/03/2016 Overview: 11/03/2016 Patient is complaining of nausea and occasional vomiting in . Dietary considerations discussed. Patient has tried Vitamin B6 and unisom with little relief. Dr Kumar wrote order for Phenergan. Advised patient to call/come in if she is unable to keep any food or fluids down in a 24-hour period. TKRN Abnormal glucose complicating 10/13/19 15 11/17/2016 Overview: November 08, 2016 Needs 3 hr. Leatha Kumar MD Supervision of other high-risk 015 01/22/2015 Overview: July 03, 2014 elevated WBC at [facility], had infection at that time, trending down. monitor. Leatha Kumar MD Request for sterilization 06/30/20142015 Overview: June 30, 2014 Desires tubal. VALENTIN given. Leatha Kumar MD October 11, 2014 Signed tubal papers. Leatha Kumar MD Anxiety in , antepartum 05/26/2014 01/22/2015 Overview: 05/26/14 - discussed R/B/A & use of medication in , she will cont effexor, stop ativan - KJ Poor support system complicating 05/2601/22/2015 Overview: 05/26/14 - patient is from her - KJ Tobacco use during 05/26/201404/2014 Overview: 05/26/14 - advised on risks & cessation - KJ Obesity complicating 05/26/2014 1 03/24/2014 Overview: 05/26/14 - early GCT today - KJ Generalized abdominal pain 02/21/201307/03 Pelvic pain complicating 02/21/2013 07/05/2013 Frequency of urination 02/21/2013 5 NO SHOW 01/12/2013 07/03/2014 Tobacco abuse 04/12/2012 07/03/2014 Obesity (BMI 30.0-34.9) 04/12/2012 08/20/19 18 Rebound headache 04/12/2012 01/22/2015 Unspecified high-risk 06/19/2008 04/12/2012 Supervision of other normal 12/07/2007 06/19/2008 Other threatened labor, unspecified as to episod e of care 11/29/2005 01/14/2006 Supervision of other normal 08/07/2005 01/14/2006 documented as of this encounter (statuses as of 09/13/2022) [facility] History of Past illness Narrative* Problem Noted Date Resolved Date Severe sepsis 09/11/2018 04/05/2019 Last Assessment & Plan: -The patient was tachycardic, tachypnic, febrile, WBC 31 and LA 1.6. -S/p fluid resuscitation, BP is stable -likely 2/2 HCP, CT chest showed Interval decreased cavitary component and size of right upper lobe pulmonary opacities. Interval new cavitation involving left lower lobe opacities and Interval new region of consolidation within the right lower lobe, possible atelectasis/inflammation/infection. -BC is negative, UC is showing Klebsiella/Enterobacter (UA is clean and the patient is asymptomatic, less likely UTI) -Infectious disease is following, nasal MRSA is negative -Repeat blood culture negative -Continue with Meropenem through -Ordered for Midline Respiratory failure 08/13/2018 04/05/2019 HIT (heparin-induced thrombocytopenia) 9 04/05/2019 SANTANA (acute kidney injury) 08/05/20182018 Last Assessment & Plan: -AKD developed after her prolonged ICU course -Cr is improving -Daily BMP Nicotine use disorder, F17.2 07/19/2018 ARDS (adult respiratory distress syndrome) 07/1604/05/2019 Acute respiratory failure with hypoxia and hyper capnia 07/16/2018 04/05/2019 Pneumonia of both lower lobes due to infectious organism 07/16/2018 04/05/2019 Septic shock 07/16/2018 04/05/2019 Acute encephalopathy 07/16/2018 08/23/2018 Encounter for sterilization 03/11/201702/21 Overview: Risks, benefits and alternatives to sterilization have been discussed with the patient. She declines reversible options including LARC. She understands sterilization is permanent, irreversible, risks of failure, regret and ectopic. In addition she understands there are surgical risks as well. Her questions were answered to her satisfaction and consent was signed. Leatha Kumar MD Gestational diabetes mellitus, class A1 11/18/19 17 07/07/2017 Overview: November 17, 2016 Abnormal 3 hr at 11w. Leatha Kumar MD Unplanned 11/03/2016 07/07/2017 Overview: 11/03/2016This is a surprise . Patient states she got pregnanct on oral contraceptives.The FOB is the father of her previous son. Patient desires PPTL. TKRN Obesity in 11/03/2016 07/07/2017 Overview: 11/03/2016She is obese. Will plan on GCT @ [facility]. TKRN Tobacco use during , antepartum 017 07/07/2017 Overview: 11/03/2016Pt smokes 1/2 pack a day of cigarettes. Discussed risks of smoking during . Advised pt to quit.TKRN Nausea/vomiting in 11/03/2016 Overview: 11/03/2016 Patient is complaining of nausea and occasional vomiting in . Dietary considerations discussed. Patient has tried Vitamin B6 and unisom with little relief. Dr Kumar wrote order for Phenergan. Advised patient to call/come in if she is unable to keep any food or fluids down in a 24-hour period. TKRN Abnormal glucose complicating 10/13/19 15 11/17/2016 Overview: November 08, 2016 Needs 3 hr. Leatha Kumar MD Supervision of other high-risk 015 01/22/2015 Overview: July 03, 2014 elevated WBC at [facility], had infection at that time, trending down. monitor. Leatha Kumar MD Request for sterilization 06/30/20142015 Overview: June 30, 2014 Desires tubal. VALENTIN given. Leatha Kumar MD October 11, 2014 Signed tubal papers. Leatha Kumar MD Anxiety in , antepartum 05/26/2014 01/22/2015 Overview: 05/26/14 - discussed R/B/A & use of medication in , she will cont effexor, stop ativan - KJ Poor support system complicating 05/2601/22/2015 Overview: 05/26/14 - patient is from her - KJ Tobacco use during 05/26/201404/2014 Overview: 05/26/14 - advised on risks & cessation - KJ Obesity complicating 05/26/2014 1 03/24/2014 Overview: 05/26/14 - early GCT today - KJ Generalized abdominal pain 02/21/201307/03 Pelvic pain complicating 02/21/2013 07/05/2013 Frequency of urination 02/21/2013 5 NO SHOW 01/12/2013 07/03/2014 Tobacco abuse 04/12/2012 07/03/2014 Obesity (BMI 30.0-34.9) 04/12/2012 08/20/19 18 Rebound headache 04/12/2012 01/22/2015 Unspecified high-risk 06/19/2008 04/12/2012 Supervision of other normal 12/07/2007 06/19/2008 Other threatened labor, unspecified as to episod e of care 11/29/2005 01/14/2006 Supervision of other normal 08/07/2005 01/14/2006 documented as of this encounter (statuses as of 09/15/2022) [facility] History of Past illness Narrative* Problem Noted Date Diagnosed Date Resolved Date Severe sepsis 09/11/2018 04/05/2019 Last Assessment & Plan: -The patient was tachycardic, tachypnic, febrile, WBC 31 and LA 1.6. -S/p fluid resuscitation, BP is stable -likely 2/2 HCP, CT chest showed Interval decreased cavitary component and size of right upper lobe pulmonary opacities. Interval new cavitation involving left lower lobe opacities and Interval new region of consolidation within the right lower lobe, possible atelectasis/inflammation/infection. -BC is negative, UC is showing Klebsiella/Enterobacter (UA is clean and the patient is asymptomatic, less likely UTI) -Infectious disease is following, nasal MRSA is negative -Repeat blood culture negative -Continue with Meropenem through -Ordered for Midline Respiratory failure 08/13/2018 04/05/19 20 HIT (heparin-induced thrombocytopenia) 08/05/2018 04/05/2019 SANTANA (acute kidney injury) 08/05/2018 Last Assessment & Plan: -AKD developed after her prolonged ICU course -Cr is improving -Daily BMP Nicotine use disorder, F17.2 07/19/2018 04/05/2019 ARDS (adult respiratory distress syndrome) 07/16/2018 04/05/2019 Acute respiratory failure wi th hypoxia and hypercapnia 07/16/2018 04/05/2019 Pneumonia of both lower lobe s due to infectious organism 07/16/2018 04/05/2019 Septic shock 07/16/2018 04/05/2019 Acute encephalopathy 07/16/2018 019 Encounter for sterilization 03/11/2017 03/19/2018 Overview: Risks, benefits and alternatives to sterilization have been discussed with the patient. She declines reversible options including LARC. She understands sterilization is permanent, irreversible, risks of failure, regret and ectopic. In addition she understands there are surgical risks as well. Her questions were answered to her satisfaction and consent was signed. Leatha Kumar MD Gestational diabetes mellitus, class A1 11/17/2016 07/07/2017 Overview: November 17, 2016 Abnormal 3 hr at 11w. Leatha Kumar MD Unplanned 11/03/2016 07/08/19 18 Overview: 11/03/2016This is a surprise . Patient states she got pregnanct on oral contraceptives.The FOB is the father of her previous son. Patient desires PPTL. TKRN Obesity in 11/03/2016 018 Overview: 11/03/2016She is obese. Will plan on GCT @ [facility]. TKRN Tobacco use during , antepartum 11/03/2016 07/07/2017 Overview: 11/03/2016Pt smokes 1/2 pack a day of cigarettes. Discussed risks of smoking during . Advised pt to quit.TKRN Nausea/vomiting in 11/03/2016 07/07/2017 Overview: 11/03/2016 Patient is complaining of nausea and occasional vomiting in . Dietary considerations discussed. Patient has tried Vitamin B6 and unisom with little relief. Dr Kumar wrote order for Phenergan. Advised patient to call/come in if she is unable to keep any food or fluids down in a 24-hour period. TKRN Abnormal glucose complicating 10/12/2014 11/17/2016 Overview: November 08, 2016 Needs 3 hr. Leatha Kumar MD Supervision of other high-risk 07/03/2014 01/22/2015 Overview: July 03, 2014 elevated WBC at [facility], had infection at that time, trending down. monitor. Leatha Kumar MD Request for sterilization 06/30/2014 Overview: June 30, 2014 Desires tubal. VALENTIN given. Leatha Kumar MD October 11, 2014 Signed tubal papers. Leatha Kumar MD Anxiety in , antepartum 05/26/2014 01/22/2015 Overview: 05/26/14 - discussed R/B/A & use of medication in , she will cont effexor, stop ativan - KJ Poor support system complicating 05/26/2014 01/22/2015 Overview: 05/26/14 - patient is from her - KJ Tobacco use during 05/26/2014 01/22/2015 Overview: 05/26/14 - advised on risks & cessation - KJ Obesity complicating 05/26/2014 01/22/2015 Overview: 05/26/14 - early GCT today - KJ Generalized abdominal pain 02/21/2013 0 07/03/2014 Pelvic pain complicating 02/21/2013 07/05/2013 Frequency of urination 02/21/201307/03 NO SHOW 01/12/2013 07/03/2014 Tobacco abuse 04/12/2012 07/03/2014 Obesity (BMI 30.0-34.9) 04/12/201207/23 Rebound headache 04/12/2012 01/22/2015 Unspecified high-risk 06/19/2008 04/12/2012 Supervision of other normal 12/07/2007 06/19/2008 Other threatened labor, unsp ecified as to episode of care 11/29/2005 01/14/2006 Supervision of other normal 08/07/2005 01/14/2006 documented as of this encounter (statuses as of 10/04/2022) [facility] History of Past illness Narrative* Problem Noted Date Diagnosed Date Resolved Date Severe sepsis 09/11/2018 04/05/2019 Last Assessment & Plan: -The patient was tachycardic, tachypnic, febrile, WBC 31 and LA 1.6. -S/p fluid resuscitation, BP is stable -likely 2/2 HCP, CT chest showed Interval decreased cavitary component and size of right upper lobe pulmonary opacities. Interval new cavitation involving left lower lobe opacities and Interval new region of consolidation within the right lower lobe, possible atelectasis/inflammation/infection. -BC is negative, UC is showing Klebsiella/Enterobacter (UA is clean and the patient is asymptomatic, less likely UTI) -Infectious disease is following, nasal MRSA is negative -Repeat blood culture negative -Continue with Meropenem through -Ordered for Midline Respiratory failure 08/13/2018 04/05/19 HIT (heparin-induced thrombocytopenia) 08/05/2018 04/05/2019 SANTANA (acute kidney injury) 08/05/2018 Last Assessment & Plan: -AKD developed after her prolonged ICU course -Cr is improving -Daily BMP Nicotine use disorder, F17.2 07/19/2018 04/05/2019 ARDS (adult respiratory distress syndrome) 07/16/2018 04/05/2019 Acute respiratory failure wi th hypoxia and hypercapnia 07/16/2018 04/05/2019 Pneumonia of both lower lobe s due to infectious organism 07/16/2018 04/05/2019 Septic shock 07/16/2018 04/05/2019 Acute encephalopathy 07/16/2018 019 Encounter for sterilization 03/11/2017 03/19/2018 Overview: Risks, benefits and alternatives to sterilization have been discussed with the patient. She declines reversible options including LARC. She understands sterilization is permanent, irreversible, risks of failure, regret and ectopic. In addition she understands there are surgical risks as well. Her questions were answered to her satisfaction and consent was signed. Leatha Kumar MD Gestational diabetes mellitus, class A1 11/17/2016 07/07/2017 Overview: November 17, 2016 Abnormal 3 hr at 11w. Leatha Kumar MD Unplanned 11/03/2016 07/08/19 18 Overview: 11/03/2016This is a surprise . Patient states she got pregnanct on oral contraceptives.The FOB is the father of her previous son. Patient desires PPTL. TKRN Obesity in 11/03/2016 018 Overview: 11/03/2016She is obese. Will plan on GCT @ [facility]. TKRN Tobacco use during , antepartum 11/03/2016 07/07/2017 Overview: 11/03/2016Pt smokes 1/2 pack a day of cigarettes. Discussed risks of smoking during . Advised pt to quit.TKRN Nausea/vomiting in 11/03/2016 07/07/2017 Overview: 11/03/2016 Patient is complaining of nausea and occasional vomiting in . Dietary considerations discussed. Patient has tried Vitamin B6 and unisom with little relief. Dr Kumar wrote order for Phenergan. Advised patient to call/come in if she is unable to keep any food or fluids down in a 24-hour period. TKRN Abnormal glucose complicating 10/12/2014 11/17/2016 Overview: November 08, 2016 Needs 3 hr. Leatha Kumar MD Supervision of other high-risk 07/03/2014 01/22/2015 Overview: July 03, 2014 elevated WBC at [facility], had infection at that time, trending down. monitor. Leatha Kumar MD Request for sterilization 06/30/2014 Overview: June 30, 2014 Desires tubal. VALENTIN given. Leatha Kumar MD October 11, 2014 Signed tubal papers. Leatha Kumar MD Anxiety in , antepartum 05/26/2014 01/22/2015 Overview: 05/26/14 - discussed R/B/A & use of medication in , she will cont effexor, stop ativan - KJ Poor support system complicating 05/26/2014 01/22/2015 Overview: 05/26/14 - patient is from her - KJ Tobacco use during 05/26/2014 01/22/2015 Overview: 05/26/14 - advised on risks & cessation - KJ Obesity complicating 05/26/2014 01/22/2015 Overview: 05/26/14 - early GCT today - KJ Generalized abdominal pain 02/21/2013 0 07/03/2014 Pelvic pain complicating 02/21/2013 07/05/2013 Frequency of urination 02/21/201307/03 NO SHOW 01/12/2013 07/03/2014 Tobacco abuse 04/12/2012 07/03/2014 Obesity (BMI 30.0-34.9) 04/12/201207/23 Rebound headache 04/12/2012 01/22/2015 Unspecified high-risk 06/19/2008 04/12/2012 Supervision of other normal 12/07/2007 06/19/2008 Other threatened labor, unsp ecified as to episode of care 11/29/2005 01/14/2006 Supervision of other normal 08/07/2005 01/14/2006 documented as of this encounter (statuses as of 10/29/2022) [facility] History of Past illness Narrative* Problem Noted Date Diagnosed Date Resolved Date Severe sepsis 09/11/2018 04/05/2019 Last Assessment & Plan: -The patient was tachycardic, tachypnic, febrile, WBC 31 and LA 1.6. -S/p fluid resuscitation, BP is stable -likely 2/2 HCP, CT chest showed Interval decreased cavitary component and size of right upper lobe pulmonary opacities. Interval new cavitation involving left lower lobe opacities and Interval new region of consolidation within the right lower lobe, possible atelectasis/inflammation/infection. -BC is negative, UC is showing Klebsiella/Enterobacter (UA is clean and the patient is asymptomatic, less likely UTI) -Infectious disease is following, nasal MRSA is negative -Repeat blood culture negative -Continue with Meropenem through -Ordered for Midline Respiratory failure 08/13/2018 04/05/19 20 HIT (heparin-induced thrombocytopenia) 08/05/2018 04/05/2019 SANTANA (acute kidney injury) 08/05/2018 Last Assessment & Plan: -AKD developed after her prolonged ICU course -Cr is improving -Daily BMP Nicotine use disorder, F17.2 07/19/2018 04/05/2019 ARDS (adult respiratory distress syndrome) 07/16/2018 04/05/2019 Acute respiratory failure wi th hypoxia and hypercapnia 07/16/2018 04/05/2019 Pneumonia of both lower lobe s due to infectious organism 07/16/2018 04/05/2019 Septic shock 07/16/2018 04/05/2019 Acute encephalopathy 07/16/2018 019 Encounter for sterilization 03/11/2017 03/19/2018 Overview: Risks, benefits and alternatives to sterilization have been discussed with the patient. She declines reversible options including LARC. She understands sterilization is permanent, irreversible, risks of failure, regret and ectopic. In addition she understands there are surgical risks as well. Her questions were answered to her satisfaction and consent was signed. Leatha Kumar MD Gestational diabetes mellitus, class A1 11/17/2016 07/07/2017 Overview: November 17, 2016 Abnormal 3 hr at 11w. Leatha Kumar MD Unplanned 11/03/2016 07/08/19 18 Overview: 11/03/2016This is a surprise . Patient states she got pregnanct on oral contraceptives.The FOB is the father of her previous son. Patient desires PPTL. TKRN Obesity in 11/03/2016 018 Overview: 11/03/2016She is obese. Will plan on GCT @ [facility]. TKRN Tobacco use during , antepartum 11/03/2016 07/07/2017 Overview: 11/03/2016Pt smokes 1/2 pack a day of cigarettes. Discussed risks of smoking during . Advised pt to quit.TKRN Nausea/vomiting in 11/03/2016 07/07/2017 Overview: 11/03/2016 Patient is complaining of nausea and occasional vomiting in . Dietary considerations discussed. Patient has tried Vitamin B6 and unisom with little relief. Dr Kumar wrote order for Phenergan. Advised patient to call/come in if she is unable to keep any food or fluids down in a 24-hour period. TKRN Abnormal glucose complicating 10/12/2014 11/17/2016 Overview: November 08, 2016 Needs 3 hr. Leatha Kumar MD Supervision of other high-risk 07/03/2014 01/22/2015 Overview: July 03, 2014 elevated WBC at [facility], had infection at that time, trending down. monitor. Leatha Kumar MD Request for sterilization 06/30/2014 Overview: June 30, 2014 Desires tubal. VALENTIN given. Leatha Kumar MD October 11, 2014 Signed tubal papers. Leatha Kumar MD Anxiety in , antepartum 05/26/2014 01/22/2015 Overview: 05/26/14 - discussed R/B/A & use of medication in , she will cont effexor, stop ativan - KJ Poor support system complicating 05/26/2014 01/22/2015 Overview: 05/26/14 - patient is from her - KJ Tobacco use during 05/26/2014 01/22/2015 Overview: 05/26/14 - advised on risks & cessation - KJ Obesity complicating 05/26/2014 01/22/2015 Overview: 05/26/14 - early GCT today - KJ Generalized abdominal pain 02/21/2013 0 07/03/2014 Pelvic pain complicating 02/21/2013 07/05/2013 Frequency of urination 02/21/201307/03 NO SHOW 01/12/2013 07/03/2014 Tobacco abuse 04/12/2012 07/03/2014 Obesity (BMI 30.0-34.9) 04/12/201207/23 Rebound headache 04/12/2012 01/22/2015 Unspecified high-risk 06/19/2008 04/12/2012 Supervision of other normal 12/07/2007 06/19/2008 Other threatened labor, unsp ecified as to episode of care 11/29/2005 01/14/2006 Supervision of other normal 08/07/2005 01/14/2006 documented as of this encounter (statuses as of 12/01/2022) [facility] History of Past illness Narrative* Problem Noted Date Diagnosed Date Resolved Date Severe sepsis 09/11/2018 04/05/2019 Last Assessment & Plan: -The patient was tachycardic, tachypnic, febrile, WBC 31 and LA 1.6. -S/p fluid resuscitation, BP is stable -likely 2/2 HCP, CT chest showed Interval decreased cavitary component and size of right upper lobe pulmonary opacities. Interval new cavitation involving left lower lobe opacities and Interval new region of consolidation within the right lower lobe, possible atelectasis/inflammation/infection. -BC is negative, UC is showing Klebsiella/Enterobacter (UA is clean and the patient is asymptomatic, less likely UTI) -Infectious disease is following, nasal MRSA is negative -Repeat blood culture negative -Continue with Meropenem through -Ordered for Midline Respiratory failure 08/13/2018 04/05/19 20 HIT (heparin-induced thrombocytopenia) 08/05/2018 04/05/2019 SANTANA (acute kidney injury) 08/05/2018 Last Assessment & Plan: -AKD developed after her prolonged ICU course -Cr is improving -Daily BMP Nicotine use disorder, F17.2 07/19/2018 04/05/2019 ARDS (adult respiratory distress syndrome) 07/16/2018 04/05/2019 Acute respiratory failure wi th hypoxia and hypercapnia 07/16/2018 04/05/2019 Pneumonia of both lower lobe s due to infectious organism 07/16/2018 04/05/2019 Septic shock 07/16/2018 04/05/2019 Acute encephalopathy 07/16/2018 019 Encounter for sterilization 03/11/2017 03/19/2018 Overview: Risks, benefits and alternatives to sterilization have been discussed with the patient. She declines reversible options including LARC. She understands sterilization is permanent, irreversible, risks of failure, regret and ectopic. In addition she understands there are surgical risks as well. Her questions were answered to her satisfaction and consent was signed. Leatha Kumar MD Gestational diabetes mellitus, class A1 11/17/2016 07/07/2017 Overview: November 17, 2016 Abnormal 3 hr at 11w. Leatha Kumar MD Unplanned 11/03/2016 07/08/19 18 Overview: 11/03/2016This is a surprise . Patient states she got pregnanct on oral contraceptives.The FOB is the father of her previous son. Patient desires PPTL. TKRN Obesity in 11/03/2016 018 Overview: 11/03/2016She is obese. Will plan on GCT @ [facility]. TKRN Tobacco use during , antepartum 11/03/2016 07/07/2017 Overview: 11/03/2016Pt smokes 1/2 pack a day of cigarettes. Discussed risks of smoking during . Advised pt to quit.TKRN Nausea/vomiting in 11/03/2016 07/07/2017 Overview: 11/03/2016 Patient is complaining of nausea and occasional vomiting in . Dietary considerations discussed. Patient has tried Vitamin B6 and unisom with little relief. Dr Kumar wrote order for Phenergan. Advised patient to call/come in if she is unable to keep any food or fluids down in a 24-hour period. TKRN Abnormal glucose complicating 10/12/2014 11/17/2016 Overview: November 08, 2016 Needs 3 hr. Leatha Kumar MD Supervision of other high-risk 07/03/2014 01/22/2015 Overview: July 03, 2014 elevated WBC at [facility], had infection at that time, trending down. monitor. Leatha Kumar MD Request for sterilization 06/30/2014 Overview: June 30, 2014 Desires tubal. VALENTIN given. Leatha Kumar MD October 11, 2014 Signed tubal papers. Leatha Kumar MD Anxiety in , antepartum 05/26/2014 01/22/2015 Overview: 05/26/14 - discussed R/B/A & use of medication in , she will cont effexor, stop ativan - KJ Poor support system complicating 05/26/2014 01/22/2015 Overview: 05/26/14 - patient is from her - KJ Tobacco use during 05/26/2014 01/22/2015 Overview: 05/26/14 - advised on risks & cessation - KJ Obesity complicating 05/26/2014 01/22/2015 Overview: 05/26/14 - early GCT today - KJ Generalized abdominal pain 02/21/2013 0 07/03/2014 Pelvic pain complicating 02/21/2013 07/05/2013 Frequency of urination 02/21/201307/03 NO SHOW 01/12/2013 07/03/2014 Tobacco abuse 04/12/2012 07/03/2014 Obesity (BMI 30.0-34.9) 04/12/201207/23 Rebound headache 04/12/2012 01/22/2015 Unspecified high-risk 06/19/2008 04/12/2012 Supervision of other normal 12/07/2007 06/19/2008 Other threatened labor, unsp ecified as to episode of care 11/29/2005 01/14/2006 Supervision of other normal 08/07/2005 01/14/2006 documented as of this encounter (statuses as of 12/16/2022) [facility] History of Past illness Narrative* Problem Noted Date Diagnosed Date Resolved Date Severe sepsis 09/11/2018 04/05/2019 Last Assessment & Plan: -The patient was tachycardic, tachypnic, febrile, WBC 31 and LA 1.6. -S/p fluid resuscitation, BP is stable -likely 2/2 HCP, CT chest showed Interval decreased cavitary component and size of right upper lobe pulmonary opacities. Interval new cavitation involving left lower lobe opacities and Interval new region of consolidation within the right lower lobe, possible atelectasis/inflammation/infection. -BC is negative, UC is showing Klebsiella/Enterobacter (UA is clean and the patient is asymptomatic, less likely UTI) -Infectious disease is following, nasal MRSA is negative -Repeat blood culture negative -Continue with Meropenem through -Ordered for Midline Respiratory failure 08/13/2018 04/05/19 20 HIT (heparin-induced thrombocytopenia) 08/05/2018 04/05/2019 SANTANA (acute kidney injury) 08/05/2018 Last Assessment & Plan: -AKD developed after her prolonged ICU course -Cr is improving -Daily BMP Nicotine use disorder, F17.2 07/19/2018 04/05/2019 ARDS (adult respiratory distress syndrome) 07/16/2018 04/05/2019 Acute respiratory failure wi th hypoxia and hypercapnia 07/16/2018 04/05/2019 Pneumonia of both lower lobe s due to infectious organism 07/16/2018 04/05/2019 Septic shock 07/16/2018 04/05/2019 Acute encephalopathy 07/16/2018 019 Encounter for sterilization 03/11/2017 03/19/2018 Overview: Risks, benefits and alternatives to sterilization have been discussed with the patient. She declines reversible options including LARC. She understands sterilization is permanent, irreversible, risks of failure, regret and ectopic. In addition she understands there are surgical risks as well. Her questions were answered to her satisfaction and consent was signed. Leatha Kumar MD Gestational diabetes mellitus, class A1 11/17/2016 07/07/2017 Overview: November 17, 2016 Abnormal 3 hr at 11w. Leatha Kumar MD Unplanned 11/03/2016 07/08/19 18 Overview: 11/03/2016This is a surprise . Patient states she got pregnanct on oral contraceptives.The FOB is the father of her previous son. Patient desires PPTL. TKRN Obesity in 11/03/2016 018 Overview: 11/03/2016She is obese. Will plan on GCT @ [facility]. TKRN Tobacco use during , antepartum 11/03/2016 07/07/2017 Overview: 11/03/2016Pt smokes 1/2 pack a day of cigarettes. Discussed risks of smoking during . Advised pt to quit.TKRN Nausea/vomiting in 11/03/2016 07/07/2017 Overview: 11/03/2016 Patient is complaining of nausea and occasional vomiting in . Dietary considerations discussed. Patient has tried Vitamin B6 and unisom with little relief. Dr Kumar wrote order for Phenergan. Advised patient to call/come in if she is unable to keep any food or fluids down in a 24-hour period. TKRN Abnormal glucose complicating 10/12/2014 11/17/2016 Overview: November 08, 2016 Needs 3 hr. Leatha Kumar MD Supervision of other high-risk 07/03/2014 01/22/2015 Overview: July 03, 2014 elevated WBC at [facility], had infection at that time, trending down. monitor. Leatha Kumar MD Request for sterilization 06/30/2014 Overview: June 30, 2014 Desires tubal. VALENTIN given. Leatha Kumar MD October 11, 2014 Signed tubal papers. Leatha Kumar MD Anxiety in , antepartum 05/26/2014 01/22/2015 Overview: 05/26/14 - discussed R/B/A & use of medication in , she will cont effexor, stop ativan - KJ Poor support system complicating 05/26/2014 01/22/2015 Overview: 05/26/14 - patient is from her - KJ Tobacco use during 05/26/2014 01/22/2015 Overview: 05/26/14 - advised on risks & cessation - KJ Obesity complicating 05/26/2014 01/22/2015 Overview: 05/26/14 - early GCT today - KJ Generalized abdominal pain 02/21/2013 0 07/03/2014 Pelvic pain complicating 02/21/2013 07/05/2013 Frequency of urination 02/21/201307/03 NO SHOW 01/12/2013 07/03/2014 Tobacco abuse 04/12/2012 07/03/2014 Obesity (BMI 30.0-34.9) 04/12/201207/23 Rebound headache 04/12/2012 01/22/2015 Unspecified high-risk 06/19/2008 04/12/2012 Supervision of other normal 12/07/2007 06/19/2008 Other threatened labor, unsp ecified as to episode of care 11/29/2005 01/14/2006 Supervision of other normal 08/07/2005 01/14/2006 documented as of this encounter (statuses as of 01/21/2023) [facility] History of Past illness Narrative* Problem Noted Date Diagnosed Date Resolved Date Severe sepsis 09/11/2018 04/05/2019 Last Assessment & Plan: -The patient was tachycardic, tachypnic, febrile, WBC 31 and LA 1.6. -S/p fluid resuscitation, BP is stable -likely 2/2 HCP, CT chest showed Interval decreased cavitary component and size of right upper lobe pulmonary opacities. Interval new cavitation involving left lower lobe opacities and Interval new region of consolidation within the right lower lobe, possible atelectasis/inflammation/infection. 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 thrombocytopenia) 08/05/2018 04/05/2019 SANTANA (acute kidney injury) 08/05/2018 Last Assessment & Plan: -AKD developed after her prolonged ICU course -Cr is improving -Daily BMP Nicotine use disorder, F17.2 07/19/2018 04/05/2019 ARDS (adult respiratory distress syndrome) 07/16/2018 04/05/2019 Acute respiratory failure wi th hypoxia and hypercapnia 07/16/2018 04/05/2019 Pneumonia of both lower lobe s due to infectious organism 07/16/2018 04/05/2019 Septic shock 07/16/2018 04/05/2019 Acute encephalopathy 07/16/2018 019 Encounter for sterilization 03/11/2017 03/19/2018 Overview: Risks, benefits and alternatives to sterilization have been discussed with the patient. She declines reversible options including LARC. She understands sterilization is permanent, irreversible, risks of failure, regret and ectopic. In addition she understands there are surgical risks as well. Her questions were answered to her satisfaction and consent was signed. Leatha Kumar MD Gestational diabetes mellitus, class A1 11/17/2016 07/07/2017 Overview: November 17, 2016 Abnormal 3 hr at 11w. Leatha Kumar MD Unplanned 11/03/2016 07/08/19 18 Overview: 11/03/2016This is a surprise . Patient states she got pregnanct on oral contraceptives.The FOB is the father of her previous son. Patient desires PPTL. TKRN Obesity in 11/03/2016 018 Overview: 11/03/2016She is obese. Will plan on GCT @ [facility]. TKRN Tobacco use during , antepartum 11/03/2016 07/07/2017 Overview: 11/03/2016Pt smokes 1/2 pack a day of cigarettes. Discussed risks of smoking during . Advised pt to quit.TKRN Nausea/vomiting in 11/03/2016 07/07/2017 Overview: 11/03/2016 Patient is complaining of nausea and occasional vomiting in . Dietary considerations discussed. Patient has tried Vitamin B6 and unisom with little relief. Dr Kumar wrote order for Phenergan. Advised patient to call/come in if she is unable to keep any food or fluids down in a 24-hour period. TKRN Abnormal glucose complicating 10/12/2014 11/17/2016 Overview: November 08, 2016 Needs 3 hr. Leatha Kumar MD Supervision of other high-risk 07/03/2014 01/22/2015 Overview: July 03, 2014 elevated WBC at [facility], had infection at that time, trending down. monitor. Leatha Kumar MD Request for sterilization 06/30/2014 Overview: June 30, 2014 Desires tubal. VALENTIN given. Leatha Kumar MD October 11, 2014 Signed tubal papers. Leatha Kumar MD Anxiety in , antepartum 05/26/2014 01/22/2015 Overview: 05/26/14 - discussed R/B/A & use of medication in , she will cont effexor, stop ativan - KJ Poor support system complicating 05/26/2014 01/22/2015 Overview: 05/26/14 - patient is from her - KJ Tobacco use during 05/26/2014 01/22/2015 Overview: 05/26/14 - advised on risks & cessation - KJ Obesity complicating 05/26/2014 01/22/2015 Overview: 05/26/14 - early GCT today - KJ Generalized abdominal pain 02/21/2013 0 07/03/2014 Pelvic pain complicating 02/21/2013 07/05/2013 Frequency of urination 02/21/201307/03 NO SHOW 01/12/2013 07/03/2014 Tobacco abuse 04/12/2012 07/03/2014 Obesity (BMI 30.0-34.9) 04/12/201207/23 Rebound headache 04/12/2012 01/22/2015 Unspecified high-risk 06/19/2008 04/12/2012 Supervision of other normal 12/07/2007 06/19/2008 Other threatened labor, unsp ecified as to episode of care 11/29/2005 01/14/2006 Supervision of other normal 08/07/2005 01/14/2006 documented as of this encounter (statuses as of 01/21/2023) [facility] History of Past illness Narrative* Problem Noted Date Diagnosed Date Resolved Date Severe sepsis 09/11/2018 04/05/2019 Last Assessment & Plan: -The patient was tachycardic, tachypnic, febrile, WBC 31 and LA 1.6. -S/p fluid resuscitation, BP is stable -likely 2/2 HCP, CT chest showed Interval decreased cavitary component and size of right upper lobe pulmonary opacities. Interval new cavitation involving left lower lobe opacities and Interval new region of consolidation within the right lower lobe, possible atelectasis/inflammation/infection. -BC is negative, UC is showing Klebsiella/Enterobacter (UA is clean and the patient is asymptomatic, less likely UTI) -Infectious disease is following, nasal MRSA is negative -Repeat blood culture negative -Continue with Meropenem through -Ordered for Midline Respiratory failure 08/13/2018 04/05/19 20 HIT (heparin-induced thrombocytopenia) 08/05/2018 04/05/2019 SANTANA (acute kidney injury) 08/05/2018 Last Assessment & Plan: -AKD developed after her prolonged ICU course -Cr is improving -Daily BMP Nicotine use disorder, F17.2 07/19/2018 04/05/2019 ARDS (adult respiratory distress syndrome) 07/16/2018 04/05/2019 Acute respiratory failure wi th hypoxia and hypercapnia 07/16/2018 04/05/2019 Pneumonia of both lower lobe s due to infectious organism 07/16/2018 04/05/2019 Septic shock 07/16/2018 04/05/2019 Acute encephalopathy 07/16/2018 019 Encounter for sterilization 03/11/2017 03/19/2018 Overview: Risks, benefits and alternatives to sterilization have been discussed with the patient. She declines reversible options including LARC. She understands sterilization is permanent, irreversible, risks of failure, regret and ectopic. In addition she understands there are surgical risks as well. Her questions were answered to her satisfaction and consent was signed. Leatha Kumar MD Gestational diabetes mellitus, class A1 11/17/2016 07/07/2017 Overview: November 17, 2016 Abnormal 3 hr at 11w. Leatha Kumar MD Unplanned 11/03/2016 07/08/19 18 Overview: 11/03/2016This is a surprise . Patient states she got pregnanct on oral contraceptives.The FOB is the father of her previous son. Patient desires PPTL. TKRN Obesity in 11/03/2016 018 Overview: 11/03/2016She is obese. Will plan on GCT @ [facility]. TKRN Tobacco use during , antepartum 11/03/2016 07/07/2017 Overview: 11/03/2016Pt smokes 1/2 pack a day of cigarettes. Discussed risks of smoking during . Advised pt to quit.TKRN Nausea/vomiting in 11/03/2016 07/07/2017 Overview: 11/03/2016 Patient is complaining of nausea and occasional vomiting in . Dietary considerations discussed. Patient has tried Vitamin B6 and unisom with little relief. Dr Kumar wrote order for Phenergan. Advised patient to call/come in if she is unable to keep any food or fluids down in a 24-hour period. TKRN Abnormal glucose complicating 10/12/2014 11/17/2016 Overview: November 08, 2016 Needs 3 hr. Leatha Kumar MD Supervision of other high-risk 07/03/2014 01/22/2015 Overview: July 03, 2014 elevated WBC at [facility], had infection at that time, trending down. monitor. Leatha Kumar MD Request for sterilization 06/30/2014 Overview: June 30, 2014 Desires tubal. VALENTIN given. Leatha Kumar MD October 11, 2014 Signed tubal papers. Leatha Kumar MD Anxiety in , antepartum 05/26/2014 01/22/2015 Overview: 05/26/14 - discussed R/B/A & use of medication in , she will cont effexor, stop ativan - KJ Poor support system complicating 05/26/2014 01/22/2015 Overview: 05/26/14 - patient is from her - KJ Tobacco use during 05/26/2014 01/22/2015 Overview: 05/26/14 - advised on risks & cessation - KJ Obesity complicating 05/26/2014 01/22/2015 Overview: 05/26/14 - early GCT today - KJ Generalized abdominal pain 02/21/2013 0 07/03/2014 Pelvic pain complicating 02/21/2013 07/05/2013 Frequency of urination 02/21/201307/03 NO SHOW 01/12/2013 07/03/2014 Tobacco abuse 04/12/2012 07/03/2014 Obesity (BMI 30.0-34.9) 04/12/201207/23 Rebound headache 04/12/2012 01/22/2015 Unspecified high-risk 06/19/2008 04/12/2012 Supervision of other normal 12/07/2007 06/19/2008 Other threatened labor, unsp ecified as to episode of care 11/29/2005 01/14/2006 Supervision of other normal 08/07/2005 01/14/2006 documented as of this encounter (statuses as of 02/24/2023) [facility] History of Past illness Narrative* Problem Noted Date Diagnosed Date Resolved Date Severe sepsis 09/11/2018 04/05/2019 Last Assessment & Plan: -The patient was tachycardic, tachypnic, febrile, WBC 31 and LA 1.6. -S/p fluid resuscitation, BP is stable -likely 2/2 HCP, CT chest showed Interval decreased cavitary component and size of right upper lobe pulmonary opacities. Interval new cavitation involving left lower lobe opacities and Interval new region of consolidation within the right lower lobe, possible atelectasis/inflammation/infection. -BC is negative, UC is showing Klebsiella/Enterobacter (UA is clean and the patient is asymptomatic, less likely UTI) -Infectious disease is following, nasal MRSA is negative -Repeat blood culture negative -Continue with Meropenem through -Ordered for Midline Respiratory failure 08/13/2018 04/05/19 20 HIT (heparin-induced thrombocytopenia) 08/05/2018 04/05/2019 SANTANA (acute kidney injury) 08/05/2018 Last Assessment & Plan: -AKD developed after her prolonged ICU course -Cr is improving -Daily BMP Nicotine use disorder, F17.2 07/19/2018 04/05/2019 ARDS (adult respiratory distress syndrome) 07/16/2018 04/05/2019 Acute respiratory failure wi th hypoxia and hypercapnia 07/16/2018 04/05/2019 Pneumonia of both lower lobe s due to infectious organism 07/16/2018 04/05/2019 Septic shock 07/16/2018 04/05/2019 Acute encephalopathy 07/16/2018 019 Encounter for sterilization 03/11/2017 03/19/2018 Overview: Risks, benefits and alternatives to sterilization have been discussed with the patient. She declines reversible options including LARC. She understands sterilization is permanent, irreversible, risks of failure, regret and ectopic. In addition she understands there are surgical risks as well. Her questions were answered to her satisfaction and consent was signed. Leatha Kumar MD Gestational diabetes mellitus, class A1 11/17/2016 07/07/2017 Overview: November 17, 2016 Abnormal 3 hr at 11w. Leatha Kumar MD Unplanned 11/03/2016 07/08/19 18 Overview: 11/03/2016This is a surprise . Patient states she got pregnanct on oral contraceptives.The FOB is the father of her previous son. Patient desires PPTL. TKRN Obesity in 11/03/2016 018 Overview: 11/03/2016She is obese. Will plan on GCT @ [facility]. TKRN Tobacco use during , antepartum 11/03/2016 07/07/2017 Overview: 11/03/2016Pt smokes 1/2 pack a day of cigarettes. Discussed risks of smoking during . Advised pt to quit.TKRN Nausea/vomiting in 11/03/2016 07/07/2017 Overview: 11/03/2016 Patient is complaining of nausea and occasional vomiting in . Dietary considerations discussed. Patient has tried Vitamin B6 and unisom with little relief. Dr Kumar wrote order for Phenergan. Advised patient to call/come in if she is unable to keep any food or fluids down in a 24-hour period. TKRN Abnormal glucose complicating 10/12/2014 11/17/2016 Overview: November 08, 2016 Needs 3 hr. Leatha Kumar MD Supervision of other high-risk 07/03/2014 01/22/2015 Overview: July 03, 2014 elevated WBC at [facility], had infection at that time, trending down. monitor. Leatha Kumar MD Request for sterilization 06/30/2014 Overview: June 30, 2014 Desires tubal. VALENTIN given. Leatha Kumar MD October 11, 2014 Signed tubal papers. Leatha Kumar MD Anxiety in , antepartum 05/26/2014 01/22/2015 Overview: 05/26/14 - discussed R/B/A & use of medication in , she will cont effexor, stop ativan - KJ Poor support system complicating 05/26/2014 01/22/2015 Overview: 05/26/14 - patient is from her - KJ Tobacco use during 05/26/2014 01/22/2015 Overview: 05/26/14 - advised on risks & cessation - KJ Obesity complicating 05/26/2014 01/22/2015 Overview: 05/26/14 - early GCT today - KJ Generalized abdominal pain 02/21/2013 0 07/03/2014 Pelvic pain complicating 02/21/2013 07/05/2013 Frequency of urination 02/21/201307/03 NO SHOW 01/12/2013 07/03/2014 Tobacco abuse 04/12/2012 07/03/2014 Obesity (BMI 30.0-34.9) 04/12/201207/23 Rebound headache 04/12/2012 01/22/2015 Unspecified high-risk 06/19/2008 04/12/2012 Supervision of other normal 12/07/2007 06/19/2008 Other threatened labor, unsp ecified as to episode of care 11/29/2005 01/14/2006 Supervision of other normal 08/07/2005 01/14/2006 documented as of this encounter (statuses as of 03/05/2023) [facility] History of Past illness Narrative* Problem Noted Date Diagnosed Date Resolved Date Severe sepsis 09/11/2018 04/05/2019 Last Assessment & Plan: -The patient was tachycardic, tachypnic, febrile, WBC 31 and LA 1.6. -S/p fluid resuscitation, BP is stable -likely 2/2 HCP, CT chest showed Interval decreased cavitary component and size of right upper lobe pulmonary opacities. Interval new cavitation involving left lower lobe opacities and Interval new region of consolidation within the right lower lobe, possible atelectasis/inflammation/infection. -BC is negative, UC is showing Klebsiella/Enterobacter (UA is clean and the patient is asymptomatic, less likely UTI) -Infectious disease is following, nasal MRSA is negative -Repeat blood culture negative -Continue with Meropenem through -Ordered for Midline Respiratory failure 08/13/2018 04/05/19 20 HIT (heparin-induced thrombocytopenia) 08/05/2018 04/05/2019 SANTANA (acute kidney injury) 08/05/2018 Last Assessment & Plan: -AKD developed after her prolonged ICU course -Cr is improving -Daily BMP Nicotine use disorder, F17.2 07/19/2018 04/05/2019 ARDS (adult respiratory distress syndrome) 07/16/2018 04/05/2019 Acute respiratory failure wi th hypoxia and hypercapnia 07/16/2018 04/05/2019 Pneumonia of both lower lobe s due to infectious organism 07/16/2018 04/05/2019 Septic shock 07/16/2018 04/05/2019 Acute encephalopathy 07/16/2018 019 Encounter for sterilization 03/11/2017 03/19/2018 Overview: Risks, benefits and alternatives to sterilization have been discussed with the patient. She declines reversible options including LARC. She understands sterilization is permanent, irreversible, risks of failure, regret and ectopic. In addition she understands there are surgical risks as well. Her questions were answered to her satisfaction and consent was signed. Leatha Kumar MD Gestational diabetes mellitus, class A1 11/17/2016 07/07/2017 Overview: November 17, 2016 Abnormal 3 hr at 11w. Leatha Kumar MD Unplanned 11/03/2016 07/08/19 18 Overview: 11/03/2016This is a surprise . Patient states she got pregnanct on oral contraceptives.The FOB is the father of her previous son. Patient desires PPTL. TKRN Obesity in 11/03/2016 018 Overview: 11/03/2016She is obese. Will plan on GCT @ [facility]. TKRN Tobacco use during , antepartum 11/03/2016 07/07/2017 Overview: 11/03/2016Pt smokes 1/2 pack a day of cigarettes. Discussed risks of smoking during . Advised pt to quit.TKRN Nausea/vomiting in 11/03/2016 07/07/2017 Overview: 11/03/2016 Patient is complaining of nausea and occasional vomiting in . Dietary considerations discussed. Patient has tried Vitamin B6 and unisom with little relief. Dr Kumar wrote order for Phenergan. Advised patient to call/come in if she is unable to keep any food or fluids down in a 24-hour period. TKRN Abnormal glucose complicating 10/12/2014 11/17/2016 Overview: November 08, 2016 Needs 3 hr. Leatha Kumar MD Supervision of other high-risk 07/03/2014 01/22/2015 Overview: July 03, 2014 elevated WBC at [facility], had infection at that time, trending down. monitor. Leatha Kumar MD Request for sterilization 06/30/2014 Overview: June 30, 2014 Desires tubal. VALENTIN given. Leatha Kumar MD October 11, 2014 Signed tubal papers. Leatha Kumar MD Anxiety in , antepartum 05/26/2014 01/22/2015 Overview: 05/26/14 - discussed R/B/A & use of medication in , she will cont effexor, stop ativan - KJ Poor support system complicating 05/26/2014 01/22/2015 Overview: 05/26/14 - patient is from her - KJ Tobacco use during 05/26/2014 01/22/2015 Overview: 05/26/14 - advised on risks & cessation - KJ Obesity complicating 05/26/2014 01/22/2015 Overview: 05/26/14 - early GCT today - KJ Generalized abdominal pain 02/21/2013 0 07/03/2014 Pelvic pain complicating 02/21/2013 07/05/2013 Frequency of urination 02/21/201307/03 NO SHOW 01/12/2013 07/03/2014 Tobacco abuse 04/12/2012 07/03/2014 Obesity (BMI 30.0-34.9) 04/12/201207/23 Rebound headache 04/12/2012 01/22/2015 Unspecified high-risk 06/19/2008 04/12/2012 Supervision of other normal 12/07/2007 06/19/2008 Other threatened labor, unsp ecified as to episode of care 11/29/2005 01/14/2006 Supervision of other normal 08/07/2005 01/14/2006 documented as of this encounter (statuses as of 04/29/2023) [facility] History of Past illness Narrative* Problem Noted Date Diagnosed Date Resolved Date Severe sepsis 09/11/2018 04/05/2019 Last Assessment & Plan: -The patient was tachycardic, tachypnic, febrile, WBC 31 and LA 1.6. -S/p fluid resuscitation, BP is stable -likely 2/2 HCP, CT chest showed Interval decreased cavitary component and size of right upper lobe pulmonary opacities. Interval new cavitation involving left lower lobe opacities and Interval new region of consolidation within the right lower lobe, possible atelectasis/inflammation/infection. -BC is negative, UC is showing Klebsiella/Enterobacter (UA is clean and the patient is asymptomatic, less likely UTI) -Infectious disease is following, nasal MRSA is negative -Repeat blood culture negative -Continue with Meropenem through -Ordered for Midline Respiratory failure 08/13/2018 04/05/19 20 HIT (heparin-induced thrombocytopenia) 08/05/2018 04/05/2019 SANTANA (acute kidney injury) 08/05/2018 Last Assessment & Plan: -AKD developed after her prolonged ICU course -Cr is improving -Daily BMP Nicotine use disorder, F17.2 07/19/2018 04/05/2019 ARDS (adult respiratory distress syndrome) 07/16/2018 04/05/2019 Acute respiratory failure wi th hypoxia and hypercapnia 07/16/2018 04/05/2019 Pneumonia of both lower lobe s due to infectious organism 07/16/2018 04/05/2019 Septic shock 07/16/2018 04/05/2019 Acute encephalopathy 07/16/2018 019 Encounter for sterilization 03/11/2017 03/19/2018 Overview: Risks, benefits and alternatives to sterilization have been discussed with the patient. She declines reversible options including LARC. She understands sterilization is permanent, irreversible, risks of failure, regret and ectopic. In addition she understands there are surgical risks as well. Her questions were answered to her satisfaction and consent was signed. Leatha Kumar MD Gestational diabetes mellitus, class A1 11/17/2016 07/07/2017 Overview: November 17, 2016 Abnormal 3 hr at 11w. Leatha Kumar MD Unplanned 11/03/2016 07/08/19 18 Overview: 11/03/2016This is a surprise . Patient states she got pregnanct on oral contraceptives.The FOB is the father of her previous son. Patient desires PPTL. TKRN Obesity in 11/03/2016 018 Overview: 11/03/2016She is obese. Will plan on GCT @ [facility]. TKRN Tobacco use during , antepartum 11/03/2016 07/07/2017 Overview: 11/03/2016Pt smokes 1/2 pack a day of cigarettes. Discussed risks of smoking during . Advised pt to quit.TKRN Nausea/vomiting in 11/03/2016 07/07/2017 Overview: 11/03/2016 Patient is complaining of nausea and occasional vomiting in . Dietary considerations discussed. Patient has tried Vitamin B6 and unisom with little relief. Dr Kumar wrote order for Phenergan. Advised patient to call/come in if she is unable to keep any food or fluids down in a 24-hour period. TKRN Abnormal glucose complicating 10/12/2014 11/17/2016 Overview: November 08, 2016 Needs 3 hr. Leatha Kumar MD Supervision of other high-risk 07/03/2014 01/22/2015 Overview: July 03, 2014 elevated WBC at [facility], had infection at that time, trending down. monitor. Leatha Kumar MD Request for sterilization 06/30/2014 Overview: June 30, 2014 Desires tubal. VALENTIN given. Leatha Kumar MD October 11, 2014 Signed tubal papers. Leatha Kumar MD Anxiety in , antepartum 05/26/2014 01/22/2015 Overview: 05/26/14 - discussed R/B/A & use of medication in , she will cont effexor, stop ativan - KJ Poor support system complicating 05/26/2014 01/22/2015 Overview: 05/26/14 - patient is from her - KJ Tobacco use during 05/26/2014 01/22/2015 Overview: 05/26/14 - advised on risks & cessation - KJ Obesity complicating 05/26/2014 01/22/2015 Overview: 05/26/14 - early GCT today - KJ Generalized abdominal pain 02/21/2013 0 07/03/2014 Pelvic pain complicating 02/21/2013 07/05/2013 Frequency of urination 02/21/201307/03 NO SHOW 01/12/2013 07/03/2014 Tobacco abuse 04/12/2012 07/03/2014 Obesity (BMI 30.0-34.9) 04/12/201207/23 Rebound headache 04/12/2012 01/22/2015 Unspecified high-risk 06/19/2008 04/12/2012 Supervision of other normal 12/07/2007 06/19/2008 Other threatened labor, unsp ecified as to episode of care 11/29/2005 01/14/2006 Supervision of other normal 08/07/2005 01/14/2006 documented as of this encounter (statuses as of 05/22/2023) [facility] History of Past illness Narrative* Problem Noted Date Diagnosed Date Resolved Date Severe sepsis 09/11/2018 04/05/2019 Last Assessment & Plan: -The patient was tachycardic, tachypnic, febrile, WBC 31 and LA 1.6. -S/p fluid resuscitation, BP is stable -likely 2/2 HCP, CT chest showed Interval decreased cavitary component and size of right upper lobe pulmonary opacities. Interval new cavitation involving left lower lobe opacities and Interval new region of consolidation within the right lower lobe, possible atelectasis/inflammation/infection. -BC is negative, UC is showing Klebsiella/Enterobacter (UA is clean and the patient is asymptomatic, less likely UTI) -Infectious disease is following, nasal MRSA is negative -Repeat blood culture negative -Continue with Meropenem through -Ordered for Midline Respiratory failure 08/13/2018 04/05/19 20 HIT (heparin-induced thrombocytopenia) 08/05/2018 04/05/2019 SANTANA (acute kidney injury) 08/05/2018 Last Assessment & Plan: -AKD developed after her prolonged ICU course -Cr is improving -Daily BMP Nicotine use disorder, F17.2 07/19/2018 04/05/2019 ARDS (adult respiratory distress syndrome) 07/16/2018 04/05/2019 Acute respiratory failure wi th hypoxia and hypercapnia 07/16/2018 04/05/2019 Pneumonia of both lower lobe s due to infectious organism 07/16/2018 04/05/2019 Septic shock 07/16/2018 04/05/2019 Acute encephalopathy 07/16/2018 019 Encounter for sterilization 03/11/2017 03/19/2018 Overview: Risks, benefits and alternatives to sterilization have been discussed with the patient. She declines reversible options including LARC. She understands sterilization is permanent, irreversible, risks of failure, regret and ectopic. In addition she understands there are surgical risks as well. Her questions were answered to her satisfaction and consent was signed. Leatha Kumar MD Gestational diabetes mellitus, class A1 11/17/2016 07/07/2017 Overview: November 17, 2016 Abnormal 3 hr at 11w. Leatha Kumar MD Unplanned 11/03/2016 07/08/19 18 Overview: 11/03/2016This is a surprise . Patient states she got pregnanct on oral contraceptives.The FOB is the father of her previous son. Patient desires PPTL. TKRN Obesity in 11/03/2016 018 Overview: 11/03/2016She is obese. Will plan on GCT @ [facility]. TKRN Tobacco use during , antepartum 11/03/2016 07/07/2017 Overview: 11/03/2016Pt smokes 1/2 pack a day of cigarettes. Discussed risks of smoking during . Advised pt to quit.TKRN Nausea/vomiting in 11/03/2016 07/07/2017 Overview: 11/03/2016 Patient is complaining of nausea and occasional vomiting in . Dietary considerations discussed. Patient has tried Vitamin B6 and unisom with little relief. Dr Kumar wrote order for Phenergan. Advised patient to call/come in if she is unable to keep any food or fluids down in a 24-hour period. TKRN Abnormal glucose complicating 10/12/2014 11/17/2016 Overview: November 08, 2016 Needs 3 hr. Leatha Kumar MD Supervision of other high-risk 07/03/2014 01/22/2015 Overview: July 03, 2014 elevated WBC at [facility], had infection at that time, trending down. monitor. Leatha Kumar MD Request for sterilization 06/30/2014 Overview: June 30, 2014 Desires tubal. VALENTIN given. Leatha Kumar MD October 11, 2014 Signed tubal papers. Leatha Kumar MD Anxiety in , antepartum 05/26/2014 01/22/2015 Overview: 05/26/14 - discussed R/B/A & use of medication in , she will cont effexor, stop ativan - KJ Poor support system complicating 05/26/2014 01/22/2015 Overview: 05/26/14 - patient is from her - KJ Tobacco use during 05/26/2014 01/22/2015 Overview: 05/26/14 - advised on risks & cessation - KJ Obesity complicating 05/26/2014 01/22/2015 Overview: 05/26/14 - early GCT today - KJ Generalized abdominal pain 02/21/2013 0 07/03/2014 Pelvic pain complicating 02/21/2013 07/05/2013 Frequency of urination 02/21/201307/03 NO SHOW 01/12/2013 07/03/2014 Tobacco abuse 04/12/2012 07/03/2014 Obesity (BMI 30.0-34.9) 04/12/201207/23 Rebound headache 04/12/2012 01/22/2015 Unspecified high-risk 06/19/2008 04/12/2012 Supervision of other normal 12/07/2007 06/19/2008 Other threatened labor, unsp ecified as to episode of care 11/29/2005 01/14/2006 Supervision of other normal 08/07/2005 01/14/2006 documented as of this encounter (statuses as of 05/22/2023) [facility] History of Past illness Narrative* Problem Noted Date Diagnosed Date Resolved Date Severe sepsis 09/11/2018 04/05/2019 Last Assessment & Plan: -The patient was tachycardic, tachypnic, febrile, WBC 31 and LA 1.6. -S/p fluid resuscitation, BP is stable -likely 2/2 HCP, CT chest showed Interval decreased cavitary component and size of right upper lobe pulmonary opacities. Interval new cavitation involving left lower lobe opacities and Interval new region of consolidation within the right lower lobe, possible atelectasis/inflammation/infection. -BC is negative, UC is showing Klebsiella/Enterobacter (UA is clean and the patient is asymptomatic, less likely UTI) -Infectious disease is following, nasal MRSA is negative -Repeat blood culture negative -Continue with Meropenem through -Ordered for Midline Respiratory failure 08/13/2018 04/05/19 20 HIT (heparin-induced thrombocytopenia) 08/05/2018 04/05/2019 SANTANA (acute kidney injury) 08/05/2018 Last Assessment & Plan: -AKD developed after her prolonged ICU course -Cr is improving -Daily BMP Nicotine use disorder, F17.2 07/19/2018 04/05/2019 ARDS (adult respiratory distress syndrome) 07/16/2018 04/05/2019 Acute respiratory failure wi th hypoxia and hypercapnia 07/16/2018 04/05/2019 Pneumonia of both lower lobe s due to infectious organism 07/16/2018 04/05/2019 Septic shock 07/16/2018 04/05/2019 Acute encephalopathy 07/16/2018 019 Encounter for sterilization 03/11/2017 03/19/2018 Overview: Risks, benefits and alternatives to sterilization have been discussed with the patient. She declines reversible options including LARC. She understands sterilization is permanent, irreversible, risks of failure, regret and ectopic. In addition she understands there are surgical risks as well. Her questions were answered to her satisfaction and consent was signed. Leatha Kumar MD Gestational diabetes mellitus, class A1 11/17/2016 07/07/2017 Overview: November 17, 2016 Abnormal 3 hr at 11w. Leatha Kumar MD Unplanned 11/03/2016 07/08/19 18 Overview: 11/03/2016This is a surprise . Patient states she got pregnanct on oral contraceptives.The FOB is the father of her previous son. Patient desires PPTL. TKRN Obesity in 11/03/2016 018 Overview: 11/03/2016She is obese. Will plan on GCT @ [facility]. TKRN Tobacco use during , antepartum 11/03/2016 07/07/2017 Overview: 11/03/2016Pt smokes 1/2 pack a day of cigarettes. Discussed risks of smoking during . Advised pt to quit.TKRN Nausea/vomiting in 11/03/2016 07/07/2017 Overview: 11/03/2016 Patient is complaining of nausea and occasional vomiting in . Dietary considerations discussed. Patient has tried Vitamin B6 and unisom with little relief. Dr Kumar wrote order for Phenergan. Advised patient to call/come in if she is unable to keep any food or fluids down in a 24-hour period. TKRN Abnormal glucose complicating 10/12/2014 11/17/2016 Overview: November 08, 2016 Needs 3 hr. Leatha Kumar MD Supervision of other high-risk 07/03/2014 01/22/2015 Overview: July 03, 2014 elevated WBC at [facility], had infection at that time, trending down. monitor. Leatha Kumar MD Request for sterilization 06/30/2014 Overview: June 30, 2014 Desires tubal. VALENTIN given. Leatha Kumar MD October 11, 2014 Signed tubal papers. Leatha Kumar MD Anxiety in , antepartum 05/26/2014 01/22/2015 Overview: 05/26/14 - discussed R/B/A & use of medication in , she will cont effexor, stop ativan - KJ Poor support system complicating 05/26/2014 01/22/2015 Overview: 05/26/14 - patient is from her - KJ Tobacco use during 05/26/2014 01/22/2015 Overview: 05/26/14 - advised on risks & cessation - KJ Obesity complicating 05/26/2014 01/22/2015 Overview: 05/26/14 - early GCT today - KJ Generalized abdominal pain 02/21/2013 0 07/03/2014 Pelvic pain complicating 02/21/2013 07/05/2013 Frequency of urination 02/21/201307/03 NO SHOW 01/12/2013 07/03/2014 Tobacco abuse 04/12/2012 07/03/2014 Obesity (BMI 30.0-34.9) 04/12/201207/23 Rebound headache 04/12/2012 01/22/2015 Unspecified high-risk 06/19/2008 04/12/2012 Supervision of other normal 12/07/2007 06/19/2008 Other threatened labor, unsp ecified as to episode of care 11/29/2005 01/14/2006 Supervision of other normal 08/07/2005 01/14/2006 documented as of this encounter (statuses as of 06/06/2023) [facility] History of Past illness Narrative* Problem Noted Date Diagnosed Date Resolved Date Severe sepsis 09/11/2018 04/05/2019 Last Assessment & Plan: -The patient was tachycardic, tachypnic, febrile, WBC 31 and LA 1.6. -S/p fluid resuscitation, BP is stable -likely 2/2 HCP, CT chest showed Interval decreased cavitary component and size of right upper lobe pulmonary opacities. Interval new cavitation involving left lower lobe opacities and Interval new region of consolidation within the right lower lobe, possible atelectasis/inflammation/infection. -BC is negative, UC is showing Klebsiella/Enterobacter (UA is clean and the patient is asymptomatic, less likely UTI) -Infectious disease is following, nasal MRSA is negative -Repeat blood culture negative -Continue with Meropenem through -Ordered for Midline Respiratory failure 08/13/2018 04/05/19 20 HIT (heparin-induced thrombocytopenia) 08/05/2018 04/05/2019 SANTANA (acute kidney injury) 08/05/2018 Last Assessment & Plan: -AKD developed after her prolonged ICU course -Cr is improving -Daily BMP Nicotine use disorder, F17.2 07/19/2018 04/05/2019 ARDS (adult respiratory distress syndrome) 07/16/2018 04/05/2019 Acute respiratory failure wi th hypoxia and hypercapnia 07/16/2018 04/05/2019 Pneumonia of both lower lobe s due to infectious organism 07/16/2018 04/05/2019 Septic shock 07/16/2018 04/05/2019 Acute encephalopathy 07/16/2018 019 Encounter for sterilization 03/11/2017 03/19/2018 Overview: Risks, benefits and alternatives to sterilization have been discussed with the patient. She declines reversible options including LARC. She understands sterilization is permanent, irreversible, risks of failure, regret and ectopic. In addition she understands there are surgical risks as well. Her questions were answered to her satisfaction and consent was signed. Leatha Kumar MD Gestational diabetes mellitus, class A1 11/17/2016 07/07/2017 Overview: November 17, 2016 Abnormal 3 hr at 11w. Leatha Kumar MD Unplanned 11/03/2016 07/08/19 18 Overview: 11/03/2016This is a surprise . Patient states she got pregnanct on oral contraceptives.The FOB is the father of her previous son. Patient desires PPTL. TKRN Obesity in 11/03/2016 018 Overview: 11/03/2016She is obese. Will plan on GCT @ [facility]. TKRN Tobacco use during , antepartum 11/03/2016 07/07/2017 Overview: 11/03/2016Pt smokes 1/2 pack a day of cigarettes. Discussed risks of smoking during . Advised pt to quit.TKRN Nausea/vomiting in 11/03/2016 07/07/2017 Overview: 11/03/2016 Patient is complaining of nausea and occasional vomiting in . Dietary considerations discussed. Patient has tried Vitamin B6 and unisom with little relief. Dr Kumar wrote order for Phenergan. Advised patient to call/come in if she is unable to keep any food or fluids down in a 24-hour period. TKRN Abnormal glucose complicating 10/12/2014 11/17/2016 Overview: November 08, 2016 Needs 3 hr. Leatha Kumar MD Supervision of other high-risk 07/03/2014 01/22/2015 Overview: July 03, 2014 elevated WBC at [facility], had infection at that time, trending down. monitor. Leatha Kumar MD Request for sterilization 06/30/2014 Overview: June 30, 2014 Desires tubal. VALENTIN given. Letaha Kumar MD October 11, 2014 Signed tubal papers. Leatha Kumar MD Anxiety in , antepartum 05/26/2014 01/22/2015 Overview: 05/26/14 - discussed R/B/A & use of medication in , she will cont effexor, stop ativan - KJ Poor support system complicating 05/26/2014 01/22/2015 Overview: 05/26/14 - patient is from her - KJ Tobacco use during 05/26/2014 01/22/2015 Overview: 05/26/14 - advised on risks & cessation - KJ Obesity complicating 05/26/2014 01/22/2015 Overview: 05/26/14 - early GCT today - KJ Generalized abdominal pain 02/21/2013 0 07/03/2014 Pelvic pain complicating 02/21/2013 07/05/2013 Frequency of urination 02/21/201307/03 NO SHOW 01/12/2013 07/03/2014 Tobacco abuse 04/12/2012 07/03/2014 Obesity (BMI 30.0-34.9) 04/12/2012/ Rebound headache 04/12/2012 01/22/2015 Unspecified high-risk 06/19/2008 04/12/2012 Supervision of other normal 12/07/2007 06/19/2008 Other threatened labor, unsp ecified as to episode of care 11/29/2005 01/14/2006 Supervision of other normal 08/07/2005 01/14/2006 documented as of this encounter (statuses as of 06/09/2023) [facility] History of Past illness Narrative* Problem Noted Date Diagnosed Date Resolved Date Severe sepsis 09/11/2018 04/05/2019 Last Assessment & Plan: -The patient was tachycardic, tachypnic, febrile, WBC 31 and LA 1.6. -S/p fluid resuscitation, BP is stable -likely 2/2 HCP, CT chest showed Interval decreased cavitary component and size of right upper lobe pulmonary opacities. Interval new cavitation involving left lower lobe opacities and Interval new region of consolidation within the right lower lobe, possible atelectasis/inflammation/infection. -BC is negative, UC is showing Klebsiella/Enterobacter (UA is clean and the patient is asymptomatic, less likely UTI) -Infectious disease is following, nasal MRSA is negative -Repeat blood culture negative -Continue with Meropenem through -Ordered for Midline Respiratory failure 08/13/2018 04/05/19 20 HIT (heparin-induced thrombocytopenia) 08/05/2018 04/05/2019 SANTANA (acute kidney injury) 08/05/2018 Last Assessment & Plan: -AKD developed after her prolonged ICU course -Cr is improving -Daily BMP Nicotine use disorder, F17.2 07/19/2018 04/05/2019 ARDS (adult respiratory distress syndrome) 07/16/2018 04/05/2019 Acute respiratory failure wi th hypoxia and hypercapnia 07/16/2018 04/05/2019 Pneumonia of both lower lobe s due to infectious organism 07/16/2018 04/05/2019 Septic shock 07/16/2018 04/05/2019 Acute encephalopathy 07/16/2018 019 Encounter for sterilization 03/11/2017 03/19/2018 Overview: Risks, benefits and alternatives to sterilization have been discussed with the patient. She declines reversible options including LARC. She understands sterilization is permanent, irreversible, risks of failure, regret and ectopic. In addition she understands there are surgical risks as well. Her questions were answered to her satisfaction and consent was signed. Leatha Kumar MD Gestational diabetes mellitus, class A1 11/17/2016 07/07/2017 Overview: November 17, 2016 Abnormal 3 hr at 11w. Leatha Kumar MD Unplanned 11/03/2016 07/08/19 18 Overview: 11/03/2016This is a surprise . Patient states she got pregnanct on oral contraceptives.The FOB is the father of her previous son. Patient desires PPTL. TKRN Obesity in 11/03/2016 018 Overview: 11/03/2016She is obese. Will plan on GCT @ [facility]. TKRN Tobacco use during , antepartum 11/03/2016 07/07/2017 Overview: 11/03/2016Pt smokes 1/2 pack a day of cigarettes. Discussed risks of smoking during . Advised pt to quit.TKRN Nausea/vomiting in 11/03/2016 07/07/2017 Overview: 11/03/2016 Patient is complaining of nausea and occasional vomiting in . Dietary considerations discussed. Patient has tried Vitamin B6 and unisom with little relief. Dr Kumar wrote order for Phenergan. Advised patient to call/come in if she is unable to keep any food or fluids down in a 24-hour period. TKRN Abnormal glucose complicating 10/12/2014 11/17/2016 Overview: November 08, 2016 Needs 3 hr. Leatha Kumar MD Supervision of other high-risk 07/03/2014 01/22/2015 Overview: July 03, 2014 elevated WBC at [facility], had infection at that time, trending down. monitor. Leatha Kumar MD Request for sterilization 06/30/2014 Overview: June 30, 2014 Desires tubal. VALENTIN given. Leatha Kumar MD October 11, 2014 Signed tubal papers. Leatha Kumar MD Anxiety in , antepartum 05/26/2014 01/22/2015 Overview: 05/26/14 - discussed R/B/A & use of medication in , she will cont effexor, stop ativan - KJ Poor support system complicating 05/26/2014 01/22/2015 Overview: 05/26/14 - patient is from her - KJ Tobacco use during 05/26/2014 01/22/2015 Overview: 05/26/14 - advised on risks & cessation - KJ Obesity complicating 05/26/2014 01/22/2015 Overview: 05/26/14 - early GCT today - KJ Generalized abdominal pain 02/21/2013 0 07/03/2014 Pelvic pain complicating 02/21/2013 07/05/2013 Frequency of urination 02/21/201307/03 NO SHOW 01/12/2013 07/03/2014 Tobacco abuse 04/12/2012 07/03/2014 Obesity (BMI 30.0-34.9) 04/12/201207/23 Rebound headache 04/12/2012 01/22/2015 Unspecified high-risk 06/19/2008 04/12/2012 Supervision of other normal 12/07/2007 06/19/2008 Other threatened labor, unsp ecified as to episode of care 11/29/2005 01/14/2006 Supervision of other normal 08/07/2005 01/14/2006 documented as of this encounter (statuses as of 06/09/2023) [facility] History of Past illness Narrative* Problem Noted Date Diagnosed Date Resolved Date Severe sepsis 09/11/2018 04/05/2019 Last Assessment & Plan: -The patient was tachycardic, tachypnic, febrile, WBC 31 and LA 1.6. -S/p fluid resuscitation, BP is stable -likely 2/2 HCP, CT chest showed Interval decreased cavitary component and size of right upper lobe pulmonary opacities. Interval new cavitation involving left lower lobe opacities and Interval new region of consolidation within the right lower lobe, possible atelectasis/inflammation/infection. -BC is negative, UC is showing Klebsiella/Enterobacter (UA is clean and the patient is asymptomatic, less likely UTI) -Infectious disease is following, nasal MRSA is negative -Repeat blood culture negative -Continue with Meropenem through -Ordered for Midline Respiratory failure 08/13/2018 04/05/19 20 HIT (heparin-induced thrombocytopenia) 08/05/2018 04/05/2019 SANTANA (acute kidney injury) 08/05/2018 Last Assessment & Plan: -AKD developed after her prolonged ICU course -Cr is improving -Daily BMP Nicotine use disorder, F17.2 07/19/2018 04/05/2019 ARDS (adult respiratory distress syndrome) 07/16/2018 04/05/2019 Acute respiratory failure wi th hypoxia and hypercapnia 07/16/2018 04/05/2019 Pneumonia of both lower lobe s due to infectious organism 07/16/2018 04/05/2019 Septic shock 07/16/2018 04/05/2019 Acute encephalopathy 07/16/2018 019 Encounter for sterilization 03/11/2017 03/19/2018 Overview: Risks, benefits and alternatives to sterilization have been discussed with the patient. She declines reversible options including LARC. She understands sterilization is permanent, irreversible, risks of failure, regret and ectopic. In addition she understands there are surgical risks as well. Her questions were answered to her satisfaction and consent was signed. Leatha Kumar MD Gestational diabetes mellitus, class A1 11/17/2016 07/07/2017 Overview: November 17, 2016 Abnormal 3 hr at 11w. Leatha Kumar MD Unplanned 11/03/2016 07/08/19 18 Overview: 11/03/2016This is a surprise . Patient states she got pregnanct on oral contraceptives.The FOB is the father of her previous son. Patient desires PPTL. TKRN Obesity in 11/03/2016 04/17/2 018 Overview: 11/03/2016She is obese. Will plan on GCT @ [facility]. TKRN Tobacco use during , antepartum 11/03/2016 07/07/2017 Overview: 11/03/2016Pt smokes 1/2 pack a day of cigarettes. Discussed risks of smoking during . Advised pt to quit.TKRN Nausea/vomiting in 11/03/2016 07/07/2017 Overview: 11/03/2016 Patient is complaining of nausea and occasional vomiting in . Dietary considerations discussed. Patient has tried Vitamin B6 and unisom with little relief. Dr Kumar wrote order for Phenergan. Advised patient to call/come in if she is unable to keep any food or fluids down in a 24-hour period. TKRN Abnormal glucose complicating 10/12/2014 11/17/2016 Overview: November 08, 2016 Needs 3 hr. Leatha Kumar MD Supervision of other high-risk 07/03/2014 01/22/2015 Overview: July 03, 2014 elevated WBC at [facility], had infection at that time, trending down. monitor. Leatha Kumar MD Request for sterilization 06/30/2014 Overview: June 30, 2014 Desires tubal. VALENTIN given. Leatha Kumar MD October 11, 2014 Signed tubal papers. Leatha Kumar MD Anxiety in , antepartum 05/26/2014 01/22/2015 Overview: 05/26/14 - discussed R/B/A & use of medication in , she will cont effexor, stop ativan - KJ Poor support system complicating 05/26/2014 01/22/2015 Overview: 05/26/14 - patient is from her - KJ Tobacco use during 05/26/2014 01/22/2015 Overview: 05/26/14 - advised on risks & cessation - KJ Obesity complicating 05/26/2014 01/22/2015 Overview: 05/26/14 - early GCT today - KJ Generalized abdominal pain 02/21/2013 0 07/03/2014 Pelvic pain complicating 02/21/2013 07/05/2013 Frequency of urination 02/21/201307/03 NO SHOW 01/12/2013 07/03/2014 Tobacco abuse 04/12/2012 07/03/2014 Obesity (BMI 30.0-34.9) 04/12/201207/23 Rebound headache 04/12/2012 01/22/2015 Unspecified high-risk 06/19/2008 04/12/2012 Supervision of other normal 12/07/2007 06/19/2008 Other threatened labor, unsp ecified as to episode of care 11/29/2005 01/14/2006 Supervision of other normal 08/07/2005 01/14/2006 documented as of this encounter (statuses as of 07/03/2023) [facility] No data available for this section [facility] Evaluation note* Diagnosis Viral sinusitis Unspecified sinusitis (chronic) [facility] Diagnosis Panic disorder with agoraphobia Agoraphobia with panic disorder documented in this encounter [facility] note* Diagnosis Vitamin D deficiency- Primary Unspecified vitamin D deficiency [facility] Diagnosis Tachycardia Tachycardia, unspecified [facility] Diagnosis Migraine without aura, intractable, without status migrainosus documented in this encounter [facility]* Diagnosis Panic disorder with agoraphobia Agoraphobia with panic disorder [facility] Diagnosis Encounter for long-term (current) use of medications- Primary Encounter for long-term (current) use of other medications Panic disorder with agoraphobia Agoraphobia with panic disorder Major depressive disorder, recurrent episode, moderate (HCC) Major depressive disorder, recurrent episode, moderate [facility] Diagnosis ELLEN (obstructive sleep apnea) Obstructive sleep apnea (adult) (pediatric) documented in this encounter [facility] note* Diagnosis Panic disorder with agoraphobia Agoraphobia with panic disorder documented [facility]* Diagnosis Close exposure to COVID-19 virus- Primary documented in this encounter [facility]* Diagnosis COVID-19- Primary documented in this encounter [facility] note* Diagnosis Panic disorder with agoraphobia Agoraphobia with panic disorder documented in this encounter [facility] note* Diagnosis Urinary frequency- Primary Lumbar pain Lumbago documented in this encounter [facility] note* Diagnosis Vaginal discharge- Primary Leukorrhea, not specified as infective Urinary frequency Acute vaginitis Vaginitis and vulvovaginitis, unspecified Acute effusion of left ear documented in this encounter [facility] note* Diagnosis Urinary frequency- Primary documented in this [facility]* Diagnosis Obesity, Class II, BMI 35-39.9- Primary Obesity, unspecified Major depressive disorder, recurrent episode, moderate (HCC) Major depressive disorder, recurrent episode, moderate Type 2 diabetes mellitus without complication, without long-term current use of insulin ([facility]) Primary hypertension Unspecified essential hypertension Anxiety Anxiety state, unspecified documented in this encounter [facility]* Diagnosis Other acute nonsuppurative otitis media, left ear documented in this encounter [facility]* Diagnosis Panic disorder with agoraphobia Agoraphobia with panic disorder documented in this encounter [facility]* Diagnosis Viral sinusitis Unspecified sinusitis (chronic) documented in this encounter [facility] note* Diagnosis Sinus pressure- Primary Other diseases of nasal cavity and sinuses ETD (Eustachian tube dysfunction), bilateral documented [facility] this encounter [facility]* Diagnosis Obesity, Class III, BMI 40-49.9 (morbid obesity) ([facility])- Primary Morbid obesity documented in this encounter [facility]* Diagnosis Acute pain of left knee- Primary documented in this encounter [facility]* Diagnosis Type 2 diabetes mellitus without complication, without long-term current use of insulin ([facility]) Obesity, Class II, BMI 35-39.9 Obesity, unspecified Hyperglycemia Other abnormal glucose Neuropathy Mononeuritis of unspecified site Prediabetes Other abnormal glucose [facility]* Diagnosis Major depressive disorder, recurrent episode, moderate (HCC)- Primary Major depressive disorder, recurrent episode, moderate Panic disorder with agoraphobia Agoraphobia with panic disorder documented in this encounter [facility]* Diagnosis Migraine without aura, intractable, without status migrainosus [facility]* Diagnosis Hyperlipidemia, mixed Mixed hyperlipidemia documented in this encounter [facility]* Diagnosis Dysthymic disorder- Primary Obesity, Class III, BMI 40-49.9 (morbid obesity) ([facility]) Morbid obesity Anxiety Anxiety state, unspecified Type 2 diabetes mellitus without complication, without long-term current use of insulin ([facility]) documented in this encounter [facility]* Diagnosis Type 2 diabetes mellitus without complication, without long-term current use of insulin ([facility])- Primary Sore throat Acute pharyngitis Viral upper respiratory tract infection Acute upper respiratory infections of unspecified site Acute otitis media, right Unspecified otitis media Stage 3a chronic kidney disease ([facility]) Anxiety Anxiety state, unspecified documented in this encounter [facility]* Diagnosis Urinary frequency- Primary [facility]* Diagnosis Panic disorder with agoraphobia Agoraphobia with panic disorder documented [facility] this [facility]* Diagnosis Encounter for gynecological examination (general) (routine) without abnormal findings- Primary Vaginal discharge Leukorrhea, not specified as infective Vaginal odor Unspecified symptom associated with female genital organs [facility] Diagnosis Vaginal irritation- Primary Unspecified noninflammatory disorder of vagina Vaginal burning Other specified symptom associated with female genital organs documented in this encounter [facility]* Diagnosis Major depressive disorder, recurrent episode, moderate (HCC)- Primary Major depressive disorder, recurrent episode, moderate Panic disorder with agoraphobia Agoraphobia with panic disorder documented in this encounter [facility]* Diagnosis Treatment not available- Primary Procedure not carried out for other reasons documented in this encounter [facility]* Diagnosis Obesity, Class III, BMI 40-49.9 (morbid obesity) ([facility]) Morbid obesity Dysthymic disorder Anxiety Anxiety state, unspecified [facility]* Diagnosis Type 2 diabetes mellitus without complication, without long-term current use of insulin (HCC) Viral upper respiratory tract infection Acute upper respiratory infections of unspecified site documented [facility]* Diagnosis Major depressive disorder, recurrent episode, moderate (HCC)- Primary Major depressive disorder, recurrent episode, moderate Panic disorder with agoraphobia Agoraphobia with panic disorder documented [facility]* Diagnosis Type 2 diabetes mellitus without complication, without long-term current use of insulin ([facility]) documented [facility]* Diagnosis Panic disorder with agoraphobia Agoraphobia with panic disorder [facility]* Diagnosis Panic disorder with agoraphobia Agoraphobia with panic disorder [facility]* Diagnosis Lower resp. tract infection- Primary Other diseases of respiratory system, not elsewhere classified Sore throat Acute pharyngitis documented [facility]* Diagnosis Type 2 diabetes mellitus without complication, without long-term current use of insulin ([facility])- Primary Obesity, Class III, BMI 40-49.9 (morbid obesity) ([facility]) Morbid obesity documented [facility]* Diagnosis No-show for appointment- Primary documented [facility]* Diagnosis Panic disorder with agoraphobia Agoraphobia with panic disorder [facility]* Diagnosis Onset Date Resolution Status Acute bronchospasm acute Acute hypoxemic respiratory failure acute Bilateral interstitial pneumonia acute History of hypertension acut e RSV (respiratory syncytial virus infection) acute Sepsis without acute organ dysfunction acute Sinus tachycardia acute Pure hypercholesterolemia [facility] Work Phone: Evaluation note* Diagnosis Recurrent major depressive disorder, in partial remission ([facility])- Primary Panic disorder with agoraphobia Agoraphobia with panic disorder [facility]* Diagnosis Panic disorder with agoraphobia Agoraphobia with panic disorder [facility] noteNo assessment information availableWHolmes [facility] Work Phone: [facility]* Diagnosis Urinary frequency- Primary Vaginal discharge Leukorrhea, not specified as infective documented [facility] this [facility]* Diagnosis URI, acute- Primary Acute upper respiratory infections of unspecified site Acute otitis media, bilateral Unspecified otitis media documented [facility]* Diagnosis Major depressive disorder, recurrent episode, moderate (HCC)- Primary Major depressive disorder, recurrent episode, moderate Panic disorder with agoraphobia Agoraphobia with panic disorder documented [facility]* Diagnosis Panic disorder with agoraphobia Agoraphobia with panic disorder [facility]* Diagnosis Urinary frequency- Primary documented [facility]* Diagnosis Panic disorder with agoraphobia Agoraphobia with panic disorder [facility]* Diagnosis Recurrent major depressive disorder, in partial remission (HCC)- Primary Panic disorder with agoraphobia Agoraphobia with panic disorder documented [facility]* Diagnosis Sore throat- Primary Acute pharyngitis documented in this [facility]* Diagnosis Migraine without aura, intractable, without status migrainosus documented [facility]* Diagnosis Tachycardia Tachycardia, unspecified documented [facility] this [facility]* Diagnosis Obesity, Class III, BMI 40-49.9 (morbid obesity) (HCC) Morbid obesity Type 2 diabetes mellitus without complication, without long-term current use of insulin ([facility]) documented in this encounter [facility] note* Diagnosis Sepsis, due to unspecified organism- Primary Cavitary lung disease Other diseases of lung, not elsewhere classified SANTANA (acute kidney injury) (HCC) Acute kidney failure, unspecified Acute deep vein thrombosis (DVT) of right lower extremity, unspecified vein (HCC) Cavitary lung disease Other diseases of lung, not elsewhere classified DVT (deep venous thrombosis) (HCC) Acute venous embolism and thrombosis of unspecified deep vessels of lower extremity Acalculous cholecystitis Cholecystitis, unspecified SANTANA (acute kidney injury) (HCC) Acute kidney failure, unspecified Acute pain of left knee documented in this encounter [facility]* Diagnosis Sepsis, due to unspecified organism- Primary Cavitary lung disease Other diseases of lung, not elsewhere classified SANTANA (acute kidney injury) (HCC) Acute kidney failure, unspecified Acute deep vein thrombosis (DVT) of right lower extremity, unspecified vein (HCC) Cavitary lung disease Other diseases of lung, not elsewhere classified DVT (deep venous thrombosis) (HCC) Acute venous embolism and thrombosis of unspecified deep vessels of lower extremity Acalculous cholecystitis Cholecystitis, unspecified SANTANA (acute kidney injury) (HCC) Acute kidney failure, unspecified Foot pain, left Pain in limb [facility] Diagnosis Sepsis, due to unspecified organism- Primary Cavitary lung disease Other diseases of lung, not elsewhere classified SANTANA (acute kidney injury) (HCC) Acute kidney failure, unspecified Acute deep vein thrombosis (DVT) of right lower extremity, unspecified vein (HCC) Cavitary lung disease Other diseases of lung, not elsewhere classified DVT (deep venous thrombosis) (HCC) Acute venous embolism and thrombosis of unspecified deep vessels of lower extremity Acalculous cholecystitis Cholecystitis, unspecified SANTANA (acute kidney injury) (HCC) Acute kidney failure, unspecified Sinobronchitis- Primary Unspecified sinusitis (chronic) Acute otitis media, bilateral Unspecified otitis media Pneumonia exposure Contact with or exposure to other viral diseases documented in this encounter [facility] for referral (narrative)* Outpatient Procedure (Routine) - Pending Review Specialty Diagnoses / Procedures Referred By Tj hawkins Referred To Contact [facility] Diagnoses Panic disorder with agoraphobia Encounter for long-term (current) use of medications Procedures ECG COMPLETE ECG ROUTINE ECG W/LEAST 12 LDS W/I&R Elin Dotson APRN.CNP [address] [place] [address] [facility] [address] [address] Referral ID Status Reason Start Date Expiration Date Visits Requested Visits Authorized [id number] Pending Review Auto-Generat ed Referral 08/30/2021 08/30/2022 1 1 [facility] Diagnostic Procedure Only (Routine) - Closed Specialty Diagnoses / Procedures Referred By Tj hawkins Referred To Contact XR IMAGING Diagnoses Acute pain of left knee Procedures XR KNEE GENERAL 4V AP BOTH/PA BOTH/LAT/MERC LEFT RADIOLOGIC EXAM KNEE COMPLETE 4/MORE VIEWS Podlogar, APRN. MarcelaHAMMER SETTER [address] [place] [address] [place] [address] Referral ID Status Reason Start Date Expiration Date V isits Requested Visits Authorized [id number] Closed Auto-Generate d Referral 02/25/2022 03/27/2023 1 1 [facility] for visit Narrative* Diagnostic Procedure Only (Routine) - Closed Specialty Diagnoses / Procedures Referred By Contac t Referred To Contact XR IMAGING Diagnoses Acute pain of left knee Procedures XR KNEE GENERAL 4V AP BOTH/PA BOTH/LAT/MERC LEFT RADIOLOGIC EXAM KNEE COMPLETE 4/MORE VIEWS Podlogar, MERCEDEZ Medrano [address] [place] [address] [place] [address] Referral ID Status Reason Start Date Expiration Date V isits Requested Visits Authorized [id number] Closed Auto-Generate d Referral 02/25/2022 03/27/2023 1 1 [facility] Summary Purpose Family History No Family History Records Found Relationship Condition Age at Onset Recorded Date/T arti mother Diabetes mellitus Unknown Hypertension Unknown Asthma Unknown sister Prediabetes Unknown grandmother Renal failure Unknown Advance Directives No Advanced Directives Records FoundDocuments on File Type Date 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 Advance Directive(s) 09/11/2018 1:59 AM Advance Directive(s) 09/09/2018 11:16 AM Advance Directive(s) 08/13/2018 1:52 PM Advance Directive(s) 07/16/2018 8:02 PM Latest Code Status on File Code Status Date Activated Date Inactivated Comments Full Code 09/16/2018 2:16 PM Full Code 09/11/2018 6:31 AM 09/16/2018 4:59 PM Full Code Order Discussed With: Patient Full Code 08/14/2018 6:39 AM 08/23/2018 11:29 PM Full Code Order Discussed With: Surrogate Decisi on Maker Patient and Surrogate Decision M [email or web address] Full Code 07/16/2018 10:39 PM 08/12/2018 7:13 PM Full Code Order Discussed With: Surrogate Decisi on Maker Documents on File Type Date 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 Advance Directive(s) 09/11/2018 1:59 AM Advance Directive(s) 09/09/2018 11:16 AM Advance Directive(s) 08/13/2018 1:52 PM Advance Directive(s) 07/16/2018 8:02 PM Latest Code Status on File Code Status Date Activated Date Inactivated Comments Full Code 09/16/2018 2:16 PM Full Code 09/11/2018 6:31 AM 09/16/2018 4:59 PM Full Code 08/14/2018 6:39 AM 08/23/2018 11:29 PM Full Code 07/16/2018 10:39 PM 08/12/2018 7:13 PM Latest Code Status on File Code Status Date Activated Date Inactivated Comments Full Code 09/16/2018 2:16 PM Code Status History Code Status Date Activated Date Inactivated Comments Full Code 09/11/2018 6:31 AM 09/16/2018 4:59 PM Question Answer Comments Full Code Order Discussed With: Patient Full Code 08/14/2018 6:39 AM 08/23/2018 11:29 PM Question Answer Comments Full Code Order Discussed With: Surrogate Decision Maker Patient and Surrogat e Decision Maker Full Code 07/16/2018 10:39 PM 08/12/2018 7:13 PM Question Answer Comments Full Code Order Discussed With: Surrogate Decision Maker Advance Directive Response Recorded Date/ Time Living Will No February 27 2:35am Power of Mail Officer No February 27, 2023 2:35am Advance Directive Response Recorded Date/ Time Living Will No May 20 9:45am Power of Mail Officer No May 20, 2023 9:45am Date Activated Date Inactivated Comments 09/16/2018 2:16 PM Date Activated Date Inactivated Comments 09/11/2018 6:31 AM 09/16/2018 4:59 PM Question Answer Comments Full Code Order Discussed With: Patient Date Activated Date Inactivated Comments 08/14/2018 6:39 AM 08/23/2018 11:29 PM Question Answer Comments Full Code Order Discussed With: Surrogat e Decision MakerPatient and Surrogate Decision Maker Date Activated Date Inactivated Comments 07/16/2018 10:39 PM 08/12/2018 7:13 PM Question Answer Comments Full Code Order Discussed With: Surrogate Decisi on Maker Date Activated Date Inactivated Comments 09/16/2018 2:16 PM Date Activated Date Inactivated Comments 09/11/2018 6:31 AM 09/16/2018 4:59 PM Question Answer Comments Full Code Order Discussed With: Patient Date Activated Date Inactivated Comments 08/14/2018 6:39 AM 08/23/2018 11:29 PM Question Answer Comments Full Code Order Discussed With: Surrogat e Decision MakerPatient and Surrogate Decision Maker Date Activated Date Inactivated Comments 07/16/2018 10:39 PM 08/12/2018 7:13 PM Question Answer Comments Full Code Order Discussed With: Surrogate Decisi on Maker Health Concerns Infection Onset Date Last Indicated Resolved Time COVID-19 Rule-Out 11/06/2021 11/06/2021 Infection Onset Date Last Indicated Resolved Time COVID-19 Rule-Out 11/06/2021 11/06/2021 11/07/2021 7:17 AM EDT COVID-19 Confirmed 11/06/2021 11/06/2021 Infection Onset Date Last Indicated Resolved Time COVID-19 Confirmed 11/06/2021 11/06/2021 Infection Onset Date Last Indicated Resolved Time COVID-19 Rule-Out 07/08/2022 07/08/2022 07/09/2022 4:58 AM EDT Infection Onset Date Last Indicated Resolved Time COVID-19 Rule-Out 02/23/2023 02/23/2023 02/23/2023 7:36 PM EST Infection Onset Date Last Indicated Resolved Time COVID-19 Confirmed 06/06/2023 06/06/2023 Reason for Referral Specialty Diagnoses / Procedures Referred By Contac t Referred To Contact Diagnoses Type 2 diabetes mellitus without complication, without long-term current use of insulin (HCC) Nallely Butler APRN.HAMMER SETTER [address] [place] [address] Referral ID Status Reason Start Date Expiration Date Visits Re quested Visits Authorized [id number] Closed 1 1 Specialty Diagnoses / Procedures Referred By Contac t Referred To Contact [facility] Diagnoses Acute pain of left knee Procedures CONSULT TO PHYSICAL THERAPY PHYSICAL THERAPY EVALUATION HIGH COMPLEX 45 MINS PodlogarMarcela APRN.HAMMER SETTER [address] [place] [address] [facility] [place] [address] [place] [address] Referral ID Status Reason Start Date Expiration Date Visits Requested Visits Authorized [id number] Authorized Auto-Generat ed Referral 03/23/2021 03/22/2022 30 30 Specialty Diagnoses / Procedures Referred By Contac t Referred To Contact XR IMAGING Diagnoses Acute pain of left knee Procedures XR KNEE GENERAL 4V AP BOTH/PA BOTH/LAT/MERC LEFT RADIOLOGIC EXAM KNEE COMPLETE 4/MORE VIEWS PodlogMarcela glass APRN.HAMMER SETTER [address] [place] [address] X[facility] Imaging Referral ID Status Reason Start Date Expiration Date V isits Requested Visits Authorized [id number] Closed Auto-Generate d Referral 02/25/2022 03/27/2023 1 1 Specialty Diagnoses / Procedures Referred By Contac t Referred To Contact Diagnoses Obesity, Class III, BMI 40-49.9 (morbid obesity) ([facility]) Ana Kingsley MD [address] [place] [address] Referral ID Status Reason Start Date Expiration Date Visits Re quested Visits Authorized [id number] Closed 1 1 Specialty Diagnoses / Procedures Referred By Contac t Referred To Contact Diagnoses Obesity, Class II, BMI 35-39.9 Ana Kingsley MD [address] [place] [address] Referral ID Status Reason Start Date Expiration Date Visits Re quested Visits Authorized [id number] Closed 1 1 Specialty Diagnoses / Procedures Referred By Contac t Referred To Contact Nallely Butler, CATTLE SORTER.HAMMER SETTER [address] [place] [address] Referral ID Status Reason Start Date Expiration Date Visits Re quested Visits Authorized [id number] Closed 1 1 Chief Complaint and Reason for Visit Chief Complaint SEPSIS, MULTIFOCAL P NEUMONIA, RSV & ACUTE HYPOXIC Reason for Visit Acute bronchospasm Acute hypoxemic respiratory failure Bilateral interstitial pneumonia History of hypertension RSV (respiratory syncytial virus infection) Sepsis without acute organ dysfunction Sinus tachycardia Pure hypercholesterolemia Chief Complaint SEPSIS, MULTIFOCAL P NEUMONIA, RSV & ACUTE HYPOXIC SEPSIS, MULTIFOCAL PNEUMONIA, RSV & ACUTE HYPOXIC SEPSIS, MULTIFOCAL PNEUMONIA, RSV & ACUTE HYPOXIC SEPSIS, MULTIFOCAL PNEUMONIA, RSV & ACUTE HYPOXIC SEPSIS, MULTIFOCAL PNEUMONIA, RSV & ACUTE HYPOXIC SEPSIS, MULTIFOCAL PNEUMONIA, RSV & ACUTE HYPOXIC SEPSIS, MULTIFOCAL PNEUMONIA, RSV & ACUTE HYPOXIC SEPSIS, MULTIFOCAL PNEUMONIA, RSV & ACUTE HYPOXIC SEPSIS, MULTIFOCAL PNEUMONIA, RSV & ACUTE HYPOXIC SEPSIS, MULTIFOCAL PNEUMONIA, RSV & ACUTE HYPOXIC SEPSIS, MULTIFOCAL PNEUMONIA, RSV & ACUTE HYPOXIC Reason for Visit Acute bronchospasm Acute hypoxemic respiratory failure Bilateral interstitial pneumonia History of hypertension RSV (respiratory syncytial virus infection) Sepsis without acute organ dysfunction Sinus tachycardia Pure hypercholesterolemia Chief Complaint SEPSIS, MULTIFOCAL P NEUMONIA, RSV & ACUTE HYPOXIC SEPSIS, MULTIFOCAL PNEUMONIA, RSV & ACUTE HYPOXIC SEPSIS, MULTIFOCAL PNEUMONIA, RSV & ACUTE HYPOXIC SEPSIS, MULTIFOCAL PNEUMONIA, RSV & ACUTE HYPOXIC SEPSIS, MULTIFOCAL PNEUMONIA, RSV & ACUTE HYPOXIC SEPSIS, MULTIFOCAL PNEUMONIA, RSV & ACUTE HYPOXIC SEPSIS, MULTIFOCAL PNEUMONIA, RSV & ACUTE HYPOXIC SEPSIS, MULTIFOCAL PNEUMONIA, RSV & ACUTE HYPOXIC SEPSIS, MULTIFOCAL PNEUMONIA, RSV & ACUTE HYPOXIC SEPSIS, MULTIFOCAL PNEUMONIA, RSV & ACUTE HYPOXIC SEPSIS, MULTIFOCAL PNEUMONIA, RSV & ACUTE HYPOXIC UPPER EXT Additional Source Comments INFORMATION SOURCE (unrecogn ized section and content) DATE CREATED AUTHOR 09/14/2018 [facility] DATE CREATED AUTHOR AUTHOR'S ORGANIZ ATION 09/27/2018 [facility] DATE CREATED AUTHOR AUTHOR'S ORGANIZ ATION 06/10/2020 [facility] DATE CREATED AUTHOR AUTHOR'S ORGANIZ ATION 05/19/2021 [facility] ([place]) DATE CREATED AUTHOR AUTHOR'S ORGANIZ ATION 12/25/[address] [facility] DATE CREATED AUTHOR AUTHOR'S ORGANIZ ATION 01/24/[address] [facility] DATE CREATED AUTHOR AUTHOR'S ORGANIZ ATION 01/28/2025 [facility] Source Comments (unrecognize d section and content) In the event this informatio n is protected by the Federal Confidentiality of Alcohol and Drug Abuse Patient Records regulations: The Federal rules restrict any use of the information to criminally investigate or prosecute any alcohol or drug abuse patient.[facility] the event this information is protected by the Federal Confidentiality of Alcohol and Drug Abuse Patient Records regulations: The Federal rules restrict any use of the information to criminally investigate or prosecute any alcohol or drug abuse patient.[facility] HospitalIn the event this information is protected by the Federal Confidentiality of Alcohol and Drug Abuse Patient Records regulations: The Federal rules restrict any use of the information to criminally investigate or prosecute any alcohol or drug abuse patient.[facility] HospitalIn the event this information is protected by the Federal Confidentiality of Alcohol and Drug Abuse Patient Records regulations: The Federal rules restrict any use of the information to criminally investigate or prosecute any alcohol or drug abuse patient.[facility] HospitalIn the event this information is protected by the Federal Confidentiality of Alcohol and Drug Abuse Patient Records regulations: The Federal rules restrict any use of the information to criminally investigate or prosecute any alcohol or drug abuse patient.[facility] HospitalIn the event this information is protected by the Federal Confidentiality of Alcohol and Drug Abuse Patient Records regulations: The Federal rules restrict any use of the information to criminally investigate or prosecute any alcohol or drug abuse patient.[facility] HospitalIn the event this information is protected by the Federal Confidentiality of Alcohol and Drug Abuse Patient Records regulations: The Federal rules restrict any use of the information to criminally investigate or prosecute any alcohol or drug abuse patient.[facility] HospitalIn the event this information is protected by the Federal Confidentiality of Alcohol and Drug Abuse Patient Records regulations: The Federal rules restrict any use of the information to criminally investigate or prosecute any alcohol or drug abuse patient.[facility] HospitalIn the event this information is protected by the Federal Confidentiality of Alcohol and Drug Abuse Patient Records regulations: The Federal rules restrict any use of the information to criminally investigate or prosecute any alcohol or drug abuse patient.[facility] HospitalIn the event this information is protected by the Federal Confidentiality of Alcohol and Drug Abuse Patient Records regulations: The Federal rules restrict any use of the information to criminally investigate or prosecute any alcohol or drug abuse patient.[facility] HospitalIn the event this information is protected by the Federal Confidentiality of Alcohol and Drug Abuse Patient Records regulations: The Federal rules restrict any use of the information to criminally investigate or prosecute any alcohol or drug abuse patient.[facility] HospitalIn the event this information is protected by the Federal Confidentiality of Alcohol and Drug Abuse Patient Records regulations: The Federal rules restrict any use of the information to criminally investigate or prosecute any alcohol or drug abuse patient.[facility] HospitalIn the event this information is protected by the Federal Confidentiality of Alcohol and Drug Abuse Patient Records regulations: The Federal rules restrict any use of the information to criminally investigate or prosecute any alcohol or drug abuse patient.[facility] HospitalIn the event this information is protected by the Federal Confidentiality of Alcohol and Drug Abuse Patient Records regulations: The Federal rules restrict any use of the information to criminally investigate or prosecute any alcohol or drug abuse patient.[facility] HospitalIn the event this information is protected by the Federal Confidentiality of Alcohol and Drug Abuse Patient Records regulations: The Federal rules restrict any use of the information to criminally investigate or prosecute any alcohol or drug abuse patient.[facility] HospitalIn the event this information is protected by the Federal Confidentiality of Alcohol and Drug Abuse Patient Records regulations: The Federal rules restrict any use of the information to criminally investigate or prosecute any alcohol or drug abuse patient.[facility] HospitalIn the event this information is protected by the Federal Confidentiality of Alcohol and Drug Abuse Patient Records regulations: The Federal rules restrict any use of the information to criminally investigate or prosecute any alcohol or drug abuse patient.[facility] HospitalIn the event this information is protected by the Federal Confidentiality of Alcohol and Drug Abuse Patient Records regulations: The Federal rules restrict any use of the information to criminally investigate or prosecute any alcohol or drug abuse patient.[facility] HospitalIn the event this information is protected by the Federal Confidentiality of Alcohol and Drug Abuse Patient Records regulations: The Federal rules restrict any use of the information to criminally investigate or prosecute any alcohol or drug abuse patient.[facility] HospitalIn the event this information is protected by the Federal Confidentiality of Alcohol and Drug Abuse Patient Records regulations: The Federal rules restrict any use of the information to criminally investigate or prosecute any alcohol or drug abuse patient.[facility] HospitalIn the event this information is protected by the Federal Confidentiality of Alcohol and Drug Abuse Patient Records regulations: The Federal rules restrict any use of the information to criminally investigate or prosecute any alcohol or drug abuse patient.[facility] HospitalIn the event this information is protected by the Federal Confidentiality of Alcohol and Drug Abuse Patient Records regulations: The Federal rules restrict any use of the information to criminally investigate or prosecute any alcohol or drug abuse patient.[facility] HospitalIn the event this information is protected by the Federal Confidentiality of Alcohol and Drug Abuse Patient Records regulations: The Federal rules restrict any use of the information to criminally investigate or prosecute any alcohol or drug abuse patient.[facility] HospitalIn the event this information is protected by the Federal Confidentiality of Alcohol and Drug Abuse Patient Records regulations: The Federal rules restrict any use of the information to criminally investigate or prosecute any alcohol or drug abuse patient.[facility] HospitalIn the event this information is protected by the Federal Confidentiality of Alcohol and Drug Abuse Patient Records regulations: The Federal rules restrict any use of the information to criminally investigate or prosecute any alcohol or drug abuse patient.[facility] HospitalIn the event this information is protected by the Federal Confidentiality of Alcohol and Drug Abuse Patient Records regulations: The Federal rules restrict any use of the information to criminally investigate or prosecute any alcohol or drug abuse patient.[facility] HospitalIn the event this information is protected by the Federal Confidentiality of Alcohol and Drug Abuse Patient Records regulations: The Federal rules restrict any use of the information to criminally investigate or prosecute any alcohol or drug abuse patient.[facility] HospitalIn the event this information is protected by the Federal Confidentiality of Alcohol and Drug Abuse Patient Records regulations: The Federal rules restrict any use of the information to criminally investigate or prosecute any alcohol or drug abuse patient.[facility] HospitalIn the event this information is protected by the Federal Confidentiality of Alcohol and Drug Abuse Patient Records regulations: The Federal rules restrict any use of the information to criminally investigate or prosecute any alcohol or drug abuse patient.[facility] HospitalIn the event this information is protected by the Federal Confidentiality of Alcohol and Drug Abuse Patient Records regulations: The Federal rules restrict any use of the information to criminally investigate or prosecute any alcohol or drug abuse patient.[facility] HospitalIn the event this information is protected by the Federal Confidentiality of Alcohol and Drug Abuse Patient Records regulations: The Federal rules restrict any use of the information to criminally investigate or prosecute any alcohol or drug abuse patient.[facility] HospitalIn the event this information is protected by the Federal Confidentiality of Alcohol and Drug Abuse Patient Records regulations: The Federal rules restrict any use of the information to criminally investigate or prosecute any alcohol or drug abuse patient.[facility] HospitalIn the event this information is protected by the Federal Confidentiality of Alcohol and Drug Abuse Patient Records regulations: The Federal rules restrict any use of the information to criminally investigate or prosecute any alcohol or drug abuse patient.[facility] HospitalIn the event this information is protected by the Federal Confidentiality of Alcohol and Drug Abuse Patient Records regulations: The Federal rules restrict any use of the information to criminally investigate or prosecute any alcohol or drug abuse patient.[facility] HospitalIn the event this information is protected by the Federal Confidentiality of Alcohol and Drug Abuse Patient Records regulations: The Federal rules restrict any use of the information to criminally investigate or prosecute any alcohol or drug abuse patient.[facility] HospitalIn the event this information is protected by the Federal Confidentiality of Alcohol and Drug Abuse Patient Records regulations: The Federal rules restrict any use of the information to criminally investigate or prosecute any alcohol or drug abuse patient.[facility] HospitalIn the event this information is protected by the Federal Confidentiality of Alcohol and Drug Abuse Patient Records regulations: The Federal rules restrict any use of the information to criminally investigate or prosecute any alcohol or drug abuse patient.[facility] HospitalIn the event this information is protected by the Federal Confidentiality of Alcohol and Drug Abuse Patient Records regulations: The Federal rules restrict any use of the information to criminally investigate or prosecute any alcohol or drug abuse patient.[facility] HospitalIn the event this information is protected by the Federal Confidentiality of Alcohol and Drug Abuse Patient Records regulations: The Federal rules restrict any use of the information to criminally investigate or prosecute any alcohol or drug abuse patient.[facility] HospitalIn the event this information is protected by the Federal Confidentiality of Alcohol and Drug Abuse Patient Records regulations: The Federal rules restrict any use of the information to criminally investigate or prosecute any alcohol or drug abuse patient.[facility] HospitalIn the event this information is protected by the Federal Confidentiality of Alcohol and Drug Abuse Patient Records regulations: The Federal rules restrict any use of the information to criminally investigate or prosecute any alcohol or drug abuse patient.[facility] HospitalIn the event this information is protected by the Federal Confidentiality of Alcohol and Drug Abuse Patient Records regulations: The Federal rules restrict any use of the information to criminally investigate or prosecute any alcohol or drug abuse patient.[facility] HospitalIn the event this information is protected by the Federal Confidentiality of Alcohol and Drug Abuse Patient Records regulations: The Federal rules restrict any use of the information to criminally investigate or prosecute any alcohol or drug abuse patient.[facility] HospitalIn the event this information is protected by the Federal Confidentiality of Alcohol and Drug Abuse Patient Records regulations: The Federal rules restrict any use of the information to criminally investigate or prosecute any alcohol or drug abuse patient.[facility] HospitalIn the event this information is protected by the Federal Confidentiality of Alcohol and Drug Abuse Patient Records regulations: The Federal rules restrict any use of the information to criminally investigate or prosecute any alcohol or drug abuse patient.[facility] HospitalIn the event this information is protected by the Federal Confidentiality of Alcohol and Drug Abuse Patient Records regulations: The Federal rules restrict any use of the information to criminally investigate or prosecute any alcohol or drug abuse patient.[facility] HospitalIn the event this information is protected by the Federal Confidentiality of Alcohol and Drug Abuse Patient Records regulations: The Federal rules restrict any use of the information to criminally investigate or prosecute any alcohol or drug abuse patient.[facility] HospitalIn the event this information is protected by the Federal Confidentiality of Alcohol and Drug Abuse Patient Records regulations: The Federal rules restrict any use of the information to criminally investigate or prosecute any alcohol or drug abuse patient.[facility] HospitalIn the event this information is protected by the Federal Confidentiality of Alcohol and Drug Abuse Patient Records regulations: The Federal rules restrict any use of the information to criminally investigate or prosecute any alcohol or drug abuse patient.[facility] HospitalIn the event this information is protected by the Federal Confidentiality of Alcohol and Drug Abuse Patient Records regulations: The Federal rules restrict any use of the information to criminally investigate or prosecute any alcohol or drug abuse patient.[facility] HospitalIn the event this information is protected by the Federal Confidentiality of Alcohol and Drug Abuse Patient Records regulations: The Federal rules restrict any use of the information to criminally investigate or prosecute any alcohol or drug abuse patient.[facility] HospitalIn the event this information is protected by the Federal Confidentiality of Alcohol and Drug Abuse Patient Records regulations: The Federal rules restrict any use of the information to criminally investigate or prosecute any alcohol or drug abuse patient.[facility] HospitalIn the event this information is protected by the Federal Confidentiality of Alcohol and Drug Abuse Patient Records regulations: The Federal rules restrict any use of the information to criminally investigate or prosecute any alcohol or drug abuse patient.[facility] HospitalIn the event this information is protected by the Federal Confidentiality of Alcohol and Drug Abuse Patient Records regulations: The Federal rules restrict any use of the information to criminally investigate or prosecute any alcohol or drug abuse patient.[facility] HospitalIn the event this information is protected by the Federal Confidentiality of Alcohol and Drug Abuse Patient Records regulations: The Federal rules restrict any use of the information to criminally investigate or prosecute any alcohol or drug abuse patient.[facility] HospitalIn the event this information is protected by the Federal Confidentiality of Alcohol and Drug Abuse Patient Records regulations: The Federal rules restrict any use of the information to criminally investigate or prosecute any alcohol or drug abuse patient.[facility] HospitalIn the event this information is protected by the Federal Confidentiality of Alcohol and Drug Abuse Patient Records regulations: The Federal rules restrict any use of the information to criminally investigate or prosecute any alcohol or drug abuse patient.[facility] HospitalIn the event this information is protected by the Federal Confidentiality of Alcohol and Drug Abuse Patient Records regulations: The Federal rules restrict any use of the information to criminally investigate or prosecute any alcohol or drug abuse patient.[facility] HospitalIn the event this information is protected by the Federal Confidentiality of Alcohol and Drug Abuse Patient Records regulations: The Federal rules restrict any use of the information to criminally investigate or prosecute any alcohol or drug abuse patient.[facility] HospitalIn the event this information is protected by the Federal Confidentiality of Alcohol and Drug Abuse Patient Records regulations: The Federal rules restrict any use of the information to criminally investigate or prosecute any alcohol or drug abuse patient.[facility] HospitalIn the event this information is protected by the Federal Confidentiality of Alcohol and Drug Abuse Patient Records regulations: The Federal rules restrict any use of the information to criminally investigate or prosecute any alcohol or drug abuse patient.[facility] HospitalIn the event this information is protected by the Federal Confidentiality of Alcohol and Drug Abuse Patient Records regulations: The Federal rules restrict any use of the information to criminally investigate or prosecute any alcohol or drug abuse patient.[facility] HospitalIn the event this information is protected by the Federal Confidentiality of Alcohol and Drug Abuse Patient Records regulations: The Federal rules restrict any use of the information to criminally investigate or prosecute any alcohol or drug abuse patient.[facility] HospitalIn the event this information is protected by the Federal Confidentiality of Alcohol and Drug Abuse Patient Records regulations: The Federal rules restrict any use of the information to criminally investigate or prosecute any alcohol or drug abuse patient.[facility] HospitalIn the event this information is protected by the Federal Confidentiality of Alcohol and Drug Abuse Patient Records regulations: The Federal rules restrict any use of the information to criminally investigate or prosecute any alcohol or drug abuse patient.[facility] HospitalIn the event this information is protected by the Federal Confidentiality of Alcohol and Drug Abuse Patient Records regulations: The Federal rules restrict any use of the information to criminally investigate or prosecute any alcohol or drug abuse patient.[facility] HospitalIn the event this information is protected by the Federal Confidentiality of Alcohol and Drug Abuse Patient Records regulations: The Federal rules restrict any use of the information to criminally investigate or prosecute any alcohol or drug abuse patient.[facility] HospitalIn the event this information is protected by the Federal Confidentiality of Alcohol and Drug Abuse Patient Records regulations: The Federal rules restrict any use of the information to criminally investigate or prosecute any alcohol or drug abuse patient.[facility] HospitalIn the event this information is protected by the Federal Confidentiality of Alcohol and Drug Abuse Patient Records regulations: The Federal rules restrict any use of the information to criminally investigate or prosecute any alcohol or drug abuse patient.[facility] HospitalIn the event this information is protected by the Federal Confidentiality of Alcohol and Drug Abuse Patient Records regulations: The Federal rules restrict any use of the information to criminally investigate or prosecute any alcohol or drug abuse patient.[facility] HospitalIn the event this information is protected by the Federal Confidentiality of Alcohol and Drug Abuse Patient Records regulations: The Federal rules restrict any use of the information to criminally investigate or prosecute any alcohol or drug abuse patient.[facility] HospitalIn the event this information is protected by the Federal Confidentiality of Alcohol and Drug Abuse Patient Records regulations: The Federal rules restrict any use of the information to criminally investigate or prosecute any alcohol or drug abuse patient.[facility] HospitalIn the event this information is protected by the Federal Confidentiality of Alcohol and Drug Abuse Patient Records regulations: The Federal rules restrict any use of the information to criminally investigate or prosecute any alcohol or drug abuse patient.[facility] HospitalIn the event this information is protected by the Federal Confidentiality of Alcohol and Drug Abuse Patient Records regulations: The Federal rules restrict any use of the information to criminally investigate or prosecute any alcohol or drug abuse patient.[facility] HospitalIn the event this information is protected by the Federal Confidentiality of Alcohol and Drug Abuse Patient Records regulations: The Federal rules restrict any use of the information to criminally investigate or prosecute any alcohol or drug abuse patient.[facility] HospitalIn the event this information is protected by the Federal Confidentiality of Alcohol and Drug Abuse Patient Records regulations: The Federal rules restrict any use of the information to criminally investigate or prosecute any alcohol or drug abuse patient.[facility] HospitalIn the event this information is protected by the Federal Confidentiality of Alcohol and Drug Abuse Patient Records regulations: The Federal rules restrict any use of the information to criminally investigate or prosecute any alcohol or drug abuse patient.[facility] HospitalIn the event this information is protected by the Federal Confidentiality of Alcohol and Drug Abuse Patient Records regulations: The Federal rules restrict any use of the information to criminally investigate or prosecute any alcohol or drug abuse patient.[facility] HospitalIn the event this information is protected by the Federal Confidentiality of Alcohol and Drug Abuse Patient Records regulations: The Federal rules restrict any use of the information to criminally investigate or prosecute any alcohol or drug abuse patient.[facility] HospitalIn the event this information is protected by the Federal Confidentiality of Alcohol and Drug Abuse Patient Records regulations: The Federal rules restrict any use of the information to criminally investigate or prosecute any alcohol or drug abuse patient.[facility] HospitalIn the event this information is protected by the Federal Confidentiality of Alcohol and Drug Abuse Patient Records regulations: The Federal rules restrict any use of the information to criminally investigate or prosecute any alcohol or drug abuse patient.[facility] HospitalIn the event this information is protected by the Federal Confidentiality of Alcohol and Drug Abuse Patient Records regulations: The Federal rules restrict any use of the information to criminally investigate or prosecute any alcohol or drug abuse patient.[facility] HospitalIn the event this information is protected by the Federal Confidentiality of Alcohol and Drug Abuse Patient Records regulations: The Federal rules restrict any use of the information to criminally investigate or prosecute any alcohol or drug abuse patient.[facility] HospitalIn the event this information is protected by the Federal Confidentiality of Alcohol and Drug Abuse Patient Records regulations: The Federal rules restrict any use of the information to criminally investigate or prosecute any alcohol or drug abuse patient.[facility] HospitalIn the event this information is protected by the Federal Confidentiality of Alcohol and Drug Abuse Patient Records regulations: The Federal rules restrict any use of the information to criminally investigate or prosecute any alcohol or drug abuse patient.[facility] HospitalIn the event this information is protected by the Federal Confidentiality of Alcohol and Drug Abuse Patient Records regulations: The Federal rules restrict any use of the information to criminally investigate or prosecute any alcohol or drug abuse patient.[facility] HospitalIn the event this information is protected by the Federal Confidentiality of Alcohol and Drug Abuse Patient Records regulations: The Federal rules restrict any use of the information to criminally investigate or prosecute any alcohol or drug abuse patient.[facility] HospitalIn the event this information is protected by the Federal Confidentiality of Alcohol and Drug Abuse Patient Records regulations: The Federal rules restrict any use of the information to criminally investigate or prosecute any alcohol or drug abuse patient.[facility] HospitalIn the event this information is protected by the Federal Confidentiality of Alcohol and Drug Abuse Patient Records regulations: The Federal rules restrict any use of the information to criminally investigate or prosecute any alcohol or drug abuse patient.[facility] HospitalIn the event this information is protected by the Federal Confidentiality of Alcohol and Drug Abuse Patient Records regulations: The Federal rules restrict any use of the information to criminally investigate or prosecute any alcohol or drug abuse patient.[facility] HospitalIn the event this information is protected by the Federal Confidentiality of Alcohol and Drug Abuse Patient Records regulations: The Federal rules restrict any use of the information to criminally investigate or prosecute any alcohol or drug abuse patient.[facility] HospitalIn the event this information is protected by the Federal Confidentiality of Alcohol and Drug Abuse Patient Records regulations: The Federal rules restrict any use of the information to criminally investigate or prosecute any alcohol or drug abuse patient.[facility] HospitalIn the event this information is protected by the Federal Confidentiality of Alcohol and Drug Abuse Patient Records regulations: The Federal rules restrict any use of the information to criminally investigate or prosecute any alcohol or drug abuse patient.[facility] HospitalIn the event this information is protected by the Federal Confidentiality of Alcohol and Drug Abuse Patient Records regulations: The Federal rules restrict any use of the information to criminally investigate or prosecute any alcohol or drug abuse patient.[facility] HospitalIn the event this information is protected by the Federal Confidentiality of Alcohol and Drug Abuse Patient Records regulations: The Federal rules restrict any use of the information to criminally investigate or prosecute any alcohol or drug abuse patient.[facility] HospitalIn the event this information is protected by the Federal Confidentiality of Alcohol and Drug Abuse Patient Records regulations: The Federal rules restrict any use of the information to criminally investigate or prosecute any alcohol or drug abuse patient.[facility] HospitalIn the event this information is protected by the Federal Confidentiality of Alcohol and Drug Abuse Patient Records regulations: The Federal rules restrict any use of the information to criminally investigate or prosecute any alcohol or drug abuse patient.[facility] HospitalIn the event this information is protected by the Federal Confidentiality of Alcohol and Drug Abuse Patient Records regulations: The Federal rules restrict any use of the information to criminally investigate or prosecute any alcohol or drug abuse patient.[facility] HospitalIn the event this information is protected by the Federal Confidentiality of Alcohol and Drug Abuse Patient Records regulations: The Federal rules restrict any use of the information to criminally investigate or prosecute any alcohol or drug abuse patient.[facility] HospitalIn the event this information is protected by the Federal Confidentiality of Alcohol and Drug Abuse Patient Records regulations: The Federal rules restrict any use of the information to criminally investigate or prosecute any alcohol or drug abuse patient.[facility] HospitalIn the event this information is protected by the Federal Confidentiality of Alcohol and Drug Abuse Patient Records regulations: The Federal rules restrict any use of the information to criminally investigate or prosecute any alcohol or drug abuse patient.[facility] HospitalIn the event this information is protected by the Federal Confidentiality of Alcohol and Drug Abuse Patient Records regulations: The Federal rules restrict any use of the information to criminally investigate or prosecute any alcohol or drug abuse patient.[facility] HospitalIn the event this information is protected by the Federal Confidentiality of Alcohol and Drug Abuse Patient Records regulations: The Federal rules restrict any use of the information to criminally investigate or prosecute any alcohol or drug abuse patient.[facility] HospitalIn the event this information is protected by the Federal Confidentiality of Alcohol and Drug Abuse Patient Records regulations: The Federal rules restrict any use of the information to criminally investigate or prosecute any alcohol or drug abuse patient.[facility] Care Teams (unrecognized sec tion and content) Die Inspector Relationship Specialty Start Date End Date Nallely Butler APRN.HAMMER SETTER [address] [place] [address] PCP - General Family Practice 07/04/20 Avtar Robertson MD [address] [place] [address] Home Care Physician Family Practice 09/16/18 Jason Alcaraz MD [address] [facility] [address] [place] [address] Consulting Infectious Diseases 09/16/18 Reyes Mancilla MD [address] [facility], [address] [place] [address] [phone] Referring Internal Medicine 09/16/18 Die Inspector Relationship Specialty Start Date End Date Nallely Butler, CATTLE SORTER.HAMMER SETTER [address] [place] [address] PCP - General Family Practice 07/04/20 Avtar Robertson MD [address] [place] [address] Home Care Physician Family Practice 09/16/18 Jason Alcaraz MD [address] [facility] [address] [place] [address] Consulting Infectious Diseases 09/16/18 Reyes Mancilla MD [address] [facility], [address] [place] [address] [phone] Referring Internal Medicine 09/16/18 Die Inspector Relationship Specialty Start Date End Date Nallely Butler, CATTLE SORTER.HAMMER SETTER [address] [place] [address] PCP - General Family Practice 07/04/20 Avtar Robertson MD [address] [place] [address] Home Care Physician Family Practice 09/16/18 Jason Alcaraz MD [address] [facility] [address] [place] [address] Consulting Infectious Diseases 09/16/18 Reyes Mancilla MD [address] [facility], [address] [place] [address] [phone] Referring Internal Medicine 09/16/18 Die Inspector Relationship Specialty Start Date End Date Nallely Butler, CATTLE SORTER.HAMMER SETTER [address] [place] [address] PCP - General Family Practice 07/04/20 Avtar Robertson MD [address] [facility] [address] Home Care Physician Family Practice 09/16/18 Jason Alcaraz MD [address] [facility] [address] [place] [address] Consulting Infectious Diseases 09/16/18 Reyes Mancilla MD [address] [facility], [address] [place] [address] [phone] Referring Internal Medicine 09/16/18 Die Inspector Relationship Specialty Start Date End Date Nallely Butler, CATTLE SORTER.HAMMER SETTER [address] [place] [address] PCP - General Family Practice 07/04/20 Avtar Robertson MD [address] [place] [address] Home Care Physician Family Practice 09/16/18 Jason Alcaraz MD [address] [facility] [address] [place] [address] Consulting Infectious Diseases 09/16/18 Reyes Mancilla MD [address] [facility], [address] [place] [address] [phone] Referring Internal Medicine 09/16/18 Die Inspector Relationship Specialty Start Date End Date Nallely Butler, CATTLE SORTER.HAMMER SETTER [address] [place] [address] PCP - General Family Practice 07/04/20 Avtar Robertson MD [address] [place] [address] Home Care Physician Family Practice 09/16/18 Jason Alcaraz MD [address] [facility] [address] [place] [address] Consulting Infectious Diseases 09/16/18 Reyes Mancilla MD [address] [facility], [address] [place] [address] [phone] Referring Internal Medicine 09/16/18 Die Inspector Relationship Specialty Start Date End Date Nallely Butler, CATTLE SORTER.HAMMER SETTER [address] [place] [address] PCP - General Family Practice 07/04/20 Avtar Robertson MD [address] [place] [address] Home Care Physician Family Practice 09/16/18 Jason Alcaraz MD [address] [facility] [address] [place] [address] Consulting Infectious Diseases 09/16/18 Reyes Mancilla MD [address] [facility], [address] [place] [address] [phone] Referring Internal Medicine 09/16/18 Die Inspector Relationship Specialty Start Date End Date Nallely Butler, CATTLE SORTER.HAMMER SETTER [address] [place] [address] PCP - General Family Practice 07/04/20 Avtar Robertson MD [address] [place] [address] Home Care Physician Family Practice 09/16/18 Jason Alcaraz MD [address] [facility] [address] [place] [address] Consulting Infectious Diseases 09/16/18 Reyes Mancilla MD [address] [facility], [address] [place], [place] [phone] Referring Internal Medicine 09/16/18 Die Inspector Relationship Specialty Start Date End Date Nallely Butler, CATTLE SORTER.HAMMER SETTER [address] [place] [address] PCP - General Family Practice 07/04/20 Avtar Robertson MD [address] [place] [address] Home Care Physician Family Practice 09/16/18 Jason Alcaraz MD [address] [facility] [address] [place] [address] Consulting Infectious Diseases 09/16/18 Reyes Mancilla MD [address] [facility], [address] [place] [address] [phone] Referring Internal Medicine 09/16/18 Die Inspector Relationship Specialty Start Date End Date Nallely Butler, CATTLE SORTER.HAMMER SETTER [address] [place] [address] PCP - General Family Practice 07/04/20 Avtar Robertson MD [address] [place] [address] Home Care Physician Family Practice 09/16/18 Jason Alcaraz MD [address] [facility] [address] [place] [address] Consulting Infectious Diseases 09/16/18 Reyes Mancilla MD [address] [facility], [address] [place] [address] [phone] Referring Internal Medicine 09/16/18 Die Inspector Relationship Specialty Start Date End Date Nallely Butler, CATTLE SORTER.HAMMER SETTER [address] [place] [address] PCP - General Family Practice 07/04/20 Avtar Robertson MD [address] [facility] [address] Home Care Physician Family Practice 09/16/18 Jason Alcaraz MD [address] [facility] [address] [place] [address] Consulting Infectious Diseases 09/16/18 Reyes Mancilla MD [address] [facility], [address] [place], [place] [phone] Referring Internal Medicine 09/16/18 Die Inspector Relationship Specialty Start Date End Date Nallely Butler, CATTLE SORTER.HAMMER SETTER [address] [place] [address] PCP - General Family Practice 07/04/20 Avtar Robertson MD [address] [facility] [place] [address] Home Care Physician Family Practice 09/16/18 Jason Alcaraz MD [address] [facility] [address] [place] [address] Consulting Infectious Diseases 09/16/18 Reyes Mancilla MD [address] [facility], [address] [place], [place] [phone] Referring Internal Medicine 09/16/18 Die Inspector Relationship Specialty Start Date End Date Nallely Butler, CATTLE SORTER.HAMMER SETTER [address] [place] [address] PCP - General Family Practice 07/04/20 Avtar Robertson MD [address] [facility] [place] [address] Home Care Physician Family Practice 09/16/18 Jason Alcaraz MD [address] [facility] [address] [place] [address] Consulting Infectious Diseases 09/16/18 Reyes Mancilla MD [address] [facility], [address] [place] [address] [phone] Referring Internal Medicine 09/16/18 Die Inspector Relationship Specialty Start Date End Date Nallely Butler, CATTLE SORTER.HAMMER SETTER [address] [place] [address] PCP - General Family Practice 07/04/20 Avtar Robertson MD [address] [place] [address] Home Care Physician Family Practice 09/16/18 Jason Alcaraz MD [address] [facility] [address] [place] [address] Consulting Infectious Diseases 09/16/18 Reyes Mancilla MD [address] [facility], [address] [place] [address] [phone] Referring Internal Medicine 09/16/18 Die Inspector Relationship Specialty Start Date End Date Nallely Butler, CATTLE SORTER.HAMMER SETTER [address] [place] [address] PCP - General Family Practice 07/04/20 Avtar Robertson MD [address] [facility] [place] [address] Home Care Physician Family Practice 09/16/18 Jason Alcaraz MD [address] [facility] [address] [place] [address] Consulting Infectious Diseases 09/16/18 Reyes Mancilla MD [address] [facility], [address] [place] [address] [phone] Referring Internal Medicine 09/16/18 Die Inspector Relationship Specialty Start Date End Date Nallely Butler, CATTLE SORTER.HAMMER SETTER [address] [place] [address] PCP - General Family Medicine 07/04/20 Avtar Robertson MD [address] [place] [address] Home Care Provider Family Medicine 09/16/18 Jason Alcaraz MD [address] [facility] [address] [place] [address] Consulting Infectious Diseases 09/16/18 Reyes Mancilla MD [address] [facility], [address] [place] [address] [phone] Referring Internal Medicine 09/16/18 Die Inspector Relationship Specialty Start Date End Date Nallely Butler, CATTLE SORTER.HAMMER SETTER [address] [place] [address] PCP - General Family Medicine 07/04/20 Avtar Robertson MD [address] [place] [address] Home Care Provider Family Medicine 09/16/18 Jason Alcaraz MD [address] [facility] [address] [place] [address] Consulting Infectious Diseases 09/16/18 Reyes Mancilla MD [address] [facility], [address] [place] [address] [phone] Referring Internal Medicine 09/16/18 Die Inspector Relationship Specialty Start Date End Date Nallely Butler, CATTLE SORTER.HAMMER SETTER [address] [place] [address] PCP - General Family Medicine 07/04/20 Avtar Robertson MD [address] [facility] [place] [address] Home Care Provider Family Medicine 09/16/18 Jason Alcaraz MD [address] [facility] [address] [place] [address] Consulting Infectious Diseases 09/16/18 Reyes Mancilla MD [address] [facility], [address] [place], [place] [phone] Referring Internal Medicine 09/16/18 Die Inspector Relationship Specialty Start Date End Date Nallely Butler, CATTLE SORTER.HAMMER SETTER [address] [place] [address] PCP - General Family Medicine 07/04/20 Avtar Robertson MD [address] [place] [address] Home Care Provider Family Medicine 09/16/18 Jason Alcaraz MD [address] [facility] [place] [address] Consulting Infectious Diseases 09/16/18 Reyes Mancilla MD [address] [facility], [address] [place], [place] [phone] Referring Internal Medicine 09/16/18 Die Inspector Relationship Specialty Start Date End Date Nallely Butler, CATTLE SORTER.HAMMER SETTER [address] [place] [address] PCP - General Family Medicine 07/04/20 Avtar Robertson MD [address] [place] [address] Home Care Provider Family Medicine 09/16/18 Jason Alcaraz MD [address] [facility] [address] [place] [address] Consulting Infectious Diseases 09/16/18 Reyes Mancilla MD [address] [facility], [address] [place] [address] [phone] Referring Internal Medicine 09/16/18 Die Inspector Relationship Specialty Start Date End Date Nallely Butler, CATTLE SORTER.HAMMER SETTER [address] [place] [address] PCP - General Family Medicine 07/04/20 Avtar Robertson MD [address] [place] [address] Home Care Provider Family Medicine 09/16/18 Jason Alcaraz MD [address] [facility] [address] [place] [address] Consulting Infectious Diseases 09/16/18 Reyes Mancilla MD [address] [facility], [address] [place] [address] [phone] Referring Internal Medicine 09/16/18 Die Inspector Relationship Specialty Start Date End Date Nallely Butler, CATTLE SORTER.HAMMER SETTER [address] [place] [address] PCP - General Family Medicine 07/04/20 Avtar Robertson MD [address] [facility] [place] [address] Home Care Provider Family Medicine 09/16/18 Jason Alcaraz MD [address] [facility] [address] [place] [address] Consulting Infectious Diseases 09/16/18 Reyes Mancilla MD [address] [facility], [address] [place] [address] [phone] Referring Internal Medicine 09/16/18 Die Inspector Relationship Specialty Start Date End Date Nallely Butler, CATTLE SORTER.HAMMER SETTER [address] [place] [address] PCP - General Family Medicine 07/04/20 Avtar Robertson MD [address] [place] [address] Home Care Provider Family Medicine 09/16/18 Jason Alcaraz MD [address] [facility]. [address] [place] [address] Consulting Infectious Diseases 09/16/18 Reyes Mancilla MD [address] [facility], [address] [place] [address] [phone] Referring Internal Medicine 09/16/18 Die Inspector Relationship Specialty Start Date End Date Nallely Butler, CATTLE SORTER.HAMMER SETTER [address] [place] [address] PCP - General Family Medicine 07/04/20 Avtar Robertson MD [address] [place] [address] Home Care Provider Family Medicine 09/16/18 Jason Alcaraz MD [address] [facility] [address] [place] [address] Consulting Infectious Diseases 09/16/18 Reyes Mancilla MD [address] [facility], [address] [place] [address] [phone] Referring Internal Medicine 09/16/18 Die Inspector Relationship Specialty Start Date End Date Nallely Butler APRN.HAMMER SETTER [address] [place] [address] PCP - General Family Medicine 07/04/20 Avtar Robertson MD [address] [facility] [place] [address] Home Care Provider Family Medicine 09/16/18 Jason Alcaraz MD [address] [facility]. [address] [place] [address] Consulting Infectious Diseases 09/16/18 Reyes Mancilla MD [address] [facility], [address] [place], [place] [phone] Referring Internal Medicine 09/16/18 Die Inspector Relationship Specialty Start Date End Date Nallely Butler, CATTLE SORTER.HAMMER SETTER [address] [place] [address] PCP - General Family Medicine 07/04/20 Avtar Robertson MD [address] [place] [address] Home Care Provider Family Medicine 09/16/18 Jason Alcaraz MD [address] [facility]. [address] [place] [address] Consulting Infectious Diseases 09/16/18 Reyes Mancilla MD [address] [facility], [address] [place], [place] [phone] Referring Internal Medicine 09/16/18 Die Inspector Relationship Specialty Start Date End Date Nallely Butler, CATTLE SORTER.HAMMER SETTER [address] [place] [address] PCP - General Family Medicine 07/04/20 Avtar Robertson MD [address] [place] [address] Home Care Provider Family Medicine 09/16/18 Jason Alcaraz MD [address] [facility] [address] [place] [address] Consulting Infectious Diseases 09/16/18 Reyes Mancilla MD [address] [facility], [address] [place] [address] [phone] Referring Internal Medicine 09/16/18 Die Inspector Relationship Specialty Start Date End Date Nallely Butler, CATTLE SORTER.HAMMER SETTER [address] [place] [address] PCP - General Family Medicine 07/04/20 Avtar Robertson MD [address] [place] [address] Home Care Provider Family Medicine 09/16/18 Jason Alcaraz MD [address] [facility] [address] [place] [address] Consulting Infectious Diseases 09/16/18 Reyes Mancilla MD [address] [facility], [address] [place] [address] [phone] Referring Internal Medicine 09/16/18 Die Inspector Relationship Specialty Start Date End Date Nallely Butler, CATTLE SORTER.HAMMER SETTER [address] [place] [address] PCP - General Family Medicine 07/04/20 Avtar Robertson MD [address] [place] [address] Home Care Provider Family Medicine 09/16/18 Jason Alcaraz MD [address] [facility] [address] [place] [address] Consulting Infectious Diseases 09/16/18 Reyes Mancilla MD [address] [facility], [address] [place] [address] [phone] Referring Internal Medicine 09/16/18 Die Inspector Relationship Specialty Start Date End Date Nallely Butler, CATTLE SORTER.HAMMER SETTER [address] [place] [address] PCP - General Family Medicine 07/04/20 Avtar Robertson MD [address] [place] [address] Home Care Provider Family Medicine 09/16/18 Jason Alcaraz MD [address] [facility] [place] [address] Consulting Infectious Diseases 09/16/18 Reyes Mancilla MD [address] [facility], [address] [place] [address] [phone] Referring Internal Medicine 09/16/18 Die Inspector Relationship Specialty Start Date End Date Nallely Butler, CATTLE SORTER.HAMMER SETTER [address] [place] [address] PCP - General Family Medicine 07/04/20 Avtar Robertson MD [address] [place] [address] Home Care Provider Family Medicine 09/16/18 Jason Alcaraz MD [address] [facility]. [address] [place] [address] Consulting Infectious Diseases 09/16/18 Reyes Mancilla MD [address] [facility], [address] [place] [address] Referring Internal Medicine 09/16/18 Die Inspector Relationship Specialty Start Date End Date Nallely Butler, CATTLE SORTER.HAMMER SETTER [address] [place] [address] PCP - General Family Medicine 07/04/20 Avtar Robertson MD [address] [facility] [address] Home Care Provider Family Medicine 09/16/18 Jason Alcaraz MD [address] [facility] [address] [place] [address] Consulting Infectious Diseases 09/16/18 Reyes Mancilla MD [address] [facility], [address] [place] [address] [phone] Referring Internal Medicine 09/16/18 Die Inspector Relationship Specialty Start Date End Date Nallely Butler, CATTLE SORTER.HAMMER SETTER [address] [place] [address] PCP - General Family Medicine 07/04/20 Avtar Robertson MD [address] [place] [address] Home Care Provider Family Medicine 09/16/18 Jason Alcaraz MD [address] [facility] [address] [place] [address] Consulting Infectious Diseases 09/16/18 Reyes Mancilla MD [address] [facility], [address] [place] [phone] Referring Internal Medicine 09/16/18 Die Inspector Relationship Specialty Start Date End Date Nallely Butler, CATTLE SORTER.HAMMER SETTER [address] [place] [address] PCP - General Family Medicine 07/04/20 Avtar Robertson MD [address] [facility] [address] Home Care Provider Family Medicine 09/16/18 Jason Alcaraz MD [address] [facility] [address] [place] [address] Consulting Infectious Diseases 09/16/18 Reyes Mancilla MD [address] [facility], [address] [place], [place] [phone] Referring Internal Medicine 09/16/18 Die Inspector Relationship Specialty Start Date End Date Nallely Butler, CATTLE SORTER.HAMMER SETTER [address] [place] [address] PCP - General Family Medicine 07/04/20 Avtar Robertson MD [address] [place] [address] Home Care Provider Family Medicine 09/16/18 Jason Alcaraz MD [address] [facility] [address] [place] [address] Consulting Infectious Diseases 09/16/18 Reyes Mancilla MD [address] [facility], [address] [place] [address] [phone] Referring Internal Medicine 09/16/18 Die Inspector Relationship Specialty Start Date End Date Nallely Butler, CATTLE SORTER.HAMMER SETTER [address] [place] [address] PCP - General Family Medicine 07/04/20 Avtar Robertson MD [address] [place] [address] Home Care Provider Family Medicine 09/16/18 Jason Alcaraz MD [address] [facility] [address] [place] [address] Consulting Infectious Diseases 09/16/18 Reyes Mancilla MD [address] [facility], [address] [place] [address] [phone] Referring Internal Medicine 09/16/18 Die Inspector Relationship Specialty Start Date End Date Nallely Butler, CATTLE SORTER.HAMMER SETTER [address] [place] [address] PCP - General Family Medicine 07/04/20 Avtar Robertson MD [address] [facility] [address] Home Care Provider Family Medicine 09/16/18 Jason Alcaraz MD [address] [facility] [address] [place] [address] Consulting Infectious Diseases 09/16/18 Reyes Mancilla MD [address] [facility], [address] [place], [place] [phone] Referring Internal Medicine 09/16/18 Die Inspector Relationship Specialty Start Date End Date Nallely Butler, CATTLE SORTER.HAMMER SETTER [address] [place] [address] PCP - General Family Medicine 07/04/20 Avtar Robertson MD [address] [place] [address] Home Care Provider Family Medicine 09/16/18 Jason Alcaraz MD [address] [facility] [address] [place] [address] Consulting Infectious Diseases 09/16/18 Reyes Mancilla MD [address] [facility], [address] [place], [place] [phone] Referring Internal Medicine 09/16/18 Die Inspector Relationship Specialty Start Date End Date Nallely Butler, CATTLE SORTER.HAMMER SETTER [address] [place] [address] PCP - General Family Medicine 07/04/20 Avtar Robertson MD [address] [place] [address] Home Care Provider Family Medicine 09/16/18 Jason Alcaraz MD [address] [facility] [address] [place] [address] Consulting Infectious Diseases 09/16/18 Reyes Mancilla MD [address] [facility], [address] [place], [place] [phone] Referring Internal Medicine 09/16/18 Die Inspector Relationship Specialty Start Date End Date Nallely Butler, CATTLE SORTER.HAMMER SETTER [address] [place] [address] PCP - General Family Medicine 07/04/20 Avtar Robertson MD [address] [place] [address] Home Care Provider Family Medicine 09/16/18 Jason Alcaraz MD [address] [facility] [address] [place] [address] Consulting Infectious Diseases 09/16/18 Reyes Mancilla MD [address] [facility], [address] [place] [address] [phone] Referring Internal Medicine 09/16/18 Die Inspector Relationship Specialty Start Date End Date Nallely Butler, CATTLE SORTER.HAMMER SETTER [address] [place] [address] PCP - General Family Medicine 07/04/20 Avtar Robertson MD [address] [place] [address] Home Care Provider Family Medicine 09/16/18 Jason Alcaraz MD [address] [facility] [address] [place] [address] Consulting Infectious Diseases 09/16/18 Reyes Mancilla MD 1 [facility], [address] [place] [address] Referring Internal Medicine 09/16/18 Die Inspector Relationship Specialty Start Date End Date Nallely Butler, PRIMO.HAMMER SETTER [address] [place] [address] PCP - General Family Medicine 07/04/20 Avtar Robertson MD [address] [place] [address] Home Care Provider Family Medicine 09/16/18 Jason Alcaraz MD [address] [place] [address]. [address] [place] [address] Consulting Infectious Diseases 09/16/18 Reyes Mancilla MD 1 [facility], [address] [place] [address] Referring Internal Medicine 09/16/18 Die Inspector Relationship Specialty Start Date End Date Nallely Butler, CATTLE SORTER.HAMMER SETTER [address] [place] [address] PCP - General Family Medicine 07/04/20 Avtar Robertson MD [address] [place], [place] 324[address] Home Care Provider Family Medicine 09/16/18 Jason Alcaraz MD [address] [facility]. [address] [place] [address] Consulting Infectious Diseases 09/16/18 Reyes Mancilla MD 1 [facility], [address] [place], [place] [phone] Referring Internal Medicine 09/16/18 Die Inspector Relationship Specialty Start Date End Date Nallely Butler, CATTLE SORTER.HAMMER SETTER [address] [place], [place] [address]6041 PCP - General Family Medicine 07/04/20 Avtar Robertson MD [address] [place], [place] [address] Home Care Provider Family Medicine 09/16/18 Jason Alcaraz MD [address] [facility] [address] [place] [address] Consulting Infectious Diseases 09/16/18 Reyes Mancilla MD [address] [facility], [address] [place] [address] Referring Internal Medicine 09/16/18 Die Inspector Relationship Specialty Start Date End Date Nallely Butler, CATTLE SORTER.HAMMER SETTER [address] [place], [place] [address]01 PCP - General Family Medicine 07/04/20 Avtar Robertson MD [address] [place], [place] 117511 Home Care Provider Family Medicine 09/16/18 Jason Alcaraz MD [address] [facility] [address] [place] [address] Consulting Infectious Diseases 09/16/18 Reyes Mancilla MD [address] [facility], [address] [place], [place] [phone] Referring Internal Medicine 09/16/18 Die Inspector Relationship Specialty Start Date End Date Avtar Robertson MD [address] [place], [place] [address]36131 Home Care Provider Family Medicine 09/16/18 Jason Alcaraz MD [address] [facility] [address] [place] [address] Consulting Infectious Diseases 09/16/18 Reyes Mancilla MD [address] [facility], [address] [place] [address] [phone] Referring Internal Medicine 09/16/18 Die Inspector Relationship Specialty Start Date End Date Avtar Robertson MD [address] [place], [place] 888601 Home Care Provider Family Medicine 09/16/18 Jason Alcaraz MD [address] [facility]. [address] [place] [address] Consulting Infectious Diseases 09/16/18 Reyes Mancilla MD [address] [facility], [address] [place] [address] [phone] Referring Internal Medicine 09/16/18 Die Inspector Relationship Specialty Start Date End Date Avtar Robertson MD [address] [place], [place] 784661 Home Care Provider Family Medicine 09/16/18 Jason Alcaraz MD [address] [facility] [address] [facility] [place] [address] Consulting Infectious Diseases 09/16/18 Reyes Mancilla MD 1 [facility], [address] [place] [address] Referring Internal Medicine 09/16/18 Team Status: Active Member Role Status Dates Dr. Peter Robertson MD Family Provider Active Nallely Butler SAND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, SAND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-C Primary Care Provider Active Team Status: Active Member Role Status Dates Nallely Butler SAND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, SAND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-C Primary Care Provider Active Dr. Adithya Chan MD Emergency Provider Active Dr. Asaf Johnston DO Admit Provider, Attending Pr ovider Active Team Status: Active Member Role Status Dates Nallely Butler NP, SAND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-C Primary Care Provider Active Dr. Adithya Chan MD Emergency Provider Active Dr. Asaf Johnston , Admit Provider, Other Provid er Active Dr. Lupillo Jovel MD Attending Provider, Other Provid er Active Dr. Dick Godwin DO Other Provider Active Dr. Katerina Ruiz MD Other Provider Active Dr. Hari Hall MD Other Provider Active Jessy De NP, SAND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-C Other Provider Active Dr. Asaf Bernal MD Other Provider Active Team Status: Active Member Role Status Dates Nallely Butler NP, SAND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-C Primary Care Provider Active Dr. Savanna Nelson MD Attending Provider Active Team Status: Active Member Role Status Dates Nallely Butler SAND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, SAND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-C Primary Care Provider Active Dr. Adithya Chan MD Emergency Provider Active Dr. Asaf Johnston , Admit Provider, Other Provid er Active Dr. Lupillo Jovel MD Other Provider Active Dr. Dick Godwin , Other Provider Active Dr. Katerina Ruiz MD Other Provider Active Dr. Hari Hall MD Other Provider Active Jessy De NP, SAND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-C Other Provider Active Dr. Asaf Bernal MD Attending Provider, Other Provid er Active Team Status: Active Member Role Status Dates Nallely Butler NP, SAND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-C Primary Care Provider Active Dr. Adithya Chan MD Emergency Provider Active Dr. Asaf Johnston , DO Admit Provider, Other Provid er Active Dr. Lupillo Jovel MD Other Provider Active Dr. Dick Godwin DO Attending Provider, Other Provide r Active Dr. Katerina Ruiz MD Other Provider Active Dr. Hari Hall MD Other Provider Active Jessy De NP, SAND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-C Other Provider Active Dr. Radha Rodríguez MD Other Provider Active Dr. Asaf Bernal MD Other Provider Active Team Status: Active Member Role Status Dates Nallely Butler SAND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, SAND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-C Primary Care Provider Active Dr. Adithya Chan MD Emergency Provider Active Dr. Asaf Johnston , DO Admit Provider, Other Provid er Active Dr. Lupillo Jovel MD Other Provider Active Dr. Dick Godwin DO Other Provider Active Dr. Katerina Ruiz MD Other Provider Active Dr. Hari Hall MD Other Provider Active Jessy De SAND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, SAND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-C Other Provider Active Dr. Radha Rodríguez MD Attending Provider, Other Prov ider Active Dr. Asaf Bernal MD Other Provider Active Team Status: Active Member Role Status Dates Nallely Butler NP, SAND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-C Primary Care Provider Active Dr. Adithya Chan MD Emergency Provider Active Dr. Asaf Johnston DO Admit Provider, Other Provid er Active Dr. Radha Rodríguez MD Other Provider Active Dr. Asaf Bernal MD Other Provider Active Dr. Dick Godwin DO Attending Provider Active Team Status: Active Member Role Status Dates Nallely Butler NP, SAND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-C Primary Care Provider Active Dr. Adithya Chan MD Emergency Provider Active Dr. Asaf Johnston , DO Admit Provider, Other Provid er Active Dr. Radha Rodríguez MD Attending Provider, Other Prov ider Active Dr. Asaf Bernal MD Other Provider Active Team Status: Inactive Member Role Status Destiny Butler NP, SAND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-C Primary Care Provider Active Dr. Adithya Chan MD Emergency Provider Active Dr. Asaf Johnston DO Admit Provider, Other Provid er Active Dr. Radha Rdoríguez MD Attending Provider Active Dr. Asaf Bernal MD Other Provider Active Die Inspector Relationship Specialty Start Date End Date Avtar Robertson MD [address] [place] [address] Home Care Provider Family Medicine 09/16/18 Jason Alcaraz MD [address] [facility] [address] [place] [address] Consulting Infectious Diseases 09/16/18 Reyes Mancilla MD 1 [facility], [address] [place] [address] Referring Internal Medicine 09/16/18 Team Status: Active Member Role Status Dates Dr. Peter Robertson MD Family Provider Active Ana Granados [facility], SAND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-C Primary Care Provider Active Team Status: Active Member Role Status Dates Nallely Butler SAND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, SAND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-C Primary Care Provider Active Dr. Adithya Chan MD Emergency Provider Active Dr. Asaf Johnston , Admit Provider, Other Provid er Active Dr. Lupillo Jovel MD Attending Provider, Other Provid er Active Dr. Dick Godwin DO Other Provider Active Dr. Katerina Ruiz MD Other Provider Active Dr. Hari Hall MD Other Provider Active Jessy De SAND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, SAND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-C Other Provider Active Dr. Asaf Bernal MD Other Provider Active Dr. Radha Rodríguez MD Referring Provider Active Team Status: Active Member Role Status Dates Nallely Butler NP, SAND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-C Primary Care Provider Active Dr. Adithya Chan MD Emergency Provider Active Dr. Asaf Johnston DO Admit Provider, Other Provid er Active Dr. Lupillo Jovel MD Other Provider Active Dr. Dick Godwin DO Attending Provider, Other Provide r Active Dr. Katerina Ruiz MD Other Provider Active Dr. Hari Hall MD Other Provider Active Jessy De NP, SAND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-C Other Provider Active Dr. Radha Rodríguez MD Referring Provider, Other Prov ider Active Dr. Asaf Bernal MD Other Provider Active Team Status: Active Member Role Status Dates Nallely Butler NP, SAND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-C Primary Care Provider Active Dr. Adithya Chan MD Emergency Provider Active Dr. Asaf Johnston , Admit Provider, Other Provid er Active Dr. Radha Rodríguez MD Referring Provider, Other Prov ider Active Dr. Asaf Bernal MD Other Provider Active Dr. Dick Godwin DO Attending Provider Active Team Status: Inactive Member Role Status Dates Dr. Maynor Garcia , Emergency Provider Active Ana Granados VS, SAND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-C Primary Care Provider Active Die Inspector Relationship Specialty Start Date End Date Avtar Robertson MD [address] [place] [address] Home Care Provider Family Medicine 09/16/18 Jason Alcaraz MD [address] [facility]. [address] [place] [address] Consulting Infectious Diseases 09/16/18 Reyes Mancilla MD [address] [facility], [address] [place] [address] [phone] Referring Internal Medicine 09/16/18 Die Inspector Relationship Specialty Start Date End Date Avtar Robertson MD [address] [place] [address] Home Care Provider Family Medicine 09/16/18 Jason Alcaraz MD [facility]. [address] [place] [address] Consulting Infectious Diseases 09/16/18 Reyes Mancilla MD [address] [facility], [address] [place] [address] [phone] Referring Internal Medicine 09/16/18 Die Inspector Relationship Specialty Start Date End Date Avtar Robertson MD [address] [place] [address] Home Care Provider Family Medicine 09/16/18 Jason Alcaraz MD [address] [place] [address] [address] [place] [phone] Consulting Infectious Diseases 09/16/18 Reyes Mancilla MD [address] [facility], [address] [place] [address] [phone] Referring Internal Medicine 09/16/18 Die Inspector Relationship Specialty Start Date End Date Avtar Robertson MD [address] [place], [place] 16[address] Home Care Provider Family Medicine 09/16/18 Jason Alcaraz MD [address] [place] [address]. [address] [place] [address] Consulting Infectious Diseases 09/16/18 Reyes Mancilla MD [address] [facility], [address] [place] [address] [phone] Referring Internal Medicine 09/16/18 Die Inspector Relationship Specialty Start Date End Date Avtar Robertson MD [address] [place] [address] Home Care Provider Family Medicine 09/16/18 Jason Alcaraz MD [address] [place] [address]. [address] [place] [address] Consulting Infectious Diseases 09/16/18 Reyes Mancilla MD [address] [facility], [address] [place] [address] [phone] Referring Internal Medicine 09/16/18 Die Inspector Relationship Specialty Start Date End Date Avtar Robertson MD [address] [place], [place] [address] Home Care Provider Family Medicine 09/16/18 Jason Alcaraz MD [address] [facility] [address] [place] [address] Consulting Infectious Diseases 09/16/18 Reyes Mancilla MD [address] [facility] [address] [facility], [address] [place] [address] [phone] Referring Internal Medicine 09/16/18 Die Inspector Relationship Specialty Start Date End Date Avtar Robertson MD [address] [place], [place] [address] Home Care Provider Family Medicine 09/16/18 Jason Alcaraz MD [address] [place] [address]. [address] [place] [address] Consulting Infectious Diseases 09/16/18 Reyes Mancilla MD [address] [facility], [address] [place] [address] [phone] Referring Internal Medicine 09/16/18 Die Inspector Relationship Specialty Start Date End Date Avtar Robertson MD [address] [place], [place] 004[address] Home Care Provider Family Medicine 09/16/18 Jason Alcaraz MD [address]33 [facility]. [address] [place] [phone] Consulting Infectious Diseases 09/16/18 Reyes Mancilla MD [address] [facility], [address] [place] [address] [phone] Referring Internal Medicine 09/16/18 Die Inspector Relationship Specialty Start Date End Date Avtar Robertson MD [address] [place], [place] [address]471 Home Care Provider Family Medicine 09/16/18 Jason Alcaraz MD [address] [facility] [address] [place] [address] Consulting Infectious Diseases 09/16/18 Reyes Mancilla MD [address] [facility], [address] [place] [address] [phone] Referring Internal Medicine 09/16/18 Die Inspector Relationship Specialty Start Date End Date Avtar Robertson MD [address] [place], [place] 91028[address] Home Care Provider Family Medicine 09/16/18 Jason Alcaraz MD [address] [facility] [address] [place] [phone] Consulting Infectious Diseases 09/16/18 Reyes Mancilla MD [address] [facility], [address] [place] [address] [phone] Referring Internal Medicine 09/16/18 Die Inspector Relationship Specialty Start Date End Date Avtar Robertson MD [address] [place], [place] [id number] Home Care Provider Family Medicine 09/16/18 Jason Alcaraz MD [address] [facility] [address] [place] [phone] Consulting Infectious Diseases 09/16/18 Reyes Mancilla MD [address] [facility] [address] [facility], [address] [place] [address] [phone] Referring Internal Medicine 09/16/18 Die Inspector Relationship Specialty Start Date End Date Avtar Robertson MD [address] [place], [place] 547[address] Home Care Provider Family Medicine 09/16/18 Jason Alcaraz MD [address] [place] [address] [address] [place] [phone] Consulting Infectious Diseases 09/16/18 Reyes Mancilla MD [address] [facility] [address] [facility], [address] [place] [address] [phone] Referring Internal Medicine 09/16/18 Die Inspector Relationship Specialty Start Date End Date Nallely Butler APRN.CNP [address] [place], [place] [id number] PCP - General Family Medicine 07/04/20 01/19/23 Avtar Robertson MD [address] [place], [place] [id number] Home Care Provider Family Medicine 09/16/18 Jason Alcaraz MD [address] [facility] [address] [place] [phone] Consulting Infectious Diseases 09/16/18 Reyes Mancilla MD [address] [facility] [address] [facility], [address] [place], [place] [phone] Referring Internal Medicine 09/16/18 Die Inspector Relationship Specialty Start Date End Date Avtar Robertson MD [address] [place], [place] 895091 PCP - General Family Medicine 11/20/18 07/03/20 Avtar Robertson MD [address] [place], [place] 348441 Home Care Provider Family Medicine 09/16/18 Jason Alcaraz MD [address] [facility] [address] [place] [phone] Consulting Infectious Diseases 09/16/18 Reyes Mancilla MD [address] [facility] [address] [facility], [address] [place], [place] [phone] Referring Internal Medicine 09/16/18 Die Inspector Relationship Specialty Start Date End Date Ana GranadosMARIE [address] [place], [place] 026381 PCP - General Family Medicine 02/24/24 Avtar Robertson MD [address] [place] [address] Home Care Provider Family Medicine 09/16/18 Jason Alcaraz MD [address] [facility] [address] [place] [address] Consulting Infectious Diseases 09/16/18 Reyes Mancilla MD 1 [facility], [address] [place] [address] [phone] Referring Internal Medicine 09/16/18 Die Inspector Relationship Specialty Start Date End Date Ana Granados CNP [address] [place] [address] PCP - General Family Medicine 02/24/24 Avtar Robertson MD [address] [place] [address] Home Care Provider Family Medicine 09/16/18 Jason Alcaraz MD [address] [place] [address] Consulting Infectious Diseases 09/16/18 Reyes Mancilla MD 1 [facility], [address] [place] [address] Referring Internal Medicine 09/16/18 Reason for Visit (unrecogniz ed section and content) Reason Comments Follow Up Specialty Diagnoses / Procedures Referred By Tj hawkins Referred To Contact Psychiatry / ADULT PSYCHIATRY Diagnoses med check Procedures VIDEO PSYC/PSYL EST Elin Dotson, CATTLE SORTER.HAMMER SETTER [address] [place] [address] Elin Dotson, CATTLE SORTER.HAMMER SETTER [address] [place] [address] Referral ID Status Reason Start Date Expiration Date V isits Requested Visits Authorized [id number] Pending Review 07/14/2022 10/12/2022 1 1 Reason Onset Date Comments Refill Request 07/13/2021 Reason Onset Date Comments Refill Request 07/27/2021 Reason Comments Refill Request Reason Onset Date Comments Refill Request 08/21/2021 Reason Comments Anxiety Depression Follow Up Reason Onset Date Comments Refill Request 09/10/2021 Reason Comments CMN- PAP supplies [employer] Reason Onset Date Comments Refill Request 10/20/2021 Reason Comments Cough Cough, congestion, S T, nausea and ear pain x 2 days Reason Comments Diarrhea Ear pressure in both ears, stomach pain x 1 week Reason Onset Date Comments Refill Request 11/25/2021 Reason Comments Urinary Frequency Frequency, urgency a nd burning, low back pain x 2 days Reason Comments Urinary Problem Reason Comments Vaginal Discharge Vaginal discharge x 1 day Reason Comments Results Orders Reason Comments Results Reason Onset Date Comments Refill Request 12/02/2021 Reason Comments Weight Problem Wants to restart [employer] pe[employer] Reason Onset Date Comments Refill Request 01/15/2022 Reason Onset Date Comments Refill Request 01/20/2022 Reason Onset Date Comments Refill Request 01/21/2022 Reason Onset Date Comments Refill Request 01/21/2022 Reason Comments Ear Pain Bilateral ear pain, congestion and dizziness x 1 day Reason Comments F/U 1 month Reason Onset Date Comments Refill Request 02/18/2022 Reason Comments Left Knee Pain Reason Onset Date Comments Refill Request 03/02/2022 Reason Onset Date Comments Refill Request 03/02/2022 Reason Onset Date Comments Refill Request 03/21/2022 Reason Onset Date Comments Refill Request 04/02/2022 Reason Comments Recheck Follow up Reason Comments Urinary Frequency Frequency, burning a nd back pain x 1 week Reason Onset Date Comments Refill Request 04/21/2022 Reason Comments Well Woman Reason Comments Vaginal Discharge Reason Onset Date Comments Refill Request 05/26/2022 Reason Comments Sinus Problem Reason Onset Date Comments Refill Request 06/09/2022 Reason Onset Date Comments Refill Request 07/08/2022 Reason Comments CMN- PAP supplies [employer]- Reason Onset Date Comments Refill Request 08/26/2022 Reason Onset Date Comments Refill Request 08/22/2022 Refill Request 09/11/2022 Reason Comments Sinus Problem Chest congestion, ey e pain, sore throat x 5 days Reason Comments Weight Problem Reason Comments No Show Reason Onset Date Comments Refill Request 12/14/2022 Reason Onset Date Comments Refill Request 01/20/2023 Reason Onset Date Comments Refill Request 04/28/2023 Reason Comments Urinary Frequency With low back pain, burning x1 day Reason Comments Ear Pain Bilateral ear pain a nd congestion x 2 days Reason Onset Date Comments Refill Request 07/02/2023 Reason Comments Urinary Frequency low back pain, burni ng with urination x 2 days Reason Onset Date Comments Refill Request 08/04/2023 Reason Comments Orders Received fax from Ion knutson at [facility] for updated CPAP Rx. Faxed to Sleep Medicine at [facility] per provider request. Provider back in office 08/24/23 Reason Comments Sore Throat Congestion, bilatera l ear issues x 2 days Reason Comments Orders Received faxed reque st for office note and signed CMN from [facility]. Placed on [employer]'s desk for signature and review. Reason Comments Orders Faxed and received c onfirmation of signed CMN and office note attention to Janey at [facility] on 09.14.23 at [phone] Reason Comments Orders Received request fro m [facility] for re-signing of previously sent order due to paperwork. Placed on [employer] desk for signature and review. Reason Comments Orders Faxed signed CPAP or mady attention Janey at [facility]. Received confirmation. [phone] Reason Comments Appointment Reason Onset Date Comments Refill Request 11/06/2023 Reason Comments Orders Faxed most recent of fice note (05/09/2021) to Carolann at [facility] at [phone]. Informed DME that this note is the last and most recent for the patient. Reason Comments Radiology XR Reason Comments Cough Cough, congestion, b ilateral ear pain and ST x 3 days Reason Comments Patient Update Orders [facility] CPAP order Goals (unrecognized section and content) Goals may be documented in a n alternate section FOR RECORDS PERTAINING TO PATIENTS WHO ARE OR HAVE BEEN ENROLLED IN A CHEMICAL DEPENDENCY/SUBSTANCEABUSE PROGRAM, SOME INFORMATION MAY BE OMITTED. This clinical summary was aggregated from multiple sources. Caution should be exercised in using it in the provision of clinical care. This summary normalizes information from multiple sources, and as a consequence, information in this document may materially change the coding, format and clinical context of patient data. In addition, data may be omitted in some cases. CLINICAL DECISIONS SHOULD BE BASED ON THE PRIMARY CLINICAL RECORDS. [facility] [employer] [facility]. provides no warranty or guarantee of the accuracy or completeness of information in this document.
[2025-01-29 21:48] VITALS: BP 132/79; PULSE 77; RESP 18; TEMP 36.7; O2SAT 99
== END 2025-01-29 21:54 | disposition home or self-care (01) ==
PROVIDERS: Emergency Provider Emergency Medicine; PCP Nurse Practitioner Family; Visit Provider Emergency Medicine
DX: J06.9 Acute upper respiratory infection, unspecified (principal); E11.9 Type 2 diabetes mellitus without complications; I10 Essential (primary) hypertension; E78.00 Pure hypercholesterolemia, unspecified; F17.210 Nicotine dependence, cigarettes, uncomplicated; Z79.51 Long term (current) use of inhaled steroids; Z79.899 Other long term (current) drug therapy; Z86.718 Personal history of other venous thrombosis and embolism
CPT/HCPCS: 96360; 71046; 80048; 85025; 94640; 99283; A4216